=== PATIENT | female | born 1950 | race African-American/Black ===

== ENCOUNTER 2017-09-16 15:17 | Inpatient (IN) | payer MEDICARE ==
[~2017-09-16] VITALS: Ht 157.5 cm; Wt 97.2 kg
[~2017-09-16 15:17] MED LIST: AMLO10TA2 PO; GEMF600T PO; GLIP5TAB8 PO; LISI40TA PO
[2017-09-16 15:18] VITALS: BP 126/63; PULSE 40; PULSE 70; RESP 17; TEMP 97.5; O2SAT 95
[2017-09-16] MEDS ORDERED: SODIUM CHLOR 0.9% 1000 ML INJ 1,000 ML IV ONE ×2 (17:10→20:15)
[2017-09-16] MEDS ORDERED: MORPHINE SULFATE 4 MG/ML INJ IV PUSH ONE ×2 (17:15→18:00)
[2017-09-16] MEDS ORDERED: ONDANSETRON HCL 4 MG/2 ML VIAL IV PUSH ONE (17:15)
--- NOTE | 2017-09-16 17:17 | PD ---
HPI Chief Complaint: Complaint Time Seen by Provider: 17:02 Travel History International Travel<30 days: No Contact w/Intl Traveler<30days: No Traveled to known affect area: No History of Present Illness HPI 67-year-old female that presents to the ED for evaluation of right flank pain and right lower quadrant abdominal pain with dysuria and polyuria. Per patient she's had this since yesterday. She has a history of polynephritis and urinary tract infections. She denies any surgeries to her abdomen. No history of kidney stones. Per patient the pain radiates from the back to the front. Sharp. Taking Tylenol and Motrin with minimal relief. She has a history of diabetes and hypertension. Other medical issues. She states that the pain currently is 7 out of 10. Sharp. Gets worse when urinating. Denies any vaginal discharge or bowel movement issues. States compliance with her diabetic medications. PFSH Past Medical History Arthritis: No Asthma: No Autoimmune Disease: No Blood Disorders: No Anxiety: No Depression: No Heart Rhythm Problems: No Cancer: No Cardiovascular Problems: Yes High Cholesterol: Yes Chemotherapy: No Chest Pain: No Congestive Heart Failure: No COPD: No Cerebrovascular Accident: No Diabetes: Yes Patient Takes Glucophage: Yes Diminished Hearing: No Endocrine: Yes Gastrointestinal Disorders: Yes GERD: No Genitourinary: Yes (ABDOMINAL PAIN PRESENTLY ON LEFT ) Headaches: Yes Hiatal Hernia: No Heparin Induced Thrombocytopen: No Hypertension: Yes Immune Disorder: No Implanted Vascular Access Dvce: No Kidney Stones: No Musculoskeletal: No Neurologic: Yes Psychiatric: No Reproductive: No Respiratory: No Immunizations Current: No Migraines: No Radiation Therapy: No Renal Failure: No Seizures: No Sickle Cell Disease: No Sleep Apnea: No Thyroid Disease: No Ulcer: No ?: Not Menopausal: Yes Past Surgical History Abdominal Surgery: No AICD: No Arteriovenous Shunt: No Cardiac Surgery: No Section: Yes Ear Surgery: No Endocrine Surgery: No Eye Surgery: No Genitourinary Surgery: No Gynecologic Surgery: Yes ( 1990) Insulin Pump: No Joint Replacement: No Neurologic Surgery: No Oral Surgery: No Pacemaker: No Thoracic Surgery: No Other Surgery: Yes (CSECT) Social History Alcohol Use: No Tobacco Use: No Substance Use: No Allergies-Medications (Allergen,Severity, Reaction): Coded Allergies: metformin (Unverified Allergy, Severe, Numbness, 07/12/17) clonidine (Unverified Allergy, Unknown, 07/12/17) *MDRO Multi-Drug Resistant Organism (Verified Adverse Reaction, Unknown, 11/12/16) MRSA (buttock wound) - 11/2014 Reported Meds & Prescriptions Reported Meds & Active Scripts Active Glipizide 5 Mg Tab 5 Mg PO DAILY Take 30 minutes before a meal Lisinopril 40 Mg Tab 40 Mg PO DAILY Amlodipine (Amlodipine Besylate) 10 Mg Tab 10 Mg PO DAILY Gemfibrozil 600 Mg Tab 300 Mg PO BIDAC Take 30 minutes prior to breakfast and dinner. Review of Systems Except as stated in HPI: all other systems reviewed are Neg Physical Exam Narrative GENERAL: SKIN: Warm and dry. HEAD: Atraumatic. Normocephalic. EYES: Pupils equal and round. No scleral icterus. No injection or drainage. ENT: No nasal bleeding or discharge. Mucous membranes pink and moist. Tongue is midline. No uvula deviation. NECK: Trachea midline. No JVD. CARDIOVASCULAR: Regular rate and rhythm. No murmurs, S3, S4. RESPIRATORY: No accessory muscle use. Clear to auscultation. Breath sounds equal bilaterally. GASTROINTESTINAL: Abdomen soft, non-tender, nondistended. Hepatic and splenic margins not palpable. MUSCULOSKELETAL: Extremities without clubbing, cyanosis, or edema. No obvious deformities. Full range of motion of the upper and lower extremities bilaterally. 2+ pulses bilaterally. 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 NEUROLOGICAL: Awake and alert. No obvious cranial nerve deficits. Motor grossly within normal limits. Five out of 5 muscle strength in the arms and legs. Normal speech. PSYCHIATRIC: Appropriate mood and affect; insight and judgment normal. Data Data Last Documented VS Vital Signs Date Time Temp Pulse Resp B/P (MAP) Pulse Ox O2 Delivery O2 Flow Rate FiO2 09/16/17 17:09 89 18 09/16/17 15:18 97.5 126/63 (84) 95 Orders Orders Complete Blood Count With Diff (09/16/17 17:10) Comprehensive Metabolic Panel (09/16/17 17:10) Urinalysis - C+S If Indicated (09/16/17 17:10) Ecg Monitoring (09/16/17 17:10) Iv Access Insert/Monitor (09/16/17 17:10) Morphine Inj (Morphine Inj) (09/16/17 17:15) Ondansetron Inj (Zofran Inj) (09/16/17 17:15) Sodium Chlor 0.9% 1000 Ml Inj (Ns 1000 M (09/16/17 17:10) Lipase (09/16/17 17:10) Ct Abd/Pel W/O Iv Contrast (09/16/17 ) Labs Laboratory Tests Test 09/16/17 17:22 White Blood Count 19.2 TH/MM3 Red Blood Count 3.85 MIL/MM3 Hemoglobin 11.4 GM/DL Hematocrit 34.8 % Mean Corpuscular Volume 90.5 FL Mean Corpuscular Hemoglobin 29.7 PG Mean Corpuscular Hemoglobin Concent 32.8 % Red Cell Distribution Width 13.3 % Platelet Count 275 TH/MM3 Mean Platelet Volume 8.2 FL Neutrophils (%) (Auto) 94.2 % Lymphocytes (%) (Auto) 3.5 % Monocytes (%) (Auto) 1.5 % Eosinophils (%) (Auto) 0.4 % Basophils (%) (Auto) 0.4 % Neutrophils # (Auto) 18.1 TH/MM3 Lymphocytes # (Auto) 0.7 TH/MM3 Monocytes # (Auto) 0.3 TH/MM3 Eosinophils # (Auto) 0.1 TH/MM3 Basophils # (Auto) 0.1 TH/MM3 CBC Comment AUTO DIFF Differential Total Cells Counted 100 Neutrophils % (Manual) 54 % Band Neutrophils % 35 % Lymphocytes % 4 % Monocytes % 1 % Neutrophils # (Manual) 18.2 TH/MM3 Metamyelocytes 5 % Myelocytes 1 % Differential Comment FINAL DIFF MANUAL Toxic Granulation 1+ Toxic Vacuolation Dohle Bodies PRESENT Platelet Estimate NORMAL Platelet Morphology Comment NORMAL Urine Color BROWN Urine Turbidity CLOUDY Urine pH 5.5 Urine Specific [place] 1.028 Urine Protein 100 mg/dL Urine Glucose (UA) 70 mg/dL Urine Ketones NEG mg/dL Urine Occult Blood MOD Urine Nitrite POS Urine Bilirubin NEG Urine Urobilinogen LESS THAN 2.0 MG/DL Urine Leukocyte Esterase LARGE Urine RBC 33 /hpf Urine WBC /hpf Urine WBC Clumps FEW Urine Squamous Epithelial Cells 8 /hpf Urine Bacteria FEW /hpf Microscopic Urinalysis Comment CULTURE INDICATED Blood Urea Nitrogen 49 MG/DL Creatinine 2.88 MG/DL Random Glucose 579 MG/DL Total Protein 7.4 GM/DL Albumin 2.5 GM/DL Calcium Level 9.4 MG/DL Alkaline Phosphatase 168 U/L Aspartate Amino Transf (AST/SGOT) 40 U/L Alanine Aminotransferase (ALT/SGPT) 33 U/L Total Bilirubin 0.3 MG/DL Sodium Level 127 MEQ/L Potassium Level 4.3 MEQ/L Chloride Level 91 MEQ/L Carbon Dioxide Level 22.5 MEQ/L Anion Gap 14 MEQ/L Estimat Glomerular Filtration Rate 20 ML/MIN Lipase 128 U/L MDM Medical Decision Making Medical Screen Exam Complete: Yes Emergency Medical Condition: Yes Medical Record Reviewed: Yes Interpretation(s) CBC & BMP Diagram 09/16/17 17:22 Total Protein 7.4, Albumin 2.5 L, Calcium Level 9.4, Alkaline Phosphatase 168 H , Aspartate Amino Transf (AST/SGOT) 40 H, Alanine Aminotransferase (ALT/SGPT) 33 , Total Bilirubin 0.3 Last Impressions Abdomen/Pelvis CT 09/16/17 0000 Signed Impressions: Service Date/Time: Saturday, September 16, 2017 17:27 - CONCLUSION: 1. 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 No obstructing stone or mass observed. Air is seen throughout the right kidney parenchyma, collecting system, and into the renal vein. A small amount of air is seen involving the upper pole of the left kidney near the hilum likely extension from air within the inferior vena cava. There is mild hydronephrosis and hydroureter on the right. No obstruction on the left. Corey Millan Jr., MD UA shows UTI Differential Diagnosis Pyelonephritis versus kidney stone versus UTI versus less likely appendicitis Narrative Course 67-year-old female that presents to the ED for evaluation of right flank pain. Patient was properly examined and was found to have signs and symptoms consistent with appears to be possible kidney stone. Labs and imaging were ordered. Patient was given IV pain medications and fluids. Labs and imaging showed UTI what appears to be pyelonephritis. I go called by Dr. Millan for radiology who was concerned about possible gangrene of the tinea recommend a urology consult. I spoke with Dr. Ramirez who agrees to see the patient while the patient is admitted. Patient was admitted to residents who agrees to admission. Patient was started IV antibiotics as per my attending Dr Reese's recommendations. Patient was given IV fluids as well as subcutaneous insulin for her elevated blood sugars. Sepsis Criteria SIRS Criteria (2 or more): WBC > 52093, < 4000 or > 10% bands Diagnosis Primary Impression: Pyelonephritis Additional Impressions: Diabetes mellitus Leukocytosis Qualified Codes: D72.825 - Bandemia Sepsis Qualified Codes: A41.9 - Sepsis, unspecified organism Admitting Information Admitting Physician Requests: Admit Manny Macario Sep 16, 2017 17:17
[2017-09-16 17:35] LABS: AUTOMATED NEUTROPHIL # 18.1 TH/MM3 (1.8-7.7); BASOPHIL # 0.1 TH/MM3 (0-0.2); BASOPHIL % 0.4 % (0.0-2.0); EOSINOPHIL # 0.1 TH/MM3 (0-0.4); EOSINOPHIL % 0.4 % (0.0-4.0); HEMATOCRIT 34.8 % (35.0-46.0); LYMPH % 3.5 % (9.0-44.0); LYMPHOCYTE # 0.7 TH/MM3 (1.0-4.8); MEAN CELL VOLUME 90.5 FL (80.0-100.0); MEAN CORPUSCULAR HEMOGLOBIN 29.7 PG (27.0-34.0); MEAN CORPUSCULAR HGB CONC 32.8 % (32.0-36.0); MONO % 1.5 % (0.0-8.0); NEUT % 94.2 % (16.0-70.0); PLATELET COUNT 275 TH/MM3 (150-450); RED BLOOD COUNT 3.85 MIL/MM3 (4.00-5.30); RED CELL DISTRIBUTION WIDTH 13.3 % (11.6-17.2); WHITE BLOOD COUNT 19.2 TH/MM3 (4.0-11.0)
[2017-09-16 17:39] LABS: HEMO FLAGS AUTO DIFF
[2017-09-16 17:40] LABS: BACTERIA, URINE FEW /hpf; BLOOD, URINE MOD (NEG); COMMENT (UR) CULTURE INDICATED; CULTURE IF INDICATED CULTURE INDICATED; GLUCOSE,URINE 70 mg/dL (NEG); KETONE, URINE NEG (NEG); NITRITE,URINE POS (NEG); PH, URINE 5.5 (5.0-8.5); SQUAMOUS EPITHELIAL CELL URINE 8 /hpf (0-5)
[2017-09-16 18:00] LABS: URINE COLOR BROWN (YELLW/STRAW)
[2017-09-16] MEDS ORDERED: AMPICILLIN-SULBACTAM INJ 3 GM in SODIUM CHLORIDE 0.9% INJ 100 ML IV ONE (18:00)
--- NOTE | 2017-09-16 18:00 | RADRPT ---
EXAM DATE/TIME: 09/16/2017 17:27 [facility] COMPARISON: No previous studies available for comparison. INDICATIONS : Abdominal pain, painful urination. ORAL CONTRAST: No oral contrast ingested. RADIATION DOSE: 8.96 CTDIvol (mGy) MEDICAL HISTORY : Cardiovascular disease. Diabetes SURGICAL HISTORY : None. ENCOUNTER: Initial ACUITY: 1 day PAIN SCALE: 8/10 LOCATION: Right abdominal. TECHNIQUE: Volumetric scanning of the abdomen and pelvis was performed. Using automated exposure control and ad justment of the mA and/or kV according to patient size, radiation dose was kept as low as reasonably achievable to obtain optimal diagnostic quality images. DICOM format image data is available electro nically for review and comparison. FINDINGS: LOWER LUNGS: The visualized lower lungs are clear. LIVER: Homogeneous density without lesion. There is no dilation of the biliary tree. No calcified gallston es. SPLEEN: Normal size without lesion. PANCREAS: Within normal limits. KIDNEYS: The right kidney is enlarged. Air is seen throughout the parenchyma as well as the collecting system. Air is also seen extending into the renal vein reaching the level of the IVC. There is mild strandin g in the adjacent fat surrounding the right kidney. Mild hydronephrosis and hydroureter. No obstructi ng lesion is seen. No obstructing stone. A trace amount of air is seen involving the hilum of the lef t kidney. No air within the parenchyma of the left kidney. No stones involving either kidney. ADRENAL GLANDS: Within normal limits. VASCULAR: There is no aortic aneurysm. BOWEL/MESENTERY: The stomach, small bowel, and colon demonstrate no acute abnormality. There is no free intraperitone al air or fluid. ABDOMINAL WALL: Within normal limits. RETROPERITONEUM: There is no lymphadenopathy. BLADDER: No wall thickening or mass. No stones or air within the lumen. REPRODUCTIVE: Within normal limits. The uterus is anteverted. INGUINAL: There is no lymphadenopathy or hernia. MUSCULOSKELETAL: Within normal limits for patient age. CONCLUSION: 1. 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 No obstructing stone or mass observed . Air is seen throughout the right kidney parenchyma, collecting system, and into the renal vein. A s mall amount of air is seen involving the upper pole of the left kidney near the hilum likely extensio n from air within the inferior vena cava. There is mild hydronephrosis and hydroureter on the right. No obstruction on the left. Corey Millan Jr., MD on September 16, 2017 at 17:45 Board Certified Radiologist. This report was verified electronically.
[2017-09-16 18:13] LABS: ALKALINE PHOSPHATASE 168 U/L (45-117); ALT (GPT) 33 U/L (10-53); ANION GAP 14 MEQ/L (5-15); AST (GOT) 40 U/L (15-37); BICARBONATE 22.5 MEQ/L (21.0-32.0); BLOOD UREA NITROGEN 49 MG/DL (7-18); CHLORIDE 91 MEQ/L (98-107); GLOMERULAR FILTRATION RATE 20 ML/MIN (>89); POTASSIUM 4.3 MEQ/L (3.5-5.1); SODIUM (NA) 127 MEQ/L (136-145); TOTAL BILIRUBIN ADULT 0.3 MG/DL (0.2-1.0)
[2017-09-16 18:23] LABS: BANDS 35 % (0-6); METAMYELOCYTES 5 % (0-1); MYELOCYTES 1 % (0-0); NEUTROPHIL # MANUAL DIFF 18.2 TH/MM3 (1.8-7.7); POLYS (SEG NEUTROPHILS) 54 % (16-70); WBC DIFF SAMPLE 100
[2017-09-16 18:24] LABS: DOHLE BODIES PRESENT (NONE SEEN); PLATELET ESTIMATE SMEAR NORMAL (NORMAL); PLATELET MORPHOLOGY NORMAL (NORMAL); SCAN/DIFF FINAL DIFF MANUAL; TOXIC GRANULATION 1+ (NORMAL)
[2017-09-16] MEDS ORDERED: SODIUM CHLOR 0.9% 1000 ML INJ 1,000 ML IV SCH (18:34)
[2017-09-16] MEDS ORDERED: INSULIN HUMAN REGULAR 1,000 UNITS/10 ML VIAL SQ ONE (18:45)
[2017-09-16 19:01] VITALS: BP 117/62; PULSE 67; RESP 18; O2SAT 98
[2017-09-16] MEDS ORDERED: SODIUM CHLORIDE 0.9% FLUSH 10 ML FLUSH IV FLUSH PRN (19:30)
[2017-09-16] MEDS ORDERED: ECASA81 PO (19:36)
[2017-09-16 19:47] LABS: INTERNATIONAL NORMALIZED RATIO 1.1 RATIO
[2017-09-16 20:00] VITALS: PULSE 72
[2017-09-16] MEDS: CEFEPIME INJ 1,000 MG in SODIUM CHLORIDE 0.9% INJ 100 ML IV SCH (20:03)
[2017-09-16] MEDS ORDERED: GLUCAGON 1 MG/ML VIAL OTHER PRN (20:15)
[2017-09-16] MEDS ORDERED: ONDANSETRON HCL 4 MG/2 ML VIAL IV PUSH PRN (20:15)
[2017-09-16] MEDS ORDERED: DEXTROSE 50% IN WATER 50 ML VIAL(D50) IV PUSH PRN (20:15)
[2017-09-16] MEDS ORDERED: NALOXONE HCL 0.4 MG/ML AMP IV PUSH PRN (20:15)
[2017-09-16 20:30] VITALS: BP 130/60; PULSE 73; RESP 19; TEMP 97.6; O2SAT 95
--- NOTE | 2017-09-16 20:31 | HHI.HP ---
HPI Service Family Medicine Primary Care Physician Unknown Admission Diagnosis peritonsillar abscess, sepsis Diagnoses: International Travel<30 Days: No Contact w/Intl Traveler<30days: No Known Affected Area: No History of Present Illness 67-year-old female with history of poorly controlled diabetes, hypertension presenting with a 2 day history of right-sided abdominal pain. Pain started 2 days ago and was quite severe. She's been taking 2 extra strength Tylenol about every 4 hours as well as ibuprofen extra strength every 6 hours. To keep her pain under good control. She also had 2 episodes of nonbloody, nonbilious vomiting yesterday and 4 episodes today. Her abdominal pain was associated with fevers and chills with a maximum temperature of 101-102 as well as dysuria and urinary frequency. She denies bloody stool, change in stool pattern, incontinence, chest pain, shortness of breath. She has been taking her diabetes medicines as prescribed, but her blood sugar has been ranging in the 200s to 300s at home. She has no history of urinary tract infection, kidney stones, or pyelonephritis. Review of Systems Constitutional: COMPLAINS OF: Fever, Chills Endocrine: DENIES: Heat/cold intolerance Eyes: DENIES: Eye pain, Vision loss Ears, nose, mouth, throat: DENIES: Throat pain, Ear Pain Respiratory: DENIES: Cough, Wheezing, Sputum production, Shortness of breath Cardiovascular: DENIES: Chest pain, Palpitations Gastrointestinal: COMPLAINS OF: Abdominal pain, Nausea, Vomiting, DENIES: Black stools, Bloody stools, Constipation, Diarrhea Genitourinary: COMPLAINS OF: Urinary frequency, Dysuria, DENIES: Abnormal vaginal bleeding, Urinary incontinence, Urgency, Hematuria Musculoskeletal: DENIES: Joint pain, Muscle aches Integumentary: DENIES: Rash Hematologic/lymphatic: DENIES: Bruising Immunologic/allergic: DENIES: Urticaria Neurologic: DENIES: Headache, Localized weakness Psychiatric: DENIES: Confusion, Mood changes Past Family Social History Past Medical History Diabetes HTN Hypertriglyceridemia Past Surgical History C section (1990) Reported Medications Reported Meds & Active Scripts Active Glipizide 5 Mg Tab 5 Mg PO DAILY Take 30 minutes before a meal Lisinopril 40 Mg Tab 40 Mg PO DAILY Amlodipine (Amlodipine Besylate) 10 Mg Tab 10 Mg PO DAILY Gemfibrozil 600 Mg Tab 300 Mg PO BIDAC Take 30 minutes prior to breakfast and dinner. Reported Aspirin DR (Aspirin) 81 Mg Tabdr 81 Mg PO DAILY Allergies: Coded Allergies: metformin (Unverified Allergy, Severe, Numbness, 07/12/17) clonidine (Unverified Allergy, Unknown, 07/12/17) *MDRO Multi-Drug Resistant Organism (Verified Adverse Reaction, Unknown, 11/12/16) MRSA (buttock wound) - 11/2014 Active Ordered Medications Current Medications Medications (Trade) Dose Ordered Sig/Alisha Route Start Time Stop Time Status Last Admin Cefepime HCl 1000 mg/Sodium Chloride 100 ml @ 200 mls/hr Q12H IV 09/16/17 20:00 09/16/17 20:03 (NS Flush) 2 ml UNSCH PRN IV FLUSH 09/16/17 19:30 (NS Flush) 2 ml BID IV FLUSH 09/16/17 21:00 (Norvasc) 10 mg DAILY PO 09/17/17 09:00 (Lopid) 300 mg BIDAC PO 09/17/17 07:00 (Prinivil) 40 mg DAILY PO 09/17/17 09:00 (Ecotrin Ec) 81 mg DAILY PO 09/17/17 09:00 Sodium Chloride 1,000 ml @ 999 mls/hr BOLUS ONCE IV 09/16/17 20:15 09/16/17 21:15 Sodium Chloride 1,000 ml @ 125 mls/hr Q8H IV 09/16/17 20:15 (Tylenol) 650 mg Q6HR PO 09/17/17 00:00 (Roxicodone) 5 mg Q6H PRN PO 09/16/17 20:15 (Roxicodone) 10 mg Q6H PRN PO 09/16/17 20:15 (Narcan Inj) 0.4 mg UNSCH X1 PRN IV PUSH 09/16/17 20:15 10/16/17 20:14 (Zofran Inj) 4 mg Q8HR PRN IV PUSH 09/16/17 20:15 (Levemir Inj) 10 units Q12HR SQ 09/16/17 21:00 (NovoLOG INJ) 8 units TIDAC SQ 09/17/17 08:00 (D50w (Vial) Inj) 50 ml UNSCH PRN IV PUSH 09/16/17 20:15 (Glucagon Inj) 1 mg UNSCH PRN OTHER 09/16/17 20:15 (NovoLOG SUPPLEMENTAL SCALE) 1 ACHS SLIDING SCALE SQ 09/16/17 21:00 (Heparin Inj) 5,000 units Q8HR SQ 09/16/17 22:00 Family History Mom: DM, HTN ( 1998- dialysis) Dad: CAD, CABG, (1987-he was 69 years old) Social History for 29 years. Lives at home with her . Never smoker. Does not drink EtOH. No illicit drug use. Physical Exam Vital Signs Vital Signs Date Time Temp Pulse Resp B/P (MAP) Pulse Ox O2 Delivery O2 Flow Rate FiO2 09/16/17 19:01 67 18 117/62 (80) 98 Nasal Cannula 2.00 09/16/17 17:09 89 18 09/16/17 15:18 97.5 70 17 126/63 (84) 95 Physical Exam GENERAL: Well-developed, well-nourished short tanned elderly white female lying in bed appearing uncomfortable but in no acute distress SKIN: No rashes, ecchymoses or lesions. Cool and dry. HEAD: NC/AT EYES: PERRL. EOMI. No conjunctival injection or drainage. ENT: MMM, OP without erythema, tonsillar swelling, or exudate. NECK: Supple, no lymphadenopathy. No JVD. CARDIOVASCULAR: NRRR. Normal S1/S2. No MRG RESPIRATORY: CTAB. No crackles or wheezes. GASTROINTESTINAL: Abdomen soft, non-distended, tender to palpation in right lower quadrant, right flank. No rebound tenderness. Slight voluntary guarding. No hepato-splenomegaly or palpable masses. GENITOURINARY: CVA tenderness on the right side MUSCULOSKELETAL: Extremities without clubbing, cyanosis, or edema. NEUROLOGICAL: Awake and alert. Cranial nerves II through XII grossly intact. Moves all extremities without difficulty. Normal speech. Laboratory Laboratory Tests Test 09/16/17 17:22 09/16/17 18:12 09/16/17 19:00 White Blood Count 19.2 Red Blood Count 3.85 Hemoglobin 11.4 Hematocrit 34.8 Mean Corpuscular Volume 90.5 Mean Corpuscular Hemoglobin 29.7 Mean Corpuscular Hemoglobin Concent 32.8 Red Cell Distribution Width 13.3 Platelet Count 275 Mean Platelet Volume 8.2 Neutrophils (%) (Auto) 94.2 Lymphocytes (%) (Auto) 3.5 Monocytes (%) (Auto) 1.5 Eosinophils (%) (Auto) 0.4 Basophils (%) (Auto) 0.4 Neutrophils # (Auto) 18.1 Lymphocytes # (Auto) 0.7 Monocytes # (Auto) 0.3 Eosinophils # (Auto) 0.1 Basophils # (Auto) 0.1 CBC Comment AUTO DIFF Differential Total Cells Counted 100 Neutrophils % (Manual) 54 Band Neutrophils % 35 Lymphocytes % 4 Monocytes % 1 Neutrophils # (Manual) 18.2 Metamyelocytes 5 Myelocytes 1 Differential Comment FINAL DIFF MANUAL Toxic Granulation 1+ Toxic Vacuolation Dohle Bodies PRESENT Platelet Estimate NORMAL Platelet Morphology Comment NORMAL Urine Color BROWN Urine Turbidity CLOUDY Urine pH 5.5 Urine Specific [place] 1.028 Urine Protein 100 Urine Glucose (UA) 70 Urine Ketones NEG Urine Occult Blood MOD Urine Nitrite POS Urine Bilirubin NEG Urine Urobilinogen LESS THAN 2.0 Urine Leukocyte Esterase LARGE Urine RBC 33 Urine WBC Urine WBC Clumps FEW Urine Squamous Epithelial Cells 8 Urine Bacteria FEW Microscopic Urinalysis Comment CULTURE INDICATED Blood Urea Nitrogen 49 Creatinine 2.88 Random Glucose 579 Total Protein 7.4 Albumin 2.5 Calcium Level 9.4 Alkaline Phosphatase 168 Aspartate Amino Transf (AST/SGOT) 40 Alanine Aminotransferase (ALT/SGPT) 33 Total Bilirubin 0.3 Sodium Level 127 Potassium Level 4.3 Chloride Level 91 Carbon Dioxide Level 22.5 Anion Gap 14 Estimat Glomerular Filtration Rate 20 Lipase 128 Lactic Acid Level 3.1 Prothrombin Time 12.0 Prothromb Time International Ratio 1.1 Date/Time Source Procedure Growth Status 09/16/17 18:02 Blood Peripheral Aerobic Blood Culture Pending Received 09/16/17 18:02 Blood Peripheral Anaerobic Blood Culture Pending Received 09/16/17 17:22 Urine Clean Catch Urine Culture Pending Worksheet Result Diagram: 09/16/17 1722 09/16/17 1722 Imaging Last Impressions Abdomen/Pelvis CT 09/16/17 0000 Signed Impressions: Service Date/Time: Saturday, September 16, 2017 17:27 - CONCLUSION: 1. 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 No obstructing stone or mass observed. Air is seen throughout the right kidney parenchyma, collecting system, and into the renal vein. A small amount of air is seen involving the upper pole of the left kidney near the hilum likely extension from air within the inferior vena cava. There is mild hydronephrosis and hydroureter on the right. No obstruction on the left. MD Mahesh Diaz Jr. VTE Risk Assessment Caprini VTE Risk Assessment: Mod/High Risk (score >= 2) Caprini Risk Assessment Model Point Value = 1 Point Value = 2 Point Value = 3 Point Value = 5 Age 41-60 Minor surgery BMI > 25 kg/m2 Swollen legs Varicose veins or History of unexplained or recurrent spontaneous Oral contraceptives or hormone replacement Sepsis (< 1 month) Serious lung disease, including pneumonia (< 1 month) Abnormal pulmonary function Acute myocardial infarction Congestive heart failure (< 1 month) History of inflammatory bowel disease Medical patient at bed rest Age 61-74 Arthroscopic surgery Major open surgery (> 45 min) Laparoscopic surgery (> 45 min) Malignancy Confined to bed (> 72 hours) Immobilizing plaster cast Central venous access Age >= 75 History of VTE Family history of VTE Factor V Leiden Prothrombin [id number] Lupus anticoagulant Anticardiolipin antibodies Elevated serum homocysteine Heparin-induced thrombocytopenia Other congenital or acquired thrombophilia Stroke (< 1 month) Elective arthroplasty Hip, pelvis, or leg fracture Acute spinal cord injury (< 1 month) Prophylaxis Regimen Total Risk Factor Score Risk Level Prophylaxis Regimen 0-1 Low Early ambulation 2 Moderate Order ONE of the following: *Sequential Compression Device (SCD) *Heparin 5000 units SQ BID 3-4 Higher Order ONE of the following medications: *Heparin 5000 units SQ TID *Enoxaparin/Lovenox 40 mg SQ daily (WT < 150 kg, CrCl > 30 mL/min) *Enoxaparin/Lovenox 30 mg SQ daily (WT < 150 kg, CrCl > 10-29 mL/min) *Enoxaparin/Lovenox 30 mg SQ BID (WT < 150 kg, CrCl > 30 mL/min) AND/OR *Sequential Compression Device (SCD) 5 or more Highest Order ONE of the following medications: *Heparin 5000 units SQ TID (Preferred with Epidurals) *Enoxaparin/Lovenox 40 mg SQ daily (WT < 150 kg, CrCl > 30 mL/min) *Enoxaparin/Lovenox 30 mg SQ daily (WT < 150 kg, CrCl > 10-29 mL/min) *Enoxaparin/Lovenox 30 mg SQ BID (WT < 150 kg, CrCl > 30 mL/min) AND *Sequential Compression Device (SCD) Assessment and Plan Assessment and Plan 67-year-old female with uncontrolled diabetes and hypertension presenting with: Problem List: (1) Severe sepsis ICD Codes: A41.9 - Sepsis, unspecified organism; R65.20 - Severe sepsis without septic shock Status: Acute Plan: Patient meeting severe sepsis criteria due to leukocytosis, reported elevated temperature at home, and acute kidney injury with lactic acid of 3.[address] exam findings and urinalysis results noted above Status post 1 L bolus of IV normal saline - Repeat lactic acid in 2 hours per sepsis protocol - Given additional 1 L bolus normal saline - IV normal saline at 125 mL/h - Cefepime dosed renally 1 g twice a day for emphysematous pyelonephritis - Urology consult due to emphysematous pyelonephritis for consideration of nephrostomy placement to drain infection - Follow up blood and urine cultures - Repeat CBC, CMP in the morning (2) Emphysematous pyelonephritis ICD Codes: N12 - Tubulo-interstitial nephritis, not specified as acute or chronic Status: Acute Plan: Meeting sepsis criteria, see above - Cefepime as above for antibiotic coverage - Tylenol 650 mg every 6 hours scheduled while awake - Oxycodone 5 and 10 mg every 6 hours for pain scale 3-5 or 6-10, respectively - Zofran 4 mg IV every 8 hours as needed for nausea and vomiting - Control diabetes as below (3) Acute kidney injury ICD Codes: N17.9 - Acute kidney failure, unspecified Status: Acute Plan: Creatinine of 2.88 increased from baseline of about 0.5. Likely due to severe sepsis from urinary source. - IV fluids as above - Trend creatinine daily (4) Diabetes mellitus ICD Codes: E11.9 - Type 2 diabetes mellitus without complications Status: Chronic Plan: Important control at home, glucose running 200s to 300s per patient, greater than 500 on admission No evidence of DKA - Insulin Levemir 10 units twice a day - Insulin aspart 8 units 3 times a day before meals - Medium dose insulin aspart sliding scale with meals - Glucose checks before meals and at bedtime - Diet full liquid with advancement to 2200 ADA consistent carbohydrate patient tolerating well - Consult departmental buyer - Consult case management to assess possible reasons for poor compliance and attendance at office visits (5) Hypertension Status: Chronic Plan: Blood pressure within normal limits on admission - Continue home lisinopril and amlodipine (6) Dyslipidemia ICD Codes: E78.5 - Dyslipidemia Status: Chronic Plan: Continue home fibrate and aspirin (7) FEN/PPX Plan: Fluids: As noted above Electrolytes: Monitor and replete as needed Nutrition: Diet as above for diabetes DVT: Heparin 5000 units subcutaneous 3 times a day CODE STATUS: Full code Physician Certification 2 Midnight Certification Type: Admission for Inpatient Services Order for Inpatient Services The services are ordered in accordance with Medicare regulations or non- Medicare payer requirements, as applicable. In the case of services not specified as inpatient-only, they are appropriately provided as inpatient services in accordance with the 2-midnight benchmark. Estimated LOS (days): 2 days is the estimated time the patient will need to remain in the hospital, assuming treatment plan goals are met and no additional complications. Post-Hospital Plan: Home Kirit Vega MD R2 Sep 16, 2017 20:31
[2017-09-16 20:35] VITALS: BP 121/59
[2017-09-16] MEDS: INSULIN DETEMIR 100 UNITS/ML VIAL SQ SCH (21:11)
[2017-09-16] MEDS: SODIUM CHLORIDE 0.9% FLUSH 10 ML FLUSH IV FLUSH SCH (21:12)
[2017-09-16] MEDS: HEPARIN SODIUM - SQ 10,000 UNITS/ML VIAL SQ SCH (21:13)
[2017-09-16] MEDS: INSULIN ASPART SUPPLEMENTAL SCALE SQ SCH (21:26)
[2017-09-16] MEDS: SODIUM CHLOR 0.9% 1000 ML INJ 1,000 ML IV SCH (21:29)
--- NOTE | 2017-09-16 21:32 | MB ---
cc: LUCIA HUTCHINSON MD DATE OF CONSULTATION 09/16/2017 REASON FOR CONSULTATION 1. Right emphysematous pyelonephritis. 2. Right flank pain. HISTORY OF PRESENT ILLNESS The patient is a 67-year-old Afro-[place] female with history of diabetes, presented to the ED for evaluation of sharp stabbing severe right flank pain radiating to her right lower quadrant for the last 3 days. The pain at its worst was 10/10 in intensity, associated with nausea, vomiting, dysuria and urinary frequency. In the ER she was found to have a white count of 19,000 and a urinary tract infection. Due to the right flank pain she had a CT abdomen and pelvis without contrast done which showed a significant amount of air in the right renal parenchyma and renal pelvis with some air in the IVC and extending in the left renal vein consistent with emphysematous pyelonephritis. She was started on IV antibiotics. Urology was consulted. The patient currently states her pain is slightly better, it is a 9/10 but still having sharp stabbing right upper quadrant pain radiating to her right flank. She has had urinary tract infection in the past but not as severe as this one. Currently she denies fevers or chills or blood in her urine. She denies a history of kidney stones. She denies any previous surgery on her urinary tract. She states her diabetes is well-controlled although in the ER glucose was found to be 579. PAST MEDICAL HISTORY Significant for coronary artery disease, diabetes, hypertension, recurrent urinary tract infections. PAST SURGICAL HISTORY She has had a back in 1990. ALLERGIES METFORMIN AND CLONIDINE. HOME MEDICATIONS 1. Glipizide 5 milligrams p.o. daily. 2. Lisinopril 40 milligrams p.o. daily. 3. Norvasc 10 milligrams p.o. daily. 4. Gemfibrozil 300 milligrams p.o. twice a day. FAMILY HISTORY Denies urolithiasis or genitourinary malignancies. SOCIAL HISTORY Denies smoking, alcohol or illicit drugs. REVIEW OF SYSTEMS See HPI otherwise all systems reviewed, otherwise were negative. PHYSICAL EXAMINATION VITAL SIGNS: Her temperature is 97.5, pulse 67, respiratory 18, BP 117/62, satting 98% on 2 liters of oxygen nasal cannula. GENERAL: In general, she is alert and oriented x3. No apparent distress. Pleasant cooperative female who appears her stated age. HEAD: Head is normocephalic, atraumatic. EYES: No scleral icterus. External extraocular muscles intact. NECK: Supple. Trachea is midline. No JVD. SKIN: No ulcers or rashes. [place] and moist. LUNGS: Clear to auscultation bilaterally. No wheezes, rales or rhonchi. HEART: Regular rhythm. No murmurs, gallops or rubs. ABDOMEN: Soft with some tenderness in the right upper quadrant with no guarding or rigidity. The abdomen is slightly distended with no evidence of any abdominal scarring. GENITOURINARY: She has right CVA tenderness. PELVIC: Examination not ___ at this time. EXTREMITIES: Nontender. No clubbing, cyanosis or edema. PSYCH: Normal affect. NEUROLOGIC: Cranial nerves II-XII intact. Muscles, full range of motion of all four extremities. Strength at 5/5 on all four extremities. LABORATORY DATA Labs show a white count 19.2, hemoglobin 11.4, hematocrit 34.8, platelet count 275, sodium 127, potassium 4.3, chloride 91, bicarb 22.5, BUN 49, creatinine 2.88, glucose 579, lactic acid 3.1. Her urine showed positive nitrate, moderate blood, large leukocyte esterase with glucose present. Her INR was 1.1. IMAGING STUDIES CT abdomen/pelvis without contrast images reviewed. Agree with radiologist report. The patient has a right emphysematous pyelonephritis with mild hydronephrosis. No obvious kidney stones. ASSESSMENT The patient is a 67-year-old female with history of diabetes who presents with right flank pain and white count 19,000. Found to have air in her right kidney consistent with emphysematous pyelonephritis. PLAN On review her CT is appears she has a grade 2 to 3 of emphysematous pyelonephritis which is very serious, potential life-threatening infection, often resulting in a nephrectomy if it does not respond to conservative therapy. Discussed with the interventional radiologist, Dr. Roddy Rose, this evening about placing percutaneous nephrostomy tube initially to help drain the right kidney. However, he thinks due to the amount of air in that kidney it would be a very difficult and also impossible to place a nephrostomy tube at this time. He thought it may be possible to place a nephrostomy tube after placing a stent as the stent could be used to localize the renal pelvis. Therefore, I think it is a reasonable option. We will set her up for cystoscopy, right retrograde pyelogram, right ureteral stent insertion as the first part in draining that right kidney. However, she likely will also need a nephrostomy tube as well following stent placements for maximal drainage. If she does not respond following drainage of the this kidney then she likely will need her right kidney removed. I had a long discussion with the patient regarding this critical situation and she agrees with the above plan. Will make her n.p.o. after midnight and will start her on Cefepime 1 gram IV q. 12 hours and monitor very closely. She will also need to improve her blood sugar control which we will defer to the medicine team. Thank you for this consultation. Lucia Hutchinson MD EMAbigail/ALLYSON /8:22 PM /9:02 PM
[2017-09-16] MEDS: ACETAMINOPHEN 325 MG TAB PO SCH (23:47)
[2017-09-17] VITALS (9 sets, daily range): BP systolic 108–140; BP diastolic 58–63; PULSE 65–93; RESP 18–19; TEMP 97.4–98.5; O2SAT 94–98
[2017-09-17] MEDS: SODIUM CHLOR 0.9% 1000 ML INJ 1,000 ML IV SCH ×3 (03:59→20:38)
[2017-09-17] MEDS ORDERED: LACTATED RINGER'S 1000 ML IV PRN (04:45)
[2017-09-17] MEDS ORDERED: POVIDONE IODINE 5% (ANTISEPSIS KIT) 4 APPLICATIONS EACH NARE PRN (04:45)
[2017-09-17] MEDS ORDERED: CHLORHEXIDINE GLUCONATE 2 % 1 PACK (2 CLOTHS) TOPICAL PRN (04:45)
[2017-09-17] MEDS ORDERED: METOPROLOL TARTRATE 25 MG TAB PO PRN (04:45)
[2017-09-17] MEDS ORDERED: SODIUM CHLORID 0.9% 500 ML IV PRN (04:45)
[2017-09-17] MEDS: HEPARIN SODIUM - SQ 10,000 UNITS/ML VIAL SQ SCH ×3 (05:49→20:39)
[2017-09-17] MEDS: ACETAMINOPHEN 325 MG TAB PO SCH ×4 (05:49→23:48)
[2017-09-17] MEDS: GEMFIBROZIL 600 MG TAB PO SCH ×2 (05:50→17:25)
[2017-09-17 07:09] LABS: AUTOMATED NEUTROPHIL # 16.9 TH/MM3 (1.8-7.7); BASOPHIL # 0.1 TH/MM3 (0-0.2); BASOPHIL % 0.5 % (0.0-2.0); EOSINOPHIL # 0.8 TH/MM3 (0-0.4); EOSINOPHIL % 4.2 % (0.0-4.0); HEMATOCRIT 30.1 % (35.0-46.0); LYMPH % 5.4 % (9.0-44.0); LYMPHOCYTE # 1.1 TH/MM3 (1.0-4.8); MEAN CELL VOLUME 88.1 FL (80.0-100.0); MEAN CORPUSCULAR HEMOGLOBIN 29.4 PG (27.0-34.0); MEAN CORPUSCULAR HGB CONC 33.4 % (32.0-36.0); MONO % 3.4 % (0.0-8.0); NEUT % 86.5 % (16.0-70.0); PLATELET COUNT 248 TH/MM3 (150-450); RED BLOOD COUNT 3.42 MIL/MM3 (4.00-5.30); RED CELL DISTRIBUTION WIDTH 13.5 % (11.6-17.2); WHITE BLOOD COUNT 19.5 TH/MM3 (4.0-11.0)
[2017-09-17 07:11] LABS: HEMO FLAGS AUTO DIFF
[2017-09-17] MEDS: INSULIN ASPART 1,000 UNITS/10 ML VIAL SQ SCH ×3 (07:41→17:34)
[2017-09-17] MEDS: INSULIN ASPART SUPPLEMENTAL SCALE SQ SCH ×4 (07:42→20:15)
--- NOTE | 2017-09-17 08:00 | HHI.PR ---
Subjective Patient symptoms today still having right flank pain, but feels better. Denies fevers, chills, nausea. Dysuria resolved. Objective Vital Signs Vital Signs Date Time Temp Pulse Resp B/P (MAP) Pulse Ox O2 Delivery O2 Flow Rate FiO2 09/17/17 06:49 16 09/17/17 04:57 16 09/17/17 04:00 98.5 89 18 140/58 (85) 95 09/17/17 00:00 98.1 77 18 108/58 (75) 95 09/16/17 20:35 70 17 121/59 (79) 98 Nasal Cannula 2.00 09/16/17 20:30 97.6 73 19 130/60 (83) 95 09/16/17 20:00 72 09/16/17 19:01 67 18 117/62 (80) 98 Nasal Cannula 2.00 09/16/17 17:09 89 18 09/16/17 15:18 97.5 70 17 126/63 (84) 95 Intake & Output 09/17/17 09/17/17 07:00 19:00 Intake Total 0 ml Balance 0 ml Intake Oral 0 ml # Voids 2 # Bowel Movements 0 Result Diagram: 09/17/17 0635 09/16/17 1722 Objective Remarks NAD. A/O x 3 abd soft, distended. Right CVA tenderness. Medications and IVs Current Medications Medications (Trade) Dose Ordered Sig/Alisha Route Start Time Stop Time Status Last Admin Cefepime HCl 1000 mg/Sodium Chloride 100 ml @ 200 mls/hr Q12H IV 09/16/17 20:00 09/16/17 20:03 (NS Flush) 2 ml UNSCH PRN IV FLUSH 09/16/17 19:30 (NS Flush) 2 ml BID IV FLUSH 09/16/17 21:00 09/16/17 21:12 (Norvasc) 10 mg DAILY PO 09/17/17 09:00 (Lopid) 300 mg BIDAC PO 09/17/17 07:00 09/17/17 05:50 (Prinivil) 40 mg DAILY PO 09/17/17 09:00 (Ecotrin Ec) 81 mg DAILY PO 09/17/17 09:00 Sodium Chloride 1,000 ml @ 125 mls/hr Q8H IV 09/16/17 20:15 09/17/17 03:59 (Tylenol) 650 mg Q6HR PO 09/17/17 00:00 09/17/17 05:49 (Roxicodone) 5 mg Q6H PRN PO 09/16/17 20:15 (Roxicodone) 10 mg Q6H PRN PO 09/16/17 20:15 09/17/17 03:57 (Narcan Inj) 0.4 mg UNSCH X1 PRN IV PUSH 09/16/17 20:15 10/16/17 20:14 (Zofran Inj) 4 mg Q8HR PRN IV PUSH 09/16/17 20:15 (Levemir Inj) 10 units Q12HR SQ 09/16/17 21:00 09/16/17 21:11 (NovoLOG INJ) 8 units TIDAC SQ 09/17/17 08:00 (D50w (Vial) Inj) 50 ml UNSCH PRN IV PUSH 09/16/17 20:15 (Glucagon Inj) 1 mg UNSCH PRN OTHER 09/16/17 20:15 (NovoLOG SUPPLEMENTAL SCALE) 1 ACHS SLIDING SCALE SQ 09/16/17 21:00 09/16/17 21:26 (Heparin Inj) 5,000 units Q8HR SQ 09/16/17 22:00 09/17/17 05:49 Lactated Ringer's 1,000 ml @ 30 mls/hr Q24H PRN IV 09/17/17 04:45 09/20/17 04:44 Sodium Chloride 500 ml @ 30 mls/hr [id number] PRN IV 09/17/17 04:45 09/20/17 04:44 (Lopressor) 25 mg [employer] PRN PO 09/17/17 04:45 09/20/17 04:44 (Betadine 5% Antisepsis Kit) 1 applic [employer] PRN EACH NARE 09/17/17 04:45 09/20/17 04:44 (Chlorhexidine 2% Cloth) 3 pack [employer] PRN TOPICAL 09/17/17 04:45 09/20/17 04:44 Assessment and Plan Problem List: (1) Emphysematous pyelonephritis ICD Code: N12 - Tubulo-interstitial nephritis, not specified as acute or chronic Status: Acute Assessment and Plan WBC stable. F/U BMP Cefepime. cultures pending To OR today for cystoscopy, rigtht ureteral stent insertion. Shahram Ramirez MD Sep 17, 2017 08:00
[2017-09-17 08:01] LABS: BANDS 23 % (0-6); NEUTROPHIL # MANUAL DIFF 17.9 TH/MM3 (1.8-7.7); POLYS (SEG NEUTROPHILS) 69 % (16-70); WBC DIFF SAMPLE 100
[2017-09-17 08:02] LABS: PLATELET ESTIMATE SMEAR NORMAL (NORMAL); PLATELET MORPHOLOGY NORMAL (NORMAL); SCAN/DIFF FINAL DIFF MANUAL
[2017-09-17 08:03] LABS: ALKALINE PHOSPHATASE 125 U/L (45-117); ALT (GPT) 45 U/L (10-53); ANION GAP 11 MEQ/L (5-15); AST (GOT) 89 U/L (15-37); BLOOD UREA NITROGEN 54 MG/DL (7-18); CHLORIDE 107 MEQ/L (98-107); GLOMERULAR FILTRATION RATE 22 ML/MIN (>89); MAGNESIUM 1.9 MG/DL (1.5-2.5); POTASSIUM 3.8 MEQ/L (3.5-5.1); SODIUM (NA) 137 MEQ/L (136-145); TOTAL BILIRUBIN ADULT 0.3 MG/DL (0.2-1.0)
[2017-09-17] MEDS: CEFEPIME INJ 1,000 MG in SODIUM CHLORIDE 0.9% INJ 100 ML IV SCH (08:15)
--- NOTE | 2017-09-17 08:45 | PD.OP ---
Operative Report Date of Surgery: Sep 17, 2017 Preoperative Diagnosis: (1) Emphysematous pyelonephritis Postoperative Diagnosis: Procedure: cystoscopy, right ureteral stent insertion Surgeon: Shahram Ramirez Broadcast Operations Engineer(s): N/A Operation and Findings: purulent material drained following ureteral stent placement; urine culture sent May still need nephrostomy tube due to severity of infection Shahram Ramirez MD Sep 17, 2017 08:45
[2017-09-17] MEDS ORDERED: DO NOT ADM ANY ANTICOAGULANT DRUGS PRN (09:45)
[2017-09-17] MEDS ORDERED: SUGAMMADEX SODIUM 200 MG/2 ML VIAL IV PUSH ONE ×2 (09:52)
[2017-09-17] MEDS ORDERED: FAMOTIDINE 20 MG/2 ML VIAL ONE (09:53)
[2017-09-17] MEDS: ASPIRIN EC 81 MG TABEC PO SCH (09:55)
[2017-09-17] MEDS: SODIUM CHLORIDE 0.9% FLUSH 10 ML FLUSH IV FLUSH SCH ×2 (09:56→20:38)
[2017-09-17] MEDS: LISINOPRIL 20 MG TAB PO SCH (09:56)
[2017-09-17] MEDS: INSULIN DETEMIR 100 UNITS/ML VIAL SQ SCH ×2 (10:11→20:40)
[2017-09-17 11:14] LABS: HEMOGLOBIN A1a 0.9 %; HEMOGLOBIN A1b 1.6 %; HEMOGLOBIN Ao 73.9 %; HEMOGLOBIN LA1C 2.4 %; HEMOGLOBIN P3 6.1 %
[2017-09-17] MEDS ORDERED: SODIUM CHLOR 0.9% 1000 ML INJ 1,000 ML IV ONE (11:15)
--- NOTE | 2017-09-17 11:15 | HHI.HP ---
HPI Service Family Medicine Primary Care Physician Unknown Admission Diagnosis perinephric abscess, sepsis Diagnoses: (1) Severe sepsis Diagnosis: Principal (2) Emphysematous pyelonephritis Diagnosis: Principal (3) Acute kidney injury Diagnosis: Principal (4) Diabetes mellitus Diagnosis: Principal (5) Hypertension Diagnosis: Principal (6) Dyslipidemia Diagnosis: Principal (7) FEN/PPX Diagnosis: Principal International Travel<30 Days: No Contact w/Intl Traveler<30days: No Known Affected Area: No History of Present Illness Ms Cohen is a 67-year-old female with history of poorly controlled diabetes, hypertension presenting with a 2 day history of right-sided abdominal pain. Pain started 2 days ago and was quite severe. She's been taking 2 extra strength Tylenol about every 4 hours as well as ibuprofen extra strength every 6 hours. To keep her pain under good control. She also had 2 episodes of nonbloody, nonbilious vomiting the day before yesterday and 4 episodes the day of admission. Her abdominal pain was associated with fevers and chills with a maximum temperature of 101-102 as well as dysuria and urinary frequency. She denies bloody stool, change in stool pattern, incontinence, chest pain, shortness of breath. She has been taking her diabetes medicines as prescribed, but her blood sugar has been ranging in the 200s to 300s at home. She has no history of severe urinary tract infection, kidney stones, or pyelonephritis. She had an elevated lactic acid on admission which is improved now. She has had a procedure this am to help drain her infected kidney. She feels improved overall but her BPs were low especially around the time of the procedure. She received her BP meds including JEANNIE and Norvasc plus had anesthesia with the procedure so that could explain her low BPs but she is septic and bacteremic with 4/4 positive blood cultures for gram negative rods. Her lactic acid is improved this am. Will give 1 liter bolus and spoke to her nurse about her perhaps needing transfer to the unit if her BPs are dropping and she needs closer monitoring. Will hold her BP meds but she already took most of them. She feels improved today with less pain already and no fevers. Review of Systems Other Constitutional: COMPLAINS OF: Fever, Chills Endocrine: DENIES: Heat/cold intolerance Eyes: DENIES: Eye pain, Vision loss Ears, nose, mouth, throat: DENIES: Throat pain, Ear Pain Respiratory: DENIES: Cough, Wheezing, Sputum production, Shortness of breath Cardiovascular: DENIES: Chest pain, Palpitations Gastrointestinal: COMPLAINS OF: Abdominal pain, Nausea, Vomiting, DENIES: Black stools, Bloody stools, Constipation, Diarrhea Genitourinary: COMPLAINS OF: Urinary frequency, Dysuria, DENIES: Abnormal vaginal bleeding, Urinary incontinence, Urgency, Hematuria Musculoskeletal: DENIES: Joint pain, Muscle aches Integumentary: DENIES: Rash Hematologic/lymphatic: DENIES: Bruising Immunologic/allergic: DENIES: Urticaria Neurologic: DENIES: Headache, Localized weakness. slight confusion after her anesthesia with procedure but clearing up now Psychiatric: DENIES: Confusion, Mood changes Past Family Social History Past Medical History Diabetes HTN Hypertriglyceridemia Past Surgical History C section (1990) Allergies: Coded Allergies: metformin (Unverified Allergy, Severe, Numbness, 07/12/17) clonidine (Unverified Allergy, Unknown, 07/12/17) *MDRO Multi-Drug Resistant Organism (Verified Adverse Reaction, Unknown, 11/12/16) MRSA (buttock wound) - 11/2014 Family History Mom: DM, HTN ( 1998- dialysis) Dad: CAD, CABG, (1987-he was 69 years old) Social History for 29 years. Lives at home with her . Never smoker. Does not drink EtOH. No illicit drug use. Physical Exam Vital Signs Vital Signs Date Time Temp Pulse Resp B/P (MAP) Pulse Ox O2 Delivery O2 Flow Rate FiO2 09/17/17 09:40 98.3 89 16 103/58 (73) 96 Nasal Cannula 3 09/17/17 09:30 88 15 99/54 (69) 96 Nasal Cannula 3 09/17/17 09:15 90 15 99/55 (70) 98 Nasal Cannula 4 09/17/17 09:02 98.6 101 16 104/55 (71) 95 Nasal Cannula 4 09/17/17 08:00 98.5 65 18 116/61 (79) 96 09/17/17 06:49 16 09/17/17 04:57 16 09/17/17 04:00 98.5 89 18 140/58 (85) 95 09/17/17 00:00 98.1 77 18 108/58 (75) 95 09/16/17 20:35 70 17 121/59 (79) 98 Nasal Cannula 2.00 09/16/17 20:30 97.6 73 19 130/60 (83) 95 09/16/17 20:00 72 09/16/17 19:01 67 18 117/62 (80) 98 Nasal Cannula 2.00 09/16/17 17:09 89 18 09/16/17 15:18 97.5 70 17 126/63 (84) 95 Physical Exam GENERAL: Well-developed, well-nourished short elderly white female lying in bed appearing comfortable and in no acute distress with brandy appearing urine from jeffers SKIN: No rashes, ecchymoses or lesions. Cool and dry. HEAD: NC/AT EYES: PERRL. EOMI. No conjunctival injection or drainage. ENT: MMM, OP without erythema, tonsillar swelling, or exudate. NECK: Supple, no lymphadenopathy. No JVD. CARDIOVASCULAR: NRRR. Normal S1/S2. No MRG RESPIRATORY: CTAB. No crackles or wheezes. GASTROINTESTINAL: Abdomen soft, non-distended, tender to palpation in right lower quadrant, right flank. No rebound tenderness. Slight voluntary guarding. No hepato-splenomegaly or palpable masses. GENITOURINARY: CVA tenderness on the right side MUSCULOSKELETAL: Extremities without clubbing, cyanosis, or edema. NEUROLOGICAL: Awake and alert. Cranial nerves II through XII grossly intact. Moves all extremities without difficulty. Normal speech. Laboratory Laboratory Tests Test 09/16/17 17:22 09/16/17 18:12 09/16/17 19:00 09/16/17 21:25 White Blood Count 19.2 Red Blood Count 3.85 Hemoglobin 11.4 Hematocrit 34.8 Mean Corpuscular Volume 90.5 Mean Corpuscular Hemoglobin 29.7 Mean Corpuscular Hemoglobin Concent 32.8 Red Cell Distribution Width 13.3 Platelet Count 275 Mean Platelet Volume 8.2 Neutrophils (%) (Auto) 94.2 Lymphocytes (%) (Auto) 3.5 Monocytes (%) (Auto) 1.5 Eosinophils (%) (Auto) 0.4 Basophils (%) (Auto) 0.4 Neutrophils # (Auto) 18.1 Lymphocytes # (Auto) 0.7 Monocytes # (Auto) 0.3 Eosinophils # (Auto) 0.1 Basophils # (Auto) 0.1 CBC Comment AUTO DIFF Differential Total Cells Counted 100 Neutrophils % (Manual) 54 Band Neutrophils % 35 Lymphocytes % 4 Monocytes % 1 Neutrophils # (Manual) 18.2 Metamyelocytes 5 Myelocytes 1 Differential Comment FINAL DIFF MANUAL Toxic Granulation 1+ Toxic Vacuolation Dohle Bodies PRESENT Platelet Estimate NORMAL Platelet Morphology Comment NORMAL Urine Color BROWN Urine Turbidity CLOUDY Urine pH 5.5 Urine Specific [place] 1.028 Urine Protein 100 Urine Glucose (UA) 70 Urine Ketones NEG Urine Occult Blood MOD Urine Nitrite POS Urine Bilirubin NEG Urine Urobilinogen LESS THAN 2.0 Urine Leukocyte Esterase LARGE Urine RBC 33 Urine WBC Urine WBC Clumps FEW Urine Squamous Epithelial Cells 8 Urine Bacteria FEW Microscopic Urinalysis Comment CULTURE INDICATED Blood Urea Nitrogen 49 Creatinine 2.88 Random Glucose 579 Total Protein 7.4 Albumin 2.5 Calcium Level 9.4 Alkaline Phosphatase 168 Aspartate Amino Transf (AST/SGOT) 40 Alanine Aminotransferase (ALT/SGPT) 33 Total Bilirubin 0.3 Sodium Level 127 Potassium Level 4.3 Chloride Level 91 Carbon Dioxide Level 22.5 Anion Gap 14 Estimat Glomerular Filtration Rate 20 Lipase 128 Lactic Acid Level 3.1 3.3 Prothrombin Time 12.0 Prothromb Time International Ratio 1.1 Test 09/17/17 06:35 White Blood Count 19.5 Red Blood Count 3.42 Hemoglobin 10.1 Hematocrit 30.1 Mean Corpuscular Volume 88.1 Mean Corpuscular Hemoglobin 29.4 Mean Corpuscular Hemoglobin Concent 33.4 Red Cell Distribution Width 13.5 Platelet Count 248 Mean Platelet Volume 8.4 Neutrophils (%) (Auto) 86.5 Lymphocytes (%) (Auto) 5.4 Monocytes (%) (Auto) 3.4 Eosinophils (%) (Auto) 4.2 Basophils (%) (Auto) 0.5 Neutrophils # (Auto) 16.9 Lymphocytes # (Auto) 1.1 Monocytes # (Auto) 0.7 Eosinophils # (Auto) 0.8 Basophils # (Auto) 0.1 CBC Comment AUTO DIFF Differential Total Cells Counted 100 Neutrophils % (Manual) 69 Band Neutrophils % 23 Lymphocytes % 6 Monocytes % 2 Neutrophils # (Manual) 17.9 Differential Comment FINAL DIFF MANUAL Platelet Estimate NORMAL Platelet Morphology Comment NORMAL Red Cell Morphology Comment NORMAL Blood Urea Nitrogen 54 Creatinine 2.67 Random Glucose 139 Total Protein 6.4 Albumin 1.9 Calcium Level 8.1 Phosphorus Level 3.9 Magnesium Level 1.9 Alkaline Phosphatase 125 Aspartate Amino Transf (AST/SGOT) 89 Alanine Aminotransferase (ALT/SGPT) 45 Total Bilirubin 0.3 Sodium Level 137 Potassium Level 3.8 Chloride Level 107 Carbon Dioxide Level 19.0 Anion Gap 11 Estimat Glomerular Filtration Rate 22 Lactic Acid Level 1.3 Date/Time Source Procedure Growth Status 09/16/17 18:02 Blood Peripheral Aerobic Blood Culture - Preliminary Gram Negative Jaime Resulted 09/16/17 18:02 Anaerobic Blood Culture - Preliminary Gram Negative Jaime Resulted 09/16/17 17:22 Urine Clean Catch Urine Culture Pending Received Result Diagram: 09/17/17 0635 09/17/17 0635 Imaging Last Impressions Abdomen/Pelvis CT 09/16/17 0000 Signed Impressions: Service Date/Time: Saturday, September 16, 2017 17:27 - CONCLUSION: 1. 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 No obstructing stone or mass observed. Air is seen throughout the right kidney parenchyma, collecting system, and into the renal vein. A small amount of air is seen involving the upper pole of the left kidney near the hilum likely extension from air within the inferior vena cava. There is mild hydronephrosis and hydroureter on the right. No obstruction on the left. Corey Millan Jr., MD Septic Shock Reassessment Heart: Regular rate and rhythm Lungs: Clear Skin: Warm, Dry Caprini VTE Risk Assessment Caprini VTE Risk Assessment: Mod/High Risk (score >= 2) Caprini Risk Assessment Model Point Value = 1 Point Value = 2 Point Value = 3 Point Value = 5 Age 41-60 Minor surgery BMI > 25 kg/m2 Swollen legs Varicose veins or History of unexplained or recurrent spontaneous Oral contraceptives or hormone replacement Sepsis (< 1 month) Serious lung disease, including pneumonia (< 1 month) Abnormal pulmonary function Acute myocardial infarction Congestive heart failure (< 1 month) History of inflammatory bowel disease Medical patient at bed rest Age 61-74 Arthroscopic surgery Major open surgery (> 45 min) Laparoscopic surgery (> 45 min) Malignancy Confined to bed (> 72 hours) Immobilizing plaster cast Central venous access Age >= 75 History of VTE Family history of VTE Factor V Leiden Prothrombin [id number] Lupus anticoagulant Anticardiolipin antibodies Elevated serum homocysteine Heparin-induced thrombocytopenia Other congenital or acquired thrombophilia Stroke (< 1 month) Elective arthroplasty Hip, pelvis, or leg fracture Acute spinal cord injury (< 1 month) Prophylaxis Regimen Total Risk Factor Score Risk Level Prophylaxis Regimen 0-1 Low Early ambulation 2 Moderate Order ONE of the following: *Sequential Compression Device (SCD) *Heparin 5000 units SQ BID 3-4 Higher Order ONE of the following medications: *Heparin 5000 units SQ TID *Enoxaparin/Lovenox 40 mg SQ daily (WT < 150 kg, CrCl > 30 mL/min) *Enoxaparin/Lovenox 30 mg SQ daily (WT < 150 kg, CrCl > 10-29 mL/min) *Enoxaparin/Lovenox 30 mg SQ BID (WT < 150 kg, CrCl > 30 mL/min) AND/OR *Sequential Compression Device (SCD) 5 or more Highest Order ONE of the following medications: *Heparin 5000 units SQ TID (Preferred with Epidurals) *Enoxaparin/Lovenox 40 mg SQ daily (WT < 150 kg, CrCl > 30 mL/min) *Enoxaparin/Lovenox 30 mg SQ daily (WT < 150 kg, CrCl > 10-29 mL/min) *Enoxaparin/Lovenox 30 mg SQ BID (WT < 150 kg, CrCl > 30 mL/min) AND *Sequential Compression Device (SCD) Assessment and Plan Assessment and Plan 67-year-old female with uncontrolled diabetes and hypertension presenting with: Problem List: (1) Severe sepsis ICD Codes: A41.9 - Sepsis, unspecified organism; R65.20 - Severe sepsis without septic shock Status: Acute Plan: Patient meeting severe sepsis criteria due to leukocytosis, reported elevated temperature at home, and acute kidney injury with lactic acid of 3.[address] exam findings and urinalysis results noted above Status post 1 L bolus of IV normal saline in ED, will give one more bolus now making total of 3 - Repeated lactic acid in 2 hours per sepsis protocol, improved with fluids and abx - Given additional 1 L bolus normal saline last night - IV normal saline at 125 mL/h - Cefepime dosed renally 1 g twice a day for emphysematous pyelonephritis - Urology consult due to emphysematous pyelonephritis for consideration of nephrostomy placement to drain infection - Follow up blood and urine cultures, gram negative jaime x 4 blood cultures - Repeat CBC, CMP in the morning (2) Emphysematous pyelonephritis ICD Codes: N12 - Tubulo-interstitial nephritis, not specified as acute or chronic Status: Acute Plan: Meeting sepsis criteria, see above - Cefepime as above for antibiotic coverage - Tylenol 650 mg every 6 hours scheduled while awake - Oxycodone 5 and 10 mg every 6 hours for pain scale 3-5 or 6-10, respectively - Zofran 4 mg IV every 8 hours as needed for nausea and vomiting - Control diabetes as below (3) Acute kidney injury ICD Codes: N17.9 - Acute kidney failure, unspecified Status: Acute Plan: Creatinine of 2.88 increased from baseline of about 0.5. Likely due to severe sepsis from urinary source plus injury to kidney. - IV fluids as above - Trend creatinine daily -hold JEANNIE especially -with low BPs holding other BP meds but definitely hold JEANNIE if she does not improve, consider nephrology consult (4) Diabetes mellitus ICD Codes: E11.9 - Type 2 diabetes mellitus without complications Status: Chronic Plan: Important control at home, glucose running 200s to 300s per patient, greater than 500 on admission probably from sepsis very high glucose No evidence of DKA - Insulin Levemir 10 units twice a day - Insulin aspart 8 units 3 times a day before meals - Medium dose insulin aspart sliding scale with meals - Glucose checks before meals and at bedtime - Diet full liquid with advancement to 2200 ADA consistent carbohydrate patient tolerating well - Consult clinical unit educator - Consult case management to assess possible reasons for poor compliance and attendance at office visits (5) Hypertension Status: Chronic Plan: Blood pressure within normal limits on admission, now low - hold home lisinopril and amlodipine but received today (6) Dyslipidemia ICD Codes: E78.5 - Dyslipidemia Status: Chronic Plan: Continue home fibrate and aspirin (7) FEN/PPX Plan: Fluids: As noted above Electrolytes: Monitor and replete as needed Nutrition: Diet as above for diabetes DVT: Heparin 5000 units subcutaneous 3 times a day CODE STATUS: Full code Desirae Clark MD Sep 17, 2017 11:15
[2017-09-17] MEDS ORDERED: LIDOCAINE HCL 1% PF 5 ML AMPULE OTHER ONE (12:00)
[2017-09-17] MEDS ORDERED: ROCURONIUM INJ 50 MG/5 ML SYRINGE IV PUSH ONE (12:00)
[2017-09-17] MEDS ORDERED: IOHEXOL 350 MG/ML 50 ML BTL (for RAD DIAG) OTHER ONE (12:00)
[2017-09-17] MEDS ORDERED: PROPOFOL 200 MG/20 ML AMP IV ONE (12:00)
[2017-09-17] MEDS ORDERED: PHENYLEPH/NS 1000 MCG/10 ML SYR IV ONE (12:00)
[2017-09-17] MEDS ORDERED: MIDAZOLAM HCL 2 MG/2 ML VIAL IV ONE (12:00)
[2017-09-17] MEDS ORDERED: ONDANSETRON HCL 4 MG/2 ML VIAL IV PUSH ONE (12:00)
[2017-09-17] MEDS ORDERED: ePHEDrine/NS 25 MG/5 ML SYR IV ONE (12:00)
--- NOTE | 2017-09-17 13:07 | PD.CONS ---
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 Records reviewed. Patient is a 67-year-old female, presented to the hospital complaining of three- day history of right-sided abdominal pain, and right flank pain. This was associated with nausea and vomiting as well as frequency and dysuria. She denies any hematuria. In the emergency room she was found to have a white count of 19,000. She has significant pyuria. Creatinine was also elevated. CT of the abdomen and pelvis showed evidence of air in the right kidney, right renal pelvis and also some air extending in the renal vein into the IVC. There is also a small amount of air seen in the hilum of the left kidney. There was some right hydronephrosis and ureter, but no kidney stones seen to cause obstruction. Patient has had prior history of bladder and kidney infection but not this severe. Patient also was found to have very high blood glucose. 2 blood cultures done and are now reported as growing gram-negative rods. Patient underwent surgery, and had cystoscopy and placement of a right ureteral stent. She has been afebrile since admission. Her white count remains elevated at 19,000. Infectious disease consultation has been requested to evaluate the patient with emphysematous pyelonephritis. Review of Systems Constitutional: COMPLAINS OF: Fever, Chills, DENIES: Change in appetite Eyes: DENIES: Eye pain Ears, nose, mouth, throat: DENIES: Nasal discharge, Oral lesions, Throat pain, Ear Pain, Sinus Pain Respiratory: DENIES: Cough, Shortness of breath Cardiovascular: DENIES: Chest pain, Palpitations, Syncope Gastrointestinal: COMPLAINS OF: Abdominal pain, Nausea, Vomiting, DENIES: Diarrhea, Difficulty Swallowing Genitourinary: COMPLAINS OF: Urinary frequency, Dysuria, DENIES: Hematuria Musculoskeletal: COMPLAINS OF: Back pain, DENIES: Joint pain, Joint Swelling Immunologic/allergic: DENIES: Urticaria Neurologic: DENIES: Headache Psychiatric: DENIES: Confusion, Hallucinations Past Family Social History Allergies: Coded Allergies: metformin (Unverified Allergy, Severe, Numbness, 07/12/17) clonidine (Unverified Allergy, Unknown, 07/12/17) *MDRO Multi-Drug Resistant Organism (Verified Adverse Reaction, Unknown, 11/12/16) MRSA (buttock wound) - 11/2014 Past Medical History Diabetes HTN Hypertriglyceridemia CAD Previous episodes of UTI Past Surgical History Caesarian section Reported Medications I attest that I obtained, updated or reviewed the home and current medications. Reported Meds & Active Scripts Active Glipizide 5 Mg Tab 5 Mg PO DAILY Take 30 minutes before a meal Lisinopril 40 Mg Tab 40 Mg PO DAILY Amlodipine (Amlodipine Besylate) 10 Mg Tab 10 Mg PO DAILY Gemfibrozil 600 Mg Tab 300 Mg PO BIDAC Take 30 minutes prior to breakfast and dinner. Reported Aspirin DR (Aspirin) 81 Mg Tabdr 81 Mg PO DAILY Active Ordered Medications Tylenol prn Norvasc Aspirin Cefepime Lopid Heparin Insulin sliding scale Levemir Lopressor Narcan prn Zofran prn Oxycodone prn Family History Mom: DM, HTN ( 1998- dialysis) Dad: CAD, CABG, (1987-he was 69 years old) Social History , lives at home No smoking No alcohol abuse No illicit drugs Physical Exam Vital Signs Vital Signs Date Time Temp Pulse Resp B/P (MAP) Pulse Ox O2 Delivery O2 Flow Rate FiO2 09/17/17 12:00 97.4 83 18 122/63 (82) 96 09/17/17 09:40 98.3 89 16 103/58 (73) 96 Nasal Cannula 3 09/17/17 09:30 88 15 99/54 (69) 96 Nasal Cannula 3 09/17/17 09:15 90 15 99/55 (70) 98 Nasal Cannula 4 09/17/17 09:02 98.6 101 16 104/55 (71) 95 Nasal Cannula 4 09/17/17 08:00 98.5 65 18 116/61 (79) 96 09/17/17 07:35 93 09/17/17 06:49 16 09/17/17 04:57 16 09/17/17 04:00 98.5 89 18 140/58 (85) 95 09/17/17 00:00 98.1 77 18 108/58 (75) 95 09/16/17 20:35 70 17 121/59 (79) 98 Nasal Cannula 2.00 09/16/17 20:30 97.6 73 19 130/60 (83) 95 09/16/17 20:00 72 10/20/17 19:01 67 18 117/62 (80) 98 Nasal Cannula 2.00 09/16/17 17:09 89 18 09/16/17 15:18 97.5 70 17 126/63 (84) 95 Physical Exam GENERAL: Patient is an obese, well-developed female, awake and alert, not in respiratory distress. She does not look toxic appearing at the time my exam SKIN: Warm and dry. No generalized rash, no ecchymoses and no evidence of embolic lesions. HEAD: Atraumatic. Normocephalic. No temporal wasting, or tenderness. EYES: [place] conjunctiva. No petechia or hemorrhage. Pupils equal, round and reactive to light. Extraocular movements full and intact. No scleral icterus. No injection or drainage. EARS, NOSE AND THROAT: Nose without bleeding or purulent nasal discharge. No sinus tenderness. Mucous membranes pink and moist. No oral lesions noted. No exudate. No oral thrush. NECK: Trachea midline. Supple and not tender, no meningeal signs. No nuchal rigidity. CARDIOVASCULAR: Regular rate and rhythm. No murmurs, rubs or gallops heard RESPIRATORY: Clear to auscultation. Breath sounds equal bilaterally. No rales , wheezing or rhonchi ABDOMEN: Patient had her procedure this morning and Im seeing her after that procedure. Soft, non-tender, nondistended. Bowel sounds present and normoactive. No guarding. No rebound. No organomegaly. EXTREMITIES: No clubbing, cyanosis, or edema. No joint effusion, has good ROM. No calf tenderness. Well perfused and warm. NEUROLOGICAL: Awake and alert. Cranial nerves grossly intact. Motor grossly within normal limits. PSYCHIATRIC: Normal affect, calm and cooperative. LINE: No evidence of infection : [place] in place, urine blood tinged Laboratory Laboratory Tests Test 09/16/17 17:22 09/16/17 18:12 09/16/17 19:00 09/16/17 21:25 White Blood Count 19.2 Red Blood Count 3.85 Hemoglobin 11.4 Hematocrit 34.8 Mean Corpuscular Volume 90.5 Mean Corpuscular Hemoglobin 29.7 Mean Corpuscular Hemoglobin Concent 32.8 Red Cell Distribution Width 13.3 Platelet Count 275 Mean Platelet Volume 8.2 Neutrophils (%) (Auto) 94.2 Lymphocytes (%) (Auto) 3.5 Monocytes (%) (Auto) 1.5 Eosinophils (%) (Auto) 0.4 Basophils (%) (Auto) 0.4 Neutrophils # (Auto) 18.1 Lymphocytes # (Auto) 0.7 Monocytes # (Auto) 0.3 Eosinophils # (Auto) 0.1 Basophils # (Auto) 0.1 CBC Comment AUTO DIFF Differential Total Cells Counted 100 Neutrophils % (Manual) 54 Band Neutrophils % 35 Lymphocytes % 4 Monocytes % 1 Neutrophils # (Manual) 18.2 Metamyelocytes 5 Myelocytes 1 Differential Comment FINAL DIFF MANUAL Toxic Granulation 1+ Toxic Vacuolation Dohle Bodies PRESENT Platelet Estimate NORMAL Platelet Morphology Comment NORMAL Urine Color BROWN Urine Turbidity CLOUDY Urine pH 5.5 Urine Specific Aneta 1.028 Urine Protein 100 Urine Glucose (UA) 70 Urine Ketones NEG Urine Occult Blood MOD Urine Nitrite POS Urine Bilirubin NEG Urine Urobilinogen LESS THAN 2.0 Urine Leukocyte Esterase LARGE Urine RBC 33 Urine WBC Urine WBC Clumps FEW Urine Squamous Epithelial Cells 8 Urine Bacteria FEW Microscopic Urinalysis Comment CULTURE INDICATED Blood Urea Nitrogen 49 Creatinine 2.88 Random Glucose 579 Total Protein 7.4 Albumin 2.5 Calcium Level 9.4 Alkaline Phosphatase 168 Aspartate Amino Transf (AST/SGOT) 40 Alanine Aminotransferase (ALT/SGPT) 33 Total Bilirubin 0.3 Sodium Level 127 Potassium Level 4.3 Chloride Level 91 Carbon Dioxide Level 22.5 Anion Gap 14 Estimat Glomerular Filtration Rate 20 Lipase 128 Lactic Acid Level 3.1 3.3 Prothrombin Time 12.0 Prothromb Time International Ratio 1.1 Test 09/17/17 06:35 White Blood Count 19.5 Red Blood Count 3.42 Hemoglobin 10.1 Hematocrit 30.1 Mean Corpuscular Volume 88.1 Mean Corpuscular Hemoglobin 29.4 Mean Corpuscular Hemoglobin Concent 33.4 Red Cell Distribution Width 13.5 Platelet Count 248 Mean Platelet Volume 8.4 Neutrophils (%) (Auto) 86.5 Lymphocytes (%) (Auto) 5.4 Monocytes (%) (Auto) 3.4 Eosinophils (%) (Auto) 4.2 Basophils (%) (Auto) 0.5 Neutrophils # (Auto) 16.9 Lymphocytes # (Auto) 1.1 Monocytes # (Auto) 0.7 Eosinophils # (Auto) 0.8 Basophils # (Auto) 0.1 CBC Comment AUTO DIFF Differential Total Cells Counted 100 Neutrophils % (Manual) 69 Band Neutrophils % 23 Lymphocytes % 6 Monocytes % 2 Neutrophils # (Manual) 17.9 Differential Comment FINAL DIFF MANUAL Platelet Estimate NORMAL Platelet Morphology Comment NORMAL Red Cell Morphology Comment NORMAL Blood Urea Nitrogen 54 Creatinine 2.67 Random Glucose 139 Total Protein 6.4 Albumin 1.9 Calcium Level 8.1 Phosphorus Level 3.9 Magnesium Level 1.9 Alkaline Phosphatase 125 Aspartate Amino Transf (AST/SGOT) 89 Alanine Aminotransferase (ALT/SGPT) 45 Total Bilirubin 0.3 Sodium Level 137 Potassium Level 3.8 Chloride Level 107 Carbon Dioxide Level 19.0 Anion Gap 11 Estimat Glomerular Filtration Rate 22 Lactic Acid Level 1.3 Date/Time Source Procedure Growth Status 09/16/17 18:02 Blood Peripheral Aerobic Blood Culture - Preliminary Gram Negative Jaime Resulted 09/16/17 18:02 Anaerobic Blood Culture - Preliminary Gram Negative Jaime Resulted 09/17/17 08:45 Urine Clean Catch Urine Culture Pending Received Result Diagram: 09/17/17 0635 09/17/17 0635 Imaging RADIOLOGY STUDIES/FILMS REVIEWED Abdomen/Pelvis CT 09/16/17 0000 Signed Impressions: Service Date/Time: Saturday, September 16, 2017 17:27 - CONCLUSION: 1. 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 No obstructing stone or mass observed. Air is seen throughout the right kidney parenchyma, collecting system, and into the renal vein. A small amount of air is seen involving the upper pole of the left kidney near the hilum likely extension from air within the inferior vena cava. There is mild hydronephrosis and hydroureter on the right. No obstruction on the left. Corey Millan Jr., MD Assessment and Plan Assessment and Plan IMPRESSION E coli sepsis due to emphysematous pyelonephritis on R - S/P cysto and R ureteral stent placement Renal insufficiency Diabetes, poorly controlled Leukocytosis RECOMMENDATION Repeat 2 blood cultures today Change cefepime to Zosyn Urology following the patient, and monitoring if any further intervention needed after the procedure this morning Follow cultures and adjust antibiotics accordingly Monitor progress I will determine course of antibiotics once workup and cultures completed I will follow along with you. Thank you for this consultation Discussed Condition With Explained plan to the patient. Discussed with Ann Maria MD Sep 17, 2017 13:07
--- NOTE | 2017-09-17 16:00 | MP ---
cc: LUCIA HUTCHINSON MD DATE OF SURGERY 09/17/17 PREOPERATIVE DIAGNOSIS 1. Right emphysematous pyelonephritis. 2. Right flank pain. 3. Uncontrolled diabetes. POSTOPERATIVE DIAGNOSIS 1. Right emphysematous pyelonephritis. 2. Right flank pain. 3. Uncontrolled diabetes. PROCEDURE PERFORMED 1. Cystourethroscopy. 2. Right ureteral stent insertion. SURGEON MD Ashley. ANESTHESIA General. COMPLICATIONS None. PREOP ANTIBIOTICS Just the Cefepime 1 gram IV. DRAINS 6 x 24 double-J right ureteral stent. SPECIMENS Post stent urine culture ___. BLOOD LOSS Minimal. DISPOSITION Stable, to recovery. INDICATIONS The patient is a 67-year-old Afro-[place] woman with history of diabetes who presented to the ER last night with complaints of right flank pain and nausea for the last 3 days. She was found to have elevated white count 19,000, a creatinine of 2.88. She had a CT of the abdomen and pelvis without contrast done which showed her right kidney consistent with emphysematous pyelonephritis. However, she was relatively stable with no evidence of fevers and she was hemodynamically stable. Discussion with interventional radiology last night who thought placing a percutaneous nephrostomy tube would be very difficult due to the amount of air in her kidney and the patient's body habitus. Therefore, it was decided to undergo stent placement initially to see if that helps improve her clinical condition, drain her kidney and could possibly nephrostomy tube if needed. After risks, benefits alternatives were explained the patient elected to proceed. Informed consent was obtained. DETAILS OF THE PROCEDURE The patient appropriately identified, brought back to the cystoscopy suite where she was laid supine on the cystoscopy table. Proper time-out was performed. Under direction of anesthesiology the patient intubated, induced under general aesthetic. Cefepime 1 gram IV was given within an hour start of the procedure. The patient was then placed in dorsolithotomy position, prepped, draped in normal sterile surgical fashion. A rigid cystoscope was carefully passed into her bladder per urethra without any difficulty. A pancystoscopy was done. Her bladder appeared to be diffusely inflamed but there was no evidence of any tumor, stones, diverticular or trabeculations. The right ureteral orifice was easily identified. Using a guidewire I was then able to pass the wire up into the right kidney with some resistance. I did not do a right retrograde pyelogram due to her presence of infection. At the proximal curl the wire appeared to be curling in the right kidney. I then backloaded a 6 x 24 stent over the wire up into the right kidney. There was good proximal curl seen in the renal pelvis. The wire was then removed and a good curl was seen in the bladder. At this time a significant mild of purulent material was drained from the right ureteral orifice. This urine was then collected and a specimen ____ sent off for culture. The rest of the bladder was drained. A 16-[place] catheter was then placed. This concluded the procedure. The patient was extubated and sent to recovery in stable condition. She will be transferred back to the floor and monitored very closely for sepsis. Will consult infectious disease for further antibiotic recommendations. Will monitor her over the next 24 hours. If she does not improve or worsen she will likely need a percutaneous nephrostomy tube by interventional radiology. Hopefully, will be able to spare her right kidney as sometimes the end result is a nephrectomy. Lucia Hutchinson MD EMAbigail/ALLYSON /8:47 AM /3:33 PM
[2017-09-17] MEDS: PIPERACIL-TAZO 2.25 GM PREMIX 50 ML IV SCH ×2 (17:25→23:45)
[2017-09-18] VITALS: BP 125/59; PULSE 88; RESP 19; TEMP 99.6; O2SAT 97
[2017-09-18] MEDS ORDERED: DEXT 5%-NACL 0.9% 500 ML INJ 500 ML IV ONE (01:30)
--- NOTE | 2017-09-18 01:39 | HHI.PR ---
Addendum to Inpatient Note Addendum Reason: Additional Documentation Additional Information Subjective: Residents were paged regarding patient with blood sugar 81 at midnight with "lethargy". Patient was evaluated at bedside and she does seem to be confused but there is no diaphoresis, tremors, or neurologic signs suggesting hypoglycemia or acute neurologic deficits to suggest stroke. Patient denies having any pain and endorses being sleepy. Objective: Vital signs reviewed and noted to be within normal limits: BP 99.6F, pulse 88 bpm, BP 125/59, O2 sats 97% on room air. Pupils are equal round and reactive to light. EOMI. Cardiovascular exam is within normal limits. Anterior lung [place] are within normal limits on auscultation. Abdomen is auscultated and noted to have hypoactive bowel sounds, and is nontender to palpation. Neuro exam: no facial droop, not fully cooperative with exam. Strength is normal. She is notably confused but no focal deficits noted. [place] is in place and 200 mL of bess colored fluid is noted BSG is 79 on re-evaluation Assessment/Plan: Patient is post-op, with DELLA and possibly suffering anesthesia effects BSG low, not eating much, not low enough to trigger hypoglycemia protocol Did get evening dose of Levemir 10U Will give 500cc d5NS and recheck BSG, monitor closely with neuro checks Will hold AM Levemir for now, hold TID Novolog for now Stefanie Pinzon MD R2 Sep 18, 2017 01:39
[2017-09-18 04:00] VITALS: BP 105/58; PULSE 83; RESP 19; TEMP 98.5; O2SAT 98
[2017-09-18] MEDS: SODIUM CHLOR 0.9% 1000 ML INJ 1,000 ML IV SCH ×3 (06:19→23:46)
[2017-09-18] MEDS: ACETAMINOPHEN 325 MG TAB PO SCH ×3 (06:19→18:00)
[2017-09-18] MEDS: PIPERACIL-TAZO 2.25 GM PREMIX 50 ML IV SCH ×3 (06:20→20:58)
[2017-09-18] MEDS: GEMFIBROZIL 600 MG TAB PO SCH ×2 (06:20→15:42)
[2017-09-18] MEDS: HEPARIN SODIUM - SQ 10,000 UNITS/ML VIAL SQ SCH ×3 (06:24→20:58)
[2017-09-18 08:00] VITALS: BP 132/62; PULSE 86; PULSE 87; RESP 18; TEMP 99.5; O2SAT 93
[2017-09-18] MEDS ORDERED: CEFEPIME INJ 1,000 MG in SODIUM CHLORIDE 0.9% INJ 100 ML IV SCH (08:00)
[2017-09-18] MEDS: INSULIN ASPART SUPPLEMENTAL SCALE SQ SCH ×4 (08:00→20:58)
[2017-09-18] MEDS: ASPIRIN EC 81 MG TABEC PO SCH (09:44)
[2017-09-18] MEDS: SODIUM CHLORIDE 0.9% FLUSH 10 ML FLUSH IV FLUSH SCH ×2 (09:46→20:59)
--- NOTE | 2017-09-18 11:20 | HHI.IDPN ---
Subjective Subjective Remarks Patient is a 67-year-old female, presented to the hospital complaining of three- day history of right-sided abdominal pain, and right flank pain. This was associated with nausea and vomiting as well as frequency and dysuria. She denies any hematuria. In the emergency room she was found to have a white count of 19,000. She has significant pyuria. Creatinine was also elevated. CT of the abdomen and pelvis showed evidence of air in the right kidney, right renal pelvis and also some air extending in the renal vein into the IVC. There is also a small amount of air seen in the hilum of the left kidney. There was some right hydronephrosis and ureter, but no kidney stones seen to cause obstruction. Patient has had prior history of bladder and kidney infection but not this severe. Patient also was found to have very high blood glucose. 2 blood cultures done and are now reported as growing gram-negative rods. Patient underwent surgery, and had cystoscopy and placement of a right ureteral stent. She has been afebrile since admission. Her white count remains elevated at 19,000. Infectious disease consultation has been requested to evaluate the patient with emphysematous pyelonephritis. Notes reviewed Spoke with daughter Problems with lethargy last night A little better today, but still not back to baseline Temps 99+ BC with E coli UC GNR Repeat BC pending Creatinine slightly lower C/O pain R side of abdomen Antibiotics I attest that I obtained, updated or reviewed the home and current medications. Zosyn Current Medications Medications (Trade) Dose Ordered Sig/Alisha Route Start Time Stop Time Status Last Admin (NS Flush) 2 ml UNSCH PRN IV FLUSH 09/16/17 19:30 (NS Flush) 2 ml BID IV FLUSH 09/16/17 21:00 09/18/17 09:46 (Norvasc) 10 mg DAILY PO 09/17/17 09:00 Future Hold 09/18/17 09:44 (Lopid) 300 mg BIDAC PO 09/17/17 07:00 09/18/17 15:42 (Prinivil) 40 mg DAILY PO 09/17/17 09:00 Future Hold 09/17/17 09:56 (Ecotrin Ec) 81 mg DAILY PO 09/17/17 09:00 09/18/17 09:44 Sodium Chloride 1,000 ml @ 125 mls/hr Q8H IV 09/16/17 20:15 09/18/17 06:19 (Tylenol) 650 mg Q6HR PO 09/17/17 00:00 09/18/17 11:49 (Roxicodone) 5 mg Q6H PRN PO 09/16/17 20:15 (Roxicodone) 10 mg Q6H PRN PO 09/16/17 20:15 09/18/17 15:43 (Narcan Inj) 0.4 mg UNSCH X1 PRN IV PUSH 09/16/17 20:15 10/16/17 20:14 (Zofran Inj) 4 mg Q8HR PRN IV PUSH 09/16/17 20:15 (Levemir Inj) 10 units Q12HR SQ 09/16/17 21:00 Future Hold 09/17/17 20:40 (NovoLOG INJ) 8 units TIDAC SQ 09/17/17 08:00 Future Hold 09/17/17 17:34 (D50w (Vial) Inj) 50 ml UNSCH PRN IV PUSH 09/16/17 20:15 (Glucagon Inj) 1 mg UNSCH PRN OTHER 09/16/17 20:15 (NovoLOG SUPPLEMENTAL SCALE) 1 ACHS SLIDING SCALE SQ 09/16/17 21:00 09/17/17 13:05 (Heparin Inj) 5,000 units Q8HR SQ 09/16/17 22:00 09/18/17 13:14 Lactated Ringer's 1,000 ml @ 30 mls/hr Q24H PRN IV 09/17/17 04:45 09/20/17 04:44 Sodium Chloride 500 ml @ 30 mls/hr [id number] PRN IV 09/17/17 04:45 09/20/17 04:44 (Lopressor) 25 mg SAP BW ARCHITECT PRN PO 09/17/17 04:45 09/20/17 04:44 (Betadine 5% Antisepsis Kit) 1 applic SAP BW ARCHITECT PRN EACH NARE 09/17/17 04:45 09/20/17 04:44 (Chlorhexidine 2% Cloth) 3 pack SAP BW ARCHITECT PRN TOPICAL 09/17/17 04:45 09/20/17 04:44 Piperacillin Sod/ Tazobactam Sod 50 ml @ 100 mls/hr Q6H IV 09/18/17 13:00 10/22/17 13:00 Lines PIV Past Medical History Diabetes HTN Hypertriglyceridemia CAD Previous episodes of UTI Past Surgical History Caesarian section Allergies: Coded Allergies: metformin (Unverified Allergy, Severe, Numbness, 07/12/17) clonidine (Unverified Allergy, Unknown, 07/12/17) *MDRO Multi-Drug Resistant Organism (Verified Adverse Reaction, Unknown, 11/12/16) MRSA (buttock wound) - 11/2014 Objective . Vital Signs Date Time Temp Pulse Resp B/P (MAP) Pulse Ox O2 Delivery O2 Flow Rate FiO2 09/18/17 08:00 99.5 86 18 132/62 (85) 93 09/18/17 04:00 98.5 83 19 105/58 (74) 98 09/18/17 00:00 99.6 88 19 125/59 (81) 97 09/17/17 21:18 94 Nasal Cannula 2.00 09/17/17 20:12 88 09/17/17 20:12 88 09/17/17 20:00 98.4 85 19 122/60 (80) 98 09/17/17 16:00 97.8 83 18 115/60 (78) 95 09/17/17 12:00 97.4 83 18 122/63 (82) 96 09/17/17 12:00 94 Nasal Cannula 2.00 . Laboratory Tests Test 09/16/17 17:22 09/17/17 06:35 White Blood Count 19.2 TH/MM3 19.5 TH/MM3 Red Blood Count 3.85 MIL/MM3 3.42 MIL/MM3 Hemoglobin 11.4 GM/DL 10.1 GM/DL Hematocrit 34.8 % 30.1 % Mean Corpuscular Volume 90.5 FL 88.1 FL Mean Corpuscular Hemoglobin 29.7 PG 29.4 PG Mean Corpuscular Hemoglobin Concent 32.8 % 33.4 % Red Cell Distribution Width 13.3 % 13.5 % Platelet Count 275 TH/MM3 248 TH/MM3 Mean Platelet Volume 8.2 FL 8.4 FL Neutrophils (%) (Auto) 94.2 % 86.5 % Lymphocytes (%) (Auto) 3.5 % 5.4 % Monocytes (%) (Auto) 1.5 % 3.4 % Eosinophils (%) (Auto) 0.4 % 4.2 % Basophils (%) (Auto) 0.4 % 0.5 % Neutrophils # (Auto) 18.1 TH/MM3 16.9 TH/MM3 Lymphocytes # (Auto) 0.7 TH/MM3 1.1 TH/MM3 Monocytes # (Auto) 0.3 TH/MM3 0.7 TH/MM3 Eosinophils # (Auto) 0.1 TH/MM3 0.8 TH/MM3 Basophils # (Auto) 0.1 TH/MM3 0.1 TH/MM3 CBC Comment AUTO DIFF AUTO DIFF Differential Total Cells Counted 100 100 Neutrophils % (Manual) 54 % 69 % Band Neutrophils % 35 % 23 % Lymphocytes % 4 % 6 % Monocytes % 1 % 2 % Neutrophils # (Manual) 18.2 TH/MM3 17.9 TH/MM3 Metamyelocytes 5 % Myelocytes 1 % Differential Comment FINAL DIFF MANUAL FINAL DIFF MANUAL Toxic Granulation 1+ Toxic Vacuolation Dohle Bodies PRESENT Platelet Estimate NORMAL NORMAL Platelet Morphology Comment NORMAL NORMAL Red Cell Morphology Comment NORMAL Laboratory Tests Test 09/16/17 17:22 09/16/17 18:12 09/16/17 21:25 09/17/17 06:35 Blood Urea Nitrogen 49 MG/DL 54 MG/DL Creatinine 2.88 MG/DL 2.67 MG/DL Random Glucose 579 MG/DL 139 MG/DL Total Protein 7.4 GM/DL 6.4 GM/DL Albumin 2.5 GM/DL 1.9 GM/DL Calcium Level 9.4 MG/DL 8.1 MG/DL Alkaline Phosphatase 168 U/L 125 U/L Aspartate Amino Transf (AST/SGOT) 40 U/L 89 U/L Alanine Aminotransferase (ALT/SGPT) 33 U/L 45 U/L Total Bilirubin 0.3 MG/DL 0.3 MG/DL Sodium Level 127 MEQ/L 137 MEQ/L Potassium Level 4.3 MEQ/L 3.8 MEQ/L Chloride Level 91 MEQ/L 107 MEQ/L Carbon Dioxide Level 22.5 MEQ/L 19.0 MEQ/L Anion Gap 14 MEQ/L 11 MEQ/L Estimat Glomerular Filtration Rate 20 ML/MIN 22 ML/MIN Lipase 128 U/L Lactic Acid Level 3.1 mmol/L 3.3 mmol/L 1.3 mmol/L Phosphorus Level 3.9 MG/DL Magnesium Level 1.9 MG/DL Hemoglobin A1c 12.2 % Microbiology Date/Time Source Procedure Growth Status 09/17/17 15:12 Blood Peripheral Aerobic Blood Culture - Preliminary NO GROWTH IN 1 DAY Resulted 09/17/17 15:12 Blood Peripheral Anaerobic Blood Culture - Preliminary NO GROWTH IN 1 DAY Resulted 09/17/17 14:59 Blood Peripheral Aerobic Blood Culture - Preliminary NO GROWTH IN 1 DAY Resulted 09/17/17 14:59 Blood Peripheral Anaerobic Blood Culture - Preliminary NO GROWTH IN 1 DAY Resulted 09/16/17 18:02 Blood Peripheral Aerobic Blood Culture - Preliminary Escherichia Coli Resulted 09/16/17 18:02 Anaerobic Blood Culture - Preliminary Escherichia Coli Resulted 09/16/17 18:02 Blood Peripheral Aerobic Blood Culture - Preliminary Escherichia Coli Resulted 09/16/17 18:02 Anaerobic Blood Culture - Preliminary Escherichia Coli Resulted 09/17/17 08:45 Urine Clean Catch Gram Stain - Final Resulted 09/17/17 08:45 Urine Clean Catch Urine Culture Pending Resulted 09/16/17 17:22 Urine Clean Catch Urine Culture - Preliminary Gram Negative Jaime Resulted Imaging Abdomen/Pelvis CT 09/16/17 0000 Signed Impressions: Service Date/Time: Saturday, September 16, 2017 17:27 - CONCLUSION: 1. 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 No obstructing stone or mass observed. Air is seen throughout the right kidney parenchyma, collecting system, and into the renal vein. A small amount of air is seen involving the upper pole of the left kidney near the hilum likely extension from air within the inferior vena cava. There is mild hydronephrosis and hydroureter on the right. No obstruction on the left. Corey Millan Jr., MD Physical Exam GENERAL: awake and alert, not in respiratory distress. Up in chair. Dose off to sleep SKIN: Warm and dry. No generalized rash, no ecchymoses and no evidence of embolic lesions. HEAD: Atraumatic. Normocephalic. No temporal wasting, or tenderness. EYES: [place] conjunctiva. No petechia or hemorrhage. Pupils equal, round and reactive to light. Extraocular movements full and intact. No scleral icterus. No injection or drainage. EARS, NOSE AND THROAT: Nose without bleeding or purulent nasal discharge. No sinus tenderness. Mucous membranes pink and moist. No oral lesions noted. No exudate. No oral thrush. NECK: Trachea midline. Supple and not tender, no meningeal signs. No nuchal rigidity. CARDIOVASCULAR: Regular rate and rhythm. No murmurs, rubs or gallops heard RESPIRATORY: Clear to auscultation. Breath sounds equal bilaterally. No rales , wheezing or rhonchi ABDOMEN: Soft, nondistended, bowel sounds present and normoactive. Mild tenderness on R side, but no guarding. No rebound. NEUROLOGICAL: Awake and alert. Cranial nerves grossly intact. Motor grossly within normal limits. PSYCHIATRIC: Normal affect, calm and cooperative. LINE: No evidence of infection : [place] in place, urine looks clear Assessment & Plan Remarks IMPRESSION E coli sepsis due to emphysematous pyelonephritis on R - S/P cysto and R ureteral stent placement Renal insufficiency Diabetes, poorly controlled Leukocytosis Lethargy, ?could still be from sepsis, ?relative hypoglycemia RECOMMENDATION Continue Zosyn Follow cultures, and adjust antibiotics Monitor progress Repeat labs in AM I will determine course of antibiotics once workup and cultures completed Spoke with daughter ShunAnn MD Sep 18, 2017 11:20
--- NOTE | 2017-09-18 11:39 | HHI.FPPN ---
Subjective Remarks Patient now with a right ureteral stent. Reports less dysuria. Reports no gross hematuria since procedure. Flank and abdominal pain now almost gone. Reports no nausea or vomiting. Had borderline low glucoses overnight, insulin being held except sliding scale insulin. Had some confusion/delirium overnight but clear this morning. Has some lightheadedness with standing. Her insight into diabetes seems poor so we discussed diabetes and its sequelae at length. nursing educator is also consulted. Will attempt to call and update her today. (Eric Bertrand MD R3) Objective Vitals Vital Signs Date Time Temp Pulse Resp B/P (MAP) Pulse Ox O2 Delivery O2 Flow Rate FiO2 09/18/17 08:00 99.5 86 18 132/62 (85) 93 09/18/17 04:00 98.5 83 19 105/58 (74) 98 09/18/17 00:00 99.6 88 19 125/59 (81) 97 09/17/17 21:18 94 Nasal Cannula 2.00 09/17/17 20:12 88 09/17/17 20:12 88 09/17/17 20:00 98.4 85 19 122/60 (80) 98 09/17/17 16:00 97.8 83 18 115/60 (78) 95 09/17/17 12:00 97.4 83 18 122/63 (82) 96 09/17/17 12:00 94 Nasal Cannula 2.00 I/O 09/17/17 09/17/17 09/17/17 09/18/17 09/18/17 09/18/17 07:00 15:00 23:00 07:00 15:00 23:00 Intake Total 0 ml 800 ml 3418 ml 1931 ml Output Total 80 ml 100 ml 650 ml Balance 0 ml 720 ml 3318 ml 1281 ml Intake Oral 0 ml 720 ml 240 ml IV Total 800 ml 2698 ml 1691 ml Output Urine Total 80 ml 100 ml 650 ml # Voids 2 1 # Bowel Movements 0 0 0 (Eric Bertrand MD R3) Result Diagram: 09/17/17 0635 09/17/17 0635 Imaging Last 72 hours Impressions Abdomen/Pelvis CT 09/16/17 0000 Signed Impressions: Service Date/Time: Saturday, September 16, 2017 17:27 - CONCLUSION: 1. 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 No obstructing stone or mass observed. Air is seen throughout the right kidney parenchyma, collecting system, and into the renal vein. A small amount of air is seen involving the upper pole of the left kidney near the hilum likely extension from air within the inferior vena cava. There is mild hydronephrosis and hydroureter on the right. No obstruction on the left. Corey Millan Jr., MD Objective Remarks GENERAL: No distress, sitting up in bed watching TV, eating SKIN: No rashes, ecchymoses or lesions. HEAD: NC/AT EYES: PERRL. EOMI. No conjunctival injection or drainage. ENT: MMM, OP without erythema, tonsillar swelling, or exudate. NECK: Supple, no lymphadenopathy. No JVD. CARDIOVASCULAR: NRRR. Normal S1/S2. No MRG RESPIRATORY: CTAB. No crackles or wheezes. GASTROINTESTINAL: Abdomen soft, non-distended, non-tender now. GENITOURINARY: No CVA tenderness today. MUSCULOSKELETAL: Extremities without clubbing, cyanosis, or edema. NEUROLOGICAL: Awake and alert. Confusion overnight resolved. 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 Now with ureteral stent, may need nephrostomy tube if not significantly improving. Urology and infectious disease are on board. Discharge Planning Pending resolution of sepsis, afebrile, resolved leukocytosis, diabetic education, decent control of diabetes, good outpatient follow up (Eric Bertrand MD R3) Attending Attestation Patient seen and examined. Case reviewed and discussed with the resident team. Agree with plan of care as discussed with me and documented in the resident note. she has some delirium but mild. Per her daughter, "she goes in and out" mentally. She is improved overall with her strength and is sitting up this am. (Desirae Clark MD) Problem List: (1) Emphysematous pyelonephritis ICD Codes: N12 - Tubulo-interstitial nephritis, not specified as acute or chronic Status: Acute Plan: Continued leukocytosis, remains afebrile. Emphysematous pyelonephritis involving the right kidney with mild hydronephrosis. UA with moderate blood, positive nitrites, large leukocyte esterase, few bacteria. Urology on board, she is status post day 1 after ureteral stent on right. Infectious disease also on board, helping to manage antibiotics. Blood culture positive for E.coli, urine with gram negative rods. - Cefepime changed to Zosyn by ID, follow cultures and adjust accordingly. - May require nephrostomy tube if not significantly improving with stent. - Tylenol 650 mg every 6 hours scheduled while awake - Oxycodone 5 and 10 mg every 6 hours for pain scale 3-5 or 6-10, respectively - Zofran 4 mg IV every 8 hours as needed for nausea and vomiting - Control diabetes as below (2) Acute kidney injury ICD Codes: N17.9 - Acute kidney failure, unspecified Status: Acute Plan: Creatinine of 2.88 on admission increased from baseline of about 0.5, improved only slightly today. Likely due to severe sepsis from urinary source plus direct injury to kidney. - IV fluids as above - Monitor renal function - Holding JEANNIE inhibitor currently - Avoid nephrotoxic agents, renally dose medications - Continue normal saline at 125 mls/hr - Will consult nephrology (3) Diabetes mellitus ICD Codes: E11.9 - Type 2 diabetes mellitus without complications Status: Chronic Plan: Very poor control at home, glucose running 200s to 300s per patient, greater than 500 on admission probably from sepsis. A1C 12.2. Has not been taking her oral medications at home and not on insulin. Poor understanding of diabetes. Only on glipizide at home. - Medium dose insulin aspart sliding scale with meals - Glucose checks before meals and at bedtime - Diabetic diet - Consulted clinical staff educator - Consulted case management to assess possible reasons for poor compliance and attendance at office visits (4) Hypertension Status: Chronic Plan: Blood pressures low-normal in setting of sepsis - Hold home lisinopril and amlodipine (5) Dyslipidemia ICD Codes: E78.5 - Dyslipidemia Status: Chronic Plan: Continue home gemfibrozil Not on statin, assess need before discharge (6) FEN/PPX Plan: Fluids: NS at 125 mls/hr Electrolytes: Monitor and replete as needed, monitor renal function Nutrition: Diabetic diet DVT: Heparin 5000 units subcutaneous 3 times a day CODE STATUS: Full code (Eric Bertrand MD R3) Eric Bertrand MD R3 Sep 18, 2017 11:39 Desirae Clark MD Sep 18, 2017 14:19
[2017-09-18 12:00] VITALS: BP 115/61; PULSE 80; RESP 18; TEMP 98.5; O2SAT 96
--- NOTE | 2017-09-18 13:40 | MB ---
cc: ZAMZAM DEL ANGEL MD DATE OF CONSULTATION: 09/18/2017. REASON FOR CONSULTATION: Elevated BUN and creatinine. HISTORY OF PRESENT ILLNESS: This is a 67-year-old female with past medical history of hypertension, diabetes mellitus, hyperlipidemia who came to the hospital with complaint of right-sided abdominal pain and dysuria. I was called to see the patient because of elevated BUN and creatinine. The patient had a creatinine of 2.8 on admission. Previously she had creatinine of 0.4, and this was in 2013. According to the daughter who is sitting at the bedside the patient does not have any known history of renal disease. The patient was found here to have a urinary tract infection and bacteremia in the right kidney. She was found to have pyelonephritis and there was some hydronephrosis and hydroureter. The patient was seen by urology. She had cystoscopy done yesterday with right-sided stent placement. The patient currently has a [place] catheter and she is passing urine. The creatinine today is slightly better at 2.6. The pain in the right side is also slightly better. She has mild nausea. There is no vomiting now. She had nausea and vomiting at home before she came in here. There is no history of diarrhea. She was not taking any nonsteroidal antiinflammatory drugs. PAST MEDICAL HISTORY: 1. Hypertension. 2. Diabetes mellitus. 3. Hyperlipidemia. PAST SURGICAL HISTORY: 1. She just had a cystoscopy done. 2. History of section in the past. REVIEW OF SYSTEMS: The patient denies any nausea or vomiting now. She had nausea and vomiting at home. There is no history of fever. She has right-sided abdominal pain. There is no shortness of breath or chest pain. No palpitations. No history of diarrhea. She has some dysuria at home. There is no history of hematuria. There is no history of renal stones. SOCIAL HISTORY: The patient is . There is no history of smoking or alcoholism. FAMILY HISTORY: Family history is noncontributory. ALLERGIES: She has allergy to clonidine and Metformin. MEDICATIONS: Currently she is on: 1. IV fluids normal saline at 125 /hour. 2. Lopid 300 milligrams twice a day. 3. Aspirin 81 milligrams once a day. 4. Zosyn 2.25 grams IV q. 6 hours. 5. Tylenol as needed. 6. Heparin as needed. 7. Insulin Aspart sliding scale. PHYSICAL EXAMINATION: GENERAL: On examination, the patient is awake and alert and she is sitting in the chair not in acute distress. VITAL SIGNS: Her last blood pressure was 132/62, temperature is 99.5. The lowest recorded blood pressure was 99/54. HEAD, EYES, EARS, NOSE, THROAT: The pupils are mid-constricted. Nonicteric sclerae. Conjunctivae are pale. NECK: The neck is supple. JVD is not elevated. LUNGS: The patient has bilateral decreased air entry with occasional wheezing. HEART: S1 and S2 regular rhythm. ABDOMEN: Abdomen obese, soft and lax. There is no definite tenderness. She has mild tenderness in the right costovertebral angle. EXTREMITIES: She has mild edema. INVESTIGATIONS: White blood cell count is 19.5, hemoglobin 10.1, platelet count of 248,000. Neutrophils 86.5%. Eosinophils 4.2%. Sodium 137, potassium 3.8, chloride 107, bicarbonate 19, BUN 54, creatinine 2.6, glucose 139. Her sugar was 579 two days ago. These labs were all done yesterday. Hemoglobin A1c is 12.2, calcium is 8.1 with phosphorus 3.9. AST 89, ALT 45. Total protein is 6.4, albumin of 1.9. Lactic acid is 1.3. INR 1.1. Urinalysis showing cloudy urine with 100 protein, RBCs 33, WBCs innumerable. Blood culture showing E. Coli. Urine culture showing gram-negative rods. IMAGING STUDIES: CT scan of the abdomen and pelvis was done which shows the right kidney has emphysematous pyelonephritis with dilatation of the right ureteric system and mild hydronephrosis on the right side. ASSESSMENT: 1. Acute kidney injury. 2. Bacteremia. 3. Urinary tract infection and pyelonephritis. 4. Uncontrolled blood sugar with diabetes mellitus. 5. History of hypertension. The patient had a cystoscopy and stenting done yesterday. She has been nonoliguric. The acute kidney injury is a combination of the ATN from the urinary tract infection and the pyelonephritis and bacteremia and possibility of some obstructive uropathy. Now things are improving and she is passing more urine. 1. Continue the antibiotics. 2. Avoid any nephrotoxins. 3. Follow the urine output and the BUN and creatinine. Thank you for the consultation. I will follow the patient while she is in the hospital. Discussed with the daughter at the bedside. MD RAFAELA Adams/JULITO /12:34 PM /1:24 PM
--- NOTE | 2017-09-18 13:49 | HHI.PR ---
Subjective Patient symptoms today feels better. denies flank pain. denies fevers, chills, nausea. Objective Vital Signs Vital Signs Date Time Temp Pulse Resp B/P (MAP) Pulse Ox O2 Delivery O2 Flow Rate FiO2 09/18/17 12:00 98.5 80 18 115/61 (79) 96 09/18/17 08:00 99.5 86 18 132/62 (85) 93 09/18/17 04:00 98.5 83 19 105/58 (74) 98 09/18/17 00:00 99.6 88 19 125/59 (81) 97 09/17/17 21:18 94 Nasal Cannula 2.00 09/17/17 20:12 88 09/17/17 20:12 88 09/17/17 20:00 98.4 85 19 122/60 (80) 98 09/17/17 16:00 97.8 83 18 115/60 (78) 95 Intake & Output 09/18/17 09/18/17 07:00 19:00 Intake Total 1931 ml Output Total 650 ml Balance 1281 ml Intake Oral 240 ml IV Total 1691 ml Output Urine Total 650 ml # Bowel Movements 0 Result Diagram: 09/17/1763409/17/1735 Objective Remarks NAD. A/O x 3 abd soft, distended. jeffers draining light pink, cloudy urine. Medications and IVs Current Medications Medications (Trade) Dose Ordered Sig/Alisha Route Start Time Stop Time Status Last Admin (NS Flush) 2 ml UNSCH PRN IV FLUSH 09/16/17 19:30 (NS Flush) 2 ml BID IV FLUSH 09/16/17 21:00 09/18/17 09:46 (Norvasc) 10 mg DAILY PO 09/17/17 09:00 Future Hold 09/18/17 09:44 (Lopid) 300 mg BIDAC PO 09/17/17 07:00 09/18/17 06:20 (Prinivil) 40 mg DAILY PO 09/17/17 09:00 Future Hold 09/17/17 09:56 (Ecotrin Ec) 81 mg DAILY PO 09/17/17 09:00 09/18/17 09:44 Sodium Chloride 1,000 ml @ 125 mls/hr Q8H IV 09/16/17 20:15 09/18/17 06:19 (Tylenol) 650 mg Q6HR PO 09/17/17 00:00 09/18/17 11:49 (Roxicodone) 5 mg Q6H PRN PO 09/16/17 20:15 (Roxicodone) 10 mg Q6H PRN PO 09/16/17 20:15 09/18/17 09:51 (Narcan Inj) 0.4 mg UNSCH X1 PRN IV PUSH 09/16/17 20:15 10/16/17 20:14 (Zofran Inj) 4 mg Q8HR PRN IV PUSH 09/16/17 20:15 (Levemir Inj) 10 units Q12HR SQ 09/16/17 21:00 Future Hold 09/17/17 20:40 (NovoLOG INJ) 8 units TIDAC SQ 09/17/17 08:00 Future Hold 09/17/17 17:34 (D50w (Vial) Inj) 50 ml UNSCH PRN IV PUSH 09/16/17 20:15 (Glucagon Inj) 1 mg UNSCH PRN OTHER 09/16/17 20:15 (NovoLOG SUPPLEMENTAL SCALE) 1 ACHS SLIDING SCALE SQ 09/16/17 21:00 09/17/17 13:05 (Heparin Inj) 5,000 units Q8HR SQ 09/16/17 22:00 09/18/17 13:14 Lactated Ringer's 1,000 ml @ 30 mls/hr Q24H PRN IV 09/17/17 04:45 09/20/17 04:44 Sodium Chloride 500 ml @ 30 mls/hr [id number] PRN IV 09/17/17 04:45 09/20/17 04:44 (Lopressor) 25 mg TON CYLINDER INSPECTOR PRN PO 09/17/17 04:45 09/20/17 04:44 (Betadine 5% Antisepsis Kit) 1 applic TON CYLINDER INSPECTOR PRN EACH NARE 09/17/17 04:45 09/20/17 04:44 (Chlorhexidine 2% Cloth) 3 pack TON CYLINDER INSPECTOR PRN TOPICAL 09/17/17 04:45 09/20/17 04:44 Piperacillin Sod/ Tazobactam Sod 50 ml @ 100 mls/hr Q6H IV 09/18/17 13:00 09/18/17 13:00 Assessment and Plan Problem List: (1) Emphysematous pyelonephritis ICD Code: N12 - Tubulo-interstitial nephritis, not specified as acute or chronic Status: Acute Assessment and Plan s/p cystoscopy, right ureteral stent insertion -Antibiotics per ID -F/U labs -likely d/c jeffers in A.M. -Repeat CT scan early this week -Monitor closely. Shahram Ramirez MD Sep 18, 2017 13:49
[2017-09-18 16:00] VITALS: BP 144/75; PULSE 82; RESP 18; TEMP 97.6; O2SAT 95
[2017-09-18 19:17] LABS: HEMATOCRIT 28.1 % (35.0-46.0); MEAN CELL VOLUME 90.2 FL (80.0-100.0); MEAN CORPUSCULAR HEMOGLOBIN 29.4 PG (27.0-34.0); MEAN CORPUSCULAR HGB CONC 32.6 % (32.0-36.0); PLATELET COUNT 239 TH/MM3 (150-450); RED BLOOD COUNT 3.11 MIL/MM3 (4.00-5.30); RED CELL DISTRIBUTION WIDTH 14.1 % (11.6-17.2); REVIEW FLAG FINAL; WHITE BLOOD COUNT 13.7 TH/MM3 (4.0-11.0)
[2017-09-18 19:37] LABS: BICARBONATE 17.3 MEQ/L (21.0-32.0); POTASSIUM 3.9 MEQ/L (3.5-5.1)
[2017-09-18 20:00] VITALS: BP 106/75; PULSE 86; PULSE 88; RESP 18; TEMP 99; O2SAT 94
[2017-09-19] VITALS (8 sets, daily range): BP systolic 140–168; BP diastolic 59–73; PULSE 77–87; RESP 16–21; TEMP 98.1–100.6; O2SAT 92–96
[2017-09-19] MEDS: PIPERACIL-TAZO 2.25 GM PREMIX 50 ML IV SCH ×2 (02:27→06:23)
[2017-09-19] MEDS: GEMFIBROZIL 600 MG TAB PO SCH ×2 (06:22→18:13)
[2017-09-19] MEDS: ACETAMINOPHEN 325 MG TAB PO SCH ×5 (06:23→23:24)
[2017-09-19] MEDS: HEPARIN SODIUM - SQ 10,000 UNITS/ML VIAL SQ SCH ×2 (06:23→13:42)
[2017-09-19] MEDS: INSULIN ASPART SUPPLEMENTAL SCALE SQ SCH ×4 (07:45→22:17)
[2017-09-19 08:13] LABS: HEMATOCRIT 28.5 % (35.0-46.0); MEAN CELL VOLUME 90.8 FL (80.0-100.0); MEAN CORPUSCULAR HEMOGLOBIN 29.6 PG (27.0-34.0); MEAN CORPUSCULAR HGB CONC 32.6 % (32.0-36.0); PLATELET COUNT 250 TH/MM3 (150-450); RED BLOOD COUNT 3.13 MIL/MM3 (4.00-5.30); RED CELL DISTRIBUTION WIDTH 14.8 % (11.6-17.2); REVIEW FLAG FINAL; WHITE BLOOD COUNT 12.5 TH/MM3 (4.0-11.0)
[2017-09-19] MEDS: SODIUM CHLORIDE 0.9% FLUSH 10 ML FLUSH IV FLUSH SCH ×2 (08:57→21:00)
[2017-09-19] MEDS: ASPIRIN EC 81 MG TABEC PO SCH (08:57)
[2017-09-19] MEDS: SODIUM CHLOR 0.9% 1000 ML INJ 1,000 ML IV SCH ×2 (09:03→19:00)
[2017-09-19 09:19] LABS: ANION GAP 17 MEQ/L (5-15); AST (GOT) 39 U/L (15-37); BICARBONATE 11.8 MEQ/L (21.0-32.0); BLOOD UREA NITROGEN 58 MG/DL (7-18); CHLORIDE 107 MEQ/L (98-107); GLOMERULAR FILTRATION RATE 26 ML/MIN (>89); POTASSIUM 4.2 MEQ/L (3.5-5.1); SODIUM (NA) 136 MEQ/L (136-145)
[2017-09-19 09:20] LABS: ALT (GPT) 34 U/L (10-53)
[2017-09-19 09:22] LABS: ALKALINE PHOSPHATASE 134 U/L (45-117); TOTAL BILIRUBIN ADULT 0.8 MG/DL (0.2-1.0)
--- NOTE | 2017-09-19 10:43 | HHI.IDPN ---
Subjective Subjective Remarks Patient is a 67-year-old female, presented to the hospital complaining of three- day history of right-sided abdominal pain, and right flank pain. This was associated with nausea and vomiting as well as frequency and dysuria. She denies any hematuria. In the emergency room she was found to have a white count of 19,000. She has significant pyuria. Creatinine was also elevated. CT of the abdomen and pelvis showed evidence of air in the right kidney, right renal pelvis and also some air extending in the renal vein into the IVC. There is also a small amount of air seen in the hilum of the left kidney. There was some right hydronephrosis and ureter, but no kidney stones seen to cause obstruction. Patient has had prior history of bladder and kidney infection but not this severe. Patient also was found to have very high blood glucose. 2 blood cultures done and are now reported as growing gram-negative rods. Patient underwent surgery, and had cystoscopy and placement of a right ureteral stent. She has been afebrile since admission. Her white count remains elevated at 19,000. Infectious disease consultation has been requested to evaluate the patient with emphysematous pyelonephritis. Notes reviewed Spoke with daughter Melodie andres Mental status still not baseline Awake, but still somewhat lethargic, glazes over, confused No new (+) BC BC with E coli UC E coli Creatinine slightly lower WBC better Antibiotics I attest that I obtained, updated or reviewed the home and current medications. Zosyn Current Medications Medications (Trade) Dose Ordered Sig/Alisha Route Start Time Stop Time Status Last Admin (NS Flush) 2 ml UNSCH PRN IV FLUSH 09/16/17 19:30 (NS Flush) 2 ml BID IV FLUSH 09/16/17 21:00 09/18/17 09:46 (Norvasc) 10 mg DAILY PO 09/17/17 09:00 Future Hold 09/18/17 09:44 (Lopid) 300 mg BIDAC PO 09/17/17 07:00 09/19/17 06:22 (Prinivil) 40 mg DAILY PO 09/17/17 09:00 Future Hold 09/17/17 09:56 (Ecotrin Ec) 81 mg DAILY PO 09/17/17 09:00 09/19/17 08:57 Sodium Chloride 1,000 ml @ 125 mls/hr Q8H IV 09/16/17:15 09/19/17 09:03 (Tylenol) 650 mg Q6HR PO 09/17/17 00:00 09/19/17 06:23 (Roxicodone) 5 mg Q6H PRN PO 09/16/17 20:15 (Roxicodone) 10 mg Q6H PRN PO 09/16/17 20:15 09/18/17 15:43 (Narcan Inj) 0.4 mg UNSCH X1 PRN IV PUSH 09/16/17 20:15 10/16/17 20:14 (Zofran Inj) 4 mg Q8HR PRN IV PUSH 09/16/17 20:15 (Levemir Inj) 10 units Q12HR SQ 09/16/17 21:00 Future Hold 09/17/17 20:40 (NovoLOG INJ) 8 units TIDAC SQ 09/17/17 08:00 Future Hold 09/17/17 17:34 (D50w (Vial) Inj) 50 ml UNSCH PRN IV PUSH 09/16/17 20:15 (Glucagon Inj) 1 mg UNSCH PRN OTHER 09/16/17 20:15 (NovoLOG SUPPLEMENTAL SCALE) 1 ACHS SLIDING SCALE SQ 09/16/17 21:00 09/17/17 13:05 (Heparin Inj) 5,000 units Q8HR SQ 09/16/17 22:00 09/19/17 06:23 Lactated Ringer's 1,000 ml @ 30 mls/hr Q24H PRN IV 09/17/17 04:45 09/20/17 04:44 Sodium Chloride 500 ml @ 30 mls/hr [id number] PRN IV 09/17/17 04:45 09/20/17 04:44 (Lopressor) 25 mg TRAVEL DIRECTOR PRN PO 09/17/17 04:45 09/20/17 04:44 (Betadine 5% Antisepsis Kit) 1 applic TRAVEL DIRECTOR PRN EACH NARE 09/17/17 04:45 09/20/17 04:44 (Chlorhexidine 2% Cloth) 3 pack TRAVEL DIRECTOR PRN TOPICAL 09/17/17 04:45 09/20/17 04:44 Piperacillin Sod/ Tazobactam Sod 50 ml @ 100 mls/hr Q6H IV 09/18/17 13:00 09/19/17 06:23 Lines PIV Past Medical History Diabetes HTN Hypertriglyceridemia CAD Previous episodes of UTI Past Surgical History Caesarian section Allergies: Coded Allergies: metformin (Unverified Allergy, Severe, Numbness, 07/12/17) clonidine (Unverified Allergy, Unknown, 07/12/17) *MDRO Multi-Drug Resistant Organism (Verified Adverse Reaction, Unknown, 11/12/16) MRSA (buttock wound) - 11/2014 Objective . Vital Signs Date Time Temp Pulse Resp B/P (MAP) Pulse Ox O2 Delivery O2 Flow Rate FiO2 09/19/17 08:30 Room Air 09/19/17 08:23 92 09/19/17 08:12 84 09/19/17 04:00 99.7 87 18 145/67 (93) 93 09/19/17 04:00 Room Air 09/19/17 00:00 Room Air 09/19/17 00:00 98.4 82 18 143/59 (87) 94 09/18/17 22:10 21 09/18/17 20:00 99.0 86 18 106/75 (85) 94 09/18/17 20:00 Room Air 09/18/17 20:00 88 09/18/17 16:00 97.6 82 18 144/75 (98) 95 09/18/17 12:00 98.5 80 18 115/61 (79) 96 09/19/17 09/19/17 09/20/17 15:00 23:00 07:00 Intake Total 1000 ml Balance 1000 ml IV Total 1000 ml . Laboratory Tests Test 09/18/17 18:38 09/19/17 06:50 White Blood Count 13.7 TH/MM3 12.5 TH/MM3 Red Blood Count 3.11 MIL/MM3 3.13 MIL/MM3 Hemoglobin 9.2 GM/DL 9.3 GM/DL Hematocrit 28.1 % 28.5 % Mean Corpuscular Volume 90.2 FL 90.8 FL Mean Corpuscular Hemoglobin 29.4 PG 29.6 PG Mean Corpuscular Hemoglobin Concent 32.6 % 32.6 % Red Cell Distribution Width 14.1 % 14.8 % Platelet Count 239 TH/MM3 250 TH/MM3 Mean Platelet Volume 8.4 FL 8.5 FL Laboratory Tests Test 09/18/17 18:38 09/19/17 06:50 Blood Urea Nitrogen 55 MG/DL 58 MG/DL Creatinine 2.39 MG/DL 2.27 MG/DL Random Glucose 109 MG/DL 138 MG/DL Calcium Level 8.3 MG/DL 8.5 MG/DL Sodium Level 136 MEQ/L 136 MEQ/L Potassium Level 3.9 MEQ/L 4.2 MEQ/L Chloride Level 106 MEQ/L 107 MEQ/L Carbon Dioxide Level 17.3 MEQ/L 11.8 MEQ/L Anion Gap 13 MEQ/L 17 MEQ/L Estimat Glomerular Filtration Rate 25 ML/MIN 26 ML/MIN Total Protein 6.3 GM/DL Albumin 1.6 GM/DL Alkaline Phosphatase 134 U/L Aspartate Amino Transf (AST/SGOT) 39 U/L Alanine Aminotransferase (ALT/SGPT) 34 U/L Total Bilirubin 0.8 MG/DL Microbiology Date/Time Source Procedure Growth Status 09/17/17 15:12 Blood Peripheral Aerobic Blood Culture - Preliminary NO GROWTH IN 1 DAY Resulted 09/17/17 15:12 Blood Peripheral Anaerobic Blood Culture - Preliminary NO GROWTH IN 1 DAY Resulted 09/17/17 14:59 Blood Peripheral Aerobic Blood Culture - Preliminary NO GROWTH IN 1 DAY Resulted 09/17/17 14:59 Blood Peripheral Anaerobic Blood Culture - Preliminary NO GROWTH IN 1 DAY Resulted 09/16/17 18:02 Blood Peripheral Aerobic Blood Culture - Final Escherichia Coli Complete 09/16/17 18:02 Anaerobic Blood Culture - Final Escherichia Coli Complete 09/16/17 18:02 Blood Peripheral Aerobic Blood Culture - Final Escherichia Coli Complete 09/16/17 18:02 Anaerobic Blood Culture - Final Escherichia Coli Complete 09/17/17 08:45 Urine Clean Catch Gram Stain - Final Complete 09/17/17 08:45 Urine Culture - Final Escherichia Coli Complete 09/16/17 17:22 Urine Clean Catch Urine Culture - Final Escherichia Coli Complete Imaging Abdomen/Pelvis CT 09/16/17 0000 Signed Impressions: Service Date/Time: Saturday, September 16, 2017 17:27 - CONCLUSION: 1. 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 No obstructing stone or mass observed. Air is seen throughout the right kidney parenchyma, collecting system, and into the renal vein. A small amount of air is seen involving the upper pole of the left kidney near the hilum likely extension from air within the inferior vena cava. There is mild hydronephrosis and hydroureter on the right. No obstruction on the left. Corey Millan Jr., MD Physical Exam GENERAL: awake, glazes over at times during conversatio, not in respiratory distress. Confused SKIN: Warm and dry. No generalized rash, no ecchymoses and no evidence of embolic lesions. HEAD: Atraumatic. Normocephalic. No temporal wasting, or tenderness. EYES: Rena Lara conjunctiva. No petechia or hemorrhage. Pupils equal, round and reactive to light. Extraocular movements full and intact. No scleral icterus. No injection or drainage. EARS, NOSE AND THROAT: Nose without bleeding or purulent nasal discharge. No sinus tenderness. Mucous membranes pink and moist. No oral lesions noted. No exudate. No oral thrush. NECK: Trachea midline. Supple and not tender, no meningeal signs. No nuchal rigidity. CARDIOVASCULAR: Regular rate and rhythm. No murmurs, rubs or gallops heard RESPIRATORY: Clear to auscultation. Breath sounds equal bilaterally. No rales , wheezing or rhonchi ABDOMEN: Soft, nondistended, bowel sounds present and normoactive. Mild tenderness on R side, but no guarding. No rebound. NEUROLOGICAL: Awake and alert. Cranial nerves grossly intact. Motor grossly within normal limits. PSYCHIATRIC: Normal affect, calm and cooperative. LINE: No evidence of infection : [place] in place, urine with sediment Assessment & Plan Remarks IMPRESSION E coli sepsis due to emphysematous pyelonephritis on R - S/P cysto and R ureteral stent placement Renal insufficiency Diabetes, poorly controlled Leukocytosis Lethargy, ?could still be from sepsis, ?relative hypoglycemia - ?due to Zosyn RECOMMENDATION Change Zosyn to Rocephin Repeat UA and C/S Repeat CT A/P per urology Follow cultures Monitor progress Monitor mental status Spoke with daughter SherkaushikAnn Garcia MD Sep 19, 2017 10:43
[2017-09-19] MEDS ORDERED: cefTRIAXone INJ 2,000 MG in SODIUM CHLORIDE 0.9% INJ 100 ML IV SCH (13:00)
--- NOTE | 2017-09-19 13:31 | RADRPT ---
EXAM DATE/TIME: 09/19/2017 12:49 CORRECTION Corrected on: September 23, 2017; CORRECTION Corrected on: September 23, 2017; removed neck from location [facility] COMPARISON: No previous studies available for comparison. INDICATIONS : Altered mental status. MEDICAL HISTORY : Hypertension. Diabetes mellitus type 2. SURGICAL HISTORY : section. ENCOUNTER: Subsequent ACUITY: 3 day PAIN SCORE: 0/10 LOCATION: cranial TECHNIQUE: Multiplanar, multisequence MRI of the brain was performed without contrast. IV contrast was not used due to depressed GFR of 26. FINDINGS: CEREBRUM: The ventricles are normal for age. No evidence of midline shift, mass lesion, hemorrhage or acute in farction. No extraaxial fluid collections are seen. The pituitary gland and suprasellar cistern are normal in configuration. WHITE MATTER: No significant signal abnormalities are seen in the white matter. POSTERIOR FOSSA: There is a small area of signal abnormality in the cortex of the lateral mid left cerebellar hemisphe re characterized by T2 prolongation, mild restricted diffusion, and susceptibility artifact. The cer ebellum and brainstem are otherwise intact. The 4th ventricle is midline. The cerebellopontine angle is unremarkable. The cerebellar tonsils are normal in position. DIFFUSION IMAGING: Focal 5 mm area of restricted diffusion in the cortex of the mid left cerebellar hemisphere, confirme d on the ADC map parametric images.. No focal restricted diffusion in the supratentorial brain. EXTRACRANIAL: The visualized portions of the orbits and paranasal sinuses are unremarkable. CONCLUSION: 1. Small acute or subacute left cerebellar cortical nonhemorrhagic infarction. 2. No abnormalities in the supratentorial brain. Corey Coley MD on September 19, 2017 at 13:26 Board Certified Radiologist. This report was verified electronically. Jean Marie Multani on September 23, 2017 at 15:04 Board Certified Radiologist. This report was verified electronically.
[2017-09-19 14:16] LABS: BACTERIA, URINE RARE /hpf; BLOOD, URINE MOD (NEG); COMMENT (UR) CULTURE INDICATED; CULTURE IF INDICATED CULTURE INDICATED; GLUCOSE,URINE NEG (NEG); KETONE, URINE 10 mg/dL (NEG); MUCUS URINE FEW /lpf (OCC); NITRITE,URINE NEG (NEG); SQUAMOUS EPITHELIAL CELL URINE <1 /hpf (0-5); URINE COLOR YELLOW (YELLW/STRAW)
--- NOTE | 2017-09-19 14:44 | HHI.FPPN ---
Subjective Remarks Patient drowsy this morning, slow to respond to questions. Daughter at bedside, stating this is not her baseline. She does answer questions but takes a while to respond and stares off a lot. Dysuria resolved, minimal flank pain compared to admission. Ate breakfast this morning. (Eric Bertrand MD R3) Objective Vitals Vital Signs Date Time Temp Pulse Resp B/P (MAP) Pulse Ox O2 Delivery O2 Flow Rate FiO2 09/19/17 12:00 100.6 83 16 140/73 (95) 95 09/19/17 08:30 Room Air 09/19/17 08:23 92 09/19/17 08:12 84 09/19/17 08:00 98.5 83 16 147/70 (95) 94 09/19/17 04:00 99.7 87 18 145/67 (93) 93 09/19/17 04:00 Room Air 09/19/17 00:00 Room Air 09/19/17 00:00 98.4 82 18 143/59 (87) 94 09/18/17 22:10 21 09/18/17 20:00 99.0 86 18 106/75 (85) 94 09/18/17 20:00 Room Air 09/18/17 20:00 88 09/18/17 16:00 97.6 82 18 144/75 (98) 95 I/O 09/18/17 09/18/17 09/18/17 09/19/17 09/19/17 09/19/17 07:00 15:00 23:00 07:00 15:00 23:00 Intake Total 1931 ml 780 ml 1085 ml 1000 ml Output Total 650 ml 350 ml 600 ml Balance 1281 ml 430 ml 485 ml 1000 ml Intake Oral 240 ml 780 ml 120 ml IV Total 1691 ml 965 ml 1000 ml Output Urine Total 650 ml 350 ml 600 ml # Bowel Movements 0 0 0 (Eric Bertrand MD R3) Result Diagram: 09/19/17 0650 09/19/17 0650 Imaging Last 72 hours Impressions Brain MRI 09/19/17 0000 Signed Impressions: Service Date/Time: Tuesday, September 19, 2017 12:49 - CONCLUSION: 1. Small acute or subacute left cerebellar cortical nonhemorrhagic infarction. 2. No abnormalities in the supratentorial brain. Corey Coley MD Objective Remarks GENERAL: Sitting up in bed, no distress, stares off a lot, slow to respond to questions, knows she's in the hospital at [facility] but takes a long time to answer orientation questions and forgets you've asked a question. SKIN: No rashes, ecchymoses or lesions. HEAD: NC/AT EYES: PERRL. EOMI. No conjunctival injection or drainage. ENT: No nasal discharge, no oral secretions NECK: Supple, no lymphadenopathy. No JVD. CARDIOVASCULAR: RRR, no murmurs, rubs, or gallops, pulses symmetrical. RESPIRATORY: CTAB. No crackles or wheezes. GASTROINTESTINAL: Abdomen soft, non-distended, non-tender to palpation. GENITOURINARY: No CVA tenderness MUSCULOSKELETAL: Extremities without clubbing, cyanosis, or edema. NEUROLOGICAL: Awake, more confused than yesterday, slow to answer questions, drowsy compared to yesterday. Increased difficulty walking to bathroom. Normal strength and sensation peripherally. Symmetrical smile. EOMI. PERRLA. 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 Now with ureteral stent, may need nephrostomy tube if not significantly improving. Urology and infectious disease are on board. Also with delirium and finding of small acute vs. subacute infarction of left cortex of cerebellum. Discharge Planning Pending resolution of sepsis, afebrile, resolved leukocytosis, diabetic education, decent control of diabetes, good outpatient follow up (Eric Bertrand MD R3) Attending Attestation A detailed discussion with Dr Bertrand about patients admission and hospital course was held this morning, patient was then interviewed and examined, Agree with Asssessment and Plan, See new Orders.Case discussed with daughter delirium workup started (French Salter MD) Problem List: (1) Emphysematous pyelonephritis ICD Codes: N12 - Tubulo-interstitial nephritis, not specified as acute or chronic Status: Acute Plan: White count trending down, Tmax 100.6 this afternoon. Emphysematous pyelonephritis involving the right kidney with mild hydronephrosis. UA with moderate blood, positive nitrites, large leukocyte esterase, few bacteria. Urology on board, she is status post day 2 after ureteral stent on right. Infectious disease also on board, helping to manage antibiotics. Blood culture positive for E.coli, urine with gram negative rods. - Cefepime changed to Zosyn by ID, now switched to Ceftriaxone on 09/19 in accordance with sensitivities. - May require nephrostomy tube if not significantly improving with stent. - Tylenol 650 mg every 6 hours scheduled while awake - Oxycodone decreased to 5 mg PRN for pain due to increased delirium. - Zofran 4 mg IV every 8 hours as needed for nausea and vomiting - Control diabetes as below - Will need repeat CT scan of kidneys this week to assess progress of treatment and determine next steps, will defer to urology (2) Acute ischemic stroke ICD Codes: I63.9 - Cerebral infarction, unspecified Status: Acute Plan: MRI brain ordered this morning due to altered mental status, no focal neurological deficit. Small acute versus subacute infarction of the left cerebellar cortex about 5 mm. Discussed finding with radiologist, Dr. Coley. He suggests that the infarction is anywhere from hours to several days old. He suggests that it does not correlate with her symptoms and is likely to not have any neurological effects given its location and size. He suggests it likely came from an end artery as opposed to a major vessel. He suggests the possibility of a small septic emboli as the cause. - On aspirin 81 mg daily - Add a statin, continue gemfibrozil from home - HOB flat, NPO until swallow evaluation, although unlikely to affect her swallowing - ECHO to assess for possible source of embolization - Cardiac monitoring, rule out an arrhythmia. - Has bilateral SCD's and prophylactic heparin. - Check lipid profile. - Stop metoprolol, permissive hypertension for now - Carotid Doppler ordered - Consult neurology. (3) Delirium due to another medical condition ICD Codes: F05 - Delirium due to known physiological condition Status: Acute Plan: Increasing delirium - Blinds open in day, closed at night - Minimal distractions at night - Limit sedating medications, decreased pain medication - Avoid restraints as much as possible - Family by bedside as much as possible - Frequent re-orientation. - Treat underlying illness (4) Acute kidney injury ICD Codes: N17.9 - Acute kidney failure, unspecified Status: Acute Plan: Creatinine of 2.88 on admission increased from baseline of about 0.5, continuing to trend down. - Monitor renal function - Holding JEANNIE inhibitor - Avoid nephrotoxic agents, renally dose medications - Continue normal saline at 125 mls/hr - Nephrology on board (5) Diabetes mellitus ICD Codes: E11.9 - Type 2 diabetes mellitus without complications Status: Chronic Plan: Very poor control at home, glucose running 200s to 300s per patient, greater than 500 on admission probably from sepsis. A1C 12.2. Has not been taking her oral medications at home and not on insulin. Poor understanding of diabetes. Only on glipizide at home. - Decreased to low sliding scale insulin due to borderline low glucoses in hospital. - Glucose checks before meals and at bedtime - Diabetic diet if she passes swallow eval - Consulted tobacco educator - Consulted case management to assess possible reasons for poor compliance and attendance at office visits - Likely will need insulin at home (6) Hypertension Status: Chronic Plan: Blood pressures low-normal in setting of sepsis - Hold home lisinopril and amlodipine - Hold metoprolol given permissive hypertension with acute CVA (7) Dyslipidemia ICD Codes: E78.5 - Dyslipidemia Status: Chronic Plan: Continue home gemfibrozil Started Pravastatin 40 mg daily (8) FEN/PPX Plan: Fluids: NS at 125 mls/hr Electrolytes: Monitor and replace as needed, monitor renal function Nutrition: Diabetic diet DVT: Heparin 5000 units subcutaneous 3 times a day, bilateral SCD's CODE STATUS: Full code (Eric Bertrand MD R3) Eric Bertrand MD R3 Sep 19, 2017 14:44 French Salter MD Sep 20, 2017 14:57
[2017-09-19 18:04] LABS: BLOOD GAS BASE EXCESS -12.4 mmol/L (-2-2); BLOOD GAS CARBOXYHEMOGLOBIN 1.5 % (0-4); BLOOD GAS HCO3 13 mmol/L (22-26); BLOOD GAS METHEMOGLOBIN 1.1 % (0-2); BLOOD GAS O2 HGB SATURATION 92 % (90-100); BLOOD GAS OXYGEN CONTENT 12.6 Vol % (12.0-20.0); BLOOD GAS PCO2 29 mmHg (38-42); BLOOD GAS PO2 83 mmHg (61-120); BLOOD GAS TOTAL HGB 9.6 G/DL (12.0-16.0); TEMP CORR TO 98.6
[2017-09-19 18:06] LABS: CRITICAL VALUE YES; DRAW SITE RT RADIAL; FIO2 21 %; NUMBER OF ARTERIAL PUNCTURES 1; OXYGEN DEVICE ROOM AIR; STAT YES; ULNAR PULSE PRESENT
--- NOTE | 2017-09-19 19:42 | HHI.NPPN ---
Subjective History of Present Illness 67-year-old female with past medical history of hypertension, diabetes mellitus, hyperlipidemia who came to the hospital with complaint of right-sided abdominal pain and dysuria. I was called to see the patient because of elevated BUN and creatinine. The patient had a creatinine of 2.8 on admission. Previously she had creatinine of 0.4, and this was in 2013. Additional Remarks Patient is alert,but not fully oriented. Objective Data Data 09/19/17 09/20/17 19:00 07:00 Intake Total 1000 ml Output Total 850 ml Balance 150 ml IV Total 1000 ml Output Urine Total 850 ml Vital Signs Date Time Temp Pulse Resp B/P (MAP) Pulse Ox O2 Delivery O2 Flow Rate FiO2 09/19/17 16:00 Room Air 09/19/17 16:00 98.2 77 17 141/64 (89) 96 09/19/17 12:00 100.6 83 16 140/73 (95) 95 09/19/17 08:30 Room Air 09/19/17 08:23 92 09/19/17 08:12 84 09/19/17 08:00 98.5 83 16 147/70 (95) 94 09/19/17 04:00 99.7 87 18 145/67 (93) 93 09/19/17 04:00 Room Air 09/19/17 00:00 Room Air 09/19/17 00:00 98.4 82 18 143/59 (87) 94 09/18/17 22:10 21 09/18/17 20:00 99.0 86 18 106/75 (85) 94 09/18/17 20:00 Room Air 09/18/17 20:00 88 -: 09/19/17 0650 09/19/17 0650 Microbiology 09/19/17 Urine Culture, Received Pending Physical Exam General Appearance: No Acute Distress, Comfortable Eyes Eye Exam: Pupils Equal Throat Throat Exam: Oral Mucosa Rentchler & Moist Neck Neck Exam: Neck Supple Pulmonary Resp Exam: Breath Sounds Equal, Rhonchi, Decreased Bases, Diminished Breath Sounds Cardiology CV Exam: Regular, Normal Sinus Rhythm Gastrointestinal/Abdomen GI Exam: Soft, Non-Tender, Bowel Sounds Present Extremeties Extremities Exam: Trace Edema Neurologic Neuro Exam: Alert, Awake Assessment/Plan Assessment Summary: DELLA/Acute Renal Failure Problem List: (1) Essential hypertension ICD Codes: I10 - Essential hypertension Status: Acute (2) Leukocytosis ICD Codes: D72.829 - Leukocytosis Status: Acute (3) Pyelonephritis ICD Codes: N12 - Pyelonephritis Status: Acute (4) Sepsis ICD Codes: A41.9 - Sepsis, unspecified organism Status: Acute (5) Acute kidney injury ICD Codes: N17.9 - Acute kidney failure, unspecified Status: Acute Plan Patient has Acute kidney injury. Differential will be ATN from sepsis/UTI/Pyelonephritis. Also an element of obstructive uropathy. Post cystoscopy and stent placement. Non oliguric. Creatinine is slightly better. Repeat culture still positive. Has E. Coli sepsis. Continue ceftriaxone, ID is following. Cardiology consulted, possible TERRELL. Problem Qualifiers (1) Leukocytosis: Qualified Codes: D72.825 - Bandemia (2) Sepsis: Qualified Codes: A41.9 - Sepsis, unspecified organism Pita Huitron MD Sep 19, 2017 19:42
--- NOTE | 2017-09-19 19:55 | RADRPT ---
EXAM DATE/TIME: 09/19/2017 16:45 [facility] COMPARISON: No previous studies available for comparison. INDICATIONS : Cerebrovascular accident. MEDICAL HISTORY : Hypercholesterolemia. Methicillin-resistant Staphylococcus aureus. Dysuria. Measles. Fever. SURGICAL HISTORY : section. ENCOUNTER: Initial ACUITY: 1 day PAIN SCORE: 0/10 LOCATION: Bilateral neck PEAK SYSTOLIC VELOCITIES (cm/sec): ICA/CCA RATIO: Right: 1.9 Left: 1.4 ICA: Right: 119 Left: 138 CCA: Right: 61 Left: 100 ECA: Right: 130 Left: 116 VERTEBRAL: Right: 76 antegrade Left: 109 antegrade Elevated flow velocities and ICA/CCA ratios have been found to correlate with increased degrees of vessel stenosis, calculated as percentage of diameter relative to a normal segment of distal ICA/CCA FINDINGS: RIGHT CAROTID: Moderate eccentric plaquing at the right carotid bifurcation with mild flow acceleration. LEFT CAROTID: Moderate eccentric plaquing at the left carotid bifurcation with mild flow velocity acceleration VERTEBRAL ARTERIES: Antegrade flow is seen in both vertebral arteries. MISCELLANEOUS: None. CONCLUSION: Moderate disease in the carotid bifurcations bilaterally with subjective measures suggesting stenosis potentially on the order of 50-60% Maycol Merritt MD on September 19, 2017 at 19:51 Board Certified Radiologist. This report was verified electronically.
[2017-09-19 21:37] LABS: FREE T4 0.88 NG/DL (0.76-1.46); TOTAL PROTEIN SPE 6.1 GM/DL (6.0-7.6)
[2017-09-19] MEDS: PRAVASTATIN SOD 40 MG TAB PO SCH (22:16)
--- NOTE | 2017-09-19 22:30 | MB ---
cc: ANDREINA BYERS M.D. DATE OF CONSULTATION 09/19/2017 REASON FOR ADMISSION A 67-year-old with a history of hypertension, insulin dependent diabetes, hypercholesterolemia, I am asked to see her for mental status change. 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 Admitted 09/16/2017 right side abdominal pain, quite severe, some vomiting, temperature to 102, dysuria, urinary frequency, blood sugar in the 200s-300s at home. She was noted to be awake and alert initially when she was admitted on the . At midnight on the she was noted to have some lethargy. She seemed confused. This was postop. She had surgery on the , evidently a purulent material drain and a ureteral stent was placed after cystoscopy. REVIEW OF SYSTEMS Really I cannot get a good one from her. PAST MEDICAL HISTORY 1. Poorly controlled diabetes. 2. Hypertension. 3. Had some low blood pressures postop. 4. Past medical history as above also hypertriglyceridemia. ALLERGIES METFORMIN AND CLONIDINE. FAMILY HISTORY Mother had diabetes, hypertension. Father had CAD and CABG. SOCIAL HISTORY for 29 years. Lives at home with her . Not a smoker. Not a drinker. No drugs. MEDICATIONS Before admission: 1. Glipizide. 2. Lisinopril. 3. Amlodipine. 4. Gemfibrozil. CURRENT MEDICATIONS Her current medications: 1. Pravastatin. 2. Ceftriaxone. 3. Oxycodone which she had one today at 11. 4. Aspirin. 5. Gemfibrozil. PHYSICAL EXAMINATION VITAL SIGNS: On examination afebrile 100.6, 17, 77, 141/64. NECK: No carotid bruits. HEART: Regular rhythm. I did not detect a heart murmur. NEUROLOGIC: Pupils are equal. She seems in a daze. She answers most my questions a yes. She does follow some commands. She can stick out her tongue. She will hold her arms up. She appears to have normal strength in her upper and lower extremities bilaterally. Toes downgoing bilaterally and legs withdraw to Babinski. She seems to feel discomfort throughout. Neck was supple. When I ask her some question she mainly says yes. She cannot or will not tell me the year. LABORATORY DATA White count 12.1, hematocrit 28, platelet count 250. Urinalysis, large amount of leukocyte esterase, some white blood cell clumps. Basic metabolic profile, used to have a normal creatinine. The last one checked that was normal was in 2013. Now creatinine is about 2.88. BUN of 58. GFR 26, hemoglobin A1c 12, calcium is normal. Magnesium normal. LFTs mildly elevated. Initially her sugar was 579 when she came in with a sodium of 127. Albumin 2.5. LDL cholesterol in the past has been high. TSH in the past was normal but that was in 2009. IMAGING The brain MRI shows an acute left small cerebellar infarct. EKG has been sinus rhythm. IMPRESSION Encephalopathy. We will check an EEG in case she could be having subclinical seizures. Stop all narcotics. The cerebellar infarct does not appear to be significant enough that it should her mentation at all. We will check some additional blood work on her. I will be following her with you in the hospital. We will check an echo and some blood cultures make sure she does not have endocarditis. At this point I would recommend having cardiology see her for TERRELL for possible endocarditis with the stroke, it is unclear to me why she would have an infarct at this time. It seems awful coincidental. I note her troponin slightly elevated at 0.24 today. I will put a cardiology consult. Also check an MRA as best as we can without contrast considering her low GFR. ADDENDUM Meningitis could be also considered. We will consider an LP and hold her heparin for now and her aspirin. MD GLO Nava/DHRUV /5:26 PM /10:08 PM
[2017-09-19 23:41] LABS: BICARBONATE 14.3 MEQ/L (21.0-32.0); POTASSIUM 4.2 MEQ/L (3.5-5.1)
[2017-09-20] VITALS (7 sets, daily range): BP systolic 152–180; BP diastolic 65–84; PULSE 71–80; RESP 16–20; TEMP 97.8–99.4; O2SAT 92–99
[2017-09-20] MEDS: SODIUM CHLOR 0.9% 1000 ML INJ 1,000 ML IV SCH ×2 (03:35→12:15)
[2017-09-20] MEDS: ACETAMINOPHEN 325 MG TAB PO SCH ×3 (06:43→23:03)
[2017-09-20] MEDS: GEMFIBROZIL 600 MG TAB PO SCH ×2 (06:43→15:55)
[2017-09-20 07:28] LABS: HEMATOCRIT 27.1 % (35.0-46.0); MEAN CELL VOLUME 91.2 FL (80.0-100.0); MEAN CORPUSCULAR HEMOGLOBIN 30.3 PG (27.0-34.0); MEAN CORPUSCULAR HGB CONC 33.2 % (32.0-36.0); PLATELET COUNT 268 TH/MM3 (150-450); RED BLOOD COUNT 2.97 MIL/MM3 (4.00-5.30); RED CELL DISTRIBUTION WIDTH 14.7 % (11.6-17.2); REVIEW FLAG FINAL; WHITE BLOOD COUNT 10.8 TH/MM3 (4.0-11.0)
[2017-09-20 07:45] LABS: ANION GAP 15 MEQ/L (5-15); AST (GOT) 52 U/L (15-37); BICARBONATE 11.6 MEQ/L (21.0-32.0); CHLORIDE 114 MEQ/L (98-107); GLOMERULAR FILTRATION RATE 31 ML/MIN (>89); POTASSIUM 4.2 MEQ/L (3.5-5.1); SODIUM (NA) 141 MEQ/L (136-145)
[2017-09-20 07:50] LABS: ALKALINE PHOSPHATASE 222 U/L (45-117); ALT (GPT) 49 U/L (10-53); BLOOD UREA NITROGEN 55 MG/DL (7-18); HDL CHOLESTEROL 13.1 MG/DL (40.0-60.0); LDL CHOLESTEROL 151 MG/DL (0-99); TOTAL BILIRUBIN ADULT 0.7 MG/DL (0.2-1.0)
--- NOTE | 2017-09-20 07:54 | HHI.PR ---
Subjective Remarks low grade temp Objective Vital Signs Date Time Temp Pulse Resp B/P (MAP) Pulse Ox O2 Delivery O2 Flow Rate FiO2 09/20/17 04:00 98.1 75 19 153/67 (95) 94 09/20/17 00:00 99.0 80 20 155/70 (98) 93 09/19/17 20:00 98.1 81 21 168/73 (104) 93 09/19/17 20:00 Room Air 09/19/17 20:00 84 09/19/17 16:00 Room Air 09/19/17 16:00 98.2 77 17 141/64 (89) 96 09/19/17 12:00 100.6 83 16 140/73 (95) 95 09/19/17 08:30 Room Air 09/19/17 08:23 92 09/19/17 08:12 84 09/19/17 08:00 98.5 83 16 147/70 (95) 94 I/O 09/19/17 09/19/17 09/19/17 09/20/17 09/20/17 09/20/17 07:00 15:00 23:00 07:00 15:00 23:00 Intake Total 1085 ml 1000 ml 999 ml 1679 ml Output Total 600 ml 850 ml 1200 ml Balance 485 ml 1000 ml 149 ml 479 ml Intake Oral 120 ml 680 ml IV Total 965 ml 1000 ml 999 ml 999 ml Output Urine Total 600 ml 850 ml 1200 ml # Bowel Movements 0 0 Result Diagram: 09/20/17 0623 09/20/17 0623 Objective Remarks much more alert and awake and interactive vff moves all well [facility] [place] year shows me left thumb not aphasic Assessment and Plan Assessment and Plan imp abg 7.28 pH ? from sepsis defer to med team on acidosis probably contributed to ms change i dw cards to do chanell mra echo eeg pend esr >140 probably some endocarditis i do not at this point think meningitis or encephalitis clinically ID on case dep on course about asa or sq heparin at this point much better neuro [place] Sean Joiner MD Sep 20, 2017 07:54
[2017-09-20] MEDS: INSULIN ASPART SUPPLEMENTAL SCALE SQ SCH ×4 (08:00→21:35)
[2017-09-20] MEDS: SODIUM CHLORIDE 0.9% FLUSH 10 ML FLUSH IV FLUSH SCH ×2 (09:00→21:05)
--- NOTE | 2017-09-20 09:48 | MB ---
cc: MAURICE RICHARD DATE OF CONSULTATION 09/20/2017 INDICATION Stroke HISTORY OF PRESENT ILLNESS This 67-year-old female presented initially with right sided abdominal pain, flank pain, associated with nausea, vomiting and dysuria. She was found to have an elevated white count and pyuria. CT of the abdomen did show evidence of air in the right kidney and renal vein. It also showed right hydronephrosis which was thought to be secondary to obstruction and bladder infection. She underwent cystoscopy with right ureter stent placement. 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 She was initially alert and oriented on the , but then on the twenty-first became confused postoperatively. Dr. Joiner of neurology was consulted for further recommendations. MRI of the brain showed a small left cerebellar infarct which was thought to be relatively new within the past few days. In addition, her troponin was elevated 0.24. Cardiology consultation was obtained. There is no prior history of coronary disease. She does have a history of diabetes and hypertension. This morning, she appears to be more alert and oriented. PAST MEDICAL HISTORY 1. Diabetes 2. Hypertension 3. Recurrent urinary tract infections 4. Hyperlipidemia ALLERGIES METFORMIN, CLONIDINE HOME MEDICATIONS 1. Glipizide 2. Lisinopril 3. Norvasc 4. Gemfibrozil FAMILY HISTORY Denies any family history of early coronary disease or sudden cardiac . SOCIAL HISTORY Denies any alcohol, tobacco or drug use. REVIEW OF SYSTEMS A 12-point review of systems was performed and is negative unless otherwise as noted in the history of present illness. PHYSICAL EXAMINATION Temperature 99, pulse 80, blood pressure 145/70 mmHg. GENERAL: Alert and oriented times three in no acute distress. HEENT: Exam shows pupils reactive to light and accommodation. Extraocular movements are intact. NECK: No elevation in venous distension. No thyromegaly or lymphadenopathy. No carotid bruits. LUNGS: Clear to auscultation bilaterally. CARDIOVASCULAR: Regular rate and rhythm. There is a 2/6 crescendo/decrescendo murmur at the right sternal border. ABDOMEN: Exam is nontender and nondistended. Good bowel sounds. No hepatosplenomegaly. EXTREMITIES: Shows no clubbing, cyanosis or edema. Good peripheral pulses. Cranial nerves intact. Motor and sensory grossly intact. LABORATORY DATA WBC 10.8, hemoglobin is 9 down from 10.1 on the , platelet count is 268, INR is 1.1. Sodium 140, potassium 4.2, BUN 57, creatinine 2.23, in comparison to 2.88 back on September 16, troponin is 0.20. Echocardiogram back in 2009 shows normal ejection fraction, moderate tricuspid regurgitation and mild pulmonary hypertension. No electrocardiogram on record. ASSESSMENT 1. Stroke 2. Pyelonephritis 3. Hypertension and hyperlipidemia 4. Elevated troponin PLAN She has a soft aortic murmur, small stroke in the cerebellar region though to be potentially cardioembolic. She is due to have an MRA today. If that is relatively unremarkable, then she will need a transesophageal echocardiogram to rule out cardioembolic event and septic emboli. From an elevated troponin perspective given her increased creatinine, we are not going to proceed with cardiac catheterization. This is likely demand mediated. If she makes a recovery probably consider a Lexiscan. We will follow. MD LOUIE Hill/BARB /7:38 AM /9:35 AM
--- NOTE | 2017-09-20 09:55 | RADRPT ---
EXAM DATE/TIME: 09/20/2017 09:03 [facility] COMPARISON: CT ABDOMEN & PELVIS W/O CONTRAST, September 16, 2017, 17:27. INDICATIONS : Right emphysematous pyelo s/p cystoscopy and right ureteral stent insertion. Evaluate for abscess. ORAL CONTRAST: No oral contrast ingested. RADIATION DOSE: 16.85 CTDIvol (mGy) MEDICAL HISTORY : Cardiovascular disease. Diabetes. SURGICAL HISTORY : section. ENCOUNTER: Initial ACUITY: 1 week PAIN SCALE: 7/10 LOCATION: Right abdomen TECHNIQUE: Volumetric scanning of the abdomen and pelvis was performed. Using automated exposure control and ad justment of the mA and/or kV according to patient size, radiation dose was kept as low as reasonably achievable to obtain optimal diagnostic quality images. DICOM format image data is available electro nically for review and comparison. FINDINGS: Since a previous examination there has been interval placement of a double-J stent on the right. Doub le-J stent is in good position. No hydronephrosis is seen. 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 The majority of the kidney is now comprised of air. A small portion of the po sterior upper pole renal parenchyma remains. No abscess appreciated. Left kidney is unremarkable. The re has been the development of tiny bilateral pleural effusions. Heart is enlarged. CONCLUSION: 1. 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 2. Interval placement of a right-sided double-J stent which is in good position. No hydronephrosis. 3. No abscess. 4. New tiny bilateral pleural effusions. Corey Millan Jr., MD on September 20, 2017 at 9:14 Board Certified Radiologist. This report was verified electronically.
--- NOTE | 2017-09-20 11:45 | RADRPT ---
EXAM DATE/TIME: 09/20/2017 08:19 [facility] COMPARISON: MRI BRAIN W/O CONTRAST, September 19, 2017, 12:49. INDICATIONS : Altered mental status. CVA. MEDICAL HISTORY : Diabetes mellitus type 2. Hypertension. SURGICAL HISTORY : section. Ureteral stent. ENCOUNTER: Subsequent ACUITY: 4-6 days PAIN SCORE: 0/10 LOCATION: head. Please note a normal MRA of the brain does not entirely exclude the possibility of a small aneurysm, nor the possibility of distal intracranial vessel disease. TECHNIQUE: 3D time of flight MRA was performed. Source images, multiplanar STS MIP, and 3D volume MIP reconstru ctions were reviewed. FINDINGS: Current MRA would suggest extensive intracranial vascular disease but appears to be discordant from t findings on the most recent MRI performed one day earlier. Minimal diffusion restriction is identi fied in the left PICA distribution. However, the current MR suggests atherosclerotic irregularity in multiple vascular territories with occlusion of the right MCA as well as the segmental high grade everett nosis/near occlusion in the distal left internal carotid artery. High-grade stenosis with near occlus ion is seen in the left M1 segment as well. In the posterior circulation, patient is left vertebral dominant both vertebrals are patent. There is a weblike stenosis in the mid basilar the basilar is otherwise patent into the posterior cerebral ar teries. Segmental stenosis are identified at the junction of the P1 and P2 segments bilaterally with an additional osteal stenosis of the left P1 segment. CONCLUSION: 1. MRI suggests severe multi-vascular territory disease with short segment occlusion/high-grade steno sis in the distal left internal carotid, the left M1 segment and occlusion of the right MCA territory near its origin. There also appear to be segmental stenoses in the posterior cerebral arteries as we ll. Findings are suggestive of a multi-territory embolic event. 2. However, findings are discordant from the most recent MRI of the brain performed one day earlier w [facility] only showed minimal diffusion restriction in the left PICA distribution. Unless the patient has had a recent cerebrovascular event in the last 24 hours, I would suggest CTA of the intracranial circ ulation for further characterization. Rony Sarabia MD on September 20, 2017 at 11:36 Board Certified Radiologist. This report was verified electronically.
--- NOTE | 2017-09-20 11:49 | RADRPT ---
EXAM DATE/TIME: 09/20/2017 08:19 [place] Corrected on: September 23, 2017; added neck to location [facility] COMPARISON: No previous studies available for comparison. INDICATIONS : Altered mental status. CVA. Stenosis. MEDICAL HISTORY : Diabetes mellitus type 2. Hypertension. SURGICAL HISTORY : section. Ureteral stent. ENCOUNTER: Subsequent ACUITY: 4-6 days PAIN SCORE: 0/10 LOCATION: Percent stenosis is calculated using the diameter of the stenotic region over the diameter of the nor mal distal internal carotid artery. TECHNIQUE: 3D time of flight MRA of the extracranial circulation was performed using a neurovascular coil. Post processing was performed including rotating subvolume maximum intensity projections of each carotid artery, rotating full-volume maximum intensity projections of both carotid arteries, sagittal and cor onal sliding thin-slab reformations of each carotid artery, and left oblique sliding thin slab reform ation through the aortic arch to include the origin of the arch branch vessels. FINDINGS: AORTIC ARCH: Limited visualization of the arch with poor contrast resolution RIGHT CAROTID: Origins of the common carotid artery are not visualized. The carotid bulb has a normal configuration without ulceration or narrowing. The internal carotid artery lumen is smooth without stenosis. The external carotid artery is intact. LEFT CAROTID: Origin of the common carotid artery is not visualized. The carotid bulb has a normal configuration w ithout ulceration or narrowing. The internal carotid artery lumen is smooth without stenosis. The e xternal carotid artery is intact. VERTEBRALS: Limited visualization of the vertebrals. Midportion of both vessels appears to be intact. The proxima l and distal aspect of the muscles are not visualized. CONCLUSION: 1. Technically limited examination with nonvisualization of the arch and distal aspect of the vertebr al/internal. 2. Midportion of the vertebrals and both carotid bifurcations appear to be patent. 3. If there is a clinical concern for significant cervical vascular disease, CTA of the neck vasculat ure may be considered for further characterization. Rony Sarabia MD on September 20, 2017 at 11:43 Board Certified Radiologist. This report was verified electronically.
--- NOTE | 2017-09-20 12:27 | HHI.FPPN ---
Subjective Remarks No acute events reported overnight. Afebrile overnight, last elevated temperature at noon yesterday. White count is trending down. Clinically, the patient appears better than yesterday. She is more alert, and she remembers me from day 1, whereas yesterday I do not think she recognized me. She is answering questions appropriately this morning, and is not as slow to respond. She reports some pain in her right flank but otherwise no pain. She reports no difficulty breathing or chest pain. (Eric Bertrnad MD R3) Objective Vitals Vital Signs Date Time Temp Pulse Resp B/P (MAP) Pulse Ox O2 Delivery O2 Flow Rate FiO2 09/20/17 10:00 93 Room Air 09/20/17 10:00 71 09/20/17 08:00 98.3 72 16 160/70 (100) 94 09/20/17 04:00 98.1 75 19 153/67 (95) 94 09/20/17 00:00 99.0 80 20 155/70 (98) 93 09/19/17 20:00 98.1 81 21 168/73 (104) 93 09/19/17 20:00 Room Air 09/19/17 20:00 84 09/19/17 16:00 Room Air 09/19/17 16:00 98.2 77 17 141/64 (89) 96 I/O 09/19/17 09/19/17 09/19/17 09/20/17 09/20/17 09/20/17 07:00 15:00 23:00 07:00 15:00 23:00 Intake Total 1085 ml 1000 ml 999 ml 1679 ml Output Total 600 ml 850 ml 1200 ml Balance 485 ml 1000 ml 149 ml 479 ml Intake Oral 120 ml 680 ml IV Total 965 ml 1000 ml 999 ml 999 ml Output Urine Total 600 ml 850 ml 1200 ml # Bowel Movements 0 0 (Eric Bertrand MD R3) Result Diagram: 09/20/1762209/20/17622 Imaging Last 72 hours Impressions Abdomen/Pelvis CT 09/20/17599 Signed Impressions: Service Date/Time: Wednesday, September 20, 2017 09:03 - CONCLUSION: 1. 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 2. Interval placement of a right-sided double-J stent which is in good position. No hydronephrosis. 3. No abscess. 4. New tiny bilateral pleural effusions. Corey Millan Jr., MD Carotid Artery Ultrasound 09/19/17 Signed Impressions: Service Date/Time: Tuesday, September 19, 2017 16:45 - CONCLUSION: Moderate disease in the carotid bifurcations bilaterally with subjective measures suggesting stenosis potentially on the order of 50-60%% Maycol Merritt MD Brain MRI 09/19/17 Signed Impressions: Service Date/Time: Tuesday, September 19, 2017 12:49 - CONCLUSION: 1. Small acute or subacute left cerebellar cortical nonhemorrhagic infarction. 2. No abnormalities in the supratentorial brain. Corey Coley MD Objective Remarks GENERAL: Lying flat in bed, no distress, more alert and awake this morning, answering questions appropriately SKIN: No rashes, ecchymoses or lesions. HEAD: NC/AT EYES: No conjunctival injection or drainage. ENT: No nasal discharge, no oral secretions NECK: Supple, no lymphadenopathy. No JVD. CARDIOVASCULAR: RRR, faint systolic murmur, rubs, or gallops, pulses symmetrical. No [place] lesions or [place] nodes, splinter hemorrhages. RESPIRATORY: CTAB. No crackles or wheezes. GASTROINTESTINAL: Abdomen soft, non-distended, non-tender to palpation. GENITOURINARY: Mild CVA tenderness on right. MUSCULOSKELETAL: Extremities without clubbing, cyanosis, or edema. NEUROLOGICAL: Alert more awake and alert today, answering questions appropriately (Eric Bertrand MD R3) A/P Assessment and Plan 67-year-old female with uncontrolled diabetes and hypertension presenting with severe sepsis secondary to grade 2-3 emphysematous pyelonephritis. Now with ureteral stent, may need nephrostomy tube if not significantly improving. Urology and infectious disease are on board. Also with delirium and finding of small acute vs. subacute infarction of left cortex of cerebellum. Currently undergoing workup to rule out a cardioembolic source. Discharge Planning Pending resolution of sepsis, afebrile, resolved leukocytosis, diabetic education, decent control of diabetes, good outpatient follow up (Eric Bertrand MD R3) Attending Attestation A detailed discussion with Dr Bertrand about patients admission and hospital course was held this morning, patient was then interviewed and examined, Agree with Asssessment and Plan, See new Orders.Appreciate consultants input in this complicated case (French Salter MD) Problem List: (1) Emphysematous pyelonephritis ICD Codes: N12 - Tubulo-interstitial nephritis, not specified as acute or chronic Status: Acute Plan: White count trending down, Tmax 100.6 yesterday at noon, otherwise afebrile. Emphysematous pyelonephritis involving the right kidney, repeat CT showing continued severe pyelonephritis but no hydronephrosis. Ureteral stent in place. UA with moderate blood, positive nitrites, large leukocyte esterase, few bacteria. Urology on board, she is status post day 2 after ureteral stent on right. Infectious disease also on board, helping to manage antibiotics. Blood culture positive for E.coli, urine with gram negative rods. - Cefepime changed to Zosyn by ID, now switched to Ceftriaxone on 09/19 in accordance with sensitivities. - May require nephrostomy tube if not significantly improving with stent, will defer to urology. - Tylenol 650 mg every 6 hours scheduled while awake - Hold pain medications due to delirium. - Zofran 4 mg IV every 8 hours as needed for nausea and vomiting - Control diabetes as below (2) Acute ischemic stroke ICD Codes: I63.9 - Cerebral infarction, unspecified Status: Acute Plan: MRI brain ordered 09/19 for altered mental status, some uncoordination with walking. Small acute versus subacute infarction of the left cerebellar cortex about 5 mm. Discussed finding with radiologist, Dr. Coley. He suggests that the infarction is anywhere from hours to several days old. He suggests that it does not correlate with her symptoms and is likely to not have any neurological effects given its location and size. He suggests it likely came from an end artery as opposed to a major vessel. He suggests the possibility of a small septic emboli as the cause. Cardiology consulted, suggesting possibility of cardioembolic or septic emboli. She does have a soft aortic murmur. Head MRA showing severe multi-vascular disease with occlusions and stenoses in multiple territories, suggesting possible embolic event. Carotid doppler suggesting 50-60% stenosis of carotid arteries bilaterally. - On aspirin 81 mg daily - Added a statin, continue gemfibrozil from home - HOB flat, NPO until swallow evaluation - TERRELL to assess for possible source of embolization - Cardiac monitoring, rule out an arrhythmia. - Has bilateral SCD's and prophylactic heparin. - Check lipid profile. - Stop metoprolol, permissive hypertension for now - Consulted neurology, cardiology, infectious disease, appreciate recommendations. (3) Elevated troponin ICD Codes: R74.8 - Abnormal levels of other serum enzymes Plan: Elevated troponin, but remains relatively flat. Cardiology consulted, suggesting likely demand mediated in the context of kidney disease. - May consider Lexiscan depending on recovery. (4) Delirium due to another medical condition ICD Codes: F05 - Delirium due to known physiological condition Status: Acute Plan: Delirium improved today, likely secondary to illness. - Blinds open in day, closed at night - Minimal distractions at night - Limit sedating medications - Avoid restraints as much as possible - Family by bedside as much as possible - Frequent re-orientation. - Treat underlying illness (5) Acute kidney injury ICD Codes: N17.9 - Acute kidney failure, unspecified Status: Acute Plan: Creatinine of 2.88 on admission increased from baseline of about 0.5, continuing to trend down. - Monitor renal function - Holding JEANNIE inhibitor - Avoid nephrotoxic agents, renally dose medications - Continue normal saline at 125 mls/hr - Nephrology on board (6) Diabetes mellitus ICD Codes: E11.9 - Type 2 diabetes mellitus without complications Status: Chronic Plan: Very poor control at home, glucose running 200s to 300s per patient, greater than 500 on admission probably from sepsis. A1C 12.2. Has not been taking her oral medications at home and not on insulin. Poor understanding of diabetes. Only on glipizide at home. - Decreased to low sliding scale insulin due to borderline low glucoses in hospital. - Glucose checks before meals and at bedtime - Diabetic diet if she passes swallow eval - Consulted certified diabetes educator - Consulted case management to assess possible reasons for poor compliance and attendance at office visits - Likely will need insulin at home (7) Hypertension Status: Chronic Plan: Blood pressures low-normal in setting of sepsis - Hold home lisinopril and amlodipine - Hold metoprolol given permissive hypertension with acute CVA (8) Dyslipidemia ICD Codes: E78.5 - Dyslipidemia Status: Chronic Plan: Continue home gemfibrozil Started Pravastatin 40 mg daily (9) FEN/PPX Plan: Fluids: NS at 125 mls/hr Electrolytes: Monitor and replace as needed, monitor renal function Nutrition: Diabetic diet DVT: Heparin 5000 units subcutaneous 3 times a day currently on hold, bilateral SCD's CODE STATUS: Full code (Eric Bertrand MD R3) Eric Bertrand MD R3 Sep 20, 2017 12:27 French Salter MD Sep 20, 2017 15:11
[2017-09-20] MEDS ORDERED: MISCELLANEOUS PHARMACY INFORMATION XX PRN (12:45)
[2017-09-20] MEDS ORDERED: ASP: Other exception documentation: ( ) PRN (12:45)
--- NOTE | 2017-09-20 12:56 | HHI.IDPN ---
Subjective Subjective Remarks Patient is a 67-year-old female, presented to the hospital complaining of three- day history of right-sided abdominal pain, and right flank pain. This was associated with nausea and vomiting as well as frequency and dysuria. She denies any hematuria. In the emergency room she was found to have a white count of 19,000. She has significant pyuria. Creatinine was also elevated. CT of the abdomen and pelvis showed evidence of air in the right kidney, right renal pelvis and also some air extending in the renal vein into the IVC. There is also a small amount of air seen in the hilum of the left kidney. There was some right hydronephrosis and ureter, but no kidney stones seen to cause obstruction. Patient has had prior history of bladder and kidney infection but not this severe. Patient also was found to have very high blood glucose. 2 blood cultures done and are now reported as growing gram-negative rods. Patient underwent surgery, and had cystoscopy and placement of a right ureteral stent. She has been afebrile since admission. Her white count remains elevated at 19,000. Infectious disease consultation has been requested to evaluate the patient with emphysematous pyelonephritis. Notes reviewed Temps low grade Mental status better today Still with R sided abdominal pain Repeat CT A/P - whole R kidney filled with air BC 09/17 now with GNR Repeat UA with pyuria UC repeat pending WBC down to normal Creatinine improving slowly Spoke with daughter Antibiotics I attest that I obtained, updated or reviewed the home and current medications. Rocephin Current Medications Medications (Trade) Dose Ordered Sig/Alisha Route Start Time Stop Time Status Last Admin (NS Flush) 2 ml UNSCH PRN IV FLUSH 09/16/17 19:30 (NS Flush) 2 ml BID IV FLUSH 09/16/17 21:00 09/18/17 09:46 (Norvasc) 10 mg DAILY PO 09/17/17 09:00 Future Hold 09/18/17 09:44 (Lopid) 300 mg BIDAC PO 09/17/17 07:00 09/20/17 06:43 (Prinivil) 40 mg DAILY PO 09/17/17 09:00 Future Hold 09/17/17 09:56 Sodium Chloride 1,000 ml @ 125 mls/hr Q8H IV 09/16/17 20:15 09/20/17 03:35 (Tylenol) 650 mg Q6HR PO 09/17/17 00:00 09/20/17 06:43 (Narcan Inj) 0.4 mg UNSCH X1 PRN IV PUSH 09/16/17 20:15 10/16/17 20:14 (Zofran Inj) 4 mg Q8HR PRN IV PUSH 09/16/17 20:15 (Levemir Inj) 10 units Q12HR SQ 09/16/17 21:00 Future Hold 09/17/17 20:40 (NovoLOG INJ) 8 units TIDAC SQ 09/17/17 08:00 Future Hold 09/17/17 17:34 (D50w (Vial) Inj) 50 ml UNSCH PRN IV PUSH 09/16/17 20:15 (Glucagon Inj) 1 mg UNSCH PRN OTHER 09/16/17 20:15 (NovoLOG SUPPLEMENTAL SCALE) 1 ACHS SLIDING SCALE SQ 09/19/17 12:00 09/19/17 22:17 (Pravachol) 40 mg HS PO 09/19/17 21:00 09/19/17 22:16 (ASP Crit: Other exception documentation) 1 UNSCH X1 PRN XX 09/20/17 12:45 09/21/17 12:44 UNV ([facility] [place] [facility] Information) 1 UNSCH X1 PRN XX 09/20/17 12:45 09/21/17 12:44 UNV Meropenem 1000 mg/ Sodium Chloride 100 ml @ 200 mls/hr Q8H IV 09/20/17 12:45 UNV Lines PIV Past Medical History Diabetes HTN Hypertriglyceridemia CAD Previous episodes of UTI Past Surgical History Caesarian section Allergies: Coded Allergies: metformin (Unverified Allergy, Severe, Numbness, 07/12/17) clonidine (Unverified Allergy, Unknown, 07/12/17) *MDRO Multi-Drug Resistant Organism (Verified Adverse Reaction, Unknown, 11/12/16) MRSA (buttock wound) - 11/2014 Objective . Vital Signs Date Time Temp Pulse Resp B/P (MAP) Pulse Ox O2 Delivery O2 Flow Rate FiO2 09/20/17 10:00 93 Room Air 09/20/17 10:00 71 09/20/17 08:00 98.3 72 16 160/70 (100) 94 09/20/17 04:00 98.1 75 19 153/67 (95) 94 09/20/17 00:00 99.0 80 20 155/70 (98) 93 09/19/17 20:00 98.1 81 21 168/73 (104) 93 09/19/17 20:00 Room Air 09/19/17 20:00 84 09/19/17 16:00 Room Air 09/19/17 16:00 98.2 77 17 141/64 (89) 96 09/20/17 09/20/17 09/21/17 15:00 23:00 07:00 Output Total 850 ml Balance -850 ml Output Urine Total 850 ml # Bowel Movements 1 . Laboratory Tests Test 09/18/17 18:38 09/19/17 06:50 09/19/17 20:12 09/20/17 06:23 White Blood Count 13.7 TH/MM3 12.5 TH/MM3 10.8 TH/MM3 Red Blood Count 3.11 MIL/MM3 3.13 MIL/MM3 2.97 MIL/MM3 Hemoglobin 9.2 GM/DL 9.3 GM/DL 9.0 GM/DL Hematocrit 28.1 % 28.5 % 27.1 % Mean Corpuscular Volume 90.2 FL 90.8 FL 91.2 FL Mean Corpuscular Hemoglobin 29.4 PG 29.6 PG 30.3 PG Mean Corpuscular Hemoglobin Concent 32.6 % 32.6 % 33.2 % Red Cell Distribution Width 14.1 % 14.8 % 14.7 % Platelet Count 239 TH/MM3 250 TH/MM3 268 TH/MM3 Mean Platelet Volume 8.4 FL 8.5 FL 8.1 FL Erythrocyte Sedimentation Rate GREATER THAN 140 mm/hr Laboratory Tests Test 09/18/17 18:38 09/19/17 06:50 09/19/17 12:35 09/19/17 20:12 Blood Urea Nitrogen 55 MG/DL 58 MG/DL 57 MG/DL Creatinine 2.39 MG/DL 2.27 MG/DL 2.23 MG/DL Random Glucose 109 MG/DL 138 MG/DL 145 MG/DL Calcium Level 8.3 MG/DL 8.5 MG/DL 8.3 MG/DL Sodium Level 136 MEQ/L 136 MEQ/L 140 MEQ/L Potassium Level 3.9 MEQ/L 4.2 MEQ/L 4.2 MEQ/L Chloride Level 106 MEQ/L 107 MEQ/L 113 MEQ/L Carbon Dioxide Level 17.3 MEQ/L 11.8 MEQ/L 14.3 MEQ/L Anion Gap 13 MEQ/L 17 MEQ/L 13 MEQ/L Estimat Glomerular Filtration Rate 25 ML/MIN 26 ML/MIN 27 ML/MIN Total Protein 6.3 GM/DL 6.1 GM/DL Albumin 1.6 GM/DL Alkaline Phosphatase 134 U/L Aspartate Amino Transf (AST/SGOT) 39 U/L Alanine Aminotransferase (ALT/SGPT) 34 U/L Total Bilirubin 0.8 MG/DL Troponin I 0.24 NG/ML 0.20 NG/ML Ammonia LESS THAN 10 MCMOL/L Vitamin B12 Level GREATER THAN 2000 PG/ML Free Thyroxine 0.88 NG/DL Thyroid Stimulating Hormone 3rd Gen 0.132 uIU/ML Test 09/20/17 06:23 Blood Urea Nitrogen 55 MG/DL Creatinine 1.98 MG/DL Random Glucose 173 MG/DL Total Protein 6.2 GM/DL Albumin 1.4 GM/DL Calcium Level 8.4 MG/DL Alkaline Phosphatase 222 U/L Aspartate Amino Transf (AST/SGOT) 52 U/L Alanine Aminotransferase (ALT/SGPT) 49 U/L Total Bilirubin 0.7 MG/DL Sodium Level 141 MEQ/L Potassium Level 4.2 MEQ/L Chloride Level 114 MEQ/L Carbon Dioxide Level 11.6 MEQ/L Anion Gap 15 MEQ/L Estimat Glomerular Filtration Rate 31 ML/MIN Triglycerides Level 362 MG/DL Cholesterol Level 236 MG/DL LDL Cholesterol 151 MG/DL HDL Cholesterol 13.1 MG/DL Cholesterol/HDL Ratio 18.01 RATIO Microbiology Date/Time Source Procedure Growth Status 09/20/17 09:59 Blood Peripheral Aerobic Blood Culture Pending Received 09/20/17 09:59 Blood Peripheral Anaerobic Blood Culture Pending Received 09/17/17 15:12 Blood Peripheral Aerobic Blood Culture - Preliminary Gram Negative Jaime Resulted 09/17/17 15:12 Blood Peripheral Anaerobic Blood Culture - Preliminary NO GROWTH IN 3 DAYS Resulted 09/17/17 14:59 Blood Peripheral Aerobic Blood Culture - Preliminary Gram Negative Jaime Resulted 09/17/17 14:59 Blood Peripheral Anaerobic Blood Culture - Preliminary NO GROWTH IN 3 DAYS Resulted 09/19/17 11:55 Urine Catheterized Urine Urine Culture Pending Received Imaging Abdomen/Pelvis CT 09/16/17 0000 Signed Impressions: Service Date/Time: Saturday, September 16, 2017 17:27 - CONCLUSION: 1. 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 No obstructing stone or mass observed. Air is seen throughout the right kidney parenchyma, collecting system, and into the renal vein. A small amount of air is seen involving the upper pole of the left kidney near the hilum likely extension from air within the inferior vena cava. There is mild hydronephrosis and hydroureter on the right. No obstruction on the left. Corey Millan Jr., MD Physical Exam GENERAL: awake, and alert, not in respiratory distress. Not confused SKIN: Warm and dry. No generalized rash, no ecchymoses and no evidence of embolic lesions. HEAD: Atraumatic. Normocephalic. No temporal wasting, or tenderness. EYES: [place] conjunctiva. No petechia or hemorrhage. Pupils equal, round and reactive to light. Extraocular movements full and intact. No scleral icterus. No injection or drainage. EARS, NOSE AND THROAT: Nose without bleeding or purulent nasal discharge. No sinus tenderness. Mucous membranes pink and moist. No oral lesions noted. No exudate. No oral thrush. NECK: Trachea midline. Supple and not tender, no meningeal signs. No nuchal rigidity. CARDIOVASCULAR: Regular rate and rhythm. No murmurs, rubs or gallops heard RESPIRATORY: Clear to auscultation. Breath sounds equal bilaterally. No rales , wheezing or rhonchi ABDOMEN: Soft, nondistended, bowel sounds present and normoactive. Mild tenderness on R side, but no guarding. No rebound. NEUROLOGICAL: Awake and alert. Cranial nerves grossly intact. Motor grossly within normal limits. PSYCHIATRIC: Normal affect, calm and cooperative. LINE: No evidence of infection : [place] in place, urine with sediment Assessment & Plan Remarks IMPRESSION E coli sepsis due to emphysematous pyelonephritis on R - S/P cysto and R ureteral stent placement - CT with progression of air Renal insufficiency Diabetes, poorly controlled Leukocytosis Lethargy, ?could still be from sepsis, ?relative hypoglycemia - ?due to Zosyn - better RECOMMENDATION Change to [place] concerned with progression of air now involving whole R kidney - ?expected post procedure, or progression of infection Follow C/S Change to meropenem Monitor progress Monitor mental status Spoke with daughter Rojas Hoffmannjasmyn Garcia MD Sep 20, 2017 12:56
--- NOTE | 2017-09-20 13:34 | HHI.PR ---
Subjective Patient symptoms today c/o low back pain. Had BM. Denies fevers, nausea Objective Vital Signs Vital Signs Date Time Temp Pulse Resp B/P (MAP) Pulse Ox O2 Delivery O2 Flow Rate FiO2 09/20/17 10:00 93 Room Air 09/20/17 10:00 71 09/20/17 08:00 98.3 72 16 160/70 (100) 94 09/20/17 04:00 98.1 75 19 153/67 (95) 94 09/20/17 00:00 99.0 80 20 155/70 (98) 93 09/19/17 20:00 98.1 81 21 168/73 (104) 93 09/19/17 20:00 Room Air 09/19/17 20:00 84 09/19/17 16:00 Room Air 09/19/17 16:00 98.2 77 17 141/64 (89) 96 Intake & Output 09/20/17 09/20/17 07:00 19:00 Intake Total 1679 ml Output Total 1200 ml 850 ml Balance 479 ml -850 ml Intake Oral 680 ml IV Total 999 ml Output Urine Total 1200 ml 850 ml # Bowel Movements 0 1 Result Diagram: 09/20/1762209/20/17 0623 Imaging Last 24 hours Impressions Neck Magnetic Resonance Angiography 09/20/171735 Signed Impressions: Service Date/Time: Wednesday, September 20, 2017 08:19 - CONCLUSION: 1. Technically limited examination with nonvisualization of the arch and distal aspect of the vertebral/internal. 2. Midportion of the vertebrals and both carotid bifurcations appear to be patent. 3. If there is a clinical concern for significant cervical vascular disease, CTA of the neck vasculature may be considered for further characterization. Rony Sarabia MD Head Magnetic Resonance Angiography 09/20/171735 Signed Impressions: Service Date/Time: Wednesday, September 20, 2017 08:19 - CONCLUSION: 1. MRI suggests severe multi-vascular territory disease with short segment occlusion/high-grade stenosis in the distal left internal carotid, the left M1 segment and occlusion of the right MCA territory near its origin. There also appear to be segmental stenoses in the posterior cerebral arteries as well. Findings are suggestive of a multi-territory embolic event. 2. However, findings are discordant from the most recent MRI of the brain performed one day earlier which only showed minimal diffusion restriction in the left PICA distribution. Unless the patient has had a recent cerebrovascular event in the last 24 hours , I would suggest CTA of the intracranial circulation for further characterization. Rony Sarabia MD Abdomen/Pelvis CT 09/20/17 0600 Signed Impressions: Service Date/Time: Wednesday, September 20, 2017 09:03 - CONCLUSION: 1. 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 2. Interval placement of a right-sided double-J stent which is in good position. No hydronephrosis. 3. No abscess. 4. New tiny bilateral pleural effusions. Corey Millan Jr., MD Objective Remarks NAD. A/O x 3 abd soft, distended. jeffers draining yellow urine Medications and IVs Current Medications Medications (Trade) Dose Ordered Sig/Laisha Route Start Time Stop Time Status Last Admin (NS Flush) 2 ml UNSCH PRN IV FLUSH 09/16/17 19:30 (NS Flush) 2 ml BID IV FLUSH 09/16/17 21:00 09/18/17 09:46 (Norvasc) 10 mg DAILY PO 09/17/17 09:00 Future Hold 09/18/17 09:44 (Lopid) 300 mg BIDAC PO 09/17/17 07:00 09/20/17 06:43 (Prinivil) 40 mg DAILY PO 09/17/17 09:00 Future Hold 09/17/17 09:56 Sodium Chloride 1,000 ml @ 125 mls/hr Q8H IV 09/16/17 20:15 09/20/17 03:35 (Tylenol) 650 mg Q6HR PO 09/17/17 00:00 09/20/17 06:43 (Narcan Inj) 0.4 mg UNSCH X1 PRN IV PUSH 09/16/17 20:15 10/16/17 20:14 (Zofran Inj) 4 mg Q8HR PRN IV PUSH 09/16/17 20:15 (Levemir Inj) 10 units Q12HR SQ 09/16/17 21:00 Future Hold 09/17/17 20:40 (NovoLOG INJ) 8 units TIDAC SQ 09/17/17 08:00 Future Hold 09/17/17 17:34 (D50w (Vial) Inj) 50 ml UNSCH PRN IV PUSH 09/16/17 20:15 (Glucagon Inj) 1 mg UNSCH PRN OTHER 09/16/17 20:15 (NovoLOG SUPPLEMENTAL SCALE) 1 ACHS SLIDING SCALE SQ 09/19/17 12:00 09/19/17 22:17 (Pravachol) 40 mg HS PO 09/19/17 21:00 09/19/17 22:16 (ASP Crit: Other exception documentation) 1 UNSCH X1 PRN XX 09/20/17 12:45 09/21/17 12:44 UNV ([facility] Information) 1 UNSCH X1 PRN XX 09/20/17 12:45 09/21/17 12:44 UNV Meropenem 1000 mg/ Sodium Chloride 100 ml @ 200 mls/hr Q8H IV 09/20/17 12:45 UNV Assessment and Plan Problem List: (1) Emphysematous pyelonephritis ICD Code: N12 - Tubulo-interstitial nephritis, not specified as acute or chronic Status: Acute Assessment and Plan s/p cystoscopy, right ureteral stent insertion -CT Reviewed. Stent in good position. No abscess or hydronephrosis noted. Will take time for gas to clear. No further urological intervention needed at this time. Will monitor closely. would only repeat CT if clinical condition changes -Antibiotics per ID. -WBC normal. -Renal function improving. Shahram Ramirez MD Sep 20, 2017 13:34
--- NOTE | 2017-09-20 15:18 | MG ---
cc: ANDREINA BYERS DALIA M.D. Lab No: [id number] Date: 09/20/2017 : 1950 Age: 67 Sex: F Photic stimulation. EEG is awake, drowsy, asleep. MRI shows small acute and subacute left cerebellar non-hemorrhagic infarcts. Admitted with right flank and lower quadrant pain and then developed some mental status change and confusion. DESCRIPTION OF RECORD The patient is awake during the study. Apparently she does have a 5 Hz background, some eye movement artifact frontal eye [place], but overall symmetrically mildly slow. She tends to fall asleep, roving eye movement. Attenuation is seen. Photic stimulation did show a mild driving response bilaterally. No epileptiform features. IMPRESSION Some mild slowing, may be due to mild encephalopathy versus somnolent state, without any epileptiform features. Clinical correlation. MD KONRAD Bobby/JADIEL /2:44 PM /3:07 PM
[2017-09-20] MEDS: MEROPENEM INJ 1,000 MG in SODIUM CHLORIDE 0.9% INJ 100 ML IV SCH ×2 (15:55→22:58)
--- NOTE | 2017-09-20 18:49 | ECHRPT ---
Indication: CONCLUSIONS Normal left ventricular size. Trace mitral valve regurgitation. mitral annular calcification. No aortic valve regurgitation. No aortic valve stenosis. There is mild tricuspid valve regurgitation. The estimated pulmonary arterial pressure is 42.3 mmHg. BP: / HR: Rhythm: MEASUREMENTS (Male / Female) Normal Values Technical Quality:Good 2D ECHO LV Diastolic Diameter PLAX 4.4 cm 4.2 - 5.9 / 3.9 - 5.3 cm LV Systolic Diameter PLAX 3.2 cm IVS Diastolic Thickness 1.5 cm 0.6 - 1.0 / 0.6 - 0.9 cm LVPW Diastolic Thickness 1.2 cm 0.6 - 1.0 / 0.6 - 0.9 cm LV Relative Wall Thickness 0.6 RV Internal Dim ED PLAX 2.8 cm M-MODE Aortic Root Diameter MM 2.5 cm LA Systolic Diameter MM 3.8 cm LA Ao Ratio MM 1.5 AV Cusp Separation MM 1.7 cm DOPPLER AV Peak Velocity 250.0 cm/s AV Peak Gradient 25.0 mmHg AV Mean Gradient 10.0 mmHg AV Velocity Time Integral 45.9 cm LVOT Peak Velocity 105.0 cm/s LVOT Peak Gradient 4.4 mmHg LVOT Velocity Time Integral 20.9 cm Mitral E Point Velocity 110.0 cm/s Mitral A Point Velocity 98.7 cm/s Mitral E to A Ratio 1.1 LV E' Lateral Velocity 11.2 cm/s Mitral E to LV E' Lateral Ratio 9.8 LV E' Septal Velocity 9.5 cm/s Mitral E to LV E' Septal Ratio 11.6 TR Peak Velocity 284.3 cm/s TR Peak Gradient 32.3 mmHg Right Atrial Pressure 10.0 mmHg Pulmonary Artery Systolic Pressu 42.3 mmHg Right Ventricular Systolic Press 42.3 mmHg FINDINGS LEFT VENTRICLE The left ventricular systolic function is normal with an estimated ejection fraction in the range of 60-65%. Normal left ventricular size. RIGHT VENTRICLE Normal right ventricular size and systolic function. LEFT ATRIUM The left atrial size is normal. RIGHT ATRIUM The right atrial size is normal. ATRIAL SEPTUM Normal atrial septal thickness without atrial level shunting by limited color doppler interrogation. AORTA The aortic root and proximal ascending aorta are normal in size on limited imaging. MITRAL VALVE Structurally normal mitral valve. Trace mitral valve regurgitation. AORTIC VALVE Trileaflet aortic valve. No aortic valve regurgitation. No aortic valve stenosis. TRICUSPID VALVE Structurally normal tricuspid valve. There is mild tricuspid valve regurgitation. The estimated pulmonary arterial pressure is 42.3 mmHg. PULMONARY VALVE No pulmonary valve regurgitation or stenosis. VESSELS The inferior vena cava is normal in size. PERICARDIUM No pericardial effusion. Hussain Connell MD, FACC, [facility] (Electronically Signed) Final Date:20 September 2017 18:47
--- NOTE | 2017-09-20 19:37 | HHI.NPPN ---
Subjective History of Present Illness 67-year-old female with past medical history of hypertension, diabetes mellitus, hyperlipidemia who came to the hospital with complaint of right-sided abdominal pain and dysuria. I was called to see the patient because of elevated BUN and creatinine. The patient had a creatinine of 2.8 on admission. Previously she had creatinine of 0.4, and this was in 2013. Additional Remarks Patient is alert, no SOB, feeling better and now oriented times 2. Objective Data Data 09/20/17 09/21/17 19:00 07:00 Intake Total 1080 ml Output Total 1750 ml Balance -670 ml Intake Oral 1080 ml Output Urine Total 1750 ml # Bowel Movements 3 Vital Signs Date Time Temp Pulse Resp B/P (MAP) Pulse Ox O2 Delivery O2 Flow Rate FiO2 09/20/17 16:00 99.4 74 18 166/79 (108) 99 09/20/17 12:00 98.2 76 20 180/84 (116) 94 09/20/17 10:00 93 Room Air 09/20/17 10:00 71 09/20/17 08:00 98.3 72 16 160/70 (100) 94 09/20/17 04:00 98.1 75 19 153/67 (95) 94 09/20/17 00:00 99.0 80 20 155/70 (98) 93 09/19/17 20:00 98.1 81 21 168/73 (104) 93 09/19/17 20:00 Room Air 09/19/17 20:00 84 -: 09/20/17 0623 09/20/17 0623 Microbiology 09/20/17 Aerobic Blood Culture, Received Pending 09/20/17 Anaerobic Blood Culture, Received Pending 09/20/17 Aerobic Blood Culture, Received Pending 09/20/17 Anaerobic Blood Culture, Received Pending Physical Exam General Appearance: No Acute Distress, Comfortable Eyes Eye Exam: Pupils Equal Throat Throat Exam: Oral Mucosa Mimbres & Moist Neck Neck Exam: Neck Supple Pulmonary Resp Exam: Breath Sounds Equal, Rhonchi, Decreased Bases, Diminished Breath Sounds Cardiology CV Exam: Regular, Normal Sinus Rhythm Gastrointestinal/Abdomen GI Exam: Soft, Non-Tender, Bowel Sounds Present Extremeties Extremities Exam: Trace Edema Neurologic Neuro Exam: Alert, Awake Assessment/Plan Assessment Summary: DELLA/Acute Renal Failure Problem List: (1) Essential hypertension ICD Codes: I10 - Essential hypertension Status: Acute (2) Leukocytosis ICD Codes: D72.829 - Leukocytosis Status: Acute (3) Pyelonephritis ICD Codes: N12 - Pyelonephritis Status: Acute (4) Sepsis ICD Codes: A41.9 - Sepsis, unspecified organism Status: Acute (5) Acute kidney injury ICD Codes: N17.9 - Acute kidney failure, unspecified Status: Acute Plan Patient has Acute kidney injury. Differential will be ATN from sepsis/UTI/Pyelonephritis. Also an element of obstructive uropathy. Post cystoscopy and stent placement. Non oliguric. Creatinine is slightly better. Repeat culture still positive. Has E. Coli sepsis. Continue ceftriaxone, ID is following. Cardiology consult noted. MRA seen, Creatinine is better. Has metabolic acidosis, Lactic acid is normal. Add NaHco3 in the IVF. Problem Qualifiers (1) Leukocytosis: Qualified Codes: D72.825 - Bandemia (2) Sepsis: Qualified Codes: A41.9 - Sepsis, unspecified organism Pita Huitron MD Sep 20, 2017 19:37
[2017-09-20] MEDS: PRAVASTATIN SOD 40 MG TAB PO SCH (21:05)
[2017-09-20] MEDS: SODIUM BICARBONATE 8.4% INJ 75 MEQ in SODIUM CHLOR 0.45% 1000 ML INJ 1,000 ML IV SCH (22:58)
[2017-09-21] VITALS (10 sets, daily range): BP systolic 117–169; BP diastolic 60–80; PULSE 70–79; RESP 16–21; TEMP 97.3–98.8; O2SAT 94–98
[2017-09-21] MEDS: ACETAMINOPHEN 325 MG TAB PO SCH ×2 (00:07→05:10)
[2017-09-21] MEDS ORDERED: METOPROLOL TARTRATE 25 MG TAB PO PRN (03:15)
[2017-09-21] MEDS ORDERED: POVIDONE IODINE 5% (ANTISEPSIS KIT) 4 APPLICATIONS EACH NARE PRN (03:15)
[2017-09-21] MEDS ORDERED: SODIUM CHLORID 0.9% 500 ML IV PRN (03:15)
[2017-09-21] MEDS ORDERED: CHLORHEXIDINE GLUCONATE 2 % 1 PACK (2 CLOTHS) TOPICAL PRN (03:15)
[2017-09-21] MEDS ORDERED: LACTATED RINGER'S 1000 ML IV PRN (03:15)
[2017-09-21] MEDS: MEROPENEM INJ 1,000 MG in SODIUM CHLORIDE 0.9% INJ 100 ML IV SCH ×3 (06:43→23:11)
[2017-09-21] MEDS: GEMFIBROZIL 600 MG TAB PO SCH ×2 (06:43→17:35)
--- NOTE | 2017-09-21 07:22 | HHI.PR ---
Subjective Remarks low grade temp Objective Vital Signs Date Time Temp Pulse Resp B/P (MAP) Pulse Ox O2 Delivery O2 Flow Rate FiO2 09/21/17 00:00 98.1 79 21 158/60 (92) 95 09/20/17 22:30 Room Air 09/20/17 20:00 97.8 73 18 152/65 (94) 93 09/20/17 16:00 99.4 74 18 166/79 (108) 99 09/20/17 12:00 98.2 76 20 180/84 (116) 94 09/20/17 10:00 93 Room Air 09/20/17 10:00 71 09/20/17 08:00 98.3 72 16 160/70 (100) 94 I/O 09/20/17 09/20/17 09/20/17 09/21/17 09/21/17 09/21/17 07:00 15:00 23:00 07:00 15:00 23:00 Intake Total 1679 ml 1080 ml 100 ml Output Total 1200 ml 850 ml 900 ml Balance 479 ml -850 ml 180 ml 100 ml Intake Oral 680 ml 1080 ml IV Total 999 ml 100 ml Output Urine Total 1200 ml 850 ml 900 ml # Bowel Movements 0 1 2 Result Diagram: 09/20/17 0623 09/20/17 0623 Objective Remarks much more alert and awake and interactive ox3 vff moves all well [facility] knows year month not aphasic Assessment and Plan Assessment and Plan imp abg 7.28 pH ? from sepsis defer to med team on acidosis probably contributed to ms change i dw cards to do chanell mra echo eeg pend esr >140 probably some endocarditis i do not at this point think meningitis or encephalitis clinically ID on case dep on course about asa or sq heparin at this point much better neuro tejada ------ 09/21/17 back to nl neuro tejada mra neck echo and eeg nl mra cow poor flow r mca and some dec branch flow could have been mult small emboli will recheck mri creat too high for cta for chanell i restarted asa and get oob keep well hydrated and bp up Sean Joiner MD Sep 21, 2017 07:22
[2017-09-21] MEDS: INSULIN ASPART SUPPLEMENTAL SCALE SQ SCH ×4 (08:00→21:03)
--- NOTE | 2017-09-21 08:37 | PD.CARD.PN ---
Subjective Subjective Remarks alert and oriented. resting comfortably. denies chest pain or sob. (Tigist Brewster) Objective Medications Current Medications Medications (Trade) Dose Ordered Sig/Alisha Route Start Time Stop Time Status Last Admin (NS Flush) 2 ml UNSCH PRN IV FLUSH 09/16/17 19:30 (NS Flush) 2 ml BID IV FLUSH 09/16/17 21:00 09/20/17 21:05 (Norvasc) 10 mg DAILY PO 09/17/17 09:00 Future Hold 09/18/17 09:44 (Lopid) 300 mg BIDAC PO 09/17/17 07:00 09/21/17 06:43 (Prinivil) 40 mg DAILY PO 09/17/17 09:00 Future Hold 09/17/17 09:56 (Tylenol) 650 mg Q6HR PO 09/17/17 00:00 09/21/17 05:10 (Narcan Inj) 0.4 mg UNSCH X1 PRN IV PUSH 09/16/17 20:15 10/16/17 20:14 (Zofran Inj) 4 mg Q8HR PRN IV PUSH 09/16/17 20:15 (Levemir Inj) 10 units Q12HR SQ 09/16/17 21:00 Future Hold 09/17/17 20:40 (NovoLOG INJ) 8 units TIDAC SQ 09/17/17 08:00 Future Hold 09/17/17 17:34 (D50w (Vial) Inj) 50 ml UNSCH PRN IV PUSH 09/16/17 20:15 (Glucagon Inj) 1 mg UNSCH PRN OTHER 09/16/17 20:15 (NovoLOG SUPPLEMENTAL SCALE) 1 ACHS SLIDING SCALE SQ 09/19/17 12:00 09/20/17 21:35 (Pravachol) 40 mg HS PO 09/19/17 21:00 09/20/17 21:05 (ASP Crit: Other exception documentation) 1 UNSCH X1 PRN .XX 09/20/17 12:45 09/21/17 12:44 ([facility] 1 UNSCH X1 PRN XX 09/20/17 12:45 09/21/17 12:44 Meropenem 1000 mg/ Sodium Chloride 100 ml @ 200 mls/hr Q8H IV 09/20/17 15:00 09/21/17 06:43 Sodium Bicarbonate 75 meq/Sodium Chloride 1,075 ml @ 100 mls/hr [id number] IV 09/20/17 21:00 09/20/17 22:58 Lactated Ringer's 1,000 ml @ 30 mls/hr Q24H PRN IV 09/21/17 03:15 09/24/17 03:14 Sodium Chloride 500 ml @ 30 mls/hr [id number] PRN IV 09/21/17 03:15 09/24/17 03:14 (Lopressor) 25 mg WAITER WAITRESS PRN PO 09/21/17 03:15 09/24/17 03:14 (Betadine 5% Antisepsis Kit) 1 applic WAITER WAITRESS PRN EACH NARE 09/21/17 03:15 09/24/17 03:14 (Chlorhexidine 2% Cloth) 3 pack WAITER WAITRESS PRN TOPICAL 09/21/17 03:15 09/24/17 03:14 (Aspirin Chew) 81 mg DAILY PO 09/21/17 09:00 Vital Signs / I&O Vital Signs Date Time Temp Pulse Resp B/P (MAP) Pulse Ox O2 Delivery O2 Flow Rate FiO2 09/21/17 04:00 98.2 70 21 148/65 (92) 96 09/21/17 00:00 98.1 79 21 158/60 (92) 95 09/20/17 22:30 Room Air 09/20/17 20:00 97.8 73 18 152/65 (94) 93 09/20/17 16:00 99.4 74 18 166/79 (108) 99 09/20/17 12:00 98.2 76 20 180/84 (116) 94 09/20/17 10:00 93 Room Air 09/20/17 10:00 71 I/O 09/20/17 09/20/17 09/20/17 09/21/17 09/21/17 09/21/17 07:00 15:00 23:00 07:00 15:00 23:00 Intake Total 1679 ml 1080 ml 100 ml Output Total 1200 ml 850 ml 900 ml 2100 ml Balance 479 ml -850 ml 180 ml -2000 ml Intake Oral 680 ml 1080 ml 0 ml IV Total 999 ml 100 ml Output Urine Total 1200 ml 850 ml 900 ml 2100 ml # Bowel Movements 0 1 2 0 Physical Exam HEAD: Atraumatic. Normocephalic. EYES: Pupils equal and round. . ENT: No nasal bleeding or discharge. Mucous membranes pink and moist. NECK: Trachea midline. No JVD. CARDIOVASCULAR: Regular rate and rhythm. systolic murmur I/ RESPIRATORY: No accessory muscle use. Clear to auscultation. Breath sounds equal bilaterally. GASTROINTESTINAL: Abdomen soft,nondistended. MUSCULOSKELETAL: Extremities without clubbing, cyanosis, or edema. No obvious deformities. NEUROLOGICAL: Awake and alert. No obvious cranial nerve deficits. Normal speech. PSYCHIATRIC: Appropriate mood and affect; insight and judgment normal. Laboratory Laboratory Tests Test 09/20/17 12:45 Lactic Acid Level 0.8 mmol/L Imaging Last 24 hours Impressions Neck Magnetic Resonance Angiography [id number]/20/[id number] Signed Impressions: Service Date/Time: Wednesday, September 20, 2017 08:19 - CONCLUSION: 1. Technically limited examination with nonvisualization of the arch and distal aspect of the vertebral/internal. 2. Midportion of the vertebrals and both carotid bifurcations appear to be patent. 3. If there is a clinical concern for significant cervical vascular disease, CTA of the neck vasculature may be considered for further characterization. Rony Sarabia MD Head Magnetic Resonance Angiography [id number]/20/[id number] Signed Impressions: Service Date/Time: Wednesday, September 20, 2017 08:19 - CONCLUSION: 1. MRI suggests severe multi-vascular territory disease with short segment occlusion/high-grade stenosis in the distal left internal carotid, the left M1 segment and occlusion of the right MCA territory near its origin. There also appear to be segmental stenoses in the posterior cerebral arteries as well. Findings are suggestive of a multi-territory embolic event. 2. However, findings are discordant from the most recent MRI of the brain performed one day earlier which only showed minimal diffusion restriction in the left PICA distribution. Unless the patient has had a recent cerebrovascular event in the last 24 hours , I would suggest CTA of the intracranial circulation for further characterization. 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 CVA- plan for TERRELL today to rule out cardioembolic source carotid stenosis- distal left carotid troponin elevation- likely demand mediated. consider lexiscan. (Tigist Brewster) Assessment and Plan CVA - multivascular distribution. likely cardioembolic? await TERRELL. (Amrit Swan MD) Tigist Brewster Sep 21, 2017 08:37 Amrit Swan MD Sep 21, 2017 08:42
[2017-09-21] MEDS: SODIUM CHLORIDE 0.9% FLUSH 10 ML FLUSH IV FLUSH SCH ×2 (08:41→21:00)
[2017-09-21] MEDS ORDERED: ASPIRIN 81 MG CHEW TAB PO SCH (09:00)
--- NOTE | 2017-09-21 09:38 | HHI.IDPN ---
Subjective Subjective Remarks Patient is a 67-year-old female, presented to the hospital complaining of three- day history of right-sided abdominal pain, and right flank pain. This was associated with nausea and vomiting as well as frequency and dysuria. She denies any hematuria. In the emergency room she was found to have a white count of 19,000. She has significant pyuria. Creatinine was also elevated. CT of the abdomen and pelvis showed evidence of air in the right kidney, right renal pelvis and also some air extending in the renal vein into the IVC. There is also a small amount of air seen in the hilum of the left kidney. There was some right hydronephrosis and ureter, but no kidney stones seen to cause obstruction. Patient has had prior history of bladder and kidney infection but not this severe. Patient also was found to have very high blood glucose. 2 blood cultures done and are now reported as growing gram-negative rods. Patient underwent surgery, and had cystoscopy and placement of a right ureteral stent. She has been afebrile since admission. Her white count remains elevated at 19,000. Infectious disease consultation has been requested to evaluate the patient with emphysematous pyelonephritis. Notes reviewed [facility] low grade Urology notes reviewed For TERRELL today Mental status baseline Still with R sided abdominal pain Repeat CT A/P - whole R kidney filled with air BC 09/17 now with GNR Repeat UA with pyuria UC repeat lower colony count E coli WBC down to normal Creatinine improving slowly Antibiotics I attest that I obtained, updated or reviewed the home and current medications. Meropenem Current Medications Medications (Trade) Dose Ordered Sig/Alisha Route Start Time Stop Time Status Last Admin (NS Flush) 2 ml UNSCH PRN IV FLUSH 09/16/17 19:30 (NS Flush) 2 ml BID IV FLUSH 09/16/17 21:00 09/20/17 21:05 (Norvasc) 10 mg DAILY PO 09/17/17 09:00 Future Hold 09/18/17 09:44 (Lopid) 300 mg BIDAC PO 09/17/17 07:00 09/21/17 06:43 (Prinivil) 40 mg DAILY PO 09/17/17 09:00 Future Hold 09/17/17 09:56 (Tylenol) 650 mg Q6HR PO 09/17/17 00:00 09/21/17 05:10 (Narcan Inj) 0.4 mg UNSCH X1 PRN IV PUSH 09/16/17 20:15 10/16/17 20:14 (Zofran Inj) 4 mg Q8HR PRN IV PUSH 09/16/17 20:15 (Levemir Inj) 10 units Q12HR SQ 09/16/17 21:00 Future Hold 09/17/17 20:40 (NovoLOG INJ) 8 units TIDAC SQ 09/17/17 08:00 Future Hold 09/17/17 17:34 (D50w (Vial) Inj) 50 ml UNSCH PRN IV PUSH 09/16/17 20:15 (Glucagon Inj) 1 mg UNSCH PRN OTHER 09/16/17 20:15 (NovoLOG SUPPLEMENTAL SCALE) 1 ACHS SLIDING SCALE SQ 09/19/17 12:00 09/20/17 21:35 (Pravachol) 40 mg HS PO 09/19/17 21:00 09/20/17 21:05 (ASP Crit: Other exception documentation) 1 UNSCH X1 PRN .XX 09/20/17 12:45 09/21/17 12:44 ([facility] Information) 1 UNSCH X1 PRN XX 09/20/17 12:45 09/21/17 12:44 Meropenem 1000 mg/ Sodium Chloride 100 ml @ 200 mls/hr Q8H IV 09/20/17 15:00 09/21/17 06:43 Sodium Bicarbonate 75 meq/Sodium Chloride 1,075 ml @ 100 mls/hr [id number] IV 09/20/17 21:00 09/20/17 22:58 Lactated Ringer's 1,000 ml @ 30 mls/hr Q24H PRN IV 09/21/17 03:15 09/24/17 03:14 Sodium Chloride 500 ml @ 30 mls/hr [id number] PRN IV 09/21/17 03:15 09/24/17 03:14 (Lopressor) 25 mg LABORER AMM[employer]ITION ASSEMBLY PRN PO 09/21/17 03:15 09/24/17 03:14 (Betadine 5% Antisepsis Kit) 1 applic [employer] PRN EACH NARE 09/21/17 03:15 09/24/17 03:14 (Chlorhexidine 2% Cloth) 3 pack [employer] PRN TOPICAL 09/21/17 03:15 09/24/17 03:14 (Aspirin Chew) 81 mg DAILY PO 09/21/17 09:00 09/21/17 08:39 Lines PIV Past Medical History Diabetes HTN Hypertriglyceridemia CAD Previous episodes of UTI Past Surgical History Caesarian section Allergies: Coded Allergies: metformin (Unverified Allergy, Severe, Numbness, 07/12/17) clonidine (Unverified Allergy, Unknown, 07/12/17) *MDRO Multi-Drug Resistant Organism (Verified Adverse Reaction, Unknown, 11/12/16) MRSA (buttock wound) - 11/2014 Objective . Vital Signs Date Time Temp Pulse Resp B/P (MAP) Pulse Ox O2 Delivery O2 Flow Rate FiO2 09/21/17 08:15 Room Air 09/21/17 08:04 70 09/21/17 08:00 98.8 70 18 166/72 (103) 94 09/21/17 04:00 98.2 70 21 148/65 (92) 96 09/21/17 00:00 98.1 79 21 158/60 (92) 95 09/20/17 22:30 Room Air 09/20/17 20:00 97.8 73 18 152/65 (94) 93 09/20/17 16:00 99.4 74 18 166/79 (108) 99 09/20/17 12:00 98.2 76 20 180/84 (116) 94 09/20/17 10:00 93 Room Air 09/20/17 10:00 71 . Laboratory Tests Test 09/19/17 20:12 09/20/17 06:23 Erythrocyte Sedimentation Rate GREATER THAN 140 mm/hr White Blood Count 10.8 TH/MM3 Red Blood Count 2.97 MIL/MM3 Hemoglobin 9.0 GM/DL Hematocrit 27.1 % Mean Corpuscular Volume 91.2 FL Mean Corpuscular Hemoglobin 30.3 PG Mean Corpuscular Hemoglobin Concent 33.2 % Red Cell Distribution Width 14.7 % Platelet Count 268 TH/MM3 Mean Platelet Volume 8.1 FL Laboratory Tests Test 09/19/17 12:35 09/19/17 20:12 09/20/17 06:23 09/20/17 12:45 Troponin I 0.24 NG/ML 0.20 NG/ML Blood Urea Nitrogen 57 MG/DL 55 MG/DL Creatinine 2.23 MG/DL 1.98 MG/DL Random Glucose 145 MG/DL 173 MG/DL Calcium Level 8.3 MG/DL 8.4 MG/DL Sodium Level 140 MEQ/L 141 MEQ/L Potassium Level 4.2 MEQ/L 4.2 MEQ/L Chloride Level 113 MEQ/L 114 MEQ/L Carbon Dioxide Level 14.3 MEQ/L 11.6 MEQ/L Anion Gap 13 MEQ/L 15 MEQ/L Estimat Glomerular Filtration Rate 27 ML/MIN 31 ML/MIN Ammonia LESS THAN 10 MCMOL/L Total Protein 6.1 GM/DL 6.2 GM/DL Vitamin B12 Level GREATER THAN 2000 PG/ML Free Thyroxine 0.88 NG/DL Thyroid Stimulating Hormone 3rd Gen 0.132 uIU/ML Albumin 1.4 GM/DL Alkaline Phosphatase 222 U/L Aspartate Amino Transf (AST/SGOT) 52 U/L Alanine Aminotransferase (ALT/SGPT) 49 U/L Total Bilirubin 0.7 MG/DL Triglycerides Level 362 MG/DL Cholesterol Level 236 MG/DL LDL Cholesterol 151 MG/DL HDL Cholesterol 13.1 MG/DL Cholesterol/HDL Ratio 18.01 RATIO Lactic Acid Level 0.8 mmol/L Microbiology Date/Time Source Procedure Growth Status 09/20/17 12:45 Blood Peripheral Aerobic Blood Culture Pending Received 09/20/17 12:45 Blood Peripheral Anaerobic Blood Culture Pending Received 09/20/17 09:59 Blood Peripheral Aerobic Blood Culture Pending Received 09/20/17 09:59 Blood Peripheral Anaerobic Blood Culture Pending Received 09/19/17 11:55 Urine Catheterized Urine Urine Culture - Preliminary Escherichia Coli Resulted Imaging Abdomen/Pelvis CT 09/16/17 0000 Signed Impressions: Service Date/Time: Saturday, September 16, 2017 17:27 - CONCLUSION: 1. 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 No obstructing stone or mass observed. Air is seen throughout the right kidney parenchyma, collecting system, and into the renal vein. A small amount of air is seen involving the upper pole of the left kidney near the hilum likely extension from air within the inferior vena cava. There is mild hydronephrosis and hydroureter on the right. No obstruction on the left. Corey Millan Jr., MD Physical Exam GENERAL: awake, and alert, not in respiratory distress. SKIN: Warm and dry. No generalized rash, no ecchymoses and no evidence of embolic lesions. HEAD: Atraumatic. Normocephalic. No temporal wasting, or tenderness. EYES: [place] conjunctiva. No petechia or hemorrhage. Pupils equal, round and reactive to light. Extraocular movements full and intact. No scleral icterus. No injection or drainage. EARS, NOSE AND THROAT: Nose without bleeding or purulent nasal discharge. No sinus tenderness. Mucous membranes pink and moist. No oral lesions noted. No exudate. No oral thrush. NECK: Trachea midline. Supple and not tender, no meningeal signs. No nuchal rigidity. CARDIOVASCULAR: Regular rate and rhythm. No murmurs, rubs or gallops heard RESPIRATORY: Clear to auscultation. Breath sounds equal bilaterally. No rales , wheezing or rhonchi ABDOMEN: Soft, nondistended, bowel sounds present and normoactive. Tenderness on R side, but no guarding. No rebound. NEUROLOGICAL: Awake and alert. Cranial nerves grossly intact. Motor grossly within normal limits. PSYCHIATRIC: Normal affect, calm and cooperative. LINE: No evidence of infection : [place] in place, urine still with sediment Assessment & Plan Remarks IMPRESSION E coli sepsis due to emphysematous pyelonephritis on R - S/P cysto and R ureteral stent placement - CT with progression of air (per urology, it will take a while for air to resolve) - repeat UC with lower colony count E coli, WBC down to normal Renal insufficiency Diabetes, poorly controlled Leukocytosis Lethargy, ?could still be from sepsis, ?relative hypoglycemia - ?due to Zosyn - better RECOMMENDATION Continue Merem for now Monitor progress Follow C/S Monitor mental status For TERRELL today D/W Ann Maria MD Sep 21, 2017 09:38
--- NOTE | 2017-09-21 10:28 | HHI.FPPN ---
Subjective Remarks Patient appearing much better today. She is awake and alert, smiling and waving as we walk in the room. She has mild right flank pain that is better than at admission. She has no chest pain or shortness of breath. She has no abdominal pain, nausea, vomiting, diarrhea. She reports a good appetite, currently NPO for TERRELL today. She is much more lucid and seeming to understand her medical condition somewhat better than before. Spoke with daughter who also suggests she is doing better. She walked down the hallway yesterday. Per daughter, she had a cautious gait. Per patient, she felt a little off balance but overall felt ok. White count trended down to 10.8. Last fever on 09/19. Kidney function improving. Urine culture and blood cultures growing e. coli. (Eirc Bertrand MD R3) Objective Vitals Vital Signs Date Time Temp Pulse Resp B/P (MAP) Pulse Ox O2 Delivery O2 Flow Rate FiO2 09/21/17 08:15 Room Air 09/21/17 08:04 70 09/21/17 08:00 98.8 70 18 166/72 (103) 94 09/21/17 04:00 98.2 70 21 148/65 (92) 96 09/21/17 00:00 98.1 79 21 158/60 (92) 95 09/20/17 22:30 Room Air 09/20/17 20:00 97.8 73 18 152/65 (94) 93 09/20/17 16:00 99.4 74 18 166/79 (108) 99 09/20/17 12:00 98.2 76 20 180/84 (116) 94 I/O 09/20/17 09/20/17 09/20/17 09/21/17 09/21/17 09/21/17 07:00 15:00 23:00 07:00 15:00 23:00 Intake Total 1679 ml 1080 ml 100 ml Output Total 1200 ml 850 ml 900 ml 2100 ml Balance 479 ml -850 ml 180 ml -2000 ml Intake Oral 680 ml 1080 ml 0 ml IV Total 999 ml 100 ml Output Urine Total 1200 ml 850 ml 900 ml 2100 ml # Bowel Movements 0 1 2 0 (Eric Bertrand MD R3) Result Diagram: 09/20/17 0623 09/20/17 0623 Imaging Last 72 hours Impressions Neck Magnetic Resonance Angiography 09/20/171735 Signed Impressions: Service Date/Time: Wednesday, September 20, 2017 08:19 - CONCLUSION: 1. Technically limited examination with nonvisualization of the arch and distal aspect of the vertebral/internal. 2. Midportion of the vertebrals and both carotid bifurcations appear to be patent. 3. If there is a clinical concern for significant cervical vascular disease, CTA of the neck vasculature may be considered for further characterization. Rony Sarabia MD Head Magnetic Resonance Angiography 09/20/171735 Signed Impressions: Service Date/Time: Wednesday, September 20, 2017 08:19 - CONCLUSION: 1. MRI suggests severe multi-vascular territory disease with short segment occlusion/high-grade stenosis in the distal left internal carotid, the left M1 segment and occlusion of the right MCA territory near its origin. There also appear to be segmental stenoses in the posterior cerebral arteries as well. Findings are suggestive of a multi-territory embolic event. 2. However, findings are discordant from the most recent MRI of the brain performed one day earlier which only showed minimal diffusion restriction in the left PICA distribution. Unless the patient has had a recent cerebrovascular event in the last 24 hours , I would suggest CTA of the intracranial circulation for further characterization. Rony Sarabia MD Abdomen/Pelvis CT 09/20/17 0600 Signed Impressions: Service Date/Time: Wednesday, September 20, 2017 09:03 - CONCLUSION: 1. 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 2. Interval placement of a right-sided double-J stent which is in good position. No hydronephrosis. 3. No abscess. 4. New tiny bilateral pleural effusions. Corey Millan Jr., MD Carotid Artery Ultrasound 09/19/17 0000 Signed Impressions: Service Date/Time: Tuesday, September 19, 2017 16:45 - CONCLUSION: Moderate disease in the carotid bifurcations bilaterally with subjective measures suggesting stenosis potentially on the order of 50-60%% Maycol Merritt MD Brain MRI 09/19/17 0000 Signed Impressions: Service Date/Time: Tuesday, September 19, 2017 12:49 - CONCLUSION: 1. Small acute or subacute left cerebellar cortical nonhemorrhagic infarction. 2. No abnormalities in the supratentorial brain. Corey Coley MD Objective Remarks GENERAL: Sitting up in bed, smiling, waving, much more alert and awake. SKIN: No rashes, ecchymoses or lesions. HEAD: NC/AT EYES: No conjunctival injection or drainage. ENT: No nasal discharge, no oral secretions NECK: Supple, no lymphadenopathy. No JVD. CARDIOVASCULAR: RRR, faint systolic murmur, no rubs or gallops, pulses symmetrical. No Janeway lesions or Oslers nodes, no splinter hemorrhages. RESPIRATORY: CTAB. No crackles or wheezes. GASTROINTESTINAL: Abdomen soft, non-distended, non-tender to palpation. GENITOURINARY: Mild CVA tenderness on right, improved MUSCULOSKELETAL: Extremities without clubbing, cyanosis, or edema. NEUROLOGICAL: Awake and alert. Strength and sensation normal peripherally. Mild difficulty with [id number] on left and heel to roger on left. 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 Now with ureteral stent, improving with conservative management. Urology and infectious disease are on board. Also with delirium and finding of small acute vs. subacute infarction of left cortex of cerebellum. Currently undergoing workup to rule out a cardioembolic source. Cardiology and neurology on board. Discharge Planning Pending resolution of sepsis, afebrile, resolved leukocytosis, diabetic education, decent control of diabetes, good outpatient follow up (Eric Bertrand MD R3) Attending Attestation A detailed discussion regarding patients diagnosis was held with Dr Bertrand,Seen and examined EMR reviewed, Agree with contents of note and dianosis, See Orders. Case discussed with daughter. (French Salter MD) Problem List: (1) Emphysematous pyelonephritis ICD Codes: N12 - Tubulo-interstitial nephritis, not specified as acute or chronic Status: Acute Plan: White count back to normal, afebrile overnight. Emphysematous pyelonephritis involving the right kidney, repeat CT showing continued severe pyelonephritis but no hydronephrosis. Ureteral stent in place. UA with moderate blood, positive nitrites, large leukocyte esterase, few bacteria. Urology on board, she is status post ureteral stent on right. Infectious disease also on board, helping to manage antibiotics. Blood culture positive for E.coli, urine with e.coli, colony counts improving. - Cefepime at admission changed to Zosyn, switched to Ceftriaxone on 09/19. Changed to meropenem on 09/20. - Per urology, continue with conservative management. Nephrostomy tube not required at this time. - Tylenol 650 mg every 6 hours PRN for flank pain. - Hold opiate medications due to delirium. - Zofran 4 mg IV every 8 hours as needed for nausea and vomiting - Control diabetes as below - Follow blood and urine cultures. (2) Acute ischemic stroke ICD Codes: I63.9 - Cerebral infarction, unspecified Status: Acute Plan: MRI brain ordered 09/19 for altered mental status, some uncoordination with walking. Small acute versus subacute infarction of the left cerebellar cortex about 5 mm. Discussed finding with radiologist, Dr. Coley. He suggests that the infarction is anywhere from hours to several days old. He suggests that it does not correlate with her symptoms and is likely to not have any neurological effects given its location and size. He suggests it likely came from an end artery as opposed to a major vessel. He suggests the possibility of a small septic emboli as the cause. Cardiology consulted, suggesting possibility of cardioembolic or septic emboli. She does have a soft aortic murmur. Head MRA showing severe multi-vascular disease with occlusions and stenoses in multiple territories, suggesting possible embolic events. Carotid doppler suggesting 50-60% stenosis of carotid arteries bilaterally. EEG with generalized slowing, likely encephalopathy. - On aspirin 81 mg daily - Added a statin, continue gemfibrozil from home - TERRELL on 09/21 to assess for possible source of embolization - Cardiac monitoring, rule out an arrhythmia. - Has bilateral SCD's and prophylactic heparin. - Hold antihypertensives in case of continued ischemic events. - Repeat MRI fo the brain 09/21 pending due to new findings on MRA that do not correlate with original MRI. - Consulted neurology, cardiology, infectious disease, appreciate recommendations. (3) Elevated troponin ICD Codes: R74.8 - Abnormal levels of other serum enzymes Status: Acute Plan: Elevated troponin, but remains relatively flat. Cardiology consulted, suggesting likely demand mediated in the context of kidney disease. - May consider Lexiscan depending on recovery. (4) Delirium due to another medical condition ICD Codes: F05 - Delirium due to known physiological condition Status: Resolved Plan: Delirium improved, likely secondary to illness. - Blinds open in day, closed at night - Minimal distractions at night - Limit sedating medications - Avoid restraints as much as possible - Family by bedside as much as possible - Frequent re-orientation. - Treat underlying illness (5) Acute kidney injury ICD Codes: N17.9 - Acute kidney failure, unspecified Status: Acute Plan: Creatinine of 2.88 on admission increased from baseline of about 0.5, continuing to trend down. - Monitor renal function - Holding JEANNIE inhibitor - Avoid nephrotoxic agents, renally dose medications - Continue normal saline at 125 mls/hr - Nephrology on board (6) Diabetes mellitus ICD Codes: E11.9 - Type 2 diabetes mellitus without complications Status: Chronic Plan: Very poor control at home, glucose running 200s to 300s per patient, greater than 500 on admission probably from sepsis. A1C 12.2. Has not been taking her oral medications at home and not on insulin. Poor understanding of diabetes. Only on glipizide at home. - Decreased to low sliding scale insulin due to borderline low glucoses in hospital. - Glucose checks before meals and at bedtime - Diabetic diet if she passes swallow eval - Consulted learning technologies specialist - Consulted case management to assess possible reasons for poor compliance and attendance at office visits - Likely will need insulin at home (7) Hypertension Status: Chronic Plan: History of hypertension - Hold home lisinopril and amlodipine - Hold metoprolol given permissive hypertension with acute CVA (8) Dyslipidemia ICD Codes: E78.5 - Dyslipidemia Status: Chronic Plan: Continue home gemfibrozil Started Pravastatin 40 mg daily (9) FEN/PPX Plan: Fluids: NS at 125 mls/hr Electrolytes: Monitor and replace as needed, monitor renal function Nutrition: Diabetic diet DVT: Heparin 5000 units subcutaneous 3 times a day currently on hold, bilateral SCD's CODE STATUS: Full code (Eric Bertrand MD R3) Eric Bertrand MD R3 Sep 21, 2017 10:28 French Salter MD Sep 23, 2017 15:10
[2017-09-21] MEDS: ACETAMINOPHEN 325 MG TAB PO PRN ×3 (10:29→23:16)
[2017-09-21 11:39] LABS: ALBUMIN SPE 2.12 GM/DL (3.50-5.00); ALPHA 1 GLOBULIN 0.68 GM/DL (0.11-0.29); ALPHA 2 GLOBULIN 1.27 GM/DL (0.22-1.00); BETA GLOBULINS (SPE) 1.37 GM/DL (0.53-1.03)
[2017-09-21] MEDS ORDERED: PROPOFOL 200 MG/20 ML AMP IV ONE (12:00)
[2017-09-21] MEDS ORDERED: LIDOCAINE HCL 1% PF 5 ML AMPULE OTHER ONE (12:00)
[2017-09-21 13:28] LABS: MEAN CELL VOLUME 88.2 FL (80.0-100.0); MEAN CORPUSCULAR HEMOGLOBIN 29.1 PG (27.0-34.0); PLATELET COUNT 309 TH/MM3 (150-450); RED BLOOD COUNT 3.41 MIL/MM3 (4.00-5.30); RED CELL DISTRIBUTION WIDTH 14.9 % (11.6-17.2); REVIEW FLAG FINAL
[2017-09-21 14:01] LABS: BLOOD UREA NITROGEN 40 MG/DL (7-18); GLOMERULAR FILTRATION RATE 41 ML/MIN (>89)
[2017-09-21 14:02] LABS: ALKALINE PHOSPHATASE 224 U/L (45-117); ALT (GPT) 36 U/L (10-53); ANION GAP 14 MEQ/L (5-15); AST (GOT) 19 U/L (15-37); BICARBONATE 14.6 MEQ/L (21.0-32.0); CHLORIDE 110 MEQ/L (98-107); SODIUM (NA) 139 MEQ/L (136-145); TOTAL BILIRUBIN ADULT 0.5 MG/DL (0.2-1.0)
[2017-09-21] MEDS ORDERED: MISCELLANEOUS NURSING INFORMATION XX PRN (15:00)
--- NOTE | 2017-09-21 17:10 | HHI.NPPN ---
Subjective History of Present Illness 67-year-old female with past medical history of hypertension, diabetes mellitus, hyperlipidemia who came to the hospital with complaint of right-sided abdominal pain and dysuria. I was called to see the patient because of elevated BUN and creatinine. The patient had a creatinine of 2.8 on admission. Previously she had creatinine of 0.4, and this was in 2013. Additional Remarks Patient is alert, no SOB, feeling better and seems to be fully oriented, still not eating well. Objective Data Data Vital Signs Date Time Temp Pulse Resp B/P (MAP) Pulse Ox O2 Delivery O2 Flow Rate FiO2 09/21/17 12:00 98.5 73 16 169/77 (107) 98 09/21/17 10:40 95 21 09/21/17 08:15 Room Air 09/21/17 08:04 70 09/21/17 08:00 98.8 70 18 166/72 (103) 94 09/21/17 04:00 98.2 70 21 148/65 (92) 96 09/21/17 00:00 98.1 79 21 158/60 (92) 95 09/20/17 22:30 Room Air 09/20/17 20:00 97.8 73 18 152/65 (94) 93 -: 09/21/17 1250 09/21/17 1250 Physical Exam General Appearance: No Acute Distress, Comfortable Eyes Eye Exam: Pupils Equal Throat Throat Exam: Oral Mucosa [place] & Moist Neck Neck Exam: Neck Supple Pulmonary Resp Exam: Breath Sounds Equal, Rhonchi, Decreased Bases, Diminished Breath Sounds Cardiology CV Exam: Regular, Normal Sinus Rhythm Gastrointestinal/Abdomen GI Exam: Soft, Non-Tender, Bowel Sounds Present Extremeties Extremities Exam: Trace Edema Neurologic Neuro Exam: Alert, Awake Assessment/Plan Assessment Summary: DELLA/Acute Renal Failure Problem List: (1) Essential hypertension ICD Codes: I10 - Essential hypertension Status: Acute (2) Leukocytosis ICD Codes: D72.829 - Leukocytosis Status: Acute (3) Pyelonephritis ICD Codes: N12 - Pyelonephritis Status: Acute (4) Sepsis ICD Codes: A41.9 - Sepsis, unspecified organism Status: Acute (5) Acute kidney injury ICD Codes: N17.9 - Acute kidney failure, unspecified Status: Acute Plan Patient has Acute kidney injury. Differential will be ATN from sepsis/UTI/Pyelonephritis. Also an element of obstructive uropathy. Post cystoscopy and stent placement. Non oliguric. Creatinine is slightly better. Repeat culture still positive. Has E. Coli sepsis. Continue ceftriaxone, ID is following. Cardiology consult noted. MRA seen, Creatinine is better. Has metabolic acidosis, Lactic acid is normal. Creatinine continue to improve. Hco3 is low, continue IVF and antibiotics. Problem Qualifiers (1) Leukocytosis: Qualified Codes: D72.825 - Bandemia (2) Sepsis: Qualified Codes: A41.9 - Sepsis, unspecified organism Pita Huitron MD Sep 21, 2017 17:10
[2017-09-21] MEDS: SODIUM BICARBONATE 8.4% INJ 75 MEQ in SODIUM CHLOR 0.45% 1000 ML INJ 1,000 ML IV SCH ×2 (17:35→17:51)
--- NOTE | 2017-09-21 17:47 | RADRPT ---
EXAM DATE/TIME: 09/21/2017 16:48 [facility] COMPARISON: MRI BRAIN W/O CONTRAST, September 19, 2017, 12:49. INDICATIONS : CVA. MEDICAL HISTORY : Hypertension. Diabetes mellitus type 2. SURGICAL HISTORY : section. Ureteral stent ENCOUNTER: Subsequent ACUITY: 4-6 days PAIN SCORE: 0/10 LOCATION: cranial TECHNIQUE: Multiplanar, multisequence MRI of the brain was performed without contrast. FINDINGS: MRI on 09/19/17 demonstrated a small focal area of T2 prolongation and restricted diffusion in the la teral left mid cerebellar hemisphere. This focal area is unchanged in size and appearance when courtney red to the prior MR. There are no new focal areas of restricted diffusion in the infratentorial or s upratentorial brain. Ventricles are normal in size. No evidence of cerebral edema, acute blood products, or extra-axial f luid collections. The pituitary is normal in configuration. This was partially orbits and paranasal sinuses is unremarkable. CONCLUSION: Stable size and appearance to the small area of restricted diffusion in the left cerebellum. No new findings. Corey Coley MD on September 21, 2017 at 17:42 Board Certified Radiologist. This report was verified electronically.
--- NOTE | 2017-09-21 20:10 | ECHRPT ---
Indication: CONCLUSIONS Normal left ventricular size and wall thickness. The left ventricular systolic function is normal wi th an estimated ejection fraction in the range of 60-65%. Left ventricular diastolic function parameters a re normal. Atrial septal aneurysm is present (benign finding). A patent foramen ovale is present with a igdr-bl-dlspf shunt demonstrated by color flow Doppler interrogation. Left to right atrial level shunt is observed with agitated saline contrast administration. Normal left atrial appendage size with no evidence of thrombus formation. Structurally normal mitral valve. Trace mitral valve regurgitation. Mitral annular calcification is present. Aortic valve sclerosis is present. Structurally normal tricuspid valve. There is mild to moderate tricuspid valve regurgitation. There is estimated mild pulmonary hypertension present (range 40-50 mmHg). BP: / HR: Rhythm: Sinus MEASUREMENTS (Male / Female) Normal Values Technical Quality:Good DOPPLER TR Peak Velocity 279.0 cm/s Pulmonary Artery Systolic 41.1 mmHg TR Peak Gradient 31.1 mmHg Right Ventricular Systoli 41.1 mmHg Right Atrial Pressure 10.0 mmHg Medications Complications Proc. Components The patient was brought to the diagnostic imaging area in a fasting state after o btaining an informed consent. The posterior pharynx was sprayed with Cetacaine spray and the patient w as administered viscous Xylocaine 2%. The TERRELL probe was passed into the posterior pharynx , mid- esophagus, distal esophagus, and gastric fundus. TERRELL was performed at multiple levels. The patient tolerated the procedure well and there were no complications. The patient was transferred to the floor in satisfactory condition.. FINDINGS LEFT VENTRICLE Normal left ventricular size and wall thickness. The left ventricular systolic function is normal wi th an estimated ejection fraction in the range of 60-65%. Left ventricular diastolic function parameters a re normal. RIGHT VENTRICLE Normal right ventricular size and systolic function. LEFT ATRIUM The left atrial size is normal. RIGHT ATRIUM The right atrial size is normal. ATRIAL APPENDAGES Normal left atrial appendage size with no evidence of thrombus formation. ATRIAL SEPTUM Atrial septal aneurysm is present (benign finding). A patent foramen ovale is present with a pwyr-st-qmukx shunt demonstrated by color flow Doppler interrogation. Left to right atrial level shunt is observed with agitated saline contrast administration. AORTA The aortic root and proximal ascending aorta are normal in size on limited imaging. MITRAL VALVE Structurally normal mitral valve. Trace mitral valve regurgitation. Mitral annular calcification is present. AORTIC VALVE Trileaflet aortic valve. Mild thickening of the aortic valve leaflets. No aortic valve regurgitation. Aortic valve sclerosis is present. No aortic valve stenosis. TRICUSPID VALVE Structurally normal tricuspid valve. There is mild to moderate tricuspid valve regurgitation. There is estimated mild pulmonary hypertension present (range 40-50 mmHg). VESSELS The inferior vena cava is normal in size. PULMONARY VALVE No pulmonary valve regurgitation or stenosis. PERICADIUM No pericardial effusion. Amrit Swan MD, FACC (Electronically Signed) Final Date:21 September 2017 20:09
[2017-09-21] MEDS: PRAVASTATIN SOD 40 MG TAB PO SCH (21:02)
--- NOTE | 2017-09-21 21:05 | EKG ---
Date Performed: 09/21/2017 Time Performed: 10:22:10 PTAGE: 67 years EKG: Sinus rhythm ANTEROSEPTAL MYOCARDIAL INFARCTION , OF INDETERMINATE AGE ABNORMAL ECG PREVIOUS TRACING : 12/12/2009 07.45 Compared to prior tracing no significant change DOCTOR: Morteza Baez Interpretating Date/Time 09/21/2017 21:04:10
[2017-09-22] VITALS (7 sets, daily range): BP systolic 135–191; BP diastolic 74–92; PULSE 70–85; RESP 16–20; TEMP 97.3–98.5; O2SAT 96–98
[2017-09-22] MEDS: ACETAMINOPHEN 325 MG TAB PO PRN ×2 (05:40→21:47)
[2017-09-22] MEDS: SODIUM BICARBONATE 8.4% INJ 75 MEQ in SODIUM CHLOR 0.45% 1000 ML INJ 1,000 ML IV SCH ×2 (05:43→18:33)
[2017-09-22] MEDS: MEROPENEM INJ 1,000 MG in SODIUM CHLORIDE 0.9% INJ 100 ML IV SCH (05:51)
[2017-09-22] MEDS: GEMFIBROZIL 600 MG TAB PO SCH ×2 (05:53→16:03)
--- NOTE | 2017-09-22 08:22 | HHI.PR ---
Subjective Remarks low grade temp Objective Vital Signs Date Time Temp Pulse Resp B/P (MAP) Pulse Ox O2 Delivery O2 Flow Rate FiO2 09/22/17 04:35 98.5 70 16 135/92 (106) 96 Automatic Cuff 09/22/17 01:20 181/83 (115) 178/80 (112) 09/22/17 00:00 97.6 76 18 97 09/21/17 21:21 77 167/76 (106) 09/21/17 21:19 Room Air 09/21/17 20:04 98.7 72 16 168/80 (109) 96 09/21/17 20:00 74 09/21/17 16:00 97.3 70 18 117/80 (92) 98 09/21/17 12:00 98.5 73 16 169/77 (107) 98 09/21/17 10:40 95 21 I/O 09/21/17 09/21/17 09/21/17 09/22/17 09/22/17 09/22/17 07:00 15:00 23:00 07:00 15:00 23:00 Intake Total 100 ml 1000 ml 1897 ml Output Total 2100 ml 1500 ml 1400 ml Balance -2000 ml -500 ml 497 ml Intake Oral 0 ml 0 ml 600 ml IV Total 100 ml 1000 ml 1297 ml Output Urine Total 2100 ml 1500 ml 1400 ml # Bowel Movements 0 1 3 Result Diagram: 09/21/17 1250 09/21/17 1250 Objective Remarks much more alert and awake and interactive ox3 vff moves all well [facility] [place] year month not aphasic exasm normal Assessment and Plan Assessment and Plan imp abg 7.28 pH ? from sepsis defer to med team on acidosis probably contributed to ms change i dw cards to do chanell mra echo eeg pend esr >140 probably some endocarditis i do not at this point think meningitis or encephalitis clinically ID on case dep on course about asa or sq heparin at this point much better neuro tejada ------ 09/21/17 back to nl neuro tejada mra neck echo and eeg nl mra cow poor flow r mca and some dec branch flow could have been mult small emboli will recheck mri creat too high for cta for chanell i restarted asa and get oob keep well hydrated and bp up 09/22/17 sr nl neuro on asa willinc to 325 i started sq heparin today repeat mri no new cva mra a lot of arterial dz labs neg has pfo but at this stage since not on asa at home would just rx with asa check ble for and dvt could of course had developed small pelvic clot with pyelo will have ct reviewed for any of that with rads would not close pfo now or do coumadin for now esr inc but septic and check fu claudia Sean Hawk MD Sep 22, 2017 08:21
[2017-09-22 08:31] LABS: HEMATOCRIT 31.6 % (35.0-46.0); MEAN CELL VOLUME 89.4 FL (80.0-100.0); MEAN CORPUSCULAR HEMOGLOBIN 29.3 PG (27.0-34.0); MEAN CORPUSCULAR HGB CONC 32.8 % (32.0-36.0); PLATELET COUNT 442 TH/MM3 (150-450); RED BLOOD COUNT 3.54 MIL/MM3 (4.00-5.30); RED CELL DISTRIBUTION WIDTH 14.3 % (11.6-17.2); REVIEW FLAG FINAL; WHITE BLOOD COUNT 15.9 TH/MM3 (4.0-11.0)
[2017-09-22] MEDS: SODIUM CHLORIDE 0.9% FLUSH 10 ML FLUSH IV FLUSH SCH ×2 (08:37→21:00)
[2017-09-22] MEDS: INSULIN ASPART SUPPLEMENTAL SCALE SQ SCH ×4 (08:37→22:20)
[2017-09-22 09:11] LABS: BICARBONATE 18.9 MEQ/L (21.0-32.0); POTASSIUM 3.3 MEQ/L (3.5-5.1)
--- NOTE | 2017-09-22 09:55 | RADRPT ---
EXAM DATE/TIME: 09/22/2017 08:57 [facility] COMPARISON: No previous studies available for comparison. INDICATIONS : Bilateral leg swelling. MEDICAL HISTORY : Hypercholesterolemia. Bilateral feet numbness. Abdominal pain. Dysuria. Back pain. Diabetes. MRSA. SURGICAL HISTORY : section. ENCOUNTER: Initial ACUITY: 1 day PAIN SCORE: 1/10 LOCATION: Bilateral leg. TECHNIQUE: Venous ultrasound of the left and right leg was performed from the inguinal ligament to the proximal calf. Real-time, color Doppler and spectral tracing, compression and augmentation techniques were us ed. FINDINGS: RIGHT LEG: There is normal compressibility of the deep venous system from the inguinal region to the proximal ca lf. No echogenic clot is seen in the lumen of the common femoral, femoral, popliteal, and posterior tibial veins. There is a normal response of the venous system to proximal and distal augmentation an d respiration. LEFT LEG: There is normal compressibility of the deep venous system from the inguinal region to the proximal ca lf. No echogenic clot is seen in the lumen of the common femoral, femoral, popliteal, and posterior tibial veins. There is a normal response of the venous system to proximal and distal augmentation an d respiration. CONCLUSION: The study is negative for deep venous thrombosis bilateral lower extremity. Corey Coley MD on September 22, 2017 at 9:53 Board Certified Radiologist. This report was verified electronically.
[2017-09-22 10:10] LABS: ANA SCREEN NEG (NEG)
[2017-09-22] MEDS: ASPIRIN 325 MG TAB PO SCH (10:11)
--- NOTE | 2017-09-22 11:35 | HHI.FPPN ---
Subjective Remarks Patient awake and alert this morning, in good spirits. Improving left cerebellar functions. Eager to work with physical therapy today, wants to get up and into a chair. Flank pain on right side improving. No chest pain or shortness of breath. No calf tenderness. Getting scan for DVT's this morning due to finding of PFO and recent CVA. Has good appetite. (Eric Bertrand MD R3) Objective Vitals Vital Signs Date Time Temp Pulse Resp B/P (MAP) Pulse Ox O2 Delivery O2 Flow Rate FiO2 09/22/17 08:00 71 09/22/17 08:00 97.3 71 18 185/82 (116) 96 Manual Cuff/Auscultation 09/22/17 04:35 98.5 70 16 135/92 (106) 96 Automatic Cuff 09/22/17 01:20 181/83 (115) 178/80 (112) 09/22/17 00:00 97.6 76 18 97 09/21/17 21:21 77 167/76 (106) 09/21/17 21:19 Room Air 09/21/17 20:04 98.7 72 16 168/80 (109) 96 09/21/17 20:00 74 09/21/17 16:00 97.3 70 18 117/80 (92) 98 09/21/17 12:00 98.5 73 16 169/77 (107) 98 I/O 09/21/17 09/21/17 09/21/17 09/22/17 09/22/17 09/22/17 07:00 15:00 23:00 07:00 15:00 23:00 Intake Total 100 ml 1000 ml 1897 ml Output Total 2100 ml 1500 ml 1400 ml Balance -2000 ml -500 ml 497 ml Intake Oral 0 ml 0 ml 600 ml IV Total 100 ml 1000 ml 1297 ml Output Urine Total 2100 ml 1500 ml 1400 ml # Bowel Movements 0 1 3 (Eric Bertrand MD R3) Result Diagram: 09/22/1739 09/22/1739 Imaging Last 72 hours Impressions Lower Extremity Ultrasound 09/22/17 0000 Signed Impressions: Service Date/Time: August 08:57 - CONCLUSION: The study is negative for deep venous thrombosis bilateral lower extremity. Corey Coley MD Brain MRI 09/21/17 0000 Signed Impressions: Service Date/Time: Thursday, September 21, 2017 16:48 - CONCLUSION: Stable size and appearance to the small area of restricted diffusion in the left cerebellum. No new findings. Corey Coley MD Neck Magnetic Resonance Angiography 09/20/171735 Signed Impressions: Service Date/Time: Wednesday, September 20, 2017 08:19 - CONCLUSION: 1. Technically limited examination with nonvisualization of the arch and distal aspect of the vertebral/internal. 2. Midportion of the vertebrals and both carotid bifurcations appear to be patent. 3. If there is a clinical concern for significant cervical vascular disease, CTA of the neck vasculature may be considered for further characterization. Rony Sarabia MD Head Magnetic Resonance Angiography 09/20/171735 Signed Impressions: Service Date/Time: Wednesday, September 20, 2017 08:19 - CONCLUSION: 1. MRI suggests severe multi-vascular territory disease with short segment occlusion/high-grade stenosis in the distal left internal carotid, the left M1 segment and occlusion of the right MCA territory near its origin. There also appear to be segmental stenoses in the posterior cerebral arteries as well. Findings are suggestive of a multi-territory embolic event. 2. However, findings are discordant from the most recent MRI of the brain performed one day earlier which only showed minimal diffusion restriction in the left PICA distribution. Unless the patient has had a recent cerebrovascular event in the last 24 hours , I would suggest CTA of the intracranial circulation for further characterization. Rony Sarabia MD Abdomen/Pelvis CT 09/20/17 0600 Signed Impressions: Service Date/Time: Wednesday, September 20, 2017 09:03 - CONCLUSION: 1. 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 2. Interval placement of a right-sided double-J stent which is in good position. No hydronephrosis. 3. No abscess. 4. New tiny bilateral pleural effusions. Corey Millan Jr., MD Objective Remarks GENERAL: Getting scan for DVT, in good spirits, awake and alert SKIN: No rashes or lesions HEAD: NC/AT EYES: No conjunctival injection or drainage. ENT: No nasal discharge, no oral secretions NECK: Supple, no lymphadenopathy. No JVD. CARDIOVASCULAR: RRR, faint systolic murmur, no rubs or gallops, pulses symmetrical. No [place]ay lesions or [place] nodes, no splinter hemorrhages. RESPIRATORY: CTAB. No crackles or wheezes. GASTROINTESTINAL: Abdomen soft, non-distended, non-tender to palpation. GENITOURINARY: Mild CVA tenderness on right, improved MUSCULOSKELETAL: Extremities without clubbing, cyanosis, or edema. NEUROLOGICAL: Awake and alert. Strength and sensation normal peripherally. Mild difficulty with [id number] on left and heel to roger on left, but improving daily. 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 Now with ureteral stent, improving with conservative management. Urology and infectious disease are on board. Also with initial delirium and finding of small acute vs. subacute infarction of left cortex of cerebellum. Cardiology and neurology on board. Discharge Planning Pending resolution of sepsis, afebrile, resolved leukocytosis, diabetic education, decent control of diabetes, good outpatient follow up, completed workup for stroke (Eric Bertrand MD R3) Attending Attestation A detailed discussion regarding patients diagnosis was held with Dr Bertrand,Seen and examined EMR reviewed, Agree with contents of note and dianosis, See Orders.Mentally feels better (French Salter MD) Problem List: (1) Emphysematous pyelonephritis ICD Codes: N12 - Tubulo-interstitial nephritis, not specified as acute or chronic Status: Acute Plan: White count back to normal, afebrile overnight. Emphysematous pyelonephritis involving the right kidney, repeat CT showing continued severe pyelonephritis but no hydronephrosis. Ureteral stent in place. UA with moderate blood, positive nitrites, large leukocyte esterase, few bacteria. Urology on board, she is status post ureteral stent on right. Infectious disease also on board, helping to manage antibiotics. Blood culture positive for E.coli, urine with e.coli, colony counts improving. - Cefepime at admission changed to Zosyn, switched to Ceftriaxone on 09/19. Changed to meropenem on 09/20. Changed to Ceftriaxone 09/22. - Per urology, continue with conservative management. Nephrostomy tube not required at this time. - Tylenol 650 mg every 6 hours PRN for flank pain. - Hold opiate medications due to delirium. - Zofran 4 mg IV every 8 hours as needed for nausea and vomiting - Control diabetes as below - Follow blood and urine cultures. (2) Acute ischemic stroke ICD Codes: I63.9 - Cerebral infarction, unspecified Status: Acute Plan: MRI brain ordered 09/19 for altered mental status, some uncoordination with walking. Small acute versus subacute infarction of the left cerebellar cortex about 5 mm. Discussed finding with radiologist, Dr. Coley. He suggests that the infarction is anywhere from hours to several days old. He suggests that it does not correlate with her symptoms and is likely to not have any neurological effects given its location and size. He suggests it likely came from an end artery as opposed to a major vessel. He suggests the possibility of a small septic emboli as the cause. Head MRA showing severe multi-vascular disease with occlusions and stenoses in multiple territories, suggesting possible embolic events. However, repeat brain MRI is the same as initial MRI, so not correlated with the findings on the MRA. TERRELL showed a PFO, but no vegetations. Carotid doppler suggesting 50-60% stenosis of carotid arteries bilaterally. EEG with generalized slowing, likely encephalopathy. LE ultrasound to check for DVT (due to PFO) is negative. - Aspirin increased to 325 mg daily - On statin, continue gemfibrozil from home - Cardiac monitoring - Has bilateral SCD's and prophylactic heparin. - Restarted amlodipine, holding lisinopril due to DELLA. - Neurology suggests not closing PFO, will treat with aspirin. No therapeutic anticoagulation recommended for now. - Consulted neurology, cardiology, infectious disease, appreciate recommendations. (3) Elevated troponin ICD Codes: R74.8 - Abnormal levels of other serum enzymes Status: Acute Plan: Elevated troponin, but remained relatively flat. Cardiology consulted, suggesting likely demand mediated in the context of kidney disease. - May consider Lexiscan depending on recovery. (4) Delirium due to another medical condition ICD Codes: F05 - Delirium due to known physiological condition Status: Resolved Plan: Delirium improved, likely secondary to illness. - Blinds open in day, closed at night - Minimal distractions at night - Limit sedating medications - Avoid restraints as much as possible - Family by bedside as much as possible - Frequent re-orientation. - Treat underlying illness (5) Acute kidney injury ICD Codes: N17.9 - Acute kidney failure, unspecified Status: Acute Plan: Creatinine of 2.88 on admission increased from baseline of about 0.5, continuing to trend down. - Monitor renal function - Holding JEANNIE inhibitor - Avoid nephrotoxic agents, renally dose medications - Continue normal saline at 125 mls/hr - Nephrology on board (6) Diabetes mellitus ICD Codes: E11.9 - Type 2 diabetes mellitus without complications Status: Chronic Plan: Very poor control at home, glucose running 200s to 300s per patient, greater than 500 on admission probably from sepsis. A1C 12.2. Has not been taking her oral medications at home and not on insulin. Poor understanding of diabetes. Only on glipizide at home. - Decreased to low sliding scale insulin due to borderline low glucoses in hospital. - Glucose checks before meals and at bedtime - Diabetic diet if she passes swallow eval - Consulted conservation educator - Consulted case management to assess possible reasons for poor compliance and attendance at office visits - Likely will need insulin at home (7) Hypertension Status: Chronic Plan: History of hypertension - Continued amlodipine - Holding lisinopril for DELLA (8) Dyslipidemia ICD Codes: E78.5 - Dyslipidemia Status: Chronic Plan: Continue home gemfibrozil Started Pravastatin 40 mg daily (9) FEN/PPX Plan: Fluids: NS at 125 mls/hr Electrolytes: Monitor and replace as needed, monitor renal function Nutrition: Diabetic diet DVT: Heparin 5000 units subcutaneous 3 times a day currently on hold, bilateral SCD's CODE STATUS: Full code (Eric Bertrand MD R3) Eric Bertrand MD R3 Sep 22, 2017 11:35 French Salter MD Sep 23, 2017 15:13
[2017-09-22 11:38] LABS: RHEUMATOID FACTOR TRIGGER LESS THAN 10.0 IU/ML (0.0-14.9)
--- NOTE | 2017-09-22 12:29 | PD.CARD.PN ---
Subjective Subjective Remarks clinically doing well no events Objective Medications Current Medications Medications (Trade) Dose Ordered Sig/Alisha Route Start Time Stop Time Status Last Admin (NS Flush) 2 ml UNSCH PRN IV FLUSH 09/16/17 19:30 (NS Flush) 2 ml BID IV FLUSH 09/16/17 21:00 09/22/17 08:37 (Norvasc) 10 mg DAILY PO 09/17/17 09:00 Future hold 09/18/17 09:44 (Lopid) 300 mg BIDAC PO 09/17/17 07:00 09/22/17 05:53 (Prinivil) 40 mg DAILY PO 09/17/17 09:00 Future Hold 09/17/17 09:56 (Narcan Inj) 0.4 mg UNSCH X1 PRN IV PUSH 09/16/17 20:15 10/16/17 20:14 (Zofran Inj) 4 mg Q8HR PRN IV PUSH 09/16/17 20:15 (Levemir Inj) 10 units Q12HR SQ 09/16/17 21:00 Future Hold 09/17/17 20:40 (NovoLOG INJ) 8 units TIDAC SQ 09/17/17 08:00 Future Hold 09/17/17 17:34 (D50w (Vial) Inj) 50 ml UNSCH PRN IV PUSH 09/16/17 20:15 (Glucagon Inj) 1 mg UNSCH PRN OTHER 09/16/17 20:15 (NovoLOG SUPPLEMENTAL SCALE) 1 ACHS SLIDING SCALE SQ 09/19/17 12:00 09/22/17 08:37 (Pravachol) 40 mg HS PO 09/19/17 21:00 09/21/17 21:02 Meropenem 1000 mg/ Sodium Chloride 100 ml @ 200 mls/hr Q8H IV 09/20/17 15:00 09/22/17 05:51 Sodium Bicarbonate 75 meq/Sodium Chloride 1,075 ml @ 100 mls/hr [id number] IV 09/20/17 21:00 09/22/17 05:43 Lactated Ringer's 1,000 ml @ 30 mls/hr Q24H PRN IV 09/21/17 03:15 09/24/17 03:14 Sodium Chloride 500 ml @ 30 mls/hr [id number] PRN IV 09/21/17 03:15 09/24/17 03:14 (Lopressor) 25 mg SHAPER MACHINE HAND PRN PO 09/21/17 03:15 09/24/17 03:14 (Betadine 5% Antisepsis Kit) 1 applic SHAPER MACHINE HAND PRN EACH NARE 09/21/17 03:15 09/24/17 03:14 (Chlorhexidine 2% Cloth) 3 pack SHAPER MACHINE HAND PRN TOPICAL 09/21/17 03:15 09/24/17 03:14 Miscellaneous Information 1 UNSCH PRN XX 09/21/17 15:00 09/24/17 14:59 (Heparin Inj) 5,000 units Q8HR SQ 09/22/17 08:30 UNV (Aspirin) 325 mg DAILY PO 09/22/17 09:15 09/22/17 10:11 (Tylenol) 650 mg Q6H PO 09/22/17 10:45 09/22/17 10:46 UNV Vital Signs / I&O Vital Signs Date Time Temp Pulse Resp B/P (MAP) Pulse Ox O2 Delivery O2 Flow Rate FiO2 09/22/17 08:00 71 09/22/17 08:00 97.3 71 18 185/82 (116) 96 Manual Cuff/Auscultation 09/22/17 04:35 98.5 70 16 135/92 (106) 96 Automatic Cuff 09/22/17 01:20 181/83 (115) 178/80 (112) 09/22/17 00:00 97.6 76 18 97 09/21/17 21:21 77 167/76 (106) 09/21/17 21:19 Room Air 09/21/17 20:04 98.7 72 16 168/80 (109) 96 09/21/17 20:00 74 09/21/17 16:00 97.3 70 18 117/80 (92) 98 I/O 09/21/17 09/21/17 09/21/17 09/22/17 09/22/17 09/22/17 07:00 15:00 23:00 07:00 15:00 23:00 Intake Total 100 ml 1000 ml 1897 ml Output Total 2100 ml 1500 ml 1400 ml Balance -2000 ml -500 ml 497 ml Intake Oral 0 ml 0 ml 600 ml IV Total 100 ml 1000 ml 1297 ml Output Urine Total 2100 ml 1500 ml 1400 ml # Bowel Movements 0 1 3 Physical Exam GENERAL: SKIN: Warm and dry. HEAD: Normocephalic. EYES: No scleral icterus. No injection or drainage. NECK: Supple, trachea midline. No JVD or lymphadenopathy. CARDIOVASCULAR: Regular rate and rhythm without murmurs, gallops, or rubs. RESPIRATORY: Breath sounds equal bilaterally. No accessory muscle use. GASTROINTESTINAL: Abdomen soft, non-tender, nondistended. MUSCULOSKELETAL: No cyanosis, or edema. BACK: Nontender without obvious deformity. No CVA tenderness. Laboratory Laboratory Tests Test 09/21/17 12:50 09/22/17 06:39 09/22/17 09:49 White Blood Count 14.0 TH/MM3 15.9 TH/MM3 Red Blood Count 3.41 MIL/MM3 3.54 MIL/MM3 Hemoglobin 9.9 GM/DL 10.4 GM/DL Hematocrit 30.0 % 31.6 % Mean Corpuscular Volume 88.2 FL 89.4 FL Mean Corpuscular Hemoglobin 29.1 PG 29.3 PG Mean Corpuscular Hemoglobin Concent 33.0 % 32.8 % Red Cell Distribution Width 14.9 % 14.3 % Platelet Count 309 TH/MM3 442 TH/MM3 Mean Platelet Volume 7.9 FL 8.3 FL Hematology Comments Blood Urea Nitrogen 40 MG/DL 30 MG/DL Creatinine 1.53 MG/DL 1.23 MG/DL Random Glucose 220 MG/DL 217 MG/DL Total Protein 6.6 GM/DL Albumin 1.5 GM/DL Calcium Level 8.7 MG/DL 8.9 MG/DL Alkaline Phosphatase 224 U/L Aspartate Amino Transf (AST/SGOT) 19 U/L Alanine Aminotransferase (ALT/SGPT) 36 U/L Total Bilirubin 0.5 MG/DL Sodium Level 139 MEQ/L 140 MEQ/L Potassium Level 4.0 MEQ/L 3.3 MEQ/L Chloride Level 110 MEQ/L 108 MEQ/L Carbon Dioxide Level 14.6 MEQ/L 18.9 MEQ/L Anion Gap 14 MEQ/L 13 MEQ/L Estimat Glomerular Filtration Rate 41 ML/MIN 53 ML/MIN Rheumatoid Factor Screen NEGATIVE Rheumatoid Factor Titer IU/ML Imaging Last 24 hours Impressions Lower Extremity Ultrasound 09/22/17 0000 Signed Impressions: Service Date/Time: August 08:57 - CONCLUSION: The study is negative for deep venous thrombosis bilateral lower extremity. Corey Coley MD Assessment and Plan Problem List: (1) Elevated troponin ICD Codes: R74.8 - Abnormal levels of other serum enzymes Status: Acute (2) Acute ischemic stroke ICD Codes: I63.9 - Cerebral infarction, unspecified Status: Acute Assessment and Plan CVA - multivascular distribution. small PFO with shunting not percutaneous closure candidate at this time due to infection Would recommend anticoagulation for prevention if cleared by neurology to do so (low risk of hemorrhagic conversion) then I can FU in OPD for consideration of PFO closure, if she decides to proceed that way will sign off call with further questions. Amrit Swan MD Sep 22, 2017 12:29
[2017-09-22] MEDS: HEPARIN SODIUM - SQ 10,000 UNITS/ML VIAL SQ SCH ×2 (13:43→21:48)
[2017-09-22] MEDS ORDERED: ACETAMINOPHEN 325 MG TAB PO SCH (14:00)
--- NOTE | 2017-09-22 14:32 | HHI.IDPN ---
Subjective Subjective Remarks Patient is a 67-year-old female, presented to the hospital complaining of three- day history of right-sided abdominal pain, and right flank pain. This was associated with nausea and vomiting as well as frequency and dysuria. She denies any hematuria. In the emergency room she was found to have a white count of 19,000. She has significant pyuria. Creatinine was also elevated. CT of the abdomen and pelvis showed evidence of air in the right kidney, right renal pelvis and also some air extending in the renal vein into the IVC. There is also a small amount of air seen in the hilum of the left kidney. There was some right hydronephrosis and ureter, but no kidney stones seen to cause obstruction. Patient has had prior history of bladder and kidney infection but not this severe. Patient also was found to have very high blood glucose. 2 blood cultures done and are now reported as growing gram-negative rods. Patient underwent surgery, and had cystoscopy and placement of a right ureteral stent. She has been afebrile since admission. Her white count remains elevated at 19,000. Infectious disease consultation has been requested to evaluate the patient with emphysematous pyelonephritis. Notes reviewed Temps mckenna Has one new (+) BC with GNR from 09/20 Her urology procedure was done 09/17 TERRELL with PFO Doppler US BLE no DVT Mental status baseline Still with R sided abdominal pain Last CT A/P - whole R kidney filled with air UC repeat lower colony count E coli WBC rising again Creatinine improving slowly Antibiotics I attest that I obtained, updated or reviewed the home and current medications. Meropenem Current Medications Medications (Trade) Dose Ordered Sig/Alisha Route Start Time Stop Time Status Last Admin (NS Flush) 2 ml UNSCH PRN IV FLUSH 09/16/17 19:30 (NS Flush) 2 ml BID IV FLUSH 09/16/17 21:00 09/22/17 08:37 (Norvasc) 10 mg DAILY PO 09/17/17 09:00 Future hold 09/18/17 09:44 (Lopid) 300 mg BIDAC PO 09/17/17 07:00 09/22/17 05:53 (Prinivil) 40 mg DAILY PO 09/17/17 09:00 Future Hold 09/17/17 09:56 (Narcan Inj) 0.4 mg UNSCH X1 PRN IV PUSH 09/16/17 20:15 10/16/17 20:14 (Zofran Inj) 4 mg Q8HR PRN IV PUSH 09/16/17 20:15 (Levemir Inj) 10 units Q12HR SQ 09/16/17 21:00 Future Hold 09/17/17 20:40 (NovoLOG INJ) 8 units TIDAC SQ 09/17/17 08:00 Future Hold 09/17/17 17:34 (D50w (Vial) Inj) 50 ml UNSCH PRN IV PUSH 09/16/17 20:15 (Glucagon Inj) 1 mg UNSCH PRN OTHER 09/16/17 20:15 (NovoLOG SUPPLEMENTAL SCALE) 1 ACHS SLIDING SCALE SQ 09/19/17 12:00 09/22/17 12:35 (Pravachol) 40 mg HS PO 09/19/17 21:00 09/21/17 21:02 Sodium Bicarbonate 75 meq/Sodium Chloride 1,075 ml @ 100 mls/hr [id number] IV 09/20/17 21:00 09/22/17 05:43 Lactated Ringer's 1,000 ml @ 30 mls/hr Q24H PRN IV 09/21/17 03:15 09/24/17 03:14 Sodium Chloride 500 ml @ 30 mls/hr [id number] PRN IV 09/21/17 03:15 09/24/17 03:14 (Lopressor) 25 mg RAILROAD PURCHASING AGENT PRN PO 09/21/17 03:15 09/24/17 03:14 (Betadine 5% Antisepsis Kit) 1 applic RAILROAD PURCHASING AGENT PRN EACH NARE 09/21/17 03:15 09/24/17 03:14 (Chlorhexidine 2% Cloth) 3 pack RAILROAD PURCHASING AGENT PRN TOPICAL 09/21/17 03:15 09/24/17 03:14 Miscellaneous Information 1 UNSCH PRN XX 09/21/17 15:00 09/24/17 14:59 (Heparin Inj) 5,000 units Q8HR SQ 09/22/17 14:00 Future hold 09/22/17 13:43 (Aspirin) 325 mg DAILY PO 09/22/17 09:15 09/22/17 10:11 Meropenem 1000 mg/ Sodium Chloride 100 ml @ 200 mls/hr Q12HR IV 09/22/17 21:00 Lines PIV Past Medical History Diabetes HTN Hypertriglyceridemia CAD Previous episodes of UTI Past Surgical History Caesarian section Allergies: Coded Allergies: metformin (Unverified Allergy, Severe, Numbness, 07/12/17) clonidine (Unverified Allergy, Unknown, 07/12/17) Objective . Vital Signs Date Time Temp Pulse Resp B/P (MAP) Pulse Ox O2 Delivery O2 Flow Rate FiO2 09/22/17 12:00 98.2 75 20 184/74 (110) 97 09/22/17 08:00 71 09/22/17 08:00 97.3 71 18 185/82 (116) 96 Manual Cuff/Auscultation 09/22/17 04:35 98.5 70 16 135/92 (106) 96 Automatic Cuff 09/22/17 01:20 181/83 (115) 178/80 (112) 09/22/17 00:00 97.6 76 18 97 09/21/17 21:21 77 167/76 (106) 09/21/17 21:19 Room Air 09/21/17 20:04 98.7 72 16 168/80 (109) 96 09/21/17 20:00 74 09/21/17 16:00 97.3 70 18 117/80 (92) 98 . Laboratory Tests Test 09/21/17 12:50 09/22/17 06:39 White Blood Count 14.0 TH/MM3 15.9 TH/MM3 Red Blood Count 3.41 MIL/MM3 3.54 MIL/MM3 Hemoglobin 9.9 GM/DL 10.4 GM/DL Hematocrit 30.0 % 31.6 % Mean Corpuscular Volume 88.2 FL 89.4 FL Mean Corpuscular Hemoglobin 29.1 PG 29.3 PG Mean Corpuscular Hemoglobin Concent 33.0 % 32.8 % Red Cell Distribution Width 14.9 % 14.3 % Platelet Count 309 TH/MM3 442 TH/MM3 Mean Platelet Volume 7.9 FL 8.3 FL Hematology Comments Laboratory Tests Test 09/21/17 12:50 09/22/17 06:39 Blood Urea Nitrogen 40 MG/DL 30 MG/DL Creatinine 1.53 MG/DL 1.23 MG/DL Random Glucose 220 MG/DL 217 MG/DL Total Protein 6.6 GM/DL Albumin 1.5 GM/DL Calcium Level 8.7 MG/DL 8.9 MG/DL Alkaline Phosphatase 224 U/L Aspartate Amino Transf (AST/SGOT) 19 U/L Alanine Aminotransferase (ALT/SGPT) 36 U/L Total Bilirubin 0.5 MG/DL Sodium Level 139 MEQ/L 140 MEQ/L Potassium Level 4.0 MEQ/L 3.3 MEQ/L Chloride Level 110 MEQ/L 108 MEQ/L Carbon Dioxide Level 14.6 MEQ/L 18.9 MEQ/L Anion Gap 14 MEQ/L 13 MEQ/L Estimat Glomerular Filtration Rate 41 ML/MIN 53 ML/MIN Microbiology Date/Time Source Procedure Growth Status 09/20/17 12:45 Blood Peripheral Aerobic Blood Culture - Preliminary Gram Negative Jaime Resulted 09/20/17 12:45 Blood Peripheral Anaerobic Blood Culture - Preliminary NO GROWTH IN 2 DAYS Resulted 09/20/17 09:59 Blood Peripheral Aerobic Blood Culture - Preliminary NO GROWTH IN 2 DAYS Resulted 09/20/17 09:59 Blood Peripheral Anaerobic Blood Culture - Preliminary NO GROWTH IN 2 DAYS Resulted Imaging Abdomen/Pelvis CT 09/16/17 0000 Signed Impressions: Service Date/Time: Saturday, September 16, 2017 17:27 - CONCLUSION: 1. 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 No obstructing stone or mass observed. Air is seen throughout the right kidney parenchyma, collecting system, and into the renal vein. A small amount of air is seen involving the upper pole of the left kidney near the hilum likely extension from air within the inferior vena cava. There is mild hydronephrosis and hydroureter on the right. No obstruction on the left. Corey Millan Jr., MD Physical Exam GENERAL: awake, and alert, not in respiratory distress. SKIN: Warm and dry. No generalized rash, no ecchymoses and no evidence of embolic lesions. HEAD: Atraumatic. Normocephalic. No temporal wasting, or tenderness. EYES: [place] conjunctiva. No petechia or hemorrhage. Pupils equal, round and reactive to light. Extraocular movements full and intact. No scleral icterus. No injection or drainage. EARS, NOSE AND THROAT: Nose without bleeding or purulent nasal discharge. Mucous membranes pink and moist. No oral lesions noted. No exudate. No oral thrush. NECK: Trachea midline. Supple and not tender, no meningeal signs. No nuchal rigidity. CARDIOVASCULAR: Regular rate and rhythm. No murmurs, rubs or gallops heard RESPIRATORY: Clear to auscultation. Breath sounds equal bilaterally. No rales , wheezing or rhonchi ABDOMEN: Soft, nondistended, bowel sounds present and normoactive. Tenderness on R side, but no guarding. No rebound. NEUROLOGICAL: Non-focal PSYCHIATRIC: Normal affect, calm and cooperative. LINE: No evidence of infection : [place] in place, urine still with sediment Assessment & Plan Remarks IMPRESSION E coli sepsis due to emphysematous pyelonephritis on R - S/P cysto and R ureteral stent placement - CT with progression of air (per urology, it will take a while for air to resolve) - repeat UC with lower colony count E coli, WBC down to normal - has new (+) BC ?Endocarditis - TERRELL report noted Renal insufficiency Diabetes, poorly controlled Leukocytosis, worsening Lethargy, ?could still be from sepsis, ?relative hypoglycemia - ?due to Zosyn - better RECOMMENDATION Change to Rocephin Repeat BC today and tomorrow Repeat UA and C/S Follow CBC, WBC rising again If WBC continues to rise, consider repeating CT A/P early next week Add Diflucan Monitor progress Follow new C/S Dr Mariza Granda covering for nj 09/23 Dr Griffin covering the weekend Please call ID electronic gluing machine operator if with any ID questions or issues Ann Hoffmann MD Sep 22, 2017 14:32
[2017-09-22] MEDS: cefTRIAXone INJ 2,000 MG in SODIUM CHLORIDE 0.9% INJ 100 ML IV SCH (16:03)
[2017-09-22] MEDS: FLUCONAZOLE 100 MG TAB PO SCH (16:04)
[2017-09-22 16:41] LABS: BACTERIA, URINE OCC /hpf; BLOOD, URINE LARGE (NEG); GLUCOSE,URINE 300 mg/dL (NEG); HYALINE CAST, URINE 4 /lpf (RARE); KETONE, URINE NEG (NEG); MUCUS URINE FEW /lpf (OCC); NITRITE,URINE NEG (NEG); PH, URINE 6.5 (5.0-8.5); SQUAMOUS EPITHELIAL CELL URINE <1 /hpf (0-5); URINE COLOR YELLOW (YELLW/STRAW)
[2017-09-22 16:42] LABS: COMMENT (UR) CATH-CULTURE IND; CULTURE IF INDICATED CATH CULTURE IND
--- NOTE | 2017-09-22 17:21 | HHI.NPPN ---
Subjective History of Present Illness 67-year-old female with past medical history of hypertension, diabetes mellitus, hyperlipidemia who came to the hospital with complaint of right-sided abdominal pain and dysuria. I was called to see the patient because of elevated BUN and creatinine. The patient had a creatinine of 2.8 on admission. Previously she had creatinine of 0.4, and this was in 2013. Additional Remarks Patient is alert, no SOB, feeling better and not in distress. Objective Data Data Vital Signs Date Time Temp Pulse Resp B/P (MAP) Pulse Ox O2 Delivery O2 Flow Rate FiO2 09/22/17 12:00 98.2 75 20 184/74 (110) 97 09/22/17 08:01 Room Air 09/22/17 08:00 71 09/22/17 08:00 97.3 71 18 185/82 (116) 96 Manual Cuff/Auscultation 09/22/17 04:35 98.5 70 16 135/92 (106) 96 Automatic Cuff 09/22/17 01:20 181/83 (115) 178/80 (112) 09/22/17 00:00 97.6 76 18 97 09/21/17 21:21 77 167/76 (106) 09/21/17 21:19 Room Air 09/21/17 20:04 98.7 72 16 168/80 (109) 96 09/21/17 20:00 74 -: 09/22/17 0639 09/22/17 0639 Microbiology 09/22/17 Urine Culture, Received Pending Physical Exam General Appearance: No Acute Distress, Comfortable Eyes Eye Exam: Pupils Equal Throat Throat Exam: Oral Mucosa [place] & Moist Neck Neck Exam: Neck Supple Pulmonary Resp Exam: Breath Sounds Equal, Rhonchi, Decreased Bases, Diminished Breath Sounds Cardiology CV Exam: Regular, Normal Sinus Rhythm Gastrointestinal/Abdomen GI Exam: Soft, Non-Tender, Bowel Sounds Present Extremeties Extremities Exam: Trace Edema Neurologic Neuro Exam: Alert, Awake Assessment/Plan Assessment Summary: DELLA/Acute Renal Failure Problem List: (1) Essential hypertension ICD Codes: I10 - Essential hypertension Status: Acute (2) Leukocytosis ICD Codes: D72.829 - Leukocytosis Status: Acute (3) Pyelonephritis ICD Codes: N12 - Pyelonephritis Status: Acute (4) Sepsis ICD Codes: A41.9 - Sepsis, unspecified organism Status: Acute (5) Acute kidney injury ICD Codes: N17.9 - Acute kidney failure, unspecified Status: Acute Plan Patient has Acute kidney injury. Differential will be ATN from sepsis/UTI/Pyelonephritis. Also an element of obstructive uropathy. Post cystoscopy and stent placement. Non oliguric. Creatinine is slightly better. Repeat culture still positive. Has E. Coli sepsis. Continue ceftriaxone, ID is following. Cardiology consult noted. MRA seen, Creatinine is better. Has metabolic acidosis, Lactic acid is normal. Creatinine continue to improve. Hco3 is low, continue IVF and antibiotics. Follow the urine out put and BMP. Problem Qualifiers (1) Leukocytosis: Qualified Codes: D72.825 - Bandemia (2) Sepsis: Qualified Codes: A41.9 - Sepsis, unspecified organism Pita Huitron MD Sep 22, 2017 17:21
--- NOTE | 2017-09-22 19:24 | HM ---
Date Performed: 09/20/2017 Time Performed: 12:32:00 HOOKUP DATE: 09/20/17 12:32:00 PM Tue ANALYSIS START TIME: 09/20/2017 12:37:00 PM ANALYSIS END TIME: 09/21/2017 12:41:00 PM PATIENT AGE: 67 PATIENT HEIGHT PATIENT WEIGHT DRUG LIST PATIENT DIAGNOSIS: SEPSIS TEST NARRATIVE: The patient's average heart rate was 71 BPM. No episodes of tachycardia wer e noted. No episodes of bradycardia were noted. No pauses exceeding 2.0 seconds were noted. 5 ventricular ectopics, which represented < 1% of the total beat count, were noted. The highest vent ricular ectopic frequency occurred from 12:00 PM to 01:00 PM Tue. During this time 2 VE(s) occurred. Ventricular ectopics were observed as 5 isolated beat(s) only. No couplets or runs were noted. 28 supraventricular ectopics, which represented < 1% of the total beat count, were noted. The highe st supraventricular ectopic frequency occurred from 04:00 PM to 05:00 PM Tue. During this time 3 SVE (s) occurred. No episodes of ST depression (defined as -1.0 mm or more) were noted in channel 1. No episodes of ST depression (defined as -1.0 mm or more) were noted in channel 2. No episodes of S T depression (defined as -1.0 mm or more) were noted in channel 3. TEST INTERPRETATION: Patient undergoes a holter monitor for a stated indication of evaluating se psis, but the study is ordered by a neurology and I expect its to exclude any rhythm disturbances cami t could be associated with neurologic complaints. Patient in Sinus rhythm throughout the monitoring session with just rare isolated PAC's and PVC's. No arrhythmias are noted. No diary is provided. Conclusions: A normal holter monitor without any significant rhythm disturbanc es. No diary provided so its unknown as to whether the patient is symptomatic. Signed by : Ranjana Guthrie
[2017-09-22] MEDS ORDERED: MEROPENEM INJ 1,000 MG in SODIUM CHLORIDE 0.9% INJ 100 ML IV SCH (21:00)
[2017-09-22] MEDS: PRAVASTATIN SOD 40 MG TAB PO SCH (21:46)
[2017-09-23] VITALS (7 sets, daily range): BP systolic 135–193; BP diastolic 71–84; PULSE 74–92; RESP 20; TEMP 98–102.3; O2SAT 94–97
[2017-09-23] MEDS: SODIUM BICARBONATE 8.4% INJ 75 MEQ in SODIUM CHLOR 0.45% 1000 ML INJ 1,000 ML IV SCH (03:43)
[2017-09-23] MEDS: ACETAMINOPHEN 325 MG TAB PO PRN (03:44)
[2017-09-23] MEDS ORDERED: hydrALAZINE HCL 25 MG TAB PO PRN (04:45)
[2017-09-23] MEDS: HEPARIN SODIUM - SQ 10,000 UNITS/ML VIAL SQ SCH ×3 (05:15→21:40)
[2017-09-23] MEDS: GEMFIBROZIL 600 MG TAB PO SCH ×2 (05:15→17:25)
--- NOTE | 2017-09-23 08:14 | HHI.PR ---
Subjective Remarks bp up Objective Vital Signs Date Time Temp Pulse Resp B/P (MAP) Pulse Ox O2 Delivery O2 Flow Rate FiO2 09/23/17 04:00 Room Air 09/23/17 04:00 98.4 74 20 135/77 (96) 96 09/23/17 00:04 98.2 80 20 183/82 (115) 97 09/23/17 00:04 Room Air 09/22/17 20:00 98.5 80 16 191/77 (115) 97 09/22/17 20:00 85 09/22/17 20:00 Room Air 09/22/17 16:00 97.7 72 20 173/80 (111) 98 09/22/17 16:00 Room Air 09/22/17 12:00 Room Air 09/22/17 12:00 98.2 75 20 184/74 (110) 97 I/O 09/22/17 09/22/17 09/22/17 09/23/17 09/23/17 09/23/17 07:00 15:00 23:00 07:00 15:00 23:00 Intake Total 1897 ml 720 ml 360 ml Output Total 1400 ml 1075 ml 1350 ml Balance 497 ml -355 ml -990 ml Intake Oral 600 ml 720 ml 360 ml IV Total 1297 ml Output Urine Total 1400 ml 1075 ml 1350 ml # Bowel Movements 3 3 4 Result Diagram: 09/22/1739 09/22/17 0639 Objective Remarks looks well nl speech walking well she tells me co pain kidney Assessment and Plan Assessment and Plan imp abg 7.28 pH ? from sepsis defer to med team on acidosis probably contributed to ms change i dw cards to do chanell mra echo eeg pend esr >140 probably some endocarditis i do not at this point think meningitis or encephalitis clinically ID on case dep on course about asa or sq heparin at this point much better neuro tejada ------ 09/21/17 back to nl neuro tejada mra neck echo and eeg nl mra cow poor flow r mca and some dec branch flow could have been mult small emboli will recheck mri creat too high for cta for chanell i restarted asa and get oob keep well hydrated and bp up 09/22/17 sr nl neuro on asa willinc to 325 i started sq heparin today repeat mri no new cva mra a lot of arterial dz labs neg has pfo but at this stage since not on asa at home would just rx with asa check ble for and dvt could of course had developed small pelvic clot with pyelo will have ct reviewed for any of that with rads would not close pfo now or do coumadin for now esr inc but septic and check fu claudia la rf 09/23/17 doing well rf neg i dw rads no evidence clot on ct and us ble neg cards wants to anticoag i could go with asa but am ok with anticoag per cards so med team shold start this if felt ok with kidney and dc asa when inr>1.9 oob ok to rx bp to 120/70 not a large cva ok for pain meds for kidneuy pain renal fx getting better she could ? jonas soon Sean Joiner MD Sep 23, 2017 08:14
[2017-09-23 08:32] LABS: AUTOMATED NEUTROPHIL # 14.2 TH/MM3 (1.8-7.7); BASOPHIL # 0.1 TH/MM3 (0-0.2); BASOPHIL % 0.8 % (0.0-2.0); EOSINOPHIL # 0.3 TH/MM3 (0-0.4); EOSINOPHIL % 1.7 % (0.0-4.0); LYMPH % 14.1 % (9.0-44.0); LYMPHOCYTE # 2.6 TH/MM3 (1.0-4.8); MEAN CORPUSCULAR HEMOGLOBIN 29.2 PG (27.0-34.0); MEAN CORPUSCULAR HGB CONC 33.2 % (32.0-36.0); MONO % 5.7 % (0.0-8.0); NEUT % 77.7 % (16.0-70.0); PLATELET COUNT 475 TH/MM3 (150-450); RED BLOOD COUNT 2.95 MIL/MM3 (4.00-5.30); RED CELL DISTRIBUTION WIDTH 14.5 % (11.6-17.2); WHITE BLOOD COUNT 18.3 TH/MM3 (4.0-11.0)
[2017-09-23 08:34] LABS: HEMO FLAGS AUTO DIFF
[2017-09-23 08:51] LABS: BICARBONATE 22.1 MEQ/L (21.0-32.0); POTASSIUM 3.1 MEQ/L (3.5-5.1)
[2017-09-23] MEDS: FLUCONAZOLE 100 MG TAB PO SCH (09:07)
[2017-09-23] MEDS: ASPIRIN 325 MG TAB PO SCH (09:07)
[2017-09-23] MEDS: INSULIN ASPART SUPPLEMENTAL SCALE SQ SCH ×4 (09:08→21:40)
[2017-09-23] MEDS: SODIUM CHLORIDE 0.9% FLUSH 10 ML FLUSH IV FLUSH SCH ×2 (09:09→21:45)
[2017-09-23 09:35] LABS: BANDS 5 % (0-6); EOSINOPHILS 1 % (0-4); NEUTROPHIL # MANUAL DIFF 14.3 TH/MM3 (1.8-7.7); POLYS (SEG NEUTROPHILS) 73 % (16-70); WBC DIFF SAMPLE 100
[2017-09-23 09:37] LABS: PLATELET ESTIMATE SMEAR HIGH (NORMAL); PLATELET MORPHOLOGY NORMAL (NORMAL)
[2017-09-23 09:38] LABS: SCAN/DIFF FINAL DIFF MANUAL
[2017-09-23] MEDS: LACTOBACILLUS ACIDOPHILUS TAB PO SCH ×2 (10:15→21:40)
--- NOTE | 2017-09-23 10:59 | HHI.FPPN ---
Subjective Remarks No events overnight. Remains afebrile. White count starting to increase. Continuing right flank pain and left flank pain as well. No nausea or vomiting. Has some loose stools but not excessive or foul smelling. No calf swelling or tenderness. No shortness of breath, coughing, or sputum production. Awake, alert , looking much better than admission. (Eric Bertrand MD R3) Objective Vitals Vital Signs Date Time Temp Pulse Resp B/P (MAP) Pulse Ox O2 Delivery O2 Flow Rate FiO2 09/23/17 08:00 99.1 78 20 176/77 (110) 95 09/23/17 04:00 Room Air 09/23/17 04:00 98.4 74 20 135/77 (96) 96 09/23/17 00:04 98.2 80 20 183/82 (115) 97 09/23/17 00:04 Room Air 09/22/17 20:00 98.5 80 16 191/77 (115) 97 09/22/17 20:00 85 09/22/17 20:00 Room Air 09/22/17 16:00 97.7 72 20 173/80 (111) 98 09/22/17 16:00 Room Air 09/22/17 12:00 Room Air 09/22/17 12:00 98.2 75 20 184/74 (110) 97 I/O 09/22/17 09/22/17 09/22/17 09/23/17 09/23/17 09/23/17 07:00 15:00 23:00 07:00 15:00 23:00 Intake Total 1897 ml 720 ml 360 ml Output Total 1400 ml 1075 ml 1350 ml Balance 497 ml -355 ml -990 ml Intake Oral 600 ml 720 ml 360 ml IV Total 1297 ml Output Urine Total 1400 ml 1075 ml 1350 ml # Bowel Movements 3 3 4 (Eric Bertrand MD R3) Result Diagram: 09/23/1773709/23/17737 Objective Remarks GENERAL: Sitting up in bed, smiling SKIN: Very small stage 2 sacral ulcer. HEAD: NC/AT EYES: No conjunctival injection or drainage. ENT: No nasal discharge, no oral secretions NECK: Supple, no lymphadenopathy. No JVD. CARDIOVASCULAR: RRR, faint systolic murmur, no rubs or gallops, pulses symmetrical. RESPIRATORY: CTAB. No crackles or wheezes. GASTROINTESTINAL: Abdomen soft, non-distended, non-tender to palpation. GENITOURINARY: Mild CVA tenderness on right, improved MUSCULOSKELETAL: Extremities without clubbing, cyanosis, or edema. NEUROLOGICAL: Awake and alert. 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 Now with ureteral stent, improving with conservative management. Urology and infectious disease are on board. Also with initial delirium and finding of small acute vs. subacute infarction of left cortex of cerebellum. Neurology on board. Discharge Planning Pending resolution of leukocytosis, results of cultures, stable clinically. Will be discharged to [facility], in discussion with Kristin, risk specialist. (Eric Bertrand MD R3) Attending Attestation A detailed discussion regarding patients diagnosis was held with Dr Bertrand,Seen and examied EMR reviewed, Discussed risks of different anticoagulation Agree with contents of note and dianosis, See Orders. (French Salter MD) Problem List: (1) Emphysematous pyelonephritis ICD Codes: N12 - Tubulo-interstitial nephritis, not specified as acute or chronic Status: Acute Plan: White count back to normal, afebrile overnight. Emphysematous pyelonephritis involving the right kidney, repeat CT showing continued severe pyelonephritis but no hydronephrosis. Ureteral stent in place. UA with moderate blood, positive nitrites, large leukocyte esterase, few bacteria. Urology on board, she is status post ureteral stent on right. Infectious disease also on board, helping to manage antibiotics. Blood culture positive for E.coli, urine with e.coli, colony counts improving. - Cefepime at admission changed to Zosyn, switched to Ceftriaxone on 09/19. Changed to meropenem on 09/20. Changed to Ceftriaxone 09/22. - Per urology, continue with conservative management. Nephrostomy tube not required at this time. - Tylenol 650 mg every 6 hours PRN for flank pain. - Hold opiate medications due to delirium. - Zofran 4 mg IV every 8 hours as needed for nausea and vomiting - Control diabetes as below - Follow repeat blood and urine cultures. (2) Acute ischemic stroke ICD Codes: I63.9 - Cerebral infarction, unspecified Status: Acute Plan: MRI brain ordered 09/19 for altered mental status, some uncoordination with walking. Small acute versus subacute infarction of the left cerebellar cortex about 5 mm. Discussed finding with radiologist, Dr. Coley. He suggests that the infarction is anywhere from hours to several days old. He suggests that it does not correlate with her symptoms and is likely to not have any neurological effects given its location and size. He suggests it likely came from an end artery as opposed to a major vessel. He suggests the possibility of a small septic emboli as the cause. Head MRA showing severe multi-vascular disease with occlusions and stenoses in multiple territories, suggesting possible embolic events. However, repeat brain MRI is the same as initial MRI, so not correlated with the findings on the MRA. TERRELL showed a PFO, but no vegetations. Carotid doppler suggesting 50-60% stenosis of carotid arteries bilaterally. EEG with generalized slowing, likely encephalopathy. LE ultrasound to check for DVT (due to PFO) is negative. - Aspirin increased to 325 mg daily - On statin, continue gemfibrozil from home - Cardiac monitoring - Has bilateral SCD's and prophylactic heparin. - Restarted amlodipine, holding lisinopril due to DELLA. - Neurology suggests not closing PFO. - Had long discussion with daughter and patient about anticoagulation given the PFO and possible embolization event. Daughter and patient both would like the treatment to consist only of aspirin for now. - Consulted neurology, cardiology (signed off), infectious disease, appreciate recommendations. (3) Stage 2 skin ulcer of sacral region ICD Codes: L89.152 - Pressure ulcer of sacral region, stage 2 Status: Acute Plan: Very small stage 2 ulcer in sacral region. - Occlusive hydrocolloid dressing daily - Turn every 2 hours - Up in chair as much as possible - Monitor for progression (4) Loose stools ICD Codes: R19.5 - Other fecal abnormalities Status: Acute Plan: Loose stools with new leukocytosis - Check for c.diff - Start Lactinex (5) Elevated troponin ICD Codes: R74.8 - Abnormal levels of other serum enzymes Status: Acute Plan: Elevated troponin, but remained relatively flat. Cardiology consulted, suggesting likely demand mediated in the context of kidney disease. - May consider Lexiscan depending on recovery. (6) Delirium due to another medical condition ICD Codes: F05 - Delirium due to known physiological condition Status: Resolved Plan: Delirium improved, likely secondary to illness. - Blinds open in day, closed at night - Minimal distractions at night - Limit sedating medications, oxycodone 5 mg q8hrs PRN for pain, can hold if needed - Avoid restraints as much as possible - Family by bedside as much as possible - Frequent re-orientation. - Treat underlying illness (7) Acute kidney injury ICD Codes: N17.9 - Acute kidney failure, unspecified Status: Acute Plan: Creatinine of 2.88 on admission increased from baseline of about 0.5, continuing to trend down. - Monitor renal function - Holding JEANNIE inhibitor - Avoid nephrotoxic agents, renally dose medications - Encourage good hydration - Nephrology on board (8) Diabetes mellitus ICD Codes: E11.9 - Type 2 diabetes mellitus without complications Status: Chronic Plan: Very poor control at home, glucose running 200s to 300s per patient, greater than 500 on admission probably from sepsis. A1C 12.2. Has not been taking her oral medications at home and not on insulin. Poor understanding of diabetes. Only on glipizide at home. - Low dose sliding scale insulin. - Starting Levemir 10 units at night. - Glucose checks before meals and at bedtime - Diabetic diet if she passes swallow eval - Consulted public health educator - Consulted case management to assess possible reasons for poor compliance and attendance at office visits - Likely will need insulin at home (9) Hypertension Status: Chronic Plan: History of hypertension - Continued amlodipine - Holding lisinopril for DELLA (10) Dyslipidemia ICD Codes: E78.5 - Dyslipidemia Status: Chronic Plan: Continue home gemfibrozil Started Pravastatin 40 mg daily (11) FEN/PPX Plan: Fluids: Change to PO fluids, DELLA resolving. Electrolytes: Monitor and replace as needed, monitor renal function Nutrition: Diabetic diet DVT: Heparin 5000 units subcutaneous 3 times a day currently on hold, bilateral SCD's CODE STATUS: Full code (Eric Bertrand MD R3) Eric Bertrand MD R3 Sep 23, 2017 10:59 French Salter MD Sep 23, 2017 15:28
--- NOTE | 2017-09-23 11:50 | HHI.NPPN ---
Subjective History of Present Illness 67-year-old female with past medical history of hypertension, diabetes mellitus, hyperlipidemia who came to the hospital with complaint of right-sided abdominal pain and dysuria. I was called to see the patient because of elevated BUN and creatinine. The patient had a creatinine of 2.8 on admission. Previously she had creatinine of 0.4, and this was in 2013. Additional Remarks Patient is alert, no SOB, getting PT and started walking. Objective Data Data Vital Signs Date Time Temp Pulse Resp B/P (MAP) Pulse Ox O2 Delivery O2 Flow Rate FiO2 09/23/17 08:00 99.1 78 20 176/77 (110) 95 09/23/17 04:00 Room Air 09/23/17 04:00 98.4 74 20 135/77 (96) 96 09/23/17 00:04 98.2 80 20 183/82 (115) 97 09/23/17 00:04 Room Air 09/22/17 20:00 98.5 80 16 191/77 (115) 97 09/22/17 20:00 85 09/22/17 20:00 Room Air 09/22/17 16:00 97.7 72 20 173/80 (111) 98 09/22/17 16:00 Room Air 09/22/17 12:00 Room Air 09/22/17 12:00 98.2 75 20 184/74 (110) 97 -: 09/23/17 0738 09/23/17 0738 Microbiology 09/23/17 Aerobic Blood Culture, Received Pending 09/23/17 Anaerobic Blood Culture, Received Pending 09/22/17 Aerobic Blood Culture - Preliminary, Resulted NO GROWTH IN 1 DAY 09/22/17 Anaerobic Blood Culture - Preliminary, Resulted NO GROWTH IN 1 DAY 09/22/17 Urine Culture - Preliminary, Resulted NO GROWTH IN 24 HOURS. Physical Exam General Appearance: No Acute Distress, Comfortable Eyes Eye Exam: Pupils Equal Throat Throat Exam: Oral Mucosa Hasty & Moist Neck Neck Exam: Neck Supple Pulmonary Resp Exam: Breath Sounds Equal, Rhonchi, Decreased Bases, Diminished Breath Sounds Cardiology CV Exam: Regular, Normal Sinus Rhythm Gastrointestinal/Abdomen GI Exam: Soft, Non-Tender, Bowel Sounds Present Extremeties Extremities Exam: Trace Edema Neurologic Neuro Exam: Alert, Awake Assessment/Plan Assessment Summary: DELLA/Acute Renal Failure Problem List: (1) Essential hypertension ICD Codes: I10 - Essential hypertension Status: Acute (2) Leukocytosis ICD Codes: D72.829 - Leukocytosis Status: Acute (3) Pyelonephritis ICD Codes: N12 - Pyelonephritis Status: Acute (4) Sepsis ICD Codes: A41.9 - Sepsis, unspecified organism Status: Acute (5) Acute kidney injury ICD Codes: N17.9 - Acute kidney failure, unspecified Status: Acute Plan Patient has Acute kidney injury. Differential will be ATN from sepsis/UTI/Pyelonephritis. Also an element of obstructive uropathy. Post cystoscopy and stent placement. Non oliguric. Creatinine is slightly better. Repeat culture still positive. Has E. Coli sepsis. Continue ceftriaxone, ID is following. Cardiology consult noted. MRA seen, Creatinine is better. Has metabolic acidosis, Lactic acid is normal. Creatinine continue to improve. Hco3 is better, IVF is stopped. BP is still elevated, on Amlodipine 10 mg daily. I will add Labetalol 100 mg BID. I will sign off from Nephrology, as Creatinine is normalized. Problem Qualifiers (1) Leukocytosis: Qualified Codes: D72.825 - Bandemia (2) Sepsis: Qualified Codes: A41.9 - Sepsis, unspecified organism Pita Huitron MD Sep 23, 2017 11:50
[2017-09-23] MEDS ORDERED: POTASSIUM CHLORIDE 10 MEQ CONTROLLED RELEASE TAB PO ONE (12:00)
[2017-09-23] MEDS: ACETAMINOPHEN 325 MG TAB PO SCH ×2 (12:00→15:47)
--- NOTE | 2017-09-23 13:20 | HHI.PR ---
Subjective Patient symptoms today flank pain improved. denies fevers, chills. Objective Vital Signs Vital Signs Date Time Temp Pulse Resp B/P (MAP) Pulse Ox O2 Delivery O2 Flow Rate FiO2 09/23/17 08:00 99.1 78 20 176/77 (110) 95 09/23/17 04:00 Room Air 09/23/17 04:00 98.4 74 20 135/77 (96) 96 09/23/17 00:04 98.2 80 20 183/82 (115) 97 09/23/17 00:04 Room Air 09/22/17 20:00 98.5 80 16 191/77 (115) 97 09/22/17 20:00 85 09/22/17 20:00 Room Air 09/22/17 16:00 97.7 72 20 173/80 (111) 98 09/22/17 16:00 Room Air Intake & Output 09/23/17 09/23/17 07:00 19:00 Intake Total 360 ml Output Total 1350 ml Balance -990 ml Intake Oral 360 ml Output Urine Total 1350 ml # Bowel Movements 4 Result Diagram: 09/23/1773709/23/1738 Objective Remarks NAD. A/O x 3 abd soft, distended. jeffers draining yellow urine Medications and IVs Current Medications Medications (Trade) Dose Ordered Sig/Alisha Route Start Time Stop Time Status Last Admin (NS Flush) 2 ml UNSCH PRN IV FLUSH 09/16/17 19:30 (NS Flush) 2 ml BID IV FLUSH 09/16/17 21:00 09/23/17 09:09 (Norvasc) 10 mg DAILY PO 09/17/17 09:00 Future hold 09/23/17 09:07 (Lopid) 300 mg BIDAC PO 09/17/17 07:00 09/23/17 05:15 (Prinivil) 40 mg DAILY PO 09/17/17 09:00 Future Hold 09/17/17 09:56 (Narcan Inj) 0.4 mg UNSCH X1 PRN IV PUSH 09/16/17 20:15 10/16/17 20:14 (Zofran Inj) 4 mg Q8HR PRN IV PUSH 09/16/17 20:15 (Levemir Inj) 10 units Q12HR SQ 09/16/17 21:00 Future Hold 09/17/17 20:40 (NovoLOG INJ) 8 units TIDAC SQ 09/17/17 08:00 Future Hold 09/17/17 17:34 (D50w (Vial) Inj) 50 ml UNSCH PRN IV PUSH 09/16/17 20:15 (Glucagon Inj) 1 mg UNSCH PRN OTHER 09/16/17 20:15 (NovoLOG SUPPLEMENTAL SCALE) 1 ACHS SLIDING SCALE SQ 09/19/17 12:00 09/23/17 12:45 (Pravachol) 40 mg HS PO 09/19/17 21:00 09/22/17 21:46 Lactated Ringer's 1,000 ml @ 30 mls/hr Q24H PRN IV 09/21/17 03:15 09/24/17 03:14 Sodium Chloride 500 ml @ 30 mls/hr [id number] PRN IV 09/21/17 03:15 09/24/17 03:14 (Lopressor) 25 mg MANAGER LANGUAGE PRN PO 09/21/17 03:15 09/24/17 03:14 (Betadine 5% Antisepsis Kit) 1 applic MANAGER LANGUAGE PRN EACH NARE 09/21/17 03:15 09/24/17 03:14 (Chlorhexidine 2% Cloth) 3 pack MANAGER LANGUAGE PRN TOPICAL 09/21/17 03:15 09/24/17 03:14 Miscellaneous Information 1 UNSCH PRN XX 09/21/17 15:00 09/24/17 14:59 (Heparin Inj) 5,000 units Q8HR SQ 09/22/17 14:00 Future hold 09/23/17 12:44 (Aspirin) 325 mg DAILY PO 09/22/17 09:15 09/23/17 09:07 Ceftriaxone Sodium 2000 mg/ Sodium Chloride 100 ml @ 200 mls/hr Q24H IV 09/22/17 16:00 09/22/17 16:03 (Diflucan) 100 mg DAILY PO 09/22/17 15:00 09/29/17 14:59 09/23/17 09:07 (Apresoline) 25 mg Q8HR PRN PO 09/23/17 04:45 Future Hold (Levemir Inj) 10 units HS SQ 09/23/17 21:00 (Lactinex) 1 tab Q12HR PO 09/23/17 10:15 (Roxicodone) 5 mg Q8H PRN PO 09/23/17 12:00 09/23/17 12:46 (Tylenol) 650 mg Q6HR PO 09/23/17 12:00 Assessment and Plan Problem List: (1) Emphysematous pyelonephritis ICD Code: 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 ?Antibiotics ?Abscess formation. If WBC continues to rise, would repeat CT. -Would only perform a Right Nephrectomy as a LAST RESORT if her condition warrants it as it carries both a high complication and mortality rate when done in the setting of Emphysematous Pyelonephritis. -d/c Shahram Garcia MD Sep 23, 2017 13:20
[2017-09-23] MEDS: cefTRIAXone INJ 2,000 MG in SODIUM CHLORIDE 0.9% INJ 100 ML IV SCH (17:26)
[2017-09-23] MEDS: PRAVASTATIN SOD 40 MG TAB PO SCH (21:39)
[2017-09-23] MEDS: LABETALOL HCL 100 MG TAB PO SCH (21:40)
[2017-09-23] MEDS: INSULIN DETEMIR 100 UNITS/ML VIAL SQ SCH (21:40)
[2017-09-24] VITALS: BP 140/63; PULSE 70; RESP 20; TEMP 99.6; O2SAT 95
[2017-09-24 04:00] VITALS: BP 150/55; PULSE 80; RESP 20; TEMP 99.1; O2SAT 92
[2017-09-24] MEDS: ACETAMINOPHEN 325 MG TAB PO SCH ×5 (06:00→23:10)
[2017-09-24] MEDS: HEPARIN SODIUM - SQ 10,000 UNITS/ML VIAL SQ SCH ×3 (06:07→22:25)
[2017-09-24 08:00] VITALS: BP 179/77; PULSE 80; PULSE 81; RESP 18; TEMP 99.3; O2SAT 94
[2017-09-24] MEDS: ASPIRIN 325 MG TAB PO SCH (08:23)
[2017-09-24] MEDS: GEMFIBROZIL 600 MG TAB PO SCH ×2 (08:24→17:33)
[2017-09-24] MEDS: LACTOBACILLUS ACIDOPHILUS TAB PO SCH ×2 (08:24→22:24)
[2017-09-24] MEDS: FLUCONAZOLE 100 MG TAB PO SCH (08:24)
[2017-09-24] MEDS: LABETALOL HCL 100 MG TAB PO SCH ×2 (08:24→22:24)
[2017-09-24] MEDS: INSULIN ASPART SUPPLEMENTAL SCALE SQ SCH ×4 (08:25→22:26)
--- NOTE | 2017-09-24 09:20 | HHI.FPPN ---
Subjective Remarks Patient febrile up to 102.3 overnight with elevation in blood pressure to 193/ 84. Patient otherwise feeling well. She states that she is getting stronger every day. She continues to have right flank pain and occasional chest tightness at night. She denies any shortness of breath, chills, or malaise. Objective Vitals Vital Signs Date Time Temp Pulse Resp B/P (MAP) Pulse Ox O2 Delivery O2 Flow Rate FiO2 09/24/17 04:00 Room Air 09/24/17 04:00 99.1 80 20 150/55 (86) 92 09/24/17 00:00 Room Air 09/24/17 00:00 99.6 70 20 140/63 (88) 95 09/23/17 20:00 Room Air 09/23/17 20:00 98.0 84 20 166/71 (102) 95 09/23/17 16:00 102.3 88 20 193/84 (120) 94 09/23/17 14:00 20 09/23/17 13:00 99.3 76 20 174/76 (108) 96 I/O 09/23/17 09/23/17 09/23/17 09/24/17 09/24/17 09/24/17 07:00 15:00 23:00 07:00 15:00 23:00 Intake Total 360 ml 2500 ml 460 ml Output Total 1350 ml 1300 ml 925 ml Balance -990 ml 1200 ml -465 ml Intake Oral 360 ml 1500 ml 460 ml IV Total 1000 ml Output Urine Total 1350 ml 1300 ml 925 ml # Bowel Movements 4 1 Result Diagram: 09/23/17 0738 09/23/17 0738 Imaging Last Impressions Lower Extremity Ultrasound 09/22/17 0000 Signed Impressions: Service Date/Time: August 08:57 - CONCLUSION: The study is negative for deep venous thrombosis bilateral lower extremity. Corey Coley MD Brain MRI 09/21/17 0000 Signed Impressions: Service Date/Time: Thursday, September 21, 2017 16:48 - CONCLUSION: Stable size and appearance to the small area of restricted diffusion in the left cerebellum. No new findings. Corey Coley MD Neck Magnetic Resonance Angiography 09/20/17 1736 Signed Impressions: Service Date/Time: Wednesday, September 20, 2017 08:19 - CONCLUSION: 1. Technically limited examination with nonvisualization of the arch and distal aspect of the vertebral/internal. 2. Midportion of the vertebrals and both carotid bifurcations appear to be patent. 3. If there is a clinical concern for significant cervical vascular disease, CTA of the neck vasculature may be considered for further characterization. Rony Sarabia MD Head Magnetic Resonance Angiography 09/20/17 1736 Signed Impressions: Service Date/Time: Wednesday, September 20, 2017 08:19 - CONCLUSION: 1. MRI suggests severe multi-vascular territory disease with short segment occlusion/high-grade stenosis in the distal left internal carotid, the left M1 segment and occlusion of the right MCA territory near its origin. There also appear to be segmental stenoses in the posterior cerebral arteries as well. Findings are suggestive of a multi-territory embolic event. 2. However, findings are discordant from the most recent MRI of the brain performed one day earlier which only showed minimal diffusion restriction in the left PICA distribution. Unless the patient has had a recent cerebrovascular event in the last 24 hours , I would suggest CTA of the intracranial circulation for further characterization. Rony Sarabia MD Abdomen/Pelvis CT 09/20/17 0600 Signed Impressions: Service Date/Time: Wednesday, September 20, 2017 09:03 - CONCLUSION: 1. 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 2. Interval placement of a right-sided double-J stent which is in good position. No hydronephrosis. 3. No abscess. 4. New tiny bilateral pleural effusions. Corey Millan Jr., MD Carotid Artery Ultrasound 09/19/17 0000 Signed Impressions: Service Date/Time: Tuesday, September 19, 2017 16:45 - CONCLUSION: Moderate disease in the carotid bifurcations bilaterally with subjective measures suggesting stenosis potentially on the order of 50-60%% Maycol Merritt MD Objective Remarks GENERAL: Sitting up in bed, smiling SKIN: Very small stage 2 sacral ulcer. HEAD: NC/AT EYES: No conjunctival injection or drainage. ENT: No nasal discharge, no oral secretions NECK: Supple, no lymphadenopathy. No JVD. CARDIOVASCULAR: RRR, faint systolic murmur, no rubs or gallops, pulses symmetrical. RESPIRATORY: CTAB. No crackles or wheezes. GASTROINTESTINAL: Abdomen soft, non-distended, diffusely tender to palpation. GENITOURINARY: Mild CVA tenderness on right MUSCULOSKELETAL: Extremities without clubbing, cyanosis, or edema. NEUROLOGICAL: Awake and alert. 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 Now with ureteral stent, improving with conservative management. Urology and infectious disease are on board. Also with initial delirium and finding of small acute vs. subacute infarction of left cortex of cerebellum. Neurology on board. Discharge Planning Pending resolution of leukocytosis, results of cultures, stable clinically. Will be discharged to [facility], in discussion with Kristin hospital admissions officer. Problem List: (1) Emphysematous pyelonephritis ICD Codes: N12 - Tubulo-interstitial nephritis, not specified as acute or chronic Status: Acute Plan: White count trending up Febrile to 102.3 overnight. Emphysematous pyelonephritis involving the right kidney, repeat CT showing continued severe pyelonephritis but no hydronephrosis. Ureteral stent in place. UA with moderate blood, positive nitrites, large leukocyte esterase, few bacteria. Urology on board, she is status post ureteral stent on right. Infectious disease also on board, helping to manage antibiotics. Blood culture positive for E.coli, urine with e.coli, colony counts improving. 09/22 urine culture with no growth 09/22 blood cultures no growth in 1 day - Cefepime at admission changed to Zosyn, switched to Ceftriaxone on 09/19. Changed to meropenem on 09/20. Changed to Ceftriaxone 09/22. - Continue Rocephin 2g IV Q24H - Per urology, continue with conservative management. - Will obtain repeat Abd/pelvis CT without contrast today to evaluate for possible abscess formation in setting of increasing leukocytosis and fever - Tylenol 650 mg every 6 hours PRN for flank pain. - Zofran 4 mg IV every 8 hours as needed for nausea and vomiting - Follow repeat blood and urine cultures. (2) Acute ischemic stroke ICD Codes: I63.9 - Cerebral infarction, unspecified Status: Acute Plan: MRI brain ordered 09/19 for altered mental status, some uncoordination with walking. Small acute versus subacute infarction of the left cerebellar cortex about 5 mm. Discussed finding with radiologist, Dr. Coley. He suggests that the infarction is anywhere from hours to several days old. He suggests that it does not correlate with her symptoms and is likely to not have any neurological effects given its location and size, likely came from an end artery as opposed to a major vessel. He suggests the possibility of a small septic emboli as the cause. Head MRA showing severe multi-vascular disease with occlusions and stenoses in multiple territories, suggesting possible embolic events. However, repeat brain MRI is the same as initial MRI, so not correlated with the findings on the MRA. TERRELL showed a PFO, but no vegetations. Carotid Doppler suggesting 50-60% stenosis of carotid arteries bilaterally. EEG with generalized slowing, likely encephalopathy. LE ultrasound to check for DVT (due to PFO) is negative. - Aspirin increased to 325 mg daily - On statin, continue gemfibrozil from home - Cardiac monitoring - Has bilateral SCD's and prophylactic heparin. - Restarted amlodipine, will resume lisinopril initially held for DELLA. - Neurology suggests not closing PFO. - Had long discussion with daughter and patient about anticoagulation given the PFO and possible embolization event. Daughter and patient both would like the treatment to consist only of aspirin for now. - Consulted neurology, cardiology (signed off), infectious disease, appreciate recommendations. (3) Stage 2 skin ulcer of sacral region ICD Codes: L89.152 - Pressure ulcer of sacral region, stage 2 Status: Chronic Plan: Very small stage 2 ulcer in sacral region. - Occlusive hydrocolloid dressing daily - Turn every 2 hours - Up in chair as much as possible - Monitor for progression (4) Loose stools ICD Codes: R19.5 - Other fecal abnormalities Status: Acute Plan: Loose stools with new leukocytosis - Check for c.diff - Start Lactinex (5) Elevated troponin ICD Codes: R74.8 - Abnormal levels of other serum enzymes Status: Acute Plan: Elevated troponin, but remained relatively flat. Cardiology consulted, suggesting likely demand mediated in the context of kidney disease. - May consider Lexiscan depending on recovery. (6) Diabetes mellitus ICD Codes: E11.9 - Type 2 diabetes mellitus without complications Status: Chronic Plan: Very poor control at home, glucose running 200s to 300s per patient, greater than 500 on admission probably from sepsis. A1C 12.2. Has not been taking her oral medications at home and not on insulin. Poor understanding of diabetes. Only on glipizide at home. - Low dose sliding scale insulin. - Levemir 10 units at night. - Glucose checks before meals and at bedtime - Diabetic diet - Consulted trouble shooting mechanic - Consulted case management to assess possible reasons for poor compliance and attendance at office visits - Likely will need insulin at home (7) Hypertension Status: Chronic Plan: History of hypertension - Continued amlodipine and lisinopril (8) Dyslipidemia ICD Codes: E78.5 - Dyslipidemia Status: Chronic Plan: Continue home gemfibrozil Started Pravastatin 40 mg daily (9) FEN/PPX Plan: Fluids: PO Electrolytes: Monitor and replace as needed, monitor renal function Nutrition: Diabetic diet DVT: Heparin 5000 units subcutaneous 3 times a day, bilateral SCD's CODE STATUS: Full code Merari Torres MD, R3 Sep 24, 2017 09:19
[2017-09-24 11:23] LABS: HEMATOCRIT 33.6 % (35.0-46.0); MEAN CELL VOLUME 88.9 FL (80.0-100.0); MEAN CORPUSCULAR HEMOGLOBIN 29.5 PG (27.0-34.0); MEAN CORPUSCULAR HGB CONC 33.2 % (32.0-36.0); PLATELET COUNT 291 TH/MM3 (150-450); RED BLOOD COUNT 3.77 MIL/MM3 (4.00-5.30); RED CELL DISTRIBUTION WIDTH 14.7 % (11.6-17.2); REVIEW FLAG FINAL; WHITE BLOOD COUNT 21.6 TH/MM3 (4.0-11.0)
[2017-09-24 11:25] LABS: BICARBONATE 22.1 MEQ/L (21.0-32.0)
[2017-09-24 12:00] VITALS: BP 162/70; PULSE 77; RESP 18; TEMP 99.4; O2SAT 93
--- NOTE | 2017-09-24 12:43 | RADRPT ---
EXAM DATE/TIME: 09/24/2017 11:24 [facility] COMPARISON: CT ABDOMEN & PELVIS W/O CONTRAST, September 20, 2017, 9:03. INDICATIONS : Abdomen pain; fever, pyelonephritis. ORAL CONTRAST: No oral contrast ingested. RADIATION DOSE: 14.01 CTDIvol (mGy) MEDICAL HISTORY : Cerebrovascular disease. SURGICAL HISTORY : Ureteral stent. ENCOUNTER: Initial ACUITY: 1 day PAIN SCALE: 7/10 LOCATION: Bilateral abdomen TECHNIQUE: Volumetric scanning of the abdomen and pelvis was performed. Using automated exposure control and ad justment of the mA and/or kV according to patient size, radiation dose was kept as low as reasonably achievable to obtain optimal diagnostic quality images. DICOM format image data is available electro nically for review and comparison. FINDINGS: Severe emphysematous pyelonephritis is again noted on the right. There has been interval increase in the Perinephric fluid and air collection surrounding the right kidney compared to 09/20/2017 consist ent with perinephric abscess. Internal ureteral stent is noted on the right. There is no hydronephr osis on the right. Small bilateral pleural effusions with adjacent compressive atelectasis are noted . The uterus is prominent. CONCLUSION: 1. Persistent severe emphysematous pyelonephritis on the right with increase in the size of the collin nephric abscess surrounding the right kidney. 2. Small bilateral pleural effusions with adjacent compressive atelectasis. 3. Enlarged uterus. Daniel Portillo MD on September 24, 2017 at 12:25 Board Certified Radiologist. This report was verified electronically.
[2017-09-24 16:00] VITALS: BP 159/72; PULSE 73; RESP 19; TEMP 98.3; O2SAT 91
[2017-09-24] MEDS: cefTRIAXone INJ 2,000 MG in SODIUM CHLORIDE 0.9% INJ 100 ML IV SCH (17:32)
[2017-09-24 20:00] VITALS: BP 149/70; PULSE 68; PULSE 73; RESP 16; TEMP 99.1; O2SAT 93
[2017-09-24] MEDS: SODIUM CHLORIDE 0.9% FLUSH 10 ML FLUSH IV FLUSH SCH (22:23)
[2017-09-24] MEDS: PRAVASTATIN SOD 40 MG TAB PO SCH (22:24)
[2017-09-24] MEDS: INSULIN DETEMIR 100 UNITS/ML VIAL SQ SCH (22:27)
[2017-09-24] MEDS ORDERED: cefTRIAXone INJ 2,000 MG in SODIUM CHLORIDE 0.9% INJ 100 ML IV ONE (23:45)
[2017-09-25] VITALS: BP 118/57; PULSE 70; RESP 16; TEMP 99.6; O2SAT 93
[2017-09-25 04:00] VITALS: BP 181/79; PULSE 76; RESP 16; TEMP 99; O2SAT 93
[2017-09-25] MEDS ORDERED: ENALAPRILAT 1.25 MG/ML VIAL IV PUSH PRN (05:45)
[2017-09-25] MEDS: GEMFIBROZIL 600 MG TAB PO SCH ×2 (06:35→17:30)
[2017-09-25] MEDS: ACETAMINOPHEN 325 MG TAB PO SCH ×4 (06:35→22:52)
[2017-09-25] MEDS: HEPARIN SODIUM - SQ 10,000 UNITS/ML VIAL SQ SCH ×2 (06:36→12:54)
[2017-09-25 08:00] VITALS: BP 158/74; PULSE 78; PULSE 81; RESP 20; TEMP 99.4; O2SAT 92
[2017-09-25] MEDS: INSULIN ASPART SUPPLEMENTAL SCALE SQ SCH ×4 (08:00→22:43)
[2017-09-25] MEDS: LISINOPRIL 20 MG TAB PO SCH (09:34)
[2017-09-25] MEDS: ASPIRIN 325 MG TAB PO SCH (09:34)
[2017-09-25] MEDS: LACTOBACILLUS ACIDOPHILUS TAB PO SCH ×2 (09:35→22:42)
[2017-09-25] MEDS: SODIUM CHLORIDE 0.9% FLUSH 10 ML FLUSH IV FLUSH SCH ×2 (09:35→22:43)
[2017-09-25] MEDS: LABETALOL HCL 100 MG TAB PO SCH ×2 (09:35→22:42)
[2017-09-25] MEDS: FLUCONAZOLE 100 MG TAB PO SCH (09:35)
--- NOTE | 2017-09-25 09:38 | HHI.FPPN ---
Subjective Remarks Blood pressure elevated overnight into the 180s/70s. Patient doing well overall. She is feeling stronger every day and is feeling more mentally clear. She continues to have right flank pain. She denies any chest pain, shortness of breath, fever, chills, nausea or vomiting. She is tolerating by mouth intake. (Merari Torres MD, R3) Objective Vitals Vital Signs Date Time Temp Pulse Resp B/P (MAP) Pulse Ox O2 Delivery O2 Flow Rate FiO2 09/25/17 04:00 99.0 76 16 181/79 (113) 93 09/25/17 00:00 99.6 70 16 118/57 (77) 93 09/24/17 20:00 68 09/24/17 20:00 Room Air 09/24/17 20:00 99.1 73 16 149/70 (96) 93 09/24/17 16:00 98.3 73 19 159/72 (101) 91 09/24/17 12:00 99.4 77 18 162/70 (100) 93 I/O 09/24/17 09/24/17 09/24/17 09/25/17 09/25/17 09/25/17 07:00 15:00 23:00 07:00 15:00 23:00 Intake Total 460 ml 860 ml Output Total 925 ml 1200 ml 400 ml Balance -465 ml -340 ml -400 ml Intake Oral 460 ml 860 ml Output Urine Total 925 ml 1200 ml 400 ml (Merari Torres MD, R3) Result Diagram: 09/24/1718 09/24/1718 Imaging Last Impressions Abdomen/Pelvis CT 09/24/17 0000 Signed Impressions: Service Date/Time: Sunday, September 24, 2017 11:24 - CONCLUSION: 1. Persistent severe emphysematous pyelonephritis on the right with increase in the size of the perinephric abscess surrounding the right kidney. 2. Small bilateral pleural effusions with adjacent compressive atelectasis. 3. Enlarged uterus. Daniel Portillo MD Lower Extremity Ultrasound 09/22/17 0000 Signed Impressions: Service Date/Time: August 08:57 - CONCLUSION: The study is negative for deep venous thrombosis bilateral lower extremity. Corey Coley MD Brain MRI 09/21/17 0000 Signed Impressions: Service Date/Time: Thursday, September 21, 2017 16:48 - CONCLUSION: Stable size and appearance to the small area of restricted diffusion in the left cerebellum. No new findings. Corey Coley MD Neck Magnetic Resonance Angiography 09/20/[id number] Signed Impressions: Service Date/Time: Wednesday, September 20, 2017 08:19 - CONCLUSION: 1. Technically limited examination with nonvisualization of the arch and distal aspect of the vertebral/internal. 2. Midportion of the vertebrals and both carotid bifurcations appear to be patent. 3. If there is a clinical concern for significant cervical vascular disease, CTA of the neck vasculature may be considered for further characterization. Rony Sarabia MD Head Magnetic Resonance Angiography [id number]/20/[id number] Signed Impressions: Service Date/Time: Wednesday, September 20, 2017 08:19 - CONCLUSION: 1. MRI suggests severe multi-vascular territory disease with short segment occlusion/high-grade stenosis in the distal left internal carotid, the left M1 segment and occlusion of the right MCA territory near its origin. There also appear to be segmental stenoses in the posterior cerebral arteries as well. Findings are suggestive of a multi-territory embolic event. 2. However, findings are discordant from the most recent MRI of the brain performed one day earlier which only showed minimal diffusion restriction in the left PICA distribution. Unless the patient has had a recent cerebrovascular event in the last 24 hours , I would suggest CTA of the intracranial circulation for further characterization. Rony Sarabia MD Carotid Artery Ultrasound 09/19/17 0000 Signed Impressions: Service Date/Time: Tuesday, September 19, 2017 16:45 - CONCLUSION: Moderate disease in the carotid bifurcations bilaterally with subjective measures suggesting stenosis potentially on the order of 50-60%% Maycol Merritt MD Objective Remarks GENERAL: Sitting up in chair, eating breakfast. SKIN: Very small stage 2 sacral ulcer. HEAD: NC/AT EYES: No conjunctival injection or drainage. ENT: No nasal discharge, no oral secretions NECK: Supple, no lymphadenopathy. No JVD. CARDIOVASCULAR: RRR, faint systolic murmur, no rubs or gallops, pulses symmetrical. RESPIRATORY: CTAB. Decreased breath sounds in bases bilaterally. No crackles or wheezes. GASTROINTESTINAL: Abdomen soft, non-distended, diffusely tender to palpation. GENITOURINARY: CVA tenderness on right MUSCULOSKELETAL: Extremities without clubbing, cyanosis, or edema. NEUROLOGICAL: Awake and alert. 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 Now with enlarging perinephric abscess. Urology on board. Also with initial delirium and finding of small acute vs. subacute infarction of left cortex of cerebellum. Neurology on board. Discharge Planning Pending resolution of leukocytosis, results of cultures, stable clinically. Will be discharged to [facility], in discussion with Kristin, mission support specialist. (Merari Torres MD, R3) Attending Attestation A detailed discussion with Dr Torres about patients admission and hospital course,EMR reviewed, Patient seen and examined, agree with assessment and plan, see orders. (French Salter MD) Problem List: (1) Emphysematous pyelonephritis ICD Codes: N12 - Tubulo-interstitial nephritis, not specified as acute or chronic Status: Acute Plan: White count continuing to trend up Afebrile overnight Emphysematous pyelonephritis involving the right kidney, repeat CT on 09/20 showing continued severe emphysematous pyelonephritis on the right with increase in size of the perinephric abscess Urology on board, she is status post ureteral stent on right. Recommend percutaneous drainage of abscess. Will consult IR and hold Heparin this evening in anticipation of percutaneous drainage tomorrow. Infectious disease also on board, helping to manage antibiotics. Blood culture positive for E.coli, urine with e.coli, colony counts improving. 09/22 urine culture with no growth 09/22 and 09/23 blood cultures NGTD - Continue Rocephin 2g IV Q24H (started 09/22) - Tylenol 650 mg every 6 hours PRN for flank pain. - Zofran 4 mg IV every 8 hours as needed for nausea and vomiting - Follow repeat blood and urine cultures. (2) Acute ischemic stroke ICD Codes: I63.9 - Cerebral infarction, unspecified Status: Acute Plan: MRI brain ordered 09/19 for altered mental status, some uncoordination with walking. Small acute versus subacute infarction of the left cerebellar cortex about 5 mm. Discussed finding with radiologist, Dr. Coley. He suggests that the infarction is anywhere from hours to several days old. He suggests that it does not correlate with her symptoms and is likely to not have any neurological effects given its location and size, likely came from an end artery as opposed to a major vessel. He suggests the possibility of a small septic emboli as the cause. Head MRA showing severe multi-vascular disease with occlusions and stenoses in multiple territories, suggesting possible embolic events. However, repeat brain MRI is the same as initial MRI, so not correlated with the findings on the MRA. TERRELL showed a PFO, but no vegetations. Carotid Doppler suggesting 50-60% stenosis of carotid arteries bilaterally. EEG with generalized slowing, likely encephalopathy. LE ultrasound to check for DVT (due to PFO) is negative. - Aspirin increased to 325 mg daily - On statin, continue gemfibrozil from home - Cardiac monitoring - Has bilateral SCD's and prophylactic heparin. - Restarted amlodipine, will resume lisinopril initially held for DELLA. - Neurology suggests not closing PFO. - Had long discussion with daughter and patient about anticoagulation given the PFO and possible embolization event. Daughter and patient both would like the treatment to consist only of aspirin for now. - Consulted neurology, cardiology (signed off), infectious disease, appreciate recommendations. (3) Stage 2 skin ulcer of sacral region ICD Codes: L89.152 - Pressure ulcer of sacral region, stage 2 Status: Chronic Plan: Very small stage 2 ulcer in sacral region. - Occlusive hydrocolloid dressing daily - Turn every 2 hours - Up in chair as much as possible - Monitor for progression (4) Elevated troponin ICD Codes: R74.8 - Abnormal levels of other serum enzymes Status: Acute Plan: Elevated troponin, but remained relatively flat. Cardiology consulted, suggesting likely demand mediated in the context of kidney disease. - May consider Lexiscan depending on recovery. (5) Diabetes mellitus ICD Codes: E11.9 - Type 2 diabetes mellitus without complications Status: Chronic Plan: Very poor control at home. A1C 12.2. Has not been taking her oral medications at home and not on insulin. Poor understanding of diabetes. Only on glipizide at home. - Low dose sliding scale insulin. - Levemir 10 units at night. - Glucose checks before meals and at bedtime - Diabetic diet - Consulted clinical trial educator - Consulted case management to assess possible reasons for poor compliance and attendance at office visits - Likely will need insulin at home (6) Hypertension Status: Chronic Plan: History of hypertension - Continue home dose of amlodipine and lisinopril - Vasotec PRN (7) Dyslipidemia ICD Codes: E78.5 - Dyslipidemia Status: Chronic Plan: Continue home gemfibrozil Started Pravastatin 40 mg daily (8) FEN/PPX Plan: Fluids: PO Electrolytes: Monitor and replace as needed, monitor renal function Nutrition: Diabetic diet DVT: Heparin 5000 units subcutaneous 3 times a day (Hold tonight in anticipation of percutaneous drainage tomorrow), bilateral SCD's CODE STATUS: Full code (Merari Torres MD, R3) Merari Torres MD, R3 Sep 25, 2017 09:38 French Salter MD Sep 27, 2017 10:55
[2017-09-25 10:10] LABS: AUTOMATED NEUTROPHIL # 15.6 TH/MM3 (1.8-7.7); BASOPHIL # 0.2 TH/MM3 (0-0.2); EOSINOPHIL # 0.2 TH/MM3 (0-0.4); EOSINOPHIL % 1.3 % (0.0-4.0); HEMATOCRIT 25.2 % (35.0-46.0); HEMO FLAGS DIFF FINAL; LYMPH % 11.9 % (9.0-44.0); LYMPHOCYTE # 2.3 TH/MM3 (1.0-4.8); MEAN CELL VOLUME 86.9 FL (80.0-100.0); MEAN CORPUSCULAR HEMOGLOBIN 29.4 PG (27.0-34.0); MEAN CORPUSCULAR HGB CONC 33.8 % (32.0-36.0); MONO % 3.8 % (0.0-8.0); PLATELET COUNT 555 TH/MM3 (150-450)
[2017-09-25 10:36] LABS: BICARBONATE 20.9 MEQ/L (21.0-32.0); POTASSIUM 3.1 MEQ/L (3.5-5.1)
[2017-09-25 12:00] VITALS: BP 144/83; PULSE 72; RESP 20; TEMP 98.4; O2SAT 93
--- NOTE | 2017-09-25 13:42 | HHI.PR ---
Subjective Patient symptoms today Urology on-call coverage Contacted by medicine service to discuss recent repeat CT scan findings Essentially the CT scan demonstrated persistence of the severe right emphysematous pyelonephritis as well as increasing perirenal abscess formation Patient is status post right ureteral stent placement on September 17 Objective Vital Signs Vital Signs Date Time Temp Pulse Resp B/P (MAP) Pulse Ox O2 Delivery O2 Flow Rate FiO2 09/25/17 08:00 99.4 78 20 158/74 (102) 92 09/25/17 04:00 99.0 76 16 181/79 (113) 93 09/25/17 00:00 99.6 70 16 118/57 (77) 93 09/24/17 20:00 68 09/24/17 20:00 Room Air 09/24/17 20:00 99.1 73 16 149/70 (96) 93 09/24/17 16:00 98.3 73 19 159/72 (101) 91 Intake & Output 09/25/17 09/25/17 07:00 19:00 Output Total 1600 ml Balance -1600 ml Output Urine Total 1600 ml Result Diagram: 09/25/1790409/25/17904 Objective Remarks Abdomen soft, nondistended, nontender No CVA tenderness No percussion or shake tenderness Medications and IVs Current Medications Medications (Trade) Dose Ordered Sig/Alisha Route Start Time Stop Time Status Last Admin (NS Flush) 2 ml UNSCH PRN IV FLUSH 09/16/17 19:30 (NS Flush) 2 ml BID IV FLUSH 09/16/17 21:00 09/25/17 09:35 (Norvasc) 10 mg DAILY PO 09/17/17 09:00 Future hold 09/25/17 09:34 (Lopid) 300 mg BIDAC PO 09/17/17 07:00 09/25/17 06:35 (Prinivil) 40 mg DAILY PO 09/17/17 09:00 Future hold 09/25/17 09:34 (Narcan Inj) 0.4 mg UNSCH X1 PRN IV PUSH 09/16/17 20:15 10/16/17 20:14 (Zofran Inj) 4 mg Q8HR PRN IV PUSH 09/16/17 20:15 (Levemir Inj) 10 units Q12HR SQ 09/16/17 21:00 Future Hold 09/17/17 20:40 (NovoLOG INJ) 8 units TIDAC SQ 09/17/17 08:00 Future Hold 09/17/17 17:34 (D50w (Vial) Inj) 50 ml UNSCH PRN IV PUSH 09/16/17 20:15 (Glucagon Inj) 1 mg UNSCH PRN OTHER 09/16/17 20:15 (NovoLOG SUPPLEMENTAL SCALE) 1 ACHS SLIDING SCALE SQ 09/19/17 12:00 09/24/17 22:26 (Pravachol) 40 mg HS PO 09/19/17 21:00 09/24/17 22:24 (Heparin Inj) 5,000 units Q8HR SQ 09/22/17 14:00 Future Hold 09/25/17 06:36 (Aspirin) 325 mg DAILY PO 09/22/17 09:15 09/25/17 09:34 Ceftriaxone Sodium 2000 mg/ Sodium Chloride 100 ml @ 200 mls/hr Q24H IV 09/22/17 16:00 09/24/17 17:32 (Diflucan) 100 mg DAILY PO 09/22/17 15:00 09/29/17 14:59 09/25/17 09:35 (Apresoline) 25 mg Q8HR PRN PO 09/23/17 04:45 Future Hold (Levemir Inj) 10 units HS SQ 09/23/17 21:00 09/24/17 22:27 (Lactinex) 1 tab Q12HR PO 09/23/17 10:15 09/25/17 09:35 (Roxicodone) 5 mg Q8H PRN PO 09/23/17 12:00 09/25/17 06:36 (Tylenol) 650 mg Q6HR PO 09/23/17 12:00 09/25/17 12:54 (Trandate) 100 mg Q12HR PO 09/23/17 21:00 09/25/17 09:35 (Duoneb Neb) 1 ampule Q4HR NEB PRN NEB 09/24/17 09:30 (Vasotec Inj) 1.25 mg Q6H PRN IV PUSH 09/25/17 05:45 09/25/17 06:30 Assessment and Plan Problem List: (1) Emphysematous pyelonephritis ICD Code: 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 ?Antibiotics ?Abscess formation. If WBC continues to rise, would repeat CT. -Would only perform a Right Nephrectomy as a LAST RESORT if her condition warrants it as it carries both a high complication and mortality rate when done in the setting of Emphysematous Pyelonephritis. -d/c jeffers September 25, 2017 Urologic impression: Progression of the emphysematous right pyelonephritis despite antibiotic therapy and recent stent placement. Plan: #1 nothing by mouth after midnight. #2 interventional radiology consult for percutaneous drainage. Randolph Patel MD Sep 25, 2017 13:42
[2017-09-25 15:23] LABS: MRSA PCR NEGATIVE (NEGATIVE); STAPH AUREUS PCR POSITIVE (NEGATIVE)
[2017-09-25 16:00] VITALS: BP 163/70; PULSE 74; RESP 20; TEMP 98.4; O2SAT 92
[2017-09-25] MEDS: cefTRIAXone INJ 2,000 MG in SODIUM CHLORIDE 0.9% INJ 100 ML IV SCH (17:30)
[2017-09-25 20:00] VITALS: BP 136/92; PULSE 71; PULSE 84; RESP 21; TEMP 98.2; O2SAT 93
[2017-09-25] MEDS: INSULIN DETEMIR 100 UNITS/ML VIAL SQ SCH (22:42)
[2017-09-25] MEDS: PRAVASTATIN SOD 40 MG TAB PO SCH (22:42)
[2017-09-25 23:53] LABS: THROMBIN TIME FOR LA ND sec (13-19)
[2017-09-26] VITALS (8 sets, daily range): BP systolic 131–159; BP diastolic 55–87; PULSE 70–83; RESP 17–20; TEMP 98–100.6; O2SAT 86–97
[2017-09-26] MEDS: GEMFIBROZIL 600 MG TAB PO SCH ×2 (06:33→16:45)
[2017-09-26] MEDS: ACETAMINOPHEN 325 MG TAB PO SCH ×3 (06:33→18:12)
[2017-09-26 07:09] LABS: HEMATOCRIT 26.2 % (35.0-46.0); MEAN CELL VOLUME 88.3 FL (80.0-100.0); MEAN CORPUSCULAR HGB CONC 32.8 % (32.0-36.0); PLATELET COUNT 629 TH/MM3 (150-450); RED BLOOD COUNT 2.97 MIL/MM3 (4.00-5.30); RED CELL DISTRIBUTION WIDTH 14.5 % (11.6-17.2); REVIEW FLAG FINAL; WHITE BLOOD COUNT 16.4 TH/MM3 (4.0-11.0)
[2017-09-26 07:16] LABS: APTT (PATIENT) 29.3 SEC (24.3-30.1); PROTHROMBIN TIME - PATIENT 11.4 SEC (9.8-11.6)
[2017-09-26 07:43] LABS: BICARBONATE 21.8 MEQ/L (21.0-32.0); POTASSIUM 3.5 MEQ/L (3.5-5.1)
--- NOTE | 2017-09-26 08:37 | HHI.PR ---
Subjective Remarks bp up Objective Vital Signs Date Time Temp Pulse Resp B/P (MAP) Pulse Ox O2 Delivery O2 Flow Rate FiO2 09/26/17 04:00 98.0 77 18 142/74 (96) 97 09/26/17 00:00 98.0 71 20 131/62 (85) 94 09/25/17 20:00 Room Air 09/25/17 20:00 98.2 84 21 136/92 (107) 93 09/25/17 20:00 71 09/25/17 16:00 98.4 74 20 163/70 (101) 92 09/25/17 12:00 98.4 72 20 144/83 (103) 93 I/O 09/25/17 09/25/17 09/25/17 09/26/17 09/26/17 09/26/17 07:00 15:00 23:00 07:00 15:00 23:00 Intake Total 100 ml 100 ml 480 ml Output Total 400 ml Balance -300 ml 100 ml 480 ml Intake Oral 480 ml IV Total 100 ml 100 ml Output Urine Total 400 ml # Voids 5 # Bowel Movements 2 Result Diagram: 09/26/1718 09/26/1718 Objective Remarks looks well nl speech walking well she tells me co pain kidneya little looks totally fine Assessment and Plan Assessment and Plan imp abg 7.28 pH ? from sepsis defer to med team on acidosis probably contributed to ms change i dw cards to do chanell mra echo eeg pend esr >140 probably some endocarditis i do not at this point think meningitis or encephalitis clinically ID on case dep on course about asa or sq heparin at this point much better neuro tejada ------ 09/21/17 back to nl neuro tejada mra neck echo and eeg nl mra cow poor flow r mca and some dec branch flow could have been mult small emboli will recheck mri creat too high for cta for chanell i restarted asa and get oob keep well hydrated and bp up 09/22/17 sr nl neuro on asa willinc to 325 i started sq heparin today repeat mri no new cva mra a lot of arterial dz labs neg has pfo but at this stage since not on asa at home would just rx with asa check ble for and dvt could of course had developed small pelvic clot with pyelo will have ct reviewed for any of that with rads would not close pfo now or do coumadin for now esr inc but septic and check fu claudia la rf 09/23/17 doing well rf neg i dw rads no evidence clot on ct and us ble neg cards wants to anticoag i could go with asa but am ok with anticoag per cards so med team shold start this if felt ok with kidney and dc asa when inr>1.9 oob ok to rx bp to 120/70 not a large cva ok for pain meds for kidneuy pain renal fx getting better she could ? dc soon 09/26/17 bp up a little loks fine neuro tejada pfo some inc kidney? abcess drain or not? med team on case cva small asa for now sq hep dced for ? drain up to med team to restart if ok with kidney cards wanted coumadin Sean Joiner MD Sep 26, 2017 08:37
[2017-09-26] MEDS: ASPIRIN 325 MG TAB PO SCH (09:55)
[2017-09-26] MEDS: INSULIN ASPART SUPPLEMENTAL SCALE SQ SCH ×4 (09:55→21:06)
[2017-09-26] MEDS: SODIUM CHLORIDE 0.9% FLUSH 10 ML FLUSH IV FLUSH SCH ×2 (09:55→21:05)
[2017-09-26] MEDS: LISINOPRIL 20 MG TAB PO SCH (09:55)
[2017-09-26] MEDS: LABETALOL HCL 100 MG TAB PO SCH ×2 (09:55→21:05)
[2017-09-26] MEDS: LACTOBACILLUS ACIDOPHILUS TAB PO SCH ×2 (09:55→21:05)
[2017-09-26] MEDS: FLUCONAZOLE 100 MG TAB PO SCH (09:55)
--- NOTE | 2017-09-26 12:41 | HHI.IDPN ---
Subjective Subjective Remarks Patient is a 67-year-old female, presented to the hospital complaining of three- day history of right-sided abdominal pain, and right flank pain. This was associated with nausea and vomiting as well as frequency and dysuria. She denies any hematuria. In the emergency room she was found to have a white count of 19,000. She has significant pyuria. Creatinine was also elevated. CT of the abdomen and pelvis showed evidence of air in the right kidney, right renal pelvis and also some air extending in the renal vein into the IVC. There is also a small amount of air seen in the hilum of the left kidney. There was some right hydronephrosis and ureter, but no kidney stones seen to cause obstruction. Patient has had prior history of bladder and kidney infection but not this severe. Patient also was found to have very high blood glucose. 2 blood cultures done and are now reported as growing gram-negative rods. Patient underwent surgery, and had cystoscopy and placement of a right ureteral stent. She has been afebrile since admission. Her white count remains elevated at 19,000. Infectious disease consultation has been requested to evaluate the patient with emphysematous pyelonephritis. Notes reviewed Temps low grade Last (+) BC 09/20 with E coli Repeat CT A/P with worsening changes R kidney TERRELL with PFO Still with mild R sided abdominal pain WBC slightly lower To get procedure in radiology dept today [place] removed this weekend, voiding ok Repeat UA with pyuria, C/S negative Antibiotics I attest that I obtained, updated or reviewed the home and current medications. Rocephin Current Medications Medications (Trade) Dose Ordered Sig/Alisha Route Start Time Stop Time Status Last Admin (NS Flush) 2 ml UNSCH PRN IV FLUSH 09/16/17 19:30 (NS Flush) 2 ml BID IV FLUSH 09/16/17 21:00 09/26/17 09:55 (Norvasc) 10 mg DAILY PO 09/17/17 09:00 Future hold 09/26/17 09:55 (Lopid) 300 mg BIDAC PO 09/17/17 07:00 09/26/17 06:33 (Prinivil) 40 mg DAILY PO 09/17/17 09:00 Future hold 09/26/17 09:55 (Narcan Inj) 0.4 mg UNSCH X1 PRN IV PUSH 09/16/17 20:15 10/16/17 20:14 (Zofran Inj) 4 mg Q8HR PRN IV PUSH 09/16/17 20:15 (Levemir Inj) 10 units Q12HR SQ 09/16/17 21:00 Future Hold 09/17/17 20:40 (NovoLOG INJ) 8 units TIDAC SQ 09/17/17 08:00 Future Hold 09/17/17 17:34 (D50w (Vial) Inj) 50 ml UNSCH PRN IV PUSH 09/16/17 20:15 (Glucagon Inj) 1 mg UNSCH PRN OTHER 09/16/17 20:15 (NovoLOG SUPPLEMENTAL SCALE) 1 ACHS SLIDING SCALE SQ 09/19/17 12:00 09/25/17 22:43 (Pravachol) 40 mg HS PO 09/19/17 21:00 09/25/17 22:42 (Heparin Inj) 5,000 units Q8HR SQ 09/22/17 14:00 Future Hold 09/25/17 06:36 (Aspirin) 325 mg DAILY PO 09/22/17 09:15 09/25/17 09:34 Ceftriaxone Sodium 2000 mg/ Sodium Chloride 100 ml @ 200 mls/hr Q24H IV 09/22/17 16:00 09/25/17 17:30 (Diflucan) 100 mg DAILY PO 09/22/17 15:00 09/29/17 14:59 09/26/17 09:55 (Apresoline) 25 mg Q8HR PRN PO 09/23/17 04:45 Future Hold (Levemir Inj) 10 units HS SQ 09/23/17 21:00 09/25/17 22:42 (Lactinex) 1 tab Q12HR PO 09/23/17 10:15 09/26/17 09:55 (Roxicodone) 5 mg Q8H PRN PO 09/23/17 12:00 09/26/17 06:34 (Tylenol) 650 mg Q6HR PO 09/23/17 12:00 09/26/17 06:33 (Trandate) 100 mg Q12HR PO 09/23/17 21:00 09/26/17 09:55 (Duoneb Neb) 1 ampule Q4HR NEB PRN NEB 09/24/17 09:30 (Vasotec Inj) 1.25 mg Q6H PRN IV PUSH 09/25/17 05:45 09/25/17 06:30 Lines PIV Past Medical History Diabetes HTN Hypertriglyceridemia CAD Previous episodes of UTI Past Surgical History Caesarian section Allergies: Coded Allergies: metformin (Unverified Allergy, Severe, Numbness, 07/12/17) clonidine (Unverified Allergy, Unknown, 07/12/17) Objective . Vital Signs Date Time Temp Pulse Resp B/P (MAP) Pulse Ox O2 Delivery O2 Flow Rate FiO2 09/26/17 12:25 98.6 70 18 140/55 (83) 92 09/26/17 10:00 Room Air 09/26/17 10:00 83 09/26/17 08:04 100.6 80 17 153/87 (109) 87 09/26/17 04:00 98.0 77 18 142/74 (96) 97 09/26/17 00:00 98.0 71 20 131/62 (85) 94 09/25/17 20:00 Room Air 09/25/17 20:00 98.2 84 21 136/92 (107) 93 09/25/17 20:00 71 09/25/17 16:00 98.4 74 20 163/70 (101) 92 . Laboratory Tests Test 09/25/17 09:05 09/26/17 06:18 White Blood Count 19.0 TH/MM3 16.4 TH/MM3 Red Blood Count 2.90 MIL/MM3 2.97 MIL/MM3 Hemoglobin 8.5 GM/DL 8.6 GM/DL Hematocrit 25.2 % 26.2 % Mean Corpuscular Volume 86.9 FL 88.3 FL Mean Corpuscular Hemoglobin 29.4 PG 29.0 PG Mean Corpuscular Hemoglobin Concent 33.8 % 32.8 % Red Cell Distribution Width 14.0 % 14.5 % Platelet Count 555 TH/MM3 629 TH/MM3 Mean Platelet Volume 8.1 FL 7.7 FL Neutrophils (%) (Auto) 82.0 % Lymphocytes (%) (Auto) 11.9 % Monocytes (%) (Auto) 3.8 % Eosinophils (%) (Auto) 1.3 % Basophils (%) (Auto) 1.0 % Neutrophils # (Auto) 15.6 TH/MM3 Lymphocytes # (Auto) 2.3 TH/MM3 Monocytes # (Auto) 0.7 TH/MM3 Eosinophils # (Auto) 0.2 TH/MM3 Basophils # (Auto) 0.2 TH/MM3 CBC Comment DIFF FINAL Differential Comment Laboratory Tests Test 09/25/17 09:05 09/26/17 06:18 Blood Urea Nitrogen 20 MG/DL 20 MG/DL Creatinine 0.90 MG/DL 1.19 MG/DL Random Glucose 92 MG/DL 125 MG/DL Calcium Level 8.5 MG/DL 8.2 MG/DL Sodium Level 135 MEQ/L 135 MEQ/L Potassium Level 3.1 MEQ/L 3.5 MEQ/L Chloride Level 101 MEQ/L 103 MEQ/L Carbon Dioxide Level 20.9 MEQ/L 21.8 MEQ/L Anion Gap 13 MEQ/L 10 MEQ/L Estimat Glomerular Filtration Rate 76 ML/MIN 55 ML/MIN Imaging Abdomen/Pelvis CT 09/16/17 0000 Signed Impressions: Service Date/Time: Saturday, September 16, 2017 17:27 - CONCLUSION: 1. 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 No obstructing stone or mass observed. Air is seen throughout the right kidney parenchyma, collecting system, and into the renal vein. A small amount of air is seen involving the upper pole of the left kidney near the hilum likely extension from air within the inferior vena cava. There is mild hydronephrosis and hydroureter on the right. No obstruction on the left. Corey Millan Jr., MD Physical Exam GENERAL: awake, and alert, not in respiratory distress. SKIN: Warm and dry. No generalized rash, no ecchymoses and no evidence of embolic lesions. HEAD: Atraumatic. Normocephalic. No temporal wasting, or tenderness. EYES: [place] conjunctiva. No petechia or hemorrhage. Pupils equal, round and reactive to light. Extraocular movements full and intact. No scleral icterus. No injection or drainage. EARS, NOSE AND THROAT: Nose without bleeding or purulent nasal discharge. Mucous membranes pink and moist. No oral lesions noted. No exudate. No oral thrush. NECK: Trachea midline. Supple and not tender, no meningeal signs. No nuchal rigidity. CARDIOVASCULAR: Regular rate and rhythm. No murmurs, rubs or gallops heard RESPIRATORY: Clear to auscultation. Breath sounds equal bilaterally. No rales , wheezing or rhonchi ABDOMEN: Soft, nondistended, bowel sounds present and normoactive. Tenderness on R side, but no guarding. No rebound. NEUROLOGICAL: Non-focal PSYCHIATRIC: Normal affect, calm and cooperative. LINE: No evidence of infection Assessment & Plan Remarks IMPRESSION E coli sepsis due to emphysematous pyelonephritis on R, worse on last CT - S/P cysto and R ureteral stent placement - CT with progression of air (per urology, it will take a while for air to resolve) - repeat UC with lower colony count E coli, WBC down to normal - has new (+) BC TERRELL with PFO Renal insufficiency Diabetes, poorly controlled Leukocytosis, worsening due to progression of infection in her R kidney Lethargy, ?could still be from sepsis, ?relative hypoglycemia - ?due to Zosyn - better RECOMMENDATION Continue IV Rocephin Follow C/S To have nephrostomy placed on her R kidney - will send new specimen once in Continue Diflucan Follow CBC Monitor temps Monitor progress Explained caro to patient and daughter Ann Hoffmann MD Sep 26, 2017 12:41
--- NOTE | 2017-09-26 12:54 | RADRPT ---
EXAM DATE/TIME: 09/26/2017 00:00 [facility] COMPARISON: CT ABDOMEN & PELVIS W/O CONTRAST, September 24, 2017, 11:24. INDICATIONS : Right perinephric abscess. FINDINGS: Percutaneous abscess drainage is requested. Unfortunately, the right perinephric abscess is not acces sible percutaneously as it is located anterior to the right kidney. CONCLUSION: The right perinephric abscess is not accessible percutaneously due to its anterior position. Daniel Portillo MD on September 26, 2017 at 12:48 Board Certified Radiologist. This report was verified electronically.
--- NOTE | 2017-09-26 13:47 | HHI.FPPN ---
Subjective Remarks No acute events overnight. Patient with temperature up to 100.6 this morning. White count trended down to 16.4 from 2.16 two days ago. Platelets elevated, likely acute phase reactant. Clinically, patient appears well. She is alert, awake, in good spirits. She reports flank pain on right is improving but still present. She has no chest pain or shortness of breath. She has no nausea or vomiting. She has no calf tenderness. Planning for perinephric abscess drainage today. (Eric Bertrand MD R3) Objective Vitals Vital Signs Date Time Temp Pulse Resp B/P (MAP) Pulse Ox O2 Delivery O2 Flow Rate FiO2 09/26/17 12:25 98.6 70 18 140/55 (83) 92 09/26/17 10:00 Room Air 09/26/17 10:00 83 09/26/17 08:04 100.6 80 17 153/87 (109) 87 09/26/17 04:00 98.0 77 18 142/74 (96) 97 09/26/17 00:00 98.0 71 20 131/62 (85) 94 09/25/17 20:00 Room Air 09/25/17 20:00 98.2 84 21 136/92 (107) 93 09/25/17 20:00 71 09/25/17 16:00 98.4 74 20 163/70 (101) 92 I/O 09/25/17 09/25/17 09/25/17 09/26/17 09/26/17 09/26/17 07:00 15:00 23:00 07:00 15:00 23:00 Intake Total 100 ml 100 ml 480 ml Output Total 400 ml Balance -300 ml 100 ml 480 ml Intake Oral 480 ml IV Total 100 ml 100 ml Output Urine Total 400 ml # Voids 5 # Bowel Movements 2 (Eric Bertrand MD R3) Result Diagram: 09/26/1718 09/26/1718 Imaging Last 72 hours Impressions Consultation 09/26/17 0000 Signed Impressions: Service Date/Time: Tuesday, September 26, 2017 00:00 - CONCLUSION: The right perinephric abscess is not accessible percutaneously due to its anterior position. Daniel Portillo MD Abdomen/Pelvis CT 09/24/17 0000 Signed Impressions: Service Date/Time: Saturday, September 24, 2017 11:24 - CONCLUSION: 1. Persistent severe emphysematous pyelonephritis on the right with increase in the size of the perinephric abscess surrounding the right kidney. 2. Small bilateral pleural effusions with adjacent compressive atelectasis. 3. Enlarged uterus. Daniel Portillo MD Objective Remarks GENERAL: Sitting up in bed, no distress, in good spirits SKIN: Very small stage 2 sacral ulcer, not examined today. HEAD: NC/AT EYES: No conjunctival injection or drainage. ENT: No nasal discharge, no oral secretions NECK: Supple, no lymphadenopathy. No JVD. CARDIOVASCULAR: RRR, faint systolic murmur, no rubs or gallops, pulses symmetrical. RESPIRATORY: CTAB. No crackles or wheezes. GASTROINTESTINAL: Abdomen soft, non-distended GENITOURINARY: CVA tenderness on right but improving MUSCULOSKELETAL: Extremities without clubbing, cyanosis, or edema. NEUROLOGICAL: Awake and alert. 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 Now with enlarging perinephric abscess. Urology on board. Also with initial delirium and finding of small acute vs. subacute infarction of left cortex of cerebellum. Neurology on board. Perinephric abscess drainage on 09/26. Discharge Planning Pending resolution of leukocytosis, results of cultures, stable clinically, perinephric abscess drainage. Will be discharged to [facility], in discussion with Kristin, accounts payable specialist. (Eric Bertrand MD R3) Attending Attestation A detailed discussion with Dr Bertrand about patients admission and hospital course ,EMR reviewed, Patient seen and examined, agree with assessment and plan,see orders.Daughter involvrd in decision making (French Salter MD) Problem List: (1) Emphysematous pyelonephritis ICD Codes: N12 - Tubulo-interstitial nephritis, not specified as acute or chronic Status: Acute Plan: White count trending back down Fever this morning low grade Emphysematous pyelonephritis involving the right kidney, repeat CT on 09/20 showing continued severe emphysematous pyelonephritis on the right with increase in size of the perinephric abscess Urology on board, she is status post ureteral stent on right. Recommend percutaneous drainage of abscess. Infectious disease also on board, helping to manage antibiotics. Blood culture positive for E.coli, urine with e.coli, colony counts improving. 09/22 urine culture with no growth 09/22 and 09/23 blood cultures NGTD - Continue Rocephin 2g IV Q24H (started 09/22) - Tylenol 650 mg every 6 hours PRN for flank pain. - Zofran 4 mg IV every 8 hours as needed for nausea and vomiting - Follow repeat blood and urine cultures. - Perinephric abscess drainage 09/26 (2) Acute ischemic stroke ICD Codes: I63.9 - Cerebral infarction, unspecified Status: Acute Plan: MRI brain ordered 09/19 for altered mental status, some uncoordination with walking. Small acute versus subacute infarction of the left cerebellar cortex about 5 mm. Discussed finding with radiologist, Dr. Coley. He suggests that the infarction is anywhere from hours to several days old. He suggests that it does not correlate with her symptoms and is likely to not have any neurological effects given its location and size, likely came from an end artery as opposed to a major vessel. He suggests the possibility of a small septic emboli as the cause. Head MRA showing severe multi-vascular disease with occlusions and stenoses in multiple territories, suggesting possible embolic events. However, repeat brain MRI is the same as initial MRI, so not correlated with the findings on the MRA. TERRELL showed a PFO, but no vegetations. Carotid Doppler suggesting 50-60% stenosis of carotid arteries bilaterally. EEG with generalized slowing, likely encephalopathy. LE ultrasound to check for DVT (due to PFO) is negative. - Aspirin increased to 325 mg daily - On statin, continue gemfibrozil from home - Cardiac monitoring - Has bilateral SCD's and prophylactic heparin. - Restarted amlodipine, will resume lisinopril initially held for DELLA. - Neurology suggests not closing PFO. - Had long discussion with daughter and patient about anticoagulation given the PFO and possible embolization event. Daughter and patient both would like the treatment to consist only of aspirin for now. - Consulted neurology, cardiology (signed off), infectious disease, appreciate recommendations. (3) Stage 2 skin ulcer of sacral region ICD Codes: L89.152 - Pressure ulcer of sacral region, stage 2 Status: Chronic Plan: Very small stage 2 ulcer in sacral region. - Occlusive hydrocolloid dressing daily - Turn every 2 hours - Up in chair as much as possible - Monitor for progression (4) Elevated troponin ICD Codes: R74.8 - Abnormal levels of other serum enzymes Status: Acute Plan: Elevated troponin, but remained relatively flat. Cardiology consulted, suggesting likely demand mediated in the context of kidney disease. - May consider Lexiscan depending on recovery. (5) Diabetes mellitus ICD Codes: E11.9 - Type 2 diabetes mellitus without complications Status: Chronic Plan: Very poor control at home. A1C 12.2. Has not been taking her oral medications at home and not on insulin. Poor understanding of diabetes. Only on glipizide at home. - Low dose sliding scale insulin. - Levemir 10 units at night. - Glucose checks before meals and at bedtime - Diabetic diet - Consulted school vocational educator - Consulted case management to assess possible reasons for poor compliance and attendance at office visits - Likely will need insulin at home (6) Hypertension Status: Chronic Plan: History of hypertension - Continue home dose of amlodipine and lisinopril - Vasotec PRN (7) Dyslipidemia ICD Codes: E78.5 - Dyslipidemia Status: Chronic Plan: Continue home gemfibrozil Started Pravastatin 40 mg daily (8) FEN/PPX Plan: Fluids: NPO for procedure Electrolytes: Monitor and replace as needed, monitor renal function Nutrition: NPO for procedure, diabetic diet after DVT: Heparin 5000 units subcutaneous 3 times a day (Holding for percutaneous drainage, restart afterwards), bilateral SCD's CODE STATUS: Full code (Eric Bertrand MD R3) Eric Bertrand MD R3 Sep 26, 2017 13:46 French Salter MD Sep 27, 2017 11:00
[2017-09-26] MEDS: cefTRIAXone INJ 2,000 MG in SODIUM CHLORIDE 0.9% INJ 100 ML IV SCH (16:46)
[2017-09-26 17:52] LABS: MYELOPEROXIDASE LESS THAN 1.0 AI (<1.0); PROTEINASE-3 LESS THAN 1.0 AI (<1.0)
[2017-09-26] MEDS: PRAVASTATIN SOD 40 MG TAB PO SCH (21:05)
[2017-09-26] MEDS: INSULIN DETEMIR 100 UNITS/ML VIAL SQ SCH (21:06)
[2017-09-26] MEDS: RESP: ALBUTEROL 2.5 MG/IPRATROPIUM 0.5 MG NEB (PRN) NEB (21:43)
[2017-09-27] VITALS (11 sets, daily range): BP systolic 123–147; BP diastolic 58–74; PULSE 62–75; RESP 16–22; TEMP 97.7–99; O2SAT 91–100
[2017-09-27] MEDS: ACETAMINOPHEN 325 MG TAB PO SCH ×4 (00:48→18:18)
[2017-09-27] MEDS: GEMFIBROZIL 600 MG TAB PO SCH ×2 (06:05→17:32)
[2017-09-27 07:49] LABS: HEMATOCRIT 24.7 % (35.0-46.0); MEAN CELL VOLUME 88.8 FL (80.0-100.0); MEAN CORPUSCULAR HGB CONC 32.6 % (32.0-36.0); PLATELET COUNT 634 TH/MM3 (150-450); RED BLOOD COUNT 2.78 MIL/MM3 (4.00-5.30); RED CELL DISTRIBUTION WIDTH 14.6 % (11.6-17.2); REVIEW FLAG FINAL; WHITE BLOOD COUNT 14.1 TH/MM3 (4.0-11.0)
[2017-09-27 08:05] LABS: BICARBONATE 22.7 MEQ/L (21.0-32.0); POTASSIUM 3.3 MEQ/L (3.5-5.1)
[2017-09-27] MEDS: SODIUM CHLORIDE 0.9% FLUSH 10 ML FLUSH IV FLUSH SCH ×2 (09:23→21:28)
[2017-09-27] MEDS: LABETALOL HCL 100 MG TAB PO SCH ×2 (09:23→21:27)
[2017-09-27] MEDS: FLUCONAZOLE 100 MG TAB PO SCH (09:23)
[2017-09-27] MEDS: LISINOPRIL 20 MG TAB PO SCH (09:23)
[2017-09-27] MEDS: LACTOBACILLUS ACIDOPHILUS TAB PO SCH ×2 (09:23→21:27)
[2017-09-27] MEDS: ASPIRIN 325 MG TAB PO SCH (09:23)
[2017-09-27] MEDS: INSULIN ASPART SUPPLEMENTAL SCALE SQ SCH ×4 (09:23→21:28)
--- NOTE | 2017-09-27 11:04 | HHI.FPPN ---
Subjective Remarks Overnight patient had episode of desaturation to the upper 80's and felt wheezy. She improved with 1L via nasal cannula and a DuoNeb treatment. She had no further respiratory issues overnight. She reports no coughing or sputum production. Her last fever was 09/26 at 8:04 of 100.6. White count is continuing to trend down. This morning she has no complaints. No chest pain or shortness of breath. No abdominal pain, nausea, or vomiting. She is mobilizing more and improving her strength. She has right flank pain that is about the same as yesterday. She was due for a percutaneous drainage of perinephric abscess but unfortunately was not able to get it done due to technical difficulties. (Eric Bertrand MD R3) Objective Vitals Vital Signs Date Time Temp Pulse Resp B/P (MAP) Pulse Ox O2 Delivery O2 Flow Rate FiO2 09/27/17 09:29 Nasal Cannula 3.00 09/27/17 09:29 71 09/27/17 08:00 99.0 71 20 130/61 (84) 91 09/27/17 04:00 98.1 73 16 142/64 (90) 95 09/27/17 00:00 98.7 70 18 126/62 (83) 97 09/26/17 21:47 86 Nasal Cannula 09/26/17 21:00 Nasal Cannula 3.00 09/26/17 20:00 98.4 77 18 159/77 (104) 94 09/26/17 20:00 75 09/26/17 16:04 98.7 77 18 144/85 (104) 90 09/26/17 12:25 98.6 70 18 140/55 (83) 92 I/O 09/26/17 09/26/17 09/26/17 09/27/17 09/27/17 09/27/17 07:00 15:00 23:00 07:00 15:00 23:00 Intake Total 480 ml 0 ml 650 ml Balance 480 ml 0 ml 650 ml Intake Oral 480 ml 0 ml 650 ml # Voids 5 3 2 # Bowel Movements 2 1 1 (Eric Bertrand MD R3) Result Diagram: 09/27/17 0712 09/27/17 0712 Imaging Last 72 hours Impressions Consultation 09/26/17 0000 Signed Impressions: Service Date/Time: Danny, September 26, 2017 00:00 - CONCLUSION: The right perinephric abscess is not accessible percutaneously due to its anterior position. Daniel Portillo MD Objective Remarks GENERAL: Sitting up in bed, no distress SKIN: Very small stage 2 sacral ulcer, not examined today. HEAD: NC/AT EYES: No conjunctival injection or drainage. ENT: No nasal discharge, no oral secretions NECK: Supple, no lymphadenopathy. No JVD. CARDIOVASCULAR: RRR, systolic murmur 2/6, no rubs or gallops, pulses symmetrical. RESPIRATORY: CTAB. No crackles or wheezes. GASTROINTESTINAL: Abdomen soft, non-distended GENITOURINARY: CVA tenderness on right but improving MUSCULOSKELETAL: Extremities without clubbing, cyanosis, or edema. NEUROLOGICAL: Awake and alert. Finger to nose on left is improved, heel to roger on left improved. CN intact. Improving strength. Awake and alert. 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 Now with enlarging perinephric abscess. Urology on board. Also with initial delirium and finding of small acute vs. subacute infarction of left cortex of cerebellum. Neurology on board. Perinephric abscess drainage on 09/26. Discharge Planning Pending resolution of leukocytosis, results of cultures, stable clinically, perinephric abscess drainage. Will be discharged to [facility], in discussion with Kristin, dairy management specialist. (Eric Bertrand MD R3) Attending Attestation Dr bertrand and I reviewed EMR and Ct scan, Patient was interviewed and examined,I have reviewed the contents of this note Agree to Assessment and Plan, See Orders (French Salter MD) Problem List: (1) Emphysematous pyelonephritis ICD Codes: N12 - Tubulo-interstitial nephritis, not specified as acute or chronic Status: Acute Plan: White count trending back down Fever low grade on 09/26 Emphysematous pyelonephritis involving the right kidney, repeat CT on 09/20 showing continued severe emphysematous pyelonephritis on the right with increase in size of the perinephric abscess, quite large on CT Urology on board, she is status post ureteral stent on right. Recommend percutaneous drainage of abscess, but unfortunately was not able to drain abscess due to its location. Infectious disease also on board, helping to manage antibiotics. Blood culture positive for E.coli, urine with e.coli, colony counts improving. 09/22 urine culture with no growth 09/22 and 09/23 blood cultures NGTD - Continue Rocephin 2g IV Q24H (started 09/22) - Tylenol 650 mg every 6 hours PRN for flank pain. - Zofran 4 mg IV every 8 hours as needed for nausea and vomiting - Follow repeat blood and urine cultures. - Perinephric abscess drainage recommended but could not be done due to location. Defer to urology regarding next step to drain the abscess, may require surgery for drainage. - Continue to follow clinically and follow for fevers, leukocytosis, inflammatory markers. (2) Acute ischemic stroke ICD Codes: I63.9 - Cerebral infarction, unspecified Status: Acute Plan: MRI brain ordered 09/19 for altered mental status, some uncoordination with walking. Small acute versus subacute infarction of the left cerebellar cortex about 5 mm. Discussed finding with radiologist, Dr. Coley. He suggests that the infarction is anywhere from hours to several days old. He suggests that it does not correlate with her symptoms and is likely to not have any neurological effects given its location and size, likely came from an end artery as opposed to a major vessel. He suggests the possibility of a small septic emboli as the cause. Head MRA showing severe multi-vascular disease with occlusions and stenoses in multiple territories, suggesting possible embolic events. However, repeat brain MRI is the same as initial MRI, so not correlated with the findings on the MRA. TERRELL showed a PFO, but no vegetations. Carotid Doppler suggesting 50-60% stenosis of carotid arteries bilaterally. EEG with generalized slowing, likely encephalopathy. LE ultrasound to check for DVT (due to PFO) is negative. - Aspirin increased to 325 mg daily - On statin, continue gemfibrozil from home - Cardiac monitoring - Has bilateral SCD's and prophylactic heparin. - Restarted amlodipine, will resume lisinopril initially held for DELLA. - Neurology suggests not closing PFO. - Had long discussion with daughter and patient about anticoagulation given the PFO and possible embolization event. Daughter and patient both would like the treatment to consist only of aspirin for now. - Consulted neurology, cardiology (signed off), infectious disease, appreciate recommendations. (3) Stage 2 skin ulcer of sacral region ICD Codes: L89.152 - Pressure ulcer of sacral region, stage 2 Status: Chronic Plan: Very small stage 2 ulcer in sacral region. - Occlusive hydrocolloid dressing daily - Turn every 2 hours - Up in chair as much as possible - Monitor for progression (4) Elevated troponin ICD Codes: R74.8 - Abnormal levels of other serum enzymes Status: Acute Plan: Elevated troponin, but remained relatively flat. Cardiology consulted, suggesting likely demand mediated in the context of kidney disease. - May consider Lexiscan depending on recovery. (5) Diabetes mellitus ICD Codes: E11.9 - Type 2 diabetes mellitus without complications Status: Chronic Plan: Very poor control at home. A1C 12.2. Has not been taking her oral medications at home and not on insulin. Poor understanding of diabetes. Only on glipizide at home. - Low dose sliding scale insulin. - Levemir 10 units at night. - Glucose checks before meals and at bedtime - Diabetic diet - Consulted product safety associate - Consulted case management to assess possible reasons for poor compliance and attendance at office visits - Likely will need insulin at home (6) Hypertension Status: Chronic Plan: History of hypertension - Continue home dose of amlodipine and lisinopril - Vasotec PRN (7) Dyslipidemia ICD Codes: E78.5 - Dyslipidemia Status: Chronic Plan: Continue home gemfibrozil Started Pravastatin 40 mg daily (8) FEN/PPX Plan: Fluids: NPO in case of procedure today, defer to urology Electrolytes: Monitor and replace as needed, monitor renal function Nutrition: NPO in case of procedure procedure, diabetic diet after DVT: Heparin 5000 units subcutaneous 3 times a day (Holding for possible procedure, restart as soon as possible), bilateral SCD's CODE STATUS: Full code (Eric Bertrand MD R3) Eric Bertrand MD R3 Sep 27, 2017 11:04 French Salter MD Sep 28, 2017 15:35
--- NOTE | 2017-09-27 12:20 | HHI.PR ---
Subjective Patient symptoms today c/o flank pain, chills. denies fevers, nausea. Objective Vital Signs Vital Signs Date Time Temp Pulse Resp B/P (MAP) Pulse Ox O2 Delivery O2 Flow Rate FiO2 09/27/17 09:29 Nasal Cannula 3.00 09/27/17 09:29 71 09/27/17 08:00 99.0 71 20 130/61 (84) 91 09/27/17 04:00 98.1 73 16 142/64 (90) 95 09/27/17 00:00 98.7 70 18 126/62 (83) 97 09/26/17 21:47 86 Nasal Cannula 09/26/17 21:00 Nasal Cannula 3.00 09/26/17 20:00 98.4 77 18 159/77 (104) 94 09/26/17 20:00 75 09/26/17 16:04 98.7 77 18 144/85 (104) 90 09/26/17 12:25 98.6 70 18 140/55 (83) 92 Intake & Output 09/27/17 09/27/17 07:00 19:00 Intake Total 650 ml Balance 650 ml Intake Oral 650 ml # Voids 2 # Bowel Movements 1 Result Diagram: 09/27/1771109/27/1712 Objective Remarks NAD. shaky abd soft Right CVA tenderness Medications and IVs Current Medications Medications (Trade) Dose Ordered Sig/Alisha Route Start Time Stop Time Status Last Admin (NS Flush) 2 ml UNSCH PRN IV FLUSH 09/16/17 19:30 (NS Flush) 2 ml BID IV FLUSH 09/16/17 21:00 09/27/17 09:23 (Norvasc) 10 mg DAILY PO 09/17/17 09:00 Future hold 09/27/17 09:23 (Lopid) 300 mg BIDAC PO 09/17/17 07:00 09/26/17 16:45 (Prinivil) 40 mg DAILY PO 09/17/17 09:00 Future hold 09/27/17 09:23 (Narcan Inj) 0.4 mg UNSCH X1 PRN IV PUSH 09/16/17 20:15 10/16/17 20:14 (Zofran Inj) 4 mg Q8HR PRN IV PUSH 09/16/17 20:15 09/26/17 16:45 (Levemir Inj) 10 units Q12HR SQ 09/16/17 21:00 Future Hold 09/17/17 20:40 (NovoLOG INJ) 8 units TIDAC SQ 09/17/17 08:00 Future Hold 09/17/17 17:34 (D50w (Vial) Inj) 50 ml UNSCH PRN IV PUSH 09/16/17 20:15 (Glucagon Inj) 1 mg UNSCH PRN OTHER 09/16/17 20:15 (NovoLOG SUPPLEMENTAL SCALE) 1 ACHS SLIDING SCALE SQ 09/19/17 12:00 09/26/17 21:06 (Pravachol) 40 mg HS PO 09/19/17 21:00 09/26/17 21:05 (Heparin Inj) 5,000 units Q8HR SQ 09/22/17 14:00 Future Hold 09/25/17 06:36 (Aspirin) 325 mg DAILY PO 09/22/17 09:15 09/25/17 09:34 Ceftriaxone Sodium 2000 mg/ Sodium Chloride 100 ml @ 200 mls/hr Q24H IV 09/22/17 16:00 09/26/17 16:46 (Diflucan) 100 mg DAILY PO 09/22/17 15:00 09/29/17 14:59 09/27/17 09:23 (Apresoline) 25 mg Q8HR PRN PO 09/23/17 04:45 Future Hold (Levemir Inj) 10 units HS SQ 09/23/17 21:00 09/26/17 21:06 (Lactinex) 1 tab Q12HR PO 09/23/17 10:15 09/27/17 09:23 (Roxicodone) 5 mg Q8H PRN PO 09/23/17 12:00 09/27/17 09:23 (Tylenol) 650 mg Q6HR PO 09/23/17 12:00 09/27/17 12:16 (Trandate) 100 mg Q12HR PO 09/23/17 21:00 09/27/17 09:23 (Duoneb Neb) 1 ampule Q4HR NEB PRN NEB 09/24/17 09:30 09/26/17 21:43 (Vasotec Inj) 1.25 mg Q6H PRN IV PUSH 09/25/17 05:45 10/29/17 06:30 Assessment and Plan Problem List: (1) Emphysematous pyelonephritis ICD Code: N12 - Tubulo-interstitial nephritis, not specified as acute or chronic Status: Acute Assessment and Plan s/p cystoscopy, right ureteral stent insertion -NPO -To IR today for drainage of right perinephric abscess. D/W Dr. Smith, Shahram Rosario MD Sep 27, 2017 12:20
[2017-09-27] MEDS: DEXT 5%-NACL 0.45% 1000 ML INJ 1,000 ML IV SCH (14:15)
--- NOTE | 2017-09-27 14:21 | HHI.IDPN ---
Subjective Subjective Remarks Patient is a 67-year-old female, presented to the hospital complaining of three- day history of right-sided abdominal pain, and right flank pain. This was associated with nausea and vomiting as well as frequency and dysuria. She denies any hematuria. In the emergency room she was found to have a white count of 19,000. She has significant pyuria. Creatinine was also elevated. CT of the abdomen and pelvis showed evidence of air in the right kidney, right renal pelvis and also some air extending in the renal vein into the IVC. There is also a small amount of air seen in the hilum of the left kidney. There was some right hydronephrosis and ureter, but no kidney stones seen to cause obstruction. Patient has had prior history of bladder and kidney infection but not this severe. Patient also was found to have very high blood glucose. 2 blood cultures done and are now reported as growing gram-negative rods. Patient underwent surgery, and had cystoscopy and placement of a right ureteral stent. She has been afebrile since admission. Her white count remains elevated at 19,000. Infectious disease consultation has been requested to evaluate the patient with emphysematous pyelonephritis. Notes reviewed Temps low grade Did not have IR procedure yesterday - scheduled for today Still with R sided pain Last (+) BC 09/20 with E coli TERRELL with PFO WBC slightly lower Repeat UC negative Antibiotics I attest that I obtained, updated or reviewed the home and current medications. Rocephin Current Medications Medications (Trade) Dose Ordered Sig/Alisha Route Start Time Stop Time Status Last Admin (NS Flush) 2 ml UNSCH PRN IV FLUSH 09/16/17 19:30 (NS Flush) 2 ml BID IV FLUSH 09/16/17 21:00 09/27/17 09:23 (Norvasc) 10 mg DAILY PO 09/17/17 09:00 Future hold 09/27/17 09:23 (Lopid) 300 mg BIDAC PO 09/17/17 07:00 09/26/17 16:45 (Prinivil) 40 mg DAILY PO 09/17/17 09:00 Future hold 09/27/17 09:23 (Narcan Inj) 0.4 mg UNSCH X1 PRN IV PUSH 09/16/17 20:15 10/16/17 20:14 (Zofran Inj) 4 mg Q8HR PRN IV PUSH 09/16/17 20:15 09/26/17 16:45 (Levemir Inj) 10 units Q12HR SQ 09/16/17 21:00 Future Hold 09/17/17 20:40 (NovoLOG INJ) 8 units TIDAC SQ 09/17/17 08:00 Future Hold 09/17/17 17:34 (D50w (Vial) Inj) 50 ml UNSCH PRN IV PUSH 09/16/17 20:15 (Glucagon Inj) 1 mg UNSCH PRN OTHER 09/16/17 20:15 (NovoLOG SUPPLEMENTAL SCALE) 1 ACHS SLIDING SCALE SQ 09/19/17 12:00 09/26/17 21:06 (Pravachol) 40 mg HS PO 09/19/17 21:00 09/26/17 21:05 (Heparin Inj) 5,000 units Q8HR SQ 09/22/17 14:00 Future Hold 09/25/17 06:36 (Aspirin) 325 mg DAILY PO 09/22/17 09:15 09/25/17 09:34 Ceftriaxone Sodium 2000 mg/ Sodium Chloride 100 ml @ 200 mls/hr Q24H IV 09/22/17 16:00 09/26/17 16:46 (Diflucan) 100 mg DAILY PO 09/22/17 15:00 09/29/17 14:59 09/27/17 09:23 (Apresoline) 25 mg Q8HR PRN PO 09/23/17 04:45 Future Hold (Levemir Inj) 10 units HS SQ 09/23/17 21:00 09/26/17 21:06 (Lactinex) 1 tab Q12HR PO 09/23/17 10:15 09/27/17 09:23 (Roxicodone) 5 mg Q8H PRN PO 09/23/17 12:00 09/27/17 09:23 (Tylenol) 650 mg Q6HR PO 09/23/17 12:00 09/27/17 12:16 (Trandate) 100 mg Q12HR PO 09/23/17 21:00 09/27/17 09:23 (Duoneb Neb) 1 ampule Q4HR NEB PRN NEB 09/24/17 09:30 09/26/17 21:43 (Vasotec Inj) 1.25 mg Q6H PRN IV PUSH 09/25/17 05:45 09/25/17 06:30 Dextrose/Sodium Chloride 1,000 ml @ 125 mls/hr Q8H IV 09/27/17 12:30 09/27/17 14:15 Lines PIV Past Medical History Diabetes HTN Hypertriglyceridemia CAD Previous episodes of UTI Past Surgical History Caesarian section Allergies: Coded Allergies: metformin (Unverified Allergy, Severe, Numbness, 07/12/17) clonidine (Unverified Allergy, Unknown, 07/12/17) Objective . Vital Signs Date Time Temp Pulse Resp B/P (MAP) Pulse Ox O2 Delivery O2 Flow Rate FiO2 09/27/17 09:29 Nasal Cannula 3.00 09/27/17 09:29 71 09/27/17 09:28 95 Nasal Cannula 3.00 09/27/17 08:00 99.0 71 20 130/61 (84) 91 09/27/17 04:00 98.1 73 16 142/64 (90) 95 09/27/17 00:00 98.7 70 18 126/62 (83) 97 09/26/17 21:47 86 Nasal Cannula 09/26/17 21:00 Nasal Cannula 3.00 09/26/17 20:00 98.4 77 18 159/77 (104) 94 09/26/17 20:00 75 09/26/17 16:04 98.7 77 18 144/85 (104) 90 . Laboratory Tests Test 09/26/17 06:18 09/27/17 07:12 White Blood Count 16.4 TH/MM3 14.1 TH/MM3 Red Blood Count 2.97 MIL/MM3 2.78 MIL/MM3 Hemoglobin 8.6 GM/DL 8.0 GM/DL Hematocrit 26.2 % 24.7 % Mean Corpuscular Volume 88.3 FL 88.8 FL Mean Corpuscular Hemoglobin 29.0 PG 29.0 PG Mean Corpuscular Hemoglobin Concent 32.8 % 32.6 % Red Cell Distribution Width 14.5 % 14.6 % Platelet Count 629 TH/MM3 634 TH/MM3 Mean Platelet Volume 7.7 FL 7.6 FL Laboratory Tests Test 09/26/17 06:18 09/27/17 07:12 Blood Urea Nitrogen 20 MG/DL 19 MG/DL Creatinine 1.19 MG/DL 1.14 MG/DL Random Glucose 125 MG/DL 105 MG/DL Calcium Level 8.2 MG/DL 8.1 MG/DL Sodium Level 135 MEQ/L 138 MEQ/L Potassium Level 3.5 MEQ/L 3.3 MEQ/L Chloride Level 103 MEQ/L 104 MEQ/L Carbon Dioxide Level 21.8 MEQ/L 22.7 MEQ/L Anion Gap 10 MEQ/L 11 MEQ/L Estimat Glomerular Filtration Rate 55 ML/MIN 58 ML/MIN Imaging Abdomen/Pelvis CT 09/16/17 0000 Signed Impressions: Service Date/Time: Saturday, September 16, 2017 17:27 - CONCLUSION: 1. 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 No obstructing stone or mass observed. Air is seen throughout the right kidney parenchyma, collecting system, and into the renal vein. A small amount of air is seen involving the upper pole of the left kidney near the hilum likely extension from air within the inferior vena cava. There is mild hydronephrosis and hydroureter on the right. No obstruction on the left. Corey Millan Jr., MD Physical Exam GENERAL: awake, and alert, NAD SKIN: Warm and dry. No generalized rash HEAD: Atraumatic. Normocephalic. No temporal wasting, or tenderness. EYES: [place] conjunctiva. No petechia or hemorrhage. Pupils equal, round and reactive to light. No scleral icterus. No injection or drainage. EARS, NOSE AND THROAT: Nose without bleeding or purulent nasal discharge. Mucous membranes pink and moist. No oral lesions noted. NECK: Trachea midline. Supple and not tender, no meningeal signs. No nuchal rigidity. CARDIOVASCULAR: Regular rate and rhythm. No murmurs, rubs or gallops heard RESPIRATORY: Clear to auscultation. Breath sounds equal bilaterally. No rales , wheezing or rhonchi ABDOMEN: Soft, nondistended, bowel sounds present and normoactive. Tenderness on R side, but no guarding. No rebound. NEUROLOGICAL: Non-focal PSYCHIATRIC: Normal affect, calm and cooperative. LINE: No evidence of infection Assessment & Plan Remarks IMPRESSION E coli sepsis due to emphysematous pyelonephritis on R, worse on last CT - S/P cysto and R ureteral stent placement - CT with progression of air (per urology, it will take a while for air to resolve) - repeat UC with lower colony count E coli, WBC down to normal - has new (+) BC TERRELL with PFO Renal insufficiency Diabetes, poorly controlled Leukocytosis, worsening due to progression of infection in her R kidney Lethargy, resolved - ?could still be from sepsis, ?relative hypoglycemia - ?due to Zosyn RECOMMENDATION Continue IV Rocephin Follow C/S To have drain placed in her R kidney today Continue Diflucan Follow CBC Monitor temps Monitor progress Explained caro to patient Ann Hoffmann MD Sep 27, 2017 14:21
[2017-09-27] MEDS ORDERED: MIDAZOLAM HCL 2 MG/2 ML VIAL ONE ×2 (14:43→15:55)
[2017-09-27] MEDS ORDERED: LIDOCAINE 1%/EPINEPHrine 1:100,000 SOLN 20 ML VIAL ONE (15:08)
--- NOTE | 2017-09-27 17:00 | RADRPT ---
EXAM DATE/TIME: 09/27/2017 15:35 [facility] COMPARISON: No previous studies available for comparison. INDICATIONS : Right perirenal abscess. SEDATION TIME: 30 minutes MEDICATION(S): 1.) 4 mg midazolam (Versed) IV 2.) 200 mcg fentanyl (Sublimaze) IV DEVICE(S): 1.) 8 Fr Skater MEDICAL HISTORY : Diabetes mellitus type 2. Renal insufficiency, chronic. Methicillin-resistant Staphylococcus aureus. SURGICAL HISTORY : section. ENCOUNTER: Initial ACUITY: 1 day PAIN SCORE: 6/10 LOCATION: Right flank PROCEDURE : 1. CT guided drainage of the right perinephric abscess drainage and placement of 8 Serbian locking pi gtail catheter. 2. Conscious sedation with continuous EKG and oximetry monitoring. The risks, benefits and alternatives to the procedure were explained and verbal and written consent w as obtained. Using automated exposure control and adjustment of the mA and/or kV according to patient size, radiation dose was kept as low as reasonably achievable to obtain optimal diagnostic quality i mages. The site was prepped in sterile fashion. Full sterile technique was used, including cap, ma sk, sterile gloves and gown and a large sterile sheet. Hand hygiene and 2% chlorhexidine and/or beta dine/alcohol prep was utilized per protocol for cutaneous antisepsis. The skin and subcutaneous tiss ues were infiltrated with local anesthetic solution. DICOM format image data is available electronic ally for review and comparison. Using CT guidance the prescribed site was localized. Drainage was performed using the prescribed cat heter. Approximately 150 cc cloudy, pink, pus-like fluid was drained. The patient tolerated the procedure well and there were no complications. Conscious sedation was per formed with the prescribed dosages and duration as above in the presence of an independent trained ra diology nurse to assist in the monitoring of the patient. EKG and oximetry remained stable throughou t the procedure. The patient tolerated the procedure well and there were no complications. The patient was sent to pos t anesthesia recovery in stable condition. CONCLUSION: Uncomplicated CT-guided drainage of right perinephric abscess with placement of 8 Serbian locking pigt ail catheter yielding approximately 150 cc of cloudy, pink, pus-like fluid which was sent for culture and sensitivity. Daniel Portillo MD on September 27, 2017 at 16:54 Board Certified Radiologist. This report was verified electronically.
[2017-09-27] MEDS: cefTRIAXone INJ 2,000 MG in SODIUM CHLORIDE 0.9% INJ 100 ML IV SCH (17:32)
[2017-09-27] MEDS: PRAVASTATIN SOD 40 MG TAB PO SCH (21:27)
[2017-09-27] MEDS: INSULIN DETEMIR 100 UNITS/ML VIAL SQ SCH (21:28)
[2017-09-28] VITALS (9 sets, daily range): BP systolic 120–158; BP diastolic 58–68; PULSE 60–76; RESP 12–18; TEMP 97.6–98.7; O2SAT 92–97
[2017-09-28] MEDS: DEXT 5%-NACL 0.45% 1000 ML INJ 1,000 ML IV SCH (01:33)
[2017-09-28] MEDS: ACETAMINOPHEN 325 MG TAB PO SCH ×5 (01:33→23:17)
[2017-09-28] MEDS: GEMFIBROZIL 600 MG TAB PO SCH ×2 (06:05→16:43)
[2017-09-28 07:41] LABS: HEMATOCRIT 23.5 % (35.0-46.0); MEAN CELL VOLUME 89.7 FL (80.0-100.0); MEAN CORPUSCULAR HEMOGLOBIN 29.5 PG (27.0-34.0); MEAN CORPUSCULAR HGB CONC 32.9 % (32.0-36.0); PLATELET COUNT 628 TH/MM3 (150-450); RED BLOOD COUNT 2.62 MIL/MM3 (4.00-5.30); RED CELL DISTRIBUTION WIDTH 15.1 % (11.6-17.2); REVIEW FLAG FINAL; WHITE BLOOD COUNT 12.5 TH/MM3 (4.0-11.0)
[2017-09-28] MEDS: INSULIN ASPART SUPPLEMENTAL SCALE SQ SCH ×4 (08:00→20:53)
[2017-09-28] MEDS: LACTOBACILLUS ACIDOPHILUS TAB PO SCH ×2 (08:25→20:48)
[2017-09-28] MEDS: LABETALOL HCL 100 MG TAB PO SCH ×2 (08:25→20:48)
[2017-09-28] MEDS: FLUCONAZOLE 100 MG TAB PO SCH (08:25)
[2017-09-28] MEDS: LISINOPRIL 20 MG TAB PO SCH (08:25)
[2017-09-28] MEDS: ASPIRIN 325 MG TAB PO SCH (08:26)
[2017-09-28] MEDS: SODIUM CHLORIDE 0.9% FLUSH 10 ML FLUSH IV FLUSH SCH ×2 (08:29→20:56)
[2017-09-28 08:30] LABS: WESTERGREN SEDIMENTATION RATE GREATER THAN 140 mm/hr (0-30)
[2017-09-28 08:35] LABS: BICARBONATE 21.6 MEQ/L (21.0-32.0); POTASSIUM 3.3 MEQ/L (3.5-5.1)
[2017-09-28] MEDS ORDERED: POTASSIUM CHLORIDE 10 MEQ CONTROLLED RELEASE TAB PO ONE (09:00)
--- NOTE | 2017-09-28 10:31 | HHI.FPPN ---
Subjective Remarks Resting in bed, no distress, in good spirits. Had nephrostomy tube placement yesterday without complication. 5 oz of pink fluid drained from perinephric abscess. Minimal drainage this morning. Right flank pain is improved. She is afebrile and white count is trending down. Her hgb is also trending down, will continue to monitor and order iron studies and Hemoccult test. Continuing to work with physical therapy. She gets some shortness of breath when she walks. Encouraged use of her incentive spirometer. No chest pain, abdominal pain, nausea, vomiting, diarrhea, has good appetite, no calf tenderness. (Eric Bertrand MD R3) Objective Vitals Vital Signs Date Time Temp Pulse Resp B/P (MAP) Pulse Ox O2 Delivery O2 Flow Rate FiO2 09/28/17 04:00 97.6 60 18 120/58 (78) 94 09/28/17 00:00 97.7 68 18 158/68 (98) 96 09/27/17 20:35 Nasal Cannula 2.00 09/27/17 20:00 68 09/27/17 20:00 98.1 65 16 123/58 (79) 97 09/27/17 20:00 Nasal Cannula 3.00 09/27/17 17:40 98.0 66 16 138/63 (88) 96 09/27/17 17:00 62 16 135/74 (94) 93 09/27/17 16:45 63 16 139/71 (93) 94 09/27/17 16:30 98.8 65 16 133/71 (91) 92 I/O 09/27/17 09/27/17 09/27/17 09/28/17 09/28/17 09/28/17 07:00 15:00 23:00 07:00 15:00 23:00 Intake Total 650 ml 240 ml 1600 ml Output Total 900 ml 50 ml Balance 650 ml -660 ml 1550 ml Intake Oral 650 ml 240 ml 600 ml IV Total 1000 ml Output Urine Total 800 ml Drainage Total 100 ml 50 ml # Voids 2 2 # Bowel Movements 1 0 0 (Eric Bertrand MD R3) Result Diagram: 09/28/17 0700 09/28/17 0700 Imaging Last 72 hours Impressions Retroperitoneal Abscess Drainage 09/27/17 0000 Signed Impressions: Service Date/Time: Wednesday, September 27, 2017 15:35 - CONCLUSION: Uncomplicated CT-guided drainage of right perinephric abscess with placement of 8 Hebrew locking pigtail catheter yielding approximately 150 cc of cloudy, pink, pus- like fluid which was sent for culture and sensitivity. Daniel Portillo MD Consultation 09/26/17 0000 Signed Impressions: Service Date/Time: Tuesday, September 26, 2017 00:00 - CONCLUSION: The right perinephric abscess is not accessible percutaneously due to its anterior position. Daniel Portillo MD Objective Remarks GENERAL: Resting in bed, smiling SKIN: Very small stage 2 sacral ulcer, not examined today. HEAD: NC/AT EYES: No conjunctival injection or drainage. ENT: No nasal discharge, no oral secretions NECK: Supple, no lymphadenopathy. No JVD. CARDIOVASCULAR: RRR, systolic murmur 2/6, no rubs or gallops, pulses symmetrical. RESPIRATORY: CTAB. No crackles or wheezes. GASTROINTESTINAL: Abdomen soft, non-distended GENITOURINARY: CVA tenderness on right improved after nephrostomy tube MUSCULOSKELETAL: Extremities without clubbing, cyanosis, or edema. NEUROLOGICAL: Awake and alert. 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 Now with enlarging perinephric abscess. Urology on board. Also with initial delirium and finding of small acute vs. subacute infarction of left cortex of cerebellum. Neurology on board. Perinephric abscess drainage on 09/[address]. Discharge Planning Pending resolution of leukocytosis, results of cultures, stable clinically, perinephric abscess drainage. Will be discharged to [facility], in discussion with Kristin, rn admissions. (Eric Bertrand MD R3) Attending Attestation Dr bertrand and I reviewed EMR , Patient was interviewed and examined,I have reviewed the contents of this note Agree to Assessment and Plan, See Orders gram neg trupti growind out of aspirate (French Salter MD) Problem List: (1) Emphysematous pyelonephritis ICD Codes: N12 - Tubulo-interstitial nephritis, not specified as acute or chronic Status: Acute Plan: White count trending down Platelets elevated, trending down Fever low grade on 09/26, afebrile since Emphysematous pyelonephritis involving the right kidney, repeat CT on 09/20 showing continued severe emphysematous pyelonephritis on the right with increase in size of the perinephric abscess, quite large on CT Urology on board, she is status post ureteral stent on right. Catheter placed into perinephric abscess on 09/27 Infectious disease also on board, helping to manage antibiotics. Blood culture positive for E.coli, urine with e.coli, colony counts improving. 09/22 urine culture with no growth 09/22 and 09/23 blood cultures NG - Continue Rocephin 2g IV Q24H (started 09/22) - Continue Diflucan 100 mg daily (started 09/22) - Tylenol 650 mg every 6 hours PRN for flank pain. - Zofran 4 mg IV every 8 hours as needed for nausea and vomiting - Perinephric abscess drainage recommended but could not be done due to location. Defer to urology regarding next step to drain the abscess, may require surgery for drainage. - Continue to follow clinically and follow for fevers, leukocytosis, inflammatory markers. (2) Acute ischemic stroke ICD Codes: I63.9 - Cerebral infarction, unspecified Status: Acute Plan: MRI brain ordered 09/19 for altered mental status, some uncoordination with walking. Small acute versus subacute infarction of the left cerebellar cortex about 5 mm. Discussed finding with radiologist, Dr. Coley. He suggests that the infarction is anywhere from hours to several days old. He suggests that it does not correlate with her symptoms and is likely to not have any neurological effects given its location and size, likely came from an end artery as opposed to a major vessel. He suggests the possibility of a small septic emboli as the cause. Head MRA showing severe multi-vascular disease with occlusions and stenoses in multiple territories, suggesting possible embolic events. However, repeat brain MRI is the same as initial MRI, so not correlated with the findings on the MRA. TERRELL showed a PFO, but no vegetations. Carotid Doppler suggesting 50-60% stenosis of carotid arteries bilaterally. EEG with generalized slowing, likely encephalopathy. LE ultrasound to check for DVT (due to PFO) is negative. - Aspirin 325 mg daily - On statin, continue gemfibrozil from home - Cardiac monitoring - Has bilateral SCD's and prophylactic heparin. - Restarted amlodipine, lisinopril - Neurology suggests not closing PFO. - Had long discussion with daughter and patient about anticoagulation given the PFO and possible embolization event. Daughter and patient both would like the treatment to consist only of aspirin for now. - Consulted neurology, cardiology (signed off), infectious disease, appreciate recommendations. (3) Stage 2 skin ulcer of sacral region ICD Codes: L89.152 - Pressure ulcer of sacral region, stage 2 Status: Chronic Plan: Very small stage 2 ulcer in sacral region. - Occlusive hydrocolloid dressing daily - Turn every 2 hours - Up in chair as much as possible - Monitor for progression (4) Elevated troponin ICD Codes: R74.8 - Abnormal levels of other serum enzymes Status: Acute Plan: Elevated troponin, but remained relatively flat. Cardiology consulted, suggesting likely demand mediated in the context of kidney disease. - May consider Lexiscan depending on recovery. (5) Diabetes mellitus ICD Codes: E11.9 - Type 2 diabetes mellitus without complications Status: Chronic Plan: Very poor control at home. A1C 12.2. Has not been taking her oral medications at home and not on insulin. Poor understanding of diabetes. Only on glipizide at home. - Low dose sliding scale insulin. - Levemir 10 units at night. - Glucose checks before meals and at bedtime - Diabetic diet - Consulted educator senior clinical - Consulted case management to assess possible reasons for poor compliance and attendance at office visits - Likely will need insulin at home (6) Hypertension Status: Chronic Plan: History of hypertension - Continue home dose of amlodipine and lisinopril - Vasotec PRN (7) Dyslipidemia ICD Codes: E78.5 - Dyslipidemia Status: Chronic Plan: Continue home gemfibrozil Started Pravastatin 40 mg daily (8) FEN/PPX Plan: Fluids: PO Electrolytes: Monitor and replace as needed, monitor renal function Nutrition: Renal diet DVT: Heparin 5000 units subcutaneous 3 times a day resumed after procedure CODE STATUS: Full code (Eric Bertrand MD R3) Eric Bertrand MD R3 Sep 28, 2017 10:31 French Salter MD Sep 28, 2017 15:45
--- NOTE | 2017-09-28 11:50 | HHI.IDPN ---
Subjective Subjective Remarks Patient is a 67-year-old female, presented to the hospital complaining of three- day history of right-sided abdominal pain, and right flank pain. This was associated with nausea and vomiting as well as frequency and dysuria. She denies any hematuria. In the emergency room she was found to have a white count of 19,000. She has significant pyuria. Creatinine was also elevated. CT of the abdomen and pelvis showed evidence of air in the right kidney, right renal pelvis and also some air extending in the renal vein into the IVC. There is also a small amount of air seen in the hilum of the left kidney. There was some right hydronephrosis and ureter, but no kidney stones seen to cause obstruction. Patient has had prior history of bladder and kidney infection but not this severe. Patient also was found to have very high blood glucose. 2 blood cultures done and are now reported as growing gram-negative rods. Patient underwent surgery, and had cystoscopy and placement of a right ureteral stent. She has been afebrile since admission. Her white count remains elevated at 19,000. Infectious disease consultation has been requested to evaluate the patient with emphysematous pyelonephritis. Notes reviewed Temps better Has drain in R kidney C/S fluid pending Still with R sided pain Last (+) BC 09/20 with E coli TERRELL with PFO WBC lower Repeat UC negative Antibiotics I attest that I obtained, updated or reviewed the home and current medications. Rocephin Current Medications Medications (Trade) Dose Ordered Sig/Alisha Route Start Time Stop Time Status Last Admin (NS Flush) 2 ml UNSCH PRN IV FLUSH 09/16/17 19:30 (NS Flush) 2 ml BID IV FLUSH 09/16/17 21:00 09/28/17 08:29 (Norvasc) 10 mg DAILY PO 09/17/17 09:00 Future hold 09/28/17 08:25 (Lopid) 300 mg BIDAC PO 09/17/17 07:00 09/28/17 06:05 (Prinivil) 40 mg DAILY PO 09/17/17 09:00 Future hold 09/28/17 08:25 (Narcan Inj) 0.4 mg UNSCH X1 PRN IV PUSH 09/16/17 20:15 10/16/17 20:14 (Zofran Inj) 4 mg Q8HR PRN IV PUSH 09/16/17 20:15 09/26/17 16:45 (NovoLOG INJ) 8 units TIDAC SQ 09/17/17 08:00 Future Hold 09/17/17 17:34 (D50w (Vial) Inj) 50 ml UNSCH PRN IV PUSH 09/16/17 20:15 (Glucagon Inj) 1 mg UNSCH PRN OTHER 09/16/17 20:15 (NovoLOG SUPPLEMENTAL SCALE) 1 ACHS SLIDING SCALE SQ 09/19/17 12:00 09/28/17 08:00 (Pravachol) 40 mg HS PO 09/19/17 21:00 09/27/17 21:27 (Heparin Inj) 5,000 units Q8HR SQ 09/22/17 14:00 Future hold 09/25/17 06:36 (Aspirin) 325 mg DAILY PO 09/22/17 09:15 09/28/17 08:26 Ceftriaxone Sodium 2000 mg/ Sodium Chloride 100 ml @ 200 mls/hr Q24H IV 09/22/17 16:00 09/27/17 17:32 (Diflucan) 100 mg DAILY PO 09/22/17 15:00 09/29/17 14:59 09/28/17 08:25 (Apresoline) 25 mg Q8HR PRN PO 09/23/17 04:45 Future Hold (Levemir Inj) 10 units HS SQ 09/23/17 21:00 09/27/17 21:28 (Lactinex) 1 tab Q12HR PO 09/23/17 10:15 09/28/17 08:25 (Roxicodone) 5 mg Q8H PRN PO 09/23/17 12:00 09/28/17 01:33 (Tylenol) 650 mg Q6HR PO 09/23/17 12:00 09/28/17 06:05 (Trandate) 100 mg Q12HR PO 09/23/17 21:00 09/28/17 08:25 (Duoneb Neb) 1 ampule Q4HR NEB PRN NEB 09/24/17 09:30 09/26/17 21:43 (Vasotec Inj) 1.25 mg Q6H PRN IV PUSH 09/25/17 05:45 09/25/17 06:30 Lines PIV Past Medical History Diabetes HTN Hypertriglyceridemia CAD Previous episodes of UTI Past Surgical History Caesarian section Allergies: Coded Allergies: metformin (Unverified Allergy, Severe, Numbness, 07/12/17) clonidine (Unverified Allergy, Unknown, 07/12/17) Objective . Vital Signs Date Time Temp Pulse Resp B/P (MAP) Pulse Ox O2 Delivery O2 Flow Rate FiO2 09/28/17 04:00 97.6 60 18 120/58 (78) 94 09/28/17 00:00 97.7 68 18 158/68 (98) 96 09/27/17 20:35 Nasal Cannula 2.00 09/27/17 20:00 68 09/27/17 20:00 98.1 65 16 123/58 (79) 97 09/27/17 20:00 Nasal Cannula 3.00 09/27/17 17:40 98.0 66 16 138/63 (88) 96 09/27/17 17:00 62 16 135/74 (94) 93 09/27/17 16:45 63 16 139/71 (93) 94 09/27/17 16:30 98.8 65 16 133/71 (91) 92 . Laboratory Tests Test 09/27/17 07:12 09/28/17 07:00 White Blood Count 14.1 TH/MM3 12.5 TH/MM3 Red Blood Count 2.78 MIL/MM3 2.62 MIL/MM3 Hemoglobin 8.0 GM/DL 7.7 GM/DL Hematocrit 24.7 % 23.5 % Mean Corpuscular Volume 88.8 FL 89.7 FL Mean Corpuscular Hemoglobin 29.0 PG 29.5 PG Mean Corpuscular Hemoglobin Concent 32.6 % 32.9 % Red Cell Distribution Width 14.6 % 15.1 % Platelet Count 634 TH/MM3 628 TH/MM3 Mean Platelet Volume 7.6 FL 7.7 FL Erythrocyte Sedimentation Rate GREATER THAN 140 mm/hr Laboratory Tests Test 09/27/17 07:12 09/28/17 07:00 Blood Urea Nitrogen 19 MG/DL 17 MG/DL Creatinine 1.14 MG/DL 1.11 MG/DL Random Glucose 105 MG/DL 242 MG/DL Calcium Level 8.1 MG/DL 8.2 MG/DL Sodium Level 138 MEQ/L 134 MEQ/L Potassium Level 3.3 MEQ/L 3.3 MEQ/L Chloride Level 104 MEQ/L 102 MEQ/L Carbon Dioxide Level 22.7 MEQ/L 21.6 MEQ/L Anion Gap 11 MEQ/L 10 MEQ/L Estimat Glomerular Filtration Rate 58 ML/MIN 60 ML/MIN C-Reactive Protein 25.00 MG/DL Microbiology Date/Time Source Procedure Growth Status 09/27/17 16:00 Fluid Other Gram Stain - Final Resulted 09/27/17 16:00 Fluid Other Body Fluid Culture Pending Resulted Imaging Abdomen/Pelvis CT 09/16/17 0000 Signed Impressions: Service Date/Time: Saturday, September 16, 2017 17:27 - CONCLUSION: 1. 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 No obstructing stone or mass observed. Air is seen throughout the right kidney parenchyma, collecting system, and into the renal vein. A small amount of air is seen involving the upper pole of the left kidney near the hilum likely extension from air within the inferior vena cava. There is mild hydronephrosis and hydroureter on the right. No obstruction on the left. Corey Millan Jr., MD Physical Exam GENERAL: awake, and alert, NAD SKIN: Warm and dry. No generalized rash HEAD: Atraumatic. Normocephalic. No temporal wasting, or tenderness. EYES: [place] conjunctiva. No petechia or hemorrhage. Pupils equal, round and reactive to light. No scleral icterus. EARS, NOSE AND THROAT: Nose without bleeding or purulent nasal discharge. Mucous membranes pink and moist. No oral lesions noted. NECK: Trachea midline. Supple and not tender, no meningeal signs. No nuchal rigidity. CARDIOVASCULAR: Regular rate and rhythm. No murmurs, rubs or gallops heard RESPIRATORY: Clear to auscultation. Breath sounds equal bilaterally. No rales , wheezing or rhonchi ABDOMEN: Soft, nondistended, bowel sounds present and normoactive. Tenderness on R side, but no guarding. No rebound. NEUROLOGICAL: Non-focal PSYCHIATRIC: Normal affect, calm and cooperative. LINE: No evidence of infection Assessment & Plan Remarks IMPRESSION E coli sepsis due to emphysematous pyelonephritis on R, worse on last CT - S/P cysto and R ureteral stent placement - CT with progression of air (per urology, it will take a while for air to resolve) - repeat UC with lower colony count E coli, WBC down to normal - has new (+) BC TERRELL with PFO Renal insufficiency Diabetes, poorly controlled Leukocytosis, worsening due to progression of infection in her R kidney Lethargy, resolved - ?could still be from sepsis, ?relative hypoglycemia - ?due to Zosyn RECOMMENDATION Continue IV Rocephin Follow new C/S Continue Diflucan Follow CBC Monitor temps Monitor progress Explained plan to patient Ann Hoffmann MD Sep 28, 2017 11:50
[2017-09-28] MEDS: HEPARIN SODIUM - SQ 10,000 UNITS/ML VIAL SQ SCH ×2 (13:28→20:52)
[2017-09-28] MEDS: cefTRIAXone INJ 2,000 MG in SODIUM CHLORIDE 0.9% INJ 100 ML IV SCH (16:46)
[2017-09-28] MEDS: INSULIN DETEMIR 100 UNITS/ML VIAL SQ SCH (20:47)
[2017-09-28] MEDS: PRAVASTATIN SOD 40 MG TAB PO SCH (20:48)
[2017-09-29] VITALS (8 sets, daily range): BP systolic 119–164; BP diastolic 61–75; PULSE 55–78; RESP 18–20; TEMP 97.8–98.8; O2SAT 76–97
[2017-09-29] MEDS: HEPARIN SODIUM - SQ 10,000 UNITS/ML VIAL SQ SCH ×3 (05:43→20:18)
[2017-09-29] MEDS: GEMFIBROZIL 600 MG TAB PO SCH ×2 (05:43→15:30)
[2017-09-29] MEDS: ACETAMINOPHEN 325 MG TAB PO SCH ×4 (05:43→23:02)
[2017-09-29] MEDS: INSULIN ASPART SUPPLEMENTAL SCALE SQ SCH ×4 (08:00→20:18)
[2017-09-29] MEDS: LISINOPRIL 20 MG TAB PO SCH (08:28)
[2017-09-29] MEDS: LACTOBACILLUS ACIDOPHILUS TAB PO SCH ×2 (08:28→20:16)
[2017-09-29] MEDS: ASPIRIN 325 MG TAB PO SCH (08:29)
[2017-09-29] MEDS: FLUCONAZOLE 100 MG TAB PO SCH (08:29)
[2017-09-29] MEDS: LABETALOL HCL 100 MG TAB PO SCH ×2 (08:29→20:32)
[2017-09-29] MEDS: SODIUM CHLORIDE 0.9% FLUSH 10 ML FLUSH IV FLUSH SCH ×2 (08:43→20:16)
[2017-09-29 09:14] LABS: HEMATOCRIT 21.9 % (35.0-46.0); MEAN CELL VOLUME 90.5 FL (80.0-100.0); MEAN CORPUSCULAR HEMOGLOBIN 29.6 PG (27.0-34.0); MEAN CORPUSCULAR HGB CONC 32.7 % (32.0-36.0); PLATELET COUNT 637 TH/MM3 (150-450); RED BLOOD COUNT 2.42 MIL/MM3 (4.00-5.30); RED CELL DISTRIBUTION WIDTH 14.8 % (11.6-17.2); REVIEW FLAG FINAL; WHITE BLOOD COUNT 11.8 TH/MM3 (4.0-11.0)
[2017-09-29 09:58] LABS: ANION GAP 10 MEQ/L (5-15); BLOOD UREA NITROGEN 18 MG/DL (7-18); CHLORIDE 104 MEQ/L (98-107); GLOMERULAR FILTRATION RATE 56 ML/MIN (>89); POTASSIUM 3.8 MEQ/L (3.5-5.1); SODIUM (NA) 136 MEQ/L (136-145)
[2017-09-29 10:02] LABS: FERRITIN 1081 NG/ML (8-252); TRANSFERRIN IRON PROFILE 147 MG/DL (200-360)
[2017-09-29 13:30] LABS: HEMATOCRIT 22.6 % (35.0-46.0); REVIEW FLAG FINAL
--- NOTE | 2017-09-29 13:38 | HHI.FPPN ---
Subjective Remarks Patient doing well this morning with no complaints. No fevers overnight. White count continuing to trend down. Hgb trending down, to 7.3 today. Hemoccult negative, patient reports no bleeding. Feels slightly lightheaded with standing. (Eric Bertrand MD R3) Objective Vitals Vital Signs Date Time Temp Pulse Resp B/P (MAP) Pulse Ox O2 Delivery O2 Flow Rate FiO2 09/29/17 04:00 97.8 65 18 130/61 (84) 96 09/29/17 00:00 97.8 72 20 158/72 (100) 93 09/28/17 19:47 98.7 68 12 131/62 (85) 96 09/28/17 19:45 Nasal Cannula 3.00 21 09/28/17 19:45 68 09/28/17 19:00 20 09/28/17 16:05 98.6 67 18 138/61 (86) 92 09/28/17 16:00 97.8 72 16 148/66 (93) 92 I/O 09/28/17 09/28/17 09/28/17 09/29/17 09/29/17 09/29/17 07:00 15:00 23:00 07:00 15:00 23:00 Intake Total 1600 ml 1799 ml 600 ml Output Total 50 ml 60 ml Balance 1550 ml 1739 ml 600 ml Intake Oral 600 ml 1624 ml 600 ml IV Total 1000 ml 175 ml Drainage Total 50 ml 60 ml # Voids 2 5 6 # Bowel Movements 0 4 2 (Eric Bertrand MD R3) Result Diagram: 09/29/17 1301 09/29/17 0820 Objective Remarks GENERAL: Resting in bed, smiling, good spirits, not in pain or distress SKIN: Very small stage 2 sacral ulcer, not examined today. HEAD: NC/AT EYES: No conjunctival injection or drainage. ENT: No nasal discharge, no oral secretions NECK: Supple, no lymphadenopathy. No JVD. CARDIOVASCULAR: RRR, systolic murmur 2/6, no rubs or gallops, pulses symmetrical. RESPIRATORY: CTAB. No crackles or wheezes. GASTROINTESTINAL: Abdomen soft, non-distended GENITOURINARY: CVA tenderness on right improved after nephrostomy tube MUSCULOSKELETAL: Extremities without clubbing, cyanosis, or edema. NEUROLOGICAL: Awake and alert. 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 Now with enlarging perinephric abscess. Urology on board. Also with initial delirium and finding of small acute vs. subacute infarction of left cortex of cerebellum. Neurology on board. Perinephric abscess drainage on 09/[address]. Discharge Planning Pending resolution of leukocytosis, results of cultures, stable clinically, perinephric abscess drainage, stable hemoglobin. [facility] be [facility] to [facility], in discussion with Kristin, global mobility specialist. (Eric Bertrand MD R3) Attending Attestation A detailed discussion about patients admission and hospital course was held with Dr Bertrand this morning, EMR reviewed, patient seen,interviewed and examined , Agree with contents of note and Assessment, See Orders (French Salter MD) Problem List: (1) Anemia ICD Codes: D64.9 - Anemia, unspecified Plan: Anemia with iron studies in pattern of chronic disease. Hemoccult negative. Possibly some acute blood loss from abscess drainage procedure. - Given elevated troponin on admission, will transfuse 1 unit PRBC. - Trial of ferrous sulfate 350 mg bid (2) Emphysematous pyelonephritis ICD Codes: N12 - Tubulo-interstitial nephritis, not specified as acute or chronic Status: Acute Plan: White count trending down Platelets elevated Fever low grade on 09/26, afebrile since Emphysematous pyelonephritis involving the right kidney, repeat CT on 09/20 showing continued severe emphysematous pyelonephritis on the right with increase in size of the perinephric abscess, quite large on CT Urology on board, she is status post ureteral stent on right. Catheter placed into perinephric abscess on 09/27, minimal fluid drainage now Infectious disease also on board, helping to manage antibiotics. Blood culture positive for E.coli, urine with e.coli, colony counts improving. 09/22 urine culture with no growth 09/22 and 09/23 blood cultures NG - Continue Rocephin 2g IV Q24H (started 09/22) - Continue Diflucan 100 mg daily (started 09/22) - Tylenol 650 mg every 6 hours PRN for flank pain. - Zofran 4 mg IV every 8 hours as needed for nausea and vomiting - Defer to urology on renal catheter removal - Continue to follow clinically and follow for fevers, leukocytosis, inflammatory markers. (3) Acute ischemic stroke ICD Codes: I63.9 - Cerebral infarction, unspecified Status: Acute Plan: MRI brain ordered 09/19 for altered mental status, some uncoordination with walking. Small acute versus subacute infarction of the left cerebellar cortex about 5 mm. Discussed finding with radiologist, Dr. Coley. He suggests that the infarction is anywhere from hours to several days old. He suggests that it does not correlate with her symptoms and is likely to not have any neurological effects given its location and size, likely came from an end artery as opposed to a major vessel. He suggests the possibility of a small septic emboli as the cause. Head MRA showing severe multi-vascular disease with occlusions and stenoses in multiple territories, suggesting possible embolic events. However, repeat brain MRI is the same as initial MRI, so not correlated with the findings on the MRA. TERRELL showed a PFO, but no vegetations. Carotid Doppler suggesting 50-60% stenosis of carotid arteries bilaterally. EEG with generalized slowing, likely encephalopathy. LE ultrasound to check for DVT (due to PFO) is negative. - Aspirin 325 mg daily - On statin, continue gemfibrozil from home - Cardiac monitoring - Has bilateral SCD's and prophylactic heparin. - Amlodipine, lisinopril for BP control - Neurology suggests not closing PFO. - Had long discussion with daughter and patient about anticoagulation given the PFO and possible embolization event. Daughter and patient both would like the treatment to consist only of aspirin for now. - Consulted neurology, cardiology (signed off), infectious disease, appreciate recommendations. (4) Stage 2 skin ulcer of sacral region ICD Codes: L89.152 - Pressure ulcer of sacral region, stage 2 Status: Chronic Plan: Very small stage 2 ulcer in sacral region. - Occlusive hydrocolloid dressing daily - Turn every 2 hours - Up in chair as much as possible - Monitor for progression (5) Elevated troponin ICD Codes: R74.8 - Abnormal levels of other serum enzymes Status: Acute Plan: Elevated troponin, but remained relatively flat. Cardiology consulted, suggesting likely demand mediated in the context of kidney disease. - May consider Lexiscan depending on recovery. (6) Diabetes mellitus ICD Codes: E11.9 - Type 2 diabetes mellitus without complications Status: Chronic Plan: Very poor control at home. A1C 12.2. Has not been taking her oral medications at home and not on insulin. Poor understanding of diabetes. Only on glipizide at home. - Low dose sliding scale insulin. - Levemir 10 units at night. - Glucose checks before meals and at bedtime - Diabetic diet - Consulted senior health educator - Consulted case management to assess possible reasons for poor compliance and attendance at office visits - Likely will need insulin at home (7) Hypertension Status: Chronic Plan: History of hypertension - Continue home dose of amlodipine and lisinopril - Vasotec PRN (8) Dyslipidemia ICD Codes: E78.5 - Dyslipidemia Status: Chronic Plan: Continue home gemfibrozil Started Pravastatin 40 mg daily (9) FEN/PPX Plan: Fluids: PO Electrolytes: Monitor and replace as needed, monitor renal function Nutrition: Renal diet DVT: Heparin 5000 units subcutaneous 3 times a day resumed after procedure CODE STATUS: Full code (Eric Bertrand MD R3) Eric Bertrand MD R3 Sep 29, 2017 13:38 French Salter MD Sep 30, 2017 13:29
--- NOTE | 2017-09-29 13:42 | HHI.IDPN ---
Subjective Subjective Remarks Patient is a 67-year-old female, presented to the hospital complaining of three- day history of right-sided abdominal pain, and right flank pain. This was associated with nausea and vomiting as well as frequency and dysuria. She denies any hematuria. In the emergency room she was found to have a white count of 19,000. She has significant pyuria. Creatinine was also elevated. CT of the abdomen and pelvis showed evidence of air in the right kidney, right renal pelvis and also some air extending in the renal vein into the IVC. There is also a small amount of air seen in the hilum of the left kidney. There was some right hydronephrosis and ureter, but no kidney stones seen to cause obstruction. Patient has had prior history of bladder and kidney infection but not this severe. Patient also was found to have very high blood glucose. 2 blood cultures done and are now reported as growing gram-negative rods. Patient underwent surgery, and had cystoscopy and placement of a right ureteral stent. She has been afebrile since admission. Her white count remains elevated at 19,000. Infectious disease consultation has been requested to evaluate the patient with emphysematous pyelonephritis. Notes reviewed Temps ok Has drain in R kidney C/O pain at drain site R sided abdominal pain better Working with PT Desats during ambulation C/S fluid E coli Last (+) BC 09/20 with E coli TERRELL with PFO WBC lower Repeat UC negative Antibiotics I attest that I obtained, updated or reviewed the home and current medications. Rocephin Current Medications Medications (Trade) Dose Ordered Sig/Alisha Route Start Time Stop Time Status Last Admin (NS Flush) 2 ml UNSCH PRN IV FLUSH 09/16/17 19:30 (NS Flush) 2 ml BID IV FLUSH 09/16/17 21:00 09/29/17 08:43 (Norvasc) 10 mg DAILY PO 09/17/17 09:00 Future hold 09/29/17 08:29 (Lopid) 300 mg BIDAC PO 09/17/17 07:00 09/29/17 05:43 (Prinivil) 40 mg DAILY PO 09/17/17 09:00 Future hold 09/29/17 08:28 (Narcan Inj) 0.4 mg UNSCH X1 PRN IV PUSH 09/16/17 20:15 10/16/17 20:14 (Zofran Inj) 4 mg Q8HR PRN IV PUSH 09/16/17 20:15 09/26/17 16:45 (NovoLOG INJ) 8 units TIDAC SQ 09/17/17 08:00 Future Hold 09/17/17 17:34 (D50w (Vial) Inj) 50 ml UNSCH PRN IV PUSH 09/16/17 20:15 (Glucagon Inj) 1 mg UNSCH PRN OTHER 09/16/17 20:15 (NovoLOG SUPPLEMENTAL SCALE) 1 ACHS SLIDING SCALE SQ 09/19/17 12:00 09/29/17 08:00 (Pravachol) 40 mg HS PO 09/19/17 21:00 09/28/17 20:48 (Heparin Inj) 5,000 units Q8HR SQ 09/22/17 14:00 Future hold 09/29/17 05:43 (Aspirin) 325 mg DAILY PO 09/22/17 09:15 09/29/17 08:29 Ceftriaxone Sodium 2000 mg/ Sodium Chloride 100 ml @ 200 mls/hr Q24H IV 09/22/17 16:00 09/28/17 16:46 (Diflucan) 100 mg DAILY PO 09/22/17 15:00 09/29/17 14:59 09/29/17 08:29 (Apresoline) 25 mg Q8HR PRN PO 09/23/17 04:45 Future Hold (Levemir Inj) 10 units HS SQ 09/23/17 21:00 09/28/17 20:47 (Lactinex) 1 tab Q12HR PO 09/23/17 10:15 09/29/17 08:28 (Tylenol) 650 mg Q6HR PO 09/23/17 12:00 09/29/17 05:43 (Trandate) 100 mg Q12HR PO 09/23/17 21:00 09/29/17 08:29 (Duoneb Neb) 1 ampule Q4HR NEB PRN NEB 09/24/17 09:30 09/26/17 21:43 (Vasotec Inj) 1.25 mg Q6H PRN IV PUSH 09/25/17 05:45 09/25/17 06:30 (Roxicodone) 5 mg Q6H PRN PO 09/29/17 14:00 (Ferrous Sulfate) 325 mg BID PO 09/29/17 13:45 UNV Lines PIV Past Medical History Diabetes HTN Hypertriglyceridemia CAD Previous episodes of UTI Past Surgical History Caesarian section Allergies: Coded Allergies: metformin (Unverified Allergy, Severe, Numbness, 07/12/17) clonidine (Unverified Allergy, Unknown, 07/12/17) Objective . Vital Signs Date Time Temp Pulse Resp B/P (MAP) Pulse Ox O2 Delivery O2 Flow Rate FiO2 09/29/17 08:00 97.8 55 18 128/74 (92) 94 09/29/17 04:00 97.8 65 18 130/61 (84) 96 09/29/17 00:00 97.8 72 20 158/72 (100) 93 09/28/17 19:47 98.7 68 12 131/62 (85) 96 09/28/17 19:45 Nasal Cannula 3.00 21 09/28/17 19:45 68 09/28/17 19:00 20 09/28/17 16:05 98.6 67 18 138/61 (86) 92 09/28/17 16:00 97.8 72 16 148/66 (93) 92 . Laboratory Tests Test 09/28/17 07:00 09/29/17 07:20 09/29/17 13:01 White Blood Count 12.5 TH/MM3 11.8 TH/MM3 Red Blood Count 2.62 MIL/MM3 2.42 MIL/MM3 Hemoglobin 7.7 GM/DL 7.2 GM/DL 7.3 GM/DL Hematocrit 23.5 % 21.9 % 22.6 % Mean Corpuscular Volume 89.7 FL 90.5 FL Mean Corpuscular Hemoglobin 29.5 PG 29.6 PG Mean Corpuscular Hemoglobin Concent 32.9 % 32.7 % Red Cell Distribution Width 15.1 % 14.8 % Platelet Count 628 TH/MM3 637 TH/MM3 Mean Platelet Volume 7.7 FL 7.8 FL Erythrocyte Sedimentation Rate GREATER THAN 140 mm/hr Laboratory Tests Test 09/28/17 07:00 09/29/17 08:20 Blood Urea Nitrogen 17 MG/DL 18 MG/DL Creatinine 1.11 MG/DL 1.17 MG/DL Random Glucose 242 MG/DL 192 MG/DL Calcium Level 8.2 MG/DL 8.1 MG/DL Sodium Level 134 MEQ/L 136 MEQ/L Potassium Level 3.3 MEQ/L 3.8 MEQ/L Chloride Level 102 MEQ/L 104 MEQ/L Carbon Dioxide Level 21.6 MEQ/L 22.0 MEQ/L Anion Gap 10 MEQ/L 10 MEQ/L Estimat Glomerular Filtration Rate 60 ML/MIN 56 ML/MIN C-Reactive Protein 25.00 MG/DL Iron Level 17 MCG/DL Total Iron Binding Capacity 206 MCG/DL Percent Iron Saturation 8.3 % Ferritin 1081 NG/ML Microbiology Date/Time Source Procedure Growth Status 09/27/17 16:00 Fluid Other Gram Stain - Final Complete 09/27/17 16:00 Body Fluid Culture - Final Escherichia Coli Complete 09/28/17 13:15 Stool Stool Stool Occult Blood ([facility]ESSEE) - Final HEMOCCULT NEGATIVE Complete Imaging Abdomen/Pelvis CT 09/16/17 0000 Signed Impressions: Service Date/Time: Saturday, September 16, 2017 17:27 - CONCLUSION: 1. 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 No obstructing stone or mass observed. Air is seen throughout the right kidney parenchyma, collecting system, and into the renal vein. A small amount of air is seen involving the upper pole of the left kidney near the hilum likely extension from air within the inferior vena cava. There is mild hydronephrosis and hydroureter on the right. No obstruction on the left. Corey Millan Jr., MD Physical Exam GENERAL: awake, and alert, not in respiratory distress. SKIN: Warm and dry. No generalized rash, no ecchymoses and no evidence of embolic lesions. HEAD: Atraumatic. Normocephalic. No temporal wasting, or tenderness. EYES: [place] conjunctiva. No petechia or hemorrhage. Pupils equal, round and reactive to light. Extraocular movements full and intact. No scleral icterus. No injection or drainage. EARS, NOSE AND THROAT: Nose without bleeding or purulent nasal discharge. Mucous membranes pink and moist. No oral lesions noted. No exudate. No oral thrush. NECK: Trachea midline. Supple and not tender, no meningeal signs. No nuchal rigidity. CARDIOVASCULAR: Regular rate and rhythm. No murmurs, rubs or gallops heard RESPIRATORY: Clear to auscultation. Breath sounds equal bilaterally. No rales , wheezing or rhonchi ABDOMEN: Soft, nondistended, bowel sounds present and normoactive. Tenderness on R side, but no guarding. No rebound. Drain in place, fluid looks like brown and cloudy NEUROLOGICAL: Non-focal PSYCHIATRIC: Normal affect, calm and cooperative. LINE: No evidence of infection Assessment & Plan Remarks IMPRESSION E coli sepsis due to emphysematous pyelonephritis on R, worse on last CT - has perinephric abscess - S/P cysto and R ureteral stent placement TERRELL with PFO Renal insufficiency Diabetes, poorly controlled Leukocytosis, worsening due to progression of infection in her R kidney Lethargy, resolved - ?could still be from sepsis, ?relative hypoglycemia - ?due to Zosyn RECOMMENDATION Continue IV Rocephin Follow new C/S Stop Diflucan Follow CBC Monitor temps Monitor progress Explained plan to patient Ann Hoffmann MD Sep 29, 2017 13:42
[2017-09-29] MEDS ORDERED: SODIUM CHLOR 0.9% 250 ML INJ 250 ML IV ONE (13:45)
--- NOTE | 2017-09-29 13:50 | HHI.DCPOC ---
Discharge Care Plan Diagnosis: (1) Diabetes mellitus (2) Emphysematous pyelonephritis (3) Elevated troponin (4) Acute ischemic stroke (5) Acute kidney injury (6) Stage 2 skin ulcer of sacral region Goals to Promote Your Health * To prevent worsening of your condition and complications * To maintain your health at the optimal level Directions to Meet Your Goals Take your medications as prescribed Follow your dietary instruction Follow activity as directed Keep your appointments as scheduled Take your immunizations and boosters as scheduled If your symptoms worsen call your PCP, if no PCP go to Urgent Care Center or Emergency Room Smoking is Dangerous to Your Health. Avoid second hand smoke Call the 24-hour hour crisis hotline for domestic abuse at Eric Bertrand MD R3 Sep 29, 2017 13:50
[2017-09-29] MEDS ORDERED: FUROSEMIDE 20 MG/2 ML VIAL IV PUSH ONE (14:30)
[2017-09-29] MEDS: FERROUS SULFATE 325 MG (65 MG ELEMENTAL IRON) TAB PO SCH ×2 (14:47→20:34)
[2017-09-29] MEDS: cefTRIAXone INJ 2,000 MG in SODIUM CHLORIDE 0.9% INJ 100 ML IV SCH (15:31)
[2017-09-29] MEDS: PRAVASTATIN SOD 40 MG TAB PO SCH (20:16)
[2017-09-29] MEDS: INSULIN DETEMIR 100 UNITS/ML VIAL SQ SCH (20:17)
[2017-09-30] VITALS (9 sets, daily range): BP systolic 130–164; BP diastolic 61–106; PULSE 65–80; RESP 20; TEMP 97.7–99.5; O2SAT 91–97
[2017-09-30] MEDS: HEPARIN SODIUM - SQ 10,000 UNITS/ML VIAL SQ SCH ×3 (04:28→22:13)
[2017-09-30] MEDS: ACETAMINOPHEN 325 MG TAB PO SCH ×3 (04:29→18:38)
[2017-09-30 04:35] LABS: HEMATOCRIT 24.8 % (35.0-46.0); HEMATOCRIT 24.9 % (35.0-46.0); MEAN CELL VOLUME 90.1 FL (80.0-100.0); MEAN CORPUSCULAR HEMOGLOBIN 29.1 PG (27.0-34.0); MEAN CORPUSCULAR HGB CONC 32.3 % (32.0-36.0); PLATELET COUNT 678 TH/MM3 (150-450); RED BLOOD COUNT 2.77 MIL/MM3 (4.00-5.30); RED CELL DISTRIBUTION WIDTH 14.5 % (11.6-17.2); REVIEW FLAG FINAL; WHITE BLOOD COUNT 12.5 TH/MM3 (4.0-11.0)
[2017-09-30 04:54] LABS: POTASSIUM 3.9 MEQ/L (3.5-5.1)
[2017-09-30] MEDS: INSULIN ASPART SUPPLEMENTAL SCALE SQ SCH ×4 (08:00→20:12)
--- NOTE | 2017-09-30 08:06 | HHI.PR ---
Subjective Remarks bp up Objective Vital Signs Date Time Temp Pulse Resp B/P (MAP) Pulse Ox O2 Delivery O2 Flow Rate FiO2 09/30/17 04:00 Nasal Cannula 2.00 09/30/17 04:00 97.7 68 20 141/65 (90) 97 09/30/17 01:30 98.5 75 20 151/67 (95) 91 09/30/17 00:00 98.8 77 20 164/75 (104) 93 09/30/17 00:00 Nasal Cannula 2.00 09/29/17 23:10 98.8 76 20 164/75 (104) 76 09/29/17 22:50 98.8 78 20 153/65 (94) 92 09/29/17 20:00 Nasal Cannula 2.00 09/29/17 20:00 98.4 73 20 142/65 (90) 96 09/29/17 20:00 70 09/29/17 16:00 98.3 66 18 137/63 (87) 93 09/29/17 12:00 97.8 64 18 119/73 (88) 97 I/O 09/29/17 09/29/17 09/29/17 09/30/17 09/30/17 09/30/17 07:00 15:00 23:00 07:00 15:00 23:00 Intake Total 600 ml 880 ml 715 ml Output Total 600 ml Balance 600 ml 280 ml 715 ml Intake Oral 600 ml 480 ml 240 ml IV Total 100 ml Packed Cells 400 ml Blood Product IV Normal Saline Flush 300 ml 75 ml Output Urine Total 600 ml # Voids 6 3 # Bowel Movements 2 1 3 Result Diagram: 09/30/17 0339 09/30/17 0339 Objective Remarks looks well nl speech walking well she tells me moves all well Assessment and Plan Assessment and Plan imp abg 7.28 pH ? from sepsis defer to med team on acidosis probably contributed to ms change i dw cards to do chanell mra echo eeg pend esr >140 probably some endocarditis i do not at this point think meningitis or encephalitis clinically ID on case dep on course about asa or sq heparin at this point much better neuro tejada ------ 09/21/17 back to nl neuro tejada mra neck echo and eeg nl mra cow poor flow r mca and some dec branch flow could have been mult small emboli will recheck mri creat too high for cta for chanell i restarted asa and get oob keep well hydrated and bp up 09/22/17 sr nl neuro on asa willinc to 325 i started sq heparin today repeat mri no new cva mra a lot of arterial dz labs neg has pfo but at this stage since not on asa at home would just rx with asa check ble for and dvt could of course had developed small pelvic clot with pyelo will have ct reviewed for any of that with rads would not close pfo now or do coumadin for now esr inc but septic and check fu claudia la rf 09/23/17 doing well rf neg i dw rads no evidence clot on ct and us ble neg cards wants to anticoag i could go with asa but am ok with anticoag per cards so med team shold start this if felt ok with kidney and dc asa when inr>1.9 oob ok to rx bp to 120/70 not a large cva ok for pain meds for kidneuy pain renal fx getting better she could ? dc soon 09/26/17 bp up a little loks fine neuro tejada pfo some inc kidney? abcess drain or not? med team on case cva small asa for now sq hep dced for ? drain up to med team to restart if ok with kidney cards wanted coumadin 09/30/17 doing well neuro tejada' family elects asa only could dc heparin if up and around and walking a lot stable neuro fu office Sean Joiner MD Sep 30, 2017 08:06
[2017-09-30] MEDS: FERROUS SULFATE 325 MG (65 MG ELEMENTAL IRON) TAB PO SCH ×2 (09:30→20:11)
[2017-09-30] MEDS: LABETALOL HCL 100 MG TAB PO SCH ×2 (09:31→20:17)
[2017-09-30] MEDS: GEMFIBROZIL 600 MG TAB PO SCH ×2 (09:31→16:14)
[2017-09-30] MEDS: LISINOPRIL 20 MG TAB PO SCH (09:32)
[2017-09-30] MEDS: LACTOBACILLUS ACIDOPHILUS TAB PO SCH ×2 (09:32→20:11)
[2017-09-30] MEDS: SODIUM CHLORIDE 0.9% FLUSH 10 ML FLUSH IV FLUSH SCH ×2 (09:32→20:11)
[2017-09-30] MEDS: ASPIRIN 325 MG TAB PO SCH (09:32)
[2017-09-30] MEDS: RESP: ALBUTEROL 2.5 MG/IPRATROPIUM 0.5 MG NEB (PRN) NEB (12:20)
--- NOTE | 2017-09-30 14:03 | RADRPT ---
EXAM DATE/TIME: 09/30/2017 12:49 [facility] COMPARISON: No previous studies available for comparison. INDICATIONS : Short of breath. MEDICAL HISTORY : Kidney infection SURGICAL HISTORY : Coronary artery stent. ENCOUNTER: Initial ACUITY: 4 - 6 days PAIN SCORE: 0/10 LOCATION: Bilateral chest FINDINGS: The heart is enlarged. Mild increased perihilar interstitial markings are noted consistent with mild congestion and/or scattered atelectasis. CONCLUSION: 1. Cardiomegaly. 2. Mild increased perihilar interstitial markings consistent with mild congestion and/or scattered a telectasis. Daniel Portillo MD on September 30, 2017 at 13:59 Board Certified Radiologist. This report was verified electronically.
--- NOTE | 2017-09-30 15:44 | HHI.FPPN ---
Subjective Remarks Patient sitting up in bed. More short of breath than before. She had desaturation down to 76 percent last night. This morning she is comfortable at rest but when you get her to sit up she becomes more short of breath. She also has more crackles in her lungs today compared to before. No chest pain. No abdominal pain, nausea, vomiting, or diarrhea. No calf tenderness or swelling. She had one unit PRBC yesterday. Discussed possibly she is developing TACO after the transfusion. Hemoglobin responded appropriately. (Eric Bertrand MD R3) Objective Vitals Vital Signs Date Time Temp Pulse Resp B/P (MAP) Pulse Ox O2 Delivery O2 Flow Rate FiO2 09/30/17 12:23 94 Nasal Cannula 2.00 09/30/17 08:01 Nasal Cannula 2.00 09/30/17 07:53 72 09/30/17 04:00 Nasal Cannula 2.00 09/30/17 04:00 97.7 68 20 141/65 (90) 97 09/30/17 01:30 98.5 75 20 151/67 (95) 91 09/30/17 00:00 98.8 77 20 164/75 (104) 93 09/30/17 00:00 Nasal Cannula 2.00 09/29/17 23:10 98.8 76 20 164/75 (104) 76 09/29/17 22:50 98.8 78 20 153/65 (94) 92 09/29/17 20:00 Nasal Cannula 2.00 09/29/17 20:00 98.4 73 20 142/65 (90) 96 09/29/17 20:00 70 09/29/17 16:00 98.3 66 18 137/63 (87) 93 I/O 09/29/17 09/29/17 09/29/17 09/30/17 09/30/17 09/30/17 07:00 15:00 23:00 07:00 15:00 23:00 Intake Total 600 ml 880 ml 715 ml Output Total 600 ml Balance 600 ml 280 ml 715 ml Intake Oral 600 ml 480 ml 240 ml IV Total 100 ml Packed Cells 400 ml Blood Product IV Normal Saline Flush 300 ml 75 ml Output Urine Total 600 ml # Voids 6 3 # Bowel Movements 2 1 3 (Eric Bertrand MD R3) Result Diagram: 09/30/1733809/30/17338 Objective Remarks GENERAL: Resting in bed, more short of breath with exertion, doing better on incentive spirometer SKIN: Stage 2 sacral ulcer is now stage 1, very small HEAD: NC/AT EYES: No conjunctival injection or drainage. ENT: No nasal discharge, no oral secretions NECK: Supple, no lymphadenopathy. No JVD. CARDIOVASCULAR: RRR, systolic murmur 1/6, no rubs or gallops, pulses symmetrical. Murmur decreased. RESPIRATORY: Crackles in lung bases. Short of breath when asked to sit up on side of bed. More short of breath than before. GASTROINTESTINAL: Abdomen soft, non-distended GENITOURINARY: CVA tenderness on right improved after nephrostomy tube MUSCULOSKELETAL: Extremities without clubbing, cyanosis, or edema. NEUROLOGICAL: Awake and alert. 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 Now with enlarging perinephric abscess. Urology on board. Also with initial delirium and finding of small acute vs. subacute infarction of left cortex of cerebellum. Neurology on board. Perinephric abscess drainage on 09/[address]. Discharge Planning Pending resolution of leukocytosis, results of cultures, stable clinically, perinephric abscess drainage, stable hemoglobin. Planning for discharge to an outpatient rehab facility versus SNF. (rEic Bertrand MD R3) Attending Attestation Medical rounds were performed with Dr Britt Bertrand, Patients admission and hospital course were discussed in detail, Patient was seen and examined, Agree with the contents of this note, See Orders. (French Salter MD) Problem List: (1) TACO (transfusion associated circulatory overload) ICD Codes: E87.71 - Transfusion associated circulatory overload Status: Resolved Plan: Evidence of TACO post transfusion, chest x-ray showing evidence of fluid overload, more crackles in lung bases. O2 down to 76 overnight. - Check BNP - Supplemental oxygen - Give Lasix 40 mg IV once, reassess fluid status - Assess daily I's and O's (2) Anemia ICD Codes: D64.9 - Anemia, unspecified Status: Acute Plan: Anemia with iron studies in pattern of chronic disease. Hemoccult negative. Possibly some acute blood loss from abscess drainage procedure. Received 1 unit PRBC on 09/29/17. - Trial of ferrous sulfate 350 mg bid - Continue to monitor hemoglobin daily (3) Emphysematous pyelonephritis ICD Codes: N12 - Tubulo-interstitial nephritis, not specified as acute or chronic Status: Acute Plan: White count stable Platelets elevated Fever low grade on 09/26, afebrile since Emphysematous pyelonephritis involving the right kidney, repeat CT on 09/20 showing continued severe emphysematous pyelonephritis on the right with increase in size of the perinephric abscess, quite large on CT Urology on board, she is status post ureteral stent on right. Catheter placed into perinephric abscess on 09/27, minimal fluid drainage now Infectious disease also on board, helping to manage antibiotics. Blood culture positive for E.coli, urine with e.coli, colony counts improving. 09/22 urine culture with no growth 09/22 and 09/23 blood cultures NG - Continue Rocephin 2g IV Q24H (started 09/22) - Continue Diflucan 100 mg daily (started 09/22) discontinued 09/29/17 - Tylenol 650 mg every 6 hours PRN for flank pain. - Zofran 4 mg IV every 8 hours as needed for nausea and vomiting - Defer to urology on renal catheter removal - Continue to follow clinically and follow for fevers, leukocytosis, inflammatory markers. (4) Acute ischemic stroke ICD Codes: I63.9 - Cerebral infarction, unspecified Status: Acute Plan: MRI brain ordered 09/19 for altered mental status, some uncoordination with walking. Small acute versus subacute infarction of the left cerebellar cortex about 5 mm. Discussed finding with radiologist, Dr. Coley. He suggests that the infarction is anywhere from hours to several days old. He suggests that it does not correlate with her symptoms and is likely to not have any neurological effects given its location and size, likely came from an end artery as opposed to a major vessel. He suggests the possibility of a small septic emboli as the cause. Head MRA showing severe multi-vascular disease with occlusions and stenoses in multiple territories, suggesting possible embolic events. However, repeat brain MRI is the same as initial MRI, so not correlated with the findings on the MRA. TERRELL showed a PFO, but no vegetations. Carotid Doppler suggesting 50-60% stenosis of carotid arteries bilaterally. EEG with generalized slowing, likely encephalopathy. LE ultrasound to check for DVT (due to PFO) is negative. - Aspirin 325 mg daily - On statin, continue gemfibrozil from home - Cardiac monitoring - Has bilateral SCD's and prophylactic heparin. - Amlodipine, lisinopril for BP control - Neurology suggests not closing PFO. - Had long discussion with daughter and patient about anticoagulation given the PFO and possible embolization event. Daughter and patient both would like the treatment to consist only of aspirin for now. - Consulted neurology, cardiology (signed off), infectious disease, appreciate recommendations. (5) Stage 2 skin ulcer of sacral region ICD Codes: L89.152 - Pressure ulcer of sacral region, stage 2 Status: Chronic Plan: Very small stage 2 ulcer in sacral region, downgraded to stage 1 on - Occlusive hydrocolloid dressing daily - Turn every 2 hours - Up in chair as much as possible - Monitor for progression (6) Elevated troponin ICD Codes: R74.8 - Abnormal levels of other serum enzymes Status: Acute Plan: Elevated troponin, but remained relatively flat. Cardiology consulted, suggesting likely demand mediated in the context of kidney disease. - May consider Lexiscan depending on recovery. (7) Diabetes mellitus ICD Codes: E11.9 - Type 2 diabetes mellitus without complications Status: Chronic Plan: Very poor control at home. A1C 12.2. Has not been taking her oral medications at home and not on insulin. Poor understanding of diabetes. Only on glipizide at home. - Low dose sliding scale insulin. - Levemir 10 units at night. - Glucose checks before meals and at bedtime - Diabetic diet - Consulted supervisor mirror fabrication - Consulted case management to assess possible reasons for poor compliance and attendance at office visits - Likely will need insulin at home (8) Hypertension Status: Chronic Plan: History of hypertension - Continue home dose of amlodipine and lisinopril - Vasotec PRN (9) Dyslipidemia ICD Codes: E78.5 - Dyslipidemia Status: Chronic Plan: Continue home gemfibrozil Started Pravastatin 40 mg daily (10) FEN/PPX Status: Acute Plan: Fluids: PO Electrolytes: Monitor and replace as needed, monitor renal function Nutrition: Renal diet DVT: Heparin 5000 units subcutaneous 3 times a day resumed after procedure CODE STATUS: Full code (Eric Bertrand MD R3) Problem Qualifiers (1) Anemia: Qualified Codes: D64.9 - Anemia, unspecified Eric Bertrand MD R3 Sep 30, 2017 15:44 French Salter MD Oct 05, 2017 14:01
[2017-09-30] MEDS ORDERED: FUROSEMIDE 40 MG/4 ML VIAL IV PUSH ONE (15:45)
[2017-09-30] MEDS: cefTRIAXone INJ 2,000 MG in SODIUM CHLORIDE 0.9% INJ 100 ML IV SCH (16:00)
--- NOTE | 2017-09-30 16:22 | HHI.IDPN ---
Subjective Subjective Remarks Patient is a 67-year-old female, presented to the hospital complaining of three- day history of right-sided abdominal pain, and right flank pain. This was associated with nausea and vomiting as well as frequency and dysuria. She denies any hematuria. In the emergency room she was found to have a white count of 19,000. She has significant pyuria. Creatinine was also elevated. CT of the abdomen and pelvis showed evidence of air in the right kidney, right renal pelvis and also some air extending in the renal vein into the IVC. There is also a small amount of air seen in the hilum of the left kidney. There was some right hydronephrosis and ureter, but no kidney stones seen to cause obstruction. Patient has had prior history of bladder and kidney infection but not this severe. Patient also was found to have very high blood glucose. 2 blood cultures done and are now reported as growing gram-negative rods. Patient underwent surgery, and had cystoscopy and placement of a right ureteral stent. She has been afebrile since admission. Her white count remains elevated at 19,000. Infectious disease consultation has been requested to evaluate the patient with emphysematous pyelonephritis. Notes reviewed Temps ok Has drain in R kidney R sided abdominal pain better WBC still up C/S fluid E coli Last (+) BC 09/20 with E coli TERRELL with PFO Antibiotics I attest that I obtained, updated or reviewed the home and current medications. Rocephin Current Medications Medications (Trade) Dose Ordered Sig/Alisha Route Start Time Stop Time Status Last Admin (NS Flush) 2 ml UNSCH PRN IV FLUSH 09/16/17 19:30 (NS Flush) 2 ml BID IV FLUSH 09/16/17 21:00 09/30/17 09:32 (Norvasc) 10 mg DAILY PO 09/17/17 09:00 Future hold 09/30/17 09:30 (Lopid) 300 mg BIDAC PO 09/17/17 07:00 09/30/17 16:14 (Prinivil) 40 mg DAILY PO 09/17/17 09:00 Future hold 09/30/17 09:32 (Narcan Inj) 0.4 mg UNSCH X1 PRN IV PUSH 09/16/17 20:15 10/16/17 20:14 (Zofran Inj) 4 mg Q8HR PRN IV PUSH 09/16/17 20:15 09/26/17 16:45 (NovoLOG INJ) 8 units TIDAC SQ 09/17/17 08:00 Future Hold 09/17/17 17:34 (D50w (Vial) Inj) 50 ml UNSCH PRN IV PUSH 09/16/17 20:15 (Glucagon Inj) 1 mg UNSCH PRN OTHER 09/16/17 20:15 (NovoLOG SUPPLEMENTAL SCALE) 1 ACHS SLIDING SCALE SQ 09/19/17 12:00 09/30/17 12:00 (Pravachol) 40 mg HS PO 09/19/17 21:00 09/29/17 20:16 (Heparin Inj) 5,000 units Q8HR SQ 09/22/17 14:00 Future hold 09/30/17 13:40 (Aspirin) 325 mg DAILY PO 09/22/17 09:15 09/30/17 09:32 Ceftriaxone Sodium 2000 mg/ Sodium Chloride 100 ml @ 200 mls/hr Q24H IV 09/22/17 16:00 09/30/17 16:00 (Apresoline) 25 mg Q8HR PRN PO 09/23/17 04:45 Future Hold (Levemir Inj) 10 units HS SQ 09/23/17 21:00 09/29/17 20:17 (Lactinex) 1 tab Q12HR PO 09/23/17 10:15 09/30/17 09:32 (Tylenol) 650 mg Q6HR PO 09/23/17 12:00 09/30/17 12:10 (Trandate) 100 mg Q12HR PO 09/23/17 21:00 09/30/17 09:31 (Duoneb Neb) 1 ampule Q4HR NEB PRN NEB 09/24/17 09:30 09/30/17 12:20 (Vasotec Inj) 1.25 mg Q6H PRN IV PUSH 09/25/17 05:45 09/25/17 06:30 (Roxicodone) 5 mg Q6H PRN PO 09/29/17 14:00 09/30/17 12:09 (Ferrous Sulfate) 325 mg BID PO 09/29/17 13:45 09/30/17 09:30 Lines PIV Past Medical History Diabetes HTN Hypertriglyceridemia CAD Previous episodes of UTI Past Surgical History Caesarian section Allergies: Coded Allergies: metformin (Unverified Allergy, Severe, Numbness, 07/12/17) clonidine (Unverified Allergy, Unknown, 07/12/17) Objective . Vital Signs Date Time Temp Pulse Resp B/P (MAP) Pulse Ox O2 Delivery O2 Flow Rate FiO2 09/30/17 12:23 94 Nasal Cannula 2.00 09/30/17 08:01 Nasal Cannula 2.00 09/30/17 07:53 72 09/30/17 04:00 Nasal Cannula 2.00 09/30/17 04:00 97.7 68 20 141/65 (90) 97 09/30/17 01:30 98.5 75 20 151/67 (95) 91 09/30/17 00:00 98.8 77 20 164/75 (104) 93 09/30/17 00:00 Nasal Cannula 2.00 09/29/17 23:10 98.8 76 20 164/75 (104) 76 09/29/17 22:50 98.8 78 20 153/65 (94) 92 09/29/17 20:00 Nasal Cannula 2.00 09/29/17 20:00 98.4 73 20 142/65 (90) 96 09/29/17 20:00 70 . Laboratory Tests Test 09/29/17 07:20 09/29/17 13:01 09/30/17 03:39 White Blood Count 11.8 TH/MM3 12.5 TH/MM3 Red Blood Count 2.42 MIL/MM3 2.77 MIL/MM3 Hemoglobin 7.2 GM/DL 7.3 GM/DL 7.9 GM/DL Hematocrit 21.9 % 22.6 % 24.8 % Mean Corpuscular Volume 90.5 FL 90.1 FL Mean Corpuscular Hemoglobin 29.6 PG 29.1 PG Mean Corpuscular Hemoglobin Concent 32.7 % 32.3 % Red Cell Distribution Width 14.8 % 14.5 % Platelet Count 637 TH/MM3 678 TH/MM3 Mean Platelet Volume 7.8 FL 7.4 FL Laboratory Tests Test 09/29/17 08:20 09/30/17 03:39 Blood Urea Nitrogen 18 MG/DL 16 MG/DL Creatinine 1.17 MG/DL 1.17 MG/DL Random Glucose 192 MG/DL 213 MG/DL Calcium Level 8.1 MG/DL 7.9 MG/DL Sodium Level 136 MEQ/L 137 MEQ/L Potassium Level 3.8 MEQ/L 3.9 MEQ/L Chloride Level 104 MEQ/L 104 MEQ/L Carbon Dioxide Level 22.0 MEQ/L 22.0 MEQ/L Anion Gap 10 MEQ/L 11 MEQ/L Estimat Glomerular Filtration Rate 56 ML/MIN 56 ML/MIN Iron Level 17 MCG/DL Total Iron Binding Capacity 206 MCG/DL Percent Iron Saturation 8.3 % Ferritin 1081 NG/ML Microbiology Date/Time Source Procedure Growth Status 09/28/17 13:15 Stool Stool Stool Occult Blood ([facility]) - Final HEMOCCULT NEGATIVE Complete Imaging Abdomen/Pelvis CT 09/16/17 0000 Signed Impressions: Service Date/Time: Saturday, September 16, 2017 17:27 - CONCLUSION: 1. 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 No obstructing stone or mass observed. Air is seen throughout the right kidney parenchyma, collecting system, and into the renal vein. A small amount of air is seen involving the upper pole of the left kidney near the hilum likely extension from air within the inferior vena cava. There is mild hydronephrosis and hydroureter on the right. No obstruction on the left. Corey Millan Jr., MD Physical Exam GENERAL: awake, and alert, not in respiratory distress. SKIN: Warm and dry. No generalized rash, no ecchymoses and no evidence of embolic lesions. HEAD: Atraumatic. Normocephalic. No temporal wasting, or tenderness. EYES: [place] conjunctiva. No petechia or hemorrhage. Pupils equal, round and reactive to light. Extraocular movements full and intact. No scleral icterus. No injection or drainage. EARS, NOSE AND THROAT: Nose without bleeding or purulent nasal discharge. Mucous membranes pink and moist. No oral lesions noted. No exudate. No oral thrush. NECK: Trachea midline. Supple and not tender, no meningeal signs. No nuchal rigidity. CARDIOVASCULAR: Regular rate and rhythm. No murmurs, rubs or gallops heard RESPIRATORY: Clear to auscultation. Breath sounds equal bilaterally. No rales , wheezing or rhonchi ABDOMEN: Soft, nondistended, bowel sounds present and normoactive. Tenderness on R side, but no guarding. No rebound. Drain in place, fluid looks like brown and cloudy NEUROLOGICAL: Non-focal PSYCHIATRIC: Normal affect, calm and cooperative. LINE: No evidence of infection Assessment & Plan Remarks IMPRESSION E coli sepsis due to emphysematous pyelonephritis on R, worse on last CT - has perinephric abscess, has drain in place - S/P cysto and R ureteral stent placement TERRELL with PFO Renal insufficiency Diabetes, poorly controlled Leukocytosis, worsening due to progression of infection in her R kidney Lethargy, resolved - ?could still be from sepsis, ?relative hypoglycemia - ?due to Zosyn RECOMMENDATION Continue IV Rocephin Follow new C/S Follow CBC Monitor temps Monitor progress Possibly repeat CT A/P next week Dr Giuseppe Connell available if needed this weekend Ann Hoffmann MD Sep 30, 2017 16:22
[2017-09-30] MEDS: PRAVASTATIN SOD 40 MG TAB PO SCH (20:11)
[2017-09-30] MEDS: INSULIN DETEMIR 100 UNITS/ML VIAL SQ SCH (20:12)
[2017-09-30 21:29] LABS: HEMATOCRIT 26.3 % (35.0-46.0); REVIEW FLAG FINAL
[2017-10-01] VITALS (8 sets, daily range): BP systolic 133–168; BP diastolic 62–83; PULSE 68–75; RESP 20; TEMP 97.4–98.4; O2SAT 94–97
[2017-10-01] MEDS: HEPARIN SODIUM - SQ 10,000 UNITS/ML VIAL SQ SCH (04:45)
[2017-10-01] MEDS: ACETAMINOPHEN 325 MG TAB PO SCH ×5 (04:46→23:59)
[2017-10-01 07:57] LABS: HEMATOCRIT 24.7 % (35.0-46.0); MEAN CELL VOLUME 89.8 FL (80.0-100.0); MEAN CORPUSCULAR HEMOGLOBIN 29.1 PG (27.0-34.0); MEAN CORPUSCULAR HGB CONC 32.5 % (32.0-36.0); PLATELET COUNT 622 TH/MM3 (150-450); RED BLOOD COUNT 2.75 MIL/MM3 (4.00-5.30); RED CELL DISTRIBUTION WIDTH 14.1 % (11.6-17.2); REVIEW FLAG FINAL; WHITE BLOOD COUNT 12.6 TH/MM3 (4.0-11.0)
[2017-10-01 08:16] LABS: BICARBONATE 22.6 MEQ/L (21.0-32.0); POTASSIUM 3.8 MEQ/L (3.5-5.1)
[2017-10-01] MEDS: LABETALOL HCL 100 MG TAB PO SCH ×2 (09:03→21:54)
[2017-10-01] MEDS: FERROUS SULFATE 325 MG (65 MG ELEMENTAL IRON) TAB PO SCH ×2 (09:03→21:54)
[2017-10-01] MEDS: ASPIRIN 325 MG TAB PO SCH (09:03)
[2017-10-01] MEDS: GEMFIBROZIL 600 MG TAB PO SCH ×2 (09:03→17:58)
[2017-10-01] MEDS: LACTOBACILLUS ACIDOPHILUS TAB PO SCH ×2 (09:03→21:54)
[2017-10-01] MEDS: LISINOPRIL 20 MG TAB PO SCH (09:03)
[2017-10-01] MEDS: INSULIN ASPART SUPPLEMENTAL SCALE SQ SCH ×4 (09:03→21:58)
[2017-10-01] MEDS: SODIUM CHLORIDE 0.9% FLUSH 10 ML FLUSH IV FLUSH SCH ×2 (09:04→21:00)
--- NOTE | 2017-10-01 12:12 | HHI.FPPN ---
Subjective Remarks No acute events. No oxygen desaturations overnight. Breathing much better after she received the Lasix for TACO. TACO event reported to the blood bank. Still with significant nephrostomy output. Has bright red blood last night with a few drops in the toilet bowel but none noted on the stool itself. Repeating hemoccult and monitoring hemoglobin levels. She does not report a history of hemorrhoids. She had a normal colonoscopy 2 years ago per patient and daughter. Flank pain improving somewhat but still present. No chest pain. No abdominal pain, nausea, vomiting, or diarrhea. No calf swelling or tenderness. Objective Vitals Vital Signs Date Time Temp Pulse Resp B/P (MAP) Pulse Ox O2 Delivery O2 Flow Rate FiO2 10/01/17 08:00 98.4 69 20 168/70 (102) 97 10/01/17 04:00 Nasal Cannula 2.00 10/01/17 04:00 98.4 71 20 164/76 (105) 97 10/01/17 00:00 97.4 69 20 133/62 (85) 95 10/01/17 00:00 Nasal Cannula 2.00 09/30/17 20:00 99.0 75 20 155/70 (98) 95 09/30/17 20:00 Nasal Cannula 2.00 09/30/17 20:00 65 09/30/17 16:00 98.4 65 20 130/61 (84) 96 09/30/17 16:00 Nasal Cannula 2.00 09/30/17 12:23 94 Nasal Cannula 2.00 I/O 09/30/17 09/30/17 09/30/17 10/01/17 10/01/17 10/01/17 07:00 15:00 23:00 07:00 15:00 23:00 Intake Total 715 ml 720 ml 240 ml Output Total 90 ml Balance 715 ml 630 ml 240 ml Intake Oral 240 ml 720 ml 240 ml Packed Cells 400 ml Blood Product IV Normal Saline Flush 75 ml Drainage Total 90 ml # Voids 3 2 3 # Bowel Movements 3 2 0 Result Diagram: 10/01/1771710/01/17717 Objective Remarks GENERAL: Much better than yesterday with her breathing, no distress, in good spirits SKIN: Stage 2 sacral ulcer is now stage 1, very small (not examined today) HEAD: NC/AT EYES: No conjunctival injection or drainage. ENT: No nasal discharge, no oral secretions NECK: Supple, no lymphadenopathy. No JVD. CARDIOVASCULAR: RRR, systolic murmur 1/6, no rubs or gallops, pulses symmetrical. RESPIRATORY: Crackles in lung bases but less than yesterday. No shortness of breath today. GASTROINTESTINAL: Abdomen soft, non-distended GENITOURINARY: CVA tenderness on right improved, nephrostomy tube with continued drainage MUSCULOSKELETAL: Extremities without clubbing, cyanosis, or edema. NEUROLOGICAL: Awake and alert. 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 Now with enlarging perinephric abscess. Urology on board. Also with initial delirium and finding of small acute vs. subacute infarction of left cortex of cerebellum. Neurology on board. Perinephric abscess drainage on 09/[address]. Discharge Planning Pending resolution of leukocytosis, results of cultures, stable clinically, perinephric abscess drainage, stable hemoglobin. Planning for discharge to an outpatient rehab facility versus SNF. Problem List: (1) Emphysematous pyelonephritis ICD Codes: N12 - Tubulo-interstitial nephritis, not specified as acute or chronic Status: Acute Plan: White count stable Platelets elevated Afebrile Emphysematous pyelonephritis involving the right kidney, repeat CT on 09/20 showing continued severe emphysematous pyelonephritis on the right with increase in size of the perinephric abscess, quite large on CT Urology on board, she is status post ureteral stent on right. Catheter placed into perinephric abscess on 09/27, minimal fluid drainage now Infectious disease also on board, helping to manage antibiotics. Blood culture positive for E.coli, urine with e.coli, colony counts improving. 09/22 urine culture with no growth E.coli growing from nephrostomy tube 09/22 and 09/23 blood cultures NG - Continue Rocephin 2g IV Q24H (started 09/22) - Diflucan 100 mg daily (started 09/22) discontinued 09/29/17 - Tylenol 650 mg every 6 hours PRN for flank pain. - Zofran 4 mg IV every 8 hours as needed for nausea and vomiting - Defer to urology on renal catheter removal, continues to drain fluid - Repeat CT of kidneys likely next week - Continue to follow clinically and follow for fevers, leukocytosis, inflammatory markers. (2) Bright red blood per rectum ICD Codes: K62.5 - Hemorrhage of anus and rectum Status: Acute Plan: A few drops of bright red blood per rectum noted in toilet bowel, not on stool itself. Negative hemoccult a few days ago. Has stable anemia status post 1 unit PRBC. - Monitor hemoglobin/hematocrit - Recheck hemoccult test - Negative colonoscopy 2 years ago - Does not report a history of hemorrhoids - Further workup depending on hgb/hct trends and hemoccult test (3) TACO (transfusion associated circulatory overload) ICD Codes: E87.71 - Transfusion associated circulatory overload Status: Acute Plan: Evidence of TACO post transfusion with shortness of breath, chest x-ray showing evidence of fluid overload, more crackles in lung bases, elevated BNP, cardiomegaly. Improved significantly with Lasix IV once. Now breathing much improved. - Supplemental oxygen as needed - Repeat Lasix only if needed - Assess daily I's and O's - Reported event to blood bank, workup pending (4) Anemia ICD Codes: D64.9 - Anemia, unspecified Status: Acute Plan: Anemia with iron studies in pattern of chronic disease. Hemoccult negative. Possibly some acute blood loss from abscess drainage procedure. Received 1 unit PRBC on 09/29/17. - Trial of ferrous sulfate 350 mg bid - Continue to monitor hemoglobin daily (5) Acute ischemic stroke ICD Codes: I63.9 - Cerebral infarction, unspecified Status: Acute Plan: MRI brain ordered 09/19 for altered mental status, some uncoordination with walking. Small acute versus subacute infarction of the left cerebellar cortex about 5 mm. Discussed finding with radiologist, Dr. Coley. He suggests that the infarction is anywhere from hours to several days old. He suggests that it does not correlate with her symptoms and is likely to not have any neurological effects given its location and size, likely came from an end artery as opposed to a major vessel. He suggests the possibility of a small septic emboli as the cause. Head MRA showing severe multi-vascular disease with occlusions and stenoses in multiple territories, suggesting possible embolic events. However, repeat brain MRI is the same as initial MRI, so not correlated with the findings on the MRA. TERRELL showed a PFO, but no vegetations. Carotid Doppler suggesting 50-60% stenosis of carotid arteries bilaterally. EEG with generalized slowing, likely encephalopathy. LE ultrasound to check for DVT (due to PFO) is negative. - Aspirin 325 mg daily - On statin, continue gemfibrozil from home - Cardiac monitoring - Has bilateral SCD's and prophylactic heparin. - Amlodipine, lisinopril for BP control - Neurology suggests not closing PFO. - Had long discussion with daughter and patient about anticoagulation given the PFO and possible embolization event. Daughter and patient both would like the treatment to consist only of aspirin for now. - Consulted neurology, cardiology (signed off), infectious disease, appreciate recommendations. (6) Stage 2 skin ulcer of sacral region ICD Codes: L89.152 - Pressure ulcer of sacral region, stage 2 Status: Chronic Plan: Very small stage 2 ulcer in sacral region, downgraded to stage 1 on - Occlusive hydrocolloid dressing daily - Turn every 2 hours - Up in chair as much as possible - Monitor for progression (7) Elevated troponin ICD Codes: R74.8 - Abnormal levels of other serum enzymes Status: Acute Plan: Elevated troponin, but remained relatively flat. Cardiology consulted, suggesting likely demand mediated in the context of kidney disease. - May consider Lexiscan depending on recovery. (8) Diabetes mellitus ICD Codes: E11.9 - Type 2 diabetes mellitus without complications Status: Chronic Plan: Very poor control at home. A1C 12.2. Has not been taking her oral medications at home and not on insulin. Poor understanding of diabetes. Only on glipizide at home. - Low dose sliding scale insulin. - Levemir 10 units at night. - Glucose checks before meals and at bedtime - Diabetic diet - Consulted certified adapted physical educator - Consulted case management to assess possible reasons for poor compliance and attendance at office visits - Likely will need insulin at home (9) Hypertension Status: Chronic Plan: History of hypertension - Continue home dose of amlodipine and lisinopril - Vasotec PRN (10) Dyslipidemia ICD Codes: E78.5 - Dyslipidemia Status: Chronic Plan: Continue home gemfibrozil Started Pravastatin 40 mg daily (11) FEN/PPX Plan: Fluids: PO Electrolytes: Monitor and replace as needed, monitor renal function Nutrition: Renal diet DVT: Stopped heparin due to anemia, blood per rectum, and is much more mobile. Continue with SCD's, encourage ambulation. CODE STATUS: Full code Eric Bertrand MD R3 Oct 01, 2017 12:11
[2017-10-01] MEDS: cefTRIAXone INJ 2,000 MG in SODIUM CHLORIDE 0.9% INJ 100 ML IV SCH (17:58)
[2017-10-01] MEDS: PRAVASTATIN SOD 40 MG TAB PO SCH (21:54)
[2017-10-01] MEDS: INSULIN DETEMIR 100 UNITS/ML VIAL SQ SCH (21:58)
[2017-10-02] VITALS (7 sets, daily range): BP systolic 138–167; BP diastolic 65–81; PULSE 65–82; RESP 18–20; TEMP 97.5–100; O2SAT 94–96
[2017-10-02] MEDS: ACETAMINOPHEN 325 MG TAB PO SCH ×3 (03:32→17:44)
[2017-10-02] MEDS: GEMFIBROZIL 600 MG TAB PO SCH ×2 (06:51→17:44)
[2017-10-02 08:22] LABS: HEMATOCRIT 23.1 % (35.0-46.0); MEAN CELL VOLUME 89.3 FL (80.0-100.0); MEAN CORPUSCULAR HEMOGLOBIN 29.2 PG (27.0-34.0); MEAN CORPUSCULAR HGB CONC 32.7 % (32.0-36.0); PLATELET COUNT 647 TH/MM3 (150-450); RED BLOOD COUNT 2.59 MIL/MM3 (4.00-5.30); RED CELL DISTRIBUTION WIDTH 14.8 % (11.6-17.2); REVIEW FLAG FINAL; WHITE BLOOD COUNT 13.1 TH/MM3 (4.0-11.0)
[2017-10-02 08:41] LABS: BICARBONATE 24.3 MEQ/L (21.0-32.0); POTASSIUM 3.9 MEQ/L (3.5-5.1)
[2017-10-02] MEDS: FERROUS SULFATE 325 MG (65 MG ELEMENTAL IRON) TAB PO SCH ×2 (09:41→20:58)
[2017-10-02] MEDS: LACTOBACILLUS ACIDOPHILUS TAB PO SCH ×2 (09:41→20:58)
[2017-10-02] MEDS: ASPIRIN 325 MG TAB PO SCH (09:41)
[2017-10-02] MEDS: SODIUM CHLORIDE 0.9% FLUSH 10 ML FLUSH IV FLUSH SCH ×2 (09:42→20:59)
[2017-10-02] MEDS: LABETALOL HCL 100 MG TAB PO SCH ×2 (09:42→20:58)
[2017-10-02] MEDS: INSULIN ASPART SUPPLEMENTAL SCALE SQ SCH ×4 (09:42→22:11)
[2017-10-02] MEDS: LISINOPRIL 20 MG TAB PO SCH (09:42)
--- NOTE | 2017-10-02 11:05 | HHI.FPPN ---
Subjective Remarks Sitting up in bed, no distress. Reports breathing is much better. No chest pain or shortness of breath. She has increasing right flank pain since yesterday. Also she has temperature up to 100.0 overnight and her wehite count increased to 13.1 from 12.6. She has no nausea or vomiting. No diarrhea. Her nephrostomy tube continues to drain, about 100 cc's this morning and it was drained early this morning. Objective Vitals Vital Signs Date Time Temp Pulse Resp B/P (MAP) Pulse Ox O2 Delivery O2 Flow Rate FiO2 10/02/17 04:00 100.0 82 20 167/71 (103) 94 10/02/17 00:00 99.4 71 20 142/65 (90) 95 10/01/17 20:01 68 10/01/17 20:00 98.3 75 20 157/71 (99) 96 10/01/17 19:54 Nasal Cannula 2.00 10/01/17 16:00 98.2 73 20 159/83 (108) 94 10/01/17 12:00 98.3 71 20 144/66 (92) 94 I/O 10/01/17 10/01/17 10/01/17 10/02/17 10/02/17 10/02/17 07:00 15:00 23:00 07:00 15:00 23:00 Intake Total 240 ml 1060 ml 480 ml Output Total 50 ml Balance 240 ml 1010 ml 480 ml Intake Oral 240 ml 960 ml 480 ml IV Total 100 ml Drainage Total 50 ml # Voids 3 4 3 # Bowel Movements 0 0 1 Result Diagram: 10/02/1761010/02/17 06 Objective Remarks GENERAL: No distress, increased right flank pain SKIN: Stage 2 sacral ulcer is now stage 1, very small (not examined today) HEAD: NC/AT EYES: No conjunctival injection or drainage. ENT: No nasal discharge, no oral secretions NECK: Supple, no lymphadenopathy. No JVD. CARDIOVASCULAR: RRR, systolic murmur 1/6, no rubs or gallops, pulses symmetrical. RESPIRATORY: Crackles in lung bases but less than yesterday. No shortness of breath today. GASTROINTESTINAL: Abdomen soft, non-distended GENITOURINARY: CVA tenderness on right worse today, nephrostomy tube with continued drainage MUSCULOSKELETAL: Extremities without clubbing, cyanosis, or edema. NEUROLOGICAL: Awake and alert. 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 Now with enlarging perinephric abscess. Urology on board. Also with initial delirium and finding of small acute vs. subacute infarction of left cortex of cerebellum. Neurology on board. Perinephric abscess drainage on 09/[address]. Discharge Planning Pending resolution of leukocytosis, results of cultures, stable clinically, perinephric abscess drainage, stable hemoglobin. Planning for discharge to an outpatient rehab facility versus SNF. Problem List: (1) Emphysematous pyelonephritis ICD Codes: N12 - Tubulo-interstitial nephritis, not specified as acute or chronic Status: Acute Plan: White count with mild increase Platelets elevated, acute phase reaction Temp up to 100.0 overnight Emphysematous pyelonephritis involving the right kidney, repeat CT on 09/20 showing continued severe emphysematous pyelonephritis on the right with increase in size of the perinephric abscess, quite large on CT Urology on board, she is status post ureteral stent on right. Catheter placed into perinephric abscess on 09/27, continuing to drain fluid Infectious disease also on board, helping to manage antibiotics. Blood culture positive for E.coli, urine with e.coli, colony counts improving. 09/22 urine culture with no growth E.coli growing from nephrostomy tube 09/22 and 09/23 blood cultures NG Repeat blood and urine cultures ordered 10/02, pending - Continue Rocephin 2g IV Q24H (started 09/22) - Diflucan 100 mg daily (started 09/22) discontinued 09/29/17 - Tylenol 650 mg every 6 hours PRN for flank pain. - Zofran 4 mg IV every 8 hours as needed for nausea and vomiting - Defer to urology on renal catheter removal, continues to drain fluid - Repeat CT of kidneys likely tomorrow, may be reforming abscess - Continue to follow clinically and follow for fevers, leukocytosis, inflammatory markers. (2) Bright red blood per rectum ICD Codes: K62.5 - Hemorrhage of anus and rectum Status: Acute Plan: A few drops of bright red blood per rectum noted in toilet bowel, not on stool itself. Negative hemoccult a few days ago. Has stable anemia status post 1 unit PRBC. Repeated hemoccult on 10/01, again negative. - Monitor hemoglobin/hematocrit - Negative colonoscopy 2 years ago - Does not report a history of hemorrhoids (3) TACO (transfusion associated circulatory overload) ICD Codes: E87.71 - Transfusion associated circulatory overload Status: Acute Plan: Evidence of TACO post transfusion with shortness of breath, chest x-ray showing evidence of fluid overload, more crackles in lung bases, elevated BNP, cardiomegaly. Improved significantly with Lasix IV once. Now breathing much improved, crackles resolved. - Supplemental oxygen as needed - Repeat Lasix only if needed - Assess daily I's and O's - Reported event to blood bank, workup pending (4) Anemia ICD Codes: D64.9 - Anemia, unspecified Status: Acute Plan: Anemia with iron studies in pattern of chronic disease. Hemoccult negative. Possibly some acute blood loss from abscess drainage procedure. Received 1 unit PRBC on 09/29/17. - Trial of ferrous sulfate 350 mg bid - Continue to monitor hemoglobin daily (5) Acute ischemic stroke ICD Codes: I63.9 - Cerebral infarction, unspecified Status: Acute Plan: MRI brain ordered 09/19 for altered mental status, some uncoordination with walking. Small acute versus subacute infarction of the left cerebellar cortex about 5 mm. Discussed finding with radiologist, Dr. Coley. He suggests that the infarction is anywhere from hours to several days old. He suggests that it does not correlate with her symptoms and is likely to not have any neurological effects given its location and size, likely came from an end artery as opposed to a major vessel. He suggests the possibility of a small septic emboli as the cause. Head MRA showing severe multi-vascular disease with occlusions and stenoses in multiple territories, suggesting possible embolic events. However, repeat brain MRI is the same as initial MRI, so not correlated with the findings on the MRA. TERRELL showed a PFO, but no vegetations. Carotid Doppler suggesting 50-60% stenosis of carotid arteries bilaterally. EEG with generalized slowing, likely encephalopathy. LE ultrasound to check for DVT (due to PFO) is negative. - Aspirin 325 mg daily - On statin, continue gemfibrozil from home - Cardiac monitoring - Has bilateral SCD's and prophylactic heparin. - Amlodipine, lisinopril for BP control - Neurology suggests not closing PFO. - Had long discussion with daughter and patient about anticoagulation given the PFO and possible embolization event. Daughter and patient both would like the treatment to consist only of aspirin for now. - Consulted neurology, cardiology (signed off), infectious disease, appreciate recommendations. (6) Stage 2 skin ulcer of sacral region ICD Codes: L89.152 - Pressure ulcer of sacral region, stage 2 Status: Chronic Plan: Very small stage 2 ulcer in sacral region, downgraded to stage 1 on - Occlusive hydrocolloid dressing daily - Turn every 2 hours - Up in chair as much as possible - Monitor for progression (7) Elevated troponin ICD Codes: R74.8 - Abnormal levels of other serum enzymes Status: Acute Plan: Elevated troponin, but remained relatively flat. Cardiology consulted, suggesting likely demand mediated in the context of kidney disease. - May consider Lexiscan depending on recovery. (8) Diabetes mellitus ICD Codes: E11.9 - Type 2 diabetes mellitus without complications Status: Chronic Plan: Very poor control at home. A1C 12.2. Has not been taking her oral medications at home and not on insulin. Poor understanding of diabetes. Only on glipizide at home. - Low dose sliding scale insulin. - Levemir 10 units at night. - Glucose checks before meals and at bedtime - Diabetic diet - Consulted tool repairer - Consulted case management to assess possible reasons for poor compliance and attendance at office visits - Likely will need insulin at home (9) Hypertension Status: Chronic Plan: History of hypertension - Continue home dose of amlodipine and lisinopril - Vasotec PRN (10) Dyslipidemia ICD Codes: E78.5 - Dyslipidemia Status: Chronic Plan: Continue home gemfibrozil Started Pravastatin 40 mg daily (11) FEN/PPX Plan: Fluids: PO Electrolytes: Monitor and replace as needed, monitor renal function Nutrition: Renal diet DVT: Stopped heparin due to anemia, blood per rectum, and is much more mobile. Continue with SCD's, encourage ambulation. CODE STATUS: Full code Eric Bertrand MD R3 Oct 02, 2017 11:05
--- NOTE | 2017-10-02 11:52 | HHI.FPPN ---
Eric Bertrand MD R3 Oct 02, 2017 11:52
--- NOTE | 2017-10-02 12:10 | HHI.FPPN ---
Addendum to progress note ADDENDUM Reason for addendum: Additonal documentation Additional information OFF SERVICE NOTE Mrs. Cohen is a very pleasant 67 year old female who presented to the ED on with right sided flank pain. Subsequent workup showed severe sepsis, emphysematous pyelonephritis of her right side, acute kidney injury with creatinine up to 2.88, and very uncontrolled type II diabetes mellitus with a glucose of 500 on admission. Urology was consulted on the day of admission. She had a ureteral stent placed on 09/17. White count initially improved back to normal on 09/20. However, she started to have fevers and leukocytosis again and a nephrostomy tube had to be placed for perinephric abscess on 09/22. The catheter remains in her right kidney to date and continues to drain. Urology is still following and we are deferring to them on management of the nephrostomy tube. To date, her white count was improving but today increased slightly with a temperature up to 100.0. She may need a repeat CT of her kidney to assess for reaccumulation of abscess and the catheter may need to be readjusted. I also repeated urine culture and blood cultures today (10/02/17) and those will be pending. On 09/19 she was having altered mental status with increasing confusion and some uncoordination with walking. MRI of the brain was ordered which showed a small acute versus subacute infarction of the left cerebellar cortex about 5 mm. Further workup was negative for any blood clots or cardiac lesions. She is on a statin and gemfibrozil (from home) and aspirin. ECHO did show a PFO. Had long discussion with daughter and patient and they decided on just managing with aspirin only rather than anticoagulation. She has been anemic and required blood transfusion. As a complication she developed TACO with increased shortness of breath, chest x ray showing fluid overload, crackles in the lung bases, cardiomegaly, and elevated BNP. She was given IV Lasix one time and improved significantly. The event was reported to the blood bank. She remains anemic with iron studies suggesting anemia of chronic disease. She is on ferrous sulfate empirically to see if her hgb will improve. Hemoccult X2 has been negative. She did have BRBPR once with just a few drops in the toilet bowel and not on the stool itself, but hemoccult afterwards was negative. We are monitoring hemoglobin daily. She has stage 1 ulcer on her sacrum that needs to be monitored periodically. Suggested turning the patient frequently and to keep her as mobile as possible and out of the bed. She had elevated troponin that remained flat, likely as a result of kidney disease. Cardiology was considering possible Lexiscan depending on her recovery process. Her diabetes is very easy to control. She is getting 10 units Levemir at night and low dose sliding scale. Have discussed multiple times diabetes education. Eric Bertrand MD R3 Oct 02, 2017 12:10
[2017-10-02 14:17] LABS: BACTERIA, URINE MOD /hpf; BLOOD, URINE SMALL (NEG); GLUCOSE,URINE NEG (NEG); KETONE, URINE NEG (NEG); NITRITE,URINE NEG (NEG); SQUAMOUS EPITHELIAL CELL URINE <1 /hpf (0-5); URINE COLOR LIGHT-YELLOW (YELLW/STRAW)
[2017-10-02 14:20] LABS: COMMENT (UR) CATH-CULTURE IND; CULTURE IF INDICATED CATH CULTURE IND
[2017-10-02] MEDS: cefTRIAXone INJ 2,000 MG in SODIUM CHLORIDE 0.9% INJ 100 ML IV SCH (17:44)
[2017-10-02] MEDS: PRAVASTATIN SOD 40 MG TAB PO SCH (20:58)
[2017-10-02] MEDS: INSULIN DETEMIR 100 UNITS/ML VIAL SQ SCH (22:11)
[2017-10-03] VITALS (8 sets, daily range): BP systolic 135–162; BP diastolic 67–95; PULSE 67–76; RESP 19–20; TEMP 97.8–99; O2SAT 95–96
[2017-10-03] MEDS: ACETAMINOPHEN 325 MG TAB PO SCH ×5 (00:08→23:54)
[2017-10-03] MEDS: GEMFIBROZIL 600 MG TAB PO SCH ×2 (06:03→17:22)
[2017-10-03] MEDS: INSULIN ASPART SUPPLEMENTAL SCALE SQ SCH ×4 (08:00→21:32)
[2017-10-03 08:07] LABS: HEMATOCRIT 23.5 % (35.0-46.0); MEAN CELL VOLUME 89.4 FL (80.0-100.0); MEAN CORPUSCULAR HEMOGLOBIN 29.5 PG (27.0-34.0); PLATELET COUNT 629 TH/MM3 (150-450); RED BLOOD COUNT 2.63 MIL/MM3 (4.00-5.30); RED CELL DISTRIBUTION WIDTH 14.4 % (11.6-17.2); REVIEW FLAG FINAL; WHITE BLOOD COUNT 12.6 TH/MM3 (4.0-11.0)
[2017-10-03 08:28] LABS: BICARBONATE 23.5 MEQ/L (21.0-32.0); POTASSIUM 3.8 MEQ/L (3.5-5.1)
[2017-10-03] MEDS: FERROUS SULFATE 325 MG (65 MG ELEMENTAL IRON) TAB PO SCH ×2 (09:10→21:31)
[2017-10-03] MEDS: LISINOPRIL 20 MG TAB PO SCH (09:10)
[2017-10-03] MEDS: SODIUM CHLORIDE 0.9% FLUSH 10 ML FLUSH IV FLUSH SCH ×2 (09:10→21:31)
[2017-10-03] MEDS: LACTOBACILLUS ACIDOPHILUS TAB PO SCH ×2 (09:10→21:31)
[2017-10-03] MEDS: LABETALOL HCL 100 MG TAB PO SCH ×2 (09:10→21:31)
[2017-10-03] MEDS: ASPIRIN 325 MG TAB PO SCH (09:10)
--- NOTE | 2017-10-03 11:36 | HHI.FPPN ---
Subjective Remarks Mrs. Cohen was afebrile with mild HTN (SBP 140's-160's) overnight. Patient reports that she has been doing well working with physical therapy but that she gets fatigued easily. Patient also reports some continued shortness of breath but feels that she is breathing better. Patient reports normal urine output. Patient has continued nephrostomy drainage (100ml overnight per EMR); patient also has continued back pain around area of nephrostomy insertion. Normal oral intake and bowel movements without abdominal pain. (Austin Thompson MD, R3) Objective Vitals Vital Signs Date Time Temp Pulse Resp B/P (MAP) Pulse Ox O2 Delivery O2 Flow Rate FiO2 10/03/17 10:56 76 10/03/17 09:21 Nasal Cannula 1.00 10/03/17 08:00 98.3 71 20 149/75 (99) 95 10/03/17 04:00 98.0 68 20 147/67 (93) 95 10/03/17 01:08 16 10/03/17 01:08 16 10/03/17 00:00 98.3 71 19 162/73 (102) 95 10/02/17 20:00 67 10/02/17 20:00 Nasal Cannula 2.00 10/02/17 20:00 98.3 74 18 161/70 (100) 94 10/02/17 16:00 98.0 73 20 161/73 (102) 94 10/02/17 12:00 97.8 70 20 138/65 (89) 94 I/O 10/02/17 10/02/17 10/02/17 10/03/17 10/03/17 10/03/17 07:00 15:00 23:00 07:00 15:00 23:00 Intake Total 480 ml 1060 ml 240 ml Output Total 50 ml 50 ml Balance 480 ml 1010 ml 190 ml Intake Oral 480 ml 960 ml 240 ml IV Total 100 ml Drainage Total 50 ml 50 ml # Voids 3 4 4 # Bowel Movements 1 2 2 (Austin Thompson MD, R3) Result Diagram: 10/03/17 0715 10/03/17 0715 Imaging Last Impressions Chest X-Ray 09/30/17 0000 Signed Impressions: Service Date/Time: Saturday, September 30, 2017 12:49 - CONCLUSION: 1. Cardiomegaly. 2. Mild increased perihilar interstitial markings consistent with mild congestion and/or scattered atelectasis. Daniel Portillo MD Retroperitoneal Abscess Drainage 09/27/17 Signed Impressions: Service Date/Time: Wednesday, September 27, 2017 15:35 - CONCLUSION: Uncomplicated CT-guided drainage of right perinephric abscess with placement of 8 Austrian locking pigtail catheter yielding approximately 150 cc of cloudy, pink, pus- like fluid which was sent for culture and sensitivity. Daniel Portillo MD Consultation 09/26/17 Signed Impressions: Service Date/Time: Tuesday, September 26, 2017 00:00 - CONCLUSION: The right perinephric abscess is not accessible percutaneously due to its anterior position. Daniel Portillo MD Abdomen/Pelvis CT 09/24/17 Signed Impressions: Service Date/Time: Sunday, September 24, 2017 11:24 - CONCLUSION: 1. Persistent severe emphysematous pyelonephritis on the right with increase in the size of the perinephric abscess surrounding the right kidney. 2. Small bilateral pleural effusions with adjacent compressive atelectasis. 3. Enlarged uterus. Daniel Portillo MD Lower Extremity Ultrasound 09/22/17 Signed Impressions: Service Date/Time: August 08:57 - CONCLUSION: The study is negative for deep venous thrombosis bilateral lower extremity. Corey Coley MD Brain MRI 09/21/17 Signed Impressions: Service Date/Time: Thursday, September 21, 2017 16:48 - CONCLUSION: Stable size and appearance to the small area of restricted diffusion in the left cerebellum. No new findings. Corey Coley MD Neck Magnetic Resonance Angiography 09/20/17 1736 Signed Impressions: Service Date/Time: Wednesday, September 20, 2017 08:19 - CONCLUSION: 1. Technically limited examination with nonvisualization of the arch and distal aspect of the vertebral/internal. 2. Midportion of the vertebrals and both carotid bifurcations appear to be patent. 3. If there is a clinical concern for significant cervical vascular disease, CTA of the neck vasculature may be considered for further characterization. Rony Sarabia MD Head Magnetic Resonance Angiography 09/20/176 Signed Impressions: Service Date/Time: Wednesday, September 20, 2017 08:19 - CONCLUSION: 1. MRI suggests severe multi-vascular territory disease with short segment occlusion/high-grade stenosis in the distal left internal carotid, the left M1 segment and occlusion of the right MCA territory near its origin. There also appear to be segmental stenoses in the posterior cerebral arteries as well. Findings are suggestive of a multi-territory embolic event. 2. However, findings are discordant from the most recent MRI of the brain performed one day earlier which only showed minimal diffusion restriction in the left PICA distribution. Unless the patient has had a recent cerebrovascular event in the last 24 hours , I would suggest CTA of the intracranial circulation for further characterization. Rony Sarabia MD Carotid Artery Ultrasound 09/19/17 0000 Signed Impressions: Service Date/Time: Tuesday, September 19, 2017 16:45 - CONCLUSION: Moderate disease in the carotid bifurcations bilaterally with subjective measures suggesting stenosis potentially on the order of 50-60%% Maycol Merritt MD Objective Remarks GENERAL: No distress, increased right flank pain SKIN: Stage 2 sacral ulcer is now stage 1, very small (not examined today) HEAD: NC/AT EYES: No conjunctival injection or drainage. ENT: No nasal discharge, no oral secretions NECK: Supple, no lymphadenopathy. CARDIOVASCULAR: RRR, systolic murmur 1/6. Normal peripheral perfusion. Mild bilateral LE edema. RESPIRATORY: CTAB; normal rate. GASTROINTESTINAL: Abdomen soft, non-distended GENITOURINARY: CVA tenderness on right persistent, nephrostomy tube with persistent brown/yellowish/clearish drainage MUSCULOSKELETAL: Grossly normal motor function and ROM NEUROLOGICAL: Awake and alert. 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 Now with enlarging perinephric abscess. Urology on board. Also with initial delirium and finding of small acute vs. subacute infarction of left cortex of cerebellum. Neurology on board. Perinephric abscess drainage on 09/[address]. Discharge Planning Pending resolution of leukocytosis, results of cultures, stable clinically, perinephric abscess drainage, stable hemoglobin. Planning for discharge to an outpatient rehab facility versus SNF. (Austin Thompson MD, R3) Attending Attestation Patient seen and examined. Case reviewed and discussed with the resident team. Agree with plan of care as discussed with me and documented in the resident note. saw her when first admitted and she was septic and extremely ill. Much better today (Desirae Clark MD) Problem List: (1) Emphysematous pyelonephritis ICD Codes: N12 - Tubulo-interstitial nephritis, not specified as acute or chronic Status: Acute Plan: White count mildly elevated, stable (WBC 12-13) Platelets elevated, acute phase reaction Temp intermittently mildly elevated to 100F Imaging: Emphysematous pyelonephritis involving the right kidney, repeat CT on 09/20 showing continued severe emphysematous pyelonephritis on the right with increase in size of the perinephric abscess, quite large on CT Catheter placed into perinephric abscess on 09/27, continuing to drain fluid Cultures: E Coli from nephrostomy tube (09/27) E Coli from blood cultures (09/20, 09/17, 09/16) E Coli from urine culture (09/19, 09/16) *Resistant to Ampicillin and Unasyn but otherwise sensitive Subsequent blood and urine cultures: -Urine 10/02 negative x24 hrs -Blood 10/02 negative x24hrs - Continue to follow clinically and follow for fevers, leukocytosis, inflammatory markers. -Consider repeat CT to monitor progress of drainage Urology consulted -status post ureteral stent on right IR consulted -s/p R nephrostomy tube (09/27) Infectious disease also on board, helping to manage antibiotics. - Continue Rocephin 2g IV Q24H (started 09/22) S/p Diflucan 100 mg daily (started 09/22) discontinued 09/29/17 - Tylenol 650 mg every 6 hours PRN for flank pain. - Zofran 4 mg IV every 8 hours as needed for nausea and vomiting (2) Bright red blood per rectum ICD Codes: K62.5 - Hemorrhage of anus and rectum Status: Resolved Plan: A few drops of bright red blood per rectum noted in toilet bowel, not on stool itself. Negative hemoccult a few days ago. Does not report a history of hemorrhoids.Negative colonoscopy 2 years ago Has stable anemia status post 1 unit PRBC. Repeated Hemoccult on 10/01, again negative. - Monitor hemoglobin/hematocrit - If repeat transfusion, have concern due to prior pulmonary congestion/TACO (3) TACO (transfusion associated circulatory overload) ICD Codes: E87.71 - Transfusion associated circulatory overload Status: Resolved Plan: Evidence of TACO post transfusion with shortness of breath, chest x-ray showing evidence of fluid overload, more crackles in lung bases, elevated BNP, cardiomegaly. Improved significantly with Lasix IV once. Now breathing much improved, crackles resolved. - Supplemental oxygen as needed - Repeat Lasix only if needed - Assess daily I's and O's - Reported event to blood bank, workup pending (4) Anemia ICD Codes: D64.9 - Anemia, unspecified Status: Acute Plan: Anemia with iron studies in pattern of chronic disease. Hemoccult negative. Possibly some acute blood loss from abscess drainage procedure. Received 1 unit PRBC on 09/29/17. - Trial of ferrous sulfate 350 mg bid - Continue to monitor hemoglobin daily (5) Acute ischemic stroke ICD Codes: I63.9 - Cerebral infarction, unspecified Status: Acute Plan: Impression: MRI brain ordered 09/19 for altered mental status, some uncoordination with walking: Small acute versus subacute infarction of the left cerebellar cortex about 5 mm. (Dr. Bertrand discussed finding with radiologist, Dr. Coley- estimated from hours to several days old; does not correlate with her symptoms and is likely to not have any neurological effects given its location and size, likely came from an end artery as opposed to a major vessel.Possible small septic emboli as the cause). Head MRA: showing severe multi-vascular disease with occlusions and stenoses in multiple territories, suggesting possible embolic events. Repeat brain MRI is the same as initial MRI, so not correlated with the findings on the MRA. TERRELL showed a PFO, but no vegetations. Carotid Doppler suggesting 50-60% stenosis of carotid arteries bilaterally. EEG with generalized slowing, likely encephalopathy. LE ultrasound to check for DVT (due to PFO) is negative. - Consulted neurology, cardiology (signed off), infectious disease, appreciate recommendations. - Neurology suggests not closing PFO. - Aspirin 325 mg daily -Per discussion between Dr. Bertrand, patient, and her daughter, anticoagulation considered given the PFO and possible embolization event but patient elected to continue ASA at this time - On statin, continue gemfibrozil from home - Cardiac monitoring - Has bilateral SCD's and prophylactic heparin. - Amlodipine, lisinopril for BP control (6) Stage 2 skin ulcer of sacral region ICD Codes: L89.152 - Pressure ulcer of sacral region, stage 2 Status: Chronic Plan: Very small stage 2 ulcer in sacral region, downgraded to stage 1 on - Occlusive hydrocolloid dressing daily - Turn every 2 hours - Up in chair as much as possible - Monitor for progression (7) Elevated troponin ICD Codes: R74.8 - Abnormal levels of other serum enzymes Status: Acute Plan: Elevated troponin, but remained relatively flat. Cardiology consulted, suggesting likely demand mediated in the context of kidney disease. - May consider Lexiscan depending on recovery. (8) Diabetes mellitus ICD Codes: E11.9 - Type 2 diabetes mellitus without complications Status: Chronic Plan: Very poor control at home. A1C 12.2. Has not been taking her oral medications at home and not on insulin. Poor understanding of diabetes. Only on glipizide at home. - Low dose sliding scale insulin. - Levemir 10 units at night. - Glucose checks before meals and at bedtime - Diabetic diet - Consulted reactor technician - Consulted case management to assess possible reasons for poor compliance and attendance at office visits - Likely will need insulin at home (9) Hypertension Status: Chronic Plan: History of hypertension - Continue home dose of amlodipine and lisinopril - Vasotec PRN (10) Dyslipidemia ICD Codes: E78.5 - Dyslipidemia Status: Chronic Plan: Continue home gemfibrozil Started Pravastatin 40 mg daily (11) FEN/PPX Status: Acute Plan: Fluids: PO Electrolytes: Monitor and replace as needed, monitor renal function Nutrition: Renal diet DVT: Stopped heparin due to anemia, blood per rectum, and is much more mobile. Continue with SCD's, encourage ambulation. CODE STATUS: Full code (Austin Thompson MD, R3) Problem Qualifiers (1) Anemia: Qualified Codes: D64.9 - Anemia, unspecified Austin Thompson MD, R3 Oct 03, 2017 11:36 Desirae Clark MD Oct 08, 2017 12:34
[2017-10-03] MEDS: cefTRIAXone INJ 2,000 MG in SODIUM CHLORIDE 0.9% INJ 100 ML IV SCH (17:23)
[2017-10-03] MEDS: PRAVASTATIN SOD 40 MG TAB PO SCH (21:31)
[2017-10-03] MEDS: INSULIN DETEMIR 100 UNITS/ML VIAL SQ SCH (21:32)
[2017-10-04] VITALS (10 sets, daily range): BP systolic 143–190; BP diastolic 65–83; PULSE 67–82; RESP 18–22; TEMP 98.1–99.4; O2SAT 93–95
[2017-10-04] MEDS: RESP: ALBUTEROL 2.5 MG/IPRATROPIUM 0.5 MG NEB (PRN) NEB ×2 (00:15→22:42)
[2017-10-04] MEDS: GEMFIBROZIL 600 MG TAB PO SCH ×2 (05:56→16:51)
[2017-10-04] MEDS: ACETAMINOPHEN 325 MG TAB PO SCH ×4 (05:56→23:57)
[2017-10-04] MEDS: INSULIN ASPART SUPPLEMENTAL SCALE SQ SCH ×4 (08:00→20:44)
[2017-10-04 09:36] LABS: AUTOMATED NEUTROPHIL # 10.4 TH/MM3 (1.8-7.7); BASOPHIL # 0.1 TH/MM3 (0-0.2); EOSINOPHIL # 0.2 TH/MM3 (0-0.4); EOSINOPHIL % 1.4 % (0.0-4.0); HEMATOCRIT 23.7 % (35.0-46.0); HEMO FLAGS DIFF FINAL; LYMPH % 11.6 % (9.0-44.0); LYMPHOCYTE # 1.5 TH/MM3 (1.0-4.8); MEAN CELL VOLUME 89.1 FL (80.0-100.0); MEAN CORPUSCULAR HEMOGLOBIN 29.4 PG (27.0-34.0); MONO % 5.1 % (0.0-8.0); NEUT % 80.9 % (16.0-70.0); PLATELET COUNT 614 TH/MM3 (150-450); RED BLOOD COUNT 2.66 MIL/MM3 (4.00-5.30); WHITE BLOOD COUNT 12.8 TH/MM3 (4.0-11.0)
[2017-10-04] MEDS: SODIUM CHLORIDE 0.9% FLUSH 10 ML FLUSH IV FLUSH SCH ×2 (10:01→20:45)
[2017-10-04 10:02] LABS: POTASSIUM 3.9 MEQ/L (3.5-5.1)
[2017-10-04] MEDS: LACTOBACILLUS ACIDOPHILUS TAB PO SCH ×2 (10:02→20:43)
[2017-10-04] MEDS: LABETALOL HCL 100 MG TAB PO SCH (10:02)
[2017-10-04] MEDS: FERROUS SULFATE 325 MG (65 MG ELEMENTAL IRON) TAB PO SCH ×2 (10:02→20:43)
[2017-10-04] MEDS: ASPIRIN 325 MG TAB PO SCH (10:02)
[2017-10-04] MEDS: LISINOPRIL 20 MG TAB PO SCH (10:03)
--- NOTE | 2017-10-04 10:25 | HHI.FPPN ---
Subjective Remarks Mrs. Cohen was afebrile with HTN overnight (SBP 140's-170's), O2 at 94-95 % on 2 L O2 via NC. Mrs. Cohen was interviewed while ambulating today; she reports that she is doing well overall. Patient ambulating well without increased shortness of breath. Patient reports continued mild nephrostomy output. No new complaints reported. (Austin Thompson MD, R3) Objective Vitals Vital Signs Date Time Temp Pulse Resp B/P (MAP) Pulse Ox O2 Delivery O2 Flow Rate FiO2 10/04/17 09:20 94 Nasal Cannula 2.00 10/04/17 08:00 98.1 76 20 179/77 (111) 94 10/04/17 04:00 99.4 78 22 164/78 (106) 93 10/04/17 00:57 18 10/04/17 00:57 18 10/04/17 00:16 94 Nasal Cannula 2.00 10/04/17 00:00 99.2 74 20 149/80 (103) 95 10/03/17 21:35 Nasal Cannula 1.00 10/03/17 20:33 67 10/03/17 20:00 99.0 72 20 150/70 (96) 95 10/03/17 16:00 97.9 67 20 135/95 (108) 96 10/03/17 12:00 97.8 67 20 142/71 (94) 95 10/03/17 10:56 76 I/O 10/03/17 10/03/17 10/03/17 10/04/17 10/04/17 10/04/17 07:00 15:00 23:00 07:00 15:00 23:00 Intake Total 240 ml 720 ml 720 ml Output Total 50 ml 50 ml Balance 190 ml 670 ml 720 ml Intake Oral 240 ml 720 ml 720 ml Drainage Total 50 ml 50 ml # Voids 4 5 4 # Bowel Movements 2 2 2 (Austin Thompson MD, R3) Result Diagram: 10/04/1716 10/04/17 0816 Imaging Last Impressions Chest X-Ray 09/30/17 0000 Signed Impressions: Service Date/Time: Saturday, September 30, 2017 12:49 - CONCLUSION: 1. Cardiomegaly. 2. Mild increased perihilar interstitial markings consistent with mild congestion and/or scattered atelectasis. Daniel Portillo MD Retroperitoneal Abscess Drainage 09/27/17 Signed Impressions: Service Date/Time: Wednesday, September 27, 2017 15:35 - CONCLUSION: Uncomplicated CT-guided drainage of right perinephric abscess with placement of 8 Polish locking pigtail catheter yielding approximately 150 cc of cloudy, pink, pus- like fluid which was sent for culture and sensitivity. Daniel Portillo MD Consultation 09/26/17 Signed Impressions: Service Date/Time: Tuesday, September 26, 2017 00:00 - CONCLUSION: The right perinephric abscess is not accessible percutaneously due to its anterior position. Daniel Portillo MD Abdomen/Pelvis CT 09/24/17 Signed Impressions: Service Date/Time: Sunday, September 24, 2017 11:24 - CONCLUSION: 1. Persistent severe emphysematous pyelonephritis on the right with increase in the size of the perinephric abscess surrounding the right kidney. 2. Small bilateral pleural effusions with adjacent compressive atelectasis. 3. Enlarged uterus. Daniel Portillo MD Lower Extremity Ultrasound 09/22/17 Signed Impressions: Service Date/Time: August 08:57 - CONCLUSION: The study is negative for deep venous thrombosis bilateral lower extremity. Corey Coley MD Brain MRI 09/21/17 Signed Impressions: Service Date/Time: Thursday, September 21, 2017 16:48 - CONCLUSION: Stable size and appearance to the small area of restricted diffusion in the left cerebellum. No new findings. Corey Coley MD Neck Magnetic Resonance Angiography 09/20/171735 Signed Impressions: Service Date/Time: Wednesday, September 20, 2017 08:19 - CONCLUSION: 1. Technically limited examination with nonvisualization of the arch and distal aspect of the vertebral/internal. 2. Midportion of the vertebrals and both carotid bifurcations appear to be patent. 3. If there is a clinical concern for significant cervical vascular disease, CTA of the neck vasculature may be considered for further characterization. Rony Sarabia MD Head Magnetic Resonance Angiography 09/20/171735 Signed Impressions: Service Date/Time: Wednesday, September 20, 2017 08:19 - CONCLUSION: 1. MRI suggests severe multi-vascular territory disease with short segment occlusion/high-grade stenosis in the distal left internal carotid, the left M1 segment and occlusion of the right MCA territory near its origin. There also appear to be segmental stenoses in the posterior cerebral arteries as well. Findings are suggestive of a multi-territory embolic event. 2. However, findings are discordant from the most recent MRI of the brain performed one day earlier which only showed minimal diffusion restriction in the left PICA distribution. Unless the patient has had a recent cerebrovascular event in the last 24 hours , I would suggest CTA of the intracranial circulation for further characterization. Rony Sarabia MD Carotid Artery Ultrasound 09/19/17 0000 Signed Impressions: Service Date/Time: Tuesday, September 19, 2017 16:45 - CONCLUSION: Moderate disease in the carotid bifurcations bilaterally with subjective measures suggesting stenosis potentially on the order of 50-60%% Maycol Merritt MD Objective Remarks GENERAL: No distress SKIN: Stage 2 sacral ulcer is now stage 1, very small (not examined today) EYES: No conjunctival injection or drainage. CARDIOVASCULAR: No visible distress Mild bilateral LE edema. RESPIRATORY: Normal rate; no visible distress GASTROINTESTINAL: Abdomen soft, non-distended GENITOURINARY: nephrostomy tube with persistent drainage MUSCULOSKELETAL: Grossly normal motor function and ROM NEUROLOGICAL: Awake and alert. 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 Urology on board. Also with initial delirium and finding of small acute vs. subacute infarction of left cortex of cerebellum. Neurology on board. Perinephric abscess drainage on 09/[address]. Discharge Planning Pending resolution of leukocytosis, results of cultures, stable clinically, perinephric abscess drainage, stable hemoglobin. Planning for discharge to an outpatient rehab facility versus SNF. (Austin Thompson MD, R3) Attending Attestation Patient seen and examined. Case reviewed and discussed with the resident team. Agree with plan of care as discussed with me and documented in the resident note. she is planning on going to SNF at [facility] for rehab (Desirae Clark MD) Problem List: (1) Emphysematous pyelonephritis ICD Codes: N12 - Tubulo-interstitial nephritis, not specified as acute or chronic Status: Acute Plan: White count mildly elevated, stable (WBC 12-13) Platelets elevated, acute phase reaction Imaging: Emphysematous pyelonephritis involving the right kidney, repeat CT on 09/20 showing continued severe emphysematous pyelonephritis on the right with increase in size of the perinephric abscess, quite large on CT Catheter placed into perinephric abscess on 09/27, continuing to drain fluid Cultures: E Coli from nephrostomy tube (09/27) E Coli from blood cultures (09/20, 09/17, 09/16) E Coli from urine culture (09/19, 09/16) *Resistant to Ampicillin and Unasyn but otherwise sensitive Subsequent blood and urine cultures: -Urine 10/02 negative x24 hrs -Blood 10/02 negative x24hrs - Continue to follow clinically and follow for fevers, leukocytosis, inflammatory markers. -Consider repeat CT to monitor progress of drainage Urology consulted -status post ureteral stent on right IR consulted -s/p R nephrostomy tube (09/27) Infectious disease also on board, helping to manage antibiotics. - Continue Rocephin 2g IV Q24H (started 09/22) S/p Diflucan 100 mg daily (started 09/22) discontinued 09/29/17 - Tylenol 650 mg every 6 hours PRN for flank pain. - Zofran 4 mg IV every 8 hours as needed for nausea and vomiting (2) Bright red blood per rectum ICD Codes: K62.5 - Hemorrhage of anus and rectum Status: Resolved Plan: A few drops of bright red blood per rectum noted in toilet bowel, not on stool itself. Negative hemoccult a few days ago. Does not report a history of hemorrhoids.Negative colonoscopy 2 years ago Has stable anemia status post 1 unit PRBC. Repeated Hemoccult on 10/01, again negative. - Monitor hemoglobin/hematocrit - If repeat transfusion, have concern due to prior pulmonary congestion/TACO (3) TACO (transfusion associated circulatory overload) ICD Codes: E87.71 - Transfusion associated circulatory overload Status: Resolved Plan: Evidence of TACO post transfusion with shortness of breath, chest x-ray showing evidence of fluid overload, more crackles in lung bases, elevated BNP, cardiomegaly. Improved significantly with Lasix IV once. Now breathing much improved, crackles resolved. - Supplemental oxygen as needed - Repeat Lasix only if needed - Assess daily I's and O's - Reported event to blood bank, workup pending (4) Anemia ICD Codes: D64.9 - Anemia, unspecified Status: Acute Plan: Anemia with iron studies in pattern of chronic disease. Hemoccult negative. Possibly some acute blood loss from abscess drainage procedure. Received 1 unit PRBC on 09/29/17. - Trial of ferrous sulfate 350 mg bid - Continue to monitor hemoglobin daily (5) Acute ischemic stroke ICD Codes: I63.9 - Cerebral infarction, unspecified Status: Acute Plan: Impression: MRI brain ordered 09/19 for altered mental status, some uncoordination with walking: Small acute versus subacute infarction of the left cerebellar cortex about 5 mm. (Dr. Bertrand discussed finding with radiologist, Dr. Coley- estimated from hours to several days old; does not correlate with her symptoms and is likely to not have any neurological effects given its location and size, likely came from an end artery as opposed to a major vessel.Possible small septic emboli as the cause). Head MRA: showing severe multi-vascular disease with occlusions and stenoses in multiple territories, suggesting possible embolic events. Repeat brain MRI is the same as initial MRI, so not correlated with the findings on the MRA. TERRELL showed a PFO, but no vegetations. Carotid Doppler suggesting 50-60% stenosis of carotid arteries bilaterally. EEG with generalized slowing, likely encephalopathy. LE ultrasound to check for DVT (due to PFO) is negative. - Consulted neurology, cardiology (signed off), infectious disease, appreciate recommendations. - Neurology suggests not closing PFO. - Aspirin 325 mg daily -Per discussion between Dr. Bertrand, patient, and her daughter, anticoagulation considered given the PFO and possible embolization event but patient elected to continue ASA at this time - On statin, continue gemfibrozil from home - Cardiac monitoring - Has bilateral SCD's and prophylactic heparin. - Amlodipine, lisinopril for BP control (6) Hypertension Status: Chronic Plan: History of hypertension - Continue home dose of amlodipine and lisinopril -Will increase Labetalol to 200mg BID due to persistent HTN - Vasotec PRN (7) Stage 2 skin ulcer of sacral region ICD Codes: L89.152 - Pressure ulcer of sacral region, stage 2 Status: Chronic Plan: Very small stage 2 ulcer in sacral region, downgraded to stage 1 on - Occlusive hydrocolloid dressing daily - Turn every 2 hours - Up in chair as much as possible - Monitor for progression (8) Elevated troponin ICD Codes: R74.8 - Abnormal levels of other serum enzymes Status: Acute Plan: Elevated troponin, but remained relatively flat. Cardiology consulted, suggesting likely demand mediated in the context of kidney disease. - May consider Lexiscan depending on recovery. (9) Diabetes mellitus ICD Codes: E11.9 - Type 2 diabetes mellitus without complications Status: Chronic Plan: Very poor control at home. A1C 12.2. Has not been taking her oral medications at home and not on insulin. Poor understanding of diabetes. Only on glipizide at home. - Low dose sliding scale insulin. - Levemir 10 units at night. - Glucose checks before meals and at bedtime - Diabetic diet - Consulted staff educator - Consulted case management to assess possible reasons for poor compliance and attendance at office visits - Likely will need insulin at home (10) Dyslipidemia ICD Codes: E78.5 - Dyslipidemia Status: Chronic Plan: Continue home gemfibrozil Started Pravastatin 40 mg daily (11) FEN/PPX Status: Acute Plan: Fluids: PO Electrolytes: Monitor and replace as needed, monitor renal function Nutrition: Renal diet DVT: Stopped heparin due to anemia, blood per rectum, and is much more mobile. Continue with SCD's, encourage ambulation. CODE STATUS: Full code (Austin Thompson MD, R3) Problem Qualifiers (1) Anemia: Qualified Codes: D64.9 - Anemia, unspecified Austin Thompson MD, R3 Oct 04, 2017 10:25 Desirae Clark MD Oct 08, 2017 12:34
--- NOTE | 2017-10-04 12:01 | HHI.IDPN ---
Subjective Subjective Remarks Patient is a 67-year-old female, presented to the hospital complaining of three- day history of right-sided abdominal pain, and right flank pain. This was associated with nausea and vomiting as well as frequency and dysuria. She denies any hematuria. In the emergency room she was found to have a white count of 19,000. She has significant pyuria. Creatinine was also elevated. CT of the abdomen and pelvis showed evidence of air in the right kidney, right renal pelvis and also some air extending in the renal vein into the IVC. There is also a small amount of air seen in the hilum of the left kidney. There was some right hydronephrosis and ureter, but no kidney stones seen to cause obstruction. Patient has had prior history of bladder and kidney infection but not this severe. Patient also was found to have very high blood glucose. 2 blood cultures done and are now reported as growing gram-negative rods. Patient underwent surgery, and had cystoscopy and placement of a right ureteral stent. She has been afebrile since admission. Her white count remains elevated at 19,000. Infectious disease consultation has been requested to evaluate the patient with emphysematous pyelonephritis. Notes reviewed Temps ok Abdominal pain is gone Pain at drain site Drain output is purulent Has drain in R kidney R sided abdominal pain better WBC still up C/S fluid E coli Last (+) BC 09/20 with E coli TERRELL with PFO Antibiotics Rocephin Lines PIV Past Medical History Diabetes HTN Hypertriglyceridemia CAD Previous episodes of UTI Past Surgical History Caesarian section Allergies: Coded Allergies: metformin (Unverified Allergy, Severe, Numbness, 07/12/17) clonidine (Unverified Allergy, Unknown, 07/12/17) Objective . Vital Signs Date Time Temp Pulse Resp B/P (MAP) Pulse Ox O2 Delivery O2 Flow Rate FiO2 10/04/17 09:20 94 Nasal Cannula 2.00 10/04/17 08:00 98.1 76 20 179/77 (111) 94 10/04/17 04:00 99.4 78 22 164/78 (106) 93 10/04/17 00:57 18 10/04/17 00:57 18 10/04/17 00:16 94 Nasal Cannula 2.00 10/04/17 00:00 99.2 74 20 149/80 (103) 95 10/03/17 21:35 Nasal Cannula 1.00 10/03/17 20:33 67 10/03/17 20:00 99.0 72 20 150/70 (96) 95 10/03/17 16:00 97.9 67 20 135/95 (108) 96 10/03/17 12:00 97.8 67 20 142/71 (94) 95 . Laboratory Tests Test 10/03/17 07:15 10/04/17 08:16 White Blood Count 12.6 TH/MM3 12.8 TH/MM3 Red Blood Count 2.63 MIL/MM3 2.66 MIL/MM3 Hemoglobin 7.8 GM/DL 7.8 GM/DL Hematocrit 23.5 % 23.7 % Mean Corpuscular Volume 89.4 FL 89.1 FL Mean Corpuscular Hemoglobin 29.5 PG 29.4 PG Mean Corpuscular Hemoglobin Concent 33.0 % 33.0 % Red Cell Distribution Width 14.4 % 14.0 % Platelet Count 629 TH/MM3 614 TH/MM3 Mean Platelet Volume 6.8 FL 6.9 FL Neutrophils (%) (Auto) 80.9 % Lymphocytes (%) (Auto) 11.6 % Monocytes (%) (Auto) 5.1 % Eosinophils (%) (Auto) 1.4 % Basophils (%) (Auto) 1.0 % Neutrophils # (Auto) 10.4 TH/MM3 Lymphocytes # (Auto) 1.5 TH/MM3 Monocytes # (Auto) 0.6 TH/MM3 Eosinophils # (Auto) 0.2 TH/MM3 Basophils # (Auto) 0.1 TH/MM3 CBC Comment DIFF FINAL Differential Comment Laboratory Tests Test 10/03/17 07:15 10/04/17 08:16 Blood Urea Nitrogen 13 MG/DL 15 MG/DL Creatinine 0.95 MG/DL 0.95 MG/DL Random Glucose 129 MG/DL 147 MG/DL Calcium Level 8.3 MG/DL 8.7 MG/DL Sodium Level 137 MEQ/L 137 MEQ/L Potassium Level 3.8 MEQ/L 3.9 MEQ/L Chloride Level 104 MEQ/L 103 MEQ/L Carbon Dioxide Level 23.5 MEQ/L 23.0 MEQ/L Anion Gap 10 MEQ/L 11 MEQ/L Estimat Glomerular Filtration Rate 71 ML/MIN 71 ML/MIN Microbiology Date/Time Source Procedure Growth Status 10/02/17 16:07 Blood Peripheral Aerobic Blood Culture - Preliminary NO GROWTH IN 2 DAYS Resulted 10/02/17 16:07 Blood Peripheral Anaerobic Blood Culture - Preliminary NO GROWTH IN 2 DAYS Resulted 10/02/17 16:01 Blood Peripheral Aerobic Blood Culture - Preliminary NO GROWTH IN 2 DAYS Resulted 10/02/17 16:01 Blood Peripheral Anaerobic Blood Culture - Preliminary NO GROWTH IN 2 DAYS Resulted 10/02/17 01:00 Stool Stool Stool Occult Blood ([facility]) - Final HEMOCCULT NEGATIVE Complete 10/02/17 13:50 Urine Catheterized Urine Urine Culture - Final NO GROWTH IN 48 HOURS. Complete Imaging Abdomen/Pelvis CT 09/16/17 0000 Signed Impressions: Service Date/Time: Saturday, September 16, 2017 17:27 - CONCLUSION: 1. 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 No obstructing stone or mass observed. Air is seen throughout the right kidney parenchyma, collecting system, and into the renal vein. A small amount of air is seen involving the upper pole of the left kidney near the hilum likely extension from air within the inferior vena cava. There is mild hydronephrosis and hydroureter on the right. No obstruction on the left. Corey Millan Jr., MD Physical Exam GENERAL: awake, and alert, not in respiratory distress. SKIN: Warm and dry. No generalized rash, no ecchymoses and no evidence of embolic lesions. HEAD: Atraumatic. Normocephalic. No temporal wasting, or tenderness. EYES: [place] conjunctiva. No petechia or hemorrhage. Extraocular movements full and intact. No scleral icterus. EARS, NOSE AND THROAT: Nose without bleeding or purulent nasal discharge. Mucous membranes pink and moist. No oral lesions noted. NECK: Trachea midline. Supple and not tender, no meningeal signs. No nuchal rigidity. CARDIOVASCULAR: Regular rate and rhythm. No murmurs, rubs or gallops heard RESPIRATORY: Clear to auscultation. Breath sounds equal bilaterally. No rales , wheezing or rhonchi ABDOMEN: Soft, nondistended, bowel sounds present and normoactive. Not tender. Drain in place, has purulent fluid NEUROLOGICAL: Non-focal PSYCHIATRIC: Normal affect, calm and cooperative. LINE: No evidence of infection Assessment & Plan Remarks IMPRESSION E coli sepsis due to emphysematous pyelonephritis on R, worse on last CT - has perinephric abscess - S/P cysto and R ureteral stent placement TERRELL with PFO Renal insufficiency Diabetes, poorly controlled Leukocytosis, persistent, mild Lethargy, resolved - ?could still be from sepsis, ?relative hypoglycemia - ?due to Zosyn RECOMMENDATION Continue IV Rocephin Repeat UA and C/S Will needs repeat CT A/P to reeval fluid collection Follow CBC Monitor temps Monitor progress Explained plan to patient Ann Hoffmann MD Oct 04, 2017 12:01
[2017-10-04] MEDS: cefTRIAXone INJ 2,000 MG in SODIUM CHLORIDE 0.9% INJ 100 ML IV SCH (16:54)
[2017-10-04 18:17] LABS: BACTERIA, URINE FEW /hpf; BLOOD, URINE SMALL (NEG); COMMENT (UR) CULTURE INDICATED; CULTURE IF INDICATED CULTURE INDICATED; GLUCOSE,URINE NEG (NEG); KETONE, URINE NEG (NEG); NITRITE,URINE NEG (NEG); RENAL EPITHELIAL CELLS <1 /hpf; SQUAMOUS EPITHELIAL CELL URINE 1 /hpf (0-5); URINE COLOR LIGHT-YELLOW (YELLW/STRAW)
[2017-10-04] MEDS ORDERED: TEMAZEPAM 7.5 MG CAP PO PRN (20:15)
[2017-10-04] MEDS: PRAVASTATIN SOD 40 MG TAB PO SCH (20:43)
[2017-10-04] MEDS: LABETALOL HCL 200 MG TAB PO SCH (20:43)
[2017-10-04] MEDS: INSULIN DETEMIR 100 UNITS/ML VIAL SQ SCH (20:44)
--- NOTE | 2017-10-04 23:50 | RADRPT ---
EXAM DATE/TIME: 10/04/2017 23:20 [facility] COMPARISON: CHEST SINGLE AP, September 30, 2017, 12:49. INDICATIONS : Shortness of breath. MEDICAL HISTORY : Hypercholesterolemia. SURGICAL HISTORY : Coronary artery stent. ENCOUNTER: Subsequent ACUITY: 1 week PAIN SCORE: Non-responsive. LOCATION: Bilateral chest FINDINGS: The cardiac silhouette is enlarged in transverse diameter. There are findings of congestive heart zoey lure with interstitial and alveolar opacity bilaterally. This is new when compared with the prior exa m. Small bilateral pleural effusions are identified. CONCLUSION: 1. Cardiomegaly and findings of congestive heart failure. This is new when compared with the prior ex am. Sean Simmons MD on October 04, 2017 at 23:49 Board Certified Radiologist. This report was verified electronically.
[2017-10-05] VITALS (8 sets, daily range): BP systolic 135–153; BP diastolic 62–83; PULSE 63–72; RESP 18–22; TEMP 97.1–99.3; O2SAT 93–97
[2017-10-05] MEDS ORDERED: FUROSEMIDE 40 MG/4 ML VIAL IV PUSH ONE (00:45)
[2017-10-05] MEDS ORDERED: POTASSIUM CHLORIDE 20 MEQ CONTROLLED RELEASE TAB PO ONE (00:45)
--- NOTE | 2017-10-05 01:08 | HHI.PR ---
Addendum to Inpatient Note Addendum Reason: Additional Documentation Additional Information ADDENDUM S: Residents paged regarding shortness of breath and new cough. Patient endorses difficulty breathing since today. She has no chest pain but notes she is needing oxygen now. She denies fevers, chills, n/v. She is urinating in the bathroom without difficulty. O: VS: 99.3F, P72, R22, BP 142/67, Pulse ox 95% on 4L NC. Resp: breathing shallow breaths but no acute distress noted. Rapid ~25/min. Auscultation reveals crackles, soft, at the bases bilaterally L>R. Equal chest expansion. CV: RRR without murmurs. 2+ pulses in distal extremities bilaterally. BACK: mild diaphoresis. Drain noted on right mid-back with bag having light brown fluid of small amount. EXTREMITIES: 1+ edema to mid roger bilaterally. No calf tenderness and negative Nuha's sign. A/P: CXR ordered and showing increased pulmonary edema compared to exam 09/30. She is noted to have needed Lasix after blood transfusion approx 09/30. Echo has been done this hospital stay showing normal EF. Symptoms at this time are mild and likely responsive to one-time Lasix dose. Potassium and creatinine reviewed. * Will give 40mg IV Lasix dose, one time push * Will give 20meq KCl with Lasix given K level 3.9, low normal * BMP ordered for the morning already; will monitor kidney function and potassium levels * Strict I/Os to monitor diuresis * Titrate supplemental O2 for sats >93% and for symptoms * To discuss with Dr. Thompson in the morning Stefanie Pinzon MD R2 Oct 05, 2017 01:08
[2017-10-05] MEDS: ACETAMINOPHEN 325 MG TAB PO SCH ×4 (06:21→17:34)
[2017-10-05 08:30] LABS: AUTOMATED NEUTROPHIL # 8.7 TH/MM3 (1.8-7.7); BASOPHIL # 0.2 TH/MM3 (0-0.2); BASOPHIL % 1.3 % (0.0-2.0); EOSINOPHIL # 0.2 TH/MM3 (0-0.4); EOSINOPHIL % 1.6 % (0.0-4.0); HEMATOCRIT 24.4 % (35.0-46.0); HEMO FLAGS DIFF FINAL; LYMPHOCYTE # 2.2 TH/MM3 (1.0-4.8); MEAN CELL VOLUME 88.8 FL (80.0-100.0); MEAN CORPUSCULAR HEMOGLOBIN 28.9 PG (27.0-34.0); MEAN CORPUSCULAR HGB CONC 32.5 % (32.0-36.0); NEUT % 71.1 % (16.0-70.0); PLATELET COUNT 617 TH/MM3 (150-450); RED BLOOD COUNT 2.75 MIL/MM3 (4.00-5.30); RED CELL DISTRIBUTION WIDTH 14.5 % (11.6-17.2); WHITE BLOOD COUNT 12.2 TH/MM3 (4.0-11.0)
[2017-10-05] MEDS: GEMFIBROZIL 600 MG TAB PO SCH ×2 (08:31→16:01)
[2017-10-05] MEDS: INSULIN ASPART SUPPLEMENTAL SCALE SQ SCH ×4 (08:33→20:39)
[2017-10-05] MEDS: FERROUS SULFATE 325 MG (65 MG ELEMENTAL IRON) TAB PO SCH ×2 (08:33→20:39)
[2017-10-05] MEDS: SODIUM CHLORIDE 0.9% FLUSH 10 ML FLUSH IV FLUSH SCH ×2 (08:33→21:12)
[2017-10-05] MEDS: ASPIRIN 325 MG TAB PO SCH (08:33)
[2017-10-05] MEDS: LACTOBACILLUS ACIDOPHILUS TAB PO SCH ×2 (08:33→20:39)
[2017-10-05] MEDS: LABETALOL HCL 200 MG TAB PO SCH ×2 (08:34→20:39)
[2017-10-05] MEDS: LISINOPRIL 20 MG TAB PO SCH (08:34)
--- NOTE | 2017-10-05 09:19 | HHI.FPPN ---
Subjective Remarks Mrs. Cohen was afebrile with stable vital signs overnight; O2 via NC increased to 4 L due to patient reporting shortness of breath. Per discussion with on-call team, patient was evaluated for shortness of breath. CXR was obtained which was read by Radiology as having increased suggestion of cardiomegaly/suggestion of CHF so 40mg IV Lasix was ordered. Patient described her shortness of breath as a sensation of feeling acutely short of breath and coughing after awaking at night; the sensation worried her. Patient reports that her breathing improved overnight and is now normal; she does not have shortness of breath at this time. Patient does not report chest pain. Patient's back pain has improved significantly after increasing Oxycodone. No chest pain. Patient urinating well without dysuria. (Austin Thompson MD, R3) Objective Vitals Vital Signs Date Time Temp Pulse Resp B/P (MAP) Pulse Ox O2 Delivery O2 Flow Rate FiO2 10/05/17 08:32 18 10/05/17 04:00 98.3 67 22 138/62 (87) 97 10/05/17 04:00 Nasal Cannula 4.00 10/05/17 00:00 Nasal Cannula 4.00 10/05/17 00:00 99.3 72 22 142/67 (92) 96 10/04/17 22:45 93 Nasal Cannula 4.00 10/04/17 20:15 98.2 74 18 152/65 (94) 95 10/04/17 20:00 Nasal Cannula 4.00 10/04/17 17:18 95 Nasal Cannula 1.00 10/04/17 16:30 98.1 82 20 190/83 (118) 95 10/04/17 16:00 98.2 67 20 143/66 (91) 94 10/04/17 12:00 98.6 73 20 151/68 (95) 94 10/04/17 09:20 94 Nasal Cannula 2.00 I/O 10/04/17 10/04/17 10/04/17 10/05/17 10/05/17 10/05/17 07:00 15:00 23:00 07:00 15:00 23:00 Intake Total 720 ml 480 ml 220 ml Output Total 25 ml Balance 720 ml 455 ml 220 ml Intake Oral 720 ml 480 ml 220 ml Drainage Total 25 ml # Voids 4 2 # Bowel Movements 2 3 0 (Austin Thompson MD, R3) Result Diagram: 10/05/17 0711 10/04/17 0816 Imaging Last Impressions Abdomen/Pelvis CT 10/05/17 0000 Signed Impressions: Service Date/Time: Thursday, October 05, 2017 10:11 - CONCLUSION: Abscess drainage catheter in good position. There is no residual air remaining. DTPA renogram may be of benefit to see if there is indeed viable renal tissue remaining on the right. Gold Dorantes MD FACR Chest X-Ray 10/04/17 0000 Signed Impressions: Service Date/Time: Wednesday, October 04, 2017 23:20 - CONCLUSION: 1. Cardiomegaly and findings of congestive heart failure. This is new when compared with the prior exam. Sean Simmons MD Retroperitoneal Abscess Drainage 09/27/17 0000 Signed Impressions: Service Date/Time: Wednesday, September 27, 2017 15:35 - CONCLUSION: Uncomplicated CT-guided drainage of right perinephric abscess with placement of 8 Polish locking pigtail catheter yielding approximately 150 cc of cloudy, pink, pus- like fluid which was sent for culture and sensitivity. Daniel Portillo MD Consultation 09/26/17 0000 Signed Impressions: Service Date/Time: Tuesday, September 26, 2017 00:00 - CONCLUSION: The right perinephric abscess is not accessible percutaneously due to its anterior position. Daniel Portillo MD Lower Extremity Ultrasound 09/22/17 0000 Signed Impressions: Service Date/Time: August 08:57 - CONCLUSION: The study is negative for deep venous thrombosis bilateral lower extremity. Corey Coley MD Brain MRI 09/21/17 0000 Signed Impressions: Service Date/Time: Thursday, September 21, 2017 16:48 - CONCLUSION: Stable size and appearance to the small area of restricted diffusion in the left cerebellum. No new findings. Corey Coley MD Neck Magnetic Resonance Angiography 09/20/17 1736 Signed Impressions: Service Date/Time: Wednesday, September 20, 2017 08:19 - CONCLUSION: 1. Technically limited examination with nonvisualization of the arch and distal aspect of the vertebral/internal. 2. Midportion of the vertebrals and both carotid bifurcations appear to be patent. 3. If there is a clinical concern for significant cervical vascular disease, CTA of the neck vasculature may be considered for further characterization. Rony Sarabia MD Head Magnetic Resonance Angiography 09/20/17 1736 Signed Impressions: Service Date/Time: Wednesday, September 20, 2017 08:19 - CONCLUSION: 1. MRI suggests severe multi-vascular territory disease with short segment occlusion/high-grade stenosis in the distal left internal carotid, the left M1 segment and occlusion of the right MCA territory near its origin. There also appear to be segmental stenoses in the posterior cerebral arteries as well. Findings are suggestive of a multi-territory embolic event. 2. However, findings are discordant from the most recent MRI of the brain performed one day earlier which only showed minimal diffusion restriction in the left PICA distribution. Unless the patient has had a recent cerebrovascular event in the last 24 hours , I would suggest CTA of the intracranial circulation for further characterization. Rony Sarabia MD Carotid Artery Ultrasound 09/19/17 0000 Signed Impressions: Service Date/Time: Tuesday, September 19, 2017 16:45 - CONCLUSION: Moderate disease in the carotid bifurcations bilaterally with subjective measures suggesting stenosis potentially on the order of 50-60%% Maycol Merritt MD Objective Remarks GENERAL: No distress SKIN: Stage 2 sacral ulcer is now stage 1, very small (not examined today) EYES: No conjunctival injection or drainage. CARDIOVASCULAR: No visible distress Mild bilateral LE edema. RESPIRATORY: Normal rate; no visible distress GASTROINTESTINAL: Abdomen soft, non-distended GENITOURINARY: nephrostomy tube with persistent drainage -decreased overnight; 25 ml reported MUSCULOSKELETAL: Grossly normal motor function and ROM NEUROLOGICAL: Awake and alert. 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 Urology on board. Also with initial delirium and finding of small acute vs. subacute infarction of left cortex of cerebellum. Neurology on board. Perinephric abscess drainage on 09/[address]. Discharge Planning Pending resolution of leukocytosis, results of cultures, stable clinically, perinephric abscess drainage, stable hemoglobin. Planning for discharge to an outpatient rehab facility versus SNF. (Austin Thompson MD, R3) Attending Attestation Patient seen and examined. Case reviewed and discussed with the resident team. Agree with plan of care as discussed with me and documented in the resident note. unsure what led to SOB episode and now fine this am (Desirae Clark MD) Problem List: (1) Emphysematous pyelonephritis ICD Codes: N12 - Tubulo-interstitial nephritis, not specified as acute or chronic Status: Acute Plan: - Continue IV antibiotics per ID -Continue Rocephin 2g IV Q24H (started 09/22) -Repeat CT of abdomen/pelvis (10/05) -abscess drainage catheter in good position; no residual air remaining. DTPA renogram may be of benefit to see if viable renal tissue remaining on R -Continue to monitor nephrostomy output -25 ml overnight 10/04 <- 50 ml overnight 10/03 <- 100 ml overnight 10/02 -Continue pain/fever control - Tylenol 650 mg every 6 hours PRN for flank pain. -Oxycodone for pain White count mildly elevated, stable (WBC 12-13) Platelets elevated, acute phase reaction Imaging: Emphysematous pyelonephritis involving the right kidney, repeat CT on 09/20 showing continued severe emphysematous pyelonephritis on the right with increase in size of the perinephric abscess, quite large on CT Urology consulted -status post ureteral stent on right IR consulted -s/p R nephrostomy tube (09/27) Infectious disease also on board, helping to manage antibiotics. Cultures: E Coli from nephrostomy tube (09/27) E Coli from blood cultures (09/20, 09/17, 09/16) E Coli from urine culture (09/19, 09/16) *Resistant to Ampicillin and Unasyn but otherwise sensitive Subsequent blood and urine cultures: -Urine 10/02 negative -Urine 10/04 negative -Blood 10/02 negative x3 days (2) Shortness of breath ICD Codes: R06.02 - Shortness of breath Status: Acute Plan: Impression: Shortness of breath overnight 10/04; CXR read by Radiology as cardiomegaly and findings of CHF; new compared to prior exam. Recent echocardiogram 09/19 with EF of 60- 65 percent. On exam 10/05, patient without suggestion of fluid overload. Review of CXR imaging by myself and Dr. Clark did not seem to show significant interval change of suggestion of pulmonary vascular congestion. -Will continue to monitor and avoid additional diuresis at this time but will plan to restart if additional shortness of breath occurs -Will hold Restoril as shortness of breath was isolated after initial dose last night (3) Anemia ICD Codes: D64.9 - Anemia, unspecified Status: Acute Plan: Anemia with iron studies in pattern of chronic disease. Hemoccult negative. Possibly some acute blood loss from abscess drainage procedure. Received 1 unit PRBC on 09/29/17. - Trial of ferrous sulfate 350 mg bid - Continue to monitor hemoglobin daily (4) Bright red blood per rectum ICD Codes: K62.5 - Hemorrhage of anus and rectum Status: Resolved Plan: A few drops of bright red blood per rectum noted in toilet bowel, not on stool itself. Negative hemoccult a few days ago. Does not report a history of hemorrhoids.Negative colonoscopy 2 years ago Has stable anemia status post 1 unit PRBC. Repeated Hemoccult on 10/01, again negative. - Monitor hemoglobin/hematocrit - If repeat transfusion, have concern due to prior pulmonary congestion/TACO (5) TACO (transfusion associated circulatory overload) ICD Codes: E87.71 - Transfusion associated circulatory overload Status: Resolved Plan: Evidence of TACO post transfusion with shortness of breath, chest x-ray showing evidence of fluid overload, more crackles in lung bases, elevated BNP, cardiomegaly. Improved significantly with Lasix IV once. Now breathing much improved, crackles resolved. - Supplemental oxygen as needed - Repeat Lasix only if needed - Assess daily I's and O's - Reported event to blood bank, workup pending (6) Acute ischemic stroke ICD Codes: I63.9 - Cerebral infarction, unspecified Status: Acute Plan: Impression: MRI brain ordered 09/19 for altered mental status, some uncoordination with walking: Small acute versus subacute infarction of the left cerebellar cortex about 5 mm. (Dr. Bertrand discussed finding with radiologist, Dr. Coley- estimated from hours to several days old; does not correlate with her symptoms and is likely to not have any neurological effects given its location and size, likely came from an end artery as opposed to a major vessel.Possible small septic emboli as the cause). Head MRA: showing severe multi-vascular disease with occlusions and stenoses in multiple territories, suggesting possible embolic events. Repeat brain MRI is the same as initial MRI, so not correlated with the findings on the MRA. TERRELL showed a PFO, but no vegetations. Carotid Doppler suggesting 50-60% stenosis of carotid arteries bilaterally. EEG with generalized slowing, likely encephalopathy. LE ultrasound to check for DVT (due to PFO) is negative. - Consulted neurology, cardiology (signed off), infectious disease, appreciate recommendations. - Neurology suggests not closing PFO. - Aspirin 325 mg daily -Per discussion between Dr. Bertrand, patient, and her daughter, anticoagulation considered given the PFO and possible embolization event but patient elected to continue ASA at this time - On statin, continue gemfibrozil from home - Cardiac monitoring - Has bilateral SCD's and prophylactic heparin. - Amlodipine, lisinopril for BP control (7) Hypertension Status: Chronic Plan: History of hypertension - Continue home dose of amlodipine and lisinopril -Continue Labetalol to 200mg BID due to persistent HTN - Vasotec PRN (8) Stage 2 skin ulcer of sacral region ICD Codes: L89.152 - Pressure ulcer of sacral region, stage 2 Status: Chronic Plan: Very small stage 2 ulcer in sacral region, downgraded to stage 1 on - Occlusive hydrocolloid dressing daily - Turn every 2 hours - Up in chair as much as possible - Monitor for progression (9) Elevated troponin ICD Codes: R74.8 - Abnormal levels of other serum enzymes Status: Acute Plan: Elevated troponin, but remained relatively flat. Cardiology consulted, suggesting likely demand mediated in the context of kidney disease. - May consider Lexiscan depending on recovery. (10) Diabetes mellitus ICD Codes: E11.9 - Type 2 diabetes mellitus without complications Status: Chronic Plan: Very poor control at home. A1C 12.2. Has not been taking her oral medications at home and not on insulin. Poor understanding of diabetes. Only on glipizide at home. - Low dose sliding scale insulin. - Levemir 10 units at night. - Glucose checks before meals and at bedtime - Diabetic diet - Consulted hospital educator - Consulted case management to assess possible reasons for poor compliance and attendance at office visits - Likely will need insulin at home (11) Dyslipidemia ICD Codes: E78.5 - Dyslipidemia Status: Chronic Plan: Continue home gemfibrozil Started Pravastatin 40 mg daily (12) DVT Prophylaxis Status: Acute Plan: DVT: Stopped heparin due to anemia, blood per rectum, and is much more mobile. Continue with SCD's, encourage ambulation. (13) FEN/PPX Status: Acute Plan: Fluids: PO Electrolytes: Monitor and replace as needed, monitor renal function Nutrition: Renal diet CODE STATUS: Full code (Austin Thompson MD, R3) Problem Qualifiers (1) Anemia: Qualified Codes: D64.9 - Anemia, unspecified Austin Thompson MD, R3 Oct 05, 2017 09:19 Desirae Clark MD Oct 08, 2017 12:36
--- NOTE | 2017-10-05 09:34 | HHI.IDPN ---
Subjective Subjective Remarks Patient is a 67-year-old female, presented to the hospital complaining of three- day history of right-sided abdominal pain, and right flank pain. This was associated with nausea and vomiting as well as frequency and dysuria. She denies any hematuria. In the emergency room she was found to have a white count of 19,000. She has significant pyuria. Creatinine was also elevated. CT of the abdomen and pelvis showed evidence of air in the right kidney, right renal pelvis and also some air extending in the renal vein into the IVC. There is also a small amount of air seen in the hilum of the left kidney. There was some right hydronephrosis and ureter, but no kidney stones seen to cause obstruction. Patient has had prior history of bladder and kidney infection but not this severe. Patient also was found to have very high blood glucose. 2 blood cultures done and are now reported as growing gram-negative rods. Patient underwent surgery, and had cystoscopy and placement of a right ureteral stent. She has been afebrile since admission. Her white count remains elevated at 19,000. Infectious disease consultation has been requested to evaluate the patient with emphysematous pyelonephritis. 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 Vital Signs Date Time Temp Pulse Resp B/P (MAP) Pulse Ox O2 Delivery O2 Flow Rate FiO2 10/05/17 08:32 18 10/05/17 04:00 98.3 67 22 138/62 (87) 97 10/05/17 04:00 Nasal Cannula 4.00 10/05/17 00:00 Nasal Cannula 4.00 10/05/17 00:00 99.3 72 22 142/67 (92) 96 10/04/17 22:45 93 Nasal Cannula 4.00 10/04/17 20:15 98.2 74 18 152/65 (94) 95 10/04/17 20:00 Nasal Cannula 4.00 10/04/17 17:18 95 Nasal Cannula 1.00 10/04/17 16:30 98.1 82 20 190/83 (118) 95 10/04/17 16:00 98.2 67 20 143/66 (91) 94 10/04/17 12:00 98.6 73 20 151/68 (95) 94 . Laboratory Tests Test 10/04/17 08:16 10/05/17 07:11 White Blood Count 12.8 TH/MM3 12.2 TH/MM3 Red Blood Count 2.66 MIL/MM3 2.75 MIL/MM3 Hemoglobin 7.8 GM/DL 7.9 GM/DL Hematocrit 23.7 % 24.4 % Mean Corpuscular Volume 89.1 FL 88.8 FL Mean Corpuscular Hemoglobin 29.4 PG 28.9 PG Mean Corpuscular Hemoglobin Concent 33.0 % 32.5 % Red Cell Distribution Width 14.0 % 14.5 % Platelet Count 614 TH/MM3 617 TH/MM3 Mean Platelet Volume 6.9 FL 6.8 FL Neutrophils (%) (Auto) 80.9 % 71.1 % Lymphocytes (%) (Auto) 11.6 % 18.0 % Monocytes (%) (Auto) 5.1 % 8.0 % Eosinophils (%) (Auto) 1.4 % 1.6 % Basophils (%) (Auto) 1.0 % 1.3 % Neutrophils # (Auto) 10.4 TH/MM3 8.7 TH/MM3 Lymphocytes # (Auto) 1.5 TH/MM3 2.2 TH/MM3 Monocytes # (Auto) 0.6 TH/MM3 1.0 TH/MM3 Eosinophils # (Auto) 0.2 TH/MM3 0.2 TH/MM3 Basophils # (Auto) 0.1 TH/MM3 0.2 TH/MM3 CBC Comment DIFF FINAL DIFF FINAL Differential Comment Laboratory Tests Test 10/04/17 08:16 10/05/17 07:11 Blood Urea Nitrogen 15 MG/DL Creatinine 0.95 MG/DL Random Glucose 147 MG/DL Calcium Level 8.7 MG/DL Sodium Level 137 MEQ/L Potassium Level 3.9 MEQ/L Chloride Level 103 MEQ/L Carbon Dioxide Level 23.0 MEQ/L Anion Gap 11 MEQ/L Estimat Glomerular Filtration Rate 71 ML/MIN Microbiology Date/Time Source Procedure Growth Status 10/02/17 16:07 Blood Peripheral Aerobic Blood Culture - Preliminary NO GROWTH IN 2 DAYS Resulted 10/02/17 16:07 Blood Peripheral Anaerobic Blood Culture - Preliminary NO GROWTH IN 2 DAYS Resulted 10/02/17 16:01 Blood Peripheral Aerobic Blood Culture - Preliminary NO GROWTH IN 2 DAYS Resulted 10/02/17 16:01 Blood Peripheral Anaerobic Blood Culture - Preliminary NO GROWTH IN 2 DAYS Resulted 10/04/17 14:00 Urine Clean Catch Urine Culture Pending Received 10/02/17 13:50 Urine Catheterized Urine Urine Culture - Final NO GROWTH IN 48 HOURS. Complete Imaging Abdomen/Pelvis CT 09/16/17 0000 Signed Impressions: Service Date/Time: Saturday, September 16, 2017 17:27 - CONCLUSION: 1. 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 No obstructing stone or mass observed. Air is seen throughout the right kidney parenchyma, collecting system, and into the renal vein. A small amount of air is seen involving the upper pole of the left kidney near the hilum likely extension from air within the inferior vena cava. There is mild hydronephrosis and hydroureter on the right. No obstruction on the left. Corey Millan Jr., MD Physical Exam GENERAL: awake, and alert, not in respiratory distress. SKIN: Warm and dry. No generalized rash, no ecchymoses and no evidence of embolic lesions. HEAD: Atraumatic. Normocephalic. No temporal wasting, or tenderness. EYES: [place]ho conjunctiva. No petechia or hemorrhage. Extraocular movements full and intact. No scleral icterus. EARS, NOSE AND THROAT: Nose without bleeding or purulent nasal discharge. Mucous membranes pink and moist. No oral lesions noted. NECK: Trachea midline. Supple and not tender, no meningeal signs. No nuchal rigidity. CARDIOVASCULAR: Regular rate and rhythm. No murmurs, rubs or gallops heard RESPIRATORY: Clear to auscultation. Breath sounds equal bilaterally. No rales , wheezing or rhonchi ABDOMEN: Soft, nondistended, bowel sounds present and normoactive. Not tender. Drain in place, has purulent fluid NEUROLOGICAL: Non-focal PSYCHIATRIC: Normal affect, calm and cooperative. LINE: No evidence of infection Assessment & Plan Remarks IMPRESSION E coli sepsis due to emphysematous pyelonephritis on R, worse on last CT - has perinephric abscess - S/P cysto and R ureteral stent placement TERRELL with PFO Renal insufficiency Diabetes, poorly controlled Leukocytosis, persistent, mild Lethargy, resolved - ?could still be from sepsis, ?relative hypoglycemia - ?due to Zosyn CHF RECOMMENDATION Continue IV Rocephin Follow new C/S For CT A/P today Follow CBC Monitor temps Monitor progress Explained plan to patient D/W Ann Maria MD Oct 05, 2017 09:34
[2017-10-05 10:13] LABS: BICARBONATE 25.6 MEQ/L (21.0-32.0); POTASSIUM 4.1 MEQ/L (3.5-5.1)
--- NOTE | 2017-10-05 10:36 | RADRPT ---
EXAM DATE/TIME: 10/05/2017 10:11 [facility] COMPARISON: CT ABDOMEN & PELVIS W/O CONTRAST, September 16, 2017, 17:27. CT ABDOMEN & PELVIS W/O CONTRAST, September 20, 2017, 9:03. CT ABDOMEN & PELVIS W/O CONTRAST, September 24, 2017, 11:24. INDICATIONS : History of right perinephric abscess drain ORAL CONTRAST: No oral contrast ingested. RADIATION DOSE: 14.01 CTDIvol (mGy) MEDICAL HISTORY : Diabetes mellitus type 1. Hypertension. SURGICAL HISTORY : section. ENCOUNTER: Initial ACUITY: 1 day PAIN SCALE: 3/10 LOCATION: Right abdomen TECHNIQUE: Volumetric scanning of the abdomen and pelvis was performed. Using automated exposure control and ad justment of the mA and/or kV according to patient size, radiation dose was kept as low as reasonably achievable to obtain optimal diagnostic quality images. DICOM format image data is available electro nically for review and comparison. FINDINGS: There are increasing small bilateral pleural effusions. The liver, spleen, pancreas and adrenals unremarkable Abscess drainage catheter remains in the perinephric abscess that contains air. There is no residual fluid. Double-J stent is in place. The left kidney is unremarkable. Extensive vascular calcifications are evident Prominent uterus is noted. Bladder is unremarkable. CONCLUSION: Abscess drainage catheter in good position. There is no residual air remaining. DTPA renogram may be of benefit to see if there is indeed viable renal tissue remaining on the right. Gold Dorantes MD FACR on October 05, 2017 at 10:32 Board Certified Radiologist. This report was verified electronically.
[2017-10-05] MEDS: cefTRIAXone INJ 2,000 MG in SODIUM CHLORIDE 0.9% INJ 100 ML IV SCH (16:01)
[2017-10-05] MEDS: INSULIN DETEMIR 100 UNITS/ML VIAL SQ SCH (20:38)
[2017-10-05] MEDS: PRAVASTATIN SOD 40 MG TAB PO SCH (20:39)
[2017-10-06] VITALS (7 sets, daily range): BP systolic 132–162; BP diastolic 65–76; PULSE 65–80; RESP 20; TEMP 97.4–98.4; O2SAT 91–96
[2017-10-06] MEDS: ACETAMINOPHEN 325 MG TAB PO SCH ×4 (01:18→17:56)
[2017-10-06 08:20] LABS: AUTOMATED NEUTROPHIL # 9.4 TH/MM3 (1.8-7.7); BASOPHIL # 0.1 TH/MM3 (0-0.2); EOSINOPHIL # 0.3 TH/MM3 (0-0.4); EOSINOPHIL % 2.5 % (0.0-4.0); HEMATOCRIT 23.5 % (35.0-46.0); HEMO FLAGS DIFF FINAL; LYMPH % 16.3 % (9.0-44.0); LYMPHOCYTE # 2.1 TH/MM3 (1.0-4.8); MEAN CELL VOLUME 89.4 FL (80.0-100.0); MEAN CORPUSCULAR HEMOGLOBIN 29.6 PG (27.0-34.0); MEAN CORPUSCULAR HGB CONC 33.1 % (32.0-36.0); MONO % 5.7 % (0.0-8.0); NEUT % 74.5 % (16.0-70.0); PLATELET COUNT 610 TH/MM3 (150-450); RED BLOOD COUNT 2.63 MIL/MM3 (4.00-5.30); RED CELL DISTRIBUTION WIDTH 14.2 % (11.6-17.2); WHITE BLOOD COUNT 12.7 TH/MM3 (4.0-11.0)
[2017-10-06] MEDS: INSULIN ASPART SUPPLEMENTAL SCALE SQ SCH ×4 (08:43→21:35)
[2017-10-06 08:47] LABS: BICARBONATE 23.5 MEQ/L (21.0-32.0); POTASSIUM 4.3 MEQ/L (3.5-5.1)
[2017-10-06] MEDS: FERROUS SULFATE 325 MG (65 MG ELEMENTAL IRON) TAB PO SCH ×2 (08:47→21:34)
[2017-10-06] MEDS: LISINOPRIL 20 MG TAB PO SCH (08:47)
[2017-10-06] MEDS: LACTOBACILLUS ACIDOPHILUS TAB PO SCH ×2 (08:47→21:34)
[2017-10-06] MEDS: LABETALOL HCL 200 MG TAB PO SCH ×3 (08:48→22:08)
[2017-10-06] MEDS: GEMFIBROZIL 600 MG TAB PO SCH ×2 (08:48→16:00)
[2017-10-06] MEDS: ASPIRIN 325 MG TAB PO SCH (08:48)
[2017-10-06] MEDS: SODIUM CHLORIDE 0.9% FLUSH 10 ML FLUSH IV FLUSH SCH ×2 (08:50→21:34)
--- NOTE | 2017-10-06 12:09 | HHI.FPPN ---
Subjective Remarks Patient seen and examined this morning. Medical team. No acute events overnight with vital signs stable. Patient's only complaint today is continued right flank pain at her nephrostomy tube site. She states that it is difficult to lie flat and sleep at night, but her pain has improved since her drain was placed. She reports that the drain reservoir was changed this morning and had "only a small amount of fluid"that was nonbloody. She has had no new episodes of shortness of breath and has no other complaints. She denies any fevers, chills, shortness of breath, chest pain, NVD, abdominal pain, or calf tenderness. (Danie Blankenship MD R2) Objective Vitals Vital Signs Date Time Temp Pulse Resp B/P (MAP) Pulse Ox O2 Delivery O2 Flow Rate FiO2 10/06/17 08:00 97.5 71 20 162/76 (104) 91 10/06/17 08:00 80 10/06/17 07:00 Nasal Cannula 4.00 10/06/17 04:00 Nasal Cannula 4.00 10/06/17 04:00 97.4 70 20 148/68 (94) 95 10/06/17 01:19 162/72 (102) 10/06/17 00:00 Nasal Cannula 4.00 10/05/17 22:47 95 10/05/17 20:00 97.1 66 20 141/63 (89) 95 10/05/17 20:00 Nasal Cannula 4.00 10/05/17 20:00 63 10/05/17 17:31 18 10/05/17 16:06 97.7 64 18 135/62 (86) 93 10/05/17 15:13 20 10/05/17 12:06 97.8 64 18 144/83 (103) 96 I/O 10/05/17 10/05/17 10/05/17 10/06/17 10/06/17 10/06/17 07:00 15:00 23:00 07:00 15:00 23:00 Intake Total 220 ml 480 ml 360 ml Output Total 20 ml Balance 220 ml 460 ml 360 ml Intake Oral 220 ml 480 ml 360 ml Drainage Total 20 ml # Voids 2 6 2 # Bowel Movements 0 1 1 (Danie Blankenship MD R2) Result Diagram: 10/06/1745 10/06/17 0645 Objective Remarks GENERAL: Elderly female lying in bed in no acute distress. SKIN: Stage 2 sacral ulcer is now stage 1, very small (not examined today) HEENT: Atraumatic, normocephalic with EOMI. MMM. No rhinorrhea. No visible LAD or JVD. CARDIOVASCULAR: Regular rate and rhythm with no MGR. 2+ pulses in all 4 extremities. RESPIRATORY: Clear to auscultation bilaterally with no CRW. GASTROINTESTINAL: Abdomen soft, non-distended with positive bowel sounds. No masses appreciated. GENITOURINARY: Nephrostomy tube in place with sterile bandaging at insertion site, CDI. Site mildly tender to palpation. [place] with approximately 10 mL of milky white discharge, no blood or purulence appreciated. MUSCULOSKELETAL: Grossly normal motor function and ROM. NEUROLOGICAL: Awake and alert. No CN defects; no peripheral motor/sensory defects. 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 Urology on board. Also with initial delirium and finding of small acute vs. subacute infarction of left cortex of cerebellum. Neurology on board. Perinephric abscess drainage on 09/[address]. Discharge Planning Pending removal of nephrostomy tube and final infectious disease recommendations. Planning for discharge to [facility], and patient has been accepted.. (Danie Blankenship MD R2) Attending Attestation Patient seen and examined. Case reviewed and discussed with the resident team. Agree with plan of care as discussed with me and documented in the resident note. fortunately no further episodes of SOB or problems (Desirae Clark MD) Problem List: (1) Emphysematous pyelonephritis ICD Codes: N12 - Tubulo-interstitial nephritis, not specified as acute or chronic Status: Acute Plan: - Continue IV antibiotics per ID -Continue Rocephin 2g IV Q24H (started 09/22) -Repeat CT of abdomen/pelvis (10/05) -abscess drainage catheter in good position; no residual air remaining. DTPA renogram may be of benefit to see if viable renal tissue remaining on R -Continue to monitor nephrostomy output -20 ml overnight 10/05 <- 25 ml overnight 10/04 <- 50 ml overnight 10/03 <- 100 ml overnight 10/02 -Continue pain/fever control - Tylenol 650 mg every 6 hours PRN for flank pain. -Oxycodone for pain White count mildly elevated, stable (WBC 12-13) Platelets elevated, acute phase reaction Urology consulted -Status post ureteral stent on right -Discussed with urology, Dr. Ramirez, who will evaluate patient today for likely nephrostomy tube removal, pending approval from infectious disease. IR consulted -s/p R nephrostomy tube (09/27) Infectious disease also on board, helping to manage antibiotics. Cultures: E Coli from nephrostomy tube (09/27) E Coli from blood cultures (09/20, 09/17, 09/16) E Coli from urine culture (09/19, 09/16) *Resistant to Ampicillin and Unasyn but otherwise sensitive Subsequent blood and urine cultures: -Urine 10/02 negative -Urine 10/04 negative -Blood 10/02 negative x4 days (2) Shortness of breath ICD Codes: R06.02 - Shortness of breath Status: Acute Plan: Impression: Shortness of breath overnight 10/04; CXR read by Radiology as cardiomegaly and findings of CHF; new compared to prior exam. Recent echocardiogram 09/19 with EF of 60- 65 percent. On exam 10/05, patient without suggestion of fluid overload. Review of CXR imaging by myself and Dr. Clark did not seem to show significant interval change of suggestion of pulmonary vascular congestion. -Will continue to monitor and avoid additional diuresis at this time, but will plan to restart if additional shortness of breath occurs -Will hold Restoril as shortness of breath was isolated after initial dose last night -Respiratory walk test ordered (3) Anemia ICD Codes: D64.9 - Anemia, unspecified Status: Acute Plan: Anemia with iron studies in pattern of chronic disease. Hemoccult negative. Possibly some acute blood loss from abscess drainage procedure. Received 1 unit PRBC on 09/29/17. - Trial of ferrous sulfate 350 mg bid - Continue to monitor hemoglobin daily (4) Bright red blood per rectum ICD Codes: K62.5 - Hemorrhage of anus and rectum Status: Resolved Plan: A few drops of bright red blood per rectum noted in toilet bowel, not on stool itself. Negative hemoccult a few days ago. Does not report a history of hemorrhoids.Negative colonoscopy 2 years ago Has stable anemia status post 1 unit PRBC. Repeated Hemoccult on 10/01, again negative. - Monitor hemoglobin/hematocrit - If repeat transfusion, have concern due to prior pulmonary congestion/TACO (5) TACO (transfusion associated circulatory overload) ICD Codes: E87.71 - Transfusion associated circulatory overload Status: Resolved Plan: Evidence of TACO post transfusion with shortness of breath, chest x-ray showing evidence of fluid overload, more crackles in lung bases, elevated BNP, cardiomegaly. Improved significantly with Lasix IV once. Now breathing much improved, crackles resolved. - Supplemental oxygen as needed - Repeat Lasix only if needed - Assess daily I's and O's - Reported event to blood bank, workup pending (6) Acute ischemic stroke ICD Codes: I63.9 - Cerebral infarction, unspecified Status: Acute Plan: Impression: MRI brain ordered 09/19 for altered mental status, some uncoordination with walking: Small acute versus subacute infarction of the left cerebellar cortex about 5 mm. (Dr. Bertrand discussed finding with radiologist, Dr. Coley- estimated from hours to several days old; does not correlate with her symptoms and is likely to not have any neurological effects given its location and size, likely came from an end artery as opposed to a major vessel.Possible small septic emboli as the cause). Head MRA: showing severe multi-vascular disease with occlusions and stenoses in multiple territories, suggesting possible embolic events. Repeat brain MRI is the same as initial MRI, so not correlated with the findings on the MRA. TERRELL showed a PFO, but no vegetations. Carotid Doppler suggesting 50-60% stenosis of carotid arteries bilaterally. EEG with generalized slowing, likely encephalopathy. LE ultrasound to check for DVT (due to PFO) is negative. - Consulted neurology, cardiology (signed off), infectious disease, appreciate recommendations. - Neurology suggests not closing PFO. - Aspirin 325 mg daily -Per discussion between Dr. Bertrand, patient, and her daughter, anticoagulation considered given the PFO and possible embolization event but patient elected to continue ASA at this time - On statin, continue gemfibrozil from home - Cardiac monitoring - Has bilateral SCD's and prophylactic heparin. - Amlodipine, lisinopril for BP control (7) Hypertension Status: Chronic Plan: History of hypertension - Continue home dose of amlodipine and lisinopril -Continue Labetalol to 200mg BID due to persistent HTN - Vasotec PRN (8) Stage 2 skin ulcer of sacral region ICD Codes: L89.152 - Pressure ulcer of sacral region, stage 2 Status: Chronic Plan: Very small stage 2 ulcer in sacral region, downgraded to stage 1 on - Occlusive hydrocolloid dressing daily - Turn every 2 hours - Up in chair as much as possible - Monitor for progression (9) Elevated troponin ICD Codes: R74.8 - Abnormal levels of other serum enzymes Status: Acute Plan: Elevated troponin, but remained relatively flat. Cardiology consulted, suggesting likely demand mediated in the context of kidney disease. - May consider Lexiscan depending on recovery. (10) Diabetes mellitus ICD Codes: E11.9 - Type 2 diabetes mellitus without complications Status: Chronic Plan: Very poor control at home. A1C 12.2. Has not been taking her oral medications at home and not on insulin. Poor understanding of diabetes. Only on glipizide at home. - Low dose sliding scale insulin. - Levemir 10 units at night. - Glucose checks before meals and at bedtime - Diabetic diet - Consulted community nutrition educator - Consulted case management to assess possible reasons for poor compliance and attendance at office visits (11) Dyslipidemia ICD Codes: E78.5 - Dyslipidemia Status: Chronic Plan: Continue home gemfibrozil Started Pravastatin 40 mg daily (12) DVT Prophylaxis Status: Acute Plan: DVT: Stopped heparin due to anemia, blood per rectum, and is much more mobile. Continue with SCD's, encourage ambulation. (13) FEN/PPX Status: Acute Plan: Fluids: PO Electrolytes: Monitor and replace as needed, monitor renal function Nutrition: Renal diet CODE STATUS: Full code (Danie Blankenship MD R2) Problem Qualifiers (1) Anemia: Qualified Codes: D64.9 - Anemia, unspecified Danie Blankenship MD R2 Oct 06, 2017 12:09 Desirae Clark MD Oct 08, 2017 12:37
[2017-10-06] MEDS ORDERED: hydrOXYzine HCL 50 MG TAB PO PRN (12:45)
--- NOTE | 2017-10-06 13:14 | HHI.IDPN ---
Subjective Subjective Remarks Patient is a 67-year-old female, presented to the hospital complaining of three- day history of right-sided abdominal pain, and right flank pain. This was associated with nausea and vomiting as well as frequency and dysuria. She denies any hematuria. In the emergency room she was found to have a white count of 19,000. She has significant pyuria. Creatinine was also elevated. CT of the abdomen and pelvis showed evidence of air in the right kidney, right renal pelvis and also some air extending in the renal vein into the IVC. There is also a small amount of air seen in the hilum of the left kidney. There was some right hydronephrosis and ureter, but no kidney stones seen to cause obstruction. Patient has had prior history of bladder and kidney infection but not this severe. Patient also was found to have very high blood glucose. 2 blood cultures done and are now reported as growing gram-negative rods. Patient underwent surgery, and had cystoscopy and placement of a right ureteral stent. She has been afebrile since admission. Her white count remains elevated at 19,000. Infectious disease consultation has been requested to evaluate the patient with emphysematous pyelonephritis. Notes reviewed Temps ok Breathing continues to improve Low output from R PCN Repeat CT shows resolution of perinephric fluid collection Antibiotics Rocephin Lines PIV Past Medical History Diabetes HTN Hypertriglyceridemia CAD Previous episodes of UTI Past Surgical History Caesarian section Allergies: Coded Allergies: metformin (Unverified Allergy, Severe, Numbness, 07/12/17) clonidine (Unverified Allergy, Unknown, 07/12/17) Objective . Vital Signs Date Time Temp Pulse Resp B/P (MAP) Pulse Ox O2 Delivery O2 Flow Rate FiO2 10/06/17 08:00 97.5 71 20 162/76 (104) 91 10/06/17 08:00 80 10/06/17 07:00 Nasal Cannula 4.00 10/06/17 04:00 Nasal Cannula 4.00 10/06/17 04:00 97.4 70 20 148/68 (94) 95 10/06/17 01:19 162/72 (102) 10/06/17 00:00 Nasal Cannula 4.00 10/05/17 22:47 95 10/05/17 20:00 97.1 66 20 141/63 (89) 95 10/05/17 20:00 Nasal Cannula 4.00 10/05/17 20:00 63 10/05/17 17:31 18 10/05/17 16:06 97.7 64 18 135/62 (86) 93 10/05/17 15:13 20 . Laboratory Tests Test 10/05/17 07:11 10/06/17 06:45 White Blood Count 12.2 TH/MM3 12.7 TH/MM3 Red Blood Count 2.75 MIL/MM3 2.63 MIL/MM3 Hemoglobin 7.9 GM/DL 7.8 GM/DL Hematocrit 24.4 % 23.5 % Mean Corpuscular Volume 88.8 FL 89.4 FL Mean Corpuscular Hemoglobin 28.9 PG 29.6 PG Mean Corpuscular Hemoglobin Concent 32.5 % 33.1 % Red Cell Distribution Width 14.5 % 14.2 % Platelet Count 617 TH/MM3 610 TH/MM3 Mean Platelet Volume 6.8 FL 6.8 FL Neutrophils (%) (Auto) 71.1 % 74.5 % Lymphocytes (%) (Auto) 18.0 % 16.3 % Monocytes (%) (Auto) 8.0 % 5.7 % Eosinophils (%) (Auto) 1.6 % 2.5 % Basophils (%) (Auto) 1.3 % 1.0 % Neutrophils # (Auto) 8.7 TH/MM3 9.4 TH/MM3 Lymphocytes # (Auto) 2.2 TH/MM3 2.1 TH/MM3 Monocytes # (Auto) 1.0 TH/MM3 0.7 TH/MM3 Eosinophils # (Auto) 0.2 TH/MM3 0.3 TH/MM3 Basophils # (Auto) 0.2 TH/MM3 0.1 TH/MM3 CBC Comment DIFF FINAL DIFF FINAL Differential Comment Laboratory Tests Test 10/05/17 07:11 10/06/17 06:45 Blood Urea Nitrogen 15 MG/DL 16 MG/DL Creatinine 0.97 MG/DL 1.06 MG/DL Random Glucose 164 MG/DL 148 MG/DL Calcium Level 8.8 MG/DL 8.7 MG/DL Sodium Level 136 MEQ/L 136 MEQ/L Potassium Level 4.1 MEQ/L 4.3 MEQ/L Chloride Level 102 MEQ/L 102 MEQ/L Carbon Dioxide Level 25.6 MEQ/L 23.5 MEQ/L Anion Gap 8 MEQ/L 11 MEQ/L Estimat Glomerular Filtration Rate 70 ML/MIN 63 ML/MIN B-Type Natriuretic Peptide 646 PG/ML Microbiology Date/Time Source Procedure Growth Status 10/04/17 14:00 Urine Clean Catch Urine Culture - Final NO GROWTH IN 48 HOURS. Complete Imaging Abdomen/Pelvis CT 09/16/17 0000 Signed Impressions: Service Date/Time: Saturday, September 16, 2017 17:27 - CONCLUSION: 1. 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 No obstructing stone or mass observed. Air is seen throughout the right kidney parenchyma, collecting system, and into the renal vein. A small amount of air is seen involving the upper pole of the left kidney near the hilum likely extension from air within the inferior vena cava. There is mild hydronephrosis and hydroureter on the right. No obstruction on the left. Corey Millan Jr., MD Physical Exam GENERAL: awake, and alert, not in respiratory distress. SKIN: Warm and dry. No generalized rash, no ecchymoses and no evidence of embolic lesions. HEAD: Atraumatic. Normocephalic. No temporal wasting, or tenderness. EYES: [place] conjunctiva. No petechia or hemorrhage. Extraocular movements full and intact. No scleral icterus. EARS, NOSE AND THROAT: Nose without bleeding or purulent nasal discharge. Mucous membranes pink and moist. No oral lesions noted. NECK: Trachea midline. Supple and not tender, no meningeal signs. No nuchal rigidity. CARDIOVASCULAR: Regular rate and rhythm. No murmurs, rubs or gallops heard RESPIRATORY: Clear to auscultation. Breath sounds equal bilaterally. No rales , wheezing or rhonchi ABDOMEN: Soft, nondistended, bowel sounds present and normoactive. Not tender. Drain in place, has purulent fluid NEUROLOGICAL: Non-focal PSYCHIATRIC: Normal affect, calm and cooperative. LINE: No evidence of infection Assessment & Plan Remarks IMPRESSION E coli sepsis due to emphysematous pyelonephritis on R, worse on last CT - has perinephric abscess - S/P cysto and R ureteral stent placement TERRELL with PFO Renal insufficiency Diabetes, poorly controlled Leukocytosis, persistent, mild Lethargy, resolved - ?could still be from sepsis, ?relative hypoglycemia - ?due to Zosyn CHF, better RECOMMENDATION Start Levaquin Once drain removed, should be ok to D/C home Give 28 days po Levaquin - ordered in [facility] Will need repeat imaging study CT A/P 4-6 weeks as outpatient Renal scan recommended by radiology to determine level of renal function R kidney - will defer to urologist and primary team Explained plan and rec to daughter and patient D/W Ann Claudio MD Oct 06, 2017 13:14
[2017-10-06] MEDS: LEVOFLOXACIN 750 MG TAB PO SCH (14:46)
[2017-10-06] MEDS: cefTRIAXone INJ 2,000 MG in SODIUM CHLORIDE 0.9% INJ 100 ML IV SCH (16:00)
--- NOTE | 2017-10-06 16:47 | HHI.PR ---
Subjective Patient symptoms today c/o right flank pain at drain site. Denies fevers. breathing improved. less SOB. Objective Vital Signs Vital Signs Date Time Temp Pulse Resp B/P (MAP) Pulse Ox O2 Delivery O2 Flow Rate FiO2 10/06/17 12:00 97.7 65 20 132/70 (90) 96 10/06/17 08:10 96 Nasal Cannula 2.00 10/06/17 08:00 97.5 71 20 162/76 (104) 91 10/06/17 08:00 80 10/06/17 07:00 Nasal Cannula 4.00 10/06/17 04:00 Nasal Cannula 4.00 10/06/17 04:00 97.4 70 20 148/68 (94) 95 10/06/17 01:19 162/72 (102) 10/06/17 00:00 Nasal Cannula 4.00 10/05/17 22:47 95 10/05/17 20:00 97.1 66 20 141/63 (89) 95 10/05/17 20:00 Nasal Cannula 4.00 10/05/17 20:00 63 10/05/17 17:31 18 Intake & Output 10/06/17 10/06/17 07:00 19:00 Intake Total 360 ml Balance 360 ml Intake Oral 360 ml # Voids 2 # Bowel Movements 1 Result Diagram: 10/06/1764410/06/17644 Objective Remarks NAD. abd soft scant purulent drainage from drain Medications and IVs Current Medications Medications (Trade) Dose Ordered Sig/Alisha Route Start Time Stop Time Status Last Admin (NS Flush) 2 ml UNSCH PRN IV FLUSH 09/16/17 19:30 (NS Flush) 2 ml BID IV FLUSH 09/16/17 21:00 10/06/17 08:50 (Norvasc) 10 mg DAILY PO 09/17/17 09:00 Future hold 10/06/17 08:48 (Lopid) 300 mg BIDAC PO 09/17/17 07:00 10/06/17 08:48 (Prinivil) 40 mg DAILY PO 09/17/17 09:00 Future hold 10/06/17 08:47 (Narcan Inj) 0.4 mg UNSCH X1 PRN IV PUSH 09/16/17 20:15 10/16/17 20:14 (Zofran Inj) 4 mg Q8HR PRN IV PUSH 09/16/17 20:15 09/26/17 16:45 (NovoLOG INJ) 8 units TIDAC SQ 09/17/17 08:00 Future Hold 09/17/17 17:34 (D50w (Vial) Inj) 50 ml UNSCH PRN IV PUSH 09/16/17 20:15 (Glucagon Inj) 1 mg UNSCH PRN OTHER 09/16/17 20:15 (NovoLOG SUPPLEMENTAL SCALE) 1 ACHS SLIDING SCALE SQ 09/19/17 12:00 10/06/17 12:47 (Pravachol) 40 mg HS PO 09/19/17 21:00 10/05/17 20:39 (Aspirin) 325 mg DAILY PO 09/22/17 09:15 10/06/17 08:48 Ceftriaxone Sodium 2000 mg/ Sodium Chloride 100 ml @ 200 mls/hr Q24H IV 09/22/17 16:00 10/05/17 16:01 (Apresoline) 25 mg Q8HR PRN PO 09/23/17 04:45 Future Hold (Levemir Inj) 10 units HS SQ 09/23/17 21:00 10/05/17 20:38 (Lactinex) 1 tab Q12HR PO 09/23/17 10:15 10/06/17 08:47 (Tylenol) 650 mg Q6HR PO 09/23/17 12:00 10/06/17 12:46 (Duoneb Neb) 1 ampule Q4HR NEB PRN NEB 09/24/17 09:30 10/04/17 22:42 (Vasotec Inj) 1.25 mg Q6H PRN IV PUSH 09/25/17 05:45 09/25/17 06:30 (Roxicodone) 5 mg Q6H PRN PO 09/29/17 14:00 10/04/17 16:50 (Ferrous Sulfate) 325 mg BID PO 09/29/17 13:45 10/06/17 08:47 (Trandate) 200 mg Q12HR PO 10/04/17 21:00 10/06/17 08:48 (Roxicodone) 10 mg Q6H PRN PO 10/04/17 20:15 10/06/17 12:46 (Levaquin) 750 mg DAILY PO 10/06/17 12:45 11/03/17 12:44 10/06/17 14:46 (Atarax) 50 mg HS PRN PO 10/06/17 12:45 Assessment and Plan Problem List: (1) Emphysematous pyelonephritis ICD Code: N12 - Tubulo-interstitial nephritis, not specified as acute or chronic Status: Acute Assessment and Plan s/p cystoscopy, right ureteral stent insertion -Drain removed bedside without issues -Agree with ID for antibiotics x 4 weeks -Will repeat CT in 4 weeks. -Would hold off on Renal Function test at this time. -Ok to d/c home. F/U as outpatient with Urology in 3-[address] Scan prior. -Please call with an questions. Shahram Ramirez MD Oct 06, 2017 16:47
[2017-10-06] MEDS: INSULIN DETEMIR 100 UNITS/ML VIAL SQ SCH (21:00)
[2017-10-06] MEDS: PRAVASTATIN SOD 40 MG TAB PO SCH (21:34)
[2017-10-07] VITALS (9 sets, daily range): BP systolic 135–153; BP diastolic 60–77; PULSE 67–93; RESP 16–20; TEMP 97.4–99.4; O2SAT 92–97
[2017-10-07] MEDS: ACETAMINOPHEN 325 MG TAB PO SCH ×5 (00:52→23:01)
[2017-10-07] MEDS: GEMFIBROZIL 600 MG TAB PO SCH ×2 (06:43→15:56)
[2017-10-07] MEDS: INSULIN ASPART SUPPLEMENTAL SCALE SQ SCH ×4 (08:00→21:37)
[2017-10-07 08:38] LABS: HEMATOCRIT 26.8 % (35.0-46.0); MEAN CELL VOLUME 89.9 FL (80.0-100.0); MEAN CORPUSCULAR HEMOGLOBIN 29.1 PG (27.0-34.0); MEAN CORPUSCULAR HGB CONC 32.4 % (32.0-36.0); PLATELET COUNT 638 TH/MM3 (150-450); RED BLOOD COUNT 2.98 MIL/MM3 (4.00-5.30); RED CELL DISTRIBUTION WIDTH 14.3 % (11.6-17.2); REVIEW FLAG FINAL; WHITE BLOOD COUNT 11.7 TH/MM3 (4.0-11.0)
[2017-10-07] MEDS: FERROUS SULFATE 325 MG (65 MG ELEMENTAL IRON) TAB PO SCH ×2 (09:00→21:35)
[2017-10-07] MEDS: LISINOPRIL 20 MG TAB PO SCH (09:00)
--- NOTE | 2017-10-07 09:25 | HHI.FPPN ---
Subjective Remarks Woke up this morning with 10/10 pain in right flank. Reports that when she gets this pain she has the "shakes." She was also diffusely sweating during this time. She got her pain medications and this resolved. She also felt slightly SOB last night and the resp team placed her back on supplemental O2 (at 4 L). She reports that she is coughing up some clear phlegm. Urinating without difficulty, but remains + fluid balance over past 3 days. Reports walking the halls with PT the past several days and doing fine. When asked if she felt ready to go to a SNF, she said "I think so" and "that would be good." Waiting on morning labs and repeat CXR. (Abran Mojica MD, R3) Objective Vitals Vital Signs Date Time Temp Pulse Resp B/P (MAP) Pulse Ox O2 Delivery O2 Flow Rate FiO2 10/07/17 07:00 99.4 80 16 153/69 (97) 10/07/17 07:00 95 10/07/17 04:00 98.7 70 20 142/60 (87) 92 10/07/17 00:00 98.3 71 20 145/73 (97) 92 10/06/17 21:34 Nasal Cannula 5.00 10/06/17 20:00 Room Air 10/06/17 20:00 72 10/06/17 20:00 98.4 72 20 149/66 (93) 93 10/06/17 16:00 97.5 70 20 137/65 (89) 92 10/06/17 12:00 97.7 65 20 132/70 (90) 96 I/O 10/06/17 10/06/17 10/06/17 10/07/17 10/07/17 10/07/17 07:00 15:00 23:00 07:00 15:00 23:00 Intake Total 360 ml 960 ml 220 ml Output Total 300 ml Balance 360 ml 960 ml -80 ml Intake Oral 360 ml 960 ml 220 ml Output Urine Total 300 ml # Voids 2 3 # Bowel Movements 1 0 0 (Abran Mojica MD, R3) Result Diagram: 10/07/17 0630 10/06/17 0645 Imaging Last 72 hours Impressions Abdomen/Pelvis CT 10/05/17 0000 Signed Impressions: Service Date/Time: WedOctober 05, 2017 10:11 - CONCLUSION: Abscess drainage catheter in good position. There is no residual air remaining. DTPA renogram may be of benefit to see if there is indeed viable renal tissue remaining on the right. Gold Dorantes MD FACR Objective Remarks GENERAL: Elderly female lying in bed in no acute distress. SKIN: Stage 2 sacral ulcer is now stage 1, very small (not examined today) HEENT: Atraumatic, normocephalic with EOMI. MMM. No rhinorrhea. No visible LAD or JVD. CARDIOVASCULAR: Regular rate and rhythm with no MGR. 2+ pulses in all 4 extremities. RESPIRATORY: Clear to auscultation bilaterally with no CRW. GASTROINTESTINAL: Abdomen soft, non-distended with positive bowel sounds. No masses appreciated. GENITOURINARY: Nephrostomy tube removed, sterile bandaging at insertion site. Site mildly tender to palpation. MUSCULOSKELETAL: Grossly normal motor function and ROM. NEUROLOGICAL: Awake and alert. No CN defects; no peripheral motor/sensory defects. 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 Urology on board. Also with initial delirium and finding of small acute vs. subacute infarction of left cortex of cerebellum. Neurology on board. Perinephric abscess drainage on 09/[address]. Discharge Planning Pending removal of nephrostomy tube and final infectious disease recommendations. Planning for discharge to [facility], and patient has been accepted.. (Abran Mojica MD, R3) Attending Attestation Patient seen and examined. Case reviewed and discussed with the resident team. Agree with plan of care as discussed with me and documented in the resident note. 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 DTPA renogram may be of benefit to see if viable renal tissue remaining on R -Nephrostomy tube pulled by urology 10/06. -Continue pain/fever control - Tylenol 650 mg every 6 hours PRN for flank pain. -Oxycodone for pain White count mildly elevated, stable (WBC 12-13) Platelets elevated, acute phase reaction Urology consulted -s/p R nephrostomy tube (09/27) removed (10/06) Infectious disease also on board, helping to manage antibiotics. Cultures: E Coli from nephrostomy tube (09/27) E Coli from blood cultures (09/20, 09/17, 09/16) E Coli from urine culture (09/19, 09/16) *Resistant to Ampicillin and Unasyn but otherwise sensitive Subsequent blood and urine cultures: -Urine 10/02 negative -Urine 10/04 negative -Blood 10/02 negative x4 days 10/07: New subjective fevers and chills, Temp mildly elevated to 99.4 F. Repeat CXR given some subjective SOB and new O2 requirement. CBC stable. Will monitor prior to possible discharge today. (2) Shortness of breath ICD Codes: R06.02 - Shortness of breath Status: Acute Plan: Impression: Shortness of breath overnight 10/04; CXR read by Radiology as cardiomegaly and findings of CHF; new compared to prior exam. Recent echocardiogram 09/19 with EF of 60- 65 percent. On exam 10/05, patient without suggestion of fluid overload. Review of CXR imaging by myself and Dr. Clark did not seem to show significant interval change of suggestion of pulmonary vascular congestion. -Will continue to monitor and avoid additional diuresis at this time, but will plan to restart if additional shortness of breath occurs -Will hold Restoril as shortness of breath was isolated after initial dose last night -Respiratory walk test ordered - satting at 91% without oxygen on RM on exertion. (3) Anemia ICD Codes: D64.9 - Anemia, unspecified Status: Acute Plan: Anemia with iron studies in pattern of chronic disease. Hemoccult negative. Possibly some acute blood loss from abscess drainage procedure. Received 1 unit PRBC on 09/29/17. - Trial of ferrous sulfate 350 mg bid - Continue to monitor hemoglobin daily - stable (4) Bright red blood per rectum ICD Codes: K62.5 - Hemorrhage of anus and rectum Status: Resolved Plan: A few drops of bright red blood per rectum noted in toilet bowel, not on stool itself. Negative hemoccult a few days ago. Does not report a history of hemorrhoids.Negative colonoscopy 2 years ago Has stable anemia status post 1 unit PRBC. Repeated Hemoccult on 10/01, again negative. - Monitor hemoglobin/hematocrit - If repeat transfusion, have concern due to prior pulmonary congestion/TACO (5) TACO (transfusion associated circulatory overload) ICD Codes: E87.71 - Transfusion associated circulatory overload Status: Resolved Plan: Evidence of TACO post transfusion with shortness of breath, chest x-ray showing evidence of fluid overload, more crackles in lung bases, elevated BNP, cardiomegaly. Improved significantly with Lasix IV once. Now breathing much improved, crackles resolved. - Supplemental oxygen as needed - Repeat Lasix only if needed - Assess daily I's and O's - Reported event to blood bank, workup pending (6) Acute ischemic stroke ICD Codes: I63.9 - Cerebral infarction, unspecified Status: Acute Plan: Impression: MRI brain ordered 09/19 for altered mental status, some uncoordination with walking: Small acute versus subacute infarction of the left cerebellar cortex about 5 mm. (Dr. Bertrand discussed finding with radiologist, Dr. Coley- estimated from hours to several days old; does not correlate with her symptoms and is likely to not have any neurological effects given its location and size, likely came from an end artery as opposed to a major vessel.Possible small septic emboli as the cause). Head MRA: showing severe multi-vascular disease with occlusions and stenoses in multiple territories, suggesting possible embolic events. Repeat brain MRI is the same as initial MRI, so not correlated with the findings on the MRA. TERRELL showed a PFO, but no vegetations. Carotid Doppler suggesting 50-60% stenosis of carotid arteries bilaterally. EEG with generalized slowing, likely encephalopathy. LE ultrasound to check for DVT (due to PFO) is negative. - Consulted neurology, cardiology (signed off), infectious disease, appreciate recommendations. - Neurology suggests not closing PFO. - Aspirin 325 mg daily -Per discussion between Dr. Bertrand, patient, and her daughter, anticoagulation considered given the PFO and possible embolization event but patient elected to continue ASA at this time - On statin, continue gemfibrozil from home - Cardiac monitoring - Has bilateral SCD's and prophylactic heparin. - Amlodipine, lisinopril for BP control (7) Hypertension Status: Chronic Plan: History of hypertension - Continue home dose of amlodipine and lisinopril -Continue Labetalol to 200mg BID due to persistent HTN - Vasotec PRN (8) Stage 2 skin ulcer of sacral region ICD Codes: L89.152 - Pressure ulcer of sacral region, stage 2 Status: Chronic Plan: Very small stage 2 ulcer in sacral region, downgraded to stage 1 on - Occlusive hydrocolloid dressing daily - Turn every 2 hours - Up in chair as much as possible - Monitor for progression (9) Elevated troponin ICD Codes: R74.8 - Abnormal levels of other serum enzymes Status: Acute Plan: Elevated troponin, but remained relatively flat. Cardiology consulted, suggesting likely demand mediated in the context of kidney disease. - May consider Lexiscan depending on recovery. (10) Diabetes mellitus ICD Codes: E11.9 - Type 2 diabetes mellitus without complications Status: Chronic Plan: Very poor control at home. A1C 12.2. Has not been taking her oral medications at home and not on insulin. Poor understanding of diabetes. Only on glipizide at home. - Low dose sliding scale insulin. - Levemir 10 units at night. - Glucose checks before meals and at bedtime - Diabetic diet - Consulted breastfeeding educator - Consulted case management to assess possible reasons for poor compliance and attendance at office visits (11) Dyslipidemia ICD Codes: E78.5 - Dyslipidemia Status: Chronic Plan: Continue home gemfibrozil Started Pravastatin 40 mg daily (12) DVT Prophylaxis Status: Acute Plan: DVT: Stopped heparin due to anemia, blood per rectum, and is much more mobile. Continue with SCD's, encourage ambulation. (13) FEN/PPX Status: Acute Plan: Fluids: PO Electrolytes: Monitor and replace as needed, monitor renal function Nutrition: Renal diet CODE STATUS: Full code (Abran Mojica MD, R3) Problem Qualifiers (1) Anemia: Qualified Codes: D64.9 - Anemia, unspecified Abran Mojica MD, R3 Oct 07, 2017 09:25 Desirae Clark MD Oct 08, 2017 12:39
[2017-10-07] MEDS: SODIUM CHLORIDE 0.9% FLUSH 10 ML FLUSH IV FLUSH SCH ×2 (10:06→21:35)
[2017-10-07] MEDS: LEVOFLOXACIN 750 MG TAB PO SCH (10:06)
[2017-10-07] MEDS: LACTOBACILLUS ACIDOPHILUS TAB PO SCH ×2 (10:07→21:35)
[2017-10-07] MEDS: ASPIRIN 325 MG TAB PO SCH (10:07)
[2017-10-07] MEDS: LABETALOL HCL 200 MG TAB PO SCH ×2 (10:07→21:36)
[2017-10-07 10:12] LABS: BICARBONATE 20.5 MEQ/L (21.0-32.0); POTASSIUM 4.8 MEQ/L (3.5-5.1)
--- NOTE | 2017-10-07 11:15 | RADRPT ---
EXAM DATE/TIME: 10/07/2017 10:43 [facility] COMPARISON: CHEST SINGLE AP, October 04, 2017, 23:20. INDICATIONS : Cough. MEDICAL HISTORY : Hypertension. Diabetes mellitus type II. SURGICAL HISTORY : section. Coronary artery stent. ENCOUNTER: Subsequent ACUITY: 2 weeks PAIN SCORE: 0/10 LOCATION: Bilateral chest FINDINGS: Portable AP view of the chest demonstrates a normal-sized cardiac silhouette. Left basilar pleural-pa renchymal opacity remains present. The small right basilar opacity has decreased. No pneumothorax is visualized. Bones demonstrate no acute finding. CONCLUSION: Decreased right basilar opacity with likely some residual atelectasis. Left basilar opacity is stable and likely represents pleural effusion with atelectasis and/or airspace consolidation. Maycol Clark MD on October 07, 2017 at 11:13 Board Certified Radiologist. This report was verified electronically.
[2017-10-07] MEDS ORDERED: FUROSEMIDE 20 MG/2 ML VIAL IV PUSH ONE (11:30)
[2017-10-07] MEDS ORDERED: LEVA750T9 PO (11:34)
--- NOTE | 2017-10-07 11:37 | HHI.IDPN ---
Subjective Subjective Remarks Patient is a 67-year-old female, presented to the hospital complaining of three- day history of right-sided abdominal pain, and right flank pain. This was associated with nausea and vomiting as well as frequency and dysuria. She denies any hematuria. In the emergency room she was found to have a white count of 19,000. She has significant pyuria. Creatinine was also elevated. CT of the abdomen and pelvis showed evidence of air in the right kidney, right renal pelvis and also some air extending in the renal vein into the IVC. There is also a small amount of air seen in the hilum of the left kidney. There was some right hydronephrosis and ureter, but no kidney stones seen to cause obstruction. Patient has had prior history of bladder and kidney infection but not this severe. Patient also was found to have very high blood glucose. 2 blood cultures done and are now reported as growing gram-negative rods. Patient underwent surgery, and had cystoscopy and placement of a right ureteral stent. She has been afebrile since admission. Her white count remains elevated at 19,000. Infectious disease consultation has been requested to evaluate the patient with emphysematous pyelonephritis. Notes reviewed Temps occ 99+ Breathing same, still requiring O2 CXR a little better Drain removed Repeat CT shows resolution of perinephric fluid collection Antibiotics Rocephin Levaquin Lines PIV Past Medical History Diabetes HTN Hypertriglyceridemia CAD Previous episodes of UTI Past Surgical History Caesarian section Allergies: Coded Allergies: metformin (Unverified Allergy, Severe, Numbness, 07/12/17) clonidine (Unverified Allergy, Unknown, 07/12/17) Objective . Vital Signs Date Time Temp Pulse Resp B/P (MAP) Pulse Ox O2 Delivery O2 Flow Rate FiO2 10/07/17 10:55 95 Nasal Cannula 5.00 10/07/17 07:00 99.4 80 16 153/69 (97) 10/07/17 07:00 95 10/07/17 04:00 98.7 70 20 142/60 (87) 92 10/07/17 00:00 98.3 71 20 145/73 (97) 92 10/06/17 21:34 Nasal Cannula 5.00 10/06/17 20:00 Room Air 10/06/17 20:00 72 10/06/17 20:00 98.4 72 20 149/66 (93) 93 10/06/17 16:00 97.5 70 20 137/65 (89) 92 10/06/17 12:00 97.7 65 20 132/70 (90) 96 . Laboratory Tests Test 10/06/17 06:45 10/07/17 06:30 White Blood Count 12.7 TH/MM3 11.7 TH/MM3 Red Blood Count 2.63 MIL/MM3 2.98 MIL/MM3 Hemoglobin 7.8 GM/DL 8.7 GM/DL Hematocrit 23.5 % 26.8 % Mean Corpuscular Volume 89.4 FL 89.9 FL Mean Corpuscular Hemoglobin 29.6 PG 29.1 PG Mean Corpuscular Hemoglobin Concent 33.1 % 32.4 % Red Cell Distribution Width 14.2 % 14.3 % Platelet Count 610 TH/MM3 638 TH/MM3 Mean Platelet Volume 6.8 FL 6.9 FL Neutrophils (%) (Auto) 74.5 % Lymphocytes (%) (Auto) 16.3 % Monocytes (%) (Auto) 5.7 % Eosinophils (%) (Auto) 2.5 % Basophils (%) (Auto) 1.0 % Neutrophils # (Auto) 9.4 TH/MM3 Lymphocytes # (Auto) 2.1 TH/MM3 Monocytes # (Auto) 0.7 TH/MM3 Eosinophils # (Auto) 0.3 TH/MM3 Basophils # (Auto) 0.1 TH/MM3 CBC Comment DIFF FINAL Differential Comment Laboratory Tests Test 10/06/17 06:45 10/07/17 06:30 Blood Urea Nitrogen 16 MG/DL 17 MG/DL Creatinine 1.06 MG/DL 1.20 MG/DL Random Glucose 148 MG/DL 86 MG/DL Calcium Level 8.7 MG/DL 9.2 MG/DL Sodium Level 136 MEQ/L 137 MEQ/L Potassium Level 4.3 MEQ/L 4.8 MEQ/L Chloride Level 102 MEQ/L 103 MEQ/L Carbon Dioxide Level 23.5 MEQ/L 20.5 MEQ/L Anion Gap 11 MEQ/L 14 MEQ/L Estimat Glomerular Filtration Rate 63 ML/MIN 55 ML/MIN Microbiology Date/Time Source Procedure Growth Status 10/04/17 14:00 Urine Clean Catch Urine Culture - Final NO GROWTH IN 48 HOURS. Complete Imaging Abdomen/Pelvis CT 09/16/17 0000 Signed Impressions: Service Date/Time: Saturday, September 16, 2017 17:27 - CONCLUSION: 1. 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 No obstructing stone or mass observed. Air is seen throughout the right kidney parenchyma, collecting system, and into the renal vein. A small amount of air is seen involving the upper pole of the left kidney near the hilum likely extension from air within the inferior vena cava. There is mild hydronephrosis and hydroureter on the right. No obstruction on the left. Corey Millan Jr., MD Physical Exam GENERAL: awake, and alert, not in respiratory distress. SKIN: Warm and dry. No generalized rash, no ecchymoses and no evidence of embolic lesions. HEAD: Atraumatic. Normocephalic. No temporal wasting, or tenderness. EYES: [place] conjunctiva. No petechia or hemorrhage. Extraocular movements full and intact. No scleral icterus. EARS, NOSE AND THROAT: Nose without bleeding or purulent nasal discharge. Mucous membranes pink and moist. No oral lesions noted. NECK: Trachea midline. Supple and not tender, no meningeal signs. No nuchal rigidity. CARDIOVASCULAR: Regular rate and rhythm. No murmurs, rubs or gallops heard RESPIRATORY: Clear to auscultation. Breath sounds equal bilaterally. No rales , wheezing or rhonchi ABDOMEN: Soft, nondistended, bowel sounds present and normoactive. Not tender. NEUROLOGICAL: Non-focal PSYCHIATRIC: Normal affect, calm and cooperative. LINE: No evidence of infection Assessment & Plan Remarks IMPRESSION E coli sepsis due to emphysematous pyelonephritis on R, worse on last CT - has perinephric abscess - S/P cysto and R ureteral stent placement TERRELL with PFO Renal insufficiency Diabetes, poorly controlled Leukocytosis, persistent, mild Lethargy, resolved - ?could still be from sepsis, ?relative hypoglycemia - ?due to Zosyn CHF, better RECOMMENDATION Continue Levaquin Give 28 days po Levaquin - ordered in [place] - Rx printed Stop Rocephin Will need repeat imaging study CT A/P 4-6 weeks as outpatient Renal scan recommended by radiology to determine level of renal function R kidney - will defer to urologist and primary team Explained plan and rec to daughter and patient Stable for D/C from ID standpoint Ann Hoffmann MD Oct 07, 2017 11:37
[2017-10-07] MEDS: PRAVASTATIN SOD 40 MG TAB PO SCH (21:35)
[2017-10-07] MEDS: INSULIN DETEMIR 100 UNITS/ML VIAL SQ SCH (21:36)
[2017-10-08] VITALS: BP 137/65; PULSE 71; RESP 16; TEMP 98.1; O2SAT 93
[2017-10-08 04:00] VITALS: BP 157/71; PULSE 79; RESP 16; TEMP 98.2; O2SAT 95
[2017-10-08 06:35] LABS: AUTOMATED NEUTROPHIL # 7.1 TH/MM3 (1.8-7.7); BASOPHIL # 0.1 TH/MM3 (0-0.2); BASOPHIL % 1.1 % (0.0-2.0); EOSINOPHIL # 0.4 TH/MM3 (0-0.4); EOSINOPHIL % 4.1 % (0.0-4.0); HEMATOCRIT 24.9 % (35.0-46.0); HEMO FLAGS DIFF FINAL; LYMPHOCYTE # 2.1 TH/MM3 (1.0-4.8); MEAN CORPUSCULAR HEMOGLOBIN 29.5 PG (27.0-34.0); MEAN CORPUSCULAR HGB CONC 33.1 % (32.0-36.0); MONO % 8.9 % (0.0-8.0); NEUT % 65.9 % (16.0-70.0); PLATELET COUNT 586 TH/MM3 (150-450); RED CELL DISTRIBUTION WIDTH 14.1 % (11.6-17.2); WHITE BLOOD COUNT 10.7 TH/MM3 (4.0-11.0)
[2017-10-08] MEDS: ACETAMINOPHEN 325 MG TAB PO SCH ×2 (06:42→12:44)
[2017-10-08] MEDS: GEMFIBROZIL 600 MG TAB PO SCH (06:42)
[2017-10-08 06:44] LABS: BICARBONATE 27.6 MEQ/L (21.0-32.0); POTASSIUM 4.2 MEQ/L (3.5-5.1)
[2017-10-08] MEDS: SODIUM CHLORIDE 0.9% FLUSH 10 ML FLUSH IV FLUSH SCH (07:24)
[2017-10-08 08:00] VITALS: BP 130/74; PULSE 71; RESP 20; TEMP 97.5; O2SAT 96
[2017-10-08] MEDS: INSULIN ASPART SUPPLEMENTAL SCALE SQ SCH ×2 (08:00→12:00)
[2017-10-08 08:26] VITALS: O2SAT 96
[2017-10-08] MEDS: LABETALOL HCL 200 MG TAB PO SCH (09:11)
[2017-10-08] MEDS: LACTOBACILLUS ACIDOPHILUS TAB PO SCH (09:11)
[2017-10-08] MEDS: LEVOFLOXACIN 750 MG TAB PO SCH (09:11)
[2017-10-08] MEDS: FERROUS SULFATE 325 MG (65 MG ELEMENTAL IRON) TAB PO SCH (09:11)
[2017-10-08] MEDS: LISINOPRIL 20 MG TAB PO SCH (09:11)
[2017-10-08] MEDS: ASPIRIN 325 MG TAB PO SCH (09:12)
--- NOTE | 2017-10-08 09:57 | HHI.FPPN ---
Subjective Remarks Patient seen and examined this morning. Afebrile vital signs stable. She reports that she is ready to leave the hospital and is excited to go to rehabilitation. She has no complaints at this time. (Nikolas Pozo MD, R3) Objective Vitals Vital Signs Date Time Temp Pulse Resp B/P (MAP) Pulse Ox O2 Delivery O2 Flow Rate FiO2 10/08/17 08:00 97.5 71 20 130/74 (92) 96 10/08/17 04:00 98.2 79 16 157/71 (99) 95 10/08/17 00:00 98.1 71 16 137/65 (89) 93 10/07/17 22:00 67 10/07/17 20:00 98.2 70 16 135/63 (87) 97 10/07/17 20:00 Nasal Cannula 2.00 10/07/17 20:00 67 10/07/17 16:00 97.4 71 18 137/77 (97) 96 10/07/17 12:00 98.2 71 18 149/67 (94) 96 10/07/17 10:55 95 Nasal Cannula 5.00 10/07/17 10:00 2.00 I/O 10/07/17 10/07/17 10/07/17 10/08/17 10/08/17 10/08/17 07:00 15:00 23:00 07:00 15:00 23:00 Intake Total 220 ml 720 ml Output Total 300 ml Balance -80 ml 720 ml Intake Oral 220 ml 720 ml Output Urine Total 300 ml # Voids 3 1 # Bowel Movements 0 0 (Nikolas Pozo MD, R3) Result Diagram: 10/08/17 0518 10/08/17 0518 Imaging Last Impressions Chest X-Ray 10/07/17 0000 Signed Impressions: Service Date/Time: Saturday, October 07, 2017 10:43 - CONCLUSION: Decreased right basilar opacity with likely some residual atelectasis. Left basilar opacity is stable and likely represents pleural effusion with atelectasis and/ or airspace consolidation. Maycol Clark MD Abdomen/Pelvis CT 10/05/17 0000 Signed Impressions: Service Date/Time: Thursday, October 05, 2017 10:11 - CONCLUSION: Abscess drainage catheter in good position. There is no residual air remaining. DTPA renogram may be of benefit to see if there is indeed viable renal tissue remaining on the right. Gold Dorantes MD FACR Retroperitoneal Abscess Drainage 09/27/17 Signed Impressions: Service Date/Time: Wednesday, September 27, 2017 15:35 - CONCLUSION: Uncomplicated CT-guided drainage of right perinephric abscess with placement of 8 Niuean locking pigtail catheter yielding approximately 150 cc of cloudy, pink, pus- like fluid which was sent for culture and sensitivity. Daniel Portillo MD Consultation 09/26/17 Signed Impressions: Service Date/Time: Tuesday, September 26, 2017 00:00 - CONCLUSION: The right perinephric abscess is not accessible percutaneously due to its anterior position. Daniel Portillo MD Lower Extremity Ultrasound 09/22/17 Signed Impressions: Service Date/Time: August 08:57 - CONCLUSION: The study is negative for deep venous thrombosis bilateral lower extremity. Corey Coley MD Brain MRI 09/21/17 Signed Impressions: Service Date/Time: Thursday, September 21, 2017 16:48 - CONCLUSION: Stable size and appearance to the small area of restricted diffusion in the left cerebellum. No new findings. Corey Coley MD Neck Magnetic Resonance Angiography 09/20/[id number] Signed Impressions: Service Date/Time: Wednesday, September 20, 2017 08:19 - CONCLUSION: 1. Technically limited examination with nonvisualization of the arch and distal aspect of the vertebral/internal. 2. Midportion of the vertebrals and both carotid bifurcations appear to be patent. 3. If there is a clinical concern for significant cervical vascular disease, CTA of the neck vasculature may be considered for further characterization. Rony Sarabia MD Head Magnetic Resonance Angiography [id number]/20/[id number] Signed Impressions: Service Date/Time: Wednesday, September 20, 2017 08:19 - CONCLUSION: 1. MRI suggests severe multi-vascular territory disease with short segment occlusion/high-grade stenosis in the distal left internal carotid, the left M1 segment and occlusion of the right MCA territory near its origin. There also appear to be segmental stenoses in the posterior cerebral arteries as well. Findings are suggestive of a multi-territory embolic event. 2. However, findings are discordant from the most recent MRI of the brain performed one day earlier which only showed minimal diffusion restriction in the left PICA distribution. Unless the patient has had a recent cerebrovascular event in the last 24 hours , I would suggest CTA of the intracranial circulation for further characterization. Rony Sarabia MD Carotid Artery Ultrasound 09/19/17 0000 Signed Impressions: Service Date/Time: Tuesday, September 19, 2017 16:45 - CONCLUSION: Moderate disease in the carotid bifurcations bilaterally with subjective measures suggesting stenosis potentially on the order of 50-60%% Maycol Merritt MD Objective Remarks GENERAL: Elderly female lying in bed in no acute distress. SKIN: Stage 2 sacral ulcer is now stage 1, very small (not examined today) HEENT: Atraumatic, normocephalic with EOMI. MMM. No rhinorrhea. No visible LAD or JVD. CARDIOVASCULAR: Regular rate and rhythm with no MGR. 2+ pulses in all 4 extremities. RESPIRATORY: Clear to auscultation bilaterally with no CRW. GASTROINTESTINAL: Abdomen soft, non-distended with positive bowel sounds. No masses appreciated. GENITOURINARY: Nephrostomy tube removed, sterile bandaging at insertion site. Site mildly tender to palpation. MUSCULOSKELETAL: Grossly normal motor function and ROM. NEUROLOGICAL: Awake and alert. No CN defects; no peripheral motor/sensory defects. Medications and IVs Current Medications Medications (Trade) Dose Ordered Sig/Alisha Route Start Time Stop Time Status Last Admin (NS Flush) 2 ml UNSCH PRN IV FLUSH 09/16/17 19:30 (NS Flush) 2 ml BID IV FLUSH 09/16/17 21:00 10/08/17 07:24 (Norvasc) 10 mg DAILY PO 09/17/17 09:00 Future hold 10/08/17 09:11 (Lopid) 300 mg BIDAC PO 09/17/17 07:00 10/08/17 06:42 (Prinivil) 40 mg DAILY PO 09/17/17 09:00 Future hold 10/08/17 09:11 (Narcan Inj) 0.4 mg UNSCH X1 PRN IV PUSH 09/16/17 20:15 10/16/17 20:14 (Zofran Inj) 4 mg Q8HR PRN IV PUSH 09/16/17 20:15 09/26/17 16:45 (NovoLOG INJ) 8 units TIDAC SQ 09/17/17 08:00 Future Hold 09/17/17 17:34 (D50w (Vial) Inj) 50 ml UNSCH PRN IV PUSH 09/16/17 20:15 (Glucagon Inj) 1 mg UNSCH PRN OTHER 09/16/17 20:15 (NovoLOG SUPPLEMENTAL SCALE) 1 ACHS SLIDING SCALE SQ 09/19/17 12:00 10/07/17 21:37 (Pravachol) 40 mg HS PO 09/19/17 21:00 10/07/17 21:35 (Aspirin) 325 mg DAILY PO 09/22/17 09:15 10/08/17 09:12 (Apresoline) 25 mg Q8HR PRN PO 09/23/17 04:45 Future Hold (Levemir Inj) 10 units HS SQ 09/23/17 21:00 10/07/17 21:36 (Lactinex) 1 tab Q12HR PO 09/23/17 10:15 10/08/17 09:11 (Tylenol) 650 mg Q6HR PO 09/23/17 12:00 10/08/17 06:42 (Duoneb Neb) 1 ampule Q4HR NEB PRN NEB 09/24/17 09:30 10/04/17 22:42 (Vasotec Inj) 1.25 mg Q6H PRN IV PUSH 09/25/17 05:45 09/25/17 06:30 (Ferrous Sulfate) 325 mg BID PO 09/29/17 13:45 10/08/17 09:11 (Trandate) 200 mg Q12HR PO 10/04/17 21:00 10/08/17 09:11 (Levaquin) 750 mg DAILY PO 10/06/17 12:45 11/03/17 12:44 10/08/17 09:11 (Atarax) 50 mg HS PRN PO 10/06/17 12:45 10/06/17 22:08 (Roxicodone) 10 mg Q4H PRN PO 10/07/17 10:30 10/08/17 06:42 (Roxicodone) 5 mg Q4H PRN PO 10/07/17 10:30 (Nikolas Pozo MD, R3) A/P Assessment and Plan 67-year-old female with uncontrolled diabetes and hypertension presenting with severe sepsis secondary to 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 Urology on board. Also with initial delirium and finding of small acute vs. subacute infarction of left cortex of cerebellum. Neurology on board. Perinephric abscess drainage on 09/[address]. Discharge Planning Planning for discharge to [facility], and patient has been accepted, anticipate discharge today (Nikolas Pozo MD, R3) Attending Attestation Patient seen and examined. Case reviewed and discussed with the resident team. Agree with plan of care as discussed with me and documented in the resident note. 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 DTPA renogram may be of benefit to see if viable renal tissue remaining on R -Nephrostomy tube pulled by urology 10/06. -Continue pain/fever control - Tylenol 650 mg every 6 hours PRN for flank pain. -Oxycodone for pain White count mildly elevated, stable (WBC 12-13) Platelets elevated, acute phase reaction Urology consulted -s/p R nephrostomy tube (09/27) removed (10/06) Infectious disease also on board, helping to manage antibiotics. Cultures: E Coli from nephrostomy tube (09/27) E Coli from blood cultures (09/20, 09/17, 09/16) E Coli from urine culture (09/19, 09/16) *Resistant to Ampicillin and Unasyn but otherwise sensitive Subsequent blood and urine cultures: -Urine 10/02 negative -Urine 10/04 negative -Blood 10/02 negative x4 days (2) Shortness of breath ICD Codes: R06.02 - Shortness of breath Status: Acute Plan: Resolved. She denied any shortness of breath this morning and was breathing on room air. -Will continue to monitor and avoid additional diuresis at this time, but will plan to restart if additional shortness of breath occurs -Respiratory walk test ordered - satting at 91% without oxygen on RM on exertion. (3) Anemia ICD Codes: D64.9 - Anemia, unspecified Status: Acute Plan: Anemia with iron studies in pattern of chronic disease. Hemoccult negative. Possibly some acute blood loss from abscess drainage procedure. Received 1 unit PRBC on 09/29/17. - Trial of ferrous sulfate 350 mg bid - Continue to monitor hemoglobin daily - stable (4) Bright red blood per rectum ICD Codes: K62.5 - Hemorrhage of anus and rectum Status: Resolved Plan: - Monitor hemoglobin/hematocrit - If repeat transfusion, have concern due to prior pulmonary congestion/TACO (5) TACO (transfusion associated circulatory overload) ICD Codes: E87.71 - Transfusion associated circulatory overload Status: Resolved Plan: Evidence of TACO post transfusion with shortness of breath, chest x-ray showing evidence of fluid overload, more crackles in lung bases, elevated BNP, cardiomegaly. Improved significantly with Lasix IV once. Now breathing much improved, crackles resolved. - Supplemental oxygen as needed - Repeat Lasix only if needed - Assess daily I's and O's - Reported event to blood bank, workup pending (6) Acute ischemic stroke ICD Codes: I63.9 - Cerebral infarction, unspecified Status: Acute Plan: Impression: MRI brain ordered 09/19 for altered mental status, some uncoordination with walking: Small acute versus subacute infarction of the left cerebellar cortex about 5 mm. (Dr. Bertrand discussed finding with radiologist, Dr. Coley- estimated from hours to several days old; does not correlate with her symptoms and is likely to not have any neurological effects given its location and size, likely came from an end artery as opposed to a major vessel.Possible small septic emboli as the cause). Head MRA: showing severe multi-vascular disease with occlusions and stenoses in multiple territories, suggesting possible embolic events. Repeat brain MRI is the same as initial MRI, so not correlated with the findings on the MRA. TERRELL showed a PFO, but no vegetations. Carotid Doppler suggesting 50-60% stenosis of carotid arteries bilaterally. EEG with generalized slowing, likely encephalopathy. LE ultrasound to check for DVT (due to PFO) is negative. - Consulted neurology, cardiology (signed off), infectious disease, appreciate recommendations. - Neurology suggests not closing PFO. - Aspirin 325 mg daily -Per discussion between Dr. Bertrand, patient, and her daughter, anticoagulation considered given the PFO and possible embolization event but patient elected to continue ASA at this time - On statin, continue gemfibrozil from home - Cardiac monitoring - Has bilateral SCD's and prophylactic heparin. - Amlodipine, lisinopril for BP control (7) Hypertension Status: Chronic Plan: History of hypertension - Continue home dose of amlodipine and lisinopril -Continue Labetalol to 200mg BID due to persistent HTN - Vasotec PRN (8) Stage 2 skin ulcer of sacral region ICD Codes: L89.152 - Pressure ulcer of sacral region, stage 2 Status: Chronic Plan: Very small stage 2 ulcer in sacral region, downgraded to stage 1 on - Occlusive hydrocolloid dressing daily - Turn every 2 hours - Up in chair as much as possible - Monitor for progression (9) Elevated troponin ICD Codes: R74.8 - Abnormal levels of other serum enzymes Status: Acute Plan: Elevated troponin, but remained relatively flat. Cardiology consulted, suggesting likely demand mediated in the context of kidney disease. - May consider Lexiscan depending on recovery. (10) Diabetes mellitus ICD Codes: E11.9 - Type 2 diabetes mellitus without complications Status: Chronic Plan: Very poor control at home. A1C 12.2. Has not been taking her oral medications at home and not on insulin. Poor understanding of diabetes. Only on glipizide at home. - Low dose sliding scale insulin. - Levemir 10 units at night. - Glucose checks before meals and at bedtime - Diabetic diet - Consulted paraeducator - Consulted case management to assess possible reasons for poor compliance and attendance at office visits (11) Dyslipidemia ICD Codes: E78.5 - Dyslipidemia Status: Chronic Plan: Continue home gemfibrozil Started Pravastatin 40 mg daily (12) DVT Prophylaxis Status: Acute Plan: DVT: Stopped heparin due to anemia, blood per rectum, and is much more mobile. Continue with SCD's, encourage ambulation. (13) FEN/PPX Status: Acute Plan: Fluids: PO Electrolytes: Monitor and replace as needed, monitor renal function Nutrition: Renal diet CODE STATUS: Full code (Nikolas Pozo MD, R3) Problem Qualifiers (1) Anemia: Qualified Codes: D64.9 - Anemia, unspecified Nikolas Pozo MD, R3 Oct 08, 2017 09:57 Desirae Clark MD Oct 08, 2017 12:41
[2017-10-08] MEDS ORDERED: FERR325T20 PO (10:07)
[2017-10-08] MEDS ORDERED: LEVEMIR SQ (10:07)
[2017-10-08] MEDS ORDERED: NOVOLOGSS SQ (10:07)
[2017-10-08] MEDS ORDERED: OXYC-395 PO (10:07)
[2017-10-08] MEDS ORDERED: PRAV40TA PO (10:09)
--- NOTE | 2017-10-08 10:13 | HHI.DS ---
Discharge Summary Admission Date Sep 16, 2017 at 17:36 Discharge Date: Oct 08, 2017 Admitting Diagnosis perinephric abscess, sepsis (1) Emphysematous pyelonephritis Diagnosis: Principal Plan: - Transition to PO Levaquin (28 days total) as outpatient, Cleared by ID for D/C -Discontinued Rocephin -K and for 20 days total -Repeat CT of abdomen/pelvis (10/05) -abscess drainage catheter in good position; no residual air remaining. DTPA renogram may be of benefit to see if viable renal tissue remaining on R -Nephrostomy tube pulled by urology 10/06. -Continue pain/fever control - Tylenol 650 mg every 6 hours PRN for flank pain. -Oxycodone for pain White count mildly elevated, stable (WBC 12-13) Platelets elevated, acute phase reaction Urology consulted -s/p R nephrostomy tube (09/27) removed (10/06) Infectious disease also on board, helping to manage antibiotics. Cultures: E Coli from nephrostomy tube (09/27) E Coli from blood cultures (09/20, 09/17, 09/16) E Coli from urine culture (09/19, 09/16) *Resistant to Ampicillin and Unasyn but otherwise sensitive Subsequent blood and urine cultures: -Urine 10/02 negative -Urine 10/04 negative -Blood 10/02 negative x4 days ICD Codes: N12 - Tubulo-interstitial nephritis, not specified as acute or chronic Status: Acute (2) Shortness of breath Diagnosis: Secondary Plan: Resolved. She denied any shortness of breath this morning and was breathing on room air. -Will continue to monitor and avoid additional diuresis at this time, but will plan to restart if additional shortness of breath occurs -Respiratory walk test ordered - satting at 91% without oxygen on RM on exertion. ICD Codes: R06.02 - Shortness of breath Status: Acute (3) Anemia Diagnosis: Secondary Plan: Anemia with iron studies in pattern of chronic disease. Hemoccult negative. Possibly some acute blood loss from abscess drainage procedure. Received 1 unit PRBC on 09/29/17. - Trial of ferrous sulfate 350 mg bid - Continue to monitor hemoglobin daily - stable ICD Codes: D64.9 - Anemia, unspecified Status: Acute (4) Bright red blood per rectum Diagnosis: Secondary Plan: - Monitor hemoglobin/hematocrit - If repeat transfusion, have concern due to prior pulmonary congestion/TACO ICD Codes: K62.5 - Hemorrhage of anus and rectum Status: Resolved (5) TACO (transfusion associated circulatory overload) Diagnosis: Secondary Plan: Evidence of TACO post transfusion with shortness of breath, chest x-ray showing evidence of fluid overload, more crackles in lung bases, elevated BNP, cardiomegaly. Improved significantly with Lasix IV once. Now breathing much improved, crackles resolved. - Supplemental oxygen as needed - Repeat Lasix only if needed - Assess daily I's and O's - Reported event to blood bank, workup pending ICD Codes: E87.71 - Transfusion associated circulatory overload Status: Resolved (6) Acute ischemic stroke Diagnosis: Principal Plan: Impression: MRI brain ordered 09/19 for altered mental status, some uncoordination with walking: Small acute versus subacute infarction of the left cerebellar cortex about 5 mm. (Dr. Bertrand discussed finding with radiologist, Dr. Coley- estimated from hours to several days old; does not correlate with her symptoms and is likely to not have any neurological effects given its location and size, likely came from an end artery as opposed to a major vessel.Possible small septic emboli as the cause). Head MRA: showing severe multi-vascular disease with occlusions and stenoses in multiple territories, suggesting possible embolic events. Repeat brain MRI is the same as initial MRI, so not correlated with the findings on the MRA. TERRELL showed a PFO, but no vegetations. Carotid Doppler suggesting 50-60% stenosis of carotid arteries bilaterally. EEG with generalized slowing, likely encephalopathy. LE ultrasound to check for DVT (due to PFO) is negative. - Consulted neurology, cardiology (signed off), infectious disease, appreciate recommendations. - Neurology suggests not closing PFO. - Aspirin 325 mg daily -Per discussion between Dr. Bertrand, patient, and her daughter, anticoagulation considered given the PFO and possible embolization event but patient elected to continue ASA at this time - On statin, continue gemfibrozil from home - Cardiac monitoring - Has bilateral SCD's and prophylactic heparin. - Amlodipine, lisinopril for BP control ICD Codes: I63.9 - Cerebral infarction, unspecified Status: Acute (7) Hypertension Diagnosis: Secondary Plan: History of hypertension - Continue home dose of amlodipine and lisinopril -Continue Labetalol to 200mg BID due to persistent HTN - Vasotec PRN Status: Chronic (8) Stage 2 skin ulcer of sacral region Diagnosis: Secondary Plan: Very small stage 2 ulcer in sacral region, downgraded to stage 1 on - Occlusive hydrocolloid dressing daily - Turn every 2 hours - Up in chair as much as possible - Monitor for progression ICD Codes: L89.152 - Pressure ulcer of sacral region, stage 2 Status: Chronic (9) Elevated troponin Diagnosis: Secondary Plan: Elevated troponin, but remained relatively flat. Cardiology consulted, suggesting likely demand mediated in the context of kidney disease. - May consider Lexiscan depending on recovery. ICD Codes: R74.8 - Abnormal levels of other serum enzymes Status: Acute (10) Diabetes mellitus Diagnosis: Secondary Plan: Very poor control at home. A1C 12.2. Has not been taking her oral medications at home and not on insulin. Poor understanding of diabetes. Only on glipizide at home. - Low dose sliding scale insulin. - Levemir 10 units at night. - Glucose checks before meals and at bedtime - Diabetic diet - Consulted assistant health educator - Consulted case management to assess possible reasons for poor compliance and attendance at office visits ICD Codes: E11.9 - Type 2 diabetes mellitus without complications Status: Chronic (11) Dyslipidemia Diagnosis: Secondary Plan: Continue home gemfibrozil Started Pravastatin 40 mg daily ICD Codes: E78.5 - Dyslipidemia Status: Chronic (12) DVT Prophylaxis Diagnosis: Secondary Plan: DVT: Stopped heparin due to anemia, blood per rectum, and is much more mobile. Continue with SCD's, encourage ambulation. Status: Acute (13) FEN/PPX Diagnosis: Secondary Plan: Fluids: PO Electrolytes: Monitor and replace as needed, monitor renal function Nutrition: Renal diet CODE STATUS: Full code Status: Acute Brief History Ms Cohen is a 67-year-old female with history of poorly controlled diabetes, hypertension presenting with a 2 day history of right-sided abdominal pain. Pain started 2 days ago and was quite severe. She's been taking 2 extra strength Tylenol about every 4 hours as well as ibuprofen extra strength every 6 hours. To keep her pain under good control. She also had 2 episodes of nonbloody, nonbilious vomiting the day before yesterday and 4 episodes the day of admission. Her abdominal pain was associated with fevers and chills with a maximum temperature of 101-102 as well as dysuria and urinary frequency. She denies bloody stool, change in stool pattern, incontinence, chest pain, shortness of breath. She has been taking her diabetes medicines as prescribed, but her blood sugar has been ranging in the 200s to 300s at home. She has no history of severe urinary tract infection, kidney stones, or pyelonephritis. She had an elevated lactic acid on admission which is improved now. She has had a procedure this am to help drain her infected kidney. She feels improved overall but her BPs were low especially around the time of the procedure. She received her BP meds including JEANNIE and Norvasc plus had anesthesia with the procedure so that could explain her low BPs but she is septic and bacteremic with 4/4 positive blood cultures for gram negative rods. Her lactic acid is improved this am. Will give 1 liter bolus and spoke to her nurse about her perhaps needing transfer to the unit if her BPs are dropping and she needs closer monitoring. Will hold her BP meds but she already took most of them. She feels improved today with less pain already and no fevers. CBC/BMP: 10/08/1718 10/08/1718 Significant Findings Laboratory Tests Test 10/06/17 06:45 10/07/17 06:30 10/08/17 05:18 White Blood Count 12.7 TH/MM3 (4.0-11.0) 11.7 TH/MM3 (4.0-11.0) Red Blood Count 2.63 MIL/MM3 (4.00-5.30) 2.98 MIL/MM3 (4.00-5.30) 2.80 MIL/MM3 (4.00-5.30) Hemoglobin 7.8 GM/DL (11.6-15.3) 8.7 GM/DL (11.6-15.3) 8.3 GM/DL (11.6-15.3) Hematocrit 23.5 % (35.0-46.0) 26.8 % (35.0-46.0) 24.9 % (35.0-46.0) Platelet Count 610 TH/MM3 (150-450) 638 TH/MM3 (150-450) 586 TH/MM3 (150-450) Mean Platelet Volume 6.8 FL (7.0-11.0) 6.9 FL (7.0-11.0) 6.9 FL (7.0-11.0) Neutrophils (%) (Auto) 74.5 % (16.0-70.0) Neutrophils # (Auto) 9.4 TH/MM3 (1.8-7.7) Creatinine 1.06 MG/DL (0.50-1.00) 1.20 MG/DL (0.50-1.00) 1.33 MG/DL (0.50-1.00) Random Glucose 148 MG/DL (74-106) Estimat Glomerular Filtration Rate 63 ML/MIN (>89) 55 ML/MIN (>89) 48 ML/MIN (>89) Carbon Dioxide Level 20.5 MEQ/L (21.0-32.0) Monocytes (%) (Auto) 8.9 % (0.0-8.0) Eosinophils (%) (Auto) 4.1 % (0.0-4.0) Monocytes # (Auto) 1.0 TH/MM3 (0-0.9) Imaging Last Impressions Chest X-Ray 10/07/17 0000 Signed Impressions: Service Date/Time: Saturday, October 07, 2017 10:43 - CONCLUSION: Decreased right basilar opacity with likely some residual atelectasis. Left basilar opacity is stable and likely represents pleural effusion with atelectasis and/ or airspace consolidation. Maycol Clark MD Abdomen/Pelvis CT 10/05/17 0000 Signed Impressions: Service Date/Time: Thursday, October 05, 2017 10:11 - CONCLUSION: Abscess drainage catheter in good position. There is no residual air remaining. DTPA renogram may be of benefit to see if there is indeed viable renal tissue remaining on the right. Gold Dorantes MD FACR Retroperitoneal Abscess Drainage 09/27/17 0000 Signed Impressions: Service Date/Time: Wednesday, September 27, 2017 15:35 - CONCLUSION: Uncomplicated CT-guided drainage of right perinephric abscess with placement of 8 [place] locking pigtail catheter yielding approximately 150 cc of cloudy, pink, pus- like fluid which was sent for culture and sensitivity. Daniel Portillo MD Consultation 09/26/17 0000 Signed Impressions: Service Date/Time: Tuesday, September 26, 2017 00:00 - CONCLUSION: The right perinephric abscess is not accessible percutaneously due to its anterior position. Daniel Portillo MD Lower Extremity Ultrasound 09/22/17 0000 Signed Impressions: Service Date/Time: August 08:57 - CONCLUSION: The study is negative for deep venous thrombosis bilateral lower extremity. Corey Coley MD Brain MRI 09/21/17 Signed Impressions: Service Date/Time: Thursday, September 21, 2017 16:48 - CONCLUSION: Stable size and appearance to the small area of restricted diffusion in the left cerebellum. No new findings. Corey Coley MD Neck Magnetic Resonance Angiography 09/20/176 Signed Impressions: Service Date/Time: Wednesday, September 20, 2017 08:19 - CONCLUSION: 1. Technically limited examination with nonvisualization of the arch and distal aspect of the vertebral/internal. 2. Midportion of the vertebrals and both carotid bifurcations appear to be patent. 3. If there is a clinical concern for significant cervical vascular disease, CTA of the neck vasculature may be considered for further characterization. Rony Sarabia MD Head Magnetic Resonance Angiography 09/20/176 Signed Impressions: Service Date/Time: Wednesday, September 20, 2017 08:19 - CONCLUSION: 1. MRI suggests severe multi-vascular territory disease with short segment occlusion/high-grade stenosis in the distal left internal carotid, the left M1 segment and occlusion of the right MCA territory near its origin. There also appear to be segmental stenoses in the posterior cerebral arteries as well. Findings are suggestive of a multi-territory embolic event. 2. However, findings are discordant from the most recent MRI of the brain performed one day earlier which only showed minimal diffusion restriction in the left PICA distribution. Unless the patient has had a recent cerebrovascular event in the last 24 hours , I would suggest CTA of the intracranial circulation for further characterization. Rony Sarabia MD Carotid Artery Ultrasound 09/19/17 0000 Signed Impressions: Service Date/Time: Tuesday, September 19, 2017 16:45 - CONCLUSION: Moderate disease in the carotid bifurcations bilaterally with subjective measures suggesting stenosis potentially on the order of 50-60%% Maycol Merritt MD PE at Discharge GENERAL: Elderly female lying in bed in no acute distress. SKIN: Stage 2 sacral ulcer is now stage 1, very small (not examined today) HEENT: Atraumatic, normocephalic with EOMI. MMM. No rhinorrhea. No visible LAD or JVD. CARDIOVASCULAR: Regular rate and rhythm with no MGR. 2+ pulses in all 4 extremities. RESPIRATORY: Clear to auscultation bilaterally with no CRW. GASTROINTESTINAL: Abdomen soft, non-distended with positive bowel sounds. No masses appreciated. GENITOURINARY: Nephrostomy tube removed, sterile bandaging at insertion site. Site mildly tender to palpation. MUSCULOSKELETAL: Grossly normal motor function and ROM. NEUROLOGICAL: Awake and alert. No CN defects; no peripheral motor/sensory defects. Hospital Course Patient was admitted on 09/16/17 for severe sepsis due to pyelonephritis. She required a long course of antibiotics. She formed an abscess that had to be drained by nephrostomy tube placement. Multiple specialists and to work with this patient due to her chronic illnesses consisting of cardiac, neurologic, urology and infectious disease. It took several days for her to fully recover to the point where she was stable enough for discharge to long-term facility with hopes for continued rehabilitation and improvement in current state of health. She was transitioned by mouth antibiotics that will be continued for 28 days on Levaquin. Pt Condition on Discharge: Stable Discharge Disposition: Discharge to SNF Discharge Instructions DIET: Follow Instructions for: Diabetic Diet Activities you can perform: Regular-No Restrictions Follow up Referrals: Cardiology - 1 Week Neurology - 1 Week PCP Follow-up - 1 Week Urology - 1 Week New Medications: Levofloxacin (Levaquin) 750 Mg Tablet 750 MG PO DAILY for Infection for 28 Days, #28 TAB 0 Refills Ferrous Sulfate (Ferosul) 325 Mg (65 Mg Iron) Tablet 325 MG PO BID, #60 Insulin Aspart Inj (Novolog Inj) 100 Unit/Ml Inj 100 UNIT SQ ACHS SLIDING SCALE, #1 INJECTION Insulin Detemir Inj (Levemir Inj) 1,000 unit/ 10 ML Vial 10 UNITS SQ HS, #1 INJECTION Do not mix with any other Insulin. Oxycodone (Oxycodone) 10 Mg Tab 10 MG PO Q4H PRN for PAIN 6-10, #60 TAB Pravastatin (Pravachol) 40 Mg Tab 40 MG PO HS, #30 TAB Continued Medications: Amlodipine (Amlodipine) 10 Mg Tab 10 MG PO DAILY for Blood Pressure Management, #60 TAB [address] (Aspirin DR) 81 Mg Tabdr 81 MG PO DAILY, TAB 0 Refills Gemfibrozil (Gemfibrozil) 600 Mg Tab 300 MG PO BIDAC, #60 TAB 1 Refill Take 30 minutes prior to breakfast and dinner. Lisinopril (Lisinopril) 40 Mg Tab 40 MG PO DAILY for Blood Pressure Management, #60 TAB 5 Refills Discontinued Medications: Glipizide (Glipizide) 5 Mg Tab 5 MG PO DAILY for Blood Sugar Management, #60 TAB 4 Refills Take 30 minutes before a meal Nikolas Pozo MD, R3 Oct 08, 2017 10:13
[2017-10-08 12:00] VITALS: BP 148/63; PULSE 70; RESP 20; TEMP 97.8; O2SAT 95
== END 2017-10-08 13:53 | DRG 871 ==
LOC: NEPE 15:17 → NEDA 17:36 → N04A 20:27 → N04B 09-18 07:58
PROVIDERS: ADMIT Family Medicine; ATTEND Family Medicine
PROC: 0T9B70Z Drainage of Bladder with Drainage Device, Via Natural or Artificial Opening (ICD-10-PCS; 2017-09-17)
PROC: 0T768DZ Dilation of Right Ureter with Intraluminal Device, Via Natural or Artificial Opening Endoscopic (ICD-10-PCS; principal; 2017-09-17 08:01)
PROC: B246ZZ4 Ultrasonography of Right and Left Heart, Transesophageal (ICD-10-PCS; 2017-09-21)
PROC: 0W9H30Z Drainage of Retroperitoneum with Drainage Device, Percutaneous Approach (ICD-10-PCS; 2017-09-27)
PROC: 30233N1 Transfusion of Nonautologous Red Blood Cells into Peripheral Vein, Percutaneous Approach (ICD-10-PCS; 2017-09-30)
DX: A41.51 Sepsis due to Escherichia coli [E. coli] (principal); N17.0 Acute kidney failure with tubular necrosis; I63.9 Cerebral infarction, unspecified; I11.0 Hypertensive heart disease with heart failure; L89.152 Pressure ulcer of sacral region, stage 2; G93.40 Encephalopathy, unspecified; E87.2 Acidosis; I50.9 Heart failure, unspecified; N15.1 Renal and perinephric abscess; N13.6 Pyonephrosis; Q21.1 Atrial septal defect; K62.5 Hemorrhage of anus and rectum; D62 Acute posthemorrhagic anemia; E11.65 Type 2 diabetes mellitus with hyperglycemia; R30.0 Dysuria; E78.1 Pure hyperglyceridemia; I25.10 Atherosclerotic heart disease of native coronary artery without angina pectoris; I65.23 Occlusion and stenosis of bilateral carotid arteries; Z86.14 Personal history of Methicillin resistant Staphylococcus aureus infection; Z83.3 Family history of diabetes mellitus; Z82.49 Family history of ischemic heart disease and other diseases of the circulatory system; R65.20 Severe sepsis without septic shock; Z79.84 Long term (current) use of oral hypoglycemic drugs; Z87.440 Personal history of urinary (tract) infections; Z95.5 Presence of coronary angioplasty implant and graft; R74.8 Abnormal levels of other serum enzymes; E87.71 Transfusion associated circulatory overload; Y84.8 Other medical procedures as the cause of abnormal reaction of the patient, or of later complication, without mention of misadventure at the time of the procedure; Z16.11 Resistance to penicillins; D64.9 Anemia, unspecified
CPT/HCPCS: 36430; 36600; 49406; 70544; 70547; 70551; 71010; 74176; 74420; 76937; 80048; 80053; 80061; 81001; 82140; 82272; 82607; 82728; 82805; 82948; 83036; 83540; 83550; 83605; 83690; 83735; 83880; 83921; 84100; 84165; 84425; 84439; 84443; 84484; 85007; 85014; 85018; 85025; 85027; 85610; 85613; 85652; 85730; 86021; 86038; 86078; 86140; 86430; 86592; 86850; 86880; 86900; 86901; 86920; 87040; 87070; 87077; 87086; 87186; 87205; 87640; 87641; 93005; 93225; 93226; 93306; 93312; 93320; 93325; 93880; 93970; 94150; 94620; 94640; 94664; 95819; 96374; C1729; C1769; C2617; J0295; J0692; J0696; J1644; J1815; J1940; J2185; J2250; J2270; J2370; J2405; J2543; J3010; J7030; J7042; P9016; Q9967

== ENCOUNTER 2017-10-10 18:36 | Inpatient (IN) | payer MEDICARE ==
[2017-10-10] VITALS (8 sets, daily range): BP systolic 106–161; BP diastolic 55–78; PULSE 80–102; RESP 18–22; TEMP 98.7–99.3; O2SAT 95–100
[~2017-10-10] VITALS: Ht 162.6 cm; Wt 86.6 kg
[~2017-10-10 18:36] MED LIST changes: +ECASA81 PO; +FERR325T20 PO; -GLIP5TAB8 PO; +LEVA750T9 PO; +LEVEMIR SQ; +NOVOLOGSS SQ; +OXYC-395 PO; +PRAV40TA PO
[2017-10-10] MEDS ORDERED: AZITHROMYCIN INJ 500 MG in SODIUM CHLOR 0.9% 250 ML INJ 250 ML IV STA (18:51)
[2017-10-10] MEDS ORDERED: PIPERACIL-TAZO 4.5 GM PREMIX 100 ML IV STA (18:51)
[2017-10-10] MEDS ORDERED: SODIUM CHLORIDE 0.9% FLUSH 10 ML FLUSH IVF PRN (19:00)
--- NOTE | 2017-10-10 19:14 | PD ---
HPI Chief Complaint: Respiratory Symptoms Time Seen by Provider: 19:10 Travel History International Travel<30 days: No Contact w/Intl Traveler<30days: No Traveled to known affect area: No History of Present Illness HPI The patient is a 67year old female who presents to the [facility] emergency department with a history of shortness of breath that became worse today. She was discharged from the hospital 2 days ago after a diagnosis of a cerebellar blood clot, "hole in her heart", and a kidney infection with sepsis requiring a 3 week admission to the hospital. She had a stent placed in her ureter and required a tube to drain the infection in the kidney that has been discontinued. Discharged to the rehab facility on 2L nc O2 PRN. The patient reports that she's had a cough productive of clear sputum. The patient has peripheral edema, however she reports that this is been improved compared to previously. She denies having any chest pain or chest pressure. The patient did have a fever with a MAXIMUM TEMPERATURE of 101 at the senior care prior to arrival again today. The patient is currently on continued antibiotic of Levaquin. She denies having any vomiting or diarrhea. On review of systems otherwise, the patient denies having any neck pain, abdominal pain, new urinary symptoms, or neurologic symptoms. The patient's O2 saturations reportedly at the senior care were down as low as into the 60s. [facility] Past Medical History Narrative Medical The patient's past medical history is significant for a history of diabetes mellitus, hyperlipidemia, hypertension, recent emphysematous pyelonephritis with sepsis, the patient was diagnosed with subacute cerebellar infarct and underwent TERRELL that showed a patent foramen ovale. It was recommended that the patient go on anticoagulation. The patient preferred to stay on aspirin and according to the record was going to continue on an adult aspirin daily. From reviewing the records the patient developed transfusion associated circulatory overload with fluid overload an elevated BNP on workup. The patient's TERRELL revealed a normal ejection fraction of 65%. The patient improved with treatment of Lasix. The patient has a history of anemia status post 1 unit of packed red blood cells being administered. She was Hemoccult negative. Progression of her anemia was thought to be related to baseline level of anemia from chronic disease and possibly some acute blood loss from abscess drainage procedure. Possibly related to this anemia, the patient was discharged to rehabilitation on iron, as well as a low-dose aspirin instead of the adult aspirin. Arthritis: No Asthma: No Autoimmune Disease: No Blood Disorders: No Anxiety: No Depression: No Heart Rhythm Problems: No Cancer: No Cardiovascular Problems: Yes High Cholesterol: Yes Chemotherapy: No Chest Pain: No Congestive Heart Failure: No COPD: No Cerebrovascular Accident: No Diabetes: Yes Patient Takes Glucophage: No Diminished Hearing: No Endocrine: Yes Gastrointestinal Disorders: Yes GERD: No Genitourinary: No Headaches: Yes Hiatal Hernia: No Heparin Induced Thrombocytopen: No Hypertension: No Immune Disorder: No Implanted Vascular Access Dvce: No Kidney Stones: No Musculoskeletal: No Neurologic: Yes Psychiatric: No Reproductive: No Respiratory: Yes Immunizations Current: No Migraines: No Radiation Therapy: No Renal Failure: No Seizures: No Sickle Cell Disease: No Sleep Apnea: No Thyroid Disease: No Ulcer: No Influenza Vaccination: Yes Menopausal: Yes Past Surgical History Narrative Surgical The patient's past surgical history is significant for ureteral stent placement , drainage of kidney related abscess, 1. Abdominal Surgery: No AICD: No Arteriovenous Shunt: No Cardiac Surgery: No Section: Yes Ear Surgery: No Endocrine Surgery: No Eye Surgery: No Genitourinary Surgery: No Gynecologic Surgery: Yes ( 1990) Insulin Pump: No Joint Replacement: No Neurologic Surgery: No Oral Surgery: No Pacemaker: No Thoracic Surgery: No Other Surgery: Yes (CSECT) Social History Alcohol Use: No Tobacco Use: No Substance Use: No Allergies-Medications (Allergen,Severity, Reaction): Coded Allergies: metformin (Unverified Allergy, Severe, Numbness, 10/10/17) clonidine (Unverified Allergy, Unknown, 10/10/17) Reported Meds & Prescriptions Reported Meds & Active Scripts Active Pravachol (Pravastatin) 40 Mg Tab 40 Mg PO HS Levemir Inj (Insulin Detemir) 1,000 unit/ 10 ML Vial 10 Units SQ HS Do not mix with any other Insulin. Novolog Inj (Insulin Aspart) 100 Unit/Ml Inj 100 Unit SQ ACHS SLIDING SCALE Oxycodone (Oxycodone HCl) 10 Mg Tab 10 Mg PO Q4H PRN Ferosul (Ferrous Sulfate) 325 Mg (65 Mg Iron) Tablet 325 Mg PO BID Levaquin (Levofloxacin) 750 Mg Tablet 750 Mg PO DAILY 28 Days Lisinopril 40 Mg Tab 40 Mg PO DAILY Amlodipine (Amlodipine Besylate) 10 Mg Tab 10 Mg PO DAILY Gemfibrozil 600 Mg Tab 300 Mg PO BIDAC Take 30 minutes prior to breakfast and dinner. Reported Aspirin DR (Aspirin) 81 Mg Tabdr 81 Mg PO DAILY Review of Systems Except as stated in HPI: all other systems reviewed are Neg General / Constitutional: No: Fever Eyes: No: Visual changes HENT: Positive: Congestion, No: Headaches Cardiovascular: Positive: Dyspnea on exertion, Edema, No: Chest Pain or Discomfort Respiratory: Positive: Cough, Shortness of Breath Gastrointestinal: No: Abdominal Pain Genitourinary: No: Dysuria Musculoskeletal: No: Pain Skin: No Rash Neurologic: No: Weakness, Focal Abnormalities, Change in Mentation, Slurred Speech, Sensory Disturbance Psychiatric: No: Depression Endocrine: No: Polydipsia Hematologic/Lymphatic: No: Easy Bruising Physical Exam Narrative General: The patient is a well-developed well-nourished female in no acute distress. Head and Neck exam: Head is normocephalic atraumatic. Eyes: EOMI, pupils are equal round and reactive to light. Nose: Midline septum with pink mucous membranes Mouth: Dentition unremarkable. Moist mucus membranes. Posterior oropharynx is not erythematous. No tonsillar hypertrophy. Uvula midline. Airway patent. Neck: No palpable lymphadenopathy. No nuchal rigidity. No thyromegaly. Cardiovascular: Sinus tachycardia in the low 100s with a 1/6 systolic murmur, no gallops or rubs. No pulse deficit to the extremities and simultaneous auscultation and palpation of her radial artery. Lungs: Decreased breath sounds in the bases, no wheezes, rhonchi, or crackles are audible. Abdomen: Soft, without tenderness to palpation in all 4 quadrants of the abdomen. No guarding, rebound, or rigidity. Normal bowel sounds are audible. No tenderness on palpation of McBurney's point. Extremities: No clubbing or cyanosis. The patient has 1+ pitting edema bilateral lower extremities. 2+ pulses in all 4 extremities. Less than 3 second capillary refill. Back: No spinous process tenderness to palpation. No costovertebral angle tenderness to palpation. Neurologic Exam: The patient has generalized weakness, no gross focal abnormalities. Skin Exam: No rash noted. Intact skin that is warm and mildly diaphoretic. Data Data Last Documented VS Vital Signs Date Time Temp Pulse Resp B/P (MAP) Pulse Ox O2 Delivery O2 Flow Rate FiO2 10/10/17 20:10 81 20 118/78 (91) 98 Nasal Cannula 5.00 10/10/17 18:47 99.3 Orders Orders Complete Blood Count With Diff (10/10/17 18:50) Comprehensive Metabolic Panel (10/10/17 18:50) B-Type Natriuretic Peptide (10/10/17 18:50) Act Partial Throm Time (Ptt) (10/10/17 18:50) Prothrombin Time / Inr (Pt) (10/10/17 18:50) Ckmb (Isoenzyme) Profile (10/10/17 18:50) Troponin I (10/10/17 18:50) Blood Culture (10/10/17 18:50) Iv Access Insert/Monitor (10/10/17 18:50) Electrocardiogram (10/10/17 18:50) Ecg Monitoring (10/10/17 18:50) Oximetry (10/10/17 18:50) Oxygen Administration (10/10/17 18:50) Chest, Single Ap (10/10/17 18:50) Sodium Chloride 0.9% Flush (Ns Flush) (10/10/17 19:00) Lactic Acid Sepsis Protocol (10/10/17 18:51) Piperacil-Tazo 4.5 Gm Premix (Zosyn 4.5 (10/10/17 18:51) Azithromycin Inj (Zithromax Inj) (10/10/17 18:51) Urinalysis - C+S If Indicated (10/10/17 18:52) Ct Pulmonary Angiogram (10/10/17 19:36) Morphine Inj (Morphine Inj) (10/10/17 20:45) Ondansetron Inj (Zofran Inj) (10/10/17 20:45) Furosemide Inj (Lasix Inj) (10/10/17 20:45) Iohexol 350 Inj (Omnipaque 350 Inj) (10/10/17 21:05) Admit Order (Ed Use Only) (10/10/17 21:29) Labs Laboratory Tests Test 10/10/17 19:10 10/10/17 19:32 White Blood Count 22.4 TH/MM3 Red Blood Count 3.03 MIL/MM3 Hemoglobin 8.6 GM/DL Hematocrit 26.9 % Mean Corpuscular Volume 88.6 FL Mean Corpuscular Hemoglobin 28.3 PG Mean Corpuscular Hemoglobin Concent 31.9 % Red Cell Distribution Width 14.3 % Platelet Count 750 TH/MM3 Mean Platelet Volume 7.2 FL Neutrophils (%) (Auto) 74.0 % Lymphocytes (%) (Auto) 16.9 % Monocytes (%) (Auto) 6.2 % Eosinophils (%) (Auto) 0.9 % Basophils (%) (Auto) 2.0 % Neutrophils # (Auto) 16.6 TH/MM3 Lymphocytes # (Auto) 3.8 TH/MM3 Monocytes # (Auto) 1.4 TH/MM3 Eosinophils # (Auto) 0.2 TH/MM3 Basophils # (Auto) 0.5 TH/MM3 CBC Comment AUTO DIFF Differential Comment AUTO DIFF CONFIRMED Platelet Estimate HIGH Platelet Morphology Comment NORMAL Prothrombin Time 12.6 SEC Prothromb Time International Ratio 1.1 RATIO Activated Partial Thromboplast Time 29.3 SEC Blood Urea Nitrogen 14 MG/DL Creatinine 1.24 MG/DL Random Glucose 227 MG/DL Total Protein 7.3 GM/DL Albumin 1.9 GM/DL Calcium Level 9.4 MG/DL Alkaline Phosphatase 149 U/L Aspartate Amino Transf (AST/SGOT) 20 U/L Alanine Aminotransferase (ALT/SGPT) 9 U/L Total Bilirubin 0.2 MG/DL Sodium Level 132 MEQ/L Potassium Level 4.4 MEQ/L Chloride Level 98 MEQ/L Carbon Dioxide Level 22.2 MEQ/L Anion Gap 12 MEQ/L Estimat Glomerular Filtration Rate 53 ML/MIN Total Creatine Kinase 27 U/L Troponin I 0.10 NG/ML B-Type Natriuretic Peptide 964 PG/ML Lactic Acid Level 1.1 mmol/L [facility] Medical Decision Making Medical Screen Exam Complete: Yes Emergency Medical Condition: Yes Medical Record Reviewed: Yes Interpretation(s) Last Impressions Chest X-Ray 10/10/17 1850 Signed Impressions: Service Date/Time: Tuesday, October 10, 2017 19:11 - CONCLUSION: Worsening diffuse process such as edema with bibasilar areas of consolidation or atelectasis. Some degree of pleural effusion cannot be excluded. Maycol Nance MD Differential Diagnosis Pneumonia, versus new-onset congestive heart failure, versus pulmonary embolism Narrative Course During the course of the patients emergency department visit, the patients history, examination, and differential diagnosis were reviewed with the patient. The patient was placed on a cardiac rehabilitation program director with oximetry and frequent blood pressure monitoring. The patient had IV access obtained and blood work sent for analysis. The patient will have an ECG done. The patient had blood cultures 2 collected, lactic acid drawn. The patient's ECG done on arrival shows a sinus rhythm heart rate of 85, QRS duration is 89 ms, QTC 419 ms T waves are inverted in V2. No other acute abnormality. No acute ST segment elevation. The patient was initially provided Zosyn and azithromycin for broad-spectrum antibiotic coverage for possible underlying pulmonary source of sepsis. The patients laboratory studies were reviewed and remarkable for a white count of 22.4 which is increased compared to previously, hemoglobin 8.6 which is stable compared to previously, platelets 750, neutrophils 74, CMP is remarkable for sodium of 132, creatinine of 1.24 which is improved compared to previously, glucose 227, alkaline phosphatase 149, ALT 9, CPK 27, troponin I 0.10, albumin 1.9, BNP is 964, lactic acid 1.1, PT 12.6, PTT 29.3. Radiology studies were reviewed and remarkable for a chest x-ray that shows worsening diffuse process such as edema with bibasilar areas of consolidation or atelectasis, some degree of pleural effusion cannot be excluded. A CTA to rule out pulmonary embolism has also been ordered. The patients results were discussed with the patient, including the plan of care. I explained that further testing and/ or monitoring is indicated based on the patients history, examination, and/ or laboratory findings. Therefore, I recommended admission for additional evaluation. The patient expressed understanding and was agreeable with this plan. The patient was admitted to the hospital in guarded condition and sent to a bed under the care of the [facility] service. Physician Communication Physician Communication The patient's case including history, pertinent physical examination findings, and laboratory studies were discussed with []. It was agreed that the patient would be admitted to the [] hospitalist service. Diagnosis Primary Impression: Shortness of breath Additional Impressions: Hypoxemia Pulmonary edema Qualified Codes: J81.0 - Acute pulmonary edema Leukocytosis Qualified Codes: D72.829 - Elevated white blood cell count, unspecified Admitting Information Admitting Physician Requests: Admit Marcia Shabazz MD Oct 10, 2017 19:14
[2017-10-10 20:15] LABS: AUTOMATED NEUTROPHIL # 16.6 TH/MM3 (1.8-7.7); BASOPHIL # 0.5 TH/MM3 (0-0.2); EOSINOPHIL # 0.2 TH/MM3 (0-0.4); EOSINOPHIL % 0.9 % (0.0-4.0); HEMATOCRIT 26.9 % (35.0-46.0); LYMPH % 16.9 % (9.0-44.0); LYMPHOCYTE # 3.8 TH/MM3 (1.0-4.8); MEAN CELL VOLUME 88.6 FL (80.0-100.0); MEAN CORPUSCULAR HEMOGLOBIN 28.3 PG (27.0-34.0); MEAN CORPUSCULAR HGB CONC 31.9 % (32.0-36.0); MONO % 6.2 % (0.0-8.0); PLATELET COUNT 750 TH/MM3 (150-450); RED BLOOD COUNT 3.03 MIL/MM3 (4.00-5.30); RED CELL DISTRIBUTION WIDTH 14.3 % (11.6-17.2); WHITE BLOOD COUNT 22.4 TH/MM3 (4.0-11.0)
--- NOTE | 2017-10-10 20:16 | RADRPT ---
EXAM DATE/TIME: 10/10/2017 19:11 [facility] COMPARISON: CHEST SINGLE AP, October 07, 2017, 10:43. INDICATIONS : Short of breath. MEDICAL HISTORY : None. SURGICAL HISTORY : None. ENCOUNTER: [facility] ACUITY: 2 weeks PAIN SCORE: 0/10 LOCATION: Bilateral chest FINDINGS: The heart size is borderline enlarged. The lungs demonstrate diffuse mixed interstitial and alveolar consolidation with the alveolar consolidation being worse at the bases. There is silhouetting of the hemidiaphragms. The bony structures are intact. CONCLUSION: Worsening diffuse process such as edema with bibasilar areas of consolidation or atelectasis. Some de gree of pleural effusion cannot be excluded. Maycol Nance MD on October 10, 2017 at 20:07 Board Certified Radiologist. This report was verified electronically.
[2017-10-10 20:18] LABS: HEMO FLAGS AUTO DIFF
[2017-10-10 20:26] LABS: ALT (GPT) 9 U/L (10-53); ANION GAP 12 MEQ/L (5-15); AST (GOT) 20 U/L (15-37); BICARBONATE 22.2 MEQ/L (21.0-32.0); BLOOD UREA NITROGEN 14 MG/DL (7-18); CHLORIDE 98 MEQ/L (98-107); GLOMERULAR FILTRATION RATE 53 ML/MIN (>89); POTASSIUM 4.4 MEQ/L (3.5-5.1); SODIUM (NA) 132 MEQ/L (136-145)
[2017-10-10 20:37] LABS: ALKALINE PHOSPHATASE 149 U/L (45-117); TOTAL BILIRUBIN ADULT 0.2 MG/DL (0.2-1.0)
[2017-10-10 20:40] LABS: APTT (PATIENT) 29.3 SEC (24.3-30.1); INTERNATIONAL NORMALIZED RATIO 1.1 RATIO; PROTHROMBIN TIME - PATIENT 12.6 SEC (9.8-11.6)
[2017-10-10 20:41] LABS: CREATINE KINASE 27 U/L (26-192)
[2017-10-10] MEDS ORDERED: MORPHINE SULFATE 4 MG/ML INJ IV PUSH ONE (20:45)
[2017-10-10] MEDS ORDERED: ONDANSETRON HCL 4 MG/2 ML VIAL IV PUSH ONE (20:45)
[2017-10-10] MEDS ORDERED: FUROSEMIDE 100 MG/10 ML VIAL IV PUSH ONE (20:45)
[2017-10-10] MEDS ORDERED: IOHEXOL 350 MG/ML 10 ML VIAL (for RAD DIAG) IVCONTRAST ONE (21:05)
[2017-10-10 21:25] LABS: PLATELET ESTIMATE SMEAR HIGH (NORMAL); PLATELET MORPHOLOGY NORMAL (NORMAL); SCAN/DIFF AUTO DIFF CONFIRMED
[2017-10-10] MEDS ORDERED: ASPIRIN 81 MG CHEW TAB CHEW ONE (21:45)
[2017-10-10] MEDS ORDERED: NITROGLYCERIN 2% OINT 1 GM PACKET TOPICAL ONE (21:45)
--- NOTE | 2017-10-10 22:16 | RADRPT ---
EXAM DATE/TIME: 10/10/2017 20:59 [facility] COMPARISON: CHEST SINGLE AP, October 07, 2017, 10:43. CHEST SINGLE AP, October 10, 2017, 19:11. INDICATIONS : Shortness of breath and cough. IV CONTRAST: 75 cc Omnipaque 350 (iohexol) IV RADIATION DOSE: 23.03 CTDIvol (mGy) MEDICAL HISTORY : Cardiovascular disease. Diabetes. SURGICAL HISTORY : None. ENCOUNTER: Initial ACUITY: 1 day PAIN SCALE: 0/10 LOCATION: chest TECHNIQUE: Volumetric scanning of the chest was performed using a pulmonary embolism protocol MIP images were re constructed. Using automated exposure control and adjustment of the mA and/or kV according to patien t size, radiation dose was kept as low as reasonably achievable to obtain optimal diagnostic quality images. DICOM format image data is available electronically for review and comparison. Follow-up recommendations for detected pulmonary nodules are based at a minimum on nodule size and pa tient risk factors according to Fleischner Society Guidelines. FINDINGS: PULMONARY ARTERIES: No filling defects are seen in the pulmonary arteries through the segmental level. LUNGS: There are mild to moderate bilateral pleural effusions with accompanying areas of atelectasis or cons olidation at the lower lobes bilaterally. There is some mosaic perfusion pattern to the remaining asp ects of the lungs which may reflect some edema. PLEURAE: There mild to moderate bilateral pleural effusions. MEDIASTINUM: There nonspecific mildly prominent lymph nodes seen throughout the mediastinum including the prevascu lar, AP window, subcarinal, right paratracheal and precarinal regions. Coronary artery calcifications are present. MUSCULOSKELETAL: Within normal limits for patient age. MISCELLANEOUS: The visualized upper abdominal organs demonstrate no acute abnormality. CONCLUSION: 1. No pulmonary loss. 2. Mild to moderate bilateral pleural effusions with accompanying areas of atelectasis or consolidati on of the lower lobes. 3. Mosaic perfusion pattern seen throughout the lungs likely related to mild edema. Maycol Nance MD on October 10, 2017 at 22:10 Board Certified Radiologist. This report was verified electronically.
[2017-10-10 22:29] LABS: BACTERIA, URINE OCC /hpf; BLOOD, URINE SMALL (NEG); COMMENT (UR) CULTURE INDICATED; CULTURE IF INDICATED CULTURE INDICATED; GLUCOSE,URINE NEG (NEG); KETONE, URINE NEG (NEG); MUCUS URINE FEW /lpf (OCC); NITRITE,URINE NEG (NEG); PH, URINE 5.5 (5.0-8.5); SQUAMOUS EPITHELIAL CELL URINE <1 /hpf (0-5); URINE COLOR LIGHT-YELLOW (YELLW/STRAW)
--- NOTE | 2017-10-10 22:34 | HHI.HP ---
[facility] Service Family Medicine Primary Care Physician Wade Garcia , R3 MD Lloyd Admission Diagnosis Pulmonary edema, leukocytosis, hypoxemia, UTI Diagnoses: Chief Complaint: shortness of breath International Travel<30 Days: No Contact w/Intl Traveler<30days: No History of Present Illness Patient is a 67-year-old female with history of diabetes, hypertension and recent hospitalization from pyelonephritis who presents today for shortness of breath. She is accompanied by daughter and father. Of note, daughter is health care surrogate. Patient states that she was having worsening shortness of breath since being discharged 2 days ago. Did state that she was having some breathing difficulties towards the end of her admission, but was discharged home. Sectioning was done on October 07, which did show some fluid in the left lung. She was also discharged home on oxygen, was a new requirement. She was sent to rehabilitation on discharge due to mild stroke during admission. He thinks she' s been running fevers at night. Blood sugars have also been elevated recently as well. She states that she had temperature of 103 in the long term. He also states that her oxygen saturation went down to 60%. Endorses occasional chest tightness. Having a cough productive of clear phlegm. One episode of nausea before she came here. No history of lung disease. 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 She was on IV antibiotics and had a stent placed. Nephrostomy tube was removed. She was sent home on oral antibiotics. Review of Systems Constitutional: DENIES: Fever, Weight gain, Weight loss, Chills Cardiovascular: COMPLAINS OF: Lower Extremity Edema, DENIES: Chest pain, Palpitations Gastrointestinal: COMPLAINS OF: Abdominal pain, Nausea, DENIES: Bloody stools, Constipation, Vomiting Genitourinary: DENIES: Urgency, Hematuria, Dysuria Musculoskeletal: COMPLAINS OF: Joint pain, Muscle aches, Back pain Integumentary: DENIES: Abnormal pigmentation, Rash Hematologic/lymphatic: DENIES: Bruising, Lymphadenopathy Immunologic/allergic: DENIES: Eczema, Urticaria Neurologic: COMPLAINS OF: Headache, DENIES: Localized weakness, Paresthesias Past Family Social History Past Medical History DM HTN HLD PFO emphysematous pyelonephritis/perinephrinic abscess Past Surgical History C section (1990) Reported Medications Reported Meds & Active Scripts Active Pravachol (Pravastatin) 40 Mg Tab 40 Mg PO HS Levemir Inj (Insulin Detemir) 1,000 unit/ 10 ML Vial 10 Units SQ HS Do not mix with any other Insulin. Novolog Inj (Insulin Aspart) 100 Unit/Ml Inj 100 Unit SQ ACHS SLIDING SCALE Oxycodone (Oxycodone HCl) 10 Mg Tab 10 Mg PO Q4H PRN Ferosul (Ferrous Sulfate) 325 Mg (65 Mg Iron) Tablet 325 Mg PO BID Levaquin (Levofloxacin) 750 Mg Tablet 750 Mg PO DAILY 28 Days Lisinopril 40 Mg Tab 40 Mg PO DAILY Amlodipine (Amlodipine Besylate) 10 Mg Tab 10 Mg PO DAILY Gemfibrozil 600 Mg Tab 300 Mg PO BIDAC Take 30 minutes prior to breakfast and dinner. Tylenol 500mg q6H Reported Aspirin DR (Aspirin) 81 Mg Tabdr 81 Mg PO DAILY Allergies: Coded Allergies: metformin (Unverified Allergy, Severe, Numbness, 10/10/17) clonidine (Unverified Allergy, Unknown, 10/10/17) Active Ordered Medications Active Medications Aspirin (Aspirin Chew) 162 mg ONCE ONCE CHEW Last administered on 10/10/17 21 :51; Admin Dose 162 MG; Start 10/10/17 at 21:45; Stop 10/10/17 at 21:46; Status DC Azithromycin 500 mg/Sodium Chloride 250 ml @ 250 mls/hr ONCE STAT IV Last administered on 10/10/17 20:43; Admin Dose 250 MLS/HR; Start 10/10/17 at 18: 51; Stop 10/10/17 at 19:50; Status DC Furosemide (Lasix Inj) 60 mg ONCE ONCE IV PUSH Last administered on 10/10/17 20:44; Admin Dose 60 MG; Start 10/10/17 at 20:45; Stop 10/10/17 at 20:46; Status DC Iohexol (Omnipaque 350 Inj) 75 ml STK-MED ONCE IVCONTRAST Last administered on 10/10/17 21:05; Admin Dose 75 ML; Start 10/10/17 at 21:05; Stop 10/10/17 at 21:06; Status DC Morphine Sulfate (Morphine Inj) 4 mg ONCE ONCE IV PUSH Last administered on 20:44; Admin Dose 4 MG; Start 10/10/17 at 20:45; Stop 10/10/17 at 20: 46; Status DC Nitroglycerin (Nitroglycerin 2% Oint) 1 inch ONCE ONCE TOPICAL Last administered on 10/10/17 21:51; Admin Dose 1 INCH; Start 10/10/17 at 21:45; Stop 10/10/17 at 21:46; Status DC Ondansetron HCl (Zofran Inj) 4 mg ONCE ONCE IV PUSH Last administered on 20:44; Admin Dose 4 MG; Start 10/10/17 at 20:45; Stop 10/10/17 at 20:46; Status DC Piperacillin Sod/ Tazobactam Sod 100 ml @ 200 mls/hr ONCE STAT IV Last administered on 10/10/17 19:59; Admin Dose 200 MLS/HR; Start 10/10/17 at 18: 51; Stop 10/10/17 at 19:20; Status DC Sodium Chloride (NS Flush) 2 ml UNSCH PRN IVF; Start 10/10/17 at 19:00 Family History Father-heart disease Mother-DM, HTN Grandma-cancer Social History Before last hospitalization, worked and fully independent; in [place] [facility] for rehab now Tobacco: never Alcohol: never Illicit drug use: never Physical Exam Vital Signs Vital Signs Date Time Temp Pulse Resp B/P (MAP) Pulse Ox O2 Delivery O2 Flow Rate FiO2 10/10/17 22:07 98.7 10/10/17 21:52 81 18 106/55 (72) 95 Nasal Cannula 4.00 10/10/17 20:10 81 20 118/78 (91) 98 Nasal Cannula 5.00 10/10/17 19:47 81 22 130/60 (83) 100 Non-Rebreather 15.00 10/10/17 19:46 100 Non-Rebreather 15.00 10/10/17 19:46 100 Non-Rebreather 15.00 10/10/17 18:47 102 22 98 Non-Rebreather 15.00 10/10/17 18:47 99.3 102 22 161/74 (103) 98 Non-Rebreather 15.00 10/10/17 18:39 99.3 102 22 161/74 (103) 97 Physical Exam GENERAL: This is a well-nourished, well-developed patient, in no apparent distress. SKIN: No rashes, ecchymoses or lesions. Cool and dry. Sacrum evaluated, minimal redness from previous ulcer documented HEAD: Atraumatic. Normocephalic. No temporal or scalp tenderness. EYES: Pupils equal round and reactive. Extraocular motions intact. No scleral icterus. No injection or drainage. ENT: Throat without erythema, tonsillar hypertrophy or exudate. Uvula midline. Airway patent. NECK: Trachea midline. No JVD or lymphadenopathy. Supple, nontender. CARDIOVASCULAR: Regular rate and rhythm without murmurs, gallops, or rubs. RESPIRATORY: Decreased breath sounds overall. No wheezes or crackles appreciated. BACK: no CVA tenderness GASTROINTESTINAL: Abdomen soft, non-tender, nondistended. No hepato-splenomegaly , or palpable masses. No guarding. MUSCULOSKELETAL: Extremities without clubbing, cyanosis. 1+ edema bilateral lower extremities. NEUROLOGICAL: Awake and alert. Motor and sensory grossly within normal limits. Normal speech. Laboratory Laboratory Tests Test 10/10/17 19:10 10/10/17 19:32 10/10/17 22:00 White Blood Count 22.4 Red Blood Count 3.03 Hemoglobin 8.6 Hematocrit 26.9 Mean Corpuscular Volume 88.6 Mean Corpuscular Hemoglobin 28.3 Mean Corpuscular Hemoglobin Concent 31.9 Red Cell Distribution Width 14.3 Platelet Count 750 Mean Platelet Volume 7.2 Neutrophils (%) (Auto) 74.0 Lymphocytes (%) (Auto) 16.9 Monocytes (%) (Auto) 6.2 Eosinophils (%) (Auto) 0.9 Basophils (%) (Auto) 2.0 Neutrophils # (Auto) 16.6 Lymphocytes # (Auto) 3.8 Monocytes # (Auto) 1.4 Eosinophils # (Auto) 0.2 Basophils # (Auto) 0.5 CBC Comment AUTO DIFF Differential Comment AUTO DIFF CONFIRMED Platelet Estimate HIGH Platelet Morphology Comment NORMAL Prothrombin Time 12.6 Prothromb Time International Ratio 1.1 Activated Partial Thromboplast Time 29.3 Blood Urea Nitrogen 14 Creatinine 1.24 Random Glucose 227 Total Protein 7.3 Albumin 1.9 Calcium Level 9.4 Alkaline Phosphatase 149 Aspartate Amino Transf (AST/SGOT) 20 Alanine Aminotransferase (ALT/SGPT) 9 Total Bilirubin 0.2 Sodium Level 132 Potassium Level 4.4 Chloride Level 98 Carbon Dioxide Level 22.2 Anion Gap 12 Estimat Glomerular Filtration Rate 53 Total Creatine Kinase 27 Troponin I 0.10 B-Type Natriuretic Peptide 964 Lactic Acid Level 1.1 Date/Time Source Procedure Growth Status 10/10/17 19:10 Blood Peripheral Aerobic Blood Culture Pending Received 10/10/17 19:10 Blood Peripheral Anaerobic Blood Culture Pending Received Result Diagram: 10/10/17190910/10/171909 Imaging Last Impressions CT Angiography 10/10/17 193 Signed Impressions: Service Date/Time: Tuesday, October 10, 2017 20:59 - CONCLUSION: 1. No pulmonary loss. 2. Mild to moderate bilateral pleural effusions with accompanying areas of atelectasis or consolidation of the lower lobes. 3. Mosaic perfusion pattern seen throughout the lungs likely related to mild edema. Maycol Nance MD Chest X-Ray 10/10/[id number] Signed Impressions: Service Date/Time: Tuesday, October 10, 2017 19:11 - CONCLUSION: Worsening diffuse process such as edema with bibasilar areas of consolidation or atelectasis. Some degree of pleural effusion cannot be excluded. Maycol Nance MD Septic Shock Reassessment Heart: Regular rate and rhythm Lungs: Diminished Skin: Warm, Dry Peripheral Pulses: Bounding Right Radial Bounding Left Radial Bounding Right Popliteal Bounding Left Popliteal Bounding Right Dorsalis Pedis Bounding Left Dorsalis Pedis Bounding Right Posterior Tibial Bounding Left Posterior Tibial Capillary Refill: <2 seconds Caprini VTE Risk Assessment Caprini VTE Risk Assessment: Mod/High Risk (score >= 2) Caprini Risk Assessment Model Point Value = 1 Point Value = 2 Point Value = 3 Point Value = 5 Age 41-60 Minor surgery BMI > 25 kg/m2 Swollen legs Varicose veins or History of unexplained or recurrent spontaneous Oral contraceptives or hormone replacement Sepsis (< 1 month) Serious lung disease, including pneumonia (< 1 month) Abnormal pulmonary function Acute myocardial infarction Congestive heart failure (< 1 month) History of inflammatory bowel disease Medical patient at bed rest Age 61-74 Arthroscopic surgery Major open surgery (> 45 min) Laparoscopic surgery (> 45 min) Malignancy Confined to bed (> 72 hours) Immobilizing plaster cast Central venous access Age >= 75 History of VTE Family history of VTE Factor V Leiden Prothrombin [id number] Lupus anticoagulant Anticardiolipin antibodies Elevated serum homocysteine Heparin-induced thrombocytopenia Other congenital or acquired thrombophilia Stroke (< 1 month) Elective arthroplasty Hip, pelvis, or leg fracture Acute spinal cord injury (< 1 month) Prophylaxis Regimen Total Risk Factor Score Risk Level Prophylaxis Regimen 0-1 Low Early ambulation 2 Moderate Order ONE of the following: *Sequential Compression Device (SCD) *Heparin 5000 units SQ BID 3-4 Higher Order ONE of the following medications: *Heparin 5000 units SQ TID *Enoxaparin/Lovenox 40 mg SQ daily (WT < 150 kg, CrCl > 30 mL/min) *Enoxaparin/Lovenox 30 mg SQ daily (WT < 150 kg, CrCl > 10-29 mL/min) *Enoxaparin/Lovenox 30 mg SQ BID (WT < 150 kg, CrCl > 30 mL/min) AND/OR *Sequential Compression Device (SCD) 5 or more Highest Order ONE of the following medications: *Heparin 5000 units SQ TID (Preferred with Epidurals) *Enoxaparin/Lovenox 40 mg SQ daily (WT < 150 kg, CrCl > 30 mL/min) *Enoxaparin/Lovenox 30 mg SQ daily (WT < 150 kg, CrCl > 10-29 mL/min) *Enoxaparin/Lovenox 30 mg SQ BID (WT < 150 kg, CrCl > 30 mL/min) AND *Sequential Compression Device (SCD) Assessment and Plan Assessment and Plan 67-year-old female with history of diabetes and hypertension with recent hospitalization presents with shortness of breath. Found to have pleural effusions in lungs and leukocytosis. Will admit for workup. Code Status Full Discussed Condition With Dr. Shabazz Problem List: (1) Sepsis ICD Codes: A41.9 - Sepsis, unspecified organism Status: Acute Plan: Patient with tachycardia 102 and tachypnea 22 on admission. WBC 22.4, meets SIRS criteria. Likely source of infection, includes pneumonia or UTI. Lactic acid 1.1. No signs of organ dysfunction. -Zosyn 4.5g q6H -Azithromycin 500mg daily -Blood cultures pending -UA culture pending (2) Shortness of breath ICD Codes: R06.02 - Shortness of breath Status: Acute Plan: Patient with worsening shortness of breath for the last week, during hospitalization and worsening upon discharge. No history of lung disease Chest x-ray: Worsening diffuse process such as edema with bibasilar areas of consolidation or atelectasis. CTA: Mild to moderate bilateral pleural effusions with a combination areas of atelectasis or consolidation of the lower lobes. As a perfusion pattern likely related to mild edema. Echocardiogram on 09/19/17 shows ejection fraction of 65%; BNP ~1000 on admission WBC 22.4, elevated from 10.7 two days ago. Possible pneumonia vs pleural effusion causing symptoms Given 60mg IV Lasix in ED -Monitor vitals -May need additional diuresis -Oxygen PRN -Monitor fluid status with I/O -Antibiotics as above to cover for HCAP -Legionella antigen (3) UTI (urinary tract infection) ICD Codes: N39.0 - Urinary tract infection, site not specified Plan: UA shows moderate leukocyte esterase, 33 done greasy, occasional bacteria. Zosyn to cover for possible UTI Urine culture pending (4) Anemia ICD Codes: D64.9 - Anemia, unspecified Status: Acute Plan: Hemoglobin of 8.6 on admission. Up from 8.3 on discharge 2 days ago. Today's show anemia chronic disease on admission. -Continue oral iron therapy trial (5) Hypertension Status: Chronic Plan: Blood pressure 161/74 arrival. Trend down to within normal limits. -Continue home Norvasc and lisinopril. (6) Diabetes mellitus ICD Codes: E11.9 - Type 2 diabetes mellitus without complications Status: Chronic Plan: Patient on home Levemir and sliding scale Hemoglobin A1c 12.2 on last admission -Regular accuchecks -Continue home Levemir -Low dose sliding scale novolog (7) Dyslipidemia ICD Codes: E78.5 - Dyslipidemia Status: Chronic Plan: Continue home pravastatin (8) FEN Status: Acute Plan: Fluids: tolerating PO, cautious while pt fluid overloaded Electrolytes: wnl, continue to monitor Nutrition: diabetic diet DVT ppx: Heparin 5000u q12H Physician Certification 2 Midnight Certification Type: Admission for Inpatient Services Order for Inpatient Services The services are ordered in accordance with Medicare regulations or non- Medicare payer requirements, as applicable. In the case of services not specified as inpatient-only, they are appropriately provided as inpatient services in accordance with the 2-midnight benchmark. Estimated LOS (days): 3 days is the estimated time the patient will need to remain in the hospital, assuming treatment plan goals are met and no additional complications. Post-Hospital Plan: Long-Term/CUSTODIAL Problem Qualifiers (1) Sepsis: Qualified Codes: A41.9 - Sepsis, unspecified organism (2) UTI (urinary tract infection): Qualified Codes: N39.0 - Urinary tract infection, site not specified (3) Anemia: Qualified Codes: D64.9 - Anemia, unspecified Sesar Bobo MD, R2 Oct 10, 2017 22:34
[2017-10-10] MEDS ORDERED: ACETAMINOPHEN 325 MG TAB PO PRN (23:30)
[2017-10-10] MEDS ORDERED: DEXTROSE 50% IN WATER 50 ML VIAL(D50) IV PUSH PRN (23:30)
[2017-10-10] MEDS ORDERED: MAGNESIUM HYDROXIDE SUSP 30 ML CUP PO PRN (23:30)
[2017-10-10] MEDS ORDERED: LACTULOSE SYRUP 20 GM/30 ML CUP PO PRN (23:30)
[2017-10-10] MEDS ORDERED: GLUCAGON 1 MG/ML VIAL OTHER PRN (23:30)
[2017-10-10] MEDS ORDERED: NALOXONE HCL 0.4 MG/ML AMP IV PUSH PRN (23:30)
[2017-10-10] MEDS ORDERED: SODIUM CHLORIDE 0.9% FLUSH 10 ML FLUSH IV FLUSH PRN (23:30)
[2017-10-10] MEDS ORDERED: BISACODYL 10 MG SUPP RECTAL PRN (23:30)
[2017-10-10] MEDS ORDERED: SENNOSIDES 8.6 MG TAB PO PRN (23:30)
[2017-10-11] VITALS (16 sets, daily range): BP systolic 128–148; BP diastolic 66–83; PULSE 62–94; RESP 16–20; TEMP 97.3–101.6; O2SAT 93–97
[2017-10-11] MEDS ORDERED: PILL SPLITTER OTHER PRN (00:45)
[2017-10-11] MEDS ORDERED: PIPERACIL-TAZO 4.5 GM PREMIX 100 ML IV SCH (01:00)
[2017-10-11] MEDS: PIPERACIL-TAZO 4.5 GM PREMIX 100 ML IV SCH ×4 (03:10→20:59)
[2017-10-11 03:59] LABS: ALT (GPT) 11 U/L (10-53); ANION GAP 10 MEQ/L (5-15); AST (GOT) 15 U/L (15-37); BLOOD UREA NITROGEN 18 MG/DL (7-18); CHLORIDE 99 MEQ/L (98-107); GLOMERULAR FILTRATION RATE 48 ML/MIN (>89); POTASSIUM 4.7 MEQ/L (3.5-5.1); SODIUM (NA) 135 MEQ/L (136-145)
[2017-10-11 04:03] LABS: ALKALINE PHOSPHATASE 127 U/L (45-117); TOTAL BILIRUBIN ADULT 0.2 MG/DL (0.2-1.0)
[2017-10-11 06:57] LABS: AUTOMATED NEUTROPHIL # 11.8 TH/MM3 (1.8-7.7); BASOPHIL # 0.1 TH/MM3 (0-0.2); BASOPHIL % 0.4 % (0.0-2.0); EOSINOPHIL # 0.2 TH/MM3 (0-0.4); EOSINOPHIL % 1.1 % (0.0-4.0); HEMATOCRIT 25.8 % (35.0-46.0); HEMO FLAGS DIFF FINAL; LYMPH % 13.4 % (9.0-44.0); MEAN CORPUSCULAR HEMOGLOBIN 29.4 PG (27.0-34.0); MEAN CORPUSCULAR HGB CONC 33.4 % (32.0-36.0); MONO % 4.9 % (0.0-8.0); NEUT % 80.2 % (16.0-70.0); PLATELET COUNT 612 TH/MM3 (150-450); RED BLOOD COUNT 2.93 MIL/MM3 (4.00-5.30); RED CELL DISTRIBUTION WIDTH 13.8 % (11.6-17.2); WHITE BLOOD COUNT 14.7 TH/MM3 (4.0-11.0)
[2017-10-11] MEDS: GEMFIBROZIL 600 MG TAB PO SCH ×2 (07:00→15:36)
[2017-10-11] MEDS: FERROUS SULFATE 325 MG (65 MG ELEMENTAL IRON) TAB PO SCH ×2 (09:39→21:00)
[2017-10-11] MEDS: ASPIRIN EC 81 MG TABEC PO SCH (09:39)
[2017-10-11] MEDS: LISINOPRIL 20 MG TAB PO SCH (09:39)
[2017-10-11] MEDS: DOCUSATE SODIUM 50 MG/SENNA 8.6 MG TAB PO SCH ×2 (09:39→20:59)
[2017-10-11] MEDS: SODIUM CHLORIDE 0.9% FLUSH 10 ML FLUSH IV FLUSH SCH ×2 (09:40→20:59)
[2017-10-11] MEDS: INSULIN ASPART SUPPLEMENTAL SCALE SQ SCH ×4 (09:40→21:26)
--- NOTE | 2017-10-11 10:10 | HHI.FPPN ---
Subjective Remarks Mrs. Cohen was afebrile with stable vital signs overnight. Patient provided summary of her history, stating that she felt as if she couldn't breathe at rehabilitation facility/"couldn't catch breath", she was also coughing with clear sputum production. Patient noted temperature up to 103F at rehabilitation facility. patient's roommate was sick with a cough. Patient does not report other concerns such has difficulty with urination, bowel abnormalities, abdominal pain, back pain, or chest pain. Patient reports that she feels as if she is breathing better since being hospitalized and receiving diuresis. Patient reports her prior nephrostomy wound has healed without complication or persistent pain. (Austin Thompson MD, R3) Objective Vitals Vital Signs Date Time Temp Pulse Resp B/P (MAP) Pulse Ox O2 Delivery O2 Flow Rate FiO2 10/11/17 08:00 63 10/11/17 07:15 97.4 78 16 139/67 (91) 97 10/11/17 03:30 97.6 65 18 138/66 (90) 97 10/11/17 00:30 97.5 65 18 128/69 (88) 95 10/11/17 00:10 10/10/17 23:05 80 18 118/78 (91) 98 Nasal Cannula 3.00 10/10/17 22:07 98.7 10/10/17 21:52 81 18 106/55 (72) 95 Nasal Cannula 4.00 10/10/17 20:10 81 20 118/78 (91) 98 Nasal Cannula 5.00 10/10/17 19:47 81 22 130/60 (83) 100 Non-Rebreather 15.00 10/10/17 19:46 100 Non-Rebreather 15.00 10/10/17 19:46 100 Non-Rebreather 15.00 10/10/17 18:47 102 22 98 Non-Rebreather 15.00 10/10/17 18:47 99.3 102 22 161/74 (103) 98 Non-Rebreather 15.00 10/10/17 18:39 99.3 102 22 161/74 (103) 97 I/O 10/10/17 10/10/17 10/10/17 10/11/17 10/11/17 10/11/17 07:00 15:00 23:00 07:00 15:00 23:00 Intake Total 730 ml Output Total 100 ml Balance 630 ml Intake Oral 30 ml IV Total 700 ml Output Urine Total 100 ml # Voids 1 # Bowel Movements 1 (Austin Thompson MD, R3) Result Diagram: 10/11/17 0600 10/11/[address] Angiography 10/10/17 1936 Signed Impressions: Service Date/Time: Tuesday, October 10, 2017 20:59 - CONCLUSION: 1. No pulmonary loss. 2. Mild to moderate bilateral pleural effusions with accompanying areas of atelectasis or consolidation of the lower lobes. 3. Mosaic perfusion pattern seen throughout the lungs likely related to mild edema. Maycol Nance MD Chest X-Ray 10/10/17 1850 Signed Impressions: Service Date/Time: Tuesday, October 10, 2017 19:11 - CONCLUSION: Worsening diffuse process such as edema with bibasilar areas of consolidation or atelectasis. Some degree of pleural effusion cannot be excluded. Maycol Nance MD Objective Remarks GENERAL: no apparent distress. SKIN: No lesions. prior R nephrostomy incision appears well healed without erythema or drainage EYES: Pupils equal round and reactive. CARDIOVASCULAR: Regular rate and rhythm without murmurs. Normal peripheral perfusion RESPIRATORY: Decreased breath sounds overall. No wheezes or crackles appreciated to auscultation. GASTROINTESTINAL: Abdomen soft, non-tender, nondistended.No guarding. MUSCULOSKELETAL: 1+ edema bilateral lower extremities. NEUROLOGICAL: Awake and alert. Motor and sensory function grossly within normal limits. Normal speech. (Austin Thompson MD, R3) A/P Assessment and Plan 67-year-old female with history of diabetes and hypertension with recent hospitalization presents with shortness of breath. Found to have pleural effusions in lungs and leukocytosis. Will admit for workup. (Austin Thompson MD, R3) Attending Attestation Medical rounds were conducted with Dr Susan Thompson this morning, EMR reviewed, Patient interviewed and examined with resident, Agree to contents of this note, See Orders (French Salter MD) Problem List: (1) Sepsis ICD Codes: A41.9 - Sepsis, unspecified organism Status: Acute Plan: Patient meets SIRS criteria with tachycardia (HR 102) and tachypnea (RR) 22 on admission, WBC 22.4. Likely source of infection is suspected pulmonary etiology such as pneumonia; suspect that UTI is less likely due to lack of urinary symptoms, lack of back pain, and closure of nephrostomy tube site. Lactic acid 1.1. No signs of organ dysfunction. -Blood cultures pending -UA culture pending Continue empiric antibiotic therapy: -Zosyn 4.5g q6H -Azithromycin 500mg daily (2) Shortness of breath ICD Codes: R06.02 - Shortness of breath Status: Acute Plan: -Continue to monitor O2 saturations, RR, and provide O2 PRN -Will continue empiric treatment for HCAP: -Continue Zosyn -Continue Azithromycin for rehabilitation facility while awaiting legionella urinary antigen -Will hold Vancomycin at this time but will plan to start if concern for MRSA risk grows -Will repeat CXR (PA/LAT) -Will continue diuresis -S/P Lasix 60mg IV in ED -Will start Lasix 20mg PO daily along with 10mg KCl Patient with worsening shortness of breath for the last week, during hospitalization and worsening upon discharge. No history of lung disease. Fever at rehabilitation facility with reported Tmax 103F. Suspect possible pneumonia Chest x-ray: Worsening diffuse process such as edema with bibasilar areas of consolidation or atelectasis. CTA: Mild to moderate bilateral pleural effusions with a combination areas of atelectasis or consolidation of the lower lobes. As a perfusion pattern likely related to mild edema. Echocardiogram on 09/19/17 shows ejection fraction of 65%; BNP ~1000 on admission WBC 22.4, elevated from 10.7 two days ago. Given 60mg IV Lasix in ED Strep pneumo and Legionella urinary antigen pending Blood cultures pending Sputum cultures pending (3) Pneumonia ICD Codes: J18.9 - Pneumonia, unspecified organism Status: Acute Plan: Impression: Clinical concern for pneumonia due to shortness of breath/PE impression in association with reported T103 affect home; patient met SIRS criteria on admission -Continue management as above (4) Anemia ICD Codes: D64.9 - Anemia, unspecified Status: Acute Plan: Hemoglobin of 8.6 on admission. Up from 8.3 on discharge 2 days ago. Today's show anemia chronic disease on admission. -Continue oral iron therapy trial (5) Hypertension Status: Chronic Plan: Blood pressure 161/74 arrival. Trend down to within normal limits. -Continue home Norvasc and lisinopril. (6) Abnormal urinalysis ICD Codes: R82.90 - Unspecified abnormal findings in urine Plan: Impression: UA shows moderate leukocyte esterase, 33 WBC, occasional bacteria. -Zosyn to cover for possible UTI -Urine culture pending (7) Diabetes mellitus ICD Codes: E11.9 - Type 2 diabetes mellitus without complications Status: Chronic Plan: Patient on home Levemir and sliding scale Hemoglobin A1c 12.2 on last admission -Regular accuchecks -Continue home Levemir -Low dose sliding scale novolog (8) Dyslipidemia ICD Codes: E78.5 - Dyslipidemia Status: Chronic Plan: Continue home pravastatin (9) FEN Status: Acute Plan: Fluids: tolerating PO, cautious while pt fluid overloaded Electrolytes: wnl, continue to monitor Nutrition: diabetic diet DVT ppx: Heparin 5000u q12H (Austin Thompson MD, R3) Problem Qualifiers (1) Sepsis: Qualified Codes: A41.9 - Sepsis, unspecified organism (2) Pneumonia: Qualified Codes: J18.9 - Pneumonia, unspecified organism (3) Anemia: Qualified Codes: D64.9 - Anemia, unspecified Austin Thompson MD, R3 Oct 11, 2017 10:10 French Salter MD Oct 14, 2017 13:49
[2017-10-11] MEDS ORDERED: FUROSEMIDE 20 MG TAB PO SCH (10:15)
--- NOTE | 2017-10-11 12:09 | RADRPT ---
EXAM DATE/TIME: 10/11/2017 11:49 [facility] COMPARISON: CHEST SINGLE AP, October 10, 2017, 19:11. CHEST PA & LAT, December 12, 2009, 20:33. INDICATIONS : Short of breath MEDICAL HISTORY : Hypertension. Diabetes SURGICAL HISTORY : section. Coronary artery stent. ENCOUNTER: Subsequent ACUITY: 2 weeks PAIN SCORE: 0/10 LOCATION: chest FINDINGS: PA and lateral views of the chest demonstrate cardiomegaly with small pleural effusions and interstit ial edema. The cardiomediastinal contours are unremarkable. Osseous structures are intact. CONCLUSION: Cardiomegaly with interstitial edema and small pleural effusions. Mild CHF and significantly improved from previous study. Carlos Triplett MD on October 11, 2017 at 12:07 Board Certified Radiologist. This report was verified electronically.
[2017-10-11] MEDS: ONDANSETRON HCL 4 MG/2 ML VIAL IVP PRN ×2 (12:21→23:07)
--- NOTE | 2017-10-11 14:11 | EKG ---
Date Performed: 10/10/2017 Time Performed: 23:45:20 PTAGE: 67 years EKG: Sinus rhythm SEPTAL MYOCARDIAL INFARCTION ABNORMAL ECG PREVIOUS TRACING : 10/10/2017 19.27 DOCTOR: Jack Riley Interpretating Date/Time 10/11/2017 14:06:03
--- NOTE | 2017-10-11 14:18 | EKG ---
Date Performed: 10/10/2017 Time Performed: 19:27:24 PTAGE: 67 years EKG: Sinus rhythm SEPTAL MYOCARDIAL INFARCTION ABNORMAL ECG PREVIOUS TRACING : 09/21/2017 10.22 Compared to prior tracing no significant change DOCTOR: Jack Riley Interpretating Date/Time 10/11/2017 14:12:24
[2017-10-11] MEDS: AZITHROMYCIN 250 MG TAB PO SCH (18:56)
[2017-10-11] MEDS: PRAVASTATIN SOD 40 MG TAB PO SCH (20:59)
[2017-10-11] MEDS: LACTOBACILLUS ACIDOPHILUS TAB PO SCH (20:59)
[2017-10-11] MEDS: FUROSEMIDE 20 MG TAB PO SCH (21:00)
[2017-10-11] MEDS: INSULIN DETEMIR 100 UNITS/ML VIAL SQ SCH (21:00)
[2017-10-11] MEDS: HEPARIN SODIUM - SQ 10,000 UNITS/ML VIAL SQ SCH (23:06)
[2017-10-12] VITALS (10 sets, daily range): BP systolic 126–160; BP diastolic 63–82; PULSE 68–84; RESP 16–20; TEMP 97.7–99.9; O2SAT 95–97
[2017-10-12] MEDS: PIPERACIL-TAZO 4.5 GM PREMIX 100 ML IV SCH ×3 (03:20→14:33)
[2017-10-12] MEDS: GEMFIBROZIL 600 MG TAB PO SCH ×2 (05:26→17:04)
[2017-10-12] MEDS: INSULIN ASPART SUPPLEMENTAL SCALE SQ SCH ×4 (08:00→21:00)
[2017-10-12] MEDS ORDERED: POTASSIUM CHLORIDE 10 MEQ CONTROLLED RELEASE TAB PO SCH (09:00)
[2017-10-12] MEDS: FERROUS SULFATE 325 MG (65 MG ELEMENTAL IRON) TAB PO SCH ×2 (09:26→22:12)
[2017-10-12] MEDS: LACTOBACILLUS ACIDOPHILUS TAB PO SCH ×2 (09:26→22:12)
[2017-10-12] MEDS: DOCUSATE SODIUM 50 MG/SENNA 8.6 MG TAB PO SCH ×2 (09:26→21:00)
[2017-10-12] MEDS: FUROSEMIDE 20 MG TAB PO SCH (09:26)
[2017-10-12] MEDS: ASPIRIN EC 81 MG TABEC PO SCH (09:26)
[2017-10-12] MEDS: POTASSIUM CHLORIDE 20 MEQ CONTROLLED RELEASE TAB PO SCH (09:27)
[2017-10-12] MEDS: LISINOPRIL 20 MG TAB PO SCH (09:27)
[2017-10-12] MEDS: SODIUM CHLORIDE 0.9% FLUSH 10 ML FLUSH IV FLUSH SCH ×2 (09:28→22:15)
[2017-10-12] MEDS ORDERED: PNEUMOCOCCAL POLYVALENT INJ 25 MCG/0.5 ML SYR IM ONE (10:00)
[2017-10-12 10:07] LABS: AUTOMATED NEUTROPHIL # 7.8 TH/MM3 (1.8-7.7); BASOPHIL # 0.1 TH/MM3 (0-0.2); BASOPHIL % 0.9 % (0.0-2.0); EOSINOPHIL # 0.5 TH/MM3 (0-0.4); EOSINOPHIL % 3.8 % (0.0-4.0); HEMATOCRIT 24.4 % (35.0-46.0); HEMO FLAGS DIFF FINAL; LYMPH % 21.1 % (9.0-44.0); LYMPHOCYTE # 2.6 TH/MM3 (1.0-4.8); MEAN CELL VOLUME 86.9 FL (80.0-100.0); MEAN CORPUSCULAR HGB CONC 32.2 % (32.0-36.0); MONO % 10.7 % (0.0-8.0); NEUT % 63.5 % (16.0-70.0); PLATELET COUNT 631 TH/MM3 (150-450); RED BLOOD COUNT 2.81 MIL/MM3 (4.00-5.30); RED CELL DISTRIBUTION WIDTH 14.3 % (11.6-17.2); WHITE BLOOD COUNT 12.2 TH/MM3 (4.0-11.0)
[2017-10-12 10:37] LABS: BICARBONATE 27.8 MEQ/L (21.0-32.0); POTASSIUM 3.9 MEQ/L (3.5-5.1)
--- NOTE | 2017-10-12 11:09 | HHI.FPPN ---
Subjective Remarks Mrs. Cohen was febrile to 101.6F with stable vital signs overnight. Patient feels that she is having some back pain and cough but is otherwise doing well. Patient reports that her cough is productive of phlegm, and she sometimes vomits due to cough but denies vomiting food. Patient's back pain is not severe but is worse with coughing. Patient reports improvement in breathing overall/less shortness of breath. No chest pain or abdominal pain. Normal urination and bowel movements; no pain with urination. (Austin Thompson MD, R3) Objective Vitals Vital Signs Date Time Temp Pulse Resp B/P (MAP) Pulse Ox O2 Delivery O2 Flow Rate FiO2 10/12/17 08:06 97.8 70 18 137/68 (91) 97 10/12/17 04:00 97.7 71 18 132/82 (99) 97 10/12/17 00:30 98.7 10/12/17 00:11 78 10/12/17 00:00 99.9 72 18 126/66 (86) 96 10/11/17 22:50 Nasal Cannula 3.00 10/11/17 22:00 76 10/11/17 21:00 82 10/11/17 20:00 74 10/11/17 20:00 101.6 91 20 148/70 (96) 97 10/11/17 19:00 93 Nasal Cannula 3.00 10/11/17 19:00 82 10/11/17 19:00 99.2 85 18 143/79 (100) 93 10/11/17 18:59 78 10/11/17 16:00 74 10/11/17 15:00 3.00 10/11/17 15:00 98.9 76 18 148/77 (100) 93 10/11/17 15:00 77 10/11/17 14:00 71 10/11/17 13:00 70 10/11/17 12:00 3.00 10/11/17 12:00 94 I/O 10/11/17 10/11/17 10/11/17 10/12/17 10/12/17 10/12/17 07:00 15:00 23:00 07:00 15:00 23:00 Intake Total 480 ml 440 ml Output Total 500 ml 300 ml Balance -20 ml 140 ml Intake Oral 480 ml 240 ml IV Total 200 ml Output Urine Total 500 ml 300 ml Stool Total 0 ml # Bowel Movements 0 (Austin Thompson MD, R3) Result Diagram: 10/12/17 0938 10/12/17 0938 Imaging Last Impressions Chest X-Ray 10/11/17 0000 Signed Impressions: Service Date/Time: Wednesday, October 11, 2017 11:49 - CONCLUSION: Cardiomegaly with interstitial edema and small pleural effusions. Mild CHF and significantly improved from previous study. Carlos Triplett MD CT Angiography 10/10/17 1936 Signed Impressions: Service Date/Time: Tuesday, October 10, 2017 20:59 - CONCLUSION: 1. No pulmonary loss. 2. Mild to moderate bilateral pleural effusions with accompanying areas of atelectasis or consolidation of the lower lobes. 3. Mosaic perfusion pattern seen throughout the lungs likely related to mild edema. Maycol Nance MD Objective Remarks GENERAL: no apparent distress. SKIN: No lesions. prior R nephrostomy incision appears well healed without erythema or drainage EYES: Pupils equal round and reactive. EOM grossly intact CARDIOVASCULAR: Regular rate and rhythm without murmurs. Normal peripheral perfusion RESPIRATORY: Decreased breath sounds overall. Mild R lung crackling to auscultation Back: No CVA tenderness GASTROINTESTINAL: Abdomen soft, non-tender, nondistended.No guarding. MUSCULOSKELETAL: 1+ edema bilateral lower extremities. NEUROLOGICAL: Awake and alert. Motor and sensory function grossly within normal limits. Normal speech. (Austin Thompson MD, R3) A/P Assessment and Plan 67-year-old female with history of diabetes and hypertension with recent hospitalization for pyelonephritis/renal abscess presents with shortness of breath: (Austin Thompson MD, R3) Attending Attestation EMR reviewed Patients hospital course discussed in detail with Dr Thompson Patient seen and examined Agree with contents of this note See Orders Daughter Mariya involved with decision making (French Salter MD) Problem List: (1) Sepsis ICD Codes: A41.9 - Sepsis, unspecified organism Status: Acute Plan: 10/12: WBC count 12.2 <- 14.7 (10/11). Stable VS with resolution of tachycardia and tachypnea Continue empiric antibiotic therapy: -Zosyn 4.5g q6H -Azithromycin 500mg daily Patient meets SIRS criteria with tachycardia (HR 102) and tachypnea (RR) 22 on admission, WBC 22.4. Likely source of infection is suspected pulmonary etiology such as pneumonia; suspect that UTI is less likely due to lack of urinary symptoms, lack of back pain, and closure of nephrostomy tube site. Lactic acid 1.1. No signs of organ dysfunction. -Blood cultures negative x2 days -Urine culture pending: Group D enterococcus -susceptibility tomorrow (2) Shortness of breath ICD Codes: R06.02 - Shortness of breath Status: Acute Plan: -Continue to monitor O2 saturations, RR, and provide O2 PRN -Will continue diuresis -S/P Lasix 60mg IV in ED -Continue Lasix 20mg PO BID along with 20mg KCl -Will continue empiric treatment for possible HCAP: -Continue Zosyn -Continue Azithromycin for rehabilitation facility while awaiting legionella urinary antigen -Will hold Vancomycin at this time but will plan to start if concern for MRSA risk grows Patient with worsening shortness of breath for the last week, during hospitalization and worsening upon discharge. No history of lung disease. Fever at rehabilitation facility with reported Tmax 103F. Suspect possible pneumonia Chest x-ray: Cardiomegaly with interstitial edema and small pleural effusions. Mild CHF; significantly improved CTA: Mild to moderate bilateral pleural effusions with a combination areas of atelectasis or consolidation of the lower lobes. As a perfusion pattern likely related to mild edema. Echocardiogram on 09/19/17 shows ejection fraction of 65%; BNP ~1000 on admission Strep pneumo and Legionella urinary antigen pending Blood cultures negative x2 days Sputum cultures pending (3) Pneumonia ICD Codes: J18.9 - Pneumonia, unspecified organism Status: Acute Plan: Impression: Clinical concern for pneumonia due to shortness of breath/PE impression in association with reported T103 affect home; patient met SIRS criteria on admission -Continue management as above (4) UTI (urinary tract infection) ICD Codes: N39.0 - Urinary tract infection, site not specified Status: Acute Plan: Impression: UA shows moderate leukocyte esterase, 33 WBC, occasional bacteria. Urine culture initially with group D enterococcus >100,000K units -Zosyn to cover for possible UTI -Will check renal US (5) DELLA (acute kidney injury) ICD Codes: N17.9 - Acute kidney failure, unspecified Status: Acute Plan: Impression: Cr 1.124 on admission -> 2.56 today (10/12). Patient has been receiving lasix diuresis in response to suspected fluid overload -Will check urine eosinophils -Will check renal US -Will hold Lisinopril -Will attempt to avoid contrast agents -Will hold Lasix and consider restarting at 20 mg daily assuming Cr stable (6) Anemia ICD Codes: D64.9 - Anemia, unspecified Status: Acute Plan: Impression: Hemoglobin of 8.6 on admission-> 8 10/12; stable since last hospitalization. Suspect secondary to anemia of chronic disease -Continue oral iron therapy (7) Hypertension Status: Chronic Plan: Blood pressure 161/74 arrival. Intermittent HTN since admission -Continue home Norvasc and lisinopril. (8) Diabetes mellitus ICD Codes: E11.9 - Type 2 diabetes mellitus without complications Status: Chronic Plan: Patient on home Levemir and sliding scale Hemoglobin A1c 12.2 on last admission -Regular accuchecks -Continue home Levemir -Low dose sliding scale novolog (9) Dyslipidemia ICD Codes: E78.5 - Dyslipidemia Status: Chronic Plan: Continue home pravastatin (10) FEN Status: Acute Plan: Fluids: tolerating PO, cautious while pt fluid overloaded Electrolytes: wnl, continue to monitor Nutrition: diabetic diet DVT ppx: Heparin 5000u q12H (Austin Thompson MD, R3) Problem Qualifiers (1) Sepsis: Qualified Codes: A41.9 - Sepsis, unspecified organism (2) Pneumonia: Qualified Codes: J18.9 - Pneumonia, unspecified organism (3) Anemia: Qualified Codes: D64.9 - Anemia, unspecified Austin Thompson MD, R3 Oct 12, 2017 11:09 French Salter MD Oct 14, 2017 14:03
[2017-10-12] MEDS: HEPARIN SODIUM - SQ 10,000 UNITS/ML VIAL SQ SCH (13:29)
[2017-10-12] MEDS ORDERED: hydrALAZINE HCL 10 MG TAB PO PRN (14:00)
--- NOTE | 2017-10-12 16:20 | RADRPT ---
EXAM DATE/TIME: 10/12/2017 15:05 [facility] COMPARISON: CT ABDOMEN & PELVIS W/O CONTRAST, September 20, 2017, 9:03. CT ABDOMEN & PELVIS W/O CONTRAST, September 24, 2017, 11:24. CT ABDOMEN & PELVIS W/O CONTRAST, October 05, 2017, 10:11. CT PULMONARY ANGIOGRAM , October 10, 2017, 20:59. INDICATIONS : Abnormal lab values. Recent perinephric abscess with drain. MEDICAL HISTORY : Hypercholesterolemia. MRSA. Diabetes. SURGICAL HISTORY : section. Renal stent. Abscess drain, right kidney. ENCOUNTER: Initial ACUITY: 1 day PAIN SCORE: 0/10 LOCATION: Bilateral flank MEASUREMENTS: RIGHT KIDNEY: 13.8 x 7.1 x 6.9 cm LEFT KIDNEY: 10.8 x 6.7 x 5.5 cm FINDINGS: RIGHT KIDNEY: Extensive shadowing totally obscures the mid to lower pole. The shadowing is relating to air within t he kidney or directly adjacent to the kidney when correlated to the prior CT. The visualized upper po le is unremarkable. No hydronephrosis involving the upper pole. No fluid surrounding the upper pole o f the kidney. The renal pelvis and lower pole are completely obscured. LEFT KIDNEY: Renal cortex is normal in thickness and echotexture. No hydronephrosis, stone, or mass. BLADDER: Within normal limits given the degree of distension. CONCLUSION: 1. Total obscuration of the mid and lower pole of the right kidney secondary to air either within the kidney itself or directly adjacent to the kidney. No abscess seen involving the upper pole. 2. Left kidney is unremarkable. Corey Millan Jr., MD on October 12, 2017 at 16:11 Board Certified Radiologist. This report was verified electronically.
[2017-10-12] MEDS: AZITHROMYCIN 250 MG TAB PO SCH (17:04)
[2017-10-12] MEDS: PRAVASTATIN SOD 40 MG TAB PO SCH (22:11)
[2017-10-12] MEDS: LABETALOL HCL 100 MG TAB PO SCH (22:11)
[2017-10-12] MEDS: INSULIN DETEMIR 100 UNITS/ML VIAL SQ SCH (22:16)
[2017-10-12] MEDS: PIPERACIL-TAZO 2.25 GM PREMIX 50 ML IV SCH (23:15)
[2017-10-13] VITALS (9 sets, daily range): BP systolic 102–154; BP diastolic 54–67; PULSE 63–87; RESP 16–20; TEMP 98–99.9; O2SAT 95–98
[2017-10-13] MEDS: HEPARIN SODIUM - SQ 10,000 UNITS/ML VIAL SQ SCH ×3 (01:02→22:49)
[2017-10-13] MEDS: PIPERACIL-TAZO 2.25 GM PREMIX 50 ML IV SCH ×4 (03:00→22:17)
[2017-10-13] MEDS: ONDANSETRON HCL 4 MG/2 ML VIAL IVP PRN (06:15)
[2017-10-13] MEDS: GEMFIBROZIL 600 MG TAB PO SCH ×2 (06:19→16:00)
[2017-10-13] MEDS: INSULIN ASPART SUPPLEMENTAL SCALE SQ SCH ×4 (08:00→22:19)
[2017-10-13] MEDS: LABETALOL HCL 100 MG TAB PO SCH ×2 (08:16→22:18)
[2017-10-13] MEDS: LACTOBACILLUS ACIDOPHILUS TAB PO SCH ×2 (08:16→22:20)
[2017-10-13] MEDS: ASPIRIN EC 81 MG TABEC PO SCH (08:17)
[2017-10-13] MEDS: FERROUS SULFATE 325 MG (65 MG ELEMENTAL IRON) TAB PO SCH (08:17)
[2017-10-13] MEDS: POTASSIUM CHLORIDE 20 MEQ CONTROLLED RELEASE TAB PO SCH (08:17)
[2017-10-13] MEDS: DOCUSATE SODIUM 50 MG/SENNA 8.6 MG TAB PO SCH ×2 (08:17→21:00)
[2017-10-13] MEDS: SODIUM CHLORIDE 0.9% FLUSH 10 ML FLUSH IV FLUSH SCH ×2 (08:18→22:17)
[2017-10-13] MEDS ORDERED: FUROSEMIDE 20 MG TAB PO SCH (09:00)
--- NOTE | 2017-10-13 10:51 | RADRPT ---
EXAM DATE/TIME: 10/13/2017 09:53 [facility] COMPARISON: CT ABSCESS DRAINAGE BRUNO/RETRO, September 27, 2017, 15:35. CT ABDOMEN & PELVIS W/O CONTRAST, October 05, 2017, 10:11. INDICATIONS : Right flank pain. ORAL CONTRAST: No oral contrast ingested. RADIATION DOSE: 20.92 CTDIvol (mGy) MEDICAL HISTORY : Renal calculi. Diabetes mellitus type 2. SURGICAL HISTORY : Right renal stent. ENCOUNTER: Subsequent ACUITY: 2 weeks PAIN SCALE: 7/10 LOCATION: Right flank TECHNIQUE: Volumetric scanning of the abdomen and pelvis was performed. Using automated exposure control and ad justment of the mA and/or kV according to patient size, radiation dose was kept as low as reasonably achievable to obtain optimal diagnostic quality images. DICOM format image data is available electro nically for review and comparison. FINDINGS: LOWER LUNGS: Small to moderate-sized bilateral pleural effusions with adjacent compressive atelectasis are again n oted and stable. LIVER: Liver is mildly enlarged. Homogeneous density without lesion. There is no dilation of the biliary tr ee. No calcified gallstones. SPLEEN: Normal size without lesion. PANCREAS: Within normal limits. KIDNEYS: The previously noted right perinephric drain has been removed. There has been interval development of small perinephric fluid collection status post drain removal. Perfusion defects are noted within bot h kidneys suggesting bilateral pyelonephritis (right much worse than left). 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 Right interna l ureteral stent appears to be adequate in position. ADRENAL GLANDS: Within normal limits. VASCULAR: There is no aortic aneurysm. BOWEL/MESENTERY: The stomach, small bowel, and colon demonstrate no acute abnormality. There is no free intraperitone al air or fluid. ABDOMINAL WALL: Within normal limits. RETROPERITONEUM: There is no lymphadenopathy. BLADDER: No wall thickening or mass. REPRODUCTIVE: Within normal limits. INGUINAL: There is no lymphadenopathy or hernia. MUSCULOSKELETAL: Within normal limits for patient age. CONCLUSION: 1. Previously noted right perinephric drain has been removed. There has been interval development of small perinephric fluid collection status post drain removal. Perfusion defects are noted within both kidneys suggesting bilateral pyelonephritis (right much worse than left). 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 2. Anasarca is noted. 3. Stable mild to moderate-sized bilateral pleural effusions with adjacent compressive atelectasis. Daniel Portillo MD on October 13, 2017 at 10:40 Board Certified Radiologist. This report was verified electronically.
--- NOTE | 2017-10-13 11:08 | HHI.FPPN ---
Subjective Remarks Mrs. Cohen was afebrile with stable vital signs overnight. Patient reports increased weakness this morning; patient feels worse than yesterday. Patient continues to cough but has not been expectorating sputum. Patient continues to urinate. Patient has mildly increased R back pain. (Austin Thompson MD, R3) Objective Vitals Vital Signs Date Time Temp Pulse Resp B/P (MAP) Pulse Ox O2 Delivery O2 Flow Rate FiO2 10/13/17 08:55 71 10/13/17 08:00 96 Nasal Cannula 2.00 10/13/17 07:45 98.4 75 16 144/65 (91) 97 10/13/17 06:34 10/13/17 04:00 99.8 77 20 149/60 (89) 96 10/13/17 00:00 99.9 75 20 133/60 (84) 95 10/12/17 22:09 96 Nasal Cannula 2.00 10/12/17 20:00 72 10/12/17 20:00 99.5 76 16 135/63 (87) 96 10/12/17 20:00 Nasal Cannula 2.00 10/12/17 16:27 99.0 84 20 158/72 (100) 95 10/12/17 12:11 98.0 81 20 160/73 (102) 95 I/O 10/12/17 10/12/17 10/12/17 10/13/17 10/13/17 10/13/17 07:00 15:00 23:00 07:00 15:00 23:00 Intake Total 440 ml 600 ml 220 ml Output Total 300 ml 280 ml Balance 140 ml 600 ml -60 ml Intake Oral 240 ml 600 ml 220 ml IV Total 200 ml Output Urine Total 300 ml 280 ml # Voids 2 # Bowel Movements 0 1 1 (Austin Thompson MD, R3) Result Diagram: 10/12/17 0938 10/12/17 0938 Imaging Last Impressions Abdomen/Pelvis CT 10/13/17 0000 Signed Impressions: Service Date/Time: September 09:53 - CONCLUSION: 1. Previously noted right perinephric drain has been removed. There has been interval development of small perinephric fluid collection status post drain removal. Perfusion defects are noted within both kidneys suggesting bilateral pyelonephritis (right much worse than left). 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 2. Anasarca is noted. 3. Stable mild to moderate-sized bilateral pleural effusions with adjacent compressive atelectasis. Daniel Portillo MD Renal Ultrasound 10/12/17 0000 Signed Impressions: Service Date/Time: Thursday, October 12, 2017 15:05 - CONCLUSION: 1. Total obscuration of the mid and lower pole of the right kidney secondary to air either within the kidney itself or directly adjacent to the kidney. No abscess seen involving the upper pole. 2. Left kidney is unremarkable. Corey Millan Jr., MD Chest X-Ray 10/11/17 0000 Signed Impressions: Service Date/Time: Wednesday, October 11, 2017 11:49 - CONCLUSION: Cardiomegaly with interstitial edema and small pleural effusions. Mild CHF and significantly improved from previous study. Carlos Triplett MD CT Angiography 10/10/17 1936 Signed Impressions: Service Date/Time: Tuesday, October 10, 2017 20:59 - CONCLUSION: 1. No pulmonary loss. 2. Mild to moderate bilateral pleural effusions with accompanying areas of atelectasis or consolidation of the lower lobes. 3. Mosaic perfusion pattern seen throughout the lungs likely related to mild edema. Maycol Nance MD Objective Remarks GENERAL: no apparent distress. SKIN: No lesions. EYES: Pupils equal round and reactive. EOM grossly intact CARDIOVASCULAR: Regular rate and rhythm without murmurs. Normal peripheral perfusion RESPIRATORY: Decreased breath sounds overall. Mild R lung crackling to auscultation GASTROINTESTINAL: Abdomen soft, non-tender, nondistended.No guarding. MUSCULOSKELETAL: 1+ edema bilateral lower extremities. NEUROLOGICAL: Awake and alert. Motor and sensory function grossly within normal limits. Normal speech. (Austin Thompson MD, R3) A/P Assessment and Plan 67-year-old female with history of diabetes and hypertension with recent hospitalization for pyelonephritis/renal abscess presents with shortness of breath: (Austin Thompson MD, R3) Attending Attestation Patient seen and examined. Case reviewed and discussed with the resident team( DR Thompson). Agree with plan of care as discussed with me and documented in the resident note. Patient nauseated will hold iron to see if improves (French Salter MD) Problem List: (1) Sepsis ICD Codes: A41.9 - Sepsis, unspecified organism Status: Acute Plan: 10/12: WBC count 12.2 <- 14.7 (10/11). Stable VS with resolution of tachycardia and tachypnea Continue empiric antibiotic therapy: -Zosyn 4.5g q6H -Azithromycin 500mg daily Patient meets SIRS criteria with tachycardia (HR 102) and tachypnea (RR) 22 on admission, WBC 22.4. Likely source of infection is suspected pulmonary etiology such as pneumonia; suspect that UTI is less likely due to lack of urinary symptoms, lack of back pain, and closure of nephrostomy tube site. Lactic acid 1.1. No signs of organ dysfunction. -Blood cultures negative x2 days -Urine culture pending: Group D enterococcus -susceptibility tomorrow (2) Pyelonephritis ICD Codes: N12 - Pyelonephritis Status: Acute Plan: Impression: UA shows moderate leukocyte esterase, 33 WBC, occasional bacteria. Recent emphysematous pyelonephritis (ureteral stent placed; R nephrostomy tube placed 09/27 and subsequently removed 10/05/2017) Urine culture initially with group D enterococcus >100,000K units Renal US- total obscuration of mid/lower pole of R kidney secondary to air w/in kidney or adjacent to kidney CT A/P- prior nephritic drain removed; interval development of small perinephric fluid collection s/p drain removal. Perfusion defects w/in both kidneys suggesting bilateral pyelonephritis (R much worse than L). Persistent air w/in the R collecting system indicating emphysematous R pyelonephritis. Anasarca noted; stable mild/moderate bilateral pleural effusions with adjacent compressive atelectasis Urine culture- enterococcus; susceptibilities pending -Continue Zosyn while awaiting susceptibilities -Urology consulted: -Continue IV antibiotics; consider ID consult -IV hydration -No surgical intervention needed at this time (3) Shortness of breath ICD Codes: R06.02 - Shortness of breath Status: Acute Plan: -Continue to monitor O2 saturations, RR, and provide O2 PRN -Continue incentive spirometry -Will continue diuresis -S/P Lasix 60mg IV in ED -Continue Lasix 20mg PO daily with 20mg KCl (decreased due to DELLA) -Will continue empiric treatment for possible HCAP: -Continue Zosyn -Continue Azithromycin for rehabilitation facility -Consult Cardiology -Pulmonary etiologies of SOB work-up recommended due to recent reassuring echo -Will discuss PFO closure in the future -Consult Pulmonology Patient with worsening shortness of breath for the last week, during hospitalization and worsening upon discharge. No history of lung disease. Fever at rehabilitation facility with reported Tmax 103F. Suspect possible pneumonia Chest x-ray: Cardiomegaly with interstitial edema and small pleural effusions. Mild CHF; significantly improved CTA: Mild to moderate bilateral pleural effusions with a combination areas of atelectasis or consolidation of the lower lobes. As a perfusion pattern likely related to mild edema. Echocardiogram on 09/19/17 shows ejection fraction of 65%; BNP ~1000 on admission Strep pneumo and Legionella urinary antigen negative Blood cultures negative x3 days Sputum cultures pending (4) DELLA (acute kidney injury) ICD Codes: N17.9 - Acute kidney failure, unspecified Status: Acute Plan: Impression: Cr 1.124 on admission -> 2.56(10/12)-> 3.79 (10/13). Patient has been receiving lasix diuresis in response to suspected fluid overload Urine eosinophils 2-5 Renal US with air in/around R kidney -Will hold Lisinopril -Will decrease Lasix to 20mg daily -Will attempt to avoid contrast agents -Will consult Nephrology (5) Anemia ICD Codes: D64.9 - Anemia, unspecified Status: Acute Plan: Impression: Hemoglobin of 8.6 on admission-> 8 (10/12) -> 7.4 (10/13); stable since last hospitalization. Suspect secondary to anemia of chronic disease -Continue oral iron therapy -Will plan to transfuse if Hgb <7 (6) Hypertension Status: Chronic Plan: Blood pressure 161/74 arrival. Intermittent HTN since admission -Continue home Norvasc and lisinopril (7) Diabetes mellitus ICD Codes: E11.9 - Type 2 diabetes mellitus without complications Status: Chronic Plan: Patient on home Levemir and sliding scale Hemoglobin A1c 12.2 on last admission -Regular accuchecks -Continue home Levemir -Low dose sliding scale novolog (8) Dyslipidemia ICD Codes: E78.5 - Dyslipidemia Status: Chronic Plan: Continue home pravastatin (9) FEN Status: Acute Plan: Fluids: tolerating PO, cautious while pt fluid overloaded Electrolytes: wnl, continue to monitor Nutrition: diabetic diet DVT ppx: Heparin 5000u q12H (Austin Thompson MD, R3) Problem Qualifiers (1) Sepsis: Qualified Codes: A41.9 - Sepsis, unspecified organism (2) Anemia: Qualified Codes: D64.9 - Anemia, unspecified Austin Thompson MD, R3 Oct 13, 2017 11:08 French Salter MD Oct 14, 2017 14:12
[2017-10-13 11:27] LABS: AUTOMATED NEUTROPHIL # 9.5 TH/MM3 (1.8-7.7); BASOPHIL # 0.1 TH/MM3 (0-0.2); BASOPHIL % 0.8 % (0.0-2.0); EOSINOPHIL # 0.2 TH/MM3 (0-0.4); EOSINOPHIL % 1.6 % (0.0-4.0); HEMATOCRIT 22.7 % (35.0-46.0); HEMO FLAGS DIFF FINAL; LYMPH % 15.1 % (9.0-44.0); LYMPHOCYTE # 1.9 TH/MM3 (1.0-4.8); MEAN CELL VOLUME 86.5 FL (80.0-100.0); MEAN CORPUSCULAR HEMOGLOBIN 28.2 PG (27.0-34.0); MEAN CORPUSCULAR HGB CONC 32.6 % (32.0-36.0); MONO % 6.5 % (0.0-8.0); PLATELET COUNT 614 TH/MM3 (150-450); RED BLOOD COUNT 2.63 MIL/MM3 (4.00-5.30); RED CELL DISTRIBUTION WIDTH 14.3 % (11.6-17.2); WHITE BLOOD COUNT 12.5 TH/MM3 (4.0-11.0)
[2017-10-13] MEDS: FUROSEMIDE 20 MG/2 ML VIAL IV PUSH SCH (11:30)
[2017-10-13 11:54] LABS: BICARBONATE 23.5 MEQ/L (21.0-32.0); POTASSIUM 4.9 MEQ/L (3.5-5.1)
--- NOTE | 2017-10-13 15:36 | PD.CONS ---
HPI Service Cardiology Consult Requested By Dr. Thompson Primary Care Physician Susanna Mcbride MD History of Present Illness 67-year-old female with past mental history of DM, HTN, and recent hospitalization for pyelonephritis and CVA who presented for shortness of breath. The patient was recently discharged to rehabilitation. She has been having some shortness of breath so she presented back to the hospital. So far during hospitalization she states her shortness of breath has improved. Currently she is only getting short of breath whenever she is in pain. She had some swelling in her legs which she states is improved during hospitalization. She denies any chest pain. She did have a TERRELL on previous admission which showed normal EF, PFO, mild pulmonary hypertension. Chest imaging during this admission has shown some bibasilar edema and effusion. (Jack Cardenas) Review of Systems Consitutional: COMPLAINS OF: Chills Respiratory: COMPLAINS OF: Shortness of breath Cardiovascular: DENIES: Chest pain Otherwise negative except as stated in the history of present illness (Jack Cardenas) Past Family Social History Allergies: Coded Allergies: metformin (Unverified Allergy, Severe, Numbness, 10/10/17) clonidine (Unverified Allergy, Unknown, 10/10/17) Past Medical History DM HTN HLD PFO emphysematous pyelonephritis/perinephrinic abscess Stroke Past Surgical History C section (1990) Reported Medications Reported Meds & Active Scripts Active Pravachol (Pravastatin) 40 Mg Tab 40 Mg PO HS Levemir Inj (Insulin Detemir) 1,000 unit/ 10 ML Vial 10 Units SQ HS Do not mix with any other Insulin. Novolog Inj (Insulin Aspart) 100 Unit/Ml Inj 100 Unit SQ ACHS SLIDING SCALE Oxycodone (Oxycodone HCl) 10 Mg Tab 10 Mg PO Q4H PRN Ferosul (Ferrous Sulfate) 325 Mg (65 Mg Iron) Tablet 325 Mg PO BID Levaquin (Levofloxacin) 750 Mg Tablet 750 Mg PO DAILY 28 Days Lisinopril 40 Mg Tab 40 Mg PO DAILY Amlodipine (Amlodipine Besylate) 10 Mg Tab 10 Mg PO DAILY Gemfibrozil 600 Mg Tab 300 Mg PO BIDAC Take 30 minutes prior to breakfast and dinner. Reported Aspirin DR (Aspirin) 81 Mg Tabdr 81 Mg PO DAILY Active Ordered Medications Current Medications Medications (Trade) Dose Ordered Sig/Alisha Route Start Time Stop Time Status Last Admin (NS Flush) 2 ml UNSCH PRN IV FLUSH 10/10/17 23:30 (NS Flush) 2 ml BID IV FLUSH 10/11/17 09:00 10/13/17 08:18 (Tylenol) 650 mg Q4H PRN PO 10/10/17 23:30 10/11/17 23:07 (Zofran Inj) 4 mg Q6H PRN IVP 10/10/17 23:30 10/13/17 06:15 (Heparin Inj) 5,000 units Q12H SQ 10/12/17 00:00 10/13/17 12:00 (Narcan Inj) 0.4 mg UNSCH PRN IV PUSH 10/10/17 23:30 (Bridgette-Colace) 1 tab BID PO 10/11/17 09:00 10/12/17 09:26 (Milk Of Magnesia Liq) 30 ml Q12H PRN PO 10/10/17 23:30 (Senokot) 17.2 mg Q12H PRN PO 10/10/17 23:30 (Dulcolax Supp) 10 mg DAILY PRN RECTAL 10/10/17 23:30 (Lactulose Liq) 30 ml DAILY PRN PO 10/10/17 23:30 (Zithromax) 500 mg Q24H PO 10/11/17 19:00 10/12/17 17:04 (Norvasc) 10 mg DAILY PO 10/11/17 09:00 10/13/17 08:16 (Ecotrin Ec) 81 mg DAILY PO 10/11/17 09:00 10/13/17 08:17 (Ferrous Sulfate) 325 mg BID PO 10/11/17 09:00 Future Hold 10/13/17 08:17 (Lopid) 300 mg BIDAC PO 10/11/17 07:00 10/12/17 17:04 (Levemir Inj) 10 units HS SQ 10/11/17 21:00 10/12/17 22:16 (Roxicodone) 10 mg Q4H PRN PO 10/10/17 23:30 10/13/17 14:22 (Pravachol) 40 mg HS PO 10/11/17 21:00 10/12/17 22:11 (Prinivil) 40 mg DAILY PO 10/11/17 09:00 Future Hold 10/12/17 09:27 (D50w (Vial) Inj) 50 ml UNSCH PRN IV PUSH 10/10/17 23:30 (Glucagon Inj) 1 mg UNSCH PRN OTHER 10/10/17 23:30 (NovoLOG SUPPLEMENTAL SCALE) 1 ACHS SLIDING SCALE SQ 10/11/17 08:00 10/13/17 12:00 (Pill Splitter) 1 ea UNSCH PRN OTHER 10/11/17 00:45 (Lactinex) 1 tab Q12HR PO 10/11/17 21:00 10/13/17 08:16 (KCl) 20 meq DAILY PO 10/12/17 09:00 10/13/17 08:17 (Apresoline) 10 mg Q8HR PRN PO 10/12/17 14:00 Piperacillin Sod/ Tazobactam Sod 50 ml @ 100 mls/hr Q6H IV 10/12/17 21:00 10/13/17 08:27 (Trandate) 100 mg Q12HR PO 10/12/17 21:00 10/13/17 08:16 (Lasix Inj) 20 mg DAILY IV PUSH 10/13/17 11:30 (Bactroban Nasal 2% Oint) 1 applic BID EACH NARE 10/13/17 21:00 Family History Father-heart disease Mother-DM, HTN Grandma-cancer Social History Before last hospitalization, worked and fully independent; in [place] for rehab now Tobacco: never Alcohol: never Illicit drug use: never (Jack Cardenas) Physical Exam Vital Signs Vital Signs Date Time Temp Pulse Resp B/P (MAP) Pulse Ox O2 Delivery O2 Flow Rate FiO2 10/13/17 11:29 98.0 66 16 102/54 (70) 95 10/13/17 08:55 71 10/13/17 08:05 95 Nasal Cannula 3.00 10/13/17 08:00 96 Nasal Cannula 2.00 10/13/17 07:45 98.4 75 16 144/65 (91) 97 10/13/17 06:34 10/13/17 04:00 99.8 77 20 149/60 (89) 96 10/13/17 00:00 99.9 75 20 133/60 (84) 95 10/12/17 22:09 96 Nasal Cannula 2.00 10/12/17 20:00 72 10/12/17 20:00 99.5 76 16 135/63 (87) 96 10/12/17 20:00 Nasal Cannula 2.00 10/12/17 16:27 99.0 84 20 158/72 (100) 95 Physical Exam GENERAL: Well-developed well-nourished. Currently having chills, otherwise in no acute distress. Satting well on 2 L O2. NECK: No JVD or carotid bruits. CARDIOVASCULAR: Regular rate and rhythm. No murmur appreciated. RESPIRATORY: No accessory muscle use. Clear to auscultation. Diminished breath sounds bilateral bases. MUSCULOSKELETAL: No clubbing or cyanosis. No pitting edema. NEUROLOGICAL: Awake and alert. Normal speech. PSYCHIATRIC: Appropriate mood and affect. Laboratory Laboratory Tests Test 10/12/17 16:00 10/13/17 10:29 Urine Eosinophils 2-5 White Blood Count 12.5 Red Blood Count 2.63 Hemoglobin 7.4 Hematocrit 22.7 Mean Corpuscular Volume 86.5 Mean Corpuscular Hemoglobin 28.2 Mean Corpuscular Hemoglobin Concent 32.6 Red Cell Distribution Width 14.3 Platelet Count 614 Mean Platelet Volume 6.5 Neutrophils (%) (Auto) 76.0 Lymphocytes (%) (Auto) 15.1 Monocytes (%) (Auto) 6.5 Eosinophils (%) (Auto) 1.6 Basophils (%) (Auto) 0.8 Neutrophils # (Auto) 9.5 Lymphocytes # (Auto) 1.9 Monocytes # (Auto) 0.8 Eosinophils # (Auto) 0.2 Basophils # (Auto) 0.1 CBC Comment DIFF FINAL Differential Comment Blood Urea Nitrogen 27 Creatinine 3.79 Random Glucose 145 Calcium Level 8.3 Sodium Level 133 Potassium Level 4.9 Chloride Level 97 Carbon Dioxide Level 23.5 Anion Gap 13 Estimat Glomerular Filtration Rate 14 Date/Time Source Procedure Growth Status 10/10/17 19:10 Blood Peripheral Aerobic Blood Culture - Preliminary NO GROWTH IN 3 DAYS Resulted 10/10/17 19:10 Blood Peripheral Anaerobic Blood Culture - Preliminary NO GROWTH IN 3 DAYS Resulted 10/12/17 16:00 Urine Clean Catch Streptococcus pneumoniae Antigen (M - Final PRESUMPTIVE NEGATIVE FOR STREPTOCOCCU... Complete (Jack Cardenas) Result Diagram: 10/13/17 1029 10/13/17 1029 Imaging Last Impressions Abdomen/Pelvis CT 10/13/17 0000 Signed Impressions: Service Date/Time: September 09:53 - CONCLUSION: 1. Previously noted right perinephric drain has been removed. There has been interval development of small perinephric fluid collection status post drain removal. Perfusion defects are noted within both kidneys suggesting bilateral pyelonephritis (right much worse than left). 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 2. Anasarca is noted. 3. Stable mild to moderate-sized bilateral pleural effusions with adjacent compressive atelectasis. Daniel Portillo MD Renal Ultrasound 10/12/17 0000 Signed Impressions: Service Date/Time: Thursday, October 12, 2017 15:05 - CONCLUSION: 1. Total obscuration of the mid and lower pole of the right kidney secondary to air either within the kidney itself or directly adjacent to the kidney. No abscess seen involving the upper pole. 2. Left kidney is unremarkable. Corey Millan Jr., MD Chest X-Ray 10/11/17 0000 Signed Impressions: Service Date/Time: Wednesday, October 11, 2017 11:49 - CONCLUSION: Cardiomegaly with interstitial edema and small pleural effusions. Mild CHF and significantly improved from previous study. Carlos Triplett MD CT Angiography 10/10/17 1936 Signed Impressions: Service Date/Time: Tuesday, October 10, 2017 20:59 - CONCLUSION: 1. No pulmonary loss. 2. Mild to moderate bilateral pleural effusions with accompanying areas of atelectasis or consolidation of the lower lobes. 3. Mosaic perfusion pattern seen throughout the lungs likely related to mild edema. Maycol Nance MD (Jack Cardenas) Assessment and Plan Assessment and Plan 67-year-old female with past medical history of DM, HTN, and recent hospitalization for pyelonephritis who presented for shortness of breath Shortness of breath: Bibasilar edema and small effusions seen on chest imaging. Diuresis on hold with kidney injury. Echocardiograms with no signs of CHF. Would recommend further workup of pulmonary etiologies of shortness of breath. PFO: Will discuss with the patient regarding closure of PFO in the future. Discussed Condition With Dr. Swan (Jack Cardenas) Assessment and Plan agree with above. SOB more pulmonary than cardiac. given ARF. DC lasix. continue current care. CVA - not good anticoagulation candidate. Not good candidate for PFO closure due to infection. Likely cardioembolic source. asa should be 325 mg daily. ? anemia w/u (Amrti Swan MD) Jack Cardenas Oct 13, 2017 15:36 Amrit Swan MD Oct 14, 2017 10:45
--- NOTE | 2017-10-13 15:51 | PD.CONS ---
HPI Service Urology Consult Requested By Reason for Consult Pyelonephritis Primary Care Physician Susanna Mcbride MD Diagnosis: History of Present Illness 67 yo female h/o DM, right emphysematous pyelonephritis s/p cystoscopy, right ureteral stent insertion with subsequent percutaneous drainage of a perinephric abscess was admitted from rehab facility with SOB, fever 103, lower abdominal pain. During work up, she was found to have a WBC over 20,000 and had a CTA done to r/o PE which showed bilateral pleural effusions, possible pneumonia. She was admitted and started on antibiotics. Her Creatinine has steadily risen since admission. Due to her history, Urology was consulted for further evaluation. A CT was done earlier today which was consistent with bilateral pyelonephritis, but no evidence of hydronephrosis or abscess. She feels better than when she cam in 2 days ago. She continues to have diffuse lower abdominal pain, radiating to her back. Denies chills, chest apin, trouble breathing, dysuria, hematuria. She has occasional nausea. Review of Systems Constitutional: COMPLAINS OF: Fever, DENIES: Diaphoretic episodes, Fatigue, Weight gain, Weight loss, Chills, Dizziness, Change in appetite, Night Sweats Endocrine: DENIES: Abnorml menstrual pattern, Heat/cold intolerance, Polydipsia , Polyuria, Polyphagia Eyes: DENIES: Blurred vision, Diplopia, Eye inflammation, Eye pain, Vision loss , Photosensitivity, Double Vision Ears, nose, mouth, throat: DENIES: Tinnitus, Hearing loss, Vertigo, Nasal discharge, Oral lesions, Throat pain, Hoarseness, Ear Pain, Running Nose, Epistaxis, Sinus Pain, Toothache, Odynophagia Respiratory: DENIES: Apneas, Cough, Snoring, Wheezing, Hemoptysis, Sputum production, Shortness of breath Cardiovascular: DENIES: Chest pain, Palpitations, Syncope, Dyspnea on Exertion , PND, Lower Extremity Edema, Orthopnea, Claudication Gastrointestinal: COMPLAINS OF: Abdominal pain, Nausea, DENIES: Black stools, Bloody stools, Constipation, Diarrhea, Vomiting, Difficulty Swallowing, Anorexia Genitourinary: DENIES: Abnormal vaginal bleeding, Dysmenorrhea, Dyspareunia, Sexual dysfunction, Urinary frequency, Urinary incontinence, Urgency, Hematuria , Dysuria, Nocturia, Vaginal discharge Musculoskeletal: DENIES: Joint pain, Muscle aches, Stiffness, Joint Swelling, Back pain, Neck pain Integumentary: DENIES: Abnormal pigmentation, Pruritus, Rash, Nail changes, Breast masses, Breast skin changes, Nipple discharge Hematologic/lymphatic: DENIES: Bruising, Lymphadenopathy Immunologic/allergic: DENIES: Eczema, Urticaria Neurologic: DENIES: Abnormal gait, Headache, Localized weakness, Paresthesias, Seizures, Speech Problems, Tremor, Poor Balance Psychiatric: DENIES: Anxiety, Confusion, Mood changes, Depression, Hallucinations, Agitation, Suicidal Ideation, Homicidal Ideation, Delusions Past Family Social History Past Medical History DM, emphysematous pyelonephritis, perinephric abscess, HTN, hyperlipidemia Past Surgical History cystoscopy, right ureteral stent insertion Allergies: Coded Allergies: metformin (Unverified Allergy, Severe, Numbness, 10/10/17) clonidine (Unverified Allergy, Unknown, 10/10/17) Active Ordered Medications Insulin, Zosyn, Hydralazine Family History Denies urolithiasis, malignancies Social History denies tobacco, alcohol, drugs Physical Exam Vital Signs Date Time Temp Pulse Resp B/P (MAP) Pulse Ox O2 Delivery O2 Flow Rate FiO2 10/13/17 11:29 98.0 66 16 102/54 (70) 95 10/13/17 08:55 71 10/13/17 08:05 95 Nasal Cannula 3.00 10/13/17 08:00 96 Nasal Cannula 2.00 10/13/17 07:45 98.4 75 16 144/65 (91) 97 10/13/17 06:34 10/13/17 04:00 99.8 77 20 149/60 (89) 96 10/13/17 00:00 99.9 75 20 133/60 (84) 95 10/12/17 22:09 96 Nasal Cannula 2.00 10/12/17 20:00 72 10/12/17 20:00 99.5 76 16 135/63 (87) 96 10/12/17 20:00 Nasal Cannula 2.00 10/12/17 16:27 99.0 84 20 158/72 (100) 95 Physical Exam GENERAL: This is a well-nourished, well-developed patient, in no apparent distress. SKIN: No rashes, ecchymoses or lesions. Cool and dry. HEAD: Atraumatic. Normocephalic. No temporal or scalp tenderness. EYES: Pupils equal round and reactive. Extraocular motions intact. No scleral icterus. No injection or drainage. ENT: Nose without bleeding, purulent drainage or septal hematoma. Throat without erythema, tonsillar hypertrophy or exudate. Uvula midline. Airway patent. NECK: Trachea midline. No JVD or lymphadenopathy. Supple, nontender, no meningeal signs. CARDIOVASCULAR: Regular rate and rhythm without murmurs, gallops, or rubs. RESPIRATORY: Clear to auscultation. Breath sounds equal bilaterally. No wheezes , rales, or rhonchi. GASTROINTESTINAL: Abdomen soft, non-tender, nondistended. No hepato-splenomegaly , or palpable masses. No guarding. GENITOURINARY: No CVA tenderness. Pelvic Exam not indicated. MUSCULOSKELETAL: Extremities without clubbing, cyanosis, or edema. No joint tenderness, effusion, or edema noted. No calf tenderness. Negative Homans sign bilaterally. NEUROLOGICAL: Awake and alert. Cranial nerves II through XII intact. Motor and sensory grossly within normal limits. Five out of 5 muscle strength in all muscle groups. Normal speech. Lab results reviewed: Yes Laboratory Tests Test 10/12/17 16:00 10/13/17 10:29 Urine Eosinophils 2-5 White Blood Count 12.5 Red Blood Count 2.63 Hemoglobin 7.4 Hematocrit 22.7 Mean Corpuscular Volume 86.5 Mean Corpuscular Hemoglobin 28.2 Mean Corpuscular Hemoglobin Concent 32.6 Red Cell Distribution Width 14.3 Platelet Count 614 Mean Platelet Volume 6.5 Neutrophils (%) (Auto) 76.0 Lymphocytes (%) (Auto) 15.1 Monocytes (%) (Auto) 6.5 Eosinophils (%) (Auto) 1.6 Basophils (%) (Auto) 0.8 Neutrophils # (Auto) 9.5 Lymphocytes # (Auto) 1.9 Monocytes # (Auto) 0.8 Eosinophils # (Auto) 0.2 Basophils # (Auto) 0.1 CBC Comment DIFF FINAL Differential Comment Blood Urea Nitrogen 27 Creatinine 3.79 Random Glucose 145 Calcium Level 8.3 Sodium Level 133 Potassium Level 4.9 Chloride Level 97 Carbon Dioxide Level 23.5 Anion Gap 13 Estimat Glomerular Filtration Rate 14 Date/Time Source Procedure Growth Status 10/10/17 19:10 Blood Peripheral Aerobic Blood Culture - Preliminary NO GROWTH IN 3 DAYS Resulted 10/10/17 19:10 Blood Peripheral Anaerobic Blood Culture - Preliminary NO GROWTH IN 3 DAYS Resulted 10/12/17 16:00 Urine Clean Catch Streptococcus pneumoniae Antigen (M - Final PRESUMPTIVE NEGATIVE FOR STREPTOCOCCU... Complete Result Diagram: 10/13/17 1029 10/13/17 1029 Personally reviewed images: Yes (bilateral pyelonephritis; no abscess or hydronephrosis seen; right ureteral stent in good position) Imaging Last Impressions Abdomen/Pelvis CT 10/13/17 0000 Signed Impressions: Service Date/Time: September 09:53 - CONCLUSION: 1. Previously noted right perinephric drain has been removed. There has been interval development of small perinephric fluid collection status post drain removal. Perfusion defects are noted within both kidneys suggesting bilateral pyelonephritis (right much worse than left). 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 2. Anasarca is noted. 3. Stable mild to moderate-sized bilateral pleural effusions with adjacent compressive atelectasis. Daniel Portillo MD Renal Ultrasound 10/12/17 0000 Signed Impressions: Service Date/Time: Thursday, October 12, 2017 15:05 - CONCLUSION: 1. Total obscuration of the mid and lower pole of the right kidney secondary to air either within the kidney itself or directly adjacent to the kidney. No abscess seen involving the upper pole. 2. Left kidney is unremarkable. Corey Millan Jr., MD Chest X-Ray 10/11/17 0000 Signed Impressions: Service Date/Time: Wednesday, October 11, 2017 11:49 - CONCLUSION: Cardiomegaly with interstitial edema and small pleural effusions. Mild CHF and significantly improved from previous study. Carlos Triplett MD CT Angiography 10/10/17 1936 Signed Impressions: Service Date/Time: Tuesday, October 10, 2017 20:59 - CONCLUSION: 1. No pulmonary loss. 2. Mild to moderate bilateral pleural effusions with accompanying areas of atelectasis or consolidation of the lower lobes. 3. Mosaic perfusion pattern seen throughout the lungs likely related to mild edema. Maycol Nance MD Assessment and Plan Problem List: (1) Pyelonephritis ICD Code: N12 - Pyelonephritis Status: Acute (2) DELLA (acute kidney injury) ICD Code: N17.9 - Acute kidney failure, unspecified Status: Acute Assessment and Plan Continue IV antibiotics, cultures pending. Consider ID consult. IV Hydration DELLA likely from infection. No surgical intervention needed at this time. Thank you for this consult. Shahram Ramirez MD Oct 13, 2017 15:51
[2017-10-13] MEDS ORDERED: FUROSEMIDE 40 MG/4 ML VIAL ONE (16:31)
[2017-10-13] MEDS: AZITHROMYCIN 250 MG TAB PO SCH (18:17)
[2017-10-13] MEDS: PRAVASTATIN SOD 40 MG TAB PO SCH (22:18)
[2017-10-13] MEDS: INSULIN DETEMIR 100 UNITS/ML VIAL SQ SCH (22:19)
--- NOTE | 2017-10-13 22:33 | MB ---
cc: ZAMZAM DEL ANGEL MD DATE OF CONSULTATION: 10/13/2017 REASON FOR CONSULTATION Elevated BUN and creatinine for evaluation. HISTORY OF PRESENT ILLNESS This is an 67-year-old female with a past medical history of hypertension, diabetes mellitus, history of pyelonephritis with perinephric abscess who was admitted with complaint of worsening shortness of breath. I was called to see the patient because of elevated BUN and creatinine. The patient has a history of acute kidney injury before, and she was seen by me when she was admitted last month and had acute kidney injury. Her creatinine was as high as 2.8 and it improved to 0.9, and this time she was admitted with a creatinine of 1.2 and it has gone up now to 3.7. The patient has been diagnosed with a urinary tract infection and pneumonia, and she was complaining of shortness of breath and she has been getting antibiotics. Urine culture grew group D Enterococcus and she has been on azithromycin and Zosyn. The patient was on lisinopril which has been stopped when the creatinine has increased. She denies any nausea or vomiting. Her breathing is slightly better. No history of diarrhea. She still has some dysuria. The patient was seen by Urology. PAST MEDICAL HISTORY 1. Diabetes mellitus. 2. Hypertension. 3. History of acute kidney injury. 4. History of pyelonephritis. 5. History of stroke. PAST SURGICAL HISTORY History of section. REVIEW OF SYSTEMS The patient denied weakness, feeling tired. Has dysuria and has some mild lower abdominal pain. Her breathing is better. She has mild cough which is mainly dry. There is no chest pain and palpitation. No nausea or vomiting. No history of diarrhea. She still has some dysuria. There is no history of hematuria. SOCIAL HISTORY There is no history of smoking, no alcoholism. FAMILY HISTORY Noncontributory. ALLERGIES SHE HAS ALLERGY TO CLONIDINE AND METFORMIN. MEDICATIONS Currently she is on following medications. 1. Bridgette-Colace one tablet b.i.d. 2. Lopid 300 mg b.i.d. 3. Amlodipine 10 mg once a day. 4. Aspirin 81 mg daily. 5. Potassium chloride 20 mg once a day. 6. Furosemide 20 mg IV once a day. 7. Levemir 10 units subcu q.h.s. 8. Pravachol 40 mg q.h.s. 9. Heparin 5000 units subcu q.12 hours. 10. Lactinex one tablet q.12 hours. 11. Trandate 100 mg q.12 hours. 12. Zithromax 500 mg 500 mg q.24 hours. 13. Zosyn 2.25 grams IV q.6 hours. 14. Insulin sliding scale. 15. Tylenol as needed. 16. Zofran as needed. 17. Narcan as needed. PHYSICAL EXAMINATION GENERAL: The patient is awake and alert. She is not in acute distress. VITAL SIGNS: Her last blood pressure is 109/66, temperature is 98.2, oxygen saturation 97% on nasal cannula. There is no documented hypotensive episode in the last few days. HEENT: Pupils are mid constricted. Nonicteric sclerae. Conjunctivae are pale. NECK: Supple. JVD is not elevated. LUNGS: The patient has bilateral decreased air entry with scattered wheezing. HEART: S1, S2, regular. ABDOMEN: The abdomen is distended, soft, lax. There is mild tenderness in the suprapubic area. There is no rebound or rigidity. Bowel sounds positive. EXTREMITIES: She has 1+ leg edema. INVESTIGATIONS WBC count is 12.5, hemoglobin 7.4, platelet count 614, neutrophils 76%. Sodium 133, potassium 4.9, chloride 97, bicarb 23.5, BUN 27, creatinine 3.79, and glucose 145, calcium is 8.3, AST and ALT normal, alkaline phosphatase 127, trop-I is 0.13, total protein 6.7, albumin of 1.8. INR is 1.1. Urinalysis showing protein of 100 with RBC 10, WBC 33. Immunology was done during last admission showing XANDER was negative and ANCA was negative. Rheumatoid factor was also negative. Urine culture growing group D Enterococcus. IMAGING STUDIES The patient had a CT scan of the abdomen and pelvis done today without IV contrast and it shows that the right perinephric drain has been removed. There is interval development of a small perinephric fluid collection. Possible bilateral pyelonephritis. Possibly emphysematous pyelonephritis in the right side. Anasarca. Stable [id number] sized pleural effusion with atelectasis. Ultrasound of the kidney was done yesterday and it shows there is total obscuration of the mid and lower pole of the right kidney secondary to air within the kidney. No abscess seen. Left kidney is unremarkable. ASSESSMENT 1. Urinary tract infection and pyelonephritis. 2. Acute kidney injury. 3. Hypertension. 4. Fluid overload with anasarca and pleural effusion. 5. Severe anemia. PLAN The patient has a urinary tract infection and possible pyelonephritis and group D Enterococcus. She is getting antibiotic. The patient has been nonoliguric and developed mild acute kidney injury. The acute kidney injury most likely from the ATN from infection or pyelonephritis. The air in and around the kidney could be from the retroperitoneal abscess drainage which was done during last admission. At present I agree with continuing the antibiotic, she is on Lasix. If the creatinine continues to increase, then I will hold the Lasix and potassium and also avoid any nephrotoxins. We will check the urine eosinophils also and avoid any nephrotoxins and follow the urine output and BUN and creatinine. Thank you for the consultation and I will follow the patient while she is in the hospital. MD RAFAELA Adams/ARON /9:27 PM /9:43 PM
[2017-10-13] MEDS: MUPIROCIN 2% OINT 1 APPLIC/GM SYR EACH NARE SCH (22:48)
[2017-10-14] VITALS (7 sets, daily range): BP systolic 104–136; BP diastolic 56–70; PULSE 65–73; RESP 18–21; TEMP 98–99.2; O2SAT 92–99
[2017-10-14] MEDS: PIPERACIL-TAZO 2.25 GM PREMIX 50 ML IV SCH ×4 (02:26→21:25)
[2017-10-14] MEDS: GEMFIBROZIL 600 MG TAB PO SCH ×2 (06:33→15:22)
[2017-10-14 07:46] LABS: AUTOMATED NEUTROPHIL # 7.6 TH/MM3 (1.8-7.7); BASOPHIL # 0.1 TH/MM3 (0-0.2); BASOPHIL % 0.9 % (0.0-2.0); EOSINOPHIL # 0.5 TH/MM3 (0-0.4); EOSINOPHIL % 4.4 % (0.0-4.0); HEMO FLAGS DIFF FINAL; LYMPH % 17.6 % (9.0-44.0); MEAN CORPUSCULAR HGB CONC 33.3 % (32.0-36.0); MONO % 9.5 % (0.0-8.0); NEUT % 67.6 % (16.0-70.0); PLATELET COUNT 539 TH/MM3 (150-450); RED BLOOD COUNT 2.64 MIL/MM3 (4.00-5.30); RED CELL DISTRIBUTION WIDTH 14.2 % (11.6-17.2); WHITE BLOOD COUNT 11.2 TH/MM3 (4.0-11.0)
--- NOTE | 2017-10-14 07:49 | PD.CARD.PN ---
Subjective Subjective Remarks No chest pain. Shortness of breath and leg swelling have significantly improved during admission. Overall feels improved today. (Jack Cardenas) Objective Medications Current Medications Medications (Trade) Dose Ordered Sig/Alisha Route Start Time Stop Time Status Last Admin (NS Flush) 2 ml UNSCH PRN IV FLUSH 10/10/17 23:30 (NS Flush) 2 ml BID IV FLUSH 10/11/17 09:00 10/13/17 22:17 (Tylenol) 650 mg Q4H PRN PO 10/10/17 23:30 10/11/17 23:07 (Zofran Inj) 4 mg Q6H PRN IVP 10/10/17 23:30 10/13/17 06:15 (Heparin Inj) 5,000 units Q12H SQ 10/12/17 00:00 10/13/17 22:49 (Narcan Inj) 0.4 mg UNSCH PRN IV PUSH 10/10/17 23:30 (Bridgette-Colace) 1 tab BID PO 10/11/17 09:00 10/12/17 09:26 (Milk Of Magnesia Liq) 30 ml Q12H PRN PO 10/10/17 23:30 (Senokot) 17.2 mg Q12H PRN PO 10/10/17 23:30 (Dulcolax Supp) 10 mg DAILY PRN RECTAL 10/10/17 23:30 (Lactulose Liq) 30 ml DAILY PRN PO 10/10/17 23:30 (Zithromax) 500 mg Q24H PO 10/11/17 19:00 10/13/17 18:17 (Norvasc) 10 mg DAILY PO 10/11/17 09:00 10/13/17 08:16 (Ecotrin Ec) 81 mg DAILY PO 10/11/17 09:00 10/13/17 08:17 (Ferrous Sulfate) 325 mg BID PO 10/11/17 09:00 Future Hold 10/13/17 08:17 (Lopid) 300 mg BIDAC PO 10/11/17 07:00 10/14/17 06:33 (Levemir Inj) 10 units HS SQ 10/11/17 21:00 10/13/17 22:19 (Roxicodone) 10 mg Q4H PRN PO 10/10/17 23:30 10/14/17 06:33 (Pravachol) 40 mg HS PO 10/11/17 21:00 10/13/17 22:18 (Prinivil) 40 mg DAILY PO 10/11/17 09:00 Future Hold 10/12/17 09:27 (D50w (Vial) Inj) 50 ml UNSCH PRN IV PUSH 10/10/17 23:30 (Glucagon Inj) 1 mg UNSCH PRN OTHER 10/10/17 23:30 (NovoLOG SUPPLEMENTAL SCALE) 1 ACHS SLIDING SCALE SQ 10/11/17 08:00 10/13/17 22:19 (Pill Splitter) 1 ea UNSCH PRN OTHER 10/11/17 00:45 (Lactinex) 1 tab Q12HR PO 10/11/17 21:00 10/13/17 22:20 (KCl) 20 meq DAILY PO 10/12/17 09:00 10/13/17 08:17 (Apresoline) 10 mg Q8HR PRN PO 10/12/17 14:00 Piperacillin Sod/ Tazobactam Sod 50 ml @ 100 mls/hr Q6H IV 10/12/17 21:00 10/14/17 02:26 (Trandate) 100 mg Q12HR PO 10/12/17 21:00 10/13/17 22:18 (Lasix Inj) 20 mg DAILY IV PUSH 10/13/17 11:30 10/13/17 11:30 (Bactroban Nasal 2% Oint) 1 applic BID EACH NARE 10/13/17 21:00 10/13/17 22:48 Vital Signs / I&O Vital Signs Date Time Temp Pulse Resp B/P (MAP) Pulse Ox O2 Delivery O2 Flow Rate FiO2 10/14/17 04:00 98.5 65 21 104/56 (72) 98 10/14/17 00:00 98.0 72 19 136/70 (92) 99 10/13/17 20:00 98.4 67 19 144/67 (92) 96 10/13/17 20:00 Nasal Cannula 2.00 10/13/17 19:48 97 Nasal Cannula 10/13/17 16:06 98.2 63 20 109/66 (80) 98 10/13/17 11:29 98.0 66 16 102/54 (70) 95 10/13/17 08:55 71 10/13/17 08:05 95 Nasal Cannula 3.00 10/13/17 08:00 96 Nasal Cannula 2.00 10/13/17 07:45 98.4 75 16 144/65 (91) 97 I/O 10/13/17 10/13/17 10/13/17 10/14/17 10/14/17 10/14/17 07:00 15:00 23:00 07:00 15:00 23:00 Intake Total 220 ml 600 ml 240 ml Output Total 280 ml 400 ml Balance -60 ml 600 ml -160 ml Intake Oral 220 ml 600 ml 240 ml Output Urine Total 280 ml 400 ml # Voids 3 # Bowel Movements 1 2 0 Physical Exam GENERAL: Well-developed well-nourished. In no acute distress. Appears in better spirits today. NECK: No carotid bruits. No JVD. CARDIOVASCULAR: Regular rate and rhythm. No murmur appreciated. RESPIRATORY: No accessory muscle use. Clear to auscultation. Breath sounds equal bilaterally. MUSCULOSKELETAL: No clubbing or cyanosis. No edema. NEUROLOGICAL: Awake and alert. Normal speech. Laboratory Laboratory Tests Test 10/13/17 10:29 10/14/17 02:30 10/14/17 06:20 10/14/17 06:30 White Blood Count 12.5 TH/MM3 Red Blood Count 2.63 MIL/MM3 Hemoglobin 7.4 GM/DL Hematocrit 22.7 % Mean Corpuscular Volume 86.5 FL Mean Corpuscular Hemoglobin 28.2 PG Mean Corpuscular Hemoglobin Concent 32.6 % Red Cell Distribution Width 14.3 % Platelet Count 614 TH/MM3 Mean Platelet Volume 6.5 FL Neutrophils (%) (Auto) 76.0 % Lymphocytes (%) (Auto) 15.1 % Monocytes (%) (Auto) 6.5 % Eosinophils (%) (Auto) 1.6 % Basophils (%) (Auto) 0.8 % Neutrophils # (Auto) 9.5 TH/MM3 Lymphocytes # (Auto) 1.9 TH/MM3 Monocytes # (Auto) 0.8 TH/MM3 Eosinophils # (Auto) 0.2 TH/MM3 Basophils # (Auto) 0.1 TH/MM3 CBC Comment DIFF FINAL Differential Comment Blood Urea Nitrogen 27 MG/DL Creatinine 3.79 MG/DL Random Glucose 145 MG/DL Calcium Level 8.3 MG/DL Sodium Level 133 MEQ/L Potassium Level 4.9 MEQ/L Chloride Level 97 MEQ/L Carbon Dioxide Level 23.5 MEQ/L Anion Gap 13 MEQ/L Estimat Glomerular Filtration Rate 14 ML/MIN Urine Eosinophils 0-2 /HPF (Jack Cardenas) Assessment and Plan Assessment and Plan 67-year-old female with past medical history of DM, HTN, and recent hospitalization for pyelonephritis who presented for shortness of breath Shortness of breath: Bibasilar edema and small effusions seen on chest imaging. Diuresis decreased with kidney injury, caution with diuresis. Previous echocardiograms with no signs of CHF. Recommended further workup of pulmonary etiologies of shortness of breath, pulmonology consulted. PFO: Discussed with the patient regarding closure of PFO in the future. Discussed Condition With Dr. Swan (Jack Cardenas) Assessment and Plan SOB - improved. No CHF. DC diuretic. monitor Cr CVA - probable cardioembolic from PFO. not candidate for closure or anticoagulation now. asa 325 anemia - Hb down to 7's. need probable GI evaluation vs chronic dz will sign off call with further questions (Amrit Swan MD) Jack Cardenas Oct 14, 2017 07:49 Amrit Swan MD Oct 14, 2017 10:55
[2017-10-14 07:54] LABS: BICARBONATE 22.9 MEQ/L (21.0-32.0); POTASSIUM 4.8 MEQ/L (3.5-5.1)
[2017-10-14] MEDS: INSULIN ASPART SUPPLEMENTAL SCALE SQ SCH ×4 (08:00→21:00)
[2017-10-14] MEDS: DOCUSATE SODIUM 50 MG/SENNA 8.6 MG TAB PO SCH ×2 (08:19→21:00)
[2017-10-14] MEDS: LACTOBACILLUS ACIDOPHILUS TAB PO SCH ×2 (08:19→21:25)
[2017-10-14] MEDS: ASPIRIN EC 81 MG TABEC PO SCH (08:19)
[2017-10-14] MEDS: POTASSIUM CHLORIDE 20 MEQ CONTROLLED RELEASE TAB PO SCH (08:19)
[2017-10-14] MEDS: MUPIROCIN 2% OINT 1 APPLIC/GM SYR EACH NARE SCH ×2 (08:20→21:25)
[2017-10-14] MEDS: SODIUM CHLORIDE 0.9% FLUSH 10 ML FLUSH IV FLUSH SCH ×2 (08:20→21:25)
[2017-10-14] MEDS: FUROSEMIDE 20 MG/2 ML VIAL IV PUSH SCH (08:20)
[2017-10-14] MEDS: LABETALOL HCL 100 MG TAB PO SCH ×2 (10:52→21:25)
[2017-10-14] MEDS: HEPARIN SODIUM - SQ 10,000 UNITS/ML VIAL SQ SCH ×2 (14:09→22:48)
--- NOTE | 2017-10-14 16:31 | HHI.FPPN ---
Subjective Remarks Mrs. Cohen was afebrile with stable vital signs overnight; patient's saturations have been ~92% on 2 L NC O2. Patient accompanied by her daughter who was at bedside. She reports continued weakness patient reports continued weakness and fatigue. Patient does not report chest pain or shortness of breath. Patient reports decreased urination. Patient patient reports mild general discomfort but no intense back pain. She reports improvement in lower extremity edema. (Austin Thompson MD, R3) Objective Vitals Vital Signs Date Time Temp Pulse Resp B/P (MAP) Pulse Ox O2 Delivery O2 Flow Rate FiO2 10/14/17 16:23 18 10/14/17 15:52 93 Nasal Cannula 2.00 10/14/17 12:00 98.6 70 18 110/60 (77) 93 10/14/17 11:00 Nasal Cannula 2.00 10/14/17 08:00 Nasal Cannula 2.00 10/14/17 08:00 98.3 68 18 111/62 (78) 92 10/14/17 04:00 98.5 65 21 104/56 (72) 98 10/14/17 00:00 98.0 72 19 136/70 (92) 99 10/13/17 20:00 98.4 67 19 144/67 (92) 96 10/13/17 20:00 Nasal Cannula 2.00 10/13/17 19:48 97 Nasal Cannula I/O 10/13/17 10/13/17 10/13/17 10/14/17 10/14/17 10/14/17 07:00 15:00 23:00 07:00 15:00 23:00 Intake Total 220 ml 600 ml 240 ml Output Total 280 ml 400 ml Balance -60 ml 600 ml -160 ml Intake Oral 220 ml 600 ml 240 ml Output Urine Total 280 ml 400 ml # Voids 3 # Bowel Movements 1 2 0 (Austin Thompson MD, R3) Result Diagram: 10/14/17 0630 10/14/17 0620 Imaging Last Impressions Abdomen/Pelvis CT 10/13/17 0000 Signed Impressions: Service Date/Time: September 09:53 - CONCLUSION: 1. Previously noted right perinephric drain has been removed. There has been interval development of small perinephric fluid collection status post drain removal. Perfusion defects are noted within both kidneys suggesting bilateral pyelonephritis (right much worse than left). 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 2. Anasarca is noted. 3. Stable mild to moderate-sized bilateral pleural effusions with adjacent compressive atelectasis. Daniel Portillo MD Renal Ultrasound 10/12/17 0000 Signed Impressions: Service Date/Time: Thursday, October 12, 2017 15:05 - CONCLUSION: 1. Total obscuration of the mid and lower pole of the right kidney secondary to air either within the kidney itself or directly adjacent to the kidney. No abscess seen involving the upper pole. 2. Left kidney is unremarkable. Corey Millan Jr., MD Chest X-Ray 10/11/17 0000 Signed Impressions: Service Date/Time: Wednesday, October 11, 2017 11:49 - CONCLUSION: Cardiomegaly with interstitial edema and small pleural effusions. Mild CHF and significantly improved from previous study. Carlos Triplett MD CT Angiography 10/10/17 1936 Signed Impressions: Service Date/Time: Tuesday, October 10, 2017 20:59 - CONCLUSION: 1. No pulmonary loss. 2. Mild to moderate bilateral pleural effusions with accompanying areas of atelectasis or consolidation of the lower lobes. 3. Mosaic perfusion pattern seen throughout the lungs likely related to mild edema. Maycol Nance MD Objective Remarks GENERAL: no apparent distress. SKIN: No lesions. EYES: Pupils equal round and reactive. EOM grossly intact CARDIOVASCULAR: Regular rate and rhythm without murmurs. Normal peripheral perfusion RESPIRATORY: Decreased breath sounds overall. Mild R lung crackling to auscultation GASTROINTESTINAL: Abdomen soft, non-tender, nondistended.No guarding. MUSCULOSKELETAL: Minimal to no edema in bilateral lower extremities. NEUROLOGICAL: Awake and alert. Motor and sensory function grossly within normal limits. Normal speech. (Austin Thompson MD, R3) A/P Assessment and Plan 67-year-old female with history of diabetes and hypertension with recent hospitalization for pyelonephritis/renal abscess presents with shortness of breath: (Austin Thompson MD, R3) Attending Attestation Patient seen and examined with Dr Thompson. Case reviewed and discussed with the resident team. Agree with plan of care as discussed with me and documented in the resident note. (French Salter MD) Problem List: (1) Sepsis ICD Codes: A41.9 - Sepsis, unspecified organism Status: Resolved Plan: 10/12: WBC count 12.2 <- 14.7 (10/11). Stable VS with resolution of tachycardia and tachypnea 10/14: Decreasing leukocytosis (WBC 12.2 10/13-> 11.2 10/14); stable vital signs Continue empiric antibiotic therapy: -Zosyn 4.5g q6H -Azithromycin 500mg daily Patient met SIRS criteria with tachycardia (HR 102) and tachypnea (RR) 22 on admission, WBC 22.4. Likely source of infection is suspected pulmonary etiology such as pneumonia; suspect that UTI is less likely due to lack of urinary symptoms, lack of back pain, and closure of nephrostomy tube site. Lactic acid 1.1. No signs of organ dysfunction. -Blood cultures negative x2 days -Urine culture pending: Group D enterococcus -Resistant to Ampicillin, Ciprofloxacin, PCN, tetracycline, Vancomycin (2) Pyelonephritis ICD Codes: N12 - Pyelonephritis Status: Acute Plan: Impression: UA shows moderate leukocyte esterase, 33 WBC, occasional bacteria. Recent emphysematous pyelonephritis (ureteral stent placed; R nephrostomy tube placed 09/27 and subsequently removed 10/05/2017) Urine culture initially with group D enterococcus >100,000K units Renal US- total obscuration of mid/lower pole of R kidney secondary to air w/in kidney or adjacent to kidney CT A/P- prior nephritic drain removed; interval development of small perinephric fluid collection s/p drain removal. Perfusion defects w/in both kidneys suggesting bilateral pyelonephritis (R much worse than L). Persistent air w/in the R collecting system indicating emphysematous R pyelonephritis. Anasarca noted; stable mild/moderate bilateral pleural effusions with adjacent compressive atelectasis Urine culture- enterococcus; sensitive to Daptomycin, Linezolid, Nitrofurantoin but resistant to other tested organisms Continue antibiotic therapy: -Continue Zosyn -Consult ID for VRE -Urology consulted: -Continue IV antibiotics; consider ID consult -IV hydration -No surgical intervention needed at this time (3) Shortness of breath ICD Codes: R06.02 - Shortness of breath Status: Acute Plan: -Continue to monitor O2 saturations, RR, and provide O2 PRN -Continue incentive spirometry -Will continue diuresis -S/P Lasix 60mg IV in ED -Continue Lasix 20mg PO daily with 20mg KCl (decreased due to DELLA) -Will continue empiric treatment for possible HCAP: -Continue Zosyn -Continue Azithromycin for rehabilitation facility -Consult Cardiology -Pulmonary etiologies of SOB work-up recommended due to recent reassuring echo -Start ASA 325mg daily due to PFO likely causing recent CVA -Will discuss PFO closure in the future -Consult Pulmonology Patient with worsening shortness of breath for the last week, during hospitalization and worsening upon discharge. No history of lung disease. Fever at rehabilitation facility with reported Tmax 103F. Suspect possible pneumonia Chest x-ray: Cardiomegaly with interstitial edema and small pleural effusions. Mild CHF; significantly improved CTA: Mild to moderate bilateral pleural effusions with a combination areas of atelectasis or consolidation of the lower lobes. As a perfusion pattern likely related to mild edema. Echocardiogram on 09/19/17 shows ejection fraction of 65%; BNP ~1000 on admission Strep pneumo and Legionella urinary antigen negative Blood cultures negative x3 days Sputum cultures pending (4) DELLA (acute kidney injury) ICD Codes: N17.9 - Acute kidney failure, unspecified Status: Acute Plan: Impression: Increasing Cr during hospitalization: Cr 1.124 on admission - > 2.56(10/12)-> 3.79 (10/13)-> 4.53 (10/14) Patient has been receiving lasix diuresis in response to suspected fluid overload Urine eosinophils 2-5 Renal US with air in/around R kidney -Will hold Lisinopril -Will decrease Lasix to 20mg daily -Will attempt to avoid contrast agents -Nephrology consulted (5) Anemia ICD Codes: D64.9 - Anemia, unspecified Status: Acute Plan: Impression: Hemoglobin of 8.6 on admission-> 8 (10/12) -> 7.4 (10/13) -> 7.7 (10/14); stable since last hospitalization. Suspect secondary to anemia of chronic disease -Continue oral iron therapy -Will plan to transfuse if Hgb <7 (6) Hypertension Status: Chronic Plan: Blood pressure 161/74 arrival. Intermittent HTN since admission -Continue home Norvasc and lisinopril (7) Diabetes mellitus ICD Codes: E11.9 - Type 2 diabetes mellitus without complications Status: Chronic Plan: Patient on home Levemir and sliding scale Hemoglobin A1c 12.2 on last admission -Regular accuchecks -Continue home Levemir -Low dose sliding scale novolog (8) Dyslipidemia ICD Codes: E78.5 - Dyslipidemia Status: Chronic Plan: Continue home pravastatin (9) FEN Status: Acute Plan: Fluids: tolerating PO, cautious while pt fluid overloaded Electrolytes: wnl, continue to monitor Nutrition: diabetic diet DVT ppx: Heparin 5000u q12H (Austin Thompson MD, R3) Problem Qualifiers (1) Sepsis: Qualified Codes: A41.9 - Sepsis, unspecified organism (2) Anemia: Qualified Codes: D64.9 - Anemia, unspecified Austin Thompson MD, R3 Oct 14, 2017 16:31 French Salter MD Oct 21, 2017 17:33
--- NOTE | 2017-10-14 17:15 | RADRPT ---
EXAM DATE/TIME: 10/14/2017 16:58 [facility] COMPARISON: CHEST PA & LAT, October 11, 2017, 11:49. CHEST SINGLE AP, October 10, 2017, 19:11. INDICATIONS : Short of breath. MEDICAL HISTORY : Hypercholesterolemia. MRSA. Diabetes. SURGICAL HISTORY : section. Renal stent. Abscess drain, right kidney. ENCOUNTER: Subsequent ACUITY: 4 - 6 days PAIN SCORE: 0/10 LOCATION: Bilateral chest FINDINGS: A single AP erect view of the chest was obtained and demonstrates patchy opacity at the left lung bas e with blunting of the left costophrenic angle. There is mild thickening of the minor fissure on the right. The heart size remains at the upper limits of normal. There is no perihilar edema. Overlying o xygen tubing and electrocardiogram leads are present. The bony thorax remains intact. CONCLUSION: Left lower lobe opacity and left effusion. Eric Petty MD on October 14, 2017 at 17:12 Board Certified Radiologist. This report was verified electronically.
--- NOTE | 2017-10-14 17:16 | HHI.NPPN ---
Subjective History of Present Illness 67-year-old female with a past medical history of hypertension, diabetes mellitus, history of pyelonephritis with perinephric abscess who was admitted with complaint of worsening shortness of breath. I was called to see the patient because of elevated BUN and creatinine. The patient has a history of acute kidney injury before, and she was seen by me when she was admitted last month and had acute kidney injury. Additional Remarks Patient is alert, has mild lower abd. pain, no SOB. Review of Systems General Constitutional: Fatigue Cardiovascular Cardiac: [place] Gastrointestinal Gastrointestinal: Abdominal Pain, Nausea & Vomiting Objective Data Data 10/14/17 10/15/17 19:00 07:00 Intake Total 100 ml Balance 100 ml IV Total 100 ml Vital Signs Date Time Temp Pulse Resp B/P (MAP) Pulse Ox O2 Delivery O2 Flow Rate FiO2 10/14/17 16:23 18 10/14/17 15:52 93 Nasal Cannula 2.00 10/14/17 12:00 98.6 70 18 110/60 (77) 93 10/14/17 11:00 Nasal Cannula 2.00 10/14/17 08:00 Nasal Cannula 2.00 10/14/17 08:00 98.3 68 18 111/62 (78) 92 10/14/17 04:00 98.5 65 21 104/56 (72) 98 10/14/17 00:00 98.0 72 19 136/70 (92) 99 10/13/17 20:00 98.4 67 19 144/67 (92) 96 10/13/17 20:00 Nasal Cannula 2.00 10/13/17 19:48 97 Nasal Cannula -: 10/14/17 0630 10/14/17 0620 Physical Exam General Appearance: No Acute Distress, Comfortable Eyes Eye Exam: Pupils Equal Throat Throat Exam: Oral Mucosa [place] & Moist Neck Neck Exam: Neck Supple Pulmonary Resp Exam: Breath Sounds Equal, No Distress, Rhonchi, Decreased Bases Cardiology CV Exam: Regular, Normal Sinus Rhythm Gastrointestinal/Abdomen GI Exam: Soft, Non-Tender, Bowel Sounds Present, Distended Extremeties Extremities Exam: Trace Edema Neurologic Neuro Exam: Alert, Awake, Oriented Psychiatric Psych Exam: Appropriate Responses Assessment/Plan Assessment Summary: DELLA/Acute Renal Failure Problem List: (1) Essential hypertension ICD Codes: I10 - Essential hypertension Status: Acute (2) Obesity (BMI 30.0-34.9) ICD Codes: E66.9 - Obesity (BMI 30.0-34.9) Status: Chronic (3) Leukocytosis ICD Codes: D72.829 - Leukocytosis Status: Acute (4) Diabetes mellitus ICD Codes: E11.9 - Type 2 diabetes mellitus without complications Status: Chronic (5) Anemia ICD Codes: D64.9 - Anemia, unspecified Status: Acute (6) UTI (urinary tract infection) ICD Codes: N39.0 - Urinary tract infection, site not specified (7) Pyelonephritis ICD Codes: N12 - Pyelonephritis Status: Acute (8) DELLA (acute kidney injury) ICD Codes: N17.9 - Acute kidney failure, unspecified Status: Acute Plan Patient has mild chronic kidney disease and develop DELLA. Most likely ATN due to infection. Has been non oliguric. BP is stable. Creatinine increase to 4.5. Continue antibiotics, on Levaquin and Zyvox. Follow the culture results.Avoid Nephrotoxins. Problem Qualifiers (1) Leukocytosis: Qualified Codes: D72.829 - Elevated white blood cell count, unspecified (2) Anemia: Qualified Codes: D64.9 - Anemia, unspecified (3) UTI (urinary tract infection): Qualified Codes: N39.0 - Urinary tract infection, site not specified Pita Huitron MD Oct 14, 2017 17:16
[2017-10-14] MEDS: AZITHROMYCIN 250 MG TAB PO SCH (17:49)
[2017-10-14 18:38] LABS: BLOOD GAS BASE EXCESS -0.8 mmol/L (-2-2); BLOOD GAS CARBOXYHEMOGLOBIN 1.2 % (0-4); BLOOD GAS HCO3 24 mmol/L (22-26); BLOOD GAS METHEMOGLOBIN 0.9 % (0-2); BLOOD GAS O2 HGB SATURATION 96 % (90-100); BLOOD GAS OXYGEN CONTENT 10.5 Vol % (12.0-20.0); BLOOD GAS PCO2 42 mmHg (38-42); BLOOD GAS PO2 110 mmHg (61-120); BLOOD GAS TOTAL HGB 7.7 G/DL (12.0-16.0); CRITICAL VALUE NO; DRAW SITE LT RADIAL; LITER FLOW 2 L/M; OXYGEN DEVICE NASAL CANNULA; TEMP CORR TO 98.6
[2017-10-14 18:39] LABS: NUMBER OF ARTERIAL PUNCTURES 1; STAT NO; ULNAR PULSE PRESENT
--- NOTE | 2017-10-14 18:53 | MB ---
cc: Callie SLATER M.D. DATE OF CONSULTATION: 10/14/2017. REASON FOR CONSULTATION: Respiratory insufficiency and pulmonary infiltrates. HISTORY OF PRESENT ILLNESS: This is a 67-year-old white female who is overweight and has a history of diabetes, hypertension and recent hospital stay with pyelonephritis who was readmitted with shortness of breath, wheezing and hypoxemia. The patient apparently had mild pulmonary edema and bibasilar effusions with infiltrates and has had a previous history for diabetes mellitus and hypertension and has had bronchitis in the remote past. She denies any significant history of smoking in the past and recently received IV antibiotic therapy and also had a stent placed for pyelonephritis and a nephrostomy tube has been had been placed which was removed since this admission. The patient has been treated for pulmonary edema and a CT angiogram that was done on 10/10 showed no evidence of pulmonary emboli but had moderate pleural effusions with atelectasis and consolidation for that injury. The patient has been on IV antibiotic therapy and presently on Zosyn and Zithromax and urine cultures have been sent and apparently she was found to have Enterococcus VRE and an infectious disease consultation is being requested. PAST MEDICAL HISTORY: The patient's past medical history has included: 1. History for urinary tract infections. 2. Pyelonephritis. 3. History of perinephric abscess. 4. History of diabetes mellitus. 5. Hypertension. 6. Hyperlipidemia. PAST SURGICAL HISTORY: Her surgical history includes: 1. section. HABITS: The patient does not smoke. No history of alcohol. ALLERGIES: 1. METFORMIN. 2. CLONIDINE. MEDICATION LIST: 1. Levemir injections 10 units at bedtime. 2. Prevacid 40 milligrams at bedtime. 3. Levaquin 750 milligrams daily. 4. Amlodipine 10 milligrams daily. 5. Gemfibrozil 600 milligrams twice a day. 6. Lisinopril 40 milligrams a day. FAMILY HISTORY: Noncontributory. REVIEW OF SYSTEMS: The patient is overweight. She has leg swelling. She has lower abdominal discomfort. She has headaches. She has cough and postnasal drip. She has wheezing. She has some epigastric distress and nausea. The other review of systems is negative. PHYSICAL EXAMINATION: GENERAL: This is a moderately obese middle-aged white female who is alert, anxious and in no acute distress. VITAL SIGNS: Blood pressure is 128/80, pulse is 82, respirations are 16, temperature 98.2. HEAD, EYES, EARS, NOSE, THROAT: Head normocephalic. The pupils are reactive and equal. Tongue is moist. Throat is clear. Nasal mucosa injected. NECK: No bruits. No thyroid enlargement. No lymphadenopathy. CHEST: Equal movements with percussion note resonant throughout with basilar crackles with occasional wheeze bilaterally. HEART: The heart sounds are irregular. S1 and S2 with no murmur. ABDOMEN: Abdomen soft and protuberant with mild epigastric tenderness. Bowel sounds are active. No organomegaly. EXTREMITIES: Edema 1+ with decreased pulses. NEUROLOGIC: Reflexes are 1+ with no gross motor deficits. Cranial nerves are grossly intact. RECTAL: Rectal exam is deferred. SKIN: No lesions. IMPRESSION: 1. Bibasilar pulmonary infiltrates with pleural effusion. 2. Pulmonary edema, resolving. 3. Urinary tract infection and VRE. 4. Hypertension. 5. Diabetes mellitus type 2. 6. History of pyelonephritis. PLAN: 1. The patient has been placed on nebulized DuoNeb solution four times a day and incentive spirometry every 2 hours. 2. We will get a bedside pulmonary function study and a blood gas study. 3. The patient's oxygen will be weaned down to maintain saturations over 92%. 4. Antibiotic coverage will be continued as ordered. 5. The patient will probably need diuretics to clear some fluid and potassium replacement therapy. 6. Ultrasound examination of the chest will be obtained to evaluate the pleural effusions, and if there is significant effusion, we will do a thoracentesis and send the fluid for studies. Thank you for this consultation. MD ITZEL Ansari/JULITO /6:24 PM /6:38 PM
[2017-10-14] MEDS: RESP: ALBUTEROL 2.5 MG/IPRATROPIUM 0.5 MG NEB (SCH) NEB (19:55)
[2017-10-14] MEDS: INSULIN DETEMIR 100 UNITS/ML VIAL SQ SCH (21:00)
[2017-10-14] MEDS: PRAVASTATIN SOD 40 MG TAB PO SCH (21:25)
--- NOTE | 2017-10-14 21:52 | RADRPT ---
EXAM DATE/TIME: 10/14/2017 20:27 [facility] COMPARISON: No previous studies available for comparison. INDICATIONS : Pleural effusion. MEDICAL HISTORY : Hypercholesterolemia. Methicillin-resistant Staphylococcus aureus. Numbness bilateral feet. Diabete s. Measles. SURGICAL HISTORY : section. Right kidney stent. ENCOUNTER: Initial ACUITY: 1 day PAIN SCORE: 2/10 LOCATION: Left chest MEASUREMENTS: SKIN TO PARIETAL PLEURA: 2.6 cm SKIN TO MAX SAFE DEPTH: 3.8 cm ESTIMATED FLUID VOLUME: 408 cc FLUID COMPOSITION: simple FINDINGS: Pleural effusion as above. A iftikhar was placed on the skin surface superficial to the pleural fluid col lection. CONCLUSION: Left pleural effusion. Maycol Nance MD on October 14, 2017 at 21:50 Board Certified Radiologist. This report was verified electronically.
--- NOTE | 2017-10-14 21:53 | RADRPT ---
EXAM DATE/TIME: 10/14/2017 20:30 [place] COMPARISON: No previous studies available for comparison. INDICATIONS : Pleural effusion. MEDICAL HISTORY : Hypercholesterolemia. Methicillin-resistant Staphylococcus aureus. Numbness bilateral feet. Diabete s. Measles. SURGICAL HISTORY : section. Right kidney stent. ENCOUNTER: Initial ACUITY: 1 day PAIN SCORE: 2/10 LOCATION: Right chest MEASUREMENTS: SKIN TO PARIETAL PLEURA: 2.7 cm SKIN TO MAX SAFE DEPTH: 3.4 cm ESTIMATED FLUID VOLUME: 249 cc FLUID COMPOSITION: simple FINDINGS: Pleural effusion as above. A iftikhar was placed on the skin surface superficial to the pleural fluid col lection. CONCLUSION: Mild right pleural effusion Maycol Nance MD on October 14, 2017 at 21:51 Board Certified Radiologist. This report was verified electronically.
[2017-10-14 23:21] LABS: BLOOD, URINE SMALL (NEG); GLUCOSE,URINE NEG (NEG); KETONE, URINE NEG (NEG); NITRITE,URINE NEG (NEG); PH, URINE 5.5 (5.0-8.5); URINE COLOR LIGHT-YELLOW (YELLW/STRAW)
[2017-10-14 23:47] LABS: BACTERIA, URINE OCC /hpf; COMMENT (UR) CULTURE INDICATED; CULTURE IF INDICATED CULTURE INDICATED; RBC, URINE 0-3 /hpf (0-3); SQUAMOUS EPITHELIAL CELL URINE > 8 /hpf (0-5)
[2017-10-15] VITALS (10 sets, daily range): BP systolic 120–167; BP diastolic 58–77; PULSE 62–79; RESP 18–21; TEMP 98.3–98.8; O2SAT 94–98
[2017-10-15] MEDS: PIPERACIL-TAZO 2.25 GM PREMIX 50 ML IV SCH ×2 (03:18→08:21)
[2017-10-15] MEDS: GEMFIBROZIL 600 MG TAB PO SCH ×2 (06:02→16:20)
[2017-10-15 07:47] LABS: BICARBONATE 23.6 MEQ/L (21.0-32.0); POTASSIUM 4.5 MEQ/L (3.5-5.1)
[2017-10-15 07:50] LABS: AUTOMATED NEUTROPHIL # 6.2 TH/MM3 (1.8-7.7); BASOPHIL # 0.1 TH/MM3 (0-0.2); BASOPHIL % 1.1 % (0.0-2.0); EOSINOPHIL # 0.5 TH/MM3 (0-0.4); HEMATOCRIT 25.4 % (35.0-46.0); HEMO FLAGS DIFF FINAL; LYMPH % 24.8 % (9.0-44.0); LYMPHOCYTE # 2.6 TH/MM3 (1.0-4.8); MEAN CELL VOLUME 87.3 FL (80.0-100.0); MEAN CORPUSCULAR HEMOGLOBIN 28.2 PG (27.0-34.0); MEAN CORPUSCULAR HGB CONC 32.3 % (32.0-36.0); MONO % 9.9 % (0.0-8.0); NEUT % 59.2 % (16.0-70.0); PLATELET COUNT 618 TH/MM3 (150-450); RED BLOOD COUNT 2.91 MIL/MM3 (4.00-5.30); RED CELL DISTRIBUTION WIDTH 14.3 % (11.6-17.2); WHITE BLOOD COUNT 10.5 TH/MM3 (4.0-11.0)
[2017-10-15] MEDS: INSULIN ASPART SUPPLEMENTAL SCALE SQ SCH ×4 (08:00→21:00)
[2017-10-15] MEDS: RESP: ALBUTEROL 2.5 MG/IPRATROPIUM 0.5 MG NEB (SCH) NEB ×4 (08:08→19:53)
[2017-10-15] MEDS: SODIUM CHLORIDE 0.9% FLUSH 10 ML FLUSH IV FLUSH SCH ×2 (08:21→21:22)
[2017-10-15] MEDS: POTASSIUM CHLORIDE 20 MEQ CONTROLLED RELEASE TAB PO SCH (08:21)
[2017-10-15] MEDS: LACTOBACILLUS ACIDOPHILUS TAB PO SCH ×3 (08:21→21:21)
[2017-10-15] MEDS: LABETALOL HCL 100 MG TAB PO SCH ×2 (08:21→21:21)
[2017-10-15] MEDS: ASPIRIN EC 325 MG TABEC PO SCH (08:21)
[2017-10-15] MEDS: DOCUSATE SODIUM 50 MG/SENNA 8.6 MG TAB PO SCH ×2 (08:21→21:21)
[2017-10-15] MEDS: MUPIROCIN 2% OINT 1 APPLIC/GM SYR EACH NARE SCH ×2 (08:22→21:21)
--- NOTE | 2017-10-15 09:45 | PD.CONS ---
History of Present Illness Service Infectious disease Consult Requested By Dr Jay Wheeler Reason for Consult Evaluate patient with UTI Primary Care Physician Susanna Mcbride MD Diagnoses: History of Present Illness Patient seen and examined. Records reviewed. Patient is a 67-year-old female, known to me from her last hospitalization, came from the rehabilitation facility, brought into the hospital for evaluation of shortness of breath. She was also found to have fevers up to 103. She also had mentioned pain in her right lower back. 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 She had Escherichia coli in the blood and Escherichia coli in the urine. She underwent cystoscopy and placement of a ureteric stent. Patient however did not improved, and developed a perinephric fluid collection, underwent placement of a percutaneous drain to the right kidney. A culture from that also grew Escherichia coli. Patient improved from that infection, and she was switched over to oral Levaquin after being on IV antibiotic during her hospitalization. The plan was for her to get Levaquin for another 28 days, and urology was supposed to do follow-up and do imaging studies sleep duration she also had some shortness of breath which was felt to be related to fluid. She was better from her breathing problem when she was discharged to the rehabilitation facility. She came back this time complaining of shortness of breath. Patient was diuresed, and currently states her breathing is better. She was also found to have urinary tract infection, and her urine culture grew VRE. She has not been febrile. Her initial WBC was 22,000, and it's down to normal. Patient has been on IV Zosyn, and was switched to Zyvox yesterday. He is not complaining of any dysuria. Of note is that her renal function has been progressively worsening. Urine for eosinophils are positive. CT of the abdomen and pelvis showing presence of air in the right kidney which has improved, but there is a new perinephric fluid collection that was seen. There is also some findings of UTI on the left kidney. She is also complaining of pain on her right lower back. A shunt has very minimal congestion or cough. Infectious disease consultation has been requested to evaluate the patient. Review of Systems Constitutional: COMPLAINS OF: Fever, Change in appetite, DENIES: Chills Eyes: DENIES: Eye pain Ears, nose, mouth, throat: DENIES: Nasal discharge, Oral lesions, Throat pain, Ear Pain Respiratory: COMPLAINS OF: Cough, Shortness of breath, DENIES: Hemoptysis, Sputum production Cardiovascular: COMPLAINS OF: Chest pain, Lower Extremity Edema, DENIES: Dyspnea on Exertion Gastrointestinal: COMPLAINS OF: Nausea, Vomiting, DENIES: Abdominal pain, Diarrhea, Difficulty Swallowing Genitourinary: DENIES: Urinary frequency, Hematuria, Dysuria Musculoskeletal: COMPLAINS OF: Back pain Integumentary: DENIES: Rash Hematologic/lymphatic: DENIES: Lymphadenopathy Neurologic: DENIES: Headache, Localized weakness Psychiatric: DENIES: Hallucinations Past Family Social History Allergies: Coded Allergies: metformin (Unverified Allergy, Severe, Numbness, 10/10/17) clonidine (Unverified Allergy, Unknown, 10/10/17) Past Medical History Diabetes Hypertension Hypertriglyceridemia CAD Previous episodes of UTI Recent 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 Reported Meds & Active Scripts Active Pravachol (Pravastatin) 40 Mg Tab 40 Mg PO HS Levemir Inj (Insulin Detemir) 1,000 unit/ 10 ML Vial 10 Units SQ HS Do not mix with any other Insulin. Novolog Inj (Insulin Aspart) 100 Unit/Ml Inj 100 Unit SQ ACHS SLIDING SCALE Oxycodone (Oxycodone HCl) 10 Mg Tab 10 Mg PO Q4H PRN Ferosul (Ferrous Sulfate) 325 Mg (65 Mg Iron) Tablet 325 Mg PO BID Levaquin (Levofloxacin) 750 Mg Tablet 750 Mg PO DAILY 28 Days Lisinopril 40 Mg Tab 40 Mg PO DAILY Amlodipine (Amlodipine Besylate) 10 Mg Tab 10 Mg PO DAILY Gemfibrozil 600 Mg Tab 300 Mg PO BIDAC Take 30 minutes prior to breakfast and dinner. Reported Aspirin DR (Aspirin) 81 Mg Tabdr 81 Mg PO DAILY Active Ordered Medications Zosyn Current Medications Medications (Trade) Dose Ordered Sig/Alisha Route Start Time Stop Time Status Last Admin (NS Flush) 2 ml UNSCH PRN IV FLUSH 10/10/17 23:30 (NS Flush) 2 ml BID IV FLUSH 10/11/17 09:00 10/15/17 08:21 (Tylenol) 650 mg Q4H PRN PO 10/10/17 23:30 10/11/17 23:07 (Zofran Inj) 4 mg Q6H PRN IVP 10/10/17 23:30 10/13/17 06:15 (Heparin Inj) 5,000 units Q12H SQ 10/12/17 00:00 10/14/17 22:48 (Narcan Inj) 0.4 mg UNSCH PRN IV PUSH 10/10/17 23:30 (Bridgette-Colace) 1 tab BID PO 10/11/17 09:00 10/15/17 08:21 (Milk Of Magnesia Liq) 30 ml Q12H PRN PO 10/10/17 23:30 (Senokot) 17.2 mg Q12H PRN PO 10/10/17 23:30 (Dulcolax Supp) 10 mg DAILY PRN RECTAL 10/10/17 23:30 (Lactulose Liq) 30 ml DAILY PRN PO 10/10/17 23:30 (Zithromax) 500 mg Q24H PO 10/11/17 19:00 10/14/17 17:49 (Norvasc) 10 mg DAILY PO 10/11/17 09:00 10/15/17 08:21 (Ferrous Sulfate) 325 mg BID PO 10/11/17 09:00 Future Hold 10/13/17 08:17 (Lopid) 300 mg BIDAC PO 10/11/17 07:00 10/15/17 06:02 (Levemir Inj) 10 units HS SQ 10/11/17 21:00 10/14/17 21:00 (Roxicodone) 10 mg Q4H PRN PO 10/10/17 23:30 10/15/17 06:03 (Pravachol) 40 mg HS PO 10/11/17 21:00 10/14/17 21:25 (Prinivil) 40 mg DAILY PO 10/11/17 09:00 Future Hold 10/12/17 09:27 (D50w (Vial) Inj) 50 ml UNSCH PRN IV PUSH 10/10/17 23:30 (Glucagon Inj) 1 mg UNSCH PRN OTHER 10/10/17 23:30 (NovoLOG SUPPLEMENTAL SCALE) 1 ACHS SLIDING SCALE SQ 10/11/17 08:00 10/13/17 22:19 (Pill Splitter) 1 ea UNSCH PRN OTHER 10/11/17 00:45 (Lactinex) 1 tab Q12HR PO 10/11/17 21:00 10/14/17 21:25 (KCl) 20 meq DAILY PO 10/12/17 09:00 10/15/17 08:21 (Apresoline) 10 mg Q8HR PRN PO 10/12/17 14:00 Piperacillin Sod/ Tazobactam Sod 50 ml @ 100 mls/hr Q6H IV 10/12/17 21:00 10/15/17 08:21 (Trandate) 100 mg Q12HR PO 10/12/17 21:00 10/15/17 08:21 (Bactroban Nasal 2% Oint) 1 applic BID EACH NARE 10/13/17 21:00 10/15/17 08:22 (Ecotrin Ec) 325 mg DAILY PO 10/15/17 09:00 10/15/17 08:21 (Duoneb Neb) 1 ampule QID NEB NEB 10/14/17 20:00 10/15/17 08:08 Family History Family history of diabetes, hypertension, and heart disease Social History Came from the assisted No smoking No alcohol abuse Oh illicit drugs Physical Exam Vital Signs Vital Signs Date Time Temp Pulse Resp B/P (MAP) Pulse Ox O2 Delivery O2 Flow Rate FiO2 10/15/17 08:11 97 Nasal Cannula 3.00 10/15/17 04:00 98.3 69 21 121/58 (79) 98 10/15/17 00:00 98.8 73 18 120/59 (79) 95 10/14/17 21:00 70 10/14/17 20:00 Nasal Cannula 3.00 10/14/17 20:00 99.2 73 19 116/59 (78) 97 10/14/17 16:23 18 10/14/17 15:52 93 Nasal Cannula 2.00 10/14/17 15:00 Nasal Cannula 2.00 10/14/17 12:00 98.6 70 18 110/60 (77) 93 10/14/17 11:00 Nasal Cannula 2.00 Physical Exam GENERAL: Patient is a well-nourished, well-developed female, awake and alert , not in respiratory distress. SKIN: Warm and dry. No generalized rash, no ecchymoses and no evidence of embolic lesions. HEAD: Atraumatic. Normocephalic. No temporal wasting, or tenderness. EYES: [place] conjunctiva. No petechia or hemorrhage. Pupils equal, round and reactive to light. Extraocular movements full and intact. No scleral icterus. No injection or drainage. EARS, NOSE AND THROAT: Nose without bleeding or purulent nasal discharge. No sinus tenderness. Mucous membranes pink and moist. No oral lesions noted. No exudate. No oral thrush. NECK: Trachea midline. Supple and not tender, no meningeal signs CARDIOVASCULAR: Regular rate and rhythm. No murmurs, rubs or gallops heard RESPIRATORY: Clear to auscultation. Breath sounds equal bilaterally. No rales , wheezing or rhonchi. Decreased breath sounds at the bases ABDOMEN: Soft, non-tender, nondistended. Bowel sounds present and normoactive. No guarding. No rebound. No organomegaly. BACK: No spine tenderness, tender on palpation R paraspinal area EXTREMITIES: No clubbing, cyanosis, or edema.No joint effusion, has good ROM. No calf tenderness. Well perfused and warm. NEUROLOGICAL: Awake and alert. Cranial nerves grossly intact. Motor grossly within normal limits. PSYCHIATRIC: Normal affect, calm and cooperative. LINE: No evidence of infection Laboratory Laboratory Tests Test 10/14/17 18:28 10/14/17 22:50 10/15/17 06:09 Blood Gas Puncture Site LT RADIAL Blood Gas Patient Temperature 98.6 Blood Gas HCO3 24 Blood Gas Base Excess -0.8 Blood Gas Oxygen Saturation 96 Arterial Blood pH 7.37 Arterial Blood Partial Pressure CO2 42 Arterial Blood Partial Pressure O2 110 Arterial Blood Oxygen Content 10.5 Arterial Blood Carboxyhemoglobin 1.2 Arterial Blood Methemoglobin 0.9 Blood Gas Hemoglobin 7.7 Oxygen Delivery Device NASAL CANNULA Blood Gas Liter Flow 2 Urine Color LIGHT-YELLOW Urine Turbidity HAZY Urine pH 5.5 Urine Specific [place] 1.013 Urine Protein 30 Urine Glucose (UA) NEG Urine Ketones NEG Urine Occult Blood SMALL Urine Nitrite NEG Urine Bilirubin NEG Urine Urobilinogen LESS THAN 2.0 Urine Leukocyte Esterase LARGE Urine RBC 0-3 Urine WBC 25-49 Urine Squamous Epithelial Cells > 8 Urine Bacteria OCC Microscopic Urinalysis Comment CULTURE INDICATED White Blood Count 10.5 Red Blood Count 2.91 Hemoglobin 8.2 Hematocrit 25.4 Mean Corpuscular Volume 87.3 Mean Corpuscular Hemoglobin 28.2 Mean Corpuscular Hemoglobin Concent 32.3 Red Cell Distribution Width 14.3 Platelet Count 618 Mean Platelet Volume 6.4 Neutrophils (%) (Auto) 59.2 Lymphocytes (%) (Auto) 24.8 Monocytes (%) (Auto) 9.9 Eosinophils (%) (Auto) 5.0 Basophils (%) (Auto) 1.1 Neutrophils # (Auto) 6.2 Lymphocytes # (Auto) 2.6 Monocytes # (Auto) 1.0 Eosinophils # (Auto) 0.5 Basophils # (Auto) 0.1 CBC Comment DIFF FINAL Differential Comment Blood Urea Nitrogen 35 Creatinine 4.69 Random Glucose 97 Calcium Level 8.4 Sodium Level 132 Potassium Level 4.5 Chloride Level 96 Carbon Dioxide Level 23.6 Anion Gap 12 Estimat Glomerular Filtration Rate 11 Date/Time Source Procedure Growth Status 10/10/17 19:10 Blood Peripheral Aerobic Blood Culture - Preliminary NO GROWTH IN 4 DAYS Resulted 10/10/17 19:10 Blood Peripheral Anaerobic Blood Culture - Preliminary NO GROWTH IN 4 DAYS Resulted 10/14/17 22:50 Urine Clean Catch Urine Culture Pending Received Result Diagram: 10/15/17 0609 10/15/17 0609 Imaging RADIOLOGY STUDIES/FILMS REVIEWED Chest X-Ray 10/14/17 0000 Signed Impressions: Service Date/Time: Saturday, October 14, 2017 16:58 - CONCLUSION: Left lower lobe opacity and left effusion. Eric Petty MD Chest Ultrasound 10/14/17 0000 Signed Impressions: Service Date/Time: Saturday, October 14, 2017 20:30 - CONCLUSION: Mild right pleural effusion Maycol Nance MD Abdomen/Pelvis CT 10/13/17 0000 Signed Impressions: Service Date/Time: September 09:53 - CONCLUSION: 1. Previously noted right perinephric drain has been removed. There has been interval development of small perinephric fluid collection status post drain removal. Perfusion defects are noted within both kidneys suggesting bilateral pyelonephritis (right much worse than left). 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 2. Anasarca is noted. 3. Stable mild to moderate-sized bilateral pleural effusions with adjacent compressive atelectasis. Daniel Portillo MD Renal Ultrasound 10/12/17 0000 Signed Impressions: Service Date/Time: Thursday, October 12, 2017 15:05 - CONCLUSION: 1. Total obscuration of the mid and lower pole of the right kidney secondary to air either within the kidney itself or directly adjacent to the kidney. No abscess seen involving the upper pole. 2. Left kidney is unremarkable. Corey Millan Jr., MD CT Angiography 10/10/17 1936 Signed Impressions: Service Date/Time: Tuesday, October 10, 2017 20:59 - CONCLUSION: 1. No pulmonary loss. 2. Mild to moderate bilateral pleural effusions with accompanying areas of atelectasis or consolidation of the lower lobes. 3. Mosaic perfusion pattern seen throughout the lungs likely related to mild edema. Maycol Nance MD Assessment and Plan Assessment and Plan IMPRESSION Episode of SOB, ?fluid, ?CHF - better - clinically does not like an infectious process Hx empyhsematous pyelonephritis and R perinephric abscess - S/P placement of ureteral stent and percutaneous drainage of the abscess, C/S with E coli UTI, with VRE Worsening renal function - urine (+) eos - ?due to infection - no evidence of obstruction on CT RECOMMENDATION D/C Zosyn Change back to Levaquin Stop Zithromax Zyvox Follow new C/S Renal following for worsening renal function Monitor progress I will follow along with you Thank you for this consultation Discussed Condition With Explained plan to the patient Ann Hoffmann MD Oct 15, 2017 09:45
[2017-10-15] MEDS: LINEZOLID 600 MG TAB PO SCH ×2 (10:43→21:21)
[2017-10-15] MEDS: LEVOFLOXACIN 500 MG TAB PO SCH (10:43)
[2017-10-15] MEDS: HEPARIN SODIUM - SQ 10,000 UNITS/ML VIAL SQ SCH ×2 (12:36→23:04)
--- NOTE | 2017-10-15 13:50 | HHI.FPPN ---
Subjective Remarks Mrs. Cohen was afebrile with stable vital signs overnight. Per EMR; 2 BM overnight, 100ml urine output overnight. Mrs. Cohen reports continued weakness today. Patient also reports continued lower abdominal pain. Patient has been urinating several times a day. Patient reports improvement in breathing overnight; no cough, sputum production, or chest pain. (Austin Thompson MD, R3) Objective Vitals Vital Signs Date Time Temp Pulse Resp B/P (MAP) Pulse Ox O2 Delivery O2 Flow Rate FiO2 10/15/17 08:20 97 Nasal Cannula 3.00 10/15/17 08:11 97 Nasal Cannula 3.00 10/15/17 08:00 62 10/15/17 04:00 98.3 69 21 121/58 (79) 98 10/15/17 00:00 98.8 73 18 120/59 (79) 95 10/14/17 21:00 70 10/14/17 20:00 Nasal Cannula 3.00 10/14/17 20:00 99.2 73 19 116/59 (78) 97 10/14/17 16:23 18 10/14/17 15:52 93 Nasal Cannula 2.00 10/14/17 15:00 Nasal Cannula 2.00 I/O 10/14/17 10/14/17 10/14/17 10/15/17 10/15/17 10/15/17 07:00 15:00 23:00 07:00 15:00 23:00 Intake Total 240 ml 50 ml 300 ml 660 ml 100 ml Output Total 400 ml 401 ml 650 ml Balance -160 ml 50 ml -101 ml 10 ml 100 ml Intake Oral 240 ml 250 ml 660 ml IV Total 50 ml 50 ml 100 ml Output Urine Total 400 ml 400 ml 650 ml Stool Total 1 ml # Bowel Movements 0 1 (Austin Thompson MD, R3) Result Diagram: 10/15/17 0609 10/15/17 0609 Imaging Last Impressions Chest X-Ray 10/14/17 0000 Signed Impressions: Service Date/Time: Saturday, October 14, 2017 16:58 - CONCLUSION: Left lower lobe opacity and left effusion. Eric Petty MD Chest Ultrasound 10/14/17 0000 Signed Impressions: Service Date/Time: Saturday, October 14, 2017 20:30 - CONCLUSION: Mild right pleural effusion Maycol Nance MD Abdomen/Pelvis CT 10/13/17 0000 Signed Impressions: Service Date/Time: September 09:53 - CONCLUSION: 1. Previously noted right perinephric drain has been removed. There has been interval development of small perinephric fluid collection status post drain removal. Perfusion defects are noted within both kidneys suggesting bilateral pyelonephritis (right much worse than left). 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 2. Anasarca is noted. 3. Stable mild to moderate-sized bilateral pleural effusions with adjacent compressive atelectasis. Daniel Portillo MD Renal Ultrasound 10/12/17 0000 Signed Impressions: Service Date/Time: Thursday, October 12, 2017 15:05 - CONCLUSION: 1. Total obscuration of the mid and lower pole of the right kidney secondary to air either within the kidney itself or directly adjacent to the kidney. No abscess seen involving the upper pole. 2. Left kidney is unremarkable. Corey Millan Jr., MD CT Angiography 10/10/171935 Signed Impressions: Service Date/Time: Tuesday, October 10, 2017 20:59 - CONCLUSION: 1. No pulmonary loss. 2. Mild to moderate bilateral pleural effusions with accompanying areas of atelectasis or consolidation of the lower lobes. 3. Mosaic perfusion pattern seen throughout the lungs likely related to mild edema. Maycol Nance MD Objective Remarks GENERAL: no apparent distress. SKIN: No lesions. EYES: Pupils equal round and reactive. EOM grossly intact CARDIOVASCULAR: Regular rate and rhythm without murmurs. Normal peripheral perfusion RESPIRATORY: Decreased breath sounds. Mild crackling to auscultation. Normal rate GASTROINTESTINAL: Abdomen soft, non-tender, nondistended. No guarding. MUSCULOSKELETAL: Minimal to no edema in bilateral lower extremities. NEUROLOGICAL: Awake and alert. Motor and sensory function grossly within normal limits. Normal speech. (Austin Thompson MD, R3) A/P Assessment and Plan 67-year-old female with history of diabetes and hypertension with recent hospitalization for pyelonephritis/renal abscess presented with shortness of breath: (Austin Thompson MD, R3) Attending Attestation Patient seen and examined with Dr Thompson. Case reviewed and discussed with the resident team. Agree with plan of care as discussed with me and documented in the resident note. (French Salter MD) Problem List: (1) Pyelonephritis ICD Codes: N12 - Pyelonephritis Status: Acute Plan: -ID Consulted: -Stop Zosyn, Azithromycin -Start Levaquin -Start Zyvox -Repeat urine culture/ UA -Urology consulted: -Continue IV antibiotics; consider ID consult -IV hydration -No surgical intervention needed at this time -Nephrology consulted for DELLA Impression: UA shows moderate leukocyte esterase, 33 WBC, occasional bacteria. Recent emphysematous pyelonephritis (ureteral stent placed; R nephrostomy tube placed 09/27 and subsequently removed 10/05/2017) Urine culture initially with group D enterococcus >100,000K units Renal US- total obscuration of mid/lower pole of R kidney secondary to air w/in kidney or adjacent to kidney CT A/P- prior nephritic drain removed; interval development of small perinephric fluid collection s/p drain removal. Perfusion defects w/in both kidneys suggesting bilateral pyelonephritis (R much worse than L). Persistent air w/in the R collecting system indicating emphysematous R pyelonephritis. Anasarca noted; stable mild/moderate bilateral pleural effusions with adjacent compressive atelectasis Urine culture- enterococcus; sensitive to Daptomycin, Linezolid, Nitrofurantoin but resistant to Ampicillin, Ciprofloxacin, PCN, tetracycline, Vancomycin (2) DELLA (acute kidney injury) ICD Codes: N17.9 - Acute kidney failure, unspecified Status: Acute Plan: Impression: Increasing Cr during hospitalization: Cr 1.124 on admission - > 2.56(10/12)-> 3.79 (10/13)-> 4.53 (10/14) -> 4.69 (10/15) Patient has been receiving lasix diuresis in response to suspected fluid overload Urine eosinophils 2-5 Renal US with air in/around R kidney -Will hold Lisinopril -Will decrease Lasix to 20mg daily -Will attempt to avoid contrast agents -Nephrology consulted (3) Shortness of breath ICD Codes: R06.02 - Shortness of breath Status: Acute Plan: -Continue to monitor O2 saturations, RR, and provide O2 PRN -Continue incentive spirometry -ID consulted -Will discontinue empiric treatment with Zosyn and Azithromycin and start Levaquin and Zyvox for pyelonephritis -Cardiology consulted -DC diuresis -Pulmonary etiologies of SOB work-up recommended due to recent reassuring echo -Start ASA 325mg daily due to PFO likely causing recent CVA -Will discuss PFO closure in the future -Pulmonology consulted -Continue duonebs, incentive spirometry -ABG, bedside PFTs -Maintain sats at 92% -US chest to evaluate effusions; will do thoracentesis if needed Patient with worsening shortness of breath for the last week, during hospitalization and worsening upon discharge. No history of lung disease. Fever at rehabilitation facility with reported Tmax 103F. Suspect possible pneumonia Chest x-ray: Cardiomegaly with interstitial edema and small pleural effusions. Mild CHF; significantly improved CTA: Mild to moderate bilateral pleural effusions with a combination areas of atelectasis or consolidation of the lower lobes. As a perfusion pattern likely related to mild edema. Echocardiogram on 09/19/17 shows ejection fraction of 65%; BNP ~1000 on admission Strep pneumo and Legionella urinary antigen negative Blood cultures negative x5 days Sputum cultures pending (4) Sepsis ICD Codes: A41.9 - Sepsis, unspecified organism Status: Resolved Plan: 10/12: WBC count 12.2 <- 14.7 (10/11). Stable VS with resolution of tachycardia and tachypnea 10/14: Decreasing leukocytosis (WBC 12.2 10/13-> 11.2 10/14); stable vital signs 10/15: Stable vital signs. Leukocytosis resolved Continue empiric antibiotic therapy: -Zosyn 4.5g q6H -Azithromycin 500mg daily Patient met SIRS criteria with tachycardia (HR 102) and tachypnea (RR) 22 on admission, WBC 22.4. Likely source of infection is suspected pulmonary etiology such as pneumonia; suspect that UTI is less likely due to lack of urinary symptoms, lack of back pain, and closure of nephrostomy tube site. Lactic acid 1.1. No signs of organ dysfunction. -Blood cultures negative x2 days -Urine culture pending: Group D enterococcus -Resistant to Ampicillin, Ciprofloxacin, PCN, tetracycline, Vancomycin (5) Anemia ICD Codes: D64.9 - Anemia, unspecified Status: Acute Plan: Impression: Hemoglobin of 8.6 on admission-> 8 (10/12) -> 7.4 (10/13) -> 7.7 (11/17) -> 8.2 (10/15); stable since last hospitalization. Suspect secondary to anemia of chronic disease -Continue oral iron therapy -Will plan to transfuse if Hgb <7 (6) Hypertension Status: Chronic Plan: Blood pressure 161/74 arrival. Intermittent HTN since admission -Continue home Norvasc and lisinopril (7) Diabetes mellitus ICD Codes: E11.9 - Type 2 diabetes mellitus without complications Status: Chronic Plan: Patient on home Levemir and sliding scale Hemoglobin A1c 12.2 on last admission -Regular accuchecks -Continue home Levemir -Low dose sliding scale novolog (8) Dyslipidemia ICD Codes: E78.5 - Dyslipidemia Status: Chronic Plan: Continue home pravastatin (9) FEN Status: Acute Plan: Fluids: tolerating PO, cautious while pt fluid overloaded Electrolytes: wnl, continue to monitor Nutrition: diabetic diet DVT ppx: Heparin 5000u q12H (Austin Thompson MD, R3) Problem Qualifiers (1) Sepsis: Qualified Codes: A41.9 - Sepsis, unspecified organism (2) Anemia: Qualified Codes: D64.9 - Anemia, unspecified Austin Thompson MD, R3 Oct 15, 2017 13:50 French Salter MD Oct 21, 2017 17:40
--- NOTE | 2017-10-15 16:26 | HHI.NPPN ---
Subjective Additional Remarks Feels tired today Objective Data Data 10/15/17 10/16/17 19:00 07:00 Intake Total 100 ml Balance 100 ml IV Total 100 ml Vital Signs Date Time Temp Pulse Resp B/P (MAP) Pulse Ox O2 Delivery O2 Flow Rate FiO2 10/15/17 16:02 70 10/15/17 12:00 68 10/15/17 12:00 98.6 67 20 130/60 (83) 95 10/15/17 08:20 97 Nasal Cannula 3.00 10/15/17 08:11 97 Nasal Cannula 3.00 10/15/17 08:00 62 10/15/17 08:00 98.5 70 20 147/67 (93) 98 10/15/17 04:00 98.3 69 21 121/58 (79) 98 10/15/17 00:00 98.8 73 18 120/59 (79) 95 10/14/17 21:00 70 10/14/17 20:00 Nasal Cannula 3.00 10/14/17 20:00 99.2 73 19 116/59 (78) 97 10/14/17 16:23 18 -: 10/15/17 0609 10/15/17 0609 Microbiology 10/14/17 Urine Culture - Preliminary, Resulted NO GROWTH IN 24 HOURS. Physical Exam General Appearance: Well Developed, Well Nourished, No Acute Distress Throat Throat Exam: Oral Mucosa [place] & Moist Neck Neck Exam: Neck Supple Pulmonary Resp Exam: Clear Bilaterally Cardiology CV Exam: Regular, Normal Sinus Rhythm Gastrointestinal/Abdomen GI Exam: Soft, Non-Tender, Bowel Sounds Present Musculoskeletal MS Exam: Joints Intact, Normal Gait Integumentary Skin Exam: Dry, Intact Extremeties Extremities Exam: No Edema Neurologic Neuro Exam: Alert, Awake, Oriented, Speech Clear Assessment/Plan Problem List: (1) DELLA (acute kidney injury) ICD Codes: N17.9 - Acute kidney failure, unspecified Status: Acute (2) Pyelonephritis ICD Codes: N12 - Pyelonephritis Status: Acute (3) Sepsis ICD Codes: A41.9 - Sepsis, unspecified organism Status: Resolved (4) Hypertension Status: Chronic Plan ASSESSMENT 1. Urinary tract infection and pyelonephritis. 2. Acute kidney injury. 3. Hypertension. 4. Fluid overload with anasarca and pleural effusion. 5. Severe anemia. History of emphysematous pyelonephritis, previous ureteral stent and abscess drainige. Presents on this admission with bilateral pylonephritis and Group D enterococcus On Zyvox and Levaquin, following with ID. DELLA with non-oliguric ATN from infection or pyelonephritis. The air in and around the kidney could be from the retroperitoneal abscess drainage which was done during last admission. 0-2 urine eosinophills present, with possibility of interstitial nephritis/ infection. Creatinine has been trending higher; however improving UOP with 1L UOP/24 hours. Creatinine 1.1 on admission and up to 4.69 now. K+, HCO3 stable. Patient has been on lasix PO for anasarca, which was stopped with DELLA. Lisinopril was held. Tolerating PO intake. Continue to monitor. May need HD if worsening labs/ volume status - however incresaed UOP is encouraging. Continue to monitor. Renal dose medications and avoid nephrotoxins as possible. Problem Qualifiers (1) Sepsis: Qualified Codes: A41.9 - Sepsis, unspecified organism Gerard Washington MD Oct 15, 2017 16:26
[2017-10-15] MEDS: AZITHROMYCIN 250 MG TAB PO SCH (18:10)
[2017-10-15] MEDS: PRAVASTATIN SOD 40 MG TAB PO SCH (21:21)
[2017-10-15] MEDS: INSULIN DETEMIR 100 UNITS/ML VIAL SQ SCH (21:21)
[2017-10-16] VITALS (8 sets, daily range): BP systolic 119–157; BP diastolic 60–65; PULSE 68–76; RESP 16–20; TEMP 98–98.7; O2SAT 93–97
[2017-10-16] MEDS: GEMFIBROZIL 600 MG TAB PO SCH ×2 (05:43→10:32)
[2017-10-16] MEDS: INSULIN ASPART SUPPLEMENTAL SCALE SQ SCH ×4 (08:00→20:34)
[2017-10-16] MEDS: RESP: ALBUTEROL 2.5 MG/IPRATROPIUM 0.5 MG NEB (SCH) NEB ×4 (08:19→21:03)
[2017-10-16] MEDS: SODIUM CHLORIDE 0.9% FLUSH 10 ML FLUSH IV FLUSH SCH ×2 (09:00→20:33)
[2017-10-16 09:33] LABS: HEMATOCRIT 25.3 % (35.0-46.0); MEAN CELL VOLUME 85.5 FL (80.0-100.0); MEAN CORPUSCULAR HGB CONC 32.8 % (32.0-36.0); PLATELET COUNT 662 TH/MM3 (150-450); RED BLOOD COUNT 2.96 MIL/MM3 (4.00-5.30); RED CELL DISTRIBUTION WIDTH 14.4 % (11.6-17.2); WHITE BLOOD COUNT 12.9 TH/MM3 (4.0-11.0)
[2017-10-16 09:45] LABS: HEMO FLAGS AUTO DIFF
[2017-10-16 09:57] LABS: POTASSIUM 4.6 MEQ/L (3.5-5.1)
[2017-10-16] MEDS: FERROUS SULFATE 325 MG (65 MG ELEMENTAL IRON) TAB PO SCH ×2 (10:22→20:32)
[2017-10-16] MEDS: DOCUSATE SODIUM 50 MG/SENNA 8.6 MG TAB PO SCH ×2 (10:22→20:32)
[2017-10-16] MEDS: MUPIROCIN 2% OINT 1 APPLIC/GM SYR EACH NARE SCH ×2 (10:22→20:33)
[2017-10-16] MEDS: LACTOBACILLUS ACIDOPHILUS TAB PO SCH ×2 (10:23→20:31)
[2017-10-16] MEDS: ASPIRIN EC 325 MG TABEC PO SCH (10:23)
[2017-10-16] MEDS: LABETALOL HCL 100 MG TAB PO SCH ×2 (10:23→20:32)
[2017-10-16] MEDS: LINEZOLID 600 MG TAB PO SCH ×2 (10:25→20:31)
[2017-10-16] MEDS: HEPARIN SODIUM - SQ 10,000 UNITS/ML VIAL SQ SCH ×2 (10:31→23:51)
[2017-10-16] MEDS: ACETAMINOPHEN 325 MG TAB PO SCH ×2 (10:32→20:32)
[2017-10-16 10:41] LABS: EOSINOPHILS 3 % (0-4); NEUTROPHIL # MANUAL DIFF 8.6 TH/MM3 (1.8-7.7); POLYS (SEG NEUTROPHILS) 67 % (16-70); WBC DIFF SAMPLE 100
[2017-10-16 10:42] LABS: PLATELET ESTIMATE SMEAR HIGH (NORMAL); PLATELET MORPHOLOGY NORMAL (NORMAL); SCAN/DIFF FINAL DIFF MANUAL
--- NOTE | 2017-10-16 11:16 | HHI.IDPN ---
Subjective Subjective Remarks Patient is a 67-year-old female, known to me from her last hospitalization, came from the rehabilitation facility, brought into the hospital for evaluation of shortness of breath. She was also found to have fevers up to 103. She also had mentioned pain in her right lower back. 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 She had Escherichia coli in the blood and Escherichia coli in the urine. She underwent cystoscopy and placement of a ureteric stent. Patient however did not improved, and developed a perinephric fluid collection, underwent placement of a percutaneous drain to the right kidney. A culture from that also grew Escherichia coli. Patient improved from that infection, and she was switched over to oral Levaquin after being on IV antibiotic during her hospitalization. The plan was for her to get Levaquin for another 28 days, and urology was supposed to do follow-up and do imaging studies sleep duration she also had some shortness of breath which was felt to be related to fluid. She was better from her breathing problem when she was discharged to the rehabilitation facility. She came back this time complaining of shortness of breath. Patient was diuresed, and currently states her breathing is better. She was also found to have urinary tract infection, and her urine culture grew VRE. She has not been febrile. Her initial WBC was 22,000, and it's down to normal. Patient has been on IV Zosyn, and was switched to Zyvox yesterday. He is not complaining of any dysuria. Of note is that her renal function has been progressively worsening. Urine for eosinophils are positive. CT of the abdomen and pelvis showing presence of air in the right kidney which has improved, but there is a new perinephric fluid collection that was seen. There is also some findings of UTI on the left kidney. She is also complaining of pain on her right lower back. A shunt has very minimal congestion or cough. Infectious disease consultation has been requested to evaluate the patient. Notes reviewed She's afebrile Some ointment was placed in her nares and she is experiencing some shortness of breath. Back pain on the right distal main Creatinine slightly lower Has good urine output Repeat urine culture before Zyvox started is negative so far Antibiotics Zyvox Levaquin Lines PIV Past Medical History Diabetes Hypertension Hypertriglyceridemia CAD Previous episodes of UTI Recent episode of emphysematous pyelonephritis with perinephric abscess Past Surgical History Cystoscopy and ureteral stent to the right Percutaneous drainage of a perinephric abscess section Allergies: Coded Allergies: metformin (Unverified Allergy, Severe, Numbness, 10/10/17) clonidine (Unverified Allergy, Unknown, 10/10/17) Objective . Vital Signs Date Time Temp Pulse Resp B/P (MAP) Pulse Ox O2 Delivery O2 Flow Rate FiO2 10/16/17 08:19 97 Nasal Cannula 2.00 10/16/17 04:00 98.5 70 16 134/61 (85) 96 10/16/17 00:00 98.3 70 16 119/62 (81) 96 10/15/17 20:08 70 10/15/17 20:00 Nasal Cannula 2.00 10/15/17 20:00 98.5 75 18 136/63 (87) 95 10/15/17 19:53 94 Nasal Cannula 2.00 10/15/17 16:02 70 10/15/17 16:00 98.7 79 20 167/77 (107) 94 10/15/17 12:00 68 10/15/17 12:00 98.6 67 20 130/60 (83) 95 . Laboratory Tests Test 10/15/17 06:09 10/16/17 09:20 White Blood Count 10.5 TH/MM3 12.9 TH/MM3 Red Blood Count 2.91 MIL/MM3 2.96 MIL/MM3 Hemoglobin 8.2 GM/DL 8.3 GM/DL Hematocrit 25.4 % 25.3 % Mean Corpuscular Volume 87.3 FL 85.5 FL Mean Corpuscular Hemoglobin 28.2 PG 28.0 PG Mean Corpuscular Hemoglobin Concent 32.3 % 32.8 % Red Cell Distribution Width 14.3 % 14.4 % Platelet Count 618 TH/MM3 662 TH/MM3 Mean Platelet Volume 6.4 FL 5.9 FL Neutrophils (%) (Auto) 59.2 % Lymphocytes (%) (Auto) 24.8 % Monocytes (%) (Auto) 9.9 % Eosinophils (%) (Auto) 5.0 % Basophils (%) (Auto) 1.1 % Neutrophils # (Auto) 6.2 TH/MM3 Lymphocytes # (Auto) 2.6 TH/MM3 Monocytes # (Auto) 1.0 TH/MM3 Eosinophils # (Auto) 0.5 TH/MM3 Basophils # (Auto) 0.1 TH/MM3 CBC Comment DIFF FINAL AUTO DIFF Differential Comment FINAL DIFF MANUAL Differential Total Cells Counted 100 Neutrophils % (Manual) 67 % Lymphocytes % 21 % Monocytes % 9 % Eosinophils % 3 % Neutrophils # (Manual) 8.6 TH/MM3 Platelet Estimate HIGH Platelet Morphology Comment NORMAL Red Cell Morphology Comment NORMAL Laboratory Tests Test 10/15/17 06:09 10/16/17 09:20 Blood Urea Nitrogen 35 MG/DL 31 MG/DL Creatinine 4.69 MG/DL 4.30 MG/DL Random Glucose 97 MG/DL 83 MG/DL Calcium Level 8.4 MG/DL 8.4 MG/DL Sodium Level 132 MEQ/L 131 MEQ/L Potassium Level 4.5 MEQ/L 4.6 MEQ/L Chloride Level 96 MEQ/L 95 MEQ/L Carbon Dioxide Level 23.6 MEQ/L 24.0 MEQ/L Anion Gap 12 MEQ/L 12 MEQ/L Estimat Glomerular Filtration Rate 11 ML/MIN 13 ML/MIN Microbiology Date/Time Source Procedure Growth Status 10/14/17 22:50 Urine Clean Catch Urine Culture - Preliminary NO GROWTH IN 24 HOURS. Resulted Imaging RADIOLOGY STUDIES/FILMS REVIEWED Last Impressions Chest X-Ray 10/14/17 0000 Signed Impressions: Service Date/Time: Saturday, October 14, 2017 16:58 - CONCLUSION: Left lower lobe opacity and left effusion. Eric Petty MD Chest Ultrasound 10/14/17 0000 Signed Impressions: Service Date/Time: Saturday, October 14, 2017 20:30 - CONCLUSION: Mild right pleural effusion Maycol Nance MD Abdomen/Pelvis CT 10/13/17 0000 Signed Impressions: Service Date/Time: September 09:53 - CONCLUSION: 1. Previously noted right perinephric drain has been removed. There has been interval development of small perinephric fluid collection status post drain removal. Perfusion defects are noted within both kidneys suggesting bilateral pyelonephritis (right much worse than left). 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 2. Anasarca is noted. 3. Stable mild to moderate-sized bilateral pleural effusions with adjacent compressive atelectasis. Daniel Portillo MD Renal Ultrasound 10/12/17 0000 Signed Impressions: Service Date/Time: Thursday, October 12, 2017 15:05 - CONCLUSION: 1. Total obscuration of the mid and lower pole of the right kidney secondary to air either within the kidney itself or directly adjacent to the kidney. No abscess seen involving the upper pole. 2. Left kidney is unremarkable. Corey Millan Jr., MD CT Angiography 10/10/171935 Signed Impressions: Service Date/Time: Tuesday, October 10, 2017 20:59 - CONCLUSION: 1. No pulmonary loss. 2. Mild to moderate bilateral pleural effusions with accompanying areas of atelectasis or consolidation of the lower lobes. 3. Mosaic perfusion pattern seen throughout the lungs likely related to mild edema. Maycol Nance MD Physical Exam GENERAL: awake and alert, looks dyspneic at rest SKIN: Warm and dry. No generalized rash, no ecchymoses and no evidence of embolic lesions. HEAD: Atraumatic. Normocephalic. No temporal wasting, or tenderness. EYES: Price conjunctiva. No petechia or hemorrhage. Pupils equal, round and reactive to light. Extraocular movements full and intact. No scleral icterus. No injection or drainage. EARS, NOSE AND THROAT: Nose without bleeding or purulent nasal discharge. No sinus tenderness. Mucous membranes pink and moist. No oral lesions noted. No exudate. No oral thrush. NECK: Trachea midline. Supple and not tender, no meningeal signs CARDIOVASCULAR: Regular rate and rhythm. No murmurs, rubs or gallops heard RESPIRATORY: Clear to auscultation. Breath sounds equal bilaterally. No rales , wheezing or rhonchi. Decreased breath sounds at the bases ABDOMEN: Soft, non-tender, nondistended. Bowel sounds present and normoactive. No guarding. No rebound. No organomegaly. BACK: No spine tenderness, tender on palpation R paraspinal area EXTREMITIES: No clubbing, cyanosis, or edema.No joint effusion, has good ROM. No calf tenderness. Well perfused and warm. NEUROLOGICAL: Awake and alert. Cranial nerves grossly intact. Motor grossly within normal limits. PSYCHIATRIC: Normal affect, calm and cooperative. LINE: No evidence of infection Assessment & Plan Remarks IMPRESSION Episode of SOB, ?fluid, ?CHF - better - clinically does not like an infectious process Hx empyhsematous pyelonephritis and R perinephric abscess - S/P placement of ureteral stent and percutaneous drainage of the abscess, C/S with E coli UTI, with VRE Worsening renal function - urine (+) eos - ?due to infection - no evidence of obstruction on CT RECOMMENDATION Continue Levaquin - would like to continue as planned for her initial problem with E coli sepsis Continue Zyvox Follow new C/S Renal following for worsening renal function Monitor progress Explained plan to the patient Ann Hoffmann MD Oct 16, 2017 11:16
--- NOTE | 2017-10-16 12:06 | HHI.FPPN ---
Subjective Remarks Mrs. Cohen was afebrile with stable vital signs overnight (max SBP 157, O2 saturations >93% on 2 L NC O2). Mrs. Cohen reports that she is doing ok this morning; patient has continued lower abdominal pain and back pain; patient's back pain waxes/wanes and occurs on both L and R side. Patient reports 1 BM yesterday. Patient reports that she has been voiding frequently and that she has sometimes voided without keeping urine for output monitoring. No chest pain, shortness of breath. (Austin Thompson MD, R3) Objective Vitals Vital Signs Date Time Temp Pulse Resp B/P (MAP) Pulse Ox O2 Delivery O2 Flow Rate FiO2 10/16/17 08:19 97 Nasal Cannula 2.00 10/16/17 08:00 98.0 76 20 157/65 (95) 93 10/16/17 04:00 98.5 70 16 134/61 (85) 96 10/16/17 00:00 98.3 70 16 119/62 (81) 96 10/15/17 20:08 70 10/15/17 20:00 Nasal Cannula 2.00 10/15/17 20:00 98.5 75 18 136/63 (87) 95 10/15/17 19:53 94 Nasal Cannula 2.00 10/15/17 16:02 70 10/15/17 16:00 98.7 79 20 167/77 (107) 94 I/O 10/15/17 10/15/17 10/15/17 10/16/17 10/16/17 10/16/17 07:00 15:00 23:00 07:00 15:00 23:00 Intake Total 660 ml 100 ml 840 ml 600 ml Output Total 650 ml 1300 ml 600 ml Balance 10 ml 100 ml -460 ml 0 ml Intake Oral 660 ml 840 ml 600 ml IV Total 100 ml Output Urine Total 650 ml 1300 ml 600 ml # Bowel Movements 1 1 (Austin Thompson MD, R3) Result Diagram: 10/16/1720 10/16/1720 Imaging Last Impressions Chest X-Ray 10/14/17 0000 Signed Impressions: Service Date/Time: Saturday, October 14, 2017 16:58 - CONCLUSION: Left lower lobe opacity and left effusion. Eric Petty MD Chest Ultrasound 10/14/17 0000 Signed Impressions: Service Date/Time: Saturday, October 14, 2017 20:30 - CONCLUSION: Mild right pleural effusion Maycol Nance MD Abdomen/Pelvis CT 10/13/17 0000 Signed Impressions: Service Date/Time: September 09:53 - CONCLUSION: 1. Previously noted right perinephric drain has been removed. There has been interval development of small perinephric fluid collection status post drain removal. Perfusion defects are noted within both kidneys suggesting bilateral pyelonephritis (right much worse than left). 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 2. Anasarca is noted. 3. Stable mild to moderate-sized bilateral pleural effusions with adjacent compressive atelectasis. Daniel Portillo MD Renal Ultrasound 10/12/17 0000 Signed Impressions: Service Date/Time: Thursday, October 12, 2017 15:05 - CONCLUSION: 1. Total obscuration of the mid and lower pole of the right kidney secondary to air either within the kidney itself or directly adjacent to the kidney. No abscess seen involving the upper pole. 2. Left kidney is unremarkable. Corey Millan Jr., MD CT Angiography 10/10/17 1936 Signed Impressions: Service Date/Time: Tuesday, October 10, 2017 20:59 - CONCLUSION: 1. No pulmonary loss. 2. Mild to moderate bilateral pleural effusions with accompanying areas of atelectasis or consolidation of the lower lobes. 3. Mosaic perfusion pattern seen throughout the lungs likely related to mild edema. Maycol Nance MD Objective Remarks GENERAL: no apparent distress. SKIN: No lesions. EYES: Pupils equal round and reactive. EOM grossly intact CARDIOVASCULAR: Regular rate and rhythm; 2/6 systolic murmur at left sternal border. Normal peripheral perfusion RESPIRATORY: Decreased breath sounds at bilateral bases. Mild inspiratory crackling bilaterally to auscultation. Normal rate GASTROINTESTINAL: Abdomen mildly/moderately tender to palpation in lower quadrants bilaterally. Pain appeared worst midline in suprapubic area. Back: CVA tenderness to percussion bilaterally; worse on R. MUSCULOSKELETAL: Minimal edema in bilateral lower extremities. Somewhat weak when transferring to sitting position for exam NEUROLOGICAL: Awake and alert. Cranial nerves grossly normal. Cerebellar- heel/ roger coordination intact bilaterally. Motor and sensory function grossly within normal limits. Normal speech. (Austin Thompson MD, R3) A/P Assessment and Plan 67-year-old female with history of diabetes and hypertension with recent hospitalization for pyelonephritis/renal abscess presented with shortness of breath: Seen and discussed with Dr. Connell (Austin Thompson MD, R3) Attending Attestation Medical rounds were conducted with Dr. Thompson this morning. EMR reviewed. Patient interviewed and examined with resident, orders and disposition discussed. Agree to content of this note, Sariah Connell M.D. (Sariah Connell MD) Problem List: (1) Pyelonephritis ICD Codes: N12 - Pyelonephritis Status: Acute Plan: -ID Consulted: ID consulted: -Continue Levaquin 500mg q48hrs (10/15-) -Continue Zyvox 600mg BID (10/15-) -Urology consulted: -Continue IV antibiotics -IV hydration -No surgical intervention needed at this time -Nephrology consulted for DELLA -Pain control -Will reduce Oxycodone to 5mg q6hrs -Discussed with pharmacy; will give an additional PRN 5mg evening dose so that patient may take 10mg in evenings -Will start Tylenol 650mg BID scheduled Impression: UA shows moderate leukocyte esterase, 33 WBC, occasional bacteria. Recent emphysematous pyelonephritis ((E Coli pansensitive with exception to Ampicillin/Unasyn) -> ureteral stent placed; R nephrostomy tube placed 09/27 and subsequently removed 10/05/2017) Urine culture initially with group D enterococcus >100,000K units Renal US- total obscuration of mid/lower pole of R kidney secondary to air w/in kidney or adjacent to kidney CT A/P- prior nephritic drain removed; interval development of small perinephric fluid collection s/p drain removal. Perfusion defects w/in both kidneys suggesting bilateral pyelonephritis (R much worse than L). Persistent air w/in the R collecting system indicating emphysematous R pyelonephritis. Anasarca noted; stable mild/moderate bilateral pleural effusions with adjacent compressive atelectasis Urine culture (10/10/2017)- enterococcus; sensitive to Daptomycin, Linezolid, Nitrofurantoin but resistant to Ampicillin, Ciprofloxacin, PCN, tetracycline, Vancomycin Urine culture (10/14/2017)- < 10K gram + bj Antibiotic History: Zosyn (10/11-10/15) Azithromycin (10/10-10/15) (2) DELLA (acute kidney injury) ICD Codes: N17.9 - Acute kidney failure, unspecified Status: Acute Plan: 10/16: Cr 4.30 <- 4.69 (10/15) <-- 1.24 (10/10). 700 ml urine output overnight -Attempt to limit nephrotoxins and adjust renally excreted medications - Lisinopril held - Furosemide held - Gemfibrozil reduced to 300mg daily -Pravastatin reduced to 10mg daily -Will attempt to avoid contrast agents -Nephrology consulted -Suspect DELLA with non-oliguric ATN from infection/pyelonephritis. 0-2 urine eosinophils present -Continue to monitor. Increased UOP reassuring Impression: Patient with current emphysematous pyelonephritis and is s/p nephrostomy placement (09/27- 10/05 removal) and ureteral stent placed. Increasing Cr during hospitalization: Cr 1.124 on admission (10/10). Patient received Lasix diuresis during hospitalization (60mg IV 10/10, 20mg PO 10/11, 20mg IV 10/13-10/14). Patient also received Zosyn (10/10- 10/15). Urine eosinophils 2-5 (3) Shortness of breath ICD Codes: R06.02 - Shortness of breath Status: Acute Plan: -Continue to monitor O2 saturations, RR, and provide O2 PRN -Continue incentive spirometry -ID consulted -Continue Levaquin and Zyvox for pyelonephritis -Cardiology consulted -Diuresis discontinued -Pulmonary etiologies of SOB work-up recommended due to recent reassuring echo -Start ASA 325mg daily due to PFO likely causing recent CVA -Will discuss PFO closure in the future -Pulmonology consulted -Continue duonebs, incentive spirometry -ABG, bedside PFTs -Maintain sats at 92% -US chest to evaluate effusions; will do thoracentesis if needed Patient with worsening shortness of breath for the last week, during hospitalization and worsening upon discharge. No history of lung disease. Fever at rehabilitation facility with reported Tmax 103F. Suspect possible pneumonia Chest x-ray: Cardiomegaly with interstitial edema and small pleural effusions. Mild CHF; significantly improved CTA: Mild to moderate bilateral pleural effusions with a combination areas of atelectasis or consolidation of the lower lobes. As a perfusion pattern likely related to mild edema. Echocardiogram on 09/19/17 shows ejection fraction of 65%; BNP ~1000 on admission Strep pneumo and Legionella urinary antigen negative Blood cultures negative x5 days (4) Sepsis ICD Codes: A41.9 - Sepsis, unspecified organism Status: Resolved Plan: 10/12: WBC count 12.2 <- 14.7 (10/11). Stable VS with resolution of tachycardia and tachypnea 10/14: Decreasing leukocytosis (WBC 12.2 10/13-> 11.2 10/14); stable vital signs 10/15: Stable vital signs. Leukocytosis resolved 10/16: Stable vital signs. Mild leukocytosis; WBC 12.9K ID consulted: -Continue Levaquin 500mg q48hrs (10/15-) -Continue Zyvox 600mg BID (10/15-) Patient met SIRS criteria with tachycardia (HR 102) and tachypnea (RR) 22 on admission, WBC 22.4. Lactic acid 1.1. Shortness of breath on admission with recent emphysematous pyelonephritis (E Coli pansensitive with exception to Ampicillin/Unasyn) w/ nephrostomy placement -Blood cultures (10/10)- negative x5 days -Urine culture (10/10): Group D enterococcus -Resistant to Ampicillin, Ciprofloxacin, PCN, tetracycline, Vancomycin -Urine culture (10/14): <10K gram + bj Antibiotic History: Zosyn (10/11-10/15) Azithromycin (10/10-10/15) (5) Anemia ICD Codes: D64.9 - Anemia, unspecified Status: Acute Plan: Impression: Hemoglobin of 8.6 on admission-> 8 (10/12) -> 7.4 (10/13) -> 7.7 (10/14) -> 8.2 (10/15)-> 8.3 (10/16); stable since last hospitalization. Suspect secondary to anemia of chronic disease with prior iron deficiency ( ferritin 1081, iron 17, TIBC 206) -Continue oral iron therapy -Will plan to transfuse if Hgb <7 (6) Hypertension Status: Chronic Plan: -Hold home Lisinopril due to DELLA -Continue Labetalol 100mg BID -Continue Amlodipine 10mg daily Impression: History of HTN; intermittent HTN during hospitalization (7) Diabetes mellitus ICD Codes: E11.9 - Type 2 diabetes mellitus without complications Status: Chronic Plan: -Regular Accuchecks -Continue home Levemir 10mg HS -Low dose sliding scale Novolog (patient has generally been using 0-3 U) Impression: Patient on home Levemir and sliding scale. Hemoglobin A1c 12.2 on last admission (8) Dyslipidemia ICD Codes: E78.5 - Dyslipidemia Status: Chronic Plan: Continue home pravastatin -Will reduce dosage from 40mg- 10mg daily due to low GFR/DELLA (9) FEN Status: Acute Plan: Fluids: tolerating PO, cautious while pt fluid overloaded Electrolytes: wnl, continue to monitor Nutrition: diabetic diet DVT ppx: Heparin 5000u q12H (Austin Thompson MD, R3) Problem Qualifiers (1) Sepsis: Qualified Codes: A41.9 - Sepsis, unspecified organism (2) Anemia: Qualified Codes: D64.9 - Anemia, unspecified Austin Thompson MD, R3 Oct 16, 2017 12:06 Sariah Connell MD Oct 16, 2017 12:36
--- NOTE | 2017-10-16 13:20 | HHI.NPPN ---
Subjective Additional Remarks No acute complaints, walked with walker today. Objective Data Data Vital Signs Date Time Temp Pulse Resp B/P (MAP) Pulse Ox O2 Delivery O2 Flow Rate FiO2 10/16/17 08:19 97 Nasal Cannula 2.00 10/16/17 08:00 98.0 76 20 157/65 (95) 93 10/16/17 04:00 98.5 70 16 134/61 (85) 96 10/16/17 00:00 98.3 70 16 119/62 (81) 96 10/15/17 20:08 70 10/15/17 20:00 Nasal Cannula 2.00 10/15/17 20:00 98.5 75 18 136/63 (87) 95 10/15/17 19:53 94 Nasal Cannula 2.00 10/15/17 16:02 70 10/15/17 16:00 98.7 79 20 167/77 (107) 94 -: 10/16/17 0920 10/16/17 0920 Physical Exam General Appearance: Well Developed, Well Nourished, No Acute Distress Throat Throat Exam: Oral Mucosa [place] & Moist Neck Neck Exam: Neck Supple Pulmonary Resp Exam: Clear Bilaterally Cardiology CV Exam: Regular, Normal Sinus Rhythm Gastrointestinal/Abdomen GI Exam: Soft, Non-Tender, Bowel Sounds Present Musculoskeletal MS Exam: Joints Intact, Normal Gait Integumentary Skin Exam: Dry, Intact Extremeties Extremities Exam: No Edema Neurologic Neuro Exam: Alert, Awake, Oriented, Speech Clear Assessment/Plan Problem List: (1) DELLA (acute kidney injury) ICD Codes: N17.9 - Acute kidney failure, unspecified Status: Acute (2) Pyelonephritis ICD Codes: N12 - Pyelonephritis Status: Acute (3) Sepsis ICD Codes: A41.9 - Sepsis, unspecified organism Status: Resolved (4) Hypertension Status: Chronic Plan ASSESSMENT 1. Urinary tract infection and pyelonephritis. 2. Acute kidney injury. 3. Hypertension. 4. Fluid overload with anasarca and pleural effusion. 5. Severe anemia. History of emphysematous pyelonephritis, previous ureteral stent and abscess drainige. Presents on this admission with bilateral pylonephritis and Group D enterococcus On Zyvox and Levaquin, following with ID. DELLA with non-oliguric ATN from infection or pyelonephritis. The air in and around the kidney could be from the retroperitoneal abscess drainage which was done during last admission. 0-2 urine eosinophills present, with possibility of interstitial nephritis/ infection. Creatinine had been trending higher; however 4.6 -> 4.3 today Improving UOP with 1.9L UOP/24 hours. Creatinine 1.1 on admission K+, HCO3 stable. Patient has been on lasix PO for anasarca, which was stopped with DELLA. Lisinopril was held. Tolerating PO intake. Continue to monitor. Increased UOP is encouraging. Continue to monitor. Renal dose medications and avoid nephrotoxins as possible. Problem Qualifiers (1) Sepsis: Qualified Codes: A41.9 - Sepsis, unspecified organism Gerard Washington MD Oct 16, 2017 13:20
[2017-10-16] MEDS: PRAVASTATIN SOD 10 MG TAB PO SCH (20:32)
[2017-10-16] MEDS: INSULIN DETEMIR 100 UNITS/ML VIAL SQ SCH (20:34)
[2017-10-17] VITALS (8 sets, daily range): BP systolic 119–154; BP diastolic 60–66; PULSE 60–75; RESP 14–18; TEMP 97.4–98.9; O2SAT 93–99
[2017-10-17 05:07] LABS: AUTOMATED NEUTROPHIL # 5.8 TH/MM3 (1.8-7.7); BASOPHIL # 0.1 TH/MM3 (0-0.2); BASOPHIL % 1.2 % (0.0-2.0); EOSINOPHIL # 0.5 TH/MM3 (0-0.4); EOSINOPHIL % 4.7 % (0.0-4.0); HEMATOCRIT 22.4 % (35.0-46.0); HEMO FLAGS DIFF FINAL; LYMPH % 25.4 % (9.0-44.0); LYMPHOCYTE # 2.5 TH/MM3 (1.0-4.8); MEAN CELL VOLUME 85.1 FL (80.0-100.0); MEAN CORPUSCULAR HEMOGLOBIN 28.2 PG (27.0-34.0); MEAN CORPUSCULAR HGB CONC 33.1 % (32.0-36.0); MONO % 10.7 % (0.0-8.0); PLATELET COUNT 636 TH/MM3 (150-450); RED BLOOD COUNT 2.63 MIL/MM3 (4.00-5.30); RED CELL DISTRIBUTION WIDTH 14.4 % (11.6-17.2); WHITE BLOOD COUNT 9.9 TH/MM3 (4.0-11.0)
[2017-10-17 05:28] LABS: POTASSIUM 4.2 MEQ/L (3.5-5.1)
[2017-10-17] MEDS: INSULIN ASPART SUPPLEMENTAL SCALE SQ SCH ×4 (08:00→20:31)
[2017-10-17] MEDS: FERROUS SULFATE 325 MG (65 MG ELEMENTAL IRON) TAB PO SCH ×2 (08:33→20:29)
[2017-10-17] MEDS: ASPIRIN EC 325 MG TABEC PO SCH (08:33)
[2017-10-17] MEDS: MUPIROCIN 2% OINT 1 APPLIC/GM SYR EACH NARE SCH ×2 (08:33→20:29)
[2017-10-17] MEDS: LACTOBACILLUS ACIDOPHILUS TAB PO SCH ×2 (08:33→20:30)
[2017-10-17] MEDS: ACETAMINOPHEN 325 MG TAB PO SCH ×2 (08:34→20:29)
[2017-10-17] MEDS: GEMFIBROZIL 600 MG TAB PO SCH (08:34)
[2017-10-17] MEDS: DOCUSATE SODIUM 50 MG/SENNA 8.6 MG TAB PO SCH ×2 (08:34→20:30)
[2017-10-17] MEDS: LINEZOLID 600 MG TAB PO SCH ×2 (08:34→20:29)
[2017-10-17] MEDS: LABETALOL HCL 100 MG TAB PO SCH ×2 (08:35→20:28)
[2017-10-17] MEDS: SODIUM CHLORIDE 0.9% FLUSH 10 ML FLUSH IV FLUSH SCH ×2 (08:41→20:30)
[2017-10-17] MEDS: RESP: ALBUTEROL 2.5 MG/IPRATROPIUM 0.5 MG NEB (SCH) NEB ×3 (09:46→19:51)
--- NOTE | 2017-10-17 10:38 | HHI.FPPN ---
Subjective Remarks Mrs. Cohen was afebrile with stable vital signs overnight (saturating >95% on 2 L O2 via NC). Per EMR, 700ml urine output overnight. Mrs. Cohen reports that she is doing ok today; patient does not report chest pain or shortness of breath. Patient reports improved abdominal pain. Patient had normal bowel movement overnight. Patient reports improved urination. Patient has continued mild back pain. Patient also reports new presence of pain to the L of her anus which she suspects may be a pressure ulcer. (Austin Thompson MD, R3) Objective Vitals Vital Signs Date Time Temp Pulse Resp B/P (MAP) Pulse Ox O2 Delivery O2 Flow Rate FiO2 10/17/17 09:47 98 Nasal Cannula 2.00 10/17/17 08:45 Nasal Cannula 2.00 10/17/17 08:06 98.2 64 17 141/65 (90) 97 10/17/17 04:00 Nasal Cannula 2.00 10/17/17 04:00 98.3 60 16 119/60 (79) 99 10/17/17 00:00 Nasal Cannula 2.00 10/17/17 00:00 97.4 70 17 154/65 (94) 96 10/16/17 21:04 95 Nasal Cannula 2.00 10/16/17 20:38 Nasal Cannula 2.00 Humidified 10/16/17 20:00 98.6 76 16 141/61 (87) 97 10/16/17 16:00 98.7 68 18 131/60 (83) 97 10/16/17 12:00 98.7 68 18 131/60 (83) 97 I/O 10/16/17 10/16/17 10/16/17 10/17/17 10/17/17 10/17/17 07:00 15:00 23:00 07:00 15:00 23:00 Intake Total 600 ml 1440 ml 900 ml Output Total 600 ml 700 ml Balance 0 ml 1440 ml 200 ml Intake Oral 600 ml 1440 ml 900 ml Output Urine Total 600 ml 700 ml # Voids 4 1 # Bowel Movements 1 (Austin Thompson MD, R3) Result Diagram: 10/17/17 0440 10/17/17 0440 Imaging Last Impressions Chest X-Ray 10/14/17 0000 Signed Impressions: Service Date/Time: Saturday, October 14, 2017 16:58 - CONCLUSION: Left lower lobe opacity and left effusion. Eric Petty MD Chest Ultrasound 10/14/17 0000 Signed Impressions: Service Date/Time: Saturday, October 14, 2017 20:30 - CONCLUSION: Mild right pleural effusion Maycol Nance MD Abdomen/Pelvis CT 10/13/17 0000 Signed Impressions: Service Date/Time: September 09:53 - CONCLUSION: 1. Previously noted right perinephric drain has been removed. There has been interval development of small perinephric fluid collection status post drain removal. Perfusion defects are noted within both kidneys suggesting bilateral pyelonephritis (right much worse than left). 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 2. Anasarca is noted. 3. Stable mild to moderate-sized bilateral pleural effusions with adjacent compressive atelectasis. Daniel Portillo MD Renal Ultrasound 10/12/17 0000 Signed Impressions: Service Date/Time: Thursday, October 12, 2017 15:05 - CONCLUSION: 1. Total obscuration of the mid and lower pole of the right kidney secondary to air either within the kidney itself or directly adjacent to the kidney. No abscess seen involving the upper pole. 2. Left kidney is unremarkable. Corey Millan Jr., MD CT Angiography 10/10/171935 Signed Impressions: Service Date/Time: Tuesday, October 10, 2017 20:59 - CONCLUSION: 1. No pulmonary loss. 2. Mild to moderate bilateral pleural effusions with accompanying areas of atelectasis or consolidation of the lower lobes. 3. Mosaic perfusion pattern seen throughout the lungs likely related to mild edema. Maycol Nance MD Objective Remarks GENERAL: no apparent distress. SKIN: No lesions. EYES: Pupils equal round and reactive. CARDIOVASCULAR: Regular rate and rhythm; 2/6 systolic murmur at left sternal border. Normal peripheral perfusion RESPIRATORY: Decreased breath sounds at bilateral bases. Continued minimal inspiratory crackling bilaterally to auscultation; seems less noticeable than on prior exam. Normal rate GASTROINTESTINAL: Abdomen mildly/moderately tender to palpation in lower quadrants bilaterally; improved Back: CVA tenderness to percussion bilaterally MUSCULOSKELETAL: Minimal edema in bilateral lower extremities distally. NEUROLOGICAL: Awake and alert. Cranial nerves grossly normal. Motor and sensory function grossly within normal limits. Normal speech. (Chotas,Austin N MD, R3) A/P Assessment and Plan 67-year-old female with history of diabetes and hypertension with recent hospitalization for pyelonephritis/renal abscess presented with shortness of breath: Discussed with Dr. Connell (Austin Thompson MD, R3) Attending Attestation Patient seen and examined. Patient cooperating with physical therapy, brighter demeanor today .Case reviewed and discussed with Dr Thompson. Agree with plan of care as discussed with me and documented in the resident note. (Sariah Connell MD) Problem List: (1) Pyelonephritis ICD Codes: N12 - Pyelonephritis Status: Acute Plan: -ID Consulted: ID consulted: -Continue Levaquin 500mg q48hrs (10/15-) -Continue Zyvox 600mg BID (10/15-) -Urology consulted: -Continue IV antibiotics -IV hydration -No surgical intervention needed at this time -Nephrology consulted for DELLA -Pain control -Continue Oxycodone to 5mg q6hrs; patient instructed that she has an additional PRN 5mg evening dose so that patient may take 10mg in evenings -Will start Tylenol 650mg BID scheduled Impression: UA shows moderate leukocyte esterase, 33 WBC, occasional bacteria. Recent emphysematous pyelonephritis ((E Coli pansensitive with exception to Ampicillin/Unasyn) -> ureteral stent placed; R nephrostomy tube placed 09/27 and subsequently removed 10/05/2017) Urine culture initially with group D enterococcus >100,000K units Renal US- total obscuration of mid/lower pole of R kidney secondary to air w/in kidney or adjacent to kidney CT A/P- prior nephritic drain removed; interval development of small perinephric fluid collection s/p drain removal. Perfusion defects w/in both kidneys suggesting bilateral pyelonephritis (R much worse than L). Persistent air w/in the R collecting system indicating emphysematous R pyelonephritis. Anasarca noted; stable mild/moderate bilateral pleural effusions with adjacent compressive atelectasis Urine culture (10/10/2017)- enterococcus; sensitive to Daptomycin, Linezolid, Nitrofurantoin but resistant to Ampicillin, Ciprofloxacin, PCN, tetracycline, Vancomycin Urine culture (10/14/2017)- < 10K gram + bj Antibiotic History: Zosyn (10/11-10/15) Azithromycin (10/10-10/15) (2) DELLA (acute kidney injury) ICD Codes: N17.9 - Acute kidney failure, unspecified Status: Acute Plan: 10/17: Cr 3.85 <- 4.30 (10/16) <- 4.69 (10/15) <-- 1.24 (10/10) -Attempt to limit nephrotoxins and adjust renally excreted medications - Lisinopril held - Furosemide held - Gemfibrozil reduced to 300mg daily -Pravastatin reduced to 10mg daily -Will attempt to avoid contrast agents -Nephrology consulted -Suspect DELLA with non-oliguric ATN from infection/pyelonephritis. 0-2 urine eosinophils present -Continue to monitor. Increased UOP reassuring Impression: Increasing Cr during hospitalization: Cr 1.124 on admission Patient has been receiving Lasix diuresis and Zosyn since admission; recently treated for emphysematous Urine eosinophils 2-5 -> 0-2 (3) Shortness of breath ICD Codes: R06.02 - Shortness of breath Status: Acute Plan: -Continue to monitor O2 saturations, RR, and provide O2 PRN -Continue incentive spirometry -ID consulted -Continue Levaquin and Zyvox for pyelonephritis -Cardiology consulted -Diuresis discontinued -Pulmonary etiologies of SOB work-up recommended due to recent reassuring echo -Start ASA 325mg daily due to PFO likely causing recent CVA -Will discuss PFO closure in the future -Pulmonology consulted -Continue duonebs, incentive spirometry -ABG, bedside PFTs -Maintain sats at 92% -US chest to evaluate effusions; will do thoracentesis if needed Patient with worsening shortness of breath for the last week, during hospitalization and worsening upon discharge. No history of lung disease. Fever at rehabilitation facility with reported Tmax 103F. Suspect possible pneumonia Chest x-ray: Cardiomegaly with interstitial edema and small pleural effusions. Mild CHF; significantly improved CTA: Mild to moderate bilateral pleural effusions with a combination areas of atelectasis or consolidation of the lower lobes. As a perfusion pattern likely related to mild edema. Echocardiogram on 09/19/17 shows ejection fraction of 65%; BNP ~1000 on admission Strep pneumo and Legionella urinary antigen negative Blood cultures negative x5 days (4) Sepsis ICD Codes: A41.9 - Sepsis, unspecified organism Status: Resolved Plan: 10/12: WBC count 12.2 <- 14.7 (10/11). Stable VS with resolution of tachycardia and tachypnea 10/14: Decreasing leukocytosis (WBC 12.2 10/13-> 11.2 10/14); stable vital signs 10/15: Stable vital signs. Leukocytosis resolved 10/16: Stable vital signs. Mild leukocytosis; WBC 12.9K 10/17: Stable vital signs. WBC 9.9 ID consulted: -Continue Levaquin 500mg q48hrs (10/15-) -Continue Zyvox 600mg BID (10/15-) Patient met SIRS criteria with tachycardia (HR 102) and tachypnea (RR) 22 on admission, WBC 22.4. Lactic acid 1.1. Shortness of breath on admission with recent emphysematous pyelonephritis (E Coli pansensitive with exception to Ampicillin/Unasyn) w/ nephrostomy placement -Blood cultures (10/10)- negative x5 days -Urine culture (10/10): Group D enterococcus -Resistant to Ampicillin, Ciprofloxacin, PCN, tetracycline, Vancomycin -Urine culture (10/14): <10K gram + bj Antibiotic History: Zosyn (10/11-10/15) Azithromycin (10/10-10/15) (5) Anemia ICD Codes: D64.9 - Anemia, unspecified Status: Acute Plan: Impression: Hemoglobin of 8.6 on admission-> 8 (10/12) -> 7.4 (10/13) -> 7.7 (10/14) -> 8.2 (10/15)-> 8.3 (10/16) -> 7.4 (10/17); stable since last hospitalization. Suspect secondary to anemia of chronic disease with prior iron deficiency (ferritin 1081, iron 17, TIBC 206) -Continue oral iron therapy -Multivitamin initiated -Will plan to transfuse if Hgb <7 (6) Hypertension Status: Chronic Plan: -Hold home Lisinopril due to DELLA -Continue Labetalol 100mg BID -Continue Amlodipine 10mg daily -Hydralazine 10mg q8hrs PRN Impression: History of HTN; intermittent HTN during hospitalization (7) Diabetes mellitus ICD Codes: E11.9 - Type 2 diabetes mellitus without complications Status: Chronic Plan: -Regular Accuchecks -Continue home Levemir 10mg HS -Low dose sliding scale Novolog (patient has generally been using 0-3 U) Impression: Patient on home Levemir and sliding scale. Hemoglobin A1c 12.2 on last admission (8) Dyslipidemia ICD Codes: E78.5 - Dyslipidemia Status: Chronic Plan: Continue home Pravastatin -Dosage reduced to 10mg daily due to low GFR/DELLA (9) FEN Status: Acute Plan: Fluids: tolerating PO, cautious while pt fluid overloaded Electrolytes: wnl, continue to monitor Nutrition: diabetic diet DVT ppx: Heparin 5000U q12H (Austin Thompson MD, R3) Problem Qualifiers (1) Sepsis: Qualified Codes: A41.9 - Sepsis, unspecified organism (2) Anemia: Qualified Codes: D64.9 - Anemia, unspecified Austin Thompson MD, R3 Oct 17, 2017 10:38 Sariah Connell MD Oct 17, 2017 13:25
[2017-10-17] MEDS: LEVOFLOXACIN 500 MG TAB PO SCH (11:39)
[2017-10-17] MEDS: HEPARIN SODIUM - SQ 10,000 UNITS/ML VIAL SQ SCH (11:51)
--- NOTE | 2017-10-17 13:22 | HHI.IDPN ---
Subjective Subjective Remarks Patient is a 67-year-old female, known to me from her last hospitalization, came from the rehabilitation facility, brought into the hospital for evaluation of shortness of breath. She was also found to have fevers up to 103. She also had mentioned pain in her right lower back. 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 She had Escherichia coli in the blood and Escherichia coli in the urine. She underwent cystoscopy and placement of a ureteric stent. Patient however did not improved, and developed a perinephric fluid collection, underwent placement of a percutaneous drain to the right kidney. A culture from that also grew Escherichia coli. Patient improved from that infection, and she was switched over to oral Levaquin after being on IV antibiotic during her hospitalization. The plan was for her to get Levaquin for another 28 days, and urology was supposed to do follow-up and do imaging studies sleep duration she also had some shortness of breath which was felt to be related to fluid. She was better from her breathing problem when she was discharged to the rehabilitation facility. She came back this time complaining of shortness of breath. Patient was diuresed, and currently states her breathing is better. She was also found to have urinary tract infection, and her urine culture grew VRE. She has not been febrile. Her initial WBC was 22,000, and it's down to normal. Patient has been on IV Zosyn, and was switched to Zyvox yesterday. He is not complaining of any dysuria. Of note is that her renal function has been progressively worsening. Urine for eosinophils are positive. CT of the abdomen and pelvis showing presence of air in the right kidney which has improved, but there is a new perinephric fluid collection that was seen. There is also some findings of UTI on the left kidney. She is also complaining of pain on her right lower back. A shunt has very minimal congestion or cough. Infectious disease consultation has been requested to evaluate the patient. Notes reviewed Temps ok Breathing better Working with PT Creatinine slightly lower Has good urine output Repeat urine culture before Zyvox with mixed bj Antibiotics Zyvox Levaquin Lines PIV Past Medical History Diabetes Hypertension Hypertriglyceridemia CAD Previous episodes of UTI Recent episode of emphysematous pyelonephritis with perinephric abscess Past Surgical History Cystoscopy and ureteral stent to the right Percutaneous drainage of a perinephric abscess section Allergies: Coded Allergies: metformin (Unverified Allergy, Severe, Numbness, 10/10/17) clonidine (Unverified Allergy, Unknown, 10/10/17) Objective . Vital Signs Date Time Temp Pulse Resp B/P (MAP) Pulse Ox O2 Delivery O2 Flow Rate FiO2 10/17/17 12:26 97.8 64 18 131/60 (83) 96 10/17/17 12:18 Nasal Cannula 2.00 10/17/17 09:47 98 Nasal Cannula 2.00 10/17/17 08:45 Nasal Cannula 2.00 10/17/17 08:06 98.2 64 17 141/65 (90) 97 10/17/17 04:00 Nasal Cannula 2.00 10/17/17 04:00 98.3 60 16 119/60 (79) 99 10/17/17 00:00 Nasal Cannula 2.00 10/17/17 00:00 97.4 70 17 154/65 (94) 96 10/16/17 21:04 95 Nasal Cannula 2.00 10/16/17 20:38 Nasal Cannula 2.00 Humidified 10/16/17 20:00 98.6 76 16 141/61 (87) 97 10/16/17 16:00 98.7 68 18 131/60 (83) 97 . Laboratory Tests Test 10/16/17 09:20 10/17/17 04:40 White Blood Count 12.9 TH/MM3 9.9 TH/MM3 Red Blood Count 2.96 MIL/MM3 2.63 MIL/MM3 Hemoglobin 8.3 GM/DL 7.4 GM/DL Hematocrit 25.3 % 22.4 % Mean Corpuscular Volume 85.5 FL 85.1 FL Mean Corpuscular Hemoglobin 28.0 PG 28.2 PG Mean Corpuscular Hemoglobin Concent 32.8 % 33.1 % Red Cell Distribution Width 14.4 % 14.4 % Platelet Count 662 TH/MM3 636 TH/MM3 Mean Platelet Volume 5.9 FL 6.1 FL CBC Comment AUTO DIFF DIFF FINAL Differential Total Cells Counted 100 Neutrophils % (Manual) 67 % Lymphocytes % 21 % Monocytes % 9 % Eosinophils % 3 % Neutrophils # (Manual) 8.6 TH/MM3 Differential Comment FINAL DIFF MANUAL Platelet Estimate HIGH Platelet Morphology Comment NORMAL Red Cell Morphology Comment NORMAL Neutrophils (%) (Auto) 58.0 % Lymphocytes (%) (Auto) 25.4 % Monocytes (%) (Auto) 10.7 % Eosinophils (%) (Auto) 4.7 % Basophils (%) (Auto) 1.2 % Neutrophils # (Auto) 5.8 TH/MM3 Lymphocytes # (Auto) 2.5 TH/MM3 Monocytes # (Auto) 1.1 TH/MM3 Eosinophils # (Auto) 0.5 TH/MM3 Basophils # (Auto) 0.1 TH/MM3 Laboratory Tests Test 10/16/17 09:20 10/17/17 04:40 Blood Urea Nitrogen 31 MG/DL 27 MG/DL Creatinine 4.30 MG/DL 3.85 MG/DL Random Glucose 83 MG/DL 102 MG/DL Calcium Level 8.4 MG/DL 8.2 MG/DL Sodium Level 131 MEQ/L 132 MEQ/L Potassium Level 4.6 MEQ/L 4.2 MEQ/L Chloride Level 95 MEQ/L 98 MEQ/L Carbon Dioxide Level 24.0 MEQ/L 25.0 MEQ/L Anion Gap 12 MEQ/L 9 MEQ/L Estimat Glomerular Filtration Rate 13 ML/MIN 14 ML/MIN Microbiology Date/Time Source Procedure Growth Status 10/14/17 22:50 Urine Clean Catch Urine Culture - Final <10,000 CFU/ML GRAM POSITIVE BJ Complete Imaging RADIOLOGY STUDIES/FILMS REVIEWED Last Impressions Chest X-Ray 10/14/17 0000 Signed Impressions: Service Date/Time: Saturday, October 14, 2017 16:58 - CONCLUSION: Left lower lobe opacity and left effusion. Eric Petty MD Chest Ultrasound 10/14/17 0000 Signed Impressions: Service Date/Time: Saturday, October 14, 2017 20:30 - CONCLUSION: Mild right pleural effusion Maycol Nance MD Abdomen/Pelvis CT 10/13/17 0000 Signed Impressions: Service Date/Time: September 09:53 - CONCLUSION: 1. Previously noted right perinephric drain has been removed. There has been interval development of small perinephric fluid collection status post drain removal. Perfusion defects are noted within both kidneys suggesting bilateral pyelonephritis (right much worse than left). 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 2. Anasarca is noted. 3. Stable mild to moderate-sized bilateral pleural effusions with adjacent compressive atelectasis. Daniel Portillo MD Renal Ultrasound 10/12/17 0000 Signed Impressions: Service Date/Time: Thursday, October 12, 2017 15:05 - CONCLUSION: 1. Total obscuration of the mid and lower pole of the right kidney secondary to air either within the kidney itself or directly adjacent to the kidney. No abscess seen involving the upper pole. 2. Left kidney is unremarkable. Corey Millan Jr., MD CT Angiography 10/10/17 1936 Signed Impressions: Service Date/Time: Tuesday, October 10, 2017 20:59 - CONCLUSION: 1. No pulmonary loss. 2. Mild to moderate bilateral pleural effusions with accompanying areas of atelectasis or consolidation of the lower lobes. 3. Mosaic perfusion pattern seen throughout the lungs likely related to mild edema. Maycol Nance MD Physical Exam GENERAL: awake and alert, looks comfortable, working with PT SKIN: Warm and dry. No generalized rash, no ecchymoses and no evidence of embolic lesions. HEAD: Atraumatic. Normocephalic. No temporal wasting, or tenderness. EYES: [place] conjunctiva. No petechia or hemorrhage. Pupils equal, round and reactive to light. Extraocular movements full and intact. No scleral icterus. No injection or drainage. EARS, NOSE AND THROAT: Nose without bleeding or purulent nasal discharge. No sinus tenderness. Mucous membranes pink and moist. No oral lesions noted. No exudate. No oral thrush. NECK: Trachea midline. Supple and not tender, no meningeal signs CARDIOVASCULAR: Regular rate and rhythm. No murmurs, rubs or gallops heard RESPIRATORY: Clear to auscultation. Breath sounds equal bilaterally. No rales , wheezing or rhonchi. Decreased breath sounds at the bases ABDOMEN: Soft, non-tender, nondistended. Bowel sounds present and normoactive. No guarding. No rebound. No organomegaly. BACK: No spine tenderness, tender on palpation R paraspinal area EXTREMITIES: No clubbing, cyanosis, or edema.No joint effusion, has good ROM. No calf tenderness. Well perfused and warm. NEUROLOGICAL: Awake and alert. Cranial nerves grossly intact. Motor grossly within normal limits. PSYCHIATRIC: Normal affect, calm and cooperative. LINE: No evidence of infection Assessment & Plan Remarks IMPRESSION Episode of SOB, ?fluid, ?CHF - better - clinically does not like an infectious process Hx empyhsematous pyelonephritis and R perinephric abscess - S/P placement of ureteral stent and percutaneous drainage of the abscess, C/S with E coli UTI, with VRE Worsening renal function - urine (+) eos - ?due to infection - no evidence of obstruction on CT - creatinine decreasing RECOMMENDATION Continue Levaquin - would like to continue as planned for her initial problem with E coli sepsis Continue Zyvox Follow new C/S Monitor progress Spoke with daughter Ann Hoffmann MD Oct 17, 2017 13:22
--- NOTE | 2017-10-17 16:48 | HHI.NPPN ---
Subjective History of Present Illness 67-year-old female with a past medical history of hypertension, diabetes mellitus, history of pyelonephritis with perinephric abscess who was admitted with complaint of worsening shortness of breath. I was called to see the patient because of elevated BUN and creatinine. The patient has a history of acute kidney injury before, and she was seen by me when she was admitted last month and had acute kidney injury. Additional Remarks Patient is alert, has mild lower abd. pain, eating well, not in distress. Review of Systems General Constitutional: Fatigue Cardiovascular Cardiac: OSBORNE Gastrointestinal Gastrointestinal: Abdominal Pain, Nausea & Vomiting Objective Data Data Vital Signs Date Time Temp Pulse Resp B/P (MAP) Pulse Ox O2 Delivery O2 Flow Rate FiO2 10/17/17 16:16 Nasal Cannula 2.00 10/17/17 12:26 97.8 64 18 131/60 (83) 96 10/17/17 12:18 Nasal Cannula 2.00 10/17/17 09:47 98 Nasal Cannula 2.00 10/17/17 08:45 Nasal Cannula 2.00 10/17/17 08:06 98.2 64 17 141/65 (90) 97 10/17/17 04:00 Nasal Cannula 2.00 10/17/17 04:00 98.3 60 16 119/60 (79) 99 10/17/17 00:00 Nasal Cannula 2.00 10/17/17 00:00 97.4 70 17 154/65 (94) 96 10/16/17 21:04 95 Nasal Cannula 2.00 10/16/17 20:38 Nasal Cannula 2.00 Humidified 10/16/17 20:00 98.6 76 16 141/61 (87) 97 -: 10/17/17 0440 10/17/17 0440 Physical Exam General Appearance: No Acute Distress, Comfortable Eyes Eye Exam: Pupils Equal Throat Throat Exam: Oral Mucosa [place] & Moist Neck Neck Exam: Neck Supple Pulmonary Resp Exam: Breath Sounds Equal, No Distress, Rhonchi, Decreased Bases Cardiology CV Exam: Regular, Normal Sinus Rhythm Gastrointestinal/Abdomen GI Exam: Soft, Non-Tender, Bowel Sounds Present, Distended Musculoskeletal MS Exam: Joints Intact, Normal Gait Integumentary Skin Exam: Dry, Intact Extremeties Extremities Exam: Trace Edema Neurologic Neuro Exam: Alert, Awake, Oriented Psychiatric Psych Exam: Appropriate Responses Assessment/Plan Assessment Summary: DELLA/Acute Renal Failure Problem List: (1) Essential hypertension ICD Codes: I10 - Essential hypertension Status: Acute (2) Obesity (BMI 30.0-34.9) ICD Codes: E66.9 - Obesity (BMI 30.0-34.9) Status: Chronic (3) Leukocytosis ICD Codes: D72.829 - Leukocytosis Status: Acute (4) Diabetes mellitus ICD Codes: E11.9 - Type 2 diabetes mellitus without complications Status: Chronic (5) Anemia ICD Codes: D64.9 - Anemia, unspecified Status: Acute (6) UTI (urinary tract infection) ICD Codes: N39.0 - Urinary tract infection, site not specified (7) Pyelonephritis ICD Codes: N12 - Pyelonephritis Status: Acute (8) EDLLA (acute kidney injury) ICD Codes: N17.9 - Acute kidney failure, unspecified Status: Acute Plan Patient has mild chronic kidney disease and develop DELLA. Most likely ATN due to infection. Has been non oliguric. BP is stable. Creatinine improving and it is 3.8. Continue antibiotics, on Levaquin and Zyvox. Follow the culture results.Avoid Nephrotoxins. Problem Qualifiers (1) Leukocytosis: Qualified Codes: D72.829 - Elevated white blood cell count, unspecified (2) Anemia: Qualified Codes: D64.9 - Anemia, unspecified (3) UTI (urinary tract infection): Qualified Codes: N39.0 - Urinary tract infection, site not specified Pita Huitron MD Oct 17, 2017 16:48
--- NOTE | 2017-10-17 18:41 | HHI.PR ---
Subjective Remarks Seems better today. On O2 2L. No fever. On antibiotics per ID.Output was marginal. CR 3.2 Objective Vital Signs Date Time Temp Pulse Resp B/P (MAP) Pulse Ox O2 Delivery O2 Flow Rate FiO2 10/17/17 17:40 Nasal Cannula 2.00 10/17/17 16:16 Nasal Cannula 2.00 10/17/17 16:06 98.9 72 18 136/64 (88) 95 10/17/17 12:26 97.8 64 18 131/60 (83) 96 10/17/17 12:18 Nasal Cannula 2.00 10/17/17 09:47 98 Nasal Cannula 2.00 10/17/17 08:45 Nasal Cannula 2.00 10/17/17 08:06 98.2 64 17 141/65 (90) 97 10/17/17 04:00 Nasal Cannula 2.00 10/17/17 04:00 98.3 60 16 119/60 (79) 99 10/17/17 00:00 Nasal Cannula 2.00 10/17/17 00:00 97.4 70 17 154/65 (94) 96 10/16/17 21:04 95 Nasal Cannula 2.00 10/16/17 20:38 Nasal Cannula 2.00 Humidified 10/16/17 20:00 98.6 76 16 141/61 (87) 97 I/O 10/16/17 10/16/17 10/16/17 10/17/17 10/17/17 10/17/17 07:00 15:00 23:00 07:00 15:00 23:00 Intake Total 600 ml 1440 ml 900 ml 600 ml Output Total 600 ml 700 ml 1200 ml Balance 0 ml 1440 ml 200 ml -600 ml Intake Oral 600 ml 1440 ml 900 ml 600 ml Output Urine Total 600 ml 700 ml 1200 ml # Voids 4 1 # Bowel Movements 1 0 Result Diagram: 10/17/1743910/17/17439 Objective Remarks GENERAL: This is a moderately obese middle-aged white female who is alert, anxious and in no acute distress. HEAD, EYES, EARS, NOSE, THROAT: Head normocephalic. The pupils are reactive and equal. Tongue is moist. Throat is clear. Nasal mucosa injected. NECK: No bruits. No thyroid enlargement. No lymphadenopathy. CHEST: Equal movements with percussion note resonant throughout with basilar crackles with occasional wheeze bilaterally. HEART: The heart sounds are irregular. S1 and S2 with no murmur. ABDOMEN: Abdomen soft and protuberant with mild epigastric tenderness. Bowel sounds are active. No organomegaly. EXTREMITIES: Edema 1+ with decreased pulses. NEUROLOGIC: Reflexes are 1+ with no gross motor deficits. Cranial nerves are grossly intact. RECTAL: Rectal exam is deferred. SKIN: No lesions. Assessment and Plan Assessment and Plan IMPRESSION: 1. Bibasilar pulmonary infiltrates with pleural effusion. 2. Pulmonary edema, resolving. 3. Urinary tract infection and VRE. 4. Hypertension. 5. Diabetes mellitus type 2. 6. History of pyelonephritis.DELLA. 7. Chronic Kidney Disease Plan : 1. Continue O2 at 2 L. 2. Continue antibiotics per ID 3. Nebs qid , duoneb. 4. Will hold off on thoracentesis if she is Diuresing . 5. Rpt Chest X ray.CBC,BMP. Callie Mcneil MD Oct 17, 2017 18:40
[2017-10-17] MEDS: PRAVASTATIN SOD 10 MG TAB PO SCH (20:30)
[2017-10-17] MEDS: MULTIVITAMIN TAB PO SCH (20:31)
[2017-10-17] MEDS: INSULIN DETEMIR 100 UNITS/ML VIAL SQ SCH (20:31)
[2017-10-18] VITALS (7 sets, daily range): BP systolic 130–154; BP diastolic 59–87; PULSE 65–82; RESP 16–20; TEMP 97.3–98.3; O2SAT 95–96
[2017-10-18] MEDS: HEPARIN SODIUM - SQ 10,000 UNITS/ML VIAL SQ SCH ×2 (01:13→12:14)
[2017-10-18 05:32] LABS: AUTOMATED NEUTROPHIL # 7.7 TH/MM3 (1.8-7.7); BASOPHIL # 0.1 TH/MM3 (0-0.2); BASOPHIL % 0.9 % (0.0-2.0); EOSINOPHIL # 0.5 TH/MM3 (0-0.4); EOSINOPHIL % 4.5 % (0.0-4.0); HEMATOCRIT 25.3 % (35.0-46.0); HEMO FLAGS DIFF FINAL; LYMPH % 19.8 % (9.0-44.0); LYMPHOCYTE # 2.4 TH/MM3 (1.0-4.8); MEAN CELL VOLUME 85.5 FL (80.0-100.0); MEAN CORPUSCULAR HEMOGLOBIN 28.3 PG (27.0-34.0); MONO % 9.8 % (0.0-8.0); PLATELET COUNT 709 TH/MM3 (150-450); RED BLOOD COUNT 2.96 MIL/MM3 (4.00-5.30); RED CELL DISTRIBUTION WIDTH 14.2 % (11.6-17.2); WHITE BLOOD COUNT 11.9 TH/MM3 (4.0-11.0)
[2017-10-18 06:06] LABS: BICARBONATE 24.9 MEQ/L (21.0-32.0); POTASSIUM 3.9 MEQ/L (3.5-5.1)
[2017-10-18] MEDS: ONDANSETRON HCL 4 MG/2 ML VIAL IVP PRN (07:41)
[2017-10-18] MEDS: LABETALOL HCL 100 MG TAB PO SCH ×2 (07:42→20:09)
[2017-10-18] MEDS: DOCUSATE SODIUM 50 MG/SENNA 8.6 MG TAB PO SCH ×2 (07:42→20:09)
[2017-10-18] MEDS: RESP: ALBUTEROL 2.5 MG/IPRATROPIUM 0.5 MG NEB (SCH) NEB ×3 (07:42→15:39)
[2017-10-18] MEDS: MULTIVITAMIN TAB PO SCH (07:43)
[2017-10-18] MEDS: GEMFIBROZIL 600 MG TAB PO SCH (07:43)
[2017-10-18] MEDS: ASPIRIN EC 325 MG TABEC PO SCH (07:43)
[2017-10-18] MEDS: FERROUS SULFATE 325 MG (65 MG ELEMENTAL IRON) TAB PO SCH ×2 (07:43→20:08)
[2017-10-18] MEDS: LINEZOLID 600 MG TAB PO SCH ×2 (07:43→20:09)
[2017-10-18] MEDS: MUPIROCIN 2% OINT 1 APPLIC/GM SYR EACH NARE SCH ×2 (07:44→20:08)
[2017-10-18] MEDS: LACTOBACILLUS ACIDOPHILUS TAB PO SCH ×2 (07:44→20:10)
[2017-10-18] MEDS: ACETAMINOPHEN 325 MG TAB PO SCH ×2 (07:44→21:10)
[2017-10-18] MEDS: SODIUM CHLORIDE 0.9% FLUSH 10 ML FLUSH IV FLUSH SCH ×2 (07:44→20:08)
[2017-10-18] MEDS: INSULIN ASPART SUPPLEMENTAL SCALE SQ SCH ×4 (07:50→20:39)
--- NOTE | 2017-10-18 08:57 | HHI.NPPN ---
Subjective History of Present Illness 67-year-old female with a past medical history of hypertension, diabetes mellitus, history of pyelonephritis with perinephric abscess who was admitted with complaint of worsening shortness of breath. I was called to see the patient because of elevated BUN and creatinine. The patient has a history of acute kidney injury before, and she was seen by me when she was admitted last month and had acute kidney injury. Additional Remarks Patient is alert, lower abd. pain increase today, eating well, no SOB. Review of Systems General Constitutional: Fatigue Cardiovascular Cardiac: OSB[place]NE Gastrointestinal Gastrointestinal: Abdominal Pain, Nausea & Vomiting Objective Data Data Vital Signs Date Time Temp Pulse Resp B/P (MAP) Pulse Ox O2 Delivery O2 Flow Rate FiO2 10/18/17 04:00 97.9 67 16 153/70 (97) 95 10/18/17 00:00 97.3 65 16 130/60 (83) 95 10/17/17 20:15 Nasal Cannula 2.00 10/17/17 20:00 98.8 75 14 143/66 (91) 93 10/17/17 19:53 96 Nasal Cannula 2.00 10/17/17 17:40 Nasal Cannula 2.00 10/17/17 16:16 Nasal Cannula 2.00 10/17/17 16:06 98.9 72 18 136/64 (88) 95 10/17/17 12:26 97.8 64 18 131/60 (83) 96 10/17/17 12:18 Nasal Cannula 2.00 10/17/17 09:47 98 Nasal Cannula 2.00 -: 10/18/17 0425 10/18/17 042 Physical Exam General Appearance: No Acute Distress, Comfortable Eyes Eye Exam: Pupils Equal Throat Throat Exam: Oral Mucosa [place] & Moist Neck Neck Exam: Neck Supple Pulmonary Resp Exam: Breath Sounds Equal, No Distress, Rhonchi, Decreased Bases Cardiology CV Exam: Regular, Normal Sinus Rhythm Gastrointestinal/Abdomen GI Exam: Soft, Non-Tender, Bowel Sounds Present, Distended Musculoskeletal MS Exam: Joints Intact, Normal Gait Integumentary Skin Exam: Dry, Intact Extremeties Extremities Exam: Trace Edema Neurologic Neuro Exam: Alert, Awake, Oriented Psychiatric Psych Exam: Appropriate Responses Assessment/Plan Assessment Summary: DELLA/Acute Renal Failure Problem List: (1) Essential hypertension ICD Codes: I10 - Essential hypertension Status: Acute (2) Obesity (BMI 30.0-34.9) ICD Codes: E66.9 - Obesity (BMI 30.0-34.9) Status: Chronic (3) Leukocytosis ICD Codes: D72.829 - Leukocytosis Status: Acute (4) Diabetes mellitus ICD Codes: E11.9 - Type 2 diabetes mellitus without complications Status: Chronic (5) Anemia ICD Codes: D64.9 - Anemia, unspecified Status: Acute (6) UTI (urinary tract infection) ICD Codes: N39.0 - Urinary tract infection, site not specified (7) Pyelonephritis ICD Codes: N12 - Pyelonephritis Status: Acute (8) DELLA (acute kidney injury) ICD Codes: N17.9 - Acute kidney failure, unspecified Status: Acute Plan Patient has mild chronic kidney disease and develop DELLA. Most likely ATN due to infection. Has been non oliguric. BP is stable. Creatinine improving and now it is 3.2. Continue antibiotics, on Levaquin and Zyvox. Follow the culture results.Avoid Nephrotoxins. Get Bladder scan, post void. Problem Qualifiers (1) Leukocytosis: Qualified Codes: D72.829 - Elevated white blood cell count, unspecified (2) Anemia: Qualified Codes: D64.9 - Anemia, unspecified (3) UTI (urinary tract infection): Qualified Codes: N39.0 - Urinary tract infection, site not specified Pita Huitron MD Oct 18, 2017 08:57
--- NOTE | 2017-10-18 09:38 | RADRPT ---
EXAM DATE/TIME: 10/18/2017 09:10 [facility] COMPARISON: CHEST SINGLE AP, October 14, 2017, 16:58. INDICATIONS : Effusions, short of breath. MEDICAL HISTORY : Hypercholesterolemia. Methicillin-resistant Staphylococcus aureus. Numbness bilateral feet. Diabetes. Measles. SURGICAL HISTORY : section. Right kidney stent. ENCOUNTER: Initial ACUITY: 1 week PAIN SCORE: 0/10 LOCATION: chest FINDINGS: PA and lateral views of the chest demonstrate the lungs to be symmetrically aerated without evidence of mass, or infiltrate. Question a small left pleural effusion. The cardia silhouette remains widened . Stable fluid in the right minor fissure. Osseous structures are intact. CONCLUSION: Stable single view of the chest. Left small pleural effusion with persistent cardiomegaly Amrit Gutierres MD on October 18, 2017 at 9:35 Board Certified Radiologist. This report was verified electronically.
--- NOTE | 2017-10-18 11:29 | PD.WCN.NOT ---
Wound Consult Description: Received consult from Doctor Jay COOPER R3 for pressure ulcer of L buttock Communicated with: RN Keiry Martin and Call placed to Doctor Jay for orders Recommendation: Please cleanse buttock gently with soap and water and pat dry. Apply Calazime barrier cream over moisture related breakdown to L buttock BID and PRN and leave open to air. Additional Information: Patient seen on for evaluation of possible pressure ulcer to L buttock. Patient able to turn self without assistance for wound assessment. L buttock presents with resolving partial thickness skin loss that measures ~2cm x ~1cm. Wound is dry and and has no active drainage or odor. Cleaned wound with normal saline and pat dry. Left buttock wound open to air. RN to apply Calazime barrier cream when supplies obtained. Patient verbalizes understanding of the importance to offload pressure from kim prominences. Patient reports repositioning self in bed often. Mel[facility]ikh [facility] Oct 18, 2017 11:29
--- NOTE | 2017-10-18 11:43 | HHI.FPPN ---
Subjective Remarks Mrs. Cohen was afebrile with stable vital signs overnight. Patient reports increased R flank/back pain overnight and increased lower abdominal pain this morning. Patient also reports increased fatigue yesterday and today. Patient states that she did make gains Patient reports that she has been voiding and stooling normally. No chest pain or shortness of breath. (Austin Thompson MD, R3) Objective Vitals Vital Signs Date Time Temp Pulse Resp B/P (MAP) Pulse Ox O2 Delivery O2 Flow Rate FiO2 10/18/17 08:00 97.6 69 20 154/64 (94) 96 10/18/17 04:00 97.9 67 16 153/70 (97) 95 10/18/17 00:00 97.3 65 16 130/60 (83) 95 10/17/17 20:15 Nasal Cannula 2.00 10/17/17 20:00 98.8 75 14 143/66 (91) 93 10/17/17 19:53 96 Nasal Cannula 2.00 10/17/17 17:40 Nasal Cannula 2.00 10/17/17 16:16 Nasal Cannula 2.00 10/17/17 16:06 98.9 72 18 136/64 (88) 95 10/17/17 12:26 97.8 64 18 131/60 (83) 96 10/17/17 12:18 Nasal Cannula 2.00 I/O 10/17/17 10/17/17 10/17/17 10/18/17 10/18/17 10/18/17 07:00 15:00 23:00 07:00 15:00 23:00 Intake Total 900 ml 600 ml 480 ml Output Total 700 ml 1200 ml 1550 ml Balance 200 ml -600 ml -1070 ml Intake Oral 900 ml 600 ml 480 ml Output Urine Total 700 ml 1200 ml 1550 ml # Voids 1 # Bowel Movements 1 0 1 (Austin Thompson MD, R3) Result Diagram: 10/18/1742410/18/17424 Imaging Last Impressions Chest X-Ray 10/18/17 0600 Signed Impressions: Service Date/Time: Wednesday, October 18, 2017 09:10 - CONCLUSION: Stable single view of the chest. Left small pleural effusion with persistent cardiomegaly Amrit Gutierres MD Chest Ultrasound 10/14/17 0000 Signed Impressions: Service Date/Time: Saturday, October 14, 2017 20:30 - CONCLUSION: Mild right pleural effusion Maycol Nance MD Abdomen/Pelvis CT 10/13/17 0000 Signed Impressions: Service Date/Time: September 09:53 - CONCLUSION: 1. Previously noted right perinephric drain has been removed. There has been interval development of small perinephric fluid collection status post drain removal. Perfusion defects are noted within both kidneys suggesting bilateral pyelonephritis (right much worse than left). 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 2. Anasarca is noted. 3. Stable mild to moderate-sized bilateral pleural effusions with adjacent compressive atelectasis. Daniel Portillo MD Renal Ultrasound 10/12/17 0000 Signed Impressions: Service Date/Time: Thursday, October 12, 2017 15:05 - CONCLUSION: 1. Total obscuration of the mid and lower pole of the right kidney secondary to air either within the kidney itself or directly adjacent to the kidney. No abscess seen involving the upper pole. 2. Left kidney is unremarkable. Corey Millan Jr., MD CT Angiography 10/10/17 1936 Signed Impressions: Service Date/Time: Tuesday, October 10, 2017 20:59 - CONCLUSION: 1. No pulmonary loss. 2. Mild to moderate bilateral pleural effusions with accompanying areas of atelectasis or consolidation of the lower lobes. 3. Mosaic perfusion pattern seen throughout the lungs likely related to mild edema. Maycol Nance MD Objective Remarks GENERAL: no apparent distress. SKIN: No lesions. EYES: Pupils equal round and reactive. CARDIOVASCULAR: Regular rate and rhythm; 2/6 systolic murmur at left sternal border. Normal peripheral perfusion RESPIRATORY: Only anterior lung laguna auscultated due to patient comfortable in bed and fatigued; normal rate without audible wheezing or crackles GASTROINTESTINAL: Abdomen mildly/moderately tender to palpation in lower quadrants bilaterally; improved Back: CVA percussion deferred today; continued R back pain which is worse from yesterday MUSCULOSKELETAL: Minimal edema in bilateral lower extremities distally NEUROLOGICAL: Awake and alert. Cranial nerves grossly normal. Motor and sensory function grossly within normal limits. Normal speech. (Austin Thompson MD, R3) A/P Assessment and Plan Mrs. Cohen is a 67-year-old female with: Discussed with Dr. Connell Discharge Planning Anticipate discharge back to [facility] 10/19 (Austin Thompson MD, R3) Attending Attestation Patient seen and examined. Case reviewed and discussed with Dr Thompson. Agree with plan of care as discussed with me and documented in the resident note. (Sariah Connell MD) Problem List: (1) Pyelonephritis ICD Codes: N12 - Pyelonephritis Status: Acute Plan: -ID Consulted: -Continue Levaquin 500mg q48hrs (10/15-) -Continue Zyvox 600mg BID (10/15-) -Urology consulted: -Continue IV antibiotics -No surgical intervention needed at this time -Nephrology consulted for DELLA -Pain control -Continue Oxycodone to 5mg q6hrs; patient instructed that she has an additional PRN 5mg evening dose so that patient may take 10mg in evenings -Continue scheduled Tylenol 650mg BID Impression: UA shows moderate leukocyte esterase, 33 WBC, occasional bacteria. Recent emphysematous pyelonephritis ((E Coli pansensitive with exception to Ampicillin/Unasyn) -> ureteral stent placed; R nephrostomy tube placed 09/27 and subsequently removed 10/05/2017) Urine culture initially with group D enterococcus >100,000K units Renal US- total obscuration of mid/lower pole of R kidney secondary to air w/in kidney or adjacent to kidney CT A/P- prior nephritic drain removed; interval development of small perinephric fluid collection s/p drain removal. Perfusion defects w/in both kidneys suggesting bilateral pyelonephritis (R much worse than L). Persistent air w/in the R collecting system indicating emphysematous R pyelonephritis. Anasarca noted; stable mild/moderate bilateral pleural effusions with adjacent compressive atelectasis Urine culture (10/10/2017)- enterococcus; sensitive to Daptomycin, Linezolid, Nitrofurantoin but resistant to Ampicillin, Ciprofloxacin, PCN, tetracycline, Vancomycin Urine culture (10/14/2017)- < 10K gram + bj Antibiotic History: Zosyn (10/11-10/15) Azithromycin (10/10-10/15) (2) DELLA (acute kidney injury) ICD Codes: N17.9 - Acute kidney failure, unspecified Status: Acute Plan: 10/18: Cr 3.26 <- 3.85 (10/17) <- 4.30 (10/16) <- 4.69 (10/15) <-- 1.24 ( 10/10) -Attempt to limit nephrotoxins and adjust renally excreted medications - Lisinopril held - Furosemide held - Gemfibrozil reduced to 300mg daily -Pravastatin reduced to 10mg daily -Will attempt to avoid contrast agents -Nephrology consulted -Suspect DELLA with non-oliguric ATN from infection/pyelonephritis. -Post void bladder scan - 174 ml residual -Discussed with Nephrology 10/18; assuming reassuring Cr can consider discharge 10/19 Impression: Patient with current emphysematous pyelonephritis and is s/p nephrostomy placement (09/27- 10/05 removal) and ureteral stent placed. Increasing Cr during hospitalization: Cr 1.124 on admission (10/10). Patient received Lasix diuresis during hospitalization (60mg IV 10/10, 20mg PO 10/11, 20mg IV 10/13-10/14). Patient also received Zosyn (10/10- 10/15). Urine eosinophils 2-5 -> 0-2 (3) Shortness of breath ICD Codes: R06.02 - Shortness of breath Status: Acute Plan: 10/18: Continued stable respirations on 2L O2 via NC. CXR 10/18 with small L pleural effusion, persistent cardiomegaly -Continue to monitor O2 saturations, RR, and provide O2 PRN -Continue incentive spirometry -ID consulted -Continue Levaquin and Zyvox for pyelonephritis -Cardiology consulted -Diuresis discontinued -Pulmonary etiologies of SOB work-up recommended due to recent reassuring echo -Continue ASA 325mg daily due to PFO likely causing recent CVA -Will discuss PFO closure in the future -Pulmonology consulted -Continue Duonebs, incentive spirometry -ABG, bedside PFTs obtained -Maintain sats at 92% -US chest to evaluate effusions performed; no need for thoracentesis Patient with worsening shortness of breath for the last week, during hospitalization and worsening upon discharge. No history of lung disease. Fever at rehabilitation facility with reported Tmax 103F. Suspect possible pneumonia CXR 10/11: Cardiomegaly with interstitial edema and small pleural effusions. Mild CHF; significantly improved CXR 10/18: small L pleural effusion, persistent cardiomegaly CTA: Mild to moderate bilateral pleural effusions with a combination areas of atelectasis or consolidation of the lower lobes. As a perfusion pattern likely related to mild edema. Echocardiogram on 09/19/17 shows ejection fraction of 65%; BNP ~1000 on admission ABG 10/14: pH 7.37, CO2 42, HCO3 24 Strep pneumo and Legionella urinary antigen negative Blood cultures negative x5 days (4) Sepsis ICD Codes: A41.9 - Sepsis, unspecified organism Status: Resolved Plan: 10/12: WBC count 12.2 <- 14.7 (10/11). Stable VS with resolution of tachycardia and tachypnea 10/14: Decreasing leukocytosis (WBC 12.2 10/13-> 11.2 10/14); stable vital signs 10/15: Stable vital signs. Leukocytosis resolved 10/16: Stable vital signs. Mild leukocytosis; WBC 12.9K 10/17: Stable vital signs. WBC 9.9 10/18: Worsening pain but stable vital signs. WBC 11.9 ID consulted: -Continue Levaquin 500mg q48hrs (10/15-) -Continue Zyvox 600mg BID (10/15-) Patient met SIRS criteria with tachycardia (HR 102) and tachypnea (RR) 22 on admission, WBC 22.4. Lactic acid 1.1. Shortness of breath on admission with recent emphysematous pyelonephritis (E Coli pansensitive with exception to Ampicillin/Unasyn) w/ nephrostomy placement -Blood cultures (10/10)- negative x5 days -Urine culture (10/10): Group D enterococcus -Resistant to Ampicillin, Ciprofloxacin, PCN, tetracycline, Vancomycin -Urine culture (10/14): <10K gram + bj Antibiotic History: Zosyn (10/11-10/15) Azithromycin (10/10-10/15) (5) Anemia ICD Codes: D64.9 - Anemia, unspecified Status: Acute Plan: Impression: Hemoglobin of 8.6 on admission-> 8 (10/12) -> .... 7.4 (10/17 ) -> 8.4 (10/18) ; stable since last hospitalization. Suspect secondary to anemia of chronic disease with prior iron deficiency (ferritin 1081, iron 17, TIBC 206) -Continue oral iron therapy -Multivitamin initiated -Will plan to transfuse if Hgb <7 (6) Hypertension Status: Chronic Plan: -Continue Labetalol 100mg BID -Continue Amlodipine 10mg daily -Hydralazine 10mg q8hrs PRN - Lisinopril held due to DELLA Impression: History of HTN; intermittent HTN during hospitalization (7) Diabetes mellitus ICD Codes: E11.9 - Type 2 diabetes mellitus without complications Status: Chronic Plan: -Regular Accuchecks -Continue home Levemir 10mg HS -Low dose sliding scale Novolog (patient has generally been using 0-3 U) Impression: Patient on home Levemir and sliding scale. Hemoglobin A1c 12.2 on last admission (8) Dyslipidemia ICD Codes: E78.5 - Dyslipidemia Status: Chronic Plan: Continue home Pravastatin -Dosage reduced to 10mg daily due to low GFR/DELLA (9) Buttock abrasion ICD Codes: S30.810A - Abrasion of lower back and pelvis, initial encounter Plan: -Wound care nurse consulted -Calazime barrier cream recommended for protection -Patient counselled regarding pressure offloading Impression: L buttock skin injury visualized on exam 10/17 2x1cm skin thickness loss on Wound care measurement (10) FEN Status: Acute Plan: Fluids: tolerating PO Electrolytes: wnl, continue to monitor Nutrition: diabetic diet DVT ppx: Heparin 5000U q12H (Austin Thompsno MD, R3) Problem Qualifiers (1) Sepsis: Qualified Codes: A41.9 - Sepsis, unspecified organism (2) Anemia: Qualified Codes: D64.9 - Anemia, unspecified (3) Buttock abrasion: Qualified Codes: S30.810A - Abrasion of lower back and pelvis, initial encounter Austin Thompson MD, R3 Oct 18, 2017 11:43 Sariah Connell MD Oct 18, 2017 17:08
--- NOTE | 2017-10-18 13:00 | HHI.IDPN ---
Subjective Subjective Remarks Patient is a 67-year-old female, known to me from her last hospitalization, came from the rehabilitation facility, brought into the hospital for evaluation of shortness of breath. She was also found to have fevers up to 103. She also had mentioned pain in her right lower back. 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 She had Escherichia coli in the blood and Escherichia coli in the urine. She underwent cystoscopy and placement of a ureteric stent. Patient however did not improved, and developed a perinephric fluid collection, underwent placement of a percutaneous drain to the right kidney. A culture from that also grew Escherichia coli. Patient improved from that infection, and she was switched over to oral Levaquin after being on IV antibiotic during her hospitalization. The plan was for her to get Levaquin for another 28 days, and urology was supposed to do follow-up and do imaging studies sleep duration she also had some shortness of breath which was felt to be related to fluid. She was better from her breathing problem when she was discharged to the rehabilitation facility. She came back this time complaining of shortness of breath. Patient was diuresed, and currently states her breathing is better. She was also found to have urinary tract infection, and her urine culture grew VRE. She has not been febrile. Her initial WBC was 22,000, and it's down to normal. Patient has been on IV Zosyn, and was switched to Zyvox yesterday. He is not complaining of any dysuria. Of note is that her renal function has been progressively worsening. Urine for eosinophils are positive. CT of the abdomen and pelvis showing presence of air in the right kidney which has improved, but there is a new perinephric fluid collection that was seen. There is also some findings of UTI on the left kidney. She is also complaining of pain on her right lower back. A shunt has very minimal congestion or cough. Infectious disease consultation has been requested to evaluate the patient. Notes reviewed Temps ok Breathing better Creatinine slightly lower Has good urine output Repeat urine culture before Zyvox with mixed bj Antibiotics Zyvox Levaquin Lines PIV Past Medical History Diabetes Hypertension Hypertriglyceridemia CAD Previous episodes of UTI Recent episode of emphysematous pyelonephritis with perinephric abscess Past Surgical History Cystoscopy and ureteral stent to the right Percutaneous drainage of a perinephric abscess section Allergies: Coded Allergies: metformin (Unverified Allergy, Severe, Numbness, 10/10/17) clonidine (Unverified Allergy, Unknown, 10/10/17) Objective . Vital Signs Date Time Temp Pulse Resp B/P (MAP) Pulse Ox O2 Delivery O2 Flow Rate FiO2 10/18/17 12:25 97.8 70 20 131/59 (83) 96 10/18/17 11:46 96 Nasal Cannula 2.00 10/18/17 08:00 97.6 69 20 154/64 (94) 96 10/18/17 04:00 97.9 67 16 153/70 (97) 95 10/18/17 00:00 97.3 65 16 130/60 (83) 95 10/17/17 20:15 Nasal Cannula 2.00 10/17/17 20:00 98.8 75 14 143/66 (91) 93 10/17/17 19:53 96 Nasal Cannula 2.00 10/17/17 17:40 Nasal Cannula 2.00 10/17/17 16:16 Nasal Cannula 2.00 10/17/17 16:06 98.9 72 18 136/64 (88) 95 . Laboratory Tests Test 10/17/17 04:40 10/18/17 04:25 White Blood Count 9.9 TH/MM3 11.9 TH/MM3 Red Blood Count 2.63 MIL/MM3 2.96 MIL/MM3 Hemoglobin 7.4 GM/DL 8.4 GM/DL Hematocrit 22.4 % 25.3 % Mean Corpuscular Volume 85.1 FL 85.5 FL Mean Corpuscular Hemoglobin 28.2 PG 28.3 PG Mean Corpuscular Hemoglobin Concent 33.1 % 33.0 % Red Cell Distribution Width 14.4 % 14.2 % Platelet Count 636 TH/MM3 709 TH/MM3 Mean Platelet Volume 6.1 FL 6.3 FL Neutrophils (%) (Auto) 58.0 % 65.0 % Lymphocytes (%) (Auto) 25.4 % 19.8 % Monocytes (%) (Auto) 10.7 % 9.8 % Eosinophils (%) (Auto) 4.7 % 4.5 % Basophils (%) (Auto) 1.2 % 0.9 % Neutrophils # (Auto) 5.8 TH/MM3 7.7 TH/MM3 Lymphocytes # (Auto) 2.5 TH/MM3 2.4 TH/MM3 Monocytes # (Auto) 1.1 TH/MM3 1.2 TH/MM3 Eosinophils # (Auto) 0.5 TH/MM3 0.5 TH/MM3 Basophils # (Auto) 0.1 TH/MM3 0.1 TH/MM3 CBC Comment DIFF FINAL DIFF FINAL Differential Comment Laboratory Tests Test 10/17/17 04:40 10/18/17 04:25 Blood Urea Nitrogen 27 MG/DL 26 MG/DL Creatinine 3.85 MG/DL 3.26 MG/DL Random Glucose 102 MG/DL 73 MG/DL Calcium Level 8.2 MG/DL 8.8 MG/DL Sodium Level 132 MEQ/L 132 MEQ/L Potassium Level 4.2 MEQ/L 3.9 MEQ/L Chloride Level 98 MEQ/L 97 MEQ/L Carbon Dioxide Level 25.0 MEQ/L 24.9 MEQ/L Anion Gap 9 MEQ/L 10 MEQ/L Estimat Glomerular Filtration Rate 14 ML/MIN 17 ML/MIN Imaging RADIOLOGY STUDIES/FILMS REVIEWED Chest X-Ray 10/18/17 0600 Signed Impressions: Service Date/Time: Wednesday, October 18, 2017 09:10 - CONCLUSION: Stable single view of the chest. Left small pleural effusion with persistent cardiomegaly Amrit Gutierres MD Chest X-Ray 10/14/17 0000 Signed Impressions: Service Date/Time: Saturday, October 14, 2017 16:58 - CONCLUSION: Left lower lobe opacity and left effusion. Eric Petty MD Chest Ultrasound 10/14/17 0000 Signed Impressions: Service Date/Time: Saturday, October 14, 2017 20:30 - CONCLUSION: Mild right pleural effusion Maycol Nance MD Abdomen/Pelvis CT 10/13/17 0000 Signed Impressions: Service Date/Time: September 09:53 - CONCLUSION: 1. Previously noted right perinephric drain has been removed. There has been interval development of small perinephric fluid collection status post drain removal. Perfusion defects are noted within both kidneys suggesting bilateral pyelonephritis (right much worse than left). 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 2. Anasarca is noted. 3. Stable mild to moderate-sized bilateral pleural effusions with adjacent compressive atelectasis. Daniel Portillo MD Renal Ultrasound 10/12/17 0000 Signed Impressions: Service Date/Time: Thursday, October 12, 2017 15:05 - CONCLUSION: 1. Total obscuration of the mid and lower pole of the right kidney secondary to air either within the kidney itself or directly adjacent to the kidney. No abscess seen involving the upper pole. 2. Left kidney is unremarkable. Corey Millan Jr., MD CT Angiography 10/10/17 1936 Signed Impressions: Service Date/Time: Tuesday, October 10, 2017 20:59 - CONCLUSION: 1. No pulmonary loss. 2. Mild to moderate bilateral pleural effusions with accompanying areas of atelectasis or consolidation of the lower lobes. 3. Mosaic perfusion pattern seen throughout the lungs likely related to mild edema. Maycol Nance MD Physical Exam GENERAL: awake and alert, looks comfortable SKIN: Warm and dry. No generalized rash, no ecchymoses and no evidence of embolic lesions. HEAD: Atraumatic. Normocephalic. No temporal wasting, or tenderness. EYES: [place] conjunctiva. No petechia or hemorrhage. Pupils equal, round and reactive to light. Extraocular movements full and intact. No scleral icterus. No injection or drainage. EARS, NOSE AND THROAT: Nose without bleeding or purulent nasal discharge. No sinus tenderness. Mucous membranes pink and moist. No oral lesions noted. No exudate. No oral thrush. NECK: Trachea midline. Supple and not tender, no meningeal signs CARDIOVASCULAR: Regular rate and rhythm. No murmurs, rubs or gallops heard RESPIRATORY: Clear to auscultation. Breath sounds equal bilaterally. No rales , wheezing or rhonchi. Decreased breath sounds at the bases ABDOMEN: Soft, non-tender, nondistended. Bowel sounds present and normoactive. No guarding. No rebound. No organomegaly. BACK: No spine tenderness, tender on palpation R paraspinal area EXTREMITIES: No clubbing, cyanosis, or edema.No joint effusion, has good ROM. No calf tenderness. Well perfused and warm. NEUROLOGICAL: Grossly non-focal PSYCHIATRIC: Normal affect, calm and cooperative. LINE: No evidence of infection Assessment & Plan Remarks IMPRESSION Episode of SOB, ?fluid, ?CHF - better - clinically does not like an infectious process Hx empyhsematous pyelonephritis and R perinephric abscess - S/P placement of ureteral stent and percutaneous drainage of the abscess, C/S with E coli UTI, with VRE Renal insufficiency - urine (+) eos - ?due to infection - no evidence of obstruction on CT - creatinine decreasing RECOMMENDATION Continue Levaquin - would like to continue as planned for her initial problem with E coli sepsis - give Levaquin until Oct 8 Continue Zyvox, possibly 14 days Monitor progress Seems to be stabilizing from ID standpoint Ann Hoffmann MD Oct 18, 2017 13:00
--- NOTE | 2017-10-18 18:08 | HHI.PR ---
Subjective Remarks Seems better today. On O2 2L.Chest Xray shows only a small left Effusion. Output better and renal profile is better.. On antibiotics per ID. CR 3.2 Objective Vital Signs Date Time Temp Pulse Resp B/P (MAP) Pulse Ox O2 Delivery O2 Flow Rate FiO2 10/18/17 16:00 Nasal Cannula 2.00 10/18/17 16:00 98.3 74 20 148/65 (92) 96 10/18/17 12:25 97.8 70 20 131/59 (83) 96 10/18/17 12:00 Nasal Cannula 2.00 10/18/17 11:46 96 Nasal Cannula 2.00 10/18/17 08:00 97.6 69 20 154/64 (94) 96 10/18/17 07:15 Nasal Cannula 2.00 10/18/17 04:00 97.9 67 16 153/70 (97) 95 10/18/17 00:00 97.3 65 16 130/60 (83) 95 10/17/17 20:15 Nasal Cannula 2.00 10/17/17 20:00 98.8 75 14 143/66 (91) 93 10/17/17 19:53 96 Nasal Cannula 2.00 I/O 10/17/17 10/17/17 10/17/17 10/18/17 10/18/17 10/18/17 07:00 15:00 23:00 07:00 15:00 23:00 Intake Total 900 ml 600 ml 480 ml 240 ml Output Total 700 ml 1200 ml 1550 ml 1850 ml Balance 200 ml -600 ml -1070 ml -1610 ml Intake Oral 900 ml 600 ml 480 ml 240 ml Output Urine Total 700 ml 1200 ml 1550 ml 1850 ml Bladder Scan Volume Amount 174 ml # Voids 1 0 # Bowel Movements 1 0 1 Result Diagram: 10/18/1742410/18/17424 Objective Remarks GENERAL: This is a moderately obese middle-aged white female who is alert, anxious and in no acute distress. HEAD, EYES, EARS, NOSE, THROAT: Head normocephalic. The pupils are reactive and equal. Tongue is moist. Throat is clear. NECK: No bruits. No thyroid enlargement. No lymphadenopathy. CHEST: Equal movements with basilar crackles with occasional wheeze bilaterally. HEART: The heart sounds are irregular. S1 and S2 with no murmur. ABDOMEN: Abdomen soft and protuberant with mild epigastric tenderness. Bowel sounds are active. No organomegaly. EXTREMITIES: Edema 1+ with decreased pulses. NEUROLOGIC: Reflexes are 1+ with no gross motor deficits. Cranial nerves are grossly intact. RECTAL: Rectal exam is deferred. SKIN: No lesions. Assessment and Plan Assessment and Plan IMPRESSION: 1. Bibasilar pulmonary infiltrates with pleural effusion. 2. Pulmonary edema, resolving. 3. Urinary tract infection and VRE. 4. Hypertension. 5. Diabetes mellitus type 2. 6. History of pyelonephritis.DELLA. 7. Chronic Kidney Disease Plan : 1. Continue O2 at 2 L. 2. Continue antibiotics per ID 3. Cont Nebs qid , duoneb. 4. Will hold off on thoracentesis for now. 5. CBC,BMP. Callie Mcneil MD Oct 18, 2017 18:08
[2017-10-18] MEDS: PRAVASTATIN SOD 10 MG TAB PO SCH (20:09)
[2017-10-18] MEDS: INSULIN DETEMIR 100 UNITS/ML VIAL SQ SCH (21:10)
[2017-10-19] VITALS: BP 136/63; PULSE 73; RESP 18; TEMP 98.3; O2SAT 95
[2017-10-19] MEDS: HEPARIN SODIUM - SQ 10,000 UNITS/ML VIAL SQ SCH ×2 (00:16→12:37)
[2017-10-19 04:00] VITALS: BP 130/61; PULSE 74; RESP 20; TEMP 98.8; O2SAT 96
[2017-10-19 05:48] LABS: AUTOMATED NEUTROPHIL # 7.6 TH/MM3 (1.8-7.7); BASOPHIL # 0.1 TH/MM3 (0-0.2); BASOPHIL % 0.9 % (0.0-2.0); EOSINOPHIL # 0.5 TH/MM3 (0-0.4); EOSINOPHIL % 4.2 % (0.0-4.0); HEMATOCRIT 23.6 % (35.0-46.0); HEMO FLAGS DIFF FINAL; LYMPH % 23.4 % (9.0-44.0); LYMPHOCYTE # 2.8 TH/MM3 (1.0-4.8); MEAN CELL VOLUME 84.6 FL (80.0-100.0); MEAN CORPUSCULAR HEMOGLOBIN 28.8 PG (27.0-34.0); MONO % 8.9 % (0.0-8.0); NEUT % 62.6 % (16.0-70.0); PLATELET COUNT 653 TH/MM3 (150-450); RED BLOOD COUNT 2.78 MIL/MM3 (4.00-5.30); RED CELL DISTRIBUTION WIDTH 14.4 % (11.6-17.2); WHITE BLOOD COUNT 12.2 TH/MM3 (4.0-11.0)
[2017-10-19 06:13] LABS: BICARBONATE 25.8 MEQ/L (21.0-32.0)
[2017-10-19 08:00] VITALS: BP 175/71; PULSE 71; RESP 18; TEMP 97.9; O2SAT 98
[2017-10-19] MEDS: INSULIN ASPART SUPPLEMENTAL SCALE SQ SCH ×2 (08:00→12:00)
[2017-10-19] MEDS: MUPIROCIN 2% OINT 1 APPLIC/GM SYR EACH NARE SCH (09:00)
[2017-10-19] MEDS: LABETALOL HCL 100 MG TAB PO SCH (09:10)
[2017-10-19] MEDS: MULTIVITAMIN TAB PO SCH (09:10)
[2017-10-19] MEDS: ASPIRIN EC 325 MG TABEC PO SCH (09:10)
[2017-10-19] MEDS: GEMFIBROZIL 600 MG TAB PO SCH (09:10)
[2017-10-19] MEDS: LEVOFLOXACIN 500 MG TAB PO SCH (09:10)
[2017-10-19] MEDS: LINEZOLID 600 MG TAB PO SCH (09:11)
[2017-10-19] MEDS: ACETAMINOPHEN 325 MG TAB PO SCH (09:11)
[2017-10-19] MEDS: DOCUSATE SODIUM 50 MG/SENNA 8.6 MG TAB PO SCH (09:11)
[2017-10-19] MEDS: FERROUS SULFATE 325 MG (65 MG ELEMENTAL IRON) TAB PO SCH (09:11)
[2017-10-19] MEDS: LACTOBACILLUS ACIDOPHILUS TAB PO SCH (09:11)
[2017-10-19] MEDS: SODIUM CHLORIDE 0.9% FLUSH 10 ML FLUSH IV FLUSH SCH (09:12)
[2017-10-19 12:00] VITALS: BP 153/69; PULSE 74; RESP 18; TEMP 97.9; O2SAT 96
[2017-10-19] MEDS ORDERED: RESP: ALBUTEROL 2.5 MG/IPRATROPIUM 0.5 MG NEB (SCH) NEB (12:00)
--- NOTE | 2017-10-19 12:12 | HHI.DCPOC ---
Discharge Care Plan Diagnosis: (1) Emphysematous pyelonephritis (2) Shortness of breath (3) DELLA (acute kidney injury) Goals to Promote Your Health * To prevent worsening of your condition and complications * To maintain your health at the optimal level Directions to Meet Your Goals Take your medications as prescribed Follow your dietary instruction Follow activity as directed Keep your appointments as scheduled Take your immunizations and boosters as scheduled If your symptoms worsen call your PCP, if no PCP go to Urgent Care Center or Emergency Room Smoking is Dangerous to Your Health. Avoid second hand smoke Call the 24-hour hour crisis hotline for domestic abuse at Austin Thompson MD, R3 Oct 19, 2017 12:12
[2017-10-19] MEDS ORDERED: Albuterol-Ipratropium Neb NEB (12:29)
[2017-10-19] MEDS ORDERED: LABE100T2 PO (12:29)
[2017-10-19] MEDS ORDERED: PERI PO (12:29)
[2017-10-19] MEDS ORDERED: THERTAB15 PO (12:29)
[2017-10-19] MEDS ORDERED: NOVOLOGSS SQ (12:29)
[2017-10-19] MEDS ORDERED: LACT PO (12:29)
[2017-10-19] MEDS ORDERED: GEMF600 PO (12:29)
[2017-10-19] MEDS ORDERED: ASPI325T33 PO (12:29)
[2017-10-19] MEDS ORDERED: ZYVO600T PO (12:29)
[2017-10-19] MEDS ORDERED: OXYC-392 PO ×2 (12:29)
[2017-10-19] MEDS ORDERED: ACET325T15 PO (12:29)
[2017-10-19] MEDS ORDERED: BACTOIN EACH NARE (12:29)
[2017-10-19] MEDS ORDERED: PRAV10TA PO (12:29)
--- NOTE | 2017-10-19 12:45 | HHI.PR ---
Subjective Remarks Seems better today. Off O2 sat 94. Chest Xray shows only a small left Effusion.No need for Tap. Output better and renal profile is better. . On antibiotics per ID. CR is better. Objective Vital Signs Date Time Temp Pulse Resp B/P (MAP) Pulse Ox O2 Delivery O2 Flow Rate FiO2 10/19/17 12:00 97.9 74 18 153/69 (97) 96 10/19/17 08:00 97.9 71 18 175/71 (105) 98 10/19/17 04:12 Nasal Cannula 2.00 Humidified 10/19/17 04:00 98.8 74 20 130/61 (84) 96 10/19/17 00:00 98.3 73 18 136/63 (87) 95 10/19/17 00:00 Nasal Cannula 2.00 Humidified 10/18/17 20:00 Nasal Cannula 2.00 Humidified 10/18/17 20:00 98.0 82 20 139/87 (104) 96 10/18/17 16:00 Nasal Cannula 2.00 10/18/17 16:00 98.3 74 20 148/65 (92) 96 I/O 10/18/17 10/18/17 10/18/17 10/19/17 10/19/17 10/19/17 07:00 15:00 23:00 07:00 15:00 23:00 Intake Total 480 ml 240 ml 400 ml Output Total 1550 ml 1850 ml 850 ml Balance -1070 ml -1610 ml -450 ml Intake Oral 480 ml 240 ml 400 ml Output Urine Total 1550 ml 1850 ml 850 ml Bladder Scan Volume Amount 174 ml # Voids 0 # Bowel Movements 1 0 Result Diagram: 10/19/1715 10/19/17 0515 Objective Remarks GENERAL: This is a moderately obese middle-aged white female who is alert, anxious and in no acute distress. HEAD, EYES, EARS, NOSE, THROAT: Head normocephalic. The pupils are reactive and equal. Tongue is moist. Throat is clear. NECK: No bruits. No thyroid enlargement. No lymphadenopathy. CHEST: Equal movements with basilar crackles . HEART: The heart sounds are irregular. S1 and S2 with no murmur. ABDOMEN: Abdomen soft and protuberant with no tenderness. Bowel sounds are active. No organomegaly. EXTREMITIES: Edema 1+ with decreased pulses. NEUROLOGIC: Reflexes are 1+ with no gross motor deficits. Cranial nerves are grossly intact. RECTAL: Rectal exam is deferred. SKIN: No lesions. Assessment and Plan Assessment and Plan IMPRESSION: 1. Bibasilar pulmonary infiltrates with pleural effusion.Resolving 2. Pulmonary edema, resolving. 3. Urinary tract infection and VRE. 4. Hypertension. 5. Diabetes mellitus type 2. 6. History of pyelonephritis.DELLA. 7. Chronic Kidney Disease Plan : 1. D/C O2 if sat >92. 2. Continue antibiotics per ID 3. Cont Nebs qid , duoneb.PRN 4. NO thoracentesis for now. 5. To rehab and will see as OP in 3 weeks Callie Mcneil MD Oct 19, 2017 12:45
--- NOTE | 2017-10-19 12:48 | HHI.FPPN ---
Subjective Remarks Mrs. Cohen was afebrile with stable VS overnight (isolated SBP 175 this morning ; otherwise normotensive). O2 saturations >95% on 2 L O2 via NC. Mrs. Cohen reports that she feels better today than yesterday with improved energy; patient was able to ambulate 180 feet with physical therapy. Patient does not report chest pain or shortness of breath. Patient reports improvement in abdominal pain after a bowel movement last night. Patient has continued R side pain but states that it is tolerable; patient rates her pain as 6/10 in severity. Patient continues to urinate well. (Austin Thompson MD, R3) Objective Vitals Vital Signs Date Time Temp Pulse Resp B/P (MAP) Pulse Ox O2 Delivery O2 Flow Rate FiO2 10/19/17 12:00 97.9 74 18 153/69 (97) 96 10/19/17 08:00 97.9 71 18 175/71 (105) 98 10/19/17 04:12 Nasal Cannula 2.00 Humidified 10/19/17 04:00 98.8 74 20 130/61 (84) 96 10/19/17 00:00 98.3 73 18 136/63 (87) 95 10/19/17 00:00 Nasal Cannula 2.00 Humidified 10/18/17 20:00 Nasal Cannula 2.00 Humidified 10/18/17 20:00 98.0 82 20 139/87 (104) 96 10/18/17 16:00 Nasal Cannula 2.00 10/18/17 16:00 98.3 74 20 148/65 (92) 96 I/O 10/18/17 10/18/17 10/18/17 10/19/17 10/19/17 10/19/17 07:00 15:00 23:00 07:00 15:00 23:00 Intake Total 480 ml 240 ml 400 ml Output Total 1550 ml 1850 ml 850 ml Balance -1070 ml -1610 ml -450 ml Intake Oral 480 ml 240 ml 400 ml Output Urine Total 1550 ml 1850 ml 850 ml Bladder Scan Volume Amount 174 ml # Voids 0 # Bowel Movements 1 0 (Austin Thompson MD, R3) Result Diagram: 10/19/1715 10/19/17 0515 Imaging Last Impressions Chest X-Ray 10/18/17 06 Signed Impressions: Service Date/Time: Wednesday, October 18, 2017 09:10 - CONCLUSION: Stable single view of the chest. Left small pleural effusion with persistent cardiomegaly Amrit Gutierres MD Chest Ultrasound 10/14/17 0000 Signed Impressions: Service Date/Time: Saturday, October 14, 2017 20:30 - CONCLUSION: Mild right pleural effusion Maycol Nance MD Abdomen/Pelvis CT 10/13/17 0000 Signed Impressions: Service Date/Time: September 09:53 - CONCLUSION: 1. Previously noted right perinephric drain has been removed. There has been interval development of small perinephric fluid collection status post drain removal. Perfusion defects are noted within both kidneys suggesting bilateral pyelonephritis (right much worse than left). 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 2. Anasarca is noted. 3. Stable mild to moderate-sized bilateral pleural effusions with adjacent compressive atelectasis. Daniel Portillo MD Renal Ultrasound 10/12/17 0000 Signed Impressions: Service Date/Time: Thursday, October 12, 2017 15:05 - CONCLUSION: 1. Total obscuration of the mid and lower pole of the right kidney secondary to air either within the kidney itself or directly adjacent to the kidney. No abscess seen involving the upper pole. 2. Left kidney is unremarkable. Corey Millan Jr., MD CT Angiography 10/10/171935 Signed Impressions: Service Date/Time: Tuesday, October 10, 2017 20:59 - CONCLUSION: 1. No pulmonary loss. 2. Mild to moderate bilateral pleural effusions with accompanying areas of atelectasis or consolidation of the lower lobes. 3. Mosaic perfusion pattern seen throughout the lungs likely related to mild edema. Maycol Nance MD Objective Remarks GENERAL: no apparent distress. SKIN: No lesions. EYES: Pupils equal round and reactive. CARDIOVASCULAR: Regular rate and rhythm; 2/6 systolic murmur at left sternal border. Normal peripheral perfusion RESPIRATORY: Only anterior lung laguna auscultated due to patient comfortable in bed and fatigued; normal rate without audible wheezing or crackles GASTROINTESTINAL: Mild tenderness to palpation in lower quadrants bilaterally; improved Back: CVA percussion deferred today; continued R back pain which is worse from yesterday MUSCULOSKELETAL: Minimal edema in bilateral lower extremities distally NEUROLOGICAL: Awake and alert. Cranial nerves grossly normal. Motor and sensory function grossly within normal limits. Normal speech. (Austin Thompson MD, R3) A/P Assessment and Plan Mrs. Cohen is a 67-year-old female with: Discussed with Dr. Connell Discharge Planning Planned discharge back to [facility] 10/19 (Austin Thompson MD, R3) Attending Attestation Patient seen and examined. Case reviewed and discussed with Dr Thompson. Agree with plan of care as discussed with me and documented in the resident note. (Sariah Connell MD) Problem List: (1) Pyelonephritis ICD Codes: N12 - Pyelonephritis Status: Acute Plan: -ID Consulted: -Continue Levaquin 500mg q48hrs (10/15-10/28) -Levaquin initially renally dosed for Cr clearance <20; patient with current improvement in DELLA (current Cr clearance 27 10/19) which will likely bring Cr clearance >40 and cause need for daily -Continue Zyvox 600mg BID (10/15-11/04) -f/u with ID as outpatient -Urology consulted: -No surgical intervention needed at this time -Will f/u with Urology near completion of antibiotic therapy -Nephrology consulted for DELLA -f/u in 1 week -Pain control -Continue Oxycodone to 5mg q6hrs; additional PRN 5mg evening dose so that patient may take 10mg in evenings -Continue scheduled Tylenol 650mg BID Impression: UA shows moderate leukocyte esterase, 33 WBC, occasional bacteria. Recent emphysematous pyelonephritis ((E Coli pansensitive with exception to Ampicillin/Unasyn) -> ureteral stent placed; R nephrostomy tube placed 09/27 and subsequently removed 10/05/2017) Urine culture initially with group D enterococcus >100,000K units Renal US- total obscuration of mid/lower pole of R kidney secondary to air w/in kidney or adjacent to kidney CT A/P- prior nephritic drain removed; interval development of small perinephric fluid collection s/p drain removal. Perfusion defects w/in both kidneys suggesting bilateral pyelonephritis (R much worse than L). Persistent air w/in the R collecting system indicating emphysematous R pyelonephritis. Anasarca noted; stable mild/moderate bilateral pleural effusions with adjacent compressive atelectasis Urine culture (10/10/2017)- enterococcus; sensitive to Daptomycin, Linezolid, Nitrofurantoin but resistant to Ampicillin, Ciprofloxacin, PCN, tetracycline, Vancomycin Urine culture (10/14/2017)- < 10K gram + bj Antibiotic History: Zosyn (10/11-10/15) Azithromycin (10/10-10/15) (2) DELLA (acute kidney injury) ICD Codes: N17.9 - Acute kidney failure, unspecified Status: Acute Plan: 10/19: Cr 2.74 <- 3.26 (10/18) <- 3.85 (10/17) <- 4.30 (10/16) <- 4.69 ( 10/15) <-- 1.24 (10/10) -Nephrology consulted -Suspect DELLA with non-oliguric ATN from infection/pyelonephritis. -Post void bladder scan - 174 ml residual -Discussed with Nephrology 10/19; due to downtrending Cr patient stable to discharge to [facility] -Will repeat Cr 10/21 so results can be available for Nephrology follow-up -Attempt to limit nephrotoxins and adjust renally excreted medications - Lisinopril held - Furosemide held - Gemfibrozil reduced to 300mg daily -Pravastatin reduced to 10mg daily Impression: Patient with current emphysematous pyelonephritis and is s/p nephrostomy placement (09/27- 10/05 removal) and ureteral stent placed. Increasing Cr during hospitalization: Cr 1.124 on admission (10/10). Patient received Lasix diuresis during hospitalization (60mg IV 10/10, 20mg PO 10/11, 20mg IV 10/13-10/14). Patient also received Zosyn (10/10- 10/15). Urine eosinophils 2-5 -> 0-2 (3) Shortness of breath ICD Codes: R06.02 - Shortness of breath Status: Acute Plan: 10/18: Continued stable respirations on 2L O2 via NC. CXR 10/18 with small L pleural effusion, persistent cardiomegaly 10/19: Patient breathing well. Patient completed walk test without need for home O2 -Continue to monitor O2 saturations, RR, and provide O2 PRN -Continue incentive spirometry -ID consulted -Continue Levaquin and Zyvox for pyelonephritis until treatment completed -Cardiology consulted -Pulmonary etiologies of SOB work-up recommended due to recent reassuring echo -Continue ASA 325mg daily due to PFO likely causing recent CVA -Will discuss PFO closure in the future -Pulmonology consulted -Continue Duonebs, incentive spirometry -ABG, bedside PFTs obtained; reassuring -Maintain sats at 92% -US chest to evaluate effusions performed -No need for thoracentesis Patient with worsening shortness of breath for the last week, during hospitalization and worsening upon discharge. No history of lung disease. Fever at rehabilitation facility with reported Tmax 103F. Suspect possible pneumonia CXR 10/11: Cardiomegaly with interstitial edema and small pleural effusions. Mild CHF; significantly improved CXR 10/18: small L pleural effusion, persistent cardiomegaly CTA: Mild to moderate bilateral pleural effusions with a combination areas of atelectasis or consolidation of the lower lobes. As a perfusion pattern likely related to mild edema. Echocardiogram on 09/19/17 shows ejection fraction of 65%; BNP ~1000 on admission ABG 10/14: pH 7.37, CO2 42, HCO3 24 Strep pneumo and Legionella urinary antigen negative Blood cultures negative x5 days (4) Sepsis ICD Codes: A41.9 - Sepsis, unspecified organism Status: Resolved Plan: 10/19: Improved pain; WBC 12.2. Patient with stable vital signs and has not met SIRS since 10/11 ID consulted: -Continue Levaquin 500mg q48hrs (10/15-10/28) -Recommend dosage adjustment based on Cr clearance improvement -Continue Zyvox 600mg BID (10/15-11/04) Patient met SIRS criteria with tachycardia (HR 102) and tachypnea (RR) 22 on admission, WBC 22.4. Lactic acid 1.1. Shortness of breath on admission with recent emphysematous pyelonephritis (E Coli pansensitive with exception to Ampicillin/Unasyn) w/ nephrostomy placement -Blood cultures (10/10)- negative x5 days -Urine culture (10/10): Group D enterococcus -Resistant to Ampicillin, Ciprofloxacin, PCN, tetracycline, Vancomycin -Urine culture (10/14): <10K gram + bj Antibiotic History: Zosyn (10/11-10/15) Azithromycin (10/10-10/15) (5) Anemia ICD Codes: D64.9 - Anemia, unspecified Status: Acute Plan: Impression: Hemoglobin of 8.6 on admission-> 8 (10/12) -> .... 7.4 (10/17 ) -> 8.4 (10/18) -> 8 (10/19) ; stable since last hospitalization. Suspect secondary to anemia of chronic disease with prior iron deficiency (ferritin 1081 , iron 17, TIBC 206) -Continue oral iron therapy -Multivitamin initiated -Will plan to transfuse if Hgb <7 (6) Hypertension Status: Chronic Plan: -Continue Labetalol 100mg BID -Continue Amlodipine 10mg daily - Lisinopril held due to DELLA Impression: History of HTN; intermittent HTN during hospitalization (7) Diabetes mellitus ICD Codes: E11.9 - Type 2 diabetes mellitus without complications Status: Chronic Plan: -Regular Accuchecks -Continue home Levemir 10mg HS -Low dose sliding scale Novolog (patient has generally been using 0-3 U) Impression: Patient on home Levemir and sliding scale. Hemoglobin A1c 12.2 on last admission (8) Dyslipidemia ICD Codes: E78.5 - Dyslipidemia Status: Chronic Plan: Continue home Pravastatin -Dosage reduced to 10mg daily due to low GFR/DELLA (9) Buttock abrasion ICD Codes: S30.810A - Abrasion of lower back and pelvis, initial encounter Plan: -Wound care nurse consulted -Calazime barrier cream recommended for protection -Patient counselled regarding pressure offloading -Discharge instructions acknowledged wound (10/19) Impression: L buttock skin injury visualized on exam 10/17 2x1cm skin thickness loss on Wound care measurement (10) FEN Status: Acute Plan: Fluids: tolerating PO Electrolytes: wnl, continue to monitor Nutrition: diabetic diet DVT ppx: Heparin 5000U q12H while in hospital (Austin Thompson MD, R3) Problem Qualifiers (1) Sepsis: Qualified Codes: A41.9 - Sepsis, unspecified organism (2) Anemia: Qualified Codes: D64.9 - Anemia, unspecified (3) Buttock abrasion: Qualified Codes: S30.810A - Abrasion of lower back and pelvis, initial encounter Austin Thompson MD, R3 Oct 19, 2017 12:48 Sariah Connell MD Oct 19, 2017 13:23
[2017-10-19] MEDS ORDERED: LEVA500T33 PO (14:35)
--- NOTE | 2017-10-19 18:48 | HHI.NPPN ---
Subjective History of Present Illness 67-year-old female with a past medical history of hypertension, diabetes mellitus, history of pyelonephritis with perinephric abscess who was admitted with complaint of worsening shortness of breath. I was called to see the patient because of elevated BUN and creatinine. The patient has a history of acute kidney injury before, and she was seen by me when she was admitted last month and had acute kidney injury. Additional Remarks Patient is alert, feeling better, abd. pain improved, seen in AM. Review of Systems General Constitutional: Fatigue Cardiovascular Cardiac: [place] Gastrointestinal Gastrointestinal: Abdominal Pain, Nausea & Vomiting Objective Data Data Vital Signs Date Time Temp Pulse Resp B/P (MAP) Pulse Ox O2 Delivery O2 Flow Rate FiO2 10/19/17 12:00 97.9 74 18 153/69 (97) 96 10/19/17 08:00 97.9 71 18 175/71 (105) 98 10/19/17 08:00 Nasal Cannula 2.00 10/19/17 04:12 Nasal Cannula 2.00 Humidified 10/19/17 04:00 98.8 74 20 130/61 (84) 96 10/19/17 00:00 98.3 73 18 136/63 (87) 95 10/19/17 00:00 Nasal Cannula 2.00 Humidified 10/18/17 20:00 Nasal Cannula 2.00 Humidified 10/18/17 20:00 98.0 82 20 139/87 (104) 96 -: 10/19/17 0515 10/19/17 0515 Physical Exam General Appearance: No Acute Distress, Comfortable Eyes Eye Exam: Pupils Equal Throat Throat Exam: Oral Mucosa [place] & Moist Neck Neck Exam: Neck Supple Pulmonary Resp Exam: Breath Sounds Equal, No Distress, Rhonchi, Decreased Bases Cardiology CV Exam: Regular, Normal Sinus Rhythm Gastrointestinal/Abdomen GI Exam: Soft, Non-Tender, Bowel Sounds Present, Distended Musculoskeletal MS Exam: Joints Intact, Normal Gait Integumentary Skin Exam: Dry, Intact Extremeties Extremities Exam: Trace Edema Neurologic Neuro Exam: Alert, Awake, Oriented Psychiatric Psych Exam: Appropriate Responses Assessment/Plan Assessment Summary: DELLA/Acute Renal Failure Problem List: (1) Essential hypertension ICD Codes: I10 - Essential hypertension Status: Acute (2) Obesity (BMI 30.0-34.9) ICD Codes: E66.9 - Obesity (BMI 30.0-34.9) Status: Chronic (3) Leukocytosis ICD Codes: D72.829 - Leukocytosis Status: Acute (4) Diabetes mellitus ICD Codes: E11.9 - Type 2 diabetes mellitus without complications Status: Chronic (5) Anemia ICD Codes: D64.9 - Anemia, unspecified Status: Acute (6) UTI (urinary tract infection) ICD Codes: N39.0 - Urinary tract infection, site not specified (7) Pyelonephritis ICD Codes: N12 - Pyelonephritis Status: Acute (8) DELLA (acute kidney injury) ICD Codes: N17.9 - Acute kidney failure, unspecified Status: Acute Plan Patient has mild chronic kidney disease and develop DELLA. Most likely ATN due to infection. Has been non oliguric. BP is stable. Creatinine improving and now it is 2.6 Continue antibiotics, on Levaquin and Zyvox. Follow the culture results.Avoid Nephrotoxins. For D/C, to follow in 2 weeks. Problem Qualifiers (1) Leukocytosis: Qualified Codes: D72.829 - Elevated white blood cell count, unspecified (2) Anemia: Qualified Codes: D64.9 - Anemia, unspecified (3) UTI (urinary tract infection): Qualified Codes: N39.0 - Urinary tract infection, site not specified Pita Huitron MD Oct 19, 2017 18:48
== END 2017-10-19 16:00 | DRG 871 ==
LOC: NEPC 18:36 → NEDA 21:31 → HCIS 10-11 00:29 → N04B 10-11 22:47
PROVIDERS: ADMIT Family Medicine; ATTEND Family Medicine
DX: A41.9 Sepsis, unspecified organism (principal); J18.9 Pneumonia, unspecified organism; N17.9 Acute kidney failure, unspecified; E11.22 Type 2 diabetes mellitus with diabetic chronic kidney disease; I50.9 Heart failure, unspecified; I12.9 Hypertensive chronic kidney disease with stage 1 through stage 4 chronic kidney disease, or unspecified chronic kidney disease; D63.8 Anemia in other chronic diseases classified elsewhere; S30.91XA Unspecified superficial injury of lower back and pelvis, initial encounter; Q21.1 Atrial septal defect; N12 Tubulo-interstitial nephritis, not specified as acute or chronic; N18.2 Chronic kidney disease, stage 2 (mild); Z79.4 Long term (current) use of insulin; E66.9 Obesity, unspecified; Z68.32 Body mass index [BMI] 32.0-32.9, adult; Z23 Encounter for immunization; I25.10 Atherosclerotic heart disease of native coronary artery without angina pectoris; Y95 Nosocomial condition; Z86.73 Personal history of transient ischemic attack (TIA), and cerebral infarction without residual deficits; Z16.11 Resistance to penicillins; E78.5 Hyperlipidemia, unspecified; B95.2 Enterococcus as the cause of diseases classified elsewhere; X58.XXXA Exposure to other specified factors, initial encounter; Y92.230 Patient room in hospital as the place of occurrence of the external cause
CPT/HCPCS: 36600; 71010; 71020; 71275; 74176; 76604; 76775; 76937; 80048; 80053; 81001; 82550; 82805; 82948; 83605; 83880; 84484; 85007; 85025; 85027; 85610; 85730; 87040; 87077; 87086; 87186; 87205; 87449; 90732; 93005; 94060; 94150; 94620; 94640; 94664; 96365; 96367; 96375; J0456; J1644; J1815; J1940; J2270; J2405; J2543; J7050; Q9967

== ENCOUNTER 2017-10-25 20:18 | Emergency (ER) | payer MEDICARE ==
[~2017-10-25] VITALS: Ht 157.5 cm; Wt 80.0 kg
[~2017-10-25 20:18] MED LIST changes: +ACET325T15 PO; +ASPI325T33 PO; +Albuterol-Ipratropium Neb NEB; +BACTOIN EACH NARE; -ECASA81 PO; +GEMF600 PO; -GEMF600T PO; +LABE100T2 PO; +LACT PO; +LEVA500T33 PO; -LEVA750T9 PO; -LISI40TA PO; +OXYC-392 PO; -OXYC-395 PO; +PERI PO; +PRAV10TA PO; -PRAV40TA PO; +THERTAB15 PO; +ZYVO600T PO
[2017-10-25 20:30] VITALS: BP 188/96; PULSE 90; RESP 16; TEMP 98.6; O2SAT 98
[2017-10-25 21:37] VITALS: BP 214/93; PULSE 98; RESP 16; TEMP 98.5; O2SAT 98
--- NOTE | 2017-10-25 21:37 | PD ---
HPI Chief Complaint: GI Complaint Time Seen by Provider: 21:30 Travel History International Travel<30 days: No Contact w/Intl Traveler<30days: No Traveled to known affect area: No History of Present Illness HPI 67-year-old female with history of hypertension, diabetes, recent admission for pulmonary edema, pyelonephritis, DELLA, and perinephric abscess, sent in from her long term/rehabilitation facility at [facility] for evaluation of nausea, vomiting, and generalized shakes. Patient has had these symptoms for the last 3 days. She occasionally has some episodes of vomiting. She is also having some mild abdominal cramping. No chest pain or dyspnea. She is not sure if she has had fevers. PFSH Past Medical History Arthritis: No Asthma: No Autoimmune Disease: No Blood Disorders: No Anxiety: No Depression: No Heart Rhythm Problems: No Cancer: No Cardiovascular Problems: Yes High Cholesterol: Yes Chemotherapy: No Chest Pain: No Congestive Heart Failure: No COPD: No Cerebrovascular Accident: No Diabetes: Yes Patient Takes Glucophage: No Diminished Hearing: No Endocrine: Yes Gastrointestinal Disorders: Yes (abdominal pain on right) GERD: No Genitourinary: No Headaches: Yes Hiatal Hernia: No Heparin Induced Thrombocytopen: No Hypertension: No Immune Disorder: No Implanted Vascular Access Dvce: No Kidney Stones: No Musculoskeletal: No Neurologic: Yes Psychiatric: No Reproductive: No Respiratory: Yes Immunizations Current: No Migraines: No Radiation Therapy: No Renal Failure: No Seizures: No Sickle Cell Disease: No Sleep Apnea: No Thyroid Disease: No Ulcer: No Tetanus Vaccination: < 5 Years Influenza Vaccination: Yes Menopausal: Yes Past Surgical History Abdominal Surgery: No AICD: No Arteriovenous Shunt: No Cardiac Surgery: No Section: Yes Ear Surgery: No Endocrine Surgery: No Eye Surgery: No Genitourinary Surgery: Yes (STENT RIGHT KIDNEY- 3 WEEKS AGO) Gynecologic Surgery: Yes ( 1990) Insulin Pump: No Joint Replacement: No Neurologic Surgery: No Oral Surgery: No Pacemaker: No Thoracic Surgery: No Other Surgery: Yes (CSECT) Social History Alcohol Use: No Tobacco Use: No Substance Use: No Allergies-Medications (Allergen,Severity, Reaction): Coded Allergies: metformin (Unverified Allergy, Severe, Numbness, 10/25/17) clonidine (Unverified Allergy, Unknown, 10/25/17) Reported Meds & Prescriptions Reported Meds & Active Scripts Active Levaquin (Levofloxacin) 500 Mg Tablet 500 Mg PO Q48H Take every other day starting 10/21. PLEASE REMIND YOUR PHYSICIANS THAT DOSAGE SHOULD BE ADJUSTED BASED ON KIDNEYS [Albuterol-Ipratropium Neb] 1 AMPULE Nebu 1 Ampule NEB BID NEB Acidophilus/l-Sporogenes (Lactobacillus Acidophilus) 35 Million Cell-25 Million Cell Tab 1 Tab PO Q12HR Pravastatin 10 Mg Tab 10 Mg PO DAILY Thera Tablet (Multivitamin with Folic Acid) 400 Mcg Tablet 1 Tab PO DAILY Novolog Inj (Insulin Aspart) 100 Unit/Ml Inj 1 Unit SQ ACHS SLIDING SCALE Gnp Senna Plus 8.6-50 mg (Sennosides-Docusate Sodium) 8.6 Mg-50 Mg Tab 1 Tab PO BID Bactroban Nasal Oint (Mupirocin Nasal Oint) 2% Oint 1 Applic EACH NARE BID Single-use tubes. Eq Acetaminophen (Acetaminophen) 325 Mg Tab 650 Mg PO BID Oxycodone (Oxycodone HCl) 5 Mg Tab 5 Mg PO Q6H PRN Oxycodone (Oxycodone HCl) 5 Mg Tab 5 Mg PO HS PRN Aspirin EC (Aspirin) 325 Mg Tabdr 325 Mg PO DAILY Labetalol (Labetalol HCl) 100 Mg Tab 100 Mg PO Q12HR Lopid (Gemfibrozil) 600 Mg Tab 300 Mg PO DAILY Take 30 minutes prior to meal Zyvox (Linezolid) 600 Mg Tab 600 Mg PO Q12HR Levemir Inj (Insulin Detemir) 1,000 unit/ 10 ML Vial 10 Units SQ HS Do not mix with any other Insulin. Ferosul (Ferrous Sulfate) 325 Mg (65 Mg Iron) Tablet 325 Mg PO BID Amlodipine (Amlodipine Besylate) 10 Mg Tab 10 Mg PO DAILY Review of Systems Except as stated in HPI: all other systems reviewed are Neg Physical Exam Narrative GENERAL: Well-developed, well-nourished, overweight, comfortable, no apparent distress. SKIN: Focused skin assessment warm/dry. No rash. HEAD: Atraumatic. Normocephalic. EYES: Pupils equal and round. No scleral icterus. No injection or drainage. ENT: No nasal bleeding or discharge. Mucous membranes pink and moist. NECK: Trachea midline. No JVD. CARDIOVASCULAR: Regular rate and rhythm. RESPIRATORY: No accessory muscle use. Clear to auscultation. Breath sounds equal bilaterally. GASTROINTESTINAL: Abdomen soft, non-tender, nondistended. MUSCULOSKELETAL: No obvious deformities. No clubbing. No cyanosis. No edema. NEUROLOGICAL: Awake and alert. No obvious cranial nerve deficits. Motor grossly within normal limits. Normal speech. PSYCHIATRIC: Appropriate mood and affect; insight and judgment normal. Data Data Last Documented VS Vital Signs Date Time Temp Pulse Resp B/P (MAP) Pulse Ox O2 Delivery O2 Flow Rate FiO2 10/25/17 22:36 84 16 189/83 (118) 99 Room Air 10/25/17 21:37 98.5 Orders Orders Complete Blood Count With Diff (10/25/17 21:31) Comprehensive Metabolic Panel (10/25/17 21:31) Prothrombin Time / Inr (Pt) (10/25/17 21:31) Act Partial Throm Time (Ptt) (10/25/17 21:31) Urinalysis - C+S If Indicated (10/25/17 21:31) Iv Access Insert/Monitor (10/25/17 21:31) Ecg Monitoring (10/25/17 21:31) Oximetry (10/25/17 21:31) Ondansetron Inj (Zofran Inj) (10/25/17 21:45) Sodium Chloride 0.9% Flush (Ns Flush) (10/25/17 21:45) Cath For Specimen (10/25/17 22:19) Urine Culture (10/25/17 22:40) Potassium Chloride (Kcl) (10/25/17 23:15) Labs Laboratory Tests Test 10/25/17 21:40 10/25/17 22:40 White Blood Count 10.6 TH/MM3 Red Blood Count 3.17 MIL/MM3 Hemoglobin 9.0 GM/DL Hematocrit 26.9 % Mean Corpuscular Volume 84.8 FL Mean Corpuscular Hemoglobin 28.4 PG Mean Corpuscular Hemoglobin Concent 33.5 % Red Cell Distribution Width 15.1 % Platelet Count 353 TH/MM3 Mean Platelet Volume 5.9 FL Neutrophils (%) (Auto) 60.8 % Lymphocytes (%) (Auto) 29.7 % Monocytes (%) (Auto) 5.6 % Eosinophils (%) (Auto) 2.7 % Basophils (%) (Auto) 1.2 % Neutrophils # (Auto) 6.4 TH/MM3 Lymphocytes # (Auto) 3.1 TH/MM3 Monocytes # (Auto) 0.6 TH/MM3 Eosinophils # (Auto) 0.3 TH/MM3 Basophils # (Auto) 0.1 TH/MM3 CBC Comment DIFF FINAL Differential Comment Prothrombin Time 12.0 SEC Prothromb Time International Ratio 1.1 RATIO Activated Partial Thromboplast Time 27.3 SEC Blood Urea Nitrogen 14 MG/DL Creatinine 1.26 MG/DL Random Glucose 134 MG/DL Total Protein 6.6 GM/DL Albumin 2.0 GM/DL Calcium Level 7.8 MG/DL Alkaline Phosphatase 78 U/L Aspartate Amino Transf (AST/SGOT) 13 U/L Alanine Aminotransferase (ALT/SGPT) LESS THAN 6 U/L Total Bilirubin 0.3 MG/DL Sodium Level 139 MEQ/L Potassium Level 3.0 MEQ/L Chloride Level 107 MEQ/L Carbon Dioxide Level 22.5 MEQ/L Anion Gap 10 MEQ/L Estimat Glomerular Filtration Rate 52 ML/MIN Urine Color LIGHT-YELLOW Urine Turbidity CLEAR Urine pH 6.5 Urine Specific Roberts 1.009 Urine Protein 100 mg/dL Urine Glucose (UA) NEG mg/dL Urine Ketones NEG mg/dL Urine Occult Blood MOD Urine Nitrite NEG Urine Bilirubin NEG Urine Urobilinogen LESS THAN 2.0 MG/DL Urine Leukocyte Esterase LARGE Urine RBC 68 /hpf Urine WBC 33 /hpf Urine Squamous Epithelial Cells <1 /hpf Urine Bacteria RARE /hpf Urine Mucus FEW /lpf Microscopic Urinalysis Comment CULTURE INDICATED MDM Medical Decision Making Medical Screen Exam Complete: Yes Emergency Medical Condition: Yes Differential Diagnosis Nausea, dehydration, UTI, pyelonephritis, metabolic abnormality Narrative Course Vital signs reviewed. CBC is remarkable for hemoglobin 9, hematocrit 26.9 which is slightly improved from her baseline. CMP is remarkable for creatinine 1.26, GFR 52 which is significantly improved even since being discharged last week. Potassium is 3.0 which was replaced orally. UA shows 100 protein, moderate occult blood, large leukocyte esterase, 60 RBCs, 33 wbc's, rare bacteria. Patient was given IV Zofran and is feeling much improved. With the patient and the patient's family were made aware of all findings. She is tolerating clear liquids orally. She is on Zyvox at the long term as the UTI that grew out during her most recent admission was sensitive to linezolid. Her abdominal exam is benign. She is stable for discharge back to her long term with follow-up with her primary care physician this week. I will give her prescription for Zofran. Patient informed on when to return to the emergency department. She verbalizes understanding and agreement with plan. Diagnosis Primary Impression: Nausea and vomiting Qualified Codes: R11.2 - Nausea with vomiting, unspecified Referrals: Primary Care Physician 1 day Additional Instructions: Follow-up with your primary care physician in the next 1-2 days. Stay hydrated with plenty of fluids. Return to the emergency department for worsening symptoms or any other concerns. Scripts Ondansetron Odt (Zofran Odt) 4 Mg Tab 4 MG SL Q8HR Y for Nausea/Vomiting, #20 TAB 0 Refills Prov: Jean-Paul Frazier MD 10/25/17 Disposition: 03 DISCHARGE TO SNF Condition: Stable Jean-Paul Frazier MD Oct 25, 2017 21:37
[2017-10-25] MEDS ORDERED: ONDANSETRON HCL 4 MG/2 ML VIAL IVP ONE (21:45)
[2017-10-25] MEDS ORDERED: SODIUM CHLORIDE 0.9% FLUSH 10 ML FLUSH IV FLUSH PRN (21:45)
[2017-10-25 22:17] LABS: AUTOMATED NEUTROPHIL # 6.4 TH/MM3 (1.8-7.7); BASOPHIL # 0.1 TH/MM3 (0-0.2); BASOPHIL % 1.2 % (0.0-2.0); EOSINOPHIL # 0.3 TH/MM3 (0-0.4); EOSINOPHIL % 2.7 % (0.0-4.0); HEMATOCRIT 26.9 % (35.0-46.0); HEMO FLAGS DIFF FINAL; LYMPH % 29.7 % (9.0-44.0); LYMPHOCYTE # 3.1 TH/MM3 (1.0-4.8); MEAN CELL VOLUME 84.8 FL (80.0-100.0); MEAN CORPUSCULAR HEMOGLOBIN 28.4 PG (27.0-34.0); MEAN CORPUSCULAR HGB CONC 33.5 % (32.0-36.0); MONO % 5.6 % (0.0-8.0); NEUT % 60.8 % (16.0-70.0); PLATELET COUNT 353 TH/MM3 (150-450); RED BLOOD COUNT 3.17 MIL/MM3 (4.00-5.30); RED CELL DISTRIBUTION WIDTH 15.1 % (11.6-17.2); WHITE BLOOD COUNT 10.6 TH/MM3 (4.0-11.0)
[2017-10-25 22:18] LABS: APTT (PATIENT) 27.3 SEC (24.3-30.1); INTERNATIONAL NORMALIZED RATIO 1.1 RATIO
[2017-10-25 22:26] LABS: ALT (GPT) LESS THAN 6 U/L (10-53)
[2017-10-25 22:27] LABS: ANION GAP 10 MEQ/L (5-15); AST (GOT) 13 U/L (15-37); BICARBONATE 22.5 MEQ/L (21.0-32.0); BLOOD UREA NITROGEN 14 MG/DL (7-18); CHLORIDE 107 MEQ/L (98-107); GLOMERULAR FILTRATION RATE 52 ML/MIN (>89); SODIUM (NA) 139 MEQ/L (136-145)
[2017-10-25 22:28] LABS: ALKALINE PHOSPHATASE 78 U/L (45-117); TOTAL BILIRUBIN ADULT 0.3 MG/DL (0.2-1.0)
[2017-10-25 22:36] VITALS: BP 189/83; PULSE 84; RESP 16; O2SAT 99
[2017-10-25 23:02] LABS: BACTERIA, URINE RARE /hpf; BLOOD, URINE MOD (NEG); COMMENT (UR) CULTURE INDICATED; CULTURE IF INDICATED CULTURE INDICATED; GLUCOSE,URINE NEG (NEG); KETONE, URINE NEG (NEG); MUCUS URINE FEW /lpf (OCC); NITRITE,URINE NEG (NEG); PH, URINE 6.5 (5.0-8.5); SQUAMOUS EPITHELIAL CELL URINE <1 /hpf (0-5); URINE COLOR LIGHT-YELLOW (YELLW/STRAW)
[2017-10-25] MEDS ORDERED: POTASSIUM CHLORIDE 20 MEQ CONTROLLED RELEASE TAB PO ONE (23:15)
[2017-10-25] MEDS ORDERED: ZOFR4TAB3 SL (23:18)
== END 2017-10-26 06:20 ==
LOC: NEPD 20:18
DX: R11.2 Nausea with vomiting, unspecified (principal); N39.0 Urinary tract infection, site not specified; B96.5 Pseudomonas (aeruginosa) (mallei) (pseudomallei) as the cause of diseases classified elsewhere; E78.00 Pure hypercholesterolemia, unspecified; E11.9 Type 2 diabetes mellitus without complications; I10 Essential (primary) hypertension; Z16.23 Resistance to quinolones and fluoroquinolones
CPT/HCPCS: 80053; 81001; 85025; 85610; 85730; 87077; 87086; 87186; 96374; 99284; J2405

== ENCOUNTER 2017-11-01 08:09 | Inpatient (IN) | payer MEDICARE ==
[~2017-11-01] VITALS: Ht 157.5 cm; Wt 74.5 kg
[2017-11-01] VITALS (9 sets, daily range): BP systolic 136–195; BP diastolic 62–87; PULSE 89–119; RESP 16–23; TEMP 97–101.9; O2SAT 91–100
[~2017-11-01 08:09] MED LIST changes: +ZOFR4TAB3 SL
[2017-11-01] MEDS ORDERED: MORPHINE SULFATE 4 MG/ML INJ IV PUSH ONE (08:30)
[2017-11-01] MEDS ORDERED: SODIUM CHLORIDE 0.9% FLUSH 10 ML FLUSH IVF PRN (08:30)
--- NOTE | 2017-11-01 08:39 | PD ---
HPI Chief Complaint: Cardiac Complaint Time Seen by Provider: 08:18 Travel History International Travel<30 days: No Contact w/Intl Traveler<30days: No Traveled to known affect area: No History of Present Illness HPI This is a 67-year-old female who has a history of recurrent emphysematous pyelonephritis and congestive heart failure was had multiple recent admissions who presents to the emergency department having had onset of chest discomfort last night, constant, severe, described as sharp in the left side and then tightness in the center of her chest, worse with deep breathing feeling like she can't take a deep breath. She feels short of breath and anxious. She has had some productive cough with clear sputum. She has had some subjective fevers and chills. She's not had any urinary symptoms. She says she was starting to feel better after her discharge from the hospital and she had been doing physical therapy at [facility]. PFSH Past Medical History Arthritis: No Asthma: No Autoimmune Disease: No Blood Disorders: No Anxiety: No Depression: No Heart Rhythm Problems: No Cancer: No Cardiovascular Problems: Yes High Cholesterol: Yes Chemotherapy: No Chest Pain: No Congestive Heart Failure: No COPD: No Cerebrovascular Accident: No Diabetes: Yes Patient Takes Glucophage: No Diminished Hearing: No Endocrine: Yes Gastrointestinal Disorders: Yes (abdominal pain on right) GERD: No Genitourinary: No Headaches: Yes Hiatal Hernia: No Heparin Induced Thrombocytopen: No Hypertension: No Immune Disorder: No Implanted Vascular Access Dvce: No Kidney Stones: No Musculoskeletal: No Neurologic: Yes Psychiatric: No Reproductive: No Respiratory: Yes Immunizations Current: No Migraines: No Radiation Therapy: No Renal Failure: No Seizures: No Sickle Cell Disease: No Sleep Apnea: No Thyroid Disease: No Ulcer: No ?: Not Menopausal: Yes Past Surgical History Abdominal Surgery: No AICD: No Arteriovenous Shunt: No Cardiac Surgery: No Section: Yes Ear Surgery: No Endocrine Surgery: No Eye Surgery: No Genitourinary Surgery: Yes (STENT RIGHT KIDNEY) Gynecologic Surgery: Yes ( 1990) Insulin Pump: No Joint Replacement: No Neurologic Surgery: No Oral Surgery: No Pacemaker: No Thoracic Surgery: No Other Surgery: Yes (CSECT) Social History Alcohol Use: No Tobacco Use: No Substance Use: No Allergies-Medications (Allergen,Severity, Reaction): Coded Allergies: metformin (Unverified Allergy, Severe, Numbness, 11/01/17) clonidine (Unverified Allergy, Unknown, 11/01/17) Reported Meds & Prescriptions Reported Meds & Active Scripts Active Zofran Odt (Ondansetron Odt) 4 Mg Tab 4 Mg SL Q8HR PRN Levaquin (Levofloxacin) 500 Mg Tablet 500 Mg PO Q48H Take every other day starting 10/21. PLEASE REMIND YOUR PHYSICIANS THAT DOSAGE SHOULD BE ADJUSTED BASED ON KIDNEYS Pravastatin 10 Mg Tab 10 Mg PO DAILY Thera Tablet (Multivitamin with Folic Acid) 400 Mcg Tablet 1 Tab PO DAILY Novolog Inj (Insulin Aspart) 100 Unit/Ml Inj 1 Unit SQ ACHS SLIDING SCALE Gnp Senna Plus 8.6-50 mg (Sennosides-Docusate Sodium) 8.6 Mg-50 Mg Tab 1 Tab PO BID Bactroban Nasal Oint (Mupirocin Nasal Oint) 2% Oint 1 Applic EACH NARE BID Single-use tubes. Eq Acetaminophen (Acetaminophen) 325 Mg Tab 650 Mg PO BID Oxycodone (Oxycodone HCl) 5 Mg Tab 5 Mg PO Q6H PRN Aspirin EC (Aspirin) 325 Mg Tabdr 325 Mg PO DAILY Labetalol (Labetalol HCl) 100 Mg Tab 100 Mg PO Q12HR Lopid (Gemfibrozil) 600 Mg Tab 300 Mg PO DAILY Take 30 minutes prior to meal Zyvox (Linezolid) 600 Mg Tab 600 Mg PO Q12HR Levemir Inj (Insulin Detemir) 1,000 unit/ 10 ML Vial 10 Units SQ HS Do not mix with any other Insulin. Ferosul (Ferrous Sulfate) 325 Mg (65 Mg Iron) Tablet 325 Mg PO BID Amlodipine (Amlodipine Besylate) 10 Mg Tab 10 Mg PO DAILY Reported Duoneb (Ipratropium-Albuterol Neb) 0.5-2.5 Mg/3 Ml Neb 3 Ml NEB BID Review of Systems Except as stated in HPI: all other systems reviewed are Neg Physical Exam Narrative GENERAL: Uncomfortable appearing. SKIN: Focused skin assessment warm and dry. HEAD: Atraumatic. Normocephalic. EYES: Pupils equal and round. No injection or drainage. ENT: Moist mucous membranes NECK: Trachea midline. CARDIOVASCULAR: Regular rate and rhythm. No murmur appreciated. No edema. RESPIRATORY: Rales in the left lower lung base. Mild tachypnea. GASTROINTESTINAL: Abdomen soft, non-tender, nondistended. MUSCULOSKELETAL: No obvious deformities. NEUROLOGICAL: Awake and alert. No obvious cranial nerve deficits. Moving all extremities. PSYCHIATRIC: Appropriate mood and affect; insight and judgment normal. Data Data Last Documented VS Vital Signs Date Time Temp Pulse Resp B/P (MAP) Pulse Ox O2 Delivery O2 Flow Rate FiO2 11/01/17 10:00 99 Nasal Cannula 2.00 11/01/17 09:59 17 11/01/17 08:25 101.0 110 154/76 (102) Orders Orders Complete Blood Count With Diff (11/01/17 08:26) Comprehensive Metabolic Panel (11/01/17 08:26) B-Type Natriuretic Peptide (11/01/17 08:26) Act Partial Throm Time (Ptt) (11/01/17 08:26) Prothrombin Time / Inr (Pt) (11/01/17 08:26) Troponin I (11/01/17 08:26) Urinalysis - C+S If Indicated (11/01/17 08:26) Blood Culture (11/01/17 08:26) Iv Access Insert/Monitor (11/01/17 08:26) Ecg Monitoring (11/01/17 08:26) Oximetry (11/01/17 08:26) Oxygen Administration (11/01/17 08:26) Chest, Single Ap (11/01/17 08:26) Ct Pulmonary Angiogram (11/01/17 08:26) Sodium Chloride 0.9% Flush (Ns Flush) (11/01/17 08:30) Morphine Inj (Morphine Inj) (11/01/17 08:30) Iohexol 350 Inj (Omnipaque 350 Inj) (11/01/17 09:57) Lactic Acid (11/01/17 10:26) Furosemide Inj (Lasix Inj) (11/01/17 10:45) Linezolid 600 Mg Premix (Zyvox 600 Mg Pr (11/01/17 10:45) Admit Order (Ed Use Only) (11/01/17 11:15) Labs Laboratory Tests Test 11/01/17 08:35 11/01/17 08:36 11/01/17 09:40 11/01/17 10:22 B-Type Natriuretic Peptide 594 PG/ML Blood Urea Nitrogen 19 MG/DL Creatinine 1.31 MG/DL Random Glucose 269 MG/DL Total Protein 8.1 GM/DL Albumin 2.6 GM/DL Calcium Level 9.1 MG/DL Alkaline Phosphatase 95 U/L Aspartate Amino Transf (AST/SGOT) 26 U/L Alanine Aminotransferase (ALT/SGPT) 8 U/L Total Bilirubin 0.4 MG/DL Sodium Level 133 MEQ/L Potassium Level 4.3 MEQ/L Chloride Level 100 MEQ/L Carbon Dioxide Level 21.5 MEQ/L Anion Gap 12 MEQ/L Estimat Glomerular Filtration Rate 49 ML/MIN Troponin I 0.30 NG/ML Prothrombin Time 11.4 SEC Prothromb Time International Ratio 1.1 RATIO Activated Partial Thromboplast Time 25.0 SEC White Blood Count 9.9 TH/MM3 Red Blood Count 2.81 MIL/MM3 Hemoglobin 7.8 GM/DL Hematocrit 23.5 % Mean Corpuscular Volume 83.5 FL Mean Corpuscular Hemoglobin 27.9 PG Mean Corpuscular Hemoglobin Concent 33.4 % Red Cell Distribution Width 15.4 % Platelet Count 186 TH/MM3 Mean Platelet Volume 7.4 FL Neutrophils (%) (Auto) 70.8 % Lymphocytes (%) (Auto) 23.0 % Monocytes (%) (Auto) 4.3 % Eosinophils (%) (Auto) 0.6 % Basophils (%) (Auto) 1.3 % Neutrophils # (Auto) 7.0 TH/MM3 Lymphocytes # (Auto) 2.3 TH/MM3 Monocytes # (Auto) 0.4 TH/MM3 Eosinophils # (Auto) 0.1 TH/MM3 Basophils # (Auto) 0.1 TH/MM3 CBC Comment DIFF FINAL Differential Comment Test 11/01/17 11:00 Lactic Acid Level 1.6 mmol/L [facility] Medical Decision Making Medical Screen Exam Complete: Yes Emergency Medical Condition: Yes Interpretation(s) Fever, tachycardia, hypertensive No leukocytosis Anemia Renal insufficiency Troponin is 0.3 elevated from prior BNP is 594 Last 24 hours Impressions Chest X-Ray 11/01/17825 Signed Impressions: Service Date/Time: Wednesday, November 01, 2017 08:44 - CONCLUSION: No acute disease. Gold Dorantes MD FACR CT Angiography 11/01/17825 Signed Impressions: Service Date/Time: Wednesday, November 01, 2017 09:54 - CONCLUSION: 1. Moderate congestive failure with trace bilateral pleural effusions 2. Right hilar and mediastinal adenopathy, nonspecific but deserves followup. Gold Dorantes MD FACR Differential Diagnosis Pneumonia, congestive heart failure, pulmonary embolism, pleural effusion, myocardial infarction Narrative Course This is a 67-year-old female who presents to the emergency department with chest discomfort and shortness of breath on the left side of her chest that started overnight. She is a complex history with recent admissions for pyelonephritis and congestive heart failure. She is placed in a monitor and an IV was established. She was found to be mildly hypoxic and febrile. Chest x- ray demonstrates volume overloaded BNP is elevated with an elevated troponin. She was given 20 mg of IV Lasix. She also appears to be septic with a fever and tachycardia. I suspect her source is urine similar to past. She was given a dose of IV linezolid but a pink ID consult is warranted as she has been on outpatient antibiotics and failed. Diagnosis Primary Impression: Sepsis Qualified Codes: A41.9 - Sepsis, unspecified organism Additional Impression: Congestive heart failure Qualified Codes: I50.9 - Heart failure, unspecified Admitting Information Admitting Physician Requests: it Rozina Grove MD Nov 01, 2017 08:39
[2017-11-01 09:09] LABS: GLOMERULAR FILTRATION RATE 49 ML/MIN (>89)
[2017-11-01 09:27] LABS: ALKALINE PHOSPHATASE 95 U/L (45-117); ALT (GPT) 8 U/L (10-53); TOTAL BILIRUBIN ADULT 0.4 MG/DL (0.2-1.0)
[2017-11-01 09:28] LABS: ANION GAP 12 MEQ/L (5-15); AST (GOT) 26 U/L (15-37); BICARBONATE 21.5 MEQ/L (21.0-32.0); BLOOD UREA NITROGEN 19 MG/DL (7-18); CHLORIDE 100 MEQ/L (98-107); POTASSIUM 4.3 MEQ/L (3.5-5.1); SODIUM (NA) 133 MEQ/L (136-145)
--- NOTE | 2017-11-01 09:46 | RADRPT ---
EXAM DATE/TIME: 11/01/2017 08:44 [facility] COMPARISON: CHEST SINGLE AP, October 14, 2017, 16:58. INDICATIONS : Chest pain and cough. MEDICAL HISTORY : Hypercholesterolemia. Methicillin-resistant Staphylococcus aureus. Numbness bilateral feet. Krystina betes. Measles. SURGICAL HISTORY : None. section. Right kidney stent. ENCOUNTER: Initial ACUITY: 1 day PAIN SCORE: 3/10 LOCATION: Bilateral chest FINDINGS: A single view of the chest demonstrates the lungs to be symmetrically aerated without evidence of mas s, infiltrate or effusion. The cardiomediastinal contours are unremarkable. Osseous structures are intact. CONCLUSION: No acute disease. Gold Dorantes MD FACR on November 01, 2017 at 9:43 Board Certified Radiologist. This report was verified electronically.
[2017-11-01] MEDS ORDERED: IOHEXOL 350 MG/ML 10 ML VIAL (for RAD DIAG) IVCONTRAST ONE (09:57)
--- NOTE | 2017-11-01 10:05 | RADRPT ---
EXAM DATE/TIME: 11/01/2017 09:54 [facility] COMPARISON: CT PULMONARY ANGIOGRAM, October 10, 2017, 20:59. INDICATIONS : Chest pain and shortness of breath. IV CONTRAST: 75 cc Omnipaque 350 (iohexol) IV RADIATION DOSE: 23.21 CTDIvol (mGy) MEDICAL HISTORY : Cardiovascular disease. SURGICAL HISTORY : section. ENCOUNTER: Initial ACUITY: 1 day PAIN SCALE: 2/10 LOCATION: chest TECHNIQUE: Volumetric scanning of the chest was performed using a pulmonary embolism protocol MIP images were re constructed. Using automated exposure control and adjustment of the mA and/or kV according to patien t size, radiation dose was kept as low as reasonably achievable to obtain optimal diagnostic quality images. DICOM format image data is available electronically for review and comparison. Follow-up recommendations for detected pulmonary nodules are based at a minimum on nodule size and pa tient risk factors according to Fleischner Society Guidelines. FINDINGS: There is moderate congestive failure and interstitial edema. There is cardiomegaly, biventricular wi thout pericardial effusion. There is no evidence for central pulmonary emboli There is nonspecific mediastinal and right hilar adenopathy. The adenopathy is abnormal base: Number but not size The hilum is indeterminate There are no suspicious lung lesions identified Upper abdomen visualized is unremarkable. CONCLUSION: 1. Moderate congestive failure with trace bilateral pleural effusions 2. Right hilar and mediastinal adenopathy, nonspecific but deserves followup. Gold Dorantes MD FACR on November 01, 2017 at 10:00 Board Certified Radiologist. This report was verified electronically.
[2017-11-01 10:29] LABS: INTERNATIONAL NORMALIZED RATIO 1.1 RATIO; PROTHROMBIN TIME - PATIENT 11.4 SEC (9.8-11.6)
[2017-11-01 10:38] LABS: BASOPHIL # 0.1 TH/MM3 (0-0.2); BASOPHIL % 1.3 % (0.0-2.0); EOSINOPHIL # 0.1 TH/MM3 (0-0.4); EOSINOPHIL % 0.6 % (0.0-4.0); HEMATOCRIT 23.5 % (35.0-46.0); HEMO FLAGS DIFF FINAL; LYMPHOCYTE # 2.3 TH/MM3 (1.0-4.8); MEAN CELL VOLUME 83.5 FL (80.0-100.0); MEAN CORPUSCULAR HEMOGLOBIN 27.9 PG (27.0-34.0); MEAN CORPUSCULAR HGB CONC 33.4 % (32.0-36.0); MONO % 4.3 % (0.0-8.0); NEUT % 70.8 % (16.0-70.0); PLATELET COUNT 186 TH/MM3 (150-450); RED BLOOD COUNT 2.81 MIL/MM3 (4.00-5.30); RED CELL DISTRIBUTION WIDTH 15.4 % (11.6-17.2); WHITE BLOOD COUNT 9.9 TH/MM3 (4.0-11.0)
[2017-11-01] MEDS ORDERED: LINEZOLID 600 MG PREMIX 300 ML IV ONE (10:45)
[2017-11-01] MEDS ORDERED: FUROSEMIDE 20 MG/2 ML VIAL IV PUSH ONE (10:45)
--- NOTE | 2017-11-01 11:38 | HHI.FPPN ---
Objective Vitals Vital Signs Date Time Temp Pulse Resp B/P (MAP) Pulse Ox O2 Delivery O2 Flow Rate FiO2 11/01/17 10:00 99 Nasal Cannula 2.00 11/01/17 09:59 17 11/01/17 08:25 101.0 110 22 154/76 (102) 100 Nasal Cannula 2.00 11/01/17 08:17 115 Room Air 11/01/17 08:10 100.3 119 22 173/75 (107) 91 Room Air Result Diagram: 11/01/17 1022 11/01/17 0836 Kacey Clark MD R1 Nov 01, 2017 11:38
[2017-11-01] MEDS ORDERED: NALOXONE HCL 0.4 MG/ML AMP IV PUSH PRN (11:45)
[2017-11-01] MEDS ORDERED: SODIUM CHLORIDE 0.9% FLUSH 10 ML FLUSH IV FLUSH PRN (11:45)
[2017-11-01] MEDS ORDERED: IPRASOL NEB (12:15)
[2017-11-01] MEDS ORDERED: PILL SPLITTER OTHER PRN (12:45)
[2017-11-01] MEDS: RESP: ALBUTEROL 2.5 MG/IPRATROPIUM 0.5 MG NEB (SCH) NEB ×2 (12:56→19:10)
[2017-11-01] MEDS: FERROUS SULFATE 325 MG (65 MG ELEMENTAL IRON) TAB PO SCH ×2 (13:36→21:50)
[2017-11-01] MEDS: ASPIRIN EC 325 MG TABEC PO SCH (13:36)
[2017-11-01] MEDS: LEVOFLOXACIN 500 MG TAB PO SCH (13:36)
[2017-11-01] MEDS: LABETALOL HCL 100 MG TAB PO SCH ×2 (13:36→21:50)
[2017-11-01] MEDS: HEPARIN SODIUM - SQ 10,000 UNITS/ML VIAL SQ SCH (13:37)
[2017-11-01] MEDS: GEMFIBROZIL 600 MG TAB PO SCH (13:37)
[2017-11-01] MEDS: SODIUM CHLORIDE 0.9% FLUSH 10 ML FLUSH IV FLUSH SCH ×2 (13:37→21:50)
[2017-11-01] MEDS: SODIUM CHLOR 0.9% 1000 ML INJ 1,000 ML IV SCH ×3 (13:37→22:15)
[2017-11-01] MEDS: INSULIN ASPART SUPPLEMENTAL SCALE SQ SCH ×3 (13:48→21:00)
[2017-11-01] MEDS: ONDANSETRON HCL 4 MG/2 ML VIAL IVP PRN (14:21)
--- NOTE | 2017-11-01 14:26 | HHI.HP ---
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 Patient reports that she woke up at 2am this morning with tightness in her chest and gasping for air. She states the tightness is located on her right side of her chest and radiates turns to a sharp 9/10 pain as it radiates to the left side underneath her left breast. She reports that the pain is worse with deep breaths and with coughing. The SOB and chest pain is slightly better with sitting up. She endorses nausea, TURNER, dizziness, and had 2 episodes of nonbloody vomiting yesterday. She also endorses fever and chills. She endorses b/l flank pain, but reports that the pain has been improving. She denies dysuria. She was recently discharged on 10/19 with Levaquin and Zyvox. She reports being compliant with her medications. She was discharged from [facility] for rehab 1 day ago. Review of Systems Constitutional: COMPLAINS OF: Fever, Chills, DENIES: Fatigue Eyes: DENIES: Blurred vision Ears, nose, mouth, throat: DENIES: Throat pain Respiratory: COMPLAINS OF: Cough, Shortness of breath Cardiovascular: COMPLAINS OF: Chest pain, Orthopnea, DENIES: Palpitations, Lower Extremity Edema Gastrointestinal: COMPLAINS OF: Nausea, Vomiting, DENIES: Abdominal pain Genitourinary: DENIES: Urinary frequency, Urgency, Dysuria Musculoskeletal: DENIES: Joint pain Neurologic: COMPLAINS OF: Headache, DENIES: Localized weakness, Paresthesias Psychiatric: DENIES: Confusion Past Family Social History Past Medical History DM HTN HLD PFO emphysematous pyelonephritis/perinephrinic abscess Past Surgical History C section (1990) Allergies: Coded Allergies: metformin (Unverified Allergy, Severe, Numbness, 11/01/17) clonidine (Unverified Allergy, Unknown, 11/01/17) Family History Father-heart disease Mother-DM, HTN Grandma-cancer Social History Recently discharged from [facility] for rehab. Prior to last hospitalization, patient worked and was fully independent. Tobacco: never Alcohol: never Illicit drug use: never Physical Exam Vital Signs Vital Signs Date Time Temp Pulse Resp B/P (MAP) Pulse Ox O2 Delivery O2 Flow Rate FiO2 11/01/17 13:34 100.5 109 16 194/84 (120) 95 Nasal Cannula 2.00 11/01/17 12:57 95 21 11/01/17 12:24 100.0 99 22 179/77 (111) 94 Nasal Cannula 2.00 11/01/17 10:00 99 Nasal Cannula 2.00 11/01/17 09:59 17 11/01/17 08:25 101.0 110 22 154/76 (102) 100 Nasal Cannula 2.00 11/01/17 08:17 115 Room Air 11/01/17 08:10 100.3 119 22 173/75 (107) 91 Room Air Physical Exam GENERAL: pleasant lady lying in bed in slight discomfort SKIN: Mucous membranes slightly dry HEAD: Atraumatic. Normocephalic. No temporal or scalp tenderness. EYES: Pupils equal round and reactive. Extraocular motions intact. No scleral icterus. No injection or drainage. ENT: Nose without bleeding, purulent drainage or septal hematoma. Throat without erythema, tonsillar hypertrophy or exudate. Uvula midline. Airway patent. NECK: Trachea midline. No JVD or lymphadenopathy. Supple, nontender, no meningeal signs. CARDIOVASCULAR: Regular rate and rhythm without murmurs, gallops, or rubs. Capillary refill < 2 secs. RESPIRATORY: Moderate crackles in b/l lung bases GASTROINTESTINAL: Abdomen soft, non-tender, nondistended. No hepato-splenomegaly , or palpable masses. No guarding. MUSCULOSKELETAL: No lower extremity edema. B/l calves mildly tender to palpation. NEUROLOGICAL: Awake and alert. Cranial nerves II through XII intact. Motor and sensory grossly within normal limits. Five out of 5 muscle strength in all muscle groups. Normal speech. Laboratory Laboratory Tests Test 11/01/17 08:35 11/01/17 08:36 11/01/17 09:40 11/01/17 10:22 B-Type Natriuretic Peptide 594 Blood Urea Nitrogen 19 Creatinine 1.31 Random Glucose 269 Total Protein 8.1 Albumin 2.6 Calcium Level 9.1 Alkaline Phosphatase 95 Aspartate Amino Transf (AST/SGOT) 26 Alanine Aminotransferase (ALT/SGPT) 8 Total Bilirubin 0.4 Sodium Level 133 Potassium Level 4.3 Chloride Level 100 Carbon Dioxide Level 21.5 Anion Gap 12 Estimat Glomerular Filtration Rate 49 Troponin I 0.30 Prothrombin Time 11.4 Prothromb Time International Ratio 1.1 Activated Partial Thromboplast Time 25.0 White Blood Count 9.9 Red Blood Count 2.81 Hemoglobin 7.8 Hematocrit 23.5 Mean Corpuscular Volume 83.5 Mean Corpuscular Hemoglobin 27.9 Mean Corpuscular Hemoglobin Concent 33.4 Red Cell Distribution Width 15.4 Platelet Count 186 Mean Platelet Volume 7.4 Neutrophils (%) (Auto) 70.8 Lymphocytes (%) (Auto) 23.0 Monocytes (%) (Auto) 4.3 Eosinophils (%) (Auto) 0.6 Basophils (%) (Auto) 1.3 Neutrophils # (Auto) 7.0 Lymphocytes # (Auto) 2.3 Monocytes # (Auto) 0.4 Eosinophils # (Auto) 0.1 Basophils # (Auto) 0.1 CBC Comment DIFF FINAL Differential Comment Test 11/01/17 11:00 Lactic Acid Level 1.6 Date/Time Source Procedure Growth Status 11/01/17 08:35 Blood Peripheral Aerobic Blood Culture Pending Received 11/01/17 08:35 Blood Peripheral Anaerobic Blood Culture Pending Received Result Diagram: 11/01/17 1022 11/01/17 0836 Septic Shock Reassessment Heart: Regular rate and rhythm Lungs: Crackles Skin: Dry Peripheral Pulses: Bounding Right Radial Bounding Left Radial Bounding Right Popliteal Bounding Left Popliteal Bounding Right Dorsalis Pedis Bounding Left Dorsalis Pedis Bounding Right Posterior Tibial Bounding Left Posterior Tibial Capillary Refill: <2 seconds Caprini VTE Risk Assessment Caprini VTE Risk Assessment: Mod/High Risk (score >= 2) Caprini Risk Assessment Model Point Value = 1 Point Value = 2 Point Value = 3 Point Value = 5 Age 41-60 Minor surgery BMI > 25 kg/m2 Swollen legs Varicose veins or History of unexplained or recurrent spontaneous Oral contraceptives or hormone replacement Sepsis (< 1 month) Serious lung disease, including pneumonia (< 1 month) Abnormal pulmonary function Acute myocardial infarction Congestive heart failure (< 1 month) History of inflammatory bowel disease Medical patient at bed rest Age 61-74 Arthroscopic surgery Major open surgery (> 45 min) Laparoscopic surgery (> 45 min) Malignancy Confined to bed (> 72 hours) Immobilizing plaster cast Central venous access Age >= 75 History of VTE Family history of VTE Factor V Leiden Prothrombin [id number] Lupus anticoagulant Anticardiolipin antibodies Elevated serum homocysteine Heparin-induced thrombocytopenia Other congenital or acquired thrombophilia Stroke (< 1 month) Elective arthroplasty Hip, pelvis, or leg fracture Acute spinal cord injury (< 1 month) Prophylaxis Regimen Total Risk Factor Score Risk Level Prophylaxis Regimen 0-1 Low Early ambulation 2 Moderate Order ONE of the following: *Sequential Compression Device (SCD) *Heparin 5000 units SQ BID 3-4 Higher Order ONE of the following medications: *Heparin 5000 units SQ TID *Enoxaparin/Lovenox 40 mg SQ daily (WT < 150 kg, CrCl > 30 mL/min) *Enoxaparin/Lovenox 30 mg SQ daily (WT < 150 kg, CrCl > 10-29 mL/min) *Enoxaparin/Lovenox 30 mg SQ BID (WT < 150 kg, CrCl > 30 mL/min) AND/OR *Sequential Compression Device (SCD) 5 or more Highest Order ONE of the following medications: *Heparin 5000 units SQ TID (Preferred with Epidurals) *Enoxaparin/Lovenox 40 mg SQ daily (WT < 150 kg, CrCl > 30 mL/min) *Enoxaparin/Lovenox 30 mg SQ daily (WT < 150 kg, CrCl > 10-29 mL/min) *Enoxaparin/Lovenox 30 mg SQ BID (WT < 150 kg, CrCl > 30 mL/min) AND *Sequential Compression Device (SCD) Assessment and Plan Assessment and Plan 67 yr old F w/ PMH of HTN, T2DM, CHF, and 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 Admitted for ACS r/o, sepsis most likely secondary to pyelonephritis, and CHF exacerbation. Code Status Full code Discussed Condition With Dr. Desai and Dr. Marlow Problem List: (1) Sepsis ICD Codes: A41.9 - Sepsis, unspecified organism Status: Resolved Plan: Patient with fever of 101 and tachycardia 99-11 on admission. Likely source of infection includes pyelonephritis despite abx treatment Lactic acid 1.6. No signs of organ dysfunction. WBC wnl UA and urine culture pending Blood cultures collected s/p 1x of Linezolid in ED Continue Linezolid 600mg IV q12h (10/15-11/04) and Levaquin 600mg PO q48h (10/15 -10/28) MIVF of 140mls/hr, will provide extra dose of lasix if needed due to CHF ID consulted, appreciate recs (2) Pyelonephritis ICD Codes: N12 - Pyelonephritis Status: Acute Plan: Please see plan above (3) Chest pain ICD Codes: R07.9 - Chest pain, unspecified Status: Acute Plan: Pleuritic chest pain. ACS r/o Troponin 0.30, 0.50 EKG sinus tachycardia Continue to trend troponin and EKG Consider Cardiology consult if needed (4) Congestive heart failure ICD Codes: I50.9 - Heart failure, unspecified Status: Acute Plan: s/p 1 dose of lasix in ED CXR no acute disease CTA revealed moderate congestive failure with trace b/l pleural effusions. Right hilar and mediastinal adenopathy, nonspecific but deserves followup BNP 594 Will consider giving dose of lasix and decreasing MIVF if patient clinically worsens (5) Anemia ICD Codes: D64.9 - Anemia, unspecified Status: Acute Plan: Hb of 7.6 on admission. Suspect secondary to anemia of chronic disease with prior iron deficiency. Continue to monitor Will plan to transfuse if Hb <7 (6) Diabetes mellitus ICD Codes: E11.9 - Type 2 diabetes mellitus without complications Status: Chronic Plan: -Held home insulin -Low dose SS (7) Hypertension Status: Chronic Plan: -Continue home meds: Amlodipine, Labetalol (8) Dyslipidemia ICD Codes: E78.5 - Dyslipidemia Status: Chronic Plan: -Continue home Pravastatin (9) Nutrition, metabolism, and development symptoms ICD Codes: R63.8 - Other symptoms and signs concerning food and fluid intake Physician Certification 2 Midnight Certification Type: Admission for Inpatient Services Order for Inpatient Services The services are ordered in accordance with Medicare regulations or non- Medicare payer requirements, as applicable. In the case of services not specified as inpatient-only, they are appropriately provided as inpatient services in accordance with the 2-midnight benchmark. Estimated LOS (days): 2 2 days is the estimated time the patient will need to remain in the hospital, assuming treatment plan goals are met and no additional complications. Post-Hospital Plan: Home Problem Qualifiers (1) Sepsis: Qualified Codes: A41.9 - Sepsis, unspecified organism (2) Congestive heart failure: Qualified Codes: I50.9 - Heart failure, unspecified Kacey Clark MD R1 Nov 01, 2017 14:26
--- NOTE | 2017-11-01 14:34 | HHI.FPPN ---
Subjective Remarks patient seen and examined, discussed with the medicine team. This is a 67-year-old female who was recently hospitalized for pyelonephritis and also recently given a diagnosis of congestive heart failure, with known hypertension and diabetes on insulin. She has been at home on Levaquin and linezolid for her pyelonephritis, and she does have a right renal stent. This morning at 2 AM, she awoke with shortness of breath and chest pain that she characterizes as tightness which started on the right side of her chest and radiated to the left. It was 10 out of 10 this morning and associated with worsening when she coughs or takes a deep breath. She's also had vomiting twice on the day prior to admission and she remains nauseated and vomiting when seen now. She's felt fever and chills. When she was initially seen, her blood pressure was 173/75, respirations 22, she was febrile at 101, and tachycardic and 119. She was satting 91% on 2 L of oxygen. Thus, she met sepsis criteria. Please see history and physical examination for this admission for additional historical details. She complains of nausea, inability to eat, unable to take her pills until she has something for her nausea. Still with chest pain and tightness 9 out of 10. Objective Vitals Vital Signs Date Time Temp Pulse Resp B/P (MAP) Pulse Ox O2 Delivery O2 Flow Rate FiO2 11/01/17 13:34 100.5 109 16 194/84 (120) 95 Nasal Cannula 2.00 11/01/17 12:57 95 21 11/01/17 12:24 100.0 99 22 179/77 (111) 94 Nasal Cannula 2.00 11/01/17 10:00 99 Nasal Cannula 2.00 11/01/17 09:59 17 11/01/17 08:25 101.0 110 22 154/76 (102) 100 Nasal Cannula 2.00 11/01/17 08:17 115 Room Air 11/01/17 08:10 100.3 119 22 173/75 (107) 91 Room Air I/O 10/31/17 10/31/17 10/31/17 11/01/17 11/01/17 11/01/17 07:00 15:00 23:00 07:00 15:00 23:00 Intake Total 300 ml Balance 300 ml Intake IV Total 300 ml Result Diagram: 11/01/17 1022 11/01/17 0836 Other Results Laboratory Tests Test 11/01/17 08:35 11/01/17 08:36 11/01/17 09:40 11/01/17 10:22 B-Type Natriuretic Peptide 594 PG/ML Blood Urea Nitrogen 19 MG/DL Creatinine 1.31 MG/DL Random Glucose 269 MG/DL Total Protein 8.1 GM/DL Albumin 2.6 GM/DL Calcium Level 9.1 MG/DL Alkaline Phosphatase 95 U/L Aspartate Amino Transf (AST/SGOT) 26 U/L Alanine Aminotransferase (ALT/SGPT) 8 U/L Total Bilirubin 0.4 MG/DL Sodium Level 133 MEQ/L Potassium Level 4.3 MEQ/L Chloride Level 100 MEQ/L Carbon Dioxide Level 21.5 MEQ/L Anion Gap 12 MEQ/L Estimat Glomerular Filtration Rate 49 ML/MIN Troponin I 0.30 NG/ML Prothrombin Time 11.4 SEC Prothromb Time International Ratio 1.1 RATIO Activated Partial Thromboplast Time 25.0 SEC White Blood Count 9.9 TH/MM3 Red Blood Count 2.81 MIL/MM3 Hemoglobin 7.8 GM/DL Hematocrit 23.5 % Mean Corpuscular Volume 83.5 FL Mean Corpuscular Hemoglobin 27.9 PG Mean Corpuscular Hemoglobin Concent 33.4 % Red Cell Distribution Width 15.4 % Platelet Count 186 TH/MM3 Mean Platelet Volume 7.4 FL Neutrophils (%) (Auto) 70.8 % Lymphocytes (%) (Auto) 23.0 % Monocytes (%) (Auto) 4.3 % Eosinophils (%) (Auto) 0.6 % Basophils (%) (Auto) 1.3 % Neutrophils # (Auto) 7.0 TH/MM3 Lymphocytes # (Auto) 2.3 TH/MM3 Monocytes # (Auto) 0.4 TH/MM3 Eosinophils # (Auto) 0.1 TH/MM3 Basophils # (Auto) 0.1 TH/MM3 CBC Comment DIFF FINAL Differential Comment Test 11/01/17 11:00 Lactic Acid Level 1.6 mmol/L Imaging Last Impressions Chest X-Ray 11/01/17825 Signed Impressions: Service Date/Time: Wednesday, November 01, 2017 08:44 - CONCLUSION: No acute disease. Gold Dorantes MD FACR CT Angiography 11/01/17825 Signed Impressions: Service Date/Time: Wednesday, November 01, 2017 09:54 - CONCLUSION: 1. Moderate congestive failure with trace bilateral pleural effusions 2. Right hilar and mediastinal adenopathy, nonspecific but deserves followup. Gold Dorantes MD FACR Objective Remarks GENERAL: Alert, in distress with nausea, complaining of chest discomfort 9 out of 10. SKIN: No rashes, ecchymoses or lesions. Warm and dry. HEAD: NC/AT EYES: PERRL. EOMI. No conjunctival injection or drainage. ENT: Mucous membranes slightly dry, OP without erythema, tonsillar swelling, or exudate. NECK: Supple, no lymphadenopathy. No JVD. CARDIOVASCULAR: Regular rate but tachycardic. Normal S1/S2. No MRG RESPIRATORY: Distant breath sounds, slightly coarse GASTROINTESTINAL: Abdomen soft, non-distended, non-tender. No hepato- splenomegaly or palpable masses. MUSCULOSKELETAL: Extremities without clubbing, cyanosis, or edema. NEUROLOGICAL: Awake and alert. Cranial nerves II through XII grossly intact. Moves all extremities without difficulty. Normal speech. A/P Assessment and Plan 67-year-old female with recent hospitalization for pyelonephritis, has been at home on Levaquin and linezolid, who presents with sudden onset of shortness of breath and chest discomfort associated with nausea this morning. She also presents with elevated blood pressure, tachypnea, tachycardia, and fever. See orders. Attending Attestation Patient seen and examined. Case reviewed and discussed with the resident team. Agree with plan of care as discussed with me and documented in the resident note. Margret Desai MD Nov 01, 2017 14:34
[2017-11-01] MEDS ORDERED: MORPHINE SULFATE 4 MG/ML INJ IV PUSH PRN (16:15)
[2017-11-01 16:33] LABS: BACTERIA, URINE OCC /hpf; BLOOD, URINE MOD (NEG); COMMENT (UR) CULTURE INDICATED; CULTURE IF INDICATED CULTURE INDICATED; GLUCOSE,URINE TRACE mg/dL (NEG); HYALINE CAST, URINE 1 /lpf (RARE); KETONE, URINE NEG (NEG); NITRITE,URINE NEG (NEG); URINE COLOR LIGHT-YELLOW (YELLW/STRAW)
[2017-11-01] MEDS ORDERED: MAGNESIUM HYDROXIDE SUSP 30 ML CUP PO PRN (16:45)
[2017-11-01] MEDS ORDERED: SENNOSIDES 8.6 MG TAB PO PRN (16:45)
[2017-11-01] MEDS ORDERED: BISACODYL 10 MG SUPP RECTAL PRN (16:45)
[2017-11-01] MEDS ORDERED: LACTULOSE SYRUP 20 GM/30 ML CUP PO PRN (16:45)
[2017-11-01] MEDS: ACETAMINOPHEN 325 MG TAB PO PRN (17:10)
--- NOTE | 2017-11-01 18:02 | MB ---
cc: GALINA SHARIF MD DATE OF CONSULTATION 11/01/[address] Marlow. REASON FOR CONSULTATION The patient re-admitted for sepsis. Appreciate antibiotic therapy. HISTORY OF PRESENT ILLNESS This is a 67-year-old white female who had a history of recent emphysematous pyelonephritis and right perinephric abscess. The patient was treated in the hospital and discharged on October 19 on antibiotics. She was discharged to shelter facility. Her prior cultures grew Enterococcus durans / hirae VRE. She was evaluated by infectious disease specialty and treated with oral antibiotics and discharged on Zyvox and Levaquin with plans to continue treatment until November 04 with Levaquin. She was also due to continue the Zyvox for 14 days from 10/18/2017. The patient states that she was doing well. She was discharged from the rehab facility the day before she came to the emergency department. She developed fever, nausea, vomiting and sudden shortness of breath. 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 She states that she has cough with mostly clear sputum. She notes also mild headache. Her temperature is still elevated at 101.9. The white blood cell count is normal. The chest x-ray was performed and it showed no acute disease. A CT angiography shows moderate congestive failure and trace bilateral pleural effusions and right hilar and mediastinal adenopathy. Currently she is in no acute distress. PAST MEDICAL HISTORY 1. Diabetes mellitus. 2. Hypertension. 3. Hyperlipidemia. 4. Pyelonephritis. 5. Perinephric abscess. ALLERGIES METFORMIN AND CLONIDINE. MEDICATIONS 1. Linezolid. 2. Levaquin. 3. Pravachol. 4. Lactulose. 5. Aspirin. 6. Ferrous sulfate. 7. Lopid. 8. Trandate. 9. Heparin subcutaneous. SOCIAL HISTORY No tobacco and no alcohol. No illicit drugs. FAMILY HISTORY Noncontributory. REVIEW OF SYSTEMS Pertinents mentioned above history of present illness. PHYSICAL EXAMINATION GENERAL: This is a pleasant well-developed female in no acute distress. VITAL SIGNS: Temperature 101.9, BP 195/87, respirations 20, heart rate 104. HEENT: Head atraumatic. Extraocular movements grossly intact, pupils reactive to light. No icterus. Oropharynx moist mucosa without lesions. NECK: Supple without adenopathy. LUNGS: Decreased breath sounds bilateral. HEART: Regular S1-S2 without murmurs. ABDOMEN: Bowel sounds present, soft, no tenderness appreciated. No masses palpable. RECTAL: Not performed. EXTREMITIES: No clubbing, cyanosis or edema. SKIN: No rash. NEUROLOGIC: No gross focal findings. LABORATORY DATA WBC 9.9, platelets 186, 70% neutrophils, hemoglobin 7.8. Creatinine 1.31, BUN 19. Sodium 133, AST 26, ALT 8. Urinalysis revealed 30 white cells. IMPRESSION 1. Sepsis probably secondary to urinary infection. 2. Abnormal urinalysis indicating urine infection. 3. Shortness of breath and cough. Rule out pneumonia. 4. History of perinephric abscess. RECOMMENDATIONS 1. Continue linezolid. 2. Continue Levaquin. 3. Try to obtain sputum for culture. A sputum culture will be ordered. 4. Monitor blood culture and urine culture. Thank you this consultation. The patient's progress will monitored and antibiotics will be adjusted if necessary. Galina Sharif MD FD/DHRUV /5:15 PM /5:36 PM KYEON
[2017-11-01] MEDS: DOCUSATE SODIUM 50 MG/SENNA 8.6 MG TAB PO SCH (21:00)
--- NOTE | 2017-11-01 21:38 | EKG ---
Date Performed: 11/01/2017 Time Performed: 21:01:26 PTAGE: 67 years EKG: Sinus rhythm SEPTAL MYOCARDIAL INFARCTION , OF INDETERMINATE AGE ABNORMAL ECG PREVIOUS TRACING : 11/01/2017 14.50 Compared to prior tracing no significant change DOCTOR: Morteza Baez Interpretating Date/Time 11/01/2017 21:37:19
--- NOTE | 2017-11-01 21:49 | EKG ---
Date Performed: 11/01/2017 Time Performed: 14:50:33 PTAGE: 67 years EKG: SINUS TACHYCARDIA NONSPECIFIC ST & T-WAVE ABNORMALITY ABNORMAL RHYTHM ECG PREVIOUS TRACING : 11/01/2017 08.29 Compared to prior tracing no significant change DOCTOR: Morteza Baez Interpretating Date/Time 11/01/2017 21:48:01
[2017-11-01] MEDS: LINEZOLID 600 MG PREMIX 300 ML IV SCH (21:56)
--- NOTE | 2017-11-01 22:31 | EKG ---
Date Performed: 11/01/2017 Time Performed: 08:29:53 PTAGE: 67 years EKG: SINUS TACHYCARDIA SEPTAL MYOCARDIAL INFARCTION ABNORMAL ECG Compared to the PREVIOUS TRACING rate faster DOCTOR: Morteza Baez Interpretating Date/Time 11/01/2017 22:30:08
[2017-11-02] VITALS (11 sets, daily range): BP systolic 117–159; BP diastolic 65–87; PULSE 85–101; RESP 18–20; TEMP 98.3–100.6; O2SAT 91–98
[2017-11-02] MEDS: HEPARIN SODIUM - SQ 10,000 UNITS/ML VIAL SQ SCH ×3 (00:03→23:20)
[2017-11-02] MEDS ORDERED: RESP: ALBUTEROL 2.5 MG/IPRATROPIUM 0.5 MG NEB (PRN) NEB (00:45)
--- NOTE | 2017-11-02 01:01 | RADRPT ---
EXAM DATE/TIME: 11/02/2017 00:44 [facility] COMPARISON: CT PULMONARY ANGIOGRAM, November 01, 2017, 9:54. CHEST SINGLE AP, November 01, 2017, 8:44. INDICATIONS : Congestion. Abnormal CT pulmonary angiogram demonstrating small pleural effusions. MEDICAL HISTORY : Cardiovascular disease. SURGICAL HISTORY : section. ENCOUNTER: Initial ACUITY: 1 day PAIN SCORE: 0/10 LOCATION: Bilateral chest FINDINGS: A single view of the chest demonstrates the lungs to be symmetrically aerated without evidence of mas s, infiltrate or effusion. There is mild patchy opacity at the right lung base. The known small effus ions are not visualized. There are multiple electrocardiogram leads. The cardiomediastinal contours a re unremarkable. Osseous structures are intact. CONCLUSION: 1. Mild patchy opacity at the right lung base. 2. The known small pleural effusions seen on the CT angiogram are not visualized. Eric Petty MD on November 02, 2017 at 0:58 Board Certified Radiologist. This report was verified electronically.
[2017-11-02] MEDS: ONDANSETRON HCL 4 MG/2 ML VIAL IVP PRN ×4 (03:17→23:20)
[2017-11-02] MEDS: SODIUM CHLOR 0.9% 1000 ML INJ 1,000 ML IV SCH ×3 (03:40→21:16)
[2017-11-02 07:41] LABS: AUTOMATED NEUTROPHIL # 4.4 TH/MM3 (1.8-7.7); BASOPHIL # 0.1 TH/MM3 (0-0.2); BASOPHIL % 1.1 % (0.0-2.0); EOSINOPHIL % 0.2 % (0.0-4.0); HEMATOCRIT 21.3 % (35.0-46.0); HEMO FLAGS DIFF FINAL; LYMPH % 34.6 % (9.0-44.0); LYMPHOCYTE # 2.7 TH/MM3 (1.0-4.8); MEAN CELL VOLUME 83.2 FL (80.0-100.0); MEAN CORPUSCULAR HEMOGLOBIN 28.3 PG (27.0-34.0); MEAN CORPUSCULAR HGB CONC 34.1 % (32.0-36.0); MONO % 7.1 % (0.0-8.0); PLATELET COUNT 164 TH/MM3 (150-450); RED BLOOD COUNT 2.55 MIL/MM3 (4.00-5.30); RED CELL DISTRIBUTION WIDTH 15.2 % (11.6-17.2); WHITE BLOOD COUNT 7.8 TH/MM3 (4.0-11.0)
[2017-11-02 08:09] LABS: BICARBONATE 23.1 MEQ/L (21.0-32.0); POTASSIUM 3.9 MEQ/L (3.5-5.1)
[2017-11-02] MEDS: FERROUS SULFATE 325 MG (65 MG ELEMENTAL IRON) TAB PO SCH ×2 (08:36→21:16)
[2017-11-02] MEDS: DOCUSATE SODIUM 50 MG/SENNA 8.6 MG TAB PO SCH ×2 (08:36→21:16)
[2017-11-02] MEDS: ASPIRIN EC 325 MG TABEC PO SCH (08:36)
[2017-11-02] MEDS: LABETALOL HCL 100 MG TAB PO SCH ×2 (08:37→21:16)
[2017-11-02] MEDS: PRAVASTATIN SOD 10 MG TAB PO SCH (08:37)
[2017-11-02] MEDS: GEMFIBROZIL 600 MG TAB PO SCH (08:37)
[2017-11-02] MEDS: SODIUM CHLORIDE 0.9% FLUSH 10 ML FLUSH IV FLUSH SCH ×2 (08:37→20:56)
[2017-11-02] MEDS: INSULIN ASPART SUPPLEMENTAL SCALE SQ SCH ×4 (09:01→20:57)
[2017-11-02] MEDS ORDERED: FUROSEMIDE 20 MG/2 ML VIAL IV PUSH ONE ×2 (10:30→19:00)
[2017-11-02] MEDS: LINEZOLID 600 MG PREMIX 300 ML IV SCH (11:00)
--- NOTE | 2017-11-02 11:21 | HHI.FPPN ---
Subjective Remarks Resident paged overnight, pt complaining of congestion. Repeat CXR ordered and revealed mild patchy opacity at right lung base. Fluids were decreased from 140mls/hr to 116mls/hr. Patient lying in bed this AM. Currently on 2L O2 NC. She complains that she is having more wheezing this AM and worsen SOB. She endorses nausea. She denies vomiting, CP, and abdominal pain. Last BM was 2 days ago. She reports no blood in her stools. She has been afebrile since 16:00 yesterday. (Kacey Clark MD R1) Objective Vitals Vital Signs Date Time Temp Pulse Resp B/P (MAP) Pulse Ox O2 Delivery O2 Flow Rate FiO2 11/02/17 08:00 100.2 96 20 138/87 (104) 94 11/02/17 07:00 Nasal Cannula 3.00 11/02/17 04:00 98.3 87 18 142/65 (90) 98 11/02/17 04:00 85 11/02/17 00:00 89 11/02/17 00:00 98.4 87 18 154/67 (96) 97 11/01/17 21:00 Nasal Cannula 2.00 11/01/17 20:00 98.6 89 18 136/62 (86) 97 11/01/17 20:00 90 11/01/17 19:10 96 Nasal Cannula 2.00 11/01/17 18:48 97.0 93 20 139/63 (88) 93 11/01/17 18:45 11/01/17 15:51 101.9 104 23 195/87 (123) 94 Nasal Cannula 2.00 11/01/17 13:34 100.5 109 16 194/84 (120) 95 Nasal Cannula 2.00 11/01/17 12:57 95 21 11/01/17 12:24 100.0 99 22 179/77 (111) 94 Nasal Cannula 2.00 I/O 11/01/17 11/01/17 11/01/17 11/02/17 11/02/17 11/02/17 07:00 15:00 23:00 07:00 15:00 23:00 Intake Total 300 ml 300 ml 240 ml Output Total 400 ml Balance 300 ml 300 ml -160 ml Intake Oral 240 ml IV Total 300 ml 300 ml Output Urine Total 400 ml # Bowel Movements 0 (Kacey Clark MD R1) Result Diagram: 11/02/17 0700 11/02/17 0700 Objective Remarks GENERAL: lying in bed, on 2 L O2 NC, mild discomfort with breathing SKIN: No rashes, ecchymoses or lesions. Warm and dry. HEAD: NC/AT EYES: PERRL. EOMI. No conjunctival injection or drainage. ENT: Mucous membranes moist, OP without erythema, tonsillar swelling, or exudate. NECK: Supple, no lymphadenopathy. No JVD. CARDIOVASCULAR: RRR, no m/r/g RESPIRATORY: wheezing throughout GASTROINTESTINAL: Abdomen soft, non-distended, non-tender. No hepato- splenomegaly or palpable masses. MUSCULOSKELETAL: Extremities without clubbing, cyanosis, or edema. NEUROLOGICAL: Awake and alert. Cranial nerves II through XII grossly intact. Moves all extremities without difficulty. Normal speech. 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 Admitted for ACS r/o, CHF exacerbation, sepsis most likely secondary to pyelonephritis vs pneumonia. (Kacey Clark MD R1) Attending Attestation Patient seen and examined. Case reviewed and discussed with the resident team. Agree with plan of care as discussed with me and documented in the resident note. (Margret Desai MD) Problem List: (1) Sepsis ICD Codes: A41.9 - Sepsis, unspecified organism Status: Resolved Plan: Patient with fever of 101 and tachycardia 99-11 on admission. Likely source of infection includes pyelonephritis Lactic acid 1.6. No signs of organ dysfunction. WBC wnl UA revealed moderate leukocyte esterase, bacteria, RBC and WBC Urine culture pending Blood cultures collected s/p 1x of Linezolid in ED MIVF of 116mls/hr ID consulted, recs appreciated Continue Linezolid 600mg IV q12h (10/15-11/04) and Levaquin 600mg PO q48h (10/15 -10/28) Possible pneumonia, sputum culture revealed normal bj, consider pulmonary eval (2) Pyelonephritis ICD Codes: N12 - Pyelonephritis Status: Acute Plan: Please see plan above (3) Chest pain ICD Codes: R07.9 - Chest pain, unspecified Status: Acute Plan: Pleuritic chest pain. ACS r/o Troponin 0.30, 0.50, 0.59 EKG sinus tachycardia Cardiology consulted, recs appreciated Symptoms more likely pulmonary than cardiac. Be cautious with aggressive diuresis given her last hospitalization she bumped the Cr quickly. Elevated troponin, unclear etiology. Consider lexiscan once breathing improves. Not likely candidate for invasive strategy or intervention given anemia. (4) Congestive heart failure ICD Codes: I50.9 - Heart failure, unspecified Status: Acute Plan: s/p 1 dose of lasix in ED CXR no acute disease CTA revealed moderate congestive failure with trace b/l pleural effusions. Right hilar and mediastinal adenopathy, nonspecific but deserves followup BNP 594 (5) Anemia ICD Codes: D64.9 - Anemia, unspecified Status: Acute Plan: Hb of 7.8 on admission. Hb decreased to 7.2, 6.8. Transfuse 1 unit of PRBC, H& H post transfusion to follow. Hemoccult positive, performed in room on 11/02. GI consulted, recs appreciated. EGD and colonoscopy when respiratory status improved and pt able to tolerate bowel prep Notify GI of active bleeding (6) Diabetes mellitus ICD Codes: E11.9 - Type 2 diabetes mellitus without complications Status: Chronic Plan: -Held home insulin -Low dose SS (7) Hypertension Status: Chronic Plan: -Continue home meds: Amlodipine, Labetalol (8) Dyslipidemia ICD Codes: E78.5 - Dyslipidemia Status: Chronic Plan: -Continue home Pravastatin and gemfibrozil (9) Nutrition, metabolism, and development symptoms ICD Codes: R63.8 - Other symptoms and signs concerning food and fluid intake Plan: Diet: Diabetic Diet 1800 ADA cons Carb Electrolytes: monitor and replace as needed Fluids: MIVF 116mls/hr vitals q4h, monitor I & Os DVT ppx: heparin 5000 units sq 12h (Kacey Clark MD R1) Problem Qualifiers (1) Sepsis: Qualified Codes: A41.9 - Sepsis, unspecified organism (2) Congestive heart failure: Qualified Codes: I50.9 - Heart failure, unspecified Kacey Clark MD R1 Nov 02, 2017 11:21 Margret Desai MD Nov 03, 2017 09:06
--- NOTE | 2017-11-02 11:30 | MB ---
cc: MAURICE RICHARD DATE OF CONSULTATION: 11/02/2017 REASON FOR CONSULTATION Congestive heart failure. HISTORY OF PRESENT ILLNESS This is a 67-year-old female. She has a history of hypertension, type 2 diabetes and pyelonephritis. She was recently admitted in the early part of September and was discharged late September with a similar type presentation. She initially presented with some pyelonephritis and shortness of breath thought to be secondary to pneumonia and congestive heart failure. She was also diagnosed at that time with a stroke and underwent transesophageal echocardiogram which showed no valvular abnormalities with normal ejection fraction, but a patent foramen ovale. We elected to treat conservatively given her anemia and infection with plans for potential percutaneous closure in the future. She now presents with progressive shortness of breath and some tightness in her chest, gasping for air. She was discharged initially on Levaquin and Zyvox to [facility]. She presented with fever, productive cough, sputum and probable sepsis. We are consulted given CAT scan showed interstitial edema and there is a question of whether she has congestive heart failure contributing to her symptoms. PAST MEDICAL HISTORY 1. Diabetes. 2. Hypertension. 3. Hyperlipidemia. 4. Patent foramen ovale. 5. Perinephric abscess with pyelonephritis. ALLERGIES 1. METFORMIN. 2. CLONIDINE. FAMILY HISTORY Denies any family history of early coronary artery disease or sudden cardiac . SOCIAL HISTORY Denies any alcohol, tobacco or drug use. REVIEW OF SYSTEMS A 12-point review of systems was performed and negative unless otherwise noted in the history of present illness. PHYSICAL EXAMINATION VITAL SIGNS: Temperature 100.2, pulse 96, blood pressure 138/87 mmHg. GENERAL: Alert and oriented x3, in no acute distress. HEENT: Pupils reactive to light and accommodation. Extraocular movements are intact. NECK: No jugular venous distention. No thyromegaly. No lymphadenopathy. No carotid bruits. LUNGS: Clear to auscultation bilaterally. Diffuse end-expiratory wheeze. Some minimal bibasilar crackles. CARDIOVASCULAR: Without murmurs, rubs or gallops. ABDOMEN: Nontender, nondistended. Good bowel sounds. No hepatosplenomegaly. EXTREMITIES: No clubbing, cyanosis or edema. Good peripheral pulses. NEUROLOGIC: Cranial nerves intact. Motor and sensory grossly intact. LABORATORY WBC 7.8, hemoglobin 7.2, platelet count 164. INR is 1.1. Sodium 134, potassium 3.9, BUN 21, creatinine 1.40. Troponin 0.56. Prior troponin at discharge was 0.13 on October 11. It peaked as high as 0.24 on September 19. ELECTROCARDIOGRAM Electrocardiogram is sinus rhythm, nonspecific ST-T wave abnormality. ASSESSMENT 1. Shortness of breath. 2. Probable sepsis. 3. Prior history of stroke with patent foramen ovale. PLAN SOB - This is a similar presentation to her last hospitalization. Ejection fraction is normal. No significant valvular abnormalities. She does have some mild pulmonary hypertension. I think her symptoms are more pulmonary than they are cardiac. She may have a component of some mild diastolic dysfunction in the setting of some renal insufficiency contributing, but I would be cautious with aggressive diuresis given her last hospitalization she bumped the creatinine quickly. She has significant wheeze and productive cough more consistent with pulmonary infectious etiology with reactive airway disease. CVA - Will continue with conservative approach from her cardioembolic stroke perspective given her ongoing anemia and infectious issues. As mentioned earlier at some point in the future we could consider endovascular closure device but right now it would be contraindicated. Will follows. Elevated Trop - unclear etiology. likely demand mediated in setting of CRI. multiple risk factors. Consider lexiscan once breathing improves. Not likely candidate for invasive strategy or intervention though given anemia. Anemia - ? chronic kidney disease. Needs evaluation. MD LOUIE Hill/JADIEL /11:05 AM /11:15 AM KEYON
[2017-11-02] MEDS ORDERED: RESP: ALBUTEROL 2.5 MG/IPRATROPIUM 0.5 MG NEB (SCH) NEB (12:00)
[2017-11-02] MEDS: RESP: ALBUTEROL 2.5 MG/IPRATROPIUM 0.5 MG NEB (SCH) NEB ×4 (12:01→21:33)
[2017-11-02] MEDS ORDERED: PROCHLORPERAZINE MALEATE 10 MG TAB PO ONE (12:15)
--- NOTE | 2017-11-02 13:35 | HHI.IDPN ---
Note Infectious Disease Note Patient feels ill. Has cough and feels SOB. C/O chest pain and upper back pain. Has congested airway noises. Still has fever. History of recent emphysematous pyelonephritis and right perinephric abscess. PAST MEDICAL HISTORY 1. Diabetes mellitus. 2. Hypertension. 3. Hyperlipidemia. 4. Pyelonephritis. 5. Perinephric abscess. ALLERGIES METFORMIN AND CLONIDINE. ANTIBIOTICS 1. Linezolid. 2. Levaquin. OBJECTIVE: Vital Signs Date Time Temp Pulse Resp B/P (MAP) Pulse Ox O2 Delivery O2 Flow Rate FiO2 11/02/17 12:46 91 Nasal Cannula 3.00 11/02/17 12:00 99.2 89 20 155/66 (95) 93 11/02/17 08:00 100.2 96 20 138/87 (104) 94 11/02/17 07:00 Nasal Cannula 3.00 11/02/17 04:00 98.3 87 18 142/65 (90) 98 11/02/17 04:00 85 11/02/17 00:00 89 11/02/17 00:00 98.4 87 18 154/67 (96) 97 11/01/17 21:00 Nasal Cannula 2.00 11/01/17 20:00 98.6 89 18 136/62 (86) 97 11/01/17 20:00 90 11/01/17 19:10 96 Nasal Cannula 2.00 11/01/17 18:48 97.0 93 20 139/63 (88) 93 11/01/17 18:45 11/01/17 15:51 101.9 104 23 195/87 (123) 94 Nasal Cannula 2.00 11/01/17 13:34 100.5 109 16 194/84 (120) 95 Nasal Cannula 2.00 Laboratory Tests Test 11/01/17 10:22 11/02/17 07:00 White Blood Count 9.9 TH/MM3 7.8 TH/MM3 Red Blood Count 2.81 MIL/MM3 2.55 MIL/MM3 Hemoglobin 7.8 GM/DL 7.2 GM/DL Hematocrit 23.5 % 21.3 % Mean Corpuscular Volume 83.5 FL 83.2 FL Mean Corpuscular Hemoglobin 27.9 PG 28.3 PG Mean Corpuscular Hemoglobin Concent 33.4 % 34.1 % Red Cell Distribution Width 15.4 % 15.2 % Platelet Count 186 TH/MM3 164 TH/MM3 Mean Platelet Volume 7.4 FL 7.5 FL Neutrophils (%) (Auto) 70.8 % 57.0 % Lymphocytes (%) (Auto) 23.0 % 34.6 % Monocytes (%) (Auto) 4.3 % 7.1 % Eosinophils (%) (Auto) 0.6 % 0.2 % Basophils (%) (Auto) 1.3 % 1.1 % Neutrophils # (Auto) 7.0 TH/MM3 4.4 TH/MM3 Lymphocytes # (Auto) 2.3 TH/MM3 2.7 TH/MM3 Monocytes # (Auto) 0.4 TH/MM3 0.6 TH/MM3 Eosinophils # (Auto) 0.1 TH/MM3 0.0 TH/MM3 Basophils # (Auto) 0.1 TH/MM3 0.1 TH/MM3 CBC Comment DIFF FINAL DIFF FINAL Differential Comment Laboratory Tests Test 11/01/17 08:35 11/01/17 08:36 11/01/17 11:00 11/01/17 15:50 B-Type Natriuretic Peptide 594 PG/ML Blood Urea Nitrogen 19 MG/DL Creatinine 1.31 MG/DL Random Glucose 269 MG/DL Total Protein 8.1 GM/DL Albumin 2.6 GM/DL Calcium Level 9.1 MG/DL Alkaline Phosphatase 95 U/L Aspartate Amino Transf (AST/SGOT) 26 U/L Alanine Aminotransferase (ALT/SGPT) 8 U/L Total Bilirubin 0.4 MG/DL Sodium Level 133 MEQ/L Potassium Level 4.3 MEQ/L Chloride Level 100 MEQ/L Carbon Dioxide Level 21.5 MEQ/L Anion Gap 12 MEQ/L Estimat Glomerular Filtration Rate 49 ML/MIN Troponin I 0.30 NG/ML 0.50 NG/ML Lactic Acid Level 1.6 mmol/L Test 11/01/17 20:10 11/02/17 07:00 Troponin I 0.56 NG/ML Blood Urea Nitrogen 21 MG/DL Creatinine 1.40 MG/DL Random Glucose 196 MG/DL Calcium Level 8.2 MG/DL Sodium Level 134 MEQ/L Potassium Level 3.9 MEQ/L Chloride Level 101 MEQ/L Carbon Dioxide Level 23.1 MEQ/L Anion Gap 10 MEQ/L Estimat Glomerular Filtration Rate 46 ML/MIN B-Type Natriuretic Peptide 540 PG/ML Microbiology Date/Time Source Procedure Growth Status 11/01/17 08:35 Blood Peripheral Aerobic Blood Culture - Preliminary NO GROWTH IN 1 DAY Resulted 11/01/17 08:35 Blood Peripheral Anaerobic Blood Culture - Preliminary NO GROWTH IN 1 DAY Resulted 11/01/17 08:30 Blood Peripheral Aerobic Blood Culture - Preliminary NO GROWTH IN 1 DAY Resulted 11/01/17 08:30 Blood Peripheral Anaerobic Blood Culture - Preliminary NO GROWTH IN 1 DAY Resulted 11/01/17 18:09 Sputum Expectorated Sputum Gram Stain - Final Resulted 11/01/17 18:09 Sputum Expectorated Sputum Sputum Culture - Preliminary HEAVY GROWTH NORMAL RESPIRATORY BJ... Resulted 11/01/17 15:50 Urine Random Urine Urine Culture Pending Received IMAGING: Chest X-Ray 11/02/17 0000 Signed Impressions: Service Date/Time: Thursday, November 02, 2017 00:44 - CONCLUSION: 1. Mild patchy opacity at the right lung base. 2. The known small pleural effusions seen on the CT angiogram are not visualized. Eric Petty MD CT Angiography 11/01/17825 Signed Impressions: Service Date/Time: Wednesday, November 01, 2017 09:54 - CONCLUSION: 1. Moderate congestive failure with trace bilateral pleural effusions 2. Right hilar and mediastinal adenopathy, nonspecific but deserves followup. Gold Dorantes MD FACR PHYSICAL EXAMINATION GENERAL: No acute distress. HEENT: Head atraumatic. Extraocular movements grossly intact, pupils reactive to light. No icterus. Oropharynx moist mucosa without lesions. NECK: Supple without adenopathy. LUNGS: Coarse rhonchi. HEART: Regular S1-S2 without murmurs. ABDOMEN: Bowel sounds present, soft, no tenderness. EXTREMITIES: No clubbing, cyanosis or edema. SKIN: No rash. NEUROLOGIC: No gross focal findings. IMPRESSION 1. Sepsis probably secondary to urinary infection. 2. Abnormal urinalysis indicating urine infection. 3. Shortness of breath and cough. Rule out pneumonia. Probable CHF. Sputum culture has normal bj. 4. History of perinephric abscess. RECOMMENDATIONS 1. Continue linezolid. 2. Continue Levaquin. 3. Monitor blood culture and urine culture. 4. Consider pulmonary eval. Nikita Griffin MD Nov 02, 2017 13:35
--- NOTE | 2017-11-02 13:42 | PD.CONS ---
HPI History of Present Illness This is a 67 year old female with hx DM2, CHF, HTN who presented with chest pain , n/v. She is being treated for sepsis 2/2 pyelonephritis and PNA. GI has been consulted for heme pos stool and drop in hgb from 7.8 to 7.2. She denies kaushik blood in stool, black tarry stool, hematemesis, abd pain. She is having n /v currently. She has no prior hx ulcers or GIB. Last colonoscopy with Dr Pichardo in 2015 was normal and she was told she didnt need another for 10y. Not on blodo thinners, no NSAIDs. (Beth Khalil) PFSH Past Medical History DM2 CHF HTN pyelonephritis Past Surgical History c section (Beth Khalil) Coded Allergies: metformin (Unverified Allergy, Severe, Numbness, 11/01/17) clonidine (Unverified Allergy, Unknown, 11/01/17) Family History prostate ca DM HTN Social History no toxic habits (Beth Khalil) Review of Systems Constitutional: DENIES: Fatigue Eyes: DENIES: Blurred vision Ears, nose, mouth, throat: DENIES: Hearing loss Respiratory: COMPLAINS OF: Cough, DENIES: Hemoptysis Cardiovascular: DENIES: Chest pain Gastrointestinal: COMPLAINS OF: Nausea, Vomiting, DENIES: Abdominal pain, Black stools, Bloody stools, Constipation, Diarrhea, Hematemesis Genitourinary: DENIES: Hematuria Musculoskeletal: DENIES: Joint Swelling Integumentary: DENIES: Pruritus Hematologic/lymphatic: DENIES: Bruising Neurologic: DENIES: Abnormal gait Psychiatric: DENIES: Confusion (Beth Khalil) GI Exam Vitals I&O Vital Signs Date Time Temp Pulse Resp B/P (MAP) Pulse Ox O2 Delivery O2 Flow Rate FiO2 11/02/17 12:46 91 Nasal Cannula 3.00 11/02/17 12:00 99.2 89 20 155/66 (95) 93 11/02/17 08:00 100.2 96 20 138/87 (104) 94 11/02/17 07:00 Nasal Cannula 3.00 11/02/17 04:00 98.3 87 18 142/65 (90) 98 11/02/17 04:00 85 11/02/17 00:00 89 11/02/17 00:00 98.4 87 18 154/67 (96) 97 11/01/17 21:00 Nasal Cannula 2.00 11/01/17 20:00 98.6 89 18 136/62 (86) 97 11/01/17 20:00 90 11/01/17 19:10 96 Nasal Cannula 2.00 11/01/17 18:48 97.0 93 20 139/63 (88) 93 11/01/17 18:45 11/01/17 15:51 101.9 104 23 195/87 (123) 94 Nasal Cannula 2.00 I/O 11/01/17 11/01/17 11/01/17 11/02/17 11/02/17 11/02/17 06:59 14:59 22:59 06:59 14:59 22:59 Intake Total 300 ml 300 ml 240 ml Output Total 400 ml Balance 300 ml 300 ml -160 ml Intake Oral 240 ml IV Total 300 ml 300 ml Output Urine Total 400 ml # Bowel Movements 0 Imaging Last Impressions Chest X-Ray 11/02/17 0000 Signed Impressions: Service Date/Time: Thursday, November 02, 2017 00:44 - CONCLUSION: 1. Mild patchy opacity at the right lung base. 2. The known small pleural effusions seen on the CT angiogram are not visualized. Eric Petty MD CT Angiography 11/01/17 0826 Signed Impressions: Service Date/Time: Wednesday, November 01, 2017 09:54 - CONCLUSION: 1. Moderate congestive failure with trace bilateral pleural effusions 2. Right hilar and mediastinal adenopathy, nonspecific but deserves followup. Gold Dorantes MD FACR Laboratory Test 11/01/17 15:50 11/01/17 20:10 11/02/17 07:00 Urine Color LIGHT-YELLOW Urine Turbidity CLEAR Urine pH 6.0 Urine Specific [place] 1.020 Urine Protein 100 mg/dL Urine Glucose (UA) TRACE mg/dL Urine Ketones NEG mg/dL Urine Occult Blood MOD Urine Nitrite NEG Urine Bilirubin NEG Urine Urobilinogen LESS THAN 2.0 MG/DL Urine Leukocyte Esterase MOD Urine RBC 61 /hpf Urine WBC 30 /hpf Urine WBC Clumps RARE Urine Bacteria OCC /hpf Urine Hyaline Casts 1 /lpf Microscopic Urinalysis Comment CULTURE INDICATED Troponin I 0.50 NG/ML 0.56 NG/ML White Blood Count 7.8 TH/MM3 Red Blood Count 2.55 MIL/MM3 Hemoglobin 7.2 GM/DL Hematocrit 21.3 % Mean Corpuscular Volume 83.2 FL Mean Corpuscular Hemoglobin 28.3 PG Mean Corpuscular Hemoglobin Concent 34.1 % Red Cell Distribution Width 15.2 % Platelet Count 164 TH/MM3 Mean Platelet Volume 7.5 FL Neutrophils (%) (Auto) 57.0 % Lymphocytes (%) (Auto) 34.6 % Monocytes (%) (Auto) 7.1 % Eosinophils (%) (Auto) 0.2 % Basophils (%) (Auto) 1.1 % Neutrophils # (Auto) 4.4 TH/MM3 Lymphocytes # (Auto) 2.7 TH/MM3 Monocytes # (Auto) 0.6 TH/MM3 Eosinophils # (Auto) 0.0 TH/MM3 Basophils # (Auto) 0.1 TH/MM3 CBC Comment DIFF FINAL Differential Comment Blood Urea Nitrogen 21 MG/DL Creatinine 1.40 MG/DL Random Glucose 196 MG/DL Calcium Level 8.2 MG/DL Sodium Level 134 MEQ/L Potassium Level 3.9 MEQ/L Chloride Level 101 MEQ/L Carbon Dioxide Level 23.1 MEQ/L Anion Gap 10 MEQ/L Estimat Glomerular Filtration Rate 46 ML/MIN B-Type Natriuretic Peptide 540 PG/ML Date/Time Source Procedure Growth Status 11/01/17 08:35 Blood Peripheral Aerobic Blood Culture - Preliminary NO GROWTH IN 1 DAY Resulted 11/01/17 08:35 Blood Peripheral Anaerobic Blood Culture - Preliminary NO GROWTH IN 1 DAY Resulted 11/01/17 18:09 Sputum Expectorated Sputum Gram Stain - Final Resulted 11/01/17 18:09 Sputum Expectorated Sputum Sputum Culture - Preliminary HEAVY GROWTH NORMAL RESPIRATORY ECTOR... Resulted 11/01/17 15:50 Urine Random Urine Urine Culture Pending Received Physical Examination HEENT: PERRL; normocephalic; atraumatic; no jaundice. CHEST: rhonchi CARDIAC: RRR ABDOMEN: Soft, nondistended, nontender; no hepatosplenomegaly; bowel sounds are present in all four quadrants. EXTREMITIES: No clubbing, cyanosis, or edema. SKIN: Normal; no rash; no jaundice. FIRST BEATER: No focal deficits; alert and oriented times three. (Beth Khalil) Assessment and Plan Plan ASSESSMENT - anemia - normocytic. hgb 7.8 on admission and mild drop today. looking back , this is close to her baseline. SHe did receive a blood transfusion 2 months ago when here for pyelonephritis. No obvious bleed but stool is heme pos. last colonoscopy 2016 normal. no hx GIB - sepsis 2/2 pyelonephritis, PNA, CHF, chest pain - per primary. CTA showed right hilar and mediastinal adenopathy nonspecific PLAN - EGD and colonoscopy when respiratory status improved and pt able to tolerate bowel prep - monitor HH - transfuse as needed - notify GI of active bleeding - supportive care This pt seen by myself and Jennifer and this note is written on his behalf (Beth Khalil) Physician Comments Seen and examined with PAOLA, no active bleeding reported. EGD/Colonoscopy when stable from pulmonary standpoint. Continue to monitor labs. Thank you (Marina Almanza MD) Beth Khalil Nov 02, 2017 13:42 Marina Almanza MD Nov 02, 2017 16:58
[2017-11-02 18:33] LABS: REVIEW FLAG FINAL
[2017-11-02 18:36] LABS: HEMATOCRIT 20.2 % (35.0-46.0)
[2017-11-02] MEDS ORDERED: SODIUM CHLOR 0.9% 250 ML INJ 250 ML IV ONE (19:00)
--- NOTE | 2017-11-02 20:42 | MB ---
cc: ZAMZAM DEL ANGEL MD DATE OF CONSULTATION: 11/02/2017 REASON FOR CONSULTATION: Elevated BUN and creatinine for evaluation. HISTORY OF PRESENT ILLNESS This is a 67-year-old female known to me from before with past medical history of hypertension, diabetes mellitus, ischemic heart disease, congestive heart failure, came to the hospital with complaint of cough and shortness of breath. I was called to see the patient because of elevated BUN and creatinine. The patient has history of acute kidney injury and she was recently discharged. At that time her creatinine was as high as 4.6 and it was improving, when she was discharged it was 2.7. There is one reading of 1.2 of creatinine and this time she came in with creatinine of 1.3 to 1.4. The patient has a history of urinary tract infection with recurrent E. Coli and the last time she had enterococcus. The patient has been followed by infectious disease. This time she came in here mainly because of worsening shortness of breath and cough. The last time she was here she also had nephrostomy placed and it was removed before she was discharged. She also has some chest pain when she came in here. There was some chest tightness, retrosternal. Her breathing has been better. Chest pain is improved and she still has mild cough. There is no history of nausea, vomiting. The patient was at [facility] for the rehab after she was discharged the last time. She denies any nausea or vomiting. There is no history of diarrhea. She occasionally has dysuria, has been passing good urine. PAST MEDICAL HISTORY: Hypertension, diabetes mellitus, ischemic heart disease, congestive heart failure, history of recurrent urinary tract infection, history of acute kidney injury, and pyelonephritis. PAST SURGICAL HISTORY History of nephrostomy placement and section. REVIEW OF SYSTEMS Denies any history of fever. No headache, dizziness or blurring of vision. The patient denies any chest pain, now chest pain has improved. She has mild shortness of breath, she has cough which is mainly dry. There is no nausea or vomiting. No history of diarrhea. SOCIAL HISTORY The patient currently came here from the nursing facility. She has no history of smoking or alcoholism. FAMILY HISTORY: Noncontributory. ALLERGIES CLONIDINE AND METFORMIN. MEDICATIONS Currently she is on following medications: 1. IV fluid. Normal saline at 116 per hour. 2. Bridgette-Colace 1 tablet b.i.d. 3. Ferrous sulfate 325 mg b.i.d. 4. Amlodipine 10 mg daily. 5. Aspirin at 25 milligrams daily. 6. Lopid 600 milligrams daily. 7. Pravachol 10 mg daily. 8. DuoNeb nebulizer. 9. Linezolid q12 hours, 600 milligrams. 10. Trandate 100 milligrams q12 hours. 11. Levaquin 500 milligrams q48 hours. 12. Insulin Aspart sliding scale. 13. Roxicodone as needed. 14. Lactulose as needed. PHYSICAL EXAMINATION: The patient is awake, alert, not in acute distress. VITAL SIGNS: Blood pressure 117/73, temperature 100.6, oxygen saturation three liters nasal cannula, 91 to 94%. HEENT: Pupils are mid constricted. Nonicteric sclera, conjunctiva pale. Neck: Supple. JVD is not elevated. Lungs: The patient has bilateral good air entry with occasional wheezing. Heart: S1-S2. Regular rhythm. Abdomen: Soft, lax. There is no tenderness. Bowel sounds positive. Extremities: There is mild edema in the legs. INVESTIGATIONS: WBC count is 7.8, hemoglobin 7.2, repeat hemoglobin of 6.8. Platelet count of 164, neutrophils 57%, sodium 134, potassium 3.9, chloride 101, bicarb 23, BUN 21, creatinine 1.4, glucose 196. Calcium 8.2, BNP is 540. Urinalysis showing that there is moderate RBCs of 61 and WBC of 30. The urine culture showing immature growth. Immunology done in August it was negative with XANDER and ___ negative. Rheumatoid factor was also negative. ASSESSMENT/PLAN 1. Acute kidney injury with mild to chronic kidney disease. 2. Recurrent urinary tract infection. 3. Recent history of pyelonephritis and sepsis. 4. Anemia. 5. Congestive heart failure. 6. Diabetes mellitus. 7. Hypertension. The patient has elevated creatinine. Her baseline is probably 1.2 to 1.3 and slightly elevated from her baseline. She has history of pyelonephritis with perinephric abscess drainage in August. It looks like she still has some infection. Infectious Disease is following. She is getting antibiotics. Urine culture should be followed up. Continue the hydration and the antibiotics. Avoid any nephrotoxins. Thank you for the consultation. I will follow the patient with you while in the hospital. MD RAFAELA Adams/CHELSEA /6:53 PM /8:01 PM
[2017-11-03] VITALS (10 sets, daily range): BP systolic 125–155; BP diastolic 64–72; PULSE 81–104; RESP 18–20; TEMP 98.5–100.1; O2SAT 92–99
[2017-11-03] MEDS: LINEZOLID 600 MG PREMIX 300 ML IV SCH ×2 (01:40→12:41)
[2017-11-03 03:47] LABS: HEMATOCRIT 23.9 % (35.0-46.0); MEAN CORPUSCULAR HEMOGLOBIN 27.9 PG (27.0-34.0); MEAN CORPUSCULAR HGB CONC 33.2 % (32.0-36.0); PLATELET COUNT 175 TH/MM3 (150-450); RED BLOOD COUNT 2.84 MIL/MM3 (4.00-5.30); RED CELL DISTRIBUTION WIDTH 15.4 % (11.6-17.2); REVIEW FLAG FINAL; WHITE BLOOD COUNT 10.4 TH/MM3 (4.0-11.0)
[2017-11-03 04:06] LABS: BICARBONATE 23.2 MEQ/L (21.0-32.0); POTASSIUM 3.6 MEQ/L (3.5-5.1)
[2017-11-03] MEDS: RESP: ALBUTEROL 2.5 MG/IPRATROPIUM 0.5 MG NEB (SCH) NEB ×4 (04:45→22:15)
[2017-11-03] MEDS: SODIUM CHLOR 0.9% 1000 ML INJ 1,000 ML IV SCH (05:26)
--- NOTE | 2017-11-03 08:48 | PD.CARD.PN ---
Subjective Subjective Remarks Patient had worsening shortness of breath overnight. She complains of chest congestion and cough productive with yellow sputum, no specific chest pain. She received blood transfusion overnight. (Jack Cardenas) Objective Medications Current Medications Medications (Trade) Dose Ordered Sig/Alisha Route Start Time Stop Time Status Last Admin (NS Flush) 2 ml UNSCH PRN IV FLUSH 11/01/17 11:45 (NS Flush) 2 ml BID IV FLUSH 11/01/17 11:45 11/01/17 21:50 (Heparin Inj) 5,000 units Q12H SQ 11/01/17 12:00 11/02/17 23:20 (Narcan Inj) 0.4 mg UNSCH PRN IV PUSH 11/01/17 11:45 (Bridgette-Colace) 1 tab BID PO 11/01/17 21:00 11/02/17 21:16 (NovoLOG SUPPLEMENTAL SCALE) 1 ACHS SLIDING SCALE SQ 11/01/17 12:00 11/02/17 17:01 (Norvasc) 10 mg DAILY PO 11/01/17 12:30 11/02/17 08:37 (Ecotrin Ec) 325 mg DAILY PO 11/01/17 12:30 11/02/17 08:36 (Ferrous Sulfate) 325 mg BID PO 11/01/17 12:30 11/02/17 21:16 (Lopid) 300 mg DAILY PO 11/01/17 12:30 11/02/17 08:37 (Trandate) 100 mg Q12HR PO 11/01/17 12:30 11/02/17 21:16 (Levaquin) 500 mg Q48H PO 11/01/17 13:00 11/01/17 13:36 (Roxicodone) 5 mg Q6H PRN PO 11/01/17 11:45 11/02/17 23:19 (Pravachol) 10 mg DAILY PO 11/02/17 09:00 11/02/17 08:37 Linezolid 300 ml @ 300 mls/hr Q12H IV 11/01/17 23:00 11/03/17 01:40 Sodium Chloride 1,000 ml @ 116 mls/hr Q8H38M IV 11/01/17 12:15 11/02/17 21:16 (Pill Splitter) 1 ea UNSCH PRN OTHER 11/01/17 12:45 (Zofran Inj) 4 mg Q6H PRN IVP 11/01/17 14:15 11/02/17 23:20 (Morphine Inj) 4 mg Q3H PRN IV PUSH 11/01/17 16:15 (Tylenol) 650 mg Q6H PRN PO 11/01/17 16:45 11/01/17 17:10 (Milk Of Magnesia Liq) 30 ml Q12H PRN PO 11/01/17 16:45 (Senokot) 17.2 mg Q12H PRN PO 11/01/17 16:45 11/01/17 17:09 (Dulcolax Supp) 10 mg DAILY PRN RECTAL 11/01/17 16:45 (Lactulose Liq) 30 ml DAILY PRN PO 11/01/17 16:45 (Duoneb Neb) 1 ampule Q6HR NEB NEB 11/02/17 12:00 11/05/17 11:59 11/03/17 08:18 Sodium Chloride 250 ml @ 15 mls/hr ONCE ONCE IV 11/02/17 19:00 11/03/17 11:39 11/02/17 22:21 Vital Signs / I&O Vital Signs Date Time Temp Pulse Resp B/P (MAP) Pulse Ox O2 Delivery O2 Flow Rate FiO2 11/03/17 08:20 92 Nasal Cannula 4.00 11/03/17 04:00 98.9 91 18 151/72 (98) 92 11/03/17 01:50 98.6 88 20 152/69 (96) 94 11/03/17 01:49 98.6 88 20 152/69 94 11/03/17 00:31 22 11/03/17 00:00 90 11/02/17 22:36 99.0 101 20 153/72 95 11/02/17 22:13 99.0 100 20 159/74 94 11/02/17 21:35 94 Nasal Cannula 3.00 11/02/17 21:23 99.0 96 20 141/65 (90) 94 11/02/17 20:00 88 11/02/17 20:00 Nasal Cannula 3.00 11/02/17 16:00 100.6 99 20 117/73 (88) 94 11/02/17 12:46 91 Nasal Cannula 3.00 11/02/17 12:00 99.2 89 20 155/66 (95) 93 I/O 11/02/17 11/02/17 11/02/17 11/03/17 11/03/17 11/03/17 07:00 15:00 23:00 07:00 15:00 23:00 Intake Total 240 ml 3018 ml 1007 ml Output Total 400 ml 1600 ml 1350 ml Balance -160 ml 1418 ml -343 ml Intake Oral 240 ml 840 ml 120 ml IV Total 2173 ml 552 ml Packed Cells 310 ml Blood Product IV Normal Saline Flush 5 ml 25 ml Output Urine Total 400 ml 1600 ml 1350 ml # Bowel Movements 0 1 0 Physical Exam GENERAL: Well-developed well-nourished. Mildly uncomfortable secondary to dyspnea. NECK: No carotid bruits. No JVD. CARDIOVASCULAR: Regular rate and rhythm. No murmur appreciated. RESPIRATORY: No accessory muscle use. Diffuse coarse wheezing in all lung [place].. MUSCULOSKELETAL: No clubbing or cyanosis. Trace lower extremity edema. NEUROLOGICAL: Awake and alert. Normal speech. Laboratory Laboratory Tests Test 11/02/17 17:21 11/03/17 03:26 Hemoglobin 6.8 GM/DL 7.9 GM/DL Hematocrit 20.2 % 23.9 % White Blood Count 10.4 TH/MM3 Red Blood Count 2.84 MIL/MM3 Mean Corpuscular Volume 84.0 FL Mean Corpuscular Hemoglobin 27.9 PG Mean Corpuscular Hemoglobin Concent 33.2 % Red Cell Distribution Width 15.4 % Platelet Count 175 TH/MM3 Mean Platelet Volume 7.1 FL Blood Urea Nitrogen 25 MG/DL Creatinine 1.66 MG/DL Random Glucose 195 MG/DL Calcium Level 7.9 MG/DL Sodium Level 135 MEQ/L Potassium Level 3.6 MEQ/L Chloride Level 101 MEQ/L Carbon Dioxide Level 23.2 MEQ/L Anion Gap 11 MEQ/L Estimat Glomerular Filtration Rate 38 ML/MIN Imaging Last Impressions Chest X-Ray 11/02/17 0000 Signed Impressions: Service Date/Time: Thursday, November 02, 2017 00:44 - CONCLUSION: 1. Mild patchy opacity at the right lung base. 2. The known small pleural effusions seen on the CT angiogram are not visualized. Eric Petty MD CT Angiography 11/01/17 0826 Signed Impressions: Service Date/Time: Wednesday, November 01, 2017 09:54 - CONCLUSION: 1. Moderate congestive failure with trace bilateral pleural effusions 2. Right hilar and mediastinal adenopathy, nonspecific but deserves followup. Gold Dorantes MD FACR (Jack Cardenas) Assessment and Plan Assessment and Plan 67-year-old female with a past medical history of HTN, DM, pyelonephritis who presented with shortness of breath and chest congestion. Shortness of breath/chest congestion: Seems more pulmonary with wheezing and productive cough. Chest imaging showed mild patchy opacity in the right lung base and known small pleural effusions. Recommend pulmonary evaluation and treatment for underlying pneumonia/reactive airway disease. Caution with aggressive diuresis at this time with kidney injury and previous normal systolic function on echocardiograms. History of CVA/PFO: At some point in the future could consider endovascular closure device, but contraindicated at this time with ongoing anemia and infection. Elevated troponin: Likely demand mediated secondary to anemia and renal injury. No specific cardiac complaints. Could consider Lexiscan was breathing improves, although this time not a candidate for any Cardiac intervention with anemia and infection. Anemia: Possibly of chronic disease. Status post transfusion overnight with some improvement. (Jack Cardenas) Assessment and Plan agree with above. lexiscan GI following for endoscopy once cleared SOB more pulmonary. mild diastolic CHF. gentle diuresis CVA/PFO - outpatient discussion on endovascular closure once infection and anemia issues resolved (Amrit Swan MD) Jack Cardenas Nov 03, 2017 08:47 Amrit Swan MD Nov 03, 2017 09:43
[2017-11-03] MEDS: DOCUSATE SODIUM 50 MG/SENNA 8.6 MG TAB PO SCH ×2 (08:53→20:55)
[2017-11-03] MEDS: PRAVASTATIN SOD 10 MG TAB PO SCH (08:53)
[2017-11-03] MEDS: FERROUS SULFATE 325 MG (65 MG ELEMENTAL IRON) TAB PO SCH ×2 (08:53→20:55)
[2017-11-03] MEDS: LABETALOL HCL 100 MG TAB PO SCH ×2 (08:53→20:55)
[2017-11-03] MEDS: GEMFIBROZIL 600 MG TAB PO SCH (08:53)
[2017-11-03] MEDS: ASPIRIN EC 325 MG TABEC PO SCH (08:54)
[2017-11-03] MEDS: INSULIN ASPART SUPPLEMENTAL SCALE SQ SCH ×4 (08:54→20:55)
--- NOTE | 2017-11-03 11:28 | HHI.FPPN ---
Subjective Remarks Patient received 1 unit of PRBC overnight for Hbg of 6.8. Post-transfusion Hbg 7.9. Patient reports not sleeping well last night due to congestion and wheezing. She reports that the Duoneb breathing treatments help to alleviate her symptoms. On 4L 02 NC. She also reports that she is mildly constipated. Last BM was 2 days ago. She denies CP, abdominal pain, N/V, and diarrhea. Afebrile. VSS. (Kacey Clark MD R1) Objective Vitals Vital Signs Date Time Temp Pulse Resp B/P (MAP) Pulse Ox O2 Delivery O2 Flow Rate FiO2 11/03/17 08:20 92 Nasal Cannula 4.00 11/03/17 04:00 98.9 91 18 151/72 (98) 92 11/03/17 01:50 98.6 88 20 152/69 (96) 94 11/03/17 01:49 98.6 88 20 152/69 94 11/03/17 00:31 22 11/03/17 00:00 90 11/02/17 22:36 99.0 101 20 153/72 95 11/02/17 22:13 99.0 100 20 159/74 94 11/02/17 21:35 94 Nasal Cannula 3.00 11/02/17 21:23 99.0 96 20 141/65 (90) 94 11/02/17 20:00 88 11/02/17 20:00 Nasal Cannula 3.00 11/02/17 16:00 100.6 99 20 117/73 (88) 94 11/02/17 12:46 91 Nasal Cannula 3.00 11/02/17 12:00 99.2 89 20 155/66 (95) 93 I/O 11/02/17 11/02/17 11/02/17 11/03/17 11/03/17 11/03/17 07:00 15:00 23:00 07:00 15:00 23:00 Intake Total 240 ml 3018 ml 1007 ml Output Total 400 ml 1600 ml 1350 ml Balance -160 ml 1418 ml -343 ml Intake Oral 240 ml 840 ml 120 ml IV Total 2173 ml 552 ml Packed Cells 310 ml Blood Product IV Normal Saline Flush 5 ml 25 ml Output Urine Total 400 ml 1600 ml 1350 ml # Bowel Movements 0 1 0 (Kacey Clark MD R1) Result Diagram: 11/03/17 0326 11/03/17 0326 Objective Remarks GENERAL: lying in bed, on 4 L O2 NC, pleasant SKIN: No rashes, ecchymoses or lesions. Warm and dry. HEAD: NC/AT EYES: PERRL. EOMI. No conjunctival injection or drainage. ENT: Mucous membranes moist, OP without erythema, tonsillar swelling, or exudate. NECK: Supple, no lymphadenopathy. No JVD. CARDIOVASCULAR: RRR, no m/r/g RESPIRATORY: moderate wheezing throughout GASTROINTESTINAL: Abdomen soft, non-distended, non-tender. No hepato- splenomegaly or palpable masses. MUSCULOSKELETAL: Trace edema in lower extremities NEUROLOGICAL: Awake and alert. Oriented x3. 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 Admitted for ACS r/o, CHF exacerbation, sepsis most likely secondary to pyelonephritis vs pneumonia. Discharge Planning Home health PT (Kacey Clark MD R1) Attending Attestation Patient seen and examined. Case reviewed and discussed with the resident team. Agree with plan of care as discussed with me and documented in the resident note. (Margret Desai MD) Problem List: (1) Sepsis ICD Codes: A41.9 - Sepsis, unspecified organism Status: Resolved Plan: Patient with fever of 101 and tachycardia 99-11 on admission. Likely source of infection includes pyelonephritis Lactic acid 1.6. No signs of organ dysfunction. WBC wnl UA revealed moderate leukocyte esterase, bacteria, RBC and WBC Blood cultures collected s/p 1x of Linezolid in ED ID consulted, appreciate recs Preliminary urine culture shows pseudomonas species Sputum gram stain and culture showed normal bj Discontinued Linezolid 600mg IV q12h (10/15-11/03) and Levaquin 600mg PO q48h (-11/03) Start Zosyn 3.375 GM q6h (2) Pyelonephritis ICD Codes: N12 - Pyelonephritis Status: Acute Plan: Elevated creatinine 1.31 upon admission. Cr today is 1.66. Baseline is 1.2-1.3. Preliminary urine culture shows Pseudomonas. Please see plan above (3) Chest pain ICD Codes: R07.9 - Chest pain, unspecified Status: Acute Plan: Pleuritic chest pain. ACS r/o Troponin 0.30, 0.50, 0.59 EKG sinus tachycardia Cardiology consulted, recs appreciated History of CVA/PRO: consider endovascular closure device in the future, contraindicated at this time with ongoing anemia and infection Symptoms more likely pulmonary than cardiac. Be cautious with aggressive diuresis given her last hospitalization she bumped the Cr quickly. Elevated troponin. Likely demand mediated secondary to anemia and renal injury. Consider lexiscan once breathing improves. Not likely candidate for invasive strategy or intervention given anemia. (4) Congestive heart failure ICD Codes: I50.9 - Heart failure, unspecified Status: Acute Plan: s/p 1 dose of lasix in ED CXR no acute disease CTA revealed moderate congestive failure with trace b/l pleural effusions. Right hilar and mediastinal adenopathy, nonspecific but deserves followup BNP 594 strict I & Os (5) Anemia ICD Codes: D64.9 - Anemia, unspecified Status: Acute Plan: s/p 1 unit of RBCs transfusion 11/02 Continue to monitor H/H Hemoccult positive, performed in room on 11/02. GI consulted, recs appreciated. EGD and colonoscopy when respiratory status improved and pt able to tolerate bowel prep Notify GI of active bleeding (6) Diabetes mellitus ICD Codes: E11.9 - Type 2 diabetes mellitus without complications Status: Chronic Plan: -Held home insulin -Low dose SS (7) Hypertension Status: Chronic Plan: -Continue home meds: Amlodipine, Labetalol (8) Dyslipidemia ICD Codes: E78.5 - Dyslipidemia Status: Chronic Plan: -Continue home Pravastatin and gemfibrozil (9) Nutrition, metabolism, and development symptoms ICD Codes: R63.8 - Other symptoms and signs concerning food and fluid intake Plan: Diet: Diabetic Diet 1800 ADA cons Carb Electrolytes: monitor and replace as needed Fluids: None vitals q4h, monitor strict I & Os DVT ppx: heparin 5000 units sq 12h (Kacey Clark MD R1) Problem Qualifiers (1) Sepsis: Qualified Codes: A41.9 - Sepsis, unspecified organism (2) Congestive heart failure: Qualified Codes: I50.9 - Heart failure, unspecified Kacey Clark MD R1 Nov 03, 2017 11:28 Margret Desai MD Nov 03, 2017 14:36
[2017-11-03] MEDS ORDERED: BISACODYL 10 MG SUPP RECTAL ONE (11:30)
[2017-11-03] MEDS: HEPARIN SODIUM - SQ 10,000 UNITS/ML VIAL SQ SCH (12:41)
[2017-11-03] MEDS: LEVOFLOXACIN 500 MG TAB PO SCH (12:41)
[2017-11-03] MEDS: ONDANSETRON HCL 4 MG/2 ML VIAL IVP PRN ×2 (12:50→17:51)
--- NOTE | 2017-11-03 13:54 | HHI.NPPN ---
Subjective History of Present Illness 67-year-old female known to me from before with past medical history of hypertension, diabetes mellitus, ischemic heart disease, congestive heart failure, came to the hospital with complaint of cough and shortness of breath. I was called to see the patient because of elevated BUN and creatinine. The patient has history of acute kidney injury and she was recently discharged. Additional Remarks Patient is alert, has nausea, and mild abd. pain, no SOB. Review of Systems General Constitutional: Fatigue Cardiovascular Cardiac: OSBORNE Gastrointestinal Gastrointestinal: Abdominal Pain, Nausea & Vomiting Objective Data Data Vital Signs Date Time Temp Pulse Resp B/P (MAP) Pulse Ox O2 Delivery O2 Flow Rate FiO2 11/03/17 08:20 92 Nasal Cannula 4.00 11/03/17 04:00 98.9 91 18 151/72 (98) 92 11/03/17 01:50 98.6 88 20 152/69 (96) 94 11/03/17 01:49 98.6 88 20 152/69 94 11/03/17 00:31 22 11/03/17 00:00 90 11/02/17 22:36 99.0 101 20 153/72 95 11/02/17 22:13 99.0 100 20 159/74 94 11/02/17 21:35 94 Nasal Cannula 3.00 11/02/17 21:23 99.0 96 20 141/65 (90) 94 11/02/17 20:00 88 11/02/17 20:00 Nasal Cannula 3.00 11/02/17 16:00 100.6 99 20 117/73 (88) 94 -: 11/03/17 0326 11/03/17 0326 Physical Exam General Appearance: No Acute Distress, Comfortable Eyes Eye Exam: Pupils Equal Throat Throat Exam: Oral Mucosa [place] & Moist Neck Neck Exam: Neck Supple, Trachea Midline Pulmonary Resp Exam: Breath Sounds Equal, No Distress, Rhonchi, Decreased Bases Cardiology CV Exam: Regular, Normal Sinus Rhythm Gastrointestinal/Abdomen GI Exam: Soft, Non-Tender, Bowel Sounds Present Extremeties Extremities Exam: Trace Edema Neurologic Neuro Exam: Alert, Awake, Oriented Psychiatric Psych Exam: Appropriate Responses Assessment/Plan Assessment Summary: DELLA/Acute Renal Failure, Hypertension, CKD Stage III Problem List: (1) UTI (urinary tract infection) ICD Codes: N39.0 - Urinary tract infection, site not specified (2) Essential hypertension ICD Codes: I10 - Essential hypertension Status: Acute (3) Shortness of breath ICD Codes: R06.02 - Shortness of breath Status: Acute (4) Diabetes mellitus ICD Codes: E11.9 - Type 2 diabetes mellitus without complications Status: Chronic (5) Anemia ICD Codes: D64.9 - Anemia, unspecified Status: Acute (6) Hypertension Status: Chronic (7) DELLA (acute kidney injury) ICD Codes: N17.9 - Acute kidney failure, unspecified Status: Acute Plan Patient has slight increase in the Creatinine. Has UTI, on Zosyn, ID following. Hgb is low, transfused. BP is stable. Most likely has ATN causing DELLA. Continue antibiotics. GI is following the patient. Pita Huitron MD Nov 03, 2017 13:54
--- NOTE | 2017-11-03 14:55 | HHI.GIFU ---
Subjective Remarks Pt sitting up in bed eating lunch. Denies N/V/abdominal pain. Has had a formed BM. Denies BRB in stool or dark, tarry stool. She had an episode of severe SOB last night, currently on 4 L NC, does not wear oxygen at home. Due to impaired kidney function, diuresis is difficult at this time. (Isabel Fitzgerald) Objective Vitals I&O Vital Signs Date Time Temp Pulse Resp B/P (MAP) Pulse Ox O2 Delivery O2 Flow Rate FiO2 11/03/17 14:18 20 11/03/17 08:20 92 Nasal Cannula 4.00 11/03/17 04:00 98.9 91 18 151/72 (98) 92 11/03/17 01:50 98.6 88 20 152/69 (96) 94 11/03/17 01:49 98.6 88 20 152/69 94 11/03/17 00:00 90 11/02/17 22:36 99.0 101 20 153/72 95 11/02/17 22:13 99.0 100 20 159/74 94 11/02/17 21:35 94 Nasal Cannula 3.00 11/02/17 21:23 99.0 96 20 141/65 (90) 94 11/02/17 20:00 88 11/02/17 20:00 Nasal Cannula 3.00 11/02/17 16:00 100.6 99 20 117/73 (88) 94 I/O 11/02/17 11/02/17 11/02/17 11/03/17 11/03/17 11/03/17 07:00 15:00 23:00 07:00 15:00 23:00 Intake Total 240 ml 3018 ml 1007 ml Output Total 400 ml 1600 ml 1350 ml Balance -160 ml 1418 ml -343 ml Intake Oral 240 ml 840 ml 120 ml IV Total 2173 ml 552 ml Packed Cells 310 ml Blood Product IV Normal Saline Flush 5 ml 25 ml Output Urine Total 400 ml 1600 ml 1350 ml # Bowel Movements 0 1 0 Laboratory Laboratory Tests Test 11/02/17 17:21 11/03/17 03:26 Hemoglobin 6.8 7.9 Hematocrit 20.2 23.9 White Blood Count 10.4 Red Blood Count 2.84 Mean Corpuscular Volume 84.0 Mean Corpuscular Hemoglobin 27.9 Mean Corpuscular Hemoglobin Concent 33.2 Red Cell Distribution Width 15.4 Platelet Count 175 Mean Platelet Volume 7.1 Blood Urea Nitrogen 25 Creatinine 1.66 Random Glucose 195 Calcium Level 7.9 Sodium Level 135 Potassium Level 3.6 Chloride Level 101 Carbon Dioxide Level 23.2 Anion Gap 11 Estimat Glomerular Filtration Rate 38 Date/Time Source Procedure Growth Status 11/01/17 08:35 Blood Peripheral Aerobic Blood Culture - Preliminary NO GROWTH IN 2 DAYS Resulted 11/01/17 08:35 Blood Peripheral Anaerobic Blood Culture - Preliminary NO GROWTH IN 2 DAYS Resulted 11/01/17 18:09 Sputum Expectorated Sputum Gram Stain - Final Complete 11/01/17 18:09 Sputum Expectorated Sputum Sputum Culture - Final HEAVY GROWTH NORMAL RESPIRATORY ECTOR Complete 11/01/17 15:50 Urine Random Urine Urine Culture - Preliminary Pseudomonas Species Resulted Imaging Last Impressions Chest X-Ray 11/02/17 0000 Signed Impressions: Service Date/Time: Thursday, November 02, 2017 00:44 - CONCLUSION: 1. Mild patchy opacity at the right lung base. 2. The known small pleural effusions seen on the CT angiogram are not visualized. Eric Petty MD CT Angiography 11/01/17 0826 Signed Impressions: Service Date/Time: Wednesday, November 01, 2017 09:54 - CONCLUSION: 1. Moderate congestive failure with trace bilateral pleural effusions 2. Right hilar and mediastinal adenopathy, nonspecific but deserves followup. Gold Dorantes MD FACR Physical Exam HEENT:Normocephalic; atraumatic CHEST: Diffuse wheezing CARDIAC: RRR ABDOMEN: Soft, obese, nontender; no hepatosplenomegaly; bowel sounds active x 4. SKIN: Normal; no rash; no jaundice. GRINDER SET UP OPERATOR: No focal deficits; alert and oriented times three. (Isabel Fitzgerald) Assessment and Plan Plan ASSESSMENT - Anemia - normocytic. Hemoccult (+) stool. hgb 7.8 on admission- currently 7.9 /23.9 S/P 1 U PRBC. History of anemia during previous admission for pyelonephritis. Last colonoscopy 2016 normal. Denies history of GIB. would recommend EGD/colonoscopy when respiratory status improves and able to tolerate bowel prep. - Sepsis 2/2 pyelonephritis, PNA, CHF, chest pain - per attending PLAN - MEREDITH - EGD and colonoscopy when respiratory status improves and pt able to tolerate bowel prep - Monitor HH - Transfuse as needed - Notify GI of active bleeding - Supportive care This patient has been seen and examined by myself and Dr. Almanza and this note is written on his behalf (Isabel Fitzgerald) Physician Comments Seen and examined with UPHOLSTERY HANDLER, gi espinoza on hold till respiratory status improves. Monitor labs. (Marina Almanza MD) Isabel Fitzgerald Nov 03, 2017 14:55 Marina Almanza MD Nov 03, 2017 16:13
--- NOTE | 2017-11-03 16:29 | HHI.IDPN ---
Note Infectious Disease Note Patient feels same. Has cough and congestion. (+) SOB. Low grade fever. Urine culture has pseudomonas. History of recent emphysematous pyelonephritis and right perinephric abscess. PAST MEDICAL HISTORY 1. Diabetes mellitus. 2. Hypertension. 3. Hyperlipidemia. 4. Pyelonephritis. 5. Perinephric abscess. ALLERGIES METFORMIN AND CLONIDINE. ANTIBIOTICS 1. Linezolid. 2. Levaquin. OBJECTIVE: Vital Signs Date Time Temp Pulse Resp B/P (MAP) Pulse Ox O2 Delivery O2 Flow Rate FiO2 11/03/17 14:18 20 11/03/17 14:00 Nasal Cannula 3.00 11/03/17 12:00 100.1 85 20 155/72 (99) 95 11/03/17 08:20 92 Nasal Cannula 4.00 11/03/17 08:00 98.5 104 18 125/64 (84) 94 11/03/17 04:00 98.9 91 18 151/72 (98) 92 11/03/17 01:50 98.6 88 20 152/69 (96) 94 11/03/17 01:49 98.6 88 20 152/69 94 11/03/17 00:00 90 11/02/17 22:36 99.0 101 20 153/72 95 11/02/17 22:13 99.0 100 20 159/74 94 11/02/17 21:35 94 Nasal Cannula 3.00 11/02/17 21:23 99.0 96 20 141/65 (90) 94 11/02/17 20:00 88 11/02/17 20:00 Nasal Cannula 3.00 Laboratory Tests Test 11/02/17 07:00 11/02/17 17:21 11/03/17 03:26 White Blood Count 7.8 TH/MM3 10.4 TH/MM3 Red Blood Count 2.55 MIL/MM3 2.84 MIL/MM3 Hemoglobin 7.2 GM/DL 6.8 GM/DL 7.9 GM/DL Hematocrit 21.3 % 20.2 % 23.9 % Mean Corpuscular Volume 83.2 FL 84.0 FL Mean Corpuscular Hemoglobin 28.3 PG 27.9 PG Mean Corpuscular Hemoglobin Concent 34.1 % 33.2 % Red Cell Distribution Width 15.2 % 15.4 % Platelet Count 164 TH/MM3 175 TH/MM3 Mean Platelet Volume 7.5 FL 7.1 FL Neutrophils (%) (Auto) 57.0 % Lymphocytes (%) (Auto) 34.6 % Monocytes (%) (Auto) 7.1 % Eosinophils (%) (Auto) 0.2 % Basophils (%) (Auto) 1.1 % Neutrophils # (Auto) 4.4 TH/MM3 Lymphocytes # (Auto) 2.7 TH/MM3 Monocytes # (Auto) 0.6 TH/MM3 Eosinophils # (Auto) 0.0 TH/MM3 Basophils # (Auto) 0.1 TH/MM3 CBC Comment DIFF FINAL Differential Comment Laboratory Tests Test 11/01/17 20:10 11/02/17 07:00 11/03/17 03:26 Troponin I 0.56 NG/ML Blood Urea Nitrogen 21 MG/DL 25 MG/DL Creatinine 1.40 MG/DL 1.66 MG/DL Random Glucose 196 MG/DL 195 MG/DL Calcium Level 8.2 MG/DL 7.9 MG/DL Sodium Level 134 MEQ/L 135 MEQ/L Potassium Level 3.9 MEQ/L 3.6 MEQ/L Chloride Level 101 MEQ/L 101 MEQ/L Carbon Dioxide Level 23.1 MEQ/L 23.2 MEQ/L Anion Gap 10 MEQ/L 11 MEQ/L Estimat Glomerular Filtration Rate 46 ML/MIN 38 ML/MIN B-Type Natriuretic Peptide 540 PG/ML Microbiology Date/Time Source Procedure Growth Status 11/01/17 08:35 Blood Peripheral Aerobic Blood Culture - Preliminary NO GROWTH IN 2 DAYS Resulted 11/01/17 08:35 Blood Peripheral Anaerobic Blood Culture - Preliminary NO GROWTH IN 2 DAYS Resulted 11/01/17 08:30 Blood Peripheral Aerobic Blood Culture - Preliminary NO GROWTH IN 2 DAYS Resulted 11/01/17 08:30 Blood Peripheral Anaerobic Blood Culture - Preliminary NO GROWTH IN 2 DAYS Resulted 11/01/17 18:09 Sputum Expectorated Sputum Gram Stain - Final Complete 11/01/17 18:09 Sputum Expectorated Sputum Sputum Culture - Final HEAVY GROWTH NORMAL RESPIRATORY BJ Complete 11/01/17 15:50 Urine Random Urine Urine Culture - Preliminary Pseudomonas Species Resulted IMAGING: Chest X-Ray 11/02/17 0000 Signed Impressions: Service Date/Time: Thursday, November 02, 2017 00:44 - CONCLUSION: 1. Mild patchy opacity at the right lung base. 2. The known small pleural effusions seen on the CT angiogram are not visualized. Eric Petty MD CT Angiography 11/01/17 0826 Signed Impressions: Service Date/Time: Wednesday, November 01, 2017 09:54 - CONCLUSION: 1. Moderate congestive failure with trace bilateral pleural effusions 2. Right hilar and mediastinal adenopathy, nonspecific but deserves followup. Gold Dorantes MD FACR PHYSICAL EXAMINATION GENERAL: No acute distress. HEENT: Head atraumatic. Extraocular movements grossly intact, pupils reactive to light. No icterus. Oropharynx moist mucosa without lesions. NECK: Supple without adenopathy. LUNGS: Coarse bilateral rhonchi. HEART: Regular S1-S2 without murmurs. ABDOMEN: Bowel sounds present, soft, no tenderness. EXTREMITIES: No clubbing, cyanosis or edema. SKIN: No rash. NEUROLOGIC: No gross focal findings. IMPRESSION 1. Sepsis probably secondary to urinary infection. 2. UTI - pseudomonas. 3. Shortness of breath and cough. Rule out pneumonia. Probable CHF. Sputum culture has normal bj. 4. History of perinephric abscess. RECOMMENDATIONS 1. Stop linezolid. 2. Stop Levaquin. 3. Treat with Zosyn IV. 4. Urine culture sensitivity. Nikita Griffin MD Nov 03, 2017 16:29
[2017-11-03] MEDS: PIPERACIL-TAZO 3.375 GM PREMIX 50 ML IV SCH ×2 (17:51→22:31)
[2017-11-03] MEDS: SODIUM CHLORIDE 0.9% FLUSH 10 ML FLUSH IV FLUSH SCH (20:56)
[2017-11-04] VITALS (10 sets, daily range): BP systolic 114–169; BP diastolic 59–80; PULSE 72–91; RESP 18–20; TEMP 97.9–98.8; O2SAT 96–99
[2017-11-04] MEDS: HEPARIN SODIUM - SQ 10,000 UNITS/ML VIAL SQ SCH ×2 (00:38→11:20)
[2017-11-04] MEDS: ONDANSETRON HCL 4 MG/2 ML VIAL IVP PRN ×2 (00:48→11:20)
[2017-11-04] MEDS: RESP: ALBUTEROL 2.5 MG/IPRATROPIUM 0.5 MG NEB (SCH) NEB ×5 (03:48→21:05)
[2017-11-04] MEDS: PIPERACIL-TAZO 3.375 GM PREMIX 50 ML IV SCH ×4 (05:37→21:19)
--- NOTE | 2017-11-04 07:35 | PD.CARD.PN ---
Subjective Subjective Remarks Patient still with a lot of chest congestion and shortness of breath, however slightly improved overnight, continues with productive cough. She denies any chest pain. Nothing by mouth for Lexiscan today. Objective Medications Current Medications Medications (Trade) Dose Ordered Sig/Alisha Route Start Time Stop Time Status Last Admin (NS Flush) 2 ml UNSCH PRN IV FLUSH 11/01/17 11:45 (NS Flush) 2 ml BID IV FLUSH 11/01/17 11:45 11/03/17 20:56 (Heparin Inj) 5,000 units Q12H SQ 11/01/17 12:00 11/04/17 00:38 (Narcan Inj) 0.4 mg UNSCH PRN IV PUSH 11/01/17 11:45 (Bridgette-Colace) 1 tab BID PO 11/01/17 21:00 11/03/17 20:55 (NovoLOG SUPPLEMENTAL SCALE) 1 ACHS SLIDING SCALE SQ 11/01/17 12:00 11/03/17 17:00 (Norvasc) 10 mg DAILY PO 11/01/17 12:30 11/03/17 08:53 (Ecotrin Ec) 325 mg DAILY PO 11/01/17 12:30 11/03/17 08:54 (Ferrous Sulfate) 325 mg BID PO 11/01/17 12:30 11/03/17 20:55 (Lopid) 300 mg DAILY PO 11/01/17 12:30 11/03/17 08:53 (Trandate) 100 mg Q12HR PO 11/01/17 12:30 11/03/17 20:55 (Roxicodone) 5 mg Q6H PRN PO 11/01/17 11:45 11/04/17 00:48 (Pravachol) 10 mg DAILY PO 11/02/17 09:00 11/03/17 08:53 (Pill Splitter) 1 ea UNSCH PRN OTHER 11/01/17 12:45 (Zofran Inj) 4 mg Q6H PRN IVP 11/01/17 14:15 11/04/17 00:48 (Morphine Inj) 4 mg Q3H PRN IV PUSH 11/01/17 16:15 11/03/17 17:52 (Tylenol) 650 mg Q6H PRN PO 11/01/17 16:45 11/01/17 17:10 (Milk Of Magnesia Liq) 30 ml Q12H PRN PO 11/01/17 16:45 (Senokot) 17.2 mg Q12H PRN PO 11/01/17 16:45 11/01/17 17:09 (Lactulose Liq) 30 ml DAILY PRN PO 11/01/17 16:45 (Duoneb Neb) 1 ampule Q6HR NEB NEB 11/02/17 12:00 11/05/17 11:59 11/04/17 03:48 Piperacillin Sod/ Tazobactam Sod 50 ml @ 100 mls/hr Q6H IV 11/03/17 16:00 11/04/17 05:37 Vital Signs / I&O Vital Signs Date Time Temp Pulse Resp B/P (MAP) Pulse Ox O2 Delivery O2 Flow Rate FiO2 11/04/17 04:00 98.7 76 18 134/70 (91) 99 11/04/17 00:00 97.9 72 20 124/69 (87) 99 11/03/17 22:17 99 Nasal Cannula 3.00 11/03/17 21:07 Nasal Cannula 4.00 11/03/17 20:03 81 11/03/17 20:00 98.5 82 20 147/70 (95) 99 11/03/17 14:18 20 11/03/17 14:00 Nasal Cannula 3.00 11/03/17 12:00 100.1 85 20 155/72 (99) 95 11/03/17 08:20 92 Nasal Cannula 4.00 11/03/17 08:00 98.5 104 18 125/64 (84) 94 I/O 11/03/17 11/03/17 11/03/17 11/04/17 11/04/17 11/04/17 07:00 15:00 23:00 07:00 15:00 23:00 Intake Total 1007 ml 540 ml 50 ml Output Total 1350 ml 250 ml 900 ml Balance -343 ml 290 ml -850 ml Intake Oral 120 ml 540 ml IV Total 552 ml 50 ml Packed Cells 310 ml Blood Product IV Normal Saline Flush 25 ml Output Urine Total 1350 ml 250 ml 900 ml # Bowel Movements 0 0 2 Physical Exam GENERAL: Well-developed well-nourished. In no acute distress. NECK: No carotid bruits. No JVD. CARDIOVASCULAR: Regular rate and rhythm. No murmur appreciated. RESPIRATORY: No accessory muscle use. Diffuse coarse wheezing and rhonchi in all lung [place].. MUSCULOSKELETAL: No clubbing or cyanosis. No edema. NEUROLOGICAL: Awake and alert. Normal speech. Imaging Last Impressions Chest X-Ray 11/02/17 0000 Signed Impressions: Service Date/Time: Thursday, November 02, 2017 00:44 - CONCLUSION: 1. Mild patchy opacity at the right lung base. 2. The known small pleural effusions seen on the CT angiogram are not visualized. Eric Petty MD CT Angiography 11/01/17 0826 Signed Impressions: Service Date/Time: Wednesday, November 01, 2017 09:54 - CONCLUSION: 1. Moderate congestive failure with trace bilateral pleural effusions 2. Right hilar and mediastinal adenopathy, nonspecific but deserves followup. Gold Dorantes MD FACR Assessment and Plan Assessment and Plan 67-year-old female with a past medical history of HTN, DM, pyelonephritis who presented with shortness of breath and chest congestion. Shortness of breath/chest congestion: Seems more pulmonary with wheezing and productive cough. Chest imaging showed mild patchy opacity in the right lung base and known small pleural effusions. Recommend pulmonary evaluation and treatment for underlying pneumonia/reactive airway disease. Caution with aggressive diuresis at this time with kidney injury and previous normal systolic function on echocardiograms. History of CVA/PFO: At some point in the future could consider endovascular closure device, but contraindicated at this time with ongoing anemia and infection. Elevated troponin: Likely demand mediated secondary to anemia and renal injury. No specific cardiac complaints. Check Lexiscan, although probably not a candidate for any cardiac intervention with anemia and infection at this time. Anemia: Possibly of chronic disease. Status post transfusion 11/03 with improvement. GI following. Jack Cardenas Nov 04, 2017 07:35
[2017-11-04] MEDS: INSULIN ASPART SUPPLEMENTAL SCALE SQ SCH ×4 (08:00→21:00)
[2017-11-04 08:24] LABS: HEMATOCRIT 23.7 % (35.0-46.0); MEAN CELL VOLUME 84.5 FL (80.0-100.0); MEAN CORPUSCULAR HEMOGLOBIN 27.5 PG (27.0-34.0); MEAN CORPUSCULAR HGB CONC 32.5 % (32.0-36.0); PLATELET COUNT 151 TH/MM3 (150-450); RED BLOOD COUNT 2.81 MIL/MM3 (4.00-5.30); RED CELL DISTRIBUTION WIDTH 15.4 % (11.6-17.2); REVIEW FLAG FINAL; WHITE BLOOD COUNT 7.1 TH/MM3 (4.0-11.0)
[2017-11-04 08:55] LABS: BICARBONATE 24.3 MEQ/L (21.0-32.0); POTASSIUM 3.4 MEQ/L (3.5-5.1)
--- NOTE | 2017-11-04 09:05 | HHI.FPPN ---
Subjective Remarks No acute events overnight. Afebrile, vitals stable. Patient seen and examined this afternoon following her nuclear stress testing. She reports nausea and coughing up mucus. No episodes of emesis. Denies worsening SOB. No fevers or chills. Although she was having nausea earlier she is tolerating her diet. Denies dysuria. Objective Vitals Vital Signs Date Time Temp Pulse Resp B/P (MAP) Pulse Ox O2 Delivery O2 Flow Rate FiO2 11/04/17 08:06 98.8 88 19 169/80 (109) 98 11/04/17 04:00 98.7 76 18 134/70 (91) 99 11/04/17 00:00 97.9 72 20 124/69 (87) 99 11/03/17 22:17 99 Nasal Cannula 3.00 11/03/17 21:07 Nasal Cannula 4.00 11/03/17 20:03 81 11/03/17 20:00 98.5 82 20 147/70 (95) 99 11/03/17 14:18 20 11/03/17 14:00 Nasal Cannula 3.00 11/03/17 12:00 100.1 85 20 155/72 (99) 95 I/O 11/03/17 11/03/17 11/03/17 11/04/17 11/04/17 11/04/17 07:00 15:00 23:00 07:00 15:00 23:00 Intake Total 1007 ml 540 ml 50 ml Output Total 1350 ml 250 ml 900 ml Balance -343 ml 290 ml -850 ml Intake Oral 120 ml 540 ml IV Total 552 ml 50 ml Packed Cells 310 ml Blood Product IV Normal Saline Flush 25 ml Output Urine Total 1350 ml 250 ml 900 ml # Bowel Movements 0 0 2 Result Diagram: 11/04/1774211/04/1743 Objective Remarks GENERAL: lying in bed, pleasant SKIN: No rashes, ecchymoses or lesions. Warm and dry. HEAD: NC/AT EYES: EOMI. No conjunctival injection or drainage. ENT: Mucous membranes moist, OP without erythema, tonsillar swelling, or exudate. NECK: Supple, no lymphadenopathy. No JVD. CARDIOVASCULAR: RRR, no m/r/g RESPIRATORY: moderate wheezing throughout, faint bibasilar crackles GASTROINTESTINAL: Abdomen soft, non-distended, non-tender. No hepato- splenomegaly or palpable masses. MUSCULOSKELETAL: Trace pre-tibial lower extremity edema NEUROLOGICAL: Awake and alert. Oriented x3. 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 Admitted for ACS r/o, CHF exacerbation, sepsis most likely secondary to pyelonephritis vs pneumonia. Discharge Planning Unclear timetable of this time Anticipate home health care for physical therapy Problem List: (1) Sepsis ICD Codes: A41.9 - Sepsis, unspecified organism Status: Resolved Plan: Patient meeting sepsis criteria on admission Likely source of infection includes pyelonephritis Lactic acid 1.6 UA revealed moderate leukocyte esterase, bacteria, RBC and WBC Blood cultures no growth after 3 days ID consulted, appreciate recs Urine culture growing Pseudomonas species Sputum gram stain and culture showed normal bj Discontinued Linezolid 600mg IV q12h (10/15-11/03) and Levaquin 600mg PO q48h (-11/03) Started Zosyn 3.375 gm IV q6h (11/03) (2) Pyelonephritis ICD Codes: N12 - Pyelonephritis Status: Acute Plan: Plan as above Monitor renal function (3) Congestive heart failure ICD Codes: I50.9 - Heart failure, unspecified Status: Acute Plan: CXR no acute disease CTA revealed moderate congestive failure with trace b/l pleural effusions. Right hilar and mediastinal adenopathy, nonspecific but deserves followup BNP 594 Last echo: TERRELL from 09/21 showing normal left ventricular systolic function with an estimated EF of 60-65% Possibly diastolic component contributing to failure Monitor I/Os Cautious diuresis given DELLA and patient developing DELLA during her recent hospitalization Give Lasix 20 mg po x1 today 11/04 (4) Chest pain ICD Codes: R07.9 - Chest pain, unspecified Status: Resolved Plan: Pleuritic chest pain. ACS r/o Troponin 0.30, 0.50, 0.59 EKG sinus tachycardia Cardiology consulted, recs appreciated History of CVA/PRO: consider endovascular closure device in the future, contraindicated at this time with ongoing anemia and infection Symptoms more likely pulmonary than cardiac. Be cautious with aggressive diuresis given her last hospitalization she bumped the Cr quickly. Elevated troponin. Likely demand mediated secondary to anemia and renal injury. Consider lexiscan once breathing improves. Not likely candidate for invasive strategy or intervention given anemia. (5) Anemia ICD Codes: D64.9 - Anemia, unspecified Status: Acute Plan: s/p 1 unit of RBCs transfusion 11/02 Continue to monitor H/H Hemoccult positive, performed in room on 11/02. GI consulted, recs appreciated. EGD and colonoscopy when respiratory status improved and pt able to tolerate bowel prep (6) Diabetes mellitus ICD Codes: E11.9 - Type 2 diabetes mellitus without complications Status: Chronic Plan: -Held home insulin -Low dose ISS (7) Hypertension Status: Chronic Plan: -Continue home amlodipine and labetalol (8) Dyslipidemia ICD Codes: E78.5 - Dyslipidemia Status: Chronic Plan: - Continue home pravastatin and gemfibrozil (9) Nutrition, metabolism, and development symptoms ICD Codes: R63.8 - Other symptoms and signs concerning food and fluid intake Plan: Diet: 1800 ADA Electrolytes: monitor and replete as needed Fluids: None DVT ppx: heparin 5000 units sq 12h Problem Qualifiers (1) Sepsis: Qualified Codes: A41.9 - Sepsis, unspecified organism (2) Congestive heart failure: Qualified Codes: I50.9 - Heart failure, unspecified Ephraim Marlow MD R2 Nov 04, 2017 09:04
[2017-11-04] MEDS ORDERED: REGADENOSON INJ 0.4 MG/5 ML SYR ONE (09:17)
[2017-11-04] MEDS: ASPIRIN EC 325 MG TABEC PO SCH (11:25)
[2017-11-04] MEDS: LABETALOL HCL 100 MG TAB PO SCH ×2 (11:26→21:17)
[2017-11-04] MEDS: PRAVASTATIN SOD 10 MG TAB PO SCH (11:26)
[2017-11-04] MEDS: FERROUS SULFATE 325 MG (65 MG ELEMENTAL IRON) TAB PO SCH ×2 (11:26→21:51)
[2017-11-04] MEDS: SODIUM CHLORIDE 0.9% FLUSH 10 ML FLUSH IV FLUSH SCH ×2 (11:26→21:51)
[2017-11-04] MEDS: GEMFIBROZIL 600 MG TAB PO SCH (11:26)
[2017-11-04] MEDS: DOCUSATE SODIUM 50 MG/SENNA 8.6 MG TAB PO SCH ×2 (11:27→21:17)
--- NOTE | 2017-11-04 11:31 | RADRPT ---
EXAM DATE/TIME: 11/03/2017 12:01 [facility] COMPARISON: No previous studies available for comparison. INDICATIONS : Chest pain and shortness of breath. Angina. DOSE: 30.2 mCi Tc99m Myoview at stress. 32 mCi Tc99m Myoview at rest. 0.4 mg Lexiscan STRESS SYMPTOMS: Dyspnea and tired feeling. EJECTION FRACTION: 62% MEDICAL HISTORY : Diabetes mellitus type 2. Congestive heart failure. Hypertension. SURGICAL HISTORY : section. ENCOUNTER: Initial ACUITY: 2 days PAIN SCALE: 4/10 LOCATION: Left chest TECHNIQUE: The patient underwent pharmacologic stress with infusion of prescribed dose. Continuous ECG tracing was monitored during stress. Gated SPECT imaging was performed after stress and conventional SPECT i maging was performed at rest. The examination was performed on a SPECT/CT scanner, both attenuation and non-corrected datasets were reviewed. FINDINGS: DISTRIBUTION: The maximum perfused segment at stress is in the septal wall. PERFUSION STUDY: There is a small size moderate severity fixed defect directly at the apex with a normal wall motion. No reversible ischemic segments are identified. GATED STUDY: There is intact wall motion and thickening without hypokinetic or dyskinetic segments. CONCLUSION: 1. Small fixed defect at the apex. No reversible ischemic segments are identified RISK CATEGORY: Low (<1% Annual Mortality Rate) Sean Simmons MD on November 04, 2017 at 11:27 Board Certified Radiologist. This report was verified electronically.
[2017-11-04] MEDS ORDERED: FUROSEMIDE 20 MG TAB PO ONE (15:00)
[2017-11-04] MEDS ORDERED: POTASSIUM CHLORIDE 10 MEQ CONTROLLED RELEASE TAB PO ONE (15:00)
[2017-11-04] MEDS ORDERED: RESP: ALBUTEROL 2.5 MG/3 ML NEB (PRN) NEB (15:00)
--- NOTE | 2017-11-04 15:09 | HHI.GIFU ---
Subjective Remarks Pt continues to have SOB, still on 4 L NC. Reports she had her stress test done today. Also complaining of nausea and vomiting, unable to eat due to early satiety. Denies abdominal pain. Reports small BM. (Isabel Fitzgerald) Objective Vitals I&O Vital Signs Date Time Temp Pulse Resp B/P (MAP) Pulse Ox O2 Delivery O2 Flow Rate FiO2 11/04/17 12:06 98.5 91 20 161/72 (101) 98 11/04/17 12:06 84 11/04/17 12:00 98 Nasal Cannula 3.00 Humidified 11/04/17 11:45 99 Nasal Cannula 3.00 11/04/17 08:06 98.8 88 19 169/80 (109) 98 11/04/17 08:04 79 11/04/17 08:00 98 Nasal Cannula 4.00 Humidified 11/04/17 04:00 98.7 76 18 134/70 (91) 99 11/04/17 00:00 97.9 72 20 124/69 (87) 99 11/03/17 22:17 99 Nasal Cannula 3.00 11/03/17 21:07 Nasal Cannula 4.00 11/03/17 20:03 81 11/03/17 20:00 98.5 82 20 147/70 (95) 99 I/O 11/03/17 11/03/17 11/03/17 11/04/17 11/04/17 11/04/17 07:00 15:00 23:00 07:00 15:00 23:00 Intake Total 1007 ml 540 ml 50 ml Output Total 1350 ml 250 ml 900 ml Balance -343 ml 290 ml -850 ml Intake Oral 120 ml 540 ml IV Total 552 ml 50 ml Packed Cells 310 ml Blood Product IV Normal Saline Flush 25 ml Output Urine Total 1350 ml 250 ml 900 ml # Bowel Movements 0 0 2 Laboratory Laboratory Tests Test 11/04/17 07:43 White Blood Count 7.1 Red Blood Count 2.81 Hemoglobin 7.7 Hematocrit 23.7 Mean Corpuscular Volume 84.5 Mean Corpuscular Hemoglobin 27.5 Mean Corpuscular Hemoglobin Concent 32.5 Red Cell Distribution Width 15.4 Platelet Count 151 Mean Platelet Volume 7.3 Blood Urea Nitrogen 24 Creatinine 1.63 Random Glucose 133 Calcium Level 8.3 Sodium Level 134 Potassium Level 3.4 Chloride Level 101 Carbon Dioxide Level 24.3 Anion Gap 9 Estimat Glomerular Filtration Rate 38 Date/Time Source Procedure Growth Status 11/01/17 08:35 Blood Peripheral Aerobic Blood Culture - Preliminary NO GROWTH IN 3 DAYS Resulted 11/01/17 08:35 Blood Peripheral Anaerobic Blood Culture - Preliminary NO GROWTH IN 3 DAYS Resulted 11/01/17 18:09 Sputum Expectorated Sputum Gram Stain - Final Complete 11/01/17 18:09 Sputum Expectorated Sputum Sputum Culture - Final HEAVY GROWTH NORMAL RESPIRATORY ECTOR Complete 11/01/17 15:50 Urine Random Urine Urine Culture - Final Pseudomonas Aeruginosa Complete Imaging Last Impressions Myocardial Perfusion Scan Nuc Med 11/03/17 0000 Signed Impressions: Service Date/Time: October 12:01 - CONCLUSION: 1. Small fixed defect at the apex. No reversible ischemic segments are identified RISK CATEGORY: Low (<1%% Annual Mortality Rate) Sean Simmons MD Chest X-Ray 11/02/17 0000 Signed Impressions: Service Date/Time: Thursday, November 02, 2017 00:44 - CONCLUSION: 1. Mild patchy opacity at the right lung base. 2. The known small pleural effusions seen on the CT angiogram are not visualized. Eric Petty MD CT Angiography 11/01/17 0826 Signed Impressions: Service Date/Time: Wednesday, November 01, 2017 09:54 - CONCLUSION: 1. Moderate congestive failure with trace bilateral pleural effusions 2. Right hilar and mediastinal adenopathy, nonspecific but deserves followup. Gold Dorantes MD FACR Physical Exam HEENT:Normocephalic; atraumatic CHEST: Diffuse rales CARDIAC: RRR ABDOMEN: Soft, obese, nontender; no hepatosplenomegaly; bowel sounds active x 4. SKIN: Normal; no rash; no jaundice. BUSINESS INFORMATION CONSULTANT: No focal deficits; alert and oriented times three. (Isabel Fitzgerald DIRECTOR OF PLANT OPERATIONS) Assessment and Plan Plan ASSESSMENT - Anemia - Normocytic. Hemoccult (+) stool. hgb 7.8 on admission- currently 7.7 /23.7 S/P 1 U PRBC. History of anemia during previous admission for pyelonephritis. Last colonoscopy 2016 normal. Denies history of GIB. Would recommend EGD/colonoscopy. Per cardiology notes, they think the SOB might be related to respiratory cause. Diuresis difficult due to impaired kidney function. Stress test done today. Awaiting clearance from pulmonology and cardiology. Depending on pts status, will plan for EGD/colonoscopy Tuesday if able. - Early satiety- ?gastroparesis due to early satiety and nausea/vomiting after small meals. Risk factor includes DM. Will order GES to evaluate. - Sepsis 2/2 pyelonephritis, PNA, CHF, chest pain - per attending PLAN - Gastric emptying study - [facility] - EGD and colonoscopy when respiratory status improves- possibly Tuesday if able - Monitor HH - Transfuse as needed - Notify GI of active bleeding - Supportive care This patient has been seen and examined by myself and Dr. Almanza and this note is written on his behalf (Isabel Fitzgerald) Physician Comments Seen and examined with PAOLA, gi espinoza on hold pending improvement in pulmonary status. GES ordered for tuesday. Monitor labs (Marina Almanza MD) Isabel Fitzgerald Nov 04, 2017 15:09 Marina Almanza MD Nov 04, 2017 16:36
[2017-11-04] MEDS ORDERED: POLYETHYLENE GLYCOL 17 GM PKG PO ONE (15:15)
--- NOTE | 2017-11-04 16:04 | HHI.IDPN ---
Note Infectious Disease Note Patient feels same. Has cough and congestion. (+) SOB. Has nausea. Afebrile. Urine culture has pseudomonas. History of recent emphysematous pyelonephritis and right perinephric abscess. PAST MEDICAL HISTORY 1. Diabetes mellitus. 2. Hypertension. 3. Hyperlipidemia. 4. Pyelonephritis. 5. Perinephric abscess. ALLERGIES METFORMIN AND CLONIDINE. ANTIBIOTICS Zosyn. OBJECTIVE: Vital Signs Date Time Temp Pulse Resp B/P (MAP) Pulse Ox O2 Delivery O2 Flow Rate FiO2 11/04/17 15:33 98 Nasal Cannula 3.00 11/04/17 12:06 98.5 91 20 161/72 (101) 98 11/04/17 12:06 84 11/04/17 12:00 98 Nasal Cannula 3.00 Humidified 11/04/17 11:45 99 Nasal Cannula 3.00 11/04/17 08:06 98.8 88 19 169/80 (109) 98 11/04/17 08:04 79 11/04/17 08:00 98 Nasal Cannula 4.00 Humidified 11/04/17 04:00 98.7 76 18 134/70 (91) 99 11/04/17 00:00 97.9 72 20 124/69 (87) 99 11/03/17 22:17 99 Nasal Cannula 3.00 11/03/17 21:07 Nasal Cannula 4.00 11/03/17 20:03 81 11/03/17 20:00 98.5 82 20 147/70 (95) 99 Laboratory Tests Test 11/02/17 17:21 11/03/17 03:26 11/04/17 07:43 Hemoglobin 6.8 GM/DL 7.9 GM/DL 7.7 GM/DL Hematocrit 20.2 % 23.9 % 23.7 % White Blood Count 10.4 TH/MM3 7.1 TH/MM3 Red Blood Count 2.84 MIL/MM3 2.81 MIL/MM3 Mean Corpuscular Volume 84.0 FL 84.5 FL Mean Corpuscular Hemoglobin 27.9 PG 27.5 PG Mean Corpuscular Hemoglobin Concent 33.2 % 32.5 % Red Cell Distribution Width 15.4 % 15.4 % Platelet Count 175 TH/MM3 151 TH/MM3 Mean Platelet Volume 7.1 FL 7.3 FL Laboratory Tests Test 11/03/17 03:26 11/04/17 07:43 Blood Urea Nitrogen 25 MG/DL 24 MG/DL Creatinine 1.66 MG/DL 1.63 MG/DL Random Glucose 195 MG/DL 133 MG/DL Calcium Level 7.9 MG/DL 8.3 MG/DL Sodium Level 135 MEQ/L 134 MEQ/L Potassium Level 3.6 MEQ/L 3.4 MEQ/L Chloride Level 101 MEQ/L 101 MEQ/L Carbon Dioxide Level 23.2 MEQ/L 24.3 MEQ/L Anion Gap 11 MEQ/L 9 MEQ/L Estimat Glomerular Filtration Rate 38 ML/MIN 38 ML/MIN Microbiology Date/Time Source Procedure Growth Status 11/01/17 18:09 Sputum Expectorated Sputum Gram Stain - Final Complete 11/01/17 18:09 Sputum Expectorated Sputum Sputum Culture - Final HEAVY GROWTH NORMAL RESPIRATORY BJ Complete Microbiology Date/Time Source Procedure Growth Status 11/01/17 08:35 Blood Peripheral Aerobic Blood Culture - Preliminary NO GROWTH IN 2 DAYS Resulted 11/01/17 08:35 Blood Peripheral Anaerobic Blood Culture - Preliminary NO GROWTH IN 2 DAYS Resulted 11/01/17 08:30 Blood Peripheral Aerobic Blood Culture - Preliminary NO GROWTH IN 2 DAYS Resulted 11/01/17 08:30 Blood Peripheral Anaerobic Blood Culture - Preliminary NO GROWTH IN 2 DAYS Resulted 11/01/17 18:09 Sputum Expectorated Sputum Gram Stain - Final Complete 11/01/17 18:09 Sputum Expectorated Sputum Sputum Culture - Final HEAVY GROWTH NORMAL RESPIRATORY BJ Complete 11/01/17 15:50 Urine Random Urine Urine Culture - Preliminary Pseudomonas Species Resulted IMAGING: Myocardial Perfusion Scan Nuc Med 11/03/17 0000 Signed Impressions: Service Date/Time: October 12:01 - CONCLUSION: 1. Small fixed defect at the apex. No reversible ischemic segments are identified RISK CATEGORY: Low (<1%% Annual Mortality Rate) Sean Simmons MD Chest X-Ray 11/02/17 0000 Signed Impressions: Service Date/Time: Thursday, November 02, 2017 00:44 - CONCLUSION: 1. Mild patchy opacity at the right lung base. 2. The known small pleural effusions seen on the CT angiogram are not visualized. Eric Petty MD CT Angiography 11/01/17 0826 Signed Impressions: Service Date/Time: Wednesday, November 01, 2017 09:54 - CONCLUSION: 1. Moderate congestive failure with trace bilateral pleural effusions 2. Right hilar and mediastinal adenopathy, nonspecific but deserves followup. Gold Dorantes MD FACR PHYSICAL EXAMINATION GENERAL: No acute distress. HEENT: Head atraumatic. Extraocular movements grossly intact, pupils reactive to light. No icterus. Oropharynx moist mucosa without lesions. NECK: Supple without adenopathy. LUNGS: Coarse bilateral rhonchi. HEART: Regular S1-S2 without murmurs. ABDOMEN: Bowel sounds present, soft, no tenderness. EXTREMITIES: No clubbing, cyanosis or edema. SKIN: No rash. NEUROLOGIC: No gross focal findings. IMPRESSION 1. Sepsis probably secondary to urinary infection. 2. UTI - pseudomonas. 3. Shortness of breath and cough. Probable CHF. ? COPD. Sputum culture has normal bj. 4. History of perinephric abscess. RECOMMENDATIONS Continue Zosyn IV. Consider pulmonary consult. Nikita Griffin MD Nov 04, 2017 16:04
--- NOTE | 2017-11-04 21:59 | HHI.NPPN ---
Subjective History of Present Illness 67-year-old female known to me from before with past medical history of hypertension, diabetes mellitus, ischemic heart disease, congestive heart failure, came to the hospital with complaint of cough and shortness of breath. I was called to see the patient because of elevated BUN and creatinine. The patient has history of acute kidney injury and she was recently discharged. Additional Remarks Patient is alert, has nausea, abd. pain is better, no SOB, not in distress. Review of Systems General Constitutional: Fatigue Cardiovascular Cardiac: [place] Gastrointestinal Gastrointestinal: Abdominal Pain, Nausea & Vomiting Objective Data Data 11/04/17 11/05/17 19:00 07:00 Intake Total 430 ml Balance 430 ml Intake Oral 380 ml IV Total 50 ml # Voids 1 # Bowel Movements 2 Vital Signs Date Time Temp Pulse Resp B/P (MAP) Pulse Ox O2 Delivery O2 Flow Rate FiO2 11/04/17 16:27 78 11/04/17 16:06 98.6 81 20 146/63 (90) 99 11/04/17 16:00 99 Humidified 3.00 11/04/17 15:33 98 Nasal Cannula 3.00 11/04/17 12:06 98.5 91 20 161/72 (101) 98 11/04/17 12:06 84 11/04/17 12:00 98 Nasal Cannula 3.00 Humidified 11/04/17 11:45 99 Nasal Cannula 3.00 11/04/17 08:06 98.8 88 19 169/80 (109) 98 11/04/17 08:04 79 11/04/17 08:00 98 Nasal Cannula 4.00 Humidified 11/04/17 04:00 98.7 76 18 134/70 (91) 99 11/04/17 00:00 97.9 72 20 124/69 (87) 99 11/03/17 22:17 99 Nasal Cannula 3.00 -: 11/04/17 0743 11/04/17 0743 Physical Exam General Appearance: No Acute Distress, Comfortable Eyes Eye Exam: Pupils Equal Throat Throat Exam: Oral Mucosa [place] & Moist Neck Neck Exam: Neck Supple, Trachea Midline Pulmonary Resp Exam: Breath Sounds Equal, No Distress, Rhonchi, Decreased Bases Cardiology CV Exam: Regular, Normal Sinus Rhythm Gastrointestinal/Abdomen GI Exam: Soft, Non-Tender, Bowel Sounds Present Extremeties Extremities Exam: Trace Edema Neurologic Neuro Exam: Alert, Awake, Oriented Psychiatric Psych Exam: Appropriate Responses Assessment/Plan Assessment Summary: DELLA/Acute Renal Failure, Hypertension, CKD Stage III Problem List: (1) UTI (urinary tract infection) ICD Codes: N39.0 - Urinary tract infection, site not specified (2) Essential hypertension ICD Codes: I10 - Essential hypertension Status: Acute (3) Shortness of breath ICD Codes: R06.02 - Shortness of breath Status: Acute (4) Diabetes mellitus ICD Codes: E11.9 - Type 2 diabetes mellitus without complications Status: Chronic (5) Anemia ICD Codes: D64.9 - Anemia, unspecified Status: Acute (6) Hypertension Status: Chronic (7) DELLA (acute kidney injury) ICD Codes: N17.9 - Acute kidney failure, unspecified Status: Acute Plan Patient most likely has ATN causing DELLA. Has UTI, on Zosyn, ID following. Hgb is low, transfused. BP is stable. Continue antibiotics. GI is following the patient. Creatinine is almost same, 1.6, K is low and replaced. For Gastric emptying study. Pita Huitron MD Nov 04, 2017 21:59
[2017-11-05] VITALS (14 sets, daily range): BP systolic 133–160; BP diastolic 62–74; PULSE 75–84; RESP 18–21; TEMP 97.7–99.4; O2SAT 97–100
[2017-11-05] MEDS: HEPARIN SODIUM - SQ 10,000 UNITS/ML VIAL SQ SCH ×2 (00:35→13:20)
[2017-11-05] MEDS: RESP: ALBUTEROL 2.5 MG/IPRATROPIUM 0.5 MG NEB (SCH) NEB ×2 (04:51→10:19)
[2017-11-05] MEDS: PIPERACIL-TAZO 3.375 GM PREMIX 50 ML IV SCH ×4 (05:09→21:09)
[2017-11-05 06:45] LABS: HEMATOCRIT 22.4 % (35.0-46.0); MEAN CELL VOLUME 83.3 FL (80.0-100.0); MEAN CORPUSCULAR HEMOGLOBIN 27.7 PG (27.0-34.0); MEAN CORPUSCULAR HGB CONC 33.2 % (32.0-36.0); PLATELET COUNT 162 TH/MM3 (150-450); RED BLOOD COUNT 2.68 MIL/MM3 (4.00-5.30); RED CELL DISTRIBUTION WIDTH 15.4 % (11.6-17.2); REVIEW FLAG FINAL; WHITE BLOOD COUNT 7.7 TH/MM3 (4.0-11.0)
[2017-11-05 07:03] LABS: BICARBONATE 24.4 MEQ/L (21.0-32.0); POTASSIUM 3.6 MEQ/L (3.5-5.1)
[2017-11-05] MEDS: INSULIN ASPART SUPPLEMENTAL SCALE SQ SCH ×4 (07:56→21:00)
--- NOTE | 2017-11-05 08:59 | PD.CARD.PN ---
Subjective Subjective Remarks Chest congestion, productive cough, and shortness of breath mostly unchanged. Had some right calf tightness overnight. Objective Medications Current Medications Medications (Trade) Dose Ordered Sig/Alisha Route Start Time Stop Time Status Last Admin (NS Flush) 2 ml UNSCH PRN IV FLUSH 11/01/17 11:45 (NS Flush) 2 ml BID IV FLUSH 11/01/17 11:45 11/04/17 21:51 (Heparin Inj) 5,000 units Q12H SQ 11/01/17 12:00 11/05/17 00:35 (Narcan Inj) 0.4 mg UNSCH PRN IV PUSH 11/01/17 11:45 (Bridgette-Colace) 1 tab BID PO 11/01/17 21:00 11/04/17 21:17 (NovoLOG SUPPLEMENTAL SCALE) 1 ACHS SLIDING SCALE SQ 11/01/17 12:00 11/04/17 17:01 (Norvasc) 10 mg DAILY PO 11/01/17 12:30 11/04/17 11:26 (Ecotrin Ec) 325 mg DAILY PO 11/01/17 12:30 11/04/17 11:25 (Ferrous Sulfate) 325 mg BID PO 11/01/17 12:30 11/04/17 21:51 (Lopid) 300 mg DAILY PO 11/01/17 12:30 11/04/17 11:26 (Trandate) 100 mg Q12HR PO 11/01/17 12:30 11/04/17 21:17 (Roxicodone) 5 mg Q6H PRN PO 11/01/17 11:45 11/04/17 21:17 (Pravachol) 10 mg DAILY PO 11/02/17 09:00 11/04/17 11:26 (Pill Splitter) 1 ea UNSCH PRN OTHER 11/01/17 12:45 (Zofran Inj) 4 mg Q6H PRN IVP 11/01/17 14:15 11/04/17 11:20 (Morphine Inj) 4 mg Q3H PRN IV PUSH 11/01/17 16:15 11/03/17 17:52 (Tylenol) 650 mg Q6H PRN PO 11/01/17 16:45 11/01/17 17:10 (Milk Of Magnesia Liq) 30 ml Q12H PRN PO 11/01/17 16:45 (Senokot) 17.2 mg Q12H PRN PO 11/01/17 16:45 11/01/17 17:09 (Lactulose Liq) 30 ml DAILY PRN PO 11/01/17 16:45 (Duoneb Neb) 1 ampule Q6HR NEB NEB 11/02/17 12:00 11/05/17 11:59 11/05/17 04:51 Piperacillin Sod/ Tazobactam Sod 50 ml @ 100 mls/hr Q6H IV 11/03/17 16:00 11/05/17 05:09 (Albuterol Neb) 2.5 mg Q2HR NEB PRN NEB 11/04/17 15:00 (Compazine) 10 mg Q6H PRN PO 11/04/17 15:00 Vital Signs / I&O Vital Signs Date Time Temp Pulse Resp B/P (MAP) Pulse Ox O2 Delivery O2 Flow Rate FiO2 11/05/17 08:07 98.2 75 21 146/66 (92) 100 11/05/17 04:51 98 Nasal Cannula 4.00 11/05/17 04:00 99.4 84 20 158/70 (99) 98 11/05/17 00:00 99.0 81 20 156/72 (100) 99 11/04/17 20:00 96 Humidified 3.00 11/04/17 20:00 98.5 86 20 114/59 (77) 96 11/04/17 16:27 78 11/04/17 16:06 98.6 81 20 146/63 (90) 99 11/04/17 16:00 99 Humidified 3.00 11/04/17 15:33 98 Nasal Cannula 3.00 11/04/17 12:06 98.5 91 20 161/72 (101) 98 11/04/17 12:06 84 11/04/17 12:00 98 Nasal Cannula 3.00 Humidified 11/04/17 11:45 99 Nasal Cannula 3.00 I/O 11/04/17 11/04/17 11/04/17 11/05/17 11/05/17 11/05/17 07:00 15:00 23:00 07:00 15:00 23:00 Intake Total 50 ml 430 ml 480 ml Output Total 900 ml 1350 ml Balance -850 ml 430 ml -870 ml Intake Oral 380 ml 480 ml IV Total 50 ml 50 ml Output Urine Total 900 ml 1350 ml # Voids 1 # Bowel Movements 2 2 1 Physical Exam GENERAL: Well-developed well-nourished. In no acute distress. NECK: No carotid bruits. No JVD. CARDIOVASCULAR: Regular rate and rhythm. No murmur appreciated. RESPIRATORY: No accessory muscle use. Diffuse coarse wheezing and rhonchi in all lung [place].. MUSCULOSKELETAL: No clubbing or cyanosis. No edema. No calf TTP and Homans sign negative bilaterally. NEUROLOGICAL: Awake and alert. Normal speech. Laboratory Laboratory Tests Test 11/05/17 05:35 White Blood Count 7.7 TH/MM3 Red Blood Count 2.68 MIL/MM3 Hemoglobin 7.4 GM/DL Hematocrit 22.4 % Mean Corpuscular Volume 83.3 FL Mean Corpuscular Hemoglobin 27.7 PG Mean Corpuscular Hemoglobin Concent 33.2 % Red Cell Distribution Width 15.4 % Platelet Count 162 TH/MM3 Mean Platelet Volume 7.6 FL Blood Urea Nitrogen 21 MG/DL Creatinine 1.58 MG/DL Random Glucose 123 MG/DL Calcium Level 8.1 MG/DL Sodium Level 135 MEQ/L Potassium Level 3.6 MEQ/L Chloride Level 101 MEQ/L Carbon Dioxide Level 24.4 MEQ/L Anion Gap 10 MEQ/L Estimat Glomerular Filtration Rate 40 ML/MIN Imaging Last Impressions Myocardial Perfusion Scan [facility] 11/03/17 0000 Signed Impressions: Service Date/Time: October 12:01 - CONCLUSION: 1. Small fixed defect at the apex. No reversible ischemic segments are identified RISK CATEGORY: Low (<1%% Annual Mortality Rate) Sean Simmons MD Chest X-Ray 11/02/17 0000 Signed Impressions: Service Date/Time: Thursday, November 02, 2017 00:44 - CONCLUSION: 1. Mild patchy opacity at the right lung base. 2. The known small pleural effusions seen on the CT angiogram are not visualized. Eric Petty MD CT Angiography 11/01/17 0826 Signed Impressions: Service Date/Time: Wednesday, November 01, 2017 09:54 - CONCLUSION: 1. Moderate congestive failure with trace bilateral pleural effusions 2. Right hilar and mediastinal adenopathy, nonspecific but deserves followup. Gold Dorantes MD FACR Assessment and Plan Assessment and Plan 67-year-old female with a past medical history of HTN, DM, pyelonephritis who presented with shortness of breath and chest congestion. Shortness of breath/chest congestion: Seems more pulmonary with wheezing and productive cough. Chest imaging showed mild patchy opacity in the right lung base and known small pleural effusions. Recommend pulmonary evaluation and treatment for underlying pneumonia/reactive airway disease. Caution with aggressive diuresis at this time with kidney injury and previous normal systolic function on echocardiograms. History of CVA/PFO: At some point in the future could consider endovascular closure device, but contraindicated at this time with ongoing anemia and infection. Elevated troponin: Likely demand mediated secondary to anemia and renal injury. No specific cardiac complaints. Checked Lexiscan which showed small fixed defect at the apex and no reversible ischemic segments identified. Anemia: Possibly of chronic disease. Status post transfusion 11/03 with improvement. GI following. No further cardiac intervention at this time and cardiology will sign off. Please call with any questions. Jack Cardenas Nov 05, 2017 08:59
[2017-11-05] MEDS: PRAVASTATIN SOD 10 MG TAB PO SCH (09:21)
[2017-11-05] MEDS: ASPIRIN EC 325 MG TABEC PO SCH (09:21)
[2017-11-05] MEDS: LABETALOL HCL 100 MG TAB PO SCH ×2 (09:21→21:09)
[2017-11-05] MEDS: SODIUM CHLORIDE 0.9% FLUSH 10 ML FLUSH IV FLUSH SCH ×2 (09:21→21:08)
[2017-11-05] MEDS: DOCUSATE SODIUM 50 MG/SENNA 8.6 MG TAB PO SCH ×2 (09:21→21:09)
[2017-11-05] MEDS: FERROUS SULFATE 325 MG (65 MG ELEMENTAL IRON) TAB PO SCH ×2 (09:21→21:08)
[2017-11-05] MEDS: GEMFIBROZIL 600 MG TAB PO SCH (09:22)
--- NOTE | 2017-11-05 09:25 | HHI.FPPN ---
Subjective Remarks No acute events overnight. Afebrile, vitals stable. Patient seen and examined this AM. Patient sleeping comfortably in bed, nonlabored breathing. Patient denies fevers/chills, CP or pressure, SOB. She states she had been experiencing some nausea following her lexiscan yesterday however yesterday evening and night her nausea lessened. Denies episodes of vomiting. Tolerating diet. Does endorse early satiety. Denies dysuria or hematuria. (Ephraim Marlow MD R2) Objective Vitals Vital Signs Date Time Temp Pulse Resp B/P (MAP) Pulse Ox O2 Delivery O2 Flow Rate FiO2 11/05/17 08:07 98.2 75 21 146/66 (92) 100 11/05/17 08:01 77 11/05/17 08:00 100 Nasal Cannula 4.00 Humidified 11/05/17 04:51 98 Nasal Cannula 4.00 11/05/17 04:00 99.4 84 20 158/70 (99) 98 11/05/17 00:00 99.0 81 20 156/72 (100) 99 11/04/17 20:00 96 Humidified 3.00 11/04/17 20:00 98.5 86 20 114/59 (77) 96 11/04/17 16:27 78 11/04/17 16:06 98.6 81 20 146/63 (90) 99 11/04/17 16:00 99 Humidified 3.00 11/04/17 15:33 98 Nasal Cannula 3.00 11/04/17 12:06 98.5 91 20 161/72 (101) 98 11/04/17 12:06 84 11/04/17 12:00 98 Nasal Cannula 3.00 Humidified 11/04/17 11:45 99 Nasal Cannula 3.00 I/O 11/04/17 11/04/17 11/04/17 11/05/17 11/05/17 11/05/17 07:00 15:00 23:00 07:00 15:00 23:00 Intake Total 50 ml 430 ml 480 ml Output Total 900 ml 1350 ml Balance -850 ml 430 ml -870 ml Intake Oral 380 ml 480 ml IV Total 50 ml 50 ml Output Urine Total 900 ml 1350 ml # Voids 1 # Bowel Movements 2 2 1 (Ephraim Marlow MD R2) Result Diagram: 11/05/1735 11/05/1735 Objective Remarks GENERAL: lying in bed, pleasant SKIN: No rashes, ecchymoses or lesions. Warm and dry. HEAD: NC/AT EYES: EOMI. No conjunctival injection or drainage. ENT: Mucous membranes moist, OP without erythema, tonsillar swelling, or exudate. NECK: Supple, no lymphadenopathy. No JVD. CARDIOVASCULAR: RRR, no m/r/g RESPIRATORY: Moderate wheezing throughout, faint bibasilar crackles still present GASTROINTESTINAL: Abdomen soft, non-distended, non-tender. No hepato- splenomegaly or palpable masses. MUSCULOSKELETAL: Trace pre-tibial lower extremity edema NEUROLOGICAL: Awake and alert. Oriented x3. (Ephraim Marlow MD R2) A/P Assessment and Plan 67 yr old F w/ PMH of HTN, T2DM, and recent hospitalization from emphysematous pyelonephritis (E coli grown in urine culture) (s/p nephrostomy placement 09/27- 10/05), presents with SOB and CP. Admitted for ACS r/o, CHF exacerbation, sepsis most likely secondary to pyelonephritis vs pneumonia. Discharge Planning Unclear timetable of this time Anticipate home health care for physical therapy (Ephraim Marlow MD R2) Attending Attestation Patient seen and examined. Case reviewed and discussed with the resident team. Agree with plan of care as discussed with me and documented in the resident note. (Margret Desai MD) Problem List: (1) Sepsis ICD Codes: A41.9 - Sepsis, unspecified organism Status: Resolved Plan: Patient meeting sepsis criteria on admission Likely source of infection is urinary vs pneumonia Lactic acid 1.6 UA revealed moderate leukocyte esterase, bacteria, RBC and WBC Blood cultures no growth after 3 days ID consulted, appreciate recs Urine culture growing Pseudomonas species Sputum gram stain and culture showed normal bj Discontinued Linezolid 600mg IV q12h (10/15-11/03) and Levaquin 600mg PO q48h (-11/03) Started Zosyn 3.375 gm IV q6h (11/03) (2) Pyelonephritis ICD Codes: N12 - Pyelonephritis Status: Acute Plan: Plan as above Monitor renal function, I/Os (3) Congestive heart failure ICD Codes: I50.9 - Heart failure, unspecified Status: Acute Plan: CXR no acute disease CTA revealed moderate congestive failure with trace b/l pleural effusions. Right hilar and mediastinal adenopathy, nonspecific but deserves followup BNP 594 Last echo: TERRELL from 09/21 showing normal left ventricular systolic function with an estimated EF of 60-65% Possibly diastolic component contributing to failure Monitor I/Os Cautious diuresis given DELLA and patient developing DELLA during her recent hospitalization when being diuresed (4) Chest pain ICD Codes: R07.9 - Chest pain, unspecified Status: Resolved Plan: Pleuritic chest pain. ACS r/o Troponin 0.30, 0.50, 0.59 EKG sinus tachycardia Cardiology consulted, recs appreciated - History of CVA/PRO: consider endovascular closure device in the future, contraindicated at this time with ongoing anemia and infection - Elevated troponins likely demand mediated secondary to anemia and renal injury (5) Anemia ICD Codes: D64.9 - Anemia, unspecified Status: Acute Plan: s/p 1 unit of RBCs transfusion 11/02 Continue to monitor H/H Hemoccult positive on 11/02. GI consulted, recs appreciated EGD and colonoscopy when respiratory status improved and pt able to tolerate bowel prep - Possibly for Wednesday 11/07 Consider transfusion to maintain Hgb > 8.0 Cautious with fluid overload (6) Diabetes mellitus ICD Codes: E11.9 - Type 2 diabetes mellitus without complications Status: Chronic Plan: -Held home insulin -Low dose ISS (7) Hypertension Status: Chronic Plan: -Continue home amlodipine and labetalol (8) Dyslipidemia ICD Codes: E78.5 - Dyslipidemia Status: Chronic Plan: - Continue home pravastatin and gemfibrozil (9) Nutrition, metabolism, and development symptoms ICD Codes: R63.8 - Other symptoms and signs concerning food and fluid intake Plan: Diet: 1800 ADA Electrolytes: monitor and replete as needed Fluids: None DVT ppx: heparin 5000 units sq 12h (Ephraim Marlow MD R2) Problem Qualifiers (1) Sepsis: Qualified Codes: A41.9 - Sepsis, unspecified organism (2) Congestive heart failure: Qualified Codes: I50.9 - Heart failure, unspecified Ephraim Marlow MD R2 Nov 05, 2017 09:25 Margret Desai MD Nov 05, 2017 11:33
[2017-11-05] MEDS: ONDANSETRON HCL 4 MG/2 ML VIAL IVP PRN ×2 (10:06→21:09)
[2017-11-05] MEDS ORDERED: SODIUM CHLOR 0.9% 250 ML INJ 250 ML IV ONE (11:15)
[2017-11-05] MEDS ORDERED: FUROSEMIDE 20 MG/2 ML VIAL IV PUSH ONE ×2 (11:15→20:45)
--- NOTE | 2017-11-05 12:19 | HHI.GIFU ---
Subjective Remarks Sitting up in bed, says she feels better. Ate good breakfast. 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 (Beth Khalil) Objective Vitals I&O Vital Signs Date Time Temp Pulse Resp B/P (MAP) Pulse Ox O2 Delivery O2 Flow Rate FiO2 11/05/17 12:07 97.7 80 20 159/74 (102) 98 11/05/17 10:22 98 Nasal Cannula 3.00 11/05/17 08:07 98.2 75 21 146/66 (92) 100 11/05/17 08:01 77 11/05/17 08:00 100 Nasal Cannula 4.00 Humidified 11/05/17 04:51 98 Nasal Cannula 4.00 11/05/17 04:00 99.4 84 20 158/70 (99) 98 11/05/17 00:00 99.0 81 20 156/72 (100) 99 11/04/17 20:00 96 Humidified 3.00 11/04/17 20:00 98.5 86 20 114/59 (77) 96 11/04/17 16:27 78 11/04/17 16:06 98.6 81 20 146/63 (90) 99 11/04/17 16:00 99 Humidified 3.00 11/04/17 15:33 98 Nasal Cannula 3.00 I/O 11/04/17 11/04/17 11/04/17 11/05/17 11/05/17 11/05/17 07:00 15:00 23:00 07:00 15:00 23:00 Intake Total 50 ml 430 ml 480 ml Output Total 900 ml 1350 ml Balance -850 ml 430 ml -870 ml Intake Oral 380 ml 480 ml IV Total 50 ml 50 ml Output Urine Total 900 ml 1350 ml # Voids 1 # Bowel Movements 2 2 1 1 Laboratory Laboratory Tests Test 11/05/17 05:35 White Blood Count 7.7 Red Blood Count 2.68 Hemoglobin 7.4 Hematocrit 22.4 Mean Corpuscular Volume 83.3 Mean Corpuscular Hemoglobin 27.7 Mean Corpuscular Hemoglobin Concent 33.2 Red Cell Distribution Width 15.4 Platelet Count 162 Mean Platelet Volume 7.6 Blood Urea Nitrogen 21 Creatinine 1.58 Random Glucose 123 Calcium Level 8.1 Sodium Level 135 Potassium Level 3.6 Chloride Level 101 Carbon Dioxide Level 24.4 Anion Gap 10 Estimat Glomerular Filtration Rate 40 Date/Time Source Procedure Growth Status 11/01/17 08:35 Blood Peripheral Aerobic Blood Culture - Preliminary NO GROWTH IN 4 DAYS Resulted 11/01/17 08:35 Blood Peripheral Anaerobic Blood Culture - Preliminary NO GROWTH IN 4 DAYS Resulted 11/01/17 18:09 Sputum Expectorated Sputum Gram Stain - Final Complete 11/01/17 18:09 Sputum Expectorated Sputum Sputum Culture - Final HEAVY GROWTH NORMAL RESPIRATORY ECTOR Complete 11/01/17 15:50 Urine Random Urine Urine Culture - Final Pseudomonas Aeruginosa Complete Physical Exam HEENT:Normocephalic; atraumatic CHEST: wheezes, rales CARDIAC: RRR ABDOMEN: Soft, obese, nontender; no hepatosplenomegaly; bowel sounds active x 4. SKIN: Normal; no rash; no jaundice. 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 (Beth Khalil) Assessment and Plan Plan ASSESSMENT - Anemia - Normocytic. Hemoccult (+) stool. h History of anemia during previous admission for pyelonephritis. Last colonoscopy 2015 normal. Denies history of GIB. cardiology signed off, feel respiratory difficulties pulmonary origin HH subtly trending down - Early satiety- ?gastroparesis due to early satiety and nausea/vomiting after small meals. Risk factor includes DM. tolerated diet today, ate big breakfast - Sepsis 2/2 pyelonephritis, PNA, CHF, chest pain - per attending PLAN - Gastric emptying study - MEREDITH - EGD and colonoscopy when respiratory status improves- early next week - Monitor HH - Transfuse as needed - Notify GI of active bleeding - Supportive care This patient has been seen and examined by myself and Dr. Sanz and this note is written on his behalf (Beth Khalil) Plan Patient was seen and examined, agree with above Notes, gastric emptying study Tuesday,: EGD when stable (Hari Sanz MD) Beth Khalil Nov 05, 2017 12:19 Hari Sanz MD Nov 05, 2017 18:43
--- NOTE | 2017-11-05 16:45 | HHI.NPPN ---
Subjective History of Present Illness 67-year-old female known to me from before with past medical history of hypertension, diabetes mellitus, ischemic heart disease, congestive heart failure, came to the hospital with complaint of cough and shortness of breath. I was called to see the patient because of elevated BUN and creatinine. The patient has history of acute kidney injury and she was recently discharged. Additional Remarks Patient is alert, no SOB, not in distress. Review of Systems General Constitutional: Fatigue Cardiovascular Cardiac: OSBORNE Gastrointestinal Gastrointestinal: Abdominal Pain, Nausea & Vomiting Objective Data Data 11/05/17 11/06/17 18:59 06:59 # Bowel Movements 1 Vital Signs Date Time Temp Pulse Resp B/P (MAP) Pulse Ox O2 Delivery O2 Flow Rate FiO2 11/05/17 16:06 98.0 83 20 133/62 (85) 97 11/05/17 16:00 97 Nasal Cannula 3.00 Humidified 11/05/17 12:17 76 11/05/17 12:07 97.7 80 20 159/74 (102) 98 11/05/17 12:00 98 Nasal Cannula 3.00 Humidified 11/05/17 10:22 98 Nasal Cannula 3.00 11/05/17 08:07 98.2 75 21 146/66 (92) 100 11/05/17 08:01 77 11/05/17 08:00 100 Nasal Cannula 4.00 Humidified 11/05/17 04:51 98 Nasal Cannula 4.00 11/05/17 04:00 99.4 84 20 158/70 (99) 98 11/05/17 00:00 99.0 81 20 156/72 (100) 99 11/04/17 20:00 96 Humidified 3.00 11/04/17 20:00 98.5 86 20 114/59 (77) 96 -: 11/05/17 0535 11/05/17 0535 Physical Exam General Appearance: No Acute Distress, Comfortable Eyes Eye Exam: Pupils Equal Throat Throat Exam: Oral Mucosa [place] & Moist Neck Neck Exam: Neck Supple, Trachea Midline Pulmonary Resp Exam: Breath Sounds Equal, No Distress, Rhonchi, Decreased Bases Cardiology CV Exam: Regular, Normal Sinus Rhythm Gastrointestinal/Abdomen GI Exam: Soft, Non-Tender, Bowel Sounds Present Extremeties Extremities Exam: Trace Edema Neurologic Neuro Exam: Alert, Awake, Oriented Psychiatric Psych Exam: Appropriate Responses Assessment/Plan Assessment Summary: DELLA/Acute Renal Failure, Hypertension, CKD Stage III Problem List: (1) UTI (urinary tract infection) ICD Codes: N39.0 - Urinary tract infection, site not specified (2) Essential hypertension ICD Codes: I10 - Essential hypertension Status: Acute (3) Shortness of breath ICD Codes: R06.02 - Shortness of breath Status: Acute (4) Diabetes mellitus ICD Codes: E11.9 - Type 2 diabetes mellitus without complications Status: Chronic (5) Anemia ICD Codes: D64.9 - Anemia, unspecified Status: Acute (6) Hypertension Status: Chronic (7) DELLA (acute kidney injury) ICD Codes: N17.9 - Acute kidney failure, unspecified Status: Acute Plan Patient most likely has ATN causing DELLA. CR Declined 1.5 Hgb is low, transfused. BP is stable. Continue antibiotics. GI is following the patient. gastric emptying study Alejandra Cannon MD Nov 05, 2017 16:45
[2017-11-06] VITALS (11 sets, daily range): BP systolic 145–172; BP diastolic 66–79; PULSE 67–80; RESP 16–18; TEMP 97.7–99.5; O2SAT 97–100
[2017-11-06] MEDS: HEPARIN SODIUM - SQ 10,000 UNITS/ML VIAL SQ SCH ×2 (01:14→13:46)
[2017-11-06] MEDS: PIPERACIL-TAZO 3.375 GM PREMIX 50 ML IV SCH ×4 (04:29→22:00)
[2017-11-06 08:02] LABS: HEMATOCRIT 26.4 % (35.0-46.0); MEAN CELL VOLUME 83.2 FL (80.0-100.0); MEAN CORPUSCULAR HEMOGLOBIN 27.4 PG (27.0-34.0); MEAN CORPUSCULAR HGB CONC 32.9 % (32.0-36.0); PLATELET COUNT 153 TH/MM3 (150-450); RED BLOOD COUNT 3.17 MIL/MM3 (4.00-5.30); RED CELL DISTRIBUTION WIDTH 15.9 % (11.6-17.2); REVIEW FLAG FINAL; WHITE BLOOD COUNT 7.6 TH/MM3 (4.0-11.0)
[2017-11-06 08:17] LABS: BICARBONATE 25.4 MEQ/L (21.0-32.0); POTASSIUM 3.6 MEQ/L (3.5-5.1)
--- NOTE | 2017-11-06 09:10 | HHI.FPPN ---
Subjective Remarks No acute events overnight. Afebrile, BPs ranging 130s-170s/60s-70s over past 24 hours. Patient seen and examined this AM. Sitting in chair, NAD. Patient states overall she is feeling better. Denies chest pain or pressure, worsening SOB. Denies nausea. Tolerating diet this morning. Objective Vitals Vital Signs Date Time Temp Pulse Resp B/P (MAP) Pulse Ox O2 Delivery O2 Flow Rate FiO2 11/06/17 04:00 69 11/06/17 04:00 Nasal Cannula 3.00 Humidified 11/06/17 04:00 97.7 67 17 159/69 (99) 97 11/06/17 00:00 68 11/06/17 00:00 98.6 80 18 145/66 (92) 97 11/06/17 00:00 Nasal Cannula 3.00 Humidified 11/05/17 21:00 Nasal Cannula 3.00 Humidified 11/05/17 20:00 83 11/05/17 20:00 98.6 81 18 157/67 (97) 97 11/05/17 18:38 97.8 83 20 160/70 98 11/05/17 18:07 98.3 80 20 144/64 98 11/05/17 17:42 98.0 80 20 141/63 97 11/05/17 16:06 98.0 83 20 133/62 (85) 97 11/05/17 16:00 97 Nasal Cannula 3.00 Humidified 11/05/17 16:00 81 11/05/17 12:17 76 11/05/17 12:07 97.7 80 20 159/74 (102) 98 11/05/17 12:00 98 Nasal Cannula 3.00 Humidified 11/05/17 10:22 98 Nasal Cannula 3.00 I/O 11/05/17 11/05/17 11/05/17 11/06/17 11/06/17 11/06/17 07:00 15:00 23:00 07:00 15:00 23:00 Intake Total 480 ml 925 ml 200 ml Output Total 1350 ml 1200 ml Balance -870 ml 925 ml -1000 ml Intake Oral 480 ml 480 ml 200 ml Packed Cells 400 ml Blood Product IV Normal Saline Flush 45 ml Output Urine Total 1350 ml 1200 ml # Voids 3 # Bowel Movements 1 1 2 1 Result Diagram: 11/06/17 0744 11/06/17 0744 Objective Remarks GENERAL: lying in bed, pleasant SKIN: No rashes, ecchymoses or lesions. Warm and dry. HEAD: NC/AT EYES: EOMI. No conjunctival injection or drainage. ENT: Mucous membranes moist, OP without erythema, tonsillar swelling, or exudate. NECK: Supple, no lymphadenopathy. No JVD. CARDIOVASCULAR: RRR, no m/r/g RESPIRATORY: Moderate wheezing throughout, faint bibasilar crackles GASTROINTESTINAL: Abdomen soft, non-distended, non-tender. No hepato- splenomegaly or palpable masses. MUSCULOSKELETAL: Trace pre-tibial lower extremity edema NEUROLOGICAL: Awake and alert. Oriented x3. 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 Admitted for ACS r/o, CHF exacerbation, sepsis most likely secondary to UTI vs pyelonephritis. Discharge Planning Unclear timetable of this time Anticipate discharge to SNF vs home health care for physical therapy Problem List: (1) Sepsis ICD Codes: A41.9 - Sepsis, unspecified organism Status: Resolved Plan: Patient meeting sepsis criteria on admission Likely source of infection being urinary Lactic acid 1.6 on admission UA revealed moderate leukocyte esterase, bacteria, RBC and WBC Blood cultures no growth final ID consulted, appreciate recs Urine culture growing Pseudomonas species, sensitive to Zosyn Sputum gram stain and culture showed normal bj Discontinued Linezolid 600mg IV q12h (10/15-11/03) and Levaquin 600mg PO q48h (-11/03) Started Zosyn 3.375 gm IV q6h (11/03) (2) Pyelonephritis ICD Codes: N12 - Pyelonephritis Status: Acute Plan: Plan as above Continue Zosyn as above Monitor renal function, I/Os (3) Congestive heart failure ICD Codes: I50.9 - Heart failure, unspecified Status: Acute Plan: CXR no acute disease CTA revealed moderate congestive failure with trace b/l pleural effusions. Right hilar and mediastinal adenopathy, nonspecific but deserves followup BNP 594 Last echo: TERRELL from 09/21 showing normal left ventricular systolic function with an estimated EF of 60-65% Possibly diastolic component contributing to failure vs [id number] shunt given patient having PFO Monitor I/Os Cautious diuresis given DELLA and patient developing DELLA during her recent hospitalization when being diuresed (4) Chest pain ICD Codes: R07.9 - Chest pain, unspecified Status: Resolved Plan: Pleuritic chest pain. ACS r/o Troponin 0.30, 0.50, 0.59 EKG sinus tachycardia Cardiology consulted, recs appreciated - History of CVA/PRO: consider endovascular closure device in the future, contraindicated at this time with ongoing anemia and infection - Elevated troponins likely demand mediated secondary to anemia and renal injury Nuclear stress testing demonstrating small fixed defect at the apex, no reversible ischemic segment identified (5) Anemia ICD Codes: D64.9 - Anemia, unspecified Status: Acute Plan: s/p 1 unit of RBCs transfusion 11/02, additional 1 unit on 11/05 Continue to monitor H/H, uptrending appropriately s/p 1 unit PRBCs 11/05 Hemoccult positive on 11/02 GI consulted EGD and colonoscopy when respiratory status improved and pt able to tolerate bowel prep - Possibly early this week Consider transfusion to maintain Hgb > 8.0 Cautious with fluid overload Continue ferrous sulfate 325 mg bid Continue protonix 40 mg po daily (6) Diabetes mellitus ICD Codes: E11.9 - Type 2 diabetes mellitus without complications Status: Chronic Plan: -Held home insulin -Low dose ISS -BSBG ranging 128-158 over past 24 hours -Continue accuchecks ACHS (7) Hypertension Status: Chronic Plan: -Continue home amlodipine and labetalol (8) Dyslipidemia ICD Codes: E78.5 - Dyslipidemia Status: Chronic Plan: - Continue home pravastatin and gemfibrozil (9) Nutrition, metabolism, and development symptoms ICD Codes: R63.8 - Other symptoms and signs concerning food and fluid intake Plan: Diet: 1800 ADA Electrolytes: monitor and replete as needed Fluids: None DVT ppx: heparin 5000 units sq q12h GI ppx: Protonix 40 mg po daily Problem Qualifiers (1) Sepsis: Qualified Codes: A41.9 - Sepsis, unspecified organism (2) Congestive heart failure: Qualified Codes: I50.9 - Heart failure, unspecified Ephraim Marlow MD R2 Nov 06, 2017 09:10
[2017-11-06] MEDS: FERROUS SULFATE 325 MG (65 MG ELEMENTAL IRON) TAB PO SCH ×2 (09:16→20:38)
[2017-11-06] MEDS: ASPIRIN EC 325 MG TABEC PO SCH (09:16)
[2017-11-06] MEDS: LABETALOL HCL 100 MG TAB PO SCH ×2 (09:16→20:38)
[2017-11-06] MEDS: GEMFIBROZIL 600 MG TAB PO SCH (09:16)
[2017-11-06] MEDS: PRAVASTATIN SOD 10 MG TAB PO SCH (09:16)
[2017-11-06] MEDS: DOCUSATE SODIUM 50 MG/SENNA 8.6 MG TAB PO SCH ×2 (09:16→20:40)
[2017-11-06] MEDS: INSULIN ASPART SUPPLEMENTAL SCALE SQ SCH ×4 (09:19→20:40)
[2017-11-06] MEDS: SODIUM CHLORIDE 0.9% FLUSH 10 ML FLUSH IV FLUSH SCH ×2 (09:19→20:40)
--- NOTE | 2017-11-06 13:59 | HHI.NPPN ---
Subjective History of Present Illness 67-year-old female known to me from before with past medical history of hypertension, diabetes mellitus, ischemic heart disease, congestive heart failure, came to the hospital with complaint of cough and shortness of breath. I was called to see the patient because of elevated BUN and creatinine. The patient has history of acute kidney injury and she was recently discharged. Additional Remarks Patient is alert, no SOB, not in distress. Review of Systems General Constitutional: Fatigue Cardiovascular Cardiac: [place]NE Gastrointestinal Gastrointestinal: Abdominal Pain, Nausea & Vomiting Objective Data Data Vital Signs Date Time Temp Pulse Resp B/P (MAP) Pulse Ox O2 Delivery O2 Flow Rate FiO2 11/06/17 12:07 98.7 74 18 167/76 (106) 100 11/06/17 10:04 99 Nasal Cannula 2.00 11/06/17 08:07 98.7 72 18 172/79 (110) 99 11/06/17 08:00 68 11/06/17 04:00 69 11/06/17 04:00 Nasal Cannula 3.00 Humidified 11/06/17 04:00 97.7 67 17 159/69 (99) 97 11/06/17 00:00 68 11/06/17 00:00 98.6 80 18 145/66 (92) 97 11/06/17 00:00 Nasal Cannula 3.00 Humidified 11/05/17 21:00 Nasal Cannula 3.00 Humidified 11/05/17 20:00 83 11/05/17 20:00 98.6 81 18 157/67 (97) 97 11/05/17 18:38 97.8 83 20 160/70 98 11/05/17 18:07 98.3 80 20 144/64 98 11/05/17 17:42 98.0 80 20 141/63 97 11/05/17 16:06 98.0 83 20 133/62 (85) 97 11/05/17 16:00 97 Nasal Cannula 3.00 Humidified 11/05/17 16:00 81 -: 11/06/17 0744 11/06/17 0744 Physical Exam General Appearance: No Acute Distress, Comfortable Eyes Eye Exam: Pupils Equal Throat Throat Exam: Oral Mucosa [place] & Moist Neck Neck Exam: Neck Supple, Trachea Midline Pulmonary Resp Exam: Breath Sounds Equal, No Distress, Rhonchi, Decreased Bases Cardiology CV Exam: Regular, Normal Sinus Rhythm Gastrointestinal/Abdomen GI Exam: Soft, Non-Tender, Bowel Sounds Present Extremeties Extremities Exam: Trace Edema Neurologic Neuro Exam: Alert, Awake, Oriented Psychiatric Psych Exam: Appropriate Responses Assessment/Plan Assessment Summary: DELLA/Acute Renal Failure, Hypertension, CKD Stage III Problem List: (1) UTI (urinary tract infection) ICD Codes: N39.0 - Urinary tract infection, site not specified (2) Essential hypertension ICD Codes: I10 - Essential hypertension Status: Acute (3) Shortness of breath ICD Codes: R06.02 - Shortness of breath Status: Acute (4) Diabetes mellitus ICD Codes: E11.9 - Type 2 diabetes mellitus without complications Status: Chronic (5) Anemia ICD Codes: D64.9 - Anemia, unspecified Status: Acute (6) Hypertension Status: Chronic (7) DELLA (acute kidney injury) ICD Codes: N17.9 - Acute kidney failure, unspecified Status: Acute Plan Patient most likely has ATN causing DELLA. CR Declined 1.37 Hgb is low, transfused. BP is stable. Continue antibiotics. GI is following the patient. gastric emptying study Dr. Huitron to follow Alejandra Cannon MD Nov 06, 2017 13:59
[2017-11-06] MEDS: PANTOPRAZOLE SOD 40 MG DELAYED RELEASE TAB PO SCH (14:43)
[2017-11-06] MEDS: ONDANSETRON HCL 4 MG/2 ML VIAL IVP PRN ×2 (14:44→20:39)
--- NOTE | 2017-11-06 16:34 | HHI.GIFU ---
Subjective Remarks Patient in no apparent distress. States she is feeling better. Denies nausea or vomiting. Tolerating diet. (Ashley Dumont) Objective Vitals I&O Vital Signs Date Time Temp Pulse Resp B/P (MAP) Pulse Ox O2 Delivery O2 Flow Rate FiO2 11/06/17 16:07 99.0 79 17 166/77 (106) 100 11/06/17 12:07 98.7 74 18 167/76 (106) 100 11/06/17 12:00 72 11/06/17 10:04 99 Nasal Cannula 2.00 11/06/17 08:07 98.7 72 18 172/79 (110) 99 11/06/17 08:00 68 11/06/17 04:00 69 11/06/17 04:00 Nasal Cannula 3.00 Humidified 11/06/17 04:00 97.7 67 17 159/69 (99) 97 11/06/17 00:00 68 11/06/17 00:00 98.6 80 18 145/66 (92) 97 11/06/17 00:00 Nasal Cannula 3.00 Humidified 11/05/17 21:00 Nasal Cannula 3.00 Humidified 11/05/17 20:00 83 11/05/17 20:00 98.6 81 18 157/67 (97) 97 11/05/17 18:38 97.8 83 20 160/70 98 11/05/17 18:07 98.3 80 20 144/64 98 11/05/17 17:42 98.0 80 20 141/63 97 I/O 11/05/17 11/05/17 11/05/17 11/06/17 11/06/17 11/06/17 07:00 15:00 23:00 07:00 15:00 23:00 Intake Total 480 ml 925 ml 200 ml Output Total 1350 ml 1200 ml Balance -870 ml 925 ml -1000 ml Intake Oral 480 ml 480 ml 200 ml Packed Cells 400 ml Blood Product IV Normal Saline Flush 45 ml Output Urine Total 1350 ml 1200 ml # Voids 3 # Bowel Movements 1 1 2 1 Laboratory Laboratory Tests Test 11/06/17 07:44 White Blood Count 7.6 Red Blood Count 3.17 Hemoglobin 8.7 Hematocrit 26.4 Mean Corpuscular Volume 83.2 Mean Corpuscular Hemoglobin 27.4 Mean Corpuscular Hemoglobin Concent 32.9 Red Cell Distribution Width 15.9 Platelet Count 153 Mean Platelet Volume 7.2 Blood Urea Nitrogen 18 Creatinine 1.37 Random Glucose 130 Calcium Level 8.3 Sodium Level 137 Potassium Level 3.6 Chloride Level 104 Carbon Dioxide Level 25.4 Anion Gap 8 Estimat Glomerular Filtration Rate 47 Date/Time Source Procedure Growth Status 11/01/17 08:35 Blood Peripheral Aerobic Blood Culture - Final NO GROWTH IN 5 DAYS Complete 11/01/17 08:35 Blood Peripheral Anaerobic Blood Culture - Final NO GROWTH IN 5 DAYS Complete 11/01/17 18:09 Sputum Expectorated Sputum Gram Stain - Final Complete 11/01/17 18:09 Sputum Expectorated Sputum Sputum Culture - Final HEAVY GROWTH NORMAL RESPIRATORY ECTOR Complete 11/01/17 15:50 Urine Random Urine Urine Culture - Final Pseudomonas Aeruginosa Complete Imaging Last Impressions Myocardial Perfusion Scan Nuc Med 11/03/17 0000 Signed Impressions: Service Date/Time: October 12:01 - CONCLUSION: 1. Small fixed defect at the apex. No reversible ischemic segments are identified RISK CATEGORY: Low (<1%% Annual Mortality Rate) Sean Simmons MD Chest X-Ray 11/02/17 0000 Signed Impressions: Service Date/Time: Thursday, November 02, 2017 00:44 - CONCLUSION: 1. Mild patchy opacity at the right lung base. 2. The known small pleural effusions seen on the CT angiogram are not visualized. Erci Petty MD CT Angiography 11/01/17 0826 Signed Impressions: Service Date/Time: Wednesday, November 01, 2017 09:54 - CONCLUSION: 1. Moderate congestive failure with trace bilateral pleural effusions 2. Right hilar and mediastinal adenopathy, nonspecific but deserves followup. Gold Dorantes MD FACR Physical Exam HEENT: Normocephalic; atraumatic CHEST: Diffuse wheezing. CARDIAC: RRR ABDOMEN: Soft, obese, nontender, nondistended; no hepatosplenomegaly; bowel sounds active x 4. SKIN: Normal; no rash; no jaundice. PRODUCTION ADMINISTRATOR: No focal deficits; alert and oriented times three. (Ashley Dumont) Assessment and Plan Plan ASSESSMENT: - Anemia, Hemoccult (+) stool. History of anemia during previous admission for pyelonephritis. Last colonoscopy 2016 normal. Denies history of GIB. Cardiology signed off, feel respiratory difficulties are of pulmonary origin. HH 8.7/26.4. - Early satiety, ?gastroparesis due to early satiety and nausea/vomiting after small meals. Risk factor includes DM. - Sepsis, pyelonephritis, PNA, DM, HTN, CHF, chest pain; per attending PLAN: - Gastric emptying study Tuesday - Continue PPI - MEREDITH - EGD and colonoscopy when respiratory status improves- early next week - Monitor HH - Transfuse as needed - Notify GI of active bleeding - Supportive care - Further recommendations to follow based on results of above. This patient has been seen and examined by myself and Dr. Sanz and this note is written on his behalf (Ashley Dumont) Plan Patient was seen and examined agree with above-noted, gastric emptying study tomorrow (Hari Sanz MD) Ashley Dumont Nov 06, 2017 16:34 Hari Sanz MD Nov 06, 2017 16:56
[2017-11-07] VITALS (7 sets, daily range): BP systolic 156–176; BP diastolic 69–85; PULSE 66–91; RESP 17–20; TEMP 97.9–98.9; O2SAT 97–100
[2017-11-07] MEDS: HEPARIN SODIUM - SQ 10,000 UNITS/ML VIAL SQ SCH ×2 (00:02→12:52)
[2017-11-07] MEDS: PIPERACIL-TAZO 3.375 GM PREMIX 50 ML IV SCH ×5 (03:42→22:17)
[2017-11-07] MEDS: ONDANSETRON HCL 4 MG/2 ML VIAL IVP PRN (03:42)
[2017-11-07 07:24] LABS: HEMATOCRIT 24.7 % (35.0-46.0); MEAN CELL VOLUME 82.7 FL (80.0-100.0); MEAN CORPUSCULAR HGB CONC 33.8 % (32.0-36.0); PLATELET COUNT 169 TH/MM3 (150-450); RED BLOOD COUNT 2.98 MIL/MM3 (4.00-5.30); RED CELL DISTRIBUTION WIDTH 15.3 % (11.6-17.2); REVIEW FLAG FINAL; WHITE BLOOD COUNT 9.4 TH/MM3 (4.0-11.0)
[2017-11-07 07:54] LABS: BICARBONATE 26.3 MEQ/L (21.0-32.0); POTASSIUM 3.5 MEQ/L (3.5-5.1)
[2017-11-07] MEDS: INSULIN ASPART SUPPLEMENTAL SCALE SQ SCH ×4 (08:00→20:44)
[2017-11-07] MEDS: PANTOPRAZOLE SOD 40 MG DELAYED RELEASE TAB PO SCH (08:26)
[2017-11-07] MEDS: DOCUSATE SODIUM 50 MG/SENNA 8.6 MG TAB PO SCH ×2 (09:00→20:44)
[2017-11-07] MEDS: FERROUS SULFATE 325 MG (65 MG ELEMENTAL IRON) TAB PO SCH ×2 (09:23→20:42)
[2017-11-07] MEDS: GEMFIBROZIL 600 MG TAB PO SCH (09:23)
[2017-11-07] MEDS: ASPIRIN EC 325 MG TABEC PO SCH (09:24)
[2017-11-07] MEDS: LABETALOL HCL 100 MG TAB PO SCH ×2 (09:24→20:42)
[2017-11-07] MEDS: PRAVASTATIN SOD 10 MG TAB PO SCH (09:24)
[2017-11-07] MEDS: SODIUM CHLORIDE 0.9% FLUSH 10 ML FLUSH IV FLUSH SCH ×2 (09:24→20:43)
[2017-11-07] MEDS: PROCHLORPERAZINE MALEATE 10 MG TAB PO PRN (09:30)
[2017-11-07] MEDS ORDERED: METOCLOPRAMIDE HCL 10 MG/2 ML VIAL ONE (11:24)
--- NOTE | 2017-11-07 12:27 | RADRPT ---
EXAM DATE/TIME: 11/07/2017 09:59 [facility] COMPARISON: No previous studies available for comparison. INDICATIONS : Abdominal pain with nausea and vomiting. DOSE: 1.1 mCi Tc99m Sulfur Colloid Labeled Whole egg PO MEDICATONS: 1.) 5 mg Reglan IV at 90 minutes IMAGIN hrs MEDICAL HISTORY : Hypertension. Diabetes mellitus type 2. Congestive heart failure. SURGICAL HISTORY : section. ENCOUNTER: Initial ACUITY: 3 days PAIN SCALE: 4/10 LOCATION: Abdomen. TECHNIQUE: Following the oral ingestion of radiotracer-labeled meal, dynamic sequential images in the KYRGYZ projec tion were acquired with simultaneous computer acquisition. The data set was decay-corrected. FINDINGS: LAG PHASE: There is a 10 minutes before onset of gastric emptying. EMPTYING: Gastric emptying kinetics are linear. The decay-corrected, back-extrapolated half-time of emptying i s greater than 120 minutes minutes. (Normal for this lab is 45- 90 minutes.) INTERVENTION: Reglan at 90 minutes with no change in the emptying kinetics. CONCLUSION: Severe gastroparesis. Rony Sarabia MD on November 07, 2017 at 12:23 Board Certified Radiologist. This report was verified electronically.
--- NOTE | 2017-11-07 13:50 | HHI.FPPN ---
Subjective Remarks Patient is doing well her gastric emptying study. She is hungry and is planning on ordering food at this time. She does feel a little tired. However , she denies chest pain, nausea, vomiting, shortness of breath. She denies fever, chills. (Wade Desai MD, R3) Objective Vitals Vital Signs Date Time Temp Pulse Resp B/P (MAP) Pulse Ox O2 Delivery O2 Flow Rate FiO2 11/07/17 08:45 Nasal Cannula 2.00 Humidified 11/07/17 08:00 98.5 76 20 176/85 (115) 99 11/07/17 04:00 98.9 76 17 174/74 (107) 98 11/07/17 04:00 72 11/07/17 04:00 Nasal Cannula 2.00 Humidified 11/07/17 00:00 66 11/07/17 00:00 Nasal Cannula 2.00 Humidified 11/07/17 00:00 98.9 73 17 158/70 (99) 97 11/06/17 20:00 70 11/06/17 20:00 97.9 77 18 163/73 (103) 97 11/06/17 20:00 Nasal Cannula 2.00 Humidified 11/06/17 17:49 100 Nasal Cannula 2.00 11/06/17 16:07 99.0 79 17 166/77 (106) 100 11/06/17 16:00 71 I/O 11/06/17 11/06/17 11/06/17 11/07/17 11/07/17 11/07/17 07:00 15:00 23:00 07:00 15:00 23:00 Intake Total 200 ml 480 ml 240 ml Output Total 1200 ml 1800 ml Balance -1000 ml 480 ml -1560 ml Intake Oral 200 ml 480 ml 240 ml Output Urine Total 1200 ml 1800 ml # Voids 2 # Bowel Movements 1 0 1 (Wade Desai MD, R3) Result Diagram: 11/07/17 0611 11/07/17 0611 Imaging Last Impressions Gastric Emptying Nuclear Medicine 11/07/17 0000 Signed Impressions: Service Date/Time: Tuesday, November 07, 2017 09:59 - CONCLUSION: Severe gastroparesis. Rony Sarabia MD Myocardial Perfusion Scan Nuc Med 11/03/17 0000 Signed Impressions: Service Date/Time: October 12:01 - CONCLUSION: 1. Small fixed defect at the apex. No reversible ischemic segments are identified RISK CATEGORY: Low (<1%% Annual Mortality Rate) Sean Simmons MD Chest X-Ray 11/02/17 0000 Signed Impressions: Service Date/Time: Thursday, November 02, 2017 00:44 - CONCLUSION: 1. Mild patchy opacity at the right lung base. 2. The known small pleural effusions seen on the CT angiogram are not visualized. Eric Petty MD CT Angiography 11/01/17 0826 Signed Impressions: Service Date/Time: Wednesday, November 01, 2017 09:54 - CONCLUSION: 1. Moderate congestive failure with trace bilateral pleural effusions 2. Right hilar and mediastinal adenopathy, nonspecific but deserves followup. Gold Dorantes MD FACR Objective Remarks GENERAL: lying in bed, pleasant SKIN: No rashes, ecchymoses or lesions. Warm and dry. HEAD: NC/AT EYES: EOMI. No conjunctival injection or drainage. ENT: Mucous membranes moist, OP without erythema, tonsillar swelling, or exudate. NECK: Supple, no lymphadenopathy. No JVD. CARDIOVASCULAR: RRR, no m/r/g RESPIRATORY: Moderate wheezing throughout, faint bibasilar crackles GASTROINTESTINAL: Abdomen soft, non-distended, non-tender. No hepato- splenomegaly or palpable masses. MUSCULOSKELETAL: Trace pre-tibial lower extremity edema NEUROLOGICAL: Awake and alert. Oriented x3. 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 Admitted for ACS r/o, CHF exacerbation, sepsis most likely secondary to UTI vs pyelonephritis. 11/07/17: Sepsis resolved. Continues treatment for pyelonephritis. Hemoccult positive and continues with anemia. GI consulted for EGD/colonoscopy. Discharge Planning Unclear timetable of this time Anticipate discharge to SNF vs home health care for physical therapy (Wade Desai MD, R3) Attending Attestation Patient seen and examined. Case reviewed and discussed with the resident team. Agree with plan of care as discussed with me and documented in the resident note. (Margret Desai MD) Problem List: (1) Pyelonephritis ICD Codes: N12 - Pyelonephritis Status: Acute Plan: ID consulted, appreciate recs Urine culture growing Pseudomonas species, sensitive to Zosyn Started Zosyn 3.375 gm IV q6h (11/03) Monitor renal function, I/Os History: Discontinued Linezolid 600mg IV q12h (10/15-11/03) and Levaquin 600mg PO q48h (-11/03) Blood culture: negative (2) Anemia ICD Codes: D64.9 - Anemia, unspecified Status: Acute Plan: s/p 1 unit of RBCs transfusion 11/02, additional 1 unit on 11/05 Continue to monitor H/H, uptrending appropriately s/p 1 unit PRBCs 11/05 Hemoccult positive on 11/02 GI consulted EGD and colonoscopy when respiratory status improved and pt able to tolerate bowel prep - Possibly early this week Consider transfusion to maintain Hgb > 8.0 Cautious with fluid overload Continue ferrous sulfate 325 mg bid Continue protonix 40 mg po daily (3) Gastroparesis ICD Codes: K31.84 - Gastroparesis Status: Acute Plan: GI consulted Gastric emptying study 11/07/17: severe gastropareses Likely complication from diabetes Recs per GI (4) Congestive heart failure ICD Codes: I50.9 - Heart failure, unspecified Status: Acute Plan: CXR no acute disease CTA revealed moderate congestive failure with trace b/l pleural effusions. Right hilar and mediastinal adenopathy, nonspecific but deserves followup BNP 594 Last echo: TERRELL from 09/21 showing normal left ventricular systolic function with an estimated EF of 60-65% Possibly diastolic component contributing to failure vs [id number] shunt given patient having PFO Monitor I/Os Cautious diuresis given DELLA and patient developing DELLA during her recent hospitalization when being diuresed (5) Chest pain ICD Codes: R07.9 - Chest pain, unspecified Status: Resolved Plan: Pleuritic chest pain. ACS r/o Troponin 0.30, 0.50, 0.59 EKG sinus tachycardia Cardiology consulted, recs appreciated - History of CVA/PRO: consider endovascular closure device in the future, contraindicated at this time with ongoing anemia and infection - Elevated troponins likely demand mediated secondary to anemia and renal injury Nuclear stress testing demonstrating small fixed defect at the apex, no reversible ischemic segment identified (6) Diabetes mellitus ICD Codes: E11.9 - Type 2 diabetes mellitus without complications Status: Chronic Plan: -Held home insulin -Low dose ISS -Continue accuchecks ACHS (7) Hypertension Status: Chronic Plan: -Continue home amlodipine and labetalol (8) Dyslipidemia ICD Codes: E78.5 - Dyslipidemia Status: Chronic Plan: - Continue home pravastatin and gemfibrozil (9) Nutrition, metabolism, and development symptoms ICD Codes: R63.8 - Other symptoms and signs concerning food and fluid intake Plan: Diet: 1800 ADA Electrolytes: monitor and replete as needed Fluids: None DVT ppx: heparin 5000 units sq q12h GI ppx: Protonix 40 mg po daily (Wade Desai MD, R3) Problem Qualifiers (1) Congestive heart failure: Qualified Codes: I50.9 - Heart failure, unspecified Wade Desai MD, R3 Nov 07, 2017 13:50 Margret Desai MD Nov 07, 2017 14:57
--- NOTE | 2017-11-07 15:14 | HHI.GIFU ---
Subjective Remarks Pt resting in bed, in no apparent distress. She does report improvement in her respiratory status. Still reports occasional congestion, coughing up sputum. She is requesting food, states she is very hungry after being NPO. (Isabel Fitzgerald) Objective Vitals I&O Vital Signs Date Time Temp Pulse Resp B/P (MAP) Pulse Ox O2 Delivery O2 Flow Rate FiO2 11/07/17 12:00 98.7 75 20 165/74 (104) 98 11/07/17 08:45 Nasal Cannula 2.00 Humidified 11/07/17 08:00 98.5 76 20 176/85 (115) 99 11/07/17 04:00 98.9 76 17 174/74 (107) 98 11/07/17 04:00 72 11/07/17 04:00 Nasal Cannula 2.00 Humidified 11/07/17 00:00 66 11/07/17 00:00 Nasal Cannula 2.00 Humidified 11/07/17 00:00 98.9 73 17 158/70 (99) 97 11/06/17 20:00 70 11/06/17 20:00 97.9 77 18 163/73 (103) 97 11/06/17 20:00 Nasal Cannula 2.00 Humidified 11/06/17 17:49 100 Nasal Cannula 2.00 11/06/17 16:07 99.0 79 17 166/77 (106) 100 11/06/17 16:00 71 I/O 11/06/17 11/06/17 11/06/17 11/07/17 11/07/17 11/07/17 07:00 15:00 23:00 07:00 15:00 23:00 Intake Total 200 ml 480 ml 240 ml Output Total 1200 ml 1800 ml Balance -1000 ml 480 ml -1560 ml Intake Oral 200 ml 480 ml 240 ml Output Urine Total 1200 ml 1800 ml # Voids 2 # Bowel Movements 1 0 1 Laboratory Laboratory Tests Test 11/07/17 06:11 White Blood Count 9.4 Red Blood Count 2.98 Hemoglobin 8.3 Hematocrit 24.7 Mean Corpuscular Volume 82.7 Mean Corpuscular Hemoglobin 28.0 Mean Corpuscular Hemoglobin Concent 33.8 Red Cell Distribution Width 15.3 Platelet Count 169 Mean Platelet Volume 7.6 Blood Urea Nitrogen 15 Creatinine 1.25 Random Glucose 137 Calcium Level 8.2 Sodium Level 138 Potassium Level 3.5 Chloride Level 102 Carbon Dioxide Level 26.3 Anion Gap 10 Estimat Glomerular Filtration Rate 52 Date/Time Source Procedure Growth Status 11/01/17 08:35 Blood Peripheral Aerobic Blood Culture - Final NO GROWTH IN 5 DAYS Complete 11/01/17 08:35 Blood Peripheral Anaerobic Blood Culture - Final NO GROWTH IN 5 DAYS Complete 11/01/17 18:09 Sputum Expectorated Sputum Gram Stain - Final Complete 11/01/17 18:09 Sputum Expectorated Sputum Sputum Culture - Final HEAVY GROWTH NORMAL RESPIRATORY ECTOR Complete 11/01/17 15:50 Urine Random Urine Urine Culture - Final Pseudomonas Aeruginosa Complete Imaging Last Impressions Gastric Emptying Nuclear Medicine 11/07/17 0000 Signed Impressions: Service Date/Time: Tuesday, November 07, 2017 09:59 - CONCLUSION: Severe gastroparesis. Rony Sarabia MD Myocardial Perfusion Scan Nuc Med 11/03/17 0000 Signed Impressions: Service Date/Time: October 12:01 - CONCLUSION: 1. Small fixed defect at the apex. No reversible ischemic segments are identified RISK CATEGORY: Low (<1%% Annual Mortality Rate) Sean Simmons MD Chest X-Ray 11/02/17 0000 Signed Impressions: Service Date/Time: Thursday, November 02, 2017 00:44 - CONCLUSION: 1. Mild patchy opacity at the right lung base. 2. The known small pleural effusions seen on the CT angiogram are not visualized. Eric Petty MD CT Angiography 11/01/17 0826 Signed Impressions: Service Date/Time: Wednesday, November 01, 2017 09:54 - CONCLUSION: 1. Moderate congestive failure with trace bilateral pleural effusions 2. Right hilar and mediastinal adenopathy, nonspecific but deserves followup. Gold Dorantes MD FACR Physical Exam HEENT: Normocephalic; atraumatic CHEST: Diminished CARDIAC: RRR ABDOMEN: Soft, obese, nontender, nondistended; no hepatosplenomegaly; bowel sounds active x 4. SKIN: Normal; no rash; no jaundice. CONSERVATION SCIENTIST: No focal deficits; alert and oriented times three. (Isabel Fitzgerald) Assessment and Plan Plan ASSESSMENT - Anemia - Normocytic. Hemoccult (+) stool. hgb 7.8 on admission- currently 8.3 /24.7 S/P 2 U PRBC, last transfusion 11/05. History of anemia during previous admission for pyelonephritis. Last colonoscopy 2016 normal. Denies history of GIB. Spoke with resident on case, who discussed case with her attending, Dr. Desai, and they feel pt is stable enough for EGD /colonoscopy tomorrow. - Early satiety- Risk factor includes DM. Gastric emptying study (11/07) --> Severe gastroparesis. Reglan at 90 minutes with no changes in emptying kinetics. Erythromycin. - Sepsis 2/2 pyelonephritis, PNA, CHF, chest pain - per attending PLAN - EGD/colonoscopy tomorrow - Obtain consents - Clear liquid diet today - GoLYTELY prep - NPO after MN - Start EES - Monitor HH - Transfuse as needed - Notify GI of active bleeding - Supportive care - Further recommendations to follow based on results of above Pt has been seen and examined by myself and Dr. Flores and this note is written on his behalf (Isabel Fitzgerald) Physician Comments Patient seen and examined Agree with above Continue with current supportive care Monitor labs Plan for an EGD and a colonoscopy tomorrow (Juan Flores MD) Isabel Fitzgerald Nov 07, 2017 15:14 Juan Flores MD Nov 07, 2017 21:18
[2017-11-07] MEDS ORDERED: PEG (High)/E-LYTE SOLN 4000 ML BTL PO ONE (16:00)
--- NOTE | 2017-11-07 17:08 | HHI.NPPN ---
Subjective History of Present Illness 67-year-old female known to me from before with past medical history of hypertension, diabetes mellitus, ischemic heart disease, congestive heart failure, came to the hospital with complaint of cough and shortness of breath. I was called to see the patient because of elevated BUN and creatinine. The patient has history of acute kidney injury and she was recently discharged. Additional Remarks Patient is alert, no SOB, not in distress, now NPO for colonoscopy. Review of Systems General Constitutional: Fatigue Cardiovascular Cardiac: [place] Gastrointestinal Gastrointestinal: Abdominal Pain, Nausea & Vomiting Objective Data Data Vital Signs Date Time Temp Pulse Resp B/P (MAP) Pulse Ox O2 Delivery O2 Flow Rate FiO2 11/07/17 16:00 68 11/07/17 14:35 Nasal Cannula 2.00 11/07/17 12:00 98.7 75 20 165/74 (104) 98 11/07/17 08:45 Nasal Cannula 2.00 Humidified 11/07/17 08:00 98.5 76 20 176/85 (115) 99 11/07/17 08:00 91 11/07/17 04:00 98.9 76 17 174/74 (107) 98 11/07/17 04:00 72 11/07/17 04:00 Nasal Cannula 2.00 Humidified 11/07/17 00:00 66 11/07/17 00:00 Nasal Cannula 2.00 Humidified 11/07/17 00:00 98.9 73 17 158/70 (99) 97 11/06/17 20:00 70 11/06/17 20:00 97.9 77 18 163/73 (103) 97 11/06/17 20:00 Nasal Cannula 2.00 Humidified 11/06/17 17:49 100 Nasal Cannula 2.00 -: 11/07/17 0611 11/07/17 0611 Physical Exam General Appearance: No Acute Distress, Comfortable Eyes Eye Exam: Pupils Equal Throat Throat Exam: Oral Mucosa [place] & Moist Neck Neck Exam: Neck Supple, Trachea Midline Pulmonary Resp Exam: Breath Sounds Equal, No Distress, Rhonchi, Decreased Bases Cardiology CV Exam: Regular, Normal Sinus Rhythm Gastrointestinal/Abdomen GI Exam: Soft, Non-Tender, Bowel Sounds Present Extremeties Extremities Exam: Trace Edema Neurologic Neuro Exam: Alert, Awake, Oriented Psychiatric Psych Exam: Appropriate Responses Assessment/Plan Assessment Summary: DELLA/Acute Renal Failure, Hypertension, CKD Stage III Problem List: (1) UTI (urinary tract infection) ICD Codes: N39.0 - Urinary tract infection, site not specified (2) Essential hypertension ICD Codes: I10 - Essential hypertension Status: Acute (3) Shortness of breath ICD Codes: R06.02 - Shortness of breath Status: Acute (4) Diabetes mellitus ICD Codes: E11.9 - Type 2 diabetes mellitus without complications Status: Chronic (5) Anemia ICD Codes: D64.9 - Anemia, unspecified Status: Acute (6) Hypertension Status: Chronic (7) DELLA (acute kidney injury) ICD Codes: N17.9 - Acute kidney failure, unspecified Status: Acute Plan Patient most likely has ATN causing DELLA. Has sever Gastroparesis, GI following. For colonoscopy in AM. BP is stable. Creatinine is improving. Pita Huitron MD Nov 07, 2017 17:07
--- NOTE | 2017-11-07 17:31 | HHI.IDPN ---
Note Infectious Disease Note Patient feels better. Still with cough and congestion. Less SOB. Afebrile. Drinking prep for colonoscopy tomorrow. History of recent emphysematous pyelonephritis and right perinephric abscess. PAST MEDICAL HISTORY 1. Diabetes mellitus. 2. Hypertension. 3. Hyperlipidemia. 4. Pyelonephritis. 5. Perinephric abscess. ALLERGIES METFORMIN AND CLONIDINE. ANTIBIOTICS Zosyn. OBJECTIVE: Vital Signs Date Time Temp Pulse Resp B/P (MAP) Pulse Ox O2 Delivery O2 Flow Rate FiO2 11/07/17 16:00 68 11/07/17 14:35 Nasal Cannula 2.00 11/07/17 12:00 98.7 75 20 165/74 (104) 98 11/07/17 08:45 Nasal Cannula 2.00 Humidified 11/07/17 08:00 98.5 76 20 176/85 (115) 99 11/07/17 08:00 91 11/07/17 04:00 98.9 76 17 174/74 (107) 98 11/07/17 04:00 72 11/07/17 04:00 Nasal Cannula 2.00 Humidified 11/07/17 00:00 66 11/07/17 00:00 Nasal Cannula 2.00 Humidified 11/07/17 00:00 98.9 73 17 158/70 (99) 97 11/06/17 20:00 70 11/06/17 20:00 97.9 77 18 163/73 (103) 97 11/06/17 20:00 Nasal Cannula 2.00 Humidified 11/06/17 17:49 100 Nasal Cannula 2.00 Laboratory Tests Test 11/06/17 07:44 11/07/17 06:11 White Blood Count 7.6 TH/MM3 9.4 TH/MM3 Red Blood Count 3.17 MIL/MM3 2.98 MIL/MM3 Hemoglobin 8.7 GM/DL 8.3 GM/DL Hematocrit 26.4 % 24.7 % Mean Corpuscular Volume 83.2 FL 82.7 FL Mean Corpuscular Hemoglobin 27.4 PG 28.0 PG Mean Corpuscular Hemoglobin Concent 32.9 % 33.8 % Red Cell Distribution Width 15.9 % 15.3 % Platelet Count 153 TH/MM3 169 TH/MM3 Mean Platelet Volume 7.2 FL 7.6 FL Laboratory Tests Test 11/06/17 07:44 11/07/17 06:11 Blood Urea Nitrogen 18 MG/DL 15 MG/DL Creatinine 1.37 MG/DL 1.25 MG/DL Random Glucose 130 MG/DL 137 MG/DL Calcium Level 8.3 MG/DL 8.2 MG/DL Sodium Level 137 MEQ/L 138 MEQ/L Potassium Level 3.6 MEQ/L 3.5 MEQ/L Chloride Level 104 MEQ/L 102 MEQ/L Carbon Dioxide Level 25.4 MEQ/L 26.3 MEQ/L Anion Gap 8 MEQ/L 10 MEQ/L Estimat Glomerular Filtration Rate 47 ML/MIN 52 ML/MIN Microbiology Date/Time Source Procedure Growth Status 11/01/17 08:35 Blood Peripheral Aerobic Blood Culture - Preliminary NO GROWTH IN 2 DAYS Resulted 11/01/17 08:35 Blood Peripheral Anaerobic Blood Culture - Preliminary NO GROWTH IN 2 DAYS Resulted 11/01/17 08:30 Blood Peripheral Aerobic Blood Culture - Preliminary NO GROWTH IN 2 DAYS Resulted 11/01/17 08:30 Blood Peripheral Anaerobic Blood Culture - Preliminary NO GROWTH IN 2 DAYS Resulted 11/01/17 18:09 Sputum Expectorated Sputum Gram Stain - Final Complete 11/01/17 18:09 Sputum Expectorated Sputum Sputum Culture - Final HEAVY GROWTH NORMAL RESPIRATORY BJ Complete 11/01/17 15:50 Urine Random Urine Urine Culture - Preliminary Pseudomonas Species Resulted IMAGING: Gastric Emptying Nuclear Medicine 11/07/17 0000 Signed Impressions: Service Date/Time: Tuesday, November 07, 2017 09:59 - CONCLUSION: Severe gastroparesis. Rony Sarabia MD Myocardial Perfusion Scan Nuc Med 11/03/17 0000 Signed Impressions: Service Date/Time: October 12:01 - CONCLUSION: 1. Small fixed defect at the apex. No reversible ischemic segments are identified RISK CATEGORY: Low (<1%% Annual Mortality Rate) Sean Simmons MD Chest X-Ray 11/02/17 0000 Signed Impressions: Service Date/Time: Thursday, November 02, 2017 00:44 - CONCLUSION: 1. Mild patchy opacity at the right lung base. 2. The known small pleural effusions seen on the CT angiogram are not visualized. Eric Petty MD CT Angiography 11/01/17 0826 Signed Impressions: Service Date/Time: Wednesday, November 01, 2017 09:54 - CONCLUSION: 1. Moderate congestive failure with trace bilateral pleural effusions 2. Right hilar and mediastinal adenopathy, nonspecific but deserves followup. Gold Dorantes MD FACR PHYSICAL EXAMINATION GENERAL: No acute distress. HEENT: Head atraumatic. Extraocular movements grossly intact, pupils reactive to light. No icterus. Oropharynx moist mucosa without lesions. NECK: Supple without adenopathy. LUNGS: Clearer BS at the right. Slight rhonchi at the left base. HEART: Regular S1-S2 without murmurs. ABDOMEN: Bowel sounds present, soft, no tenderness. EXTREMITIES: No clubbing, cyanosis or edema. SKIN: No rash. NEUROLOGIC: No gross focal findings. IMPRESSION 1. Sepsis probably secondary to urinary infection. 2. UTI - pseudomonas. 3. Shortness of breath and cough. Improved. Probable CHF. ? COPD. Sputum culture has normal bj. 4. History of perinephric abscess. RECOMMENDATIONS Continue Zosyn IV until 11/11/17. Nikita Griffin MD Nov 07, 2017 17:31
[2017-11-08] VITALS (8 sets, daily range): BP systolic 99–194; BP diastolic 62–83; PULSE 18–84; RESP 18–20; TEMP 97.9–98.7; O2SAT 96–99
[2017-11-08] MEDS ORDERED: MAGNESIUM CITRATE SOLN 300 ML BTL PO ONE (00:30)
[2017-11-08] MEDS: HEPARIN SODIUM - SQ 10,000 UNITS/ML VIAL SQ SCH ×2 (00:48→15:33)
[2017-11-08] MEDS: PIPERACIL-TAZO 3.375 GM PREMIX 50 ML IV SCH ×4 (04:23→21:52)
[2017-11-08 05:07] LABS: AUTOMATED NEUTROPHIL # 4.5 TH/MM3 (1.8-7.7); BASOPHIL % 0.4 % (0.0-2.0); EOSINOPHIL # 0.6 TH/MM3 (0-0.4); EOSINOPHIL % 5.9 % (0.0-4.0); HEMO FLAGS DIFF FINAL; LYMPH % 35.4 % (9.0-44.0); LYMPHOCYTE # 3.5 TH/MM3 (1.0-4.8); MEAN CELL VOLUME 82.9 FL (80.0-100.0); MEAN CORPUSCULAR HEMOGLOBIN 28.3 PG (27.0-34.0); MEAN CORPUSCULAR HGB CONC 34.1 % (32.0-36.0); MONO % 13.5 % (0.0-8.0); NEUT % 44.8 % (16.0-70.0); PLATELET COUNT 174 TH/MM3 (150-450); RED BLOOD COUNT 3.13 MIL/MM3 (4.00-5.30); RED CELL DISTRIBUTION WIDTH 15.3 % (11.6-17.2)
[2017-11-08 05:19] LABS: ANION GAP 10 MEQ/L (5-15); AST (GOT) 9 U/L (15-37); BICARBONATE 26.9 MEQ/L (21.0-32.0); BLOOD UREA NITROGEN 11 MG/DL (7-18); CHLORIDE 104 MEQ/L (98-107); GLOMERULAR FILTRATION RATE 56 ML/MIN (>89); POTASSIUM 3.2 MEQ/L (3.5-5.1); SODIUM (NA) 141 MEQ/L (136-145)
[2017-11-08 05:20] LABS: ALT (GPT) 9 U/L (10-53)
[2017-11-08 05:22] LABS: ALKALINE PHOSPHATASE 89 U/L (45-117); TOTAL BILIRUBIN ADULT 0.3 MG/DL (0.2-1.0)
[2017-11-08] MEDS ORDERED: LACTATED RINGER'S 1000 ML IV PRN (05:45)
[2017-11-08] MEDS ORDERED: CHLORHEXIDINE GLUCONATE 2 % 1 PACK (2 CLOTHS) TOPICAL PRN (05:45)
[2017-11-08] MEDS ORDERED: SODIUM CHLORID 0.9% 500 ML IV PRN (05:45)
[2017-11-08] MEDS ORDERED: POVIDONE IODINE 5% (ANTISEPSIS KIT) 4 APPLICATIONS EACH NARE PRN (05:45)
[2017-11-08] MEDS ORDERED: MAGNESIUM CITRATE SOLN 300 ML BTL PO SCH (06:00)
[2017-11-08] MEDS ORDERED: POTASSIUM CHLORIDE 10 MEQ CONTROLLED RELEASE TAB PO ONE ×2 (08:00→15:00)
[2017-11-08] MEDS: INSULIN ASPART SUPPLEMENTAL SCALE SQ SCH ×4 (08:00→21:00)
[2017-11-08] MEDS: SODIUM CHLORIDE 0.9% FLUSH 10 ML FLUSH IV FLUSH SCH ×2 (09:00→20:24)
[2017-11-08] MEDS: LABETALOL HCL 100 MG TAB PO SCH ×2 (09:54→20:24)
--- NOTE | 2017-11-08 10:52 | PD.PROCEDR ---
GI Procedure REFERRING PHYSICIAN Dr. Margret Desai PROCEDURE PERFORMED EGD with biopsy followed by colonoscopy with snare polypectomy INDICATION FOR PROCEDURE Anemia, early satiety, guaiac-positive stools PROCEDURE: The procedure, risks and benefits were discussed with Ms. Cohen and informed consent was obtained. Anesthesia sedated her with Diprivan. She was placed in the left lateral decubitus position. EGD: The Pentax videoscope was introduced through the oropharynx and advanced to the second portion of the duodenum under direct visualization. Retroflexion was performed in the stomach. FINDINGS: The esophagus this appeared to be unremarkable and within normal limits The stomach there was some patchy erythema in the antrum with superficial erosions but no ulcerations and no blood or bleeding the rest of the stomach was unremarkable antral biopsies were taken for further evaluation The duodenum this was normal but random biopsies were taken for further evaluation Colonoscopy: The Pentax videoscope was introduced through the rectum and advanced to cecum where the ileocecal valve and appendiceal orifice were identified. Retroflexion was performed in the rectum. Colonic prep was excellent FINDINGS: Colonic withdrawal time greater than 6 minutes as the scope was slowly withdrawn colonic mucosa was carefully inspected the patient was noted to have 2 polyps medium to large in size sessile one in the ascending colon and the other in the sigmoid both were excised and retrieved for further evaluation the first was cold snare technique the second was hot snare technique the patient was also noted to have some mild scattered diverticulosis. Retroflexion in the rectum did reveal grade 1 internal hemorrhoids rectal examination otherwise unremarkable ESTIMATED BLOOD LOSS: None SPECIMENS REMOVED: Gastric, duodenal, colonic biopsies COMPLICATIONS: None IMPRESSION: Erosive gastritis Colon polyps Diverticulosis Internal hemorrhoids PLAN: Await biopsies Try to avoid aspirin and NSAIDs Recommend PPI Colonoscopy in 3 years High fiber diet We will proceed with a small bowel follow-through in order to further assess the small bowel for cause of anemia If small bowel follow-through is negative patient may be discharged from a GI standpoint follow-up with GI as an outpatient Juan Flores MD Nov 08, 2017 10:52
[2017-11-08] MEDS ORDERED: *RESP: ALBUTEROL 2.5 MG/3 ML NEB (PRN) PERIprocedural Use ONLY NEB ONE (11:06)
[2017-11-08] MEDS ORDERED: LIDOCAINE HCL 1% PF 5 ML SYRINGE OTHER ONE (12:00)
[2017-11-08] MEDS ORDERED: DEXAMETHASONE SOD PHOS 4 MG/ML VIAL IV ONE (12:00)
[2017-11-08] MEDS ORDERED: PROPOFOL 200 MG/20 ML AMP IV ONE (12:00)
[2017-11-08] MEDS ORDERED: SUCCINYLCHOLINE CHLORIDE 100 MG/5 ML SYRINGE IV PUSH ONE (12:00)
[2017-11-08] MEDS ORDERED: ONDANSETRON HCL 4 MG/2 ML VIAL IV ONE (12:00)
[2017-11-08] MEDS ORDERED: MORPHINE SULFATE 4 MG/ML INJ IV ONE (12:00)
--- NOTE | 2017-11-08 13:55 | HHI.FPPN ---
Subjective Remarks No acute events overnight. Saw patient this afternoon after EGD/colonoscopy. Pt lying in bed, doing well. She reports that she is breathing better and is able to walk around with less SOB. She denies CP, abdominal pain, and N/V. On 3L O2 NC. Intake total 11/07 : 720ml Output total :1800ml Objective Vitals Vital Signs Date Time Temp Pulse Resp B/P (MAP) Pulse Ox O2 Delivery O2 Flow Rate FiO2 11/08/17 11:50 96 Nasal Cannula 3.00 11/08/17 11:40 97.8 74 16 145/73 (97) 96 Nasal Cannula 2 11/08/17 11:30 76 16 149/75 (99) 95 Nasal Cannula 2 11/08/17 11:15 75 15 147/74 (98) 94 Nasal Cannula 2 11/08/17 11:00 74 15 143/70 (94) 96 Nasal Cannula 3 11/08/17 10:55 99.0 75 12 130/62 (84) 94 Nasal Cannula 3 11/08/17 08:00 98.7 84 20 194/83 (120) 98 11/08/17 04:00 Nasal Cannula 2.00 Humidified 11/08/17 03:57 74 11/08/17 01:56 Nasal Cannula 2.00 11/08/17 00:04 65 11/08/17 00:00 Nasal Cannula 2.00 Humidified 11/08/17 00:00 98.1 18 18 99/62 (74) 99 11/07/17 21:00 Nasal Cannula 2.00 Humidified 11/07/17 20:00 98.7 80 18 156/69 (98) 98 11/07/17 19:53 71 11/07/17 16:00 68 11/07/17 16:00 97.9 71 20 166/69 (101) 100 11/07/17 14:35 Nasal Cannula 2.00 I/O 11/07/17 11/07/17 11/07/17 11/08/17 11/08/17 11/08/17 07:00 15:00 23:00 07:00 15:00 23:00 Intake Total 240 ml 200 ml 50 ml Output Total 1800 ml 1200 ml 1200 ml Balance -1560 ml -1000 ml -1150 ml Intake Oral 240 ml IV Total 200 ml 50 ml Output Urine Total 1800 ml 1200 ml Stool Total 1200 ml # Voids 0 # Bowel Movements 1 2 Result Diagram: 11/08/1742711/08/17427 Objective Remarks GENERAL: lying in bed, pleasant SKIN: No rashes, ecchymoses or lesions. Warm and dry. HEAD: NC/AT EYES: EOMI. No conjunctival injection or drainage. ENT: Mucous membranes moist, OP without erythema, tonsillar swelling, or exudate. NECK: Supple, no lymphadenopathy. No JVD. CARDIOVASCULAR: RRR, no m/r/g RESPIRATORY: Moderate wheezing throughout, faint bibasilar crackles GASTROINTESTINAL: Abdomen soft, non-distended, non-tender. No hepato- splenomegaly or palpable masses. MUSCULOSKELETAL: Trace pre-tibial lower extremity edema NEUROLOGICAL: Awake and alert. Oriented x3. 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 Admitted for ACS r/o, CHF exacerbation, sepsis most likely secondary to UTI vs pyelonephritis. 11/07/17: Sepsis resolved. Continues treatment for pyelonephritis. Hemoccult positive and continues with anemia. GI consulted for EGD/colonoscopy. Discharge Planning Unclear timetable of this time Anticipate discharge to SNF vs home health care for physical therapy Problem List: (1) Pyelonephritis ICD Codes: N12 - Pyelonephritis Status: Acute Plan: ID consulted, appreciate recs Urine culture growing Pseudomonas species, sensitive to Zosyn Continue Zosyn 3.375 gm IV q6h (11/03 until 11/11) Monitor renal function, I/Os History: Discontinued Linezolid 600mg IV q12h (10/15-11/03) and Levaquin 600mg PO q48h (-11/03) Blood culture: negative (2) Anemia ICD Codes: D64.9 - Anemia, unspecified Status: Acute Plan: s/p 1 unit of RBCs transfusion 11/02, additional 1 unit on 11/05 Continue to monitor H/H, uptrending appropriately s/p 1 unit PRBCs 11/05 Hemoccult positive on 11/02 GI consulted, appreciate recommendations EGD/colonoscopy 11/08 revealed erosive gastritis, colon polyps, diverticulosis, and internal hemorrhoids Await biopsies Try to avoid aspirin and NSAIDS Continue protonix 40 mg po daily Colonoscopy in 3 years Proceed with small bowel follow-through in order to further assess the small bowel for cause of anemia If small bowel follow-through is negative patient may be discharged from a GI standpoint. Consider transfusion to maintain Hgb > 8.0 Cautious with fluid overload Continue ferrous sulfate 325 mg bid (3) Gastroparesis ICD Codes: K31.84 - Gastroparesis Status: Acute Plan: GI consulted Gastric emptying study 11/07/17: severe gastroparesis Start Erythromycin 250mg BID Likely complication from diabetes Recs per GI (4) Congestive heart failure ICD Codes: I50.9 - Heart failure, unspecified Status: Acute Plan: CXR no acute disease CTA revealed moderate congestive failure with trace b/l pleural effusions. Right hilar and mediastinal adenopathy, nonspecific but deserves followup BNP 594 Last echo: TERRELL from 09/21 showing normal left ventricular systolic function with an estimated EF of 60-65% Possibly diastolic component contributing to failure vs [id number] shunt given patient having PFO Monitor I/Os Cautious diuresis given DELLA and patient developing DELLA during her recent hospitalization when being diuresed (5) Chest pain ICD Codes: R07.9 - Chest pain, unspecified Status: Resolved Plan: Pleuritic chest pain. ACS r/o Troponin 0.30, 0.50, 0.59 EKG sinus tachycardia Cardiology consulted, recs appreciated - History of CVA/PRO: consider endovascular closure device in the future, contraindicated at this time with ongoing anemia and infection - Elevated troponins likely demand mediated secondary to anemia and renal injury Nuclear stress testing demonstrating small fixed defect at the apex, no reversible ischemic segment identified No further cardiac intervention at this time, cardiology signed off. (6) Diabetes mellitus ICD Codes: E11.9 - Type 2 diabetes mellitus without complications Status: Chronic Plan: -Held home insulin -Low dose ISS -Continue accuchecks ACHS (7) Hypertension Status: Chronic Plan: -Continue home amlodipine 10mg PO daily and labetalol 100mg PO q12h (8) Dyslipidemia ICD Codes: E78.5 - Dyslipidemia Status: Chronic Plan: - Continue home pravastatin 10mg PO daily and gemfibrozil 300mg PO daily (9) Nutrition, metabolism, and development symptoms ICD Codes: R63.8 - Other symptoms and signs concerning food and fluid intake Plan: Diet: 1800 ADA Electrolytes: monitor and replete as needed Fluids: None Strict I & Os DVT ppx: heparin 5000 units sq q12h GI ppx: Protonix 40 mg po daily Problem Qualifiers (1) Congestive heart failure: Qualified Codes: I50.9 - Heart failure, unspecified Kacey Clark MD R1 Nov 08, 2017 13:55
[2017-11-08] MEDS: PANTOPRAZOLE SOD 40 MG DELAYED RELEASE TAB PO SCH (15:14)
[2017-11-08] MEDS: FERROUS SULFATE 325 MG (65 MG ELEMENTAL IRON) TAB PO SCH ×2 (15:15→20:24)
[2017-11-08] MEDS: PRAVASTATIN SOD 10 MG TAB PO SCH (15:15)
[2017-11-08] MEDS: ASPIRIN EC 325 MG TABEC PO SCH (15:15)
[2017-11-08] MEDS: DOCUSATE SODIUM 50 MG/SENNA 8.6 MG TAB PO SCH ×2 (15:15→20:24)
[2017-11-08] MEDS: GEMFIBROZIL 600 MG TAB PO SCH (15:15)
--- NOTE | 2017-11-08 15:17 | RADRPT ---
EXAM DATE/TIME: 11/08/2017 12:54 [facility] COMPARISON: No previous studies available for comparison. INDICATIONS : Anemia. FLUORO TIME: .5 minutes IMAGE COUNT: 13 CONTRAST: Entero Vu 24% Barium Sulfate (24% w/v, 20% w/w) IMAGING TIME(S): 15 min, 30 min, 45 min, 1 hr, 1.5 hrs MEDICAL HISTORY : Hypertension. Diabetes mellitus type II. Congestive heart failure. SURGICAL HISTORY : section. ENCOUNTER: Subsequent ACUITY: 1 week PAIN SCORE: 7/10 LOCATION: Bilateral Abdomen FINDINGS: Preliminary film is unremarkable. The stomach is grossly unremarkable. Examination of the small bowel demonstrates normal mucosal pattern involving the jejunum and ileum. There is no evidence of mass or obstruction. No intraluminal filling defects are identified. Contras t reaches the colon to the small bowel at 90 minutes. Fluoroscopy of the abdomen and terminal ileum d emonstrates no abnormality. CONCLUSION: 1. Unremarkable small bowel. 2. 90 minute transit time. Aman Loza MD on November 08, 2017 at 15:13 Board Certified Radiologist. This report was verified electronically.
--- NOTE | 2017-11-08 15:21 | HHI.NPPN ---
Subjective History of Present Illness 67-year-old female known to me from before with past medical history of hypertension, diabetes mellitus, ischemic heart disease, congestive heart failure, came to the hospital with complaint of cough and shortness of breath. I was called to see the patient because of elevated BUN and creatinine. The patient has history of acute kidney injury and she was recently discharged. Additional Remarks Patient is alert, has mild abd. cramping, seen after the Small Bowel x-ray. Review of Systems General Constitutional: Fatigue Cardiovascular Cardiac: OSB[place]NE Gastrointestinal Gastrointestinal: Abdominal Pain, Nausea & Vomiting Objective Data Data 11/08/17 11/09/17 19:00 07:00 Intake Total 300 ml Balance 300 ml Other 300 ml # Voids 0 Vital Signs Date Time Temp Pulse Resp B/P (MAP) Pulse Ox O2 Delivery O2 Flow Rate FiO2 11/08/17 11:50 96 Nasal Cannula 3.00 11/08/17 11:40 97.8 74 16 145/73 (97) 96 Nasal Cannula 2 11/08/17 11:30 76 16 149/75 (99) 95 Nasal Cannula 2 11/08/17 11:15 75 15 147/74 (98) 94 Nasal Cannula 2 11/08/17 11:00 74 15 143/70 (94) 96 Nasal Cannula 3 11/08/17 10:55 99.0 75 12 130/62 (84) 94 Nasal Cannula 3 11/08/17 08:00 98.7 84 20 194/83 (120) 98 11/08/17 04:00 Nasal Cannula 2.00 Humidified 11/08/17 03:57 74 11/08/17 01:56 Nasal Cannula 2.00 11/08/17 00:04 65 11/08/17 00:00 Nasal Cannula 2.00 Humidified 11/08/17 00:00 98.1 18 18 99/62 (74) 99 11/07/17 21:00 Nasal Cannula 2.00 Humidified 11/07/17 20:00 98.7 80 18 156/69 (98) 98 11/07/17 19:53 71 11/07/17 16:00 68 11/07/17 16:00 97.9 71 20 166/69 (101) 100 -: 11/08/17 0428 11/08/17427 Physical Exam General Appearance: No Acute Distress, Comfortable Eyes Eye Exam: Pupils Equal Throat Throat Exam: Oral Mucosa [place] & Moist Neck Neck Exam: Neck Supple, Trachea Midline Pulmonary Resp Exam: Breath Sounds Equal, No Distress, Rhonchi, Decreased Bases Cardiology CV Exam: Regular, Normal Sinus Rhythm Gastrointestinal/Abdomen GI Exam: Soft, Non-Tender, Bowel Sounds Present Extremeties Extremities Exam: Trace Edema Neurologic Neuro Exam: Alert, Awake, Oriented Psychiatric Psych Exam: Appropriate Responses Assessment/Plan Assessment Summary: DELLA/Acute Renal Failure, Hypertension, CKD Stage III Problem List: (1) UTI (urinary tract infection) ICD Codes: N39.0 - Urinary tract infection, site not specified (2) Essential hypertension ICD Codes: I10 - Essential hypertension Status: Acute (3) Shortness of breath ICD Codes: R06.02 - Shortness of breath Status: Acute (4) Diabetes mellitus ICD Codes: E11.9 - Type 2 diabetes mellitus without complications Status: Chronic (5) Anemia ICD Codes: D64.9 - Anemia, unspecified Status: Acute (6) Hypertension Status: Chronic (7) DELLA (acute kidney injury) ICD Codes: N17.9 - Acute kidney failure, unspecified Status: Acute Plan Patient most likely has ATN causing DELLA. Has sever Gastroparesis, GI following. For colonoscopy in AM. BP is stable. Creatinine continue to improve. Hgb. is low and stable. Pita Huitron MD Nov 08, 2017 15:21
[2017-11-08] MEDS: ERYTHROMYCIN EC 250 MG TABEC PO SCH ×2 (15:29→20:24)
[2017-11-08] MEDS: ONDANSETRON HCL 4 MG/2 ML VIAL IVP PRN (15:34)
[2017-11-09] VITALS (8 sets, daily range): BP systolic 164–187; BP diastolic 70–93; PULSE 66–82; RESP 16–20; TEMP 97.9–98.8; O2SAT 95–100
[2017-11-09] MEDS: HEPARIN SODIUM - SQ 10,000 UNITS/ML VIAL SQ SCH ×2 (00:03→13:26)
[2017-11-09] MEDS: PIPERACIL-TAZO 3.375 GM PREMIX 50 ML IV SCH ×2 (04:09→09:07)
[2017-11-09] MEDS ORDERED: MAGNESIUM CITRATE SOLN 300 ML BTL PO ONE (06:00)
[2017-11-09] MEDS: INSULIN ASPART SUPPLEMENTAL SCALE SQ SCH ×4 (08:00→21:00)
[2017-11-09] MEDS: ASPIRIN EC 325 MG TABEC PO SCH (09:00)
[2017-11-09] MEDS: FERROUS SULFATE 325 MG (65 MG ELEMENTAL IRON) TAB PO SCH ×2 (09:07→21:04)
[2017-11-09] MEDS: PRAVASTATIN SOD 10 MG TAB PO SCH (09:08)
[2017-11-09] MEDS: DOCUSATE SODIUM 50 MG/SENNA 8.6 MG TAB PO SCH ×2 (09:08→21:04)
[2017-11-09] MEDS: ERYTHROMYCIN EC 250 MG TABEC PO SCH ×2 (09:08→21:04)
[2017-11-09] MEDS: GEMFIBROZIL 600 MG TAB PO SCH (09:08)
[2017-11-09] MEDS: PROCHLORPERAZINE MALEATE 10 MG TAB PO PRN (09:08)
[2017-11-09] MEDS: PANTOPRAZOLE SOD 40 MG DELAYED RELEASE TAB PO SCH (09:08)
[2017-11-09] MEDS: SODIUM CHLORIDE 0.9% FLUSH 10 ML FLUSH IV FLUSH SCH ×2 (09:10→21:00)
[2017-11-09] MEDS: LABETALOL HCL 100 MG TAB PO SCH ×2 (09:17→21:04)
--- NOTE | 2017-11-09 10:29 | HHI.NPPN ---
Subjective History of Present Illness 67-year-old female known to me from before with past medical history of hypertension, diabetes mellitus, ischemic heart disease, congestive heart failure, came to the hospital with complaint of cough and shortness of breath. I was called to see the patient because of elevated BUN and creatinine. The patient has history of acute kidney injury and she was recently discharged. Additional Remarks Patient is alert, has mild abd. cramping, seen after the Small Bowel x-ray. Review of Systems General Constitutional: Fatigue Cardiovascular Cardiac: [place]NE Gastrointestinal Gastrointestinal: Abdominal Pain, Nausea & Vomiting Objective Data Data Vital Signs Date Time Temp Pulse Resp B/P (MAP) Pulse Ox O2 Delivery O2 Flow Rate FiO2 11/09/17 08:00 97.9 76 20 187/80 (115) 100 11/09/17 04:00 Nasal Cannula 2.00 Humidified 11/09/17 04:00 98.5 82 18 175/79 (111) 100 11/09/17 04:00 67 11/09/17 00:00 66 11/09/17 00:00 Nasal Cannula 2.00 Humidified 11/09/17 00:00 98.5 66 18 164/74 (104) 99 11/08/17 20:00 Nasal Cannula 2.00 Humidified 11/08/17 20:00 98.0 73 18 144/67 (92) 96 11/08/17 20:00 77 11/08/17 16:00 97.9 76 20 151/68 (95) 98 11/08/17 12:00 98.6 80 20 179/79 (112) 96 11/08/17 11:50 96 Nasal Cannula 3.00 11/08/17 11:40 97.8 74 16 145/73 (97) 96 Nasal Cannula 2 11/08/17 11:30 76 16 149/75 (99) 95 Nasal Cannula 2 11/08/17 11:15 75 15 147/74 (98) 94 Nasal Cannula 2 11/08/17 11:00 74 15 143/70 (94) 96 Nasal Cannula 3 11/08/17 10:55 99.0 75 12 130/62 (84) 94 Nasal Cannula 3 -: 11/08/17 0428 11/08/17 0428 Physical Exam General Appearance: No Acute Distress, Comfortable Eyes Eye Exam: Pupils Equal Throat Throat Exam: Oral Mucosa [place] & Moist Neck Neck Exam: Neck Supple, Trachea Midline Pulmonary Resp Exam: Breath Sounds Equal, No Distress, Rhonchi, Decreased Bases Cardiology CV Exam: Regular, Normal Sinus Rhythm Gastrointestinal/Abdomen GI Exam: Soft, Non-Tender, Bowel Sounds Present Extremeties Extremities Exam: Trace Edema Neurologic Neuro Exam: Alert, Awake, Oriented Psychiatric Psych Exam: Appropriate Responses Assessment/Plan Assessment Summary: DELLA/Acute Renal Failure, Hypertension, CKD Stage III Problem List: (1) UTI (urinary tract infection) ICD Codes: N39.0 - Urinary tract infection, site not specified (2) Essential hypertension ICD Codes: I10 - Essential hypertension Status: Acute (3) Shortness of breath ICD Codes: R06.02 - Shortness of breath Status: Acute (4) Diabetes mellitus ICD Codes: E11.9 - Type 2 diabetes mellitus without complications Status: Chronic (5) Anemia ICD Codes: D64.9 - Anemia, unspecified Status: Acute (6) Hypertension Status: Chronic (7) DELLA (acute kidney injury) ICD Codes: N17.9 - Acute kidney failure, unspecified Status: Acute Plan Patient most likely has ATN causing DELLA. Has sever Gastroparesis, GI following. For colonoscopy in AM. BP is stable. Creatinine continue to improve. Hgb. is low and stable. Pita Huitron MD Nov 09, 2017 10:29
--- NOTE | 2017-11-09 11:42 | HHI.FPPN ---
Subjective Remarks No acute events overnight. Pt lying in bed, very pleasant. On 2L O2 NC. Ate full liquid diet for breakfast, tolerated well. Afebrile. She denies N/V, CP, abdominal pain, and SOB. (Kacey Clark MD R1) Objective Vitals Vital Signs Date Time Temp Pulse Resp B/P (MAP) Pulse Ox O2 Delivery O2 Flow Rate FiO2 11/09/17 08:00 97.9 76 20 187/80 (115) 100 11/09/17 04:00 Nasal Cannula 2.00 Humidified 11/09/17 04:00 98.5 82 18 175/79 (111) 100 11/09/17 04:00 67 11/09/17 00:00 66 11/09/17 00:00 Nasal Cannula 2.00 Humidified 11/09/17 00:00 98.5 66 18 164/74 (104) 99 11/08/17 20:00 Nasal Cannula 2.00 Humidified 11/08/17 20:00 98.0 73 18 144/67 (92) 96 11/08/17 20:00 77 11/08/17 16:00 97.9 76 20 151/68 (95) 98 11/08/17 12:00 98.6 80 20 179/79 (112) 96 11/08/17 11:50 96 Nasal Cannula 3.00 I/O 11/08/17 11/08/17 11/08/17 11/09/17 11/09/17 11/09/17 07:00 15:00 23:00 07:00 15:00 23:00 Intake Total 50 ml 300 ml 390 ml Output Total 1200 ml 800 ml Balance -1150 ml 300 ml 390 ml -800 ml Intake Oral 390 ml IV Total 50 ml Other 300 ml Output Urine Total 800 ml Stool Total 1200 ml # Voids 0 5 # Bowel Movements 3 1 (Kacey Clark MD R1) Result Diagram: 11/08/1742711/08/17427 Objective Remarks GENERAL: lying in bed, pleasant, NAD SKIN: Right arm moderately swollen and bruised from IV access HEAD: NC/AT EYES: EOMI. No conjunctival injection or drainage. ENT: Mucous membranes moist, OP without erythema, tonsillar swelling, or exudate. NECK: Supple, no lymphadenopathy. No JVD. CARDIOVASCULAR: RRR, no m/r/g RESPIRATORY: Moderate wheezing throughout but improved from prior exam, faint bibasilar crackles GASTROINTESTINAL: Abdomen soft, non-distended, non-tender. No hepato- splenomegaly or palpable masses. MUSCULOSKELETAL: No edema noted. NEUROLOGICAL: Awake and alert. Oriented x3. 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 Admitted for ACS r/o, CHF exacerbation, sepsis most likely secondary to UTI vs pyelonephritis. 11/07/17: Sepsis resolved. Continues treatment for pyelonephritis. Hemoccult pos. GI consulted. 11/09/17: Hb stable. Found to have severe gastroparesis, treatment started. EGD/ colonoscopy revealed erosive gastritis, colon polyps, diverticulosis, and internal hemorrhoids. Small bowel follow-through negative. GI signed off, follow -up outpatient. Discharge Planning Unclear timetable of this time Anticipate discharge to SNF vs home health care for physical therapy (Kacey Clark MD R1) Attending Attestation Patient seen and examined. Case reviewed and discussed with the resident team. Agree with plan of care as discussed with me and documented in the resident note. (Margret Desai MD) Problem List: (1) Pyelonephritis ICD Codes: N12 - Pyelonephritis Status: Acute Plan: ID consulted, appreciate recs Urine culture growing Pseudomonas species, sensitive to Zosyn Continue Zosyn 3.375 gm IV q6h (11/03 until 11/11) Monitor renal function, I/Os History: Discontinued Linezolid 600mg IV q12h (10/15-11/03) and Levaquin 600mg PO q48h (-11/03) Blood culture: negative (2) Anemia ICD Codes: D64.9 - Anemia, unspecified Status: Acute Plan: s/p 1 unit of RBCs transfusion 11/02, additional 1 unit on 11/05 Continue to monitor H/H, uptrending appropriately s/p 1 unit PRBCs 11/05 Hemoccult positive on 11/02 GI consulted, appreciate recommendations EGD/colonoscopy 11/08 revealed erosive gastritis, colon polyps, diverticulosis, and internal hemorrhoids Await biopsies Try to avoid aspirin and NSAIDS Continue protonix 40 mg po daily Colonoscopy in 3 years Small bowel follow-through was done to further assess cause of anemia- negative GI signed off, will follow up outpatient Consider transfusion to maintain Hgb > 8.0 Cautious with fluid overload Continue ferrous sulfate 325 mg bid (3) Gastroparesis ICD Codes: K31.84 - Gastroparesis Status: Acute Plan: GI consulted Gastric emptying study 11/07/17: severe gastroparesis Continue Erythromycin 250mg BID Likely complication from diabetes Recs per GI (4) Congestive heart failure ICD Codes: I50.9 - Heart failure, unspecified Status: Acute Plan: CXR no acute disease CTA revealed moderate congestive failure with trace b/l pleural effusions. Right hilar and mediastinal adenopathy, nonspecific but deserves followup BNP 594 Last echo: TERRELL from 09/21 showing normal left ventricular systolic function with an estimated EF of 60-65% Possibly diastolic component contributing to failure vs [id number] shunt given patient having PFO Monitor I/Os Cautious diuresis given DELLA and patient developing DELLA during her recent hospitalization when being diuresed (5) Chest pain ICD Codes: R07.9 - Chest pain, unspecified Status: Resolved Plan: Pleuritic chest pain. ACS r/o Troponin 0.30, 0.50, 0.59 EKG sinus tachycardia Cardiology consulted, recs appreciated - History of CVA/PRO: consider endovascular closure device in the future, contraindicated at this time with ongoing anemia and infection - Elevated troponins likely demand mediated secondary to anemia and renal injury Nuclear stress testing demonstrating small fixed defect at the apex, no reversible ischemic segment identified No further cardiac intervention at this time, cardiology signed off. (6) Diabetes mellitus ICD Codes: E11.9 - Type 2 diabetes mellitus without complications Status: Chronic Plan: -Held home insulin -Low dose ISS -Continue accuchecks ACHS (7) Hypertension Status: Chronic Plan: -Continue home amlodipine 10mg PO daily and labetalol 100mg PO q12h (8) Dyslipidemia ICD Codes: E78.5 - Dyslipidemia Status: Chronic Plan: - Continue home pravastatin 10mg PO daily and gemfibrozil 300mg PO daily (9) Nutrition, metabolism, and development symptoms ICD Codes: R63.8 - Other symptoms and signs concerning food and fluid intake Plan: Diet: Diabetic diet Electrolytes: monitor and replete as needed Fluids: None Strict I & Os DVT ppx: heparin 5000 units sq q12h GI ppx: Protonix 40 mg po daily (Kacey Clark MD R1) Problem Qualifiers (1) Congestive heart failure: Qualified Codes: I50.9 - Heart failure, unspecified Kacey Clark MD R1 Nov 09, 2017 11:42 Margret Desai MD Nov 09, 2017 12:37
[2017-11-09 12:07] LABS: HEMATOCRIT 25.5 % (35.0-46.0); MEAN CELL VOLUME 83.7 FL (80.0-100.0); MEAN CORPUSCULAR HEMOGLOBIN 28.3 PG (27.0-34.0); MEAN CORPUSCULAR HGB CONC 33.8 % (32.0-36.0); PLATELET COUNT 265 TH/MM3 (150-450); RED BLOOD COUNT 3.05 MIL/MM3 (4.00-5.30); RED CELL DISTRIBUTION WIDTH 15.3 % (11.6-17.2); REVIEW FLAG FINAL
[2017-11-09] MEDS ORDERED: ENALAPRILAT 1.25 MG/ML VIAL IV PUSH PRN (12:15)
--- NOTE | 2017-11-09 12:24 | HHI.IDPN ---
Note Infectious Disease Note Patient feels better. Still with cough, less congestion. Less SOB. Afebrile. Notes she is eating well. IV infiltrated into R. forearm. History of recent emphysematous pyelonephritis and right perinephric abscess. PAST MEDICAL HISTORY 1. Diabetes mellitus. 2. Hypertension. 3. Hyperlipidemia. 4. Pyelonephritis. 5. Perinephric abscess. ALLERGIES METFORMIN AND CLONIDINE. ANTIBIOTICS Zosyn. OBJECTIVE: Vital Signs Date Time Temp Pulse Resp B/P (MAP) Pulse Ox O2 Delivery O2 Flow Rate FiO2 11/09/17 08:00 97.9 76 20 187/80 (115) 100 11/09/17 04:00 Nasal Cannula 2.00 Humidified 11/09/17 04:00 98.5 82 18 175/79 (111) 100 11/09/17 04:00 67 11/09/17 00:00 66 11/09/17 00:00 Nasal Cannula 2.00 Humidified 11/09/17 00:00 98.5 66 18 164/74 (104) 99 11/08/17 20:00 Nasal Cannula 2.00 Humidified 11/08/17 20:00 98.0 73 18 144/67 (92) 96 11/08/17 20:00 77 11/08/17 16:00 97.9 76 20 151/68 (95) 98 Laboratory Tests Test 11/08/17 04:28 11/09/17 09:35 White Blood Count 10.0 TH/MM3 11.0 TH/MM3 Red Blood Count 3.13 MIL/MM3 3.05 MIL/MM3 Hemoglobin 8.8 GM/DL 8.6 GM/DL Hematocrit 26.0 % 25.5 % Mean Corpuscular Volume 82.9 FL 83.7 FL Mean Corpuscular Hemoglobin 28.3 PG 28.3 PG Mean Corpuscular Hemoglobin Concent 34.1 % 33.8 % Red Cell Distribution Width 15.3 % 15.3 % Platelet Count 174 TH/MM3 265 TH/MM3 Mean Platelet Volume 7.6 FL 8.0 FL Neutrophils (%) (Auto) 44.8 % Lymphocytes (%) (Auto) 35.4 % Monocytes (%) (Auto) 13.5 % Eosinophils (%) (Auto) 5.9 % Basophils (%) (Auto) 0.4 % Neutrophils # (Auto) 4.5 TH/MM3 Lymphocytes # (Auto) 3.5 TH/MM3 Monocytes # (Auto) 1.3 TH/MM3 Eosinophils # (Auto) 0.6 TH/MM3 Basophils # (Auto) 0.0 TH/MM3 CBC Comment DIFF FINAL Differential Comment Laboratory Tests Test 11/08/17 04:28 Blood Urea Nitrogen 11 MG/DL Creatinine 1.17 MG/DL Random Glucose 136 MG/DL Total Protein 7.2 GM/DL Albumin 2.4 GM/DL Calcium Level 8.1 MG/DL Alkaline Phosphatase 89 U/L Aspartate Amino Transf (AST/SGOT) 9 U/L Alanine Aminotransferase (ALT/SGPT) 9 U/L Total Bilirubin 0.3 MG/DL Sodium Level 141 MEQ/L Potassium Level 3.2 MEQ/L Chloride Level 104 MEQ/L Carbon Dioxide Level 26.9 MEQ/L Anion Gap 10 MEQ/L Estimat Glomerular Filtration Rate 56 ML/MIN Microbiology Date/Time Source Procedure Growth Status 11/01/17 08:35 Blood Peripheral Aerobic Blood Culture - Preliminary NO GROWTH IN 2 DAYS Resulted 11/01/17 08:35 Blood Peripheral Anaerobic Blood Culture - Preliminary NO GROWTH IN 2 DAYS Resulted 11/01/17 08:30 Blood Peripheral Aerobic Blood Culture - Preliminary NO GROWTH IN 2 DAYS Resulted 11/01/17 08:30 Blood Peripheral Anaerobic Blood Culture - Preliminary NO GROWTH IN 2 DAYS Resulted 11/01/17 18:09 Sputum Expectorated Sputum Gram Stain - Final Complete 11/01/17 18:09 Sputum Expectorated Sputum Sputum Culture - Final HEAVY GROWTH NORMAL RESPIRATORY BJ Complete 11/01/17 15:50 Urine Random Urine Urine Culture - Preliminary Pseudomonas Species Resulted IMAGING: Small Bowel X-Ray 11/08/17 0000 Signed Impressions: Service Date/Time: Wednesday, November 08, 2017 12:54 - CONCLUSION: 1. Unremarkable small bowel. 2. 90 minute transit time. Aman Loza MD Gastric Emptying Nuclear Medicine 11/07/17 0000 Signed Impressions: Service Date/Time: Tuesday, November 07, 2017 09:59 - CONCLUSION: Severe gastroparesis. Rony Sarabia MD Myocardial Perfusion Scan Nuc Med 11/03/17 0000 Signed Impressions: Service Date/Time: October 12:01 - CONCLUSION: 1. Small fixed defect at the apex. No reversible ischemic segments are identified RISK CATEGORY: Low (<1%% Annual Mortality Rate) Sean Simmons MD Chest X-Ray 11/02/17 0000 Signed Impressions: Service Date/Time: Thursday, November 02, 2017 00:44 - CONCLUSION: 1. Mild patchy opacity at the right lung base. 2. The known small pleural effusions seen on the CT angiogram are not visualized. Eric Petty MD CT Angiography 11/01/17 0826 Signed Impressions: Service Date/Time: Wednesday, November 01, 2017 09:54 - CONCLUSION: 1. Moderate congestive failure with trace bilateral pleural effusions 2. Right hilar and mediastinal adenopathy, nonspecific but deserves followup. Gold Dorantes MD FACR PHYSICAL EXAMINATION GENERAL: No acute distress. HEENT: Head atraumatic. Extraocular movements grossly intact, pupils reactive to light. No icterus. Oropharynx moist mucosa without lesions. NECK: Supple without adenopathy. LUNGS: Clear BS at the right. Slight rhonchi at the left base. HEART: Regular S1-S2 without murmurs. ABDOMEN: Bowel sounds present, soft, no tenderness. EXTREMITIES: No clubbing, cyanosis. R forearm swelling. No erythema. SKIN: No rash. NEUROLOGIC: No gross focal findings. IMPRESSION 1. Sepsis probably secondary to urinary infection. Improved. 2. UTI - pseudomonas. 3. Shortness of breath and cough. Improved. Probable CHF. ? COPD. Sputum culture has normal bj. 4. History of perinephric abscess. Stable. RECOMMENDATIONS Stop Zosyn. Can be discharged from my standpoint. Nikita Griffin MD Nov 09, 2017 12:24
[2017-11-09] MEDS ORDERED: cloNIDine HCL 0.1 MG TAB PO PRN (17:00)
[2017-11-10] VITALS (9 sets, daily range): BP systolic 141–210; BP diastolic 65–90; PULSE 70–98; RESP 16–20; TEMP 96.8–98.7; O2SAT 95–99
[2017-11-10] MEDS: HEPARIN SODIUM - SQ 10,000 UNITS/ML VIAL SQ SCH ×3 (00:27→22:14)
[2017-11-10 06:56] LABS: HEMATOCRIT 24.3 % (35.0-46.0); MEAN CELL VOLUME 82.7 FL (80.0-100.0); MEAN CORPUSCULAR HEMOGLOBIN 27.1 PG (27.0-34.0); MEAN CORPUSCULAR HGB CONC 32.8 % (32.0-36.0); PLATELET COUNT 327 TH/MM3 (150-450); RED BLOOD COUNT 2.93 MIL/MM3 (4.00-5.30); RED CELL DISTRIBUTION WIDTH 15.4 % (11.6-17.2); REVIEW FLAG FINAL; WHITE BLOOD COUNT 14.3 TH/MM3 (4.0-11.0)
[2017-11-10 07:19] LABS: BICARBONATE 24.7 MEQ/L (21.0-32.0); POTASSIUM 3.6 MEQ/L (3.5-5.1)
[2017-11-10] MEDS: INSULIN ASPART SUPPLEMENTAL SCALE SQ SCH ×4 (08:00→22:18)
[2017-11-10] MEDS: ERYTHROMYCIN EC 250 MG TABEC PO SCH ×2 (08:38→22:14)
[2017-11-10] MEDS: FERROUS SULFATE 325 MG (65 MG ELEMENTAL IRON) TAB PO SCH ×2 (08:38→22:14)
[2017-11-10] MEDS: PANTOPRAZOLE SOD 40 MG DELAYED RELEASE TAB PO SCH (08:38)
[2017-11-10] MEDS: DOCUSATE SODIUM 50 MG/SENNA 8.6 MG TAB PO SCH ×2 (08:38→22:14)
[2017-11-10] MEDS: GEMFIBROZIL 600 MG TAB PO SCH (08:38)
[2017-11-10] MEDS: ASPIRIN EC 325 MG TABEC PO SCH (08:38)
[2017-11-10] MEDS: PRAVASTATIN SOD 10 MG TAB PO SCH (08:38)
[2017-11-10] MEDS: LABETALOL HCL 100 MG TAB PO SCH ×2 (08:38→22:14)
[2017-11-10] MEDS: SODIUM CHLORIDE 0.9% FLUSH 10 ML FLUSH IV FLUSH SCH ×2 (08:39→21:00)
--- NOTE | 2017-11-10 09:22 | HHI.FF ---
Face to Face Verification Diagnosis: (1) UTI (urinary tract infection) (2) Shortness of breath (3) Congestive heart failure (4) Emphysematous pyelonephritis Physical Therapy Order: Evaluate and Treat, Improve ambulation, Strength and gait training I have seen patient Billie Cohen on 11/10/17. My clinical findings support the need for the requested home health care services because: Ltd mobility - disease progression Deconditioned w/ increased weakness I certify that my clinical findings support that this patient is homebound because: Hx COPD- exertion dyspnea/weakness Kacey Clark MD R1 Nov 10, 2017 09:22
--- NOTE | 2017-11-10 09:24 | HHI.FPPN ---
Subjective Remarks No acute events overnight. Afebrile. BPs noted to be elevated ranging 170s-200s/ 70s-90s over past 24 hours. Pulse stable. Patient seen and examined this AM. Patient's only concern is regarding her blood pressure being elevated. She specifically denies chest pain or pressure, SOB, headaches. Tolerating diet without N/V this AM. Ambulating within room. Objective Vitals Vital Signs Date Time Temp Pulse Resp B/P (MAP) Pulse Ox O2 Delivery O2 Flow Rate FiO2 11/10/17 08:00 98.0 78 20 210/90 (130) 95 194/88 (123) 11/10/17 04:00 98 11/10/17 04:00 98.7 75 16 178/81 (113) 98 11/10/17 00:00 70 11/10/17 00:00 98.3 78 16 147/85 (105) 99 11/09/17 20:00 78 11/09/17 20:00 98.8 78 16 180/93 (122) 95 11/09/17 16:00 98.4 82 20 173/70 (104) 97 11/09/17 15:40 99 Nasal Cannula 2.00 11/09/17 12:00 98.4 74 20 176/77 (110) 99 I/O 11/09/17 11/09/17 11/09/17 11/10/17 11/10/17 11/10/17 07:00 15:00 23:00 07:00 15:00 23:00 Intake Total 50 ml 720 ml 720 ml Output Total 800 ml Balance -800 ml 50 ml 720 ml 720 ml Intake Oral 720 ml 720 ml IV Total 50 ml Output Urine Total 800 ml # Voids 4 2 # Bowel Movements 1 1 Result Diagram: 11/10/1761911/10/17619 Objective Remarks GENERAL: Sitting up in bed, pleasant, NAD SKIN: Small areas of ecchymoses from previous IV sites. HEAD: NC/AT EYES: EOMI. No conjunctival injection or drainage. ENT: Mucous membranes moist, OP without erythema, tonsillar swelling, or exudate. NECK: Supple, no lymphadenopathy. No JVD. CARDIOVASCULAR: RRR, no m/r/g RESPIRATORY: Moderate wheezing throughout, faint bibasilar crackles. Equal breath sounds. GASTROINTESTINAL: Abdomen soft, non-distended, non-tender. No hepato- splenomegaly or palpable masses. MUSCULOSKELETAL: No edema noted. NEUROLOGICAL: Awake and alert. Oriented x3. 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 Admitted for ACS r/o, CHF exacerbation, sepsis secondary to UTI vs pyelonephritis. Discharge Planning Anticipate discharge home with [facility] for PT once blood pressure is stabilized Problem List: (1) Pyelonephritis ICD Codes: N12 - Pyelonephritis Status: Acute Plan: ID consulted Urine culture growing Pseudomonas species, sensitive to Zosyn Completed Zosyn 3.375 gm IV q6h (11/03 until 11/09) Monitor renal function, I/Os History: Discontinued Linezolid 600mg IV q12h (10/15-11/03) and Levaquin 600mg PO q48h (-11/03) Blood culture no growth after 5 days (2) Anemia ICD Codes: D64.9 - Anemia, unspecified Status: Acute Plan: s/p 1 unit of RBCs transfusion 11/02, additional 1 unit on 11/05 Continue to monitor H/H, uptrending appropriately s/p 1 unit PRBCs 11/05 Hemoccult positive on 11/02 GI consulted EGD/colonoscopy 11/08 revealed erosive gastritis, colon polyps, diverticulosis, and internal hemorrhoids Biopsies showing duodenal mucosa with features suggestive of peptic duodenitis, mild active chronic gastritis, negative helicobacter; tubular adenoma of both ascending and sigmoid colon polyps Try to avoid aspirin and NSAIDS Continue protonix 40 mg po daily Colonoscopy in 3 years Small bowel follow-through was done to further assess cause of anemia- negative GI signed off, will follow up outpatient Consider transfusion to maintain Hgb > 8.0 Cautious with fluid overload Continue ferrous sulfate 325 mg bid (3) Gastroparesis ICD Codes: K31.84 - Gastroparesis Status: Acute Plan: GI consulted Gastric emptying study 11/07/17: severe gastroparesis Continue Erythromycin 250mg BID Likely complication from diabetes (4) Congestive heart failure ICD Codes: I50.9 - Heart failure, unspecified Status: Acute Plan: CXR no acute disease CTA revealed moderate congestive failure with trace b/l pleural effusions. Right hilar and mediastinal adenopathy, nonspecific but deserves followup BNP 594 Last echo: TERRELL from 09/21 showing normal left ventricular systolic function with an estimated EF of 60-65% Possibly diastolic component contributing to failure vs [id number] shunt given patient having PFO Monitor I/Os Cautious diuresis given DELLA and patient developing DELLA during her recent hospitalization when being diuresed (5) Chest pain ICD Codes: R07.9 - Chest pain, unspecified Status: Resolved Plan: Pleuritic chest pain. ACS r/o Troponin 0.30, 0.50, 0.59 EKG sinus tachycardia Cardiology consulted, recs appreciated - History of CVA/PRO: consider endovascular closure device in the future, contraindicated at this time with ongoing anemia and infection - Elevated troponins likely demand mediated secondary to anemia and renal injury Nuclear stress testing demonstrating small fixed defect at the apex, no reversible ischemic segment identified No further cardiac intervention at this time, cardiology signed off. (6) Diabetes mellitus ICD Codes: E11.9 - Type 2 diabetes mellitus without complications Status: Chronic Plan: -Held home insulin -Low dose ISS -Continue accuchecks ACHS (7) Hypertension Status: Chronic Plan: BP elevated to 210/90 this AM Continue home amlodipine 10mg PO daily and labetalol 100mg PO q12h Start hydralazine 25 mg po tid Clonidine 0.1 mg po q6h prn BP > 180/100 (8) Dyslipidemia ICD Codes: E78.5 - Dyslipidemia Status: Chronic Plan: - Continue home pravastatin 10mg PO daily and gemfibrozil 300mg PO daily (9) Nutrition, metabolism, and development symptoms ICD Codes: R63.8 - Other symptoms and signs concerning food and fluid intake Plan: Diet: Diabetic Electrolytes: monitor and replete as needed Fluids: None DVT ppx: heparin 5000 units sq q12h GI ppx: Protonix 40 mg po daily Problem Qualifiers (1) Congestive heart failure: Qualified Codes: I50.9 - Heart failure, unspecified Ephraim Marlow MD R2 Nov 10, 2017 09:24
[2017-11-10] MEDS: hydrALAZINE HCL 25 MG TAB PO SCH ×3 (11:29→22:14)
--- NOTE | 2017-11-10 17:35 | HHI.NPPN ---
Subjective History of Present Illness 67-year-old female known to me from before with past medical history of hypertension, diabetes mellitus, ischemic heart disease, congestive heart failure, came to the hospital with complaint of cough and shortness of breath. I was called to see the patient because of elevated BUN and creatinine. The patient has history of acute kidney injury and she was recently discharged. Additional Remarks Patient is alert, has mild abd. cramping, seen after the Small Bowel x-ray. Review of Systems General Constitutional: Fatigue Cardiovascular Cardiac: [place]NE Gastrointestinal Gastrointestinal: Abdominal Pain, Nausea & Vomiting Objective Data Data 11/10/17 11/11/17 19:00 07:00 Intake Total 480 ml Balance 480 ml Intake Oral 480 ml # Voids 3 Vital Signs Date Time Temp Pulse Resp B/P (MAP) Pulse Ox O2 Delivery O2 Flow Rate FiO2 11/10/17 16:00 98.5 89 20 182/87 (118) 98 11/10/17 13:35 96 11/10/17 12:00 98.4 81 20 190/80 (116) 96 11/10/17 08:00 Room Air 11/10/17 08:00 98.0 78 20 210/90 (130) 95 194/88 (123) 11/10/17 07:56 77 11/10/17 04:00 98 11/10/17 04:00 98.7 75 16 178/81 (113) 98 11/10/17 00:00 70 11/10/17 00:00 98.3 78 16 147/85 (105) 99 11/09/17 20:00 78 11/09/17 20:00 98.8 78 16 180/93 (122) 95 -: 11/10/17 0620 11/10/17 0620 Physical Exam General Appearance: No Acute Distress, Comfortable Eyes Eye Exam: Pupils Equal Throat Throat Exam: Oral Mucosa [place] & Moist Neck Neck Exam: Neck Supple, Trachea Midline Pulmonary Resp Exam: Breath Sounds Equal, No Distress, Rhonchi, Decreased Bases Cardiology CV Exam: Regular, Normal Sinus Rhythm Gastrointestinal/Abdomen GI Exam: Soft, Non-Tender, Bowel Sounds Present Extremeties Extremities Exam: Trace Edema Neurologic Neuro Exam: Alert, Awake, Oriented Psychiatric Psych Exam: Appropriate Responses Assessment/Plan Assessment Summary: DELLA/Acute Renal Failure, Hypertension, CKD Stage III Problem List: (1) UTI (urinary tract infection) ICD Codes: N39.0 - Urinary tract infection, site not specified (2) Essential hypertension ICD Codes: I10 - Essential hypertension Status: Acute (3) Shortness of breath ICD Codes: R06.02 - Shortness of breath Status: Acute (4) Diabetes mellitus ICD Codes: E11.9 - Type 2 diabetes mellitus without complications Status: Chronic (5) Anemia ICD Codes: D64.9 - Anemia, unspecified Status: Acute (6) Hypertension Status: Chronic (7) DELLA (acute kidney injury) ICD Codes: N17.9 - Acute kidney failure, unspecified Status: Acute Plan Patient most likely has ATN causing DELLA. Has sever Gastroparesis, GI following. For colonoscopy in AM. BP is stable. Creatinine continue to improve. Hgb. is low and stable. Pita Huitron MD Nov 10, 2017 17:35
[2017-11-11] VITALS (9 sets, daily range): BP systolic 110–181; BP diastolic 64–85; PULSE 73–83; RESP 16–20; TEMP 98.6–99.6; O2SAT 96–97
[2017-11-11] MEDS ORDERED: hydrALAZINE HCL 20 MG/ML VIAL IV PUSH ONE (05:30)
[2017-11-11] MEDS: hydrALAZINE HCL 25 MG TAB PO SCH ×3 (05:54→22:40)
[2017-11-11] MEDS: PROCHLORPERAZINE MALEATE 10 MG TAB PO PRN ×3 (05:57→21:32)
[2017-11-11] MEDS: SODIUM CHLORIDE 0.9% FLUSH 10 ML FLUSH IV FLUSH SCH ×2 (07:40→21:00)
[2017-11-11 07:51] LABS: HEMATOCRIT 25.4 % (35.0-46.0); MEAN CELL VOLUME 84.1 FL (80.0-100.0); MEAN CORPUSCULAR HEMOGLOBIN 28.1 PG (27.0-34.0); MEAN CORPUSCULAR HGB CONC 33.4 % (32.0-36.0); PLATELET COUNT 441 TH/MM3 (150-450); RED BLOOD COUNT 3.03 MIL/MM3 (4.00-5.30); RED CELL DISTRIBUTION WIDTH 15.5 % (11.6-17.2); REVIEW FLAG FINAL; WHITE BLOOD COUNT 14.9 TH/MM3 (4.0-11.0)
[2017-11-11 07:54] LABS: BICARBONATE 22.9 MEQ/L (21.0-32.0); POTASSIUM 3.2 MEQ/L (3.5-5.1)
[2017-11-11] MEDS: ASPIRIN EC 325 MG TABEC PO SCH (08:56)
[2017-11-11] MEDS: GEMFIBROZIL 600 MG TAB PO SCH (08:56)
[2017-11-11] MEDS: FERROUS SULFATE 325 MG (65 MG ELEMENTAL IRON) TAB PO SCH ×2 (08:57→21:32)
[2017-11-11] MEDS: ERYTHROMYCIN EC 250 MG TABEC PO SCH ×2 (08:57→21:32)
[2017-11-11] MEDS: LABETALOL HCL 100 MG TAB PO SCH (08:57)
[2017-11-11] MEDS: DOCUSATE SODIUM 50 MG/SENNA 8.6 MG TAB PO SCH ×2 (08:57→21:32)
[2017-11-11] MEDS: PANTOPRAZOLE SOD 40 MG DELAYED RELEASE TAB PO SCH (08:57)
[2017-11-11] MEDS: PRAVASTATIN SOD 10 MG TAB PO SCH (08:57)
[2017-11-11] MEDS: INSULIN ASPART SUPPLEMENTAL SCALE SQ SCH ×4 (08:58→21:00)
[2017-11-11] MEDS ORDERED: POTASSIUM CHLORIDE 10 MEQ CONTROLLED RELEASE TAB PO ONE (09:45)
[2017-11-11] MEDS: LISINOPRIL 20 MG TAB PO SCH (10:07)
--- NOTE | 2017-11-11 13:33 | HHI.FPPN ---
Subjective Remarks Patient doing okay this morning. She feels tired and "a little weak." She denies cp, n/v/d, sob, fevers or chills. Objective Vitals Vital Signs Date Time Temp Pulse Resp B/P (MAP) Pulse Ox O2 Delivery O2 Flow Rate FiO2 11/11/17 12:06 99.6 77 18 153/65 (94) 96 11/11/17 10:48 Room Air 21 11/11/17 10:27 Room Air 21 11/11/17 08:06 98.6 83 18 144/85 (104) 96 11/11/17 04:00 81 11/11/17 04:00 98.8 83 18 181/80 (113) 97 11/11/17 00:00 98.7 83 20 175/77 (109) 97 11/11/17 00:00 73 11/10/17 22:19 Room Air 11/10/17 20:00 96.8 85 18 141/65 (90) 96 11/10/17 20:00 81 11/10/17 16:00 98.5 89 20 182/87 (118) 98 11/10/17 15:54 89 11/10/17 13:35 96 I/O 11/10/17 11/10/17 11/10/17 11/11/17 11/11/17 11/11/17 07:00 15:00 23:00 07:00 15:00 23:00 Intake Total 720 ml 480 ml Balance 720 ml 480 ml Intake Oral 720 ml 480 ml # Voids 2 3 Result Diagram: 11/11/1772011/11/17720 Objective Remarks GENERAL: Sitting up in bed, pleasant, NAD SKIN: Small areas of ecchymoses from previous IV sites. HEAD: NC/AT EYES: EOMI. No conjunctival injection or drainage. ENT: Mucous membranes moist, OP without erythema, tonsillar swelling, or exudate. NECK: Supple, no lymphadenopathy. No JVD. CARDIOVASCULAR: RRR, no m/r/g RESPIRATORY: Moderate wheezing throughout, faint bibasilar crackles. Equal breath sounds. GASTROINTESTINAL: Abdomen soft, non-distended, non-tender. No hepato- splenomegaly or palpable masses. MUSCULOSKELETAL: No edema noted. NEUROLOGICAL: Awake and alert. Oriented x3. 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 Admitted for ACS r/o, CHF exacerbation, sepsis secondary to UTI vs pyelonephritis. Discharge Planning Anticipate discharge home with [facility] for PT once blood pressure is stabilized Problem List: (1) Pyelonephritis ICD Codes: N12 - Pyelonephritis Status: Acute Plan: ID consulted Urine culture growing Pseudomonas species, sensitive to Zosyn Completed Zosyn 3.375 gm IV q6h (11/03 until 11/09) Monitor renal function, I/Os History: Discontinued Linezolid 600mg IV q12h (10/15-11/03) and Levaquin 600mg PO q48h (-11/03) Blood culture no growth after 5 days (2) Anemia ICD Codes: D64.9 - Anemia, unspecified Status: Acute Plan: s/p 1 unit of RBCs transfusion 11/02, additional 1 unit on 11/05 Continue to monitor H/H, uptrending appropriately s/p 1 unit PRBCs 11/05 Hemoccult positive on 11/02 GI consulted EGD/colonoscopy 11/08 revealed erosive gastritis, colon polyps, diverticulosis, and internal hemorrhoids Biopsies showing duodenal mucosa with features suggestive of peptic duodenitis, mild active chronic gastritis, negative helicobacter; tubular adenoma of both ascending and sigmoid colon polyps Try to avoid aspirin and NSAIDS Continue protonix 40 mg po daily Colonoscopy in 3 years Small bowel follow-through was done to further assess cause of anemia- negative GI signed off, will follow up outpatient Consider transfusion to maintain Hgb > 8.0 Cautious with fluid overload Continue ferrous sulfate 325 mg bid (3) Gastroparesis ICD Codes: K31.84 - Gastroparesis Status: Acute Plan: GI consulted Gastric emptying study 11/07/17: severe gastroparesis Continue Erythromycin 250mg BID Likely complication from diabetes (4) Congestive heart failure ICD Codes: I50.9 - Heart failure, unspecified Status: Acute Plan: CXR no acute disease CTA revealed moderate congestive failure with trace b/l pleural effusions. Right hilar and mediastinal adenopathy, nonspecific but deserves followup BNP 594 Last echo: TERRELL from 09/21 showing normal left ventricular systolic function with an estimated EF of 60-65% Possibly diastolic component contributing to failure vs [id number] shunt given patient having PFO Monitor I/Os Cautious diuresis given DELLA and patient developing DELLA during her recent hospitalization when being diuresed (5) Chest pain ICD Codes: R07.9 - Chest pain, unspecified Status: Resolved Plan: Pleuritic chest pain. ACS r/o Troponin 0.30, 0.50, 0.59 EKG sinus tachycardia Cardiology consulted, recs appreciated - History of CVA/PRO: consider endovascular closure device in the future, contraindicated at this time with ongoing anemia and infection - Elevated troponins likely demand mediated secondary to anemia and renal injury Nuclear stress testing demonstrating small fixed defect at the apex, no reversible ischemic segment identified No further cardiac intervention at this time, cardiology signed off. (6) Diabetes mellitus ICD Codes: E11.9 - Type 2 diabetes mellitus without complications Status: Chronic Plan: -Held home insulin -Low dose ISS -Continue accuchecks ACHS (7) Hypertension Status: Chronic Plan: BP improved with Lisinopril 20 mg Continue home amlodipine 10mg PO daily Continue hydralazine 25 mg po tid (8) Dyslipidemia ICD Codes: E78.5 - Dyslipidemia Status: Chronic Plan: - Continue home pravastatin 10mg PO daily and gemfibrozil 300mg PO daily (9) Nutrition, metabolism, and development symptoms ICD Codes: R63.8 - Other symptoms and signs concerning food and fluid intake Plan: Diet: Diabetic Electrolytes: monitor and replete as needed Fluids: None DVT ppx: heparin 5000 units sq q12h GI ppx: Protonix 40 mg po daily Problem Qualifiers (1) Congestive heart failure: Qualified Codes: I50.9 - Heart failure, unspecified Wade Desai MD, R3 Nov 11, 2017 13:33
[2017-11-11] MEDS: HEPARIN SODIUM - SQ 10,000 UNITS/ML VIAL SQ SCH (13:48)
--- NOTE | 2017-11-11 16:52 | HHI.NPPN ---
Subjective History of Present Illness 67-year-old female known to me from before with past medical history of hypertension, diabetes mellitus, ischemic heart disease, congestive heart failure, came to the hospital with complaint of cough and shortness of breath. I was called to see the patient because of elevated BUN and creatinine. The patient has history of acute kidney injury and she was recently discharged. Additional Remarks Patient is alert, abd. pain is better, no SOB. Review of Systems General Constitutional: Fatigue Cardiovascular Cardiac: [place] Gastrointestinal Gastrointestinal: Abdominal Pain, Nausea & Vomiting Objective Data Data Vital Signs Date Time Temp Pulse Resp B/P (MAP) Pulse Ox O2 Delivery O2 Flow Rate FiO2 11/11/17 12:06 99.6 77 18 153/65 (94) 96 11/11/17 10:48 Room Air 21 11/11/17 10:27 Room Air 21 11/11/17 08:06 98.6 83 18 144/85 (104) 96 11/11/17 04:00 81 11/11/17 04:00 98.8 83 18 181/80 (113) 97 11/11/17 00:00 98.7 83 20 175/77 (109) 97 11/11/17 00:00 73 11/10/17 22:19 Room Air 11/10/17 20:00 96.8 85 18 141/65 (90) 96 11/10/17 20:00 81 -: 11/11/17 0721 11/11/17 0721 Physical Exam General Appearance: No Acute Distress, Comfortable Eyes Eye Exam: Pupils Equal Throat Throat Exam: Oral Mucosa [place] & Moist Neck Neck Exam: Neck Supple, Trachea Midline Pulmonary Resp Exam: Breath Sounds Equal, No Distress, Rhonchi, Decreased Bases Cardiology CV Exam: Regular, Normal Sinus Rhythm Gastrointestinal/Abdomen GI Exam: Soft, Non-Tender, Bowel Sounds Present Extremeties Extremities Exam: Trace Edema Neurologic Neuro Exam: Alert, Awake, Oriented Psychiatric Psych Exam: Appropriate Responses Assessment/Plan Assessment Summary: DELLA/Acute Renal Failure, Hypertension, CKD Stage III Problem List: (1) UTI (urinary tract infection) ICD Codes: N39.0 - Urinary tract infection, site not specified (2) Essential hypertension ICD Codes: I10 - Essential hypertension Status: Acute (3) Shortness of breath ICD Codes: R06.02 - Shortness of breath Status: Acute (4) Diabetes mellitus ICD Codes: E11.9 - Type 2 diabetes mellitus without complications Status: Chronic (5) Anemia ICD Codes: D64.9 - Anemia, unspecified Status: Acute (6) Hypertension Status: Chronic (7) DELLA (acute kidney injury) ICD Codes: N17.9 - Acute kidney failure, unspecified Status: Acute Plan Patient most likely has ATN causing DELLA. Has sever Gastroparesis, GI following. For colonoscopy in AM. BP is stable. Creatinine now normalize. I will sign off from Nephrology, call again if needed. Pita Huitron MD Nov 11, 2017 16:52
[2017-11-12] VITALS (9 sets, daily range): BP systolic 137–180; BP diastolic 64–76; PULSE 77–94; RESP 16–18; TEMP 98.7–99.9; O2SAT 94–97
[2017-11-12] MEDS: HEPARIN SODIUM - SQ 10,000 UNITS/ML VIAL SQ SCH ×2 (00:41→11:21)
[2017-11-12] MEDS: hydrALAZINE HCL 25 MG TAB PO SCH ×3 (05:29→20:34)
[2017-11-12] MEDS: PROCHLORPERAZINE MALEATE 10 MG TAB PO PRN ×4 (05:29→20:34)
[2017-11-12] MEDS: SODIUM CHLORIDE 0.9% FLUSH 10 ML FLUSH IV FLUSH SCH ×2 (07:45→20:34)
[2017-11-12] MEDS ORDERED: POTASSIUM CHLORIDE 10 MEQ CAP PO ONE (08:00)
[2017-11-12] MEDS: PANTOPRAZOLE SOD 40 MG DELAYED RELEASE TAB PO SCH (09:03)
[2017-11-12] MEDS: LISINOPRIL 20 MG TAB PO SCH (09:03)
[2017-11-12] MEDS: ERYTHROMYCIN EC 250 MG TABEC PO SCH ×2 (09:03→20:33)
[2017-11-12] MEDS: ASPIRIN EC 325 MG TABEC PO SCH (09:03)
[2017-11-12] MEDS: FERROUS SULFATE 325 MG (65 MG ELEMENTAL IRON) TAB PO SCH ×2 (09:03→20:34)
[2017-11-12] MEDS: DOCUSATE SODIUM 50 MG/SENNA 8.6 MG TAB PO SCH ×2 (09:04→20:34)
[2017-11-12] MEDS: INSULIN ASPART SUPPLEMENTAL SCALE SQ SCH ×4 (09:04→20:33)
[2017-11-12] MEDS: GEMFIBROZIL 600 MG TAB PO SCH (09:04)
[2017-11-12] MEDS: PRAVASTATIN SOD 10 MG TAB PO SCH (09:04)
--- NOTE | 2017-11-12 10:52 | HHI.FPPN ---
Subjective Remarks No acute events overnight. Pt doing well this AM. Pt sitting up on the side of the bed. She reports that she is breathing better and has less wheezing. She tolerated her breakfast well. She denies CP, SOB, abdominal pain, and N/V. (Kacey Clark MD R1) Objective Vitals Vital Signs Date Time Temp Pulse Resp B/P (MAP) Pulse Ox O2 Delivery O2 Flow Rate FiO2 11/12/17 09:14 96 21 11/12/17 08:00 99.3 94 18 166/65 (98) 96 11/12/17 05:44 96 11/12/17 04:00 99.9 91 16 180/76 (110) 94 11/12/17 04:00 77 11/12/17 04:00 Room Air 11/12/17 00:00 98.7 84 16 159/71 (100) 96 11/12/17 00:00 93 11/12/17 00:00 Room Air 11/11/17 21:30 Room Air 11/11/17 20:00 99.1 82 16 110/69 (83) 96 11/11/17 20:00 75 11/11/17 16:25 77 11/11/17 16:06 99.1 79 18 121/64 (83) 96 11/11/17 12:06 99.6 77 18 153/65 (94) 96 11/11/17 12:00 75 I/O 11/11/17 11/11/17 11/11/17 11/12/17 11/12/17 11/12/17 07:00 15:00 23:00 07:00 15:00 23:00 Intake Total 420 ml 480 ml Balance 420 ml 480 ml Intake Oral 420 ml 480 ml # Voids 7 2 # Bowel Movements 1 (Kacey Clark MD R1) Result Diagram: 11/11/1772011/11/17720 Objective Remarks GENERAL: Sitting up in bed, pleasant, NAD SKIN: Small areas of ecchymoses from previous IV sites. HEAD: NC/AT EYES: EOMI. No conjunctival injection or drainage. ENT: Mucous membranes moist, OP without erythema, tonsillar swelling, or exudate. NECK: Supple, no lymphadenopathy. No JVD. CARDIOVASCULAR: RRR, no m/r/g RESPIRATORY: Mild wheezes throughout, improved from prior exam GASTROINTESTINAL: Abdomen soft, non-distended, non-tender. No hepato- splenomegaly or palpable masses. MUSCULOSKELETAL: No edema noted. NEUROLOGICAL: Awake and alert. Oriented x3. 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 Admitted for ACS r/o, CHF exacerbation, sepsis secondary to UTI vs pyelonephritis. Discharge Planning Anticipate discharge home with [facility] for PT once blood pressure is stabilized (Kacey Clark MD R1) Attending Attestation Medical rounds reguarding this patient performed with Dr Mariza Clark this morning, detailed discussion relating to patients hospital course held, patient seen and examined, agree to documentation in this note, See Orders (French Salter MD) Problem List: (1) Pyelonephritis ICD Codes: N12 - Pyelonephritis Status: Acute Plan: ID consulted Urine culture growing Pseudomonas species, sensitive to Zosyn Completed Zosyn 3.375 gm IV q6h (11/03 until 11/09) WBC trending up and temp of 99.9, UA demonstrated large leukocyte esterases and bacteria Urine culture pending Will restart Zosyn 3.375 gm IV q6h Monitor renal function, I/Os History: Discontinued Linezolid 600mg IV q12h (10/15-11/03) and Levaquin 600mg PO q48h (-11/03) Blood culture no growth after 5 days (2) Anemia ICD Codes: D64.9 - Anemia, unspecified Status: Acute Plan: s/p 1 unit of RBCs transfusion 11/02, additional 1 unit on 11/05 Continue to monitor H/H, uptrending appropriately s/p 1 unit PRBCs 11/05 Hemoccult positive on 11/02 GI consulted EGD/colonoscopy 11/08 revealed erosive gastritis, colon polyps, diverticulosis, and internal hemorrhoids Biopsies showing duodenal mucosa with features suggestive of peptic duodenitis, mild active chronic gastritis, negative helicobacter; tubular adenoma of both ascending and sigmoid colon polyps Try to avoid aspirin and NSAIDS Continue protonix 40 mg po daily Colonoscopy in 3 years Small bowel follow-through was done to further assess cause of anemia- negative GI signed off, will follow up outpatient Consider transfusion to maintain Hgb > 8.0 Cautious with fluid overload Continue ferrous sulfate 325 mg bid (3) Gastroparesis ICD Codes: K31.84 - Gastroparesis Status: Acute Plan: GI consulted Gastric emptying study 11/07/17: severe gastroparesis Continue Erythromycin 250mg BID Likely complication from diabetes (4) Congestive heart failure ICD Codes: I50.9 - Heart failure, unspecified Status: Acute Plan: CXR no acute disease CTA revealed moderate congestive failure with trace b/l pleural effusions. Right hilar and mediastinal adenopathy, nonspecific but deserves followup BNP 594 Last echo: TERRELL from 09/21 showing normal left ventricular systolic function with an estimated EF of 60-65% Possibly diastolic component contributing to failure vs [id number] shunt given patient having PFO Monitor I/Os Cautious diuresis given DELLA and patient developing DELLA during her recent hospitalization when being diuresed (5) Chest pain ICD Codes: R07.9 - Chest pain, unspecified Status: Resolved Plan: Pleuritic chest pain. ACS r/o Troponin 0.30, 0.50, 0.59 EKG sinus tachycardia Cardiology consulted, recs appreciated - History of CVA/PRO: consider endovascular closure device in the future, contraindicated at this time with ongoing anemia and infection - Elevated troponins likely demand mediated secondary to anemia and renal injury Nuclear stress testing demonstrating small fixed defect at the apex, no reversible ischemic segment identified No further cardiac intervention at this time, cardiology signed off. (6) Diabetes mellitus ICD Codes: E11.9 - Type 2 diabetes mellitus without complications Status: Chronic Plan: -Held home insulin -Low dose ISS -Continue accuchecks ACHS (7) Hypertension Status: Chronic Plan: BP improved with Lisinopril 20 mg Continue home amlodipine 10mg PO daily Continue hydralazine 25 mg po tid (8) Dyslipidemia ICD Codes: E78.5 - Dyslipidemia Status: Chronic Plan: - Continue home pravastatin 10mg PO daily and gemfibrozil 300mg PO daily (9) Nutrition, metabolism, and development symptoms ICD Codes: R63.8 - Other symptoms and signs concerning food and fluid intake Plan: Diet: Diabetic Electrolytes: monitor and replete as needed Fluids: None DVT ppx: heparin 5000 units sq q12h GI ppx: Protonix 40 mg po daily (Kacey Clark MD R1) Problem Qualifiers (1) Congestive heart failure: Qualified Codes: I50.9 - Heart failure, unspecified Kacey Clark MD R1 Nov 12, 2017 10:52 French Salter MD Nov 13, 2017 10:53
[2017-11-12 11:06] LABS: AUTOMATED NEUTROPHIL # 7.2 TH/MM3 (1.8-7.7); BASOPHIL # 0.1 TH/MM3 (0-0.2); BASOPHIL % 0.5 % (0.0-2.0); EOSINOPHIL # 0.5 TH/MM3 (0-0.4); EOSINOPHIL % 4.1 % (0.0-4.0); HEMATOCRIT 25.3 % (35.0-46.0); HEMO FLAGS DIFF FINAL; LYMPH % 27.9 % (9.0-44.0); LYMPHOCYTE # 3.4 TH/MM3 (1.0-4.8); MEAN CELL VOLUME 84.5 FL (80.0-100.0); MEAN CORPUSCULAR HEMOGLOBIN 27.5 PG (27.0-34.0); MEAN CORPUSCULAR HGB CONC 32.5 % (32.0-36.0); MONO % 8.2 % (0.0-8.0); NEUT % 59.3 % (16.0-70.0); PLATELET COUNT 520 TH/MM3 (150-450); RED BLOOD COUNT 2.99 MIL/MM3 (4.00-5.30); RED CELL DISTRIBUTION WIDTH 15.9 % (11.6-17.2); WHITE BLOOD COUNT 12.2 TH/MM3 (4.0-11.0)
[2017-11-12 11:21] LABS: ALT (GPT) 8 U/L (10-53); ANION GAP 9 MEQ/L (5-15); AST (GOT) 8 U/L (15-37); BICARBONATE 24.2 MEQ/L (21.0-32.0); BLOOD UREA NITROGEN 9 MG/DL (7-18); CHLORIDE 105 MEQ/L (98-107); GLOMERULAR FILTRATION RATE 67 ML/MIN (>89); POTASSIUM 3.5 MEQ/L (3.5-5.1); SODIUM (NA) 138 MEQ/L (136-145)
[2017-11-12 11:24] LABS: ALKALINE PHOSPHATASE 85 U/L (45-117); TOTAL BILIRUBIN ADULT 0.3 MG/DL (0.2-1.0)
[2017-11-12 11:34] LABS: BACTERIA, URINE OCC /hpf; BLOOD, URINE TRACE (NEG); COMMENT (UR) CULTURE INDICATED; CULTURE IF INDICATED CULTURE INDICATED; GLUCOSE,URINE NEG (NEG); HYALINE CAST, URINE 1 /lpf (RARE); KETONE, URINE NEG (NEG); NITRITE,URINE NEG (NEG); SQUAMOUS EPITHELIAL CELL URINE 1 /hpf (0-5); TRANSITIONAL EPI CELLS, URINE <1 /hpf; URINE COLOR YELLOW (YELLW/STRAW)
[2017-11-12] MEDS: PIPERACIL-TAZO 3.375 GM PREMIX 50 ML IV SCH ×2 (17:15→21:59)
[2017-11-13] VITALS (7 sets, daily range): BP systolic 127–156; BP diastolic 61–71; PULSE 72–97; RESP 16–20; TEMP 98.5–100.1; O2SAT 94–97
[2017-11-13] MEDS: HEPARIN SODIUM - SQ 10,000 UNITS/ML VIAL SQ SCH ×3 (00:25→23:47)
[2017-11-13] MEDS: PIPERACIL-TAZO 3.375 GM PREMIX 50 ML IV SCH ×2 (04:35→10:54)
[2017-11-13] MEDS: PROCHLORPERAZINE MALEATE 10 MG TAB PO PRN ×3 (04:58→20:40)
[2017-11-13] MEDS: hydrALAZINE HCL 25 MG TAB PO SCH ×3 (04:59→20:40)
[2017-11-13 07:10] LABS: HEMATOCRIT 22.9 % (35.0-46.0); MEAN CELL VOLUME 83.3 FL (80.0-100.0); MEAN CORPUSCULAR HEMOGLOBIN 28.7 PG (27.0-34.0); MEAN CORPUSCULAR HGB CONC 34.5 % (32.0-36.0); PLATELET COUNT 546 TH/MM3 (150-450); RED BLOOD COUNT 2.74 MIL/MM3 (4.00-5.30); REVIEW FLAG FINAL
[2017-11-13 07:24] LABS: BICARBONATE 23.1 MEQ/L (21.0-32.0); POTASSIUM 3.3 MEQ/L (3.5-5.1)
[2017-11-13] MEDS: INSULIN ASPART SUPPLEMENTAL SCALE SQ SCH ×4 (08:00→20:42)
[2017-11-13] MEDS: FERROUS SULFATE 325 MG (65 MG ELEMENTAL IRON) TAB PO SCH ×2 (08:15→20:40)
[2017-11-13] MEDS: GEMFIBROZIL 600 MG TAB PO SCH (08:15)
[2017-11-13] MEDS: ASPIRIN EC 325 MG TABEC PO SCH (08:16)
[2017-11-13] MEDS: LISINOPRIL 20 MG TAB PO SCH (08:16)
[2017-11-13] MEDS: ERYTHROMYCIN EC 250 MG TABEC PO SCH ×2 (08:16→20:40)
[2017-11-13] MEDS: DOCUSATE SODIUM 50 MG/SENNA 8.6 MG TAB PO SCH ×2 (08:16→20:40)
[2017-11-13] MEDS: PANTOPRAZOLE SOD 40 MG DELAYED RELEASE TAB PO SCH (08:16)
[2017-11-13] MEDS: SODIUM CHLORIDE 0.9% FLUSH 10 ML FLUSH IV FLUSH SCH ×2 (08:17→20:40)
[2017-11-13] MEDS: PRAVASTATIN SOD 10 MG TAB PO SCH (08:17)
--- NOTE | 2017-11-13 10:18 | HHI.FPPN ---
Subjective Remarks No acute events overnight. Pt lying in bed, doing well. No complaints this AM. Afebrile. VSS. Denies CP, SOB, abdominal pain, and N/V. (Kacey Wood MD R1) Objective Vitals Vital Signs Date Time Temp Pulse Resp B/P (MAP) Pulse Ox O2 Delivery O2 Flow Rate FiO2 11/13/17 08:30 Room Air 2.00 21 11/13/17 08:00 99.1 90 18 148/65 (92) 97 11/13/17 04:00 72 11/13/17 04:00 98.8 88 16 156/67 (96) 94 11/13/17 04:00 Room Air 11/13/17 00:00 97 11/13/17 00:00 Room Air 11/13/17 00:00 98.5 84 16 127/61 (83) 94 11/12/17 22:18 21 11/12/17 20:25 Room Air 11/12/17 20:00 92 11/12/17 20:00 98.7 85 17 150/68 (95) 95 11/12/17 16:00 82 11/12/17 16:00 98.9 84 18 137/64 (88) 97 11/12/17 12:09 99.2 79 18 148/66 (93) 94 11/12/17 12:00 82 I/O 11/12/17 11/12/17 11/12/17 11/13/17 11/13/17 11/13/17 07:00 15:00 23:00 07:00 15:00 23:00 Intake Total 480 ml 290 ml 770 ml Balance 480 ml 290 ml 770 ml Intake Oral 480 ml 240 ml 720 ml IV Total 50 ml 50 ml # Voids 2 3 2 # Bowel Movements 0 (Kacey Wood MD R1) Result Diagram: 11/13/17 0620 11/13/17 0520 Objective Remarks GENERAL: pleasant, lying in bed, NAD SKIN: Small areas of ecchymoses from previous IV sites. HEAD: NC/AT EYES: EOMI. No conjunctival injection or drainage. ENT: Mucous membranes moist, OP without erythema, tonsillar swelling, or exudate. NECK: Supple, no lymphadenopathy. No JVD. CARDIOVASCULAR: RRR, no m/r/g RESPIRATORY: Mild wheezes throughout, improved from prior exam GASTROINTESTINAL: Abdomen soft, non-distended, non-tender. No hepato- splenomegaly or palpable masses. MUSCULOSKELETAL: No edema noted. NEUROLOGICAL: Awake and alert. Oriented x3. 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 Admitted for ACS r/o, CHF exacerbation, sepsis secondary to UTI vs pyelonephritis. Discharge Planning Anticipate discharge home with [facility] for PT (Kacey Wood MD R1) Attending Attestation THIS CASE WAS DISCUSSED WITH THE RESIDENT PHYSICIAN,DR Mariza WOOD. I HAVE REVIEWED THE RECORD,PATIENT SEEN AND EXAMINED AND AGREE WITH THE ABOVE NOTE AND PLAN OF CARE WAS DISCUSSED. I HAVE AUTHORIZED THE ORDERS. (French Salter MD) Problem List: (1) Pyelonephritis ICD Codes: N12 - Pyelonephritis Status: Acute Plan: ID consulted, recs appreciated Urine culture growing Pseudomonas species, sensitive to Zosyn Completed 13 day course of Zosyn 3.375 gm IV q6h (11/03 until 11/09) WBC trending up and temp of 99.9, UA demonstrated large leukocyte esterases and bacteria Urine culture pending, will consider reconsulted ID Continue Zosyn 3.375 gm IV q6h (restarted 11/12) Monitor renal function, I/Os History: Discontinued Linezolid 600mg IV q12h (10/15-11/03) and Levaquin 600mg PO q48h (-11/03) Blood culture no growth after 5 days (2) Anemia ICD Codes: D64.9 - Anemia, unspecified Status: Acute Plan: s/p 1 unit of RBCs transfusion 11/02, additional 1 unit on 11/05 Continue to monitor H/H, uptrending appropriately s/p 1 unit PRBCs 11/05 Hemoccult positive on 11/02 GI consulted EGD/colonoscopy 11/08 revealed erosive gastritis, colon polyps, diverticulosis, and internal hemorrhoids Biopsies showing duodenal mucosa with features suggestive of peptic duodenitis, mild active chronic gastritis, negative helicobacter; tubular adenoma of both ascending and sigmoid colon polyps Try to avoid aspirin and NSAIDS Continue Protonix 40 mg po daily Colonoscopy in 3 years Small bowel follow-through was done to further assess cause of anemia- negative GI signed off, will follow up outpatient Consider transfusion to maintain Hgb > 8.0 Cautious with fluid overload Continue ferrous sulfate 325 mg bid (3) Gastroparesis ICD Codes: K31.84 - Gastroparesis Status: Acute Plan: GI consulted Gastric emptying study 11/07/17: severe gastroparesis Continue Erythromycin 250mg BID Likely complication from diabetes (4) Chest pain ICD Codes: R07.9 - Chest pain, unspecified Status: Resolved Plan: Pleuritic chest pain. ACS r/o Troponin 0.30, 0.50, 0.59 EKG sinus tachycardia Cardiology consulted, recs appreciated - History of CVA/PRO: consider endovascular closure device in the future, contraindicated at this time with ongoing anemia and infection - Elevated troponins likely demand mediated secondary to anemia and renal injury Nuclear stress testing demonstrating small fixed defect at the apex, no reversible ischemic segment identified No further cardiac intervention at this time, cardiology signed off. (5) Congestive heart failure ICD Codes: I50.9 - Heart failure, unspecified Status: Acute Plan: CXR no acute disease CTA revealed moderate congestive failure with trace b/l pleural effusions. Right hilar and mediastinal adenopathy, nonspecific but deserves followup BNP 594 Last echo: TERRELL from 09/21 showing normal left ventricular systolic function with an estimated EF of 60-65% Possibly diastolic component contributing to failure vs [id number] shunt given patient having PFO Monitor I/Os Cautious diuresis given DELLA and patient developing DELLA during her recent hospitalization when being diuresed (6) Diabetes mellitus ICD Codes: E11.9 - Type 2 diabetes mellitus without complications Status: Chronic Plan: -Held home insulin -Low dose ISS -Continue accuchecks ACHS (7) Hypertension Status: Chronic Plan: BP improved with Lisinopril 20 mg Continue home amlodipine 10mg PO daily Continue hydralazine 25 mg po tid (8) Dyslipidemia ICD Codes: E78.5 - Dyslipidemia Status: Chronic Plan: - Continue home pravastatin 10mg PO daily and gemfibrozil 300mg PO daily (9) Nutrition, metabolism, and development symptoms ICD Codes: R63.8 - Other symptoms and signs concerning food and fluid intake Plan: Diet: Diabetic Electrolytes: monitor and replete as needed Fluids: None DVT ppx: heparin 5000 units sq q12h GI ppx: Protonix 40 mg po daily (Kacey Wood MD R1) Problem Qualifiers (1) Congestive heart failure: Qualified Codes: I50.9 - Heart failure, unspecified Kacey Wood MD R1 Nov 13, 2017 10:18 French Salter MD Nov 15, 2017 21:14
[2017-11-13] MEDS: ACETAMINOPHEN 325 MG TAB PO PRN (11:40)
[2017-11-13] MEDS ORDERED: PIPERACILLIN/TAZ 3.375 GM VIAL 3.375 GM in SODIUM CHLORIDE 0.9% INJ 50 ML IV SCH (16:00)
[2017-11-13] MEDS: PIPERACILLIN/TAZ 3.375 GM VIAL 3.375 GM in SODIUM CHLORIDE 0.9% INJ 100 ML IV SCH (16:31)
--- NOTE | 2017-11-13 19:27 | HHI.PR ---
Addendum to Inpatient Note Addendum Reason: Additional Documentation Additional Information Off-Service Note: Ms. 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 Urine culture grew Pseudomonas species , sensitive to Zosyn. ID consulted. Patient completed 13 day course fo Zosyn, ID signed off. However, pt WBC started to trend up and pt developed low grade- fever. Repeat UA demonstrated large leukocyte esterases. Preliminary Urine culture shows gram negative rods. Zosyn restarted 11/12. Await final urine culture. Consider reconsulting ID and adjusting abx if needed. Pt also found to be anemic secondary to GI bleed this hospital stay. GI consulted. EGD/ colonoscopy 11/08 revealed erosive gastritis, colon polyps, diverticulosis, and internal hemorrhoids. Biopsies showing duodenal mucosa with features suggestive of peptic duodenitis, mild active chronic gastritis, negative helicobacter; tubular adenoma of both ascending and sigmoid colon polyps. Pt found to have gastroparesis during small-bowel follow through. Pt started on Erythromycin. H/ H has been stable. GI signed off, will follow up outpatient. Cardiology was also consulted for CHF and chest pain. No intervention indicated during this hospital stay. Caution with diuresis. Cardiology signed off, will follow up outpatient. Anticipate discharge home once infection is cleared and BP stabilized. Pt will need home with [facility] for PT upon discharge. Kacey Clark MD R1 Nov 13, 2017 19:27
[2017-11-14] VITALS (10 sets, daily range): BP systolic 140–177; BP diastolic 63–79; PULSE 76–99; RESP 18–21; TEMP 97.9–98.7; O2SAT 96
[2017-11-14] MEDS: PIPERACILLIN/TAZ 3.375 GM VIAL 3.375 GM in SODIUM CHLORIDE 0.9% INJ 100 ML IV SCH ×5 (00:05→23:26)
[2017-11-14] MEDS: hydrALAZINE HCL 25 MG TAB PO SCH ×3 (06:09→21:43)
[2017-11-14] MEDS: PROCHLORPERAZINE MALEATE 10 MG TAB PO PRN ×2 (06:09→20:26)
[2017-11-14 07:11] LABS: HEMATOCRIT 24.9 % (35.0-46.0); MEAN CELL VOLUME 83.5 FL (80.0-100.0); MEAN CORPUSCULAR HGB CONC 33.5 % (32.0-36.0); PLATELET COUNT 710 TH/MM3 (150-450); RED BLOOD COUNT 2.98 MIL/MM3 (4.00-5.30); RED CELL DISTRIBUTION WIDTH 16.2 % (11.6-17.2); REVIEW FLAG FINAL; WHITE BLOOD COUNT 11.1 TH/MM3 (4.0-11.0)
[2017-11-14 07:35] LABS: POTASSIUM 3.3 MEQ/L (3.5-5.1)
[2017-11-14] MEDS: DOCUSATE SODIUM 50 MG/SENNA 8.6 MG TAB PO SCH ×2 (08:06→20:18)
[2017-11-14] MEDS: SODIUM CHLORIDE 0.9% FLUSH 10 ML FLUSH IV FLUSH SCH ×2 (08:06→20:23)
[2017-11-14] MEDS: PRAVASTATIN SOD 10 MG TAB PO SCH (08:06)
[2017-11-14] MEDS: LISINOPRIL 20 MG TAB PO SCH (08:06)
[2017-11-14] MEDS: ASPIRIN EC 325 MG TABEC PO SCH (08:07)
[2017-11-14] MEDS: ERYTHROMYCIN EC 250 MG TABEC PO SCH ×2 (08:07→20:18)
[2017-11-14] MEDS: FERROUS SULFATE 325 MG (65 MG ELEMENTAL IRON) TAB PO SCH ×2 (08:07→20:18)
[2017-11-14] MEDS: GEMFIBROZIL 600 MG TAB PO SCH (08:07)
[2017-11-14] MEDS: PANTOPRAZOLE SOD 40 MG DELAYED RELEASE TAB PO SCH (08:07)
[2017-11-14] MEDS: INSULIN ASPART SUPPLEMENTAL SCALE SQ SCH ×4 (08:44→20:19)
--- NOTE | 2017-11-14 11:26 | HHI.FPPN ---
Subjective Remarks Patient seen and examined today. Reports feeling well, no complaints/concerns. She states she has been walking and moving around well. Denies any fever/chills , nausea/vomiting, chest pain, shortness of breath, dysuria. She feels ready to go home. Objective Vitals Vital Signs Date Time Temp Pulse Resp B/P (MAP) Pulse Ox O2 Delivery O2 Flow Rate FiO2 11/14/17 08:00 98.7 88 18 152/67 (95) 96 11/14/17 04:00 97.9 98 21 177/79 (111) 96 11/14/17 04:00 Room Air 11/14/17 00:00 98.7 88 20 151/67 (95) 96 11/14/17 00:00 79 11/14/17 00:00 Room Air 11/13/17 21:00 Room Air 11/13/17 20:00 86 11/13/17 20:00 100.0 90 20 130/62 (84) 97 11/13/17 16:10 99.2 88 18 150/61 (90) 97 11/13/17 16:00 87 11/13/17 12:00 100.1 95 18 152/71 (98) 96 11/13/17 12:00 96 I/O 11/13/17 11/13/17 11/13/17 11/14/17 11/14/17 11/14/17 07:00 15:00 23:00 07:00 15:00 23:00 Intake Total 770 ml 50 ml 580 ml 340 ml Output Total 1200 ml Balance 770 ml 50 ml -620 ml 340 ml Intake Oral 720 ml 480 ml 240 ml IV Total 50 ml 50 ml 100 ml 100 ml Output Urine Total 1200 ml # Voids 2 3 # Bowel Movements 1 1 Result Diagram: 11/14/17 0625 11/14/17 0625 Objective Remarks GENERAL: pleasant, lying in bed, NAD CARDIOVASCULAR: RRR, no m/r/g RESPIRATORY: CTAB GASTROINTESTINAL: Abdomen soft, non-distended, non-tender. No hepato- splenomegaly or palpable masses. MUSCULOSKELETAL: No edema noted. BACK: No CVA tenderness NEUROLOGICAL: Awake and alert. Oriented x3. 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 Admitted for ACS r/o, CHF exacerbation, sepsis secondary to UTI vs pyelonephritis. Discharge Planning Anticipate discharge home with [facility] for PT Problem List: (1) Pyelonephritis ICD Codes: N12 - Pyelonephritis Status: Acute Plan: Urine culture growing Pseudomonas species, sensitive to Zosyn Completed 13 day course of Zosyn 3.375 gm IV q6h (11/03 until 11/09) -Repeat urine culture (11/12): <10K GNR -Zosyn 3.375 gm IV q6h (restarted 11/12) Monitor renal function, I/Os History: Discontinued Linezolid 600mg IV q12h (10/15-11/03) and Levaquin 600mg PO q48h (-11/03) Blood culture no growth after 5 days (2) Anemia ICD Codes: D64.9 - Anemia, unspecified Status: Acute Plan: s/p 1 unit of RBCs transfusion 11/02, additional 1 unit on 11/05 Continue to monitor H/H, uptrending appropriately s/p 1 unit PRBCs 11/05 Hemoccult positive on 11/02 EGD/colonoscopy 11/08 revealed erosive gastritis, colon polyps, diverticulosis, and internal hemorrhoids Biopsies showing duodenal mucosa with features suggestive of peptic duodenitis, mild active chronic gastritis, negative helicobacter; tubular adenoma of both ascending and sigmoid colon polyps Try to avoid aspirin and NSAIDS Continue Protonix 40 mg po daily Colonoscopy in 3 years Small bowel follow-through was done to further assess cause of anemia- negative GI signed off, will follow up outpatient Consider transfusion to maintain Hgb > 8.0 Cautious with fluid overload Continue ferrous sulfate 325 mg bid (3) Gastroparesis ICD Codes: K31.84 - Gastroparesis Status: Acute Plan: GI consulted Gastric emptying study 11/07/17: severe gastroparesis Continue Erythromycin 250mg BID Likely complication from diabetes (4) Congestive heart failure ICD Codes: I50.9 - Heart failure, unspecified Status: Acute Plan: CXR no acute disease CTA revealed moderate congestive failure with trace b/l pleural effusions. Right hilar and mediastinal adenopathy, nonspecific but deserves followup BNP 594 Last echo: TERRELL from 10/25 showing normal left ventricular systolic function with an estimated EF of 60-65% Possibly diastolic component contributing to failure vs [id number] shunt given patient having PFO Monitor I/Os Cautious diuresis given DELLA and patient developing DELLA during her recent hospitalization when being diuresed (5) Diabetes mellitus ICD Codes: E11.9 - Type 2 diabetes mellitus without complications Status: Chronic Plan: -Held home insulin -Low dose ISS -Continue accuchecks ACHS (6) Hypertension Status: Chronic Plan: BP improved with Lisinopril 20 mg Continue home amlodipine 10mg PO daily Continue hydralazine 25 mg po tid (7) Dyslipidemia ICD Codes: E78.5 - Dyslipidemia Status: Chronic Plan: - Continue home pravastatin 10mg PO daily and gemfibrozil 300mg PO daily (8) Nutrition, metabolism, and development symptoms ICD Codes: R63.8 - Other symptoms and signs concerning food and fluid intake Plan: Diet: Diabetic Electrolytes: monitor and replete as needed Fluids: PO DVT ppx: heparin 5000 units sq q12h GI ppx: Protonix 40 mg po daily Problem Qualifiers (1) Congestive heart failure: Qualified Codes: I50.9 - Heart failure, unspecified Sesar Bobo MD, R2 Nov 14, 2017 11:26
[2017-11-14] MEDS: HEPARIN SODIUM - SQ 10,000 UNITS/ML VIAL SQ SCH ×2 (13:45→23:26)
[2017-11-15] VITALS (7 sets, daily range): BP systolic 138–172; BP diastolic 62–80; PULSE 76–94; RESP 18–21; TEMP 98.1–98.5; O2SAT 93–97
[2017-11-15] MEDS: PIPERACILLIN/TAZ 3.375 GM VIAL 3.375 GM in SODIUM CHLORIDE 0.9% INJ 100 ML IV SCH ×2 (05:26→11:00)
[2017-11-15] MEDS: PROCHLORPERAZINE MALEATE 10 MG TAB PO PRN ×2 (05:29→11:32)
[2017-11-15] MEDS: hydrALAZINE HCL 25 MG TAB PO SCH ×2 (05:29→12:34)
[2017-11-15 07:25] LABS: BASOPHIL # 0.1 TH/MM3 (0-0.2); BASOPHIL % 0.7 % (0.0-2.0); BICARBONATE 21.5 MEQ/L (21.0-32.0); EOSINOPHIL # 0.6 TH/MM3 (0-0.4); EOSINOPHIL % 5.8 % (0.0-4.0); HEMO FLAGS DIFF FINAL; LYMPH % 25.7 % (9.0-44.0); LYMPHOCYTE # 2.7 TH/MM3 (1.0-4.8); MEAN CELL VOLUME 82.4 FL (80.0-100.0); MEAN CORPUSCULAR HEMOGLOBIN 29.2 PG (27.0-34.0); MEAN CORPUSCULAR HGB CONC 35.4 % (32.0-36.0); MONO % 10.9 % (0.0-8.0); NEUT % 56.9 % (16.0-70.0); PLATELET COUNT 747 TH/MM3 (150-450); RED CELL DISTRIBUTION WIDTH 16.4 % (11.6-17.2); WHITE BLOOD COUNT 10.6 TH/MM3 (4.0-11.0)
[2017-11-15 07:26] LABS: POTASSIUM 3.3 MEQ/L (3.5-5.1)
[2017-11-15] MEDS: INSULIN ASPART SUPPLEMENTAL SCALE SQ SCH ×2 (08:00→11:30)
[2017-11-15] MEDS: DOCUSATE SODIUM 50 MG/SENNA 8.6 MG TAB PO SCH (08:16)
[2017-11-15] MEDS: ERYTHROMYCIN EC 250 MG TABEC PO SCH (08:16)
[2017-11-15] MEDS: FERROUS SULFATE 325 MG (65 MG ELEMENTAL IRON) TAB PO SCH (08:16)
[2017-11-15] MEDS: PANTOPRAZOLE SOD 40 MG DELAYED RELEASE TAB PO SCH (08:16)
[2017-11-15] MEDS: PRAVASTATIN SOD 10 MG TAB PO SCH (08:16)
[2017-11-15] MEDS: GEMFIBROZIL 600 MG TAB PO SCH (08:17)
[2017-11-15] MEDS: ASPIRIN EC 325 MG TABEC PO SCH (08:17)
[2017-11-15] MEDS: LISINOPRIL 20 MG TAB PO SCH (08:17)
[2017-11-15] MEDS: SODIUM CHLORIDE 0.9% FLUSH 10 ML FLUSH IV FLUSH SCH (08:18)
[2017-11-15] MEDS: HEPARIN SODIUM - SQ 10,000 UNITS/ML VIAL SQ SCH (11:30)
--- NOTE | 2017-11-15 12:13 | HHI.FPPN ---
Subjective Remarks Patient seen and examined today. She states she is feeling well. No nausea, vomiting, fever, chills, abdominal pain, pain on urination, abnormal urine smell , change in bowel habits. She does states she is urinating more, however she notes that she is taking in significantly more water. She states she has been up and walking as much as she can. No other complaints today and is eager to go home. Objective Vitals Vital Signs Date Time Temp Pulse Resp B/P (MAP) Pulse Ox O2 Delivery O2 Flow Rate FiO2 11/15/17 11:22 94 21 11/15/17 08:20 Room Air 11/15/17 08:00 98.1 91 18 160/75 (103) 94 11/15/17 06:30 19 11/15/17 04:18 76 11/15/17 04:18 76 11/15/17 04:00 98.3 88 19 158/80 (106) 95 11/15/17 00:00 98.5 91 21 138/62 (87) 93 11/14/17 23:55 76 11/14/17 20:17 99 11/14/17 20:15 Room Air 11/14/17 20:00 98.2 94 19 150/70 (96) 96 11/14/17 18:01 98 11/14/17 16:51 98.7 85 18 140/63 (88) 96 11/14/17 13:36 Room Air 2.00 21 I/O 11/14/17 11/14/17 11/14/17 11/15/17 11/15/17 11/15/17 07:00 15:00 23:00 07:00 15:00 23:00 Intake Total 340 ml 100 ml 680 ml Output Total 1500 ml Balance 340 ml 100 ml -820 ml Intake Oral 240 ml 480 ml IV Total 100 ml 100 ml 200 ml Output Urine Total 1500 ml # Voids 3 # Bowel Movements 1 0 Result Diagram: 11/15/1761511/15/1716 Objective Remarks GENERAL: pleasant, lying in bed, NAD CARDIOVASCULAR: RRR, no m/r/g RESPIRATORY: CTAB GASTROINTESTINAL: Abdomen soft, non-distended, non-tender. No hepato- splenomegaly or palpable masses. MUSCULOSKELETAL: No edema noted. BACK: No CVA tenderness NEUROLOGICAL: Awake and alert. Oriented x3. 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 Admitted for ACS r/o, CHF exacerbation, sepsis secondary to UTI vs pyelonephritis. Discharge Planning Anticipate discharge home with [facility] for PT Problem List: (1) Pyelonephritis ICD Codes: N12 - Pyelonephritis Status: Acute Plan: Afebrile, last urine culture showed less than 10,000 gram-negative rods. Currently asymptomatic. Unlikely current infection. History: Discontinued Linezolid 600mg IV q12h (10/15-11/03) and Levaquin 600mg PO q48h (-11/03) Blood culture no growth after 5 days Urine culture growing Pseudomonas species, sensitive to Zosyn Completed 13 day course of Zosyn 3.375 gm IV q6h (11/03 until 11/09) (2) Anemia ICD Codes: D64.9 - Anemia, unspecified Status: Acute Plan: s/p 1 unit of RBCs transfusion 11/02, additional 1 unit on 11/05 Continue to monitor H/H, uptrending appropriately Hemoccult positive on 11/02 EGD/colonoscopy 11/08 revealed erosive gastritis, colon polyps, diverticulosis, and internal hemorrhoids Biopsies showing duodenal mucosa with features suggestive of peptic duodenitis, mild active chronic gastritis, negative helicobacter; tubular adenoma of both ascending and sigmoid colon polyps Try to avoid aspirin and NSAIDS Continue Protonix 40 mg po daily Colonoscopy in 3 years Small bowel follow-through was done to further assess cause of anemia- negative GI signed off, will follow up outpatient Consider transfusion to maintain Hgb > 8.0 Cautious with fluid overload Continue ferrous sulfate 325 mg bid (3) Gastroparesis ICD Codes: K31.84 - Gastroparesis Status: Acute Plan: GI consulted Gastric emptying study 11/07/17: severe gastroparesis Continue Erythromycin 250mg BID Likely complication from diabetes (4) Congestive heart failure ICD Codes: I50.9 - Heart failure, unspecified Status: Acute Plan: CXR no acute disease CTA revealed moderate congestive failure with trace b/l pleural effusions. Right hilar and mediastinal adenopathy, nonspecific but deserves followup BNP 594 Last echo: TERRELL from 09/21 showing normal left ventricular systolic function with an estimated EF of 60-65% Possibly diastolic component contributing to failure vs [id number] shunt given patient having PFO Monitor I/Os Cautious diuresis given DELLA and patient developing DELLA during her recent hospitalization when being diuresed (5) Diabetes mellitus ICD Codes: E11.9 - Type 2 diabetes mellitus without complications Status: Chronic Plan: -Held home insulin -Low dose ISS -Continue accuchecks ACHS (6) Hypertension Status: Chronic Plan: BP improved with Lisinopril 20 mg Continue home amlodipine 10mg PO daily Continue hydralazine 25 mg po tid (7) Dyslipidemia ICD Codes: E78.5 - Dyslipidemia Status: Chronic Plan: - Continue home pravastatin 10mg PO daily and gemfibrozil 300mg PO daily (8) Nutrition, metabolism, and development symptoms ICD Codes: R63.8 - Other symptoms and signs concerning food and fluid intake Plan: Diet: Diabetic Electrolytes: monitor and replete as needed Fluids: PO DVT ppx: heparin 5000 units sq q12h GI ppx: Protonix 40 mg po daily Problem Qualifiers (1) Congestive heart failure: Qualified Codes: I50.9 - Heart failure, unspecified Eric Hopper MD R1 Nov 15, 2017 12:13
[2017-11-15] MEDS ORDERED: PANT40TA3 PO (13:59)
[2017-11-15] MEDS ORDERED: LISI-515 PO (13:59)
--- NOTE | 2017-11-15 14:00 | HHI.DS ---
Discharge Summary Admission Date Nov 01, 2017 at 11:16 Admitting Diagnosis sepsis, chf (1) Pyelonephritis Diagnosis: Principal Plan: Urine culture growing Pseudomonas species, sensitive to Zosyn Completed 13 day course of Zosyn 3.375 gm IV q6h (11/03 until 11/09) -Repeat urine culture (11/12): <10K GNR -Zosyn 3.375 gm IV q6h (restarted 11/12) Monitor renal function, I/Os History: Discontinued Linezolid 600mg IV q12h (10/15-11/03) and Levaquin 600mg PO q48h (-11/03) Blood culture no growth after 5 days ICD Codes: N12 - Pyelonephritis Status: Acute (2) Anemia Diagnosis: Principal Plan: s/p 1 unit of RBCs transfusion 11/02, additional 1 unit on 11/05 Continue to monitor H/H, uptrending appropriately s/p 1 unit PRBCs 11/05 Hemoccult positive on 11/02 EGD/colonoscopy 11/08 revealed erosive gastritis, colon polyps, diverticulosis, and internal hemorrhoids Biopsies showing duodenal mucosa with features suggestive of peptic duodenitis, mild active chronic gastritis, negative helicobacter; tubular adenoma of both ascending and sigmoid colon polyps Try to avoid aspirin and NSAIDS Continue Protonix 40 mg po daily Colonoscopy in 3 years Small bowel follow-through was done to further assess cause of anemia- negative GI signed off, will follow up outpatient Consider transfusion to maintain Hgb > 8.0 Cautious with fluid overload Continue ferrous sulfate 325 mg bid ICD Codes: D64.9 - Anemia, unspecified Status: Acute (3) Gastroparesis Diagnosis: Principal Plan: GI consulted Gastric emptying study 11/07/17: severe gastroparesis Continue Erythromycin 250mg BID Likely complication from diabetes ICD Codes: K31.84 - Gastroparesis Status: Acute (4) Congestive heart failure Diagnosis: Secondary Plan: CXR no acute disease CTA revealed moderate congestive failure with trace b/l pleural effusions. Right hilar and mediastinal adenopathy, nonspecific but deserves followup BNP 594 Last echo: TERRELL from 09/21 showing normal left ventricular systolic function with an estimated EF of 60-65% Possibly diastolic component contributing to failure vs [id number] shunt given patient having PFO Monitor I/Os Cautious diuresis given DELLA and patient developing DELLA during her recent hospitalization when being diuresed ICD Codes: I50.9 - Heart failure, unspecified Status: Acute (5) Diabetes mellitus Diagnosis: Secondary Plan: -Held home insulin -Low dose ISS -Continue accuchecks ACHS ICD Codes: E11.9 - Type 2 diabetes mellitus without complications Status: Chronic (6) Hypertension Diagnosis: Secondary Plan: BP improved with Lisinopril 20 mg Continue home amlodipine 10mg PO daily Continue hydralazine 25 mg po tid Status: Chronic (7) Dyslipidemia Diagnosis: Secondary Plan: - Continue home pravastatin 10mg PO daily and gemfibrozil 300mg PO daily ICD Codes: E78.5 - Dyslipidemia Status: Chronic (8) Nutrition, metabolism, and development symptoms Plan: Diet: Diabetic Electrolytes: monitor and replete as needed Fluids: PO DVT ppx: heparin 5000 units sq q12h GI ppx: Protonix 40 mg po daily ICD Codes: R63.8 - Other symptoms and signs concerning food and fluid intake Brief History 67 yr old F with PMH of HTN, T2DM, CHF, and recent hospitalization from emphysematous pyelonephritis (E coli grown in urine culture)(s/p nephrostomy placement 09/27-10/05) who presents to the ED for SOB and chest pain. Patient reports that she woke up at 2am this morning with tightness in her chest and gasping for air. She states the tightness is located on her right side of her chest and radiates turns to a sharp 9/10 pain as it radiates to the left side underneath her left breast. She reports that the pain is worse with deep breaths and with coughing. The SOB and chest pain is slightly better with sitting up. She endorses nausea, TURNER, dizziness, and had 2 episodes of nonbloody vomiting yesterday. She also endorses fever and chills. She endorses b/l flank pain, but reports that the pain has been improving. She denies dysuria. She was recently discharged on 10/19 with Levaquin and Zyvox. She reports being compliant with her medications. She was discharged from [facility] for rehab 1 day ago. CBC/BMP: 11/15/17 0616 11/15/17 0616 Significant Findings Laboratory Tests Test 11/13/17 05:20 11/13/17 06:20 11/14/17 06:25 11/15/17 06:16 Creatinine 1.12 MG/DL (0.50-1.00) 1.24 MG/DL (0.50-1.00) 1.11 MG/DL (0.50-1.00) Random Glucose 131 MG/DL (74-106) 157 MG/DL (74-106) 144 MG/DL (74-106) Calcium Level 8.4 MG/DL (8.5-10.1) Potassium Level 3.3 MEQ/L (3.5-5.1) 3.3 MEQ/L (3.5-5.1) 3.3 MEQ/L (3.5-5.1) Estimat Glomerular Filtration Rate 59 ML/MIN (>89) 53 ML/MIN (>89) 60 ML/MIN (>89) Red Blood Count 2.74 MIL/MM3 (4.00-5.30) 2.98 MIL/MM3 (4.00-5.30) 2.80 MIL/MM3 (4.00-5.30) Hemoglobin 7.9 GM/DL (11.6-15.3) 8.3 GM/DL (11.6-15.3) 8.2 GM/DL (11.6-15.3) Hematocrit 22.9 % (35.0-46.0) 24.9 % (35.0-46.0) 23.0 % (35.0-46.0) Platelet Count 546 TH/MM3 (150-450) 710 TH/MM3 (150-450) 747 TH/MM3 (150-450) White Blood Count 11.1 TH/MM3 (4.0-11.0) Monocytes (%) (Auto) 10.9 % (0.0-8.0) Eosinophils (%) (Auto) 5.8 % (0.0-4.0) Monocytes # (Auto) 1.2 TH/MM3 (0-0.9) Eosinophils # (Auto) 0.6 TH/MM3 (0-0.4) PE at Discharge GENERAL: pleasant, lying in bed, NAD CARDIOVASCULAR: RRR, no m/r/g RESPIRATORY: CTAB GASTROINTESTINAL: Abdomen soft, non-distended, non-tender. No hepato- splenomegaly or palpable masses. MUSCULOSKELETAL: No edema noted. BACK: No CVA tenderness NEUROLOGICAL: Awake and alert. Oriented x3. Hospital Course Ms. 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 Urine culture grew Pseudomonas species , sensitive to Zosyn. ID consulted. Patient completed 13 day course fo Zosyn, ID signed off. However, pt WBC started to trend up and pt developed low grade- fever. Repeat UA demonstrated large leukocyte esterases. Preliminary Urine culture shows gram negative rods. Zosyn restarted 11/12. Pt also found to be anemic secondary to GI bleed this hospital stay. GI consulted. EGD/colonoscopy 11/08 revealed erosive gastritis, colon polyps, diverticulosis, and internal hemorrhoids. Biopsies showing duodenal mucosa with features suggestive of peptic duodenitis, mild active chronic gastritis, negative helicobacter; tubular adenoma of both ascending and sigmoid colon polyps. Pt found to have gastroparesis during small-bowel follow through. Pt started on Erythromycin. H/ H has been stable. GI signed off, will follow up outpatient. Cardiology was also consulted for CHF and chest pain. No intervention indicated during this hospital stay. Caution with diuresis. Cardiology signed off, will follow up outpatient. H&H had remained stable and patient had remained afebrile prior to discharge. Pt Condition on Discharge: Stable Discharge Disposition: Disch w/ Home Health Serv Discharge Instructions DIET: Follow Instructions for: As Tolerated, No Restrictions Activities you can perform: Regular-No Restrictions Follow up Referrals: Appointment for Follow Up @ GASTROENTEROLOGY Appointment for Follow Up @ UROLOGY Gastroenterology - 1 Week PCP Follow-up - 1 Week PCP Follow-up @ [facility] - 1 Week New Medications: Lisinopril (Lisinopril) 20 Mg Tab 20 MG PO DAILY, #30 TAB Pantoprazole (Pantoprazole) 40 Mg Tab 40 MG PO DAILY, #30 TAB Continued Medications: Acetaminophen (Eq Acetaminophen) 325 Mg Tab 650 MG PO BID, #30 TAB Amlodipine (Amlodipine) 10 Mg Tab 10 MG PO DAILY for Blood Pressure Management, #60 TAB [address] (Aspirin EC) 325 Mg Tabdr 325 MG PO DAILY, #30 TAB Ferrous Sulfate (Ferosul) 325 Mg (65 Mg Iron) Tablet 325 MG PO BID, #60 Gemfibrozil (Lopid) 600 Mg Tab 300 MG PO DAILY, #30 TAB Take 30 minutes prior to meal Insulin Aspart Inj (Novolog Inj) 100 Unit/Ml Inj 1 UNIT SQ ACHS SLIDING SCALE, #1 INJECTION Insulin Detemir Inj (Levemir Inj) 1,000 unit/ 10 ML Vial 10 UNITS SQ HS, #1 INJECTION Do not mix with any other Insulin. Multivitamin with Folic Acid (Thera Tablet) 400 Mcg Tablet 1 TAB PO DAILY, #30 TAB Mupirocin Nasal Oint (Bactroban Nasal Oint) 2% Oint 1 APPLIC EACH NARE BID, #1 TUBE Single-use tubes. Ondansetron Odt (Zofran Odt) 4 Mg Tab 4 MG SL Q8HR PRN for Nausea/Vomiting, #20 TAB 0 Refills Oxycodone (Oxycodone) 5 Mg Tab 5 MG PO Q6H PRN for PAIN SCALE 6 TO 10, #7 TAB Pravastatin (Pravastatin) 10 Mg Tab 10 MG PO DAILY for Cholesterol Management, #30 TAB 0 Refills Sennosides-Docusate Sodium (Gnp Senna Plus 8.6-50 mg) 8.6 Mg-50 Mg Tab 1 TAB PO BID, #60 TAB Discontinued Medications: Labetalol (Labetalol) 100 Mg Tab 100 MG PO Q12HR, #60 TAB Levofloxacin (Levaquin) 500 Mg Tablet 500 MG PO Q48H, #5 TAB Take every other day starting 10/21. PLEASE REMIND YOUR PHYSICIANS THAT DOSAGE SHOULD BE ADJUSTED BASED ON KIDNEYS Linezolid (Zyvox) 600 Mg Tab 600 MG PO Q12HR, #32 TAB Eric Hopper MD R1 Nov 15, 2017 14:00
--- NOTE | 2017-11-15 14:00 | HHI.DCPOC ---
Discharge Care Plan Diagnosis: (1) Gastroparesis (2) UTI (urinary tract infection) Goals to Promote Your Health * To prevent worsening of your condition and complications * To maintain your health at the optimal level Directions to Meet Your Goals Take your medications as prescribed Follow your dietary instruction Follow activity as directed Keep your appointments as scheduled Take your immunizations and boosters as scheduled If your symptoms worsen call your PCP, if no PCP go to Urgent Care Center or Emergency Room Smoking is Dangerous to Your Health. Avoid second hand smoke Call the 24-hour hour crisis hotline for domestic abuse at Eric Hopper MD R1 Nov 15, 2017 14:00
[2017-11-17] MEDS ORDERED: ERYT250T13 PO (12:58)
[2017-11-17] MEDS ORDERED: IPRASOL NEB (12:58)
[2017-11-17] MEDS ORDERED: NEBULIZER1 MI1 (12:58)
== END 2017-11-15 17:00 | disposition home health service (06) | DRG 690 ==
LOC: NEPE 08:09 → NEDA 11:16 → N04B 18:20
PROVIDERS: ADMIT Family Medicine; ATTEND Family Medicine
PROC: 30233N1 Transfusion of Nonautologous Red Blood Cells into Peripheral Vein, Percutaneous Approach (ICD-10-PCS; principal; 2017-11-05)
PROC: 0DB68ZX Excision of Stomach, Via Natural or Artificial Opening Endoscopic, Diagnostic (ICD-10-PCS; 2017-11-08)
PROC: 0DBK8ZX Excision of Ascending Colon, Via Natural or Artificial Opening Endoscopic, Diagnostic (ICD-10-PCS; 2017-11-08)
PROC: 0DBN8ZX Excision of Sigmoid Colon, Via Natural or Artificial Opening Endoscopic, Diagnostic (ICD-10-PCS; 2017-11-08)
PROC: 0DB98ZX Excision of Duodenum, Via Natural or Artificial Opening Endoscopic, Diagnostic (ICD-10-PCS; 2017-11-08 09:55)
DX: N12 Tubulo-interstitial nephritis, not specified as acute or chronic (principal); N17.0 Acute kidney failure with tubular necrosis; I13.0 Hypertensive heart and chronic kidney disease with heart failure and stage 1 through stage 4 chronic kidney disease, or unspecified chronic kidney disease; I50.30 Unspecified diastolic (congestive) heart failure; J44.0 Chronic obstructive pulmonary disease with (acute) lower respiratory infection; K92.2 Gastrointestinal hemorrhage, unspecified; E11.22 Type 2 diabetes mellitus with diabetic chronic kidney disease; Q21.1 Atrial septal defect; E11.43 Type 2 diabetes mellitus with diabetic autonomic (poly)neuropathy; K31.84 Gastroparesis; I27.20 Pulmonary hypertension, unspecified; N18.3 Chronic kidney disease, stage 3 (moderate); E78.5 Hyperlipidemia, unspecified; R59.0 Localized enlarged lymph nodes; D63.8 Anemia in other chronic diseases classified elsewhere; Z86.73 Personal history of transient ischemic attack (TIA), and cerebral infarction without residual deficits; I25.9 Chronic ischemic heart disease, unspecified; Z87.440 Personal history of urinary (tract) infections; B96.5 Pseudomonas (aeruginosa) (mallei) (pseudomallei) as the cause of diseases classified elsewhere; K63.5 Polyp of colon; K64.8 Other hemorrhoids; K57.30 Diverticulosis of large intestine without perforation or abscess without bleeding; K29.60 Other gastritis without bleeding; K59.00 Constipation, unspecified; D64.89 Other specified anemias; Z79.4 Long term (current) use of insulin; K29.50 Unspecified chronic gastritis without bleeding
CPT/HCPCS: 36430; 71010; 71275; 74250; 76937; 78264; 78452; 80048; 80053; 81001; 82948; 83605; 83880; 84484; 85014; 85018; 85025; 85027; 85610; 85730; 86850; 86900; 86901; 86920; 87040; 87070; 87077; 87086; 87186; 87205; 88305; 88312; 93005; 93017; 94620; 94640; 94664; 96365; 96375; A9502; A9541; J0330; J1100; J1644; J1815; J1940; J2020; J2270; J2405; J2543; J2765; J2785; J3010; J7030; J7050; J7120; J7613; P9016; Q0164; Q9967

== ENCOUNTER 2017-11-21 05:19 | Emergency (ER) | payer MEDICARE ==
[~2017-11-21] VITALS: Ht 157.5 cm; Wt 72.0 kg
[~2017-11-21 05:19] MED LIST changes: -Albuterol-Ipratropium Neb NEB; +ERYT250T13 PO; +IPRASOL NEB; -LABE100T2 PO; -LACT PO; -LEVA500T33 PO; +LISI-515 PO; +NEBULIZER1 MI1; +PANT40TA3 PO; -ZYVO600T PO
[2017-11-21 05:20] VITALS: BP 184/78; PULSE 92; RESP 16; TEMP 97.7; O2SAT 98
--- NOTE | 2017-11-21 05:53 | PD ---
HPI Chief Complaint: Complaint Time Seen by Provider: 05:32 Travel History International Travel<30 days: No Contact w/Intl Traveler<30days: No Traveled to known affect area: No History of Present Illness HPI This is a 67-year-old female who has a history of recent hospitalization for pyelonephritis who presents to the emergency department with 1 day of dysuria, urinary urgency and frequency, constant, moderate severity associated with lower abdominal cramping. She denies any fevers or chills and denies any nausea or vomiting. She is concerned that she's been in the hospital over the past few months for pyelonephritis. She is currently off antibiotic therapy. PFSH Past Medical History Arthritis: No Asthma: No Autoimmune Disease: No Blood Disorders: No Anxiety: No Depression: No Heart Rhythm Problems: No Cancer: No Cardiovascular Problems: Yes High Cholesterol: Yes Chemotherapy: No Chest Pain: Yes (with this admission ) Congestive Heart Failure: Yes (with previous admission ) COPD: No Cerebrovascular Accident: No Diabetes: Yes Patient Takes Glucophage: No Diminished Hearing: No Endocrine: Yes Gastrointestinal Disorders: Yes (abdominal pain on right) GERD: No Genitourinary: Yes Headaches: Yes Hiatal Hernia: No Heparin Induced Thrombocytopen: No Hypertension: Yes Immune Disorder: No Implanted Vascular Access Dvce: No Kidney Stones: No Musculoskeletal: No Neurologic: Yes Psychiatric: No Reproductive: No Respiratory: Yes Immunizations Current: No Migraines: No Radiation Therapy: No Renal Failure: No Seizures: No Sickle Cell Disease: No Sleep Apnea: No Thyroid Disease: No Ulcer: No Menopausal: Yes Past Surgical History Abdominal Surgery: No AICD: No Arteriovenous Shunt: No Cardiac Surgery: No Section: Yes Ear Surgery: No Endocrine Surgery: No Eye Surgery: No Genitourinary Surgery: Yes (STENT RIGHT KIDNEY) Gynecologic Surgery: Yes ( 1990) Insulin Pump: No Joint Replacement: No Neurologic Surgery: No Oral Surgery: No Pacemaker: No Thoracic Surgery: No Other Surgery: Yes (CSECT) Social History Alcohol Use: No Tobacco Use: No Substance Use: No Allergies-Medications (Allergen,Severity, Reaction): Coded Allergies: metformin (Verified Allergy, Severe, Numbness, 11/21/17) clonidine (Verified Allergy, Unknown, 11/21/17) chest pain Reported Meds & Prescriptions Reported Meds & Active Scripts Active Erythromycin Base 250 Mg Tab 250 Mg PO BID Nebulizer 1 Mis Mis Ea .ROUTE DIRECTED Duoneb (Ipratropium-Albuterol Neb) 0.5-2.5 Mg/3 Ml Neb 3 Ml NEB BID Pantoprazole (Pantoprazole Sodium) 40 Mg Tab 40 Mg PO DAILY Lisinopril 20 Mg Tab 20 Mg PO DAILY Zofran Odt (Ondansetron Odt) 4 Mg Tab 4 Mg SL Q8HR PRN Pravastatin 10 Mg Tab 10 Mg PO DAILY Thera Tablet (Multivitamin with Folic Acid) 400 Mcg Tablet 1 Tab PO DAILY Novolog Inj (Insulin Aspart) 100 Unit/Ml Inj 1 Unit SQ ACHS SLIDING SCALE Gnp Senna Plus 8.6-50 mg (Sennosides-Docusate Sodium) 8.6 Mg-50 Mg Tab 1 Tab PO BID Bactroban Nasal Oint (Mupirocin Nasal Oint) 2% Oint 1 Applic EACH NARE BID Single-use tubes. Eq Acetaminophen (Acetaminophen) 325 Mg Tab 650 Mg PO BID Oxycodone (Oxycodone HCl) 5 Mg Tab 5 Mg PO Q6H PRN Aspirin EC (Aspirin) 325 Mg Tabdr 325 Mg PO DAILY Lopid (Gemfibrozil) 600 Mg Tab 300 Mg PO DAILY Take 30 minutes prior to meal Levemir Inj (Insulin Detemir) 1,000 unit/ 10 ML Vial 10 Units SQ HS Do not mix with any other Insulin. Ferosul (Ferrous Sulfate) 325 Mg (65 Mg Iron) Tablet 325 Mg PO BID Amlodipine (Amlodipine Besylate) 10 Mg Tab 10 Mg PO DAILY Review of Systems Except as stated in HPI: all other systems reviewed are Neg Physical Exam Narrative GENERAL:Well appearing, no acute distress SKIN: Focused skin assessment warm and dry. HEAD: Atraumatic. Normocephalic. EYES: Pupils equal and round. No injection or drainage. ENT: Moist mucous membranes NECK: Trachea midline. CARDIOVASCULAR: Regular rate and rhythm. No murmur appreciated. RESPIRATORY: Clear to auscultation. Breath sounds equal bilaterally. GASTROINTESTINAL: Abdomen soft, mildly tender to palpation in the suprapubic region with no rebound or guarding. : No CVA tenderness. MUSCULOSKELETAL: No obvious deformities. NEUROLOGICAL: Awake and alert. No obvious cranial nerve deficits. Moving all extremities. PSYCHIATRIC: Appropriate mood and affect; insight and judgment normal. Data Data Last Documented VS Vital Signs Date Time Temp Pulse Resp B/P (MAP) Pulse Ox O2 Delivery O2 Flow Rate FiO2 11/21/17 05:20 97.7 92 16 184/78 (113) 98 Orders Orders Complete Blood Count With Diff (11/21/17 05:36) Basic Metabolic Panel (Bmp) (11/21/17 05:36) Urinalysis - C+S If Indicated (11/21/17 05:36) Potassium Chloride Powder (Kcl Powder) (11/21/17 06:45) Cephalexin (Keflex) (11/21/17 06:45) Labs Laboratory Tests Test 11/21/17 05:40 White Blood Count 12.5 TH/MM3 Red Blood Count 3.49 MIL/MM3 Hemoglobin 9.8 GM/DL Hematocrit 29.1 % Mean Corpuscular Volume 83.2 FL Mean Corpuscular Hemoglobin 28.1 PG Mean Corpuscular Hemoglobin Concent 33.8 % Red Cell Distribution Width 17.0 % Platelet Count 755 TH/MM3 Mean Platelet Volume 6.7 FL Neutrophils (%) (Auto) 52.6 % Lymphocytes (%) (Auto) 34.7 % Monocytes (%) (Auto) 5.8 % Eosinophils (%) (Auto) 5.7 % Basophils (%) (Auto) 1.2 % Neutrophils # (Auto) 6.6 TH/MM3 Lymphocytes # (Auto) 4.3 TH/MM3 Monocytes # (Auto) 0.7 TH/MM3 Eosinophils # (Auto) 0.7 TH/MM3 Basophils # (Auto) 0.1 TH/MM3 CBC Comment DIFF FINAL Differential Comment Urine Color COLORLESS Urine Turbidity CLEAR Urine pH 6.5 Urine Specific [place] 1.003 Urine Protein 100 mg/dL Urine Glucose (UA) NEG mg/dL Urine Ketones NEG mg/dL Urine Occult Blood SMALL Urine Nitrite NEG Urine Bilirubin NEG Urine Urobilinogen LESS THAN 2.0 MG/DL Urine Leukocyte Esterase MOD Urine RBC 1 /hpf Urine WBC 8 /hpf Urine Squamous Epithelial Cells <1 /hpf Microscopic Urinalysis Comment CULT NOT INDICATED Blood Urea Nitrogen 17 MG/DL Creatinine 1.07 MG/DL Random Glucose 203 MG/DL Calcium Level 8.8 MG/DL Sodium Level 133 MEQ/L Potassium Level 2.9 MEQ/L Chloride Level 100 MEQ/L Carbon Dioxide Level 21.1 MEQ/L Anion Gap 12 MEQ/L Estimat Glomerular Filtration Rate 62 ML/MIN MDM Medical Decision Making Medical Screen Exam Complete: Yes Emergency Medical Condition: Yes Interpretation(s) Afebrile Mild leukocytosis Mild hypokalemia 8 white blood cells in the urine with moderate leukocyte esterase Differential Diagnosis Urinary tract infection, pyelonephritis, sepsis Narrative Course This is a 67-year-old female who presents to the emergency department with dysuria, frequency and urgency. She's had recurrent urinary tract infections and a recent admission for pyelonephritis. Labs demonstrate a mild leukocytosis and hypokalemia. I think patient is appropriate for outpatient management. I will treat her empirically with Keflex. Otherwise she is nontoxic appearing and I think she can follow-up with her primary care physician. Diagnosis Primary Impression: UTI (urinary tract infection) Qualified Codes: N30.00 - Acute cystitis without hematuria Patient Instructions: General Instructions Additional Instructions: If you develop fever, persistent vomiting, back pain, or inability to eat return to the emergency department as your urine infection may have progressed to a kidney infection. Complete your antibiotics as prescribed. Stay well hydrated with Gatorade or water. Followup with your primary care physician in 2-3 days if your symptoms have not resolved. Med/Other Pt SpecificInfo: Prescription(s) given Scripts Cephalexin (Keflex) 500 Mg Cap 500 MG PO Q12H for Infection for 7 Days, #14 CAP 0 Refills Prov: Rozina Grove MD 11/21/17 Disposition: 01 DISCHARGE HOME Condition: Stable Rozina Grove MD Nov 21, 2017 05:53
[2017-11-21 06:08] LABS: AUTOMATED NEUTROPHIL # 6.6 TH/MM3 (1.8-7.7); BASOPHIL # 0.1 TH/MM3 (0-0.2); BASOPHIL % 1.2 % (0.0-2.0); EOSINOPHIL # 0.7 TH/MM3 (0-0.4); EOSINOPHIL % 5.7 % (0.0-4.0); HEMATOCRIT 29.1 % (35.0-46.0); HEMOGLOBIN 9.8 GM/DL (11.6-15.3); LYMPH % 34.7 % (9.0-44.0); LYMPHOCYTE # 4.3 TH/MM3 (1.0-4.8); MEAN CELL VOLUME 83.2 FL (80.0-100.0); MEAN CORPUSCULAR HEMOGLOBIN 28.1 PG (27.0-34.0); MEAN CORPUSCULAR HGB CONC 33.8 % (32.0-36.0); MEAN PLATELET VOLUME 6.7 FL (7.0-11.0); MONO % 5.8 % (0.0-8.0); MONOCYTE # 0.7 TH/MM3 (0-0.9); NEUT % 52.6 % (16.0-70.0); PLATELET COUNT 755 TH/MM3 (150-450); RED BLOOD COUNT 3.49 MIL/MM3 (4.00-5.30); WHITE BLOOD COUNT 12.5 TH/MM3 (4.0-11.0)
[2017-11-21 06:13] LABS: BILIRUBIN, URINE NEG (NEG); BLOOD, URINE SMALL (NEG); GLUCOSE,URINE NEG (NEG); KETONE, URINE NEG (NEG); NITRITE,URINE NEG (NEG); PH, URINE 6.5 (5.0-8.5); SQUAMOUS EPITHELIAL CELL URINE <1 /hpf (0-5); URINE COLOR COLORLESS (YELLW/STRAW); URINE LEUKOCYTE ESTERASE MOD (NEG)
[2017-11-21 06:30] LABS: BICARBONATE 21.1 MEQ/L (21.0-32.0); CALCIUM 8.8 MG/DL (8.5-10.1); CREATININE 1.07 MG/DL (0.50-1.00)
[2017-11-21] MEDS ORDERED: CEPH-460 PO (06:43)
[2017-11-21] MEDS ORDERED: CEPHALEXIN MONOHYDRATE 500 MG CAP PO ONE (06:45)
[2017-11-21] MEDS ORDERED: POTASSIUM CHLORIDE 20 MEQ PWD PACKET PO ONE (06:45)
== END 2017-11-21 07:04 | disposition home or self-care (01) ==
LOC: NEPC 05:19
DX: N30.00 Acute cystitis without hematuria (principal); E87.6 Hypokalemia; E78.00 Pure hypercholesterolemia, unspecified; I11.0 Hypertensive heart disease with heart failure; I50.9 Heart failure, unspecified; E11.9 Type 2 diabetes mellitus without complications
CPT/HCPCS: 80048; 81001; 85025; 99283

== ENCOUNTER 2017-11-26 06:05 | Inpatient (IN) | payer MEDICARE ==
[~2017-11-26] VITALS: Ht 157.5 cm; Wt 73.7 kg
[2017-11-26] VITALS (9 sets, daily range): BP systolic 155–211; BP diastolic 71–89; PULSE 75–98; RESP 16–18; TEMP 98.2–99; O2SAT 97–99
[~2017-11-26 06:05] MED LIST changes: +CEPH-460 PO
--- NOTE | 2017-11-26 07:09 | PD ---
HPI Chief Complaint: Complaint Time Seen by Provider: 06:55 Travel History International Travel<30 days: No Contact w/Intl Traveler<30days: No Traveled to known affect area: No History of Present Illness HPI This is a 67-year-old female with history of hypertension, diabetes mellitus, dyslipidemia, previous acute ischemic stroke, presents today with complaints of urinary frequency and dysuria. The patient has had multiple UTIs. She's had multiple resistant UTIs which resulted in hospitalization in the past. She denies any fevers, chills. She states that she was seen on for a urinary tract infection and started on Keflex. She reports the Keflex was prescribed twice daily however over the last 2 days she's noted return of dysuria. She states that she switched her antibiotics to 4 times a day and it improved however she still is having dysuria. There is no flank pain. There is no nausea vomiting diarrhea. There are no other complaints at the time my examination. PFSH Past Medical History Arthritis: No Asthma: No Autoimmune Disease: No Blood Disorders: No Anxiety: No Depression: No Heart Rhythm Problems: No Cancer: No Cardiovascular Problems: Yes High Cholesterol: Yes Chemotherapy: No Chest Pain: Yes Congestive Heart Failure: Yes COPD: No Cerebrovascular Accident: No Diabetes: Yes Patient Takes Glucophage: No Diminished Hearing: No Endocrine: Yes Gastrointestinal Disorders: Yes GERD: No Genitourinary: Yes Headaches: Yes Hiatal Hernia: No Heparin Induced Thrombocytopen: No Hypertension: Yes Immune Disorder: No Implanted Vascular Access Dvce: No Kidney Stones: No Musculoskeletal: No Neurologic: Yes Psychiatric: No Reproductive: No Respiratory: Yes Immunizations Current: No Migraines: No Radiation Therapy: No Renal Failure: No Seizures: No Sickle Cell Disease: No Sleep Apnea: No Thyroid Disease: No Ulcer: No Menopausal: Yes Past Surgical History Abdominal Surgery: No AICD: No Arteriovenous Shunt: No Cardiac Surgery: No Section: Yes Ear Surgery: No Endocrine Surgery: No Eye Surgery: No Genitourinary Surgery: Yes (STENT RIGHT KIDNEY) Gynecologic Surgery: Yes ( 1990) Insulin Pump: No Joint Replacement: No Neurologic Surgery: No Oral Surgery: No Pacemaker: No Thoracic Surgery: No Other Surgery: Yes (CSECT) Social History Alcohol Use: No Tobacco Use: No Substance Use: No Allergies-Medications (Allergen,Severity, Reaction): Coded Allergies: metformin (Verified Allergy, Severe, Numbness, 11/26/17) clonidine (Verified Allergy, Unknown, 11/26/17) chest pain Reported Meds & Prescriptions Reported Meds & Active Scripts Active Keflex (Cephalexin) 500 Mg Cap 500 Mg PO Q12H 7 Days Erythromycin Base 250 Mg Tab 250 Mg PO BID Nebulizer 1 Mis Mis Ea .ROUTE DIRECTED Duoneb (Ipratropium-Albuterol Neb) 0.5-2.5 Mg/3 Ml Neb 3 Ml NEB BID Pantoprazole (Pantoprazole Sodium) 40 Mg Tab 40 Mg PO DAILY Lisinopril 20 Mg Tab 20 Mg PO DAILY Zofran Odt (Ondansetron Odt) 4 Mg Tab 4 Mg SL Q8HR PRN Pravastatin 10 Mg Tab 10 Mg PO DAILY Thera Tablet (Multivitamin with Folic Acid) 400 Mcg Tablet 1 Tab PO DAILY Novolog Inj (Insulin Aspart) 100 Unit/Ml Inj 1 Unit SQ ACHS SLIDING SCALE Gnp Senna Plus 8.6-50 mg (Sennosides-Docusate Sodium) 8.6 Mg-50 Mg Tab 1 Tab PO BID Bactroban Nasal Oint (Mupirocin Nasal Oint) 2% Oint 1 Applic EACH NARE BID Single-use tubes. Eq Acetaminophen (Acetaminophen) 325 Mg Tab 650 Mg PO BID Oxycodone (Oxycodone HCl) 5 Mg Tab 5 Mg PO Q6H PRN Aspirin EC (Aspirin) 325 Mg Tabdr 325 Mg PO DAILY Lopid (Gemfibrozil) 600 Mg Tab 300 Mg PO DAILY Take 30 minutes prior to meal Levemir Inj (Insulin Detemir) 1,000 unit/ 10 ML Vial 10 Units SQ HS Do not mix with any other Insulin. Ferosul (Ferrous Sulfate) 325 Mg (65 Mg Iron) Tablet 325 Mg PO BID Amlodipine (Amlodipine Besylate) 10 Mg Tab 10 Mg PO DAILY Review of Systems Except as stated in HPI: all other systems reviewed are Neg General / Constitutional: No: Fever, Chills HENT: No: Headaches, Lightheadedness Cardiovascular: No: Chest Pain or Discomfort, Palpitations Respiratory: No: Cough, Shortness of Breath Gastrointestinal: No: Nausea, Vomiting, Diarrhea, Abdominal Pain Genitourinary: Positive: Frequency, Dysuria, No: Incontinence Musculoskeletal: No: Weakness, Pain Neurologic: No: Weakness, Dizziness, Headache Physical Exam Narrative GENERAL: Well-nourished, well-developed patient, in no acute respiratory distress. SKIN: Focused skin assessment warm/dry. HEAD: Normocephalic/atraumatic. EYES: No scleral icterus. No injection or drainage. NECK: Supple, trachea midline. CARDIOVASCULAR: Regular rate and rhythm without murmurs, gallops, or rubs. RESPIRATORY: Breath sounds equal bilaterally. No accessory muscle use. GASTROINTESTINAL: Abdomen soft, non-tender, nondistended. MUSCULOSKELETAL: No cyanosis, or edema. BACK: No CVA tenderness bilaterally. NEUROLOGICAL: Awake and alert. Cranial nerves II through XII intact. Motor grossly within normal limits. Five out of 5 muscle strength in all muscle groups. Normal speech. Data Data Last Documented VS Vital Signs Date Time Temp Pulse Resp B/P (MAP) Pulse Ox O2 Delivery O2 Flow Rate FiO2 11/26/17 09:56 82 17 211/88 (129) 99 Room Air 11/26/17 06:17 98.6 Orders Orders Complete Blood Count With Diff (11/26/17 07:03) Basic Metabolic Panel (Bmp) (11/26/17 07:03) Urinalysis - C+S If Indicated (11/26/17 07:03) Iv Access Insert/Monitor (11/26/17 07:03) Urine Culture (11/26/17 07:15) Ceftriaxone Inj (Rocephin Inj) (11/26/17 08:30) Sodium Chlorid 0.9% 500 Ml Inj (Ns 500 M (11/26/17 08:30) Lisinopril (Prinivil) (11/26/17 10:00) Amlodipine (Norvasc) (11/26/17 10:00) Admit Order (Ed Use Only) (11/26/17 10:28) Labs Laboratory Tests Test 11/26/17 07:15 11/26/17 07:30 Urine Color LIGHT-YELLOW Urine Turbidity CLEAR Urine pH 6.5 Urine Specific [place] 1.009 Urine Protein 300 mg/dL Urine Glucose (UA) 70 mg/dL Urine Ketones NEG mg/dL Urine Occult Blood MOD Urine Nitrite NEG Urine Bilirubin NEG Urine Urobilinogen LESS THAN 2.0 MG/DL Urine Leukocyte Esterase MOD Urine RBC 22 /hpf Urine WBC 39 /hpf Urine Squamous Epithelial Cells <1 /hpf Urine Transitional Epithelial Cells <1 /hpf Urine Amorphous Sediment OCC Urine Bacteria RARE /hpf Microscopic Urinalysis Comment CULTURE INDICATED White Blood Count 11.3 TH/MM3 Red Blood Count 3.27 MIL/MM3 Hemoglobin 9.3 GM/DL Hematocrit 27.6 % Mean Corpuscular Volume 84.5 FL Mean Corpuscular Hemoglobin 28.6 PG Mean Corpuscular Hemoglobin Concent 33.8 % Red Cell Distribution Width 18.2 % Platelet Count 472 TH/MM3 Mean Platelet Volume 6.9 FL Neutrophils (%) (Auto) 52.9 % Lymphocytes (%) (Auto) 34.8 % Monocytes (%) (Auto) 6.6 % Eosinophils (%) (Auto) 4.4 % Basophils (%) (Auto) 1.3 % Neutrophils # (Auto) 6.0 TH/MM3 Lymphocytes # (Auto) 3.9 TH/MM3 Monocytes # (Auto) 0.7 TH/MM3 Eosinophils # (Auto) 0.5 TH/MM3 Basophils # (Auto) 0.1 TH/MM3 CBC Comment DIFF FINAL Differential Comment Blood Urea Nitrogen 19 MG/DL Creatinine 1.23 MG/DL Random Glucose 225 MG/DL Calcium Level 9.1 MG/DL Sodium Level 134 MEQ/L Potassium Level 3.4 MEQ/L Chloride Level 101 MEQ/L Carbon Dioxide Level 21.3 MEQ/L Anion Gap 12 MEQ/L Estimat Glomerular Filtration Rate 53 ML/MIN [facility] Medical Decision Making Medical Screen Exam Complete: Yes Emergency Medical Condition: Yes Differential Diagnosis Recurrent cystitis versus bladder irritation versus urinary frequency Narrative Course Asked 7-year-old female presents with recurrent cystitis symptoms. The patient' s had previous cystitis. She's had complications with a urinary tract infection that ended up being complicated pyelonephritis. She is concerned that since this antibiotics do not seem to be working that this could spread to her kidneys and have another episode like previous. She denies any fevers, chills. The patient's white blood count slightly elevated. Her urine is grossly infected. The patient also has acute kidney injury. She's been started on Rocephin. She's been given a 500 cc bolus. Given the fact that she' s had previous serious urinary tract related infections, I will bring the patient into the hospital for IVD antibiotics. The case was discussed with the senior resident for the medical service. Will place patient in observation status at this point and have case management evaluate for possible inpatient admission. The patient's blood pressure was elevated and she did not take her antihypertensives. We did give her her 20 mg of lisinopril and 10 mg of amlodipine. Diagnosis Primary Impression: UTI, failed outpatient antibiotics. Additional Impressions: DELLA (acute kidney injury) Anemia Diabetes mellitus Hypertension Dyslipidemia History of CVA (cerebrovascular accident) Admitting Information Admitting Physician Requests: Observation Denis Horvath MD Nov 26, 2017 07:09
[2017-11-26 07:44] LABS: BASOPHIL # 0.1 TH/MM3 (0-0.2); BASOPHIL % 1.3 % (0.0-2.0); EOSINOPHIL # 0.5 TH/MM3 (0-0.4); EOSINOPHIL % 4.4 % (0.0-4.0); HEMATOCRIT 27.6 % (35.0-46.0); HEMOGLOBIN 9.3 GM/DL (11.6-15.3); LYMPH % 34.8 % (9.0-44.0); LYMPHOCYTE # 3.9 TH/MM3 (1.0-4.8); MEAN CELL VOLUME 84.5 FL (80.0-100.0); MEAN CORPUSCULAR HEMOGLOBIN 28.6 PG (27.0-34.0); MEAN CORPUSCULAR HGB CONC 33.8 % (32.0-36.0); MEAN PLATELET VOLUME 6.9 FL (7.0-11.0); MONO % 6.6 % (0.0-8.0); MONOCYTE # 0.7 TH/MM3 (0-0.9); NEUT % 52.9 % (16.0-70.0); PLATELET COUNT 472 TH/MM3 (150-450); RED BLOOD COUNT 3.27 MIL/MM3 (4.00-5.30); RED CELL DISTRIBUTION WIDTH 18.2 % (11.6-17.2); WHITE BLOOD COUNT 11.3 TH/MM3 (4.0-11.0)
[2017-11-26 07:56] LABS: AMORPHOUS SEDIMENT, URINE OCC; BACTERIA, URINE RARE /hpf; BILIRUBIN, URINE NEG (NEG); BLOOD, URINE MOD (NEG); GLUCOSE,URINE 70 mg/dL (NEG); KETONE, URINE NEG (NEG); NITRITE,URINE NEG (NEG); PH, URINE 6.5 (5.0-8.5); SQUAMOUS EPITHELIAL CELL URINE <1 /hpf (0-5); TRANSITIONAL EPI CELLS, URINE <1 /hpf; URINE COLOR LIGHT-YELLOW (YELLW/STRAW); URINE LEUKOCYTE ESTERASE MOD (NEG)
[2017-11-26 07:57] LABS: BICARBONATE 21.3 MEQ/L (21.0-32.0); CALCIUM 9.1 MG/DL (8.5-10.1); CREATININE 1.23 MG/DL (0.50-1.00)
[2017-11-26] MEDS ORDERED: cefTRIAXone INJ 1,000 MG in SODIUM CHLORIDE 0.9% INJ 100 ML IV ONE (08:30)
[2017-11-26] MEDS ORDERED: SODIUM CHLORID 0.9% 500 ML INJ 500 ML IV ONE (08:30)
[2017-11-26] MEDS ORDERED: LISINOPRIL 20 MG TAB PO ONE (10:00)
--- NOTE | 2017-11-26 10:45 | HHI.HP ---
[facility] Service Family Medicine Primary Care Physician Wade Garcia , Susanna Desai MD Admission Diagnosis uti, failed outpatient abx, dm, htn, acute kidney injury, anemia Diagnoses: Chief Complaint: dysuria International Travel<30 Days: No Contact w/Intl Traveler<30days: No History of Present Illness 67-year-old female with history of hypertension, diabetes, previous strokes presents with dysuria. Patient states that dysuria and urinary frequency started on Sanju earlier this week. At that time, she presented to the emergency department and was diagnosed with a UTI and started on Keflex. He states that initially her symptoms improved, however she increased the frequency of taking the Keflex up to 4 times a day, although prescribed twice daily. Otherwise, she denies any other symptoms. No hematuria. No fever/chills, nausea/vomiting, chest pain, shortness of breath. No back pain. Does have some lower abdominal pain. Of note, she was recently discharged due to sepsis and pyelonephritis. She is status post nephrostomy in the past. Her last UTI was due to Pseudomonas, and was resistant to several medications. At last hospitalization, she was started on Zosyn for the UTI. Review of Systems Constitutional: DENIES: Fever, Weight loss, Chills, Dizziness Eyes: DENIES: Eye pain, Vision loss Ears, nose, mouth, throat: DENIES: Hearing loss, Throat pain, Running Nose Respiratory: DENIES: Cough, Shortness of breath Cardiovascular: DENIES: Chest pain, Palpitations, Syncope Gastrointestinal: COMPLAINS OF: Abdominal pain, Constipation, DENIES: Black stools, Bloody stools, Diarrhea, Nausea, Vomiting Genitourinary: COMPLAINS OF: Urinary frequency, Urgency, Dysuria, DENIES: Hematuria Integumentary: DENIES: Abnormal pigmentation, Rash Hematologic/lymphatic: DENIES: Bruising, Lymphadenopathy Neurologic: DENIES: Headache, Paresthesias, Tremor Psychiatric: DENIES: Confusion, Mood changes, Depression Past Family Social History Past Medical History DM HTN HLD PFO/CHF emphysematous pyelonephritis/perinephrinic abscess multiple UTIs Past Surgical History C section (1990) Nephrostomy 2016 Reported Medications Reported Meds & Active Scripts Active Keflex (Cephalexin) 500 Mg Cap 500 Mg PO Q12H 7 Days Erythromycin Base 250 Mg Tab 250 Mg PO BID Nebulizer 1 Mis Mis Ea .ROUTE DIRECTED Duoneb (Ipratropium-Albuterol Neb) 0.5-2.5 Mg/3 Ml Neb 3 Ml NEB BID Pantoprazole (Pantoprazole Sodium) 40 Mg Tab 40 Mg PO DAILY Lisinopril 20 Mg Tab 20 Mg PO DAILY Zofran Odt (Ondansetron Odt) 4 Mg Tab 4 Mg SL Q8HR PRN Pravastatin 10 Mg Tab 10 Mg PO DAILY Thera Tablet (Multivitamin with Folic Acid) 400 Mcg Tablet 1 Tab PO DAILY Novolog Inj (Insulin Aspart) 100 Unit/Ml Inj 1 Unit SQ ACHS SLIDING SCALE Gnp Senna Plus 8.6-50 mg (Sennosides-Docusate Sodium) 8.6 Mg-50 Mg Tab 1 Tab PO BID Bactroban Nasal Oint (Mupirocin Nasal Oint) 2% Oint 1 Applic EACH NARE BID Single-use tubes. Eq Acetaminophen (Acetaminophen) 325 Mg Tab 650 Mg PO BID Aspirin EC (Aspirin) 325 Mg Tabdr 325 Mg PO DAILY Lopid (Gemfibrozil) 600 Mg Tab 300 Mg PO DAILY Take 30 minutes prior to meal Levemir Inj (Insulin Detemir) 1,000 unit/ 10 ML Vial 10 Units SQ HS Do not mix with any other Insulin. Ferosul (Ferrous Sulfate) 325 Mg (65 Mg Iron) Tablet 325 Mg PO BID Amlodipine (Amlodipine Besylate) 10 Mg Tab 10 Mg PO DAILY Allergies: Coded Allergies: metformin (Verified Allergy, Severe, Numbness, 11/26/17) clonidine (Verified Allergy, Unknown, 11/26/17) chest pain Active Ordered Medications Active Medications Amlodipine Besylate (Norvasc) 10 mg ONCE ONCE PO Last administered on 10:00; Admin Dose 10 MG; Start 11/26/17 at 10:00; Stop 11/26/17 at 10:01 ; Status DC Ceftriaxone Sodium 1000 mg/ Sodium Chloride 100 ml @ 200 mls/hr ONCE ONCE IV Last administered on 11/26/17 08:41; Admin Dose 200 MLS/HR; Start 11/26/17 at 08:30; Stop 11/26/17 at 08:59; Status DC Lisinopril (Prinivil) 20 mg ONCE ONCE PO Last administered on 11/26/17 10:00 ; Admin Dose 20 MG; Start 11/26/17 at 10:00; Stop 11/26/17 at 10:01; Status DC Sodium Chloride 500 ml @ 500 mls/hr BOLUS ONCE IV Last administered on t 08:41; Admin Dose 500 MLS/HR; Start 11/26/17 at 08:30; Stop 11/26/17 at 09:29; Status DC Family History Father-heart disease Mother-DM, HTN Grandma-cancer Social History Lives at home with . Home health was prescribed at d/c, but cleared from their standpoint. Tobacco: never Alcohol: never Illicit drug use: never Physical Exam Vital Signs Vital Signs Date Time Temp Pulse Resp B/P (MAP) Pulse Ox O2 Delivery O2 Flow Rate FiO2 11/26/17 09:56 82 17 211/88 (129) 99 Room Air 11/26/17 06:17 98.6 84 18 172/75 (107) 98 Physical Exam GENERAL: This is a well-nourished, well-developed patient, in no apparent distress. SKIN: No rashes, ecchymoses or lesions. Cool and dry. HEAD: Atraumatic. Normocephalic. No temporal or scalp tenderness. EYES: Pupils equal round and reactive. Extraocular motions intact. No scleral icterus. No injection or drainage. ENT: Throat without erythema, tonsillar hypertrophy or exudate. Uvula midline. Airway patent. NECK: Trachea midline. No JVD or lymphadenopathy. Supple, nontender. CARDIOVASCULAR: Regular rate and rhythm without murmurs, gallops, or rubs. RESPIRATORY: Clear to auscultation. Breath sounds equal bilaterally. No wheezes , rales, or rhonchi. GASTROINTESTINAL: Abdomen soft, tender to palpation in lower-mid abdominal area. No rebound tenderness. No masses appreciated. MUSCULOSKELETAL: Extremities without clubbing, cyanosis, or edema. No joint tenderness, effusion, or edema noted. No calf tenderness. BACK: No CVA tenderness bilaterally NEUROLOGICAL: Awake and alert. Motor and sensory grossly within normal limits. Normal speech. Laboratory Laboratory Tests Test 11/26/17 07:15 11/26/17 07:30 Urine Color LIGHT-YELLOW Urine Turbidity CLEAR Urine pH 6.5 Urine Specific [place] 1.009 Urine Protein 300 Urine Glucose (UA) 70 Urine Ketones NEG Urine Occult Blood MOD Urine Nitrite NEG Urine Bilirubin NEG Urine Urobilinogen LESS THAN 2.0 Urine Leukocyte Esterase MOD Urine RBC 22 Urine WBC 39 Urine Squamous Epithelial Cells <1 Urine Transitional Epithelial Cells <1 Urine Amorphous Sediment OCC Urine Bacteria RARE Microscopic Urinalysis Comment CULTURE INDICATED White Blood Count 11.3 Red Blood Count 3.27 Hemoglobin 9.3 Hematocrit 27.6 Mean Corpuscular Volume 84.5 Mean Corpuscular Hemoglobin 28.6 Mean Corpuscular Hemoglobin Concent 33.8 Red Cell Distribution Width 18.2 Platelet Count 472 Mean Platelet Volume 6.9 Neutrophils (%) (Auto) 52.9 Lymphocytes (%) (Auto) 34.8 Monocytes (%) (Auto) 6.6 Eosinophils (%) (Auto) 4.4 Basophils (%) (Auto) 1.3 Neutrophils # (Auto) 6.0 Lymphocytes # (Auto) 3.9 Monocytes # (Auto) 0.7 Eosinophils # (Auto) 0.5 Basophils # (Auto) 0.1 CBC Comment DIFF FINAL Differential Comment Blood Urea Nitrogen 19 Creatinine 1.23 Random Glucose 225 Calcium Level 9.1 Sodium Level 134 Potassium Level 3.4 Chloride Level 101 Carbon Dioxide Level 21.3 Anion Gap 12 Estimat Glomerular Filtration Rate 53 Date/Time Source Procedure Growth Status 11/26/17 07:15 Urine Clean Catch Urine Culture Pending Received Result Diagram: 11/26/17 0730 11/26/1730 Caprini VTE Risk Assessment Caprini VTE Risk Assessment: Mod/High Risk (score >= 2) Caprini Risk Assessment Model Point Value = 1 Point Value = 2 Point Value = 3 Point Value = 5 Age 41-60 Minor surgery BMI > 25 kg/m2 Swollen legs Varicose veins or History of unexplained or recurrent spontaneous Oral contraceptives or hormone replacement Sepsis (< 1 month) Serious lung disease, including pneumonia (< 1 month) Abnormal pulmonary function Acute myocardial infarction Congestive heart failure (< 1 month) History of inflammatory bowel disease Medical patient at bed rest Age 61-74 Arthroscopic surgery Major open surgery (> 45 min) Laparoscopic surgery (> 45 min) Malignancy Confined to bed (> 72 hours) Immobilizing plaster cast Central venous access Age >= 75 History of VTE Family history of VTE Factor V Leiden Prothrombin [id number] Lupus anticoagulant Anticardiolipin antibodies Elevated serum homocysteine Heparin-induced thrombocytopenia Other congenital or acquired thrombophilia Stroke (< 1 month) Elective arthroplasty Hip, pelvis, or leg fracture Acute spinal cord injury (< 1 month) Prophylaxis Regimen Total Risk Factor Score Risk Level Prophylaxis Regimen 0-1 Low Early ambulation 2 Moderate Order ONE of the following: *Sequential Compression Device (SCD) *Heparin 5000 units SQ BID 3-4 Higher Order ONE of the following medications: *Heparin 5000 units SQ TID *Enoxaparin/Lovenox 40 mg SQ daily (WT < 150 kg, CrCl > 30 mL/min) *Enoxaparin/Lovenox 30 mg SQ daily (WT < 150 kg, CrCl > 10-29 mL/min) *Enoxaparin/Lovenox 30 mg SQ BID (WT < 150 kg, CrCl > 30 mL/min) AND/OR *Sequential Compression Device (SCD) 5 or more Highest Order ONE of the following medications: *Heparin 5000 units SQ TID (Preferred with Epidurals) *Enoxaparin/Lovenox 40 mg SQ daily (WT < 150 kg, CrCl > 30 mL/min) *Enoxaparin/Lovenox 30 mg SQ daily (WT < 150 kg, CrCl > 10-29 mL/min) *Enoxaparin/Lovenox 30 mg SQ BID (WT < 150 kg, CrCl > 30 mL/min) AND *Sequential Compression Device (SCD) Assessment and Plan Assessment and Plan 67 y/o female with history of hypertension, diabetes, multiple drug-resistant UTIs in the past presents with dysuria and urinary frequency. Found to have a UTI. No signs of pyelonephritis at this time. We'll admit for IV antibiotics and observation. Code Status Full Discussed Condition With Dr. Horvath Problem List: (1) UTI (urinary tract infection) ICD Codes: N39.0 - Urinary tract infection, site not specified Plan: UA shows moderate leukocyte esterase, 39 WBC, rare bacteria. Symptomatic with dysuria and urinary frequency. Afebrile, WBC mildly elevated to 11.3. No signs of pyelonephritis at this time. Given 1g Rocephin in ED -Continue Rocephin for empiric treatment -Consider broadening antibiotics if worsening -Urine culture pending -Blood cultures pending -IV fluids (2) Anemia ICD Codes: D64.9 - Anemia, unspecified Status: Acute Plan: Hgb of 9.3 on admission. MCV 84.5. History of iron deficiency anemia. No signs of active bleeding at this time. Was 8.2 several weeks ago. -Monitor CBCs -Monitor for signs of bleeding -Continue home Iron (3) DELLA (acute kidney injury) ICD Codes: N17.9 - Acute kidney failure, unspecified Status: Acute Plan: Creatinine of 1.23 on admission. Elevated during last admission. Did decrease to a low of 0.94 a few weeks ago. -Monitor BNPs -Avoid nephrotoxic agents -IV fluids (4) Hypertension Status: Chronic Plan: BP 172/75 on admission. Increased to 211/88. -Increase home lisinopril to 30mg daily -Continue home amlodipine 10mg daily -Vasotec PRN (5) Diabetes mellitus ICD Codes: E11.9 - Type 2 diabetes mellitus without complications Status: Chronic Plan: Hold home insulin -Low dose sliding scale while inpatient -Regular accuchecks (6) FEN Status: Acute Plan: Fluids: NS @ 100mls/hr (CHF noted on previous chart, but cardiology consult suggested likely due to pulmonary function. Normal EF on last echo) Electrolytes: monitor and replace PRN Nutrition: Diabetic diet DVT ppx: lovenox Problem Qualifiers (1) UTI (urinary tract infection): Qualified Codes: N30.00 - Acute cystitis without hematuria (2) Anemia: Qualified Codes: D50.9 - Iron deficiency anemia, unspecified Sesar Bobo MD, R2 Nov 26, 2017 10:45
[2017-11-26] MEDS ORDERED: ACETAMINOPHEN 325 MG TAB PO PRN (11:15)
[2017-11-26] MEDS ORDERED: BISACODYL 10 MG SUPP RECTAL PRN (11:15)
[2017-11-26] MEDS ORDERED: hydrALAZINE HCL 20 MG/ML VIAL IV PUSH ONE (11:15)
[2017-11-26] MEDS ORDERED: LACTULOSE SYRUP 20 GM/30 ML CUP PO PRN (11:15)
[2017-11-26] MEDS ORDERED: MAGNESIUM HYDROXIDE SUSP 30 ML CUP PO PRN (11:15)
[2017-11-26] MEDS ORDERED: DEXTROSE 50% IN WATER 50 ML VIAL(D50) IV PUSH PRN (11:15)
[2017-11-26] MEDS ORDERED: ONDANSETRON HCL 4 MG/2 ML VIAL IVP PRN (11:15)
[2017-11-26] MEDS ORDERED: SENNOSIDES 8.6 MG TAB PO PRN (11:15)
[2017-11-26] MEDS ORDERED: SODIUM CHLORIDE 0.9% FLUSH 10 ML FLUSH IV FLUSH PRN (11:15)
[2017-11-26] MEDS ORDERED: NALOXONE HCL 0.4 MG/ML AMP IV PUSH PRN (11:15)
[2017-11-26] MEDS ORDERED: GLUCAGON 1 MG/ML VIAL OTHER PRN (11:15)
[2017-11-26] MEDS: INSULIN ASPART SUPPLEMENTAL SCALE SQ SCH ×3 (12:00→22:16)
[2017-11-26] MEDS: ENOXAPARIN SODIUM 40 MG/0.4 ML SYRINGE SQ SCH (12:43)
[2017-11-26] MEDS ORDERED: MORPHINE SULFATE 2 MG/ML INJ IV PUSH PRN (14:00)
[2017-11-26] MEDS ORDERED: KETOROLAC TROMETHAMINE 30 MG/ML (IVP) VIAL IV PUSH PRN ×2 (14:00)
[2017-11-26] MEDS: SODIUM CHLOR 0.9% 1000 ML INJ 1,000 ML IV SCH (14:08)
[2017-11-26] MEDS: ACETAMINOPHEN/HYDROcodone 325 MG/7.5 MG TAB PO PRN (14:47)
[2017-11-26] MEDS ORDERED: ERYTHROMYCIN BASE 250 MG PO SCH (21:00)
[2017-11-26] MEDS: DOCUSATE SODIUM 50 MG/SENNA 8.6 MG TAB PO SCH (22:15)
[2017-11-26] MEDS: FERROUS SULFATE 325 MG (65 MG ELEMENTAL IRON) TAB PO SCH (22:16)
[2017-11-26] MEDS: SODIUM CHLORIDE 0.9% FLUSH 10 ML FLUSH IV FLUSH SCH (22:16)
[2017-11-27] VITALS (8 sets, daily range): BP systolic 146–197; BP diastolic 68–86; PULSE 76–90; RESP 16–18; TEMP 97.7–98.9; O2SAT 93–98
[2017-11-27] MEDS: SODIUM CHLOR 0.9% 1000 ML INJ 1,000 ML IV SCH ×3 (01:13→18:00)
[2017-11-27] MEDS: ACETAMINOPHEN/HYDROcodone 325 MG/7.5 MG TAB PO PRN ×4 (01:23→22:19)
[2017-11-27] MEDS: ENALAPRILAT 1.25 MG/ML VIAL IV PUSH PRN (05:23)
[2017-11-27] MEDS: INSULIN ASPART SUPPLEMENTAL SCALE SQ SCH ×4 (08:00→22:19)
[2017-11-27 08:25] LABS: AUTOMATED NEUTROPHIL # 6.3 TH/MM3 (1.8-7.7); BASOPHIL # 0.1 TH/MM3 (0-0.2); BASOPHIL % 1.2 % (0.0-2.0); EOSINOPHIL # 0.4 TH/MM3 (0-0.4); EOSINOPHIL % 3.3 % (0.0-4.0); HEMATOCRIT 26.5 % (35.0-46.0); HEMOGLOBIN 8.9 GM/DL (11.6-15.3); LYMPH % 32.1 % (9.0-44.0); LYMPHOCYTE # 3.4 TH/MM3 (1.0-4.8); MEAN CELL VOLUME 84.8 FL (80.0-100.0); MEAN CORPUSCULAR HEMOGLOBIN 28.4 PG (27.0-34.0); MEAN CORPUSCULAR HGB CONC 33.5 % (32.0-36.0); MEAN PLATELET VOLUME 7.2 FL (7.0-11.0); MONO % 4.2 % (0.0-8.0); MONOCYTE # 0.5 TH/MM3 (0-0.9); NEUT % 59.2 % (16.0-70.0); PLATELET COUNT 465 TH/MM3 (150-450); RED BLOOD COUNT 3.12 MIL/MM3 (4.00-5.30); RED CELL DISTRIBUTION WIDTH 18.2 % (11.6-17.2); WHITE BLOOD COUNT 10.7 TH/MM3 (4.0-11.0)
[2017-11-27 08:52] LABS: BICARBONATE 21.5 MEQ/L (21.0-32.0); CALCIUM 8.6 MG/DL (8.5-10.1); CREATININE 1.17 MG/DL (0.50-1.00)
[2017-11-27] MEDS ORDERED: cefTRIAXone INJ 1,000 MG in SODIUM CHLORIDE 0.9% INJ 100 ML IV SCH (09:00)
[2017-11-27] MEDS ORDERED: LISINOPRIL 20 MG TAB PO SCH (09:00)
[2017-11-27] MEDS: DOCUSATE SODIUM 50 MG/SENNA 8.6 MG TAB PO SCH ×2 (09:00→21:33)
[2017-11-27] MEDS: FERROUS SULFATE 325 MG (65 MG ELEMENTAL IRON) TAB PO SCH ×2 (09:00→21:33)
[2017-11-27] MEDS: MULTIVITAMIN TAB PO SCH (09:00)
[2017-11-27] MEDS: LISINOPRIL 20 MG TAB PO SCH (09:01)
[2017-11-27] MEDS: ASPIRIN EC 325 MG TABEC PO SCH (09:02)
[2017-11-27] MEDS: PANTOPRAZOLE SOD 40 MG DELAYED RELEASE TAB PO SCH (09:02)
[2017-11-27] MEDS: PRAVASTATIN SOD 10 MG TAB PO SCH (09:02)
[2017-11-27] MEDS: GEMFIBROZIL 600 MG TAB PO SCH (09:03)
[2017-11-27] MEDS: SODIUM CHLORIDE 0.9% FLUSH 10 ML FLUSH IV FLUSH SCH ×2 (09:05→21:00)
--- NOTE | 2017-11-27 09:14 | HHI.FPPN ---
Subjective Remarks 67-year-old female with history of hospitalization 2 months ago for sepsis and pyelonephritis with [id number] Pseudomonas, presents after failing outpatient therapy for a UTI. She began experiencing dysuria on November 21 and came into the ER where they prescribed her antibiotics and discharged her. Patient felt better for 2 days then began experiencing severe symptoms again on the third day. She experiences constant cramping and occasional sharp pelvic pains of a 4 out of 10 in severity. She also experiences burning with urination. She states the symptoms have not gotten better after the administration of IV antibiotics yesterday. She denies any fever/chills. She denies any chest pain/shortness of breath/dizziness. Patient states she also started experiencing itching and irritation around the vaginal area along with clumpy white discharge. She has had yeast infections before and she believes this is an additional yeast infection. (Monika Saha MD R2) Objective Vitals Vital Signs Date Time Temp Pulse Resp B/P (MAP) Pulse Ox O2 Delivery O2 Flow Rate FiO2 11/27/17 07:57 98.9 79 18 159/75 (103) 93 11/27/17 05:51 197/86 (123) 11/27/17 04:43 98.1 77 18 196/77 (116) 98 11/26/17 23:37 98.2 92 18 170/79 (109) 98 11/26/17 19:55 98 11/26/17 19:47 86 18 189/82 (117) 98 11/26/17 14:39 99.0 98 18 155/71 (99) 98 11/26/17 13:15 11/26/17 13:10 75 171/74 (106) 11/26/17 12:44 79 16 180/79 (112) 97 Room Air 11/26/17 10:30 82 17 194/89 (124) 98 Room Air 11/26/17 09:56 82 17 211/88 (129) 99 Room Air I/O 11/26/17 11/26/17 11/26/17 11/27/17 11/27/17 11/27/17 06:59 14:59 22:59 06:59 14:59 22:59 # Voids 1 2 # Bowel Movements 1 (Monika Saha MD R2) Result Diagram: 11/27/17 0810 11/27/17 0810 Objective Remarks GENERAL: This is a well-nourished, well-developed patient, in no apparent distress. SKIN: No rashes, ecchymoses or lesions. Cool and dry. HEAD: Atraumatic. Normocephalic. No temporal or scalp tenderness. EYES: Pupils equal round and reactive. Extraocular motions intact. No scleral icterus. No injection or drainage. ENT: Throat without erythema, tonsillar hypertrophy or exudate. Uvula midline. Airway patent. NECK: Trachea midline. No JVD or lymphadenopathy. Supple, nontender. CARDIOVASCULAR: Regular rate and rhythm without murmurs, gallops, or rubs. RESPIRATORY: Clear to auscultation. Breath sounds equal bilaterally. No wheezes , rales, or rhonchi. GASTROINTESTINAL: Abdomen soft, tender to palpation in lower-mid abdominal area. No rebound tenderness. No masses appreciated. MUSCULOSKELETAL: Extremities without clubbing, cyanosis, or edema. No joint tenderness, effusion, or edema noted. No calf tenderness. BACK: No CVA tenderness bilaterally NEUROLOGICAL: Awake and alert. Motor and sensory grossly within normal limits. Normal speech. (Monika Saha MD R2) A/P Assessment and Plan 67 y/o female with history of hypertension, diabetes, multiple drug-resistant UTIs in the past presents with UTI that failed outpatient therapy. No signs of sepsis or pyelonephritis at this time Discharge Planning Pending results of urine culture and symptomatic improvement (Monika Saha MD R2) Attending Attestation Patient seen and examined. Case reviewed and discussed with the resident team. Agree with plan of care as discussed with me and documented in the resident note. she reported she was diagnosed with a UTI on [place] ans was taking her antibiotic BID but then felt more sxs after 2 days and took her antibiotics every 6 hours. She is very concerned because she never had UTIs regularly but now seems to have them very often. She reports she leans forward and pushes suprapubic to be sure her bladder drains. I discussed a Urogynecologist and she is happy to see someone as an outpt. (Desirae Clark MD) Problem List: (1) Yeast infection of the vagina ICD Codes: B37.3 - Candidiasis of vulva and vagina Status: Acute Plan: Likely vaginal candidiasis; broad-spectrum antibiotic use, burning, irritation, thick white cottage cheese discharge, no odor Vaginal candidiasis versus BV versus Trichomonas Patient has used miconazole/Monistat vaginal tab before Start Monistat- 7 2% cream now on vagina, and nightly for 7 nights We will do a full pelvic exam and take cultures if no improvement (2) UTI (urinary tract infection) ICD Codes: N39.0 - Urinary tract infection, site not specified Plan: UA shows moderate leukocyte esterase, negative nitrites, 39 WBC, rare bacteria. Symptomatic with dysuria and urinary frequency. Afebrile, WBC 10.7. No signs of pyelonephritis at this time. - Hx: UTI with pseudomonas ; sensitive to cefepime,ceftazidime, gentamicin, imipenem, Zosyn, Tobramycin (treated with Zosyn) - S/p 1g Rocephin x 2 in ED with no symptomatic improvement per pt - Start Zosyn 3.375g IV q6h -Urine culture pending -Blood cultures pending - s/p fluid 500ml fluid bolus - Cont IV fluids @ maintenance; 100mls/hr Will f/u with Urogyn as outpatient (3) Anemia ICD Codes: D64.9 - Anemia, unspecified Status: Acute Plan: Hgb of 9.3 on admission. MCV 84.5. History of iron deficiency anemia. Was 8.2 several weeks ago. -Hb : 9.3, 8.9 -Likely dilutional anemia -Continue home Iron - Follow up CBC tomorrow (4) DELLA (acute kidney injury) ICD Codes: N17.9 - Acute kidney failure, unspecified Status: Acute Plan: Creatinine of 1.23 on admission. Elevated during last admission. Did decrease to a low of 0.94 a few weeks ago. -Creat : 1.23, 1.17 - Creatinine stable -Avoid nephrotoxic agents -IV fluids - Follow-up BMP tomorrow (5) Hypertension Status: Chronic Plan: BP 172/75 on admission. BPmax: 211/88. BP range [159 - 194/74-89] - BP was similar at last hospital admission and per clinic notes -Increase home lisinopril to 30mg daily -Continue home amlodipine 10mg daily -Vasotec 1.25mg q6h IVP for BP >170/100 (given x 1) -Pt on ACEi and CCB - Add 3rd agent; hydrochlorothiazide 12.5 mg daily - f/u BPs Risk for hypokalemia with thiazide - K 3.4 today - Add KCl 40meq now - f/u BMP in AM (6) Diabetes mellitus ICD Codes: E11.9 - Type 2 diabetes mellitus without complications Status: Chronic Plan: Diabetes with long-term insulin use and gastroparesis per clinic notes Accu-Check range 173-249 Hold home insulin -Low dose sliding scale while inpatient -Regular accuchecks (7) FEN Status: Acute Plan: Fluids: NS @ 100mls/hr (CHF noted on previous chart, but cardiology consult suggested likely due to pulmonary function. Normal EF on last echo) Electrolytes: monitor and replace PRN Nutrition: Diabetic diet DVT ppx: lovenox 40 mg every 24hrs (Monika Saha MD R2) Problem Qualifiers (1) UTI (urinary tract infection): Qualified Codes: N30.00 - Acute cystitis without hematuria (2) Anemia: Qualified Codes: D50.9 - Iron deficiency anemia, unspecified Monika Saha MD R2 Nov 27, 2017 09:14 Desirae Clark MD Nov 27, 2017 12:59
[2017-11-27] MEDS ORDERED: POTASSIUM CHLORIDE 10 MEQ CONTROLLED RELEASE TAB PO ONE (10:00)
[2017-11-27] MEDS: HYDROCHLOROTHIAZIDE 12.5 MG CAP PO SCH (10:54)
[2017-11-27] MEDS: PIPERACIL-TAZO 3.375 GM PREMIX 50 ML IV SCH ×3 (10:54→21:33)
[2017-11-27] MEDS ORDERED: MICONAZOLE NITRATE 2% VAG CREAM 45 GM VAGINAL ONE (11:00)
[2017-11-27] MEDS: ENOXAPARIN SODIUM 40 MG/0.4 ML SYRINGE SQ SCH (11:00)
[2017-11-28] MEDS: PIPERACIL-TAZO 3.375 GM PREMIX 50 ML IV SCH ×4 (04:19→21:12)
[2017-11-28] MEDS: SODIUM CHLOR 0.9% 1000 ML INJ 1,000 ML IV SCH (04:19)
[2017-11-28 04:30] VITALS: BP 181/81; PULSE 82; RESP 18; TEMP 99; O2SAT 98
[2017-11-28 07:55] VITALS: BP 166/77; PULSE 84; RESP 16; TEMP 98.8; O2SAT 98
[2017-11-28] MEDS: INSULIN ASPART SUPPLEMENTAL SCALE SQ SCH ×4 (08:00→21:00)
[2017-11-28] MEDS: ACETAMINOPHEN/HYDROcodone 325 MG/7.5 MG TAB PO PRN ×2 (08:29→21:12)
[2017-11-28] MEDS: SODIUM CHLORIDE 0.9% FLUSH 10 ML FLUSH IV FLUSH SCH ×2 (09:00→21:12)
[2017-11-28] MEDS: FERROUS SULFATE 325 MG (65 MG ELEMENTAL IRON) TAB PO SCH ×2 (09:31→21:12)
[2017-11-28] MEDS: GEMFIBROZIL 600 MG TAB PO SCH (09:31)
[2017-11-28] MEDS: PANTOPRAZOLE SOD 40 MG DELAYED RELEASE TAB PO SCH (09:32)
[2017-11-28] MEDS: HYDROCHLOROTHIAZIDE 12.5 MG CAP PO SCH (09:32)
[2017-11-28] MEDS: ASPIRIN EC 325 MG TABEC PO SCH (09:32)
[2017-11-28] MEDS: DOCUSATE SODIUM 50 MG/SENNA 8.6 MG TAB PO SCH ×2 (09:32→21:12)
[2017-11-28] MEDS: LISINOPRIL 20 MG TAB PO SCH (09:33)
[2017-11-28] MEDS: MULTIVITAMIN TAB PO SCH (09:33)
[2017-11-28] MEDS: PRAVASTATIN SOD 10 MG TAB PO SCH (09:34)
--- NOTE | 2017-11-28 10:38 | HHI.FPPN ---
Subjective Remarks Patient in no distress, doing well this morning. Dysuria resolved but also on pain medication. Drinking lots of water. No chest pain, shortness of breath, abdominal pain, nausea, vomiting, diarrhea. No calf tenderness or swelling. Has regular appetite. States she feels good. Urine culture is positive for MDR pseudomonas and infectious disease is being consulted. (Eric Bertrand MD R3) Objective Vitals Vital Signs Date Time Temp Pulse Resp B/P (MAP) Pulse Ox O2 Delivery O2 Flow Rate FiO2 11/28/17 09:39 18 11/28/17 07:55 98.8 84 16 166/77 (106) 98 11/28/17 04:30 99.0 82 18 181/81 (114) 98 11/27/17 23:41 98.6 83 18 160/72 (101) 97 11/27/17 19:49 98.9 82 18 157/68 (97) 98 11/27/17 19:36 98 21 11/27/17 16:02 98.9 76 18 146/69 (94) 98 11/27/17 11:10 97.7 90 16 172/78 (109) 97 I/O 11/27/17 11/27/17 11/27/17 11/28/17 11/28/17 11/28/17 07:00 15:00 23:00 07:00 15:00 23:00 Intake Total 55 ml 1100 ml 50 ml Balance 55 ml 1100 ml 50 ml Intake IV Total 55 ml 1100 ml 50 ml # Voids 3 3 # Bowel Movements 0 (Eric Bertrand MD R3) Result Diagram: 11/27/17 0810 11/27/17 0810 Objective Remarks GENERAL: Sitting in side of bed, positive mood, no distress SKIN: No rashes or lesions HEENT: Normocephalic, no conjunctivitis, no nasal discharge NECK: Supple, no lymphadenopathy, no thyromegaly CARDIOVASCULAR: 2/6 systolic ejection murmur, otherwise regular rate and rhythm , normal pulses and cap refill RESPIRATORY: CTAB, no respiratory distress GASTROINTESTINAL: Soft, nontender, nondistended, normal bowel sounds MUSCULOSKELETAL: No calf swelling or tenderness. BACK: No CVA tenderness NEUROLOGICAL: Awake and alert. Motor and sensory grossly within normal limits. Normal speech. (Eric Bertrand MD R3) A/P Assessment and Plan 67 y/o female with history of hypertension, diabetes, multiple drug-resistant UTIs in the past presents with UTI that failed outpatient therapy with Keflex. No signs of sepsis or pyelonephritis at this time Discharge Planning Pending antibiotic recommendations from infectious disease for MDR pseudomonas UTI, will likely go back home with walker. Has good family support at home. (Eric Bertrand MD R3) Attending Attestation THIS CASE WAS DISCUSSED WITH THE RESIDENT PHYSICIAN DR Britt BERTRAND, PATIENT SEEN AND EXAMINED. I HAVE REVIEWED THE RECORD AND AGREE WITH THE ABOVE NOTE AND PLAN OF CARE WAS DISCUSSED. I HAVE AUTHORIZED THE ORDER FOR ADMISSION TO AN IN- PATIENT STATUS (French Salter MD) Problem List: (1) UTI (urinary tract infection) ICD Codes: N39.0 - Urinary tract infection, site not specified Plan: UA shows moderate leukocyte esterase, negative nitrites, 39 WBC, rare bacteria. Symptomatic with dysuria and urinary frequency, but symptoms resolving with antibiotics. Urine culture with pseudomonas, resistant to multiple antibiotics. Has been afebrile, white count trending down, non-toxic appearing. - Continue Zosyn for pseudomonas coverage. - Consult infectious disease for MDR pseudomonas UTI, appreciate antibiotic recommendations. - Would benefit from long-term antibiotics for recurrent UTI's, she's had multiple UTI's in the last few months. - May benefit from cystoscopy or urodynamic studies as an outpatient, will continue to discuss. (2) Yeast infection of the vagina ICD Codes: B37.3 - Candidiasis of vulva and vagina Status: Acute Plan: Likely vaginal candidiasis; broad-spectrum antibiotic use, burning, irritation, thick white cottage cheese discharge, no odor Vaginal candidiasis versus BV versus Trichomonas Patient has used miconazole/Monistat vaginal tab before Start Monistat- 7 2% cream now on vagina, and nightly for 7 nights, has symptomatic improvement already (3) Anemia ICD Codes: D64.9 - Anemia, unspecified Status: Acute Plan: History of iron deficiency anemia. - Continue home Iron (4) DELLA (acute kidney injury) ICD Codes: N17.9 - Acute kidney failure, unspecified Status: Acute Plan: Creatinine of 1.23 on admission. Elevated during last admission. Did decrease to a low of 0.94 a few weeks ago. - Avoid nephrotoxic agents - Has good PO intake of fluids, will stop IV fluids - Follow renal function (5) Hypertension Status: Chronic Plan: Elevated blood pressures - Lisinopril 30 mg daily - Amlodipine 10 mg daily - HCTZ 12.5 mg daily - Vasotec PRN (6) Diabetes mellitus ICD Codes: E11.9 - Type 2 diabetes mellitus without complications Status: Chronic Plan: Diabetes with long-term insulin use and gastroparesis per clinic notes Accu-Check range 173-249 Hold home insulin -Low dose sliding scale while inpatient -Regular accuchecks (7) FEN Status: Acute Plan: Fluids: PO fluids Electrolytes: monitor and replace PRN Nutrition: Diabetic diet DVT ppx: lovenox 40 mg every 24hrs (Eric Bertrand MD R3) Problem Qualifiers (1) UTI (urinary tract infection): Qualified Codes: N30.00 - Acute cystitis without hematuria (2) Anemia: Qualified Codes: D50.9 - Iron deficiency anemia, unspecified Eric Bertrand MD R3 Nov 28, 2017 10:38 French Salter MD Nov 28, 2017 16:05
[2017-11-28 10:45] VITALS: BP 159/71; PULSE 76; RESP 20; TEMP 98.2; O2SAT 99
[2017-11-28] MEDS: ENOXAPARIN SODIUM 40 MG/0.4 ML SYRINGE SQ SCH (12:15)
[2017-11-28 13:34] LABS: AUTOMATED NEUTROPHIL # 7.3 TH/MM3 (1.8-7.7); BASOPHIL # 0.2 TH/MM3 (0-0.2); BASOPHIL % 1.3 % (0.0-2.0); EOSINOPHIL # 0.9 TH/MM3 (0-0.4); EOSINOPHIL % 6.5 % (0.0-4.0); HEMATOCRIT 27.6 % (35.0-46.0); LYMPH % 30.6 % (9.0-44.0); MEAN CELL VOLUME 85.1 FL (80.0-100.0); MEAN CORPUSCULAR HEMOGLOBIN 27.7 PG (27.0-34.0); MEAN CORPUSCULAR HGB CONC 32.5 % (32.0-36.0); MEAN PLATELET VOLUME 6.9 FL (7.0-11.0); MONO % 5.5 % (0.0-8.0); MONOCYTE # 0.7 TH/MM3 (0-0.9); NEUT % 56.1 % (16.0-70.0); PLATELET COUNT 450 TH/MM3 (150-450); RED BLOOD COUNT 3.24 MIL/MM3 (4.00-5.30); RED CELL DISTRIBUTION WIDTH 18.4 % (11.6-17.2)
[2017-11-28 13:56] LABS: BICARBONATE 23.6 MEQ/L (21.0-32.0); CALCIUM 9.2 MG/DL (8.5-10.1); CREATININE 1.2 MG/DL (0.50-1.00)
[2017-11-28 16:00] VITALS: BP 180/79; PULSE 84; RESP 20; TEMP 98.6; O2SAT 94
--- NOTE | 2017-11-28 16:34 | MB ---
cc: GALINA SHARIF MD DATE OF CONSULTATION 11/28/[address] 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 HISTORY OF PRESENT ILLNESS This is a 67-year-old white female who was recently treated in the hospital for sepsis and urinary tract infection. The patient was admitted to the hospital previously on November 01 and discharged on November 15. During the hospitalization she had urinary tract infection due to Pseudomonas aeruginosa for which she was treated in the hospital. By the time of discharge her urine had less than 10,000 colonies of bacteria on 11/12. The patient went home and she presented again to the emergency department on 11/21 with a complaint of urinary urgency and frequency and dysuria. She reported some low abdominal cramping as well. She had urinalysis which showed 8 white cells. Culture was reported as not indicated. She was put on oral cephalexin. She took the antibiotic however, despite the antibiotic she noted recurrent problems of urinary frequency and dysuria and lower abdominal pain. She has no fever or chills. Currently the patient states that she feels well. However, she states that she still has the lower abdominal pain. Repeat urinalysis performed on 11/26 revealed less than 10,000 colonies of Pseudomonas aeruginosa which is resistant to Levaquin and ciprofloxacin and is only sensitive to intravenous antibiotics. The patient has no fever. White blood cell count is elevated at 13.0. She states that she has stools approximately every other day but no diarrhea. PAST MEDICAL HISTORY 1. Diabetes mellitus. 2. Hypertension. 3. Hyperlipidemia. 4. Congestive heart failure. 5. Multiple urinary tract infections. 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 7. Nephrostomy in 2017. ALLERGIES METFORMIN. CLONIDINE. MEDICATIONS 1. Piperacillin / Tazobactam. 2. Norvasc. 3. Hydrochlorothiazide. 4. Aspirin. 5. Lopid. 6. Theragran. 7. Protonix. 8. Pravachol. 9. Prinivil. 10. Bridgette-Colace. 11. Ferrous sulfate. 12. [place] 5 p.r.n. SOCIAL HISTORY No tobacco, no alcohol. No illicit drugs. FAMILY HISTORY Noncontributory. REVIEW OF SYSTEMS Significant for abdominal pain, otherwise negative on 10-point review. PHYSICAL EXAMINATION GENERAL: This is a well-developed female who is in no acute distress. She is awake and alert and oriented. VITAL SIGNS: Include temperature of 98.2, blood pressure 159/70, respiratory rate 20. Heart rate 76. HEENT: Head is atraumatic. Extraocular movements grossly intact, pupils reactive to light. No icterus. Oropharynx moist mucosa without lesions. NECK: Supple without adenopathy. LUNGS: Clear to auscultation. CARDIOVASCULAR: Regular rate and rhythm without murmurs, rubs or gallops. ABDOMEN: Bowel sounds present, soft, minimal tenderness on palpation of the lower mid abdomen. RECTAL: Not performed. EXTREMITIES: No clubbing or cyanosis or edema. SKIN: No rash. NEUROLOGIC: No gross focal findings. PSYCHIATRIC: The patient is calm and cooperative. LABORATORY DATA WBC 13.0, platelets 450, hemoglobin 9.0, 56% neutrophils, 6% eosinophils, 30% lymphocytes. Creatinine 1.20, BUN 17, estimated GFR 55. IMPRESSION Recurrent urinary tract infection due to Pseudomonas. Organism is resistant to Levaquin. The colony count is less than 10,000 but she is symptomatic. She does have a history of emphysematous pyelonephritis. It is not clear whether she had a defect led to recurrence of the urinary tract infection. I recommend repeating the ultrasound of the kidneys. I will also perform ultrasound of the bladder and continue piperacillin and repeat the urine culture tomorrow. Follow the white blood cell count which has increased slightly today. Thank you for this consultation. The patient's progress will be monitored and further recommendations will be given upon followup if necessary. Galina Sharif MD FD/DHURV /1:48 PM /3:53 PM
[2017-11-28] MEDS: ACETAMINOPHEN/HYDROcodone 325 MG/5 MG TAB PO PRN (16:43)
[2017-11-28 17:12] VITALS: BP 168/70
--- NOTE | 2017-11-28 18:02 | RADRPT ---
EXAM DATE/TIME: 11/28/2017 16:52 [facility] COMPARISON: CT ABDOMEN & PELVIS W/O CONTRAST, October 13, 2017, 9:53. US KIDNEY/RENAL/BLADDER, October 12 7, 15:05. INDICATIONS : Hydronephrosis. MEDICAL HISTORY : Hypercholesterolemia. MRSA. Diabetes. SURGICAL HISTORY : section. Renal stent. Abscess drain, right kidney. ENCOUNTER: Subsequent ACUITY: 2 months PAIN SCORE: 2/10 LOCATION: Bilateral flank MEASUREMENTS: RIGHT KIDNEY: 12.6 x 7.3 x 7.5 cm LEFT KIDNEY: 10.3 x 5.6 x 6.9 cm FINDINGS: The left renal pelvis is slightly dilated. Again noted is an area of fluid and air collection in the right kidney not significantly changed maximum diameter of 7.0 cm. The bladder is not fully distended , however grossly unremarkable. CONCLUSION: No appreciable change in fluid gas collection within the right kidney probably an abscess in the [facility] clinical setting. Laura Echeverria MD on November 28, 2017 at 17:58 Board Certified Radiologist. This report was verified electronically.
[2017-11-28 20:00] VITALS: BP 141/70; PULSE 79; RESP 18; TEMP 98; O2SAT 99
[2017-11-28] MEDS: MICONAZOLE NITRATE 2% VAG CREAM 45 GM VAGINAL SCH (21:13)
[2017-11-29] VITALS: BP 164/84; PULSE 84; RESP 16; TEMP 98; O2SAT 97
[2017-11-29 04:00] VITALS: BP 160/76; PULSE 90; RESP 16; TEMP 98.9; O2SAT 98
[2017-11-29] MEDS: PIPERACIL-TAZO 3.375 GM PREMIX 50 ML IV SCH ×4 (04:09→22:11)
[2017-11-29 08:00] VITALS: BP 198/83; PULSE 86; RESP 18; TEMP 98.2; O2SAT 97
[2017-11-29 08:09] LABS: HEMATOCRIT 26.4 % (35.0-46.0); HEMOGLOBIN 8.8 GM/DL (11.6-15.3); MEAN CELL VOLUME 85.5 FL (80.0-100.0); MEAN CORPUSCULAR HEMOGLOBIN 28.5 PG (27.0-34.0); MEAN CORPUSCULAR HGB CONC 33.3 % (32.0-36.0); MEAN PLATELET VOLUME 7.3 FL (7.0-11.0); PLATELET COUNT 443 TH/MM3 (150-450); RED BLOOD COUNT 3.09 MIL/MM3 (4.00-5.30); RED CELL DISTRIBUTION WIDTH 18.1 % (11.6-17.2); WHITE BLOOD COUNT 10.8 TH/MM3 (4.0-11.0)
[2017-11-29 08:18] LABS: CALCIUM 9.7 MG/DL (8.5-10.1); CREATININE 1.22 MG/DL (0.50-1.00)
[2017-11-29] MEDS: INSULIN ASPART SUPPLEMENTAL SCALE SQ SCH ×4 (08:21→21:00)
[2017-11-29] MEDS: SODIUM CHLORIDE 0.9% FLUSH 10 ML FLUSH IV FLUSH SCH ×2 (08:21→22:12)
[2017-11-29] MEDS: DOCUSATE SODIUM 50 MG/SENNA 8.6 MG TAB PO SCH ×2 (08:22→22:11)
[2017-11-29] MEDS: FERROUS SULFATE 325 MG (65 MG ELEMENTAL IRON) TAB PO SCH ×2 (08:22→22:11)
[2017-11-29] MEDS: ASPIRIN EC 325 MG TABEC PO SCH (08:22)
[2017-11-29] MEDS: GEMFIBROZIL 600 MG TAB PO SCH (08:22)
[2017-11-29] MEDS: LISINOPRIL 20 MG TAB PO SCH (08:23)
[2017-11-29] MEDS: MULTIVITAMIN TAB PO SCH (08:23)
[2017-11-29] MEDS: PANTOPRAZOLE SOD 40 MG DELAYED RELEASE TAB PO SCH (08:23)
[2017-11-29] MEDS: PRAVASTATIN SOD 10 MG TAB PO SCH (08:23)
[2017-11-29] MEDS: HYDROCHLOROTHIAZIDE 12.5 MG CAP PO SCH (08:23)
[2017-11-29] MEDS: ACETAMINOPHEN/HYDROcodone 325 MG/7.5 MG TAB PO PRN ×3 (08:46→22:11)
--- NOTE | 2017-11-29 11:06 | HHI.FPPN ---
Subjective Remarks Sitting on side of bed, no distress. Has pain over the bladder, but nowhere else. Does not have flank tenderness. Dysuria is resolved. Does not report urinary urgency. No chest pain or shortness of breath. No nausea or vomiting. No calf tenderness or swelling. (Eric Bertrand MD R3) Objective Vitals Vital Signs Date Time Temp Pulse Resp B/P (MAP) Pulse Ox O2 Delivery O2 Flow Rate FiO2 11/29/17 08:00 98.2 86 18 198/83 (121) 97 11/29/17 04:00 Room Air 11/29/17 04:00 98.9 90 16 160/76 (104) 98 11/29/17 00:00 98.0 84 16 164/84 (110) 97 11/28/17 20:00 98.0 79 18 141/70 (93) 99 11/28/17 20:00 Room Air 11/28/17 17:12 168/70 (102) 11/28/17 16:00 98.6 84 20 180/79 (112) 94 I/O 11/28/17 11/28/17 11/28/17 11/29/17 11/29/17 11/29/17 07:00 15:00 23:00 07:00 15:00 23:00 Intake Total 50 ml 530 ml 50 ml Output Total 1000 ml Balance 50 ml -470 ml 50 ml Intake Oral 480 ml IV Total 50 ml 50 ml 50 ml Output Urine Total 1000 ml # Voids 3 2 (Eric Bertrand MD R3) Result Diagram: 11/29/17 0744 11/29/17 0744 Imaging Last 72 hours Impressions Renal Ultrasound 11/28/17 0000 Signed Impressions: Service Date/Time: Tuesday, November 28, 2017 16:52 - CONCLUSION: No appreciable change in fluid gas collection within the right kidney probably an abscess in the appropriate clinical setting. Laura Echeverria MD Objective Remarks GENERAL: Sitting up on the side of the bed, not in any distress, pleasant demeanor SKIN: No rashes or lesions HEENT: Normocephalic, no conjunctivitis, no nasal discharge NECK: Supple, no lymphadenopathy, no thyromegaly CARDIOVASCULAR: 2/6 systolic ejection murmur, otherwise regular rate and rhythm , normal pulses and cap refill RESPIRATORY: CTAB, no respiratory distress GASTROINTESTINAL: Mild tenderness to palpation over the bladder MUSCULOSKELETAL: No calf swelling or tenderness. BACK: No CVA tenderness NEUROLOGICAL: Awake and alert. Motor and sensory grossly within normal limits. Normal speech. (Eric Bertrand MD R3) A/P Assessment and Plan 67 y/o female with history of hypertension, diabetes, multiple drug-resistant UTIs in the past presents with UTI that failed outpatient therapy with Keflex. No signs of sepsis or pyelonephritis at this time Discharge Planning Pending antibiotic recommendations from infectious disease for MDR pseudomonas UTI, will likely go back home with walker. Has good family support at home. If she needs intermediate IV antibiotics this will need to be set up for her. (Eric Bertrand MD R3) Attending Attestation THIS CASE WAS DISCUSSED WITH THE RESIDENT PHYSICIANS. I HAVE REVIEWED THE RECORD , PATIENT SEEN AND EXAMINED AND AGREE WITH THE ABOVE NOTE AND PLAN OF CARE WAS DISCUSSED. I HAVE AUTHORIZED THE ORDER SET (French Salter MD) Problem List: (1) UTI (urinary tract infection) ICD Codes: N39.0 - Urinary tract infection, site not specified Plan: UA shows moderate leukocyte esterase, negative nitrites, 39 WBC, rare bacteria. Symptomatic with dysuria and urinary frequency, but symptoms resolving with antibiotics. Urine culture with pseudomonas, resistant to multiple oral antibiotics. Tye count of pseudomonas is <10K. Has been afebrile, white count trending down, non-toxic appearing. - Continue Zosyn for pseudomonas coverage. - Consulted infectious disease for MDR pseudomonas UTI, appreciate antibiotic recommendations. - Would benefit from long-term antibiotics for recurrent UTI's, she's had multiple UTI's in the last few months. - May benefit from cystoscopy or urodynamic studies as an outpatient, will continue to discuss. - Obtain a post-void residual volume to assess for urinary retention. - Repeat UA and culture. - Has 7 cm possible renal abscess. Will discuss finding with radiology and obtain recommendations for further imaging. May require drainage if it is indeed an abscess. (2) Yeast infection of the vagina ICD Codes: B37.3 - Candidiasis of vulva and vagina Status: Acute Plan: Likely vaginal candidiasis; broad-spectrum antibiotic use, burning, irritation, thick white cottage cheese discharge, no odor Vaginal candidiasis versus BV versus Trichomonas Patient has used miconazole/Monistat vaginal tab before Start Monistat- 7 2% cream now on vagina, and nightly for 7 nights, has symptomatic improvement (3) Anemia ICD Codes: D64.9 - Anemia, unspecified Status: Acute Plan: History of iron deficiency anemia. - Continue home Iron (4) DELLA (acute kidney injury) ICD Codes: N17.9 - Acute kidney failure, unspecified Status: Acute Plan: Creatinine of 1.23 on admission. Elevated during last admission. Did decrease to a low of 0.94 a few weeks ago. - Avoid nephrotoxic agents - Has good PO intake of fluids, will stop IV fluids - Follow renal function (5) Hypertension Status: Chronic Plan: Elevated blood pressures - Lisinopril 30 mg daily - Amlodipine 10 mg daily - HCTZ 12.5 mg daily - Vasotec PRN (6) Diabetes mellitus ICD Codes: E11.9 - Type 2 diabetes mellitus without complications Status: Chronic Plan: Diabetes with long-term insulin use and gastroparesis per clinic notes - Hold home insulin - Low dose sliding scale while inpatient - Regular accuchecks (7) FEN Status: Acute Plan: Fluids: PO fluids Electrolytes: monitor and replace PRN Nutrition: Diabetic diet DVT ppx: lovenox 40 mg every 24hrs (Eric Bertrand MD R3) Problem Qualifiers (1) UTI (urinary tract infection): Qualified Codes: N30.00 - Acute cystitis without hematuria (2) Anemia: Qualified Codes: D50.9 - Iron deficiency anemia, unspecified Eric Bertrand MD R3 Nov 29, 2017 11:06 French Salter MD Nov 30, 2017 15:43
[2017-11-29 12:00] VITALS: BP 170/73; PULSE 87; RESP 20; TEMP 98.6; O2SAT 97
[2017-11-29] MEDS: ENOXAPARIN SODIUM 40 MG/0.4 ML SYRINGE SQ SCH (12:39)
--- NOTE | 2017-11-29 12:49 | HHI.IDPN ---
Note Infectious Disease Note Patient feels stressed about being sick. No new complaints. Afebrile. Ultrasound re[port noted. AST MEDICAL HISTORY 1. Diabetes mellitus. 2. Hypertension. 3. Hyperlipidemia. 4. Congestive heart failure. 5. Multiple urinary tract infections. 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 7. Nephrostomy in 2017. ALLERGIES METFORMIN. CLONIDINE. ANTIBIOTICS: Piperacillin / Tazobactam. Current Medications Medications (Trade) Dose Ordered Sig/Alisha Route PRN Reason Start Time Stop Time Status Last Admin Dose Admin Sodium Chloride (NS Flush) 2 ml UNSCH PRN IV FLUSH FLUSH AFTER USING IV ACCESS 11/26/17 11:15 Sodium Chloride (NS Flush) 2 ml BID IV FLUSH 11/26/17 21:00 11/29/17 08:21 Acetaminophen (Tylenol) 650 mg Q4H PRN PO TEMP > 100.4 11/26/17 11:15 Ondansetron HCl (Zofran Inj) 4 mg Q6H PRN IVP NAUSEA OR VOMITING 11/26/17 11:15 Enoxaparin Sodium (Lovenox Inj) 40 mg Q24H SQ 11/26/17 12:00 11/29/17 12:39 Naloxone HCl (Narcan Inj) 0.4 mg UNSCH PRN IV PUSH SEE LABEL COMMENTS 11/26/17 11:15 Senna/Docusate Sodium (Bridgette-Colace) 1 tab BID PO 11/26/17 21:00 11/29/17 08:22 Magnesium Hydroxide (Milk Of Magnesia Liq) 30 ml Q12H PRN PO Mild constipation 11/26/17 11:15 11/28/17 16:55 Sennosides (Senokot) 17.2 mg Q12H PRN PO Moderate constipation 11/26/17 11:15 Bisacodyl (Dulcolax Supp) 10 mg DAILY PRN RECTAL SEVERE CONSITIPATION 11/26/17 11:15 Lactulose (Lactulose Liq) 30 ml DAILY PRN PO SEVERE CONSITIPATION 11/26/17 11:15 Amlodipine Besylate (Norvasc) 10 mg DAILY PO 11/27/17 09:00 11/29/17 08:23 Aspirin (Ecotrin Ec) 325 mg DAILY PO 11/27/17 09:00 11/29/17 08:22 Ferrous Sulfate (Ferrous Sulfate) 325 mg BID PO 11/26/17 21:00 11/29/17 08:22 Gemfibrozil (Lopid) 300 mg DAILY PO 11/27/17 09:00 11/29/17 08:22 Multivitamins (Theragran) 1 tab DAILY PO 11/27/17 09:00 11/29/17 08:23 Pantoprazole Sodium (Protonix) 40 mg DAILY PO 11/27/17 09:00 11/29/17 08:23 Pravastatin Sodium (Pravachol) 10 mg DAILY PO 11/27/17 09:00 11/29/17 08:23 Patient Own Medication PT OWN MED: (Erythromycin Base 250 MG) BID PO 11/26/17 21:00 Future Hold Dextrose (D50w (Vial) Inj) 50 ml UNSCH PRN IV PUSH HYPOGLYCEMIA-SEE COMMENTS 11/26/17 11:15 Glucagon (Glucagon Inj) 1 mg UNSCH PRN OTHER HYPOGLYCEMIA-SEE COMMENTS 11/26/17 11:15 Insulin Aspart (NovoLOG SUPPLEMENTAL SCALE) 1 ACHS SLIDING SCALE SQ 11/26/17 12:00 11/29/17 12:38 Lisinopril (Prinivil) 30 mg DAILY PO 11/27/17 09:00 11/29/17 08:23 Enalaprilat (Vasotec Inj) 1.25 mg Q6H PRN IV PUSH SEE LABEL COMMENTS 11/26/17 14:00 11/27/17 05:23 Morphine Sulfate (Morphine Inj) 2 mg Q3H PRN IV PUSH BREAKTHROUGH PAIN 11/26/17 14:00 Acetaminophen/ Hydrocodone Bitart ([place] 5-325 Mg) 1 tab Q4H PRN PO PAIN SCALE 3 TO 5 11/26/17 14:15 11/28/17 16:43 Acetaminophen/ Hydrocodone Bitart ([place] 7.5-325 Mg) 1 tab Q4H PRN PO PAIN SCALE 6 TO 10 11/26/17 14:15 11/29/17 08:46 Piperacillin Sod/ Tazobactam Sod 50 ml @ 100 mls/hr Q6H IV 11/27/17 10:00 11/29/17 10:14 Miconazole Nitrate (Monistat 7 Vag Cream) 1 appl HS VAGINAL 11/28/17 21:00 12/03/17 21:01 11/28/17 21:13 Hydrochlorothiazide (Microzide) 12.5 mg DAILY PO 11/27/17 10:00 11/29/17 08:23 OBJECTIVE: Vital Signs Date Time Temp Pulse Resp B/P (MAP) Pulse Ox O2 Delivery O2 Flow Rate FiO2 11/29/17 08:00 98.2 86 18 198/83 (121) 97 11/29/17 04:00 Room Air 11/29/17 04:00 98.9 90 16 160/76 (104) 98 11/29/17 00:00 98.0 84 16 164/84 (110) 97 11/28/17 20:00 98.0 79 18 141/70 (93) 99 11/28/17 20:00 Room Air 11/28/17 17:12 168/70 (102) 11/28/17 16:00 98.6 84 20 180/79 (112) 94 Laboratory Tests Test 11/28/17 13:18 11/29/17 07:44 White Blood Count 13.0 TH/MM3 10.8 TH/MM3 Red Blood Count 3.24 MIL/MM3 3.09 MIL/MM3 Hemoglobin 9.0 GM/DL 8.8 GM/DL Hematocrit 27.6 % 26.4 % Mean Corpuscular Volume 85.1 FL 85.5 FL Mean Corpuscular Hemoglobin 27.7 PG 28.5 PG Mean Corpuscular Hemoglobin Concent 32.5 % 33.3 % Red Cell Distribution Width 18.4 % 18.1 % Platelet Count 450 TH/MM3 443 TH/MM3 Mean Platelet Volume 6.9 FL 7.3 FL Neutrophils (%) (Auto) 56.1 % Lymphocytes (%) (Auto) 30.6 % Monocytes (%) (Auto) 5.5 % Eosinophils (%) (Auto) 6.5 % Basophils (%) (Auto) 1.3 % Neutrophils # (Auto) 7.3 TH/MM3 Lymphocytes # (Auto) 4.0 TH/MM3 Monocytes # (Auto) 0.7 TH/MM3 Eosinophils # (Auto) 0.9 TH/MM3 Basophils # (Auto) 0.2 TH/MM3 CBC Comment DIFF FINAL Differential Comment Laboratory Tests Test 11/28/17 13:18 11/29/17 07:44 Blood Urea Nitrogen 17 MG/DL 17 MG/DL Creatinine 1.20 MG/DL 1.22 MG/DL Random Glucose 174 MG/DL 168 MG/DL Calcium Level 9.2 MG/DL 9.7 MG/DL Sodium Level 138 MEQ/L 138 MEQ/L Potassium Level 3.5 MEQ/L 3.7 MEQ/L Chloride Level 105 MEQ/L 105 MEQ/L Carbon Dioxide Level 23.6 MEQ/L 23.0 MEQ/L Anion Gap 9 MEQ/L 10 MEQ/L Estimat Glomerular Filtration Rate 55 ML/MIN 54 ML/MIN Microbiology Date/Time Source Procedure Growth Status 11/26/17 17:00 Blood Peripheral Aerobic Blood Culture - Preliminary NO GROWTH IN 3 DAYS Resulted 11/26/17 17:00 Blood Peripheral Anaerobic Blood Culture - Preliminary NO GROWTH IN 3 DAYS Resulted 11/26/17 16:45 Blood Peripheral Aerobic Blood Culture - Preliminary NO GROWTH IN 3 DAYS Resulted 11/26/17 16:45 Blood Peripheral Anaerobic Blood Culture - Preliminary NO GROWTH IN 3 DAYS Resulted PHYSICAL EXAMINATION GENERAL: No acute distress. She is awake and alert and oriented. HEENT: Head is atraumatic. Extraocular movements grossly intact, pupils reactive to light. No icterus. Oropharynx moist mucosa without lesions. NECK: Supple without adenopathy. LUNGS: Clear to auscultation. CARDIOVASCULAR: Regular rate and rhythm without murmurs, rubs or gallops. ABDOMEN: Bowel sounds present, soft, minimal tenderness on palpation of the lower mid abdomen. No flank tenderness. EXTREMITIES: No clubbing or cyanosis or edema. SKIN: No rash. NEUROLOGIC: No gross focal findings. PSYCHIATRIC: Calm and cooperative. Stressed about the finding on ultrasound. IMPRESSION Recurrent urinary tract infection due to Pseudomonas. resistant to levaquin. Abnormal ultrasound of the right kidney with air/fluid level. ? abscess. RECOMMENDATION: Continue Zosyn IV. Obtain CT of the abdomen/pelvis to evaluate the right kidney fluid collection. Discussed with radiologist. Radiological drainage if feasible. Repeat urine culture. Nikita Griffin MD Nov 29, 2017 12:49
[2017-11-29] MEDS ORDERED: IOHEXOL 350 MG/ML 10 ML VIAL (for RAD DIAG) IVCONTRAST ONE (15:06)
--- NOTE | 2017-11-29 15:15 | RADRPT ---
EXAM DATE/TIME: 11/29/2017 14:41 [facility] COMPARISON: CT ABDOMEN & PELVIS W/O CONTRAST, October 13, 2017, 9:53. US KIDNEY/RENAL/B LADDER, November 28, 2017, 16:52. INDICATIONS : Abscess evaluate drainage. IV CONTRAST: 76 cc Omnipaque 350 (iohexol) IV ORAL CONTRAST: No oral contrast ingested. RADIATION DOSE: 10.27 CTDIvol (mGy) MEDICAL HISTORY : Cardiovascular disease. Hypertension. Diabetes mellitus type 2. SURGICAL HISTORY : Nephrectomy, right. ENCOUNTER: Subsequent ACUITY: 2 months PAIN SCALE: 0/10 LOCATION: Right Abdomen TECHNIQUE: Volumetric scanning of the abdomen and pelvis was performed. Using automated exposure control and adjustment of the mA and/or kV according to patient size, radiation dose was kept as low as reasonably achievable to obtain optimal diagnostic quality images. DICOM format image data is av ailable electronically for review and comparison. FINDINGS: CT Abdomen: There is an approximate 7.7 cm fluid and gas collection in the right kidney highly suspic ious for abscess. This is amenable to percutaneous guided drainage slightly larger since the prior CT examination from 10/13/2017. There appears to be better enhancement of right kidney since the prior examination and overall improvement in pyelonephritis, however the above abscess persists and appears slightly larger. There are additional cysts in both kidneys. Tiny pericardial effusion is seen. The liver, spleen, pancreas, adrenals are unremarkable. There is no evidence for any appreciable patholog ical adenopathy, free fluid, or bowel obstruction. Double J stent is present on the right side with proximal tip overlapping the kidney and distal tip overlapping the bladder. No definite calcified sto kulwinder are identified adjacent to the stent. CT pelvis: There is no evidence for mass, abscess formation, or any significant adenopathy within the pelvis. CONCLUSION: There is slight increase in size of the gas and fluid collection in the right kidney which has the appearance of an abscess and amenable to percutaneous guided drainage. There is however overall better enhancement of the right kidney since the prior study probably improvement in pyelone phritis. Laura Echeverria MD on November 29, 2017 at 15:06 Board Certified Radiologist. This report was verified electronically.
[2017-11-29 15:46] LABS: BACTERIA, URINE OCC /hpf; BILIRUBIN, URINE NEG (NEG); BLOOD, URINE SMALL (NEG); GLUCOSE,URINE TRACE mg/dL (NEG); KETONE, URINE NEG (NEG); NITRITE,URINE NEG (NEG); SQUAMOUS EPITHELIAL CELL URINE 1 /hpf (0-5); TRANSITIONAL EPI CELLS, URINE <1 /hpf; URINE COLOR LIGHT-YELLOW (YELLW/STRAW); URINE LEUKOCYTE ESTERASE LARGE (NEG)
[2017-11-29 16:00] VITALS: BP 181/76; PULSE 89; RESP 20; TEMP 99; O2SAT 96
--- NOTE | 2017-11-29 16:19 | MB ---
cc: LUCIA HUTCHINSON MD DATE OF CONSULTATION 11/29/2017 REASONS FOR CONSULTATION 1. Possible right renal abscess. 2. History of emphysematous pyelonephritis. 3. Urinary tract infection. HISTORY OF THE PRESENT ILLNESS The patient is a 67-year-old -[place] female with a history of diabetes and emphysematous pyelonephritis with associated perinephric abscess status post percutaneous drainage in the fall of last year, was admitted on 11/26/2017 after complaining of dysuria, urinary frequency for about 5 days. She went to the ER [facility], was diagnosed with urinary tract infection and was started on Keflex. Initially this was improved, however, her urinary frequency increased and she made persistent dysuria. ___ she denied any fever or chills, nausea or vomiting, flank pain or hematuria. Due to her past history she was then subsequently admitted and started on IV antibiotics for her urinary tract infection. She was seen by infectious disease who recommended a renal ultrasound which showed a possible renal abscess with air surrounding the kidney. A CT of the abdomen and pelvis with and without contrast was subsequently ordered which showed a 7 cm fluid collection in the anterior portion of the right upper pole of her kidney consistent with a renal abscess. Urology was consulted for these findings. Currently the patient is denies any flank pain, fever or chills. She just however, complains of lower abdominal pain. She also has urgency and frequency. Her diabetes has been better controlled over the past month as well. REVIEW OF SYSTEMS See history of present illness. Otherwise all systems reviewed are negative. PAST MEDICAL HISTORY Significant for: 1. Diabetes. 2. Hypertension. 3. Emphysematous pyelonephritis. 4. Urinary tract infections. PAST SURGICAL HISTORY 1. She had a . 2. Cystoscopy with stent placement. 3. Percutaneous drainage of perinephric abscess. MEDICATIONS Include: 1. Lisinopril. 2. NovoLog. 3. Aspirin. 4. Norvasc. 5. Pravastatin. ALLERGIES METFORMIN, CLONIDINE, ROCEPHIN. FAMILY HISTORY Denies urolithiasis, urinary malignancies. SOCIAL HISTORY Lives at home with her . Denies illicit drug, tobacco or alcohol use. PHYSICAL EXAMINATION VITAL SIGNS: Temperature 98.6, pulse 87, respiratory rate 20, blood pressure 170/73, sating 97% on room air. GENERAL: She is alert and oriented times three. In no apparent distress. Pleasant and cooperative. Appears to be her stated age. HEENT: Head is normocephalic, atraumatic. Extraocular muscles intact. No scleral icterus. NECK: Supple. Trachea is midline. No JVD. SKIN: No ulcers or rashes are visible. Mucous membranes are pink and moist. LUNGS: Clear to auscultation bilaterally. No wheezes, rales or rhonchi. HEART: Regular rhythm. No murmurs, gallops or rubs. ABDOMEN: Soft, nontender. Nondistended. Positive bowel sounds. GENITOURINARY: No CVA tenderness bilaterally. PELVIC: Examination not indicated at this time. EXTREMITIES: Nontender. No clubbing, cyanosis, edema. PSYCHIATRIC: Normal affect. Answers questions appropriately. NEUROLOGIC: Cranial nerves II through XII intact. Strength 5/5 in all four extremities. LABORATORY DATA Show a white count of 10.8, hemoglobin 8.8, hematocrit 26.4, platelet count 443. Sodium 138, potassium 3.7, chloride 105, bicarb 23.0, BUN 17, creatinine 1.22, glucose 168. Her urine showed moderate blood, moderate leukocyte esterase. Urine culture grew out Pseudomonas less than 10,000. IMAGING STUDIES CT of the abdomen and pelvis with and without contrast, images reviewed, agree with radiologist's report. The patient has a 7 cm fluid collection in the right kidney consistent with perinephric abscess. PLAN The patient is a 67-year-old -[place] female with a history of diabetes as well as emphysematous pyelonephritis, was admitted with urgency, frequency and found to have a 7 cm right perinephric abscess. PLAN 1. We will have interventional radiology drain this perinephric abscess. 2. Defer antibiotic coverage to infectious disease which is already involved in the case. 3. She will eventually need her stent removed but it is best to drain the abscess first at this time and keep her kidney maximally decompressed due to her past complex urological history. Thank you for this consultation. We will follow along with you. MD NALINI Singer/DHRUV /3:12 PM /3:25 PM
[2017-11-29 18:58] LABS: INTERNATIONAL NORMALIZED RATIO 1.1 RATIO; PROTHROMBIN TIME - PATIENT 10.7 SEC (9.8-11.6)
[2017-11-29 20:00] VITALS: BP 170/80; PULSE 84; RESP 18; TEMP 98.1; O2SAT 97
[2017-11-29] MEDS: MICONAZOLE NITRATE 2% VAG CREAM 45 GM VAGINAL SCH (21:00)
[2017-11-29] MEDS: ENALAPRILAT 1.25 MG/ML VIAL IV PUSH PRN (22:13)
[2017-11-30] VITALS (7 sets, daily range): BP systolic 136–172; BP diastolic 72–96; PULSE 80–93; RESP 16–20; TEMP 97.3–99.2; O2SAT 96–98
[2017-11-30] MEDS: PIPERACIL-TAZO 3.375 GM PREMIX 50 ML IV SCH ×4 (03:56→20:56)
[2017-11-30] MEDS: ACETAMINOPHEN/HYDROcodone 325 MG/7.5 MG TAB PO PRN ×4 (04:37→22:47)
[2017-11-30 06:48] LABS: HEMATOCRIT 26.2 % (35.0-46.0); HEMOGLOBIN 8.9 GM/DL (11.6-15.3); MEAN CELL VOLUME 84.2 FL (80.0-100.0); MEAN CORPUSCULAR HEMOGLOBIN 28.7 PG (27.0-34.0); MEAN PLATELET VOLUME 7.6 FL (7.0-11.0); PLATELET COUNT 469 TH/MM3 (150-450); RED BLOOD COUNT 3.11 MIL/MM3 (4.00-5.30); RED CELL DISTRIBUTION WIDTH 18.2 % (11.6-17.2); WHITE BLOOD COUNT 11.7 TH/MM3 (4.0-11.0)
[2017-11-30 07:07] LABS: BICARBONATE 24.2 MEQ/L (21.0-32.0); CALCIUM 9.8 MG/DL (8.5-10.1); CREATININE 1.38 MG/DL (0.50-1.00)
[2017-11-30] MEDS: INSULIN ASPART SUPPLEMENTAL SCALE SQ SCH ×4 (08:00→20:57)
[2017-11-30] MEDS: FERROUS SULFATE 325 MG (65 MG ELEMENTAL IRON) TAB PO SCH ×2 (09:00→20:56)
[2017-11-30] MEDS: DOCUSATE SODIUM 50 MG/SENNA 8.6 MG TAB PO SCH ×3 (09:00→20:59)
[2017-11-30] MEDS: PANTOPRAZOLE SOD 40 MG DELAYED RELEASE TAB PO SCH (09:00)
[2017-11-30] MEDS: SODIUM CHLORIDE 0.9% FLUSH 10 ML FLUSH IV FLUSH SCH ×2 (09:00→20:56)
[2017-11-30] MEDS: GEMFIBROZIL 600 MG TAB PO SCH (09:00)
[2017-11-30] MEDS: LISINOPRIL 20 MG TAB PO SCH (09:00)
[2017-11-30] MEDS: PRAVASTATIN SOD 10 MG TAB PO SCH (09:00)
[2017-11-30] MEDS: MULTIVITAMIN TAB PO SCH (09:00)
[2017-11-30] MEDS: HYDROCHLOROTHIAZIDE 25 MG TAB PO SCH (09:15)
[2017-11-30] MEDS ORDERED: POTASSIUM CHLORIDE 20 MEQ CONTROLLED RELEASE TAB PO ONE (09:15)
--- NOTE | 2017-11-30 09:45 | HHI.FPPN ---
Subjective Remarks Sitting up in bed, no distress, appears well. Has no complaints this morning. Lower abdominal pain is improved. No dysuria or urgent urination. No flank tenderness. No chest pain or shortness of breath. No nausea, vomiting, diarrhea. Was planning on renal abscess drainage today but may not be able to get due to aspirin use yesterday. (Eric Bertrand MD R3) Objective Vitals Vital Signs Date Time Temp Pulse Resp B/P (MAP) Pulse Ox O2 Delivery O2 Flow Rate FiO2 11/30/17 08:00 99.2 85 20 165/96 (119) 96 11/30/17 07:00 96 Room Air 11/30/17 04:00 98.2 82 16 160/74 (102) 98 11/30/17 00:00 98.0 80 18 164/72 (102) 97 11/29/17 20:00 98.1 84 18 170/80 (110) 97 11/29/17 19:00 97 Room Air 11/29/17 16:00 99.0 89 20 181/76 (111) 96 11/29/17 12:00 98.6 87 20 170/73 (105) 97 I/O 11/29/17 11/29/17 11/29/17 11/30/17 11/30/17 11/30/17 07:00 15:00 23:00 07:00 15:00 23:00 Intake Total 50 ml 480 ml 240 ml Output Total 1350 ml 1000 ml Balance 50 ml -870 ml -760 ml Intake Oral 480 ml 240 ml IV Total 50 ml Output Urine Total 1350 ml 1000 ml # Bowel Movements 1 1 (Eric Bertrand MD R3) Result Diagram: 11/30/17 0406 11/30/17 0409 Imaging Last 72 hours Impressions Abdomen/Pelvis CT 11/29/17 0000 Signed Impressions: Service Date/Time: Wednesday, November 29, 2017 14:41 - CONCLUSION: There is slight increase in size of the gas and fluid collection in the right kidney which has the appearance of an abscess and amenable to percutaneous guided drainage. There is however overall better enhancement of the right kidney since the prior study probably improvement in pyelonephritis. Laura Echeverria MD Renal Ultrasound 11/28/17 0000 Signed Impressions: Service Date/Time: Tuesday, November 28, 2017 16:52 - CONCLUSION: No appreciable change in fluid gas collection within the right kidney probably an abscess in the appropriate clinical setting. Laura Echeverria MD Objective Remarks GENERAL: Sitting up, no distress SKIN: No rashes or lesions HEENT: Normocephalic, no conjunctivitis, no nasal discharge NECK: Supple, no lymphadenopathy, no thyromegaly CARDIOVASCULAR: 2/6 systolic ejection murmur, otherwise regular rate and rhythm , normal pulses and cap refill RESPIRATORY: CTAB, no respiratory distress GASTROINTESTINAL: No tenderness to palpation today, normal bowel sounds MUSCULOSKELETAL: No calf swelling or tenderness. BACK: No CVA tenderness NEUROLOGICAL: Awake and alert. Motor and sensory grossly within normal limits. Normal speech. (Eric Bertrand MD R3) A/P Assessment and Plan 67 y/o female with history of hypertension, diabetes, multiple drug-resistant UTIs in the past presents with UTI that failed outpatient therapy with Keflex. Discharge Planning Pending antibiotic recommendations from infectious disease for MDR pseudomonas UTI, will likely go back home with walker. Has good family support at home. If she needs termination clerk IV antibiotics this will need to be set up for her. Needs renal abscess drained, may get done in the hospital before discharge or may have done as an outpatient. Will defer to urology for that decision. Would benefit from long-term antibiotics for prophylactic protection against recurrent UTI's. (Eric Bertrand MD R3) Attending Attestation THIS CASE WAS DISCUSSED WITH THE RESIDENT PHYSICIANS DR BERTRAND I HAVE REVIEWED THE RECORD, PATIENT SEEN AND EXAMINED AND AGREE WITH THE ABOVE NOTE AND PLAN OF CARE WAS DISCUSSED. I HAVE AUTHORIZED THE ORDER SET (French Salter MD) Problem List: (1) UTI (urinary tract infection) ICD Codes: N39.0 - Urinary tract infection, site not specified Plan: UA shows moderate leukocyte esterase, negative nitrites, 39 WBC, rare bacteria. Symptomatic with dysuria and urinary frequency, but symptoms resolving with antibiotics. Urine culture with pseudomonas, resistant to multiple oral antibiotics. [place] count of pseudomonas is <10K. Has been afebrile, white count trending down, non-toxic appearing. - Continue Zosyn for pseudomonas coverage. - Consulted infectious disease for MDR pseudomonas UTI, appreciate antibiotic recommendations. May require long-term IV antibiotics given resistance of pseudomonas to oral medications, will defer to infectious disease. - Would benefit from long-term antibiotics for recurrent UTI's, she's had multiple UTI's in the last few months. - Follow up repeat urine cultures. - May benefit from cystoscopy or urodynamic studies as an outpatient, will continue to discuss. - Obtain a post-void residual volume to assess for urinary retention. - Has 7 cm possible renal abscess. Will require drainage, consulted urology and interventional radiology. Unfortunately may have to wait at least 4 more days due to recent aspirin use and Lovenox, which are now on hold. May be able to get done as an outpatient, but will defer to urology on that decision. (2) Yeast infection of the vagina ICD Codes: B37.3 - Candidiasis of vulva and vagina Status: Acute Plan: Likely vaginal candidiasis; broad-spectrum antibiotic use, burning, irritation, thick white cottage cheese discharge, no odor Vaginal candidiasis versus BV versus Trichomonas versus vaginal atrophy Patient has used miconazole/Monistat vaginal tab before Started Monistat- 7 2% cream, and nightly for 7 nights, assess for improvement If not improving, will need pelvic exam with wet mount or cultures (3) Anemia ICD Codes: D64.9 - Anemia, unspecified Status: Acute Plan: History of iron deficiency anemia. - Continue home Iron (4) DELLA (acute kidney injury) ICD Codes: N17.9 - Acute kidney failure, unspecified Status: Acute Plan: Creatinine of 1.23 on admission. Elevated during last admission. Did decrease to a low of 0.94 a few weeks ago. - Avoid nephrotoxic agents - Has good PO intake of fluids, will stop IV fluids - Follow renal function - Will give NS at 100 mls/hr for acute renal injury after contrast agent, watch for fluid overload (5) Hypertension Status: Chronic Plan: Elevated blood pressures - Lisinopril 30 mg daily - Amlodipine 10 mg daily - HCTZ 12.5 mg daily, increased to 25 mg daily - Vasotec PRN (6) Diabetes mellitus ICD Codes: E11.9 - Type 2 diabetes mellitus without complications Status: Chronic Plan: Diabetes with long-term insulin use and gastroparesis per clinic notes - Hold home insulin - Low dose sliding scale while inpatient - Regular accuchecks (7) FEN Status: Acute Plan: Fluids: PO fluids plus NS at 100 mls/hr, watch for fluid overload Electrolytes: monitor and replace PRN Nutrition: Diabetic diet DVT ppx: Lovenox on hold for possible renal abscess drainage, apply bilateral SCD's. Aspirin also on hold for procedure. (Eric Bertrand MD R3) Problem Qualifiers (1) UTI (urinary tract infection): Qualified Codes: N30.00 - Acute cystitis without hematuria (2) Anemia: Qualified Codes: D50.9 - Iron deficiency anemia, unspecified Eric Bertrand MD R3 Nov 30, 2017 09:44 French Salter MD Nov 30, 2017 15:54
[2017-11-30] MEDS: SODIUM CHLOR 0.9% 1000 ML INJ 1,000 ML IV SCH ×2 (10:15→20:15)
[2017-11-30] MEDS: PHENAZOPYRIDINE HCL 200 MG TAB PO SCH ×2 (15:00→20:56)
[2017-11-30] MEDS: MICONAZOLE NITRATE 2% VAG CREAM 45 GM VAGINAL SCH (20:57)
[2017-11-30] MEDS: ENALAPRILAT 1.25 MG/ML VIAL IV PUSH PRN (20:59)
[2017-12-01] VITALS (7 sets, daily range): BP systolic 160–196; BP diastolic 72–99; PULSE 74–82; RESP 16–20; TEMP 97.4–98.5; O2SAT 94–97
[2017-12-01] MEDS: PIPERACIL-TAZO 3.375 GM PREMIX 50 ML IV SCH ×4 (03:03→21:11)
[2017-12-01] MEDS: ACETAMINOPHEN/HYDROcodone 325 MG/7.5 MG TAB PO PRN ×5 (03:03→21:11)
[2017-12-01] MEDS: PHENAZOPYRIDINE HCL 200 MG TAB PO SCH ×3 (05:25→21:11)
[2017-12-01] MEDS: INSULIN ASPART SUPPLEMENTAL SCALE SQ SCH ×4 (08:00→21:13)
[2017-12-01 08:47] LABS: HEMATOCRIT 26.9 % (35.0-46.0); HEMOGLOBIN 8.8 GM/DL (11.6-15.3); MEAN CELL VOLUME 86.1 FL (80.0-100.0); MEAN CORPUSCULAR HEMOGLOBIN 28.2 PG (27.0-34.0); MEAN CORPUSCULAR HGB CONC 32.7 % (32.0-36.0); MEAN PLATELET VOLUME 7.4 FL (7.0-11.0); PLATELET COUNT 459 TH/MM3 (150-450); RED BLOOD COUNT 3.12 MIL/MM3 (4.00-5.30); RED CELL DISTRIBUTION WIDTH 18.3 % (11.6-17.2); WHITE BLOOD COUNT 13.7 TH/MM3 (4.0-11.0)
[2017-12-01] MEDS: FERROUS SULFATE 325 MG (65 MG ELEMENTAL IRON) TAB PO SCH ×2 (08:50→21:11)
[2017-12-01] MEDS: SODIUM CHLORIDE 0.9% FLUSH 10 ML FLUSH IV FLUSH SCH ×2 (08:50→21:12)
[2017-12-01] MEDS: GEMFIBROZIL 600 MG TAB PO SCH (08:51)
[2017-12-01] MEDS: DOCUSATE SODIUM 50 MG/SENNA 8.6 MG TAB PO SCH ×2 (08:51→21:11)
[2017-12-01] MEDS: HYDROCHLOROTHIAZIDE 25 MG TAB PO SCH (08:51)
[2017-12-01] MEDS: PRAVASTATIN SOD 10 MG TAB PO SCH (08:51)
[2017-12-01] MEDS: LISINOPRIL 20 MG TAB PO SCH (08:52)
[2017-12-01] MEDS: PANTOPRAZOLE SOD 40 MG DELAYED RELEASE TAB PO SCH (08:52)
[2017-12-01] MEDS: MULTIVITAMIN TAB PO SCH (08:52)
[2017-12-01 09:13] LABS: BICARBONATE 22.9 MEQ/L (21.0-32.0); CALCIUM 9.5 MG/DL (8.5-10.1); CREATININE 1.8 MG/DL (0.50-1.00)
[2017-12-01] MEDS ORDERED: PILL SPLITTER OTHER PRN (14:00)
[2017-12-01] MEDS: METOPROLOL SUCCINATE 25 MG EXTENDED RELEASE TAB PO SCH (14:07)
[2017-12-01] MEDS: SODIUM CHLOR 0.9% 1000 ML INJ 1,000 ML IV SCH ×2 (14:08→16:15)
--- NOTE | 2017-12-01 14:28 | HHI.PR ---
Subjective Patient symptoms today denies any new issues. Denies flank pain, fevers. Objective Vital Signs Vital Signs Date Time Temp Pulse Resp B/P (MAP) Pulse Ox O2 Delivery O2 Flow Rate FiO2 12/01/17 12:00 98.3 80 20 173/99 (123) 96 12/01/17 10:15 97 Room Air 12/01/17 08:00 97.4 81 20 196/86 (122) 97 12/01/17 04:00 Room Air 12/01/17 04:00 97.8 82 18 160/72 (101) 97 12/01/17 00:00 Room Air 12/01/17 00:00 98.5 74 16 176/76 (109) 95 11/30/17 22:35 Room Air 11/30/17 20:00 98.4 93 18 172/84 (113) 97 11/30/17 19:26 16 11/30/17 17:53 97 21 11/30/17 16:00 97.3 85 20 166/77 (106) 97 Intake & Output 12/01/17 12/01/17 07:00 19:00 Intake Total 1340 ml 1050 ml Output Total 1400 ml Balance -60 ml 1050 ml Intake Oral 240 ml IV Total 1100 ml 1050 ml Output Urine Total 1400 ml # Bowel Movements 0 Result Diagram: 12/01/17 0809 12/01/17 0809 Objective Remarks NAD. A/O x 3 abd soft No CVAT Medications and IVs Current Medications Medications (Trade) Dose Ordered Sig/Alisha Route Start Time Stop Time Status Last Admin (NS Flush) 2 ml UNSCH PRN IV FLUSH 11/26/17 11:15 11/30/17 03:56 (NS Flush) 2 ml BID IV FLUSH 11/26/17 21:00 11/30/17 20:56 (Tylenol) 650 mg Q4H PRN PO 11/26/17 11:15 (Zofran Inj) 4 mg Q6H PRN IVP 11/26/17 11:15 (Lovenox Inj) 40 mg Q24H SQ 11/26/17 12:00 Future Hold 11/29/17 12:39 (Narcan Inj) 0.4 mg UNSCH PRN IV PUSH 11/26/17 11:15 (Bridgette-Colace) 1 tab BID PO 11/26/17 21:00 12/01/17 08:51 (Milk Of Magnesia Liq) 30 ml Q12H PRN PO 11/26/17 11:15 11/28/17 16:55 (Senokot) 17.2 mg Q12H PRN PO 11/26/17 11:15 (Dulcolax Supp) 10 mg DAILY PRN RECTAL 11/26/17 11:15 (Lactulose Liq) 30 ml DAILY PRN PO 11/26/17 11:15 (Norvasc) 10 mg DAILY PO 11/27/17 09:00 12/01/17 08:51 (Ecotrin Ec) 325 mg DAILY PO 11/27/17 09:00 Future Hold 11/29/17 08:22 (Ferrous Sulfate) 325 mg BID PO 11/26/17 21:00 12/01/17 08:50 (Lopid) 300 mg DAILY PO 11/27/17 09:00 12/01/17 08:51 (Theragran) 1 tab DAILY PO 11/27/17 09:00 12/01/17 08:52 (Protonix) 40 mg DAILY PO 11/27/17 09:00 12/01/17 08:52 (Pravachol) 10 mg DAILY PO 11/27/17 09:00 12/01/17 08:51 Patient Own Medication PT OWN MED: (Erythromycin Base 250 MG) BID PO 11/26/17 21:00 Future Hold (D50w (Vial) Inj) 50 ml UNSCH PRN IV PUSH 11/26/17 11:15 (Glucagon Inj) 1 mg UNSCH PRN OTHER 11/26/17 11:15 (NovoLOG SUPPLEMENTAL SCALE) 1 ACHS SLIDING SCALE SQ 11/26/17 12:00 12/01/17 11:48 (Prinivil) 30 mg DAILY PO 11/27/17 09:00 12/01/17 08:52 (Vasotec Inj) 1.25 mg Q6H PRN IV PUSH 11/26/17 14:00 11/30/17 20:59 (Morphine Inj) 2 mg Q3H PRN IV PUSH 11/26/17 14:00 ([place] 5-325 Mg) 1 tab Q4H PRN PO 11/26/17 14:15 11/28/17 16:43 ([place] 7.5-325 Mg) 1 tab Q4H PRN PO 11/26/17 14:15 12/01/17 11:39 Piperacillin Sod/ Tazobactam Sod 50 ml @ 100 mls/hr Q6H IV 11/27/17 10:00 12/01/17 09:54 (Monistat 7 Vag Cream) 1 appl HS VAGINAL 11/28/17 21:00 12/03/17 21:01 11/30/17 20:57 (Hydrodiuril) 25 mg DAILY PO 11/30/17 09:15 12/01/17 08:51 Sodium Chloride 1,000 ml @ 100 mls/hr Q10H IV 11/30/17 10:15 12/01/17 14:08 (Pyridium) 200 mg Q8HR PO 11/30/17 15:00 12/01/17 12:29 (Toprol Xl) 12.5 mg DAILY PO 12/01/17 13:15 12/01/17 14:07 (Pill Splitter) 1 ea UNSCH PRN OTHER 12/01/17 14:00 Assessment and Plan Assessment and Plan 67 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 -F/U as outpatient for stent removal Shahram Ramirez MD Dec 01, 2017 14:28
--- NOTE | 2017-12-01 16:45 | HHI.FPPN ---
Subjective Remarks Lying in bed, feeling comfortable. Had bladder spasms yesterday afternoon that have since resolved. Has no complaints this morning. She is nervous about her job, afraid she could lose her job if she does not get out of the hospital soon. No chest pain, shortness of breath, abdominal pain, nausea, vomiting, diarrhea. No calf tenderness. No frequent urination or dysuria. Remains afebrile. Has mild leukocytosis. (Eric Bertrand MD R3) Objective Vitals Vital Signs Date Time Temp Pulse Resp B/P (MAP) Pulse Ox O2 Delivery O2 Flow Rate FiO2 12/01/17 12:00 98.3 80 20 173/99 (123) 96 12/01/17 10:15 97 Room Air 12/01/17 08:00 97.4 81 20 196/86 (122) 97 12/01/17 04:00 Room Air 12/01/17 04:00 97.8 82 18 160/72 (101) 97 12/01/17 00:00 Room Air 12/01/17 00:00 98.5 74 16 176/76 (109) 95 11/30/17 22:35 Room Air 11/30/17 20:00 98.4 93 18 172/84 (113) 97 11/30/17 19:26 16 11/30/17 17:53 97 21 I/O 11/30/17 11/30/17 11/30/17 12/01/17 12/01/17 12/01/17 07:00 15:00 23:00 07:00 15:00 23:00 Intake Total 240 ml 1410 ml 290 ml 1050 ml Output Total 1000 ml 1600 ml 1400 ml Balance -760 ml -190 ml -1110 ml 1050 ml Intake Oral 240 ml 360 ml 240 ml IV Total 1050 ml 50 ml 1050 ml Output Urine Total 1000 ml 1600 ml 1400 ml # Bowel Movements 1 1 0 (Eric Bertrand MD R3) Result Diagram: 12/01/17 0809 12/01/17 0809 Imaging Last 72 hours Impressions Abdomen/Pelvis CT 11/29/17 0000 Signed Impressions: Service Date/Time: Wednesday, November 29, 2017 14:41 - CONCLUSION: There is slight increase in size of the gas and fluid collection in the right kidney which has the appearance of an abscess and amenable to percutaneous guided drainage. There is however overall better enhancement of the right kidney since the prior study probably improvement in pyelonephritis. Laura Echeverria MD Objective Remarks GENERAL: Lying in bed, no distress SKIN: No rashes or lesions HEENT: Normocephalic, no conjunctivitis, no nasal discharge NECK: Supple, no lymphadenopathy, no thyromegaly CARDIOVASCULAR: 2/6 systolic ejection murmur that is somewhat improved, otherwise regular rate and rhythm, normal pulses and cap refill RESPIRATORY: CTAB, no respiratory distress GASTROINTESTINAL: No tenderness to palpation today, normal bowel sounds MUSCULOSKELETAL: No calf swelling or tenderness. BACK: No CVA tenderness NEUROLOGICAL: Awake and alert. (Eric Bertrand MD R3) A/P Assessment and Plan 67 y/o female with history of hypertension, diabetes, multiple drug-resistant UTIs in the past presents with UTI that failed outpatient therapy with Keflex. Found to have persistent right renal abscess. Discharge Planning Pending antibiotic recommendations from infectious disease for MDR pseudomonas UTI, will likely go back home with walker. Has good family support at home. If she needs exterminator termite IV antibiotics this will need to be set up for her. Needs renal abscess drained, may get done in the hospital before discharge or may have done as an outpatient. Will defer to urology for that decision. Would benefit from long-term antibiotics for prophylactic protection against recurrent UTI's. (Eric Bertrand MD R3) Attending Attestation THIS CASE WAS DISCUSSED WITH THE RESIDENT PHYSICIAN Dr Britt Bertrand, Patient seen and examined. I HAVE REVIEWED THE RECORD AND AGREE WITH THE ABOVE NOTE AND PLAN OF CARE WAS DISCUSSED. I HAVE AUTHORIZED THE ORDER SET (French Salter MD) Problem List: (1) UTI (urinary tract infection) ICD Codes: N39.0 - Urinary tract infection, site not specified Plan: UA shows moderate leukocyte esterase, negative nitrites, 39 WBC, rare bacteria. Symptomatic with dysuria and urinary frequency, but symptoms resolving with antibiotics. Urine culture with pseudomonas, resistant to multiple oral antibiotics. [place] count of pseudomonas is <10K. Has been afebrile, mild leukocytosis, non-toxic appearing. - Continue Zosyn for pseudomonas coverage. - Consulted infectious disease for MDR pseudomonas UTI, appreciate antibiotic recommendations. May require long-term IV antibiotics given resistance of pseudomonas to oral medications, will defer to infectious disease. - Would benefit from long-term antibiotics for recurrent UTI's, she's had multiple UTI's in the last few months. - Follow up repeat urine cultures, negative to date. - May benefit from cystoscopy or urodynamic studies as an outpatient, will continue to discuss. - Obtain a post-void residual volume to assess for urinary retention. - Has 7 cm possible renal abscess. Will require drainage, consulted urology and interventional radiology. Unfortunately may have to wait at least 4 more days due to recent aspirin use and Lovenox, which are now on hold. Would be able to get done as an outpatient per urology. (2) Yeast infection of the vagina ICD Codes: B37.3 - Candidiasis of vulva and vagina Status: Acute Plan: Likely vaginal candidiasis; broad-spectrum antibiotic use, burning, irritation, thick white cottage cheese discharge, no odor Vaginal candidiasis versus BV versus Trichomonas versus vaginal atrophy Patient has used miconazole/Monistat vaginal tab before Started Monistat- 7 2% cream, and nightly for 7 nights, assess for improvement If not improving, will need pelvic exam with wet mount or cultures (3) Anemia ICD Codes: D64.9 - Anemia, unspecified Status: Acute Plan: History of iron deficiency anemia. - Continue home Iron (4) DELLA (acute kidney injury) ICD Codes: N17.9 - Acute kidney failure, unspecified Status: Acute Plan: Creatinine of 1.23 on admission. Elevated during last admission. Increased after receiving contrast agent. Did decrease to a low of 0.94 a few weeks ago. - Avoid nephrotoxic agents as much as possible - Continue IV fluids for DELLA, watch for fluid overload - Follow renal function (5) Hypertension Status: Chronic Plan: Elevated blood pressures - Lisinopril 30 mg daily - Amlodipine 10 mg daily - HCTZ 12.5 mg daily, increased to 25 mg daily - Added low dose metoprolol, 12.5 mg daily - Vasotec PRN (6) Diabetes mellitus ICD Codes: E11.9 - Type 2 diabetes mellitus without complications Status: Chronic Plan: Diabetes with long-term insulin use and gastroparesis per clinic notes - Hold home insulin - Low dose sliding scale while inpatient - Regular accuchecks (7) FEN Status: Acute Plan: Fluids: PO fluids plus NS at 100 mls/hr, watch for fluid overload Electrolytes: monitor and replace PRN Nutrition: Diabetic diet DVT ppx: Lovenox on hold for possible renal abscess drainage, apply bilateral SCD's. Aspirin also on hold for procedure. (Eric Bertrand MD R3) Problem Qualifiers (1) UTI (urinary tract infection): Qualified Codes: N30.00 - Acute cystitis without hematuria (2) Anemia: Qualified Codes: D50.9 - Iron deficiency anemia, unspecified Eric Bertrand MD R3 Dec 01, 2017 16:44 French Salter MD Dec 02, 2017 15:27
[2017-12-01] MEDS: ENALAPRILAT 1.25 MG/ML VIAL IV PUSH PRN (17:29)
[2017-12-01] MEDS: MICONAZOLE NITRATE 2% VAG CREAM 45 GM VAGINAL SCH (21:12)
[2017-12-02] VITALS (9 sets, daily range): BP systolic 162–194; BP diastolic 70–90; PULSE 69–77; RESP 16–20; TEMP 97.8–98.8; O2SAT 94–97
[2017-12-02] MEDS: SODIUM CHLOR 0.9% 1000 ML INJ 1,000 ML IV SCH ×3 (00:56→22:15)
[2017-12-02] MEDS: ACETAMINOPHEN/HYDROcodone 325 MG/5 MG TAB PO PRN ×5 (00:56→17:59)
[2017-12-02] MEDS: PIPERACIL-TAZO 3.375 GM PREMIX 50 ML IV SCH ×4 (04:45→23:17)
[2017-12-02] MEDS: PHENAZOPYRIDINE HCL 200 MG TAB PO SCH ×3 (05:17→23:18)
[2017-12-02 07:35] LABS: HEMATOCRIT 26.6 % (35.0-46.0); HEMOGLOBIN 8.8 GM/DL (11.6-15.3); MEAN CELL VOLUME 84.6 FL (80.0-100.0); MEAN CORPUSCULAR HEMOGLOBIN 27.9 PG (27.0-34.0); MEAN PLATELET VOLUME 7.3 FL (7.0-11.0); PLATELET COUNT 478 TH/MM3 (150-450); RED BLOOD COUNT 3.14 MIL/MM3 (4.00-5.30); RED CELL DISTRIBUTION WIDTH 18.1 % (11.6-17.2); WHITE BLOOD COUNT 11.3 TH/MM3 (4.0-11.0)
[2017-12-02] MEDS: INSULIN ASPART SUPPLEMENTAL SCALE SQ SCH ×4 (08:00→23:18)
[2017-12-02 08:01] LABS: BICARBONATE 24.2 MEQ/L (21.0-32.0); CALCIUM 9.3 MG/DL (8.5-10.1); CREATININE 1.87 MG/DL (0.50-1.00)
[2017-12-02] MEDS: PANTOPRAZOLE SOD 40 MG DELAYED RELEASE TAB PO SCH (08:53)
[2017-12-02] MEDS: METOPROLOL SUCCINATE 25 MG EXTENDED RELEASE TAB PO SCH (08:53)
[2017-12-02] MEDS: MULTIVITAMIN TAB PO SCH (08:54)
[2017-12-02] MEDS: DOCUSATE SODIUM 50 MG/SENNA 8.6 MG TAB PO SCH ×2 (08:54→23:18)
[2017-12-02] MEDS: LISINOPRIL 20 MG TAB PO SCH (08:54)
[2017-12-02] MEDS: FERROUS SULFATE 325 MG (65 MG ELEMENTAL IRON) TAB PO SCH ×2 (08:54→21:00)
[2017-12-02] MEDS: PRAVASTATIN SOD 10 MG TAB PO SCH (08:54)
[2017-12-02] MEDS: SODIUM CHLORIDE 0.9% FLUSH 10 ML FLUSH IV FLUSH SCH ×2 (08:55→21:00)
[2017-12-02] MEDS: GEMFIBROZIL 600 MG TAB PO SCH (08:55)
[2017-12-02] MEDS: HYDROCHLOROTHIAZIDE 25 MG TAB PO SCH (08:55)
--- NOTE | 2017-12-02 11:20 | HHI.FPPN ---
Subjective Remarks Sitting up in a chair, no distress. No bladder spasms, no dysuria, no flank pain , no urgent urination. No chest pain or shortness of breath. No abdominal pain, nausea, vomiting, diarrhea. (Eric Bertrand MD R3) Objective Vitals Vital Signs Date Time Temp Pulse Resp B/P (MAP) Pulse Ox O2 Delivery O2 Flow Rate FiO2 12/02/17 09:11 168/90 (116) 12/02/17 08:40 97.8 76 18 96 12/02/17 08:32 Room Air 12/02/17 04:00 98.6 73 17 166/82 (110) 97 12/02/17 04:00 Room Air 12/02/17 00:00 Room Air 12/02/17 00:00 98.8 72 16 162/80 (107) 97 12/01/17 22:23 97 21 12/01/17 21:30 Room Air 12/01/17 20:00 98.3 79 16 178/86 (116) 97 12/01/17 16:00 98.3 77 18 188/85 (119) 94 12/01/17 12:00 98.3 80 20 173/99 (123) 96 I/O 12/01/17 12/01/17 12/01/17 12/02/17 12/02/17 12/02/17 07:00 15:00 23:00 07:00 15:00 23:00 Intake Total 290 ml 1050 ml 770 ml 1599 ml Output Total 1400 ml 1200 ml 900 ml Balance -1110 ml 1050 ml -430 ml 699 ml Intake Oral 240 ml 720 ml 600 ml IV Total 50 ml 1050 ml 50 ml 999 ml Output Urine Total 1400 ml 1200 ml 900 ml # Bowel Movements 0 1 (Eric Bertrand MD R3) Result Diagram: 12/02/17 0547 12/02/17 0547 Objective Remarks GENERAL: Sitting up in chair, comfortable SKIN: No rashes or lesions HEENT: Normocephalic, no conjunctivitis, no nasal discharge NECK: Supple, no lymphadenopathy, no thyromegaly CARDIOVASCULAR: 2/6 systolic ejection murmur, otherwise regular rate and rhythm , normal pulses and cap refill RESPIRATORY: CTAB, no respiratory distress GASTROINTESTINAL: No tenderness to palpation today, normal bowel sounds MUSCULOSKELETAL: No calf swelling or tenderness. BACK: No CVA tenderness NEUROLOGICAL: Awake and alert. (Eric Bertrand MD R3) A/P Assessment and Plan 67 y/o female with history of hypertension, diabetes, multiple drug-resistant UTIs in the past presents with UTI that failed outpatient therapy with Keflex. Found to have persistent right renal abscess. Discharge Planning Pending antibiotic recommendations from infectious disease for MDR pseudomonas UTI, will likely go back home with walker. Has good family support at home. If she needs supervisor glycerin IV antibiotics this will need to be set up for her. Needs renal abscess drained, likely to be done on Tuesday12/05/17. Would benefit from long-term oral antibiotics for prophylactic protection against recurrent UTI's. (Eric Bertrand MD R3) Attending Attestation THIS CASE WAS DISCUSSED WITH THE RESIDENT PHYSICIAN Dr Britt Bertrand, Patient seen and examined. I HAVE REVIEWED THE RECORD AND AGREE WITH THE ABOVE NOTE AND PLAN OF CARE WAS DISCUSSED. I HAVE AUTHORIZED THE ORDER SET (French Salter MD) Problem List: (1) UTI (urinary tract infection) ICD Codes: N39.0 - Urinary tract infection, site not specified Plan: UA shows moderate leukocyte esterase, negative nitrites, 39 WBC, rare bacteria. Symptomatic with dysuria and urinary frequency, but symptoms resolving with antibiotics. Urine culture with pseudomonas, resistant to multiple oral antibiotics. [place] count of pseudomonas is <10K. Has been afebrile, mild leukocytosis, non-toxic appearing. Repeat urine culture negative to date. - Continue Zosyn for pseudomonas coverage. - Consulted infectious disease for MDR pseudomonas UTI, appreciate antibiotic recommendations. May require long-term IV antibiotics given resistance of pseudomonas to oral medications, will defer to infectious disease. - Would benefit from long-term oral antibiotics for recurrent UTI's, she's had multiple UTI's in the last few months. - Follow up repeat urine cultures, negative to date. - May benefit from cystoscopy or urodynamic studies as an outpatient, will continue to discuss. - Obtain a post-void residual volume to assess for urinary retention. - Has 7 cm possible renal abscess. Will require drainage, consulted urology and interventional radiology. Plan to get done on 12/05/17. (2) Yeast infection of the vagina ICD Codes: B37.3 - Candidiasis of vulva and vagina Status: Acute Plan: Likely vaginal candidiasis; broad-spectrum antibiotic use, burning, irritation, thick white cottage cheese discharge, no odor Vaginal candidiasis versus BV versus Trichomonas versus vaginal atrophy Patient has used miconazole/Monistat vaginal tab before Started Monistat- 7 2% cream, and nightly for 7 nights, assess for improvement If not improving, will need pelvic exam with wet mount or cultures (3) Anemia ICD Codes: D64.9 - Anemia, unspecified Status: Acute Plan: History of iron deficiency anemia. - Continue home Iron (4) DELLA (acute kidney injury) ICD Codes: N17.9 - Acute kidney failure, unspecified Status: Acute Plan: Creatinine of 1.23 on admission. Elevated during last admission. Increased acutely after receiving contrast agent. Did decrease to a low of 0.94 a few weeks ago. - Avoid nephrotoxic agents as much as possible - Continue IV fluids for DELLA, watch for fluid overload - Follow renal function (5) Hypertension Status: Chronic Plan: Elevated blood pressures - Lisinopril 30 mg daily - Amlodipine 10 mg daily - HCTZ 12.5 mg daily, increased to 25 mg daily - Added low dose metoprolol, 12.5 mg daily - Vasotec PRN (6) Diabetes mellitus ICD Codes: E11.9 - Type 2 diabetes mellitus without complications Status: Chronic Plan: Diabetes with long-term insulin use and gastroparesis per clinic notes - Hold home insulin - Low dose sliding scale while inpatient - Regular accuchecks (7) FEN Status: Acute Plan: Fluids: PO fluids plus NS at 100 mls/hr, watch for fluid overload Electrolytes: monitor and replace PRN Nutrition: Diabetic diet DVT ppx: Lovenox on hold for possible renal abscess drainage, apply bilateral SCD's. Aspirin also on hold for procedure. (Eric Bertrand MD R3) Problem Qualifiers (1) UTI (urinary tract infection): Qualified Codes: N30.00 - Acute cystitis without hematuria (2) Anemia: Qualified Codes: D50.9 - Iron deficiency anemia, unspecified Eric Bertrand MD R3 Dec 02, 2017 11:20 French Salter MD Dec 02, 2017 15:30
--- NOTE | 2017-12-02 12:59 | HHI.IDPN ---
Note Infectious Disease Note Patient feels okay. No complaints. Afebrile. Awaiting Catheter drainage of kidney abscess. PAST MEDICAL HISTORY 1. Diabetes mellitus. 2. Hypertension. 3. Hyperlipidemia. 4. Congestive heart failure. 5. Multiple urinary tract infections. 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 7. Nephrostomy in 08/2017. ALLERGIES METFORMIN. CLONIDINE. ANTIBIOTICS: Piperacillin / Tazobactam. Current Medications Medications (Trade) Dose Ordered Sig/Alisha Route PRN Reason Start Time Stop Time Status Last Admin Dose Admin Sodium Chloride (NS Flush) 2 ml UNSCH PRN IV FLUSH FLUSH AFTER USING IV ACCESS 11/26/17 11:15 11/30/17 03:56 Sodium Chloride (NS Flush) 2 ml BID IV FLUSH 11/26/17 21:00 12/01/17 21:12 Acetaminophen (Tylenol) 650 mg Q4H PRN PO TEMP > 100.4 11/26/17 11:15 Ondansetron HCl (Zofran Inj) 4 mg Q6H PRN IVP NAUSEA OR VOMITING 11/26/17 11:15 Enoxaparin Sodium (Lovenox Inj) 40 mg Q24H SQ 11/26/17 12:00 Future Hold 11/29/17 12:39 Naloxone HCl (Narcan Inj) 0.4 mg UNSCH PRN IV PUSH SEE LABEL COMMENTS 11/26/17 11:15 Senna/Docusate Sodium (Bridgette-Colace) 1 tab BID PO 11/26/17 21:00 12/02/17 08:54 Magnesium Hydroxide (Milk Of Magnesia Liq) 30 ml Q12H PRN PO Mild constipation 11/26/17 11:15 11/28/17 16:55 Sennosides (Senokot) 17.2 mg Q12H PRN PO Moderate constipation 11/26/17 11:15 Bisacodyl (Dulcolax Supp) 10 mg DAILY PRN RECTAL SEVERE CONSITIPATION 11/26/17 11:15 Lactulose (Lactulose Liq) 30 ml DAILY PRN PO SEVERE CONSITIPATION 11/26/17 11:15 Amlodipine Besylate (Norvasc) 10 mg DAILY PO 11/27/17 09:00 12/02/17 08:53 Aspirin (Ecotrin Ec) 325 mg DAILY PO 11/27/17 09:00 Future Hold 11/29/17 08:22 Ferrous Sulfate (Ferrous Sulfate) 325 mg BID PO 11/26/17 21:00 12/02/17 08:54 Gemfibrozil (Lopid) 300 mg DAILY PO 11/27/17 09:00 12/02/17 08:55 Multivitamins (Theragran) 1 tab DAILY PO 11/27/17 09:00 12/02/17 08:54 Pantoprazole Sodium (Protonix) 40 mg DAILY PO 11/27/17 09:00 12/02/17 08:53 Pravastatin Sodium (Pravachol) 10 mg DAILY PO 11/27/17 09:00 12/02/17 08:54 Patient Own Medication PT OWN MED: (Erythromycin Base 250 MG) BID PO 11/26/17 21:00 Future Hold Dextrose (D50w (Vial) Inj) 50 ml UNSCH PRN IV PUSH HYPOGLYCEMIA-SEE COMMENTS 11/26/17 11:15 Glucagon (Glucagon Inj) 1 mg UNSCH PRN OTHER HYPOGLYCEMIA-SEE COMMENTS 11/26/17 11:15 Insulin Aspart (NovoLOG SUPPLEMENTAL SCALE) 1 ACHS SLIDING SCALE SQ 11/26/17 12:00 12/01/17 21:13 Lisinopril (Prinivil) 30 mg DAILY PO 11/27/17 09:00 12/02/17 08:54 Enalaprilat (Vasotec Inj) 1.25 mg Q6H PRN IV PUSH SEE LABEL COMMENTS 11/26/17 14:00 12/01/17 17:29 Morphine Sulfate (Morphine Inj) 2 mg Q3H PRN IV PUSH BREAKTHROUGH PAIN 11/26/17 14:00 Acetaminophen/ Hydrocodone Bitart ([place] 5-325 Mg) 1 tab Q4H PRN PO PAIN SCALE 3 TO 5 11/26/17 14:15 12/02/17 09:10 Acetaminophen/ Hydrocodone Bitart ([place] 7.5-325 Mg) 1 tab Q4H PRN PO PAIN SCALE 6 TO 10 11/26/17 14:15 12/01/17 21:11 Piperacillin Sod/ Tazobactam Sod 50 ml @ 100 mls/hr Q6H IV 11/27/17 10:00 12/02/17 08:55 Miconazole Nitrate (Monistat 7 Vag Cream) 1 appl HS VAGINAL 1/1/18 21:00 12/03/17 21:01 12/01/17 21:12 Hydrochlorothiazide (Hydrodiuril) 25 mg DAILY PO 11/30/17 09:15 12/02/17 08:55 Sodium Chloride 1,000 ml @ 100 mls/hr Q10H IV 11/30/17 10:15 12/02/17 00:56 Phenazopyridine HCl (Pyridium) 200 mg Q8HR PO 11/30/17 15:00 12/02/17 05:17 Metoprolol Succinate (Toprol Xl) 12.5 mg DAILY PO 12/01/17 13:15 12/02/17 08:53 Miscellaneous (Pill Splitter) 1 ea UNSCH PRN OTHER SEE LABEL COMMENTS 12/01/17 14:00 OBJECTIVE: Vital Signs Date Time Temp Pulse Resp B/P (MAP) Pulse Ox O2 Delivery O2 Flow Rate FiO2 12/02/17 12:49 98.0 73 18 170/90 (116) 95 12/02/17 09:11 168/90 (116) 12/02/17 08:40 97.8 76 18 96 12/02/17 08:32 Room Air 12/02/17 04:00 98.6 73 17 166/82 (110) 97 12/02/17 04:00 Room Air 12/02/17 00:00 Room Air 12/02/17 00:00 98.8 72 16 162/80 (107) 97 12/01/17 22:23 97 21 12/01/17 21:30 Room Air 12/01/17 20:00 98.3 79 16 178/86 (116) 97 12/01/17 16:00 98.3 77 18 188/85 (119) 94 Laboratory Tests Test 12/01/17 08:09 12/02/17 05:47 White Blood Count 13.7 TH/MM3 11.3 TH/MM3 Red Blood Count 3.12 MIL/MM3 3.14 MIL/MM3 Hemoglobin 8.8 GM/DL 8.8 GM/DL Hematocrit 26.9 % 26.6 % Mean Corpuscular Volume 86.1 FL 84.6 FL Mean Corpuscular Hemoglobin 28.2 PG 27.9 PG Mean Corpuscular Hemoglobin Concent 32.7 % 33.0 % Red Cell Distribution Width 18.3 % 18.1 % Platelet Count 459 TH/MM3 478 TH/MM3 Mean Platelet Volume 7.4 FL 7.3 FL Laboratory Tests Test 12/01/17 08:09 12/02/17 05:47 Blood Urea Nitrogen 21 MG/DL 20 MG/DL Creatinine 1.80 MG/DL 1.87 MG/DL Random Glucose 133 MG/DL 131 MG/DL Calcium Level 9.5 MG/DL 9.3 MG/DL Sodium Level 136 MEQ/L 137 MEQ/L Potassium Level 3.7 MEQ/L 3.5 MEQ/L Chloride Level 99 MEQ/L 101 MEQ/L Carbon Dioxide Level 22.9 MEQ/L 24.2 MEQ/L Anion Gap 14 MEQ/L 12 MEQ/L Estimat Glomerular Filtration Rate 34 ML/MIN 33 ML/MIN Microbiology Date/Time Source Procedure Growth Status 11/29/17 15:15 Urine Catheterized Urine Urine Culture - Final NO GROWTH IN 48 HOURS. Complete PHYSICAL EXAMINATION GENERAL: No acute distress. Awake and alert and oriented. HEENT: Extraocular movements grossly intact, pupils reactive to light. No icterus. Oropharynx moist mucosa without lesions. NECK: Supple without adenopathy. LUNGS: Clear to auscultation. CARDIOVASCULAR: Regular rate and rhythm without murmurs, rubs or gallops. ABDOMEN: Bowel sounds present, soft, minimal tenderness on palpation of the lower mid abdomen. No flank tenderness. EXTREMITIES: No clubbing or cyanosis or edema. SKIN: No rash. NEUROLOGIC: No gross focal findings. PSYCHIATRIC: Calm and cooperative. IMPRESSION Recurrent urinary tract infection due to Pseudomonas. resistant to levaquin. R kidney abscess. RECOMMENDATION: Awaiting drainage of kidney abscess. Continue Zosyn IV. Should obtain a culture of the abscess fluid when catheter drainage is done. I will follow the culture. Nikita Griffin MD Dec 02, 2017 12:59
[2017-12-02] MEDS: MICONAZOLE NITRATE 2% VAG CREAM 45 GM VAGINAL SCH (21:00)
[2017-12-02] MEDS: ENALAPRILAT 1.25 MG/ML VIAL IV PUSH PRN (23:18)
[2017-12-02] MEDS: ACETAMINOPHEN/HYDROcodone 325 MG/7.5 MG TAB PO PRN (23:19)
[2017-12-03 00:05] VITALS: BP 194/85; PULSE 71; RESP 20; TEMP 98.3; O2SAT 98
[2017-12-03 04:00] VITALS: BP 176/93; PULSE 81; RESP 18; TEMP 98; O2SAT 97
[2017-12-03] MEDS: PIPERACIL-TAZO 3.375 GM PREMIX 50 ML IV SCH ×4 (04:42→22:08)
[2017-12-03] MEDS: PHENAZOPYRIDINE HCL 200 MG TAB PO SCH ×3 (04:42→22:08)
[2017-12-03] MEDS: SODIUM CHLOR 0.9% 1000 ML INJ 1,000 ML IV SCH ×2 (04:42→18:44)
[2017-12-03] MEDS: ACETAMINOPHEN/HYDROcodone 325 MG/7.5 MG TAB PO PRN ×4 (04:42→22:09)
[2017-12-03 08:00] VITALS: BP 197/88; PULSE 83; RESP 20; TEMP 98.5; O2SAT 95
[2017-12-03] MEDS: INSULIN ASPART SUPPLEMENTAL SCALE SQ SCH ×4 (08:00→22:16)
[2017-12-03] MEDS: MULTIVITAMIN TAB PO SCH (09:10)
[2017-12-03] MEDS: PANTOPRAZOLE SOD 40 MG DELAYED RELEASE TAB PO SCH (09:10)
[2017-12-03] MEDS: LISINOPRIL 20 MG TAB PO SCH (09:10)
[2017-12-03] MEDS: PRAVASTATIN SOD 10 MG TAB PO SCH (09:10)
[2017-12-03] MEDS: FERROUS SULFATE 325 MG (65 MG ELEMENTAL IRON) TAB PO SCH ×2 (09:10→22:08)
[2017-12-03] MEDS: HYDROCHLOROTHIAZIDE 25 MG TAB PO SCH (09:11)
[2017-12-03] MEDS: METOPROLOL SUCCINATE 25 MG EXTENDED RELEASE TAB PO SCH (09:11)
[2017-12-03] MEDS: GEMFIBROZIL 600 MG TAB PO SCH (09:11)
[2017-12-03] MEDS: SODIUM CHLORIDE 0.9% FLUSH 10 ML FLUSH IV FLUSH SCH ×2 (09:11→21:00)
[2017-12-03] MEDS: DOCUSATE SODIUM 50 MG/SENNA 8.6 MG TAB PO SCH ×2 (09:11→22:08)
[2017-12-03 09:23] LABS: HEMATOCRIT 29.5 % (35.0-46.0); HEMOGLOBIN 9.9 GM/DL (11.6-15.3); MEAN CELL VOLUME 85.8 FL (80.0-100.0); MEAN CORPUSCULAR HEMOGLOBIN 28.8 PG (27.0-34.0); MEAN CORPUSCULAR HGB CONC 33.6 % (32.0-36.0); MEAN PLATELET VOLUME 7.2 FL (7.0-11.0); PLATELET COUNT 597 TH/MM3 (150-450); RED BLOOD COUNT 3.44 MIL/MM3 (4.00-5.30); RED CELL DISTRIBUTION WIDTH 17.9 % (11.6-17.2); WHITE BLOOD COUNT 13.5 TH/MM3 (4.0-11.0)
[2017-12-03 09:46] LABS: BICARBONATE 21.4 MEQ/L (21.0-32.0); CALCIUM 9.7 MG/DL (8.5-10.1); CREATININE 1.64 MG/DL (0.50-1.00)
--- NOTE | 2017-12-03 11:13 | HHI.FPPN ---
Subjective Remarks No acute events overnight. Sitting up on the side of bed, no distress. Has good appetite. No bladder spasms, no dysuria, no urgent urination. No flank pain. No chest pain, shortness of breath, abdominal pain. No nausea or vomiting. No calf tenderness or swelling. Objective Vitals Vital Signs Date Time Temp Pulse Resp B/P (MAP) Pulse Ox O2 Delivery O2 Flow Rate FiO2 12/03/17 08:00 98.5 83 20 197/88 (124) 95 12/03/17 04:00 98.0 81 18 176/93 (120) 97 12/03/17 00:05 98.3 71 20 194/85 (121) 98 12/02/17 23:18 194/85 (121) 12/02/17 20:00 98.0 69 18 165/70 (101) 95 12/02/17 20:00 96 Room Air 12/02/17 16:10 98.4 77 20 163/71 (101) 94 12/02/17 15:38 95 12/02/17 12:49 98.0 73 18 170/90 (116) 95 I/O 12/02/17 12/02/17 12/02/17 12/03/17 12/03/17 12/03/17 07:00 15:00 23:00 07:00 15:00 23:00 Intake Total 1599 ml 1485 ml 1300 ml Output Total 900 ml 1000 ml 1550 ml Balance 699 ml 485 ml -250 ml Intake Oral 600 ml 360 ml IV Total 999 ml 1125 ml 1300 ml Output Urine Total 900 ml 1000 ml 1550 ml # Bowel Movements 1 Result Diagram: 12/03/17 0852 12/03/17 0852 Objective Remarks GENERAL: Sitting up on side of bed, no distress SKIN: No rashes or lesions HEENT: Normocephalic, no conjunctivitis, no nasal discharge NECK: Supple, no lymphadenopathy, no thyromegaly CARDIOVASCULAR: 12/03 systolic ejection murmur, otherwise regular rate and rhythm , normal pulses and cap refill RESPIRATORY: CTAB, no respiratory distress GASTROINTESTINAL: No tenderness to palpation, normal bowel sounds MUSCULOSKELETAL: No calf swelling or tenderness. BACK: No CVA tenderness NEUROLOGICAL: Awake and alert. A/P Assessment and Plan 67 y/o female with history of hypertension, diabetes, multiple drug-resistant UTIs in the past presents with UTI that failed outpatient therapy with Keflex. Found to have persistent right renal abscess. Discharge Planning Pending antibiotic recommendations from infectious disease for MDR pseudomonas UTI, will likely go back home with walker. Has good family support at home. 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 Needs renal abscess drained, likely to be done on Tuesday12/05/17. Would benefit from long-term oral antibiotics for prophylactic protection against recurrent UTI's. Problem List: (1) UTI (urinary tract infection) ICD Codes: N39.0 - Urinary tract infection, site not specified Plan: UA shows moderate leukocyte esterase, negative nitrites, 39 WBC, rare bacteria. Symptomatic with dysuria and urinary frequency, but symptoms resolving with antibiotics. Urine culture with pseudomonas, resistant to multiple oral antibiotics. [place] count of pseudomonas is <10K. Has been afebrile, mild leukocytosis, non-toxic appearing. Repeat urine culture negative to date. - Continue Zosyn for pseudomonas coverage. - Consulted infectious disease for MDR pseudomonas UTI, appreciate antibiotic recommendations. May require long-term IV antibiotics given resistance of pseudomonas to oral medications, will defer to infectious disease. - Would benefit from long-term oral antibiotics for recurrent UTI's, she's had multiple UTI's in the last few months. - Follow up repeat urine cultures, negative to date. - May benefit from cystoscopy or urodynamic studies as an outpatient, will continue to discuss. - Obtain a post-void residual volume to assess for urinary retention. - Has 7 cm possible renal abscess. Will require drainage, consulted urology and interventional radiology. Plan to get done on 12/05/17. (2) Yeast infection of the vagina ICD Codes: B37.3 - Candidiasis of vulva and vagina Status: Acute Plan: Likely vaginal candidiasis; broad-spectrum antibiotic use, burning, irritation, thick white cottage cheese discharge, no odor Vaginal candidiasis versus BV versus Trichomonas versus vaginal atrophy Patient has used miconazole/Monistat vaginal tab before Started Monistat- 7 2% cream, and nightly for 7 nights, assess for improvement If not improving, will need pelvic exam with wet mount or cultures (3) Anemia ICD Codes: D64.9 - Anemia, unspecified Status: Acute Plan: History of iron deficiency anemia. - Continue home Iron (4) DELLA (acute kidney injury) ICD Codes: N17.9 - Acute kidney failure, unspecified Status: Acute Plan: Creatinine of 1.23 on admission. Elevated during last admission. Increased acutely after receiving contrast agent. Did decrease to a low of 0.94 a few weeks ago. - Avoid nephrotoxic agents as much as possible - Continue IV fluids for DELLA, watch for fluid overload - Follow renal function (5) Hypertension Status: Chronic Plan: Elevated blood pressures - Lisinopril 30 mg daily - Amlodipine 10 mg daily - HCTZ 12.5 mg daily, increased to 25 mg daily - Added low dose metoprolol, 12.5 mg daily - Vasotec PRN (6) Diabetes mellitus ICD Codes: E11.9 - Type 2 diabetes mellitus without complications Status: Chronic Plan: Diabetes with long-term insulin use and gastroparesis per clinic notes - Hold home insulin - Low dose sliding scale while inpatient - Regular accuchecks (7) FEN Status: Acute Plan: Fluids: PO fluids plus NS at 100 mls/hr, watch for fluid overload Electrolytes: monitor and replace PRN Nutrition: Diabetic diet DVT ppx: Lovenox on hold for possible renal abscess drainage, apply bilateral SCD's. Aspirin also on hold for procedure. Problem Qualifiers (1) UTI (urinary tract infection): Qualified Codes: N30.00 - Acute cystitis without hematuria (2) Anemia: Qualified Codes: D50.9 - Iron deficiency anemia, unspecified Eric Bertrand MD R3 Dec 03, 2017 11:13
[2017-12-03 12:00] VITALS: BP 184/82; PULSE 75; RESP 18; TEMP 98.3; O2SAT 95
[2017-12-03] MEDS: ENALAPRILAT 1.25 MG/ML VIAL IV PUSH PRN (13:33)
[2017-12-03 16:00] VITALS: BP 196/86; PULSE 89; RESP 20; TEMP 97.5; O2SAT 94
[2017-12-03 20:00] VITALS: BP 160/84; PULSE 77; RESP 19; TEMP 98.4; O2SAT 93
[2017-12-03] MEDS: MICONAZOLE NITRATE 2% VAG CREAM 45 GM VAGINAL SCH (21:00)
[2017-12-04] VITALS (7 sets, daily range): BP systolic 132–178; BP diastolic 62–81; PULSE 69–84; RESP 18–20; TEMP 97.4–98.4; O2SAT 94–96
[2017-12-04] MEDS: ACETAMINOPHEN/HYDROcodone 325 MG/7.5 MG TAB PO PRN ×5 (02:38→21:17)
[2017-12-04] MEDS: PIPERACIL-TAZO 3.375 GM PREMIX 50 ML IV SCH ×4 (04:35→21:17)
[2017-12-04] MEDS: ENALAPRILAT 1.25 MG/ML VIAL IV PUSH PRN (06:33)
[2017-12-04] MEDS: SODIUM CHLOR 0.9% 1000 ML INJ 1,000 ML IV SCH ×2 (06:34→15:10)
[2017-12-04] MEDS: PHENAZOPYRIDINE HCL 200 MG TAB PO SCH ×3 (06:34→21:16)
[2017-12-04] MEDS: SODIUM CHLORIDE 0.9% FLUSH 10 ML FLUSH IV FLUSH SCH ×2 (09:00→21:00)
[2017-12-04] MEDS: GEMFIBROZIL 600 MG TAB PO SCH (09:12)
[2017-12-04] MEDS: PRAVASTATIN SOD 10 MG TAB PO SCH (09:13)
[2017-12-04] MEDS: FERROUS SULFATE 325 MG (65 MG ELEMENTAL IRON) TAB PO SCH ×2 (09:13→21:16)
[2017-12-04] MEDS: DOCUSATE SODIUM 50 MG/SENNA 8.6 MG TAB PO SCH ×2 (09:13→21:16)
[2017-12-04] MEDS: METOPROLOL SUCCINATE 25 MG EXTENDED RELEASE TAB PO SCH (09:13)
[2017-12-04] MEDS: HYDROCHLOROTHIAZIDE 25 MG TAB PO SCH (09:14)
[2017-12-04] MEDS: MULTIVITAMIN TAB PO SCH (09:14)
[2017-12-04] MEDS: PANTOPRAZOLE SOD 40 MG DELAYED RELEASE TAB PO SCH (09:14)
[2017-12-04] MEDS: LISINOPRIL 20 MG TAB PO SCH (09:14)
[2017-12-04] MEDS: INSULIN ASPART SUPPLEMENTAL SCALE SQ SCH ×4 (09:23→21:18)
[2017-12-04 09:37] LABS: HEMATOCRIT 26.2 % (35.0-46.0); HEMOGLOBIN 8.8 GM/DL (11.6-15.3); MEAN CELL VOLUME 84.7 FL (80.0-100.0); MEAN CORPUSCULAR HEMOGLOBIN 28.4 PG (27.0-34.0); MEAN CORPUSCULAR HGB CONC 33.5 % (32.0-36.0); MEAN PLATELET VOLUME 7.1 FL (7.0-11.0); PLATELET COUNT 544 TH/MM3 (150-450); RED CELL DISTRIBUTION WIDTH 17.9 % (11.6-17.2); WHITE BLOOD COUNT 11.9 TH/MM3 (4.0-11.0)
[2017-12-04 10:09] LABS: BICARBONATE 23.8 MEQ/L (21.0-32.0); CALCIUM 9.3 MG/DL (8.5-10.1); CREATININE 1.38 MG/DL (0.50-1.00)
--- NOTE | 2017-12-04 10:19 | HHI.FPPN ---
Subjective Remarks Resting in bed, no distress. No chest pain or shortness of breath. No abdominal pain, nausea, vomiting, diarrhea. Had some bladder spasms yesterday but not as bad as before. No dysuria or flank pain. Eager to have renal abscess drained. Objective Vitals Vital Signs Date Time Temp Pulse Resp B/P (MAP) Pulse Ox O2 Delivery O2 Flow Rate FiO2 12/04/17 04:10 18 12/04/17 04:00 98.3 76 18 172/80 (110) 96 12/04/17 00:00 98.4 69 18 148/62 (90) 96 12/03/17 22:10 Room Air 12/03/17 20:00 98.4 77 19 160/84 (109) 93 12/03/17 16:00 97.5 89 20 196/86 (122) 94 12/03/17 12:00 98.3 75 18 184/82 (116) 95 I/O 12/03/17 12/03/17 12/03/17 12/04/17 12/04/17 12/04/17 07:00 15:00 23:00 07:00 15:00 23:00 Intake Total 1300 ml 1050 ml 1290 ml Output Total 1550 ml 925 ml 1200 ml Balance -250 ml 125 ml 90 ml Intake Oral 1000 ml 240 ml IV Total 1300 ml 50 ml 1050 ml Output Urine Total 1550 ml 925 ml 1200 ml # Voids 2 # Bowel Movements 1 2 Result Diagram: 12/04/17 0900 12/04/17 0900 Objective Remarks GENERAL: Resting in bed, no distress SKIN: No rashes or lesions HEENT: Normocephalic, no conjunctivitis, no nasal discharge NECK: Supple, no lymphadenopathy, no thyromegaly CARDIOVASCULAR: 12/03 systolic ejection murmur, otherwise regular rate and rhythm , normal pulses and cap refill RESPIRATORY: CTAB, no respiratory distress GASTROINTESTINAL: No tenderness to palpation, normal bowel sounds MUSCULOSKELETAL: No calf swelling or tenderness. BACK: No CVA tenderness NEUROLOGICAL: Awake and alert. Procedures Pending renal abscess drainage A/P Assessment and Plan 67 y/o female with history of hypertension, diabetes, multiple drug-resistant UTIs in the past presents with UTI that failed outpatient therapy with Keflex. Found to have persistent right renal abscess, pseudomonas UTI. Discharge Planning Pending antibiotic recommendations from infectious disease for MDR pseudomonas UTI, will likely go back home with walker. Has good family support at home. 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 Needs renal abscess drained, likely to be done on Tuesday12/05/17. Would benefit from long-term oral antibiotics for prophylactic protection against recurrent UTI's. Problem List: (1) UTI (urinary tract infection) ICD Codes: N39.0 - Urinary tract infection, site not specified Plan: UA shows moderate leukocyte esterase, negative nitrites, 39 WBC, rare bacteria. Symptomatic with dysuria and urinary frequency, but symptoms resolving with antibiotics. Urine culture with pseudomonas, resistant to multiple oral antibiotics. [place] count of pseudomonas is <10K. Has been afebrile, mild leukocytosis, non-toxic appearing. Repeat urine culture negative. - Continue Zosyn for pseudomonas coverage. - Consulted infectious disease for MDR pseudomonas UTI, appreciate antibiotic recommendations. May require long-term IV antibiotics given resistance of pseudomonas to oral medications, will defer to infectious disease. - Would benefit from long-term oral antibiotics for recurrent UTI's, she's had multiple UTI's in the last few months. - May benefit from cystoscopy or urodynamic studies as an outpatient, will continue to discuss. - Has 7 cm possible renal abscess. Will require drainage, consulted urology and interventional radiology. Plan to get done on 12/05/17. (2) Yeast infection of the vagina ICD Codes: B37.3 - Candidiasis of vulva and vagina Status: Resolved Plan: Likely vaginal candidiasis; broad-spectrum antibiotic use, burning, irritation, thick white cottage cheese discharge, no odor Vaginal candidiasis versus BV versus Trichomonas versus vaginal atrophy Patient has used miconazole/Monistat vaginal tab before Started Monistat- 7 2% cream, and nightly for 7 nights (3) Anemia ICD Codes: D64.9 - Anemia, unspecified Status: Acute Plan: History of iron deficiency anemia. - Continue home Iron (4) DELLA (acute kidney injury) ICD Codes: N17.9 - Acute kidney failure, unspecified Status: Acute Plan: Creatinine of 1.23 on admission. Elevated during last admission. Increased acutely after receiving contrast agent. Trending back down. Did decrease to a low of 0.94 a few weeks ago. - Avoid nephrotoxic agents as much as possible - Continue IV fluids for DELLA, watch for fluid overload - Follow renal function (5) Hypertension Status: Chronic Plan: Elevated blood pressures - Lisinopril 30 mg daily - Amlodipine 10 mg daily - HCTZ 12.5 mg daily, increased to 25 mg daily - Added low dose metoprolol, 12.5 mg daily - Vasotec PRN (6) Diabetes mellitus ICD Codes: E11.9 - Type 2 diabetes mellitus without complications Status: Chronic Plan: Diabetes with long-term insulin use and gastroparesis per clinic notes - Hold home insulin - Low dose sliding scale while inpatient - Regular accuchecks (7) FEN Status: Acute Plan: Fluids: PO fluids plus NS at 100 mls/hr, watch for fluid overload Electrolytes: monitor and replace PRN Nutrition: Diabetic diet, NPO after midnight in case of renal abscess drainage tomorrow. DVT ppx: Lovenox on hold for possible renal abscess drainage, apply bilateral SCD's. Aspirin also on hold for procedure. Problem Qualifiers (1) UTI (urinary tract infection): Qualified Codes: N30.00 - Acute cystitis without hematuria (2) Anemia: Qualified Codes: D50.9 - Iron deficiency anemia, unspecified Eric Bertrand MD R3 Dec 04, 2017 10:19
--- NOTE | 2017-12-04 10:46 | HHI.FPPN ---
Addendum to progress note ADDENDUM Reason for addendum: Additonal documentation Additional information OFF SERVICE NOTE 67 year old female presented on 11/26 with a UTI that failed outpatient treatment with Keflex. Urine culture showed pseudomonas with less than 10K colonies. Repeat urine culture was negative. She was having symptoms of cystitis on admission which have mostly resolved, other than occasional bladder spasms. She has no flank tenderness and no fevers. She appears well clinically. She was recently admitted with emphysematous pyelonephritis and right renal abscess which was drained. Unfortunately, she has a 7 cm renal abscess that has reformed since that drainage and it requires drainage as it is over the threshold for drainage. She will likely get the abscess drained on 12/05/17. Urology and IR are on board. Her aspirin and anticoagulation are on hold, which will need to be resumed after the procedure. Because she has such frequent UTI' s recently, likely secondary to her type II diabetes, she would benefit from a long-term oral antibiotic. In addition, she may require long-term IV antibiotics for pseudomonas UTI, which will be left to the discretion of infectious disease, who is on board. If she does need long-term IV antibiotics, this will need to be set up for her. The pseudomonas isolated in her urine is resistant to typical oral antibiotics. She developed DELLA after receiving contrast agent, but her renal function is trending back down with IV fluids. She needs to be watched carefully for fluid overload while on IV fluids. Her diabetes has been well controlled in the hospital. Her room is on the same floor as her daughter who works in the TIC room. Her daughter likes to be updated regularly about the patient's status. Her name is Mariana. Eric Bertrand MD R3 Dec 04, 2017 10:46
[2017-12-04] MEDS ORDERED: MICONAZOLE NITRATE 2% VAG CREAM 45 GM VAGINAL ONE (15:00)
[2017-12-05] VITALS (12 sets, daily range): BP systolic 142–195; BP diastolic 74–88; PULSE 70–112; RESP 18–22; TEMP 97.9–99.1; O2SAT 91–98
[2017-12-05] MEDS: SODIUM CHLOR 0.9% 1000 ML INJ 1,000 ML IV SCH ×3 (01:40→20:15)
[2017-12-05] MEDS: ACETAMINOPHEN/HYDROcodone 325 MG/7.5 MG TAB PO PRN ×5 (01:41→20:55)
[2017-12-05] MEDS: ENALAPRILAT 1.25 MG/ML VIAL IV PUSH PRN ×2 (04:29→16:53)
[2017-12-05] MEDS: PIPERACIL-TAZO 3.375 GM PREMIX 50 ML IV SCH ×4 (04:29→21:01)
[2017-12-05] MEDS: PHENAZOPYRIDINE HCL 200 MG TAB PO SCH ×3 (05:50→21:00)
[2017-12-05 07:15] LABS: HEMATOCRIT 25.3 % (35.0-46.0); HEMOGLOBIN 8.6 GM/DL (11.6-15.3); MEAN CELL VOLUME 85.6 FL (80.0-100.0); MEAN CORPUSCULAR HGB CONC 33.9 % (32.0-36.0); MEAN PLATELET VOLUME 7.1 FL (7.0-11.0); PLATELET COUNT 578 TH/MM3 (150-450); RED BLOOD COUNT 2.96 MIL/MM3 (4.00-5.30); RED CELL DISTRIBUTION WIDTH 18.2 % (11.6-17.2); WHITE BLOOD COUNT 10.6 TH/MM3 (4.0-11.0)
[2017-12-05 07:34] LABS: BICARBONATE 24.4 MEQ/L (21.0-32.0); CALCIUM 8.9 MG/DL (8.5-10.1); CREATININE 1.28 MG/DL (0.50-1.00)
[2017-12-05] MEDS: INSULIN ASPART SUPPLEMENTAL SCALE SQ SCH ×4 (08:00→22:31)
[2017-12-05] MEDS: DOCUSATE SODIUM 50 MG/SENNA 8.6 MG TAB PO SCH ×2 (09:00→20:56)
[2017-12-05] MEDS: FERROUS SULFATE 325 MG (65 MG ELEMENTAL IRON) TAB PO SCH ×2 (09:00→20:55)
[2017-12-05] MEDS: LISINOPRIL 20 MG TAB PO SCH (10:17)
[2017-12-05] MEDS: METOPROLOL SUCCINATE 25 MG EXTENDED RELEASE TAB PO SCH (10:17)
[2017-12-05] MEDS: SODIUM CHLORIDE 0.9% FLUSH 10 ML FLUSH IV FLUSH SCH ×2 (10:54→20:56)
--- NOTE | 2017-12-05 11:55 | HHI.FPPN ---
Subjective Remarks No acute events overnight. Vital signs unremarkable except for intermittently elevated BP to a high of 180/80s. Patient states that she feels well and has no complaints. Denies chest pain, SOB. Intermittent abdominal pain has been controlled with current medications. (Fani Sosa MD, R3) Objective Vitals Vital Signs Date Time Temp Pulse Resp B/P (MAP) Pulse Ox O2 Delivery O2 Flow Rate FiO2 12/05/17 09:56 95 12/05/17 09:30 98.1 70 20 190/78 (115) 95 12/05/17 06:30 17 12/05/17 04:00 98.0 77 20 182/81 (114) 95 12/05/17 02:00 164/88 (113) 12/05/17 00:00 98.4 70 20 180/77 (111) 94 12/04/17 21:15 Room Air 12/04/17 20:00 97.8 77 20 132/63 (86) 94 12/04/17 19:08 Room Air 12/04/17 16:00 97.4 84 20 170/72 (104) 95 12/04/17 15:59 160/72 (101) 12/04/17 12:00 97.6 74 20 176/81 (112) 95 I/O 12/04/17 12/04/17 12/04/17 12/05/17 12/05/17 12/05/17 07:00 15:00 23:00 07:00 15:00 23:00 Intake Total 1290 ml 2190 ml 1650 ml Output Total 1200 ml 1600 ml Balance 90 ml 590 ml 1650 ml Intake Oral 240 ml 2140 ml 600 ml IV Total 1050 ml 50 ml 1050 ml Output Urine Total 1200 ml 1600 ml # Voids 2 # Bowel Movements 2 1 1 (Fani Sosa MD, R3) Result Diagram: 12/05/1737 12/05/1737 Objective Remarks GEN: Well-developed, well-nourished patient. No acute distress. CV: Regular rate and rhythm without obvious murmurs LUNGS: Clear to auscultation bilaterally. Normal respiratory effort. No wheezes , rales, rhonchi. GI: Soft non distended EXT: No edema. No calf tenderness. NEURO/PSYCH: Awake, alert. Appropriate insight and judgment. Normal speech (Fani Sosa MD, R3) A/P Assessment and Plan 67 y/o female with history of hypertension, diabetes, multiple drug-resistant UTIs in the past presents with UTI that failed outpatient therapy with Keflex. Found to have persistent right renal abscess, pseudomonas UTI. Discharge Planning Few days pending culture results of renal abscess * Will likely go back home with walker. Has good family support at home. * If she needs [facility] IV antibiotics this will need to be set up for her by ID sdw Dr. Salter (Fani Sosa MD, R3) Attending Attestation THIS CASE WAS DISCUSSED WITH THE RESIDENT PHYSICIAN DR Britt SHEPHERD.PATIENT SEEN AND EXAMINED, I HAVE REVIEWED THE RECORD AND AGREE WITH THE ABOVE NOTE AND PLAN OF CARE WAS DISCUSSED. I HAVE AUTHORIZED THE ORDER SET (French Salter MD) Problem List: (1) Renal abscess, right ICD Codes: N15.1 - Renal and perinephric abscess Plan: Prior hx of right emphysematous pyelonephritis and abscess. CT abdomen shows increase in size of gas and fluid collection on the right with appearance of an abscess. -Renal US: no appreciable change in fluid gas collection within the right kidney , probably an abscess -Planned abscess drainage by IR today, 12/05/17 ID consulted: appreciate recommendations * continue Zosyn * awaiting drainage of abscess Medications: * Zosyn (11/27- (2) UTI (urinary tract infection) ICD Codes: N39.0 - Urinary tract infection, site not specified Status: Resolved Plan: 11/26/17 Urine culture with pseudomonas. Resistant to quinolones. Repeat urine culture negative from 11/29/17 -Hx of recurrent UTIs, may benefit from PPX abx (3) Anemia ICD Codes: D64.9 - Anemia, unspecified Status: Acute Plan: History of iron deficiency anemia. - Continue home Iron (4) DELLA (acute kidney injury) ICD Codes: N17.9 - Acute kidney failure, unspecified Status: Acute Plan: Creatinine of 1.23 on admission. Elevated during last admission. Increased acutely after receiving contrast agent. Trending back down. Did decrease to a low of 0.94 a few weeks ago. - Avoid nephrotoxic agents as much as possible - DC fluids tonight after NPO status as pt has good PO intake to continue renal improvement. - Follow renal function (5) Hypertension Status: Chronic Plan: Elevated blood pressures - Increased to Lisinopril 40 mg daily - Amlodipine 10 mg daily - HCTZ 25mg daily - Increase to metoprolol 25mg daily - Vasotec PRN (6) Diabetes mellitus ICD Codes: E11.9 - Type 2 diabetes mellitus without complications Status: Chronic Plan: Diabetes with long-term insulin use and gastroparesis per clinic notes - Hold home insulin - Low dose sliding scale while inpatient - Regular accuchecks (7) FEN Status: Acute Plan: Fluids: PO fluids plus NS at 100 mls/hr, stop at midnight 12/06/17 Electrolytes: monitor and replace PRN Nutrition: Diabetic diet, NPO until after renal abscess drainage on 12/05/17 DVT ppx: Lovenox on hold for renal abscess drainage, apply bilateral SCD's. Aspirin also on hold for procedure. (Fani Sosa MD, R3) Problem Qualifiers (1) UTI (urinary tract infection): Qualified Codes: N30.00 - Acute cystitis without hematuria (2) Anemia: Qualified Codes: D50.9 - Iron deficiency anemia, unspecified Fani Sosa MD, R3 Dec 05, 2017 11:55 French Salter MD Dec 06, 2017 09:53
[2017-12-05] MEDS ORDERED: LIDOCAINE HCL 1% 20 ML VIAL ONE (13:42)
[2017-12-05] MEDS ORDERED: MIDAZOLAM HCL 2 MG/2 ML VIAL ONE (13:53)
--- NOTE | 2017-12-05 15:02 | PD.RAD ---
Post CT Procedure Prog Note Pre Procedure Diagnosis: (1) Renal abscess, right Post Procedure Diagnosis: (1) Renal abscess, right Procedure Date: Dec 05, 2017 Supervising Radiologist: Aman Loza Anesthesia: Local, Conscious Sedation Plan of Activity Patient to Unit: Nursing Unit Patient Condition: Good See PACS Report for procedural detail/treatment Drainage Procedure Procedure 1 Imaging Guidance: CT Side: Right Procedure Type: Abscess Drainage Procedure: Placement Liberian: 14 Drainage: Suction Fluid Removal (CCs): 100 Fluid Description: Purulent Findings: Right renal abscess Aman Loza MD Dec 05, 2017 15:02
--- NOTE | 2017-12-05 15:42 | RADRPT ---
EXAM DATE/TIME: 12/05/2017 14:08 [facility] COMPARISON: CT ABSCESS DRAINAGE BRUNO/RETRO, September 27, 2017, 15:35. INDICATIONS : Right renal abscess. SEDATION TIME: MEDICATION(S): 1.) 3 mg midazolam (Versed) IV 2.) 150 mcg fentanyl (Sublimaze) IV DEVICE(S): 1.) 14 Fr Locking pigtail FLUID: Total volume of 100 cc of cloudy, yellow fluid was removed. Fluid was sent for laboratory ordered studies. MEDICAL HISTORY : Cardiovascular disease. Hypertension. SURGICAL HISTORY : section. Right nephrostomy. ENCOUNTER: Initial ACUITY: 1 day PAIN SCORE: 0/10 LOCATION: Right PROCEDURE: 1.) Conscious sedation with continuous EKG and oximetry monitoring. 2.) EKG and oximetry remained stable throughout the procedure. PROCEDURE : 1. CT guided drainage of the right kidney 2. Conscious sedation with continuous EKG and oximetry monitoring. The risks, benefits and alternatives to the procedure were explained and verbal and written consent w as obtained. Using automated exposure control and adjustment of the mA and/or kV according to patient size, radiation dose was kept as low as reasonably achievable to obtain optimal diagnostic quality i mages. The site was prepped in sterile fashion. Full sterile technique was used, including cap, ma sk, sterile gloves and gown and a large sterile sheet. Hand hygiene and 2% chlorhexidine and/or beta dine/alcohol prep was utilized per protocol for cutaneous antisepsis. The skin and subcutaneous tiss ues were infiltrated with local anesthetic solution. DICOM format image data is available electronic ally for review and comparison. Using CT guidance the prescribed site was localized. Drainage was performed using the prescribed cat heter The patient tolerated the procedure well and there were no complications. Conscious sedation was per formed with the prescribed dosages and duration as above in the presence of an independent trained ra diology nurse to assist in the monitoring of the patient. EKG and oximetry remained stable throughou t the procedure. The patient tolerated the procedure well and there were no complications. The patient was sent to pos t anesthesia recovery in stable condition. CONCLUSION: Uncomplicated CT guided drainage of a right renal abscess. Aman Loza MD on December 05, 2017 at 15:38 Board Certified Radiologist. This report was verified electronically.
[2017-12-05] MEDS: GEMFIBROZIL 600 MG TAB PO SCH (16:35)
[2017-12-05] MEDS: PANTOPRAZOLE SOD 40 MG DELAYED RELEASE TAB PO SCH (16:35)
[2017-12-05] MEDS: PRAVASTATIN SOD 10 MG TAB PO SCH (16:35)
[2017-12-05] MEDS: HYDROCHLOROTHIAZIDE 25 MG TAB PO SCH (16:36)
[2017-12-05] MEDS: MULTIVITAMIN TAB PO SCH (16:36)
[2017-12-05] MEDS ORDERED: METOPROLOL TARTRATE 25 MG TAB PO ONE (18:00)
[2017-12-06] VITALS (7 sets, daily range): BP systolic 105–195; BP diastolic 51–84; PULSE 70–76; RESP 18–20; TEMP 97.4–98.9; O2SAT 90–96
[2017-12-06] MEDS: ACETAMINOPHEN/HYDROcodone 325 MG/7.5 MG TAB PO PRN ×5 (01:16→22:01)
[2017-12-06] MEDS: PIPERACIL-TAZO 3.375 GM PREMIX 50 ML IV SCH ×4 (06:26→22:01)
[2017-12-06] MEDS: PHENAZOPYRIDINE HCL 200 MG TAB PO SCH ×3 (06:26→22:01)
[2017-12-06] MEDS: INSULIN ASPART SUPPLEMENTAL SCALE SQ SCH ×4 (08:00→20:17)
[2017-12-06] MEDS: PRAVASTATIN SOD 10 MG TAB PO SCH (08:52)
[2017-12-06] MEDS: PANTOPRAZOLE SOD 40 MG DELAYED RELEASE TAB PO SCH (08:52)
[2017-12-06] MEDS: FERROUS SULFATE 325 MG (65 MG ELEMENTAL IRON) TAB PO SCH ×2 (08:52→20:18)
[2017-12-06] MEDS: DOCUSATE SODIUM 50 MG/SENNA 8.6 MG TAB PO SCH ×2 (08:52→20:17)
[2017-12-06] MEDS: LISINOPRIL 20 MG TAB PO SCH (08:53)
[2017-12-06] MEDS: MULTIVITAMIN TAB PO SCH (08:53)
[2017-12-06] MEDS: SODIUM CHLORIDE 0.9% 10 ML VIAL IRRIGATION SCH (08:53)
[2017-12-06] MEDS: HYDROCHLOROTHIAZIDE 25 MG TAB PO SCH (08:53)
[2017-12-06] MEDS: METOPROLOL SUCCINATE 25 MG EXTENDED RELEASE TAB PO SCH (08:53)
[2017-12-06] MEDS: GEMFIBROZIL 600 MG TAB PO SCH (08:53)
[2017-12-06] MEDS: SODIUM CHLORIDE 0.9% FLUSH 10 ML FLUSH IV FLUSH SCH ×2 (08:53→20:19)
[2017-12-06 09:02] LABS: BICARBONATE 24.7 MEQ/L (21.0-32.0); CALCIUM 8.7 MG/DL (8.5-10.1); CREATININE 1.22 MG/DL (0.50-1.00)
[2017-12-06] MEDS ORDERED: POTASSIUM CHLORIDE 20 MEQ CONTROLLED RELEASE TAB PO ONE (10:00)
--- NOTE | 2017-12-06 10:23 | HHI.FPPN ---
Subjective Remarks No acute events overnight. Vital signs significant for hypertension with systolic BP around 160-180s. Patient reports that she feels well but does have pain at the site of incision. Pain is well-controlled with current medications. Patient does feel a bit weak and lightheaded as she has not eaten. Patient otherwise has no acute concerns. (Fani Sosa MD, R3) Objective Vitals Vital Signs Date Time Temp Pulse Resp B/P (MAP) Pulse Ox O2 Delivery O2 Flow Rate FiO2 12/06/17 08:35 97.4 76 20 117/57 (77) 93 12/06/17 07:26 18 12/06/17 04:00 98.2 75 18 187/84 (118) 90 12/06/17 00:00 98.6 70 18 105/51 (69) 91 12/05/17 20:00 Room Air 12/05/17 20:00 97.9 76 20 178/77 (110) 93 12/05/17 16:45 98.1 80 20 195/82 (119) 93 12/05/17 16:00 72 18 164/82 (109) 92 12/05/17 15:30 73 18 169/87 (114) 93 12/05/17 15:22 Room Air 21 12/05/17 15:15 70 18 173/85 (114) 91 12/05/17 15:00 98.7 72 18 176/77 (110) 92 12/05/17 12:00 99.0 84 20 176/74 (108) 96 I/O 12/05/17 12/05/17 12/05/17 12/06/17 12/06/17 12/06/17 06:59 14:59 22:59 06:59 14:59 22:59 Intake Total 1650 ml 360 ml 200 ml Output Total 880 ml 75 ml Balance 1650 ml -520 ml 125 ml Intake Oral 600 ml 360 ml 200 ml IV Total 1050 ml Output Urine Total 800 ml Drainage Total 80 ml 75 ml # Voids 1 # Bowel Movements 1 1 0 (Fani Sosa MD, R3) Result Diagram: 12/05/17 0637 12/06/17 0757 Objective Remarks GEN: Well-developed, well-nourished patient. No acute distress. Renal drainage bag recently emptied, reddish-brown tinged color CV: Regular rate and rhythm without obvious murmurs LUNGS: Clear to auscultation bilaterally. Normal respiratory effort. No wheezes , rales, rhonchi. GI: Soft non distended EXT: No edema. No calf tenderness. NEURO/PSYCH: Awake, alert. Appropriate insight and judgment. Normal speech (Fani Sosa MD, R3) A/P Assessment and Plan 67 y/o female with history of hypertension, diabetes, multiple drug-resistant UTIs in the past presents with UTI that failed outpatient therapy with Keflex. Found to have persistent right renal abscess, pseudomonas UTI. Discharge Planning Few days pending culture results of renal abscess * Will likely go back home with walker. Has good family support at home. * If she needs extermination inspector IV antibiotics this will need to be set up for her by ID sdw Dr. Salter (Fani Sosa MD, R3) Attending Attestation Medical rounds were performed with Dr Portillo, Patient was interviewed and examined, Agree with the contents of this note, See Assessment and Plan (French Salter MD) Problem List: (1) Renal abscess, right ICD Codes: N15.1 - Renal and perinephric abscess Status: Acute Plan: Prior hx of right emphysematous pyelonephritis and abscess. CT abdomen shows increase in size of gas and fluid collection on the right with appearance of an abscess. -Renal US: no appreciable change in fluid gas collection within the right kidney , probably an abscess -s/p abscess drainage by IR 12/05/17 -Cultures pending ID consulted: appreciate recommendations * continue Zosyn * awaiting drainage of abscess Medications: * Zosyn (11/27- (2) Hypertension Status: Chronic Plan: Elevated blood pressures - Increased to Lisinopril 40 mg daily - Amlodipine 10 mg daily - HCTZ 25mg daily - Increase to metoprolol 25mg daily - Vasotec PRN (3) UTI (urinary tract infection) ICD Codes: N39.0 - Urinary tract infection, site not specified Status: Resolved Plan: 11/26/17 Urine culture with pseudomonas. Resistant to quinolones. Repeat urine culture negative from 11/29/17 -Hx of recurrent UTIs, may benefit from PPX abx (4) Anemia ICD Codes: D64.9 - Anemia, unspecified Status: Acute Plan: History of iron deficiency anemia. - Continue home Iron (5) DELLA (acute kidney injury) ICD Codes: N17.9 - Acute kidney failure, unspecified Status: Acute Plan: Creatinine of 1.23 on admission. Elevated during last admission. Increased acutely after receiving contrast agent. Trending back down. Did decrease to a low of 0.94 a few weeks ago. - Avoid nephrotoxic agents as much as possible - DC fluids as pt has good PO intake to continue renal improvement. - Follow renal function (6) Diabetes mellitus ICD Codes: E11.9 - Type 2 diabetes mellitus without complications Status: Chronic Plan: Diabetes with long-term insulin use and gastroparesis per clinic notes - Hold home insulin - Low dose sliding scale while inpatient - Regular accuchecks (7) FEN Status: Acute Plan: Fluids: PO fluids Electrolytes: Hypokalemia, replaced with 40Meq Nutrition: Diabetic diet DVT ppx: Lovenox and Aspirin resumed GI PPX: continued home omeprazole (Fani Sosa MD, R3) Problem Qualifiers (1) UTI (urinary tract infection): Qualified Codes: N30.00 - Acute cystitis without hematuria (2) Anemia: Qualified Codes: D50.9 - Iron deficiency anemia, unspecified Fani Sosa MD, R3 Dec 06, 2017 10:23 French Salter MD Dec 07, 2017 14:50
--- NOTE | 2017-12-06 13:02 | HHI.IDPN ---
Note Infectious Disease Note Patient feels okay except for some pain at catheter entry site. No complaints. Afebrile. Catheter placed into R. kidney abscess draining maroon colored fluid. PAST MEDICAL HISTORY 1. Diabetes mellitus. 2. Hypertension. 3. Hyperlipidemia. 4. Congestive heart failure. 5. Multiple urinary tract infections. 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 7. Nephrostomy in 08/2017. ALLERGIES METFORMIN. CLONIDINE. ANTIBIOTICS: Piperacillin / Tazobactam OBJECTIVE: Vital Signs Date Time Temp Pulse Resp B/P (MAP) Pulse Ox O2 Delivery O2 Flow Rate FiO2 12/06/17 12:12 98.2 75 20 195/78 (117) 96 171/74 (106) 12/06/17 11:25 Room Air 12/06/17 08:35 97.4 76 20 117/57 (77) 93 12/06/17 07:26 18 12/06/17 04:00 98.2 75 18 187/84 (118) 90 12/06/17 00:00 98.6 70 18 105/51 (69) 91 12/05/17 20:00 Room Air 12/05/17 20:00 97.9 76 20 178/77 (110) 93 12/05/17 16:45 98.1 80 20 195/82 (119) 93 12/05/17 16:00 72 18 164/82 (109) 92 12/05/17 15:30 73 18 169/87 (114) 93 12/05/17 15:22 Room Air 21 12/05/17 15:15 70 18 173/85 (114) 91 12/05/17 15:00 98.7 72 18 176/77 (110) 92 Laboratory Tests Test 12/05/17 06:37 White Blood Count 10.6 TH/MM3 Red Blood Count 2.96 MIL/MM3 Hemoglobin 8.6 GM/DL Hematocrit 25.3 % Mean Corpuscular Volume 85.6 FL Mean Corpuscular Hemoglobin 29.0 PG Mean Corpuscular Hemoglobin Concent 33.9 % Red Cell Distribution Width 18.2 % Platelet Count 578 TH/MM3 Mean Platelet Volume 7.1 FL Laboratory Tests Test 12/05/17 06:37 12/06/17 07:57 Blood Urea Nitrogen 12 MG/DL 10 MG/DL Creatinine 1.28 MG/DL 1.22 MG/DL Random Glucose 142 MG/DL 145 MG/DL Calcium Level 8.9 MG/DL 8.7 MG/DL Sodium Level 140 MEQ/L 138 MEQ/L Potassium Level 3.1 MEQ/L 2.8 MEQ/L Chloride Level 105 MEQ/L 104 MEQ/L Carbon Dioxide Level 24.4 MEQ/L 24.7 MEQ/L Anion Gap 11 MEQ/L 9 MEQ/L Estimat Glomerular Filtration Rate 51 ML/MIN 54 ML/MIN Microbiology Date/Time Source Procedure Growth Status 12/05/17 14:45 Fluid Other Fungal Smear - Final NO FUNGAL ELEMENTS SEEN. Resulted 12/05/17 14:45 Fluid Other Fungal Culture Pending Resulted 12/05/17 14:45 Fluid Other Acid Fast Stain Pending Received 12/05/17 14:45 Fluid Other Mycobacterial Culture Pending Received 12/05/17 14:45 Fluid Other Gram Stain - Final Resulted 12/05/17 14:45 Fluid Other Body Fluid Culture - Preliminary NO GROWTH IN 24 HOURS. Resulted IMAGING: Retroperitoneal Abscess Drainage 12/05/17 0000 Signed Impressions: Service Date/Time: Tuesday, December 05, 2017 14:08 - CONCLUSION: Uncomplicated CT guided drainage of a right renal abscess. Aman Loza MD Abdomen/Pelvis CT 11/29/17 0000 Signed Impressions: Service Date/Time: Wednesday, November 29, 2017 14:41 - CONCLUSION: There is slight increase in size of the gas and fluid collection in the right kidney which has the appearance of an abscess and amenable to percutaneous guided drainage. There is however overall better enhancement of the right kidney since the prior study probably improvement in pyelonephritis. Laura Echeverria MD Renal Ultrasound 11/28/17 0000 Signed Impressions: Service Date/Time: Tuesday, November 28, 2017 16:52 - CONCLUSION: No appreciable change in fluid gas collection within the right kidney probably an abscess in the appropriate clinical setting. Laura Echeverria MD PHYSICAL EXAMINATION GENERAL: No acute distress. Awake and alert and oriented. HEENT: No icterus. Oropharynx moist mucosa without lesions. NECK: Supple without adenopathy. LUNGS: Clear to auscultation. CARDIOVASCULAR: Regular rate and rhythm without murmurs, rubs or gallops. ABDOMEN: Bowel sounds present, soft, Non tender. EXTREMITIES: No clubbing or cyanosis or edema. SKIN: No rash. NEUROLOGIC: No gross focal findings. PSYCHIATRIC: Calm and cooperative. IMPRESSION Recurrent urinary tract infection due to Pseudomonas. resistant to levaquin. R kidney abscess. Drainage catheter placed 12/05. RECOMMENDATION: Continue Zosyn IV. Follow culture of the abscess fluid. Determination on course of antibiotic based on adequate drainage of the abscess and new culture. If no growth or no new bacteria on culture maintain Zosyn until the drain is removed. Will follow prn. Nikita Griffin MD Dec 06, 2017 13:02
[2017-12-07] VITALS: BP_SYST 126; BP_SYST 185; BP_DIAS 58; BP_DIAS 80; PULSE 75; PULSE 99; RESP 18; TEMP 98.2; TEMP 98.3; O2SAT 94; O2SAT 97
[2017-12-07] MEDS: ACETAMINOPHEN/HYDROcodone 325 MG/7.5 MG TAB PO PRN ×6 (02:10→22:41)
[2017-12-07 04:00] VITALS: BP 178/80; PULSE 65; RESP 18; TEMP 98.5; O2SAT 94
[2017-12-07] MEDS: PIPERACIL-TAZO 3.375 GM PREMIX 50 ML IV SCH ×4 (04:11→21:07)
[2017-12-07] MEDS: ENALAPRILAT 1.25 MG/ML VIAL IV PUSH PRN (04:12)
[2017-12-07] MEDS: PHENAZOPYRIDINE HCL 200 MG TAB PO SCH (06:07)
[2017-12-07] MEDS: INSULIN ASPART SUPPLEMENTAL SCALE SQ SCH ×4 (08:00→21:00)
[2017-12-07 08:06] VITALS: BP 166/72; PULSE 79; RESP 16; TEMP 99; O2SAT 94
[2017-12-07] MEDS: SODIUM CHLORIDE 0.9% 10 ML VIAL IRRIGATION SCH (09:00)
[2017-12-07] MEDS: HYDROCHLOROTHIAZIDE 25 MG TAB PO SCH (09:08)
[2017-12-07] MEDS: FERROUS SULFATE 325 MG (65 MG ELEMENTAL IRON) TAB PO SCH ×2 (09:08→21:07)
[2017-12-07] MEDS: GEMFIBROZIL 600 MG TAB PO SCH (09:08)
[2017-12-07] MEDS: MULTIVITAMIN TAB PO SCH (09:08)
[2017-12-07] MEDS: LISINOPRIL 20 MG TAB PO SCH (09:08)
[2017-12-07] MEDS: PANTOPRAZOLE SOD 40 MG DELAYED RELEASE TAB PO SCH (09:08)
[2017-12-07] MEDS: PRAVASTATIN SOD 10 MG TAB PO SCH (09:09)
[2017-12-07] MEDS: METOPROLOL SUCCINATE 25 MG EXTENDED RELEASE TAB PO SCH (09:09)
[2017-12-07] MEDS: DOCUSATE SODIUM 50 MG/SENNA 8.6 MG TAB PO SCH ×2 (09:09→21:07)
[2017-12-07] MEDS: SODIUM CHLORIDE 0.9% FLUSH 10 ML FLUSH IV FLUSH SCH ×2 (09:19→21:00)
[2017-12-07] MEDS: ASPIRIN EC 325 MG TABEC PO SCH (09:20)
[2017-12-07 10:33] LABS: BICARBONATE 23.9 MEQ/L (21.0-32.0); CREATININE 1.2 MG/DL (0.50-1.00)
[2017-12-07] MEDS: ENOXAPARIN SODIUM 40 MG/0.4 ML SYRINGE SQ SCH (10:34)
--- NOTE | 2017-12-07 11:26 | HHI.FPPN ---
Subjective Remarks No acute events overnight. Vital signs unremarkable except for continued elevation in BP. Patient is otherwise asymptomatic and states that she is feeling well with no acute complaints. Denies chest pain, SOB. (Fani Sosa MD, R3) Objective Vitals Vital Signs Date Time Temp Pulse Resp B/P (MAP) Pulse Ox O2 Delivery O2 Flow Rate FiO2 12/07/17 11:06 Room Air 12/07/17 04:00 98.5 65 18 178/80 (112) 94 12/07/17 00:00 98.3 99 18 185/80 (115) 94 12/06/17 20:00 Room Air 21 12/06/17 20:00 98.9 74 18 167/74 (105) 92 12/06/17 17:29 98.8 71 20 152/66 (94) 94 12/06/17 17:26 96 21 12/06/17 12:12 98.2 75 20 195/78 (117) 96 171/74 (106) 12/06/17 11:25 Room Air I/O 12/06/17 12/06/17 12/06/17 12/07/17 12/07/17 12/07/17 07:00 15:00 23:00 07:00 15:00 23:00 Intake Total 200 ml 720 ml 50 ml Output Total 75 ml 900 ml 50 ml Balance 125 ml -180 ml 0 ml Intake Oral 200 ml 720 ml IV Total 50 ml Output Urine Total 900 ml Drainage Total 75 ml 50 ml # Voids 1 # Bowel Movements 0 1 (Fani Sosa MD, R3) Result Diagram: 12/05/17 0637 12/07/17 0835 Objective Remarks GEN: Well-developed, well-nourished patient. No acute distress. CV: Regular rate and rhythm without obvious murmurs LUNGS: Clear to auscultation bilaterally. Normal respiratory effort. No wheezes , rales, rhonchi. GI: non distended EXT: No edema. No calf tenderness. NEURO/PSYCH: Awake, alert. Appropriate insight and judgment. Normal speech (Fani Sosa MD, R3) A/P Assessment and Plan 67 y/o female with history of hypertension, diabetes, multiple drug-resistant UTIs in the past presents with UTI that failed outpatient therapy with Keflex. Found to have persistent right renal abscess, pseudomonas UTI. Discharge Planning 1-2 more days pending culture results of renal abscess * Will likely go back home with walker. Has good family support at home. * If she needs correction IV antibiotics this will need to be set up for her by ID sdw Dr. [facility] Attending Attestation Medical rounds were performed with Dr Portillo, Patient was interviewed and examined, Agree with the contents of this note, See Assessment and Plan (French Salter MD) Problem List: (1) Renal abscess, right ICD Codes: N15.1 - Renal and perinephric abscess Status: Acute Plan: Prior hx of right emphysematous pyelonephritis and abscess. CT abdomen shows increase in size of gas and fluid collection on the right with appearance of an abscess. -Renal US: no appreciable change in fluid gas collection within the right kidney , probably an abscess -s/p abscess drainage by IR 12/05/17 -Cultures negative x2days -decreasing drainage output (155-->50) ID consulted: appreciate recommendations * continue Zosyn until cultures are negative * If negative, continue Zosyn until drain is removed Medications: * Zosyn (11/27- (2) Hypertension Status: Chronic Plan: Elevated blood pressures. Will continue with current dose since it was recently increased and patient is currently asymptomatic. - Lisinopril 40 mg daily - Amlodipine 10 mg daily - HCTZ 25mg daily - Metoprolol 25mg daily - Vasotec PRN (3) UTI (urinary tract infection) ICD Codes: N39.0 - Urinary tract infection, site not specified Status: Resolved Plan: 11/26/17 Urine culture with pseudomonas. Resistant to quinolones. Repeat urine culture negative from 11/29/17 -Hx of recurrent UTIs, may benefit from PPX abx (4) Anemia ICD Codes: D64.9 - Anemia, unspecified Status: Acute Plan: History of iron deficiency anemia. - Continue home Iron (5) DELLA (acute kidney injury) ICD Codes: N17.9 - Acute kidney failure, unspecified Status: Acute Plan: Creatinine of 1.23 on admission. Elevated during last admission. Increased acutely after receiving contrast agent. Trending back down. Did decrease to a low of 0.94 a few weeks ago. - Avoid nephrotoxic agents as much as possible - DC fluids as pt has good PO intake to continue renal improvement. - Follow renal function (6) Diabetes mellitus ICD Codes: E11.9 - Type 2 diabetes mellitus without complications Status: Chronic Plan: Diabetes with long-term insulin use and gastroparesis per clinic notes - Hold home insulin - Low dose sliding scale while inpatient - Regular accuchecks (7) FEN Status: Acute Plan: Fluids: PO fluids Electrolytes: Hypokalemia, replaced with 40Meq. Will start daily KCL 20meq Nutrition: Diabetic diet DVT ppx: Lovenox and Aspirin GI PPX: continued home omeprazole (Fani Sosa MD, R3) Problem Qualifiers (1) UTI (urinary tract infection): Qualified Codes: N30.00 - Acute cystitis without hematuria (2) Anemia: Qualified Codes: D50.9 - Iron deficiency anemia, unspecified Fani Sosa MD, R3 Dec 07, 2017 11:26 French Salter MD Dec 07, 2017 14:54
[2017-12-07 12:06] VITALS: BP 171/75; PULSE 72; RESP 16; TEMP 98.6; O2SAT 93
[2017-12-07 16:06] VITALS: BP 168/74; PULSE 76; RESP 16; TEMP 98.8; O2SAT 94
[2017-12-07 20:00] VITALS: BP 153/71; PULSE 66; RESP 16; TEMP 98; O2SAT 95
[2017-12-08] VITALS: BP 156/69; PULSE 73; RESP 16; TEMP 98.3; O2SAT 96
[2017-12-08] MEDS: ACETAMINOPHEN/HYDROcodone 325 MG/7.5 MG TAB PO PRN ×2 (02:37→06:21)
[2017-12-08] MEDS: PIPERACIL-TAZO 3.375 GM PREMIX 50 ML IV SCH ×4 (02:55→22:33)
[2017-12-08 04:00] VITALS: BP 171/77; PULSE 70; RESP 16; TEMP 98.3; O2SAT 95
[2017-12-08] MEDS: ENALAPRILAT 1.25 MG/ML VIAL IV PUSH PRN (04:21)
[2017-12-08 08:00] VITALS: BP_SYST 190; BP_SYST 224; BP_DIAS 86; BP_DIAS 97; PULSE 78; RESP 20; TEMP 97.5; O2SAT 94
[2017-12-08] MEDS: INSULIN ASPART SUPPLEMENTAL SCALE SQ SCH ×4 (08:00→21:00)
[2017-12-08] MEDS: PANTOPRAZOLE SOD 40 MG DELAYED RELEASE TAB PO SCH (09:02)
[2017-12-08] MEDS: PRAVASTATIN SOD 10 MG TAB PO SCH (09:02)
[2017-12-08] MEDS: DOCUSATE SODIUM 50 MG/SENNA 8.6 MG TAB PO SCH ×2 (09:02→21:36)
[2017-12-08] MEDS: MULTIVITAMIN TAB PO SCH (09:02)
[2017-12-08] MEDS: ASPIRIN EC 325 MG TABEC PO SCH (09:02)
[2017-12-08] MEDS: FERROUS SULFATE 325 MG (65 MG ELEMENTAL IRON) TAB PO SCH ×2 (09:02→21:36)
[2017-12-08] MEDS: POTASSIUM CHLORIDE 20 MEQ CONTROLLED RELEASE TAB PO SCH (09:02)
[2017-12-08] MEDS: HYDROCHLOROTHIAZIDE 25 MG TAB PO SCH (09:03)
[2017-12-08] MEDS: GEMFIBROZIL 600 MG TAB PO SCH (09:03)
[2017-12-08] MEDS: LISINOPRIL 20 MG TAB PO SCH (09:03)
[2017-12-08] MEDS: METOPROLOL SUCCINATE 25 MG EXTENDED RELEASE TAB PO SCH (09:03)
[2017-12-08] MEDS: SODIUM CHLORIDE 0.9% FLUSH 10 ML FLUSH IV FLUSH SCH ×2 (09:14→21:00)
[2017-12-08] MEDS: SODIUM CHLORIDE 0.9% 10 ML VIAL IRRIGATION SCH (09:16)
[2017-12-08] MEDS: CARVEDILOL 12.5 MG TAB PO SCH ×2 (10:24→21:36)
[2017-12-08] MEDS: ACETAMINOPHEN/HYDROcodone 325 MG/10 MG TAB PO PRN ×4 (10:24→22:33)
--- NOTE | 2017-12-08 10:54 | HHI.FPPN ---
Subjective Remarks No acute events overnight. Vital signs unremarkable except for continued elevation of BP. Patient remains asymptomatic denies headaches, vision changes. She continues to feel well with no acute concerns. Drain output only 5 cc in last 24 hours (Fani Sosa MD, R3) Objective Vitals Vital Signs Date Time Temp Pulse Resp B/P (MAP) Pulse Ox O2 Delivery O2 Flow Rate FiO2 12/08/17 08:00 97.5 78 20 190/86 (120) 94 224/97 (139) 12/08/17 04:39 Room Air 12/08/17 04:00 98.3 70 16 171/77 (108) 95 12/08/17 00:13 Room Air 12/08/17 00:00 98.3 73 16 156/69 (98) 96 12/07/17 20:00 98.0 66 16 153/71 (98) 95 Manual Cuff/Auscultation 12/07/17 20:00 Room Air 12/07/17 16:06 98.8 76 16 168/74 (105) 94 12/07/17 12:06 98.6 72 16 171/75 (107) 93 12/07/17 11:06 Room Air I/O 12/07/17 12/07/17 12/07/17 12/08/17 12/08/17 12/08/17 07:00 15:00 23:00 07:00 15:00 23:00 Intake Total 50 ml 50 ml 620 ml 410 ml Output Total 50 ml 5 ml Balance 0 ml 50 ml 620 ml 405 ml Intake Oral 520 ml 360 ml IV Total 50 ml 50 ml 100 ml 50 ml Drainage Total 50 ml 5 ml # Voids 6 # Bowel Movements 2 (Fani Sosa MD, R3) Result Diagram: 12/05/17 0637 12/07/17 0835 Objective Remarks GEN: Well-developed, well-nourished patient. No acute distress. No liquid in drain. CV: Regular rate and rhythm without obvious murmurs LUNGS: Clear to auscultation bilaterally. Normal respiratory effort. No wheezes , rales, rhonchi. GI: non distended EXT: No edema. No calf tenderness. NEURO/PSYCH: Awake, alert. Appropriate insight and judgment. Normal speech (Fani Sosa MD, R3) A/P Assessment and Plan 67 y/o female with history of hypertension, diabetes, multiple drug-resistant UTIs in the past presents with UTI that failed outpatient therapy with Keflex. Found to have persistent right renal abscess, pseudomonas UTI. Discharge Planning 1-2 more days pending culture results of renal abscess and repeat renal ultrasound * Will likely go back home with walker. Has good family support at home. sdw Dr. Salter (Fani Sosa MD, R3) Attending Attestation Medical rounds were performed with Dr Fani Sosa, patient seen and examined, Agree with documentation, See Orders (French Salter MD) Problem List: (1) Renal abscess, right ICD Codes: N15.1 - Renal and perinephric abscess Status: Acute Plan: Prior hx of right emphysematous pyelonephritis and abscess. CT abdomen shows increase in size of gas and fluid collection on the right with appearance of an abscess. -Renal US: no appreciable change in fluid gas collection within the right kidney , probably an abscess * Repeat renal ultrasound 12/08/17. If no residual abscess present, can remove drain. If residual abscess still present, will consult urology for recommendations. -s/p abscess drainage by IR 12/05/17 -Cultures negative x3days -decreasing drainage output (155-->50-->5) ID consulted: appreciate recommendations * continue Zosyn until cultures are negative * If negative, continue Zosyn until drain is removed Medications: * Zosyn (11/27- (2) Hypertension Status: Chronic Plan: Elevated blood pressures, difficult to control but patient remains asymptomatic. - Lisinopril 40 mg daily - Amlodipine 10 mg daily - HCTZ 25mg daily - Discontinued Metoprolol 25mg daily - Begin Coreg 12.5MG daily - Vasotec PRN (3) UTI (urinary tract infection) ICD Codes: N39.0 - Urinary tract infection, site not specified Status: Resolved Plan: 11/26/17 Urine culture with pseudomonas. Resistant to quinolones. Repeat urine culture negative from 11/29/17 -Hx of recurrent UTIs, may benefit from PPX abx (4) Anemia ICD Codes: D64.9 - Anemia, unspecified Status: Chronic Plan: History of iron deficiency anemia. - Continue home Iron (5) DELLA (acute kidney injury) ICD Codes: N17.9 - Acute kidney failure, unspecified Status: Acute Plan: Creatinine of 1.23 on admission. Elevated during last admission. Increased acutely after receiving contrast agent. Trending back down. Did decrease to a low of 0.94 a few weeks ago. - Avoid nephrotoxic agents as much as possible - DC fluids as pt has good PO intake to continue renal improvement. - Follow renal function (6) Diabetes mellitus ICD Codes: E11.9 - Type 2 diabetes mellitus without complications Status: Chronic Plan: Diabetes with long-term insulin use and gastroparesis per clinic notes - Hold home insulin - Low dose sliding scale while inpatient - Regular accuchecks (7) FEN Status: Acute Plan: Fluids: PO fluids Electrolytes: Hypokalemia, replaced with 40Meq. daily KCL 20meq Nutrition: Diabetic diet DVT ppx: Lovenox and Aspirin GI PPX: continued home omeprazole (Fani Sosa MD, R3) Problem Qualifiers (1) UTI (urinary tract infection): Qualified Codes: N30.00 - Acute cystitis without hematuria (2) Anemia: Qualified Codes: D50.9 - Iron deficiency anemia, unspecified Fani Sosa MD, R3 Dec 08, 2017 10:54 French Salter MD Dec 09, 2017 14:09
--- NOTE | 2017-12-08 11:22 | RADRPT ---
EXAM DATE/TIME: 12/08/2017 10:13 [facility] COMPARISON: CT ABSCESS DRAINAGE BRUNO/RETRO, December 05, 2017, 14:08. INDICATIONS : Evaluation of abscess status post drainage, right sided, obstruction. MEDICAL HISTORY : Hypercholesterolemia. MRSA. Diabetes. SURGICAL HISTORY : section. Renal stent. Abscess drain, right kidney. ENCOUNTER: [facility] ACUITY: 4-6 days PAIN SCORE: 7/10 LOCATION: Bilateral flank MEASUREMENTS: RIGHT KIDNEY: 12.7 x 6.5 x 5.9 cm LEFT KIDNEY: 10.7 x 5.5 x 6.5 cm FINDINGS: RIGHT KIDNEY: Renal cortex is normal in thickness and normal echotexture. No hydronephrosis, stone, or mass. Comp remy heterogeneous and echogenic area in the right mid kidney measures 3.8 x 5.5 x 3 point recent mete rs. Adjacent catheter seen. LEFT KIDNEY: Renal cortex is normal in thickness and normal echotexture. No hydronephrosis, stone, or mass. BLADDER: Within normal limits given the degree of distension. CONCLUSION: 1. Echogenic area in the right mid kidney consistent with patient's known abscess. It is difficult to compare the abscess size accurately. CT scan is much better for assessment/size of abscess. 2. No definite hydronephrosis. Carlos Triplett MD on December 08, 2017 at 11:17 Board Certified Radiologist. This report was verified electronically.
[2017-12-08 11:47] LABS: CALCIUM 9.1 MG/DL (8.5-10.1); CREATININE 1.16 MG/DL (0.50-1.00)
[2017-12-08 12:00] VITALS: BP 196/88; PULSE 73; RESP 20; TEMP 98.8; O2SAT 95
[2017-12-08 12:13] LABS: AUTOMATED NEUTROPHIL # 5.3 TH/MM3 (1.8-7.7); BASOPHIL # 0.1 TH/MM3 (0-0.2); BASOPHIL % 1.2 % (0.0-2.0); EOSINOPHIL # 0.7 TH/MM3 (0-0.4); EOSINOPHIL % 6.3 % (0.0-4.0); HEMATOCRIT 27.3 % (35.0-46.0); LYMPH % 34.8 % (9.0-44.0); LYMPHOCYTE # 3.6 TH/MM3 (1.0-4.8); MEAN CELL VOLUME 86.8 FL (80.0-100.0); MEAN CORPUSCULAR HEMOGLOBIN 28.8 PG (27.0-34.0); MEAN CORPUSCULAR HGB CONC 33.2 % (32.0-36.0); MEAN PLATELET VOLUME 6.9 FL (7.0-11.0); MONO % 6.6 % (0.0-8.0); MONOCYTE # 0.7 TH/MM3 (0-0.9); NEUT % 51.1 % (16.0-70.0); PLATELET COUNT 663 TH/MM3 (150-450); RED BLOOD COUNT 3.14 MIL/MM3 (4.00-5.30); RED CELL DISTRIBUTION WIDTH 17.9 % (11.6-17.2); WHITE BLOOD COUNT 10.4 TH/MM3 (4.0-11.0)
[2017-12-08] MEDS: ENOXAPARIN SODIUM 40 MG/0.4 ML SYRINGE SQ SCH (12:41)
--- NOTE | 2017-12-08 14:20 | HHI.PR ---
Subjective Patient symptoms today C/o pain at drain site. Denies, fevers, chills, dysuria, urgency or frequency. Objective Vital Signs Vital Signs Date Time Temp Pulse Resp B/P (MAP) Pulse Ox O2 Delivery O2 Flow Rate FiO2 12/08/17 12:00 98.8 73 20 196/88 (124) 95 12/08/17 11:12 21 12/08/17 08:00 Room Air 12/08/17 08:00 97.5 78 20 190/86 (120) 94 224/97 (139) 12/08/17 04:39 Room Air 12/08/17 04:00 98.3 70 16 171/77 (108) 95 12/08/17 00:13 Room Air 12/08/17 00:00 98.3 73 16 156/69 (98) 96 12/07/17 20:00 98.0 66 16 153/71 (98) 95 Manual Cuff/Auscultation 12/07/17 20:00 Room Air 12/07/17 16:06 98.8 76 16 168/74 (105) 94 Intake & Output 12/08/17 12/08/17 06:59 18:59 Intake Total 460 ml 480 ml Output Total 5 ml Balance 455 ml 480 ml Intake Oral 360 ml 480 ml IV Total 100 ml Drainage Total 5 ml # Voids 2 Result Diagram: 12/08/17 1111 12/08/17 1111 Imaging Last 24 hours Impressions Renal Ultrasound 12/08/17 0000 Signed Impressions: Service Date/Time: November 10:13 - CONCLUSION: 1. Echogenic area in the right mid kidney consistent with patient's known abscess. It is difficult to compare the abscess size accurately. CT scan is much better for assessment/size of abscess. 2. No definite hydronephrosis. Carlos Triplett MD Objective Remarks NAD. A/O x 3 abd soft No CVAT right percutaneous drain with brown purulent drainage. Medications and IVs Current Medications Medications (Trade) Dose Ordered Sig/Alisha Route Start Time Stop Time Status Last Admin (NS Flush) 2 ml UNSCH PRN IV FLUSH 11/26/17 11:15 11/30/17 03:56 (NS Flush) 2 ml BID IV FLUSH 11/26/17 21:00 12/08/17 09:14 (Tylenol) 650 mg Q4H PRN PO 11/26/17 11:15 (Zofran Inj) 4 mg Q6H PRN IVP 11/26/17 11:15 (Lovenox Inj) 40 mg Q24H SQ 11/26/17 12:00 Future hold 12/08/17 12:41 (Narcan Inj) 0.4 mg UNSCH PRN IV PUSH 11/26/17 11:15 (Bridgette-Colace) 1 tab BID PO 11/26/17 21:00 12/08/17 09:02 (Milk Of Magnesia Liq) 30 ml Q12H PRN PO 11/26/17 11:15 11/28/17 16:55 (Senokot) 17.2 mg Q12H PRN PO 11/26/17 11:15 (Dulcolax Supp) 10 mg DAILY PRN RECTAL 11/26/17 11:15 (Lactulose Liq) 30 ml DAILY PRN PO 11/26/17 11:15 (Norvasc) 10 mg DAILY PO 11/27/17 09:00 12/08/17 09:02 (Ecotrin Ec) 325 mg DAILY PO 11/27/17 09:00 Future hold 12/08/17 09:02 (Ferrous Sulfate) 325 mg BID PO 11/26/17 21:00 12/08/17 09:02 (Lopid) 300 mg DAILY PO 11/27/17 09:00 12/08/17 09:03 (Theragran) 1 tab DAILY PO 11/27/17 09:00 12/08/17 09:02 (Protonix) 40 mg DAILY PO 11/27/17 09:00 12/08/17 09:02 (Pravachol) 10 mg DAILY PO 11/27/17 09:00 12/08/17 09:02 Patient Own Medication PT OWN MED: (Erythromycin Base 250 MG) BID PO 11/26/17 21:00 Future Hold (D50w (Vial) Inj) 50 ml UNSCH PRN IV PUSH 11/26/17 11:15 (Glucagon Inj) 1 mg UNSCH PRN OTHER 11/26/17 11:15 (NovoLOG SUPPLEMENTAL SCALE) 1 ACHS SLIDING SCALE SQ 11/26/17 12:00 12/08/17 12:41 (Vasotec Inj) 1.25 mg Q6H PRN IV PUSH 11/26/17 14:00 12/08/17 04:21 (Morphine Inj) 2 mg Q3H PRN IV PUSH 11/26/17 14:00 ([place] 5-325 Mg) 1 tab Q4H PRN PO 11/26/17 14:15 12/02/17 17:59 Piperacillin Sod/ Tazobactam Sod 50 ml @ 100 mls/hr Q6H IV 11/27/17 10:00 12/08/17 09:02 (Hydrodiuril) 25 mg DAILY PO 11/30/17 09:15 12/08/17 09:03 (Pyridium) 200 mg Q8HR PO 11/30/17 15:00 Future Hold 12/07/17 06:07 (Pill Splitter) 1 ea UNSCH PRN OTHER 12/01/17 14:00 (Prinivil) 40 mg DAILY PO 12/06/17 09:00 12/08/17 09:03 (NS Inj) 10 ml DAILY IRRIGATION 12/06/17 09:00 12/08/17 09:16 (KCl) 20 meq DAILY PO 12/08/17 09:00 12/08/17 09:02 ([place] 10-325 Mg) 1 tab Q4H PRN PO 12/08/17 09:30 12/08/17 10:24 (Coreg) 12.5 mg Q12HR PO 12/08/17 09:45 12/08/17 10:24 Assessment and Plan Assessment and Plan 67 yo female h/o DM, emphysematous pyelonephritis admitted with urinary frequency, urgency with right perinephric abscess -Renal U/S reviewed. right kidney appears improved compared to prior ultrasound. However, CT is much more accurate. Will obtain CT -If abscess resolved, drain can be removed. -Antibiotics per ID -F/U as outpatient for ureteral stent removal. Shahram Ramirez MD Dec 08, 2017 14:20
[2017-12-08 16:00] VITALS: BP 198/88; PULSE 77; RESP 20; TEMP 98.6; O2SAT 98
--- NOTE | 2017-12-08 16:42 | RADRPT ---
EXAM DATE/TIME: 12/08/2017 14:57 [facility] COMPARISON: CT ABDOMEN & PELVIS W/O CONTRAST, October 13, 2017, 9:53. INDICATIONS : Follow up abcess. ORAL CONTRAST: No oral contrast ingested. RADIATION DOSE: 10.79 CTDIvol (mGy) MEDICAL HISTORY : Hypertension. Diabetes mellitus type 2. SURGICAL HISTORY : Nephrectomy, right. section. ENCOUNTER: Initial ACUITY: 1 day PAIN SCALE: 0/10 LOCATION: Right lower quadrant TECHNIQUE: Volumetric scanning of the abdomen and pelvis was performed. Using automated exposure control and ad justment of the mA and/or kV according to patient size, radiation dose was kept as low as reasonably achievable to obtain optimal diagnostic quality images. DICOM format image data is available electro nically for review and comparison. FINDINGS: LOWER LUNGS: The visualized lower lungs are clear. Dense calcification of the mitral valve annulus LIVER: Homogeneous density without lesion. There is no dilation of the biliary tree. No calcified gallston es. SPLEEN: Normal size without lesion. PANCREAS: Within normal limits. KIDNEYS: Large bore Thorp loop catheter anteriorly at the junction of the upper and midpole of the right kidney appears to be positioned in the far lateral aspect the perinephric abscess. There is still some air collection remaining, however. Double-J stent in the right renal collecting system/ureter. ADRENAL GLANDS: Within normal limits. VASCULAR: There is no aortic aneurysm. BOWEL/MESENTERY: The stomach, small bowel, and colon demonstrate no acute abnormality. There is no free intraperitone al air or fluid. ABDOMINAL WALL: Within normal limits. RETROPERITONEUM: There is no lymphadenopathy. BLADDER: No wall thickening or mass. REPRODUCTIVE: Within normal limits. INGUINAL: There is no lymphadenopathy or hernia. MUSCULOSKELETAL: Within normal limits for patient age. CONCLUSION: 1. Large bore Thorp loop catheter in the presumed parenchymal/perinephric abscess of the right kidney is in the far lateral aspect of the collection. There is still some air density more medially. I have scheduled the patient for manipulation and repositioning of the drain. 2. Double-J stent remains stable in position. 3. Dense calcification of the mitral valve annulus. Rony Sarabia MD on December 08, 2017 at 16:36 Board Certified Radiologist. This report was verified electronically.
[2017-12-08] MEDS ORDERED: SODIUM CHLOR 0.9% 1000 ML INJ 1,000 ML IV SCH (17:00)
[2017-12-08 20:00] VITALS: BP 147/82; PULSE 72; RESP 21; TEMP 98.5; O2SAT 98
[2017-12-09] VITALS: BP 145/67; PULSE 63; RESP 19; TEMP 97.9; O2SAT 94
[2017-12-09] MEDS: ACETAMINOPHEN/HYDROcodone 325 MG/10 MG TAB PO PRN ×6 (02:35→22:53)
[2017-12-09] MEDS: PIPERACIL-TAZO 3.375 GM PREMIX 50 ML IV SCH ×4 (03:42→22:55)
[2017-12-09 04:00] VITALS: BP 124/77; PULSE 60; RESP 20; TEMP 98; O2SAT 98
[2017-12-09 08:00] VITALS: BP 168/72; PULSE 67; RESP 18; TEMP 97; O2SAT 98
[2017-12-09] MEDS: MULTIVITAMIN TAB PO SCH (08:39)
[2017-12-09] MEDS: ASPIRIN EC 325 MG TABEC PO SCH (08:39)
[2017-12-09] MEDS: CARVEDILOL 12.5 MG TAB PO SCH ×2 (08:39→22:51)
[2017-12-09] MEDS: LISINOPRIL 20 MG TAB PO SCH (08:40)
[2017-12-09] MEDS: HYDROCHLOROTHIAZIDE 25 MG TAB PO SCH (08:40)
[2017-12-09] MEDS: POTASSIUM CHLORIDE 20 MEQ CONTROLLED RELEASE TAB PO SCH (08:40)
[2017-12-09] MEDS: DOCUSATE SODIUM 50 MG/SENNA 8.6 MG TAB PO SCH ×2 (08:40→22:52)
[2017-12-09] MEDS: GEMFIBROZIL 600 MG TAB PO SCH (08:40)
[2017-12-09] MEDS: PANTOPRAZOLE SOD 40 MG DELAYED RELEASE TAB PO SCH (08:40)
[2017-12-09] MEDS: SODIUM CHLORIDE 0.9% 10 ML VIAL IRRIGATION SCH (08:41)
[2017-12-09] MEDS: PRAVASTATIN SOD 10 MG TAB PO SCH (08:41)
[2017-12-09] MEDS: INSULIN ASPART SUPPLEMENTAL SCALE SQ SCH ×4 (08:41→22:52)
[2017-12-09] MEDS: FERROUS SULFATE 325 MG (65 MG ELEMENTAL IRON) TAB PO SCH ×2 (08:41→22:51)
[2017-12-09] MEDS: SODIUM CHLORIDE 0.9% FLUSH 10 ML FLUSH IV FLUSH SCH ×2 (08:41→22:51)
--- NOTE | 2017-12-09 10:39 | HHI.FPPN ---
Subjective Remarks No acute events overnight. Vital signs unremarkable. BP is much improved today. Patient did report one episode of orthostatic hypotension but this has since resolved. She does sit up and stand up more slowly to make sure she is not lightheaded. Denies chest pain, SOB. Otherwise patient feels well. (Fani Sosa MD, R3) Objective Vitals Vital Signs Date Time Temp Pulse Resp B/P (MAP) Pulse Ox O2 Delivery O2 Flow Rate FiO2 12/09/17 08:00 97.0 67 18 168/72 (104) 98 12/09/17 04:00 98.0 60 20 124/77 (93) 98 12/09/17 00:00 97.9 63 19 145/67 (93) 94 12/09/17 00:00 Room Air 12/08/17 22:38 Room Air 12/08/17 20:00 98.5 72 21 147/82 (103) 98 12/08/17 16:00 98.6 77 20 198/88 (124) 98 12/08/17 12:00 98.8 73 20 196/88 (124) 95 12/08/17 11:12 21 I/O 12/08/17 12/08/17 12/08/17 12/09/17 12/09/17 12/09/17 07:00 15:00 23:00 07:00 15:00 23:00 Intake Total 410 ml 480 ml 1530 ml Output Total 5 ml 50 ml 750 ml Balance 405 ml 480 ml -50 ml 780 ml Intake Oral 360 ml 480 ml 480 ml IV Total 50 ml 1050 ml Output Urine Total 750 ml Drainage Total 5 ml 50 ml # Voids 2 # Bowel Movements 1 (Fani Sosa MD, R3) Result Diagram: 12/08/17 1111 12/08/17 1111 Objective Remarks GEN: Well-developed, well-nourished patient. No acute distress. CV: Regular rate and rhythm without obvious murmurs LUNGS: Clear to auscultation bilaterally. Normal respiratory effort. No wheezes , rales, rhonchi. GI: non distended EXT: No edema. No calf tenderness. NEURO/PSYCH: Awake, alert. Appropriate insight and judgment. Normal speech (Fani Sosa MD, R3) A/P Assessment and Plan 67 y/o female with history of hypertension, diabetes, multiple drug-resistant UTIs in the past presents with UTI that failed outpatient therapy with Keflex. Found to have persistent right renal abscess, pseudomonas UTI. Discharge Planning Pending Timeline Indeterminate at this time. Issue involves further treatment of renal abscess/drainage. Need to coordinate possible antibiotic change for continued treatment as drain needs to stay in until patient follows up with urology and antibiotics need to be continued until drainage removed. * Will likely go back home with walker. Has good family support at home. * May require home IV antibiotics sdw Dr. Salter (Fani Sosa MD, R3) Attending Attestation Medical rounds were performed with Dr Fani Sosa, patient seen and examined, Agree with documentation, See Orders (French Salter MD) Problem List: (1) Renal abscess, right ICD Codes: N15.1 - Renal and perinephric abscess Status: Acute Plan: Prior hx of right emphysematous pyelonephritis and abscess. Initial CT abdomen shows increase in size of gas and fluid collection on the right with appearance of an abscess. -s/p abscess drainage by IR 12/05/17 -Cultures negative x3days -decreasing drainage output Urology consulted: * Follow up as outpatient for removal * antibiotics per ID * will attempt to reach Dr. Ramirez for anticipated follow up time ID consulted: appreciate recommendations * continue Zosyn until cultures are negative * If negative, continue Zosyn until drain is removed * Called Dr. Thomas: call CM and place PICC line, will give zosyn x1 week at q12 dosing. Pt will need to have close follow up of her renal function Imaging: * Renal US: no appreciable change in fluid gas collection within the right kidney, probably an abscess * Repeat renal ultrasound 12/08/17. If no residual abscess present, can remove drain. If residual abscess still present repeat Abdominal CT s/p drain ordered: Per discussion with radiologist. Catheter is in the lateral aspect of the collection. There appears to be a more loculated aspect of the abscess that is deeper. Do not believe repositioning of the current drain will help with this loculated area. Possibility of placing another drain was considered however it is small in the pocket may not accommodate this drain. Would recommend watching and waiting as long as patient is clinically stable. There is also the consideration of TPA but this is not ideal in solid organs. Medications: * Zosyn (11/27- (2) Hypertension Status: Chronic Plan: Elevated blood pressures, difficult to control but patient remains asymptomatic. BP has begun to improve - Lisinopril 40 mg daily - Amlodipine 10 mg daily - HCTZ 25mg daily - Coreg 12.5MG daily - Vasotec PRN (3) UTI (urinary tract infection) ICD Codes: N39.0 - Urinary tract infection, site not specified Status: Resolved Plan: 11/26/17 Urine culture with pseudomonas. Resistant to quinolones. Repeat urine culture negative from 11/29/17 -Hx of recurrent UTIs, may benefit from PPX abx (4) Anemia ICD Codes: D64.9 - Anemia, unspecified Status: Chronic Plan: History of iron deficiency anemia. - Continue home Iron (5) DELLA (acute kidney injury) ICD Codes: N17.9 - Acute kidney failure, unspecified Status: Acute Plan: Creatinine of 1.23 on admission. Elevated during last admission. Increased acutely after receiving contrast agent. Trending back down and stable - Avoid nephrotoxic agents as much as possible - DC fluids as pt has good PO intake to continue renal improvement. - Follow renal function (6) Diabetes mellitus ICD Codes: E11.9 - Type 2 diabetes mellitus without complications Status: Chronic Plan: Diabetes with long-term insulin use and gastroparesis per clinic notes - Hold home insulin - Low dose sliding scale while inpatient - Regular accuchecks (7) FEN Status: Acute Plan: Fluids: PO fluids Electrolytes: Hypokalemia, replaced with 20Meq. daily KCL 20meq Nutrition: Diabetic diet DVT ppx: Lovenox and Aspirin GI PPX: continued home omeprazole (Fani Sosa MD, R3) Problem Qualifiers (1) UTI (urinary tract infection): Qualified Codes: N30.00 - Acute cystitis without hematuria (2) Anemia: Qualified Codes: D50.9 - Iron deficiency anemia, unspecified Fani Sosa MD, R3 Dec 09, 2017 10:38 French Salter MD Dec 09, 2017 14:13
[2017-12-09 10:50] LABS: BICARBONATE 23.2 MEQ/L (21.0-32.0); CALCIUM 8.8 MG/DL (8.5-10.1); CREATININE 1.34 MG/DL (0.50-1.00)
[2017-12-09 12:00] VITALS: BP 159/68; PULSE 66; RESP 17; TEMP 98.7; O2SAT 93
--- NOTE | 2017-12-09 12:32 | HHI.FF ---
Infusion Therapy Location of Infusion Therapy: Home Health Care IV Infusion Order Patient Information Patient Weight 72.3 kg Diagnosis: Diagnosis kidney abscess. Coded Allergies: metformin (Verified Allergy, Severe, Numbness, 11/26/17) clonidine (Verified Allergy, Unknown, 11/26/17) chest pain Administer Medication Piperacillin/Tazobactam 3.375 grams IV q 6 hours On infusion pump. 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 [] May leave port accessed during therapy. [] May leave peripheral site accessed for duration of therapy. [x] If patient has SOB or respiratory distress, check oxygen saturation. If less than 90% or clinical signs of respiratory distress, administer oxygen at 2 L/min. via nasal cannula and notify physician. [x] Anaphylaxis/Reaction orders: * Stop infusion. * Keep IV line open with saline flush. * Notify physician. * Monitor vital signs every 15 minutes until symptoms resolve. * Check Oxygen saturation; Oxygen at 2 L/min. via nasal cannula if less than 90% or clinical signs of respiratory distress. * Administer diphenhydramine (Benadryl) 25 mg IV STAT, (unless patient has received as pre-med). May repeat once, if necessary. * Solu-Cortef 250 mg IVP over 30-60 seconds, use 100 mg vials for each dissolution. * Epinephrine (1mg/1 ml) 0.3 mg subcutaneously or IVP now with any signs of respiratory distress. * Check with physician for new additional pre-med orders if patient is re- challenged or re-treated. [x] May remove PICC line when treatment complete, after confirming with Physician. [x] If the patient is admitted to the hospital, the ED, or transferred via [facility] , complete transfer form including medication reconciliation order sheet. Laboratory Tests Additional Information BMP Q3 days while on IV antibiotic. Nikita Griffin MD Dec 09, 2017 12:32
[2017-12-09] MEDS: ENOXAPARIN SODIUM 40 MG/0.4 ML SYRINGE SQ SCH (13:05)
[2017-12-09] MEDS ORDERED: POTASSIUM CHLORIDE 20 MEQ CONTROLLED RELEASE TAB PO ONE (13:15)
--- NOTE | 2017-12-09 13:57 | HHI.FF ---
Face to Face Verification Diagnosis: (1) Renal abscess, right (2) DELLA (acute kidney injury) Home Health Nursing Order: Medical education Medication education-adverse effect IV medication administration [place] catheter maintenance (urinary catheter/drain management) I have seen patient Billie Cohen on 12/09/17. My clinical findings support the need for the requested home health care services because: Infection w/ risk of complications Injectable med education/admin I certify that my clinical findings support that this patient is homebound because: Unsafe to leave home unassisted Fani Sosa MD, R3 Dec 09, 2017 13:57
--- NOTE | 2017-12-09 15:45 | HHI.IDPN ---
Note Infectious Disease Note Patient without complaints. Afebrile. Catheter placed into R. kidney abscess draining light brown fluid. Plan is to discharge with the catheter and follow up with urology. PAST MEDICAL HISTORY 1. Diabetes mellitus. 2. Hypertension. 3. Hyperlipidemia. 4. Congestive heart failure. 5. Multiple urinary tract infections. 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 7. Nephrostomy in 08/2017. ALLERGIES METFORMIN. CLONIDINE. ANTIBIOTICS: Piperacillin / Tazobactam OBJECTIVE: Vital Signs Date Time Temp Pulse Resp B/P (MAP) Pulse Ox O2 Delivery O2 Flow Rate FiO2 12/09/17 12:00 98.7 66 17 159/68 (98) 93 12/09/17 08:00 Room Air 12/09/17 08:00 97.0 67 18 168/72 (104) 98 12/09/17 04:00 98.0 60 20 124/77 (93) 98 12/09/17 00:00 97.9 63 19 145/67 (93) 94 12/09/17 00:00 Room Air 12/08/17 22:38 Room Air 12/08/17 20:00 98.5 72 21 147/82 (103) 98 12/08/17 16:00 98.6 77 20 198/88 (124) 98 Laboratory Tests Test 12/08/17 11:11 White Blood Count 10.4 TH/MM3 Red Blood Count 3.14 MIL/MM3 Hemoglobin 9.0 GM/DL Hematocrit 27.3 % Mean Corpuscular Volume 86.8 FL Mean Corpuscular Hemoglobin 28.8 PG Mean Corpuscular Hemoglobin Concent 33.2 % Red Cell Distribution Width 17.9 % Platelet Count 663 TH/MM3 Mean Platelet Volume 6.9 FL Neutrophils (%) (Auto) 51.1 % Lymphocytes (%) (Auto) 34.8 % Monocytes (%) (Auto) 6.6 % Eosinophils (%) (Auto) 6.3 % Basophils (%) (Auto) 1.2 % Neutrophils # (Auto) 5.3 TH/MM3 Lymphocytes # (Auto) 3.6 TH/MM3 Monocytes # (Auto) 0.7 TH/MM3 Eosinophils # (Auto) 0.7 TH/MM3 Basophils # (Auto) 0.1 TH/MM3 CBC Comment DIFF FINAL Differential Comment Laboratory Tests Test 12/08/17 11:11 12/09/17 09:48 Blood Urea Nitrogen 14 MG/DL 16 MG/DL Creatinine 1.16 MG/DL 1.34 MG/DL Random Glucose 178 MG/DL 188 MG/DL Calcium Level 9.1 MG/DL 8.8 MG/DL Sodium Level 133 MEQ/L 134 MEQ/L Potassium Level 3.2 MEQ/L 3.2 MEQ/L Chloride Level 97 MEQ/L 100 MEQ/L Carbon Dioxide Level 22.0 MEQ/L 23.2 MEQ/L Anion Gap 14 MEQ/L 11 MEQ/L Estimat Glomerular Filtration Rate 57 ML/MIN 48 ML/MIN IMAGING: Retroperitoneal Abscess Drainage 12/05/17 0000 Signed Impressions: Service Date/Time: Tuesday, December 05, 2017 14:08 - CONCLUSION: Uncomplicated CT guided drainage of a right renal abscess. Aman Loza MD Abdomen/Pelvis CT 11/29/17 0000 Signed Impressions: Service Date/Time: Wednesday, November 29, 2017 14:41 - CONCLUSION: There is slight increase in size of the gas and fluid collection in the right kidney which has the appearance of an abscess and amenable to percutaneous guided drainage. There is however overall better enhancement of the right kidney since the prior study probably improvement in pyelonephritis. Laura Echeverria MD Renal Ultrasound 11/28/17 0000 Signed Impressions: Service Date/Time: Tuesday, November 28, 2017 16:52 - CONCLUSION: No appreciable change in fluid gas collection within the right kidney probably an abscess in the appropriate clinical setting. Laura Echeverria MD PHYSICAL EXAMINATION GENERAL: No acute distress. Awake and alert and oriented. HEENT: No icterus. Oropharynx moist mucosa without lesions. NECK: Supple without adenopathy. LUNGS: Clear to auscultation. CARDIOVASCULAR: Regular S1S2 without murmurs, rubs or gallops. ABDOMEN: Bowel sounds present, soft, Non tender. EXTREMITIES: No clubbing or cyanosis or edema. SKIN: No rash. NEUROLOGIC: No gross focal findings. PSYCHIATRIC: Calm and cooperative. IMPRESSION Recurrent urinary tract infection due to Pseudomonas. resistant to Levaquin. R kidney abscess. Drainage catheter placed 12/05. RECOMMENDATION: Continue Zosyn IV x 1 more week. Patient can be given antibiotic outpatient. Midline ordered. IV antibiotics written on infusion form. Nikita Griffin MD Dec 09, 2017 15:45
[2017-12-09 18:00] VITALS: BP 116/56; PULSE 68; RESP 18; TEMP 98.5; O2SAT 95
[2017-12-09 20:00] VITALS: BP 133/63; PULSE 66; RESP 20; TEMP 98.4; O2SAT 95
[2017-12-10] VITALS: BP 129/71; PULSE 71; RESP 20; TEMP 98.5; O2SAT 96
[2017-12-10] MEDS: ACETAMINOPHEN/HYDROcodone 325 MG/10 MG TAB PO PRN ×3 (03:01→11:36)
[2017-12-10] MEDS: PIPERACIL-TAZO 3.375 GM PREMIX 50 ML IV SCH ×2 (03:01→10:21)
[2017-12-10 04:00] VITALS: BP 128/68; PULSE 64; RESP 21; TEMP 97.9; O2SAT 98
[2017-12-10] MEDS ORDERED: HYDR-3583 PO (07:10)
[2017-12-10] MEDS ORDERED: CARV12.5 PO (07:10)
[2017-12-10] MEDS ORDERED: POTA20TA5 PO (07:10)
[2017-12-10] MEDS ORDERED: LISI40TA PO (07:10)
[2017-12-10] MEDS ORDERED: HYDR25TA5 PO (07:10)
[2017-12-10 08:00] VITALS: BP 174/80; PULSE 75; RESP 20; TEMP 98.6; O2SAT 93
[2017-12-10] MEDS: INSULIN ASPART SUPPLEMENTAL SCALE SQ SCH (08:00)
[2017-12-10] MEDS: LISINOPRIL 20 MG TAB PO SCH (08:37)
[2017-12-10] MEDS: CARVEDILOL 12.5 MG TAB PO SCH (08:37)
[2017-12-10] MEDS: GEMFIBROZIL 600 MG TAB PO SCH (08:37)
[2017-12-10] MEDS: ASPIRIN EC 325 MG TABEC PO SCH (08:37)
[2017-12-10] MEDS: FERROUS SULFATE 325 MG (65 MG ELEMENTAL IRON) TAB PO SCH (08:38)
[2017-12-10] MEDS: POTASSIUM CHLORIDE 20 MEQ CONTROLLED RELEASE TAB PO SCH (08:38)
[2017-12-10] MEDS: PRAVASTATIN SOD 10 MG TAB PO SCH (08:38)
[2017-12-10] MEDS: DOCUSATE SODIUM 50 MG/SENNA 8.6 MG TAB PO SCH (08:38)
[2017-12-10] MEDS: MULTIVITAMIN TAB PO SCH (08:38)
[2017-12-10] MEDS: PANTOPRAZOLE SOD 40 MG DELAYED RELEASE TAB PO SCH (08:38)
[2017-12-10] MEDS: HYDROCHLOROTHIAZIDE 25 MG TAB PO SCH (08:38)
[2017-12-10] MEDS: SODIUM CHLORIDE 0.9% FLUSH 10 ML FLUSH IV FLUSH SCH (08:39)
[2017-12-10] MEDS: SODIUM CHLORIDE 0.9% 10 ML VIAL IRRIGATION SCH (08:39)
--- NOTE | 2017-12-10 09:12 | HHI.FPPN ---
Subjective Remarks No acute events overnight. Vital signs unremarkable. Blood pressure much improved today. Patient will intermittently become lightheaded but will move slowly as she is aware that both blood pressure medication and pain medication causes theses effects. She is otherwise stable and has no acute concerns today. She feels good and is ready to be [facility]. Objective Vitals Vital Signs Date Time Temp Pulse Resp B/P (MAP) Pulse Ox O2 Delivery O2 Flow Rate FiO2 12/10/17 04:00 97.9 64 21 128/68 (88) 98 12/10/17 00:00 98.5 71 20 129/71 (90) 96 12/09/17 20:00 98.4 66 20 133/63 (86) 95 12/09/17 20:00 Room Air 12/09/17 18:00 98.5 68 18 116/56 (76) 95 12/09/17 12:00 98.7 66 17 159/68 (98) 93 I/O 12/09/17 12/09/17 12/09/17 12/10/17 12/10/17 12/10/17 07:00 15:00 23:00 07:00 15:00 23:00 Intake Total 1530 ml 2400 ml 400 ml Output Total 750 ml 30 ml 1260 ml Balance 780 ml 2370 ml -860 ml Intake Oral 480 ml 2400 ml 400 ml IV Total 1050 ml Output Urine Total 750 ml 1250 ml Drainage Total 30 ml 10 ml # Voids 5 # Bowel Movements 1 2 0 Result Diagram: 12/08/17 1111 12/09/17 0948 Objective Remarks GEN: Well-developed, well-nourished patient. No acute distress. SKIN: Drainage site looks clean and dry. No signs of infection. CV: Regular rate and rhythm without obvious murmurs LUNGS: Clear to auscultation bilaterally. Normal respiratory effort. No wheezes , rales, rhonchi. GI: non distended EXT: No edema. No calf tenderness. NEURO/PSYCH: Awake, alert. Appropriate insight and judgment. Normal speech A/P Assessment and Plan 67 y/o female with history of hypertension, diabetes, multiple drug-resistant UTIs in the past presents with UTI that failed outpatient therapy with Keflex. Found to have persistent right renal abscess, pseudomonas UTI. Discharge Planning [facility] for [facility] [address] Salter Problem List: (1) Renal abscess, right ICD Codes: N15.1 - Renal and perinephric abscess Status: Acute Plan: Prior hx of right emphysematous pyelonephritis and abscess. Initial CT abdomen shows increase in size of gas and fluid collection on the right with appearance of an abscess. -s/p abscess drainage by IR 12/05/17 -Cultures negative x3days -decreasing drainage output Urology consulted: * Follow up as outpatient for removal * antibiotics per ID * Spoke with Dr. Ramirez and updated him about repeat imaging result. Recommended follow up in 2 weeks. ID consulted: appreciate recommendations * continue Zosyn x1 week. is aware that urology follow up is within 2 weeks. * PICC line placed/ordered * close follow up of renal function Imaging: * Renal US: no appreciable change in fluid gas collection within the right kidney, probably an abscess * Repeat renal ultrasound 12/08/17: echogenic area in the righ mid kindey consistent with patient's known abscess. Recommend CT for better assessment * repeat Abdominal CT s/p drain ordered: Per discussion with radiologist. Catheter is in the lateral aspect of the collection. There appears to be a more loculated aspect of the abscess that is deeper. Do not believe repositioning of the current drain will help with this loculated area. Possibility of placing another drain was considered however it is small which may not accommodate this drain. Would recommend watching and waiting as long as patient is clinically stable. There is also the consideration of TPA but this is not ideal in solid organs. Medications: * Zosyn (11/27- (2) Hypertension Status: Chronic Plan: Elevated blood pressures, difficult to control but patient remains asymptomatic. BP has begun to improve - Lisinopril 40 mg daily - Amlodipine 10 mg daily - HCTZ 25mg daily - Coreg 12.5MG daily - Vasotec PRN (3) UTI (urinary tract infection) ICD Codes: N39.0 - Urinary tract infection, site not specified Status: Resolved Plan: 11/26/17 Urine culture with pseudomonas. Resistant to quinolones. Repeat urine culture negative from 11/29/17 -Hx of recurrent UTIs, may benefit from PPX abx (4) Anemia ICD Codes: D64.9 - Anemia, unspecified Status: Chronic Plan: History of iron deficiency anemia. - Continue home Iron (5) DELLA (acute kidney injury) ICD Codes: N17.9 - Acute kidney failure, unspecified Status: Acute Plan: Creatinine of 1.23 on admission. Elevated during last admission. Increased acutely after receiving contrast agent. Trending back down and stable - Avoid nephrotoxic agents as much as possible - DC fluids as pt has good PO intake to continue renal improvement. - Follow renal function (6) Diabetes mellitus ICD Codes: E11.9 - Type 2 diabetes mellitus without complications Status: Chronic Plan: Diabetes with long-term insulin use and gastroparesis per clinic notes - Hold home insulin - Low dose sliding scale while inpatient - Regular accuchecks (7) FEN Status: Acute Plan: Fluids: PO fluids Electrolytes: Hypokalemia. daily KCL 20meq Nutrition: Diabetic diet DVT ppx: Lovenox and Aspirin GI PPX: continued home omeprazole Problem Qualifiers (1) UTI (urinary tract infection): Qualified Codes: N30.00 - Acute cystitis without hematuria (2) Anemia: Qualified Codes: D50.9 - Iron deficiency anemia, unspecified Fani Sosa MD, [facility] Dec 10, 2017 09:12
[2017-12-10 10:50] VITALS: O2SAT 98
--- NOTE | 2017-12-10 11:12 | HHI.DS ---
Discharge Summary Admission Date Nov 28, 2017 at 09:22 Discharge Date: Dec 10, 2017 Admitting Diagnosis uti, failed outpatient abx, dm, htn, acute kidney injury, anemia (1) Renal abscess, right Diagnosis: Principal Plan: Prior hx of right emphysematous pyelonephritis and abscess. Initial CT abdomen shows increase in size of gas and fluid collection on the right with appearance of an abscess. -s/p abscess drainage by IR 12/05/17 -Cultures negative x3days -decreasing drainage output Urology consulted: * Follow up as outpatient for removal * antibiotics per ID * Spoke with Dr. Ramirez and updated him about repeat imaging result. Recommended follow up in 2 weeks. ID consulted: appreciate recommendations * continue Zosyn x1 week. is aware that urology follow up is within 2 weeks. * PICC line placed/ordered * close follow up of renal function Imaging: * Renal US: no appreciable change in fluid gas collection within the right kidney, probably an abscess * Repeat renal ultrasound 12/08/17: echogenic area in the righ mid kindey consistent with patient's known abscess. Recommend CT for better assessment * repeat Abdominal CT s/p drain ordered: Per discussion with radiologist. Catheter is in the lateral aspect of the collection. There appears to be a more loculated aspect of the abscess that is deeper. Do not believe repositioning of the current drain will help with this loculated area. Possibility of placing another drain was considered however it is small which may not accommodate this drain. Would recommend watching and waiting as long as patient is clinically stable. There is also the consideration of TPA but this is not ideal in solid organs. Medications: * Zosyn (11/27- ICD Codes: N15.1 - Renal and perinephric abscess Status: Acute (2) Hypertension Plan: Elevated blood pressures, difficult to control but patient remains asymptomatic. BP has begun to improve - Lisinopril 40 mg daily - Amlodipine 10 mg daily - HCTZ 25mg daily - Coreg 12.5MG daily - Vasotec PRN Status: Chronic (3) UTI (urinary tract infection) Plan: 11/26/17 Urine culture with pseudomonas. Resistant to quinolones. Repeat urine culture negative from 11/29/17 -Hx of recurrent UTIs, may benefit from PPX abx ICD Codes: N39.0 - Urinary tract infection, site not specified Status: Resolved (4) Anemia Plan: History of iron deficiency anemia. - Continue home Iron ICD Codes: D64.9 - Anemia, unspecified Status: Chronic (5) DELLA (acute kidney injury) Plan: Creatinine of 1.23 on admission. Elevated during last admission. Increased acutely after receiving contrast agent. Trending back down and stable - Avoid nephrotoxic agents as much as possible - DC fluids as pt has good PO intake to continue renal improvement. - Follow renal function ICD Codes: N17.9 - Acute kidney failure, unspecified Status: Acute (6) Diabetes mellitus Plan: Diabetes with long-term insulin use and gastroparesis per clinic notes - Hold home insulin - Low dose sliding scale while inpatient - Regular accuchecks ICD Codes: E11.9 - Type 2 diabetes mellitus without complications Status: Chronic (7) FEN Plan: Fluids: PO fluids Electrolytes: Hypokalemia. daily KCL 20meq Nutrition: Diabetic diet DVT ppx: Lovenox and Aspirin GI PPX: continued home omeprazole Status: Acute Consultants Infectious disease Urology Procedures Interventional radiology placed drain for right renal abscess on 12/05/2017 Brief History 67-year-old female with history of hypertension, diabetes, previous strokes presents with dysuria. Patient states that dysuria and urinary frequency started on [place] earlier this week. At that time, she presented to the emergency department and was diagnosed with a UTI and started on Keflex. He states that initially her symptoms improved, however she increased the frequency of taking the Keflex up to 4 times a day, although prescribed twice daily. Otherwise, she denies any other symptoms. No hematuria. No fever/chills, nausea/vomiting, chest pain, shortness of breath. No back pain. Does have some lower abdominal pain. Of note, she was recently discharged due to sepsis and pyelonephritis. She is status post nephrostomy in the past. Her last UTI was due to Pseudomonas, and was resistant to several medications. At last hospitalization, she was started on Zosyn for the UTI. CBC/BMP: 12/08/17 1111 12/09/17 0948 Significant Findings Laboratory Tests Test 12/08/17 11:11 12/09/17 09:48 Red Blood Count 3.14 MIL/MM3 (4.00-5.30) Hemoglobin 9.0 GM/DL (11.6-15.3) Hematocrit 27.3 % (35.0-46.0) Red Cell Distribution Width 17.9 % (11.6-17.2) Platelet Count 663 TH/MM3 (150-450) Mean Platelet Volume 6.9 FL (7.0-11.0) Eosinophils (%) (Auto) 6.3 % (0.0-4.0) Eosinophils # (Auto) 0.7 TH/MM3 (0-0.4) Creatinine 1.16 MG/DL (0.50-1.00) 1.34 MG/DL (0.50-1.00) Random Glucose 178 MG/DL (74-106) 188 MG/DL (74-106) Sodium Level 133 MEQ/L (136-145) 134 MEQ/L (136-145) Potassium Level 3.2 MEQ/L (3.5-5.1) 3.2 MEQ/L (3.5-5.1) Chloride Level 97 MEQ/L (98-107) Estimat Glomerular Filtration Rate 57 ML/MIN (>89) 48 ML/MIN (>89) Imaging Last Impressions Renal Ultrasound 12/08/17 0000 Signed Impressions: Service Date/Time: November 10:13 - CONCLUSION: 1. Echogenic area in the right mid kidney consistent with patient's known abscess. It is difficult to compare the abscess size accurately. CT scan is much better for assessment/size of abscess. 2. No definite hydronephrosis. Carlos Triplett MD Abdomen/Pelvis CT 12/08/17 0000 Signed Impressions: Service Date/Time: November 14:57 - CONCLUSION: 1. Large bore Aromas loop catheter in the presumed parenchymal/perinephric abscess of the right kidney is in the far lateral aspect of the collection. There is still some air density more medially. I have scheduled the patient for manipulation and repositioning of the drain. 2. Double-J stent remains stable in position. 3. Dense calcification of the mitral valve annulus. Rony Sarabia MD Retroperitoneal Abscess Drainage 12/05/17 0000 Signed Impressions: Service Date/Time: Tuesday, December 05, 2017 14:08 - CONCLUSION: Uncomplicated CT guided drainage of a right renal abscess. Aman Loza MD PE at Discharge GEN: Well-developed, well-nourished patient. No acute distress. SKIN: Drainage site looks clean and dry. No signs of infection. CV: Regular rate and rhythm without obvious murmurs LUNGS: Clear to auscultation bilaterally. Normal respiratory effort. No wheezes , rales, rhonchi. GI: non distended EXT: No edema. No calf tenderness. NEURO/PSYCH: Awake, alert. Appropriate insight and judgment. Normal speech Hospital Course 67 year old female presented on 11/26 with a UTI that failed outpatient treatment with Keflex. Urine culture showed pseudomonas. Repeat urine culture was negative. She was recently admitted with emphysematous pyelonephritis and right renal abscess which was drained. Unfortunately, she had a 7 cm renal abscess that had reformed. Abscess was drained by IR on 12/05/2017. Repeat Abdominal CT and US showed continued presence of abscess. Drain will need to be in placed until followed up with urology for removal. Pt will also require continued treatment with Zosyn for one additional week after discharge prior to removal of drain. Of note, patient did developed DELLA after receiving contrast agent, but her renal function improved with IV fluids. BP was also found to be elevated which required medication adjustments but with appropriate response. Patient will be discharged in stable condition to SNF x1 week to complete abx. Pt Condition on Discharge: Stable Discharge Disposition: Discharge to SNF Discharge Instructions DIET: Follow Instructions for: Diabetic Diet Activities you can perform: Regular-No Restrictions Follow up Referrals: PCP Follow-up - 1 Week with Wade Desai MD, [facility] Urology - 2 Weeks with Shahram Ramirez MD New Orders: BASIC METABOLIC PROF - 2-3 Days BASIC METABOLIC PROF - 1 Week New Medications: Lisinopril (Lisinopril) 40 Mg Tab 40 MG PO DAILY for Blood Pressure Management, #30 TAB 0 Refills Carvedilol (Coreg) 12.5 Mg Tab 12.5 MG PO Q12HR, #60 TAB Hydrochlorothiazide (Hydrochlorothiazide) 25 Mg Tab 25 MG PO DAILY, #30 TAB Hydrocodone/Acetaminophen (Hydrocodone-Acetamin 10-325 mg) 10 Mg-325 Mg Tablet 1 TAB PO Q4H PRN for pain, #60 TAB Potassium Chloride Microencaps (Potassium Chloride Microencaps) 20 Meq Tab 20 MEQ PO DAILY, #30 TAB Continued Medications: Amlodipine (Amlodipine) 10 Mg Tab 10 MG PO DAILY for Blood Pressure Management, #60 TAB [address] (Aspirin EC) 325 Mg Tabdr 325 MG PO DAILY, #30 TAB Ferrous Sulfate (Ferosul) 325 Mg (65 Mg Iron) Tablet 325 MG PO BID, #60 Gemfibrozil (Lopid) 600 Mg Tab 300 MG PO DAILY, #30 TAB Take 30 minutes prior to meal Insulin Aspart Inj (Novolog Inj) 100 Unit/Ml Inj 1 UNIT SQ ACHS SLIDING SCALE, #1 INJECTION Ipratropium-Albuterol Neb (Duoneb) 0.5-2.5 Mg/3 Ml Neb 3 ML NEB BID for Breathing Treatment, #30 NEBULE 0 Refills Multivitamin with Folic Acid (Thera Tablet) 400 Mcg Tablet 1 TAB PO DAILY, #30 TAB Pantoprazole (Pantoprazole) 40 Mg Tab 40 MG PO DAILY, #30 TAB Pravastatin (Pravastatin) 10 Mg Tab 10 MG PO DAILY for Cholesterol Management, #30 TAB 0 Refills Sennosides-Docusate Sodium (Gnp Senna Plus 8.6-50 mg) 8.6 Mg-50 Mg Tab 1 TAB PO BID, #60 TAB Discontinued Medications: Acetaminophen (Eq Acetaminophen) 325 Mg Tab 650 MG PO BID, #30 TAB Cephalexin (Keflex) 500 Mg Cap 500 MG PO Q12H for Infection for 7 Days, #14 CAP 0 Refills Erythromycin Base (Erythromycin Base) 250 Mg Tab 250 MG PO BID for Gastroparesis, #60 TAB 0 Refills Insulin Detemir Inj (Levemir Inj) 1,000 unit/ 10 ML Vial 10 UNITS SQ HS, #1 INJECTION Do not mix with any other Insulin. Lisinopril (Lisinopril) 20 Mg Tab 20 MG PO DAILY, #30 TAB Mupirocin Nasal Oint (Bactroban Nasal Oint) 2% Oint 1 APPLIC EACH NARE BID, #1 TUBE Single-use tubes. Ondansetron Odt (Zofran Odt) 4 Mg Tab 4 MG SL Q8HR PRN for Nausea/Vomiting, #20 TAB 0 Refills Oxycodone (Oxycodone) 5 Mg Tab 5 MG PO Q6H PRN for PAIN SCALE 6 TO 10, #7 TAB Fani Sosa MD, [facility] Dec 10, 2017 11:12
[2017-12-10] MEDS: ENOXAPARIN SODIUM 40 MG/0.4 ML SYRINGE SQ SCH (11:38)
== END 2017-12-10 13:00 | DRG 690 ==
LOC: NEPC 06:05 → NEDA 10:31 → NEPGCP 13:27 → OBSVTOIN 11-28 09:22 → N04A 11-28 10:43 → N04B 12-06 23:40 → UNDODISIN 12-10 13:03
PROVIDERS: ADMIT Family Medicine; ATTEND Family Medicine
PROC: 0T903ZX Drainage of Right Kidney, Percutaneous Approach, Diagnostic (ICD-10-PCS; principal; 2017-12-05)
DX: N15.1 Renal and perinephric abscess (principal); N17.9 Acute kidney failure, unspecified; N39.0 Urinary tract infection, site not specified; B37.3 Candidiasis of vulva and vagina; K31.84 Gastroparesis; I11.0 Hypertensive heart disease with heart failure; E11.43 Type 2 diabetes mellitus with diabetic autonomic (poly)neuropathy; I50.9 Heart failure, unspecified; N32.89 Other specified disorders of bladder; B96.5 Pseudomonas (aeruginosa) (mallei) (pseudomallei) as the cause of diseases classified elsewhere; D50.9 Iron deficiency anemia, unspecified; E87.6 Hypokalemia; Z86.73 Personal history of transient ischemic attack (TIA), and cerebral infarction without residual deficits; Z87.440 Personal history of urinary (tract) infections; Z79.4 Long term (current) use of insulin; E78.5 Hyperlipidemia, unspecified; Z82.49 Family history of ischemic heart disease and other diseases of the circulatory system; Z83.3 Family history of diabetes mellitus; Z80.9 Family history of malignant neoplasm, unspecified
CPT/HCPCS: 36569; 49406; 74176; 74177; 76775; 76937; 80048; 81001; 82948; 85025; 85027; 85610; 87015; 87040; 87070; 87077; 87086; 87102; 87116; 87186; 87205; 87206; 96361; 96365; 96372; 96375; C1729; C1769; G0378; J0360; J0696; J1650; J1815; J2250; J2543; J3010; J7030; J7040; Q9967

== ENCOUNTER 2018-02-01 08:17 | Inpatient (IN) | payer MEDICARE ==
[~2018-02-01] VITALS: Ht 157.5 cm; Wt 67.9 kg
[~2018-02-01 08:17] MED LIST changes: -ACET325T15 PO; -BACTOIN EACH NARE; +CARV12.5 PO; -ERYT250T13 PO; +GABA100C4 PO; +HYDR-3583 PO; +HYDR25TA5 PO; -LEVEMIR SQ; -LISI-515 PO; -OXYC-392 PO; +POTA20TA5 PO; -ZOFR4TAB3 SL
[2018-02-01] MEDS ORDERED: SODIUM CHLORIDE 0.9% FLUSH 10 ML FLUSH IVF PRN (08:30)
[2018-02-01] MEDS ORDERED: SODIUM CHLORID 0.9% 500 ML INJ 500 ML IV ONE (08:30)
[2018-02-01 08:34] VITALS: BP 175/85; PULSE 72; RESP 17; TEMP 97.5; O2SAT 99
--- NOTE | 2018-02-01 08:42 | PD ---
HPI Chief Complaint: General Weakness Time Seen by Provider: 08:30 Travel History International Travel<30 days: No Contact w/Intl Traveler<30days: No Traveled to known affect area: No History of Present Illness HPI Patient is a 67-year-old female presents emergency department for evaluation of generalized weakness worsening over the past 6 hours but really she has been increasingly weak over the past week. She denies any pain denies any chest pain abdominal pain nausea vomiting constipation. She does state that she soiled herself yesterday because she could not get out of bed and walk to the bathroom. Per EMS the patient when they stood her out of bed her legs became weak bilaterally and she tried to lower herself to the ground but they instead lowered her to the stretcher. She denies any fevers. She states this never happened to her before. PFSH Past Medical History Arthritis: No Asthma: No Autoimmune Disease: No Blood Disorders: No Anxiety: No Depression: No Heart Rhythm Problems: Yes (PT STATES, "THEY SAID SOMETIMES MY HEART FLUTTERS") Cancer: No Cardiovascular Problems: Yes High Cholesterol: Yes Chemotherapy: No Chest Pain: Yes Congestive Heart Failure: Yes COPD: No Cerebrovascular Accident: No Diabetes: Yes (TYPE 2) Diminished Hearing: No Endocrine: Yes Gastrointestinal Disorders: Yes GERD: No Genitourinary: Yes (RIGHT NEPHROSTOMY, RECURRENT/COMPLICATED UTIs) Headaches: Yes Hiatal Hernia: No Heparin Induced Thrombocytopen: No Hypertension: Yes Immune Disorder: No Implanted Vascular Access Dvce: No Kidney Stones: No Musculoskeletal: No Neurologic: No Psychiatric: No Reproductive: Yes ( 1990) Respiratory: No Immunizations Current: No Migraines: No Radiation Therapy: No Renal Failure: No Seizures: No Sickle Cell Disease: No Sleep Apnea: No Thyroid Disease: No Ulcer: No Menopausal: Yes Past Surgical History Abdominal Surgery: No AICD: No Arteriovenous Shunt: No Cardiac Surgery: No Section: Yes Ear Surgery: No Endocrine Surgery: No Eye Surgery: No Genitourinary Surgery: Yes (STENT RIGHT KIDNEY) Gynecologic Surgery: Yes ( 1990) Insulin Pump: No Joint Replacement: No Neurologic Surgery: No Oral Surgery: No Pacemaker: No Thoracic Surgery: No Other Surgery: Yes (CSECT) Social History Alcohol Use: No Tobacco Use: No Substance Use: No Allergies-Medications (Allergen,Severity, Reaction): Coded Allergies: metformin (Verified Allergy, Severe, Numbness, 12/22/17) clonidine (Verified Allergy, Unknown, 12/22/17) chest pain Reported Meds & Prescriptions Reported Meds & Active Scripts Active Nebulizer 1 Mis Mis Ea .ROUTE DIRECTED for use with DuoNeb Duoneb (Ipratropium-Albuterol Neb) 0.5-2.5 Mg/3 Ml Neb 3 Ml NEB BID Gabapentin 100 Mg Cap 100 Mg PO HS Hydrochlorothiazide 25 Mg Tab 25 Mg PO DAILY Potassium Chloride Microencaps 20 Meq Tab 20 Meq PO DAILY Coreg (Carvedilol) 12.5 Mg Tab 12.5 Mg PO Q12HR Hydrocodone-Acetamin 10-325 mg (Hydrocodone/Acetaminophen) 10 Mg-325 Mg Tablet 1 Tab PO Q4H PRN Pantoprazole (Pantoprazole Sodium) 40 Mg Tab 40 Mg PO DAILY Pravastatin 10 Mg Tab 10 Mg PO DAILY Thera Tablet (Multivitamin with Folic Acid) 400 Mcg Tablet 1 Tab PO DAILY Novolog Inj (Insulin Aspart) 100 Unit/Ml Inj 1 Unit SQ ACHS SLIDING SCALE Gnp Senna Plus 8.6-50 mg (Sennosides-Docusate Sodium) 8.6 Mg-50 Mg Tab 1 Tab PO BID Aspirin EC (Aspirin) 325 Mg Tabdr 325 Mg PO DAILY Lopid (Gemfibrozil) 600 Mg Tab 300 Mg PO DAILY Take 30 minutes prior to meal Ferosul (Ferrous Sulfate) 325 Mg (65 Mg Iron) Tablet 325 Mg PO BID Amlodipine (Amlodipine Besylate) 10 Mg Tab 10 Mg PO DAILY Review of Systems Except as stated in HPI: all other systems reviewed are Neg Physical Exam Narrative GENERAL: Well-developed, well-nourished, no obvious distress. SKIN: Focused skin assessment warm/dry. HEAD: Atraumatic. Normocephalic. EYES: Pupils equal and round. No scleral icterus. No injection or drainage. ENT: No nasal bleeding or discharge. Mucous membranes pink and dry.. NECK: Trachea midline. No JVD. CARDIOVASCULAR: Regular rate and rhythm. No murmur appreciated. RESPIRATORY: No accessory muscle use. Clear to auscultation. Breath sounds equal bilaterally. GASTROINTESTINAL: Abdomen soft, non-tender, nondistended. Hepatic and splenic margins not palpable. MUSCULOSKELETAL: No obvious deformities. No clubbing. No cyanosis. No edema. NEUROLOGICAL: Awake and alert. Cranial nerves II through XII are grossly intact and nonfocal, 5 out of 5 strength in all 4 extremities. PSYCHIATRIC: Appropriate mood and affect; insight and judgment normal. Data Data Last Documented VS Vital Signs Date Time Temp Pulse Resp B/P (MAP) Pulse Ox O2 Delivery O2 Flow Rate FiO2 02/01/18 13:44 75 17 156/65 (95) 96 Room Air 02/01/18 08:34 97.5 Orders Orders Electrocardiogram (02/01/18 08:30) Ckmb (Isoenzyme) Profile (02/01/18 08:30) Complete Blood Count With Diff (02/01/18 08:30) Comprehensive Metabolic Panel (02/01/18 08:30) Magnesium (Mg) (02/01/18 08:30) Prothrombin Time / Inr (Pt) (02/01/18 08:30) Act Partial Throm Time (Ptt) (02/01/18 08:30) Troponin I (02/01/18 08:30) Chest, Single Ap (02/01/18 08:30) Ecg Monitoring (02/01/18 08:30) Iv Access Insert/Monitor (02/01/18 08:30) Oximetry (02/01/18 08:30) Oxygen Administration (02/01/18 08:30) Sodium Chloride 0.9% Flush (Ns Flush) (02/01/18 08:30) Sodium Chlorid 0.9% 500 Ml Inj (Ns 500 M (02/01/18 08:30) Urinalysis - C+S If Indicated (02/01/18 08:30) Sodium Chlor 0.9% 1000 Ml Inj (Ns 1000 M (02/01/18 10:30) B-Type Natriuretic Peptide (02/01/18 11:49) C Diff Toxin Pcr (02/01/18 11:49) Cath For Specimen (02/01/18 11:50) Troponin I (02/01/18 12:35) Admit Order (Ed Use Only) (02/01/18 ) Labs Laboratory Tests Test 02/01/18 09:39 02/01/18 12:13 White Blood Count 8.4 TH/MM3 Red Blood Count 4.08 MIL/MM3 Hemoglobin 12.4 GM/DL Hematocrit 35.7 % Mean Corpuscular Volume 87.5 FL Mean Corpuscular Hemoglobin 30.4 PG Mean Corpuscular Hemoglobin Concent 34.7 % Red Cell Distribution Width 14.7 % Platelet Count 439 TH/MM3 Mean Platelet Volume 6.8 FL Neutrophils (%) (Auto) 39.4 % Lymphocytes (%) (Auto) 44.1 % Monocytes (%) (Auto) 5.5 % Eosinophils (%) (Auto) 10.0 % Basophils (%) (Auto) 1.0 % Neutrophils # (Auto) 3.3 TH/MM3 Lymphocytes # (Auto) 3.7 TH/MM3 Monocytes # (Auto) 0.5 TH/MM3 Eosinophils # (Auto) 0.8 TH/MM3 Basophils # (Auto) 0.1 TH/MM3 CBC Comment DIFF FINAL Differential Comment Prothrombin Time 10.5 SEC Prothromb Time International Ratio 1.0 RATIO Activated Partial Thromboplast Time 24.0 SEC Blood Urea Nitrogen 81 MG/DL Creatinine 2.25 MG/DL Random Glucose 233 MG/DL Total Protein 8.5 GM/DL Albumin 3.3 GM/DL Calcium Level 10.8 MG/DL Magnesium Level 2.5 MG/DL Alkaline Phosphatase 77 U/L Aspartate Amino Transf (AST/SGOT) 13 U/L Alanine Aminotransferase (ALT/SGPT) 17 U/L Total Bilirubin 0.2 MG/DL Sodium Level 142 MEQ/L Potassium Level 3.7 MEQ/L Chloride Level 116 MEQ/L Carbon Dioxide Level 14.2 MEQ/L Anion Gap 12 MEQ/L Estimat Glomerular Filtration Rate 26 ML/MIN Total Creatine Kinase 21 U/L Troponin I 0.06 NG/ML B-Type Natriuretic Peptide 29 PG/ML Urine Color LIGHT-YELLOW Urine Turbidity CLEAR Urine pH 6.0 Urine Specific Cooter 1.017 Urine Protein 100 mg/dL Urine Glucose (UA) NEG mg/dL Urine Ketones NEG mg/dL Urine Occult Blood TRACE Urine Nitrite NEG Urine Bilirubin NEG Urine Urobilinogen LESS THAN 2.0 MG/DL Urine Leukocyte Esterase SMALL Urine RBC 1 /hpf Urine WBC 4 /hpf Urine Squamous Epithelial Cells <1 /hpf Urine Amorphous Sediment FEW Urine Bacteria OCC /hpf Urine Hyaline Casts 1 /lpf Microscopic Urinalysis Comment CULT NOT INDICATED MDM Medical Decision Making Medical Screen Exam Complete: Yes Emergency Medical Condition: Yes Differential Diagnosis Dehydration, acute kidney injury, failure to thrive, Narrative Course 67-year-old female room to the emergency department for generalized weakness found to have an acute kidney injury, troponin minimally elevated but she certainly has been higher in the past. EKG shows normal sinus rhythm normal axis normal R-wave progression and no concerning ST segment changes reviewed by me. Chest x-ray negative. Electrolytes within normal limits. The patient family arrives and states that the patient has had a general decline in health ever since she had a stroke a few months ago. They states she has not been eating or drinking very well and has been getting weaker and weaker, he states yesterday that they had to ambulate her to the bathroom and no one is home during the day to help her. I discussed with him the results and that I recommended at least observation status for monitoring of her kidneys and they are agreeable. The patient does meet full admission criteria based on her creatinine elevation. Patient was discussed with the residents for admission to . Diagnosis Primary Impression: DELLA (acute kidney injury) Admitting Information Admitting Physician Requests: Admit Condition: Stable Daniel Tapia MD Feb 01, 2018 08:42
[2018-02-01 09:38] VITALS: O2SAT 100
--- NOTE | 2018-02-01 09:47 | RADRPT ---
EXAM DATE/TIME: 02/01/2018 09:23 [place] COMPARISON: SMALL BOWEL SERIES DOUBLE CONTRAST, November 08, 2017, 12:54. INDICATIONS : Weakness, dizziness, nausea. MEDICAL HISTORY : None. SURGICAL HISTORY : None. ENCOUNTER: Initial ACUITY: 4 - 6 days PAIN SCORE: 0/10 LOCATION: Bilateral chest FINDINGS: A single view of the chest demonstrates the lungs to be symmetrically aerated without evidence of mas s, infiltrate or effusion. The cardiomediastinal contours are unremarkable. Osseous structures are intact. CONCLUSION: 1. No acute cardiopulmonary findings. Gerard Dorantes MD on February 01, 2018 at 9:45 Board Certified Radiologist. This report was verified electronically.
[2018-02-01 09:49] LABS: AUTOMATED NEUTROPHIL # 3.3 TH/MM3 (1.8-7.7); BASOPHIL # 0.1 TH/MM3 (0-0.2); EOSINOPHIL # 0.8 TH/MM3 (0-0.4); HEMATOCRIT 35.7 % (35.0-46.0); HEMOGLOBIN 12.4 GM/DL (11.6-15.3); LYMPH % 44.1 % (9.0-44.0); LYMPHOCYTE # 3.7 TH/MM3 (1.0-4.8); MEAN CELL VOLUME 87.5 FL (80.0-100.0); MEAN CORPUSCULAR HEMOGLOBIN 30.4 PG (27.0-34.0); MEAN CORPUSCULAR HGB CONC 34.7 % (32.0-36.0); MEAN PLATELET VOLUME 6.8 FL (7.0-11.0); MONO % 5.5 % (0.0-8.0); MONOCYTE # 0.5 TH/MM3 (0-0.9); NEUT % 39.4 % (16.0-70.0); PLATELET COUNT 439 TH/MM3 (150-450); RED BLOOD COUNT 4.08 MIL/MM3 (4.00-5.30); RED CELL DISTRIBUTION WIDTH 14.7 % (11.6-17.2); WHITE BLOOD COUNT 8.4 TH/MM3 (4.0-11.0)
[2018-02-01 09:57] LABS: PROTHROMBIN TIME - PATIENT 10.5 SEC (9.8-11.6)
[2018-02-01 10:15] LABS: ALBUMIN 3.3 GM/DL (3.4-5.0); AST (GOT) 13 U/L (15-37); BICARBONATE 14.2 MEQ/L (21.0-32.0); BLOOD UREA NITROGEN 81 MG/DL (7-18); CALCIUM 10.8 MG/DL (8.5-10.1); CHLORIDE 116 MEQ/L (98-107); CREATININE 2.25 MG/DL (0.50-1.00); GLOMERULAR FILTRATION RATE 26 ML/MIN (>89); GLUCOSE,RANDOM 233 MG/DL (74-106); MAGNESIUM 2.5 MG/DL (1.5-2.5); SODIUM (NA) 142 MEQ/L (136-145)
[2018-02-01 10:16] LABS: ALT (GPT) 17 U/L (10-53)
[2018-02-01 10:19] LABS: ALKALINE PHOSPHATASE 77 U/L (45-117); TOTAL BILIRUBIN ADULT 0.2 MG/DL (0.2-1.0); TOTAL PROTEIN 8.5 GM/DL (6.4-8.2); TROPONIN I 0.06 NG/ML (0.02-0.05)
[2018-02-01] MEDS ORDERED: SODIUM CHLOR 0.9% 1000 ML INJ 1,000 ML IV ONE (10:30)
[2018-02-01 13:03] LABS: AMORPHOUS SEDIMENT, URINE FEW; BACTERIA, URINE OCC /hpf; BILIRUBIN, URINE NEG (NEG); BLOOD, URINE TRACE (NEG); GLUCOSE,URINE NEG (NEG); HYALINE CAST, URINE 1 /lpf (RARE); KETONE, URINE NEG (NEG); NITRITE,URINE NEG (NEG); SQUAMOUS EPITHELIAL CELL URINE <1 /hpf (0-5); URINE COLOR LIGHT-YELLOW (YELLW/STRAW); URINE LEUKOCYTE ESTERASE SMALL (NEG)
--- NOTE | 2018-02-01 13:35 | EKG ---
Date Performed: 02/01/2018 Time Performed: 09:47:24 PTAGE: 67 years EKG: Sinus rhythm NORMAL ECG PREVIOUS TRACING : 11/01/2017 21.01 DOCTOR: Amrit Swan Interpretating Date/Time 02/01/2018 13:33:45
[2018-02-01 13:44] VITALS: BP 156/65; PULSE 75; RESP 17; O2SAT 96
[2018-02-01 14:00] VITALS: PULSE 63
--- NOTE | 2018-02-01 14:01 | HHI.HP ---
[facility] Service Family Medicine Primary Care Physician Wade Garcia , Susanna Desai MD Admission Diagnosis DELLA, Generalized weakness. Diagnoses: International Travel<30 Days: No Contact w/Intl Traveler<30days: No Known Affected Area: No History of Present Illness This is a 67-year-old female with poorly controlled diabetes with multiple previous complications who presents with weakness which has been increasing over the past month. However, over the past week her weakness has been getting much worse. Patient states that yesterday she could not get out of her chair to walk to the bathroom and she had a bowel movement and urinated on herself. She does live with her , but states that he has to work. She does complain of diabetic neuropathy in her legs which has been ongoing. We recently increased her gabapentin to 400 mg twice a day and she states this is helping. She denies abdominal pain, dysuria, fever, chest pain, shortness of breath. She has not yet been able to get an appointment with a rouge presser as an outpatient. At her last appointment, we had ordered continued physical therapy, but she has not yet been able to go to this. Patient states her appetite has been fair, although she states her daughter would likely say she has been eating and drinking less. Review of Systems Constitutional: DENIES: Fever, Chills Eyes: DENIES: Blurred vision, Diplopia Ears, nose, mouth, throat: DENIES: Tinnitus, Hearing loss, Vertigo Respiratory: DENIES: Apneas, Cough, Sputum production, Shortness of breath Cardiovascular: DENIES: Chest pain, Palpitations, Syncope Gastrointestinal: COMPLAINS OF: Constipation, DENIES: Abdominal pain, Black stools, Bloody stools, Diarrhea Neurologic: COMPLAINS OF: Abnormal gait, DENIES: Headache, Localized weakness, Paresthesias Psychiatric: DENIES: Anxiety, Confusion Past Family Social History Past Medical History DM-poorly controlled, noncompliant HTN HLD Pyelonephritis Gastroparesis Frequent UTI (multi-bug resistant UTI, pseudomonas) Anemia CHF Patent foramen ovale Past Surgical History C sec (1990) Renal abscess Reported Medications Reported Meds & Active Scripts Active Nebulizer 1 Mis Mis Ea .ROUTE DIRECTED for use with DuoNeb Duoneb (Ipratropium-Albuterol Neb) 0.5-2.5 Mg/3 Ml Neb 3 Ml NEB BID Gabapentin 100 Mg Cap 100 Mg PO HS Keflex (Cephalexin) 500 Mg Cap 500 Mg PO Q12H Hydrochlorothiazide 25 Mg Tab 25 Mg PO DAILY Potassium Chloride Microencaps 20 Meq Tab 20 Meq PO DAILY Coreg (Carvedilol) 12.5 Mg Tab 12.5 Mg PO Q12HR Hydrocodone-Acetamin 10-325 mg (Hydrocodone/Acetaminophen) 10 Mg-325 Mg Tablet 1 Tab PO Q4H PRN Pantoprazole (Pantoprazole Sodium) 40 Mg Tab 40 Mg PO DAILY Pravastatin 10 Mg Tab 10 Mg PO DAILY Thera Tablet (Multivitamin with Folic Acid) 400 Mcg Tablet 1 Tab PO DAILY Novolog Inj (Insulin Aspart) 100 Unit/Ml Inj 1 Unit SQ ACHS SLIDING SCALE Gnp Senna Plus 8.6-50 mg (Sennosides-Docusate Sodium) 8.6 Mg-50 Mg Tab 1 Tab PO BID Aspirin EC (Aspirin) 325 Mg Tabdr 325 Mg PO DAILY Lopid (Gemfibrozil) 600 Mg Tab 300 Mg PO DAILY Take 30 minutes prior to meal Ferosul (Ferrous Sulfate) 325 Mg (65 Mg Iron) Tablet 325 Mg PO BID Amlodipine (Amlodipine Besylate) 10 Mg Tab 10 Mg PO DAILY Allergies: Coded Allergies: metformin (Verified Allergy, Severe, Numbness, 12/22/17) clonidine (Verified Allergy, Unknown, 12/22/17) chest pain Active Ordered Medications Active Medications Sodium Chloride 500 ml @ 500 mls/hr ONCE ONCE IV Last administered on at 09:19; Admin Dose 500 MLS/HR; Start 02/01/18 at 08:30; Stop 02/01/18 at 09:29 ; Status DC Sodium Chloride 1,000 ml @ 999 mls/hr BOLUS ONCE IV Last administered on at 10:56; Admin Dose 999 MLS/HR; Start 02/01/18 at 10:30; Stop 02/01/18 at 11:30 ; Status DC Sodium Chloride (NS Flush) 2 ml UNSCH PRN IVF; Start 02/01/18 at 08:30 Family History Mom: DM, HTN ( 1998- dialysis) Dad: CAD, CABG, (1987-he was 69 years old) Social History for 25 years. Only her and in the house; her helps somewhat but he has to work most days; her daughter also helps, but she works as well.. Never smoker. Never alcohol. Never illicit drugs. Physical Exam Vital Signs Vital Signs Date Time Temp Pulse Resp B/P (MAP) Pulse Ox O2 Delivery O2 Flow Rate FiO2 02/01/18 13:44 75 17 156/65 (95) 96 Room Air 02/01/18 09:40 98 Room Air 02/01/18 09:38 100 Room Air 02/01/18 09:38 100 Room Air 02/01/18 08:34 97.5 72 17 175/85 (115) 99 Physical Exam GENERAL: This is a pleasant female, soft-spoken, lying in bed. No acute distress. Appears tired. SKIN: Cool and dry. HEAD: Atraumatic. Normocephalic. No temporal or scalp tenderness. EYES: Pupils equal round and reactive. Extraocular motions intact. No scleral icterus. No injection or drainage. ENT: Nose without bleeding, purulent drainage or septal hematoma. Throat without erythema, tonsillar hypertrophy or exudate. Uvula midline. Airway patent. NECK: Trachea midline. No JVD or lymphadenopathy. Supple, nontender, no meningeal signs. CARDIOVASCULAR: Regular rate and rhythm without murmurs, gallops, or rubs. RESPIRATORY: Clear to auscultation. Breath sounds equal bilaterally. No wheezes , rales, or rhonchi. GASTROINTESTINAL: Abdomen soft, non-tender, nondistended. No hepato-splenomegaly , or palpable masses. No guarding. MUSCULOSKELETAL: Extremities without clubbing, cyanosis, or edema. No joint tenderness, effusion, or edema noted. No calf tenderness. Negative Homans sign bilaterally. NEUROLOGICAL: Awake and alert. Cranial nerves II through XII intact. 3 out of 5 strength bilaterally in the lower extremities. 5 out of 5 strength in the upper extremities. Normal speech. Laboratory Laboratory Tests Test 02/01/18 09:39 02/01/18 12:13 White Blood Count 8.4 Red Blood Count 4.08 Hemoglobin 12.4 Hematocrit 35.7 Mean Corpuscular Volume 87.5 Mean Corpuscular Hemoglobin 30.4 Mean Corpuscular Hemoglobin Concent 34.7 Red Cell Distribution Width 14.7 Platelet Count 439 Mean Platelet Volume 6.8 Neutrophils (%) (Auto) 39.4 Lymphocytes (%) (Auto) 44.1 Monocytes (%) (Auto) 5.5 Eosinophils (%) (Auto) 10.0 Basophils (%) (Auto) 1.0 Neutrophils # (Auto) 3.3 Lymphocytes # (Auto) 3.7 Monocytes # (Auto) 0.5 Eosinophils # (Auto) 0.8 Basophils # (Auto) 0.1 CBC Comment DIFF FINAL Differential Comment Prothrombin Time 10.5 Prothromb Time International Ratio 1.0 Activated Partial Thromboplast Time 24.0 Blood Urea Nitrogen 81 Creatinine 2.25 Random Glucose 233 Total Protein 8.5 Albumin 3.3 Calcium Level 10.8 Magnesium Level 2.5 Alkaline Phosphatase 77 Aspartate Amino Transf (AST/SGOT) 13 Alanine Aminotransferase (ALT/SGPT) 17 Total Bilirubin 0.2 Sodium Level 142 Potassium Level 3.7 Chloride Level 116 Carbon Dioxide Level 14.2 Anion Gap 12 Estimat Glomerular Filtration Rate 26 Total Creatine Kinase 21 Troponin I 0.06 B-Type Natriuretic Peptide 29 Urine Color LIGHT-YELLOW Urine Turbidity CLEAR Urine pH 6.0 Urine Specific Sutter 1.017 Urine Protein 100 Urine Glucose (UA) NEG Urine Ketones NEG Urine Occult Blood TRACE Urine Nitrite NEG Urine Bilirubin NEG Urine Urobilinogen LESS THAN 2.0 Urine Leukocyte Esterase SMALL Urine RBC 1 Urine WBC 4 Urine Squamous Epithelial Cells <1 Urine Amorphous Sediment FEW Urine Bacteria OCC Urine Hyaline Casts 1 Microscopic Urinalysis Comment CULT NOT INDICATED Result Diagram: 02/01/1893802/01/18938 Imaging Last Impressions Chest X-Ray 02/01/18829 Signed Impressions: Service Date/Time: Thursday, February 01, 2018 09:23 - CONCLUSION: 1. No acute cardiopulmonary findings. MD Ade Somersi VTE Risk Assessment Caprini VTE Risk Assessment: Mod/High Risk (score >= 2) Caprini Risk Assessment Model Point Value = 1 Point Value = 2 Point Value = 3 Point Value = 5 Age 41-60 Minor surgery BMI > 25 kg/m2 Swollen legs Varicose veins or History of unexplained or recurrent spontaneous Oral contraceptives or hormone replacement Sepsis (< 1 month) Serious lung disease, including pneumonia (< 1 month) Abnormal pulmonary function Acute myocardial infarction Congestive heart failure (< 1 month) History of inflammatory bowel disease Medical patient at bed rest Age 61-74 Arthroscopic surgery Major open surgery (> 45 min) Laparoscopic surgery (> 45 min) Malignancy Confined to bed (> 72 hours) Immobilizing plaster cast Central venous access Age >= 75 History of VTE Family history of VTE Factor V Leiden Prothrombin 10851H Lupus anticoagulant Anticardiolipin antibodies Elevated serum homocysteine Heparin-induced thrombocytopenia Other congenital or acquired thrombophilia Stroke (< 1 month) Elective arthroplasty Hip, pelvis, or leg fracture Acute spinal cord injury (< 1 month) Prophylaxis Regimen Total Risk Factor Score Risk Level Prophylaxis Regimen 0-1 Low Early ambulation 2 Moderate Order ONE of the following: *Sequential Compression Device (SCD) *Heparin 5000 units SQ BID 3-4 Higher Order ONE of the following medications: *Heparin 5000 units SQ TID *Enoxaparin/Lovenox 40 mg SQ daily (WT < 150 kg, CrCl > 30 mL/min) *Enoxaparin/Lovenox 30 mg SQ daily (WT < 150 kg, CrCl > 10-29 mL/min) *Enoxaparin/Lovenox 30 mg SQ BID (WT < 150 kg, CrCl > 30 mL/min) AND/OR *Sequential Compression Device (SCD) 5 or more Highest Order ONE of the following medications: *Heparin 5000 units SQ TID (Preferred with Epidurals) *Enoxaparin/Lovenox 40 mg SQ daily (WT < 150 kg, CrCl > 30 mL/min) *Enoxaparin/Lovenox 30 mg SQ daily (WT < 150 kg, CrCl > 10-29 mL/min) *Enoxaparin/Lovenox 30 mg SQ BID (WT < 150 kg, CrCl > 30 mL/min) AND *Sequential Compression Device (SCD) Assessment and Plan Assessment and Plan 67-year-old female with history of poorly controlled diabetes presents with DELLA and generalized weakness, unable to get up out of chair. Code Status Full Discussed Condition With Dr. Tapia Problem List: (1) Generalized weakness ICD Codes: R53.1 - Weakness Status: Acute Plan: Increasing generalized weakness over the past week to week and a half. Likely from poorly controlled diabetes and acute on chronic kidney injury. Physical therapy consult Occupational therapy Case management consult, patient may need placement at discharge Sedimentation Rate and CRP now Consider broadening differential to include adrenal insufficiency versus other if no improvement (2) DELLA (acute kidney injury) ICD Codes: N17.9 - Acute kidney failure, unspecified Status: Acute Plan: Acute on chronic kidney injury. Likely from poorly controlled diabetes and hypertension Nephrology consult Normal saline at maintenance rate Careful with nephrotoxic agents (3) Peripheral neuropathy ICD Codes: G62.9 - Polyneuropathy, unspecified Status: Acute Plan: Patient has had benefit from gabapentin We will continue gabapentin 300mg by mouth twice a day Careful with dosing because of kidney injury (4) Hypertension ICD Codes: I10 - Essential (primary) hypertension Status: Chronic Plan: Continue home carvedilol, amlodipine (5) Diabetes mellitus ICD Codes: E11.9 - Type 2 diabetes mellitus without complications Status: Chronic Plan: Diabetes with kidney injury. Noncompliant as an outpatient Sliding scale insulin while inpatient Patient likely would benefit from long-acting insulin as an outpatient if she will be compliant. Hemoglobin A1c ordered now Counseled extensively on the importance of medical compliance (6) Gastroparesis ICD Codes: K31.84 - Gastroparesis Status: Acute Plan: History of gastroparesis. At this point, it is not clear if patient continues to take Reglan or erythromycin as the patient is not sure and does not have a medication list We will continue to evaluate and add medications as needed (7) FEN Status: Acute Plan: Fluids: Normal saline at maintenance rate Electrodes: Monitor and replace as needed Nutrition: Diabetic diet Prophylaxis: Heparin, SCDs Physician Certification 2 Midnight Certification Type: Admission for Inpatient Services Order for Inpatient Services The services are ordered in accordance with Medicare regulations or non- Medicare payer requirements, as applicable. In the case of services not specified as inpatient-only, they are appropriately provided as inpatient services in accordance with the 2-midnight benchmark. Estimated LOS (days): 2 days is the estimated time the patient will need to remain in the hospital, assuming treatment plan goals are met and no additional complications. Post-Hospital Plan: Not yet determined Problem Qualifiers (1) Peripheral neuropathy: Qualified Codes: G62.9 - Polyneuropathy, unspecified (2) Hypertension: Qualified Codes: I10 - Essential (primary) hypertension (3) Diabetes mellitus: Qualified Codes: E11.22 - Type 2 diabetes mellitus with diabetic chronic kidney disease Wade Desai MD, R3 Feb 01, 2018 14:01
[2018-02-01] MEDS: SODIUM CHLOR 0.9% 1000 ML INJ 1,000 ML IV SCH (14:34)
[2018-02-01] MEDS ORDERED: SODIUM CHLORIDE 0.9% FLUSH 10 ML FLUSH IV FLUSH PRN (14:45)
[2018-02-01] MEDS ORDERED: SENNOSIDES 8.6 MG TAB PO PRN (14:45)
[2018-02-01] MEDS ORDERED: LACTULOSE SYRUP 20 GM/30 ML CUP PO PRN (14:45)
[2018-02-01] MEDS ORDERED: NALOXONE HCL 0.4 MG/ML AMP IV PUSH PRN (14:45)
[2018-02-01] MEDS ORDERED: BISACODYL 10 MG SUPP RECTAL PRN (14:45)
[2018-02-01] MEDS ORDERED: ONDANSETRON HCL 4 MG/2 ML VIAL IVP PRN (14:45)
[2018-02-01] MEDS ORDERED: GABAPENTIN 300 MG CAP PO SCH (15:00)
[2018-02-01 15:34] LABS: C-REACTIVE PROTEIN 0.54 MG/DL (0.00-0.30)
[2018-02-01] MEDS: ASPIRIN EC 325 MG TABEC PO SCH (15:46)
[2018-02-01] MEDS: HEPARIN SODIUM - SQ 10,000 UNITS/ML VIAL SQ SCH (15:57)
[2018-02-01 16:00] VITALS: BP 162/62; PULSE 77; RESP 18; O2SAT 100
[2018-02-01 16:43] LABS: HEMOGLOBIN A1C 7.5 % (4.3-6.0)
[2018-02-01] MEDS ORDERED: DEXTROSE 50% IN WATER 50 ML VIAL(D50) IV PUSH PRN (17:15)
[2018-02-01] MEDS ORDERED: GLUCAGON 1 MG/ML VIAL OTHER PRN (17:15)
[2018-02-01 20:00] VITALS: BP 143/66; PULSE 75; RESP 18; TEMP 97.5; O2SAT 96
[2018-02-01] MEDS: SODIUM CHLORIDE 0.9% FLUSH 10 ML FLUSH IV FLUSH SCH (21:00)
[2018-02-01] MEDS: DOCUSATE SODIUM 50 MG/SENNA 8.6 MG TAB PO SCH (21:00)
[2018-02-01] MEDS: ACETAMINOPHEN/HYDROcodone 325 MG/10 MG TAB PO PRN (21:13)
[2018-02-01] MEDS: CARVEDILOL 12.5 MG TAB PO SCH (21:13)
[2018-02-01] MEDS: INSULIN ASPART SUPPLEMENTAL SCALE SQ SCH (21:14)
[2018-02-01 22:34] LABS: SODIUM,RANDOM URINE 41 MEQ/L
[2018-02-01 22:35] LABS: OSMOLALITY,URINE 446 MOSM/KG (300-1300)
[2018-02-02] VITALS (11 sets, daily range): BP systolic 91–169; BP diastolic 50–96; PULSE 56–73; RESP 9–60; TEMP 97.2–98.4; O2SAT 97–100
[2018-02-02] MEDS: ACETAMINOPHEN/HYDROcodone 325 MG/10 MG TAB PO PRN ×4 (01:12→20:50)
[2018-02-02] MEDS: SODIUM CHLOR 0.9% 1000 ML INJ 1,000 ML IV SCH ×2 (01:12→10:34)
[2018-02-02] MEDS: HEPARIN SODIUM - SQ 10,000 UNITS/ML VIAL SQ SCH (05:27)
[2018-02-02 06:57] LABS: AUTOMATED NEUTROPHIL # 2.3 TH/MM3 (1.8-7.7); BASOPHIL # 0.1 TH/MM3 (0-0.2); BASOPHIL % 1.1 % (0.0-2.0); EOSINOPHIL # 1.3 TH/MM3 (0-0.4); EOSINOPHIL % 15.2 % (0.0-4.0); HEMATOCRIT 27.2 % (35.0-46.0); HEMOGLOBIN 9.5 GM/DL (11.6-15.3); LYMPH % 49.1 % (9.0-44.0); LYMPHOCYTE # 4.2 TH/MM3 (1.0-4.8); MEAN CELL VOLUME 87.7 FL (80.0-100.0); MEAN CORPUSCULAR HEMOGLOBIN 30.7 PG (27.0-34.0); MEAN PLATELET VOLUME 6.9 FL (7.0-11.0); MONO % 8.4 % (0.0-8.0); MONOCYTE # 0.7 TH/MM3 (0-0.9); NEUT % 26.2 % (16.0-70.0); PLATELET COUNT 374 TH/MM3 (150-450); RED CELL DISTRIBUTION WIDTH 14.5 % (11.6-17.2); WHITE BLOOD COUNT 8.6 TH/MM3 (4.0-11.0)
[2018-02-02 07:37] LABS: ALBUMIN 2.6 GM/DL (3.4-5.0); ALKALINE PHOSPHATASE 60 U/L (45-117); ALT (GPT) 16 U/L (10-53); AST (GOT) 15 U/L (15-37); BICARBONATE 13.2 MEQ/L (21.0-32.0); BLOOD UREA NITROGEN 62 MG/DL (7-18); CALCIUM 9.4 MG/DL (8.5-10.1); CHLORIDE 120 MEQ/L (98-107); CREATININE 1.84 MG/DL (0.50-1.00); GLOMERULAR FILTRATION RATE 33 ML/MIN (>89); GLUCOSE,RANDOM 167 MG/DL (74-106); SODIUM (NA) 145 MEQ/L (136-145); TOTAL BILIRUBIN ADULT 0.1 MG/DL (0.2-1.0); TOTAL PROTEIN 6.7 GM/DL (6.4-8.2); TROPONIN I 0.09 NG/ML (0.02-0.05)
[2018-02-02] MEDS: RESP: ALBUTEROL 2.5 MG/IPRATROPIUM 0.5 MG NEB (SCH) NEB ×2 (08:00→21:35)
[2018-02-02] MEDS: INSULIN ASPART SUPPLEMENTAL SCALE SQ SCH ×4 (08:00→20:27)
[2018-02-02] MEDS: SODIUM CHLORIDE 0.9% FLUSH 10 ML FLUSH IV FLUSH SCH ×2 (08:58→20:26)
[2018-02-02] MEDS ORDERED: GABAPENTIN 300 MG CAP PO SCH (09:00)
[2018-02-02] MEDS: ASPIRIN EC 325 MG TABEC PO SCH (09:00)
[2018-02-02] MEDS: PRAVASTATIN SOD 10 MG TAB PO SCH (09:00)
[2018-02-02] MEDS: PANTOPRAZOLE SOD 40 MG DELAYED RELEASE TAB PO SCH (09:06)
[2018-02-02] MEDS: CARVEDILOL 12.5 MG TAB PO SCH ×2 (09:07→20:26)
[2018-02-02] MEDS: POTASSIUM CHLORIDE 20 MEQ CONTROLLED RELEASE TAB PO SCH (09:07)
[2018-02-02] MEDS: FERROUS SULFATE 325 MG (65 MG ELEMENTAL IRON) TAB PO SCH ×2 (09:07→20:26)
[2018-02-02] MEDS: GEMFIBROZIL 600 MG TAB PO SCH (09:07)
[2018-02-02] MEDS: DOCUSATE SODIUM 50 MG/SENNA 8.6 MG TAB PO SCH ×2 (09:09→20:26)
--- NOTE | 2018-02-02 09:30 | HHI.HP ---
[facility] Service Family Medicine Primary Care Physician Wade Garcia , Susanna Desai MD Admission Diagnosis DELLA, Generalized weakness. Diagnoses: (1) Generalized weakness Diagnosis: Principal (2) DELLA (acute kidney injury) Diagnosis: Principal (3) Peripheral neuropathy Diagnosis: Principal (4) Hypertension Diagnosis: Principal (5) Diabetes mellitus Diagnosis: Principal (6) Gastroparesis Diagnosis: Principal (7) FEN Diagnosis: Principal International Travel<30 Days: No Contact w/Intl Traveler<30days: No Known Affected Area: No History of Present Illness Ms Cohen is a 67-year-old female with poorly controlled diabetes with multiple previous complications who presents with weakness which has been increasing over the past month. However, over the past week her weakness has been getting much worse. Patient states that yesterday she could not get out of her chair to walk to the bathroom and she had a bowel movement and urinated on herself. She does live with her , but states that he has to work. She does complain of diabetic neuropathy in her legs which has been ongoing. We recently increased her gabapentin to 400 mg twice a day and she states this is helping. She denies abdominal pain, dysuria, fever, chest pain, shortness of breath. She has not yet been able to get an appointment with a computer application developer as an outpatient. At her last appointment, we had ordered continued physical therapy, but she has not yet been able to go to this. Patient states her appetite has been fair, although she states her daughter would likely say she has been eating and drinking less. Per her daughter over the phone, last Tuesday she could walk though slowly compared to her norm. On she had trouble walking where before that she had been independent with toileting and getting around her house. She had to go back to a wheelchair last . On Tuesday, she had trouble feeding herself and was feeling weaker in the arms. She does say her "whole body hurts". Now she cannot speak loudly and states that her breath is weak so she can only speak with very diminished volume. She denies any recent infections or illness. Her also confirmed the history of a one week worsening of ncreasing pain and decreasing strength. Review of Systems ROS Limitations: Poor Historian Constitutional: COMPLAINS OF: Fatigue, DENIES: Fever, Night Sweats Endocrine: DENIES: Polydipsia, Polyuria, Polyphagia Respiratory: DENIES: Cough, Sputum production, Shortness of breath Cardiovascular: DENIES: Chest pain Gastrointestinal: COMPLAINS OF: Diarrhea, DENIES: Abdominal pain, Constipation , Nausea, Vomiting, Difficulty Swallowing, Anorexia Genitourinary: COMPLAINS OF: Urinary incontinence, DENIES: Urinary frequency Musculoskeletal: DENIES: Muscle aches, Joint Swelling Integumentary: DENIES: Rash Neurologic: COMPLAINS OF: Abnormal gait, Localized weakness, Paresthesias, Speech Problems, DENIES: Headache, Seizures, Tremor Other Constitutional: DENIES: Fever, Chills Eyes: DENIES: Blurred vision, Diplopia Ears, nose, mouth, throat: DENIES: Tinnitus, Hearing loss, Vertigo Respiratory: DENIES: Apneas, Cough, Sputum production, Shortness of breath Cardiovascular: DENIES: Chest pain, Palpitations, Syncope Gastrointestinal: COMPLAINS OF: Constipation, DENIES: Abdominal pain, Black stools, Bloody stools, Diarrhea Neurologic: COMPLAINS OF: Abnormal gait, DENIES: Headache, Localized weakness, Paresthesias Psychiatric: DENIES: Anxiety, Confusion Past Family Social History Past Medical History DM-poorly controlled, noncompliant HTN HLD Pyelonephritis Gastroparesis Frequent UTI (multi-bug resistant UTI, pseudomonas) Anemia CHF Patent foramen ovale Past Surgical History C sec (1990) Renal abscess Reported Medications Nebulizer 1 Mis Mis Ea .ROUTE DIRECTED for use with DuoNeb Duoneb (Ipratropium-Albuterol Neb) 0.5-2.5 Mg/3 Ml Neb 3 Ml NEB BID Gabapentin 100 Mg Cap 100 Mg PO HS Keflex (Cephalexin) 500 Mg Cap 500 Mg PO Q12H Hydrochlorothiazide 25 Mg Tab 25 Mg PO DAILY Potassium Chloride Microencaps 20 Meq Tab 20 Meq PO DAILY Coreg (Carvedilol) 12.5 Mg Tab 12.5 Mg PO Q12HR Hydrocodone-Acetamin 10-325 mg (Hydrocodone/Acetaminophen) 10 Mg-325 Mg Tablet 1 Tab PO Q4H PRN Pantoprazole (Pantoprazole Sodium) 40 Mg Tab 40 Mg PO DAILY Pravastatin 10 Mg Tab 10 Mg PO DAILY Thera Tablet (Multivitamin with Folic Acid) 400 Mcg Tablet 1 Tab PO DAILY Novolog Inj (Insulin Aspart) 100 Unit/Ml Inj 1 Unit SQ ACHS SLIDING SCALE Gnp Senna Plus 8.6-50 mg (Sennosides-Docusate Sodium) 8.6 Mg-50 Mg Tab 1 Tab PO BID Aspirin EC (Aspirin) 325 Mg Tabdr 325 Mg PO DAILY Lopid (Gemfibrozil) 600 Mg Tab 300 Mg PO DAILY Take 30 minutes prior to meal Ferosul (Ferrous Sulfate) 325 Mg (65 Mg Iron) Tablet 325 Mg PO BID Amlodipine (Amlodipine Besylate) 10 Mg Tab 10 Mg PO DAILY Allergies: Coded Allergies: metformin (Verified Allergy, Severe, Numbness, 12/22/17) clonidine (Verified Allergy, Unknown, 12/22/17) chest pain Family History Mom: DM, HTN ( 1998- dialysis) Dad: CAD, CABG, (1987-he was 69 years old) Social History for 25 years. Only her and in the house; her helps somewhat but he has to work most days; her daughter also helps, but she works as well.. Never smoker. Never alcohol. Never illicit drugs. Physical Exam Vital Signs Vital Signs Date Time Temp Pulse Resp B/P (MAP) Pulse Ox O2 Delivery O2 Flow Rate FiO2 02/02/18 08:00 98.4 60 60 131/63 (85) 98 02/02/18 04:00 97.2 66 18 160/62 (94) 99 02/02/18 00:00 98.4 73 16 169/74 (105) 97 02/01/18 20:00 97.5 75 18 143/66 (91) 96 02/01/18 16:00 77 18 162/62 (95) 100 Nasal Cannula 2.00 02/01/18 13:44 75 17 156/65 (95) 96 Room Air 02/01/18 09:40 98 Room Air 02/01/18 09:38 100 Room Air 02/01/18 09:38 100 Room Air Physical Exam GENERAL: This is a pleasant female, soft-spoken, lying in bed. No acute distress. Appears tired. reports feeling too weak to speak loudly SKIN: Cool and dry. HEAD: Atraumatic. Normocephalic. No temporal or scalp tenderness. EYES: Pupils equal round and reactive. Extraocular motions intact. No scleral icterus. No injection or drainage. ENT: Nose without bleeding, purulent drainage or septal hematoma. Airway patent. NECK: Trachea midline. No JVD or lymphadenopathy. Supple, nontender, no meningeal signs. CARDIOVASCULAR: Regular rate and rhythm without murmurs, gallops, or rubs. RESPIRATORY: Clear to auscultation. Breath sounds equal bilaterally. No wheezes , rales, or rhonchi. GASTROINTESTINAL: Abdomen soft, non-tender, nondistended. No hepato-splenomegaly , or palpable masses. No guarding. MUSCULOSKELETAL: Extremities without clubbing, cyanosis, or edema. No joint tenderness, effusion, or edema noted. No calf tenderness. Negative Homans sign bilaterally. NEUROLOGICAL: Awake and alert. Cranial nerves II through XII intact. 3 out of 5 strength bilaterally in the lower extremities. 5 out of 5 strength in the upper extremities. Normal speech. diminished ankle reflexes but others present Laboratory Laboratory Tests Test 02/01/18 09:39 02/01/18 12:13 02/01/18 21:12 02/02/18 06:15 White Blood Count 8.4 8.6 Red Blood Count 4.08 3.10 Hemoglobin 12.4 9.5 Hematocrit 35.7 27.2 Mean Corpuscular Volume 87.5 87.7 Mean Corpuscular Hemoglobin 30.4 30.7 Mean Corpuscular Hemoglobin Concent 34.7 35.0 Red Cell Distribution Width 14.7 14.5 Platelet Count 439 374 Mean Platelet Volume 6.8 6.9 Neutrophils (%) (Auto) 39.4 26.2 Lymphocytes (%) (Auto) 44.1 49.1 Monocytes (%) (Auto) 5.5 8.4 Eosinophils (%) (Auto) 10.0 15.2 Basophils (%) (Auto) 1.0 1.1 Neutrophils # (Auto) 3.3 2.3 Lymphocytes # (Auto) 3.7 4.2 Monocytes # (Auto) 0.5 0.7 Eosinophils # (Auto) 0.8 1.3 Basophils # (Auto) 0.1 0.1 CBC Comment DIFF FINAL AUTO DIFF Differential Comment AUTO DIFF CONFIRMED Prothrombin Time 10.5 Prothromb Time International Ratio 1.0 Activated Partial Thromboplast Time 24.0 Blood Urea Nitrogen 81 62 Creatinine 2.25 1.84 Random Glucose 233 167 Total Protein 8.5 6.7 Albumin 3.3 2.6 Calcium Level 10.8 9.4 Magnesium Level 2.5 Alkaline Phosphatase 77 60 Aspartate Amino Transf (AST/SGOT) 13 15 Alanine Aminotransferase (ALT/SGPT) 17 16 Total Bilirubin 0.2 0.1 Sodium Level 142 145 Potassium Level 3.7 3.2 Chloride Level 116 120 Carbon Dioxide Level 14.2 13.2 Anion Gap 12 12 Estimat Glomerular Filtration Rate 26 33 Hemoglobin A1c 7.5 Total Creatine Kinase 21 Troponin I 0.06 0.09 C-Reactive Protein 0.54 B-Type Natriuretic Peptide 29 Urine Color LIGHT-YELLOW Urine Turbidity CLEAR Urine pH 6.0 Urine Specific [place] 1.017 Urine Protein 100 Urine Glucose (UA) NEG Urine Ketones NEG Urine Occult Blood TRACE Urine Nitrite NEG Urine Bilirubin NEG Urine Urobilinogen LESS THAN 2.0 Urine Leukocyte Esterase SMALL Urine RBC 1 Urine WBC 4 Urine Squamous Epithelial Cells <1 Urine Amorphous Sediment FEW Urine Bacteria OCC Urine Hyaline Casts 1 Microscopic Urinalysis Comment CULT NOT INDICATED Urine Osmolality 446 Urine Random Sodium 41 Erythrocyte Sedimentation Rate 61 Platelet Estimate NORMAL Platelet Morphology Comment NORMAL Red Cell Morphology Comment NORMAL Result Diagram: 02/02/1815 02/02/18614 Imaging Last Impressions Chest X-Ray 02/01/18 0830 Signed Impressions: Service Date/Time: Thursday, February 01, 2018 09:23 - CONCLUSION: 1. No acute cardiopulmonary findings. Gerard Dorantes MD Caprini VTE Risk Assessment Caprini VTE Risk Assessment: Mod/High Risk (score >= 2) Caprini Risk Assessment Model Point Value = 1 Point Value = 2 Point Value = 3 Point Value = 5 Age 41-60 Minor surgery BMI > 25 kg/m2 Swollen legs Varicose veins or History of unexplained or recurrent spontaneous Oral contraceptives or hormone replacement Sepsis (< 1 month) Serious lung disease, including pneumonia (< 1 month) Abnormal pulmonary function Acute myocardial infarction Congestive heart failure (< 1 month) History of inflammatory bowel disease Medical patient at bed rest Age 61-74 Arthroscopic surgery Major open surgery (> 45 min) Laparoscopic surgery (> 45 min) Malignancy Confined to bed (> 72 hours) Immobilizing plaster cast Central venous access Age >= 75 History of VTE Family history of VTE Factor V Leiden Prothrombin [id number] Lupus anticoagulant Anticardiolipin antibodies Elevated serum homocysteine Heparin-induced thrombocytopenia Other congenital or acquired thrombophilia Stroke (< 1 month) Elective arthroplasty Hip, pelvis, or leg fracture Acute spinal cord injury (< 1 month) Prophylaxis Regimen Total Risk Factor Score Risk Level Prophylaxis Regimen 0-1 Low Early ambulation 2 Moderate Order ONE of the following: *Sequential Compression Device (SCD) *Heparin 5000 units SQ BID 3-4 Higher Order ONE of the following medications: *Heparin 5000 units SQ TID *Enoxaparin/Lovenox 40 mg SQ daily (WT < 150 kg, CrCl > 30 mL/min) *Enoxaparin/Lovenox 30 mg SQ daily (WT < 150 kg, CrCl > 10-29 mL/min) *Enoxaparin/Lovenox 30 mg SQ BID (WT < 150 kg, CrCl > 30 mL/min) AND/OR *Sequential Compression Device (SCD) 5 or more Highest Order ONE of the following medications: *Heparin 5000 units SQ TID (Preferred with Epidurals) *Enoxaparin/Lovenox 40 mg SQ daily (WT < 150 kg, CrCl > 30 mL/min) *Enoxaparin/Lovenox 30 mg SQ daily (WT < 150 kg, CrCl > 10-29 mL/min) *Enoxaparin/Lovenox 30 mg SQ BID (WT < 150 kg, CrCl > 30 mL/min) AND *Sequential Compression Device (SCD) Assessment and Plan Assessment and Plan 67-year-old female with history of poorly controlled diabetes presents with DELLA and generalized weakness, unable to get up out of chair. Problem List: (1) Generalized weakness ICD Codes: R53.1 - Weakness Status: Acute Plan: Increasing generalized weakness over the past week to week and a half. suspicious for Guillain Hiram as it has a short time course and also elevated protein in hr CSF. She does have reflexes which confuses the issue Physical therapy consult Occupational therapy Case management consult, patient may need placement at discharge Sedimentation Rate and CRP done MRI does not account for her sxs LP shows increased protein will start 3-5 treatments of plasmapheresis tomorrow (2) Respiratory abnormality ICD Codes: J98.9 - Respiratory disorder, unspecified Status: Acute Plan: her vital capacity was .65 of a liter. per calculations she should be approximately 1 liter. If she is too low then many people end up on a ventilator. will order another vital capacity for tomorrow. will need to consult Dressing Room Porter if she is any lower. she will be watched in IMC to be sure she does well with her breathing. she will start plasmapheresis and hopefully will begin to improve (3) DELLA (acute kidney injury) ICD Codes: N17.9 - Acute kidney failure, unspecified Status: Acute Plan: Acute on chronic kidney injury. Likely from poorly controlled diabetes and hypertension Nephrology consulted Normal saline at maintenance rate Careful with nephrotoxic agents (4) Peripheral neuropathy ICD Codes: G62.9 - Polyneuropathy, unspecified Status: Acute Plan: Patient has had benefit from gabapentin We will continue gabapentin 300mg by mouth twice a day Careful with dosing because of kidney injury Per her her pain became very bad just within the past week and could also be related to GB (5) Hypertension ICD Codes: I10 - Essential (primary) hypertension Status: Chronic Plan: Continue home carvedilol, amlodipine (6) Diabetes mellitus ICD Codes: E11.9 - Type 2 diabetes mellitus without complications Status: Chronic Plan: Diabetes with kidney injury. Noncompliant as an outpatient Sliding scale insulin while inpatient Patient likely would benefit from long-acting insulin as an outpatient if she will be compliant. Hemoglobin A1c ordered now Counseled extensively on the importance of medical compliance (7) Gastroparesis ICD Codes: K31.84 - Gastroparesis Status: Acute Plan: History of gastroparesis. At this point, it is not clear if patient continues to take Reglan or erythromycin as the patient is not sure and does not have a medication list We will continue to evaluate and add medications as needed (8) FEN Status: Acute Plan: Fluids: Normal saline at maintenance rate Electrodes: Monitor and replace as needed Nutrition: Diabetic diet Prophylaxis: Heparin, SCDs Problem Qualifiers (1) Peripheral neuropathy: Qualified Codes: G62.9 - Polyneuropathy, unspecified (2) Hypertension: Qualified Codes: I10 - Essential (primary) hypertension (3) Diabetes mellitus: Qualified Codes: E11.22 - Type 2 diabetes mellitus with diabetic chronic kidney disease Desirae Clark MD Feb 02, 2018 09:30
--- NOTE | 2018-02-02 10:32 | PD.CONS ---
HPI Service Nephrology Consult Requested By Dr. Tapia Reason for Consult Acute kidney injury HX of CKD Primary Care Physician Wade Garcia , Susanna Desai MD Review of Systems Constitutional: COMPLAINS OF: Fatigue Past Family Social History Allergies: Coded Allergies: metformin (Verified Allergy, Severe, Numbness, 12/22/17) clonidine (Verified Allergy, Unknown, 12/22/17) chest pain Past Medical History DM-poorly controlled, noncompliant HTN HLD Pyelonephritis Gastroparesis Frequent UTI (multi-bug resistant UTI, pseudomonas) Anemia CHF Patent foramen ovale Past Surgical History C sec (1990) Renal abscess Active Ordered Medications Current Medications Medications (Trade) Dose Ordered Sig/Alisha Route Start Time Stop Time Status Last Admin (Norvasc) 10 mg DAILY PO 02/01/18 14:30 02/02/18 09:07 (Ecotrin Ec) 325 mg DAILY PO 02/01/18 14:30 Future Hold 02/01/18 15:46 (Coreg) 12.5 mg Q12HR PO 02/01/18 21:00 02/02/18 09:07 (Ferrous Sulfate) 325 mg BID PO 02/02/18 09:00 02/02/18 09:07 (Lopid) 300 mg DAILY PO 02/02/18 09:00 02/02/18 09:07 ([place] 10-325 Mg) 1 tab Q4H PRN PO 02/01/18 14:30 02/02/18 05:27 (Duoneb Neb) 1 ampule BID NEB NEB 02/01/18 21:00 (Protonix) 40 mg DAILY PO 02/02/18 09:00 02/02/18 09:06 (KCl) 20 meq DAILY PO 02/02/18 09:00 02/02/18 09:07 (Pravachol) 10 mg DAILY PO 02/02/18 09:00 02/02/18 09:00 Sodium Chloride 1,000 ml @ 100 mls/hr Q10H IV 02/01/18 14:34 02/02/18 01:12 (NS Flush) 2 ml UNSCH PRN IV FLUSH 02/01/18 14:45 (NS Flush) 2 ml BID IV FLUSH 02/01/18 21:00 (Tylenol) 650 mg Q4H PRN PO 02/01/18 14:45 (Zofran Inj) 4 mg Q6H PRN IVP 02/01/18 14:45 (Heparin Inj) 5,000 units Q12H SQ 02/01/18 16:00 Future Hold 02/02/18 05:27 (Narcan Inj) 0.4 mg UNSCH PRN IV PUSH 02/01/18 14:45 (Bridgette-Colace) 1 tab BID PO 02/01/18 21:00 02/02/18 09:09 (Milk Of Magnesia Liq) 30 ml Q12H PRN PO 02/01/18 14:45 (Senokot) 17.2 mg Q12H PRN PO 02/01/18 14:45 (Dulcolax Supp) 10 mg DAILY PRN RECTAL 02/01/18 14:45 (Lactulose Liq) 30 ml DAILY PRN PO 02/01/18 14:45 (Neurontin) 600 mg DAILY PO 02/02/18 09:00 02/02/18 09:08 (D50w (Vial) Inj) 50 ml UNSCH PRN IV PUSH 02/01/18 17:15 (Glucagon Inj) 1 mg UNSCH PRN OTHER 02/01/18 17:15 (NovoLOG SUPPLEMENTAL SCALE) 1 ACHS SLIDING SCALE SQ 02/01/18 21:00 02/02/18 08:00 Family History Mom: DM, HTN ( 1998- dialysis) Dad: CAD, CABG, (1987-he was 69 years old) Social History for 25 years. Only her and in the house; her helps somewhat but he has to work most days; her daughter also helps, but she works as well.. Never smoker. Never alcohol. Never illicit drugs. Physical Exam Vital Signs Vital Signs Date Time Temp Pulse Resp B/P (MAP) Pulse Ox O2 Delivery O2 Flow Rate FiO2 02/02/18 08:00 98.4 60 60 131/63 (85) 98 02/02/18 04:00 97.2 66 18 160/62 (94) 99 02/02/18 00:00 98.4 73 16 169/74 (105) 97 02/01/18 20:00 97.5 75 18 143/66 (91) 96 02/01/18 16:00 77 18 162/62 (95) 100 Nasal Cannula 2.00 02/01/18 13:44 75 17 156/65 (95) 96 Room Air Physical Exam GENERAL: Frail, alert and oriented. SKIN: No rashes, ecchymoses or lesions. Cool and dry. HEAD: Atraumatic. Normocephalic. No temporal or scalp tenderness. EYES: Pupils equal round and reactive. Extraocular motions intact. No scleral icterus. No injection or drainage. ENT: Nose without bleeding, purulent drainage or septal hematoma. Throat without erythema, tonsillar hypertrophy or exudate. Uvula midline. Airway patent. NECK: Trachea midline. No JVD or lymphadenopathy. Supple, nontender, no meningeal signs. CARDIOVASCULAR: Regular rate and rhythm without murmurs, gallops, or rubs. RESPIRATORY: Clear to auscultation. Breath sounds equal bilaterally. No wheezes , rales, or rhonchi. GASTROINTESTINAL: Abdomen soft, non-tender, nondistended. No hepato-splenomegaly , or palpable masses. No guarding. MUSCULOSKELETAL: Extremities without clubbing, cyanosis, or edema. No joint tenderness, effusion, or edema noted. No calf tenderness. Negative Homans sign bilaterally. NEUROLOGICAL: Awake and alert. Delayed speech. Laboratory Laboratory Tests Test 02/01/18 12:13 02/01/18 21:12 02/02/18 06:15 Urine Color LIGHT-YELLOW Urine Turbidity CLEAR Urine pH 6.0 Urine Specific [place] 1.017 Urine Protein 100 Urine Glucose (UA) NEG Urine Ketones NEG Urine Occult Blood TRACE Urine Nitrite NEG Urine Bilirubin NEG Urine Urobilinogen LESS THAN 2.0 Urine Leukocyte Esterase SMALL Urine RBC 1 Urine WBC 4 Urine Squamous Epithelial Cells <1 Urine Amorphous Sediment FEW Urine Bacteria OCC Urine Hyaline Casts 1 Microscopic Urinalysis Comment CULT NOT INDICATED Urine Osmolality 446 Urine Random Sodium 41 Erythrocyte Sedimentation Rate 61 White Blood Count 8.6 Red Blood Count 3.10 Hemoglobin 9.5 Hematocrit 27.2 Mean Corpuscular Volume 87.7 Mean Corpuscular Hemoglobin 30.7 Mean Corpuscular Hemoglobin Concent 35.0 Red Cell Distribution Width 14.5 Platelet Count 374 Mean Platelet Volume 6.9 Neutrophils (%) (Auto) 26.2 Lymphocytes (%) (Auto) 49.1 Monocytes (%) (Auto) 8.4 Eosinophils (%) (Auto) 15.2 Basophils (%) (Auto) 1.1 Neutrophils # (Auto) 2.3 Lymphocytes # (Auto) 4.2 Monocytes # (Auto) 0.7 Eosinophils # (Auto) 1.3 Basophils # (Auto) 0.1 CBC Comment AUTO DIFF Differential Comment AUTO DIFF CONFIRMED Platelet Estimate NORMAL Platelet Morphology Comment NORMAL Red Cell Morphology Comment NORMAL Blood Urea Nitrogen 62 Creatinine 1.84 Random Glucose 167 Total Protein 6.7 Albumin 2.6 Calcium Level 9.4 Alkaline Phosphatase 60 Aspartate Amino Transf (AST/SGOT) 15 Alanine Aminotransferase (ALT/SGPT) 16 Total Bilirubin 0.1 Sodium Level 145 Potassium Level 3.2 Chloride Level 120 Carbon Dioxide Level 13.2 Anion Gap 12 Estimat Glomerular Filtration Rate 33 Troponin I 0.09 Result Diagram: 02/02/1815 02/02/1815 Lidya Gill [facility] Feb 02, 2018 10:32
--- NOTE | 2018-02-02 10:54 | MB ---
cc: Олег Huitron MD DATE OF CONSULT: 02/01/2018 REASON FOR CONSULTATION: Acute kidney injury with elevated BUN and creatinine. HISTORY OF PRESENT ILLNESS: This is a 67-year-old female with past medical history diabetes mellitus, hypertension, ischemic heart disease, history of recurrent urinary tract infection, patient with history of pyelonephritis and acute kidney injury, was brought to the hospital because of generalized weakness and decreased oral intake. I was called to see the patient because of elevated BUN and creatinine. The patient has history of acute kidney injury and she was seen by me when she was here in October. At that time, her creatinine was as high as 4.6, this was in September, and then it improved and the creatinine stayed in a range of 1.1-1.2 most of the time. The patient has the last creatinine of 1.3, which was in November 2017. Now, she came with a creatinine of 1.2. The patient admits that she has not been eating very well for the last week or so. She has been feeling weak and tired. There is no nausea or vomiting. No history of diarrhea. She denies taking any nonsteroidal anti-inflammatory drug. There is no hematuria or dysuria. She did not notice any decrease in the urine output. PAST MEDICAL HISTORY: Hypertension, diabetes mellitus, urinary tract infection with history of pyelonephritis, chronic kidney disease with acute kidney injury, congestive heart failure, anemia, patent foramen ovale. PAST SURGICAL HISTORY: Perinephric fluid collection and drainage with a tube, history of section. REVIEW OF SYSTEMS: There is no history of fever. She has generalized weakness, feeling tired. There has been no nausea, no vomiting, no abdominal pain, no history of diarrhea. Denies any shortness of breath, no chest pain, no palpitation, no dysuria, hematuria, . She has decreased appetite, not eating well. Notice some decrease in the urine output. SOCIAL HISTORY: The patient , here with her . There is no history of smoking, alcohol. FAMILY HISTORY: Noncontributory. ALLERGIES: TO CLONIDINE AND METFORMIN. MEDICATIONS: Currently, she is on the following medications; 1. Normal saline at 100 an hour. 2. Ferrous sulfate 325 milligrams twice a day. 3. Bridgette-Colace 1 tablet twice a day. 4. Amlodipine 10 milligrams once a day. 5. Aspirin 325 milligrams daily. 6. Lopid 300 milligrams once a day. 7. Protonix 40 milligrams daily. 8. Potassium chloride 20 meq p.o. daily. 9. Pravachol 10 milligrams once a day. 10. Neurontin 600 milligrams once a day. 11. DuoNeb nebulizer. 12. Heparin 5,000 units subcutaneous q12h. 13. Coreg 12.5 milligrams q12h. 14. Insulin as per sliding scale. 15. Zofran as needed. PHYSICAL EXAMINATION: GENERAL: The patient is awake, alert. She is not in no acute distress. VITAL SIGNS: Her last blood pressure was 162/62, temperature is 97.5, oxygen saturation on 2 liters of nasal canula 100%. HEENT: Pupils are mid contricted. Nonicteric sclerae. Conjunctiva normal. NECK: Supple. JVD is not elevated. LUNGS: The patient has bilateral good air entry with occasional wheezing. CARDIOVASCULAR: S1, S2, regular rhythm. ABDOMEN: Soft, lax. There is no tenderness. Bowel sounds positive. EXTREMITIES: There is no pedal edema. LABORATORY DATA: WBC count is 8.4, hemoglobin 10.4, platelet count of 439, neutrophils 39.4%. Sodium is 142, potassium 3.7, chloride 116, bicarb 14.2, BUN 81, creatinine 2.25, hemoglobin A1c is 7.5, calcium 10.8, AST 13, ALT 17. C-reactive protein is 0.54, total protein is 8.5, albumin is 3.3. Urinalysis showing protein of 100, a small leukocyte esterase, RBC 1, WBC 4. IMAGING STUDY: The patient had chest x-ray done, which shows lung appears clear. ASSESSMENT AND PLAN: 1. Acute kidney injury. 2. Metabolic acidosis. 3. Hypercalcemia. 4. Generalized weakness and dehydration. 5. Hypertension. 6. Diabetes mellitus. 7. Peripheral neuropathy. The patient has elevated BUN and creatinine, most likely she has underlying prerenal azotemia. I will check the urine sodium osmolality. She also has a low bicarbonate, which should improve with the improvement in the renal function. If it is not getting better than I would add the bicarb and IV fluid. I will order nephrotoxins, follow the urine output and the BUN, creatinine. Encourage overall intake. Thank you for the consultation. I will follow the patient while she is in the hospital. MD RAFAELA Adams/LUZ MARINA , 09:19 PM , 10:04 PM
--- NOTE | 2018-02-02 12:38 | PD.RAD ---
Post Procedure Progress Note Pre Procedure Diagnosis: (1) Generalized weakness (2) Peripheral neuropathy Post Procedure Diagnosis: (1) Generalized weakness (2) Peripheral neuropathy Procedure Date: Feb 02, 2018 Supervising Radiologist: Gerard Dorantes Estimated blood loss: none Anesthesia: Local Plan of Activity Patient to Unit: Nursing Unit Patient Condition: Poor Additional Comments: LP completed without difficulty. Opening pressure 12cm/h20 20cc of clear csf removed. Full dictated report to follow See PACS Report for procedural detail/treatment Gerard Dorantes MD Feb 02, 2018 12:38
--- NOTE | 2018-02-02 13:21 | HHI.NPPN ---
Subjective History of Present Illness This is a 67-year-old female with past medical history diabetes mellitus, hypertension, ischemic heart disease, history of recurrent urinary tract infection, patient with history of pyelonephritis and acute kidney injury, was brought to the hospital because of generalized weakness and decreased oral intake. I was called to see the patient because of elevated BUN and creatinine. The patient has history of acute kidney injury and she as seen by me when she was here in October. At that time, her creatinine was as high as 4.6, this was in September, and then it improved and the creatinine stayed in a range of 1.1-1.2 most of the time. The patient has the last creatinine of 1.3, which was in November 2017. Now, she came with a creatinine of 1.2. The patient admits that she has not been eating very well for the last week or so.She has been feeling weak and tired. There is no nausea or vomiting. No history of diarrhea. She denies taking any nonsteroidal anti-inflammatory drug. There is no hematuria or dysuria. She did not notice any decrease in the urine output. Additional Remarks Reports poor appetite. Denies any SOB. No edema noted (Lidya Gill) Additional Remarks Patient seen and examined. Creatinine is improving. (Pita Huitron MD) Review of Systems General Constitutional: Fatigue General Remarks weakness (Lidya Gill) Cardiovascular Cardiac Remarks Denies any CP (Lidya Gill) Gastrointestinal GI Remarks Denies any abdominal pain (Lidya Gill) Genitourinary Remarks Denies dysuria (Lidya Gill) Objective Data Data Vital Signs Date Time Temp Pulse Resp B/P (MAP) Pulse Ox O2 Delivery O2 Flow Rate FiO2 02/02/18 08:00 98.4 60 60 131/63 (85) 98 02/02/18 04:00 97.2 66 18 160/62 (94) 99 02/02/18 00:00 98.4 73 16 169/74 (105) 97 02/01/18 20:00 97.5 75 18 143/66 (91) 96 02/01/18 16:00 77 18 162/62 (95) 100 Nasal Cannula 2.00 02/01/18 13:44 75 17 156/65 (95) 96 Room Air (Lidya Gill) -: 02/02/18 0615 02/02/18 0615 Imaging Last Impressions Chest X-Ray 02/01/18 0830 Signed Impressions: Service Date/Time: Thursday, February 01, 2018 09:23 - CONCLUSION: 1. No acute cardiopulmonary findings. Gerard Dorantes MD (Lidya Gill) Physical Exam General Appearance: No Acute Distress (Lidya Gill) Throat Throat Exam: Oral Mucosa [place] & Moist (Lidya Gill) Pulmonary Resp Exam: Clear Bilaterally, Breath Sounds Equal (Lidya Gill) Cardiology CV Exam: Regular (Lidya GlilP) Gastrointestinal/Abdomen GI Exam: Soft (Lidya Gill) Genitourinary Exam: Flank Non-Tender (Lidya Gill) Integumentary Skin Exam: Warm, Dry (Lidya Gill) Extremeties Extremities Exam: No Edema (Lidya Gill) Neurologic Neuro Exam: Alert, Awake Neuro Remarks speech delayed (Lidya Gill) Psychiatric Psych Exam: Appropriate Responses (Lidya Gill) Assessment/Plan Assessment Summary: DELLA/Acute Renal Failure, CKD Stage III Electrolyte Assessment: Hypokalemia Problem List: (1) DELLA (acute kidney injury) ICD Codes: N17.9 - Acute kidney failure, unspecified Status: Acute Plan: Acute kidney injury most likely related to prerenal azotemia with poor intake HCO3 slightly decreased Hypokalemia potassium replacement given. Creatinine is improving Avoid nephrotoxins, Follow the urine output and the BUN, creatinine Encourage overall intake. LP today (2) Generalized weakness ICD Codes: R53.1 - Weakness Status: Acute (3) Peripheral neuropathy ICD Codes: G62.9 - Polyneuropathy, unspecified Status: Acute (4) Diabetes mellitus ICD Codes: E11.9 - Type 2 diabetes mellitus without complications Status: Chronic (5) Hypertension ICD Codes: I10 - Essential (primary) hypertension Status: Chronic (Lidya Gill) Problem Qualifiers (1) Peripheral neuropathy: Qualified Codes: G62.9 - Polyneuropathy, unspecified (2) Diabetes mellitus: Qualified Codes: E11.22 - Type 2 diabetes mellitus with diabetic chronic kidney disease (3) Hypertension: Qualified Codes: I10 - Essential (primary) hypertension Lidya Gill Feb 02, 2018 13:21 Pita Huitron MD Feb 02, 2018 21:33
[2018-02-02] MEDS ORDERED: POTASSIUM CHLORIDE 20 MEQ CONTROLLED RELEASE TAB PO ONE (13:30)
[2018-02-02 13:49] LABS: TOTAL PROTEIN,CSF 121.9 MG/DL (15.0-45.0)
--- NOTE | 2018-02-02 13:53 | RADRPT ---
EXAM DATE/TIME: 02/02/2018 12:47 [facility] COMPARISON: MRI BRAIN W/O CONTRAST, September 21, 2017, 16:48. INDICATIONS : Encephalitis. Progressing weakness. MEDICAL HISTORY : Congestive heart failure. SURGICAL HISTORY : Kidney stent. ENCOUNTER: Subsequent ACUITY: 2 day PAIN SCORE: 0/10 LOCATION: head. TECHNIQUE: Multiplanar, multisequence MRI of the brain was performed without contrast. FINDINGS: CEREBRUM: The ventricles are normal for age. No evidence of midline shift, mass lesion, hemorrhage or acute in farction. No extraaxial fluid collections are seen. The pituitary gland and suprasellar cistern are normal in configuration. WHITE MATTER: Minimal, periventricular white matter changes. POSTERIOR FOSSA: The cerebellum and brainstem are intact. The 4th ventricle is midline. The cerebellopontine angle is unremarkable. The cerebellar tonsils are normal in position. DIFFUSION IMAGING: No focal areas of restricted diffusion are seen. No evidence of acute infarction. EXTRACRANIAL: The visualized portions of the orbits and paranasal sinuses are unremarkable. CONCLUSION: Minimal periventricular white matter changes. Otherwise negative. Rony Sarabia MD on February 02, 2018 at 13:50 Board Certified Radiologist. This report was verified electronically.
--- NOTE | 2018-02-02 14:00 | RADRPT ---
EXAM DATE/TIME: 02/02/2018 13:25 [facility] COMPARISON: No previous studies available for comparison. INDICATIONS : Patient with a hisory of Guillain Leon needs lumbar puncture. MEDICAL HISTORY : High Cholesterol CHF Diabetes Headaches HTN Pyelonephritis Gastroparesis Frequent UTIs Anemia Patent foramen ovale SURGICAL HISTORY : Right kidney stent ENCOUNTER: Initial ACUITY: 1 day PAIN SCORE: 3/10 LOCATION: low back LUMBAR PUNCTURE TIME: 1226 hours FLUORO TIME: 1.7 minutes ACCESS LEVEL: L3-4 OPENING PRESSURE: 12 cm of water CLOSING PRESSURE: Not requested. FLUID: 20 cc of CSF was collected and sent to the laboratory for analysis. PROCEDURE : 1. Fluoroscopic guided lumbar puncture. 2. Recording of opening pressure. The risks, benefits and alternatives to the procedure were explained to the patient and . Verb al and written consent was obtained. The site was prepped in sterile fashion. Full sterile techniqu e was used, including cap, mask, sterile gloves and gown and a large sterile sheet. Hand hygiene and 2% chlorhexidine and/or betadine/alcohol prep was utilized per protocol for cutaneous antisepsis. T he skin and subcutaneous tissues were infiltrated with local anesthetic solution. With fluoroscopic guidance the lumbar thecal sac was punctured at the above level described above and the opening pressure was recorded. The above described fluid was removed without difficulty. The patient tolerated the procedure well and there were no complications. CONCLUSION: Uncomplicated fluoroscopically guided lumbar puncture with pressures as above. Gerard Dorantes MD on February 02, 2018 at 13:58 Board Certified Radiologist. This report was verified electronically.
[2018-02-02 14:12] LABS: CSF LYMPHOCYTES 83 %; CSF MONOCYTES 17 %; CSF NEUTROPHILS 0 %; RBC TUBE #4 8 /MM3; SUPERNATE COLOR TUBE #1 CLEAR (CLEAR); WBC TUBE #4 3 /MM3 (0-10)
--- NOTE | 2018-02-02 14:19 | MB ---
cc: Tessie Dow MD DATE OF CONSULT: 02/02/2018 DATE OF : 1950 AGE: 67-years old. REASON FOR CONSULT: Pain in her legs and weakness. HISTORY OF PRESENT ILLNESS: The patient is a 67-year-old woman with diabetes who has been having weakness for the last couple of weeks. She has been using a walker. Prior to that she states she was not. She actually states she saw a neurologist but cannot tell me who. She stated it was a male as an outpatient. She has denied ever having an EMG/nerve conduction. She has just had her gabapentin increased from 300 to 600 daily and she does not feel there is any improvement. She states her legs feel like pins and needles and burning and due to that she feels like she cannot ambulate. She declines any sensation in her abdomen or in her arms. She denies any diarrhea, any recent vaccinations or upper respiratory infections. After discussion with her attending her weakness has progressed over a week or so to the point of gait difficulty. PAST MEDICAL HISTORY: 1. History of diabetes. 2. Hypertension. 3. Hyperlipidemia. 4. Pyelonephritis. 5. Gastroparesis. 6. Frequent UTIs. 7. Anemia. 8. CHF. 9. PFO. HOME MEDICATIONS: Please refer to JAN. ALLERGIES: METFORMIN. CLONIDINE. PHYSICAL EXAMINATION: VITAL SIGNS: Temperature is 98.4, pulse 60, respiratory rate 60, blood pressure 131/63. GENERAL: She is awake and alert. She is fluent. NEUROLOGIC EXAMINATION: Pupils reactive. Visual laguna full. Face symmetric. Tongue midline. She does not have any facial diplegia. Motor: Upper extremities intact, 5/5. Cerebellar: [id number] - no past pointing. Reflexes are 2+ in the upper extremities, 2-3+ upper extremities with no Ventura sign. No significant atrophy. Lower extremity strength - She can lift them up anti-gravity without difficulty but there is pain, she states, in her feet. She can maintain some resistance. At best she is a 4/5 proximally and distally. There is no foot drop. Toes are neutral. Reflexes are 2-3+ at the knees, trace at the ankles; more difficult to elicit certainly at the ankles because of her positioning causing her more pain but she has good position sense. Pinprick is intact. Light touch is intact. Gait is withheld at this time. She is in the ICU post LP. LABORATORY DATA: Labs are reviewed. Chemistries: Her GFR is 33, glucose 167. Her A1c is 7.5. Albumin 2.6. CBC: Hemoglobin 9.5, platelets 374,000. Sed rate is 61. Her CRP is 0.54. Urine - No culture indicated. Spinal tap unfortunately is still pending. Report serology HSV1 and 2 pending. IMAGING STUDIES: She had a brain MRI. I did not see anything acute but I will await for the radiologic report. IMPRESSION AND PLAN: Lower extremity weakness, more concerning for possible AICD. Neuropathy is still a consideration given her diabetes. I will go ahead and order some neuropathy labs as well as change her gabapentin to 300 mg three times per day. However, we have to monitor her GFR with gabapentin. Other options would be trying her possibly on Lyrica. However, that too will have to be monitored renal dosing as well. In the event that she fails the gabapentin, Cymbalta would be another option, again monitoring her GFR. If gabapentin is marginal but cannot be increased, then I would consider adding low-dose Cymbalta to her regimen. She will need an outpatient EMG/nerve conduction study of her lower extremities and possibly the upper. I think her sed rate is multifactorial. However, at this point we will go ahead and do the lab work. I did change her gabapentin dose. LP results reviewed and after seeing her elevated protein count AICD is certainly possible. I would give a trial of plasmapheresis 3-5 exchanges and see how she does. Discussed with her attending as well as hematolgy. MD KONRAD Bobby/ESTEFANY , 01:42 PM , 02:18 PM KEYON
[2018-02-02 15:39] LABS: THYROXINE (T4) 4.6 MCG/DL (4.8-13.9)
--- NOTE | 2018-02-02 16:26 | OTSOAPIP ---
TIME SESSION COMPLETED: AM TREATMENT TIME: 0 MINS. CHART REVIEWED. RECEIVED ORDERS FROM DR FELY RIVERS, PATIENT HAS UNDERWENT A CHANGE IN MEDICAL STATUS AND WAS TRANSFER TO THE INTENSIVE MEDICAL UNIT. PATIENT WILL REQUIRE RESTART ORDERS WHEN MEDICALLY STABLE PLAN: OCCUPATIONAL THERAPY SIGNING OFF WILL AWAIT NEW ORDERS INTERDISCIPLINARY COMMUNICATION: NURSING WAS INFORMED OF THE ABOVE Therapist: ABISAI BLAKELY OTR/Sunday Signature on file
[2018-02-02] MEDS: GABAPENTIN 300 MG CAP PO SCH (18:00)
[2018-02-02] MEDS ORDERED: CHLORHEXIDINE GLUCONATE 2 % 1 PACK (2 CLOTHS)(extra cloths) TOPICAL PRN (22:45)
[2018-02-03] VITALS (13 sets, daily range): BP systolic 116–149; BP diastolic 57–65; PULSE 58–72; RESP 12–19; TEMP 98–98.6; O2SAT 98–100
[2018-02-03] MEDS: CHLORHEXIDINE GLUCONATE 2 % 1 PACK (2 CLOTHS)(taper/protocol) TOPICAL SCH (04:00)
[2018-02-03] MEDS: ACETAMINOPHEN/HYDROcodone 325 MG/10 MG TAB PO PRN ×3 (04:13→17:21)
[2018-02-03 05:45] LABS: AUTOMATED NEUTROPHIL # 2.8 TH/MM3 (1.8-7.7); BASOPHIL # 0.1 TH/MM3 (0-0.2); BASOPHIL % 1.1 % (0.0-2.0); EOSINOPHIL # 1.2 TH/MM3 (0-0.4); EOSINOPHIL % 15.1 % (0.0-4.0); HEMATOCRIT 30.5 % (35.0-46.0); HEMOGLOBIN 10.5 GM/DL (11.6-15.3); LYMPH % 41.8 % (9.0-44.0); LYMPHOCYTE # 3.4 TH/MM3 (1.0-4.8); MEAN CELL VOLUME 88.6 FL (80.0-100.0); MEAN CORPUSCULAR HEMOGLOBIN 30.7 PG (27.0-34.0); MEAN CORPUSCULAR HGB CONC 34.6 % (32.0-36.0); MEAN PLATELET VOLUME 7.1 FL (7.0-11.0); MONO % 8.3 % (0.0-8.0); MONOCYTE # 0.7 TH/MM3 (0-0.9); NEUT % 33.7 % (16.0-70.0); PLATELET COUNT 392 TH/MM3 (150-450); RED BLOOD COUNT 3.44 MIL/MM3 (4.00-5.30); RED CELL DISTRIBUTION WIDTH 14.4 % (11.6-17.2); WHITE BLOOD COUNT 8.3 TH/MM3 (4.0-11.0)
[2018-02-03 05:52] LABS: PROTHROMBIN TIME - PATIENT 10.4 SEC (9.8-11.6)
[2018-02-03 06:24] LABS: ALBUMIN 2.7 GM/DL (3.4-5.0); ALKALINE PHOSPHATASE 71 U/L (45-117); ALT (GPT) 21 U/L (10-53); AST (GOT) 17 U/L (15-37); BICARBONATE 14.6 MEQ/L (21.0-32.0); BLOOD UREA NITROGEN 51 MG/DL (7-18); CALCIUM 10.2 MG/DL (8.5-10.1); CHLORIDE 120 MEQ/L (98-107); CREATININE 1.57 MG/DL (0.50-1.00); GLOMERULAR FILTRATION RATE 40 ML/MIN (>89); GLUCOSE,RANDOM 132 MG/DL (74-106); SODIUM (NA) 144 MEQ/L (136-145); TOTAL BILIRUBIN ADULT 0.2 MG/DL (0.2-1.0); TOTAL PROTEIN 6.9 GM/DL (6.4-8.2)
[2018-02-03] MEDS: RESP: ALBUTEROL 2.5 MG/IPRATROPIUM 0.5 MG NEB (SCH) NEB ×2 (07:11→20:00)
[2018-02-03] MEDS: INSULIN ASPART SUPPLEMENTAL SCALE SQ SCH ×4 (08:00→22:50)
[2018-02-03] MEDS: DOCUSATE SODIUM 50 MG/SENNA 8.6 MG TAB PO SCH ×2 (08:18→21:05)
[2018-02-03] MEDS: GABAPENTIN 300 MG CAP PO SCH ×3 (08:18→17:21)
[2018-02-03] MEDS: FERROUS SULFATE 325 MG (65 MG ELEMENTAL IRON) TAB PO SCH ×2 (08:18→21:05)
[2018-02-03] MEDS: GEMFIBROZIL 600 MG TAB PO SCH (08:18)
[2018-02-03] MEDS: POTASSIUM CHLORIDE 20 MEQ CONTROLLED RELEASE TAB PO SCH (08:18)
[2018-02-03] MEDS: PANTOPRAZOLE SOD 40 MG DELAYED RELEASE TAB PO SCH (08:18)
[2018-02-03] MEDS: CARVEDILOL 12.5 MG TAB PO SCH ×2 (08:19→21:05)
[2018-02-03] MEDS: SODIUM CHLORIDE 0.9% FLUSH 10 ML FLUSH IV FLUSH SCH ×2 (08:19→21:05)
[2018-02-03] MEDS: PRAVASTATIN SOD 10 MG TAB PO SCH (08:20)
[2018-02-03] MEDS ORDERED: HEPARIN SODIUM - IV 2,000 UNITS/2 ML VIAL IV FLUSH PRN (09:45)
[2018-02-03] MEDS ORDERED: SODIUM CHLORIDE 0.9% FLUSH 10 ML FLUSH IV FLUSH PRN (09:45)
--- NOTE | 2018-02-03 09:47 | PD.RAD ---
Post Procedure Progress Note Pre Procedure Diagnosis: (1) DELLA (acute kidney injury) Post Procedure Diagnosis: (1) DELLA (acute kidney injury) Procedure Date: Feb 03, 2018 Supervising Radiologist: Corey Millan JR Proceduralist/Assist: Casey Amezcua, RT(R), Harjeet Jimenes RT(R) Anesthesia: Local Plan of Activity Patient to Unit: Nursing Unit Patient Condition: Good See PACS Report for procedural detail/treatment Central Venous Access Device Procedure 1 Right Internal Jugular Hemodialysis Catheter Non-Tunneled Placement dual lumen English: 14 Findings: Placed right IJ vascath. In good position and functions well. OK to use. Jr. Monty,Corey Carbone MD Feb 03, 2018 09:47
--- NOTE | 2018-02-03 10:03 | HHI.NPPN ---
Subjective History of Present Illness This is a 67-year-old female with past medical history diabetes mellitus, hypertension, ischemic heart disease, history of recurrent urinary tract infection, patient with history of pyelonephritis and acute kidney injury, was brought to the hospital because of generalized weakness and decreased oral intake. I was called to see the patient because of elevated BUN and creatinine. The patient has history of acute kidney injury and she as seen by me when she was here in October. At that time, her creatinine was as high as 4.6, this was in September, and then it improved and the creatinine stayed in a range of 1.1-1.2 most of the time. The patient has the last creatinine of 1.3, which was in November 2017. Now, she came with a creatinine of 1.2. The patient admits that she has not been eating very well for the last week or so.She has been feeling weak and tired. There is no nausea or vomiting. No history of diarrhea. She denies taking any nonsteroidal anti-inflammatory drug. There is no hematuria or dysuria. She did not notice any decrease in the urine output. Additional Remarks . Has mild SOB. Weakness noted in all four extremities. (Lidya Gill) Review of Systems General Constitutional: Fatigue General Remarks weakness (Lidya Gill) Respiratory Respiratory Remarks mild SOB (Lidya Gill) Cardiovascular Cardiac Remarks Denies any CP (Lidya Gill) Gastrointestinal GI Remarks Denies any abdominal pain (Lidya Gill) Genitourinary Remarks Denies dysuria (Lidya Gill) Objective Data Data Vital Signs Date Time Temp Pulse Resp B/P (MAP) Pulse Ox O2 Delivery O2 Flow Rate FiO2 02/03/18 07:12 99 02/03/18 06:00 59 02/03/18 04:00 98.3 63 19 129/60 (83) 100 02/03/18 04:00 63 02/03/18 02:00 72 02/03/18 00:00 98.6 58 13 116/57 (76) 99 02/03/18 00:00 58 02/02/18 23:39 99 21 02/02/18 22:00 64 02/02/18 20:00 98.4 65 22 154/65 (94) 99 02/02/18 20:00 65 02/02/18 18:00 57 02/02/18 17:00 58 02/02/18 16:00 97.9 57 9 129/60 (83) 99 02/02/18 16:00 56 02/02/18 15:00 56 17 91/50 (64) 99 02/02/18 14:00 63 02/02/18 14:00 98.2 63 16 124/96 (105) 100 (Lidya Gill) -: 02/03/18 0440 02/03/18 0440 Microbiology 02/02/18 Gram Stain - Final, Resulted 02/02/18 CSF Culture - Preliminary, Resulted NO GROWTH IN 24 HOURS. Imaging Last Impressions Lumbar Puncture Fluoroscopy 02/02/18 0000 Signed Impressions: Service Date/Time: January 13:25 - CONCLUSION: Uncomplicated fluoroscopically guided lumbar puncture with pressures as above. Gerard Dorantes MD Brain MRI 02/02/18 0000 Signed Impressions: Service Date/Time: January 12:47 - CONCLUSION: Minimal periventricular white matter changes. Otherwise negative. Rony Sarabia MD Chest X-Ray 02/01/18 0830 Signed Impressions: Service Date/Time: Thursday, February 01, 2018 09:23 - CONCLUSION: 1. No acute cardiopulmonary findings. Gerard Dorantes MD (Lidya Gill) Physical Exam General Appearance: No Acute Distress (Lidya Gill) Throat Throat Exam: Oral Mucosa [place] & Moist (Lidya Gill) Pulmonary Resp Exam: Breath Sounds Equal, Decreased Bases (Lidya Gill) Cardiology CV Exam: Regular (Lidya Gill) Gastrointestinal/Abdomen GI Exam: Soft, Non-Tender, Distended (Lidya Gill) Genitourinary Exam: Flank Non-Tender (Lidya Gill) Integumentary Skin Exam: Warm, Dry (Lidya Gill) Extremeties Extremities Exam: No Edema (Lidya Gill) Neurologic Neuro Exam: Alert, Awake Neuro Remarks speech delayed (Lidya Gill) Assessment/Plan Assessment Summary: DELLA/Acute Renal Failure, CKD Stage III Electrolyte Assessment: Hypokalemia Problem List: (1) DELLA (acute kidney injury) ICD Codes: N17.9 - Acute kidney failure, unspecified Status: Acute Plan: Acute kidney injury most likely related to prerenal azotemia with poor intake Creatinine is improving at 1.57 down from 1.84 Non oliguric Neurology note noted Vas cath placement today and plasmapheresis ordered for 3-5 doses. Avoid nephrotoxins, Follow the urine output and the BUN, creatinine (2) Generalized weakness ICD Codes: R53.1 - Weakness Status: Acute (3) Peripheral neuropathy ICD Codes: G62.9 - Polyneuropathy, unspecified Status: Acute (4) Diabetes mellitus ICD Codes: E11.9 - Type 2 diabetes mellitus without complications Status: Chronic (5) Hypertension ICD Codes: I10 - Essential (primary) hypertension Status: Chronic (Lidya Gill) Problem List: (1) DELLA (acute kidney injury) ICD Codes: N17.9 - Acute kidney failure, unspecified Status: Acute Plan: Acute kidney injury most likely related to prerenal azotemia with poor intake Creatinine is improving at 1.57 down from 1.84 Non oliguric Neurology note noted Vas cath placement today and plasmapheresis ordered for 3-5 doses. Avoid nephrotoxins, Follow the urine output and the BUN, creatinine. Patient seen and examined, agree with above. Started on Plasmapheresis. (2) Generalized weakness ICD Codes: R53.1 - Weakness Status: Acute (3) Peripheral neuropathy ICD Codes: G62.9 - Polyneuropathy, unspecified Status: Acute (4) Diabetes mellitus ICD Codes: E11.9 - Type 2 diabetes mellitus without complications Status: Chronic (5) Hypertension ICD Codes: I10 - Essential (primary) hypertension Status: Chronic (Pita Huitron MD) Problem Qualifiers (1) Peripheral neuropathy: Qualified Codes: G62.9 - Polyneuropathy, unspecified (2) Diabetes mellitus: Qualified Codes: E11.22 - Type 2 diabetes mellitus with diabetic chronic kidney disease (3) Hypertension: Qualified Codes: I10 - Essential (primary) hypertension Lidya Gill Feb 03, 2018 10:03 Pita Huitron MD Feb 04, 2018 09:20
[2018-02-03 10:05] LABS: HSV 1,PCR Negative (Negative)
--- NOTE | 2018-02-03 10:26 | RADRPT ---
EXAM DATE/TIME: 02/03/2018 09:03 [place] COMPARISON: No previous studies available for comparison. INDICATIONS : Patient presents with generalized weakness in need of central venous catheter placement for plasma ex change. MEDICAL HISTORY : DM-poorly controlled, noncompliant HTN HLD Pyelonephritis Gastroparesis Frequent UTI (multi-bug resistant UTI, pseudomonas) Anemia CHF Patent foramen ovale SURGICAL HISTORY : C sec (1990) Renal abscess ENCOUNTER: Subsequent ACUITY: 2 days PAIN SCORE: 0/10 LOCATION: N/A FLUORO TIME: 0.1 minutes IMAGE SERIES: 0 ACCESS: Right internal jugular vein MEDICATION(S): 1.) 2,200 units Heparin IV DEVICE(S): 1.) 14 [place] dual lumen 15 cm Schon catheter PROCEDURE : 1. Ultrasound guided venipuncture. 2. Fluoroscopic guidance. 3. Central line placement. The risks, benefits and alternatives to the procedure were explained and verbal and written consent w as obtained. The site was prepped in sterile fashion. Full sterile technique was used, including ca p, mask, sterile gloves and gown and a large sterile sheet. Hand hygiene and 2% chlorhexidine prep w as utilized per protocol for cutaneous antisepsis with appropriate dry time for site. Sterile gel an d sterile probe cover were utilized for ultrasound guidance. The skin and subcutaneous tissues were infiltrated with local anesthetic solution. A suitable site a jojo the vein was selected with ultrasound and fluoroscopic guidance. A small incision was made. Th e vein was accessed under direct ultrasound visualization using the micropuncture technique. The lorne ropuncture set was exchanged for a 0.035 wire. The tract was dilated. The catheter was advanced int o position under direct fluoroscopic visualization. The catheter was fixed in place with suture and a sterile dressing was applied. The patient tolerated the procedure well and there were no complications. CONCLUSION: Uncomplicated line placement as above. Corey Millan Jr., MD on February 03, 2018 at 10:24 Board Certified Radiologist. This report was verified electronically.
[2018-02-03] MEDS ORDERED: SODIUM CHLORIDE 0.9% 10 ML FLUSH IV FLUSH PRN (10:30)
[2018-02-03] MEDS ORDERED: HEPARIN SODIUM - 1000 UNITS/ML 10 ML VIAL IV FLUSH PRN (10:30)
[2018-02-03] MEDS ORDERED: SODIUM CHLOR 0.9% 1000 ML IV PRN (10:30)
[2018-02-03] MEDS ORDERED: HEPARIN SODIUM - 10,000 UNITS/ML 1ML VIAL IV FLUSH PRN (10:30)
[2018-02-03] MEDS ORDERED: SODIUM CHLOR 0.9% IV SCH (11:00)
[2018-02-03] MEDS ORDERED: ALBUMIN 5% IV SCH (11:00)
[2018-02-03] MEDS ORDERED: CALCIUM GLUCONATE IV SCH (11:00)
--- NOTE | 2018-02-03 12:44 | PD.ONC.PN ---
Subjective Subjective Remarks Afebrile overnight. Patient resting in bed quietly. states she still has the burning sensation in her lower extremities and is unable to ambulate. received vas-cath this AM. Objective Data Date Time Temp Pulse Resp B/P (MAP) Pulse Ox O2 Delivery O2 Flow Rate FiO2 02/03/18 10:00 68 02/03/18 08:00 60 02/03/18 08:00 98.1 60 14 149/64 (92) 100 02/03/18 07:12 99 02/03/18 06:00 59 02/03/18 04:00 98.3 63 19 129/60 (83) 100 02/03/18 04:00 63 02/03/18 02:00 72 02/03/18 00:00 98.6 58 13 116/57 (76) 99 02/03/18 00:00 58 02/02/18 23:39 99 21 02/02/18 22:00 64 02/02/18 20:00 98.4 65 22 154/65 (94) 99 02/02/18 20:00 65 02/02/18 18:00 57 02/02/18 17:00 58 02/02/18 16:00 97.9 57 9 129/60 (83) 99 02/02/18 16:00 56 02/02/18 15:00 56 17 91/50 (64) 99 02/02/18 14:00 63 02/02/18 14:00 98.2 63 16 124/96 (105) 100 02/03/18 02/03/18 02/03/18 07:00 15:00 23:00 Intake Total 240 ml Balance 240 ml Result Diagram: 02/03/1843902/03/18 0440 Laboratory Results Laboratory Tests Test 02/02/18 13:20 02/02/18 14:38 02/03/18 04:40 Nasal Screen MRSA (PCR) MRSA NOT DETECTED Total Protein 6.8 GM/DL 6.9 GM/DL Vitamin B12 Level 967 PG/ML Thyroxine (T4) 4.6 MCG/DL Thyroid Stimulating Hormone 3rd Gen 1.160 uIU/ML White Blood Count 8.3 TH/MM3 Red Blood Count 3.44 MIL/MM3 Hemoglobin 10.5 GM/DL Hematocrit 30.5 % Mean Corpuscular Volume 88.6 FL Mean Corpuscular Hemoglobin 30.7 PG Mean Corpuscular Hemoglobin Concent 34.6 % Red Cell Distribution Width 14.4 % Platelet Count 392 TH/MM3 Mean Platelet Volume 7.1 FL Neutrophils (%) (Auto) 33.7 % Lymphocytes (%) (Auto) 41.8 % Monocytes (%) (Auto) 8.3 % Eosinophils (%) (Auto) 15.1 % Basophils (%) (Auto) 1.1 % Neutrophils # (Auto) 2.8 TH/MM3 Lymphocytes # (Auto) 3.4 TH/MM3 Monocytes # (Auto) 0.7 TH/MM3 Eosinophils # (Auto) 1.2 TH/MM3 Basophils # (Auto) 0.1 TH/MM3 CBC Comment DIFF FINAL Differential Comment Prothrombin Time 10.4 SEC Prothromb Time International Ratio 1.0 RATIO Activated Partial Thromboplast Time 22.4 SEC Blood Urea Nitrogen 51 MG/DL Creatinine 1.57 MG/DL Random Glucose 132 MG/DL Albumin 2.7 GM/DL Calcium Level 10.2 MG/DL Alkaline Phosphatase 71 U/L Aspartate Amino Transf (AST/SGOT) 17 U/L Alanine Aminotransferase (ALT/SGPT) 21 U/L Total Bilirubin 0.2 MG/DL Sodium Level 144 MEQ/L Potassium Level 3.9 MEQ/L Chloride Level 120 MEQ/L Carbon Dioxide Level 14.6 MEQ/L Anion Gap 9 MEQ/L Estimat Glomerular Filtration Rate 40 ML/MIN Culture Results Microbiology Date/Time Source Procedure Growth Status 02/02/18 12:26 Cerebral Spinal Fluid Lumbar Puncture Gram Stain - Final Resulted 02/02/18 12:26 Cerebral Spinal Fluid Lumbar Puncture CSF Culture - Preliminary NO GROWTH IN 24 HOURS. Resulted Imaging Studies Last 24 hours Impressions Catheter Placement X-Ray 02/03/18 0000 Signed Impressions: Service Date/Time: Saturday, February 03, 2018 09:03 - CONCLUSION: Uncomplicated line placement as above. Corey Millan Jr., MD Administered Medications Medications (Trade) Dose Ordered Sig/Alisha Route PRN Reason Start Time Stop Time Status Last Admin Dose Admin Amlodipine Besylate (Norvasc) 10 mg DAILY PO 02/01/18 14:30 02/03/18 08:18 Aspirin (Ecotrin Ec) 325 mg DAILY PO 02/01/18 14:30 Future Hold 02/01/18 15:46 Carvedilol (Coreg) 12.5 mg Q12HR PO 02/01/18 21:00 3/9/18 08:19 Ferrous Sulfate (Ferrous Sulfate) 325 mg BID PO 02/02/18 09:00 02/03/18 08:18 Gemfibrozil (Lopid) 300 mg DAILY PO 02/02/18 09:00 02/03/18 08:18 Acetaminophen/ Hydrocodone Bitart ([place] 10-325 Mg) 1 tab Q4H PRN PO PAIN SCALE 1-10 02/01/18 14:30 02/03/18 11:13 Albuterol/ Ipratropium (Duoneb Neb) 1 ampule BID NEB NEB 02/01/18 21:00 02/03/18 07:11 Pantoprazole Sodium (Protonix) 40 mg DAILY PO 02/02/18 09:00 02/03/18 08:18 Potassium Chloride (KCl) 20 meq DAILY PO 02/02/18 09:00 02/03/18 08:18 Pravastatin Sodium (Pravachol) 10 mg DAILY PO 02/02/18 09:00 02/03/18 08:20 Sodium Chloride 1,000 ml @ 100 mls/hr Q10H IV 02/01/18 14:34 Future Hold 02/02/18 10:34 Sodium Chloride (NS Flush) 2 ml BID IV FLUSH 02/01/18 21:00 02/03/18 08:19 Heparin Sodium (Porcine) (Heparin Inj) 5,000 units Q12H SQ 02/01/18 16:00 Future Hold 02/02/18 05:27 Senna/Docusate Sodium (Bridgette-Colace) 1 tab BID PO 02/01/18 21:00 02/03/18 08:18 Insulin Aspart (NovoLOG SUPPLEMENTAL SCALE) 1 ACHS SLIDING SCALE SQ 02/01/18 21:00 02/02/18 20:27 Miscellaneous Information Patient in critical care unit? Ass... Q361D .XX 02/02/18 22:45 02/02/18 22:45 Chlorhexidine Gluconate (Chlorhexidine 2% Cloth) 3 pack DAILY@04 TOPICAL 02/03/18 04:00 02/07/18 04:01 02/03/18 04:00 Objective Remarks GENERAL: Middle aged female, lying in bed resting in nad. SKIN: Warm and dry. HEAD: Normocephalic. EYES: No injection or drainage. NECK: Supple, trachea midline. CARDIOVASCULAR: Regular rate and rhythm RESPIRATORY: Breath sounds equal bilaterally. No accessory muscle use. GASTROINTESTINAL: Abdomen soft, non-tender, nondistended. EXTREMITIES: No cyanosis NEUROLOGICAL: awake and alert, normal speech. Assessment/Plan Problem List: (1) plasma exchange Plan: -- start plasma exchange today every other day for a total of five treatments. --replace plasma with albumin. --monitor CBC, coags, BMP Assessment 67y/o female with suspected Guillan-[place]. Hematology consulted to arrange plasma exchange. h/o diabetes, hypertension, Plan 1. PEX #1 today 2. monitor CBC, BMP Nupur Ricketts Feb 03, 2018 12:44
[2018-02-03] MEDS: ACETAMINOPHEN 325 MG TAB PO PRN (12:45)
[2018-02-03] MEDS: methylPREDNISolone SOD SUCC 125 MG/2 ML VIAL IV PUSH SCH (13:00)
--- NOTE | 2018-02-03 13:16 | HHI.FPPN ---
Subjective Remarks NAEON. Ms Cohen can move her arms and legs but there is weakness still. No complaints this morning. Heme/Onc placing vas-cath and will do 1st of 5 plasmapheresis today. No CP, SOB, N/V/D, DVT pain. (Kwame aPvon MD R1) Objective Vitals Vital Signs Date Time Temp Pulse Resp B/P (MAP) Pulse Ox O2 Delivery O2 Flow Rate FiO2 02/03/18 10:00 68 02/03/18 08:00 60 02/03/18 08:00 98.1 60 14 149/64 (92) 100 02/03/18 07:12 99 02/03/18 06:00 59 02/03/18 04:00 98.3 63 19 129/60 (83) 100 02/03/18 04:00 63 02/03/18 02:00 72 02/03/18 00:00 98.6 58 13 116/57 (76) 99 02/03/18 00:00 58 02/02/18 23:39 99 21 02/02/18 22:00 64 02/02/18 20:00 98.4 65 22 154/65 (94) 99 02/02/18 20:00 65 02/02/18 18:00 57 02/02/18 17:00 58 02/02/18 16:00 97.9 57 9 129/60 (83) 99 02/02/18 16:00 56 02/02/18 15:00 56 17 91/50 (64) 99 02/02/18 14:00 63 02/02/18 14:00 98.2 63 16 124/96 (105) 100 I/O 02/02/18 02/02/18 02/02/18 02/03/18 02/03/18 02/03/18 06:59 14:59 22:59 06:59 14:59 22:59 Intake Total 480 ml 400 ml 240 ml Output Total 960 ml 300 ml Balance -480 ml 100 ml 240 ml Intake Oral 480 ml 400 ml 240 ml Output Urine Total 960 ml 300 ml # Voids 2 # Bowel Movements 0 0 0 (Kwame Pavon MD R1) Result Diagram: 02/03/18 0440 02/03/18 0440 Imaging Last 48 hours Impressions Catheter Placement X-Ray 02/03/18 0000 Signed Impressions: Service Date/Time: Saturday, February 03, 2018 09:03 - CONCLUSION: Uncomplicated line placement as above. Corey Millan Jr., MD Lumbar Puncture Fluoroscopy 02/02/18 0000 Signed Impressions: Service Date/Time: January 13:25 - CONCLUSION: Uncomplicated fluoroscopically guided lumbar puncture with pressures as above. Gerard Dorantes MD Brain MRI 02/02/18 0000 Signed Impressions: Service Date/Time: January 12:47 - CONCLUSION: Minimal periventricular white matter changes. Otherwise negative. Rony Sarabia MD Procedures Vas-cath placement 02/03/18 Plasmapheresis 02/03/18 Medications and IVs Current Medications Medications (Trade) Dose Ordered Sig/Alisha Route Start Time Stop Time Status Last Admin (Norvasc) 10 mg DAILY PO 02/01/18 14:30 02/03/18 08:18 (Ecotrin Ec) 325 mg DAILY PO 02/01/18 14:30 Future Hold 02/01/18 15:46 (Coreg) 12.5 mg Q12HR PO 02/01/18 21:00 02/03/18 08:19 (Ferrous Sulfate) 325 mg BID PO 02/02/18 09:00 02/03/18 08:18 (Lopid) 300 mg DAILY PO 02/02/18 09:00 02/03/18 08:18 ([place] 10-325 Mg) 1 tab Q4H PRN PO 02/01/18 14:30 02/03/18 11:13 (Duoneb Neb) 1 ampule BID NEB NEB 02/01/18 21:00 02/03/18 07:11 (Protonix) 40 mg DAILY PO 02/02/18 09:00 02/03/18 08:18 (KCl) 20 meq DAILY PO 02/02/18 09:00 02/03/18 08:18 (Pravachol) 10 mg DAILY PO 02/02/18 09:00 02/03/18 08:20 Sodium Chloride 1,000 ml @ 100 mls/hr Q10H IV 02/01/18 14:34 Future Hold 02/02/18 10:34 (NS Flush) 2 ml UNSCH PRN IV FLUSH 02/01/18 14:45 (NS Flush) 2 ml BID IV FLUSH 02/01/18 21:00 02/03/18 08:19 (Tylenol) 650 mg Q4H PRN PO 02/01/18 14:45 02/03/18 12:45 (Zofran Inj) 4 mg Q6H PRN IVP 02/01/18 14:45 (Heparin Inj) 5,000 units Q12H SQ 02/01/18 16:00 Future Hold 02/02/18 05:27 (Narcan Inj) 0.4 mg UNSCH PRN IV PUSH 02/01/18 14:45 (Bridgette-Colace) 1 tab BID PO 02/01/18 21:00 02/03/18 08:18 (Milk Of Magnesia Liq) 30 ml Q12H PRN PO 02/01/18 14:45 (Senokot) 17.2 mg Q12H PRN PO 02/01/18 14:45 (Dulcolax Supp) 10 mg DAILY PRN RECTAL 02/01/18 14:45 (Lactulose Liq) 30 ml DAILY PRN PO 02/01/18 14:45 (D50w (Vial) Inj) 50 ml UNSCH PRN IV PUSH 02/01/18 17:15 (Glucagon Inj) 1 mg UNSCH PRN OTHER 02/01/18 17:15 (NovoLOG SUPPLEMENTAL SCALE) 1 ACHS SLIDING SCALE SQ 02/01/18 21:00 02/03/18 12:00 Miscellaneous Information Patient in critical care unit? Ass... Q361D .XX 02/02/18 22:45 02/02/18 22:45 (Chlorhexidine 2% Cloth) 3 pack DAILY@04 TOPICAL 02/03/18 04:00 02/07/18 04:01 02/03/18 04:00 (Chlorhexidine 2% Cloth) 3 pack UNSCH PRN TOPICAL 02/02/18 22:45 02/07/18 22:31 (NS Flush) UNSCH PRN IV FLUSH 02/03/18 09:45 (Heparin Inj) UNSCH PRN IV FLUSH 02/03/18 09:45 Albumin Human 1,400 ml @ 250 mls/hr Q48H IV 02/03/18 11:00 02/11/18 16:35 (SoluMEDROL INJ) 125 mg Q48H IV PUSH 02/03/18 11:00 02/11/18 11:01 (Pepcid Inj) 20 mg Q48H IV PUSH 02/03/18 11:00 02/11/18 11:01 (Benadryl Inj) 25 mg UNSCH PRN IV PUSH 02/03/18 10:30 02/11/18 23:59 Sodium Chloride 1,000 ml @ 0 mls/hr Q0M PRN IV 02/03/18 10:30 02/11/18 23:59 (Acd Formula Inj) 1,000 ml Q48H OTHER 02/03/18 11:00 02/11/18 11:01 (NS Flush) 10 ml UNSCH PRN IV FLUSH 02/03/18 10:30 02/11/18 23:59 (Heparin Inj) 5,000 units UNSCH PRN IV FLUSH 02/03/18 10:30 02/11/18 23:59 (Heparin Inj) 1,000 units UNSCH PRN IV FLUSH 02/03/18 10:30 02/11/18 23:59 Calcium Gluconate 3 gm/Sodium Chloride 180 ml @ 90 mls/hr Q48H IV 02/03/18 12:00 02/11/18 13:59 (Neurontin) 600 mg TID PO 02/03/18 13:00 UNV (Kwame Pavon MD R1) Urinary Catheter: No (Kwame Pavon MD R1) Vascular Central Line Catheter: Yes Date of Insertion: Feb 03, 2018 Reason for Continuation vac-cath for plasmapheresis (Kwame Pavon MD R1) A/P Assessment and Plan 67-year-old female with history of poorly controlled diabetes presents with DELLA and generalized weakness, unable to get up out of chair. Heme/Onc, neurology and nephrology consulted. 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 Pt seen and dw Dr Clark Discharge Planning Plasmapheresis by Heme/Onc every other day x 5 (start 02/03/18 - tentative completion 02/11/18) (Kwame Pavon MD R1) Attending Attestation Patient seen and examined. Case reviewed and discussed with the resident team. Agree with plan of care as discussed with me and documented in the resident note. she dropped a cup she was holding. her forced vital capacity was 1 liter which is fine. hopefully her sxs turn around with the plasmaphereses (Desirae Clark MD) Problem List: (1) Generalized weakness ICD Codes: R53.1 - Weakness Status: Acute Plan: Increasing generalized weakness over the past week to week and a half. suspicious for Guillain [place] as it has a short time course and also elevated protein in hr CSF. She does have reflexes which confuses the issue Physical therapy consult Occupational therapy Neurology consult Case management consult, patient may need placement at discharge Sedimentation Rate and CRP done CXR no acute process MRI does not account for her sxs LP shows increased protein, normal glucose, few RBCs, normal opening pressure, Gram stain negative for organisms, HSV pending EMG study as outpt Heme-Onc consulted and following recs: -5 treatments of plasmapheresis; vas-cath and start plasmapheresis 02/03/17 - tentative completion 02/11/18 -Daily CBC, BMP, Coags (2) plasma exchange Status: Acute Plan: As above -- Heme/Onc has ordered 5 plasmapheresis treatments spaced every other day; vas-cath has been placed as of 02/03/18 (3) Respiratory abnormality ICD Codes: J98.9 - Respiratory disorder, unspecified Status: Acute Plan: her vital capacity was .65 of a liter. per calculations she should be approximately 1 liter. If she is too low then many people end up on a ventilator. will order another vital capacity for tomorrow. will need to consult [employer] if she is any lower. she will be watched in IMC to be sure she does well with her breathing. she will start plasmapheresis and hopefully will begin to improve FVC wnl this morning -RT to monitor vital capacity (if <65%, tapan COOPER and consider intubation) (4) DELLA (acute kidney injury) ICD Codes: N17.9 - Acute kidney failure, unspecified Status: Acute Plan: Acute on chronic kidney injury. BUN 60 / Cr 2.25 on admit--> 51 / 1.57 today Likely from poorly controlled diabetes and hypertension Nephrology consulted Normal saline at maintenance rate Careful with nephrotoxic agents (5) Peripheral neuropathy ICD Codes: G62.9 - Polyneuropathy, unspecified Status: Acute Plan: Patient has had benefit from gabapentin -Gabapentin 600mg TID (per Dr Joiner, neurology) -Consider low dose Cymbalta Careful with dosing because of kidney injury Per her her pain became very bad just within the past week and could also be related to GB (6) Hypertension ICD Codes: I10 - Essential (primary) hypertension Status: Chronic Plan: Continue home carvedilol, amlodipine (7) Diabetes mellitus ICD Codes: E11.9 - Type 2 diabetes mellitus without complications Status: Chronic Plan: Diabetes with kidney injury. Noncompliant as an outpatient Sliding scale insulin while inpatient Patient likely would benefit from long-acting insulin as an outpatient if she will be compliant. Hemoglobin A1c 7.5 Counseled extensively on the importance of medical compliance (8) Gastroparesis ICD Codes: K31.84 - Gastroparesis Status: Acute Plan: History of gastroparesis. At this point, it is not clear if patient continues to take Reglan or erythromycin as the patient is not sure and does not have a medication list We will continue to evaluate and add medications as needed (9) Anemia ICD Codes: D64.9 - Anemia, unspecified Status: Chronic Plan: Hgb 10.5 today -Continue FeSO4 325mg PO BID (10) FEN Status: Acute Plan: Fluids: Normal saline at maintenance rate Electrodes: Monitor and replace as needed Nutrition: Diabetic diet Prophylaxis: Heparin, SCDs (Kwame Pavon MD R1) Problem Qualifiers (1) Peripheral neuropathy: Qualified Codes: G62.9 - Polyneuropathy, unspecified (2) Hypertension: Qualified Codes: I10 - Essential (primary) hypertension (3) Diabetes mellitus: Qualified Codes: E11.22 - Type 2 diabetes mellitus with diabetic chronic kidney disease (4) Anemia: Qualified Codes: D50.9 - Iron deficiency anemia, unspecified Kwame Pavon MD R1 Feb 03, 2018 13:16 Desirae Clark MD Feb 03, 2018 14:00
--- NOTE | 2018-02-03 14:43 | HHI.PR ---
Subjective Remarks co pain from knees down Objective Vital Signs Date Time Temp Pulse Resp B/P (MAP) Pulse Ox O2 Delivery O2 Flow Rate FiO2 02/03/18 12:00 68 02/03/18 12:00 98.0 68 17 145/64 (91) 99 02/03/18 10:00 68 02/03/18 08:00 60 02/03/18 08:00 98.1 60 14 149/64 (92) 100 02/03/18 07:12 99 02/03/18 06:00 59 02/03/18 04:00 98.3 63 19 129/60 (83) 100 02/03/18 04:00 63 02/03/18 02:00 72 02/03/18 00:00 98.6 58 13 116/57 (76) 99 02/03/18 00:00 58 02/02/18 23:39 99 21 02/02/18 22:00 64 02/02/18 20:00 98.4 65 22 154/65 (94) 99 02/02/18 20:00 65 02/02/18 18:00 57 02/02/18 17:00 58 02/02/18 16:00 97.9 57 9 129/60 (83) 99 02/02/18 16:00 56 02/02/18 15:00 56 17 91/50 (64) 99 I/O 02/02/18 02/02/18 02/02/18 02/03/18 02/03/18 02/03/18 07:00 15:00 23:00 07:00 15:00 23:00 Intake Total 480 ml 400 ml 240 ml Output Total 960 ml 300 ml Balance -480 ml 100 ml 240 ml Intake Oral 480 ml 400 ml 240 ml Output Urine Total 960 ml 300 ml # Voids 2 # Bowel Movements 0 0 0 Result Diagram: 02/03/18 0440 02/03/18 0440 Objective Remarks dtr 1+ bicep bilat nl strength bue and ble pain on touching legs lp inc pro to 120 but is diabetic pinprick intact toes Assessment and Plan Assessment and Plan imp getting rx for possible gbs check mri spine and mma Sean Joiner MD Feb 03, 2018 14:43
[2018-02-03] MEDS: diphenhydrAMINE HCL 50 MG/ML VIAL IV PUSH PRN (16:12)
[2018-02-03] MEDS: ANTICOAGULANT CITRATE DEXTROSE SOLN-A 1L OTHER SCH (17:02)
[2018-02-03] MEDS: CALCIUM GLUCONATE INJ 3 GM in SODIUM CHLORIDE 0.9% INJ 150 ML IV SCH (17:03)
[2018-02-03] MEDS: ALBUMIN 5% IV SCH (17:03)
[2018-02-03 22:10] LABS: ALB/GLOB RATIO (SPE) 0.93 (1.39-2.23)
--- NOTE | 2018-02-03 23:02 | MB ---
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 HISTORY OF PRESENT ILLNESS: This is a 67-year-old female who has a history of diabetes, hypertension, hyperlipidemia, history of gastroparesis and frequent UTIs, CHF and patent foramen ovale who presented to the emergency room with increasing weakness over the past several days. When I saw this patient, she was very drowsy and she was unable to give clear details regarding events before her hospital admission. Apparently she was more awake and alert earlier in the day. I have reviewed her records in the EMR. It appeared that she had become weak to a point where she was unable to get out of the chair or walk to the bathroom and she had a bowel movement and urinated on herself. Most recently her gabapentin was increased to 400 mg twice a day to address her neuropathy. The patient was admitted to the hospital and was evaluated by neurology. An extensive workup was ordered. I have discussed this case with Dr. Desai who called me about the patient and there is concern for AICD versus Guillain-[place]. Neurology is planning to do EMG and nerve conduction studies. The patient had a lumbar puncture which showed elevated protein. Neurology has recommended plasmapheresis. The patient has also been seen by neurologist, Dr. Joiner. The patient has a brain MRI which showed minimal periventricular white matter changes, otherwise there were no acute abnormalities. REVIEW OF SYSTEMS: Unable to be completed due to patient's mental status. She was extremely drowsy. PAST MEDICAL HISTORY: Diabetes type 2, hypertension, hyperlipidemia, peripheral neuropathy, history of recurrent UTIs, anemia, CHF, patent foramen ovale. PAST SURGICAL HISTORY: History of in 1990, history of renal abscesses. SOCIAL HISTORY: She is . She lives with her . She has a daughter. She does not smoke cigarettes. No illicit drug use. No alcohol abuse. FAMILY HISTORY: Significant for diabetes and hypertension on her mom's side and on her father's side there is history of coronary artery disease. MEDICATIONS: Gabapentin 600 mg p.o. t.i.d., Solu-Medrol 125 mg IV q. 48 hours, Pepcid 20 mg IV q. 48 hours, iron sulfate 325 mg p.o. b.i.d., gemfibrozil 300 mg p.o. daily, pantoprazole 40 mg p.o. daily, pravastatin 10 mg p.o. daily, carvedilol 12.5 mg p.o. twice a day, DuoNeb b.i.d. p.r.n., senna and docusate p.r.n., sliding scale insulin, Zofran p.r.n., senna p.r.n. ALLERGIES: SHE IS ALLERGIC TO CLONIDINE AND METFORMIN. PHYSICAL EXAMINATION: VITAL SIGNS: Blood pressure is 143/65, pulse is in the 70s, respiratory rate is 12, temperature is 98.5. GENERAL: Thin acutely ill elderly female who appears quite drowsy. HEENT: Pupils equal, round and reactive to light, EOMI, no thrush, no oral lesions. NECK: Supple, no JVD, no bruits, no lymphadenopathy. CHEST: Clear to auscultation bilaterally. CARDIAC: S1, S2, regular rate and rhythm. ABDOMEN: Soft, nontender, nondistended, bowel sounds are present. EXTREMITIES: Without any edema, erythema, cyanosis. NEUROLOGIC: Decreased strength in bilateral lower extremities. She is able to lift her legs. Strength is 3/5 in both extremities. She is following commands. PSYCHIATRIC: She is drowsy. LYMPHATICS: No lymphadenopathy on exam. IMAGING: Reviewed in the EMR. LABORATORY DATA: Sodium 144, potassium 3.9, chloride is 120, CO2 is 14.6, BUN is 51, creatinine is 1.57, total bilirubin is 0.2, AST is 17, ALT is 21, alkaline phosphatase is 71. Albumin is 2.7. TSH is 1.16. WBC is 8.3, hemoglobin is 10.5, platelet count is 392. MCV is 88.6. PT is 10.4, INR 1, PTT 22.4. HSV PCR is negative. RPR is pending. XANDER is pending. LP shows CSF glucose of 113, total protein is elevated to 121.9. The remaining studies are pending. ASSESSMENT AND PLAN: This is a 67-year-old female with a history of hypertension, diabetes, hyperlipidemia, history of recurrent urinary tract infections, gastroparesis, peripheral neuropathy who was admitted to the hospital with progressive lower extremity weakness. 1. Progressive lower extremity weakness, concern for Guillain-[place] syndrome. I have reviewed neurology's note. They are requesting plasma exchange treatment. We will proceed with these treatments. This was discussed with the patient. A vascath has already been placed. I had discussed this case yesterday with Dr. Desai. She will receive plasma exchange every other day for 3-5 exchanges and then she will be reassessed for further treatments. We will monitor daily labs including CBC and CMP. 2. Mild normocytic anemia. Obtain anemia studies including B12 and folate levels. 3. Acute renal failure. Creatinine is now 1.57 with GFR of 40. 4. History of diabetes. 5. History of peripheral neuropathy. Thank you for allowing me to participate in the care of this patient. Hematology team will continue to follow the patient along. MD SHELTON Murray/rt , 10:12 PM , 11:00 PM
--- NOTE | 2018-02-03 23:19 | RADRPT ---
EXAM DATE/TIME: 02/03/2018 21:39 [facility] COMPARISON: No previous studies available for comparison. INDICATIONS : Weakness. MEDICAL HISTORY : Hypercholesterolemia. Congestive heart failure. SURGICAL HISTORY : Renal stent. ENCOUNTER: Initial ACUITY: 1 day PAIN SCORE: 0/10 LOCATION: Paraspinal TECHNIQUE: Multiplanar, multisequence MRI examination of the cervical spine was performed. FINDINGS: VERTEBRAE: Normal vertebral body height. Homogeneous marrow signal. ALIGNMENT: No evidence of subluxation. CORD: Normal configuration and signal. POST FOSSA: The cerebellar tonsils are normal in position. C2-C3: The thecal sac has a normal configuration. There is no evidence of disc herniation or spinal canal s tenosis. The neural foramina are patent bilaterally. C3-C4: The thecal sac has a normal configuration. There is no evidence of disc herniation or spinal canal s tenosis. The neural foramina are patent bilaterally. C4-C5: The thecal sac has a normal configuration. There is no evidence of disc herniation or spinal canal s tenosis. The neural foramina are patent bilaterally. C5-C6: Right disc protrusion measures 3 mm in AP dimension and causes focal indentation of the thecal sac ne ar the neural foraminal orifice and probably impresses upon the ventral nerve root as it courses thro ugh the bony spinal canal. C6-C7: The thecal sac has a normal configuration. There is no evidence of disc herniation or spinal canal s tenosis. The neural foramina are patent bilaterally. C7-T1: The thecal sac has a normal configuration. There is no evidence of disc herniation or spinal canal s tenosis. The neural foramina are patent bilaterally. CONCLUSION: 1. Mild size right disc protrusion C5-6. 2. No evidence of cord compression. Corey Coley MD on February 03, 2018 at 23:15 Board Certified Radiologist. This report was verified electronically.
--- NOTE | 2018-02-03 23:20 | RADRPT ---
EXAM DATE/TIME: 02/03/2018 21:39 [facility] COMPARISON: No previous studies available for comparison. INDICATIONS : Weakness. MEDICAL HISTORY : Congestive heart failure. Hypercholesterolemia. SURGICAL HISTORY : Renal stent. ENCOUNTER: Initial ACUITY: 1 day PAIN SCORE: 0/10 LOCATION: Paraspinal TECHNIQUE: Multiplanar multisequence MRI of the thoracic spine was performed. FINDINGS: VERTEBRA: Normal vertebral body height. Homogeneous marrow signal. ALIGNMENT: Normal. CORD: Normal size and normal signal characteristics. The conus is at the level of T12. T1-T2: Normal. T2-T3: The thecal sac has a normal diameter. No evidence of disc bulge or protrusion. T3-T4: The thecal sac has a normal diameter. No evidence of disc bulge or protrusion. T4-T5: The thecal sac has a normal diameter. No evidence of disc bulge or protrusion. T5-T6: The thecal sac has a normal diameter. No evidence of disc bulge or protrusion. T6-T7: The thecal sac has a normal diameter. No evidence of disc bulge or protrusion. T7-T8: The thecal sac has a normal diameter. No evidence of disc bulge or protrusion. T8-T9: The thecal sac has a normal diameter. No evidence of disc bulge or protrusion. T9-T10: The thecal sac has a normal diameter. No evidence of disc bulge or protrusion. T10-T11: The thecal sac has a normal diameter. No evidence of disc bulge or protrusion. T11-T12: The thecal sac has a normal diameter. No evidence of disc bulge or protrusion. T12-L1: The thecal sac has a normal diameter. No evidence of disc bulge or protrusion. CONCLUSION: Negative MRI of the thoracic spine. Corey Coley MD on February 03, 2018 at 23:18 Board Certified Radiologist. This report was verified electronically.
--- NOTE | 2018-02-03 23:21 | RADRPT ---
EXAM DATE/TIME: 02/03/2018 21:39 [facility] COMPARISON: No previous studies available for comparison. INDICATIONS : Weakness. MEDICAL HISTORY : Congestive heart failure. Hypercholesterolemia. SURGICAL HISTORY : Renal stent ENCOUNTER: Initial ACUITY: 1 day PAIN SCORE: 0/10 LOCATION: Paraspinal TECHNIQUE: Multiplanar multisequence MRI of the lumbar spine was performed without contrast. FINDINGS: The most caudal appearing lumbar vertebra is numbered as L5. VERTEBRAE: Homogeneous signal. Normal alignment. CONUS: Normal level and configuration. T12-L1: The thecal sac has a normal diameter. No evidence of disc bulge or protrusion. The neural foramina are patent bilaterally. L1-L2: The thecal sac has a normal diameter. No evidence of disc bulge or protrusion. The neural foramina are patent bilaterally. L2-L3: The thecal sac has a normal diameter. No evidence of disc bulge or protrusion. The neural foramina are patent bilaterally. L3-L4: The thecal sac has a normal diameter. No evidence of disc bulge or protrusion. The neural foramina are patent bilaterally. L4-L5: Minimal bulging of the disc causes flattening of ventral margin thecal sac. No disc protrusion. The neural foramina are patent. L5-S1: The thecal sac has a normal diameter. No evidence of disc bulge or protrusion. The neural foramina are patent bilaterally. CONCLUSION: 1. Mild bulging of the L4-5 disc. Otherwise negative exam. Corey Coley MD on February 03, 2018 at 23:18 Board Certified Radiologist. This report was verified electronically.
[2018-02-04] VITALS (14 sets, daily range): BP systolic 117–197; BP diastolic 56–85; PULSE 54–74; RESP 10–14; TEMP 97.9–99.4; O2SAT 97–100
[2018-02-04 01:04] LABS: ENTEROVIRUS PCR RESULT Negative (Negative); ENTEROVIRUS PCR SPEC SOURCE CSF
[2018-02-04] MEDS: CHLORHEXIDINE GLUCONATE 2 % 1 PACK (2 CLOTHS)(taper/protocol) TOPICAL SCH (04:00)
[2018-02-04] MEDS: ACETAMINOPHEN/HYDROcodone 325 MG/10 MG TAB PO PRN ×4 (04:14→17:26)
[2018-02-04] MEDS: RESP: ALBUTEROL 2.5 MG/IPRATROPIUM 0.5 MG NEB (SCH) NEB ×2 (07:53→19:49)
[2018-02-04] MEDS: INSULIN ASPART SUPPLEMENTAL SCALE SQ SCH ×4 (08:00→22:10)
[2018-02-04] MEDS: GABAPENTIN 300 MG CAP PO SCH ×3 (08:28→17:25)
[2018-02-04] MEDS: FERROUS SULFATE 325 MG (65 MG ELEMENTAL IRON) TAB PO SCH ×2 (08:29→21:59)
[2018-02-04] MEDS: GEMFIBROZIL 600 MG TAB PO SCH (08:29)
[2018-02-04] MEDS: POTASSIUM CHLORIDE 20 MEQ CONTROLLED RELEASE TAB PO SCH (08:29)
[2018-02-04] MEDS: CARVEDILOL 12.5 MG TAB PO SCH ×2 (08:29→21:59)
[2018-02-04] MEDS: PANTOPRAZOLE SOD 40 MG DELAYED RELEASE TAB PO SCH (08:29)
[2018-02-04] MEDS: DOCUSATE SODIUM 50 MG/SENNA 8.6 MG TAB PO SCH ×2 (08:29→21:59)
[2018-02-04] MEDS: PRAVASTATIN SOD 10 MG TAB PO SCH (08:30)
[2018-02-04] MEDS: SODIUM CHLORIDE 0.9% FLUSH 10 ML FLUSH IV FLUSH SCH ×2 (08:30→21:59)
--- NOTE | 2018-02-04 08:56 | HHI.FPPN ---
Subjective Remarks NAEON. Ms Cohen received her first plasmapheresis treatment yesterday. She complains of burning pain and numbness in her feet due to peripheral neuropathy. She has been moving her legs in an effort to strengthen them. She becomes tearful about wanting to see her daughter graduate from high school in March. She is scared about dying and her treatment course. Pt is taking PO, voiding, but no BM for last 2-3 days. No problems breathing or CP, N/V/D, DVT pain. (Kwame Pavon MD R1) Objective Vitals Vital Signs Date Time Temp Pulse Resp B/P (MAP) Pulse Ox O2 Delivery O2 Flow Rate FiO2 02/04/18 08:00 99.0 67 12 197/85 (122) 100 02/04/18 07:53 98 02/04/18 06:00 63 02/04/18 04:00 65 02/04/18 04:00 97.9 65 12 167/71 (103) 97 02/04/18 02:00 66 02/04/18 00:00 99.2 74 12 166/70 (102) 99 02/04/18 00:00 74 02/03/18 22:00 72 02/03/18 20:00 69 02/03/18 20:00 98.4 70 14 135/62 (86) 98 02/03/18 18:00 67 02/03/18 16:00 98.5 71 12 143/65 (91) 100 02/03/18 16:00 71 02/03/18 14:00 62 02/03/18 12:00 68 02/03/18 12:00 98.0 68 17 145/64 (91) 99 02/03/18 10:00 68 I/O 02/03/18 02/03/18 02/03/18 02/04/18 02/04/18 02/04/18 07:00 15:00 23:00 07:00 15:00 23:00 Intake Total 240 ml 360 ml 480 ml Output Total 950 ml Balance 240 ml 360 ml -470 ml Intake Oral 240 ml 360 ml 480 ml Output Urine Total 950 ml # Voids 2 2 # Bowel Movements 0 0 (Kwame Pavon MD R1) Result Diagram: 02/03/18 0440 02/03/18 0440 Imaging Last Impressions Lumbar Spine MRI 02/03/18 1156 Signed Impressions: Service Date/Time: Saturday, February 03, 2018 21:39 - CONCLUSION: 1. Mild bulging of the L4-5 disc. Otherwise negative exam. Corey Coley MD Cervical Spine MRI 02/03/18 1156 Signed Impressions: Service Date/Time: Saturday, February 03, 2018 21:39 - CONCLUSION: 1. Mild size right disc protrusion C5-6. 2. No evidence of cord compression. Corey Coley MD Thoracic Spine MRI 02/03/18 0000 Signed Impressions: Service Date/Time: Saturday, February 03, 2018 21:39 - CONCLUSION: Negative MRI of the thoracic spine. Corey Coley MD Catheter Placement X-Ray 02/03/18 0000 Signed Impressions: Service Date/Time: Saturday, February 03, 2018 09:03 - CONCLUSION: Uncomplicated line placement as above. Corey Milaln Jr., MD Lumbar Puncture Fluoroscopy 02/02/18 0000 Signed Impressions: Service Date/Time: January 13:25 - CONCLUSION: Uncomplicated fluoroscopically guided lumbar puncture with pressures as above. Gerard Dorantes MD Brain MRI 02/02/18 0000 Signed Impressions: Service Date/Time: January 12:47 - CONCLUSION: Minimal periventricular white matter changes. Otherwise negative. Rony Sarabia MD Chest X-Ray 02/01/18 0830 Signed Impressions: Service Date/Time: Thursday, February 01, 2018 09:23 - CONCLUSION: 1. No acute cardiopulmonary findings. Gerard Dorantes MD Objective Remarks GENERAL: This is a pleasant middle-aged female, soft-spoken, lying in bed. No acute distress. Appears anxious and tearful at times. SKIN: Cool and dry. No lesions, ecchymoses or rashes. HEAD: Atraumatic. Normocephalic. No temporal or scalp tenderness. EYES: Pupils equal round and reactive. Extraocular motions intact. No scleral icterus. No injection or drainage. ENT: Nose without drainage. Throat without erythema, tonsillar hypertrophy or exudate. Uvula midline. Airway patent. NECK: Trachea midline. No JVD or lymphadenopathy. Supple, nontender, no meningeal signs. CARDIOVASCULAR: Regular rate and rhythm without murmurs, gallops, or rubs. RESPIRATORY: Clear to auscultation. Breath sounds equal bilaterally. No wheezes , rales, or rhonchi. Resting comfortably on RA. (RT found FVC wnl) BACK: no bony abnormalities; surgical scar at right lateral costovertebral margin well-healed, c/d/i, no erythema. GASTROINTESTINAL: Abdomen soft, non-tender, nondistended. No hepato-splenomegaly , or palpable masses. No guarding. MUSCULOSKELETAL: Extremities without clubbing, cyanosis, or edema. No joint tenderness, effusion, or edema noted. No calf tenderness. NEUROLOGICAL: Awake and alert. Cranial nerves II through XII intact. 4/5 strength bilaterally in the lower extremities. 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 Normal speech. Procedures Vas-cath placement 02/03/18 Plasmapheresis 02/03/18 Medications and IVs Current Medications Medications (Trade) Dose Ordered Sig/Alisha Route Start Time Stop Time Status Last Admin (Norvasc) 10 mg DAILY PO 02/01/18 14:30 02/04/18 08:29 (Ecotrin Ec) 325 mg DAILY PO 02/01/18 14:30 Future Hold 02/01/18 15:46 (Coreg) 12.5 mg Q12HR PO 02/01/18 21:00 02/04/18 08:29 (Ferrous Sulfate) 325 mg BID PO 02/02/18 09:00 02/04/18 08:29 (Lopid) 300 mg DAILY PO 02/02/18 09:00 02/04/18 08:29 ([place] 10-325 Mg) 1 tab Q4H PRN PO 02/01/18 14:30 02/04/18 08:28 (Duoneb Neb) 1 ampule BID NEB NEB 02/01/18 21:00 02/04/18 07:53 (Protonix) 40 mg DAILY PO 02/02/18 09:00 02/04/18 08:29 (KCl) 20 meq DAILY PO 02/02/18 09:00 02/04/18 08:29 (Pravachol) 10 mg DAILY PO 02/02/18 09:00 02/04/18 08:30 Sodium Chloride 1,000 ml @ 100 mls/hr Q10H IV 02/01/18 14:34 Future Hold 02/02/18 10:34 (NS Flush) 2 ml UNSCH PRN IV FLUSH 02/01/18 14:45 (NS Flush) 2 ml BID IV FLUSH 02/01/18 21:00 02/04/18 08:30 (Tylenol) 650 mg Q4H PRN PO 02/01/18 14:45 02/03/18 12:45 (Zofran Inj) 4 mg Q6H PRN IVP 02/01/18 14:45 (Heparin Inj) 5,000 units Q12H SQ 02/01/18 16:00 Future Hold 02/02/18 05:27 (Narcan Inj) 0.4 mg UNSCH PRN IV PUSH 02/01/18 14:45 (Bridgette-Colace) 1 tab BID PO 02/01/18 21:00 02/04/18 08:29 (Milk Of Magnesia Liq) 30 ml Q12H PRN PO 02/01/18 14:45 (Senokot) 17.2 mg Q12H PRN PO 02/01/18 14:45 (Dulcolax Supp) 10 mg DAILY PRN RECTAL 02/01/18 14:45 (Lactulose Liq) 30 ml DAILY PRN PO 02/01/18 14:45 (D50w (Vial) Inj) 50 ml UNSCH PRN IV PUSH 02/01/18 17:15 (Glucagon Inj) 1 mg UNSCH PRN OTHER 02/01/18 17:15 (NovoLOG SUPPLEMENTAL SCALE) 1 ACHS SLIDING SCALE SQ 02/01/18 21:00 02/03/18 22:50 Miscellaneous Information Patient in critical care unit? Ass... [id number] .XX 02/02/18 22:45 02/02/18 22:45 (Chlorhexidine 2% Cloth) 3 pack DAILY@04 TOPICAL 02/03/18 04:00 02/07/18 04:01 02/04/18 04:00 (Chlorhexidine 2% Cloth) 3 pack UNSCH PRN TOPICAL 02/02/18 22:45 02/07/18 22:31 (NS Flush) UNSCH PRN IV FLUSH 02/03/18 09:45 (Heparin Inj) UNSCH PRN IV FLUSH 02/03/18 09:45 (SoluMEDROL INJ) 125 mg Q48H IV PUSH 02/03/18 11:00 02/11/18 11:01 02/03/18 13:00 (Pepcid Inj) 20 mg Q48H IV PUSH 02/03/18 11:00 02/11/18 11:01 (Benadryl Inj) 25 mg UNSCH PRN IV PUSH 02/03/18 10:30 02/11/18 23:59 02/03/18 16:12 Sodium Chloride 1,000 ml @ 0 mls/hr Q0M PRN IV 02/03/18 10:30 02/11/18 23:59 (Acd Formula Inj) 1,000 ml Q48H OTHER 02/03/18 11:00 02/11/18 11:01 02/03/18 17:02 (NS Flush) 10 ml UNSCH PRN IV FLUSH 02/03/18 10:30 02/11/18 23:59 (Heparin Inj) 5,000 units UNSCH PRN IV FLUSH 02/03/18 10:30 02/11/18 23:59 (Heparin Inj) 1,000 units UNSCH PRN IV FLUSH 02/03/18 10:30 02/11/18 23:59 Calcium Gluconate 3 gm/Sodium Chloride 180 ml @ 90 mls/hr Q48H IV 02/03/18 12:00 02/11/18 13:59 02/03/18 17:03 (Neurontin) 600 mg TID PO 02/03/18 13:00 02/04/18 08:28 Albumin Human 3,000 ml @ 250 mls/hr Q48H IV 02/03/18 14:00 02/12/18 01:59 02/03/18 17:03 (Kwame Pavon MD R1) Urinary Catheter: No (Kwame Pavon MD R1) Vascular Central Line Catheter: Yes Date of Insertion: Feb 03, 2018 Reason for Continuation Heme/Onc to perform 5 plasmapheresis treatments 02/03 - 02/11 (Kwame Pavon MD R1) A/P Assessment and Plan 67-year-old female with history of poorly controlled diabetes presents with DELLA and generalized weakness, unable to get up out of chair. Heme/Onc, neurology and nephrology consulted. 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 Pt dw Dr Vickey Desai Discharge Planning Plasmapheresis by Heme/Onc every other day x 5 (start 02/03/18 - tentative completion 02/11/18) (Kwame Pavon MD R1) Attending Attestation Patient seen and examined. Case reviewed and discussed with the resident team. Agree with plan of care as discussed with me and documented in the resident note. she was able to stand up for the first time in about 10 days. she is breathing better, normally with her FVC which had been 65% of expected. She was not able to hold a cup yesterday but is fully feeding herself today (Desirae Clark MD) Problem List: (1) Generalized weakness ICD Codes: R53.1 - Weakness Status: Acute Plan: Increasing generalized weakness over the past week to week and a half. Suspicious for Guillain [place] as it has a short time course and also elevated protein in hr CSF. She does have reflexes which confuses the issue Physical therapy consult Occupational therapy Neurology consult Case management consult, patient may need placement at discharge Sedimentation Rate and CRP done CXR no acute process MRI does not account for her sxs LP shows increased protein, normal glucose, few RBCs, normal opening pressure, Gram stain negative for organisms, HSV pending EMG study as outpt Heme-Onc consulted and following recs: -5 treatments of plasmapheresis; vas-cath and start plasmapheresis 02/03/17 - tentative completion 02/11/18 -Daily CBC, BMP, Coags -Improved UE and LE strength today -XANDER and VDRL/RPR labs pending (2) plasma exchange Status: Acute Plan: As above -- Heme/Onc has ordered 5 plasmapheresis treatments spaced every other day; vas-cath has been placed as of 02/03/18 (3) Respiratory abnormality ICD Codes: J98.9 - Respiratory disorder, unspecified Status: Acute Plan: her vital capacity was .65 of a liter. per calculations she should be approximately 1 liter. If she is too low then many people end up on a ventilator. will order another vital capacity for tomorrow. will need to consult Instant Potato Processing Supervisor if she is any lower. she will be watched in IMC to be sure she does well with her breathing. she will start plasmapheresis and hopefully will begin to improve FVC wnl this morning; discussed need for several FVC checks today with nursing and RT -RT to monitor vital capacity (if <65%, tapan COOPER and consider intubation) (4) DELLA (acute kidney injury) ICD Codes: N17.9 - Acute kidney failure, unspecified Status: Acute Plan: Acute on chronic kidney injury. BUN 60 / Cr 2.25 on admit--> 51 / 1.57 on 02/03 - labs pending for today Likely from poorly controlled diabetes and hypertension Nephrology consulted Normal saline at maintenance rate Careful with nephrotoxic agents (5) Peripheral neuropathy ICD Codes: G62.9 - Polyneuropathy, unspecified Status: Acute Plan: Patient has had benefit from gabapentin in past -- complains of burning and numbness in feet this morning -Gabapentin 600mg TID (per Dr Joiner, neurology) -Consider low dose Cymbalta Careful with dosing because of kidney injury Per her her pain became very bad just within the past week and could also be related to GB (6) Hypertension ICD Codes: I10 - Essential (primary) hypertension Status: Chronic Plan: Continue home carvedilol, amlodipine -Start Hydralazine 10mg PO PRN q6h SBP>180 OR DBP>100 (7) Diabetes mellitus ICD Codes: E11.9 - Type 2 diabetes mellitus without complications Status: Chronic Plan: Diabetes with kidney injury. Noncompliant as an outpatient Sliding scale insulin while inpatient Patient likely would benefit from long-acting insulin as an outpatient if she will be compliant. Hemoglobin A1c 7.5 Counseled extensively on the importance of medical compliance (8) Gastroparesis ICD Codes: K31.84 - Gastroparesis Status: Acute Plan: History of gastroparesis. At this point, it is not clear if patient continues to take Reglan or erythromycin as the patient is not sure and does not have a medication list We will continue to evaluate and add medications as needed (9) Anemia ICD Codes: D64.9 - Anemia, unspecified Status: Chronic Plan: Hgb 10.5 today -Continue FeSO4 325mg PO BID (10) FEN Status: Acute Plan: Fluids: Normal saline at maintenance rate Electrodes: Monitor and replace as needed Nutrition: Diabetic diet Prophylaxis: Heparin, SCDs Bowel regimen--one time miralax due to pt complaining of decreased stooling/no BM in last 2-3 days (Kwame Pavon MD R1) Problem Qualifiers (1) Peripheral neuropathy: Qualified Codes: G62.9 - Polyneuropathy, unspecified (2) Hypertension: Qualified Codes: I10 - Essential (primary) hypertension (3) Diabetes mellitus: Qualified Codes: E11.22 - Type 2 diabetes mellitus with diabetic chronic kidney disease (4) Anemia: Qualified Codes: D50.9 - Iron deficiency anemia, unspecified Kwame Pavon MD R1 Feb 04, 2018 08:55 Desirae Clark MD Feb 05, 2018 12:46
[2018-02-04] MEDS ORDERED: POLYETHYLENE GLYCOL 17 GM PKG PO ONE (09:15)
[2018-02-04] MEDS ORDERED: hydrALAZINE HCL 10 MG TAB PO PRN (10:00)
[2018-02-04 11:31] LABS: BASOPHIL % 0.3 % (0.0-2.0); EOSINOPHIL % 0.3 % (0.0-4.0); HEMOGLOBIN 9.7 GM/DL (11.6-15.3); LYMPH % 32.9 % (9.0-44.0); LYMPHOCYTE # 2.8 TH/MM3 (1.0-4.8); MEAN CELL VOLUME 88.6 FL (80.0-100.0); MEAN CORPUSCULAR HEMOGLOBIN 30.6 PG (27.0-34.0); MEAN CORPUSCULAR HGB CONC 34.5 % (32.0-36.0); MEAN PLATELET VOLUME 7.3 FL (7.0-11.0); MONO % 7.3 % (0.0-8.0); MONOCYTE # 0.6 TH/MM3 (0-0.9); NEUT % 59.2 % (16.0-70.0); PLATELET COUNT 338 TH/MM3 (150-450); RED BLOOD COUNT 3.16 MIL/MM3 (4.00-5.30); RED CELL DISTRIBUTION WIDTH 14.3 % (11.6-17.2); WHITE BLOOD COUNT 8.5 TH/MM3 (4.0-11.0)
[2018-02-04 11:41] LABS: INTERNATIONAL NORMALIZED RATIO 1.2 RATIO
--- NOTE | 2018-02-04 11:41 | HHI.NPPN ---
Subjective History of Present Illness This is a 67-year-old female with past medical history diabetes mellitus, hypertension, ischemic heart disease, history of recurrent urinary tract infection, patient with history of pyelonephritis and acute kidney injury, was brought to the hospital because of generalized weakness and decreased oral intake. I was called to see the patient because of elevated BUN and creatinine. The patient has history of acute kidney injury and she as seen by me when she was here in October. At that time, her creatinine was as high as 4.6, this was in September, and then it improved and the creatinine stayed in a range of 1.1-1.2 most of the time. The patient has the last creatinine of 1.3, which was in November 2017. Now, she came with a creatinine of 1.2. The patient admits that she has not been eating very well for the last week or so.She has been feeling weak and tired. There is no nausea or vomiting. No history of diarrhea. She denies taking any nonsteroidal anti-inflammatory drug. There is no hematuria or dysuria. She did not notice any decrease in the urine output. Additional Remarks . Patient is more alert , and now oriented times 2, not in distress. Review of Systems General Constitutional: Fatigue General Remarks weakness Respiratory Respiratory Remarks mild SOB Cardiovascular Cardiac Remarks Denies any CP Gastrointestinal GI Remarks Denies any abdominal pain Genitourinary Remarks Denies dysuria Objective Data Data Vital Signs Date Time Temp Pulse Resp B/P (MAP) Pulse Ox O2 Delivery O2 Flow Rate FiO2 02/04/18 08:00 99.0 67 12 197/85 (122) 100 02/04/18 07:53 98 02/04/18 06:00 63 02/04/18 04:00 65 02/04/18 04:00 97.9 65 12 167/71 (103) 97 02/04/18 02:00 66 02/04/18 00:00 99.2 74 12 166/70 (102) 99 02/04/18 00:00 74 02/03/18 22:00 72 02/03/18 20:00 69 02/03/18 20:00 98.4 70 14 135/62 (86) 98 02/03/18 18:00 67 02/03/18 16:00 98.5 71 12 143/65 (91) 100 02/03/18 16:00 71 02/03/18 14:00 62 02/03/18 12:00 68 02/03/18 12:00 98.0 68 17 145/64 (91) 99 -: 02/04/18 1029 02/03/18 0440 Physical Exam General Appearance: No Acute Distress, Comfortable Throat Throat Exam: Oral Mucosa Carmine & Moist Pulmonary Resp Exam: Breath Sounds Equal, Decreased Bases Cardiology CV Exam: Regular Gastrointestinal/Abdomen GI Exam: Soft, Non-Tender, Distended Genitourinary Exam: Flank Non-Tender Integumentary Skin Exam: Warm, Dry Extremeties Extremities Exam: No Edema Neurologic Neuro Exam: Alert, Awake Psychiatric Psych Exam: Appropriate Responses Assessment/Plan Assessment Summary: DELLA/Acute Renal Failure, CKD Stage III Electrolyte Assessment: Hypokalemia Problem List: (1) DELLA (acute kidney injury) ICD Codes: N17.9 - Acute kidney failure, unspecified Status: Acute Plan: Acute kidney injury most likely related to prerenal azotemia with poor intake Creatinine is improving at 1.57 down from 1.84, today's BMP is still PND. Non oliguric Neurology note noted Vas cath placement today and plasmapheresis ordered for 3-5 doses. Avoid nephrotoxins, Follow the urine output and the BUN, creatinine. Started on Plasmapheresis, next treatment possibly in AM. (2) Generalized weakness ICD Codes: R53.1 - Weakness Status: Acute (3) Peripheral neuropathy ICD Codes: G62.9 - Polyneuropathy, unspecified Status: Acute (4) Diabetes mellitus ICD Codes: E11.9 - Type 2 diabetes mellitus without complications Status: Chronic (5) Hypertension ICD Codes: I10 - Essential (primary) hypertension Status: Chronic Problem Qualifiers (1) Peripheral neuropathy: Qualified Codes: G62.9 - Polyneuropathy, unspecified (2) Diabetes mellitus: Qualified Codes: E11.22 - Type 2 diabetes mellitus with diabetic chronic kidney disease (3) Hypertension: Qualified Codes: I10 - Essential (primary) hypertension Pita Huitron MD Feb 04, 2018 11:41
[2018-02-04 11:56] LABS: BICARBONATE 16.8 MEQ/L (21.0-32.0); CALCIUM 9.4 MG/DL (8.5-10.1); CREATININE 1.43 MG/DL (0.50-1.00)
--- NOTE | 2018-02-04 17:04 | HHI.PR ---
Subjective Remarks co pain from knees down better 04/06 today Objective Vital Signs Date Time Temp Pulse Resp B/P (MAP) Pulse Ox O2 Delivery O2 Flow Rate FiO2 02/04/18 14:00 69 02/04/18 12:00 64 02/04/18 12:00 99.4 64 14 154/67 (96) 98 02/04/18 10:00 67 02/04/18 08:00 99.0 67 12 197/85 (122) 100 02/04/18 08:00 67 02/04/18 07:53 98 02/04/18 06:00 63 02/04/18 04:00 65 02/04/18 04:00 97.9 65 12 167/71 (103) 97 02/04/18 02:00 66 02/04/18 00:00 99.2 74 12 166/70 (102) 99 02/04/18 00:00 74 02/03/18 22:00 72 02/03/18 20:00 69 02/03/18 20:00 98.4 70 14 135/62 (86) 98 02/03/18 18:00 67 I/O 02/03/18 02/03/18 02/03/18 02/04/18 02/04/18 02/04/18 07:00 15:00 23:00 07:00 15:00 23:00 Intake Total 240 ml 360 ml 480 ml Output Total 950 ml Balance 240 ml 360 ml -470 ml Intake Oral 240 ml 360 ml 480 ml Output Urine Total 950 ml # Voids 2 2 # Bowel Movements 0 0 Result Diagram: 02/04/18 1029 02/04/18 1029 Objective Remarks 5/5 ble today moving well Assessment and Plan Assessment and Plan imp getting rx for possible gbs check mri spine c t and ls neg and mma pend med team fu could push up neurontin to [address] dalton caldwell tuesday Sean Joiner MD Feb 04, 2018 17:04
[2018-02-04] MEDS: HEPARIN SODIUM - SQ 10,000 UNITS/ML VIAL SQ SCH (17:25)
[2018-02-04 19:54] LABS: VDRL CSF NON-REACTIVE (NON-REACTVE)
[2018-02-05] VITALS (15 sets, daily range): BP systolic 102–174; BP diastolic 54–82; PULSE 51–70; RESP 13–26; TEMP 98–98.4; O2SAT 90–100
[2018-02-05] MEDS: CHLORHEXIDINE GLUCONATE 2 % 1 PACK (2 CLOTHS)(taper/protocol) TOPICAL SCH (04:00)
[2018-02-05] MEDS: HEPARIN SODIUM - SQ 10,000 UNITS/ML VIAL SQ SCH ×2 (04:13→17:17)
[2018-02-05 04:45] LABS: AUTOMATED NEUTROPHIL # 2.8 TH/MM3 (1.8-7.7); BASOPHIL # 0.1 TH/MM3 (0-0.2); BASOPHIL % 0.9 % (0.0-2.0); EOSINOPHIL # 0.6 TH/MM3 (0-0.4); EOSINOPHIL % 5.9 % (0.0-4.0); HEMATOCRIT 27.1 % (35.0-46.0); HEMOGLOBIN 9.3 GM/DL (11.6-15.3); LYMPH % 56.5 % (9.0-44.0); LYMPHOCYTE # 5.5 TH/MM3 (1.0-4.8); MEAN CELL VOLUME 88.9 FL (80.0-100.0); MEAN CORPUSCULAR HEMOGLOBIN 30.5 PG (27.0-34.0); MEAN CORPUSCULAR HGB CONC 34.3 % (32.0-36.0); MEAN PLATELET VOLUME 7.4 FL (7.0-11.0); MONO % 7.5 % (0.0-8.0); MONOCYTE # 0.7 TH/MM3 (0-0.9); NEUT % 29.2 % (16.0-70.0); PLATELET COUNT 296 TH/MM3 (150-450); RED BLOOD COUNT 3.04 MIL/MM3 (4.00-5.30); RED CELL DISTRIBUTION WIDTH 14.6 % (11.6-17.2); WHITE BLOOD COUNT 9.7 TH/MM3 (4.0-11.0)
[2018-02-05 05:11] LABS: BICARBONATE 15.6 MEQ/L (21.0-32.0); CALCIUM 9.6 MG/DL (8.5-10.1); CREATININE 1.55 MG/DL (0.50-1.00)
[2018-02-05 05:41] LABS: INTERNATIONAL NORMALIZED RATIO 1.1 RATIO; PROTHROMBIN TIME - PATIENT 11.2 SEC (9.8-11.6)
[2018-02-05 05:56] LABS: LYMPHOCYTES 53 % (9-44); MONOCYTES 9 % (0-8); NEUTROPHIL # MANUAL DIFF 3.4 TH/MM3 (1.8-7.7); POLYS (SEG NEUTROPHILS) 35 % (16-70)
[2018-02-05] MEDS: RESP: ALBUTEROL 2.5 MG/IPRATROPIUM 0.5 MG NEB (SCH) NEB (07:37)
[2018-02-05] MEDS: INSULIN ASPART SUPPLEMENTAL SCALE SQ SCH ×4 (08:00→20:29)
[2018-02-05] MEDS: GABAPENTIN 300 MG CAP PO SCH ×2 (08:22→12:00)
[2018-02-05] MEDS: GEMFIBROZIL 600 MG TAB PO SCH (08:22)
[2018-02-05] MEDS: PANTOPRAZOLE SOD 40 MG DELAYED RELEASE TAB PO SCH (08:22)
[2018-02-05] MEDS: POTASSIUM CHLORIDE 20 MEQ CONTROLLED RELEASE TAB PO SCH (08:22)
[2018-02-05] MEDS: CARVEDILOL 12.5 MG TAB PO SCH ×2 (08:22→20:29)
[2018-02-05] MEDS: ACETAMINOPHEN/HYDROcodone 325 MG/10 MG TAB PO PRN ×2 (08:23→17:17)
[2018-02-05] MEDS: PRAVASTATIN SOD 10 MG TAB PO SCH (08:23)
[2018-02-05] MEDS: DOCUSATE SODIUM 50 MG/SENNA 8.6 MG TAB PO SCH ×2 (08:23→20:29)
[2018-02-05] MEDS: FERROUS SULFATE 325 MG (65 MG ELEMENTAL IRON) TAB PO SCH ×2 (08:23→20:29)
[2018-02-05] MEDS: SODIUM CHLORIDE 0.9% FLUSH 10 ML FLUSH IV FLUSH SCH ×2 (08:24→20:30)
--- NOTE | 2018-02-05 11:33 | HHI.NPPN ---
Subjective History of Present Illness This is a 67-year-old female with past medical history diabetes mellitus, hypertension, ischemic heart disease, history of recurrent urinary tract infection, patient with history of pyelonephritis and acute kidney injury, was brought to the hospital because of generalized weakness and decreased oral intake. I was called to see the patient because of elevated BUN and creatinine. The patient has history of acute kidney injury and she as seen by me when she was here in October. At that time, her creatinine was as high as 4.6, this was in September, and then it improved and the creatinine stayed in a range of 1.1-1.2 most of the time. The patient has the last creatinine of 1.3, which was in November 2017. Now, she came with a creatinine of 1.2. The patient admits that she has not been eating very well for the last week or so.She has been feeling weak and tired. There is no nausea or vomiting. No history of diarrhea. She denies taking any nonsteroidal anti-inflammatory drug. There is no hematuria or dysuria. She did not notice any decrease in the urine output. Additional Remarks . Patient is more alert , and now oriented times 3 now, feeling better. Review of Systems General Constitutional: Fatigue General Remarks weakness Respiratory Respiratory Remarks mild SOB Cardiovascular Cardiac Remarks Denies any CP Gastrointestinal GI Remarks Denies any abdominal pain Genitourinary Remarks Denies dysuria Objective Data Data Vital Signs Date Time Temp Pulse Resp B/P (MAP) Pulse Ox O2 Delivery O2 Flow Rate FiO2 02/05/18 10:00 55 02/05/18 08:00 69 02/05/18 08:00 98.0 69 25 174/82 (112) 100 02/05/18 07:38 99 21 02/05/18 06:00 56 02/05/18 04:00 60 02/05/18 04:00 98.4 60 13 165/69 (101) 100 02/05/18 03:00 51 02/05/18 02:00 53 02/05/18 00:00 98.2 60 14 117/56 (76) 99 02/05/18 00:00 60 02/04/18 22:00 61 02/04/18 20:00 98.5 54 10 129/62 (84) 99 02/04/18 20:00 54 02/04/18 19:49 97 02/04/18 18:00 67 02/04/18 16:00 61 02/04/18 16:00 99.2 61 12 117/56 (76) 97 02/04/18 14:00 69 02/04/18 12:00 64 02/04/18 12:00 99.4 64 14 154/67 (96) 98 -: 02/05/18 0350 02/05/18 0350 Physical Exam General Appearance: No Acute Distress, Comfortable Throat Throat Exam: Oral Mucosa Tolstoy & Moist Pulmonary Resp Exam: Breath Sounds Equal, Decreased Bases Cardiology CV Exam: Regular Gastrointestinal/Abdomen GI Exam: Soft, Non-Tender, Distended Genitourinary Exam: Flank Non-Tender Integumentary Skin Exam: Warm, Dry Extremeties Extremities Exam: No Edema Neurologic Neuro Exam: Alert, Awake, Oriented Psychiatric Psych Exam: Appropriate Responses Assessment/Plan Assessment Summary: DELLA/Acute Renal Failure, CKD Stage III Electrolyte Assessment: Hypokalemia Problem List: (1) DELLA (acute kidney injury) ICD Codes: N17.9 - Acute kidney failure, unspecified Status: Acute Plan: Acute kidney injury most likely related to prerenal azotemia with poor intake Creatinine is stable at 1.4-1.5. Non oliguric Neurology note noted Vas cath placement and plasmapheresis ordered for 3-5 doses. Avoid nephrotoxins, Follow the urine output and the BUN, creatinine. Started on Plasmapheresis, next treatment today. Add NaHco3 as Hco3 is low. (2) Generalized weakness ICD Codes: R53.1 - Weakness Status: Acute (3) Peripheral neuropathy ICD Codes: G62.9 - Polyneuropathy, unspecified Status: Acute (4) Diabetes mellitus ICD Codes: E11.9 - Type 2 diabetes mellitus without complications Status: Chronic (5) Hypertension ICD Codes: I10 - Essential (primary) hypertension Status: Chronic Problem Qualifiers (1) Peripheral neuropathy: Qualified Codes: G62.9 - Polyneuropathy, unspecified (2) Diabetes mellitus: Qualified Codes: E11.22 - Type 2 diabetes mellitus with diabetic chronic kidney disease (3) Hypertension: Qualified Codes: I10 - Essential (primary) hypertension Pita Huitron MD Feb 05, 2018 11:33
--- NOTE | 2018-02-05 11:56 | HHI.FPPN ---
Subjective Remarks Patient seen and examined this morning. Temperature 98, pulse ranging between 56-69, respiratory rate ranging between 13-25, blood pressure ranging between 165-174/60-82, pulse ox 100% on room air. Reports that she is feeling stronger today and has very little pain. She is very excited about the improvement that she is gaining and is hoping to get out of the hospital soon. She is in good spirits today and happy that she is feeling better. (Nikolas Pozo MD, R3) Objective Vitals Vital Signs Date Time Temp Pulse Resp B/P (MAP) Pulse Ox O2 Delivery O2 Flow Rate FiO2 02/05/18 10:00 55 02/05/18 08:00 69 02/05/18 08:00 98.0 69 25 174/82 (112) 100 02/05/18 07:38 99 21 02/05/18 06:00 56 02/05/18 04:00 60 02/05/18 04:00 98.4 60 13 165/69 (101) 100 02/05/18 03:00 51 02/05/18 02:00 53 02/05/18 00:00 98.2 60 14 117/56 (76) 99 02/05/18 00:00 60 02/04/18 22:00 61 02/04/18 20:00 98.5 54 10 129/62 (84) 99 02/04/18 20:00 54 02/04/18 19:49 97 02/04/18 18:00 67 02/04/18 16:00 61 02/04/18 16:00 99.2 61 12 117/56 (76) 97 02/04/18 14:00 69 02/04/18 12:00 64 02/04/18 12:00 99.4 64 14 154/67 (96) 98 I/O 02/04/18 02/04/18 02/04/18 02/05/18 02/05/18 02/05/18 07:00 15:00 23:00 07:00 15:00 23:00 Intake Total 480 ml 525 ml 480 ml Output Total 950 ml 1300 ml Balance -470 ml 525 ml -820 ml Intake Oral 480 ml 525 ml 480 ml Output Urine Total 950 ml 1300 ml # Voids 2 2 # Bowel Movements 0 0 (Nikolas Pozo MD, R3) Result Diagram: 02/05/18 0350 02/05/18 0350 Imaging Last Impressions Lumbar Spine MRI 02/03/18 1156 Signed Impressions: Service Date/Time: Saturday, February 03, 2018 21:39 - CONCLUSION: 1. Mild bulging of the L4-5 disc. Otherwise negative exam. Corey Coley MD Cervical Spine MRI 02/03/18 1156 Signed Impressions: Service Date/Time: Saturday, February 03, 2018 21:39 - CONCLUSION: 1. Mild size right disc protrusion C5-6. 2. No evidence of cord compression. Corey Coley MD Thoracic Spine MRI 02/03/18 0000 Signed Impressions: Service Date/Time: Saturday, February 03, 2018 21:39 - CONCLUSION: Negative MRI of the thoracic spine. Corey Coley MD Catheter Placement X-Ray 02/03/18 0000 Signed Impressions: Service Date/Time: Saturday, February 03, 2018 09:03 - CONCLUSION: Uncomplicated line placement as above. Corey Millan Jr., MD Lumbar Puncture Fluoroscopy 02/02/18 0000 Signed Impressions: Service Date/Time: January 13:25 - CONCLUSION: Uncomplicated fluoroscopically guided lumbar puncture with pressures as above. Gerard Dorantes MD Brain MRI 02/02/18 0000 Signed Impressions: Service Date/Time: January 12:47 - CONCLUSION: Minimal periventricular white matter changes. Otherwise negative. Rony Sarabia MD Chest X-Ray 02/01/18 0830 Signed Impressions: Service Date/Time: Thursday, February 01, 2018 09:23 - CONCLUSION: 1. No acute cardiopulmonary findings. Gerard Dorantes MD Objective Remarks GENERAL: This is a pleasant middle-aged female, soft-spoken, lying in bed. No acute distress. Appears anxious and tearful at times. SKIN: Cool and dry. No lesions, ecchymoses or rashes. HEAD: Atraumatic. Normocephalic. No temporal or scalp tenderness. EYES: Pupils equal round and reactive. Extraocular motions intact. No scleral icterus. No injection or drainage. ENT: Nose without drainage. Throat without erythema, tonsillar hypertrophy or exudate. Uvula midline. Airway patent. NECK: Trachea midline. No JVD or lymphadenopathy. Supple, nontender, no meningeal signs. CARDIOVASCULAR: Regular rate and rhythm without murmurs, gallops, or rubs. RESPIRATORY: Clear to auscultation. Breath sounds equal bilaterally. No wheezes , rales, or rhonchi. Resting comfortably on RA. (RT found FVC wnl) BACK: no bony abnormalities; surgical scar at right lateral costovertebral margin well-healed, c/d/i, no erythema. GASTROINTESTINAL: Abdomen soft, non-tender, nondistended. No hepato-splenomegaly , or palpable masses. No guarding. MUSCULOSKELETAL: Extremities without clubbing, cyanosis, or edema. No joint tenderness, effusion, or edema noted. No calf tenderness. NEUROLOGICAL: Awake and alert. Cranial nerves II through XII intact. 4/5 strength bilaterally in the lower extremities. 5/5 clinical informatics specialist strength in UEs. Normal speech. Procedures Vas-cath placement 02/03/18 Plasmapheresis 02/03/18 (Nikolas Pozo MD, R3) Date of Insertion: Feb 03, 2018 (Nikolas Pozo MD, R3) A/P Assessment and Plan 67-year-old female with history of poorly controlled diabetes presents with DELLA and generalized weakness, unable to get up out of chair. Heme/Onc, neurology and nephrology consulted. 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 Pt dw Dr Vickey Desai Discharge Planning Plasmapheresis by Heme/Onc every other day x 5 (start 02/03/18 - tentative completion 02/11/18) (Nikolas Pozo MD, R3) Attending Attestation Patient seen and examined. Case reviewed and discussed with the resident team. Agree with plan of care as discussed with me and documented in the resident note. doing so well will transfer out of [facility]. She is able to walk! She has had a rapid recovery. Unsure how many treatments she will need of plasmapheresis. 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 Reflexes were present which confused the issue Physical therapy consulted Occupational therapy consulted Neurology consulted, recommendations appreciated Case management consult, patient may need placement at discharge Sedimentation Rate and CRP done CXR no acute process MRI does not account for her sxs LP shows increased protein, normal glucose, few RBCs, normal opening pressure, Gram stain negative for organisms, HSV pending EMG study as outpt Heme-Onc consulted and following recs: -5 treatments of plasmapheresis; vas-cath and start plasmapheresis 02/03/17 - tentative completion 02/11/18 -Daily CBC, BMP, Coags -Improved UE and LE strength today -XANDER and VDRL/RPR labs pending (2) plasma exchange Status: Acute Plan: As above -- Heme/Onc has ordered 5 plasmapheresis treatments spaced every other day; vas-cath has been placed as of 02/03/18 (3) Respiratory abnormality ICD Codes: J98.9 - Respiratory disorder, unspecified Status: Acute Plan: her vital capacity was .65 of a liter. per calculations she should be approximately 1 liter. If she is too low then many people end up on a ventilator. will order another vital capacity for tomorrow. will need to consult [facility] if she is any lower. she will be watched in [facility] to be sure she does well with her breathing. she will start plasmapheresis and hopefully will begin to improve FVC wnl this morning; discussed need for several FVC checks today with nursing and RT -RT to monitor vital capacity (if <65%, tapan COOPER and consider intubation) (4) DELLA (acute kidney injury) ICD Codes: N17.9 - Acute kidney failure, unspecified Status: Acute Plan: Acute on chronic kidney injury. BUN 60 / Cr 2.25 on admit--> 41/1.55 today, trending down Likely from poorly controlled diabetes and hypertension Nephrology consulted Normal saline at maintenance rate Careful with nephrotoxic agents (5) Peripheral neuropathy ICD Codes: G62.9 - Polyneuropathy, unspecified Status: Acute Plan: Patient has had benefit from gabapentin in past -- complains of burning and numbness in feet this morning -Gabapentin 600mg TID (per Dr Joiner, neurology) -Consider low dose Cymbalta Careful with dosing because of kidney injury Per her her pain became very bad just within the past week and could also be related to GB (6) Hypertension ICD Codes: I10 - Essential (primary) hypertension Status: Chronic Plan: Continue home carvedilol, amlodipine -Start Hydralazine 10mg PO PRN q6h SBP>180 OR DBP>100 (7) Diabetes mellitus ICD Codes: E11.9 - Type 2 diabetes mellitus without complications Status: Chronic Plan: Diabetes with kidney injury. Noncompliant as an outpatient Sliding scale insulin while inpatient Patient likely would benefit from long-acting insulin as an outpatient if she will be compliant. Hemoglobin A1c 7.5 Counseled extensively on the importance of medical compliance (8) Gastroparesis ICD Codes: K31.84 - Gastroparesis Status: Acute Plan: History of gastroparesis. At this point, it is not clear if patient continues to take Reglan or erythromycin as the patient is not sure and does not have a medication list We will continue to evaluate and add medications as needed (9) Anemia ICD Codes: D64.9 - Anemia, unspecified Status: Chronic Plan: Hgb 10.5 today -Continue FeSO4 325mg PO BID (10) FEN Status: Acute Plan: Fluids: Normal saline at maintenance rate Electrodes: Monitor and replace as needed Nutrition: Diabetic diet Prophylaxis: Heparin, SCDs Bowel regimen-constipation bowel regimen started (Nikolas Pozo MD, R3) Problem Qualifiers (1) Peripheral neuropathy: Qualified Codes: G62.9 - Polyneuropathy, unspecified (2) Hypertension: Qualified Codes: I10 - Essential (primary) hypertension (3) Diabetes mellitus: Qualified Codes: E11.22 - Type 2 diabetes mellitus with diabetic chronic kidney disease (4) Anemia: Qualified Codes: D50.9 - Iron deficiency anemia, unspecified Nikolas Pozo MD, R3 Feb 05, 2018 11:56 Desirae Clark MD Feb 05, 2018 12:48
[2018-02-05] MEDS ORDERED: BISACODYL 10 MG SUPP RECTAL PRN (12:00)
[2018-02-05] MEDS ORDERED: MAGNESIUM HYDROXIDE SUSP 30 ML CUP PO PRN (12:00)
[2018-02-05] MEDS ORDERED: LACTULOSE SYRUP 20 GM/30 ML CUP PO PRN (12:00)
[2018-02-05] MEDS ORDERED: SENNOSIDES 8.6 MG TAB PO PRN (12:00)
[2018-02-05] MEDS ORDERED: DOCUSATE SODIUM 50 MG/SENNA 8.6 MG TAB PO SCH (12:00)
[2018-02-05] MEDS: FAMOTIDINE 20 MG/2 ML VIAL IV PUSH SCH (12:01)
[2018-02-05] MEDS: MAGNESIUM HYDROXIDE SUSP 30 ML CUP PO PRN (13:15)
[2018-02-05] MEDS: SODIUM BICARBONATE 650 MG TAB PO SCH ×2 (13:15→20:29)
[2018-02-05] MEDS: ANTICOAGULANT CITRATE DEXTROSE SOLN-A 1L OTHER SCH (13:25)
--- NOTE | 2018-02-05 15:08 | PD.ONC.PN ---
Subjective Subjective Remarks Afebrile "I cannot believe how much better my strength is in my legs" No bleeding Complaining of constipation Objective Data Date Time Temp Pulse Resp B/P (MAP) Pulse Ox O2 Delivery O2 Flow Rate FiO2 02/05/18 14:00 62 02/05/18 12:00 98.2 70 26 121/57 (78) 90 02/05/18 12:00 70 02/05/18 10:00 55 02/05/18 08:00 69 02/05/18 08:00 98.0 69 25 174/82 (112) 100 02/05/18 07:38 99 21 02/05/18 06:00 56 02/05/18 04:00 60 02/05/18 04:00 98.4 60 13 165/69 (101) 100 02/05/18 03:00 51 02/05/18 02:00 53 02/05/18 00:00 98.2 60 14 117/56 (76) 99 02/05/18 00:00 60 02/04/18 22:00 61 02/04/18 20:00 98.5 54 10 129/62 (84) 99 02/04/18 20:00 54 02/04/18 19:49 97 02/04/18 18:00 67 02/04/18 16:00 61 02/04/18 16:00 99.2 61 12 117/56 (76) 97 02/05/18 02/05/18 02/05/18 07:00 15:00 23:00 Intake Total 480 ml Output Total 1300 ml Balance -820 ml Result Diagram: 02/05/18 03502/05/18 0350 Laboratory Results Laboratory Tests Test 02/05/18 03:50 White Blood Count 9.7 TH/MM3 Red Blood Count 3.04 MIL/MM3 Hemoglobin 9.3 GM/DL Hematocrit 27.1 % Mean Corpuscular Volume 88.9 FL Mean Corpuscular Hemoglobin 30.5 PG Mean Corpuscular Hemoglobin Concent 34.3 % Red Cell Distribution Width 14.6 % Platelet Count 296 TH/MM3 Mean Platelet Volume 7.4 FL Neutrophils (%) (Auto) 29.2 % Lymphocytes (%) (Auto) 56.5 % Monocytes (%) (Auto) 7.5 % Eosinophils (%) (Auto) 5.9 % Basophils (%) (Auto) 0.9 % Neutrophils # (Auto) 2.8 TH/MM3 Lymphocytes # (Auto) 5.5 TH/MM3 Monocytes # (Auto) 0.7 TH/MM3 Eosinophils # (Auto) 0.6 TH/MM3 Basophils # (Auto) 0.1 TH/MM3 CBC Comment AUTO DIFF Differential Total Cells Counted 100 Neutrophils % (Manual) 35 % Lymphocytes % 53 % Monocytes % 9 % Eosinophils % 3 % Neutrophils # (Manual) 3.4 TH/MM3 Differential Comment FINAL DIFF MANUAL Platelet Estimate NORMAL Platelet Morphology Comment NORMAL Red Cell Morphology Comment NORMAL Prothrombin Time 11.2 SEC Prothromb Time International Ratio 1.1 RATIO Activated Partial Thromboplast Time 20.8 SEC Fibrinogen 113 mg/dL Blood Urea Nitrogen 38 MG/DL Creatinine 1.55 MG/DL Random Glucose 126 MG/DL Calcium Level 9.6 MG/DL Sodium Level 142 MEQ/L Potassium Level 4.2 MEQ/L Chloride Level 116 MEQ/L Carbon Dioxide Level 15.6 MEQ/L Anion Gap 10 MEQ/L Estimat Glomerular Filtration Rate 41 ML/MIN Administered Medications Medications (Trade) Dose Ordered Sig/Alisha Route PRN Reason Start Time Stop Time Status Last Admin Dose Admin Amlodipine Besylate (Norvasc) 10 mg DAILY PO 02/01/18 14:30 02/05/18 08:22 Aspirin (Ecotrin Ec) 325 mg DAILY PO 02/01/18 14:30 Future Hold 02/01/18 15:46 Carvedilol (Coreg) 12.5 mg Q12HR PO 02/01/18 21:00 02/05/18 08:22 Ferrous Sulfate (Ferrous Sulfate) 325 mg BID PO 02/02/18 09:00 02/05/18 08:23 Gemfibrozil (Lopid) 300 mg DAILY PO 02/02/18 09:00 02/05/18 08:22 Acetaminophen/ Hydrocodone Bitart (Emery 10-325 Mg) 1 tab Q4H PRN PO PAIN SCALE 1-10 02/01/18 14:30 02/05/18 08:23 Albuterol/ Ipratropium (Duoneb Neb) 1 ampule BID NEB NEB 02/01/18 21:00 02/05/18 07:37 Pantoprazole Sodium (Protonix) 40 mg DAILY PO 02/02/18 09:00 02/05/18 08:22 Potassium Chloride (KCl) 20 meq DAILY PO 02/02/18 09:00 02/05/18 08:22 Pravastatin Sodium (Pravachol) 10 mg DAILY PO 02/02/18 09:00 02/05/18 08:23 Sodium Chloride 1,000 ml @ 100 mls/hr Q10H IV 02/01/18 14:34 Future Hold 02/02/18 10:34 Sodium Chloride (NS Flush) 2 ml BID IV FLUSH 02/01/18 21:00 02/05/18 08:24 Acetaminophen (Tylenol) 650 mg Q4H PRN PO TEMP > 100.4 02/01/18 14:45 02/03/18 12:45 Heparin Sodium (Porcine) (Heparin Inj) 5,000 units Q12H SQ 02/01/18 16:00 Future hold 02/05/18 04:13 Senna/Docusate Sodium (Bridgette-Colace) 1 tab BID PO 02/01/18 21:00 02/05/18 08:23 Magnesium Hydroxide (Milk Of Magndemetrius Liq) 30 ml Q12H PRN PO Mild constipation 02/01/18 14:45 02/05/18 13:15 Insulin Aspart (NovoLOG SUPPLEMENTAL SCALE) 1 ACHS SLIDING SCALE SQ 02/01/18 21:00 02/05/18 12:03 Miscellaneous Information Patient in critical care unit? Ass... [id number] .XX 02/02/18 22:45 02/02/18 22:45 Chlorhexidine Gluconate (Chlorhexidine 2% Cloth) 3 pack DAILY@04 TOPICAL 02/03/18 04:00 02/07/18 04:01 02/05/18 04:00 Methylprednisolone Sodium Succinate (SoluMEDROL INJ) 125 mg Q48H IV PUSH 02/03/18 11:00 02/11/18 11:01 02/03/18 13:00 Famotidine (Pepcid Inj) 20 mg Q48H IV PUSH 02/03/18 11:00 02/11/18 11:01 02/05/18 12:01 Diphenhydramine HCl (Benadryl Inj) 25 mg UNSCH PRN IV PUSH ALLERGIC REACTION 02/03/18 10:30 02/11/18 23:59 02/03/18 16:12 Anticoagulant Citrate Dextose Serene A (Acd Formula Inj) 1,000 ml Q48H OTHER 02/03/18 11:00 02/11/18 11:01 02/03/18 17:02 Calcium Gluconate 3 gm/Sodium Chloride 180 ml @ 90 mls/hr Q48H IV 02/03/18 12:00 02/11/18 13:59 02/03/18 17:03 Albumin Human 3,000 ml @ 250 mls/hr Q48H IV 02/03/18 14:00 02/12/18 01:59 02/03/18 17:03 Sodium Bicarbonate (Sodium Bicarbonate) 650 mg Q12HR PO 02/05/18 12:00 02/05/18 13:15 Objective Remarks GENERAL: Middle aged female, lying in bed in no obvious distress SKIN: Warm and dry. Vas-Cath to right neck. No bruising. HEAD: Normocephalic. EYES: No injection or drainage. NECK: Supple, trachea midline. CARDIOVASCULAR: Regular rate and rhythm RESPIRATORY: Breath sounds equal bilaterally. No accessory muscle use. GASTROINTESTINAL: Abdomen soft, non-tender, nondistended. EXTREMITIES: No cyanosis. No edema NEUROLOGICAL: Increase strength to bilateral lower extremities. Alert and oriented 3. Normal speech. Assessment/Plan Problem List: (1) plasma exchange Status: Acute Plan: --plasma exchange #2 today (every other day for a total of five treatments) --replace plasma with albumin. --monitor CBC, coags, fibrinogen, BMP Assessment 67y/o female with suspected Guillan-[place]. Hematology consulted to arrange plasma exchange. h/o diabetes, hypertension, Plan 1. PEX #2 today 2. Monitor CBC, BMP and coags Attending Statement The exam, history, and the medical decision-making described in the above note were completed with the assistance of the mid-level provider. I reviewed and agree with the findings presented. I attest that I had a [id number] encounter with the patient on the same day, and personally performed and documented my assessment and findings in the medical record. states that her leg weakness has improved after the first Pheresis on tuesday. second pheresis today. coags are Ok. D/W nancy. Margarette Ashby Feb 05, 2018 15:08 Marjorie Steel MD Feb 05, 2018 22:52
[2018-02-05] MEDS: GABAPENTIN 400 MG CAP PO SCH (17:17)
[2018-02-05] MEDS: ALBUMIN 5% IV SCH (21:04)
[2018-02-05] MEDS: CALCIUM GLUCONATE INJ 3 GM in SODIUM CHLORIDE 0.9% INJ 150 ML IV SCH (22:22)
[2018-02-06] VITALS (14 sets, daily range): BP systolic 90–144; BP diastolic 53–65; PULSE 61–88; RESP 16–22; TEMP 97.6–98.7; O2SAT 95–99
[2018-02-06] MEDS: CHLORHEXIDINE GLUCONATE 2 % 1 PACK (2 CLOTHS)(taper/protocol) TOPICAL SCH (04:00)
[2018-02-06] MEDS: HEPARIN SODIUM - SQ 10,000 UNITS/ML VIAL SQ SCH ×2 (04:27→15:21)
[2018-02-06] MEDS: ACETAMINOPHEN/HYDROcodone 325 MG/10 MG TAB PO PRN ×2 (04:28→21:17)
[2018-02-06 04:49] LABS: AUTOMATED NEUTROPHIL # 3.7 TH/MM3 (1.8-7.7); BASOPHIL # 0.1 TH/MM3 (0-0.2); EOSINOPHIL # 0.9 TH/MM3 (0-0.4); EOSINOPHIL % 9.4 % (0.0-4.0); HEMATOCRIT 26.6 % (35.0-46.0); HEMOGLOBIN 9.2 GM/DL (11.6-15.3); LYMPH % 42.3 % (9.0-44.0); LYMPHOCYTE # 3.9 TH/MM3 (1.0-4.8); MEAN CORPUSCULAR HEMOGLOBIN 30.5 PG (27.0-34.0); MEAN CORPUSCULAR HGB CONC 34.7 % (32.0-36.0); MONO % 6.9 % (0.0-8.0); MONOCYTE # 0.6 TH/MM3 (0-0.9); NEUT % 40.4 % (16.0-70.0); PLATELET COUNT 289 TH/MM3 (150-450); RED BLOOD COUNT 3.02 MIL/MM3 (4.00-5.30); RED CELL DISTRIBUTION WIDTH 14.4 % (11.6-17.2); WHITE BLOOD COUNT 9.3 TH/MM3 (4.0-11.0)
[2018-02-06 05:10] LABS: INTERNATIONAL NORMALIZED RATIO 1.4 RATIO; PROTHROMBIN TIME - PATIENT 13.8 SEC (9.8-11.6)
[2018-02-06 05:24] LABS: CALCIUM 8.7 MG/DL (8.5-10.1); CREATININE 1.2 MG/DL (0.50-1.00)
[2018-02-06] MEDS: INSULIN ASPART SUPPLEMENTAL SCALE SQ SCH ×4 (08:37→21:18)
[2018-02-06] MEDS: DOCUSATE SODIUM 50 MG/SENNA 8.6 MG TAB PO SCH ×2 (08:39→21:18)
[2018-02-06] MEDS: SODIUM BICARBONATE 650 MG TAB PO SCH ×2 (08:39→21:18)
[2018-02-06] MEDS: POTASSIUM CHLORIDE 20 MEQ CONTROLLED RELEASE TAB PO SCH (08:40)
[2018-02-06] MEDS: FERROUS SULFATE 325 MG (65 MG ELEMENTAL IRON) TAB PO SCH ×2 (08:40→21:18)
[2018-02-06] MEDS: GEMFIBROZIL 600 MG TAB PO SCH (08:40)
[2018-02-06] MEDS: PANTOPRAZOLE SOD 40 MG DELAYED RELEASE TAB PO SCH (08:40)
[2018-02-06] MEDS: CARVEDILOL 12.5 MG TAB PO SCH ×2 (08:40→21:18)
[2018-02-06] MEDS: PRAVASTATIN SOD 10 MG TAB PO SCH (08:40)
[2018-02-06] MEDS: GABAPENTIN 400 MG CAP PO SCH ×3 (08:41→17:07)
[2018-02-06] MEDS: SODIUM CHLORIDE 0.9% FLUSH 10 ML FLUSH IV FLUSH SCH ×2 (08:41→21:19)
--- NOTE | 2018-02-06 09:58 | HHI.NPPN ---
Subjective History of Present Illness This is a 67-year-old female with past medical history diabetes mellitus, hypertension, ischemic heart disease, history of recurrent urinary tract infection, patient with history of pyelonephritis and acute kidney injury, was brought to the hospital because of generalized weakness and decreased oral intake. I was called to see the patient because of elevated BUN and creatinine. The patient has history of acute kidney injury and she as seen by me when she was here in October. At that time, her creatinine was as high as 4.6, this was in September, and then it improved and the creatinine stayed in a range of 1.1-1.2 most of the time. The patient has the last creatinine of 1.3, which was in November 2017. Now, she came with a creatinine of 1.2. The patient admits that she has not been eating very well for the last week or so.She has been feeling weak and tired. There is no nausea or vomiting. No history of diarrhea. She denies taking any nonsteroidal anti-inflammatory drug. There is no hematuria or dysuria. She did not notice any decrease in the urine output. Additional Remarks . Patient is Alert and oriented in good spirits. (Lidya Gill) Renal Failure: Acute (Pita Huitron MD) Review of Systems Respiratory Respiratory Remarks Denies SOB (Lidya Gill) Cardiovascular Cardiac Remarks Denies any CP (Lidya Gill) Gastrointestinal GI Remarks Denies any abdominal pain (Lidya Gill) Genitourinary Remarks Denies dysuria (Lidya Gill) Objective Data Data Vital Signs Date Time Temp Pulse Resp B/P (MAP) Pulse Ox O2 Delivery O2 Flow Rate FiO2 02/06/18 08:00 65 02/06/18 06:00 62 02/06/18 04:00 61 02/06/18 04:00 98.0 62 22 123/60 (81) 95 02/06/18 02:00 61 02/06/18 00:00 62 02/06/18 00:00 98.0 63 22 119/60 (79) 98 02/05/18 22:00 66 02/05/18 21:48 100 02/05/18 20:00 98.1 64 22 102/54 (70) 100 02/05/18 20:00 64 02/05/18 18:00 66 02/05/18 16:00 98.0 57 13 121/58 (79) 99 02/05/18 16:00 57 02/05/18 14:00 62 02/05/18 12:00 98.2 70 26 121/57 (78) 90 02/05/18 12:00 70 02/05/18 10:00 55 (Lidya Gill) -: 02/06/18 0427 02/06/18 0427 Tubes & Lines: Vas-Cath (Lidya Gill) Physical Exam General Appearance: No Acute Distress, Comfortable (Lidya Gill) Throat Throat Exam: Oral Mucosa [place] & Moist (Lidya Gill) Pulmonary Resp Exam: Breath Sounds Equal, Decreased Bases (Lidya Gill) Cardiology CV Exam: Regular (Lidya Gill) Gastrointestinal/Abdomen GI Exam: Soft, Non-Tender, Distended (Lidya Gill) Genitourinary Exam: Flank Non-Tender (Lidya Gill) Integumentary Skin Exam: Warm, Dry (Lidya Gill) Extremeties Extremities Exam: No Edema (Lidya Gill) Neurologic Neuro Exam: Alert, Awake, Oriented Neuro Remarks speech delayed (Lidya Gill) Psychiatric Psych Exam: Appropriate Responses (Lidya Gill) Assessment/Plan Assessment Summary: DELLA/Acute Renal Failure, CKD Stage III Electrolyte Assessment: Hypokalemia Problem List: (1) DELLA (acute kidney injury) ICD Codes: N17.9 - Acute kidney failure, unspecified Status: Acute Plan: Acute kidney injury most likely related to prerenal azotemia with poor intake Creatinine is stable Non oliguric Neurology note noted Vas cath placed and patient has been receiving plasmapheresis Avoid nephrotoxins, HCO3 improved Follow the urine output and the BUN, creatinine. (2) Generalized weakness ICD Codes: R53.1 - Weakness Status: Acute (3) Peripheral neuropathy ICD Codes: G62.9 - Polyneuropathy, unspecified Status: Acute (4) Diabetes mellitus ICD Codes: E11.9 - Type 2 diabetes mellitus without complications Status: Chronic (5) Hypertension ICD Codes: I10 - Essential (primary) hypertension Status: Chronic Plan: Well controlled (Lidya Gill) Problem List: (1) DELLA (acute kidney injury) ICD Codes: N17.9 - Acute kidney failure, unspecified Status: Acute Plan: Acute kidney injury most likely related to prerenal azotemia with poor intake Creatinine is stable Non oliguric Neurology note noted Vas cath placed and patient has been receiving plasmapheresis Avoid nephrotoxins, HCO3 improved Follow the urine output and the BUN, creatinine. Patient seen and examined, agree with above. Encourage oral intake. (2) Generalized weakness ICD Codes: R53.1 - Weakness Status: Acute (3) Peripheral neuropathy ICD Codes: G62.9 - Polyneuropathy, unspecified Status: Acute (4) Diabetes mellitus ICD Codes: E11.9 - Type 2 diabetes mellitus without complications Status: Chronic (5) Hypertension ICD Codes: I10 - Essential (primary) hypertension Status: Chronic Plan: Well controlled (Pita Huitron MD) Problem Qualifiers (1) Peripheral neuropathy: Qualified Codes: G62.9 - Polyneuropathy, unspecified (2) Diabetes mellitus: Qualified Codes: E11.22 - Type 2 diabetes mellitus with diabetic chronic kidney disease (3) Hypertension: Qualified Codes: I10 - Essential (primary) hypertension Lidya Gill Feb 06, 2018 09:58 Pita Huitron MD Feb 06, 2018 18:42
--- NOTE | 2018-02-06 11:57 | HHI.FPPN ---
Subjective Remarks Patient endorses improvement in strength. Vitals were stable overnight. States she has been using walker and working with PT, no difficulty breathing. Eating well, had a BM. No other complaints. (Miriam Yu MD R1) Objective Vitals Vital Signs Date Time Temp Pulse Resp B/P (MAP) Pulse Ox O2 Delivery O2 Flow Rate FiO2 02/06/18 10:00 67 02/06/18 08:00 97.6 65 18 128/63 (84) 98 02/06/18 08:00 65 02/06/18 06:00 62 02/06/18 04:00 61 02/06/18 04:00 98.0 62 22 123/60 (81) 95 02/06/18 02:00 61 02/06/18 00:00 62 02/06/18 00:00 98.0 63 22 119/60 (79) 98 02/05/18 22:00 66 02/05/18 21:48 100 02/05/18 20:00 98.1 64 22 102/54 (70) 100 02/05/18 20:00 64 02/05/18 18:00 66 02/05/18 16:00 98.0 57 13 121/58 (79) 99 02/05/18 16:00 57 02/05/18 14:00 62 02/05/18 12:00 98.2 70 26 121/57 (78) 90 02/05/18 12:00 70 I/O 02/05/18 02/05/18 02/05/18 02/06/18 02/06/18 02/06/18 07:00 15:00 23:00 07:00 15:00 23:00 Intake Total 480 ml 475 ml 460 ml Output Total 1300 ml 875 ml Balance -820 ml -400 ml 460 ml Intake Oral 480 ml 475 ml 460 ml Output Urine Total 1300 ml 875 ml # Voids 2 2 2 # Bowel Movements 0 0 1 (Miriam Yu MD R1) Result Diagram: 02/06/1842602/06/18426 Objective Remarks GENERAL: This is a pleasant middle-aged female, soft-spoken, lying comfortably in bed. Is smiling and talkative today. SKIN: Cool and dry. EYES: Pupils equal round and reactive. Extraocular motions intact. No scleral icterus. No injection or drainage. NECK: Trachea midline. No JVD or lymphadenopathy. CARDIOVASCULAR: Regular rate and rhythm without murmurs, gallops, or rubs. RESPIRATORY: Clear to auscultation. Breath sounds equal bilaterally. GASTROINTESTINAL: Abdomen soft, non-tender, nondistended. MUSCULOSKELETAL: Extremities without clubbing, cyanosis, or edema. NEUROLOGICAL: Awake and alert. Cranial nerves II through XII intact. 4/5 strength bilaterally in the lower extremities. 5/5 breaker mechanic strength in UEs. Normal speech. Procedures Vas-cath placement 02/03/18 Plasmapheresis 02/03/18 (Miriam Yu MD R1) Date of Insertion: Feb 03, 2018 (Miriam Yu MD R1) A/P Assessment and Plan 67-year-old female with history of poorly controlled diabetes and gastroparesis presents with DELLA and generalized weakness, unable to get up out of chair. Heme/ Onc, neurology and nephrology consulted. 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 Discharge Planning Plasmapheresis by Heme/Onc every other day x 5 (start 02/03/18 - tentative completion 02/11/18) (Miriam Yu MD R1) Attending Attestation Patient seen and examined. Case reviewed and discussed with the resident team. Agree with plan of care as discussed with me and documented in the resident note. 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 Reflexes were present which confused the issue Physical therapy, Occupational therapy, Neurology consulted. Plasmapharesis initiated per Neuro recs Case management consult, patient may need placement at discharge Speech recs mechanical soft diet and thin liquids on d/c Heme-Onc consulted and following recs: -5 treatments of plasmapheresis; vas-cath and start plasmapheresis 02/03/17 - tentative completion 02/11/18 -Daily CBC, BMP, Coags -Improved UE and LE strength today -XANDER and VDRL/RPR labs pending EMG study as outpt (2) plasma exchange Status: Acute Plan: As above -- Heme/Onc has ordered 5 plasmapheresis treatments spaced every other day; vas-cath has been placed as of 02/03/18 s/p 2 treatments today (3) Respiratory abnormality ICD Codes: J98.9 - Respiratory disorder, unspecified Status: Acute Plan: her vital capacity was .65 of a liter. per calculations she should be approximately 1 liter. R 18, satting well on room air. If she is too low then many people end up on a ventilator. will order another vital capacity for tomorrow. will need to consult Craft Artist if she is any lower. she will be watched in IMC to be sure she does well with her breathing. she will start plasmapheresis and hopefully will begin to improve FVC wnl this morning; discussed need for several FVC checks today with nursing and RT -RT to monitor vital capacity (if <65%, page and consider intubation) (4) DELLA (acute kidney injury) ICD Codes: N17.9 - Acute kidney failure, unspecified Status: Resolved Plan: Acute on chronic kidney injury. BUN 60 / Cr 2.25 on admit--> 30/1.2 today , trending down Urine output .875 L DELLA from prerenal azotemia from poor intake, improving with maintenance IVF Nephrology consulted, appreciate recs Avoid nephrotoxic agents (5) Peripheral neuropathy ICD Codes: G62.9 - Polyneuropathy, unspecified Status: Acute Plan: Patient has had benefit from gabapentin in past -- complains of burning and numbness in feet this morning -Gabapentin 600mg TID (per Dr Joiner, neurology) (6) Hypertension ICD Codes: I10 - Essential (primary) hypertension Status: Chronic Plan: Controlled Continue home carvedilol, amlodipine Hydralazine 10mg PO PRN q6h SBP>180 OR DBP>100 (7) Diabetes mellitus ICD Codes: E11.9 - Type 2 diabetes mellitus without complications Status: Chronic Plan: Diabetes with kidney injury. Noncompliant as an outpatient Sliding scale insulin while inpatient Patient likely would benefit from long-acting insulin as an outpatient if she will be compliant. Hemoglobin A1c 7.5 (8) Anemia ICD Codes: D64.9 - Anemia, unspecified Status: Chronic Plan: Hgb 9.2 today -Continue FeSO4 325mg PO BID (9) FEN Status: Acute Plan: Fluids: Normal saline at maintenance rate Electrodes: Monitor and replace as needed Nutrition: Diabetic diet Prophylaxis: Heparin, SCDs Bowel regimen - as needed (Miriam Yu MD R1) Problem Qualifiers (1) Peripheral neuropathy: Qualified Codes: G62.9 - Polyneuropathy, unspecified (2) Hypertension: Qualified Codes: I10 - Essential (primary) hypertension (3) Diabetes mellitus: Qualified Codes: E11.22 - Type 2 diabetes mellitus with diabetic chronic kidney disease (4) Anemia: Qualified Codes: D50.9 - Iron deficiency anemia, unspecified Miriam Yu MD R1 Feb 06, 2018 11:57 Desirae Clark MD Feb 13, 2018 20:57
[2018-02-06] MEDS: ACETAMINOPHEN 325 MG TAB PO PRN (12:23)
[2018-02-06] MEDS: diphenhydrAMINE HCL 50 MG/ML VIAL IV PUSH PRN (12:24)
--- NOTE | 2018-02-06 14:33 | PD.ONC.PN ---
Subjective Subjective Remarks Afebrile overnight. Patient resting in room. reports improvement of symptoms since starting plasma exchange on Tuesday. states pain/burning in feet improved and walking improved. denies bleeding. Objective Data Date Time Temp Pulse Resp B/P (MAP) Pulse Ox O2 Delivery O2 Flow Rate FiO2 02/06/18 14:15 98.6 61 16 112/57 97 02/06/18 13:58 70 140/64 98 02/06/18 13:43 20 02/06/18 13:34 98.6 70 20 90/53 99 02/06/18 12:31 98.7 62 18 136/62 (86) 98 02/06/18 10:00 67 02/06/18 08:00 97.6 65 18 128/63 (84) 98 02/06/18 08:00 65 02/06/18 06:00 62 02/06/18 04:00 61 02/06/18 04:00 98.0 62 22 123/60 (81) 95 02/06/18 02:00 61 02/06/18 00:00 62 02/06/18 00:00 98.0 63 22 119/60 (79) 98 02/05/18 22:00 66 02/05/18 21:48 100 02/05/18 20:00 98.1 64 22 102/54 (70) 100 02/05/18 20:00 64 02/05/18 18:00 66 02/05/18 16:00 98.0 57 13 121/58 (79) 99 02/05/18 16:00 57 02/06/18 02/06/18 02/06/18 07:00 15:00 23:00 Intake Total 460 ml 25 ml Balance 460 ml 25 ml Result Diagram: 02/06/18 0427 02/06/18 0427 Laboratory Results Laboratory Tests Test 02/06/18 04:27 White Blood Count 9.3 TH/MM3 Red Blood Count 3.02 MIL/MM3 Hemoglobin 9.2 GM/DL Hematocrit 26.6 % Mean Corpuscular Volume 88.0 FL Mean Corpuscular Hemoglobin 30.5 PG Mean Corpuscular Hemoglobin Concent 34.7 % Red Cell Distribution Width 14.4 % Platelet Count 289 TH/MM3 Mean Platelet Volume 7.0 FL Neutrophils (%) (Auto) 40.4 % Lymphocytes (%) (Auto) 42.3 % Monocytes (%) (Auto) 6.9 % Eosinophils (%) (Auto) 9.4 % Basophils (%) (Auto) 1.0 % Neutrophils # (Auto) 3.7 TH/MM3 Lymphocytes # (Auto) 3.9 TH/MM3 Monocytes # (Auto) 0.6 TH/MM3 Eosinophils # (Auto) 0.9 TH/MM3 Basophils # (Auto) 0.1 TH/MM3 CBC Comment DIFF FINAL Differential Comment Prothrombin Time 13.8 SEC Prothromb Time International Ratio 1.4 RATIO Activated Partial Thromboplast Time 30.6 SEC Fibrinogen 63 mg/dL Blood Urea Nitrogen 30 MG/DL Creatinine 1.20 MG/DL Random Glucose 170 MG/DL Calcium Level 8.7 MG/DL Sodium Level 143 MEQ/L Potassium Level 4.6 MEQ/L Chloride Level 115 MEQ/L Carbon Dioxide Level 20.0 MEQ/L Anion Gap 8 MEQ/L Estimat Glomerular Filtration Rate 55 ML/MIN Administered Medications Medications (Trade) Dose Ordered Sig/Alisha Route PRN Reason Start Time Stop Time Status Last Admin Dose Admin Amlodipine Besylate (Norvasc) 10 mg DAILY PO 02/01/18 14:30 02/06/18 08:41 Aspirin (Ecotrin Ec) 325 mg DAILY PO 02/01/18 14:30 Future Hold 02/01/18 15:46 Carvedilol (Coreg) 12.5 mg Q12HR PO 02/01/18 21:00 02/06/18 08:40 Ferrous Sulfate (Ferrous Sulfate) 325 mg BID PO 02/02/18 09:00 02/06/18 08:40 Gemfibrozil (Lopid) 300 mg DAILY PO 02/02/18 09:00 02/06/18 08:40 Acetaminophen/ Hydrocodone Bitart ([place] 10-325 Mg) 1 tab Q4H PRN PO PAIN SCALE 1-10 02/01/18 14:30 02/06/18 04:28 Pantoprazole Sodium (Protonix) 40 mg DAILY PO 02/02/18 09:00 02/06/18 08:40 Pravastatin Sodium (Pravachol) 10 mg DAILY PO 02/02/18 09:00 02/06/18 08:40 Sodium Chloride 1,000 ml @ 100 mls/hr Q10H IV 02/01/18 14:34 Future Hold 02/02/18 10:34 Sodium Chloride (NS Flush) 2 ml BID IV FLUSH 02/01/18 21:00 02/06/18 08:41 Acetaminophen (Tylenol) 650 mg Q4H PRN PO TEMP > 100.4 02/01/18 14:45 02/06/18 12:23 Heparin Sodium (Porcine) (Heparin Inj) 5,000 units Q12H SQ 02/01/18 16:00 Future hold 02/06/18 04:27 Senna/Docusate Sodium (Bridgette-Colace) 1 tab BID PO 02/01/18 21:00 02/06/18 08:39 Magnesium Hydroxide (Milk Of Nicolasa Balbuena) 30 ml Q12H PRN PO Mild constipation 02/01/18 14:45 02/05/18 13:15 Insulin Aspart (NovoLOG SUPPLEMENTAL SCALE) 1 ACHS SLIDING SCALE SQ 02/01/18 21:00 02/06/18 12:00 Miscellaneous Information Patient in critical care unit? Ass... [id number] .XX 02/02/18 22:45 02/02/18 22:45 Chlorhexidine Gluconate (Chlorhexidine 2% Cloth) 3 pack DAILY@04 TOPICAL 02/03/18 04:00 02/07/18 04:01 02/05/18 04:00 Methylprednisolone Sodium Succinate (SoluMEDROL INJ) 125 mg Q48H IV PUSH 02/03/18 11:00 02/11/18 11:01 02/03/18 13:00 Famotidine (Pepcid Inj) 20 mg Q48H IV PUSH 02/03/18 11:00 02/11/18 11:01 02/05/18 12:01 Diphenhydramine HCl (Benadryl Inj) 25 mg UNSCH PRN IV PUSH ALLERGIC REACTION 02/03/18 10:30 02/11/18 23:59 02/06/18 12:24 Anticoagulant Citrate Dextose Serene A (Acd Formula Inj) 1,000 ml Q48H OTHER 02/03/18 11:00 02/11/18 11:01 02/03/18 17:02 Calcium Gluconate 3 gm/Sodium Chloride 180 ml @ 90 mls/hr Q48H IV 02/03/18 12:00 02/11/18 13:59 02/05/18 22:22 Albumin Human 3,000 ml @ 250 mls/hr Q48H IV 02/03/18 14:00 02/12/18 01:59 02/05/18 21:04 Sodium Bicarbonate (Sodium Bicarbonate) 650 mg Q12HR PO 02/05/18 12:00 02/06/18 08:39 Gabapentin (Neurontin) 400 mg TID PO 02/05/18 18:00 02/06/18 12:23 Objective Remarks GENERAL: Middle aged female, sitting up in bed in [facility]. SKIN: Warm and dry. HEAD: Normocephalic. EYES: No injection or drainage. NECK: Supple, trachea midline. CARDIOVASCULAR: Regular rate and rhythm RESPIRATORY: Breath sounds equal bilaterally. No accessory muscle use. GASTROINTESTINAL: Abdomen soft, non-tender, nondistended. EXTREMITIES: No cyanosis NEUROLOGICAL: awake and alert, normal speech. moving extremities. Assessment/Plan Problem List: (1) plasma exchange Status: Acute Plan: 02/06--off day today. give cryo 02/05: PEX #2 02/04: off day 02/03: PEX # 1 --replace plasma with albumin. 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 Hematology consulted to arrange plasma exchange. h/o diabetes, hypertension, Plan 1. off day today 2. give 1 unit cryo for fibrinogen less than 100 3. monitor CBC, coags Attending Statement The exam, history, and the medical decision-making described in the above note were completed with the assistance of the mid-level provider. I reviewed and agree with the findings presented. I attest that I had a [id number] encounter with the patient on the same day, and personally performed and documented my assessment and findings in the medical record. feels more alert and awake today eating breakfast when I rounded RN bedside says she has more energy in upper and lower extremities continue plasma exchange every other day Transfuse cryo today for fibrinogen less 100 daily fibrinogen and cbc Nupur Ricketts Feb 06, 2018 14:33 Chilo Wallace MD Feb 06, 2018 22:17
[2018-02-06 14:43] LABS: ANA SCREEN NEG (NEG)
--- NOTE | 2018-02-06 15:20 | HHI.PR ---
Subjective Remarks legs feel stronger had 3 plex on cryoprecipitate for low fibrinogen. O;awake alert breathing ok perrla speech intact face no droop motor ue nl 5/5 le 4/5 dtrs trace to 1+knees neuropathy a/p gbs neuropathy gabapentin plex tomorrow for total 5 if able to receive PT daily Objective Vital Signs Date Time Temp Pulse Resp B/P (MAP) Pulse Ox O2 Delivery O2 Flow Rate FiO2 02/06/18 14:15 98.6 61 16 112/57 97 02/06/18 13:58 70 140/64 98 02/06/18 13:43 20 02/06/18 13:34 98.6 70 20 90/53 99 02/06/18 12:31 98.7 62 18 136/62 (86) 98 02/06/18 10:00 67 02/06/18 08:00 97.6 65 18 128/63 (84) 98 02/06/18 08:00 65 02/06/18 06:00 62 02/06/18 04:00 61 02/06/18 04:00 98.0 62 22 123/60 (81) 95 02/06/18 02:00 61 02/06/18 00:00 62 02/06/18 00:00 98.0 63 22 119/60 (79) 98 02/05/18 22:00 66 02/05/18 21:48 100 02/05/18 20:00 98.1 64 22 102/54 (70) 100 02/05/18 20:00 64 02/05/18 18:00 66 02/05/18 16:00 98.0 57 13 121/58 (79) 99 02/05/18 16:00 57 I/O 02/05/18 02/05/18 02/05/18 02/06/18 02/06/18 02/06/18 07:00 15:00 23:00 07:00 15:00 23:00 Intake Total 480 ml 475 ml 460 ml 25 ml Output Total 1300 ml 875 ml Balance -820 ml -400 ml 460 ml 25 ml Intake Oral 480 ml 475 ml 460 ml Blood Product IV Normal Saline Flush 25 ml Output Urine Total 1300 ml 875 ml # Voids 2 2 2 # Bowel Movements 0 0 1 Result Diagram: 02/06/1842602/06/18426 Assessment and Plan Assessment and Plan a/p gbs neuropathy Tessie Dow MD Feb 06, 2018 15:20
[2018-02-07] VITALS (9 sets, daily range): BP systolic 113–160; BP diastolic 57–77; PULSE 60–93; RESP 17–20; TEMP 97.6–99.1; O2SAT 97–100
[2018-02-07] MEDS: ACETAMINOPHEN/HYDROcodone 325 MG/10 MG TAB PO PRN ×5 (01:23→20:53)
[2018-02-07] MEDS: HEPARIN SODIUM - SQ 10,000 UNITS/ML VIAL SQ SCH ×2 (03:36→16:58)
[2018-02-07] MEDS: CHLORHEXIDINE GLUCONATE 2 % 1 PACK (2 CLOTHS)(taper/protocol) TOPICAL SCH (04:00)
[2018-02-07] MEDS: INSULIN ASPART SUPPLEMENTAL SCALE SQ SCH ×4 (08:00→20:52)
[2018-02-07] MEDS: GABAPENTIN 400 MG CAP PO SCH ×3 (08:20→16:51)
[2018-02-07] MEDS: GEMFIBROZIL 600 MG TAB PO SCH (08:20)
[2018-02-07] MEDS: SODIUM CHLORIDE 0.9% FLUSH 10 ML FLUSH IV FLUSH SCH ×2 (08:20→20:53)
[2018-02-07] MEDS: SODIUM BICARBONATE 650 MG TAB PO SCH ×2 (08:21→20:52)
[2018-02-07] MEDS: FERROUS SULFATE 325 MG (65 MG ELEMENTAL IRON) TAB PO SCH ×2 (08:21→20:53)
[2018-02-07] MEDS: CARVEDILOL 12.5 MG TAB PO SCH ×2 (08:21→20:53)
[2018-02-07] MEDS: PANTOPRAZOLE SOD 40 MG DELAYED RELEASE TAB PO SCH (08:21)
[2018-02-07] MEDS: PRAVASTATIN SOD 10 MG TAB PO SCH (08:22)
[2018-02-07] MEDS: DOCUSATE SODIUM 50 MG/SENNA 8.6 MG TAB PO SCH ×2 (08:22→20:53)
[2018-02-07 09:32] LABS: AUTOMATED NEUTROPHIL # 2.3 TH/MM3 (1.8-7.7); BASOPHIL # 0.1 TH/MM3 (0-0.2); EOSINOPHIL % 12.8 % (0.0-4.0); HEMATOCRIT 28.9 % (35.0-46.0); HEMOGLOBIN 9.9 GM/DL (11.6-15.3); LYMPH % 48.5 % (9.0-44.0); MEAN CELL VOLUME 88.8 FL (80.0-100.0); MEAN CORPUSCULAR HEMOGLOBIN 30.4 PG (27.0-34.0); MEAN CORPUSCULAR HGB CONC 34.2 % (32.0-36.0); MEAN PLATELET VOLUME 7.1 FL (7.0-11.0); MONO % 9.2 % (0.0-8.0); MONOCYTE # 0.8 TH/MM3 (0-0.9); NEUT % 28.5 % (16.0-70.0); PLATELET COUNT 275 TH/MM3 (150-450); RED BLOOD COUNT 3.26 MIL/MM3 (4.00-5.30); RED CELL DISTRIBUTION WIDTH 14.3 % (11.6-17.2); WHITE BLOOD COUNT 8.2 TH/MM3 (4.0-11.0)
[2018-02-07 09:53] LABS: BICARBONATE 21.2 MEQ/L (21.0-32.0); CALCIUM 9.4 MG/DL (8.5-10.1); CREATININE 1.38 MG/DL (0.50-1.00)
--- NOTE | 2018-02-07 12:35 | HHI.NPPN ---
Subjective Renal Failure: Acute History of Present Illness This is a 67-year-old female with past medical history diabetes mellitus, hypertension, ischemic heart disease, history of recurrent urinary tract infection, patient with history of pyelonephritis and acute kidney injury, was brought to the hospital because of generalized weakness and decreased oral intake. I was called to see the patient because of elevated BUN and creatinine. The patient has history of acute kidney injury and she as seen by me when she was here in October. At that time, her creatinine was as high as 4.6, this was in September, and then it improved and the creatinine stayed in a range of 1.1-1.2 most of the time. The patient has the last creatinine of 1.3, which was in November 2017. Now, she came with a creatinine of 1.2. The patient admits that she has not been eating very well for the last week or so.She has been feeling weak and tired. There is no nausea or vomiting. No history of diarrhea. She denies taking any nonsteroidal anti-inflammatory drug. There is no hematuria or dysuria. She did not notice any decrease in the urine output. Additional Remarks . Patient is Alert and oriented in good spirits. Reports needing more PT (Lidya Gill) Review of Systems Respiratory Respiratory Remarks Denies SOB (Lidya Gill) Cardiovascular Cardiac Remarks Denies any CP (Lidya Gill) Gastrointestinal GI Remarks Denies any abdominal pain (Lidya Gill) Genitourinary Remarks Denies dysuria (Lidya Gill) Objective Data Data Vital Signs Date Time Temp Pulse Resp B/P (MAP) Pulse Ox O2 Delivery O2 Flow Rate FiO2 02/07/18 09:36 99 21 02/07/18 08:00 98.0 68 20 160/77 (104) 99 02/07/18 04:00 98.8 62 18 122/59 (80) 97 02/07/18 00:04 65 02/07/18 00:00 99.1 68 18 138/ 100 02/06/18 20:45 21 02/06/18 20:05 88 02/06/18 20:00 98.5 72 20 144/65 (91) 97 02/06/18 16:41 98.6 65 18 136/63 (87) 99 02/06/18 15:00 65 02/06/18 14:15 98.6 61 16 112/57 97 02/06/18 13:58 70 140/64 98 02/06/18 13:43 20 02/06/18 13:34 98.6 70 20 90/53 99 (Lidya Gill) -: 02/07/18 0831 02/07/18 0831 Tubes & Lines: Vas-Cath (Lidya Gill) Physical Exam General Appearance: No Acute Distress, Comfortable (Lidya Gill) Throat Throat Exam: Oral Mucosa [place] & Moist (Lidya Gill) Pulmonary Resp Exam: Breath Sounds Equal, Decreased Bases (Lidya Gill) Cardiology CV Exam: Regular (Lidya Gill) Gastrointestinal/Abdomen GI Exam: Soft, Non-Tender, Distended (Lidya Gill) Genitourinary Exam: Flank Non-Tender (Lidya Gill) Integumentary Skin Exam: Warm, Dry (Lidya Gill) Extremeties Extremities Exam: No Edema (Lidya Gill) Neurologic Neuro Exam: Alert, Awake, Oriented Neuro Remarks speech delayed (Lidya Gill) Psychiatric Psych Exam: Appropriate Responses (Lidya Gill) Assessment/Plan Assessment Summary: DELLA/Acute Renal Failure, CKD Stage III Electrolyte Assessment: Hypokalemia Problem List: (1) DELLA (acute kidney injury) ICD Codes: N17.9 - Acute kidney failure, unspecified Status: Acute Plan: Acute kidney injury most likely related to prerenal azotemia with poor intake Creatinine is stable Non oliguric Vas cath placed and patient has been receiving plasmapheresis Avoid nephrotoxins Creatine is stable at 1.38 today and good UOP Follow the urine output and the BUN, creatinine. Encourage oral intake. Receiving cryoprecipitate today for low fibrinogen level (2) Generalized weakness ICD Codes: R53.1 - Weakness Status: Acute (3) Peripheral neuropathy ICD Codes: G62.9 - Polyneuropathy, unspecified Status: Acute (4) Diabetes mellitus ICD Codes: E11.9 - Type 2 diabetes mellitus without complications Status: Chronic (5) Hypertension ICD Codes: I10 - Essential (primary) hypertension Status: Chronic Plan: Well controlled (Lidya Gill) Problem List: (1) DELLA (acute kidney injury) ICD Codes: N17.9 - Acute kidney failure, unspecified Status: Acute Plan: Acute kidney injury most likely related to prerenal azotemia with poor intake Creatinine is stable Non oliguric Vas cath placed and patient has been receiving plasmapheresis Avoid nephrotoxins Creatine is stable at 1.38 today and good UOP Follow the urine output and the BUN, creatinine. Encourage oral intake. Receiving cryoprecipitate today for low fibrinogen level. Patient seen and examined, agree with above. Creatinine is stable. (2) Generalized weakness ICD Codes: R53.1 - Weakness Status: Acute (3) Peripheral neuropathy ICD Codes: G62.9 - Polyneuropathy, unspecified Status: Acute (4) Diabetes mellitus ICD Codes: E11.9 - Type 2 diabetes mellitus without complications Status: Chronic (5) Hypertension ICD Codes: I10 - Essential (primary) hypertension Status: Chronic Plan: Well controlled (Pita Huitron MD) Problem Qualifiers (1) Peripheral neuropathy: Qualified Codes: G62.9 - Polyneuropathy, unspecified (2) Diabetes mellitus: Qualified Codes: E11.22 - Type 2 diabetes mellitus with diabetic chronic kidney disease (3) Hypertension: Qualified Codes: I10 - Essential (primary) hypertension Lidya Gill Feb 07, 2018 12:35 Pita Huitron MD Feb 07, 2018 20:41
--- NOTE | 2018-02-07 13:07 | HHI.FPPN ---
Subjective Remarks Ms Cohen is so happy to be improved. She thought she would when she became weaker and weaker over time. She is able to walk with a walker but still reports some weakness and needing assistance. She has some remaining issues with balance as well so she is continuing on PT. Per pt she will get 3 more plasmapheresis treatments as she is so improved and these are working well. She still has some remaining pain in her feet up to the ankles but with each treatment, her pain has improved as well. her only other complaint was some constipation. Objective Vitals Vital Signs Date Time Temp Pulse Resp B/P (MAP) Pulse Ox O2 Delivery O2 Flow Rate FiO2 02/07/18 12:00 98.9 60 20 121/58 (79) 99 02/07/18 09:36 99 21 02/07/18 08:00 98.0 68 20 160/77 (104) 99 02/07/18 04:00 98.8 62 18 122/59 (80) 97 02/07/18 00:04 65 02/07/18 00:00 99.1 68 18 138/ 100 02/06/18 20:45 21 02/06/18 20:05 88 02/06/18 20:00 98.5 72 20 144/65 (91) 97 02/06/18 16:41 98.6 65 18 136/63 (87) 99 02/06/18 15:00 65 02/06/18 14:15 98.6 61 16 112/57 97 02/06/18 13:58 70 140/64 98 02/06/18 13:43 20 02/06/18 13:34 98.6 70 20 90/53 99 I/O 02/06/18 02/06/18 02/06/18 02/07/18 02/07/18 02/07/18 07:00 15:00 23:00 07:00 15:00 23:00 Intake Total 460 ml 25 ml 730 ml Output Total 550 ml Balance 460 ml 25 ml 730 ml -550 ml Intake Oral 460 ml 480 ml Cryoprecipitate 250 ml Blood Product IV Normal Saline Flush 25 ml Output Urine Total 550 ml # Voids 2 3 # Bowel Movements 1 0 0 Result Diagram: 02/07/1883002/07/1831 Objective Remarks GENERAL: This is a pleasant, sweet middle-aged female, soft-spoken, lying comfortably in bed. Is smiling and talkative today. this exam report is based on earlier exams as well as today's SKIN: Cool and dry. EYES: Extraocular motions intact. No scleral icterus. No injection or drainage. NECK: Trachea midline. No JVD or lymphadenopathy. CARDIOVASCULAR: Regular rate and rhythm without murmurs, gallops, or rubs. RESPIRATORY: Clear to auscultation. Breath sounds equal bilaterally. GASTROINTESTINAL: Abdomen soft, non-tender, nondistended. MUSCULOSKELETAL: Extremities without clubbing, cyanosis, or edema. NEUROLOGICAL: Awake and alert. Cranial nerves II through XII intact. 4/5 strength bilaterally in the lower extremities. 5/5 tariff compiler strength in UEs. Normal speech. Procedures Vas-cath placement 02/03/18 Plasmapheresis 02/03/18 Urinary Catheter: No Vascular Central Line Catheter: Yes Date of Insertion: Feb 03, 2018 A/P Assessment and Plan 67-year-old female with history of poorly controlled diabetes and gastroparesis presents with DELLA and generalized weakness, unable to get up out of chair. Heme/ Onc, neurology and nephrology consulted. 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 Reflexes were present which confused the issue Physical therapy, Occupational therapy, Neurology consulted. Plasmapheresis initiated per Neuro recs, done by Heme Kasandra her original low forced vital capacity of 65% of normal, became normal with plasmapheresis Case management consulted, patient may need placement at discharge. will see how much improvement she gets over the next week Speech recs mechanical soft diet and thin liquids on d/c Heme-Onc consulted and following recs: -5 treatments of plasmapheresis; vas-cath and start plasmapheresis 02/03/17 - tentative completion 02/11/18 -Daily CBC, BMP, Coags -Improved UE and LE strength today -XANDER and VDRL/RPR labs all normal so far EMG study as outpt she has some labile BPs which can also result from GB. So far they have not been extremely variable but will watch for that. would not overtreat the higher pressers as if she drops the GB can push the pressures or pulse lower (2) plasma exchange Status: Acute Plan: As above -- Heme/Onc has ordered 5 plasmapheresis treatments spaced every other day; vas-cath has been placed as of 02/03/18 s/p 3 treatments with the third to be done today. the last treatment will be the if everything goes by expectations (3) DELLA (acute kidney injury) ICD Codes: N17.9 - Acute kidney failure, unspecified Status: Acute Plan: Acute on chronic kidney injury. BUN 60 / Cr 2.25 on admit--> 30/1.2 trending down Urine output .875 L DELLA from prerenal azotemia from poor intake, improving with maintenance IVF Nephrology consulted, appreciate recs Avoid nephrotoxic agents (4) Peripheral neuropathy ICD Codes: G62.9 - Polyneuropathy, unspecified Status: Acute Plan: Patient has had benefit from gabapentin in past -- complains of burning and numbness in feet this morning -Gabapentin 600mg TID (per Dr Joiner, neurology) suspect this is from her Guillain [place] as she barely had any pain prior to losing the ability to walk. when that happened the pain became unbearable. Now with each plasmapheresis, her pain lessens (5) Hypertension ICD Codes: I10 - Essential (primary) hypertension Status: Chronic Plan: Controlled Continue home carvedilol, amlodipine Hydralazine 10mg PO PRN q6h SBP>180 OR DBP>100 (6) Diabetes mellitus ICD Codes: E11.9 - Type 2 diabetes mellitus without complications Status: Chronic Plan: Diabetes with kidney injury. Noncompliant as an outpatient Sliding scale insulin while inpatient Patient likely would benefit from long-acting insulin as an outpatient if she will be compliant. Hemoglobin A1c 7.5 which is good overall (7) Anemia ICD Codes: D64.9 - Anemia, unspecified Status: Chronic Plan: Hgb 9.2 today -Continue FeSO4 325mg PO BID (8) FEN Status: Acute Plan: Fluids: Normal saline at maintenance rate Electrodes: Monitor and replace as needed Nutrition: Diabetic diet Prophylaxis: Heparin, SCDs Bowel regimen - as needed Problem Qualifiers (1) Peripheral neuropathy: Qualified Codes: G62.9 - Polyneuropathy, unspecified (2) Hypertension: Qualified Codes: I10 - Essential (primary) hypertension (3) Diabetes mellitus: Qualified Codes: E11.22 - Type 2 diabetes mellitus with diabetic chronic kidney disease (4) Anemia: Qualified Codes: D50.9 - Iron deficiency anemia, unspecified Desirae Clark MD Feb 07, 2018 13:07
[2018-02-07] MEDS: CALCIUM GLUCONATE INJ 3 GM in SODIUM CHLORIDE 0.9% INJ 150 ML IV SCH (13:25)
[2018-02-07] MEDS: FAMOTIDINE 20 MG/2 ML VIAL IV PUSH SCH (16:51)
[2018-02-07] MEDS: methylPREDNISolone SOD SUCC 125 MG/2 ML VIAL IV PUSH SCH ×2 (16:52→17:19)
--- NOTE | 2018-02-07 18:54 | PD.ONC.PN ---
Objective Data Date Time Temp Pulse Resp B/P (MAP) Pulse Ox O2 Delivery O2 Flow Rate FiO2 02/07/18 16:00 61 02/07/18 16:00 97.9 93 20 113/57 (75) 99 02/07/18 12:00 98.9 60 20 121/58 (79) 99 02/07/18 12:00 60 02/07/18 09:36 99 21 02/07/18 08:00 98.0 68 20 160/77 (104) 99 02/07/18 04:00 98.8 62 18 122/59 (80) 97 02/07/18 00:04 65 02/07/18 00:00 99.1 68 18 138/ 100 02/06/18 20:45 21 02/06/18 20:05 88 02/06/18 20:00 98.5 72 20 144/65 (91) 97 02/07/18 02/07/18 02/07/18 07:00 15:00 23:00 Intake Total 450 ml Output Total 550 ml 450 ml Balance -550 ml 0 ml Result Diagram: 02/07/18 0831 02/07/18 0831 Laboratory Results Laboratory Tests Test 02/07/18 08:31 White Blood Count 8.2 TH/MM3 Red Blood Count 3.26 MIL/MM3 Hemoglobin 9.9 GM/DL Hematocrit 28.9 % Mean Corpuscular Volume 88.8 FL Mean Corpuscular Hemoglobin 30.4 PG Mean Corpuscular Hemoglobin Concent 34.2 % Red Cell Distribution Width 14.3 % Platelet Count 275 TH/MM3 Mean Platelet Volume 7.1 FL Neutrophils (%) (Auto) 28.5 % Lymphocytes (%) (Auto) 48.5 % Monocytes (%) (Auto) 9.2 % Eosinophils (%) (Auto) 12.8 % Basophils (%) (Auto) 1.0 % Neutrophils # (Auto) 2.3 TH/MM3 Lymphocytes # (Auto) 4.0 TH/MM3 Monocytes # (Auto) 0.8 TH/MM3 Eosinophils # (Auto) 1.0 TH/MM3 Basophils # (Auto) 0.1 TH/MM3 CBC Comment DIFF FINAL Differential Comment Prothrombin Time 10.0 SEC Prothromb Time International Ratio 1.0 RATIO Activated Partial Thromboplast Time 24.0 SEC Fibrinogen 252 mg/dL Blood Urea Nitrogen 28 MG/DL Creatinine 1.38 MG/DL Random Glucose 130 MG/DL Calcium Level 9.4 MG/DL Sodium Level 140 MEQ/L Potassium Level 4.4 MEQ/L Chloride Level 109 MEQ/L Carbon Dioxide Level 21.2 MEQ/L Anion Gap 10 MEQ/L Estimat Glomerular Filtration Rate 46 ML/MIN Administered Medications Medications (Trade) Dose Ordered Sig/Alisha Route PRN Reason Start Time Stop Time Status Last Admin Dose Admin Amlodipine Besylate (Norvasc) 10 mg DAILY PO 02/01/18 14:30 02/07/18 08:20 Aspirin (Ecotrin Ec) 325 mg DAILY PO 02/01/18 14:30 Future Hold 02/01/18 15:46 Carvedilol (Coreg) 12.5 mg Q12HR PO 02/01/18 21:00 02/07/18 08:21 Ferrous Sulfate (Ferrous Sulfate) 325 mg BID PO 02/02/18 09:00 02/07/18 08:21 Gemfibrozil (Lopid) 300 mg DAILY PO 02/02/18 09:00 02/07/18 08:20 Acetaminophen/ Hydrocodone Bitart ([place] 10-325 Mg) 1 tab Q4H PRN PO PAIN SCALE 1-10 02/01/18 14:30 02/07/18 16:15 Pantoprazole Sodium (Protonix) 40 mg DAILY PO 02/02/18 09:00 02/07/18 08:21 Pravastatin Sodium (Pravachol) 10 mg DAILY PO 02/02/18 09:00 02/07/18 08:22 Sodium Chloride 1,000 ml @ 100 mls/hr Q10H IV 02/01/18 14:34 Future Hold 02/02/18 10:34 Sodium Chloride (NS Flush) 2 ml BID IV FLUSH 02/01/18 21:00 02/07/18 08:20 Acetaminophen (Tylenol) 650 mg Q4H PRN PO TEMP > 100.4 02/01/18 14:45 02/06/18 12:23 Heparin Sodium (Porcine) (Heparin Inj) 5,000 units Q12H SQ 02/01/18 16:00 Future hold 02/07/18 16:58 Senna/Docusate Sodium (Bridgette-Colace) 1 tab BID PO 02/01/18 21:00 02/07/18 08:22 Magnesium Hydroxide (Milk Of Magnesia Liq) 30 ml Q12H PRN PO Mild constipation 02/01/18 14:45 02/05/18 13:15 Insulin Aspart (NovoLOG SUPPLEMENTAL SCALE) 1 ACHS SLIDING SCALE SQ 02/01/18 21:00 02/07/18 16:59 Miscellaneous Information Patient in critical care unit? Ass... [id number] .XX 02/02/18 22:45 02/02/18 22:45 Methylprednisolone Sodium Succinate (SoluMEDROL INJ) 125 mg Q48H IV PUSH 02/03/18 11:00 02/11/18 11:01 02/07/18 17:19 Famotidine (Pepcid Inj) 20 mg Q48H IV PUSH 02/03/18 11:00 02/11/18 11:01 02/07/18 16:51 Diphenhydramine HCl (Benadryl Inj) 25 mg UNSCH PRN IV PUSH ALLERGIC REACTION 02/03/18 10:30 02/11/18 23:59 02/06/18 12:24 Anticoagulant Citrate Dextose Serene A (Acd Formula Inj) 1,000 ml Q48H OTHER 02/03/18 11:00 02/11/18 11:01 02/03/18 17:02 Calcium Gluconate 3 gm/Sodium Chloride 180 ml @ 90 mls/hr Q48H IV 02/03/18 12:00 02/11/18 13:59 02/05/18 22:22 Albumin Human 3,000 ml @ 250 mls/hr Q48H IV 02/03/18 14:00 02/12/18 01:59 02/05/18 21:04 Sodium Bicarbonate (Sodium Bicarbonate) 650 mg Q12HR PO 02/05/18 12:00 02/07/18 08:21 Gabapentin (Neurontin) 400 mg TID PO 02/05/18 18:00 02/07/18 16:51 Objective Remarks GENERAL: Well-nourished, well-developed patient. SKIN: Warm and dry. HEAD: Normocephalic. EYES: No scleral icterus. No injection or drainage. NECK: Supple, trachea midline. No JVD or lymphadenopathy. LYMPHATIC: No adenopathy. CARDIOVASCULAR: Regular rate and rhythm without murmurs. RESPIRATORY: Breath sounds equal bilaterally. No accessory muscle use. GASTROINTESTINAL: Abdomen soft, non-tender, nondistended. EXTREMITIES: No cyanosis, or edema. MUSCULOSKELETAL: Adequate muscle tone. NEUROLOGICAL: No obvious focal deficit. Awake, alert, and oriented x3. PSYCHIATRIC: Appropriate mood and affect; insight and judgment normal. Assessment/Plan Problem List: (1) plasma exchange Status: Acute Plan: 02/06--off day today. give cryo 02/05: PEX #2 02/04: off day 02/03: PEX # 1 --replace plasma with albumin. --monitor CBC, coags, fibrinogen, BMP Assessment 67y/o female with suspected Guillan-[place]. Hematology consulted to arrange plasma exchange. h/o diabetes, hypertension, Plan 1. off day today 2. give 1 unit cryo for fibrinogen less than 100 3. monitor CBC, coags Chilo Wallace MD Feb 07, 2018 18:54
[2018-02-08] VITALS (16 sets, daily range): BP systolic 115–161; BP diastolic 56–83; PULSE 56–78; RESP 16–20; TEMP 98–99.3; O2SAT 96–100
[2018-02-08] MEDS: ACETAMINOPHEN/HYDROcodone 325 MG/10 MG TAB PO PRN ×4 (00:50→17:54)
[2018-02-08] MEDS: HEPARIN SODIUM - SQ 10,000 UNITS/ML VIAL SQ SCH ×2 (05:08→17:53)
[2018-02-08] MEDS: INSULIN ASPART SUPPLEMENTAL SCALE SQ SCH ×4 (08:00→21:00)
[2018-02-08] MEDS: DOCUSATE SODIUM 50 MG/SENNA 8.6 MG TAB PO SCH ×2 (08:29→21:44)
[2018-02-08] MEDS: SODIUM CHLORIDE 0.9% FLUSH 10 ML FLUSH IV FLUSH SCH ×2 (08:29→21:45)
[2018-02-08] MEDS: GABAPENTIN 400 MG CAP PO SCH ×3 (08:29→17:53)
[2018-02-08] MEDS: PANTOPRAZOLE SOD 40 MG DELAYED RELEASE TAB PO SCH (08:30)
[2018-02-08] MEDS: GEMFIBROZIL 600 MG TAB PO SCH (08:30)
[2018-02-08] MEDS: FERROUS SULFATE 325 MG (65 MG ELEMENTAL IRON) TAB PO SCH ×2 (08:31→21:44)
[2018-02-08] MEDS: CARVEDILOL 12.5 MG TAB PO SCH ×2 (08:31→21:44)
[2018-02-08 08:51] LABS: AUTOMATED NEUTROPHIL # 5.4 TH/MM3 (1.8-7.7); BASOPHIL % 0.2 % (0.0-2.0); EOSINOPHIL % 0.1 % (0.0-4.0); HEMOGLOBIN 9.3 GM/DL (11.6-15.3); LYMPH % 26.2 % (9.0-44.0); MEAN CELL VOLUME 89.5 FL (80.0-100.0); MEAN CORPUSCULAR HGB CONC 34.6 % (32.0-36.0); MEAN PLATELET VOLUME 7.7 FL (7.0-11.0); MONO % 2.6 % (0.0-8.0); MONOCYTE # 0.2 TH/MM3 (0-0.9); NEUT % 70.9 % (16.0-70.0); PLATELET COUNT 279 TH/MM3 (150-450); RED BLOOD COUNT 3.01 MIL/MM3 (4.00-5.30); RED CELL DISTRIBUTION WIDTH 14.4 % (11.6-17.2); WHITE BLOOD COUNT 7.6 TH/MM3 (4.0-11.0)
[2018-02-08] MEDS: SODIUM BICARBONATE 650 MG TAB PO SCH ×2 (09:05→21:44)
[2018-02-08] MEDS: MAGNESIUM HYDROXIDE SUSP 30 ML CUP PO PRN (09:06)
[2018-02-08] MEDS: PRAVASTATIN SOD 10 MG TAB PO SCH (09:06)
[2018-02-08 09:07] LABS: INTERNATIONAL NORMALIZED RATIO 1.1 RATIO; PROTHROMBIN TIME - PATIENT 11.5 SEC (9.8-11.6)
--- NOTE | 2018-02-08 09:27 | HHI.FPPN ---
Subjective Remarks Patient states she is improving in terms of mobility. Is able to move from bed to chair and bed to commode without assistance. Was able to walk the floor yesterday with the assistance of PT. Is very happy about these results. No other acute Complaints or problems. Received third treatment of plasmapheresis yesterday. (Miriam Yu MD R1) Objective Vitals Vital Signs Date Time Temp Pulse Resp B/P (MAP) Pulse Ox O2 Delivery O2 Flow Rate FiO2 02/08/18 08:00 99.3 69 20 115/59 (77) 96 02/08/18 04:23 98.2 65 17 117/56 (76) 96 02/08/18 03:58 64 02/08/18 00:40 98.0 68 17 126/61 (82) 98 02/08/18 00:03 71 02/07/18 21:34 21 02/07/18 21:03 97.6 70 17 141/66 (91) 97 02/07/18 20:05 73 02/07/18 16:00 61 02/07/18 16:00 97.9 93 20 113/57 (75) 99 02/07/18 12:00 98.9 60 20 121/58 (79) 99 02/07/18 12:00 60 02/07/18 09:36 99 21 I/O 02/07/18 02/07/18 02/07/18 02/08/18 02/08/18 02/08/18 07:00 15:00 23:00 07:00 15:00 23:00 Intake Total 980 ml 240 ml Output Total 550 ml 450 ml 750 ml Balance -550 ml 530 ml -510 ml Intake Oral 450 ml 240 ml IV Total 530 ml Output Urine Total 550 ml 450 ml 750 ml # Bowel Movements 0 0 (Miriam Yu MD R1) Result Diagram: 02/08/18 0650 02/07/18 0831 Objective Remarks GENERAL: This is a pleasant, sweet middle-aged female, soft-spoken, sitting up in chair and eating breakfast. SKIN: Cool and dry. EYES: Extraocular motions intact. No scleral icterus. No injection or drainage. NECK: Trachea midline. No JVD or lymphadenopathy. CARDIOVASCULAR: Regular rate and rhythm without murmurs, gallops, or rubs. RESPIRATORY: Clear to auscultation. Breath sounds equal bilaterally. GASTROINTESTINAL: Abdomen soft, non-tender, nondistended. NEUROLOGICAL: Awake and alert. No focal deficits. 4/5 strength bilaterally in the lower extremities. 5/5 parking lot attendant and cashier strength in UEs. Normal speech. Procedures Vas-cath placement 02/03/18 Plasmapheresis 02/03/18 (Miriam Yu MD R1) Date of Insertion: Feb 03, 2018 (Miriam Yu MD R1) A/P Assessment and Plan 67-year-old female with history of poorly controlled diabetes and gastroparesis presents with DELLA and generalized weakness, unable to get up out of chair. Heme/ Onc, neurology and nephrology consulted. 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 Discharge Planning Plasmapheresis by Heme/Onc every other day x 5 (start 02/03/18 - tentative completion 02/11/18) (Miriam Yu MD R1) Attending Attestation Patient seen and examined. Case reviewed and discussed with the resident team. Agree with plan of care as discussed with me and documented in the resident note. she improves with every treatment (Desirae Clark MD) Problem List: (1) Dizziness ICD Codes: R42 - Dizziness and giddiness Status: Resolved Plan: Has been constant for the last 2-3 months. Patient suspects that has to do with medications because symptom begins after taking medication and resolves before she has to take her next doses in the evening. Feels like the room is spinning. No falls from symptom. 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 Reflexes were present which confused the issue Physical therapy, Occupational therapy, Neurology consulted. Plasmapheresis initiated per Neuro recs, done by Janel Slaughter her original low forced vital capacity of 65% of normal, became normal with plasmapheresis Case management consulted, patient may need placement at discharge. will see how much improvement she gets over the next week Heme-Onc consulted and following recs: -5 treatments of plasmapheresis; vas-cath and start plasmapheresis 02/03/17 - tentative completion 02/11/18 -Daily CBC, BMP, Coags -XANDER and VDRL/RPR labs all normal so far EMG study as outpt she has some labile BPs which can also result from GB. So far they have not been extremely variable but will watch for that. would not overtreat the higher pressers as if she drops the GB can push the pressures or pulse lower (3) plasma exchange Status: Acute Plan: As above -- Heme/Onc has ordered 5 plasmapheresis treatments spaced every other day; vas-cath has been placed as of 02/03/18 Status post 3 treatments. Off day today. the last treatment will be the if everything goes by expectations (4) DELLA (acute kidney injury) ICD Codes: N17.9 - Acute kidney failure, unspecified Status: Resolved Plan: Acute on chronic kidney injury. BUN 60 / Cr 2.25 on admit--> 28/1.35 trending down Urine output .875 L Baseline Mean appears to be 1.2 a stone previous documentation DELLA from prerenal azotemia from poor intake, improving with maintenance IVF Nephrology consulted, appreciate recs Avoid nephrotoxic agents (5) Peripheral neuropathy ICD Codes: G62.9 - Polyneuropathy, unspecified Status: Acute Plan: Patient has had benefit from gabapentin in past -- complains of burning and numbness in feet this morning -Gabapentin 600mg TID (per Dr Joiner, neurology) - suspect this is from her Guillain [place] as she barely had any pain prior to losing the ability to walk. when that happened the pain became unbearable. Now with each plasmapheresis, her pain lessens (6) Hypertension ICD Codes: I10 - Essential (primary) hypertension Status: Chronic Plan: Controlled Continue home carvedilol, amlodipine Hydralazine 10mg PO PRN q6h SBP>180 OR DBP>100 (7) Diabetes mellitus ICD Codes: E11.9 - Type 2 diabetes mellitus without complications Status: Chronic Plan: Diabetes with kidney injury. Noncompliant as an outpatient Sliding scale insulin while inpatient Bedside glucose afternoon 211-233. Fasting glucose of 275 this morning. Start Levemir 7 units hs (8) Anemia ICD Codes: D64.9 - Anemia, unspecified Status: Chronic Plan: Hgb 9.2 today -Continue FeSO4 325mg PO BID (9) FEN Status: Acute Plan: Fluids: None Electrodes: Monitor and replace as needed Nutrition: Diabetic diet Prophylaxis: Heparin, SCDs Bowel regimen - as needed (Miriam Yu MD R1) Problem Qualifiers (1) Peripheral neuropathy: Qualified Codes: G62.9 - Polyneuropathy, unspecified (2) Hypertension: Qualified Codes: I10 - Essential (primary) hypertension (3) Diabetes mellitus: Qualified Codes: E11.22 - Type 2 diabetes mellitus with diabetic chronic kidney disease (4) Anemia: Qualified Codes: D50.9 - Iron deficiency anemia, unspecified Miriam Yu MD R1 Feb 08, 2018 09:27 Desirae Clark MD Feb 13, 2018 21:18
[2018-02-08 09:28] LABS: BICARBONATE 20.7 MEQ/L (21.0-32.0); CALCIUM 8.5 MG/DL (8.5-10.1); CREATININE 1.35 MG/DL (0.50-1.00)
--- NOTE | 2018-02-08 09:46 | HHI.NPPN ---
Subjective Renal Failure: Acute History of Present Illness This is a 67-year-old female with past medical history diabetes mellitus, hypertension, ischemic heart disease, history of recurrent urinary tract infection, patient with history of pyelonephritis and acute kidney injury, was brought to the hospital because of generalized weakness and decreased oral intake. I was called to see the patient because of elevated BUN and creatinine. The patient has history of acute kidney injury and she as seen by me when she was here in October. At that time, her creatinine was as high as 4.6, this was in September, and then it improved and the creatinine stayed in a range of 1.1-1.2 most of the time. The patient has the last creatinine of 1.3, which was in November 2017. Now, she came with a creatinine of 1.2. The patient admits that she has not been eating very well for the last week or so.She has been feeling weak and tired. There is no nausea or vomiting. No history of diarrhea. She denies taking any nonsteroidal anti-inflammatory drug. There is no hematuria or dysuria. She did not notice any decrease in the urine output. Additional Remarks OOB in chair. PT is progressing well. Plasma exchange yesterday. (Lidya Gill) Review of Systems Respiratory Respiratory Remarks Denies SOB (Lidya Gill) Cardiovascular Cardiac Remarks Denies any CP (Lidya Gill) Gastrointestinal GI Remarks Denies any abdominal pain (Lidya Gill) Genitourinary Remarks Denies dysuria (Lidya Gill) Objective Data Data Vital Signs Date Time Temp Pulse Resp B/P (MAP) Pulse Ox O2 Delivery O2 Flow Rate FiO2 02/08/18 08:00 99.3 69 20 115/59 (77) 96 02/08/18 04:23 98.2 65 17 117/56 (76) 96 02/08/18 03:58 64 02/08/18 00:40 98.0 68 17 126/61 (82) 98 02/08/18 00:03 71 02/07/18 21:34 21 02/07/18 21:03 97.6 70 17 141/66 (91) 97 02/07/18 20:05 73 02/07/18 16:00 61 02/07/18 16:00 97.9 93 20 113/57 (75) 99 02/07/18 12:00 98.9 60 20 121/58 (79) 99 02/07/18 12:00 60 (Lidya Gill) -: 02/08/18 0650 02/08/18 0650 Tubes & Lines: Vas-Cath (Lidya Gill) Physical Exam General Appearance: No Acute Distress, Comfortable (Lidya Gill) Throat Throat Exam: Oral Mucosa Shafter & Moist (Lidya Gill) Pulmonary Resp Exam: Breath Sounds Equal, Decreased Bases (Lidya Gill) Cardiology CV Exam: Regular (Lidya Gill) Gastrointestinal/Abdomen GI Exam: Soft, Non-Tender, Distended (Lidya Gill) Genitourinary Exam: Flank Non-Tender (Lidya Gill) Integumentary Skin Exam: Warm, Dry (Lidya Gill) Extremeties Extremities Exam: No Edema (Lidya Gill) Neurologic Neuro Exam: Alert, Awake, Oriented (Lidya Gill) Psychiatric Psych Exam: Appropriate Responses (Lidya Gill) Assessment/Plan Assessment Summary: DELLA/Acute Renal Failure, CKD Stage III Electrolyte Assessment: Hypokalemia Problem List: (1) DELLA (acute kidney injury) ICD Codes: N17.9 - Acute kidney failure, unspecified Status: Acute Plan: Acute kidney injury most likely related to prerenal azotemia with poor intake Creatinine is stable Non oliguric Vas cath placed and patient has been receiving plasmapheresis Avoid nephrotoxins Creatine is stable at 1.35 today and good UOP Follow the urine output and the BUN, creatinine. Encourage oral intake. Next plasma exchange scheduled for tomorrow. (2) Generalized weakness ICD Codes: R53.1 - Weakness Status: Acute (3) Peripheral neuropathy ICD Codes: G62.9 - Polyneuropathy, unspecified Status: Acute (4) Diabetes mellitus ICD Codes: E11.9 - Type 2 diabetes mellitus without complications Status: Chronic (5) Hypertension ICD Codes: I10 - Essential (primary) hypertension Status: Chronic Plan: Well controlled (Lidya Gill) Problem List: (1) DELLA (acute kidney injury) ICD Codes: N17.9 - Acute kidney failure, unspecified Status: Acute Plan: Acute kidney injury most likely related to prerenal azotemia with poor intake Creatinine is stable Non oliguric Vas cath placed and patient has been receiving plasmapheresis Avoid nephrotoxins Creatine is stable at 1.35 today and good UOP Follow the urine output and the BUN, creatinine. Encourage oral intake. Next plasma exchange scheduled for tomorrow. Patient seen and examined, agree with above. Creatinine is stable. (2) Generalized weakness ICD Codes: R53.1 - Weakness Status: Acute (3) Peripheral neuropathy ICD Codes: G62.9 - Polyneuropathy, unspecified Status: Acute (4) Diabetes mellitus ICD Codes: E11.9 - Type 2 diabetes mellitus without complications Status: Chronic (5) Hypertension ICD Codes: I10 - Essential (primary) hypertension Status: Chronic Plan: Well controlled (Pita Huitron MD) Problem Qualifiers (1) Peripheral neuropathy: Qualified Codes: G62.9 - Polyneuropathy, unspecified (2) Diabetes mellitus: Qualified Codes: E11.22 - Type 2 diabetes mellitus with diabetic chronic kidney disease (3) Hypertension: Qualified Codes: I10 - Essential (primary) hypertension Lidya Gill Feb 08, 2018 09:46 Pita Huitron MD Feb 08, 2018 21:57
--- NOTE | 2018-02-08 18:26 | PD.ONC.PN ---
Subjective Subjective Remarks endorses continued improvement in lower extremity strength participating in PT had plasma exchange yesterday without any issues Objective Data Date Time Temp Pulse Resp B/P (MAP) Pulse Ox O2 Delivery O2 Flow Rate FiO2 02/08/18 12:00 98.3 61 20 145/66 (92) 99 02/08/18 12:00 60 02/08/18 08:00 99.3 69 20 115/59 (77) 96 02/08/18 08:00 70 02/08/18 04:23 98.2 65 17 117/56 (76) 96 02/08/18 03:58 64 02/08/18 00:40 98.0 68 17 126/61 (82) 98 02/08/18 00:03 71 02/07/18 21:34 21 02/07/18 21:03 97.6 70 17 141/66 (91) 97 02/07/18 20:05 73 02/08/18 02/08/18 02/08/18 07:00 15:00 23:00 Intake Total 240 ml Output Total 750 ml Balance -510 ml Result Diagram: 02/08/18 0650 02/08/18 0650 Laboratory Results Laboratory Tests Test 02/08/18 06:50 White Blood Count 7.6 TH/MM3 Red Blood Count 3.01 MIL/MM3 Hemoglobin 9.3 GM/DL Hematocrit 27.0 % Mean Corpuscular Volume 89.5 FL Mean Corpuscular Hemoglobin 31.0 PG Mean Corpuscular Hemoglobin Concent 34.6 % Red Cell Distribution Width 14.4 % Platelet Count 279 TH/MM3 Mean Platelet Volume 7.7 FL Neutrophils (%) (Auto) 70.9 % Lymphocytes (%) (Auto) 26.2 % Monocytes (%) (Auto) 2.6 % Eosinophils (%) (Auto) 0.1 % Basophils (%) (Auto) 0.2 % Neutrophils # (Auto) 5.4 TH/MM3 Lymphocytes # (Auto) 2.0 TH/MM3 Monocytes # (Auto) 0.2 TH/MM3 Eosinophils # (Auto) 0.0 TH/MM3 Basophils # (Auto) 0.0 TH/MM3 CBC Comment DIFF FINAL Differential Comment Prothrombin Time 11.5 SEC Prothromb Time International Ratio 1.1 RATIO Activated Partial Thromboplast Time 26.5 SEC Fibrinogen 126 mg/dL Blood Urea Nitrogen 28 MG/DL Creatinine 1.35 MG/DL Random Glucose 275 MG/DL Calcium Level 8.5 MG/DL Sodium Level 137 MEQ/L Potassium Level 4.8 MEQ/L Chloride Level 107 MEQ/L Carbon Dioxide Level 20.7 MEQ/L Anion Gap 9 MEQ/L Estimat Glomerular Filtration Rate 48 ML/MIN Administered Medications Medications (Trade) Dose Ordered Sig/Alisha Route PRN Reason Start Time Stop Time Status Last Admin Dose Admin Amlodipine Besylate (Norvasc) 10 mg DAILY PO 02/01/18 14:30 Future Hold 02/08/18 08:31 Aspirin (Ecotrin Ec) 325 mg DAILY PO 02/01/18 14:30 Future Hold 02/01/18 15:46 Carvedilol (Coreg) 12.5 mg Q12HR PO 02/01/18 21:00 02/08/18 08:31 Ferrous Sulfate (Ferrous Sulfate) 325 mg BID PO 02/02/18 09:00 02/08/18 08:31 Gemfibrozil (Lopid) 300 mg DAILY PO 02/02/18 09:00 02/08/18 08:30 Acetaminophen/ Hydrocodone Bitart ([place] 10-325 Mg) 1 tab Q4H PRN PO PAIN SCALE 1-10 02/01/18 14:30 02/08/18 17:54 Pantoprazole Sodium (Protonix) 40 mg DAILY PO 02/02/18 09:00 02/08/18 08:30 Pravastatin Sodium (Pravachol) 10 mg DAILY PO 02/02/18 09:00 02/08/18 09:06 Sodium Chloride 1,000 ml @ 100 mls/hr Q10H IV 02/01/18 14:34 Future Hold 02/02/18 10:34 Sodium Chloride (NS Flush) 2 ml BID IV FLUSH 02/01/18 21:00 02/08/18 08:29 Acetaminophen (Tylenol) 650 mg Q4H PRN PO TEMP > 100.4 02/01/18 14:45 02/06/18 12:23 Heparin Sodium (Porcine) (Heparin Inj) 5,000 units Q12H SQ 02/01/18 16:00 Future hold 02/08/18 17:53 Senna/Docusate Sodium (Bridgette-Colace) 1 tab BID PO 02/01/18 21:00 02/08/18 08:29 Magnesium Hydroxide (Milk Of Magnesia Liq) 30 ml Q12H PRN PO Mild constipation 02/01/18 14:45 02/08/18 09:06 Insulin Aspart (NovoLOG SUPPLEMENTAL SCALE) 1 ACHS SLIDING SCALE SQ 02/01/18 21:00 02/08/18 17:00 Miscellaneous Information Patient in critical care unit? Ass... Q361D .XX 02/02/18 22:45 02/02/18 22:45 Methylprednisolone Sodium Succinate (SoluMEDROL INJ) 125 mg Q48H IV PUSH 02/03/18 11:00 02/11/18 11:01 02/07/18 17:19 Famotidine (Pepcid Inj) 20 mg Q48H IV PUSH 02/03/18 11:00 02/11/18 11:01 02/07/18 16:51 Diphenhydramine HCl (Benadryl Inj) 25 mg UNSCH PRN IV PUSH ALLERGIC REACTION 02/03/18 10:30 02/11/18 23:59 02/06/18 12:24 Anticoagulant Citrate Dextose Serene A (Acd Formula Inj) 1,000 ml Q48H OTHER 02/03/18 11:00 02/11/18 11:01 02/03/18 17:02 Calcium Gluconate 3 gm/Sodium Chloride 180 ml @ 90 mls/hr Q48H IV 02/03/18 12:00 02/11/18 13:59 02/05/18 22:22 Albumin Human 3,000 ml @ 250 mls/hr Q48H IV 02/03/18 14:00 02/12/18 01:59 02/05/18 21:04 Sodium Bicarbonate (Sodium Bicarbonate) 650 mg Q12HR PO 02/05/18 12:00 02/08/18 09:05 Gabapentin (Neurontin) 400 mg TID PO 02/05/18 18:00 02/08/18 17:53 Objective Remarks GENERAL: nad RESPIRATORY: Breath sounds equal bilaterally. No accessory muscle use. GASTROINTESTINAL: Abdomen soft, non-tender, nondistended. EXTREMITIES: No cyanosis, or edema. MUSCULOSKELETAL: Adequate muscle tone. NEUROLOGICAL: No obvious focal deficit. Awake, alert, and oriented x3. Assessment/Plan Problem List: (1) plasma exchange Status: Acute Plan: 02/06--off day today. give cryo 02/05: PEX #2 3/10: off day 02/03: PEX # 1 --replace plasma with albumin. 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 h/o diabetes, hypertension, Plan 1. GBS responsive to plasma exchange therapy - continues to have improvement in strength - plan for plasma exchange tomorrow - being co-managed with neurology 2. Low fibrinogen - transfuse cryo today - transfuse to keep fibrinogen > 150 - Check daily CBC, coags and fibrinogen Chilo Wallace MD Feb 08, 2018 18:26
[2018-02-08] MEDS ORDERED: ACETAMINOPHEN 325 MG TAB PO PRN (21:00)
[2018-02-08] MEDS ORDERED: diphenhydrAMINE HCL 25 MG CAP PO PRN (21:00)
[2018-02-09] VITALS: PULSE 70
[2018-02-09 04:00] VITALS: BP_SYST 121; BP_SYST 124; BP_DIAS 61; BP_DIAS 68; BP_DIAS 70; PULSE 58; RESP 20; TEMP 97.9; O2SAT 98
[2018-02-09] MEDS: ACETAMINOPHEN/HYDROcodone 325 MG/10 MG TAB PO PRN ×3 (06:13→10:02)
[2018-02-09] MEDS: HEPARIN SODIUM - SQ 10,000 UNITS/ML VIAL SQ SCH ×2 (06:13→16:26)
[2018-02-09 08:00] VITALS: BP 150/68; PULSE 55; PULSE 56; RESP 18; TEMP 98; O2SAT 98
[2018-02-09] MEDS: INSULIN ASPART SUPPLEMENTAL SCALE SQ SCH ×4 (08:00→22:09)
[2018-02-09 08:11] LABS: PROTHROMBIN TIME - PATIENT 10.1 SEC (9.8-11.6)
[2018-02-09 08:17] LABS: AUTOMATED NEUTROPHIL # 3.3 TH/MM3 (1.8-7.7); BASOPHIL # 0.1 TH/MM3 (0-0.2); BASOPHIL % 1.2 % (0.0-2.0); EOSINOPHIL # 0.7 TH/MM3 (0-0.4); EOSINOPHIL % 7.1 % (0.0-4.0); HEMATOCRIT 28.5 % (35.0-46.0); HEMOGLOBIN 9.6 GM/DL (11.6-15.3); LYMPH % 47.9 % (9.0-44.0); LYMPHOCYTE # 4.4 TH/MM3 (1.0-4.8); MEAN CELL VOLUME 89.9 FL (80.0-100.0); MEAN CORPUSCULAR HEMOGLOBIN 30.2 PG (27.0-34.0); MEAN CORPUSCULAR HGB CONC 33.6 % (32.0-36.0); MEAN PLATELET VOLUME 7.4 FL (7.0-11.0); MONO % 7.7 % (0.0-8.0); MONOCYTE # 0.7 TH/MM3 (0-0.9); NEUT % 36.1 % (16.0-70.0); PLATELET COUNT 295 TH/MM3 (150-450); RED BLOOD COUNT 3.17 MIL/MM3 (4.00-5.30); RED CELL DISTRIBUTION WIDTH 14.2 % (11.6-17.2); WHITE BLOOD COUNT 9.2 TH/MM3 (4.0-11.0)
[2018-02-09 08:35] LABS: BICARBONATE 27.7 MEQ/L (21.0-32.0); CALCIUM 9.9 MG/DL (8.5-10.1); CREATININE 1.33 MG/DL (0.50-1.00)
[2018-02-09] MEDS: GABAPENTIN 400 MG CAP PO SCH ×3 (08:40→17:34)
[2018-02-09] MEDS: PANTOPRAZOLE SOD 40 MG DELAYED RELEASE TAB PO SCH (08:40)
[2018-02-09] MEDS: GEMFIBROZIL 600 MG TAB PO SCH (08:40)
[2018-02-09] MEDS: FERROUS SULFATE 325 MG (65 MG ELEMENTAL IRON) TAB PO SCH ×2 (08:40→22:05)
[2018-02-09] MEDS: SODIUM BICARBONATE 650 MG TAB PO SCH ×2 (08:40→22:06)
[2018-02-09] MEDS: DOCUSATE SODIUM 50 MG/SENNA 8.6 MG TAB PO SCH ×2 (08:40→22:05)
[2018-02-09] MEDS: CARVEDILOL 12.5 MG TAB PO SCH ×2 (08:40→22:06)
[2018-02-09] MEDS: SODIUM CHLORIDE 0.9% FLUSH 10 ML FLUSH IV FLUSH SCH ×2 (08:41→22:06)
[2018-02-09] MEDS: PRAVASTATIN SOD 10 MG TAB PO SCH (08:42)
--- NOTE | 2018-02-09 09:54 | HHI.NPPN ---
Subjective Renal Failure: Acute History of Present Illness This is a 67-year-old female with past medical history diabetes mellitus, hypertension, ischemic heart disease, history of recurrent urinary tract infection, patient with history of pyelonephritis and acute kidney injury, was brought to the hospital because of generalized weakness and decreased oral intake. I was called to see the patient because of elevated BUN and creatinine. The patient has history of acute kidney injury and she as seen by me when she was here in October. At that time, her creatinine was as high as 4.6, this was in September, and then it improved and the creatinine stayed in a range of 1.1-1.2 most of the time. The patient has the last creatinine of 1.3, which was in November 2017. Now, she came with a creatinine of 1.2. The patient admits that she has not been eating very well for the last week or so.She has been feeling weak and tired. There is no nausea or vomiting. No history of diarrhea. She denies taking any nonsteroidal anti-inflammatory drug. There is no hematuria or dysuria. She did not notice any decrease in the urine output. Additional Remarks Alert and oriented. Patient is good spirits. Plasmapheresis today. (Lidya Gill) Review of Systems Respiratory Respiratory Remarks Denies SOB (Lidya Gill) Cardiovascular Cardiac Remarks Denies any CP (Lidya Gill) Gastrointestinal GI Remarks Denies any abdominal pain (Lidya Gill) Genitourinary Remarks Denies dysuria (Lidya Gill) Objective Data Data Vital Signs Date Time Temp Pulse Resp B/P (MAP) Pulse Ox O2 Delivery O2 Flow Rate FiO2 02/09/18 08:00 98.0 56 18 150/68 (95) 98 02/09/18 04:00 97.9 58 20 124/70 (88) 98 124/68 (86) 121/61 (81) 02/09/18 01:00 18 02/09/18 00:00 70 02/08/18 23:47 98.2 78 18 128/74 97 02/08/18 23:31 98.1 76 16 136/72 (93) 97 141/82 (101) 138/72 (94) 02/08/18 23:17 98.1 76 16 136/72 97 02/08/18 22:47 98.1 76 16 141/72 99 02/08/18 22:33 98.1 62 16 161/83 100 02/08/18 20:55 98.2 75 18 130/77 (94) 98 121/76 (91) 136/69 (91) 02/08/18 20:00 70 02/08/18 20:00 56 02/08/18 18:54 139/72 (94) 121/68 (85) 116/60 (78) 02/08/18 18:32 60 02/08/18 16:00 98.3 66 20 140/64 (89) 99 02/08/18 12:00 98.3 61 20 145/66 (92) 99 02/08/18 12:00 60 (Lidya Gill) -: 02/09/18 0713 02/09/18 0713 Tubes & Lines: Vas-Cath (Lidya Gill) Physical Exam General Appearance: No Acute Distress, Comfortable (Lidya Gill) Throat Throat Exam: Oral Mucosa [place] & Moist (Lidya Gill) Pulmonary Resp Exam: Breath Sounds Equal, No Distress (Lidya Gill) Cardiology CV Exam: Regular (Lidya Gill) Gastrointestinal/Abdomen GI Exam: Soft, Non-Tender (Lidya Gill) Genitourinary Exam: Flank Non-Tender (Lidya Gill) Integumentary Skin Exam: Warm, Dry (Lidya Gill) Extremeties Extremities Exam: No Edema (Lidya Gill) Neurologic Neuro Exam: Alert, Awake, Oriented (Lidya Gill) Psychiatric Psych Exam: Appropriate Responses (Lidya Gill) Assessment/Plan Assessment Summary: DELLA/Acute Renal Failure, CKD Stage III Electrolyte Assessment: Hypokalemia Problem List: (1) DELLA (acute kidney injury) ICD Codes: N17.9 - Acute kidney failure, unspecified Status: Acute Plan: Acute kidney injury most likely related to prerenal azotemia with poor intake Creatinine is stable Non oliguric Vas cath placed and patient has been receiving plasmapheresis Avoid nephrotoxins Creatine is stable and good UOP Follow the urine output and the BUN, creatinine. Encourage oral intake. Next plasma exchange scheduled for today (2) Generalized weakness ICD Codes: R53.1 - Weakness Status: Acute (3) Peripheral neuropathy ICD Codes: G62.9 - Polyneuropathy, unspecified Status: Acute (4) Diabetes mellitus ICD Codes: E11.9 - Type 2 diabetes mellitus without complications Status: Chronic (5) Hypertension ICD Codes: I10 - Essential (primary) hypertension Status: Chronic Plan: Well controlled (Lidya Gill) Problem List: (1) DELLA (acute kidney injury) ICD Codes: N17.9 - Acute kidney failure, unspecified Status: Acute Plan: Acute kidney injury most likely related to prerenal azotemia with poor intake Creatinine is stable Non oliguric Vas cath placed and patient has been receiving plasmapheresis Avoid nephrotoxins Creatine is stable and good UOP Follow the urine output and the BUN, creatinine. Encourage oral intake. Next plasma exchange scheduled for today. Patient seen and examined, agree with above. Creatinine is stable at 1.3. (2) Generalized weakness ICD Codes: R53.1 - Weakness Status: Acute (3) Peripheral neuropathy ICD Codes: G62.9 - Polyneuropathy, unspecified Status: Acute (4) Diabetes mellitus ICD Codes: E11.9 - Type 2 diabetes mellitus without complications Status: Chronic (5) Hypertension ICD Codes: I10 - Essential (primary) hypertension Status: Chronic Plan: Well controlled (Pita Huitron MD) Problem Qualifiers (1) Peripheral neuropathy: Qualified Codes: G62.9 - Polyneuropathy, unspecified (2) Diabetes mellitus: Qualified Codes: E11.22 - Type 2 diabetes mellitus with diabetic chronic kidney disease (3) Hypertension: Qualified Codes: I10 - Essential (primary) hypertension Lidya Gill Feb 09, 2018 09:54 Pita Huitron MD Feb 09, 2018 14:06
[2018-02-09 10:34] VITALS: O2SAT 99
[2018-02-09 12:00] VITALS: BP 99/55; PULSE 55; PULSE 57; RESP 18; TEMP 97.8; O2SAT 99
[2018-02-09] MEDS: FAMOTIDINE 20 MG/2 ML VIAL IV PUSH SCH (12:19)
[2018-02-09] MEDS: methylPREDNISolone SOD SUCC 125 MG/2 ML VIAL IV PUSH SCH (12:21)
--- NOTE | 2018-02-09 12:33 | HHI.FPPN ---
Subjective Remarks Patient is much improved today. States she doesn't need PT anymore. Is able to walk around the room and on her own with walker. Feels much stronger. Dizziness and lower extremity pain minimal. Doing well. Day #4 of plasmapharesis today. (Miriam Yu MD R1) Objective Vitals Vital Signs Date Time Temp Pulse Resp B/P (MAP) Pulse Ox O2 Delivery O2 Flow Rate FiO2 02/09/18 10:34 99 02/09/18 08:00 98.0 56 18 150/68 (95) 98 02/09/18 04:00 97.9 58 20 124/70 (88) 98 124/68 (86) 121/61 (81) 02/09/18 01:00 18 02/09/18 00:00 70 02/08/18 23:47 98.2 78 18 128/74 97 02/08/18 23:31 98.1 76 16 136/72 (93) 97 141/82 (101) 138/72 (94) 02/08/18 23:17 98.1 76 16 136/72 97 02/08/18 22:47 98.1 76 16 141/72 99 02/08/18 22:33 98.1 62 16 161/83 100 02/08/18 20:55 98.2 75 18 130/77 (94) 98 121/76 (91) 136/69 (91) 02/08/18 20:00 70 02/08/18 20:00 56 02/08/18 18:54 139/72 (94) 121/68 (85) 116/60 (78) 02/08/18 18:32 60 02/08/18 16:00 98.3 66 20 140/64 (89) 99 I/O 02/08/18 02/08/18 02/08/18 02/09/18 02/09/18 02/09/18 07:00 15:00 23:00 07:00 15:00 23:00 Intake Total 240 ml 720 ml 228 ml Output Total 750 ml Balance -510 ml 720 ml 228 ml Intake Oral 240 ml 720 ml Cryoprecipitate 228 ml Output Urine Total 750 ml # Voids 3 2 # Bowel Movements 0 (Miriam Yu MD R1) Result Diagram: 02/09/1871202/09/18712 Objective Remarks GENERAL: This is a pleasant, sweet middle-aged female, soft-spoken, sitting up in chair and eating breakfast. SKIN: Cool and dry. EYES: Extraocular motions intact. No scleral icterus. No injection or drainage. NECK: Trachea midline. No JVD. CARDIOVASCULAR: Regular rate and rhythm without murmurs, gallops, or rubs. RESPIRATORY: Clear to auscultation. Breath sounds equal bilaterally. GASTROINTESTINAL: Abdomen soft, non-tender, nondistended. NEUROLOGICAL: Awake and alert. No focal deficits. 5/5 strength bilaterally in the lower extremities. 5/5 curator herbarium strength in UEs. Normal speech. Procedures Vas-cath placement 02/03/18 Plasmapheresis 02/03/18 (Miriam Yu MD R1) Date of Insertion: Feb 03, 2018 (Miriam Yu MD R1) A/P Assessment and Plan 67-year-old female with history of poorly controlled diabetes and gastroparesis presents with DELLA and generalized weakness, unable to get up out of chair. Heme/ Onc, neurology and nephrology consulted. 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 Discharge Planning Plasmapheresis by Heme/Onc every other day x 5 (start 02/03/18 - tentative completion 02/11/18) (Miriam Yu MD R1) Attending Attestation Patient seen and examined. Case reviewed and discussed with the resident team. Agree with plan of care as discussed with me and documented in the resident note. better and better with each treatment (Desirae Clark MD) Problem List: (1) Dizziness ICD Codes: R42 - Dizziness and giddiness Status: Resolved Plan: Has been constant for the last 2-3 months. Patient suspects that has to do with medications because symptom begins after taking medication and resolves before she has to take her next doses in the evening. Feels like the room is spinning. No falls from symptom. 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 Reflexes were present which confused the issue Physical therapy, Occupational therapy, Neurology consulted. Plasmapheresis initiated per Neuro recs, done by Janel Onc her original low forced vital capacity of 65% of normal, became normal with plasmapheresis Case management consulted, patient may need placement at discharge. will see how much improvement she gets over the next week Improved Day #4 of treatment today Heme-Onc consulted and following recs: -5 treatments of plasmapheresis; vas-cath and start plasmapheresis 02/03/17 - tentative completion 02/11/18 -Daily CBC, BMP, Coags -XANDER and VDRL/RPR labs all normal so far EMG study as outpt she has some labile BPs which can also result from GB. So far they have not been extremely variable but will watch for that. would not overtreat the higher pressers as if she drops the GB can push the pressures or pulse lower Tylenol for pain (3) plasma exchange Status: Acute Plan: As above -- Heme/Onc has ordered 5 plasmapheresis treatments spaced every other day; vas-cath has been placed as of 02/03/18 The last treatment will be the if everything goes by expectations (4) DELLA (acute kidney injury) ICD Codes: N17.9 - Acute kidney failure, unspecified Status: Resolved Plan: Acute on chronic kidney injury. BUN 60 / Cr 2.25 on admit--> 28/1.35 trending down Urine output .875 L Baseline Mean appears to be 1.2 a stone previous documentation DELLA from prerenal azotemia from poor intake, improving with maintenance IVF Nephrology consulted, appreciate recs Avoid nephrotoxic agents (5) Peripheral neuropathy ICD Codes: G62.9 - Polyneuropathy, unspecified Status: Acute Plan: Patient has had benefit from gabapentin in past -- complains of burning and numbness in feet this morning -Gabapentin 600mg TID (per Dr Joiner, neurology) - suspect this is from her Guillain [place] as she barely had any pain prior to losing the ability to walk. when that happened the pain became unbearable. Now with each plasmapheresis, her pain lessens - add Tylenol PRN for pain (6) Hypertension ICD Codes: I10 - Essential (primary) hypertension Status: Chronic Plan: Controlled Continue home carvedilol, amlodipine Hydralazine 10mg PO PRN q6h SBP>180 OR DBP>100 (7) Diabetes mellitus ICD Codes: E11.9 - Type 2 diabetes mellitus without complications Status: Chronic Plan: Diabetes with kidney injury. Noncompliant as an outpatient Sliding scale insulin while inpatient Bedside glucose afternoon 211-233. Fasting glucose of 275 this morning. Start Levemir 7 units hs (8) Anemia ICD Codes: D64.9 - Anemia, unspecified Status: Chronic Plan: Hgb 9.2 today -Continue FeSO4 325mg PO BID (9) FEN Status: Acute Plan: Fluids: None Electrodes: Monitor and replace as needed Nutrition: Diabetic diet Prophylaxis: Heparin, SCDs Bowel regimen - as needed (Miriam Yu MD R1) Problem Qualifiers (1) Peripheral neuropathy: Qualified Codes: G62.9 - Polyneuropathy, unspecified (2) Hypertension: Qualified Codes: I10 - Essential (primary) hypertension (3) Diabetes mellitus: Qualified Codes: E11.22 - Type 2 diabetes mellitus with diabetic chronic kidney disease (4) Anemia: Qualified Codes: D50.9 - Iron deficiency anemia, unspecified Miriam Yu MD R1 Feb 09, 2018 12:33 Desirae Clark MD Feb 13, 2018 20:57
[2018-02-09] MEDS: diphenhydrAMINE HCL 50 MG/ML VIAL IV PUSH PRN (12:41)
[2018-02-09] MEDS: ALBUMIN 5% IV SCH ×2 (13:25→14:50)
--- NOTE | 2018-02-09 15:21 | HHI.FF ---
Face to Face Verification Diagnosis: (1) Guillain Ring syndrome Physical Therapy Order: Evaluate and Treat, Improve ambulation, Strength and gait training Home Health Aide Order: To Assist In: Bathing and personal care I have seen patient Billie Cohen on 02/09/18. My clinical findings support the need for the requested home health care services because: Deconditioned w/ increased weakness Limited ability to care for self High risk of falls I certify that my clinical findings support that this patient is homebound because: Unsteady gait/balance Miriam Yu MD R1 Feb 09, 2018 15:21
[2018-02-09] MEDS: ACETAMINOPHEN 325 MG TAB PO PRN ×2 (16:21→22:05)
[2018-02-09 20:00] VITALS: BP 132/62; PULSE 69; RESP 20; TEMP 98; O2SAT 98
--- NOTE | 2018-02-09 21:41 | PD.ONC.PN ---
Subjective Subjective Remarks see earlier in the day feels tired plasma exchange today says LE weakness has significantly improved Objective Data Date Time Temp Pulse Resp B/P (MAP) Pulse Ox O2 Delivery O2 Flow Rate FiO2 02/09/18 12:00 97.8 57 18 99/55 (70) 99 02/09/18 12:00 55 02/09/18 10:34 99 02/09/18 08:00 55 02/09/18 08:00 98.0 56 18 150/68 (95) 98 02/09/18 04:00 97.9 58 20 124/70 (88) 98 124/68 (86) 121/61 (81) 02/09/18 01:00 18 02/09/18 00:00 70 02/08/18 23:47 98.2 78 18 128/74 97 02/08/18 23:31 98.1 76 16 136/72 (93) 97 141/82 (101) 138/72 (94) 02/08/18 23:17 98.1 76 16 136/72 97 02/08/18 22:47 98.1 76 16 141/72 99 02/08/18 22:33 98.1 62 16 161/83 100 02/09/18 02/09/18 02/09/18 06:59 14:59 22:59 Intake Total 228 ml 720 ml Balance 228 ml 720 ml Result Diagram: 02/09/1813 02/09/18712 Laboratory Results Laboratory Tests Test 02/09/18 07:13 White Blood Count 9.2 TH/MM3 Red Blood Count 3.17 MIL/MM3 Hemoglobin 9.6 GM/DL Hematocrit 28.5 % Mean Corpuscular Volume 89.9 FL Mean Corpuscular Hemoglobin 30.2 PG Mean Corpuscular Hemoglobin Concent 33.6 % Red Cell Distribution Width 14.2 % Platelet Count 295 TH/MM3 Mean Platelet Volume 7.4 FL Neutrophils (%) (Auto) 36.1 % Lymphocytes (%) (Auto) 47.9 % Monocytes (%) (Auto) 7.7 % Eosinophils (%) (Auto) 7.1 % Basophils (%) (Auto) 1.2 % Neutrophils # (Auto) 3.3 TH/MM3 Lymphocytes # (Auto) 4.4 TH/MM3 Monocytes # (Auto) 0.7 TH/MM3 Eosinophils # (Auto) 0.7 TH/MM3 Basophils # (Auto) 0.1 TH/MM3 CBC Comment DIFF FINAL Differential Comment Prothrombin Time 10.1 SEC Prothromb Time International Ratio 1.0 RATIO Activated Partial Thromboplast Time 32.0 SEC Fibrinogen 252 mg/dL Blood Urea Nitrogen 32 MG/DL Creatinine 1.33 MG/DL Random Glucose 167 MG/DL Calcium Level 9.9 MG/DL Sodium Level 137 MEQ/L Potassium Level 4.6 MEQ/L Chloride Level 102 MEQ/L Carbon Dioxide Level 27.7 MEQ/L Anion Gap 7 MEQ/L Estimat Glomerular Filtration Rate 48 ML/MIN Administered Medications Medications (Trade) Dose Ordered Sig/Alisha Route PRN Reason Start Time Stop Time Status Last Admin Dose Admin Amlodipine Besylate (Norvasc) 10 mg DAILY PO 02/01/18 14:30 Future Hold 02/08/18 08:31 Aspirin (Ecotrin Ec) 325 mg DAILY PO 02/01/18 14:30 Future Hold 02/01/18 15:46 Carvedilol (Coreg) 12.5 mg Q12HR PO 02/01/18 21:00 02/09/18 08:40 Ferrous Sulfate (Ferrous Sulfate) 325 mg BID PO 02/02/18 09:00 02/09/18 08:40 Gemfibrozil (Lopid) 300 mg DAILY PO 02/02/18 09:00 02/09/18 08:40 Pantoprazole Sodium (Protonix) 40 mg DAILY PO 02/02/18 09:00 02/09/18 08:40 Pravastatin Sodium (Pravachol) 10 mg DAILY PO 02/02/18 09:00 02/09/18 08:42 Sodium Chloride 1,000 ml @ 100 mls/hr Q10H IV 02/01/18 14:34 Future Hold 02/02/18 10:34 Sodium Chloride (NS Flush) 2 ml BID IV FLUSH 02/01/18 21:00 02/09/18 08:41 Acetaminophen (Tylenol) 650 mg Q4H PRN PO TEMP > 100.4 02/01/18 14:45 02/09/18 16:21 Heparin Sodium (Porcine) (Heparin Inj) 5,000 units Q12H SQ 02/01/18 16:00 Future hold 02/09/18 16:26 Senna/Docusate Sodium (Bridgette-Colace) 1 tab BID PO 02/01/18 21:00 02/09/18 08:40 Magnesium Hydroxide (Milk Of Nicolasa Balbuena) 30 ml Q12H PRN PO Mild constipation 02/01/18 14:45 02/08/18 09:06 Insulin Aspart (NovoLOG SUPPLEMENTAL SCALE) 1 ACHS SLIDING SCALE SQ 02/01/18 21:00 02/09/18 17:00 Miscellaneous Information Patient in critical care unit? Ass... Q361D .XX 02/02/18 22:45 02/02/18 22:45 Methylprednisolone Sodium Succinate (SoluMEDROL INJ) 125 mg Q48H IV PUSH 02/03/18 11:00 02/11/18 11:01 02/09/18 12:21 Famotidine (Pepcid Inj) 20 mg Q48H IV PUSH 02/03/18 11:00 02/11/18 11:01 02/09/18 12:19 Diphenhydramine HCl (Benadryl Inj) 25 mg UNSCH PRN IV PUSH ALLERGIC REACTION 02/03/18 10:30 02/11/18 23:59 02/09/18 12:41 Anticoagulant Citrate Dextose Serene A (Acd Formula Inj) 1,000 ml Q48H OTHER 02/03/18 11:00 02/11/18 11:01 02/05/18 13:25 Heparin Sodium (Porcine) (Heparin Inj) 1,000 units UNSCH PRN IV FLUSH FLUSH AFTER USING IV ACCESS 02/03/18 10:30 02/11/18 23:59 02/09/18 14:49 Calcium Gluconate 3 gm/Sodium Chloride 180 ml @ 90 mls/hr Q48H IV 02/03/18 12:00 02/11/18 13:59 02/07/18 13:25 Albumin Human 3,000 ml @ 250 mls/hr Q48H IV 02/03/18 14:00 02/12/18 01:59 02/09/18 13:25 Sodium Bicarbonate (Sodium Bicarbonate) 650 mg Q12HR PO 02/05/18 12:00 02/09/18 08:40 Gabapentin (Neurontin) 400 mg TID PO 02/05/18 18:00 02/09/18 17:34 Objective Remarks GENERAL: nad LYMPHATIC: No adenopathy. CARDIOVASCULAR: Regular rate and rhythm without murmurs. RESPIRATORY: Breath sounds equal bilaterally. No accessory muscle use. GASTROINTESTINAL: Abdomen soft, non-tender, nondistended. EXTREMITIES: No cyanosis, or edema. Assessment/Plan Problem List: (1) plasma exchange Status: Acute Plan: 02/06--off day today. give cryo 02/05: PEX #2 02/04: off day 02/03: PEX # 1 --replace plasma with albumin. 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 h/o diabetes, hypertension, Plan 1. GBS responsive to plasma exchange therapy - continues to have improvement in strength - plan for plasma exchange today - being co-managed with neurology 2. Low fibrinogen - > 200 today - transfuse to keep fibrinogen > 150 - Check daily CBC, coags and fibrinogen Chilo Wallace MD Feb 09, 2018 21:41
[2018-02-10] VITALS (9 sets, daily range): BP systolic 110–166; BP diastolic 55–70; PULSE 60–71; RESP 16–20; TEMP 97.3–98.6; O2SAT 98–100
[2018-02-10] MEDS ORDERED: ACETAMINOPHEN/HYDROcodone 325 MG/5 MG TAB PO ONE ×2 (00:45→06:15)
[2018-02-10] MEDS: ACETAMINOPHEN 325 MG TAB PO PRN ×2 (04:24→09:15)
[2018-02-10] MEDS: HEPARIN SODIUM - SQ 10,000 UNITS/ML VIAL SQ SCH ×2 (04:24→16:37)
[2018-02-10] MEDS: INSULIN ASPART SUPPLEMENTAL SCALE SQ SCH ×4 (08:00→20:43)
[2018-02-10 08:45] LABS: AUTOMATED NEUTROPHIL # 7.1 TH/MM3 (1.8-7.7); BASOPHIL # 0.1 TH/MM3 (0-0.2); BASOPHIL % 0.6 % (0.0-2.0); EOSINOPHIL % 0.1 % (0.0-4.0); HEMATOCRIT 30.1 % (35.0-46.0); LYMPH % 31.9 % (9.0-44.0); LYMPHOCYTE # 3.7 TH/MM3 (1.0-4.8); MEAN CELL VOLUME 89.5 FL (80.0-100.0); MEAN CORPUSCULAR HEMOGLOBIN 29.7 PG (27.0-34.0); MEAN CORPUSCULAR HGB CONC 33.2 % (32.0-36.0); MEAN PLATELET VOLUME 7.6 FL (7.0-11.0); MONO % 5.7 % (0.0-8.0); MONOCYTE # 0.7 TH/MM3 (0-0.9); NEUT % 61.7 % (16.0-70.0); PLATELET COUNT 298 TH/MM3 (150-450); RED BLOOD COUNT 3.37 MIL/MM3 (4.00-5.30); RED CELL DISTRIBUTION WIDTH 14.2 % (11.6-17.2); WHITE BLOOD COUNT 11.6 TH/MM3 (4.0-11.0)
[2018-02-10 08:58] LABS: INTERNATIONAL NORMALIZED RATIO 1.1 RATIO
[2018-02-10 09:06] LABS: BICARBONATE 21.8 MEQ/L (21.0-32.0); CREATININE 1.33 MG/DL (0.50-1.00)
[2018-02-10] MEDS: CARVEDILOL 12.5 MG TAB PO SCH ×2 (09:13→20:43)
[2018-02-10] MEDS: PANTOPRAZOLE SOD 40 MG DELAYED RELEASE TAB PO SCH (09:13)
[2018-02-10] MEDS: GABAPENTIN 400 MG CAP PO SCH ×3 (09:13→16:34)
[2018-02-10] MEDS: GEMFIBROZIL 600 MG TAB PO SCH (09:13)
[2018-02-10] MEDS: FERROUS SULFATE 325 MG (65 MG ELEMENTAL IRON) TAB PO SCH ×2 (09:13→20:43)
[2018-02-10] MEDS: SODIUM BICARBONATE 650 MG TAB PO SCH ×2 (09:13→20:43)
[2018-02-10] MEDS: DOCUSATE SODIUM 50 MG/SENNA 8.6 MG TAB PO SCH ×2 (09:13→20:43)
[2018-02-10] MEDS: PRAVASTATIN SOD 10 MG TAB PO SCH (09:13)
[2018-02-10] MEDS: SODIUM CHLORIDE 0.9% FLUSH 10 ML FLUSH IV FLUSH SCH ×2 (09:16→20:43)
--- NOTE | 2018-02-10 11:27 | HHI.FPPN ---
Subjective Remarks Ms Cohen had more pain without norco. She required some last night and it will be restarted today. Otherwise she feels great and is walking around everywhere. She has done so well with her activity that she graduated from PT. Her pain is still in her feet but a bit less everyday. Objective Vitals Vital Signs Date Time Temp Pulse Resp B/P (MAP) Pulse Ox O2 Delivery O2 Flow Rate FiO2 02/10/18 08:08 98.6 71 18 146/66 (92) 99 02/10/18 05:24 18 02/10/18 04:00 97.4 62 20 166/70 (102) 99 02/10/18 02:05 16 02/10/18 00:00 98.0 65 20 147/66 (93) 98 02/09/18 20:00 98.0 69 20 132/62 (85) 98 02/09/18 12:00 97.8 57 18 99/55 (70) 99 02/09/18 12:00 55 I/O 02/09/18 02/09/18 02/09/18 02/10/18 02/10/18 02/10/18 07:00 15:00 23:00 07:00 15:00 23:00 Intake Total 228 ml 720 ml Output Total 2 ml Balance 228 ml 720 ml -2 ml Intake Oral 720 ml Cryoprecipitate 228 ml Output Urine Total 2 ml # Voids 2 2 # Bowel Movements 1 Result Diagram: 02/10/18 0757 02/10/18 0757 Objective Remarks GENERAL: This is a pleasant, sweet middle-aged female, soft-spoken, walking around room with her walker and 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 EYES: Extraocular motions intact. No scleral icterus. No injection or drainage. NECK: Trachea midline. No JVD. CARDIOVASCULAR: Regular rate and rhythm without murmurs, gallops, or rubs. RESPIRATORY: Clear to auscultation. Breath sounds equal bilaterally. GASTROINTESTINAL: Abdomen soft, non-tender, nondistended. NEUROLOGICAL: Awake and alert. No focal deficits. 5/5 strength bilaterally in the lower extremities. 5/5 direct marketing analyst strength in UEs. Normal speech. Procedures Vas-cath placement 02/03/18 Plasmapheresis 02/03/18 Urinary Catheter: No Vascular Central Line Catheter: Yes Date of Insertion: Feb 03, 2018 Line: Central Venous Catheter Side: Right Reason for Continuation plasmapheresis A/P Assessment and Plan 67-year-old female with history of poorly controlled diabetes and gastroparesis presents with DELLA and generalized weakness, unable to get up out of chair. Heme/ Onc, neurology and nephrology consulted. 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 Reflexes were present which confused the issue Physical therapy, Occupational therapy, Neurology consulted. Plasmapheresis initiated per Neuro recs, done by Heme Onc her original low forced vital capacity of 65% of normal, became normal with plasmapheresis Case management consulted, patient may need placement at discharge. will see how much improvement she gets over the next week Improved Day #4 of treatment today Heme-Onc consulted and following recs: -5 treatments of plasmapheresis; vas-cath and start plasmapheresis 02/03/17 - tentative completion 02/11/18 -Daily CBC, BMP, Coags -XANDER and VDRL/RPR labs all normal so far EMG study as outpt she has some labile BPs which can also result from GB. So far they have not been extremely variable but will watch for that. would not overtreat the higher pressers as if she drops the GB can push the pressures or pulse lower Tylenol for pain (2) plasma exchange Status: Acute Plan: As above -- Heme/Onc has ordered 5 plasmapheresis treatments spaced every other day; vas-cath has been placed as of 02/03/18 The last treatment will be the if everything goes by expectations. will be able to go home when Heme signs off as she has needed treatment after her last few plasmapheresis. (3) DELLA (acute kidney injury) ICD Codes: N17.9 - Acute kidney failure, unspecified Status: Acute Plan: Acute on chronic kidney injury. BUN 60 / Cr 2.25 on admit--> 28/1.35 trending down Urine output .875 L Baseline Mean appears to be 1.2 per previous documentation DELLA from prerenal azotemia from poor intake, improving with maintenance IVF Nephrology consulted, appreciate recs Avoid nephrotoxic agents (4) Peripheral neuropathy ICD Codes: G62.9 - Polyneuropathy, unspecified Status: Acute Plan: Patient has had benefit from gabapentin in past -- complains of burning and numbness in feet this morning -Gabapentin 600mg TID (per Dr Joiner, neurology) - suspect this is from her Guillain [place] as she barely had any pain prior to losing the ability to walk. when that happened the pain became unbearable. Now with each plasmapheresis, her pain lessens - add Tylenol PRN for pain she still needs norco so added that back (5) Hypertension ICD Codes: I10 - Essential (primary) hypertension Status: Chronic Plan: Controlled Continue home carvedilol, amlodipine Hydralazine 10mg PO PRN q6h SBP>180 OR DBP>100 (6) Diabetes mellitus ICD Codes: E11.9 - Type 2 diabetes mellitus without complications Status: Chronic Plan: Diabetes with kidney injury. Noncompliant as an outpatient Sliding scale insulin while inpatient Bedside glucose afternoon 211-233. Fasting glucose of 275 this morning. Start Levemir 5 units BID she has been receiving solumedrol intermittently. this is making her glucoses go much higher when she gets this. some days she has better control while other days she will have glucoses up to the 300s. (7) Anemia ICD Codes: D64.9 - Anemia, unspecified Status: Chronic Plan: Hgb 9.2 today -Continue FeSO4 325mg PO BID (8) Dizziness ICD Codes: R42 - Dizziness and giddiness Plan: Has been constant for the last 2-3 months. Patient suspects that has to do with medications because symptom begins after taking medication and resolves before she has to take her next doses in the evening. Feels like the room is spinning. No falls from symptom. Improved Discontinued amlodipine Orthostatics wnl Con't to monitor as patient is improving (9) FEN Status: Acute Plan: Fluids: None Electrodes: Monitor and replace as needed Nutrition: Diabetic diet Prophylaxis: Heparin, SCDs Bowel regimen - as needed Problem Qualifiers (1) Peripheral neuropathy: Qualified Codes: G62.9 - Polyneuropathy, unspecified (2) Hypertension: Qualified Codes: I10 - Essential (primary) hypertension (3) Diabetes mellitus: Qualified Codes: E11.22 - Type 2 diabetes mellitus with diabetic chronic kidney disease (4) Anemia: Qualified Codes: D50.9 - Iron deficiency anemia, unspecified Desirae Clakr MD Feb 10, 2018 11:27
[2018-02-10] MEDS: ACETAMINOPHEN/HYDROcodone 325 MG/10 MG TAB PO PRN ×3 (12:40→20:43)
--- NOTE | 2018-02-10 16:34 | HHI.NPPN ---
Subjective Renal Failure: Acute History of Present Illness This is a 67-year-old female with past medical history diabetes mellitus, hypertension, ischemic heart disease, history of recurrent urinary tract infection, patient with history of pyelonephritis and acute kidney injury, was brought to the hospital because of generalized weakness and decreased oral intake. I was called to see the patient because of elevated BUN and creatinine. The patient has history of acute kidney injury and she as seen by me when she was here in October. At that time, her creatinine was as high as 4.6, this was in September, and then it improved and the creatinine stayed in a range of 1.1-1.2 most of the time. The patient has the last creatinine of 1.3, which was in November 2017. Now, she came with a creatinine of 1.2. The patient admits that she has not been eating very well for the last week or so.She has been feeling weak and tired. There is no nausea or vomiting. No history of diarrhea. She denies taking any nonsteroidal anti-inflammatory drug. There is no hematuria or dysuria. She did not notice any decrease in the urine output. Additional Remarks Patient is alert, no SOB, eating well, not in distress. Review of Systems Respiratory Respiratory Remarks Denies SOB Cardiovascular Cardiac Remarks Denies any CP Gastrointestinal GI Remarks Denies any abdominal pain Genitourinary Remarks Denies dysuria Objective Data Data Vital Signs Date Time Temp Pulse Resp B/P (MAP) Pulse Ox O2 Delivery O2 Flow Rate FiO2 02/10/18 12:09 97.9 67 18 133/65 (87) 100 02/10/18 08:08 98.6 71 18 146/66 (92) 99 02/10/18 05:24 18 02/10/18 04:00 97.4 62 20 166/70 (102) 99 02/10/18 02:05 16 02/10/18 00:00 98.0 65 20 147/66 (93) 98 02/09/18 20:00 98.0 69 20 132/62 (85) 98 -: 02/10/18 0757 02/10/18 0757 Tubes & Lines: Vas-Cath Physical Exam General Appearance: No Acute Distress, Comfortable Throat Throat Exam: Oral Mucosa [place] & Moist Pulmonary Resp Exam: Breath Sounds Equal, No Distress Cardiology CV Exam: Regular Gastrointestinal/Abdomen GI Exam: Soft, Non-Tender Genitourinary Exam: Flank Non-Tender Integumentary Skin Exam: Warm, Dry Extremeties Extremities Exam: No Edema Neurologic Neuro Exam: Alert, Awake, Oriented Psychiatric Psych Exam: Appropriate Responses Assessment/Plan Assessment Summary: DELLA/Acute Renal Failure, CKD Stage III Electrolyte Assessment: Hypokalemia Problem List: (1) DELLA (acute kidney injury) ICD Codes: N17.9 - Acute kidney failure, unspecified Status: Acute Plan: Acute kidney injury most likely related to prerenal azotemia with poor intake Creatinine is stable Non oliguric Vas cath placed and patient has been receiving plasmapheresis Avoid nephrotoxins Creatine is stable and good UOP Follow the urine output and the BUN, creatinine. Encourage oral intake. Next plasma exchange scheduled for tomorrow. Creatinine is stable at 1.3. (2) Generalized weakness ICD Codes: R53.1 - Weakness Status: Acute (3) Peripheral neuropathy ICD Codes: G62.9 - Polyneuropathy, unspecified Status: Acute (4) Diabetes mellitus ICD Codes: E11.9 - Type 2 diabetes mellitus without complications Status: Chronic (5) Hypertension ICD Codes: I10 - Essential (primary) hypertension Status: Chronic Plan: Well controlled Problem Qualifiers (1) Peripheral neuropathy: Qualified Codes: G62.9 - Polyneuropathy, unspecified (2) Diabetes mellitus: Qualified Codes: E11.22 - Type 2 diabetes mellitus with diabetic chronic kidney disease (3) Hypertension: Qualified Codes: I10 - Essential (primary) hypertension Pita Huitron MD Feb 10, 2018 16:33
[2018-02-10] MEDS: INSULIN DETEMIR 100 UNITS/ML VIAL SQ SCH (20:43)
[2018-02-10] MEDS ORDERED: ACETAMINOPHEN 325 MG TAB PO PRN (23:45)
[2018-02-10] MEDS ORDERED: diphenhydrAMINE HCL 25 MG CAP PO PRN (23:45)
[2018-02-11] VITALS (7 sets, daily range): BP systolic 98–173; BP diastolic 51–74; PULSE 58–92; RESP 16–20; TEMP 97.5–98.1; O2SAT 97–100
[2018-02-11] MEDS: ACETAMINOPHEN/HYDROcodone 325 MG/10 MG TAB PO PRN ×4 (02:15→16:58)
[2018-02-11] MEDS: HEPARIN SODIUM - SQ 10,000 UNITS/ML VIAL SQ SCH ×2 (04:00→16:00)
[2018-02-11] MEDS: INSULIN ASPART SUPPLEMENTAL SCALE SQ SCH ×3 (08:00→17:00)
[2018-02-11] MEDS: FERROUS SULFATE 325 MG (65 MG ELEMENTAL IRON) TAB PO SCH (08:35)
[2018-02-11] MEDS: GABAPENTIN 400 MG CAP PO SCH ×3 (08:35→17:00)
[2018-02-11] MEDS: CARVEDILOL 12.5 MG TAB PO SCH (08:35)
[2018-02-11] MEDS: GEMFIBROZIL 600 MG TAB PO SCH (08:36)
[2018-02-11] MEDS: PRAVASTATIN SOD 10 MG TAB PO SCH (08:36)
[2018-02-11] MEDS: SODIUM BICARBONATE 650 MG TAB PO SCH (08:36)
[2018-02-11] MEDS: PANTOPRAZOLE SOD 40 MG DELAYED RELEASE TAB PO SCH (08:36)
[2018-02-11] MEDS: DOCUSATE SODIUM 50 MG/SENNA 8.6 MG TAB PO SCH (08:36)
[2018-02-11] MEDS: SODIUM CHLORIDE 0.9% FLUSH 10 ML FLUSH IV FLUSH SCH (08:37)
[2018-02-11] MEDS: INSULIN DETEMIR 100 UNITS/ML VIAL SQ SCH (09:00)
[2018-02-11 09:08] LABS: AUTOMATED NEUTROPHIL # 2.4 TH/MM3 (1.8-7.7); BASOPHIL # 0.1 TH/MM3 (0-0.2); BASOPHIL % 0.9 % (0.0-2.0); EOSINOPHIL # 0.5 TH/MM3 (0-0.4); EOSINOPHIL % 5.7 % (0.0-4.0); HEMOGLOBIN 9.2 GM/DL (11.6-15.3); LYMPH % 56.4 % (9.0-44.0); LYMPHOCYTE # 4.6 TH/MM3 (1.0-4.8); MEAN CELL VOLUME 89.7 FL (80.0-100.0); MEAN CORPUSCULAR HEMOGLOBIN 30.6 PG (27.0-34.0); MEAN CORPUSCULAR HGB CONC 34.2 % (32.0-36.0); MEAN PLATELET VOLUME 7.1 FL (7.0-11.0); MONO % 7.9 % (0.0-8.0); MONOCYTE # 0.6 TH/MM3 (0-0.9); NEUT % 29.1 % (16.0-70.0); PLATELET COUNT 295 TH/MM3 (150-450); RED BLOOD COUNT 3.02 MIL/MM3 (4.00-5.30); RED CELL DISTRIBUTION WIDTH 14.1 % (11.6-17.2); WHITE BLOOD COUNT 8.2 TH/MM3 (4.0-11.0)
[2018-02-11 09:21] LABS: PROTHROMBIN TIME - PATIENT 9.7 SEC (9.8-11.6)
--- NOTE | 2018-02-11 10:17 | PD.ONC.PN ---
Subjective Subjective Remarks Afebrile overnight. Patient resting in bed. she feels much stronger. she is able to ambulate now. burning sensation in legs significantly improved. Objective Data Date Time Temp Pulse Resp B/P (MAP) Pulse Ox O2 Delivery O2 Flow Rate FiO2 02/11/18 08:00 98.0 58 20 148/68 (94) 98 02/11/18 04:00 97.5 64 17 139/65 (89) 99 02/11/18 03:15 16 02/11/18 01:15 98.1 92 16 128/64 100 02/11/18 00:30 97.6 66 16 132/70 99 02/11/18 00:00 97.7 60 16 133/68 99 02/11/18 00:00 97.7 60 16 133/60 (84) 99 02/10/18 23:45 98.1 62 16 132/66 100 02/10/18 23:30 97.3 65 16 132/63 100 02/10/18 20:00 97.9 60 16 110/55 (73) 99 02/10/18 17:34 99 21 02/10/18 16:00 98.4 64 20 140/63 (88) 99 02/10/18 12:09 97.9 67 18 133/65 (87) 100 02/11/18 02/11/18 02/11/18 07:00 15:00 23:00 Intake Total 2103 ml Balance 2103 ml Result Diagram: 02/11/18 0837 02/10/18 0757 Laboratory Results Laboratory Tests Test 02/11/18 08:37 White Blood Count 8.2 TH/MM3 Red Blood Count 3.02 MIL/MM3 Hemoglobin 9.2 GM/DL Hematocrit 27.0 % Mean Corpuscular Volume 89.7 FL Mean Corpuscular Hemoglobin 30.6 PG Mean Corpuscular Hemoglobin Concent 34.2 % Red Cell Distribution Width 14.1 % Platelet Count 295 TH/MM3 Mean Platelet Volume 7.1 FL Neutrophils (%) (Auto) 29.1 % Lymphocytes (%) (Auto) 56.4 % Monocytes (%) (Auto) 7.9 % Eosinophils (%) (Auto) 5.7 % Basophils (%) (Auto) 0.9 % Neutrophils # (Auto) 2.4 TH/MM3 Lymphocytes # (Auto) 4.6 TH/MM3 Monocytes # (Auto) 0.6 TH/MM3 Eosinophils # (Auto) 0.5 TH/MM3 Basophils # (Auto) 0.1 TH/MM3 CBC Comment AUTO DIFF Differential Comment AUTO DIFF CONFIRMED Platelet Estimate NORMAL Platelet Morphology Comment NORMAL Red Cell Morphology Comment NORMAL Prothrombin Time 9.7 SEC Prothromb Time International Ratio 1.0 RATIO Activated Partial Thromboplast Time 25.4 SEC Fibrinogen 274 mg/dL Administered Medications Medications (Trade) Dose Ordered Sig/Alisha Route PRN Reason Start Time Stop Time Status Last Admin Dose Admin Amlodipine Besylate (Norvasc) 10 mg DAILY PO 02/01/18 14:30 Future Hold 02/08/18 08:31 Aspirin (Ecotrin Ec) 325 mg DAILY PO 02/01/18 14:30 Future Hold 02/01/18 15:46 Carvedilol (Coreg) 12.5 mg Q12HR PO 02/01/18 21:00 02/11/18 08:35 Ferrous Sulfate (Ferrous Sulfate) 325 mg BID PO 02/02/18 09:00 02/11/18 08:35 Gemfibrozil (Lopid) 300 mg DAILY PO 02/02/18 09:00 02/11/18 08:36 Pantoprazole Sodium (Protonix) 40 mg DAILY PO 02/02/18 09:00 02/11/18 08:36 Pravastatin Sodium (Pravachol) 10 mg DAILY PO 02/02/18 09:00 02/11/18 08:36 Sodium Chloride 1,000 ml @ 100 mls/hr Q10H IV 02/01/18 14:34 Future Hold 02/02/18 10:34 Sodium Chloride (NS Flush) 2 ml BID IV FLUSH 02/01/18 21:00 02/11/18 08:37 Acetaminophen (Tylenol) 650 mg Q4H PRN PO TEMP > 100.4 02/01/18 14:45 02/10/18 09:15 Heparin Sodium (Porcine) (Heparin Inj) 5,000 units Q12H SQ 02/01/18 16:00 Future hold 02/11/18 04:00 Senna/Docusate Sodium (Bridgette-Colace) 1 tab BID PO 02/01/18 21:00 02/11/18 08:36 Magnesium Hydroxide (Milk Of Magnesia Liq) 30 ml Q12H PRN PO Mild constipation 02/01/18 14:45 02/08/18 09:06 Insulin Aspart (NovoLOG SUPPLEMENTAL SCALE) 1 ACHS SLIDING SCALE SQ 02/01/18 21:00 02/10/18 20:43 Miscellaneous Information Patient in critical care unit? Ass... [id number] .XX 02/02/18 22:45 02/02/18 22:45 Methylprednisolone Sodium Succinate (SoluMEDROL INJ) 125 mg Q48H IV PUSH 02/03/18 11:00 02/11/18 11:01 02/09/18 12:21 Famotidine (Pepcid Inj) 20 mg Q48H IV PUSH 02/03/18 11:00 02/11/18 11:01 02/09/18 12:19 Diphenhydramine HCl (Benadryl Inj) 25 mg UNSCH PRN IV PUSH ALLERGIC REACTION 02/03/18 10:30 02/11/18 23:59 02/09/18 12:41 Anticoagulant Citrate Dextose Serene A (Acd Formula Inj) 1,000 ml Q48H OTHER 02/03/18 11:00 02/11/18 11:01 02/05/18 13:25 Heparin Sodium (Porcine) (Heparin Inj) 1,000 units UNSCH PRN IV FLUSH FLUSH AFTER USING IV ACCESS 02/03/18 10:30 02/11/18 23:59 02/09/18 14:49 Calcium Gluconate 3 gm/Sodium Chloride 180 ml @ 90 mls/hr Q48H IV 02/03/18 12:00 02/11/18 13:59 02/07/18 13:25 Albumin Human 3,000 ml @ 250 mls/hr Q48H IV 02/03/18 14:00 02/12/18 01:59 02/09/18 13:25 Sodium Bicarbonate (Sodium Bicarbonate) 650 mg Q12HR PO 02/05/18 12:00 02/11/18 08:36 Gabapentin (Neurontin) 400 mg TID PO 02/05/18 18:00 02/11/18 08:35 Acetaminophen (Tylenol) 325 mg Q4H PRN PO PAIN SCALE 1 TO 6 02/09/18 12:45 02/10/18 04:24 Acetaminophen/ Hydrocodone Bitart ([place] 10-325 Mg) 1 tab Q4H PRN PO PAIN SCALE 4 TO 10 02/10/18 10:30 02/11/18 05:59 Insulin Detemir (Levemir Inj) 5 units Q12HR SQ 02/10/18 21:00 02/11/18 09:00 Diphenhydramine HCl (Benadryl) 25 mg UNSCH X1 PRN PO PREMED FOR CRYO 02/10/18 23:45 02/11/18 23:44 02/11/18 00:18 Acetaminophen (Tylenol) 650 mg UNSCH X1 PRN PO PREMED FOR CRYO 02/10/18 23:45 02/11/18 23:44 02/11/18 00:19 Objective Remarks GENERAL: Middle aged female, upright in bed in nad SKIN: Warm and dry. vas-cath in place, right neck. HEAD: Normocephalic. EYES: No injection or drainage. NECK: Supple, trachea midline. CARDIOVASCULAR: Regular rate and rhythm RESPIRATORY: Breath sounds equal bilaterally. No accessory muscle use. GASTROINTESTINAL: Abdomen soft, non-tender, nondistended. EXTREMITIES: No cyanosis NEUROLOGICAL: awake, alert. normal speech. moving all extremities. Assessment/Plan Assessment 67y/o female with suspected Guillan-[place] syndrome. Hematology following for plasma exchange. h/o diabetes, hypertension, 02/11: PEX #5 02/10: off day 02/09: PEX #4 02/08: off day 02/07: PEX #3 02/06--off day today. give cryo 02/05: PEX #2 02/04: off day 02/03: PEX # 1 Plan 1. proceed with plasma exchange # 5, last PEX today 2. monitor CBC, BMP, coags, fibrinogen Attending Statement The exam, history, and the medical decision-making described in the above note were completed with the assistance of the mid-level provider. I reviewed and agree with the findings presented. I attest that I had a [id number] encounter with the patient on the same day, and personally performed and documented my assessment and findings in the medical record. doing well and tolerating exchange uneventfully, feels strong and capable of safely returning home where she resides with her . no bleeding associated with or after plasma exchange. once current plasma exchange completed can go home. do not have to wait until tomorrow for discharge. will need catheter removed. Nupur Ricketts Feb 11, 2018 10:17 Zeferino Garcia MD Feb 11, 2018 16:02
[2018-02-11 10:19] LABS: ALKALINE PHOSPHATASE 28 U/L (45-117); ALT (GPT) 17 U/L (10-53); AST (GOT) 15 U/L (15-37); BICARBONATE 27.2 MEQ/L (21.0-32.0); BLOOD UREA NITROGEN 36 MG/DL (7-18); CALCIUM 9.1 MG/DL (8.5-10.1); CHLORIDE 107 MEQ/L (98-107); CREATININE 1.21 MG/DL (0.50-1.00); GLOMERULAR FILTRATION RATE 54 ML/MIN (>89); GLUCOSE,RANDOM 95 MG/DL (74-106); SODIUM (NA) 142 MEQ/L (136-145); TOTAL BILIRUBIN ADULT 0.6 MG/DL (0.2-1.0); TOTAL PROTEIN 6.2 GM/DL (6.4-8.2)
[2018-02-11] MEDS ORDERED: HYDR-3583 PO (10:23)
[2018-02-11] MEDS ORDERED: NEUR400C PO (10:23)
--- NOTE | 2018-02-11 10:25 | HHI.FPPN ---
Subjective Remarks Ms Cohen is all smiles as she is doing so well she doesn't need any PT. Her pain is manageable now and greatly improved in her legs since admission. Her motor strength is basically back to normal. She will have her last plasmapheresis today and may be able to go home today vs tomorrow depending on her Hematologists judgement. She has no complaints at all. Objective Vitals Vital Signs Date Time Temp Pulse Resp B/P (MAP) Pulse Ox O2 Delivery O2 Flow Rate FiO2 02/11/18 08:00 98.0 58 20 148/68 (94) 98 02/11/18 04:00 97.5 64 17 139/65 (89) 99 02/11/18 03:15 16 02/11/18 01:15 98.1 92 16 128/64 100 02/11/18 00:30 97.6 66 16 132/70 99 02/11/18 00:00 97.7 60 16 133/68 99 02/11/18 00:00 97.7 60 16 133/60 (84) 99 02/10/18 23:45 98.1 62 16 132/66 100 02/10/18 23:30 97.3 65 16 132/63 100 02/10/18 20:00 97.9 60 16 110/55 (73) 99 02/10/18 17:34 99 21 02/10/18 16:00 98.4 64 20 140/63 (88) 99 02/10/18 12:09 97.9 67 18 133/65 (87) 100 I/O 02/10/18 02/10/18 02/10/18 02/11/18 02/11/18 02/11/18 07:00 15:00 23:00 07:00 15:00 23:00 Intake Total 480 ml 2103 ml Output Total 2 ml Balance -2 ml 480 ml 2103 ml Intake Oral 480 ml 1830 ml Cryoprecipitate 253 ml Blood Product IV Normal Saline Flush 20 ml Output Urine Total 2 ml # Voids 3 3 # Bowel Movements 1 0 1 Result Diagram: 02/11/18 0837 02/10/18 0757 Objective Remarks GENERAL: This is a pleasant, sweet middle-aged female, soft-spoken, walking around room with her walker and 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 EYES: Extraocular motions intact. No scleral icterus. No injection or drainage. NECK: Trachea midline. No JVD. CARDIOVASCULAR: Regular rate and rhythm without murmurs, gallops, or rubs. RESPIRATORY: Clear to auscultation. Breath sounds equal bilaterally. GASTROINTESTINAL: Abdomen soft, non-tender, nondistended. NEUROLOGICAL: Awake and alert. No focal deficits. 5/5 strength bilaterally in the lower extremities. 5/5 pelt shearer strength in UEs. Normal speech. Procedures Vas-cath placement 02/03/18 Plasmapheresis 02/03/18 Urinary Catheter: No Vascular Central Line Catheter: Yes Assessment to: Remove Date of Insertion: Feb 03, 2018 Line: Central Venous Catheter Side: Right A/P Assessment and Plan 67-year-old female with history of poorly controlled diabetes and gastroparesis presented with DELLA and generalized weakness, unable to get up out of chair. Heme /Onc, neurology and nephrology consulted. Pt with Guillain-[place] Syndrome and getting plasmapheresis x5. Improved nearly completely back to baseline. 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 LP shows increased protein, normal glucose, few RBCs, normal opening pressure. Reflexes were present which confused the issue Physical therapy, Occupational therapy, Neurology consulted. Plasmapheresis initiated per Neuro recs, done by Janel Slaughter her original low forced vital capacity of 65% of normal, became normal with plasmapheresis Case management consulted, doing well no HHC or SNF needed Improved last day treatment today Heme-Onc consulted and following recs: -5 treatments of plasmapheresis; vas-cath and start plasmapheresis 02/03/17 - tentative completion 02/11/18 -Daily CBC, BMP, Coags -XANDER and VDRL/RPR labs all normal so far EMG study as outpt she has some labile BPs which can also result from GB. So far they have not been extremely variable but will watch for that. would not overtreat the higher pressers as if she drops the GB can push the pressures or pulse lower Tylenol for pain plus po norco as needed as she still has neuropathic pain (2) plasma exchange Status: Acute Plan: As above -- Heme/Onc has ordered 5 plasmapheresis treatments spaced every other day; vas-cath has been placed as of 02/03/18 The last treatment will be the 17th if everything goes by expectations. will be able to go home today as Heme signed off (3) DELLA (acute kidney injury) ICD Codes: N17.9 - Acute kidney failure, unspecified Status: Acute Plan: Acute on chronic kidney injury. BUN 60 / Cr 2.25 on admit--> 28/1.35 trending down Urine output .875 L Baseline Mean appears to be 1.2 per previous documentation DELLA from prerenal azotemia from poor intake, improving with maintenance IVF Nephrology consulted, appreciate recs Avoid nephrotoxic agents (4) Peripheral neuropathy ICD Codes: G62.9 - Polyneuropathy, unspecified Status: Acute Plan: Patient has had benefit from gabapentin in past -- complains of burning and numbness in feet this morning -Gabapentin 600mg TID (per Dr Joiner, neurology) - suspect this is from her Guillain [place] as she barely had any pain prior to losing the ability to walk. when that happened the pain became unbearable. Now with each plasmapheresis, her pain lessens - add Tylenol PRN for pain she still needs norco so added that back (5) Hypertension ICD Codes: I10 - Essential (primary) hypertension Status: Chronic Plan: Controlled Continue home carvedilol, amlodipine Hydralazine 10mg PO PRN q6h SBP>180 OR DBP>100 (6) Diabetes mellitus ICD Codes: E11.9 - Type 2 diabetes mellitus without complications Status: Chronic Plan: Diabetes with kidney injury. Sliding scale insulin while inpatient Bedside glucose afternoon 211-233. Fasting glucose of 275 this morning. Start Levemir 5 units BID she has been receiving solumedrol intermittently with plasmapheresis. this is making her glucoses go much higher when she gets this. some days she has better control while other days she will have glucoses up to the 300s. (7) Anemia ICD Codes: D64.9 - Anemia, unspecified Status: Chronic Plan: Hgb 9.2 today -Continue FeSO4 325mg PO BID (8) Dizziness ICD Codes: R42 - Dizziness and giddiness Status: Resolved Plan: Had been constant for the last 2-3 months. Patient suspects that has to do with medications because symptom begins after taking medication and resolves before she has to take her next doses in the evening. Feels like the room is spinning. No falls from symptom. Improved Discontinued amlodipine and she feels better Orthostatics wnl Con't to monitor as patient is improving (9) FEN Status: Acute Plan: Fluids: None Electrodes: Monitor and replace as needed Nutrition: Diabetic diet Prophylaxis: Heparin, SCDs Bowel regimen - as needed Problem Qualifiers (1) Peripheral neuropathy: Qualified Codes: G62.9 - Polyneuropathy, unspecified (2) Diabetes mellitus: (3) Anemia: Qualified Codes: D50.9 - Iron deficiency anemia, unspecified Desirae Clark MD Feb 11, 2018 10:25
--- NOTE | 2018-02-11 11:41 | HHI.PR ---
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 Hayes in 2-3 weeks (2) Hypertension ICD Codes: I10 - Essential (primary) hypertension Status: Chronic (3) Diabetes mellitus ICD Codes: E11.9 - Type 2 diabetes mellitus without complications Status: Chronic Subjective Subjective Comments xcover feels stronger No acute events reported No headache No chest pain No dyspnea Active Medications Current Medications Medications (Trade) Dose Ordered Sig/Alisha Route Start Time Stop Time Status Last Admin (Norvasc) 10 mg DAILY PO 02/01/18 14:30 Future Hold 02/08/18 08:31 (Ecotrin Ec) 325 mg DAILY PO 02/01/18 14:30 Future Hold 02/01/18 15:46 (Coreg) 12.5 mg Q12HR PO 02/01/18 21:00 02/11/18 08:35 (Ferrous Sulfate) 325 mg BID PO 02/02/18 09:00 02/11/18 08:35 (Lopid) 300 mg DAILY PO 02/02/18 09:00 02/11/18 08:36 (Protonix) 40 mg DAILY PO 02/02/18 09:00 02/11/18 08:36 (Pravachol) 10 mg DAILY PO 02/02/18 09:00 02/11/18 08:36 Sodium Chloride 1,000 ml @ 100 mls/hr Q10H IV 02/01/18 14:34 Future Hold 02/02/18 10:34 (NS Flush) 2 ml UNSCH PRN IV FLUSH 02/01/18 14:45 (NS Flush) 2 ml BID IV FLUSH 02/01/18 21:00 02/11/18 08:37 (Tylenol) 650 mg Q4H PRN PO 02/01/18 14:45 02/10/18 09:15 (Zofran Inj) 4 mg Q6H PRN IVP 02/01/18 14:45 (Heparin Inj) 5,000 units Q12H SQ 02/01/18 16:00 Future hold 02/11/18 04:00 (Narcan Inj) 0.4 mg UNSCH PRN IV PUSH 02/01/18 14:45 (Bridgette-Colace) 1 tab BID PO 02/01/18 21:00 02/11/18 08:36 (Milk Of Magnesia Liq) 30 ml Q12H PRN PO 02/01/18 14:45 02/08/18 09:06 (Senokot) 17.2 mg Q12H PRN PO 02/01/18 14:45 (Dulcolax Supp) 10 mg DAILY PRN RECTAL 02/01/18 14:45 (Lactulose Liq) 30 ml DAILY PRN PO 02/01/18 14:45 (D50w (Vial) Inj) 50 ml UNSCH PRN IV PUSH 02/01/18 17:15 (Glucagon Inj) 1 mg UNSCH PRN OTHER 02/01/18 17:15 (NovoLOG SUPPLEMENTAL SCALE) 1 ACHS SLIDING SCALE SQ 02/01/18 21:00 02/10/18 20:43 Miscellaneous Information Patient in critical care unit? Ass... Q361D .XX 02/02/18 22:45 02/02/18 22:45 (NS Flush) UNSCH PRN IV FLUSH 02/03/18 09:45 (Heparin Inj) UNSCH PRN IV FLUSH 02/03/18 09:45 (Benadryl Inj) 25 mg UNSCH PRN IV PUSH 02/03/18 10:30 02/11/18 23:59 02/09/18 12:41 Sodium Chloride 1,000 ml @ 0 mls/hr Q0M PRN IV 02/03/18 10:30 02/11/18 23:59 (NS Flush) 10 ml UNSCH PRN IV FLUSH 02/03/18 10:30 02/11/18 23:59 (Heparin Inj) 5,000 units UNSCH PRN IV FLUSH 02/03/18 10:30 02/11/18 23:59 (Heparin Inj) 1,000 units UNSCH PRN IV FLUSH 02/03/18 10:30 02/11/18 23:59 02/09/18 14:49 Calcium Gluconate 3 gm/Sodium Chloride 180 ml @ 90 mls/hr Q48H IV 02/03/18 12:00 02/11/18 13:59 02/07/18 13:25 Albumin Human 3,000 ml @ 250 mls/hr Q48H IV 02/03/18 14:00 02/12/18 01:59 02/09/18 13:25 (Apresoline) 10 mg Q6HR PRN PO 02/04/18 10:00 (Sodium Bicarbonate) 650 mg Q12HR PO 02/05/18 12:00 02/11/18 08:36 (Neurontin) 400 mg TID PO 02/05/18 18:00 02/11/18 08:35 (Tylenol) 325 mg Q4H PRN PO 02/09/18 12:45 02/10/18 04:24 (Mobile 10-325 Mg) 1 tab Q4H PRN PO 02/10/18 10:30 02/11/18 10:23 (Levemir Inj) 5 units Q12HR SQ 02/10/18 21:00 02/11/18 09:00 (Benadryl) 25 mg UNSCH X1 PRN PO 02/10/18 23:45 02/11/18 23:44 02/11/18 00:18 (Tylenol) 650 mg UNSCH X1 PRN PO 02/10/18 23:45 02/11/18 23:44 02/11/18 00:19 Allergies Allergies Coded Allergies metformin (Verified Allergy, Severe, Numbness, 12/22/17) clonidine (Verified Allergy, Unknown, 12/22/17) Review of Systems All other ROS: ROS reviewed as documented in chart Exam I&O / VS Vital Signs Date Time Temp Pulse Resp B/P (MAP) Pulse Ox O2 Delivery O2 Flow Rate FiO2 02/11/18 08:00 98.0 58 20 148/68 (94) 98 02/11/18 04:00 97.5 64 17 139/65 (89) 99 02/11/18 03:15 16 02/11/18 01:15 98.1 92 16 128/64 100 02/11/18 00:30 97.6 66 16 132/70 99 02/11/18 00:00 97.7 60 16 133/68 99 02/11/18 00:00 97.7 60 16 133/60 (84) 99 02/10/18 23:45 98.1 62 16 132/66 100 02/10/18 23:30 97.3 65 16 132/63 100 02/10/18 20:00 97.9 60 16 110/55 (73) 99 02/10/18 17:34 99 21 02/10/18 16:00 98.4 64 20 140/63 (88) 99 02/10/18 12:09 97.9 67 18 133/65 (87) 100 General: Alert and Oriented, No acute distress Eye: EOMI Respiratory: Non-labored respirations Cardiology: Normal rate Musculoskeletal: ROM Neurologic: Alert, Oriented, Normal motor, CN II-XII intact Psychiatric: Cooperative, Appropriate mood & affect Objective Micro and Labs Laboratory Tests Test 02/11/18 08:37 White Blood Count 8.2 Red Blood Count 3.02 Hemoglobin 9.2 Hematocrit 27.0 Mean Corpuscular Volume 89.7 Mean Corpuscular Hemoglobin 30.6 Mean Corpuscular Hemoglobin Concent 34.2 Red Cell Distribution Width 14.1 Platelet Count 295 Mean Platelet Volume 7.1 Neutrophils (%) (Auto) 29.1 Lymphocytes (%) (Auto) 56.4 Monocytes (%) (Auto) 7.9 Eosinophils (%) (Auto) 5.7 Basophils (%) (Auto) 0.9 Neutrophils # (Auto) 2.4 Lymphocytes # (Auto) 4.6 Monocytes # (Auto) 0.6 Eosinophils # (Auto) 0.5 Basophils # (Auto) 0.1 CBC Comment AUTO DIFF Differential Comment AUTO DIFF CONFIRMED Platelet Estimate NORMAL Platelet Morphology Comment NORMAL Red Cell Morphology Comment NORMAL Prothrombin Time 9.7 Prothromb Time International Ratio 1.0 Activated Partial Thromboplast Time 25.4 Fibrinogen 274 Blood Urea Nitrogen 36 Creatinine 1.21 Random Glucose 95 Total Protein 6.2 Albumin 4.0 Calcium Level 9.1 Alkaline Phosphatase 28 Aspartate Amino Transf (AST/SGOT) 15 Alanine Aminotransferase (ALT/SGPT) 17 Total Bilirubin 0.6 Sodium Level 142 Potassium Level 4.4 Chloride Level 107 Carbon Dioxide Level 27.2 Anion Gap 8 Estimat Glomerular Filtration Rate 54 Date/Time Source Procedure Growth Status 02/02/18 12:26 Cerebral Spinal Fluid Lumbar Puncture Gram Stain - Final Complete 02/02/18 12:26 Cerebral Spinal Fluid Lumbar Puncture CSF Culture - Final NO GROWTH IN 72 HOURS Complete Problem Qualifiers (1) Hypertension: Qualified Codes: I10 - Essential (primary) hypertension (2) Diabetes mellitus: Qualified Codes: E11.22 - Type 2 diabetes mellitus with diabetic chronic kidney disease Froilan Montalvo MD Feb 11, 2018 11:41
--- NOTE | 2018-02-11 12:09 | HHI.DS ---
Discharge Summary Admission Date Feb 01, 2018 at 13:50 Admitting Diagnosis DELLA, Generalized weakness. (1) Guillain Ring syndrome Plan: Guillain [place] is the likely diagnosis at this time.LP shows increased protein, normal glucose, few RBCs, normal opening pressure. Reflexes were present which confused the issue Physical therapy, Occupational therapy, Neurology consulted. Plasmapheresis initiated per Neuro recs, done by Heme Onc her original low forced vital capacity of 65% of normal, became normal with plasmapheresis Case management consulted, doing well no HHC or SNF needed Improved last day treatment today Heme-Onc consulted and following recs: -5 treatments of plasmapheresis; vas-cath and start plasmapheresis 02/03/17 - tentative completion 02/11/18 -Daily CBC, BMP, Coags -XANDER and VDRL/RPR labs all normal so far EMG study as outpt ICD Codes: G61.0 - Guillain-[place] syndrome Status: Acute (2) plasma exchange Plan: As above -- Heme/Onc has ordered 5 plasmapheresis treatments spaced every other day; vas-cath has been placed as of 02/03/18 The last treatment will be the if everything goes by expectations. will be able to go home when Heme signs off as she has needed treatment after her last few plasmapheresis. Status: Acute (3) DELLA (acute kidney injury) Plan: Acute on chronic kidney injury. BUN 60 / Cr 2.25 on admit--> 28/1.35 trending down Urine output .875 L Baseline Mean appears to be 1.2 per previous documentation DELLA from prerenal azotemia from poor intake, improving with maintenance IVF Nephrology consulted, appreciate recs Avoid nephrotoxic agents ICD Codes: N17.9 - Acute kidney failure, unspecified Status: Resolved (4) Peripheral neuropathy Plan: Patient has had benefit from gabapentin in past -- complains of burning and numbness in feet this morning -Gabapentin 600mg TID (per Dr Joiner, neurology) - suspect this is from her Guillain [place] as she barely had any pain prior to losing the ability to walk. when that happened the pain became unbearable. Now with each plasmapheresis, her pain lessens - add Tylenol PRN for pain - still requires norco occasionally ICD Codes: G62.9 - Polyneuropathy, unspecified Status: Acute (5) Hypertension Plan: Controlled Continue home carvedilol, amlodipine Hydralazine 10mg PO PRN q6h SBP>180 OR DBP>100 ICD Codes: I10 - Essential (primary) hypertension Status: Chronic (6) Diabetes mellitus Plan: Diabetes with kidney injury. Sliding scale insulin while inpatient Levemir 5 units BID she has been receiving solumedrol intermittently with plasmapheresis. this is making her glucoses go much higher when she gets this. some days she has better control while other days she will have glucoses up to the 300s. ICD Codes: E11.9 - Type 2 diabetes mellitus without complications Status: Chronic (7) Anemia Plan: -Continue FeSO4 325mg PO BID ICD Codes: D64.9 - Anemia, unspecified Status: Chronic (8) Dizziness Plan: Has been constant for the last 2-3 months. Patient suspects that has to do with medications because symptom begins after taking medication and resolves before she has to take her next doses in the evening. Feels like the room is spinning. No falls from symptom. Improved Discontinued amlodipine Orthostatics wnl Con't to monitor as patient is improving ICD Codes: R42 - Dizziness and giddiness Status: Resolved Consultants Hematology, nephrology, neurology, case management Procedures Vas-cath placement 02/03/18 Plasmapheresis 02/03/18 Brief History Ms Cohen is a 67-year-old female with poorly controlled diabetes with multiple previous complications who presents with weakness which has been increasing over the past month. However, over the past week her weakness has been getting much worse. Patient states that yesterday she could not get out of her chair to walk to the bathroom and she had a bowel movement and urinated on herself. She does live with her , but states that he has to work. She does complain of diabetic neuropathy in her legs which has been ongoing. We recently increased her gabapentin to 400 mg twice a day and she states this is helping. She denies abdominal pain, dysuria, fever, chest pain, shortness of breath. She has not yet been able to get an appointment with a schedule manager as an outpatient. At her last appointment, we had ordered continued physical therapy, but she has not yet been able to go to this. Patient states her appetite has been fair, although she states her daughter would likely say she has been eating and drinking less. Per her daughter over the phone, last Tuesday she could walk though slowly compared to her norm. On she had trouble walking where before that she had been independent with toileting and getting around her house. She had to go back to a wheelchair last . On Tuesday, she had trouble feeding herself and was feeling weaker in the arms. She does say her "whole body hurts". Now she cannot speak loudly and states that her breath is weak so she can only speak with very diminished volume. She denies any recent infections or illness. Her also confirmed the history of a one week worsening of ncreasing pain and decreasing strength. CBC/BMP: 02/11/18 0837 02/11/18 0837 Significant Findings Laboratory Tests Test 02/09/18 07:13 02/10/18 07:57 02/11/18 08:37 Red Blood Count 3.17 MIL/MM3 (4.00-5.30) 3.37 MIL/MM3 (4.00-5.30) 3.02 MIL/MM3 (4.00-5.30) Hemoglobin 9.6 GM/DL (11.6-15.3) 10.0 GM/DL (11.6-15.3) 9.2 GM/DL (11.6-15.3) Hematocrit 28.5 % (35.0-46.0) 30.1 % (35.0-46.0) 27.0 % (35.0-46.0) Lymphocytes (%) (Auto) 47.9 % (9.0-44.0) 56.4 % (9.0-44.0) Eosinophils (%) (Auto) 7.1 % (0.0-4.0) 5.7 % (0.0-4.0) Eosinophils # (Auto) 0.7 TH/MM3 (0-0.4) 0.5 TH/MM3 (0-0.4) Activated Partial Thromboplast Time 32.0 SEC (24.3-30.1) Blood Urea Nitrogen 32 MG/DL (7-18) 33 MG/DL (7-18) 36 MG/DL (7-18) Creatinine 1.33 MG/DL (0.50-1.00) 1.33 MG/DL (0.50-1.00) 1.21 MG/DL (0.50-1.00) Random Glucose 167 MG/DL (74-106) 189 MG/DL (74-106) Estimat Glomerular Filtration Rate 48 ML/MIN (>89) 48 ML/MIN (>89) 54 ML/MIN (>89) White Blood Count 11.6 TH/MM3 (4.0-11.0) Fibrinogen 135 mg/dL (227-377) Prothrombin Time 9.7 SEC (9.8-11.6) Total Protein 6.2 GM/DL (6.4-8.2) Alkaline Phosphatase 28 U/L (45-117) Imaging Last Impressions Lumbar Spine MRI 02/03/18 1156 Signed Impressions: Service Date/Time: Saturday, February 03, 2018 21:39 - CONCLUSION: 1. Mild bulging of the L4-5 disc. Otherwise negative exam. Corey Coley MD Cervical Spine MRI 02/03/18 1156 Signed Impressions: Service Date/Time: Saturday, February 03, 2018 21:39 - CONCLUSION: 1. Mild size right disc protrusion C5-6. 2. No evidence of cord compression. Corey Coley MD Thoracic Spine MRI 02/03/18 0000 Signed Impressions: Service Date/Time: Saturday, February 03, 2018 21:39 - CONCLUSION: Negative MRI of the thoracic spine. Corey Coley MD Catheter Placement X-Ray 02/03/18 Signed Impressions: Service Date/Time: Saturday, February 03, 2018 09:03 - CONCLUSION: Uncomplicated line placement as above. Corey Millan Jr., MD Lumbar Puncture Fluoroscopy 02/02/18 0000 Signed Impressions: Service Date/Time: January 13:25 - CONCLUSION: Uncomplicated fluoroscopically guided lumbar puncture with pressures as above. Gerard Dorantes MD Brain MRI 02/02/18 0000 Signed Impressions: Service Date/Time: January 12:47 - CONCLUSION: Minimal periventricular white matter changes. Otherwise negative. Rony Sarabia MD Chest X-Ray 02/01/18 4330 Signed Impressions: Service Date/Time: Thursday, February 01, 2018 09:23 - CONCLUSION: 1. No acute cardiopulmonary findings. 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 EYES: Extraocular motions intact. No scleral icterus. No injection or drainage. NECK: Trachea midline. No JVD. CARDIOVASCULAR: Regular rate and rhythm without murmurs, gallops, or rubs. RESPIRATORY: Clear to auscultation. Breath sounds equal bilaterally. GASTROINTESTINAL: Abdomen soft, non-tender, nondistended. NEUROLOGICAL: Awake and alert. No focal deficits. 5/5 strength bilaterally in the lower extremities. 5/5 retention manager strength in UEs. Normal speech. Hospital Course 67-year-old female with history of poorly controlled diabetes and gastroparesis presents with DELLA, dizziness, and generalized weakness. Heme/Onc, neurology and nephrology consulted. Pt suspected with Guillain-[place] Syndrome and plasmapheresis for 5 treatments planned via Vas-Cath. Plasmapheresis treatments were given every other day. Patient has been given steroids (prednisone) beforehand. Forced vital capacity was found to be 65% of normal and patient's respiratory function was observed; however this improved with plasmapheresis and patient did not require ventilation assistance. Patient complained of burning and numbness in her feet. Gabapentin 600 mg 3 times a day was continued for her (prescribed by her neurologist). Tylenol and Doland were added to be taken when necessary for pain. For her dizziness, amlodipine was discontinued. Orthotics were found to be within normal limits and her dizziness improved over the course of admission. AK I was observed in labs with a B when of 60, creatinine of 2.25 on admission.It seemed to likely be related to prerenal azotemia associated with poor intake. Nephrotoxins were avoided in patients daily labs were monitored. This improved over the course of admission. Patient worked with PT for strengthening and gait training. Initially patient has motor strength is 3 out of 5 and she was unable to rise by herself from bed. However, she improved to being able to walk across the hospital floor using only a walker which, in her words, was for her sense of insecurity ("just in case"). PT signed off on patient as she improved significantly and no longer required assistance. Patient was discharged home with home health and instructions to follow-up with neurology in 2-3 weeks for further management and possible EMG study. Patient will need to continue physical therapy and to follow up with her PCP within a week. Pt Condition on Discharge: Stable Discharge Disposition: Discharge Home Discharge Instructions DIET: Follow Instructions for: Diabetic Diet Speech Therapy-Diet Recommends: Pureed Activities you can perform: Regular-No Restrictions Follow up Referrals: Neurology - 1 Week PCP Follow-up - 1 Week SNF/[facility]/ with [facility] New Medications: Gabapentin (Neurontin) 400 Mg Cap 400 MG PO TID, #90 CAP 0 Refills Changed Medications: Hydrocodone/Acetaminophen (Hydrocodone-Acetamin 10-325 mg) 10 Mg-325 Mg Tablet 1 TAB PO TID PRN for pain, #15 TAB (Changed from: Q4H; 60) Continued Medications: Aspirin DR (Aspirin EC) 325 Mg Tabdr 325 MG PO DAILY, #30 TAB Carvedilol (Coreg) 12.5 Mg Tab 12.5 MG PO Q12HR, #60 TAB Ferrous Sulfate (Ferosul) 325 Mg (65 Mg Iron) Tablet 325 MG PO BID, #60 Gemfibrozil (Lopid) 600 Mg Tab 300 MG PO DAILY, #30 TAB Take 30 minutes prior to meal Hydrochlorothiazide (Hydrochlorothiazide) 25 Mg Tab 25 MG PO DAILY, #30 TAB Insulin Aspart Inj (Novolog Inj) 100 Unit/Ml Inj 1 UNIT SQ ACHS SLIDING SCALE, #1 INJECTION Ipratropium-Albuterol Neb (Duoneb) 0.5-2.5 Mg/3 Ml Neb 3 ML NEB BID for Breathing Treatment, #30 NEBULE 0 Refills Multivitamin with Folic Acid (Thera Tablet) 400 Mcg Tablet 1 TAB PO DAILY, #30 TAB Pantoprazole (Pantoprazole) 40 Mg Tab 40 MG PO DAILY, #30 TAB Potassium Chloride Microencaps (Potassium Chloride Microencaps) 20 Meq Tab 20 MEQ PO DAILY, #30 TAB Pravastatin (Pravastatin) 10 Mg Tab 10 MG PO DAILY for Cholesterol Management, #30 TAB 0 Refills Sennosides-Docusate Sodium (Gnp Senna Plus 8.6-50 mg) 8.6 Mg-50 Mg Tab 1 TAB PO BID, #60 TAB Discontinued Medications: Amlodipine (Amlodipine) 10 Mg Tab 10 MG PO DAILY for Blood Pressure Management, #60 TAB 4 Refills Gabapentin (Gabapentin) 100 Mg Cap 100 MG PO HS, #30 CAP 0 Refills Miriam Yu MD R1 Feb 11, 2018 12:09
[2018-02-11] MEDS: FAMOTIDINE 20 MG/2 ML VIAL IV PUSH SCH (14:00)
[2018-02-11] MEDS: methylPREDNISolone SOD SUCC 125 MG/2 ML VIAL IV PUSH SCH (14:01)
[2018-02-11] MEDS: CALCIUM GLUCONATE INJ 3 GM in SODIUM CHLORIDE 0.9% INJ 150 ML IV SCH (14:01)
[2018-02-11] MEDS: ANTICOAGULANT CITRATE DEXTROSE SOLN-A 1L OTHER SCH (14:02)
[2018-02-11] MEDS: ALBUMIN 5% IV SCH (14:02)
--- NOTE | 2018-02-11 16:43 | HHI.NPPN ---
Subjective Renal Failure: Acute History of Present Illness This is a 67-year-old female with past medical history diabetes mellitus, hypertension, ischemic heart disease, history of recurrent urinary tract infection, patient with history of pyelonephritis and acute kidney injury, was brought to the hospital because of generalized weakness and decreased oral intake. I was called to see the patient because of elevated BUN and creatinine. The patient has history of acute kidney injury and she as seen by me when she was here in October. At that time, her creatinine was as high as 4.6, this was in September, and then it improved and the creatinine stayed in a range of 1.1-1.2 most of the time. The patient has the last creatinine of 1.3, which was in November 2017. Now, she came with a creatinine of 1.2. The patient admits that she has not been eating very well for the last week or so.She has been feeling weak and tired. There is no nausea or vomiting. No history of diarrhea. She denies taking any nonsteroidal anti-inflammatory drug. There is no hematuria or dysuria. She did not notice any decrease in the urine output. Additional Remarks No acute complaints. Review of Systems Respiratory Respiratory Remarks Denies SOB Cardiovascular Cardiac Remarks Denies any CP Gastrointestinal GI Remarks Denies any abdominal pain Genitourinary Remarks Denies dysuria Objective Data Data Vital Signs Date Time Temp Pulse Resp B/P (MAP) Pulse Ox O2 Delivery O2 Flow Rate FiO2 02/11/18 12:00 97.9 58 20 98/51 (67) 100 02/11/18 08:00 98.0 58 20 148/68 (94) 98 02/11/18 04:00 97.5 64 17 139/65 (89) 99 02/11/18 03:15 16 02/11/18 01:15 98.1 92 16 128/64 100 02/11/18 00:30 97.6 66 16 132/70 99 02/11/18 00:00 97.7 60 16 133/68 99 02/11/18 00:00 97.7 60 16 133/60 (84) 99 02/10/18 23:45 98.1 62 16 132/66 100 02/10/18 23:30 97.3 65 16 132/63 100 02/10/18 20:00 97.9 60 16 110/55 (73) 99 02/10/18 17:34 99 21 -: 02/11/18 0837 02/11/18 0837 Tubes & Lines: Vas-Cath Physical Exam General Appearance: No Acute Distress, Comfortable Throat Throat Exam: Oral Mucosa Sabinal & Moist Pulmonary Resp Exam: Breath Sounds Equal, No Distress Cardiology CV Exam: Regular Gastrointestinal/Abdomen GI Exam: Soft, Non-Tender Genitourinary Exam: Flank Non-Tender Integumentary Skin Exam: Warm, Dry Extremeties Extremities Exam: No Edema Neurologic Neuro Exam: Alert, Awake, Oriented Psychiatric Psych Exam: Appropriate Responses Assessment/Plan Assessment Summary: DELLA/Acute Renal Failure, CKD Stage III Electrolyte Assessment: Hypokalemia Problem List: (1) DELLA (acute kidney injury) ICD Codes: N17.9 - Acute kidney failure, unspecified Status: Resolved Plan: Acute kidney injury most likely related to prerenal azotemia with poor intake Creatinine is stable at 1.2 today. Non oliguric Vas cath placed and patient has been receiving plasmapheresis Avoid nephrotoxins Creatine is stable and good UOP Stable for d/c from renal standpoint (2) Generalized weakness ICD Codes: R53.1 - Weakness Status: Acute (3) Peripheral neuropathy ICD Codes: G62.9 - Polyneuropathy, unspecified Status: Acute (4) Diabetes mellitus ICD Codes: E11.9 - Type 2 diabetes mellitus without complications Status: Chronic (5) Hypertension ICD Codes: I10 - Essential (primary) hypertension Status: Chronic Plan: Well controlled Problem Qualifiers (1) Peripheral neuropathy: Qualified Codes: G62.9 - Polyneuropathy, unspecified (2) Diabetes mellitus: Gerard Washington MD Feb 11, 2018 16:43
== END 2018-02-11 18:35 | disposition home health service (06) | DRG 95 ==
LOC: NEPE 08:17 → NEDA 13:50 → N04A 18:38 → N04B 02-02 11:51 → HIME 02-02 11:52 → N04B 02-06 11:20
PROVIDERS: ADMIT Family Medicine; ATTEND Family Medicine
PROC: 009U3ZX Drainage of Spinal Canal, Percutaneous Approach, Diagnostic (ICD-10-PCS; 2018-02-02)
PROC: 6A551Z3 Pheresis of Plasma, Multiple (ICD-10-PCS; 2018-02-03)
PROC: 05HM33Z Insertion of Infusion Device into Right Internal Jugular Vein, Percutaneous Approach (ICD-10-PCS; 2018-02-03)
PROC: 30233M1 Transfusion of Nonautologous Plasma Cryoprecipitate into Peripheral Vein, Percutaneous Approach (ICD-10-PCS; principal; 2018-02-06)
DX: G61.0 Guillain-Barre syndrome (principal); I13.0 Hypertensive heart and chronic kidney disease with heart failure and stage 1 through stage 4 chronic kidney disease, or unspecified chronic kidney disease; N17.9 Acute kidney failure, unspecified; E11.22 Type 2 diabetes mellitus with diabetic chronic kidney disease; E11.42 Type 2 diabetes mellitus with diabetic polyneuropathy; I50.9 Heart failure, unspecified; K31.84 Gastroparesis; E83.52 Hypercalcemia; Z86.73 Personal history of transient ischemic attack (TIA), and cerebral infarction without residual deficits; N18.3 Chronic kidney disease, stage 3 (moderate); E78.5 Hyperlipidemia, unspecified; Z87.440 Personal history of urinary (tract) infections; Z91.19 Patient's noncompliance with other medical treatment and regimen; I25.9 Chronic ischemic heart disease, unspecified; E11.65 Type 2 diabetes mellitus with hyperglycemia; E87.6 Hypokalemia; Z79.4 Long term (current) use of insulin; K59.00 Constipation, unspecified; D50.9 Iron deficiency anemia, unspecified
CPT/HCPCS: 36430; 36514; 36556; 62270; 70551; 71045; 72141; 72146; 72148; 76937; 77001; 77003; 80048; 80053; 81001; 82550; 82607; 82945; 82948; 83036; 83605; 83615; 83735; 83880; 83921; 83935; 84157; 84165; 84207; 84300; 84425; 84436; 84443; 84484; 85007; 85025; 85027; 85384; 85610; 85652; 85730; 86038; 86140; 86592; 86965; 87070; 87205; 87498; 87529; 87641; 88108; 89051; 93005; 94150; 94640; 96360; 96361; C1752; J0610; J1200; J1644; J1815; J2930; J7030; J7040; P9045; P9612

== ENCOUNTER 2018-04-03 16:38 | Inpatient (IN) | payer MEDICARE ==
[2018-04-03] MEDS: PIPERACIL-TAZO 4.5 GM PREMIX 100 ML IV (18:04)
[2018-04-03 18:34] LABS: AUTOMATED NEUTROPHIL # 2.7 TH/MM3 (1.8-7.7); BASOPHIL # 0.1 TH/MM3 (0-0.2); BASOPHIL % 1.2 % (0.0-2.0); EOSINOPHIL # 0.6 TH/MM3 (0-0.4); HEMATOCRIT 30.5 % (35.0-46.0); HEMO FLAGS DIFF FINAL; HEMOGLOBIN 10.3 GM/DL (11.6-15.3); LYMPH % 50.2 % (9.0-44.0); LYMPHOCYTE # 3.8 TH/MM3 (1.0-4.8); MEAN CELL VOLUME 89.4 FL (80.0-100.0); MEAN CORPUSCULAR HEMOGLOBIN 30.3 PG (27.0-34.0); MEAN CORPUSCULAR HGB CONC 33.8 % (32.0-36.0); MEAN PLATELET VOLUME 7.2 FL (7.0-11.0); MONO % 5.6 % (0.0-8.0); MONOCYTE # 0.4 TH/MM3 (0-0.9); PLATELET COUNT 470 TH/MM3 (150-450); RED BLOOD COUNT 3.41 MIL/MM3 (4.00-5.30); RED CELL DISTRIBUTION WIDTH 13.8 % (11.6-17.2); WHITE BLOOD COUNT 7.6 TH/MM3 (4.0-11.0)
[2018-04-03] MEDS: VANCOMYCIN INJ 1,000 MG in SODIUM CHLOR 0.9% 250 ML INJ 250 ML IV (18:39)
[2018-04-03 18:42] LABS: LACTIC ACID SEPSIS PROTOCOL 0.8 mmol/L (0.4-2.0)
[2018-04-03 19:08] LABS: BLOOD UREA NITROGEN 59 MG/DL (7-18); CREATININE 1.79 MG/DL (0.50-1.00); GLOMERULAR FILTRATION RATE 34 ML/MIN (>89)
[2018-04-03 19:09] LABS: ALBUMIN 3.4 GM/DL (3.4-5.0); ALKALINE PHOSPHATASE 96 U/L (45-117); AST (GOT) 40 U/L (15-37); CALCIUM 10.2 MG/DL (8.5-10.1); GLUCOSE,RANDOM 111 MG/DL (74-106); POTASSIUM 6.6 MEQ/L (3.5-5.1); TOTAL PROTEIN 8.7 GM/DL (6.4-8.2)
[2018-04-03 19:10] LABS: ALT (GPT) 15 U/L (10-53); ANION GAP 9 MEQ/L (5-15); BICARBONATE 20.7 MEQ/L (21.0-32.0); CHLORIDE 106 MEQ/L (98-107); SODIUM (NA) 136 MEQ/L (136-145); TOTAL BILIRUBIN ADULT 0.3 MG/DL (0.2-1.0)
[2018-04-03] MEDS: GADOBENATE DIM PF 529 MG/ML 5 ML VIAL (for RAD MRI) IV (19:46)
[2018-04-03 20:17] LABS: AMORPHOUS SEDIMENT, URINE RARE; BACTERIA, URINE RARE /hpf; BILIRUBIN, URINE NEG (NEG); BLOOD, URINE SMALL (NEG); COMMENT (UR) CATH-CULTURE IND; CULTURE IF INDICATED CATH CULTURE IND; GLUCOSE,URINE NEG (NEG); KETONE, URINE NEG (NEG); NITRITE,URINE NEG (NEG); PH, URINE 5.5 (5.0-8.5); URINE COLOR LIGHT-YELLOW (YELLW/STRAW); URINE LEUKOCYTE ESTERASE LARGE (NEG)
[2018-04-03 20:30] LABS: POTASSIUM 5.1 MEQ/L (3.5-5.1)
[2018-04-03] MEDS: MORPHINE SULFATE 2 MG/ML SYRINGE IV PUSH (20:36)
[2018-04-03] MEDS ORDERED: GLUCAGON 1 MG/ML VIAL OTHER (21:45)
[2018-04-03] MEDS ORDERED: NALOXONE HCL 0.4 MG/ML AMP IV PUSH (21:45)
[2018-04-03] MEDS ORDERED: ONDANSETRON HCL 4 MG/2 ML VIAL IVP (21:45)
[2018-04-03] MEDS ORDERED: DEXTROSE 50% IN WATER 50 ML VIAL(D50) IV PUSH (21:45)
[2018-04-03] MEDS ORDERED: SODIUM CHLORIDE 0.9% FLUSH 10 ML FLUSH IV FLUSH (21:45)
[2018-04-03] MEDS ORDERED: BISACODYL 10 MG SUPP RECTAL (21:45)
[2018-04-03] MEDS ORDERED: MAGNESIUM HYDROXIDE SUSP 30 ML CUP PO (21:45)
[2018-04-03] MEDS ORDERED: LACTULOSE SYRUP 20 GM/30 ML CUP PO (21:45)
[2018-04-03] MEDS ORDERED: Vancomycin Consult Pharmacy 1 EA OTHER (21:45)
[2018-04-03] MEDS ORDERED: RESP: ALBUTEROL 2.5 MG/IPRATROPIUM 0.5 MG NEB (PRN) NEB (22:00)
[2018-04-03] MEDS ORDERED: PILL SPLITTER OTHER (22:00)
[2018-04-03] MEDS: SODIUM CHLOR 0.9% 1000 ML INJ 1,000 ML IV (22:16)
[2018-04-04] MEDS ORDERED: PIPERACIL-TAZO 4.5 GM PREMIX 100 ML IV
[2018-04-04] MEDS: ACETAMINOPHEN 1000 MG/100 ML 100 ML IV ×3 (01:01→10:17)
[2018-04-04] MEDS: SODIUM CHLOR 0.9% 1000 ML INJ 1,000 ML IV ×2 (01:02→13:47)
[2018-04-04] MEDS: PIPERACIL-TAZO 3.375 GM PREMIX 50 ML IV ×5 (01:27→23:52)
[2018-04-04] MEDS ORDERED: VANCOMYCIN INJ 1,000 MG in SODIUM CHLOR 0.9% 250 ML INJ 250 ML IV (06:00)
[2018-04-04 07:06] LABS: AUTOMATED NEUTROPHIL # 2.8 TH/MM3 (1.8-7.7); BASOPHIL # 0.1 TH/MM3 (0-0.2); BASOPHIL % 1.3 % (0.0-2.0); EOSINOPHIL # 0.6 TH/MM3 (0-0.4); EOSINOPHIL % 8.9 % (0.0-4.0); HEMATOCRIT 29.1 % (35.0-46.0); HEMO FLAGS DIFF FINAL; HEMOGLOBIN 9.9 GM/DL (11.6-15.3); LYMPH % 37.3 % (9.0-44.0); LYMPHOCYTE # 2.4 TH/MM3 (1.0-4.8); MEAN CELL VOLUME 87.7 FL (80.0-100.0); MEAN CORPUSCULAR HGB CONC 34.2 % (32.0-36.0); MEAN PLATELET VOLUME 7.1 FL (7.0-11.0); MONO % 7.7 % (0.0-8.0); MONOCYTE # 0.5 TH/MM3 (0-0.9); NEUT % 44.8 % (16.0-70.0); PLATELET COUNT 447 TH/MM3 (150-450); RED BLOOD COUNT 3.31 MIL/MM3 (4.00-5.30); WHITE BLOOD COUNT 6.3 TH/MM3 (4.0-11.0)
[2018-04-04 07:28] LABS: ANION GAP 9 MEQ/L (5-15); BICARBONATE 23.1 MEQ/L (21.0-32.0); BLOOD UREA NITROGEN 57 MG/DL (7-18); CALCIUM 10.1 MG/DL (8.5-10.1); CHLORIDE 110 MEQ/L (98-107); GLOMERULAR FILTRATION RATE 34 ML/MIN (>89); GLUCOSE,RANDOM 93 MG/DL (74-106); POTASSIUM 4.9 MEQ/L (3.5-5.1); SODIUM (NA) 142 MEQ/L (136-145)
[2018-04-04] MEDS: SODIUM CHLORIDE 0.9% FLUSH 10 ML FLUSH IV FLUSH ×2 (08:30→20:49)
[2018-04-04] MEDS: INSULIN ASPART SUPPLEMENTAL SCALE SQ ×4 (08:30→20:51)
[2018-04-04] MEDS: PANTOPRAZOLE SOD 40 MG DELAYED RELEASE TAB PO (08:31)
[2018-04-04] MEDS: GABAPENTIN 400 MG CAP PO ×2 (08:32→20:49)
[2018-04-04] MEDS: HYDROCHLOROTHIAZIDE 25 MG TAB PO (08:32)
[2018-04-04] MEDS: FERROUS SULFATE 325 MG (65 MG ELEMENTAL IRON) TAB PO ×2 (08:32→20:49)
[2018-04-04] MEDS: ASPIRIN EC 325 MG TABEC PO (08:33)
[2018-04-04] MEDS: CARVEDILOL 12.5 MG TAB PO ×2 (08:33→20:49)
[2018-04-04] MEDS: PRAVASTATIN SOD 10 MG TAB PO (08:33)
[2018-04-04] MEDS: SENNOSIDES 8.6 MG TAB PO (08:39)
[2018-04-04] MEDS: MORPHINE SULFATE 4 MG/ML INJ IV ×5 (08:40→22:17)
[2018-04-04 08:52] LABS: WESTERGREN SEDIMENTATION RATE GREATER THAN 140 mm/hr (0-30)
[2018-04-04] MEDS: GEMFIBROZIL 600 MG TAB PO (10:17)
[2018-04-04] MEDS ORDERED: NALOXONE HCL 0.4 MG/ML AMP IV PUSH (11:30)
[2018-04-04] MEDS ORDERED: ACETAMINOPHEN/HYDROcodone 325 MG/5 MG TAB PO (11:30)
[2018-04-04] MEDS: ACETAMINOPHEN/HYDROcodone 325 MG/7.5 MG TAB PO ×2 (13:46→20:49)
[2018-04-04] MEDS: DOCUSATE SODIUM 50 MG/SENNA 8.6 MG TAB PO (20:52)
[2018-04-05] MEDS: MORPHINE SULFATE 4 MG/ML INJ IV ×8 (01:26→23:57)
[2018-04-05] MEDS: ACETAMINOPHEN/HYDROcodone 325 MG/7.5 MG TAB PO ×2 (03:40→09:45)
[2018-04-05] MEDS: PIPERACIL-TAZO 3.375 GM PREMIX 50 ML IV ×2 (05:16→12:57)
[2018-04-05] MEDS: SODIUM CHLOR 0.9% 1000 ML INJ 1,000 ML IV ×3 (05:24→20:46)
[2018-04-05] MEDS: INSULIN ASPART SUPPLEMENTAL SCALE SQ ×4 (08:00→21:00)
[2018-04-05] MEDS: ASPIRIN EC 325 MG TABEC PO (08:23)
[2018-04-05] MEDS: PANTOPRAZOLE SOD 40 MG DELAYED RELEASE TAB PO (08:23)
[2018-04-05] MEDS: COLLAGENASE OINT 30 GM TUBE TOPICAL (08:23)
[2018-04-05] MEDS: GABAPENTIN 400 MG CAP PO ×2 (08:24→21:27)
[2018-04-05] MEDS: CARVEDILOL 12.5 MG TAB PO ×2 (08:24→21:27)
[2018-04-05] MEDS: SODIUM CHLORIDE 0.9% FLUSH 10 ML FLUSH IV FLUSH ×2 (08:24→21:00)
[2018-04-05] MEDS: DOCUSATE SODIUM 50 MG/SENNA 8.6 MG TAB PO ×2 (08:24→21:27)
[2018-04-05] MEDS: PRAVASTATIN SOD 10 MG TAB PO (08:24)
[2018-04-05] MEDS: FERROUS SULFATE 325 MG (65 MG ELEMENTAL IRON) TAB PO ×2 (08:24→21:00)
[2018-04-05] MEDS: GEMFIBROZIL 600 MG TAB PO (08:25)
[2018-04-05 09:39] LABS: BASOPHIL # 0.1 TH/MM3 (0-0.2); BASOPHIL % 1.3 % (0.0-2.0); EOSINOPHIL # 0.5 TH/MM3 (0-0.4); EOSINOPHIL % 6.7 % (0.0-4.0); HEMATOCRIT 28.7 % (35.0-46.0); HEMO FLAGS DIFF FINAL; HEMOGLOBIN 9.7 GM/DL (11.6-15.3); LYMPH % 23.6 % (9.0-44.0); LYMPHOCYTE # 1.9 TH/MM3 (1.0-4.8); MEAN CELL VOLUME 88.5 FL (80.0-100.0); MEAN CORPUSCULAR HGB CONC 33.9 % (32.0-36.0); MEAN PLATELET VOLUME 7.2 FL (7.0-11.0); MONO % 5.9 % (0.0-8.0); MONOCYTE # 0.5 TH/MM3 (0-0.9); NEUT % 62.5 % (16.0-70.0); PLATELET COUNT 422 TH/MM3 (150-450); RED BLOOD COUNT 3.24 MIL/MM3 (4.00-5.30); RED CELL DISTRIBUTION WIDTH 13.9 % (11.6-17.2)
[2018-04-05 09:53] LABS: RANDOM VANCOMYCIN 7.7 COMMENT
[2018-04-05 09:53] LABS: ANION GAP 9 MEQ/L (5-15); BICARBONATE 21.9 MEQ/L (21.0-32.0); BLOOD UREA NITROGEN 43 MG/DL (7-18); CALCIUM 9.7 MG/DL (8.5-10.1); CHLORIDE 111 MEQ/L (98-107); CREATININE 1.68 MG/DL (0.50-1.00); GLOMERULAR FILTRATION RATE 37 ML/MIN (>89); GLUCOSE,RANDOM 90 MG/DL (74-106); POTASSIUM 4.6 MEQ/L (3.5-5.1); SODIUM (NA) 142 MEQ/L (136-145)
[2018-04-05] MEDS ORDERED: ACETAMINOPHEN/HYDROcodone 325 MG/5 MG TAB PO (10:00)
[2018-04-05] MEDS: VANCOMYCIN INJ 1,500 MG in SODIUM CHLORID 0.9% 500 ML INJ 500 ML IV (10:38)
[2018-04-05] MEDS: ACETAMINOPHEN/HYDROcodone 325 MG/10 MG TAB PO ×3 (13:53→21:29)
[2018-04-05] MEDS: ARTIFICIAL TEARS OPTH SOLN 15 ML BTL EACH EYE (14:30)
[2018-04-05] MEDS ORDERED: CHLORHEXIDINE GLUCONATE 2 % 1 PACK (2 CLOTHS) TOPICAL (15:00)
[2018-04-05] MEDS ORDERED: METOPROLOL TARTRATE 25 MG TAB PO (15:00)
[2018-04-05] MEDS ORDERED: SODIUM CHLORID 0.9% 500 ML IV (15:00)
[2018-04-05] MEDS ORDERED: LACTATED RINGER'S 1000 ML IV (15:00)
[2018-04-05] MEDS ORDERED: POVIDONE IODINE 5% (ANTISEPSIS KIT) 4 APPLICATIONS EACH NARE (15:00)
[2018-04-05] MEDS: DAPTOmycin INJ 500 MG in SODIUM CHLORIDE 0.9% INJ 100 ML IV (17:36)
[2018-04-06] MEDS: ACETAMINOPHEN/HYDROcodone 325 MG/10 MG TAB PO ×5 (01:38→20:12)
[2018-04-06] MEDS: SODIUM CHLOR 0.9% 1000 ML INJ 1,000 ML IV ×5 (01:40→19:15)
[2018-04-06] MEDS: MORPHINE SULFATE 4 MG/ML INJ IV ×3 (03:13→20:12)
[2018-04-06 05:24] LABS: AUTOMATED NEUTROPHIL # 3.4 TH/MM3 (1.8-7.7); BASOPHIL # 0.1 TH/MM3 (0-0.2); BASOPHIL % 1.2 % (0.0-2.0); EOSINOPHIL # 0.6 TH/MM3 (0-0.4); EOSINOPHIL % 7.8 % (0.0-4.0); HEMATOCRIT 25.2 % (35.0-46.0); HEMO FLAGS DIFF FINAL; HEMOGLOBIN 8.6 GM/DL (11.6-15.3); LYMPH % 38.1 % (9.0-44.0); LYMPHOCYTE # 2.9 TH/MM3 (1.0-4.8); MEAN CELL VOLUME 88.4 FL (80.0-100.0); MEAN CORPUSCULAR HEMOGLOBIN 30.2 PG (27.0-34.0); MEAN CORPUSCULAR HGB CONC 34.2 % (32.0-36.0); MEAN PLATELET VOLUME 7.1 FL (7.0-11.0); MONO % 8.8 % (0.0-8.0); MONOCYTE # 0.7 TH/MM3 (0-0.9); NEUT % 44.1 % (16.0-70.0); PLATELET COUNT 391 TH/MM3 (150-450); RED BLOOD COUNT 2.85 MIL/MM3 (4.00-5.30); RED CELL DISTRIBUTION WIDTH 13.5 % (11.6-17.2); WHITE BLOOD COUNT 7.7 TH/MM3 (4.0-11.0)
[2018-04-06 05:48] LABS: ANION GAP 11 MEQ/L (5-15); BICARBONATE 20.5 MEQ/L (21.0-32.0); BLOOD UREA NITROGEN 34 MG/DL (7-18); CALCIUM 9.2 MG/DL (8.5-10.1); CHLORIDE 112 MEQ/L (98-107); CREATININE 1.68 MG/DL (0.50-1.00); GLOMERULAR FILTRATION RATE 37 ML/MIN (>89); GLUCOSE,RANDOM 117 MG/DL (74-106); POTASSIUM 4.4 MEQ/L (3.5-5.1); SODIUM (NA) 143 MEQ/L (136-145)
[2018-04-06 06:03] LABS: CREATINE KINASE 31 U/L (26-192)
[2018-04-06] MEDS: SODIUM CHLOR 0.9% 250 ML INJ 250 ML IV (07:43)
[2018-04-06] MEDS: FERROUS SULFATE 325 MG (65 MG ELEMENTAL IRON) TAB PO ×2 (07:43→20:11)
[2018-04-06] MEDS: SODIUM CHLORIDE 0.9% FLUSH 10 ML FLUSH IV FLUSH ×2 (07:43→20:13)
[2018-04-06] MEDS: ASPIRIN EC 325 MG TABEC PO (07:43)
[2018-04-06] MEDS: DOCUSATE SODIUM 50 MG/SENNA 8.6 MG TAB PO ×2 (07:44→20:13)
[2018-04-06] MEDS: GEMFIBROZIL 600 MG TAB PO (07:44)
[2018-04-06] MEDS: GABAPENTIN 400 MG CAP PO ×2 (07:44→20:12)
[2018-04-06] MEDS: PRAVASTATIN SOD 10 MG TAB PO (07:44)
[2018-04-06] MEDS: CARVEDILOL 12.5 MG TAB PO ×2 (07:47→20:12)
[2018-04-06] MEDS: PANTOPRAZOLE SOD 40 MG DELAYED RELEASE TAB PO (07:47)
[2018-04-06] MEDS: COLLAGENASE OINT 30 GM TUBE TOPICAL (07:48)
[2018-04-06] MEDS: INSULIN ASPART SUPPLEMENTAL SCALE SQ ×4 (07:49→20:11)
[2018-04-06 10:11] LABS: RBC COMMENT 1 1
[2018-04-06] MEDS: HEPARIN-NS/PF FLUSH BAG 1,000 ML IV FLUSH (10:17)
[2018-04-06] MEDS: MIDAZOLAM HCL 2 MG/2 ML VIAL ×3 (10:40→12:01)
[2018-04-06] MEDS: HEPARIN SODIUM - IV 10,000 UNITS/10 ML VIAL (10:50)
[2018-04-06] MEDS: ADENOSINE IV SOLN 3 MG/ML 2 ML VIAL (10:53)
[2018-04-06] MEDS: hydrALAZINE HCL 20 MG/ML VIAL (12:02)
[2018-04-06] MEDS ORDERED: IOHEXOL 350 MG/ML 100 ML BTL (for Cath Lab) OTHER (12:38)
[2018-04-06] MEDS ORDERED: IOHEXOL 350 MG/ML 50 ML BTL (for Cath Lab) OTHER (12:38)
[2018-04-06] MEDS: DAPTOmycin INJ 500 MG in SODIUM CHLORIDE 0.9% INJ 100 ML IV (19:55)
[2018-04-06] MEDS: ARTIFICIAL TEARS OPTH SOLN 15 ML BTL EACH EYE (19:55)
[2018-04-07] MEDS: ACETAMINOPHEN/HYDROcodone 325 MG/10 MG TAB PO ×5 (00:30→17:48)
[2018-04-07] MEDS: MORPHINE SULFATE 4 MG/ML INJ IV ×4 (02:56→21:38)
[2018-04-07 06:23] LABS: AUTOMATED NEUTROPHIL # 3.9 TH/MM3 (1.8-7.7); BASOPHIL # 0.1 TH/MM3 (0-0.2); EOSINOPHIL # 0.5 TH/MM3 (0-0.4); EOSINOPHIL % 6.2 % (0.0-4.0); HEMATOCRIT 27.2 % (35.0-46.0); HEMO FLAGS DIFF FINAL; HEMOGLOBIN 9.4 GM/DL (11.6-15.3); LYMPHOCYTE # 3.3 TH/MM3 (1.0-4.8); MEAN CELL VOLUME 86.7 FL (80.0-100.0); MEAN CORPUSCULAR HEMOGLOBIN 29.9 PG (27.0-34.0); MEAN CORPUSCULAR HGB CONC 34.5 % (32.0-36.0); MONOCYTE # 0.7 TH/MM3 (0-0.9); NEUT % 45.8 % (16.0-70.0); PLATELET COUNT 337 TH/MM3 (150-450); RED BLOOD COUNT 3.13 MIL/MM3 (4.00-5.30); RED CELL DISTRIBUTION WIDTH 14.6 % (11.6-17.2); WHITE BLOOD COUNT 8.5 TH/MM3 (4.0-11.0)
[2018-04-07 06:56] LABS: ANION GAP 10 MEQ/L (5-15); CALCIUM 8.6 MG/DL (8.5-10.1); CHLORIDE 113 MEQ/L (98-107); CREATININE 1.34 MG/DL (0.50-1.00); GLOMERULAR FILTRATION RATE 48 ML/MIN (>89); GLUCOSE,RANDOM 97 MG/DL (74-106); POTASSIUM 3.9 MEQ/L (3.5-5.1); SODIUM (NA) 143 MEQ/L (136-145)
[2018-04-07 07:04] LABS: BLOOD UREA NITROGEN 26 MG/DL (7-18)
[2018-04-07] MEDS: INSULIN ASPART SUPPLEMENTAL SCALE SQ ×5 (08:00→21:00)
[2018-04-07] MEDS: PANTOPRAZOLE SOD 40 MG DELAYED RELEASE TAB PO (09:22)
[2018-04-07] MEDS: GEMFIBROZIL 600 MG TAB PO (09:23)
[2018-04-07] MEDS: CARVEDILOL 12.5 MG TAB PO ×2 (09:23→21:46)
[2018-04-07] MEDS: FERROUS SULFATE 325 MG (65 MG ELEMENTAL IRON) TAB PO ×2 (09:24→21:46)
[2018-04-07] MEDS: ARTIFICIAL TEARS OPTH SOLN 15 ML BTL EACH EYE (09:24)
[2018-04-07] MEDS: ASPIRIN EC 325 MG TABEC PO (09:24)
[2018-04-07] MEDS: PRAVASTATIN SOD 10 MG TAB PO (09:24)
[2018-04-07] MEDS: DOCUSATE SODIUM 50 MG/SENNA 8.6 MG TAB PO ×2 (09:24→21:00)
[2018-04-07] MEDS: GABAPENTIN 400 MG CAP PO ×2 (09:24→21:45)
[2018-04-07] MEDS: SODIUM CHLORIDE 0.9% FLUSH 10 ML FLUSH IV FLUSH ×2 (09:28→21:39)
[2018-04-07] MEDS: hydrALAZINE HCL 10 MG TAB PO (13:52)
[2018-04-07] MEDS: HEPARIN SODIUM - SQ 10,000 UNITS/ML VIAL SQ ×2 (13:53→21:42)
[2018-04-07] MEDS: COLLAGENASE OINT 30 GM TUBE TOPICAL (15:54)
[2018-04-07] MEDS: DAPTOmycin INJ 500 MG in SODIUM CHLORIDE 0.9% INJ 100 ML IV (17:48)
[2018-04-08] MEDS: ACETAMINOPHEN/HYDROcodone 325 MG/10 MG TAB PO ×5 (00:20→20:46)
[2018-04-08] MEDS: MORPHINE SULFATE 4 MG/ML INJ IV ×6 (03:54→23:34)
[2018-04-08] MEDS: hydrALAZINE HCL 10 MG TAB PO (04:50)
[2018-04-08] MEDS: HEPARIN SODIUM - SQ 10,000 UNITS/ML VIAL SQ ×3 (06:59→20:47)
[2018-04-08] MEDS: INSULIN ASPART SUPPLEMENTAL SCALE SQ ×4 (07:32→20:47)
[2018-04-08] MEDS: FERROUS SULFATE 325 MG (65 MG ELEMENTAL IRON) TAB PO ×2 (07:34→20:46)
[2018-04-08] MEDS: DOCUSATE SODIUM 50 MG/SENNA 8.6 MG TAB PO ×2 (07:34→20:46)
[2018-04-08 07:35] LABS: AUTOMATED NEUTROPHIL # 4.4 TH/MM3 (1.8-7.7); BASOPHIL # 0.1 TH/MM3 (0-0.2); EOSINOPHIL # 0.6 TH/MM3 (0-0.4); EOSINOPHIL % 6.3 % (0.0-4.0); HEMATOCRIT 26.9 % (35.0-46.0); HEMO FLAGS DIFF FINAL; HEMOGLOBIN 9.3 GM/DL (11.6-15.3); LYMPH % 34.3 % (9.0-44.0); MEAN CELL VOLUME 86.4 FL (80.0-100.0); MEAN CORPUSCULAR HGB CONC 34.7 % (32.0-36.0); MEAN PLATELET VOLUME 7.5 FL (7.0-11.0); MONOCYTE # 0.7 TH/MM3 (0-0.9); NEUT % 50.4 % (16.0-70.0); PLATELET COUNT 337 TH/MM3 (150-450); RED BLOOD COUNT 3.11 MIL/MM3 (4.00-5.30); RED CELL DISTRIBUTION WIDTH 14.2 % (11.6-17.2); WHITE BLOOD COUNT 8.7 TH/MM3 (4.0-11.0)
[2018-04-08] MEDS: PRAVASTATIN SOD 10 MG TAB PO (07:35)
[2018-04-08] MEDS: GABAPENTIN 400 MG CAP PO ×2 (07:35→20:46)
[2018-04-08] MEDS: GEMFIBROZIL 600 MG TAB PO (07:35)
[2018-04-08] MEDS: CARVEDILOL 12.5 MG TAB PO ×2 (07:35→20:46)
[2018-04-08] MEDS: ASPIRIN EC 325 MG TABEC PO (07:35)
[2018-04-08] MEDS: PANTOPRAZOLE SOD 40 MG DELAYED RELEASE TAB PO (07:35)
[2018-04-08] MEDS: SODIUM CHLORIDE 0.9% FLUSH 10 ML FLUSH IV FLUSH ×2 (07:40→20:47)
[2018-04-08 07:55] LABS: ANION GAP 11 MEQ/L (5-15); BICARBONATE 17.9 MEQ/L (21.0-32.0); BLOOD UREA NITROGEN 26 MG/DL (7-18); CALCIUM 8.9 MG/DL (8.5-10.1); CHLORIDE 113 MEQ/L (98-107); CREATININE 1.55 MG/DL (0.50-1.00); GLOMERULAR FILTRATION RATE 41 ML/MIN (>89); GLUCOSE,RANDOM 109 MG/DL (74-106); POTASSIUM 3.8 MEQ/L (3.5-5.1); SODIUM (NA) 142 MEQ/L (136-145)
[2018-04-08] MEDS: COLLAGENASE OINT 30 GM TUBE TOPICAL (11:41)
[2018-04-08] MEDS: LISINOPRIL 10 MG TAB PO (12:24)
[2018-04-08] MEDS: DAPTOmycin INJ 500 MG in SODIUM CHLORIDE 0.9% INJ 100 ML IV (17:28)
[2018-04-08 23:52] LABS: MRSA PCR NEGATIVE (NEGATIVE); STAPH AUREUS PCR NEGATIVE (NEGATIVE)
[2018-04-09] MEDS: ACETAMINOPHEN/HYDROcodone 325 MG/10 MG TAB PO ×4 (00:51→17:07)
[2018-04-09] MEDS: HEPARIN SODIUM - SQ 10,000 UNITS/ML VIAL SQ ×2 (05:02→12:28)
[2018-04-09] MEDS: MORPHINE SULFATE 4 MG/ML INJ IV ×4 (05:05→15:55)
[2018-04-09] MEDS: INSULIN ASPART SUPPLEMENTAL SCALE SQ ×3 (07:40→17:06)
[2018-04-09] MEDS: SODIUM CHLORIDE 0.9% FLUSH 10 ML FLUSH IV FLUSH (08:42)
[2018-04-09] MEDS: CARVEDILOL 12.5 MG TAB PO (08:44)
[2018-04-09] MEDS: PANTOPRAZOLE SOD 40 MG DELAYED RELEASE TAB PO (08:44)
[2018-04-09] MEDS: ASPIRIN EC 325 MG TABEC PO (08:44)
[2018-04-09] MEDS: GABAPENTIN 400 MG CAP PO (08:44)
[2018-04-09] MEDS: LISINOPRIL 10 MG TAB PO ×2 (08:44→11:50)
[2018-04-09] MEDS: PRAVASTATIN SOD 10 MG TAB PO (08:44)
[2018-04-09] MEDS: DOCUSATE SODIUM 50 MG/SENNA 8.6 MG TAB PO (08:45)
[2018-04-09] MEDS: GEMFIBROZIL 600 MG TAB PO (08:45)
[2018-04-09] MEDS: FERROUS SULFATE 325 MG (65 MG ELEMENTAL IRON) TAB PO (08:45)
[2018-04-09] MEDS: COLLAGENASE OINT 30 GM TUBE TOPICAL (08:46)
[2018-04-09] MEDS ORDERED: ADULT - PICC FLUSH PRN FOR HEPARIN ALLERGY OR HIT DIAGNOSIS IV FLUSH ×2 (12:30)
[2018-04-09] MEDS: DAPTOmycin INJ 500 MG in SODIUM CHLORIDE 0.9% INJ 100 ML IV (17:33)
[2018-04-10] MEDS ORDERED: LISINOPRIL 20 MG TAB PO (09:00)
== END 2018-04-09 18:47 | disposition home health service (06) | DRG 253 ==
LOC: HCIS 04-06 12:02 → N05A 04-04 13:11 → HCIS 04-06 17:13 → NEPC 16:38 → NEDA 20:39 → NEPFCDU 22:17
PROC: 047M3ZZ Dilation of Right Popliteal Artery, Percutaneous Approach (ICD-10-PCS; principal; 2018-04-06 10:05)
PROC: B41FYZZ Fluoroscopy of Right Lower Extremity Arteries using Other Contrast (ICD-10-PCS; 2018-04-06 10:05)
PROC: 30233N1 Transfusion of Nonautologous Red Blood Cells into Peripheral Vein, Percutaneous Approach (ICD-10-PCS; 2018-04-06 10:05)
PROC: 05HY33Z Insertion of Infusion Device into Upper Vein, Percutaneous Approach (ICD-10-PCS; 2018-04-06 10:05)
DX: E11.51 Type 2 diabetes mellitus with diabetic peripheral angiopathy without gangrene (principal); I13.0 Hypertensive heart and chronic kidney disease with heart failure and stage 1 through stage 4 chronic kidney disease, or unspecified chronic kidney disease; E11.22 Type 2 diabetes mellitus with diabetic chronic kidney disease; L97.419 Non-pressure chronic ulcer of right heel and midfoot with unspecified severity; K31.84 Gastroparesis; I50.9 Heart failure, unspecified; E11.42 Type 2 diabetes mellitus with diabetic polyneuropathy; M86.8X7 Other osteomyelitis, ankle and foot; Q21.1 Atrial septal defect; B37.49 Other urogenital candidiasis; E11.69 Type 2 diabetes mellitus with other specified complication; E11.621 Type 2 diabetes mellitus with foot ulcer; L97.519 Non-pressure chronic ulcer of other part of right foot with unspecified severity; L03.031 Cellulitis of right toe; E11.43 Type 2 diabetes mellitus with diabetic autonomic (poly)neuropathy; E87.5 Hyperkalemia; N18.3 Chronic kidney disease, stage 3 (moderate); I25.10 Atherosclerotic heart disease of native coronary artery without angina pectoris; E78.5 Hyperlipidemia, unspecified; D63.1 Anemia in chronic kidney disease; Z79.4 Long term (current) use of insulin; Z82.49 Family history of ischemic heart disease and other diseases of the circulatory system; Z83.3 Family history of diabetes mellitus
CPT/HCPCS: 36430; 36569; 37224; 71045; 73660; 73720; 75710; 76937; 80048; 80053; 80202; 81001; 82550; 82948; 83605; 84132; 85025; 85652; 86850; 86900; 86901; 86920; 87040; 87070; 87081; 87086; 87106; 87640; 87641; 93005; 93922; 94150; 96365; 96366; 96375; 97161-GP; 99285-25

== ENCOUNTER → 2018-05-11 | Day surgery (SDC) | payer MEDICARE ==
[~2018-05-11] MED LIST changes: +ACETAMINOPHEN/HYDROcodone 325 MG/10 MG TAB ONE; +ACETAMINOPHEN/HYDROcodone 325 MG/10 MG TAB PO ONE; -AMLO10TA2 PO; -CEPH-460 PO; +CHLORHEXIDINE GLUCONATE 2 % 1 PACK (2 CLOTHS) TOPICAL PRN; +DAPT500P IV; +DEXAMETHASONE SOD PHOS 4 MG/ML VIAL IV ONE; +DO NOT ADM ANY ANTICOAGULANT DRUGS PRN; +FERR325T18 PO; -FERR325T20 PO; -GABA100C4 PO; +GABA400C5 PO; +HEPARIN SODIUM - IV 10,000 UNITS/10 ML VIAL ONE; +HEPARIN-NS/PF INJ 500 ML ONE; +HYDR-3366 PO; -HYDR-3583 PO; -HYDR25TA5 PO; +INSULIN HUMAN REGULAR 1,000 UNITS/10 ML VIAL SQ PRN; +IOHEXOL 300 INJ 50 ML IV ONE; +IOHEXOL 300 MG/ML 50 ML BTL (for RAD DIAG) IVCONTRAST ONE; +IPRASOL INH; -IPRASOL NEB; +LACTATED RINGER'S 1000 ML IV PRN; +LIDOCAINE HCL 1% PF 5 ML SYRINGE OTHER ONE; +LISI10TA3 PO; +METOPROLOL TARTRATE 25 MG TAB PO PRN; +MIDAZOLAM HCL 2 MG/2 ML VIAL ONE; -NEBULIZER1 MI1; +ONDANSETRON HCL 4 MG/2 ML VIAL IV ONE; +PHENYLEPH/NS 1000 MCG/10 ML SYR IV ONE; +PICC Daily Heparin 100 unit/mL Lock Flush IV FLUSH SCH; -POTA20TA5 PO; +POVIDONE IODINE 5% (ANTISEPSIS KIT) 4 APPLICATIONS EACH NARE PRN; +PROPOFOL 200 MG/20 ML AMP IV ONE; +PROTAMINE SULFATE 50 MG/5 ML VIAL ONE; +SODIUM CHLORID 0.9% 500 ML IV PRN; +SODIUM CHLORIDE 0.9% FLUSH 10 ML FLUSH IV FLUSH PRN; +ePHEDrine/NS 25 MG/5 ML SYRINGE IV ONE
--- NOTE | 2018-05-11 10:03 | RADRPT ---
EXAM DATE: 05/11/2018 9:55 AM EDT AGE/SEX: 67 years / Female INDICATIONS: Evaluate for pneumonia, pneumothorax, or any communicable disease. Pre op angiogram. CLINICAL DATA: This is the patient's initial encounter. Patient reports that signs and symptoms have been present for 1 day and indicates a pain score of 0/10. MEDICAL/SURGICAL HISTORY: None. None. COMPARISON: [facility] [place] S[place], 04/03/2018. . FINDINGS: A right-sided PICC line has its tip at the junction of the right subclavian vein and the superior conor a cava. The heart is normal. The pulmonary vascular pattern is normal. The lungs are clear. Degenerat shilo changes are noted throughout the thoracic spine. CONCLUSION: 1. Right-sided PICC line has its tip at the junction of the right subclavian vein and superior vena cava. 2. No focal infiltrate or pulmonary vascular congestion. Electronically signed by: Daniel Portillo MD 05/11/2018 10:02 AM EDT
--- NOTE | 2018-05-11 10:17 | PD.VS.PN ---
Pre-operative Note Pre-operative diagnosis: PAD, R LE Planned procedure: Aortogram w/ R LE angiogram, possible endovascular intervention Interval History: Pt has been feeling well, no problems. No change in medical history that would preclude OR. Labs: Hct 31 plt 493 INR 1.0 creatinine 1.8 Blood: none needed Imaging: Last Impressions Chest X-Ray 05/11/18 0932 Signed Impressions: CONCLUSION: 1. Right-sided PICC line has its tip at the junction of the right subclavian v ein and superior vena cava. 2. No focal infiltrate or pulmonary vascular congestion. Orders: NPO Post-operative destination: PACU Operative site marked: Yes Consent: Informed consent has been obtained from Billie Cohen. I have explained the procedure in detail and discussed the risks, benefits, and potential complications. All questions have been answered. Patient contact information: [phone] Daniel Mauricio MD May 11, 2018 10:17
--- NOTE | 2018-05-11 11:49 | HHI.PR ---
cc: Daniel Mauricio MD Immediate Post Op Note Procedure Date: May 11, 2018 Pre Op Diagnosis: R LE tissue loss, PAD Post Op Diagnosis: R LE tissue loss, PAD Surgeon: Daniel Mauricio Culinary Director(s): none Procedure: Aortogram w/ R LE angiogram L WEB OPERATIONS SPECIALIST Angioseal Findings: occluded distal SFA, popliteal artery AT reconstitution Occluded PT/peroneal Additional Information: Pt will need R WEB OPERATIONS SPECIALIST-AT bypass Complications: none Specimen(s) removed: none Estimated blood loss: 10mL Anesthesia: LMA Drains: None Patient to: PACU Patient Condition: Good Date/Time of Procedure: SEE SURGICAL CARE RECORD Daniel Mauricio MD May 11, 2018 11:49
--- NOTE | 2018-05-11 12:38 | MP ---
cc: Daniel Mauricio MD DATE OF OPERATION: 05/11/2018 PREOPERATIVE DIAGNOSIS: Right lower extremity tissue loss, peripheral vascular disease. POSTOPERATIVE DIAGNOSIS: Right lower extremity tissue loss, peripheral vascular disease. PROCEDURE PERFORMED: 1. Aortogram with right lower extremity angiogram. 2. Left common femoral Angio-Seal. ATTENDING SURGEON: Daniel Mauricio MD ANESTHESIA: General. INDICATIONS FOR PROCEDURE: Mrs. Cohen is an elderly female with right lower extremity tissue loss. She is taken to the operating room for angiographic evaluation and treatment. There is no prior catheterization imaging available for my view and is taken to the operating room since the worsening of her tissue loss. DESCRIPTION OF PROCEDURE: Informed consent was obtained from the patient. She was taken to the operating room and placed supine on the operating table. An appropriate timeout was taken to ensure the patients identity, the operative site and planned procedure. The administration of antibiotics was not necessary since this was a clean procedure without planned implantation of any foreign object. Everyone in the room agreed with timeout and we proceeded. Her bilateral groins were prepped and draped and the left groin was accessed with a 21-gauge micropuncture needle. This was exchanged using Seldinger technique for the micropuncture sheath through which a 0.035 Glidewire was introduced. The micropuncture sheath was exchanged for a 5-Greenlandic sheath and a VCF catheter was placed over the wire and through the sheath and aortogram and pelvic arteriogram was obtained. The Glidewire was reintroduced and navigated down to the left common femoral artery and the VCF catheter was advanced over this and a right lower extremity arteriogram was obtained. The patient was systemically heparinized with 5000 units of IV heparin. A 0.035 Chin wire was introduced down to the SFA and the VCF catheter and 5-Greenlandic sheath removed and a 6-Greenlandic 55 cm Dean sheath was introduced and then a CXI catheter was advanced over the Chin and the Chin was exchanged for a WET CLEANER MACHINE wire. Using the WET CLEANER MACHINE and CXI, we were able to navigate into the occluded popliteal artery and multiple attempts were made to recanalize the popliteal artery into the anterior tibial artery, but these were unsuccessful. The wire, catheter and sheath removed and the groin was closed with an Angio-Seal. There were no complications. I was present and scrubbed for the entire procedure. INTERPRETATION OF IMAGES: The patient has a patent infrarenal aorta, common iliac arteries and external arteries bilaterally with no hemodynamically significant stenoses. The right common femoral and profunda are patent. The SFA is diminutive proximally and then occludes at the adductor canal. The popliteal artery was completely occluded. Profunda based collaterals give rise to the anterior tibial artery, which continues on down to the distal calf into the ankle. The posterior tibial and peroneal artery are occluded. MD AYSHA Estrella/EMY , 12:03 PM , 12:36 PM
[2018-05-11 13:53] VITALS: BP 168/74; PULSE 67; RESP 18; TEMP 98.7; O2SAT 98
--- NOTE | 2018-05-11 18:23 | EKG ---
Date Performed: 05/11/2018 Time Performed: 09:36:59 PTAGE: 67 years EKG: Sinus rhythm NORMAL ECG PREVIOUS TRACING : 04/03/2018 19.59 Since the previous tracing, no significant change noted DOCTOR: Jo Mota Interpretating Date/Time 05/11/2018 18:22:16
== END | disposition home or self-care (01) ==
LOC: HCVO 09:08
PROVIDERS: ATTEND Surgery
DX: I73.9 Peripheral vascular disease, unspecified (principal); E10.9 Type 1 diabetes mellitus without complications; Z79.4 Long term (current) use of insulin; Z79.899 Other long term (current) drug therapy; Z01.810 Encounter for preprocedural cardiovascular examination
CPT/HCPCS: 01916; 36246; 71045; 75710; 82948; 93005; C1769; J1100; J1644; J2250; J2370; J2405; J2720; J3010; J7120; Q9967

== ENCOUNTER 2018-05-24 06:09 | Inpatient (IN) | END 2018-05-27 12:44 | LOC: HCPC 06:09 | PROVIDERS: ADMIT Surgery; ATTEND Surgery ==

== ENCOUNTER 2018-09-24 10:54 | Inpatient (IN) ==
--- NOTE | 2018-09-24 11:40 | ED ---
HPI General Chief complaint: Weakness Stated complaint: general weakness Time Seen by Provider: 09/24/18 11:01 Source: patient and family Mode of arrival: EMS Limitations: no limitations History of Present Illness HPI Narrative: The patient is a 68-year-old female who presents to the emergency department via EMS for generalized weakness. The patient notes a 2-day history of dizziness, worse with standing upright, described as lightheadedness and the room spinning. The patient also complains of generalized lethargy and decreased ability to ambulate. Family notes that the patient has been unable to walk for the last 2 days. The patient also complains of increasing pain to the lower extremities and feet bilaterally secondary to her chronic neuropathy for which she takes gabapentin. She also has mild dysuria but denies any frequency or urgency. The patient denies any headache, chest pain, shortness of breath, nausea, vomiting, abdominal pain, or diarrhea. The patient's primary physician is Dr. Vega. Complaint: Reports generalized weakness Onset (ago): day(s) Duration: constant and progressively worsening Location: Reports generalized Migration: Reports none Severity scale (1-10): 7 Relieving factors: none Exacerbating factors: none Associated symptoms: Reports dysuria Related Data Home Medications Medication Instructions Recorded Confirmed aspirin 325 mg PO DAILY 05/27/18 09/24/18 ferrous sulfate [Iron (ferrous 325 mg PO DAILY 05/27/18 09/24/18 sulfate)] gabapentin 600 mg PO TID 05/27/18 09/24/18 hydrocodone-acetaminophen [[place]] 1 tab PO Q4H PRN 05/27/18 09/24/18 insulin asp prt-insulin aspart 1 sliding scale dose SUB-Q UD 05/27/18 09/24/18 [Novolog Mix 70-30 U-100 Insuln] ipratropium-albuterol 3 ml INHALATION Q6HR PRN 05/27/18 09/24/18 multivitamin with folic acid 1 tab PO DAILY 05/27/18 09/24/18 [Thera] pantoprazole 40 mg PO DAILY 05/27/18 09/24/18 pravastatin 10 mg PO DAILY 05/27/18 09/24/18 sennosides-docusate sodium [Senna 1 tab PO BID 05/27/18 09/24/18 Plus] atorvastatin 40 mg PO DAILY 09/24/18 09/24/18 Allergies Allergy/AdvReac Type Severity Reaction Status Date / Time clonidine AdvReac Severe Chest Pain Verified 05/24/18 07:24 metformin AdvReac Severe Numbness Verified 05/24/18 07:24 Review of Systems ROS: all other systems reviewed are negative [facility] Medical History Medical History 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 (Acute) Anemia (Acute) CHF (congestive heart failure) (Acute) CRI (chronic renal insufficiency) (Acute) Cyst of right kidney (Acute) Diabetes (Acute) Foramen ovale (Acute) Gastroparesis (Acute) HTN (hypertension) (Acute) Neuropathy (Acute) PAD (peripheral artery disease) (Acute) TIA (transient ischemic attack) (Acute) Weakness (Acute) Social History Social History Substance History: No History of Abuse Second Hand Smoke Exposure: No Smoking Status: Never smoker How Often Do You Have a Drink Containing Alcohol: Never Recent Travel in [facility] within the Last 8 Weeks: No Recent Out of Country Travel within the Last 8 Weeks: No Immunization History Tetanus Immunization: <5 Years Exam Narrative Exam Narrative: GENERAL: Awake, alert, pleasant 68-year-old female who appears her stated age and is in no acute respiratory distress. SKIN: Focused skin assessment warm/dry. HEAD: Atraumatic. Normocephalic. EYES: Pupils equal and round. 3 mm bilateral and reactive. EOMs are intact. ENT: No nasal bleeding or discharge. Slightly dry mucous membranes. NECK: Trachea midline. No JVD. CARDIOVASCULAR: Regular rate and rhythm. No murmur appreciated. Heart rate in the 90s. RESPIRATORY: No accessory muscle use. Clear to auscultation. Breath sounds equal bilaterally. GASTROINTESTINAL: Abdomen soft, non-tender, nondistended. No guarding or rigidity. MUSCULOSKELETAL: No obvious deformities. No clubbing. No cyanosis. No edema. NEUROLOGICAL: Awake and alert. No obvious cranial nerve deficits. Motor grossly within normal limits. Normal speech. PSYCHIATRIC: Appropriate mood and affect; insight and judgment normal. Course Initial Documented Vital Signs Temperature 99.4 F 09/24/18 10:58 Pulse Rate 97 H 09/24/18 10:58 Respiratory Rate 15 09/24/18 10:58 Blood Pressure 125/93 H 09/24/18 10:58 Pulse Oximetry 100 09/24/18 10:58 Last Documented Vital Signs Temperature 99.4 F 09/24/18 10:58 Pulse Rate 97 H 09/24/18 10:58 Respiratory Rate 15 09/24/18 10:58 Blood Pressure 125/93 H 09/24/18 10:58 Pulse Oximetry 100 09/24/18 10:58 Medical Decision Making MDM Narrative Medical decision making narrative: IV was established, labs are drawn and sent, and the patient was placed on cardiac telemetry monitoring and continuous pulse oximetry monitoring. EKG was ordered and interpreted. Chest x-ray is obtained. CT of the brain was obtained. CT of the brain is negative. However , the patient's creatinine was elevated at 2.64 with an elevated potassium of 5.5, therefore, the patient was administered a second bolus of IV fluids. The patient has acute kidney injury wing compared to previous creatinines on EMR. The patient's bicarb was also noted to be 9.4, therefore, lactic acid was sent to lab. Lactic acid was normal, anion gap is normal, decreased bicarbonate might be from acute renal injury and underlying UTI. The patient was administer Rocephin for her UTI. The patient will be admitted to the medical service, the residents were paged as the patient's primary physician is Dr. Vega. Medical Screen Exam Complete: Yes Emergency Medical Condition: Yes Differential Diagnosis Differential Diagnosis: Differential diagnosis includes dehydration, orthostatic hypotension, acute kidney injury, CVA, intracranial hemorrhage, hyponatremia, UTI, pneumonia, deconditioning. Lab Data Lab results reviewed: Yes I reviewed the patient's lab results. Result diagrams: 09/24/18 11:25 09/24/18 11:25 Lab Results 09/24/18 09/24/18 09/24/18 Range/Units 11:25 11:25 11:25 WBC 10.1 (4.0-11.0) th/mm3 RBC 3.74 L (4.00-5.30) mil/mm3 Hgb 11.6 (11.6-15.3) gm/dL Hct 36.5 (35.0-46.0) % MCV 97.6 (80.0-100.0) fL MCH 31.1 (27.0-34.0) pg MCHC 31.8 L (32.0-36.0) % RDW 17.8 H (11.6-17.2) % Plt Count 447 (150-450) th/mm3 MPV 6.4 L (7.0-11.0) fL Neut % (Auto) 50.0 (16.0-70.0) % Lymph % (Auto) 40.4 (9.0-44.0) % [place] % (Auto) 6.8 (0.0-8.0) % Eos % (Auto) 1.7 (0.0-4.0) % Baso % (Auto) 1.1 (0.0-2.0) % Neut # (Auto) 5.1 (1.8-7.7) th/mm3 Lymph # (Auto) 4.1 (1.0-4.8) th/mm3 [place] # (Auto) 0.7 (0.0-0.9) th/mm3 Eos # (Auto) 0.2 (0.0-0.4) th/mm3 Baso # (Auto) 0.1 (0.0-0.2) th/mm3 WBC Differential . Differential Comment Auto diff final Sodium 141 (136-145) meq/L Potassium 5.5 H (3.5-5.1) meq/L Chloride 121 H (98-107) meq/L Carbon Dioxide 9.4 L (21.0-32.0) meq/L Anion Gap 11 (5-15) meq/L BUN 64 H (7-18) mg/dL Creatinine 2.64 H (0.50-1.00) mg/dL Estimated GFR 22 L (>89) mL/min Random Glucose 154 H (74-106) mg/dL Lactic Acid (0.4-2.0) mmol/L Calcium 9.5 (8.5-10.1) mg/dL Magnesium 2.6 H (1.5-2.5) mg/dL Total Bilirubin 0.1 L (0.2-1.0) mg/dL AST 10 L (15-37) U/L ALT 23 (10-53) U/L Alkaline Phosphatase 76 (45-117) U/L Total Creatine Kinase 44 (26-192) U/L Troponin I 0.06 H (0.02-0.05) ng/mL B-Natriuretic Peptide 31 (0-100) pg/mL Total Protein 8.2 (6.4-8.2) g/dL Albumin 3.3 L (3.4-5.0) g/dL TSH 0.869 (0.358-3.740) uIU/mL Urine Color (Yellw/Straw) Urine Clarity (Clear) Urine pH (5.0-8.5) Ur Specific [place] (1.002-1.035) Urine Protein (Neg-Trace) mg/dL Urine Glucose (UA) (Negative) mg/dL Urine Ketones (Negative) mg/dL Urine Occult Blood (Negative) Urine Nitrate (Negative) Urine Bilirubin (Negative) Urine Urobilinogen (Less than 2) mg/dL Ur Leukocyte Esterase (Negative) Urine RBC (0-3) /hpf Urine WBC (0-5) /hpf Urine WBC Clumps (None) Urine Bacteria (None) /hpf Micro UA Comment Ur Microscopic Review Urine Culture Comments 09/24/18 09/24/18 Range/Units 12:10 12:40 WBC (4.0-11.0) th/mm3 RBC (4.00-5.30) mil/mm3 Hgb (11.6-15.3) gm/dL Hct (35.0-46.0) % MCV (80.0-100.0) fL MCH (27.0-34.0) pg MCHC (32.0-36.0) % RDW (11.6-17.2) % Plt Count (150-450) th/mm3 MPV (7.0-11.0) fL Neut % (Auto) (16.0-70.0) % Lymph % (Auto) (9.0-44.0) % [place] % (Auto) (0.0-8.0) % Eos % (Auto) (0.0-4.0) % Baso % (Auto) (0.0-2.0) % Neut # (Auto) (1.8-7.7) th/mm3 Lymph # (Auto) (1.0-4.8) th/mm3 [place] # (Auto) (0.0-0.9) th/mm3 Eos # (Auto) (0.0-0.4) th/mm3 Baso # (Auto) (0.0-0.2) th/mm3 WBC Differential Differential Comment Sodium (136-145) meq/L Potassium (3.5-5.1) meq/L Chloride (98-107) meq/L Carbon Dioxide (21.0-32.0) meq/L Anion Gap (5-15) meq/L BUN (7-18) mg/dL Creatinine (0.50-1.00) mg/dL Estimated GFR (>89) mL/min Random Glucose (74-106) mg/dL Lactic Acid 0.6 (0.4-2.0) mmol/L Calcium (8.5-10.1) mg/dL Magnesium (1.5-2.5) mg/dL Total Bilirubin (0.2-1.0) mg/dL AST (15-37) U/L ALT (10-53) U/L Alkaline Phosphatase (45-117) U/L Total Creatine Kinase (26-192) U/L Troponin I (0.02-0.05) ng/mL B-Natriuretic Peptide (0-100) pg/mL Total Protein (6.4-8.2) g/dL Albumin (3.4-5.0) g/dL TSH (0.358-3.740) uIU/mL Urine Color Yellow (Yellw/Straw) Urine Clarity Cloudy H (Clear) Urine pH 5.0 (5.0-8.5) Ur Specific [place] 1.024 (1.002-1.035) Urine Protein 100 H (Neg-Trace) mg/dL Urine Glucose (UA) Negative (Negative) mg/dL Urine Ketones Negative (Negative) mg/dL Urine Occult Blood Large H (Negative) Urine Nitrate Negative (Negative) Urine Bilirubin Negative (Negative) Urine Urobilinogen Less than 2 (Less than 2) mg/dL Ur Leukocyte Esterase Large H (Negative) Urine RBC 53 H (0-3) /hpf Urine WBC (0-5) /hpf Urine WBC Clumps Many H (None) Urine Bacteria Occasional H (None) /hpf Micro UA Comment Culture indicated Ur Microscopic Review Not Reportable Urine Culture Comments Culture indicated Imaging Data Attestation: I personally reviewed and interpreted this imaging study as follows : My impression: Chest x-ray reveals no obvious infiltrates Radiologist's impression: Chest X-Ray 09/24/18 11:22 CONCLUSION: No acute cardiopulmonary abnormality is identified. Head CT 09/24/18 11:22 CONCLUSION: 1. Negative CT Head non contrast. . ECG Data EKG Prior to Arrival: No Attestation: I personally reviewed and interpreted this ECG as follows: Interpretation: EKG reveals sinus rhythm with a rate 89. Inverted T waves noted in lead III and aVF. Discharge Plan Discharge Disposition Patient Disposition: 30 Still Patient Discharge Condition Condition: Stable Discharge Details Diagnosis: Acute kidney injury, Dehydration, Acute hyperkalemia, Acute UTI Physicians Team ED Provider: Lars Franco Primary Care Provider: UNKNOWN, Attending Provider: Shun Haley Status ED Status: Admitted Observation Patient
[2018-09-24] MEDS ORDERED: Acetaminophen 325 MG Tablet PO ONE (11:52)
[2018-09-24 11:57] LABS: Baso # (Auto) 0.1 th/mm3 (0.0-0.2); Baso % (Auto) 1.1 % (0.0-2.0); Eos # (Auto) 0.2 th/mm3 (0.0-0.4); Eos % (Auto) 1.7 % (0.0-4.0); Hematocrit 36.5 % (35.0-46.0); Hemoglobin 11.6 gm/dL (11.6-15.3); Lymph # (Auto) 4.1 th/mm3 (1.0-4.8); Lymph % (Auto) 40.4 % (9.0-44.0); Mean Corpuscular HGB Conc 31.8 % (32.0-36.0); Mean Corpuscular Hemoglobin 31.1 pg (27.0-34.0); Mean Corpuscular Volume 97.6 fL (80.0-100.0); Mean Platelet Volume 6.4 fL (7.0-11.0); Mono # (Auto) 0.7 th/mm3 (0.0-0.9); Mono % (Auto) 6.8 % (0.0-8.0); Neut # (Auto) 5.1 th/mm3 (1.8-7.7); Platelet Count 447 th/mm3 (150-450); Red Blood Count 3.74 mil/mm3 (4.00-5.30); Red Cell Distribution Width 17.8 % (11.6-17.2); White Blood Count 10.1 th/mm3 (4.0-11.0)
[2018-09-24] MEDS ORDERED: Sodium Chlor 0.9% Inj 500 ML IV.SIG SCH ×2 (12:00→13:00)
--- NOTE | 2018-09-24 12:03 | XR ---
EXAM DATE: 09/24/2018 11:46 AM EDT AGE/SEX: 68 years / Female INDICATIONS: Chest pain and shortness of breath. CLINICAL DATA: This is the patient's initial encounter. Patient reports that signs and symptoms have been present for 1 day and indicates a pain score of 4/10. MEDICAL/SURGICAL HISTORY: None. None. COMPARISON: [facility] [place], CHEST SINGLE AP, 05/24/2018. . FINDINGS: Portable AP view of the chest demonstrates a normal-sized cardiac silhouette. No effusion, consolidat ion, or pneumothorax is identified. The bones and soft tissues demonstrate no acute finding. EKG line s overlie the patient and there is mild atelectasis at the lung bases. CONCLUSION: No acute cardiopulmonary abnormality is identified. Electronically signed by: Maycol Clark MD 09/24/2018 12:02 PM EDT
[2018-09-24 12:13] LABS: Alanine Aminotransferase 23 U/L (10-53); Albumin 3.3 g/dL (3.4-5.0); Anion Gap 11 meq/L (5-15); Aspartate Aminotransferase 10 U/L (15-37); Blood Urea Nitrogen 64 mg/dL (7-18); Calcium 9.5 mg/dL (8.5-10.1); Carbon Dioxide 9.4 meq/L (21.0-32.0); Chloride 121 meq/L (98-107); Glomerular Filtration Rate 22 mL/min (>89); Glucose,Random 154 mg/dL (74-106); Magnesium 2.6 mg/dL (1.5-2.5); Potassium 5.5 meq/L (3.5-5.1); Sodium 141 meq/L (136-145)
[2018-09-24 12:23] LABS: Alkaline Phosphatase 76 U/L (45-117); Thyroid Stimulating Hormone 0.869 uIU/mL (0.358-3.740); Total Protein 8.2 g/dL (6.4-8.2); Troponin I 0.06 ng/mL (0.02-0.05)
[2018-09-24 12:30] LABS: Creatine Kinase 44 U/L (26-192)
[2018-09-24 12:38] LABS: Bacteria,Urine Occasional /hpf; Bilirubin,Urine Negative (Negative); Clarity,Urine Cloudy (Clear); Color,Urine Yellow (Yellw/Straw); Glucose,Urine (UA) Negative (Negative); Leukocyte Esterase,Urine Large (Negative); Nitrite,Urine Negative (Negative); Specific Gravity,Urine 1.024 (1.002-1.035)
--- NOTE | 2018-09-24 13:40 | P.HPFP ---
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 (Acute) Anemia CHF (congestive heart failure) CRI (chronic renal insufficiency) Cyst of right kidney Diabetes Foramen ovale Gastroparesis HTN (hypertension) Neuropathy PAD (peripheral artery disease) TIA (transient ischemic attack) Weakness - Tobacco History Second Hand Smoke Exposure: No Smoking Status: Never smoker - Alcohol History How Often Do You Have a Drink Containing Alcohol: Never - Substance Use History Substance History: No History of Abuse - Travel History Recent Travel in the [place] Within the Last 8 Weeks: No Recent Travel Out of the Country Within the Last 8 Weeks: No - Immunization History Tetanus Immunization: <5 Years Medications and Allergies Active Medications: Active Medications Sodium Chloride (Ns Inj) 500 mls @ 0 mls/hr IV.SIG BOLUS LINDA Last Infusion: 09/24/18 12:47 Dose: Infused Sodium Chloride (Ns Inj) 500 mls @ 0 mls/hr IV.SIG BOLUS LINDA Last Admin: 09/24/18 12:48 Dose: 999 mls/hr Sodium Chloride (Ns Flush) 2 ml IV.FLUSH PRN PRN PRN Reason: FLUSH AFTER USING IV ACCESS Allergies Allergy/AdvReac Type Severity Reaction Status Date / Time clonidine AdvReac Severe Chest Pain Verified 05/24/18 07:24 metformin AdvReac Severe Numbness Verified 05/24/18 07:24 Home Medications Medication Instructions Recorded Confirmed Type aspirin 325 mg PO DAILY 05/27/18 09/24/18 History ferrous sulfate [Iron (ferrous 325 mg PO DAILY 05/27/18 09/24/18 History sulfate)] gabapentin 600 mg PO TID 05/27/18 09/24/18 History hydrocodone-acetaminophen [[place]] 1 tab PO Q4H PRN 05/27/18 09/24/18 History insulin asp prt-insulin aspart 1 sliding scale dose SUB-Q UD 05/27/18 09/24/18 History [Novolog Mix 70-30 U-100 Insuln] ipratropium-albuterol 3 ml INHALATION Q6HR PRN 05/27/18 09/24/18 History multivitamin with folic acid 1 tab PO DAILY 05/27/18 09/24/18 History [Thera] pantoprazole 40 mg PO DAILY 05/27/18 09/24/18 History pravastatin 10 mg PO DAILY 05/27/18 09/24/18 History sennosides-docusate sodium [Senna 1 tab PO BID 05/27/18 09/24/18 History Plus] atorvastatin 40 mg PO DAILY 09/24/18 09/24/18 History Exam Vital signs: Vital Signs 09/24/18 10:58 Temperature 99.4 F Pulse Rate 97 H Respiratory Rate 15 Blood Pressure 125/93 H Pulse Oximetry 100 Intake & Output 09/23/18 09/24/18 09/24/18 18:59 06:59 18:59 Intake Total 500 / 500 Balance 500 / 500 Weight 63.503 kg Intake: IV 500 / 500 NS Inj 500 ML @ Wide Open IV. 500 / 500 SIG BOLUS [facility] Rx#:[id number] Results - Labs Result diagrams: 09/24/18 11:25 09/24/18 11:25 Abnormal lab results 09/24/18 09/24/18 09/24/18 Range/Units 11:25 11:25 12:10 RBC 3.74 L (4.00-5.30) mil/mm3 MCHC 31.8 L (32.0-36.0) % RDW 17.8 H (11.6-17.2) % MPV 6.4 L (7.0-11.0) fL Potassium 5.5 H (3.5-5.1) meq/L Chloride 121 H (98-107) meq/L Carbon Dioxide 9.4 L (21.0-32.0) meq/L BUN 64 H (7-18) mg/dL Creatinine 2.64 H (0.50-1.00) mg/dL Estimated GFR 22 L (>89) mL/min Random Glucose 154 H (74-106) mg/dL Magnesium 2.6 H (1.5-2.5) mg/dL Total Bilirubin 0.1 L (0.2-1.0) mg/dL AST 10 L (15-37) U/L Troponin I 0.06 H (0.02-0.05) ng/mL Albumin 3.3 L (3.4-5.0) g/dL Urine Clarity Cloudy H (Clear) Urine Protein 100 H (Neg-Trace) mg/dL Urine Occult Blood Large H (Negative) Ur Leukocyte Esterase Large H (Negative) Urine RBC 53 H (0-3) /hpf Urine WBC Clumps Many H (None) Urine Bacteria Occasional H (None) /hpf Short CBC 09/24/18 Range/Units 11:25 WBC 10.1 (4.0-11.0) th/mm3 Hgb 11.6 (11.6-15.3) gm/dL Hct 36.5 (35.0-46.0) % Plt Count 447 (150-450) th/mm3 BMP 09/24/18 11:25 Sodium 141 Potassium 5.5 H Chloride 121 H Carbon Dioxide 9.4 L BUN 64 H Creatinine 2.64 H Calcium 9.5 Cardiac Enzymes 09/24/18 Range/Units 11:25 Total Creatine Kinase 44 (26-192) U/L Troponin I 0.06 H (0.02-0.05) ng/mL Liver Function 09/24/18 Range/Units 11:25 Total Bilirubin 0.1 L (0.2-1.0) mg/dL AST 10 L (15-37) U/L ALT 23 (10-53) U/L Alkaline Phosphatase 76 (45-117) U/L Albumin 3.3 L (3.4-5.0) g/dL Urine 09/24/18 Range/Units 12:10 Urine Color Yellow (Yellw/Straw) Urine Clarity Cloudy H (Clear) Urine pH 5.0 (5.0-8.5) Ur Specific [place] 1.024 (1.002-1.035) Urine Protein 100 H (Neg-Trace) mg/dL Urine Glucose (UA) Negative (Negative) mg/dL - Imaging Impressions Chest X-Ray 09/24/18 11:22 CONCLUSION: No acute cardiopulmonary abnormality is identified. Caprini VTE Risk Assessment Caprini Risk Assessment Model: Point Value = 1 Point Value = 2 Point Value = 3 Point Value = 5 Age 41-60 Minor surgery BMI > 25 kg/m2 Swollen legs Varicose veins or History of unexplained or recurrent spontaneous Oral contraceptives or hormone replacement Sepsis (< 1 month) Serious lung disease, including pneumonia (< 1 month) Abnormal pulmonary function Acute myocardial infarction Congestive heart failure (< 1 month) History of inflammatory bowel disease Medical patient at bed rest Age 61-74 Arthroscopic surgery Major open surgery (> 45 min) Laparoscopic surgery (> 45 min) Malignancy Confined to bed (> 72 hours) Immobilizing plaster cast Central venous access Age >= 75 History of VTE Family history of VTE Factor V Leiden Prothrombin [id number] Lupus anticoagulant Anticardiolipin antibodies Elevated serum homocysteine Heparin-induced thrombocytopenia Other congenital or acquired thrombophilia Stroke (< 1 month) Elective arthroplasty Hip, pelvis, or leg fracture Acute spinal cord injury (< 1 month) Prophylaxis Regimen: Total Risk Factor Score Risk Level Prophylaxis Regimen 0-1 Low Early ambulation 2 Moderate Order ONE of the following: *Sequential Compression Device (SCD) *Heparin 5000 units SQ BID 3-4 Higher Order ONE of the following medications: *Heparin 5000 units SQ TID *Enoxaparin/Lovenox 40 mg SQ daily (WT < 150 kg, CrCl > 30 mL/min) *Enoxaparin/Lovenox 30 mg SQ daily (WT < 150 kg, CrCl > 10-29 mL/min) *Enoxaparin/Lovenox 30 mg SQ BID (WT < 150 kg, CrCl > 30 mL/min) AND/OR *Sequential Compression Device (SCD) 5 or more Highest Order ONE of the following medications: *Heparin 5000 units SQ TID (Preferred with Epidurals) *Enoxaparin/Lovenox 40 mg SQ daily (WT < 150 kg, CrCl > 30 mL/min) *Enoxaparin/Lovenox 30 mg SQ daily (WT < 150 kg, CrCl > 10-29 mL/min) *Enoxaparin/Lovenox 30 mg SQ BID (WT < 150 kg, CrCl > 30 mL/min) AND *Sequential Compression Device (SCD)
--- NOTE | 2018-09-24 13:43 | CT ---
EXAM DATE: 09/24/2018 1:32 PM EDT AGE/SEX: 68 years / Female INDICATIONS: Weakness, Dizziness CLINICAL DATA: This is the patient's initial encounter. Patient reports that signs and symptoms have been present for 2 days and indicates a pain score of 0/10. MEDICAL/SURGICAL HISTORY: Diabetes. Transient ischemic attack. Neuropathy None. RADIATION DOSE: 56.35 CTDI (mGy) COMPARISON: No prior exams available for comparison. TECHNIQUE: CT of the head without contrast. Using automated exposure control and adjustment of the mA and/or kV according to patient size, radiation dose was kept as low as reasonably achievable to ob tain optimal diagnostic quality images. DICOM format image data is available electronically for revi ew and comparison. FINDINGS: Cerebrum: The ventricles are normal for age. No evidence of midline shift, mass lesion, hemorrhage or acute infarction. No extraaxial fluid collections are seen. Posterior Fossa: The cerebellum and brainstem are intact. The 4th ventricle is midline. The cerebe llopontine angle is unremarkable. Extracranial: The visualized portion of the orbits is intact. Skull: The calvaria is intact. No evidence of skull fracture. CONCLUSION: 1. Negative CT Head non contrast. . Electronically signed by: Amrit Gutierres MD 09/24/2018 1:42 PM EDT
--- NOTE | 2018-09-24 13:48 | P.HPFP ---
History of Present Illness Primary Care Physician: Kirit Vega MD, R3 <Shun Haley - 09/25/18 13:52> Dr. Kirit Vega <Deann Nunez - 09/24/18 15:43> Chief Complaint: Generalized weakness <Deann Nunez 09/24/18 15:14> History of Present Illness: 68-year-old female with history of diabetes and recurrent UTI presented to the ED for worsening generalized weakness for the past 2 days. She states that she is now unable to walk, because of this weakness. She sometimes experiences dizziness and lightheadedness when standing, but she has not had any recent falls. Denies headache, vertigo, loss of consciousness or head trauma. She states this weakness feels similar to the last time she was admitted to the hospital for bladder infection. She denies abdominal pain at this time, but admits to burning with urination and some increased urinary frequency. No notable blood in the urine. She does admit to occasional chills. No fever, nausea, vomiting, abdominal pain, back pain, chest pain, shortness of breath diarrhea or constipation. No sick contacts at home. She has had a history of multiple UTI in the past year and has been hospitalized at least once. She stated that she received IV antibiotics at that time and was discharged to an inpatient rehab facility. She also notes that she has a sacral ulcer from a prior hospital stay which is now well healing and taking care of by a home health nurse. Past medical hx: Healing sacral ulcer DM, diabetic neuropathy CKD PAD TIA Family hx: Mother of DM complications Father of MS Social: Never smoker No EOTH No other drug use PCP: Dr. Kirit Vega <Deann Nunez 09/24/18 15:35> - Diagnosis (1) Generalized weakness (2) Complicated UTI (urinary tract infection) (3) Sacral ulcer (4) Diabetes mellitus with neuropathy (5) Chronic renal insufficiency (6) Peripheral artery disease (7) Nutrition, metabolism, and development symptoms (8) DVT prophylaxis <Deann Nunez 09/24/18 16:43> Inpatient Certification: I certify that the inpatient services were ordered in accordance with Medicare regulations governing the order. This includes certification that hospital inpatient services are reasonable and necessary and in the case of services not specified as inpatient-only under 42 CFR 419.22(n), that they are appropriately provided as inpatient services in accordance to with the 2-midnight benchmark under 43 CFR 412.3(e) <Shun Haley - 09/25/18 13:52> Review of Systems Constitutional: Reports chills, Reports weakness, Denies fever(s), Denies night sweats [facility]> Eyes: Denies blurry vision, Denies change in vision [facility]> Ears, Nose, Mouth, and Throat: Reports dizziness [facility] 09/24/18 14:04> Cardiovascular: Denies chest pain [facility] 09/24/18 14:04> Respiratory: Denies cough, Denies shortness of breath, Denies wheezing <[facility] 09/24/18 14:04> Gastrointestinal: Denies abdominal pain, Denies constipation, Denies loose stools, Denies nausea, Denies vomiting <[facility] 09/24/18 14:04> Genitourinary: Reports painful urination, Denies blood in urine, Denies side pain <[facility] 09/24/18 15:14> Musculoskeletal: Reports muscle weakness, Reports tingling (hx of neuopathy) < [facility] 09/[facility] 14:04> PMFSH - History History Provided By: Patient, Audit Intern / EMT <EnriqueDeann B 09/24/18 13: 48> - Medical History Medical History: Medical History (Last Updated 09/24/18 @ 13:37 by Miriam Yu MD, R2) 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 (Acute) Anemia CHF (congestive heart failure) CRI (chronic renal insufficiency) Cyst of right kidney Diabetes Foramen ovale Gastroparesis HTN (hypertension) Neuropathy PAD (peripheral artery disease) TIA (transient ischemic attack) Weakness <Shun Haley - 09/25/18 13:52> Medical History (Last Updated 09/24/18 @ 13:37 by Miriam Yu MD, R2) 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 (Acute) Anemia CHF (congestive heart failure) CRI (chronic renal insufficiency) Cyst of right kidney Diabetes Foramen ovale Gastroparesis HTN (hypertension) Neuropathy PAD (peripheral artery disease) TIA (transient ischemic attack) Weakness <Deann Nunez 09/24/18 15:25> - Tobacco History Second Hand Smoke Exposure: No <Deann Nunez 09/24/18 13:48> Smoking Status: Never smoker <EnriqueDeann B 09/24/18 13:48> - Alcohol History How Often Do You Have a Drink Containing Alcohol: Never <Deann Nunez 13:48> - Substance Use History Substance History: No History of Abuse <Deann Nunez 09/24/18 13:48> - Travel History Recent Travel in the [facility] [place] Within the Last 8 Weeks: No <Deann Nunez 13:48> Recent Travel Out of the Country Within the Last 8 Weeks: No <Deann Nunez 09/24/18 13:48> - Immunization History Tetanus Immunization: <5 Years <Deann Nunez 09/24/18 13:48> Medications and Allergies Allergies Allergy/AdvReac Type Severity Reaction Status Date / Time clonidine AdvReac Severe Chest Pain Verified 05/24/18 07:24 metformin AdvReac Severe Numbness Verified 05/24/18 07:24 <Shun Haley - 09/25/18 13:52> Home Medications Medication Instructions Recorded Confirmed Type aspirin 325 mg PO DAILY 05/27/18 09/24/18 History ferrous sulfate [Iron (ferrous 325 mg PO DAILY 05/27/18 09/24/18 History sulfate)] gabapentin 600 mg PO TID 05/27/18 09/24/18 History hydrocodone-acetaminophen [[place]] 1 tab PO Q4H PRN 05/27/18 09/24/18 History insulin asp prt-insulin aspart 1 sliding scale dose SUB-Q UD 05/27/18 09/24/18 History [Novolog Mix 70-30 U-100 Insuln] ipratropium-albuterol 3 ml INHALATION Q6HR PRN 05/27/18 09/24/18 History multivitamin with folic acid 1 tab PO DAILY 05/27/18 09/24/18 History [Thera] pantoprazole 40 mg PO DAILY 05/27/18 09/24/18 History pravastatin 10 mg PO DAILY 05/27/18 09/24/18 History sennosides-docusate sodium [Senna 1 tab PO BID 05/27/18 09/24/18 History Plus] atorvastatin 40 mg PO DAILY 09/24/18 09/24/18 History <SudhaShun - 09/25/18 13:52> Active Medications: Active Medications Acetaminophen (Tylenol) 650 mg PO Q4H PRN PRN Reason: Temp > 100.4 Hydrocodone Bitart/Acetaminophen ([place] 10/325) 1 tab PO Q8H PRN PRN Reason: Pain 1-10 Last Admin: 09/25/18 12:02 Dose: 1 tab Al Hydroxide/Mg Hydroxide (Milk Of Magnesia Liq) 30 ml PO Q12H PRN PRN Reason: Mild Constipation Aspirin (Ecotrin) 325 mg PO DAILY [facility] Last Admin: 09/25/18 09:26 Dose: 325 mg Atorvastatin Calcium (Lipitor) 40 mg PO DAILY [facility] Last Admin: 09/25/18 09:26 Dose: 40 mg Dextrose (D50w Vial) 50 ml IV.PUSH UNSCH PRN PRN Reason: PER HYPOGLYCEMIA PROTOCOL Gabapentin (Neurontin) 600 mg PO TID [facility] Last Admin: 09/25/18 12:01 Dose: 600 mg Glucagon (Glucagon Inj) 1 mg OTHER PRN PRN PRN Reason: for Hypoglycemia Protocol Sodium Chloride (Ns Inj) 500 mls @ 0 mls/hr IV.SIG BOLUS [facility] Last Infusion: 09/24/18 12:47 Dose: Infused Sodium Chloride (Ns Inj) 500 mls @ 0 mls/hr IV.SIG BOLUS [facility] Last Infusion: 09/24/18 13:37 Dose: Infused Sodium Chloride (Ns Inj) 1,000 mls @ 110 mls/hr IV.CONT .Q9H6M [facility] Last Admin: 09/25/18 12:00 Dose: 110 mls/hr Ceftriaxone Sodium 1,000 mg/ (Sodium Chloride) 100 mls @ 200 mls/hr IV.SIG Q24H [facility] Last Admin: 09/25/18 12:01 Dose: 200 mls/hr Insulin Aspart (Novolog Insulin Correctional Sugar Inj) 0 unit SQ ACHS LINDA; Protocol Last Admin: 09/25/18 09:25 Dose: Not Given Lactulose (Lactulose Liq) 30 ml PO DAILY PRN PRN Reason: SEVERE CONSITIPATION Ondansetron HCl (Zofran Inj) 4 mg IV.PUSH Q6H PRN PRN Reason: NAUSEA OR VOMITING Last Admin: 09/25/18 09:27 Dose: 4 mg Ptownmed( Multivitamin With Folic Acid 1 Tab) 0 each PO DAILY [facility] Sennosides (Senokot) 17.2 mg PO Q12H PRN PRN Reason: Moderate Constipation Sodium Chloride (Ns Flush) 2 ml IV.FLUSH PRN PRN PRN Reason: FLUSH AFTER USING IV ACCESS Sodium Chloride (Ns Flush) 2 ml IV.FLUSH BID LINDA Last Admin: 09/25/18 09:26 Dose: Not Given <Shun Haley - 09/25/18 13:52> Active Medications Sodium Chloride (Ns Inj) 500 mls @ 0 mls/hr IV.SIG BOLUS LINDA Last Infusion: 09/24/18 12:47 Dose: Infused Sodium Chloride (Ns Inj) 500 mls @ 0 mls/hr IV.SIG BOLUS LINDA Last Infusion: 09/24/18 13:37 Dose: Infused Sodium Chloride (Ns Flush) 2 ml IV.FLUSH PRN PRN PRN Reason: FLUSH AFTER USING IV ACCESS <Deann Nunez - 09/24/18 13:48> Exam Vital signs: Vital Signs 09/24/18 14:14 09/24/18 17:26 09/24/18 17:48 Temperature 98.1 F Pulse Rate 90 79 Respiratory Rate 15 18 16 Blood Pressure 118/86 153/69 H Pulse Oximetry 97 99 09/24/18 17:56 09/24/18 19:30 09/24/18 20:00 Temperature 98 F Pulse Rate 82 87 Respiratory Rate 18 17 Blood Pressure 169/75 H Pulse Oximetry 99 09/24/18 23:30 09/25/18 00:00 09/25/18 04:00 Temperature 97.7 F 98.9 F Pulse Rate 77 82 95 H Respiratory Rate 18 15 Blood Pressure 160/54 H 152/54 H Pulse Oximetry 97 99 09/25/18 08:00 Temperature Pulse Rate Respiratory Rate Blood Pressure Pulse Oximetry 99 Intake & Output 09/24/18 09/25/18 09/25/18 18:59 06:59 18:59 Intake Total 1100 / 1100 1420 / 1420 1000 / 1000 Output Total 1600 / 1600 Balance 1100 / 1100 -180 / -180 1000 / 1000 Weight 65.9 kg 66.2 kg Intake: IV 1100 / 1100 1000 / 1000 1000 / 1000 NS Inj 1,000 ML @ 110 mls/hr IV 1000 / 1000 1000 / 1000 .CONT .Q9H6M LINDA Rx#:[id number] NS Inj 500 ML @ Wide Open IV. 1000 / 1000 SIG BOLUS LINDA Rx#:[id number] Rocephin Inj 1,000 MG In NS Inj 100 / 100 100 ML @ 200 mls/hr IV.SIG ONCE ONE Rx#:[id number] Oral 420 / 420 Output: Urine 1600 / 1600 Other: Date of Last Bowel Movement 09/24/18 09/24/18 Weight On Admission 66 kg <Shun Haley - 09/25/18 13:52> Vital Signs 09/24/18 10:58 Temperature 99.4 F Pulse Rate 97 H Respiratory Rate 15 Blood Pressure 125/93 H Pulse Oximetry 100 Intake & Output 09/23/18 09/24/18 09/24/18 18:59 06:59 18:59 Intake Total 1100 / 1100 Balance 1100 / 1100 Weight 63.503 kg Intake: IV 1100 / 1100 NS Inj 500 ML @ Wide Open IV. 1000 / 1000 SIG BOLUS LINDA Rx#:[id number] Rocephin Inj 1,000 MG In NS Inj 100 / 100 100 ML @ 200 mls/hr IV.SIG ONCE ONE Rx#:[id number] <Deann Nunez - 09/24/18 13:48> Narrative: GENERAL: 68 year old obese F, laying down comfortably in bed, in no acute distress. SKIN: Warm and dry. Small, healing sacral ulcer approximately 1 cm in diameter with skin breakdown. Clean. No active bleeding, discharge, induration or erythema. HEAD: Atraumatic. Normocephalic. EYES: Pupils equal and round. EMOI. No scleral icterus. No injection or drainage. ENT: No nasal bleeding or discharge. Mucous membranes pink, mildly dry. NECK: Trachea midline. No JVD. CARDIOVASCULAR: Regular rate and rhythm. RESPIRATORY: No accessory muscle use. Clear to auscultation. Breath sounds equal bilaterally. GASTROINTESTINAL: Abdomen soft, non-tender, nondistended. Hepatic and splenic margins not palpable. MUSCULOSKELETAL: Extremities without clubbing, cyanosis, or edema. No obvious deformities. NEUROLOGICAL: Awake and alert. No obvious cranial nerve deficits. Motor grossly within normal limits. Five out of 5 muscle strength in the arms and legs. Normal speech. <Deann Nunez - 09/24/18 15:43> Results - Labs Result diagrams: 09/25/18 06:20 09/25/18 06:20 <Shun Haley - 09/25/18 13:52> Abnormal lab results 09/24/18 09/24/18 09/25/18 Range/Units 16:49 19:43 06:20 RBC 2.77 L (4.00-5.30) mil/mm3 Hgb 8.8 L D (11.6-15.3) gm/dL Hct 26.1 L (35.0-46.0) % RDW 17.6 H (11.6-17.2) % MPV 6.6 L (7.0-11.0) fL Sodium (136-145) meq/L Chloride (98-107) meq/L Carbon Dioxide (21.0-32.0) meq/L BUN (7-18) mg/dL Creatinine (0.50-1.00) mg/dL Estimated GFR (>89) mL/min POC Glucose 116 H 160 H (68-110) mg/dl Calcium (8.5-10.1) mg/dL Total Bilirubin (0.2-1.0) mg/dL AST (15-37) U/L Albumin (3.4-5.0) g/dL 09/25/18 Range/Units 06:20 RBC (4.00-5.30) mil/mm3 Hgb (11.6-15.3) gm/dL Hct (35.0-46.0) % RDW (11.6-17.2) % MPV (7.0-11.0) fL Sodium 146 H (136-145) meq/L Chloride 125 H (98-107) meq/L Carbon Dioxide 9.9 L (21.0-32.0) meq/L BUN 52 H (7-18) mg/dL Creatinine 1.95 H (0.50-1.00) mg/dL Estimated GFR 31 L (>89) mL/min POC Glucose (68-110) mg/dl Calcium 8.2 L D (8.5-10.1) mg/dL Total Bilirubin 0.1 L (0.2-1.0) mg/dL AST 6 L (15-37) U/L Albumin 2.6 L D (3.4-5.0) g/dL Short CBC 09/25/18 Range/Units 06:20 WBC 7.8 (4.0-11.0) th/mm3 Hgb 8.8 L D (11.6-15.3) gm/dL Hct 26.1 L (35.0-46.0) % Plt Count 374 (150-450) th/mm3 BMP 09/25/18 06:20 Sodium 146 H Potassium 4.4 D Chloride 125 H Carbon Dioxide 9.9 L BUN 52 H Creatinine 1.95 H Calcium 8.2 L D Liver Function 09/25/18 Range/Units 06:20 Total Bilirubin 0.1 L (0.2-1.0) mg/dL AST 6 L (15-37) U/L ALT 19 (10-53) U/L Alkaline Phosphatase 56 (45-117) U/L Albumin 2.6 L D (3.4-5.0) g/dL <Shun Haley - 09/25/18 13:52> Abnormal lab results 09/24/18 09/24/18 09/24/18 Range/Units 11:25 11:25 12:10 RBC 3.74 L (4.00-5.30) mil/mm3 MCHC 31.8 L (32.0-36.0) % RDW 17.8 H (11.6-17.2) % MPV 6.4 L (7.0-11.0) fL Potassium 5.5 H (3.5-5.1) meq/L Chloride 121 H (98-107) meq/L Carbon Dioxide 9.4 L (21.0-32.0) meq/L BUN 64 H (7-18) mg/dL Creatinine 2.64 H (0.50-1.00) mg/dL Estimated GFR 22 L (>89) mL/min Random Glucose 154 H (74-106) mg/dL Magnesium 2.6 H (1.5-2.5) mg/dL Total Bilirubin 0.1 L (0.2-1.0) mg/dL AST 10 L (15-37) U/L Troponin I 0.06 H (0.02-0.05) ng/mL Albumin 3.3 L (3.4-5.0) g/dL Urine Clarity Cloudy H (Clear) Urine Protein 100 H (Neg-Trace) mg/dL Urine Occult Blood Large H (Negative) Ur Leukocyte Esterase Large H (Negative) Urine RBC 53 H (0-3) /hpf Urine WBC Clumps Many H (None) Urine Bacteria Occasional H (None) /hpf Short CBC 09/24/18 Range/Units 11:25 WBC 10.1 (4.0-11.0) th/mm3 Hgb 11.6 (11.6-15.3) gm/dL Hct 36.5 (35.0-46.0) % Plt Count 447 (150-450) th/mm3 BMP 09/24/18 11:25 Sodium 141 Potassium 5.5 H Chloride 121 H Carbon Dioxide 9.4 L BUN 64 H Creatinine 2.64 H Calcium 9.5 Cardiac Enzymes 09/24/18 Range/Units 11:25 Total Creatine Kinase 44 (26-192) U/L Troponin I 0.06 H (0.02-0.05) ng/mL Liver Function 09/24/18 Range/Units 11:25 Total Bilirubin 0.1 L (0.2-1.0) mg/dL AST 10 L (15-37) U/L ALT 23 (10-53) U/L Alkaline Phosphatase 76 (45-117) U/L Albumin 3.3 L (3.4-5.0) g/dL Urine 09/24/18 Range/Units 12:10 Urine Color Yellow (Yellw/Straw) Urine Clarity Cloudy H (Clear) Urine pH 5.0 (5.0-8.5) Ur Specific [place] 1.024 (1.002-1.035) Urine Protein 100 H (Neg-Trace) mg/dL Urine Glucose (UA) Negative (Negative) mg/dL <Deann Nunez - 09/24/18 13:48> - Imaging Impressions Abdomen/Pelvis CT 09/25/18 00:00 CONCLUSION: 1. Mild indistinctness involving the right renal collecting system and ureter which could indicate infection or inflammatory change. It is noted percutaneous nephrostomy tube and ureteral stent have been removed. There is scarring involving the inferior pole of the right kidney. 2. The left kidney is unremarkable. <Shun Haley - 09/25/18 13:52> Impressions Chest X-Ray 09/24/18 11:22 CONCLUSION: No acute cardiopulmonary abnormality is identified. Head CT 09/24/18 11:22 CONCLUSION: 1. Negative CT Head non contrast. . <Deann Nunez - 09/24/18 13:48> Caprini VTE Risk Assessment Caprini VTE Risk Assessment: Moderate/High Risk (score >= 2) <Deann Nunez - 09/24/18 15:43> Caprini Risk Assessment Model: Point Value = 1 Point Value = 2 Point Value = 3 Point Value = 5 Age 41-60 Minor surgery BMI > 25 kg/m2 Swollen legs Varicose veins or History of unexplained or recurrent spontaneous Oral contraceptives or hormone replacement Sepsis (< 1 month) Serious lung disease, including pneumonia (< 1 month) Abnormal pulmonary function Acute myocardial infarction Congestive heart failure (< 1 month) History of inflammatory bowel disease Medical patient at bed rest Age 61-74 Arthroscopic surgery Major open surgery (> 45 min) Laparoscopic surgery (> 45 min) Malignancy Confined to bed (> 72 hours) Immobilizing plaster cast Central venous access Age >= 75 History of VTE Family history of VTE Factor V Leiden Prothrombin [id number] Lupus anticoagulant Anticardiolipin antibodies Elevated serum homocysteine Heparin-induced thrombocytopenia Other congenital or acquired thrombophilia Stroke (< 1 month) Elective arthroplasty Hip, pelvis, or leg fracture Acute spinal cord injury (< 1 month) <Shun Haley - 09/25/18 13:52> Point Value = 1 Point Value = 2 Point Value = 3 Point Value = 5 Age 41-60 Minor surgery BMI > 25 kg/m2 Swollen legs Varicose veins or History of unexplained or recurrent spontaneous Oral contraceptives or hormone replacement Sepsis (< 1 month) Serious lung disease, including pneumonia (< 1 month) Abnormal pulmonary function Acute myocardial infarction Congestive heart failure (< 1 month) History of inflammatory bowel disease Medical patient at bed rest Age 61-74 Arthroscopic surgery Major open surgery (> 45 min) Laparoscopic surgery (> 45 min) Malignancy Confined to bed (> 72 hours) Immobilizing plaster cast Central venous access Age >= 75 History of VTE Family history of VTE Factor V Leiden Prothrombin [id number] Lupus anticoagulant Anticardiolipin antibodies Elevated serum homocysteine Heparin-induced thrombocytopenia Other congenital or acquired thrombophilia Stroke (< 1 month) Elective arthroplasty Hip, pelvis, or leg fracture Acute spinal cord injury (< 1 month) <Deann Nunez - 09/24/18 13:48> Prophylaxis Regimen: Total Risk Factor Score Risk Level Prophylaxis Regimen 0-1 Low Early ambulation 2 Moderate Order ONE of the following: *Sequential Compression Device (SCD) *Heparin 5000 units SQ BID 3-4 Higher Order ONE of the following medications: *Heparin 5000 units SQ TID *Enoxaparin/Lovenox 40 mg SQ daily (WT < 150 kg, CrCl > 30 mL/min) *Enoxaparin/Lovenox 30 mg SQ daily (WT < 150 kg, CrCl > 10-29 mL/min) *Enoxaparin/Lovenox 30 mg SQ BID (WT < 150 kg, CrCl > 30 mL/min) AND/OR *Sequential Compression Device (SCD) 5 or more Highest Order ONE of the following medications: *Heparin 5000 units SQ TID (Preferred with Epidurals) *Enoxaparin/Lovenox 40 mg SQ daily (WT < 150 kg, CrCl > 30 mL/min) *Enoxaparin/Lovenox 30 mg SQ daily (WT < 150 kg, CrCl > 10-29 mL/min) *Enoxaparin/Lovenox 30 mg SQ BID (WT < 150 kg, CrCl > 30 mL/min) AND *Sequential Compression Device (SCD) <Shun Haley - 09/25/18 13:52> Total Risk Factor Score Risk Level Prophylaxis Regimen 0-1 Low Early ambulation 2 Moderate Order ONE of the following: *Sequential Compression Device (SCD) *Heparin 5000 units SQ BID 3-4 Higher Order ONE of the following medications: *Heparin 5000 units SQ TID *Enoxaparin/Lovenox 40 mg SQ daily (WT < 150 kg, CrCl > 30 mL/min) *Enoxaparin/Lovenox 30 mg SQ daily (WT < 150 kg, CrCl > 10-29 mL/min) *Enoxaparin/Lovenox 30 mg SQ BID (WT < 150 kg, CrCl > 30 mL/min) AND/OR *Sequential Compression Device (SCD) 5 or more Highest Order ONE of the following medications: *Heparin 5000 units SQ TID (Preferred with Epidurals) *Enoxaparin/Lovenox 40 mg SQ daily (WT < 150 kg, CrCl > 30 mL/min) *Enoxaparin/Lovenox 30 mg SQ daily (WT < 150 kg, CrCl > 10-29 mL/min) *Enoxaparin/Lovenox 30 mg SQ BID (WT < 150 kg, CrCl > 30 mL/min) AND *Sequential Compression Device (SCD) <Deann Nunez - 09/24/18 13:48> Assessment and Plan - Assessment (1) Generalized weakness Code(s): R53.1 - Weakness Status: Acute Plan: Patient is complaining of generalized weakness, which has made her bedbound for the past 2 days. Generalized deconditioning versus infection versus electrolyte abnormality versus TIA. CBC within normal limits. CMP showed mild hyperkalemia of 5.5. CT head showed no acute abnormalities. Chest x-ray showed no acute abnormalities. UA showed large occult blood, large leukocyte esterase, innumerable white blood cells, occasional bacteria and many white blood cell clumps. Fall precautions. (2) Complicated UTI (urinary tract infection) Code(s): N39.0 - Urinary tract infection, site not specified Status: Acute Plan: UA showed large occult blood, large leukocyte esterase, innumerable white blood cells, occasional bacteria and many white blood cell clumps, consistent with complicated UTI and pyelonephritis. Patient given 1g Rocephin in the ED. CBC within normal limits, patient remains afebrile. Awaiting urine culture and blood cultures obtained in ED CT abd/pelvis w/o contrast ordered Continue Rocephin 1g IV qDay Tylenol 650 mg PO q6h for pain or fever (3) Sacral ulcer Code(s): L98.429 - Non-pressure chronic ulcer of back with unspecified severity Status: Acute Plan: Shallow sacral ulcer with moderate skin breakdown, approximately 1 cm in diameter. No active bleeding or discharge. Patient is seen by a home health nurse for wound care and dressing changes following a prior hospital stay. Wound ostomy nurse consulted for recommendations on wound care and dressing. Patient repositioning every 2 hours. (4) Diabetes mellitus with neuropathy Code(s): E11.40 - Type 2 diabetes mellitus with diabetic neuropathy, unspecified Status: Acute Plan: Home insulin held. Accuchecks and low dose SSI ordered. Hypoglycemia protocol ordered. Gabapentin 600mg PO TID for diabetic neuropathy. (5) Chronic renal insufficiency Code(s): N18.9 - Chronic kidney disease, unspecified Status: Acute Plan: BUN/Cr 64/2.64 on admission. Cr ~2.0 at baseline. IVF NS at 100 mls/hr at maintenance. Avoid nephrotoxic medications. (6) Peripheral artery disease Code(s): I73.9 - Peripheral vascular disease, unspecified Status: Acute Plan: Continue home atorvasatin. (7) Nutrition, metabolism, and development symptoms Code(s): R63.8 - Other symptoms and signs concerning food and fluid intake Status: Acute Plan: Fluids: NS 110 mls/hr at maintenance Electrolytes: Mild hyperkalemia of 5.5, will continue to monitor and replete as needed. Nutrition: Diabetic diet (8) DVT prophylaxis Status: Acute Plan: SCD and compression hose. <Deann Nunez - 09/24/18 16:43> - Assessment and Plan See the residents documentation for details. I saw and evaluated the patient regarding the east portions of this evaluation and agree with the residents findings and plans as written. Parts of this note were created using [employer] voice recognition software program. While efforts were made to correct any mistakes made by this software, some mistakes, errors, and omissions may remain in the final note that were not caught when the note was originally created. Plan of care was discussed and agreed upon with the patient as specifically documented in the above note. An opportunity to ask questions with explanation was provided. Patient voiced understanding on all information reviewed and discussed. <Shun Haley - 09/25/18 13:52>
[2018-09-24] MEDS ORDERED: MULTIVITAMIN WITH FOLIC ACID PO SCH (14:30)
[2018-09-24] MEDS ORDERED: Dextrose 50% in Water 50 ML Vial IV.PUSH PRN (14:30)
[2018-09-24] MEDS ORDERED: Acetaminophen 325 MG Tablet PO PRN (15:00)
[2018-09-24] MEDS: Insulin NovoLOG Aspart Correctional Sugar Inj SQ SCH ×2 (17:04→20:21)
[2018-09-24] MEDS: Sod Chloride 0.9% Inj 1,000 ML IV.CONT SCH (17:08)
[2018-09-24] MEDS: Gabapentin 300 MG Capsule PO SCH (17:12)
[2018-09-24] MEDS ORDERED: Influenza (Quadrivalent) Vaccine 0.5 ML Syringe IM ONE (18:15)
[2018-09-24] MEDS: Sodium Chloride 0.9% 2 ML Flush BID IV.FLUSH SCH (21:33)
[2018-09-25] MEDS: Sod Chloride 0.9% Inj 1,000 ML IV.CONT SCH ×4 (02:15→20:25)
[2018-09-25 07:48] LABS: Baso # (Auto) 0.1 th/mm3 (0.0-0.2); Baso % (Auto) 0.8 % (0.0-2.0); Eos # (Auto) 0.3 th/mm3 (0.0-0.4); Eos % (Auto) 3.5 % (0.0-4.0); Hematocrit 26.1 % (35.0-46.0); Hemoglobin 8.8 gm/dL (11.6-15.3); Lymph # (Auto) 2.7 th/mm3 (1.0-4.8); Lymph % (Auto) 35.2 % (9.0-44.0); Mean Corpuscular HGB Conc 33.6 % (32.0-36.0); Mean Corpuscular Hemoglobin 31.6 pg (27.0-34.0); Mean Platelet Volume 6.6 fL (7.0-11.0); Mono # (Auto) 0.5 th/mm3 (0.0-0.9); Neut # (Auto) 4.2 th/mm3 (1.8-7.7); Neut % (Auto) 53.5 % (16.0-70.0); Platelet Count 374 th/mm3 (150-450); Red Blood Count 2.77 mil/mm3 (4.00-5.30); Red Cell Distribution Width 17.6 % (11.6-17.2); White Blood Count 7.8 th/mm3 (4.0-11.0)
[2018-09-25 08:23] LABS: Alanine Aminotransferase 19 U/L (10-53); Albumin 2.6 g/dL (3.4-5.0); Alkaline Phosphatase 56 U/L (45-117); Anion Gap 11 meq/L (5-15); Aspartate Aminotransferase 6 U/L (15-37); Blood Urea Nitrogen 52 mg/dL (7-18); Calcium 8.2 mg/dL (8.5-10.1); Carbon Dioxide 9.9 meq/L (21.0-32.0); Chloride 125 meq/L (98-107); Glomerular Filtration Rate 31 mL/min (>89); Glucose,Random 103 mg/dL (74-106); Potassium 4.4 meq/L (3.5-5.1); Sodium 146 meq/L (136-145); Total Protein 6.6 g/dL (6.4-8.2)
[2018-09-25] MEDS ORDERED: [UNRECOGNIZED DRUG - OTHER] PO SCH (09:00)
[2018-09-25] MEDS ORDERED: MULTIVITAMIN WITH FOLIC ACID PO SCH (09:00)
[2018-09-25] MEDS: Insulin NovoLOG Aspart Correctional Sugar Inj SQ SCH ×4 (09:25→20:24)
[2018-09-25] MEDS: Sodium Chloride 0.9% 2 ML Flush BID IV.FLUSH SCH ×2 (09:26→20:24)
[2018-09-25] MEDS: Gabapentin 300 MG Capsule PO SCH ×3 (09:26→17:53)
--- NOTE | 2018-09-25 10:03 | P.PNFP ---
Subjective Interval history: This is a 68 year old female admitted for UTI, with UA suggestive of pyelonephritis, complaining of generalized weakness. Patient seen and examined this morning. She states that she continues to have dysuria and lower abdominal pain, but otherwise has no new complaints. She continues to feel weak. Denies nausea, vomiting, chest pain, shortness of breath or leg swelling. <Deann Nunez - 09/25/18 10:14> Results - Labs Result diagrams: 09/25/18 06:20 09/25/18 06:20 <Shun Haley - 09/25/18 14:10> Abnormal lab results 09/24/18 09/24/18 09/25/18 Range/Units 16:49 19:43 06:20 RBC 2.77 L (4.00-5.30) mil/mm3 Hgb 8.8 L D (11.6-15.3) gm/dL Hct 26.1 L (35.0-46.0) % RDW 17.6 H (11.6-17.2) % MPV 6.6 L (7.0-11.0) fL Sodium (136-145) meq/L Chloride (98-107) meq/L Carbon Dioxide (21.0-32.0) meq/L BUN (7-18) mg/dL Creatinine (0.50-1.00) mg/dL Estimated GFR (>89) mL/min POC Glucose 116 H 160 H (68-110) mg/dl Calcium (8.5-10.1) mg/dL Total Bilirubin (0.2-1.0) mg/dL AST (15-37) U/L Albumin (3.4-5.0) g/dL 09/25/18 Range/Units 06:20 RBC (4.00-5.30) mil/mm3 Hgb (11.6-15.3) gm/dL Hct (35.0-46.0) % RDW (11.6-17.2) % MPV (7.0-11.0) fL Sodium 146 H (136-145) meq/L Chloride 125 H (98-107) meq/L Carbon Dioxide 9.9 L (21.0-32.0) meq/L BUN 52 H (7-18) mg/dL Creatinine 1.95 H (0.50-1.00) mg/dL Estimated GFR 31 L (>89) mL/min POC Glucose (68-110) mg/dl Calcium 8.2 L D (8.5-10.1) mg/dL Total Bilirubin 0.1 L (0.2-1.0) mg/dL AST 6 L (15-37) U/L Albumin 2.6 L D (3.4-5.0) g/dL Short CBC 09/25/18 Range/Units 06:20 WBC 7.8 (4.0-11.0) th/mm3 Hgb 8.8 L D (11.6-15.3) gm/dL Hct 26.1 L (35.0-46.0) % Plt Count 374 (150-450) th/mm3 BMP 09/25/18 06:20 Sodium 146 H Potassium 4.4 D Chloride 125 H Carbon Dioxide 9.9 L BUN 52 H Creatinine 1.95 H Calcium 8.2 L D Liver Function 09/25/18 Range/Units 06:20 Total Bilirubin 0.1 L (0.2-1.0) mg/dL AST 6 L (15-37) U/L ALT 19 (10-53) U/L Alkaline Phosphatase 56 (45-117) U/L Albumin 2.6 L D (3.4-5.0) g/dL <Shun Haley - 09/25/18 14:10> Abnormal lab results 09/24/18 09/24/18 09/24/18 Range/Units 11:25 11:25 12:10 RBC 3.74 L (4.00-5.30) mil/mm3 Hgb (11.6-15.3) gm/dL Hct (35.0-46.0) % MCHC 31.8 L (32.0-36.0) % RDW 17.8 H (11.6-17.2) % MPV 6.4 L (7.0-11.0) fL Sodium (136-145) meq/L Potassium 5.5 H (3.5-5.1) meq/L Chloride 121 H (98-107) meq/L Carbon Dioxide 9.4 L (21.0-32.0) meq/L BUN 64 H (7-18) mg/dL Creatinine 2.64 H (0.50-1.00) mg/dL Estimated GFR 22 L (>89) mL/min POC Glucose (68-110) mg/dl Random Glucose 154 H (74-106) mg/dL Calcium (8.5-10.1) mg/dL Magnesium 2.6 H (1.5-2.5) mg/dL Total Bilirubin 0.1 L (0.2-1.0) mg/dL AST 10 L (15-37) U/L Troponin I 0.06 H (0.02-0.05) ng/mL Albumin 3.3 L (3.4-5.0) g/dL Urine Clarity Cloudy H (Clear) Urine Protein 100 H (Neg-Trace) mg/dL Urine Occult Blood Large H (Negative) Ur Leukocyte Esterase Large H (Negative) Urine RBC 53 H (0-3) /hpf Urine WBC Clumps Many H (None) Urine Bacteria Occasional H (None) /hpf 09/24/18 09/24/18 09/25/18 Range/Units 16:49 19:43 06:20 RBC 2.77 L (4.00-5.30) mil/mm3 Hgb 8.8 L D (11.6-15.3) gm/dL Hct 26.1 L (35.0-46.0) % MCHC (32.0-36.0) % RDW 17.6 H (11.6-17.2) % MPV 6.6 L (7.0-11.0) fL Sodium (136-145) meq/L Potassium (3.5-5.1) meq/L Chloride (98-107) meq/L Carbon Dioxide (21.0-32.0) meq/L BUN (7-18) mg/dL Creatinine (0.50-1.00) mg/dL Estimated GFR (>89) mL/min POC Glucose 116 H 160 H (68-110) mg/dl Random Glucose (74-106) mg/dL Calcium (8.5-10.1) mg/dL Magnesium (1.5-2.5) mg/dL Total Bilirubin (0.2-1.0) mg/dL AST (15-37) U/L Troponin I (0.02-0.05) ng/mL Albumin (3.4-5.0) g/dL Urine Clarity (Clear) Urine Protein (Neg-Trace) mg/dL Urine Occult Blood (Negative) Ur Leukocyte Esterase (Negative) Urine RBC (0-3) /hpf Urine WBC Clumps (None) Urine Bacteria (None) /hpf 09/25/18 Range/Units 06:20 RBC (4.00-5.30) mil/mm3 Hgb (11.6-15.3) gm/dL Hct (35.0-46.0) % MCHC (32.0-36.0) % RDW (11.6-17.2) % MPV (7.0-11.0) fL Sodium 146 H (136-145) meq/L Potassium (3.5-5.1) meq/L Chloride 125 H (98-107) meq/L Carbon Dioxide 9.9 L (21.0-32.0) meq/L BUN 52 H (7-18) mg/dL Creatinine 1.95 H (0.50-1.00) mg/dL Estimated GFR 31 L (>89) mL/min POC Glucose (68-110) mg/dl Random Glucose (74-106) mg/dL Calcium 8.2 L D (8.5-10.1) mg/dL Magnesium (1.5-2.5) mg/dL Total Bilirubin 0.1 L (0.2-1.0) mg/dL AST 6 L (15-37) U/L Troponin I (0.02-0.05) ng/mL Albumin 2.6 L D (3.4-5.0) g/dL Urine Clarity (Clear) Urine Protein (Neg-Trace) mg/dL Urine Occult Blood (Negative) Ur Leukocyte Esterase (Negative) Urine RBC (0-3) /hpf Urine WBC Clumps (None) Urine Bacteria (None) /hpf Short CBC 09/24/18 09/25/18 Range/Units 11:25 06:20 WBC 10.1 7.8 (4.0-11.0) th/mm3 Hgb 11.6 8.8 L D (11.6-15.3) gm/dL Hct 36.5 26.1 L (35.0-46.0) % Plt Count 447 374 (150-450) th/mm3 BMP 09/24/18 09/25/18 11:25 06:20 Sodium 141 146 H Potassium 5.5 H 4.4 D Chloride 121 H 125 H Carbon Dioxide 9.4 L 9.9 L BUN 64 H 52 H Creatinine 2.64 H 1.95 H Calcium 9.5 8.2 L D Cardiac Enzymes 09/24/18 Range/Units 11:25 Total Creatine Kinase 44 (26-192) U/L Troponin I 0.06 H (0.02-0.05) ng/mL Liver Function 09/24/18 09/25/18 Range/Units 11:25 06:20 Total Bilirubin 0.1 L 0.1 L (0.2-1.0) mg/dL AST 10 L 6 L (15-37) U/L ALT 23 19 (10-53) U/L Alkaline Phosphatase 76 56 (45-117) U/L Albumin 3.3 L 2.6 L D (3.4-5.0) g/dL Urine 09/24/18 Range/Units 12:10 Urine Color Yellow (Yellw/Straw) Urine Clarity Cloudy H (Clear) Urine pH 5.0 (5.0-8.5) Ur Specific [place] 1.024 (1.002-1.035) Urine Protein 100 H (Neg-Trace) mg/dL Urine Glucose (UA) Negative (Negative) mg/dL <Deann Nunez - 09/25/18 10:03> - Imaging Impressions Abdomen/Pelvis CT 09/25/18 00:00 CONCLUSION: 1. Mild indistinctness involving the right renal collecting system and ureter which could indicate infection or inflammatory change. It is noted percutaneous nephrostomy tube and ureteral stent have been removed. There is scarring involving the inferior pole of the right kidney. 2. The left kidney is unremarkable. <Shun Haley - 09/25/18 14:10> Impressions Chest X-Ray 09/24/18 11:22 CONCLUSION: No acute cardiopulmonary abnormality is identified. Head CT 09/24/18 11:22 CONCLUSION: 1. Negative CT Head non contrast. . <Deann Nunez - 09/25/18 10:03> Physical Exam Vital signs: Vital Signs 09/24/18 14:14 09/24/18 17:26 09/24/18 17:48 Temperature 98.1 F Pulse Rate 90 79 Respiratory Rate 15 18 16 Blood Pressure 118/86 153/69 H Pulse Oximetry 97 99 09/24/18 17:56 09/24/18 19:30 09/24/18 20:00 Temperature 98 F Pulse Rate 82 87 Respiratory Rate 18 17 Blood Pressure 169/75 H Pulse Oximetry 99 09/24/18 23:30 09/25/18 00:00 09/25/18 04:00 Temperature 97.7 F 98.9 F Pulse Rate 77 82 95 H Respiratory Rate 18 15 Blood Pressure 160/54 H 152/54 H Pulse Oximetry 97 99 09/25/18 08:00 09/25/18 12:00 Temperature 97.8 F 97.5 F L Pulse Rate 86 87 Respiratory Rate 16 16 Blood Pressure 179/72 H 171/65 H Pulse Oximetry 96 96 Intake & Output 09/24/18 09/25/18 09/25/18 18:59 06:59 18:59 Intake Total 1100 / 1100 1420 / 1420 1000 / 1000 Output Total 1600 / 1600 Balance 1100 / 1100 -180 / -180 1000 / 1000 Weight 65.9 kg 66.2 kg Intake: IV 1100 / 1100 1000 / 1000 1000 / 1000 NS Inj 1,000 ML @ 110 mls/hr IV 1000 / 1000 1000 / 1000 .CONT .Q9H6M [facility] Rx#:[id number] NS Inj 500 ML @ Wide Open IV. 1000 / 1000 SIG BOLUS [facility] Rx#:[id number] Rocephin Inj 1,000 MG In NS Inj 100 / 100 100 ML @ 200 mls/hr IV.SIG ONCE ONE Rx#:[id number] Oral 420 / 420 Output: Urine 1600 / 1600 Other: Date of Last Bowel Movement 09/24/18 09/24/18 Weight On Admission 66 kg <Shun Haley - 09/25/18 14:10> Vital Signs 09/24/18 10:58 09/24/18 14:14 09/24/18 17:26 Temperature 99.4 F Pulse Rate 97 H 90 Respiratory Rate 15 15 18 Blood Pressure 125/93 H 118/86 Pulse Oximetry 100 97 09/24/18 17:48 09/24/18 17:56 09/24/18 19:30 Temperature 98.1 F Pulse Rate 79 82 Respiratory Rate 16 18 Blood Pressure 153/69 H Pulse Oximetry 99 09/24/18 20:00 09/24/18 23:30 09/25/18 00:00 Temperature 98 F 97.7 F Pulse Rate 87 77 82 Respiratory Rate 17 18 Blood Pressure 169/75 H 160/54 H Pulse Oximetry 99 97 09/25/18 04:00 Temperature 98.9 F Pulse Rate 95 H Respiratory Rate 15 Blood Pressure 152/54 H Pulse Oximetry 99 Intake & Output 09/24/18 09/25/18 09/25/18 18:59 06:59 18:59 Intake Total 1100 / 1100 1420 / 1420 Output Total 1600 / 1600 Balance 1100 / 1100 -180 / -180 Weight 65.9 kg 66.2 kg Intake: IV 1100 / 1100 1000 / 1000 NS Inj 1,000 ML @ 110 mls/hr IV 1000 / 1000 .CONT .Q9H6M [facility] Rx#:[id number] NS Inj 500 ML @ Wide Open IV. 1000 / 1000 SIG BOLUS [facility] Rx#:[id number] Rocephin Inj 1,000 MG In NS Inj 100 / 100 100 ML @ 200 mls/hr IV.SIG ONCE ONE Rx#:[id number] Oral 420 / 420 Output: Urine 1600 / 1600 Other: Date of Last Bowel Movement 09/24/18 09/24/18 Weight On Admission 66 kg <Deann Nunez - 09/25/18 10:03> Narrative: GENERAL: 68 year old obese F, laying down comfortably in bed, in no acute distress. SKIN: Warm and dry. Small, healing sacral ulcer approximately 1 cm in diameter with skin breakdown. Clean. No active bleeding, discharge, induration or erythema. HEAD: Atraumatic. Normocephalic. ENT: No nasal bleeding or discharge. Mucous membranes pink. CARDIOVASCULAR: Regular rate and rhythm. RESPIRATORY: No accessory muscle use. Clear to auscultation. Breath sounds equal bilaterally. GASTROINTESTINAL: Abdomen soft, nondistended. Mild tenderness to suprapubic region. MUSCULOSKELETAL: Extremities without clubbing, cyanosis, or edema. NEUROLOGICAL: Awake and alert. No obvious cranial nerve deficits. Motor grossly within normal limits. Five out of 5 muscle strength in the arms and legs. <Deann Nunez - 09/25/18 10:14> - Urinary Catheter Management Straight Cath placed during this visit: no <Shun Haley - 09/25/18 14:10> yes, but has since been removed by the nurse <Deann Nunez 09/25/18 10:14> Reason for continuing: Decision to DC catheter <Deann Nunez 09/25/18 10: 03> Insertion date: 09/24/18 <Deann Nunez 09/25/18 10:03> Insertion time: 12:11 <Deann Nunez 09/25/18 10:03> Removal date: 09/24/18 <Deann Nunez 09/25/18 10:03> Removal time: 12:12 <Deann Nunez 09/25/18 10:03> Assessment and Plan - Assessment (1) Generalized weakness Code(s): R53.1 - Weakness Status: Acute Plan: Patient is complaining of generalized weakness, which has made her bedbound for the past 2 days. Generalized deconditioning versus infection versus electrolyte abnormality versus TIA. CBC and CMP overall within normal limits. CT head showed no acute abnormalities. Chest x-ray showed no acute abnormalities. UA showed large occult blood, large leukocyte esterase, innumerable white blood cells, occasional bacteria and many white blood cell clumps. Urine culture pending. Fall precautions. (2) Complicated UTI (urinary tract infection) Code(s): N39.0 - Urinary tract infection, site not specified Status: Acute Plan: UA showed large occult blood, large leukocyte esterase, innumerable white blood cells, occasional bacteria and many white blood cell clumps, consistent with complicated UTI and pyelonephritis. Patient given 1g Rocephin in the ED. CBC within normal limits, patient remains afebrile. Awaiting urine culture and blood cultures obtained in ED CT abd/pelvis w/o contrast ordered Continue Rocephin 1g IV qDay, Day 2 Tylenol 650 mg PO q6h for pain or fever (3) Sacral ulcer Code(s): L98.429 - Non-pressure chronic ulcer of back with unspecified severity Status: Acute Plan: Shallow sacral ulcer with moderate skin breakdown, approximately 1 cm in diameter. No active bleeding or discharge. Patient is seen by a home health nurse for wound care and dressing changes following a prior hospital stay. Wound ostomy nurse consulted for recommendations on wound care and dressing. Patient repositioning every 2 hours. (4) Diabetes mellitus with neuropathy Code(s): E11.40 - Type 2 diabetes mellitus with diabetic neuropathy, unspecified Status: Acute Plan: Home insulin held. Accuchecks and low dose SSI ordered. Hypoglycemia protocol ordered. Gabapentin 600mg PO TID for diabetic neuropathy. (5) Chronic renal insufficiency Code(s): N18.9 - Chronic kidney disease, unspecified Status: Acute Plan: BUN/Cr 64/2.64 on admission. Cr ~2.0 at baseline. IVF NS at 100 mls/hr at maintenance. Avoid nephrotoxic medications. (6) Peripheral artery disease Code(s): I73.9 - Peripheral vascular disease, unspecified Status: Acute Plan: Continue home atorvasatin. (7) Nutrition, metabolism, and development symptoms Code(s): R63.8 - Other symptoms and signs concerning food and fluid intake Status: Acute Plan: Fluids: NS 110 mls/hr at maintenance Electrolytes: No notable electrolyte abnormalities noted, will continue to monitor and replete as needed. Nutrition: Diabetic diet (8) DVT prophylaxis Status: Acute Plan: SCD and compression hose. <Deann Nunez - 09/25/18 10:07> - Assessment and Plan See the residents documentation for details. I saw and evaluated the patient regarding the east portions of this evaluation and agree with the residents findings and plans as written. Parts of this note were created using [employer] voice recognition software program. While efforts were made to correct any mistakes made by this software, some mistakes, errors, and omissions may remain in the final note that were not caught when the note was originally created. Plan of care was discussed and agreed upon with the patient as specifically documented in the above note. An opportunity to ask questions with explanation was provided. Patient voiced understanding on all information reviewed and discussed. <Shun Haley - 09/25/18 14:10>
--- NOTE | 2018-09-25 11:52 | CT ---
EXAM DATE: 09/25/2018 11:33 AM EDT AGE/SEX: 68 years / Female INDICATIONS: Urinary tract infection CLINICAL DATA: This is the patient's initial encounter. Patient reports that signs and symptoms have been present for 1 day and indicates a pain score of 0/10. MEDICAL/SURGICAL HISTORY: Congestive heart failure. Diabetes. Gastroparesis. anemia PAD, TIA , HTN None. RADIATION DOSE: 10.42 CTDI (mGy) COMPARISON: [place], CT ABDOMEN & PELVIS W/O CONTRAST, 12/08/2017. . TECHNIQUE: Multiple contiguous axial images were obtained through the abdomen. Images were obtained using multiple row detector helical technique. Using automated exposure control and adjustment of the mA and/or kV according to patient size, radiation dose was kept as low as reasonably achievable to o btain optimal diagnostic quality images. DICOM format image data is available electronically for rev iew and comparison. FINDINGS: Lower Lungs: The visualized lower lungs are clear. Liver: The liver has a homogeneous density without space-occupying lesion. There is no dilation of th e biliary tree. Spleen: Homogeneous density without enlargement. Pancreas: Unremarkable without mass or calcification. Kidneys: Left kidney remains unremarkable in appearance with no renal calculi or obstruction. In the right kidney the previously noted cutaneous nephrostomy tube and ureteral stent catheter has been re moved. There is scarring involving the inferior pole of the kidney with no renal calculi. There is mi ld inflammatory change and indistinctness of the renal pelvis and proximal ureter. No definite ureter al calculi identified. There are 2 stable calcifications along the right-sided uterus which are shown to be outside the ureter. Adrenal Glands: Unremarkable. Aorta: The aorta and proximal iliac vessels are grossly unremarkable without aneurysmal dilation. Bowel/Mesentery: The bowel loops are grossly unremarkable. The cecum and sigmoid colon have a normal configuration. Abdominal Wall: Intact. Retroperitoneum: No evidence of adenopathy in the retrocrural, para-aortic, or deep pelvic regions. Bladder: Contours are smooth. Reproductive Organs: No abnormal masses or calcifications seen. Inguinal: The inguinal region is unremarkable without evidence of adenopathy. Bony Structures: Unremarkable. CONCLUSION: 1. Mild indistinctness involving the right renal collecting system and ureter which could indicate i nfection or inflammatory change. It is noted percutaneous nephrostomy tube and ureteral stent have be en removed. There is scarring involving the inferior pole of the right kidney. 2. The left kidney is unremarkable. Electronically signed by: Eric Petty MD 09/25/2018 11:51 AM EDT
--- NOTE | 2018-09-25 15:13 | P.PNWCN ---
Wound Care Nurse Consult Description: Consult for Pressure Ulcer of sacral ulcer per Dr Nunez. Communicated with: Patient Katelyn, ELDON Recommendation: Leave Optifoam gentle in place on Left Buttock for 3 days. On 09/28/18 remove Optifoam gentle from left buttock and gently cleanse partial thickness skin loss with Normal Saline and pat dry. Place a new Optifoam gentle over wound bed after skin prepping the periwound with Cavilon skin barrier film. Additional information: Patient seen on [facility] for wound evaluation. Wound/Pressure Injury - Wound Left Buttocks Wound Assessment: Ongoing Is This a Chronic Wound: Yes Requested from Provider a Wound Care Consult: Yes Length (cm): 1 (cm) Width (cm): 1 (cm) Depth (cm): 0.1 (cm) Wound Bed Appearance: [place], Red Wound Bed Appearance: shallow, non draining, no odor noted, open wound margins even with wound bed, closing wound. Dressing Status: Changed Primary Dressing: Optifoam gentle
--- NOTE | 2018-09-25 17:09 | ECG ---
Date Performed: 09/24/2018 Time Performed: 11:09:23 PTAGE: 68 years EKG: Sinus rhythm Nonspecific T wave changes. When compared to previous tracing, nonspecific T wave changes Are now pr esent. ABNORMAL ECG PREVIOUS TRACING : 05/24/2018 06.46 DOCTOR: Sean Pinzon Interpretating Date/Time 09/25/2018 17:07:26
[2018-09-26] MEDS: Sod Chloride 0.9% Inj 1,000 ML IV.CONT SCH ×2 (04:47→13:36)
[2018-09-26 08:07] LABS: Calcium 8.3 mg/dL (8.5-10.1); Carbon Dioxide 11.1 meq/L (21.0-32.0); Potassium 4.2 meq/L (3.5-5.1)
[2018-09-26 08:22] LABS: Baso # (Auto) 0.1 th/mm3 (0.0-0.2); Eos # (Auto) 0.3 th/mm3 (0.0-0.4); Eos % (Auto) 4.7 % (0.0-4.0); Hematocrit 26.6 % (35.0-46.0); Hemoglobin 8.5 gm/dL (11.6-15.3); Lymph # (Auto) 2.7 th/mm3 (1.0-4.8); Lymph % (Auto) 40.9 % (9.0-44.0); Mean Corpuscular HGB Conc 31.9 % (32.0-36.0); Mean Corpuscular Hemoglobin 31.2 pg (27.0-34.0); Mean Corpuscular Volume 97.8 fL (80.0-100.0); Mean Platelet Volume 6.4 fL (7.0-11.0); Mono # (Auto) 0.6 th/mm3 (0.0-0.9); Mono % (Auto) 9.3 % (0.0-8.0); Neut # (Auto) 2.9 th/mm3 (1.8-7.7); Neut % (Auto) 44.1 % (16.0-70.0); Platelet Count 353 th/mm3 (150-450); Red Blood Count 2.73 mil/mm3 (4.00-5.30); Red Cell Distribution Width 17.7 % (11.6-17.2); White Blood Count 6.6 th/mm3 (4.0-11.0)
[2018-09-26] MEDS: Gabapentin 300 MG Capsule PO SCH ×2 (09:37→20:50)
[2018-09-26] MEDS: Insulin NovoLOG Aspart Correctional Sugar Inj SQ SCH ×4 (09:38→20:51)
[2018-09-26] MEDS: Sodium Chloride 0.9% 2 ML Flush BID IV.FLUSH SCH ×2 (09:38→20:52)
--- NOTE | 2018-09-26 10:34 | P.PNFP ---
Subjective Interval history: She is seen and examined this morning with daughter at bedside. Patient states that she is still feeling very weak. Daughter states that she seems to be weaker today than she was yesterday, as she is having trouble moving around the bed to use a bedpan. Per her daughter, patient was able to walk with a walker less than 1 week ago, prior to hospital admission. 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 Patient states that this weakness feels similar to the hospital today. She states that her weakness originally started in her feet and has slowly progressed. 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 She states that she does have numbness and tingling in her feet, but she has a long-standing history of diabetic neuropathy , for which she takes gabapentin. She denies shortness of breath or having trouble taking deep breath. She still complains of mild dysuria. Denies fevers, chills, abdominal pain, chest pain, diarrhea, constipation, leg swelling, or back pain. Results - Labs Result diagrams: 09/26/18 07:29 09/26/18 07:20 Abnormal lab results 09/25/18 09/26/18 09/26/18 Range/Units 17:52 07:20 07:29 RBC 2.73 L (4.00-5.30) mil/mm3 Hgb 8.5 L (11.6-15.3) gm/dL Hct 26.6 L (35.0-46.0) % MCHC 31.9 L (32.0-36.0) % RDW 17.7 H (11.6-17.2) % MPV 6.4 L (7.0-11.0) fL [place] % (Auto) 9.3 H (0.0-8.0) % Eos % (Auto) 4.7 H (0.0-4.0) % Sodium 146 H (136-145) meq/L Chloride 127 H (98-107) meq/L Carbon Dioxide 11.1 L (21.0-32.0) meq/L BUN 39 H (7-18) mg/dL Creatinine 1.54 H (0.50-1.00) mg/dL Estimated GFR 41 L (>89) mL/min POC Glucose 124 H (68-110) mg/dl Calcium 8.3 L (8.5-10.1) mg/dL Short CBC 09/26/18 Range/Units 07:29 WBC 6.6 (4.0-11.0) th/mm3 Hgb 8.5 L (11.6-15.3) gm/dL Hct 26.6 L (35.0-46.0) % Plt Count 353 (150-450) th/mm3 BMP 09/26/18 07:20 Sodium 146 H Potassium 4.2 Chloride 127 H Carbon Dioxide 11.1 L BUN 39 H Creatinine 1.54 H Calcium 8.3 L - Imaging Impressions Abdomen/Pelvis CT 09/25/18 00:00 CONCLUSION: 1. Mild indistinctness involving the right renal collecting system and ureter which could indicate infection or inflammatory change. It is noted percutaneous nephrostomy tube and ureteral stent have been removed. There is scarring involving the inferior pole of the right kidney. 2. The left kidney is unremarkable. Physical Exam Vital signs: Vital Signs 09/25/18 12:00 09/25/18 16:00 09/25/18 20:00 Temperature 97.5 F L 98.0 F 98 F Pulse Rate 87 77 89 Respiratory Rate 16 16 9 L Blood Pressure 171/65 H 162/93 H 167/78 H Pulse Oximetry 96 97 98 09/25/18 20:23 09/26/18 00:00 09/26/18 04:00 Temperature 98.9 F 98.1 F Pulse Rate 81 79 Respiratory Rate 9 L 18 18 Blood Pressure 173/76 H 164/78 H Pulse Oximetry 98 97 09/26/18 08:00 Temperature 97.8 F Pulse Rate 84 Respiratory Rate 18 Blood Pressure 169/101 H Pulse Oximetry 97 Intake & Output 09/25/18 09/26/18 09/26/18 18:59 06:59 18:59 Intake Total 1100 / 1100 2020 / 2019 Output Total 350 / 350 Balance 1100 / 1100 1670 / 1670 Weight 64.1 kg Intake: IV 1100 / 1100 1900 / 1900 NS Inj 1,000 ML @ 110 mls/hr IV 1000 / 1000 1900 / 1900 .CONT .Q9H6M [facility] Rx#:[id number] Rocephin Inj 1,000 MG In NS Inj 100 / 100 100 ML @ 200 mls/hr IV.SIG Q24H [facility] Rx#:[id number] Oral 120 / 120 Output: Urine 350 / 350 Other: # Voids 2 Date of Last Bowel Movement 09/24/18 09/24/18 Narrative: GENERAL: 68 year old obese F, sitting up comfortably in bed, in no acute distress. SKIN: Warm and dry. Small, healing sacral ulcer approximately 1 cm in diameter with skin breakdown. Clean. No active bleeding, discharge, induration or erythema. HEAD: Atraumatic. Normocephalic. ENT: No nasal bleeding or discharge. Mucous membranes pink. CARDIOVASCULAR: Regular rate and rhythm. RESPIRATORY: No accessory muscle use. Clear to auscultation. Breath sounds equal bilaterally. GASTROINTESTINAL: Abdomen soft, nondistended. Mild tenderness to suprapubic region. MUSCULOSKELETAL: Extremities without clubbing, cyanosis, or edema. NEUROLOGICAL: Awake and alert. No obvious cranial nerve deficits. Motor grossly within normal limits. Five out of 5 muscle strength in the arms and legs. - Urinary Catheter Management Straight Cath placed during this visit: yes, but has since been removed by the nurse Reason for continuing: Decision to DC catheter Insertion date: 09/24/18 Insertion time: 12:11 Removal date: 09/24/18 Removal time: 12:12 Assessment and Plan - Assessment (1) Generalized weakness Code(s): R53.1 - Weakness Status: Acute Plan: Patient is complaining of generalized weakness, which has made her bedbound for the past 2 days. Generalized deconditioning versus infection versus electrolyte abnormality versus TIA versus recurrent episode of Guillain [place] syndrome. CBC and CMP overall within normal limits. CT head showed no acute abnormalities. Chest x-ray showed no acute abnormalities. UA showed large occult blood, large leukocyte esterase, innumerable white blood cells, occasional bacteria and many white blood cell clumps. Urine culture shows no growth to date. Neurology consulted, due to patient's hx of Guillain [place]. Fall precautions. (2) Complicated UTI (urinary tract infection) Code(s): N39.0 - Urinary tract infection, site not specified Status: Acute Plan: UA showed large occult blood, large leukocyte esterase, innumerable white blood cells, occasional bacteria and many white blood cell clumps, consistent with complicated UTI and pyelonephritis. Patient given 1g Rocephin in the ED. CBC within normal limits, patient remains afebrile. Urine culture and blood cultures: NGTD for [address] abd/pelvis w/o contrast ordered Continue Rocephin 1g IV qDay, Day 2 Tylenol 650 mg PO q6h for pain or fever (3) Sacral ulcer Code(s): L98.429 - Non-pressure chronic ulcer of back with unspecified severity Status: Acute Plan: Shallow sacral ulcer with moderate skin breakdown, approximately 1 cm in diameter. No active bleeding or discharge. Patient is seen by a home health nurse for wound care and dressing changes following a prior hospital stay. Wound ostomy nurse consulted for recommendations on wound care and dressing. Patient repositioning every 2 hours. (4) Diabetes mellitus with neuropathy Code(s): E11.40 - Type 2 diabetes mellitus with diabetic neuropathy, unspecified Status: Acute Plan: Home insulin held. Accuchecks and low dose SSI ordered. Hypoglycemia protocol ordered. Gabapentin 600mg PO BID for diabetic neuropathy. (5) Chronic renal insufficiency Code(s): N18.9 - Chronic kidney disease, unspecified Status: Acute Plan: BUN/Cr 64/2.64 on admission. Cr ~2.0 at baseline. IVF NS at 100 mls/hr at maintenance. Avoid nephrotoxic medications. (6) History of Guillain-[place] syndrome Code(s): Z86.69 - Personal history of other diseases of the nervous system and sense organs Status: Acute Plan: see plan for generalized weakness above (7) Peripheral artery disease Code(s): I73.9 - Peripheral vascular disease, unspecified Status: Acute Plan: Continue home atorvasatin. (8) Nutrition, metabolism, and development symptoms Code(s): R63.8 - Other symptoms and signs concerning food and fluid intake Status: Acute Plan: Fluids: NS 110 mls/hr at maintenance Electrolytes: No notable electrolyte abnormalities noted, will continue to monitor and replete as needed. Nutrition: Diabetic diet (9) DVT prophylaxis Status: Acute Plan: SCD and compression hose. - Assessment and Plan See the residents documentation for details. I saw and evaluated the patient regarding the east portions of this evaluation and agree with the residents findings and plans as written. Parts of this note were created using [employer] voice recognition software program. While efforts were made to correct any mistakes made by this software, some mistakes, errors, and omissions may remain in the final note that were not caught when the note was originally created. Plan of care was discussed and agreed upon with the patient as specifically documented in the above note. An opportunity to ask questions with explanation was provided. Patient voiced understanding on all information reviewed and discussed.
[2018-09-26] MEDS: amLODIPine 5 MG Tablet PO SCH (13:35)
--- NOTE | 2018-09-26 15:59 | P.CONNEU ---
History of Present Illness Service: Neurology Primary Care Provider: Kirit Vega MD, R3 Chief Complaint: Generalized weakness History of Present Illness: 68-year-old female admitted for UTI generalized weakness. States she has a history of diabetic neuropathy that began over 2 years ago. She is gotten progressively weak in her feet numbness tingling. She is a walker at home. Gotten worse over the past several months. She states whenever she gets infections her symptoms get worse. 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 (Acute) Anemia CHF (congestive heart failure) CRI (chronic renal insufficiency) Cyst of right kidney Diabetes Foramen ovale Gastroparesis HTN (hypertension) Neuropathy PAD (peripheral artery disease) TIA (transient ischemic attack) Weakness - Tobacco History Second Hand Smoke Exposure: No Tobacco Use In Past 30 Days: No Smoking Status: Never smoker - Alcohol History How Often Do You Have a Drink Containing Alcohol: Never - Substance Use History Substance History: No History of Abuse - Travel History Recent Travel in the [place] Within the Last 8 Weeks: No Recent Travel Out of the Country Within the Last 8 Weeks: No - Immunization History Tetanus Immunization: <5 Years Hx Influenza Vaccine This Season: No Medications and Allergies Active Medications: Active Medications Acetaminophen (Tylenol) 650 mg PO Q4H PRN PRN Reason: Temp > 100.4 Hydrocodone Bitart/Acetaminophen ([place] 10/325) 1 tab PO Q8H PRN PRN Reason: Pain 1-10 Last Admin: 09/26/18 06:27 Dose: 1 tab Al Hydroxide/Mg Hydroxide (Milk Of Magnesia Liq) 30 ml PO Q12H PRN PRN Reason: Mild Constipation Amlodipine Besylate (Norvasc) 5 mg PO DAILY [facility] Last Admin: 09/26/18 13:35 Dose: 5 mg Aspirin (Ecotrin) 325 mg PO DAILY [facility] Last Admin: 09/26/18 09:38 Dose: 325 mg Atorvastatin Calcium (Lipitor) 40 mg PO DAILY [facility] Last Admin: 09/26/18 09:38 Dose: 40 mg Ciprofloxacin HCl (Cipro) 500 mg PO Q12HR [facility] Dextrose (D50w Vial) 50 ml IV.PUSH UNSCH PRN PRN Reason: PER HYPOGLYCEMIA PROTOCOL Gabapentin (Neurontin) 600 mg PO BID [facility] Glucagon (Glucagon Inj) 1 mg OTHER PRN PRN PRN Reason: for Hypoglycemia Protocol Insulin Aspart (Novolog Insulin Correctional Sugar Inj) 0 unit SQ ACHS [facility]; Protocol Last Admin: 09/26/18 13:35 Dose: 1 unit Lactulose (Lactulose Liq) 30 ml PO DAILY PRN PRN Reason: SEVERE CONSITIPATION Ondansetron HCl (Zofran Inj) 4 mg IV.PUSH Q6H PRN PRN Reason: NAUSEA OR VOMITING Last Admin: 09/25/18 09:27 Dose: 4 mg Ptownmed( Multivitamin With Folic Acid 1 Tab) 0 each PO DAILY [facility] Sennosides (Senokot) 17.2 mg PO Q12H PRN PRN Reason: Moderate Constipation Sodium Chloride (Ns Flush) 2 ml IV.FLUSH PRN PRN PRN Reason: FLUSH AFTER USING IV ACCESS Sodium Chloride (Ns Flush) 2 ml IV.FLUSH BID [facility] Last Admin: 09/26/18 09:38 Dose: Not Given Allergies Allergy/AdvReac Type Severity Reaction Status Date / Time clonidine AdvReac Severe Chest Pain Verified 05/24/18 07:24 metformin AdvReac Severe Numbness Verified 05/24/18 07:24 Home Medications Medication Instructions Recorded Confirmed Type aspirin 325 mg PO DAILY 05/27/18 09/24/18 History ferrous sulfate [Iron (ferrous 325 mg PO DAILY 05/27/18 09/24/18 History sulfate)] gabapentin 600 mg PO TID 05/27/18 09/24/18 History hydrocodone-acetaminophen [[place]] 1 tab PO Q4H PRN 05/27/18 09/24/18 History insulin asp prt-insulin aspart 1 sliding scale dose SUB-Q UD 05/27/18 09/24/18 History [Novolog Mix 70-30 U-100 Insuln] ipratropium-albuterol 3 ml INHALATION Q6HR PRN 05/27/18 09/24/18 History multivitamin with folic acid 1 tab PO DAILY 05/27/18 09/24/18 History [Thera] pantoprazole 40 mg PO DAILY 05/27/18 09/24/18 History pravastatin 10 mg PO DAILY 05/27/18 09/24/18 History sennosides-docusate sodium [Senna 1 tab PO BID 05/27/18 09/24/18 History Plus] atorvastatin 40 mg PO DAILY 09/24/18 09/24/18 History Exam Vital signs: Vital Signs 09/25/18 16:00 09/25/18 20:00 09/25/18 20:23 Temperature 98.0 F 98 F Pulse Rate 77 89 Respiratory Rate 16 9 L 9 L Blood Pressure 162/93 H 167/78 H Pulse Oximetry 97 98 09/26/18 00:00 09/26/18 04:00 09/26/18 08:00 Temperature 98.9 F 98.1 F 97.8 F Pulse Rate 81 79 84 Respiratory Rate 18 18 18 Blood Pressure 173/76 H 164/78 H 169/101 H Pulse Oximetry 98 97 97 09/26/18 12:00 09/26/18 12:31 Temperature 97.8 F Pulse Rate 75 Respiratory Rate 18 Blood Pressure 164/78 H Pulse Oximetry 99 97 Intake & Output 09/25/18 09/26/18 09/26/18 18:59 06:59 18:59 Intake Total 1100 / 1100 2020 / 2020 1000 / 1000 Output Total 350 / 350 Balance 1100 / 1100 1670 / 1670 1000 / 1000 Weight 64.1 kg Intake: IV 1100 / 1100 1900 / 1900 1000 / 1000 NS Inj 1,000 ML @ 110 mls/hr IV 1000 / 1000 1900 / 1900 1000 / 1000 .CONT .Q9H6M [facility] Rx#:[id number] Rocephin Inj 1,000 MG In NS Inj 100 / 100 100 ML @ 200 mls/hr IV.SIG Q24H [facility] Rx#:[id number] Oral 120 / 120 Output: Urine 350 / 350 Other: # Voids 2 Date of Last Bowel Movement 09/24/18 09/24/18 09/24/18 Narrative: GENERAL: in NAD, SKIN: Warm and dry. HEAD: Atraumatic. Normocephalic. EYES: Pupils equal and round. No scleral icterus. ENT: No nasal bleeding or discharge. Mucous membranes pink and moist. NECK: Trachea midline. No JVD. CARDIOVASCULAR: Regular rate and rhythm. RESPIRATORY: No accessory muscle use. GASTROINTESTINAL: Abdomen soft, non-tender, nondistended. MUSCULOSKELETAL: Extremities without clubbing, cyanosis, or edema. No obvious deformities. NEUROLOGICAL: Awake and alert. No aphasia, fluent articulate, No facial asymmetry, OU 3-2mm, eomi, VFF, No drift, distal foot weakness right greater than left able to raise all 4 extremity gravity however, allodynia and hyperpathia in her feet, reduced light touch stocking distribution, reflexes 1+ plantarflex her no clonus gait not assessed secondary to fall risk PSYCHIATRIC: Appropriate mood and affect; insight and judgment normal. - Constitutional no acute distress - Routine HEENT Exam Head: Present: normocephalic Eye: Present: EOMI Results - Labs CBC & Chem 7: 09/26/18 07:29 09/26/18 07:20 Labs: Laboratory Results - last 24 hr 09/25/18 09/26/18 09/26/18 17:52 07:20 07:29 WBC 6.6 RBC 2.73 L Hgb 8.5 L Hct 26.6 L MCV 97.8 D MCH 31.2 MCHC 31.9 L RDW 17.7 H Plt Count 353 MPV 6.4 L Neut % (Auto) 44.1 Lymph % (Auto) 40.9 [place] % (Auto) 9.3 H Eos % (Auto) 4.7 H Baso % (Auto) 1.0 Neut # (Auto) 2.9 Lymph # (Auto) 2.7 [place] # (Auto) 0.6 Eos # (Auto) 0.3 Baso # (Auto) 0.1 WBC Differential . Differential Comment Auto diff final Sodium 146 H Potassium 4.2 Chloride 127 H Carbon Dioxide 11.1 L Anion Gap 8 BUN 39 H Creatinine 1.54 H Estimated GFR 41 L POC Glucose 124 H Random Glucose 97 Calcium 8.3 L Review/Management - Diagnosis (1) Generalized weakness Code(s): R53.1 - Weakness Status: Acute Current Visit: Yes (2) Complicated UTI (urinary tract infection) Code(s): N39.0 - Urinary tract infection, site not specified Status: Acute Current Visit: Yes (3) Diabetes mellitus with neuropathy Code(s): E11.40 - Type 2 diabetes mellitus with diabetic neuropathy, unspecified Status: Acute Current Visit: Yes (4) Chronic renal insufficiency Code(s): N18.9 - Chronic kidney disease, unspecified Status: Acute Current Visit: Yes (5) Peripheral artery disease Code(s): I73.9 - Peripheral vascular disease, unspecified Status: Acute Current Visit: Yes - Review/Management Plan: 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 She was treated with plasma exchange at that time. 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 Patient is not sure. This could be done in the outpatient setting Recommendations Follow her clinical course with treatment for the UTI suspect she should get better Blood sugar control Pain control seems to be a major factor If her symptoms persist would consider a course of plasma exchange; she would require a Vas-Cath and admission for 5-10 days. IVIG would be an alternative which would be a shorter course of treatment however with her underlying renal failure she is not a candidate for that therapy. Alternatively we can give her IV steroids however would need to monitor her glucose Follow exam
--- NOTE | 2018-09-27 08:55 | P.PNFP ---
Addendum entered and electronically signed by Miriam Yu MD, R2 09/27/18 10 :45: HTN: added amlodipine 5 mg daily yesterday but has resulted in minimal improvement in BP. May be increased outpatient, recommend monitoring. Original Note: Subjective Interval history: Patient states that this AM she feels very constipated. Has not had a BM for the last 5 days. Told nursing yesterday, was given milk of magnesia. States that it usually work but this time it didn't. Having abdominal pain that is diffuse secondary to this. Denies n/v. States weakness is a bit improved today. States she has tingling in her legs that is painful but not more than what she experiences chronically. <Miriam Yu N - 09/27/18 10:45> Results - Labs Result diagrams: 09/26/18 07:29 09/26/18 07:20 <Shun Haley - 09/27/18 11:57> Abnormal lab results 09/26/18 09/27/18 09/27/18 Range/Units 16:27 08:18 11:43 POC Glucose 119 H 119 H 171 H (68-110) mg/dl <Shun Haley - 09/27/18 11:57> Abnormal lab results 09/26/18 09/27/18 Range/Units 16:27 08:18 POC Glucose 119 H 119 H (68-110) mg/dl <Miriam Yu - 09/27/18 08:55> Physical Exam Vital signs: Vital Signs 09/26/18 12:00 09/26/18 12:31 09/26/18 16:00 Temperature 97.8 F 97.9 F Pulse Rate 75 75 Respiratory Rate 18 16 Blood Pressure 164/78 H 192/83 H Pulse Oximetry 99 97 98 09/26/18 20:00 09/27/18 00:00 09/27/18 03:51 Temperature 98.7 F 98.3 F 98 F Pulse Rate 67 74 68 Respiratory Rate 17 18 19 Blood Pressure 147/67 H 136/62 142/64 H Pulse Oximetry 95 95 98 09/27/18 08:00 09/27/18 09:52 Temperature 97.9 F Pulse Rate 75 Respiratory Rate 18 Blood Pressure 182/78 H Pulse Oximetry 98 97 Intake & Output 09/26/18 09/27/1809/27/18 18:59 06:59 18:59 Intake Total 1000 / 1000 Output Total 1999 Balance -1000 Weight 63.7 kg Intake: IV 1000 / 1000 NS Inj 1,000 ML @ 110 mls/hr IV 1000 / 1000 .CONT .Q9H6M [facility] Rx#:[id number] Output: Urine 1999 Other: # Voids 8 Date of Last Bowel Movement 09/24/18 09/24/18 09/24/18 <Shun Haley - 09/27/18 11:57> Vital Signs 09/26/18 12:00 09/26/18 12:31 09/26/18 16:00 Temperature 97.8 F 97.9 F Pulse Rate 75 75 Respiratory Rate 18 16 Blood Pressure 164/78 H 192/83 H Pulse Oximetry 99 97 98 09/26/18 20:00 09/27/18 00:00 09/27/18 03:51 Temperature 98.7 F 98.3 F 98 F Pulse Rate 67 74 68 Respiratory Rate 17 18 19 Blood Pressure 147/67 H 136/62 142/64 H Pulse Oximetry 95 95 98 Intake & Output 09/26/18 09/27/18 09/27/18 18:59 06:59 18:59 Intake Total 1000 / 1000 Output Total 1999 Balance -1000 / 1000 Weight 63.7 kg Intake: IV 1000 / 1000 NS Inj 1,000 ML @ 110 mls/hr IV 1000 / 1000 .CONT .Q9H6M [facility] Rx#:[id number] Output: Urine 1999 Other: # Voids 8 Date of Last Bowel Movement 09/24/18 09/24/18 <Miriam Yu - 09/27/18 08:55> Narrative: GENERAL: This is a pleasant black woman who is lying in bed in mild discomfort, complaining of belly pain from constipation. SKIN: Warm and dry. HEAD: Atraumatic. Normocephalic. NECK: Trachea midline. No JVD. CARDIOVASCULAR: Regular rate and rhythm. RESPIRATORY: No accessory muscle use. GASTROINTESTINAL: Abdomen firm, non-tender, nondistended. MUSCULOSKELETAL: Extremities without clubbing, cyanosis, or edema. NEUROLOGICAL: Awake and alert. Motor strength not assessed this AM. PSYCHIATRIC: Appropriate mood and affect; insight and judgment normal. <Miriam Yu 09/27/18 10:45> - Urinary Catheter Management Straight Cath placed during this visit: no <Shun Haley - 09/27/18 11:57> yes, but has since been removed by the nurse <Miriam Yu N - 09/27/18 10:45> Reason for continuing: Decision to DC catheter <Miriam Yu - 09/27/18 08:55 > Insertion date: 09/24/18 <Miriam Yu - 09/27/18 08:55> Insertion time: 12:11 <Miriam Yu - 09/27/18 08:55> Removal date: 09/24/18 <Miriam Yu - 09/27/18 08:55> Removal time: 12:12 <Miriam Yu N - 09/27/18 08:55> Assessment and Plan - Assessment (1) Generalized weakness Code(s): R53.1 - Weakness Status: Acute Plan: Patient is complaining of generalized weakness, which has made her bedbound for the past 2 days. Generalized deconditioning versus infection recovery versus CIDP. UA suggestive of UTI but urine cx showed no growth. Neurology consulted due to patient's hx of Guillain [place] - From my understanding, if sx last for 4 weeks, it could be CIDP and would inpatient treatment w/plasma exchange, IVIG, or IV steroids. Will plan for outpatient monitoring and further studies w/neurology in 2-4 wks. Spoke w/Dr. Blake pino who agreed to see patient outpatient. PT seeing patient, recommend inpatient rehab for PT and OT. (2) Complicated UTI (urinary tract infection) Code(s): N39.0 - Urinary tract infection, site not specified Status: Acute Plan: S/p Rocephin for 2 days Con't Ciprofloxacin for a total course of abx tx 7 days (3) Sacral ulcer Code(s): L98.429 - Non-pressure chronic ulcer of back with unspecified severity Status: Acute Plan: Shallow sacral ulcer with moderate skin breakdown, approximately 1 cm in diameter. Wound ostomy nurse consulted for recommendations on wound care and dressing. Patient repositioning every 2 hours. (4) Diabetes mellitus with neuropathy Code(s): E11.40 - Type 2 diabetes mellitus with diabetic neuropathy, unspecified Status: Acute Plan: Accuchecks and low dose SSI ordered. Hypoglycemia protocol ordered. Gabapentin 600mg PO BID for diabetic neuropathy. (5) Chronic renal insufficiency Code(s): N18.9 - Chronic kidney disease, unspecified Status: Acute Plan: Stable. Avoid nephrotoxic medications. 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 (8) Nutrition, metabolism, and development symptoms Code(s): R63.8 - Other symptoms and signs concerning food and fluid intake Status: Acute Plan: Fluids: none Electrolytes: PRN Nutrition: Diabetic diet (9) DVT prophylaxis Status: Acute Plan: SCD and compression hose. <Miriam Yu - 09/27/18 10:33> - Attending Attestation See the residents documentation for details. I saw and evaluated the patient regarding the east portions of this evaluation and agree with the residents findings and plans as written. Parts of this note were created using [employer] voice recognition software program. While efforts were made to correct any mistakes made by this software, some mistakes, errors, and omissions may remain in the final note that were not caught when the note was originally created. Plan of care was discussed and agreed upon with the patient as specifically documented in the above note. An opportunity to ask questions with explanation was provided. Patient voiced understanding on all information reviewed and discussed. <Shun Haley - 09/27/18 11:57>
[2018-09-27] MEDS: amLODIPine 5 MG Tablet PO SCH (10:03)
[2018-09-27] MEDS: Ciprofloxacin 500 MG Tablet PO SCH ×2 (10:03→22:11)
[2018-09-27] MEDS: Gabapentin 300 MG Capsule PO SCH ×2 (10:03→22:11)
[2018-09-27] MEDS: Sodium Chloride 0.9% 2 ML Flush BID IV.FLUSH SCH ×2 (10:04→22:12)
[2018-09-27] MEDS: Insulin NovoLOG Aspart Correctional Sugar Inj SQ SCH ×4 (10:04→22:11)
--- NOTE | 2018-09-27 10:17 | P.PNNEU ---
Subjective Subjective Comments: feels stronger, less pain, no cp/dyspnea Active Medications: Active Medications Acetaminophen (Tylenol) 650 mg PO Q4H PRN PRN Reason: Temp > 100.4 Hydrocodone Bitart/Acetaminophen ([place] 10/325) 1 tab PO Q6H PRN PRN Reason: Neuropathic pain 1-10 Last Admin: 09/27/18 05:09 Dose: 1 tab Al Hydroxide/Mg Hydroxide (Milk Of Magnesia Liq) 30 ml PO Q12H PRN PRN Reason: Mild Constipation Last Admin: 09/27/18 02:21 Dose: 30 ml Amlodipine Besylate (Norvasc) 5 mg PO DAILY [facility] Last Admin: 09/27/18 10:03 Dose: 5 mg Aspirin (Ecotrin) 81 mg PO DAILY [facility] Last Admin: 09/27/18 10:03 Dose: 81 mg Atorvastatin Calcium (Lipitor) 40 mg PO DAILY [facility] Last Admin: 09/27/18 10:03 Dose: 40 mg Ciprofloxacin HCl (Cipro) 500 mg PO Q12HR [facility] Last Admin: 09/27/18 10:03 Dose: 500 mg Dextrose (D50w Vial) 50 ml IV.PUSH UNSCH PRN PRN Reason: PER HYPOGLYCEMIA PROTOCOL Gabapentin (Neurontin) 600 mg PO BID [facility] Last Admin: 09/27/18 10:03 Dose: 600 mg Glucagon (Glucagon Inj) 1 mg OTHER PRN PRN PRN Reason: for Hypoglycemia Protocol Insulin Aspart (Novolog Insulin Correctional Sugar Inj) 0 unit SQ ACHS [facility]; Protocol Last Admin: 09/27/18 10:04 Dose: Not Given Lactulose (Lactulose Liq) 30 ml PO DAILY PRN PRN Reason: SEVERE CONSITIPATION Last Admin: 09/27/18 10:02 Dose: 30 ml Ondansetron HCl (Zofran Inj) 4 mg IV.PUSH Q6H PRN PRN Reason: NAUSEA OR VOMITING Last Admin: 09/25/18 09:27 Dose: 4 mg Ptownmed( Multivitamin With Folic Acid 1 Tab) 0 each PO DAILY [facility] Sennosides (Senokot) 17.2 mg PO Q12H PRN PRN Reason: Moderate Constipation Sodium Biphosphate/Sodium Phosphate (Fleets Enema (Adult)) 118 ml RECTAL ONCE ONE Stop: 09/27/18 10:01 Sodium Chloride (Ns Flush) 2 ml IV.FLUSH PRN PRN PRN Reason: FLUSH AFTER USING IV ACCESS Sodium Chloride (Ns Flush) 2 ml IV.FLUSH BID [facility] Last Admin: 09/27/18 10:04 Dose: 2 ml Allergies/Adverse Reactions: Allergies Allergy/AdvReac Type Severity Reaction Status Date / Time clonidine AdvReac Severe Chest Pain Verified 05/24/18 07:24 metformin AdvReac Severe Numbness Verified 05/24/18 07:24 Review of Systems All other systems reviewed negative except as stated in HPI Physical Exam Vital signs: Vital Signs 09/26/18 12:00 09/26/18 12:31 09/26/18 16:00 Temperature 97.8 F 97.9 F Pulse Rate 75 75 Respiratory Rate 18 16 Blood Pressure 164/78 H 192/83 H Pulse Oximetry 99 97 98 09/26/18 20:00 09/27/18 00:00 09/27/18 03:51 Temperature 98.7 F 98.3 F 98 F Pulse Rate 67 74 68 Respiratory Rate 17 18 19 Blood Pressure 147/67 H 136/62 142/64 H Pulse Oximetry 95 95 98 09/27/18 08:00 09/27/18 09:52 Temperature 97.9 F Pulse Rate 75 Respiratory Rate 18 Blood Pressure 182/78 H Pulse Oximetry 98 97 Intake & Output 09/26/18 09/27/18 09/27/18 18:59 06:59 18:59 Intake Total 1000 / 1000 Output Total 1999 Balance -1000 / -1000 Weight 63.7 kg Intake: IV 1000 / 1000 NS Inj 1,000 ML @ 110 mls/hr IV 1000 / 1000 .CONT .Q9H6M [facility] Rx#:[id number] Output: Urine 1999 Other: # Voids 8 Date of Last Bowel Movement 09/24/18 09/24/18 09/24/18 Narrative: GENERAL: in NAD, SKIN: Warm and dry. HEAD: Atraumatic. Normocephalic. EYES: Pupils equal and round. No scleral icterus. ENT: No nasal bleeding or discharge. Mucous membranes pink and moist. NECK: Trachea midline. No JVD. CARDIOVASCULAR: Regular rate and rhythm. RESPIRATORY: No accessory muscle use. GASTROINTESTINAL: Abdomen soft, non-tender, nondistended. MUSCULOSKELETAL: Extremities without clubbing, cyanosis, or edema. No obvious deformities. NEUROLOGICAL: Awake and alert. No aphasia, fluent articulate, No facial asymmetry, OU 3-2mm, eomi, VFF, No drift, distal foot weakness right greater than left-stronger today able to raise all 4 extremity gravity however, allodynia and hyperpathia in her feet, reduced light touch stocking distribution , reflexes 1+ plantarflex her no clonus gait not assessed secondary to fall risk PSYCHIATRIC: Appropriate mood and affect; insight and judgment normal. - Constitutional no acute distress - Routine HEENT Exam Head: Present: normocephalic Eye: Present: EOMI - Urinary Catheter Management Straight Cath placed during this visit: yes, but has since been removed by the nurse Reason for continuing: Decision to DC catheter Insertion date: 09/24/18 Insertion time: 12:11 Removal date: 09/24/18 Removal time: 12:12 Objective Laboratory Results - last 24 hr 09/26/18 09/27/18 16:27 08:18 POC Glucose 119 H 119 H Microbiology 09/24/18 12:45 Aerobic Blood Culture - Preliminary Blood - Peripheral No growth in 2 days Anaerobic Blood Culture - Preliminary No growth in 2 days 09/24/18 12:40 Aerobic Blood Culture - Preliminary Blood - Peripheral No growth in 2 days Anaerobic Blood Culture - Preliminary No growth in 2 days 09/24/18 12:10 Urine Culture - Final Clean Catch Urine No growth in 48 hours Review/Management - Diagnosis (1) Generalized weakness Code(s): R53.1 - Weakness Status: Acute Current Visit: Yes (2) Complicated UTI (urinary tract infection) Code(s): N39.0 - Urinary tract infection, site not specified Status: Acute Current Visit: Yes (3) Diabetes mellitus with neuropathy Code(s): E11.40 - Type 2 diabetes mellitus with diabetic neuropathy, unspecified Status: Acute Current Visit: Yes (4) Chronic renal insufficiency Code(s): N18.9 - Chronic kidney disease, unspecified Status: Acute Current Visit: Yes (5) Peripheral artery disease Code(s): I73.9 - Peripheral vascular disease, unspecified Status: Acute Current Visit: Yes - Review/Management Plan: 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 She was treated with plasma exchange at that time. 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 Patient is not sure. This could be done in the outpatient setting Recommendations stronger today. feels better ok to d/c and outpatient f/u ncv/emg d/w medical
[2018-09-27] MEDS ORDERED: Sod Phosphate/Sod Biphosphate (Adult) Enema 133 ML Bottle RECTAL ONE (10:45)
--- NOTE | 2018-09-28 08:36 | P.PNNEU ---
Subjective Subjective Comments: No cp, no dyspnea, no tompkins, no focal weakness, no vision loss. patient feels a lot stronger Active Medications: Active Medications Acetaminophen (Tylenol) 650 mg PO Q4H PRN PRN Reason: Temp > 100.4 Hydrocodone Bitart/Acetaminophen ([employer] 10/325) 1 tab PO Q6H PRN PRN Reason: Neuropathic pain 1-10 Last Admin: 09/28/18 05:22 Dose: 1 tab Al Hydroxide/Mg Hydroxide (Milk Of Magnesia Liq) 30 ml PO Q12H PRN PRN Reason: Mild Constipation Last Admin: 09/27/18 02:21 Dose: 30 ml Amlodipine Besylate (Norvasc) 5 mg PO DAILY [facility] Last Admin: 09/27/18 10:03 Dose: 5 mg Aspirin (Ecotrin) 81 mg PO DAILY [facility] Last Admin: 09/27/18 10:03 Dose: 81 mg Atorvastatin Calcium (Lipitor) 40 mg PO DAILY [facility] Last Admin: 09/27/18 10:03 Dose: 40 mg Ciprofloxacin HCl (Cipro) 500 mg PO Q12HR [facility] Last Admin: 09/27/18 22:11 Dose: 500 mg Dextrose (D50w Vial) 50 ml IV.PUSH UNSCH PRN PRN Reason: PER HYPOGLYCEMIA PROTOCOL Gabapentin (Neurontin) 600 mg PO BID [facility] Last Admin: 09/27/18 22:11 Dose: 600 mg Glucagon (Glucagon Inj) 1 mg OTHER PRN PRN PRN Reason: for Hypoglycemia Protocol Insulin Aspart (Novolog Insulin Correctional Sugar Inj) 0 unit SQ ACHS [facility]; Protocol Last Admin: 09/27/18 22:11 Dose: 3 unit Lactulose (Lactulose Liq) 30 ml PO DAILY PRN PRN Reason: SEVERE CONSITIPATION Last Admin: 09/27/18 18:39 Dose: 30 ml Ondansetron HCl (Zofran Inj) 4 mg IV.PUSH Q6H PRN PRN Reason: NAUSEA OR VOMITING Last Admin: 09/25/18 09:27 Dose: 4 mg Ptownmed( Multivitamin With Folic Acid 1 Tab) 0 each PO DAILY [facility] Sennosides (Senokot) 17.2 mg PO Q12H PRN PRN Reason: Moderate Constipation Sodium Chloride (Ns Flush) 2 ml IV.FLUSH PRN PRN PRN Reason: FLUSH AFTER USING IV ACCESS Sodium Chloride (Ns Flush) 2 ml IV.FLUSH BID [facility] Last Admin: 09/27/18 22:12 Dose: 2 ml Allergies/Adverse Reactions: Allergies Allergy/AdvReac Type Severity Reaction Status Date / Time clonidine AdvReac Severe Chest Pain Verified 05/24/18 07:24 metformin AdvReac Severe Numbness Verified 05/24/18 07:24 Review of Systems All other systems reviewed negative except as stated in HPI Physical Exam Vital signs: Vital Signs 09/27/18 09:52 09/27/18 12:00 09/27/18 12:25 Temperature 97.9 F Pulse Rate 94 H 102 H Respiratory Rate 17 Blood Pressure 166/83 H 118/65 Pulse Oximetry 97 97 09/27/18 15:56 09/27/18 20:00 09/28/18 00:00 Temperature 98.2 F 99.0 F 98.9 F Pulse Rate 90 94 H 86 Respiratory Rate 18 17 16 Blood Pressure 179/79 H 164/72 H 112/57 L Pulse Oximetry 96 97 96 09/28/18 04:00 Temperature 99.0 F Pulse Rate 77 Respiratory Rate 16 Blood Pressure 134/62 Pulse Oximetry 97 Intake & Output 09/27/18 09/28/18 09/28/18 18:59 06:59 18:59 Intake Total 480 / 480 1150 / 1150 Output Total 600 / 600 Balance -120 / -120 1150 / 1150 Weight 64 kg Intake: Oral 480 / 480 1150 / 1150 Output: Urine 600 / 600 Other: # Incontinent Voids 5 Date of Last Bowel Movement 09/27/18 09/27/18 # Bowel Movements 1 4 Narrative: GENERAL: in NAD, SKIN: Warm and dry. HEAD: Atraumatic. Normocephalic. EYES: Pupils equal and round. No scleral icterus. ENT: No nasal bleeding or discharge. Mucous membranes pink and moist. NECK: Trachea midline. No JVD. CARDIOVASCULAR: Regular rate and rhythm. RESPIRATORY: No accessory muscle use. GASTROINTESTINAL: Abdomen soft, non-tender, nondistended. MUSCULOSKELETAL: Extremities without clubbing, cyanosis, or edema. No obvious deformities. NEUROLOGICAL: Awake and alert. No aphasia, oriented x3 fluent articulate, No facial asymmetry, OU 3-2mm, eomi, VFF, No drift, distal foot weakness right greater than left-stronger today able to raise all 4 extremity gravity however, less allodynia and hyperpathia in her feet, reduced light touch stocking distribution, reflexes 1+ plantarflex her no clonus gait not assessed secondary to fall risk PSYCHIATRIC: Appropriate mood and affect; insight and judgment normal. - Constitutional no acute distress - Routine HEENT Exam Head: Present: normocephalic Eye: Present: EOMI - Urinary Catheter Management Straight Cath placed during this visit: yes, but has since been removed by the nurse Reason for continuing: Decision to DC catheter Insertion date: 09/24/18 Insertion time: 12:11 Removal date: 09/24/18 Removal time: 12:12 Objective Laboratory Results - last 24 hr 09/27/18 09/27/18 09/27/18 08:18 11:43 17:57 POC Glucose 119 H 171 H 172 H 09/27/18 09/28/18 20:25 07:24 POC Glucose 213 H 130 H Microbiology 09/24/18 12:45 Aerobic Blood Culture - Preliminary Blood - Peripheral No growth in 3 days Anaerobic Blood Culture - Preliminary No growth in 3 days 09/24/18 12:40 Aerobic Blood Culture - Preliminary Blood - Peripheral No growth in 3 days Anaerobic Blood Culture - Preliminary No growth in 3 days Review/Management - Diagnosis (1) Generalized weakness Code(s): R53.1 - Weakness Status: Acute Current Visit: Yes (2) Complicated UTI (urinary tract infection) Code(s): N39.0 - Urinary tract infection, site not specified Status: Acute Current Visit: Yes (3) Diabetes mellitus with neuropathy Code(s): E11.40 - Type 2 diabetes mellitus with diabetic neuropathy, unspecified Status: Acute Current Visit: Yes (4) Chronic renal insufficiency Code(s): N18.9 - Chronic kidney disease, unspecified Status: Acute Current Visit: Yes (5) Peripheral artery disease Code(s): I73.9 - Peripheral vascular disease, unspecified Status: Acute Current Visit: Yes - Review/Management Plan: 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 She was treated with plasma exchange at that time. 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 Patient is not sure. This could be done in the outpatient setting Recommendations Strength continues to improve May only require home therapy and so inpatient rehab Defer to physical therapy ok to d/c and outpatient f/u Outpatient Ncv/emg
--- NOTE | 2018-09-28 08:44 | P.PNFP ---
Results - Labs Result diagrams: 09/26/18 07:29 09/26/18 07:20 Abnormal lab results 09/27/18 09/27/18 09/27/18 Range/Units 11:43 17:57 20:25 POC Glucose 171 H 172 H 213 H (68-110) mg/dl 09/28/18 Range/Units 07:24 POC Glucose 130 H (68-110) mg/dl Physical Exam Vital signs: Vital Signs 09/27/18 09:52 09/27/18 12:00 09/27/18 12:25 Temperature 97.9 F Pulse Rate 94 H 102 H Respiratory Rate 17 Blood Pressure 166/83 H 118/65 Pulse Oximetry 97 97 09/27/18 15:56 09/27/18 20:00 09/28/18 00:00 Temperature 98.2 F 99.0 F 98.9 F Pulse Rate 90 94 H 86 Respiratory Rate 18 17 16 Blood Pressure 179/79 H 164/72 H 112/57 L Pulse Oximetry 96 97 96 09/28/18 04:00 Temperature 99.0 F Pulse Rate 77 Respiratory Rate 16 Blood Pressure 134/62 Pulse Oximetry 97 Intake & Output 09/27/18 09/28/18 09/28/18 18:59 06:59 18:59 Intake Total 480 / 480 1150 / 1150 Output Total 600 / 600 Balance -120 / -120 1150 / 1150 Weight 64 kg Intake: Oral 480 / 480 1150 / 1150 Output: Urine 600 / 600 Other: # Incontinent Voids 5 Date of Last Bowel Movement 09/27/18 09/27/18 # Bowel Movements 1 4 - Urinary Catheter Management Straight Cath placed during this visit: yes, but has since been removed by the nurse Reason for continuing: Decision to DC catheter Insertion date: 09/24/18 Insertion time: 12:11 Removal date: 09/24/18 Removal time: 12:12 Assessment and Plan - Assessment (1) Generalized weakness Code(s): R53.1 - Weakness Status: Acute Plan: Patient is complaining of generalized weakness, which has made her bedbound for the past 2 days. Generalized deconditioning versus infection recovery versus CIDP. UA suggestive of UTI but urine cx showed no growth. Neurology consulted due to patient's hx of Guillain [place] - From my understanding, if sx last for 4 weeks, it could be CIDP and would inpatient treatment w/plasma exchange, IVIG, or IV steroids. Will plan for outpatient monitoring and further studies w/neurology in 2-4 wks. Spoke w/Dr. Blake pino AM who agreed to see patient outpatient. PT seeing patient, recommend inpatient rehab for PT and OT. (2) Complicated UTI (urinary tract infection) Code(s): N39.0 - Urinary tract infection, site not specified Status: Acute Plan: S/p Rocephin for 2 days Con't Ciprofloxacin for a total course of abx tx 7 days (3) Sacral ulcer Code(s): L98.429 - Non-pressure chronic ulcer of back with unspecified severity Status: Acute Plan: Shallow sacral ulcer with moderate skin breakdown, approximately 1 cm in diameter. Wound ostomy nurse consulted for recommendations on wound care and dressing. Patient repositioning every 2 hours. (4) Diabetes mellitus with neuropathy Code(s): E11.40 - Type 2 diabetes mellitus with diabetic neuropathy, unspecified Status: Acute Plan: Accuchecks and low dose SSI ordered. Hypoglycemia protocol ordered. Gabapentin 600mg PO BID for diabetic neuropathy. (5) Chronic renal insufficiency Code(s): N18.9 - Chronic kidney disease, unspecified Status: Acute Plan: Stable. Avoid nephrotoxic medications. 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 (8) Nutrition, metabolism, and development symptoms Code(s): R63.8 - Other symptoms and signs concerning food and fluid intake Status: Acute Plan: Fluids: none Electrolytes: PRN Nutrition: Diabetic diet (9) DVT prophylaxis Status: Acute Plan: SCD and compression hose. - Assessment and Plan See the residents documentation for details. I saw and evaluated the patient regarding the east portions of this evaluation and agree with the residents findings and plans as written. Parts of this note were created using [employer] voice recognition software program. While efforts were made to correct any mistakes made by this software, some mistakes, errors, and omissions may remain in the final note that were not caught when the note was originally created. Plan of care was discussed and agreed upon with the patient as specifically documented in the above note. An opportunity to ask questions with explanation was provided. Patient voiced understanding on all information reviewed and discussed.
--- NOTE | 2018-09-28 09:46 | P.PNFP ---
Subjective Interval history: Patient seen and examined this morning. She has no complaints at this time. She states that her constipation resolved yesterday after the fleet enema and she no longer has any abdominal pain. She worked with PT yesterday and was able to sit up on the side of the bed with assistance, which she states she would not have been able to do on admission. Denies dysuria, back pain, nausea, vomiting, leg swelling or pain. <Deann Nunez - 09/28/18 09:46> Results - Labs Result diagrams: 09/26/18 07:29 09/26/18 07:20 <Shun Haley - 09/28/18 09:51> Abnormal lab results 09/27/18 09/27/18 09/27/18 Range/Units 11:43 17:57 20:25 POC Glucose 171 H 172 H 213 H (68-110) mg/dl 09/28/18 Range/Units 07:24 POC Glucose 130 H (68-110) mg/dl <Shun Haley - 09/28/18 09:51> Abnormal lab results 09/27/18 09/27/18 09/27/18 Range/Units 11:43 17:57 20:25 POC Glucose 171 H 172 H 213 H (68-110) mg/dl 09/28/18 Range/Units 07:24 POC Glucose 130 H (68-110) mg/dl <Deann Nunez - 09/28/18 09:46> Physical Exam Vital signs: Vital Signs 09/27/18 09:52 09/27/18 12:00 09/27/18 12:25 Temperature 97.9 F Pulse Rate 94 H 102 H Respiratory Rate 17 Blood Pressure 166/83 H 118/65 Pulse Oximetry 97 97 09/27/18 15:56 09/27/18 20:00 09/28/18 00:00 Temperature 98.2 F 99.0 F 98.9 F Pulse Rate 90 94 H 86 Respiratory Rate 18 17 16 Blood Pressure 179/79 H 164/72 H 112/57 L Pulse Oximetry 96 97 96 09/28/18 04:00 09/28/18 08:00 Temperature 99.0 F 98.1 F Pulse Rate 77 74 Respiratory Rate 16 16 Blood Pressure 134/62 129/59 L Pulse Oximetry 97 98 Intake & Output 09/27/18 09/28/18 09/28/18 18:59 06:59 18:59 Intake Total 480 / 480 1150 / 1150 Output Total 600 / 600 Balance -120 / -120 1150 / 1150 Weight 64 kg Intake: Oral 480 / 480 1150 / 1150 Output: Urine 600 / 600 Other: # Incontinent Voids 5 Date of Last Bowel Movement 09/27/18 09/27/18 # Bowel Movements 1 4 <Shun Haley - 09/28/18 09:51> Vital Signs 09/27/18 09:52 09/27/18 12:00 09/27/18 12:25 Temperature 97.9 F Pulse Rate 94 H 102 H Respiratory Rate 17 Blood Pressure 166/83 H 118/65 Pulse Oximetry 97 97 09/27/18 15:56 09/27/18 20:00 09/28/18 00:00 Temperature 98.2 F 99.0 F 98.9 F Pulse Rate 90 94 H 86 Respiratory Rate 18 17 16 Blood Pressure 179/79 H 164/72 H 112/57 L Pulse Oximetry 96 97 96 09/28/18 04:00 09/28/18 08:00 Temperature 99.0 F 98.1 F Pulse Rate 77 74 Respiratory Rate 16 16 Blood Pressure 134/62 129/59 L Pulse Oximetry 97 98 Intake & Output 09/27/18 09/28/18 09/28/18 18:59 06:59 18:59 Intake Total 480 / 480 1150 / 1150 Output Total 600 / 600 Balance -120 / -120 1150 / 1150 Weight 64 kg Intake: Oral 480 / 480 1150 / 1150 Output: Urine 600 / 600 Other: # Incontinent Voids 5 Date of Last Bowel Movement 09/27/18 09/27/18 # Bowel Movements 1 4 <Deann Nunez - 09/28/18 09:46> Narrative: GENERAL: 68 year old F in NAD, resting comfortably in bed SKIN: Warm and dry. HEAD: Atraumatic. Normocephalic. CARDIOVASCULAR: Regular rate and rhythm. RESPIRATORY: No accessory muscle use. CTAB. GASTROINTESTINAL: Abdomen soft, non-tender, nondistended. MUSCULOSKELETAL: Extremities without clubbing, cyanosis, or edema. No obvious deformities. NEUROLOGICAL: Awake and alert. No aphasia, oriented x3. Distal foot weakness right greater than left-stronger today able to raise all 4 extremity gravity. Decreased hyperesthesia in her feet. <Deann Nunez - 09/28/18 09:46> - Urinary Catheter Management Straight Cath placed during this visit: no <Shun Haley - 09/28/18 09:51> yes, but has since been removed by the nurse <Deann Nunez Tj - 09/28/18 09:46> Reason for continuing: Decision to DC catheter <Deann Nunez - 09/28/18 09: 46> Insertion date: 09/24/18 <Deann Nunez - 09/28/18 09:46> Insertion time: 12:11 <Deann Nunez - 09/28/18 09:46> Removal date: 09/24/18 <Deann Nunez 09/28/18 09:46> Removal time: 12:12 <Deann Nunez - 09/28/18 09:46> Assessment and Plan - Assessment (1) Generalized weakness Code(s): R53.1 - Weakness Status: Acute Plan: Patient is complaining of generalized weakness, which has made her bedbound for the past 2 days. Generalized deconditioning versus infection recovery versus CIDP. UA suggestive of UTI but urine cx showed no growth. Neurology consulted. Will plan for outpatient monitoring and further studies w/ neurology in 2-4 wks. Spoke w/Dr. Lozano who agreed to see patient outpatient. PT seeing patient, recommend inpatient rehab for PT and OT. OT consulted, to see patient. CM awaiting OT consult to start approval process for [facility]. (2) Complicated UTI (urinary tract infection) Code(s): N39.0 - Urinary tract infection, site not specified Status: Acute Plan: S/p Rocephin for 2 days Con't Ciprofloxacin for a total course of abx tx 7 days (3) Sacral ulcer Code(s): L98.429 - Non-pressure chronic ulcer of back with unspecified severity Status: Acute Plan: Shallow sacral ulcer with moderate skin breakdown, approximately 1 cm in diameter. Wound ostomy nurse consulted for recommendations on wound care and dressing. Patient repositioning every 2 hours. (4) Diabetes mellitus with neuropathy Code(s): E11.40 - Type 2 diabetes mellitus with diabetic neuropathy, unspecified Status: Acute Plan: Accuchecks and low dose SSI ordered. Hypoglycemia protocol ordered. Gabapentin 600mg PO BID for diabetic neuropathy, decreased from TID due to patient's CKD. (5) Chronic renal insufficiency Code(s): N18.9 - Chronic kidney disease, unspecified Status: Acute Plan: Avoid nephrotoxic medications. 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 (8) Nutrition, metabolism, and development symptoms Code(s): R63.8 - Other symptoms and signs concerning food and fluid intake Status: Acute Plan: Fluids: none Electrolytes: PRN Nutrition: Diabetic diet (9) DVT prophylaxis Status: Acute Plan: SCD and compression hose. <Deann Nunez - 09/28/18 09:36> - Assessment and Plan Patient stable for discharge to inpatient rehab following OT consult. CM following case. <Deann Nunez - 09/28/18 09:46> - Attending Attestation See the residents documentation for details. I saw and evaluated the patient regarding the east portions of this evaluation and agree with the residents findings and plans as written. Parts of this note were created using [employer] voice recognition software program. While efforts were made to correct any mistakes made by this software, some mistakes, errors, and omissions may remain in the final note that were not caught when the note was originally created. Plan of care was discussed and agreed upon with the patient as specifically documented in the above note. An opportunity to ask questions with explanation was provided. Patient voiced understanding on all information reviewed and discussed. <Shun Haley - 09/28/18 09:51>
[2018-09-28] MEDS: Ciprofloxacin 500 MG Tablet PO SCH ×2 (10:01→20:50)
[2018-09-28] MEDS: amLODIPine 5 MG Tablet PO SCH (10:01)
[2018-09-28] MEDS: Insulin NovoLOG Aspart Correctional Sugar Inj SQ SCH ×4 (10:02→22:28)
[2018-09-28] MEDS: Gabapentin 300 MG Capsule PO SCH ×2 (10:02→20:51)
[2018-09-28] MEDS: Sodium Chloride 0.9% 2 ML Flush BID IV.FLUSH SCH ×2 (10:03→20:52)
[2018-09-29] MEDS: Insulin NovoLOG Aspart Correctional Sugar Inj SQ SCH ×2 (07:50→13:16)
[2018-09-29] MEDS: Ciprofloxacin 500 MG Tablet PO SCH (08:16)
[2018-09-29] MEDS: amLODIPine 5 MG Tablet PO SCH (08:16)
[2018-09-29] MEDS: Gabapentin 300 MG Capsule PO SCH (08:16)
[2018-09-29] MEDS: Sodium Chloride 0.9% 2 ML Flush BID IV.FLUSH SCH (08:16)
--- NOTE | 2018-09-29 13:27 | P.PNFP ---
Subjective Interval history: No new changes. Patient states the bottom of her feet are painful and that she was unable to sleep last night. CM waiting on insurance auth before D/C. Accepted by Doug. <Guy Yuclaudia Montero - 09/29/18 13:37> Results - Labs Result diagrams: 09/26/18 07:29 09/26/18 07:20 <Shun Haley - 09/29/18 14:10> Abnormal lab results 09/28/18 09/29/18 09/29/18 Range/Units 17:17 07:48 12:54 POC Glucose 133 H 118 H 159 H (68-110) mg/dl <Shun Haley - 09/29/18 14:10> Abnormal lab results 09/28/18 09/29/18 09/29/18 Range/Units 17:17 07:48 12:54 POC Glucose 133 H 118 H 159 H (68-110) mg/dl <Guy Yuclaudia Montero - 09/29/18 13:26> Physical Exam Vital signs: Vital Signs 09/28/18 16:00 09/28/18 20:00 09/29/18 00:00 Temperature 97.7 F 97.9 F 98.1 F Pulse Rate 79 71 69 Respiratory Rate 17 18 18 Blood Pressure 132/65 132/63 141/65 H Pulse Oximetry 98 97 97 09/29/18 04:00 09/29/18 08:00 09/29/18 12:00 Temperature 98.5 F 98.7 F 97.4 F L Pulse Rate 65 61 74 Respiratory Rate 18 18 18 Blood Pressure 119/56 L 123/63 128/85 Pulse Oximetry 97 97 97 Intake & Output 09/28/18 09/29/18 09/29/18 18:59 06:59 18:59 Intake Total 480 / 480 1450 / 1450 Output Total 600 / 600 975 / 975 Balance -120 / -120 475 / 475 Weight 63.1 kg Intake: Oral 480 / 480 1450 / 1450 Output: Urine 600 / 600 975 / 975 Other: Date of Last Bowel Movement 09/28/18 09/29/18 # Bowel Movements 1 2 <Shun Haley - 09/29/18 14:10> Vital Signs 09/28/18 16:00 09/28/18 20:00 09/29/18 00:00 Temperature 97.7 F 97.9 F 98.1 F Pulse Rate 79 71 69 Respiratory Rate 18 Blood Pressure 132/65 132/63 141/65 H Pulse Oximetry 98 97 97 09/29/18 04:00 09/29/18 08:00 09/29/18 12:00 Temperature 98.5 F 98.7 F 97.4 F L Pulse Rate 65 61 74 Respiratory Rate 18 Blood Pressure 119/56 L 123/63 128/85 Pulse Oximetry 97 97 97 Intake & Output 09/28/18 09/29/18 09/29/18 18:59 06:59 18:59 Intake Total 480 / 480 1450 / 1450 Output Total 600 / 600 975 / 975 Balance -120 / -120 475 / 475 Weight 63.1 kg Intake: Oral 480 / 480 1450 / 1450 Output: Urine 600 / 600 975 / 975 Other: Date of Last Bowel Movement 09/28/18 09/29/18 # Bowel Movements 1 2 <Miriam Yu - 09/29/18 13:26> Narrative: GENERAL: 68 year old F in NAD, resting comfortably in bed SKIN: Warm and dry. HEAD: Atraumatic. Normocephalic. CARDIOVASCULAR: Regular rate. RESPIRATORY: No accessory muscle use. CTAB. GASTROINTESTINAL: Abdomen nondistended. NEUROLOGICAL: Awake and alert. <Miriam Yu - 09/29/18 13:37> - Urinary Catheter Management Straight Cath placed during this visit: no <Shun Haley - 09/29/18 14:10> yes, but has since been removed by the nurse <Miriam Yu - 09/29/18 13:37> Reason for continuing: Decision to DC catheter <Miriam Yu - 09/29/18 13:26 > Insertion date: 09/24/18 <Miriam Yu - 09/29/18 13:26> Insertion time: 12:11 <Miriam Yu - 09/29/18 13:26> Removal date: 09/24/18 <Miriam Yu - 09/29/18 13:26> Removal time: 12:12 <Miriam Yu 09/29/18 13:26> Assessment and Plan - Assessment (1) Diabetes mellitus with neuropathy Code(s): E11.40 - Type 2 diabetes mellitus with diabetic neuropathy, unspecified Status: Acute Plan: Controlled. Accuchecks and low dose SSI ordered. Hypoglycemia protocol ordered. Gabapentin 600mg PO in the AM, 900 mg PO HS for diabetic neuropathy. - Decreased from TID due to patient's CKD. (2) Generalized weakness Code(s): R53.1 - Weakness Status: Acute Plan: Neurology consulted. Will plan for outpatient monitoring and further studies w/ neurology in 2-4 wks. Spoke w/Dr. Lozano who agreed to see patient outpatient. PT seeing patient, recommend inpatient rehab for PT and OT. OT consulted, to see patient. CM awaiting OT consult to start approval process for [facility]. (3) Complicated UTI (urinary tract infection) Code(s): N39.0 - Urinary tract infection, site not specified Status: Acute Plan: Con't Ciprofloxacin for a total course of abx tx 7 days (4) Sacral ulcer Code(s): L98.429 - Non-pressure chronic ulcer of back with unspecified severity Status: Acute Plan: Shallow sacral ulcer with moderate skin breakdown, approximately 1 cm in diameter. Wound ostomy nurse consulted for recommendations on wound care and dressing. Patient repositioning every 2 hours. (5) Chronic renal insufficiency Code(s): N18.9 - Chronic kidney disease, unspecified Status: Acute Plan: Avoid nephrotoxic medications. 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 (8) Nutrition, metabolism, and development symptoms Code(s): R63.8 - Other symptoms and signs concerning food and fluid intake Status: Acute Plan: Fluids: none Electrolytes: PRN Nutrition: Diabetic diet (9) DVT prophylaxis Status: Acute Plan: SCD and compression hose. <Miriam Yu N - 09/29/18 13:35> - Assessment and Plan Discharge Planning: Cleared for DC. Patient stable for discharge to inpatient rehab following OT consult. CM following case. <Miriam Yu N - 09/29/18 13:37> - Attending Attestation See the residents documentation for details. I saw and evaluated the patient regarding the east portions of this evaluation and agree with the residents findings and plans as written. Parts of this note were created using [employer] voice recognition software program. While efforts were made to correct any mistakes made by this software, some mistakes, errors, and omissions may remain in the final note that were not caught when the note was originally created. Plan of care was discussed and agreed upon with the patient as specifically documented in the above note. An opportunity to ask questions with explanation was provided. Patient voiced understanding on all information reviewed and discussed. <Shun Haley - 09/29/18 14:10>
[2018-09-29] MEDS ORDERED: Gabapentin 300 MG Capsule PO SCH (21:00)
--- NOTE | 2018-09-30 08:08 | P.DS ---
Date of admission: 09/24/18 14:13 Primary care physician: Kirit Vega MD, R3 Brief History from admission: 68-year-old female with history of diabetes and recurrent UTI presented to the ED for worsening generalized weakness for the past 2 days. She states that she is now unable to walk, because of this weakness. She sometimes experiences dizziness and lightheadedness when standing, but she has not had any recent falls. Denies headache, vertigo, loss of consciousness or head trauma. She states this weakness feels similar to the last time she was admitted to the hospital for bladder infection. She denies abdominal pain at this time, but admits to burning with urination and some increased urinary frequency. No notable blood in the urine. She does admit to occasional chills. No fever, nausea, vomiting, abdominal pain, back pain, chest pain, shortness of breath diarrhea or constipation. No sick contacts at home. She has had a history of multiple UTI in the past year and has been hospitalized at least once. She stated that she received IV antibiotics at that time and was discharged to an inpatient rehab facility. She also notes that she has a sacral ulcer from a prior hospital stay which is now well healing and taking care of by a home health nurse. Past medical hx: Healing sacral ulcer DM, diabetic neuropathy CKD PAD TIA Family hx: Mother of DM complications Father of [place] Social: Never smoker No EOTH No other drug use PCP: Dr. 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 Received Rocephin 1 g for two days, then transitioned to PO Levofloxacin for a total course of antibiotics 7 days (no WBC count, no left shift, urine culture grew no bacteria). 1/4 blood cultures grew staph epidermidis, which was determined to be a contaminant. The rest of her work-up ( CBC and CMP overall within normal limits. CT head showed no acute abnormalities. Chest x-ray showed no acute abnormalities). For her weakness, which was thought to be secondary to infection, PT was started. 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 Her Gabapentin dose was adjusted to 600 mg in the AM and 900 mg in the PM to help with symptomatic neuropathy that was interfering with her sleep. Based on PT recommendations, patient was discharged to inpatient [place] for further PT. - Time Spent with Patient Total time spent providing and/or coordinating discharge services: Greater than 30 minutes - Quality: VTE Deep Vein Thrombosis/Pulmonary Embolism Present on Admission: No Exam Vital signs: Vital Signs 09/29/18 12:00 Temperature 97.4 F L Pulse Rate 74 Respiratory Rate 18 Blood Pressure 128/85 Pulse Oximetry 97 Narrative: GENERAL: 68 year old F in NAD, resting comfortably in bed SKIN: Warm and dry. HEAD: Atraumatic. Normocephalic. CARDIOVASCULAR: Regular rate. RESPIRATORY: No accessory muscle use. CTAB. GASTROINTESTINAL: Abdomen nondistended. NEUROLOGICAL: Awake and alert. Results Procedures completed during hospitalization: None Labs on day of discharge: Labs from last 24 hours 09/29/18 12:54 POC Glucose 159 H Preliminary micro results at discharge 09/24/18 12:40 Aerobic Blood Culture - Preliminary Blood - Peripheral Staphylococcus epidermidis - Impressions ITS Impressions Chest X-Ray 09/24/18 11:22 CONCLUSION: No acute cardiopulmonary abnormality is identified. Head CT 09/24/18 11:22 CONCLUSION: 1. Negative CT Head non contrast. . Abdomen/Pelvis CT 09/25/18 00:00 CONCLUSION: 1. Mild indistinctness involving the right renal collecting system and ureter which could indicate infection or inflammatory change. It is noted percutaneous nephrostomy tube and ureteral stent have been removed. There is scarring involving the inferior pole of the right kidney. 2. The left kidney is unremarkable. Discharge Plan - Discharge Disposition Patient Disposition: [facility] Inpatient - Discharge Condition Condition: Stable - Discharge Order Discharge Orders: Discharge Order (Routine); Ordered 09/27/18 Ordered By: Miriam Yu - Discharge Details Anticipated Discharge Date: 09/27/18 - Physicians Team Primary Care Provider: Kirit Vega Attending Provider: Shun Haley Other Providers: Froilan Montalvo MD
[2018-09-30] MEDS ORDERED: Gabapentin 300 MG Capsule PO SCH (09:00)
== END 2018-09-29 14:41 ==
LOC: NEPC 10:54 → NEDA 10:54 → N04 16:52
PROVIDERS: ADMIT Family Medicine; ATTEND Family Medicine

== ENCOUNTER 2019-01-07 14:04 | Inpatient (IN) ==
--- NOTE | 2019-01-07 14:48 | ED ---
HPI General Chief Complaint: Dizziness Stated Complaint: Weakness/Dizziness Complaint Time Seen by Provider: 01/07/19 14:12 Source: patient Mode of arrival: ambulatory Limitations: no limitations History of Present Illness HPI Narrative: The patient is a 68-year-old -Dominican female who presents to the emergency department for dizziness. The patient notes a 2-3- day history of dizziness, described as lightheadedness and generalized weakness. The patient also complains of shortness of breath that is worse with exertion. 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 The patient is followed by the residents, sees Dr. Vega, states Dr. Díaz sent her to the emergency department for evaluation. The patient states she was scheduled to undergo left lower extremity surgery by Dr. Mauricio, vascular surgery, on Tuesday. The patient denies any chest pain, nausea, vomiting, diarrhea, but does note mild suprapubic discomfort. The patient also notes recent incontinence with difficulty making it to the bathroom secondary to incontinence with mild dysuria. The patient denies any new cough, fever, chills, or sweats. Symptoms are moderate and progressive. MD complaint: Reports dizziness Onset (ago): day(s) Timing: gradual onset Description: Reports lightheadedness History of similar episodes: No History of trauma: No Severity: moderate Relieving factors: nothing Exacerbating factors: exertion Associated symptoms: Reports shortness of breath, weakness and other Related Data Home Medications Medication Instructions Recorded Confirmed multivitamin with folic acid 1 tab PO DAILY 05/27/18 01/07/19 [Thera] docusate sodium [Colace] 100 mg PO DAILY 01/02/19 01/07/19 pravastatin 10 mg PO DAILY 01/02/19 01/07/19 diphenhydramine HCl [Benadryl] 25 mg PO DAILY 01/07/19 01/07/19 Previous Rx's Medication Instructions Recorded aspirin 325 mg PO DAILY #30 tab 10/11/18 ferrous sulfate [Iron (ferrous 325 mg PO DAILY #30 tab 10/11/18 sulfate)] hydrocodone-acetaminophen [[place]] 1 tab PO Q6HR PRN #0 tab 10/11/18 pantoprazole 40 mg PO DAILY #30 tab 10/11/18 pregabalin [Lyrica] 75 mg PO BID #60 cap 10/11/18 Allergies Allergy/AdvReac Type Severity Reaction Status Date / Time clonidine AdvReac Severe Chest Pain Verified 01/07/19 14:09 metformin AdvReac Severe Dizziness Verified 01/07/19 14:09 Review of Systems ROS: all other systems reviewed are negative [facility] Medical History Medical History 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 (Acute) Anemia (Acute) CHF (congestive heart failure) (Acute) CKD (chronic kidney disease), stage III (Acute) CRI (chronic renal insufficiency) (Acute) Cyst of right kidney (Acute) Diabetes (Acute) Foramen ovale (Acute) Gastroparesis (Acute) HTN (hypertension) (Acute) MDRO (multiple drug resistant organisms) resistance (Acute ~09/29/18) Neuropathy (Acute) PAD (peripheral artery disease) (Acute) PVD (peripheral vascular disease) (Acute) Pressure ulcer of left heel, unspecified stage (Acute) Risk for falls (Acute) TIA (transient ischemic attack) (Acute) Uses wheelchair (Acute) Weakness (Acute) Wears glasses (Acute) Surgical History Surgical History Hx of section (Acute) Hx of cystoscopy (Acute) Hx of extremity bypass graft (Acute) Family History Family History Father Cardiovascular disease Mother Diabetes Social History Social History Substance History: No History of Abuse Second Hand Smoke Exposure: No Smoking Status: Never smoker How Often Do You Have a Drink Containing Alcohol: Never Hx Recent Travel: No Recent Travel in [facility] within the Last 8 Weeks: No Recent Out of Country Travel within the Last 8 Weeks: No Immunization History Tetanus Immunization: Unsure Exam Narrative Exam Narrative: GENERAL: Awake, alert, pleasant 68-year-old female who appears older than her stated age. SKIN: Focused skin assessment warm/dry. HEAD: Atraumatic. Normocephalic. EYES: Pupils equal and round. Pallor of the lower conjunctive are noted. ENT: No nasal bleeding or discharge. Mucous membranes pink and moist. NECK: Trachea midline. No JVD. CARDIOVASCULAR: Regular, tachycardic with a heart rate of 100. Audible systolic murmur. RESPIRATORY: No accessory muscle use. Clear to auscultation. Breath sounds equal bilaterally. GASTROINTESTINAL: Abdomen soft, mild suprapubic discomfort. MUSCULOSKELETAL: No obvious deformities. Shiny complexion to the lower tibia/ fibula bilaterally. Back: No CVA tenderness. NEUROLOGICAL: Awake and alert. No obvious cranial nerve deficits. Motor grossly within normal limits. Normal speech. PSYCHIATRIC: Appropriate mood and affect; insight and judgment normal. Course Initial Documented Vital Signs Temperature 100.2 F H 01/07/19 14:07 Pulse Rate 101 H 01/07/19 14:07 Respiratory Rate 20 01/07/19 14:07 Blood Pressure 135/63 01/07/19 14:07 Pulse Oximetry 89 L 01/07/19 14:07 Last Documented Vital Signs Temperature 100.2 F H 01/07/19 14:07 Pulse Rate 84 01/07/19 14:09 Respiratory Rate 20 01/07/19 14:09 Blood Pressure 170/72 H 01/07/19 14:09 Pulse Oximetry 92 L 01/07/19 15:08 Medical Decision Making [facility] Narrative Medical decision making narrative: IV was established, labs are drawn and sent, and the patient was placed on cardiac telemetry monitoring and continuous pulse oximetry monitoring. EKG was ordered and interpreted. Chest x-ray was obtained. ABG was ordered. The patient was placed on oxygen via O2 nasal cannula to keep oxygen saturation greater than 90%. The patient was noted to be 88% on 2 L when I entered the room. Chest x-ray was unremarkable. ABG reveals hypoxia with methemoglobin of 9.8. Previous ABGs revealed normal methemoglobin. The patient's oxygen saturation did improve with O2 via nasal cannula. Patient's white count is elevated at 15.1, UA reveals innumerable WBCs with WBC clumps, creatinine 2.86. Therefore, patient was administered Rocephin 1 g intravenously. Patient does meet sepsis criteria with UTI and hypoxia. The patient's primary physician is Dr. Vega with the residents, therefore, the residents were paged for admission. The patient's d-dimer is mildly elevated at 0.64, however, CTA/nuclear med was held until further workup of methemoglobin was performed. The patient also meets sepsis criteria with elevated white count, UTI, and tachycardia. I discussed the patient with the resident who agreed with admission to Dr. Connell. The patient's potassium was 5.6, however, there was hemolysis. Patient will need repeat potassium level in the morning. Medical Screen Exam Complete: Yes Emergency Medical Condition: Yes Differential Diagnosis Differential Diagnosis: Differential diagnosis includes symptomatic anemia, lactic acidosis, hypoxia, sepsis, acute renal failure, pulmonary embolism, pleural effusion, congestive heart failure, pneumonia, DKA, uremia. Lab Data Result diagrams: 01/07/19 14:54 01/07/19 14:54 Lab Results 01/07/19 01/07/19 01/07/19 Range/Units 14:42 14:54 14:54 WBC 15.1 H (4.0-11.0) th/mm3 RBC 3.01 L (4.00-5.30) mil/mm3 Hgb 9.4 L (11.6-15.3) gm/dL Hct 30.3 L (35.0-46.0) % MCV 100.5 H (80.0-100.0) fL MCH 31.2 (27.0-34.0) pg MCHC 31.1 L (32.0-36.0) % RDW 16.0 (11.6-17.2) % Plt Count 549 H (150-450) th/mm3 MPV 7.9 (7.0-11.0) fL Prelim Diff (Auto) Slide review pending Neut % (Auto) 55.7 (16.0-70.0) % Lymph % (Auto) 28.5 (9.0-44.0) % Gregory % (Auto) 8.0 (0.0-8.0) % Eos % (Auto) 6.7 H (0.0-4.0) % Baso % (Auto) 1.1 (0.0-2.0) % Neut # (Auto) 8.4 H (1.8-7.7) th/mm3 Lymph # (Auto) 4.3 (1.0-4.8) th/mm3 Gregory # (Auto) 1.2 H (0.0-0.9) th/mm3 Eos # (Auto) 1.0 H (0.0-0.4) th/mm3 Baso # (Auto) 0.2 (0.0-0.2) th/mm3 WBC Differential Manual diff final Seg Neuts % (Manual) 63 (16-70) % Band Neuts % (Manual) 4 (0-6) % Lymphocytes % (Manual) 20 (9-44) % Monocytes % (Manual) 7 (0-8) % Eosinophils % (Manual) 4 (0-4) % Basophils % (Manual) 2 (0-2) % Abs Neuts (Manual) 10.1 H (1.8-7.7) th/mm3 Differential Comment . Platelet Estimate High H (Normal) Platelet Morphology Normal (Normal) PT (9.8-11.6) sec INR Ratio APTT (23.4-31.7) sec D-Dimer Quant (PE/DVT) (0.00-0.50) mg/L FEU Puncture Site Left radial Patient Temperature 98.6 O2 Saturation 88 L* (90-100) % ABG pH 7.19 L* (7.380-7.420) ABG pCO2 29 L (38-42) mmHg ABG pO2 186 H (61-120) mmHg ABG HCO3 10 L* (22-26) mmol/L ABG O2 Content 10.2 L (12.0-20.0) Vol % ABG Base Excess -16.2 L (-2-2) mmol/L ABG Methemoglobin 9.6 H* (0-2) % Melo Test Present Hemoglobin 7.9 L* (12.0-16.0) G/DL Carboxyhemoglobin 0.2 (0-4) % O2 Delivery Device Nasal cannula Liter Flow 5.00 L/M Critical Value Yes Sodium 142 (136-145) meq/L Potassium 5.6 H (3.5-5.1) meq/L Chloride 119 H (98-107) meq/L Carbon Dioxide 12.2 L (21.0-32.0) meq/L Anion Gap 11 (5-15) meq/L BUN 64 H (7-18) mg/dL Creatinine 2.86 H (0.50-1.00) mg/dL Estimated GFR 16 L (>89) mL/min Random Glucose 160 H (74-106) mg/dL Lactic Acid (0.4-2.0) mmol/L Calcium 8.9 (8.5-10.1) mg/dL Magnesium 2.2 (1.5-2.5) mg/dL Total Bilirubin 0.3 (0.2-1.0) mg/dL AST 30 (15-37) U/L ALT 19 (10-53) U/L Alkaline Phosphatase 94 (45-117) U/L Total Creatine Kinase 75 (26-192) U/L Troponin I 0.05 (0.02-0.05) ng/mL Total Protein 9.1 H (6.4-8.2) g/dL Albumin 3.2 L (3.4-5.0) g/dL Urine Color (Yellw/Straw) Urine Clarity (Clear) Urine pH (5.0-8.5) Ur Specific [place] (1.002-1.035) Urine Protein (Neg-Trace) mg/dL Urine Glucose (UA) (Negative) mg/dL Urine Ketones (Negative) mg/dL Urine Occult Blood (Negative) Urine Nitrate (Negative) Urine Bilirubin (Negative) Urine Ictotest (Negative) Urine Urobilinogen (Less than 2) mg/dL Ur Leukocyte Esterase (Negative) Urine RBC (0-3) /hpf Urine WBC (0-5) /hpf Urine WBC Clumps (None) Ur Squamous Epith Cells (0-5) /hpf Micro UA Comment Ur Microscopic Review Urine Culture Comments Blood Type 01/07/19 01/07/19 01/07/19 Range/Units 15:14 16:40 16:40 WBC (4.0-11.0) th/mm3 RBC (4.00-5.30) mil/mm3 Hgb (11.6-15.3) gm/dL Hct (35.0-46.0) % MCV (80.0-100.0) fL MCH (27.0-34.0) pg MCHC (32.0-36.0) % RDW (11.6-17.2) % Plt Count (150-450) th/mm3 MPV (7.0-11.0) fL Prelim Diff (Auto) Neut % (Auto) (16.0-70.0) % Lymph % (Auto) (9.0-44.0) % Gregory % (Auto) (0.0-8.0) % Eos % (Auto) (0.0-4.0) % Baso % (Auto) (0.0-2.0) % Neut # (Auto) (1.8-7.7) th/mm3 Lymph # (Auto) (1.0-4.8) th/mm3 Gregory # (Auto) (0.0-0.9) th/mm3 Eos # (Auto) (0.0-0.4) th/mm3 Baso # (Auto) (0.0-0.2) th/mm3 WBC Differential Seg Neuts % (Manual) (16-70) % Band Neuts % (Manual) (0-6) % Lymphocytes % (Manual) (9-44) % Monocytes % (Manual) (0-8) % Eosinophils % (Manual) (0-4) % Basophils % (Manual) (0-2) % Abs Neuts (Manual) (1.8-7.7) th/mm3 Differential Comment Platelet Estimate (Normal) Platelet Morphology (Normal) PT 10.0 (9.8-11.6) sec INR 1.0 Ratio APTT 28.7 (23.4-31.7) sec D-Dimer Quant (PE/DVT) 0.64 H (0.00-0.50) mg/L FEU Puncture Site Patient Temperature O2 Saturation (90-100) % ABG pH (7.380-7.420) ABG pCO2 (38-42) mmHg ABG pO2 (61-120) mmHg ABG HCO3 (22-26) mmol/L ABG O2 Content (12.0-20.0) Vol % ABG Base Excess (-2-2) mmol/L ABG Methemoglobin (0-2) % Melo Test Hemoglobin (12.0-16.0) G/DL Carboxyhemoglobin (0-4) % O2 Delivery Device Liter Flow L/M Critical Value Sodium (136-145) meq/L Potassium (3.5-5.1) meq/L Chloride (98-107) meq/L Carbon Dioxide (21.0-32.0) meq/L Anion Gap (5-15) meq/L BUN (7-18) mg/dL Creatinine (0.50-1.00) mg/dL Estimated GFR (>89) mL/min Random Glucose (74-106) mg/dL Lactic Acid 0.7 (0.4-2.0) mmol/L Calcium (8.5-10.1) mg/dL Magnesium (1.5-2.5) mg/dL Total Bilirubin (0.2-1.0) mg/dL AST (15-37) U/L ALT (10-53) U/L Alkaline Phosphatase (45-117) U/L Total Creatine Kinase (26-192) U/L Troponin I (0.02-0.05) ng/mL Total Protein (6.4-8.2) g/dL Albumin (3.4-5.0) g/dL Urine Color [place] (Yellw/Straw) Urine Clarity Turbid H (Clear) Urine pH 5.0 (5.0-8.5) Ur Specific [place] 1.016 (1.002-1.035) Urine Protein 100 H (Neg-Trace) mg/dL Urine Glucose (UA) Negative (Negative) mg/dL Urine Ketones Negative (Negative) mg/dL Urine Occult Blood Moderate H (Negative) Urine Nitrate Positive H (Negative) Urine Bilirubin Negative (Negative) Urine Ictotest Negative (Negative) Urine Urobilinogen 2.0 H (Less than 2) mg/dL Ur Leukocyte Esterase Moderate H (Negative) Urine RBC 45 H (0-3) /hpf Urine WBC (0-5) /hpf Urine WBC Clumps Many H (None) Ur Squamous Epith Cells 2 (0-5) /hpf Micro UA Comment Culture indicated Ur Microscopic Review Not Reportable Urine Culture Comments Culture indicated Blood Type 01/07/19 Range/Units 16:40 WBC (4.0-11.0) th/mm3 RBC (4.00-5.30) mil/mm3 Hgb (11.6-15.3) gm/dL Hct (35.0-46.0) % MCV (80.0-100.0) fL MCH (27.0-34.0) pg MCHC (32.0-36.0) % RDW (11.6-17.2) % Plt Count (150-450) th/mm3 MPV (7.0-11.0) fL Prelim Diff (Auto) Neut % (Auto) (16.0-70.0) % Lymph % (Auto) (9.0-44.0) % Gregory % (Auto) (0.0-8.0) % Eos % (Auto) (0.0-4.0) % Baso % (Auto) (0.0-2.0) % Neut # (Auto) (1.8-7.7) th/mm3 Lymph # (Auto) (1.0-4.8) th/mm3 Gregory # (Auto) (0.0-0.9) th/mm3 Eos # (Auto) (0.0-0.4) th/mm3 Baso # (Auto) (0.0-0.2) th/mm3 WBC Differential Seg Neuts % (Manual) (16-70) % Band Neuts % (Manual) (0-6) % Lymphocytes % (Manual) (9-44) % Monocytes % (Manual) (0-8) % Eosinophils % (Manual) (0-4) % Basophils % (Manual) (0-2) % Abs Neuts (Manual) (1.8-7.7) th/mm3 Differential Comment Platelet Estimate (Normal) Platelet Morphology (Normal) PT (9.8-11.6) sec INR Ratio APTT (23.4-31.7) sec D-Dimer Quant (PE/DVT) (0.00-0.50) mg/L FEU Puncture Site Patient Temperature O2 Saturation (90-100) % ABG pH (7.380-7.420) ABG pCO2 (38-42) mmHg ABG pO2 (61-120) mmHg ABG HCO3 (22-26) mmol/L ABG O2 Content (12.0-20.0) Vol % ABG Base Excess (-2-2) mmol/L ABG Methemoglobin (0-2) % Melo Test Hemoglobin (12.0-16.0) G/DL Carboxyhemoglobin (0-4) % O2 Delivery Device Liter Flow L/M Critical Value Sodium (136-145) meq/L Potassium (3.5-5.1) meq/L Chloride (98-107) meq/L Carbon Dioxide (21.0-32.0) meq/L Anion Gap (5-15) meq/L BUN (7-18) mg/dL Creatinine (0.50-1.00) mg/dL Estimated GFR (>89) mL/min Random Glucose (74-106) mg/dL Lactic Acid (0.4-2.0) mmol/L Calcium (8.5-10.1) mg/dL Magnesium (1.5-2.5) mg/dL Total Bilirubin (0.2-1.0) mg/dL AST (15-37) U/L ALT (10-53) U/L Alkaline Phosphatase (45-117) U/L Total Creatine Kinase (26-192) U/L Troponin I (0.02-0.05) ng/mL Total Protein (6.4-8.2) g/dL Albumin (3.4-5.0) g/dL Urine Color (Yellw/Straw) Urine Clarity (Clear) Urine pH (5.0-8.5) Ur Specific [place] (1.002-1.035) Urine Protein (Neg-Trace) mg/dL Urine Glucose (UA) (Negative) mg/dL Urine Ketones (Negative) mg/dL Urine Occult Blood (Negative) Urine Nitrate (Negative) Urine Bilirubin (Negative) Urine Ictotest (Negative) Urine Urobilinogen (Less than 2) mg/dL Ur Leukocyte Esterase (Negative) Urine RBC (0-3) /hpf Urine WBC (0-5) /hpf Urine WBC Clumps (None) Ur Squamous Epith Cells (0-5) /hpf Micro UA Comment Ur Microscopic Review Urine Culture Comments Blood Type A Positive Imaging Data Radiologist's impression: Chest X-Ray 01/07/19 14:22 CONCLUSION: The lungs are clear. ECG Data EKG Prior to Arrival: No Attestation: I personally reviewed and interpreted this ECG as follows: Interpretation: EKG reveals normal sinus rhythm with a rate 85. Q waves noted in lead III. Discharge Plan Discharge Disposition Patient Disposition: ED Admit(ED Internal Use Only) Discharge Condition Condition: Stable Discharge Order Discharge Orders: ED Use Only Admit Order (Routine); Ordered 01/07/19 Ordered By: Lars Franco Discharge Details Diagnosis: Sepsis, Acute UTI, Methemoglobinemia, Hypoxia Physicians Team ED Provider: Lars Franco Primary Care Provider: Kirit Barry Rxs /Orders / Referrals /Forms Prescriptions: No Action aspirin 325 mg Tablet,Delayed Release (Dr/Ec) 325 mg PO DAILY Qty: 30 RF: 0 pantoprazole 40 mg Tablet,Delayed Release (Dr/Ec) 40 mg PO DAILY Qty: 30 RF: 0 ferrous sulfate [Iron (ferrous sulfate)] 325 mg (65 mg iron) Tablet 325 mg PO DAILY Qty: 30 RF: 0 pregabalin [Lyrica] 75 mg Capsule 75 mg PO BID Qty: 60 RF: 0 hydrocodone-acetaminophen [[place]] 10-325 mg Tablet 1 tab PO Q6HR PRN (Reason: Pain) Qty: 0 RF: 0 multivitamin with folic acid [Thera] 400 mcg Tablet 1 tab PO DAILY RF: 0 pravastatin 10 mg Tablet 10 mg PO DAILY RF: 0 docusate sodium [Colace] 100 mg Capsule 100 mg PO DAILY RF: 0 diphenhydramine HCl [Benadryl] 25 mg Capsule 25 mg PO DAILY RF: 0 Status ED Status: Admitted Patient
[2019-01-07 14:59] LABS: ABG Base Excess -16.2 mmol/L (-2-2); ABG PCO2 29 mmHg (38-42); ABG PO2 186 mmHg (61-120)
--- NOTE | 2019-01-07 15:08 | XR ---
EXAM DATE: 01/07/2019 3:05 PM EST AGE/SEX: 68 years / Female INDICATIONS: Dyspnea CLINICAL DATA: This is the patient's initial encounter. Patient reports that signs and symptoms have been present for 3 days and indicates a pain score of 0/10. MEDICAL/SURGICAL HISTORY: . Diabetes. Hypertension. Congestive heart failure. TIA None. COMPARISON: [facility] – [place], CHEST 1V SINGLE AP, 09/24/2018. . FINDINGS: A single AP view of the chest demonstrates the lungs to be symmetrically aerated without evidence of mass, infiltrate or effusion. The cardiomediastinal contours are unremarkable. Osseous structures a re intact. CONCLUSION: The lungs are clear. Electronically signed by: Corey Millan MD Board Certified Radiologist 01/07/2019 3:07 PM EST
[2019-01-07 15:16] LABS: Baso # (Auto) 0.2 th/mm3 (0.0-0.2); Baso % (Auto) 1.1 % (0.0-2.0); Eos % (Auto) 6.7 % (0.0-4.0); Hematocrit 30.3 % (35.0-46.0); Hemoglobin 9.4 gm/dL (11.6-15.3); Lymph # (Auto) 4.3 th/mm3 (1.0-4.8); Lymph % (Auto) 28.5 % (9.0-44.0); Mean Corpuscular HGB Conc 31.1 % (32.0-36.0); Mean Corpuscular Hemoglobin 31.2 pg (27.0-34.0); Mean Corpuscular Volume 100.5 fL (80.0-100.0); Mean Platelet Volume 7.9 fL (7.0-11.0); Mono # (Auto) 1.2 th/mm3 (0.0-0.9); Neut # (Auto) 8.4 th/mm3 (1.8-7.7); Neut % (Auto) 55.7 % (16.0-70.0); Platelet Count 549 th/mm3 (150-450); Red Blood Count 3.01 mil/mm3 (4.00-5.30); White Blood Count 15.1 th/mm3 (4.0-11.0)
[2019-01-07 15:31] LABS: Alanine Aminotransferase 19 U/L (10-53); Albumin 3.2 g/dL (3.4-5.0); Anion Gap 11 meq/L (5-15); Aspartate Aminotransferase 30 U/L (15-37); Blood Urea Nitrogen 64 mg/dL (7-18); Calcium 8.9 mg/dL (8.5-10.1); Carbon Dioxide 12.2 meq/L (21.0-32.0); Chloride 119 meq/L (98-107); Glomerular Filtration Rate 16 mL/min (>89); Glucose,Random 160 mg/dL (74-106); Magnesium 2.2 mg/dL (1.5-2.5); Potassium 5.6 meq/L (3.5-5.1); Sodium 142 meq/L (136-145)
[2019-01-07 15:36] LABS: Alkaline Phosphatase 94 U/L (45-117); Total Protein 9.1 g/dL (6.4-8.2); Troponin I 0.05 ng/mL (0.02-0.05)
[2019-01-07 15:37] LABS: Creatine Kinase 75 U/L (26-192)
[2019-01-07 15:42] LABS: Bilirubin,Urine Negative (Negative); Clarity,Urine Turbid (Clear); Color,Urine Amber (Yellw/Straw); Glucose,Urine (UA) Negative (Negative); Ictotest,Urine Negative (Negative); Leukocyte Esterase,Urine Moderate (Negative); Nitrite,Urine Positive (Negative); Specific Gravity,Urine 1.016 (1.002-1.035); Squamous Epithelial Cell,Urine 2 /hpf (0-5)
[2019-01-07 15:46] LABS: Eosinophils 4 % (0-4); Lymphocytes 20 % (9-44); Monocytes 7 % (0-8); Platelet Morphology Normal (Normal)
[2019-01-07 17:19] LABS: Activated Partial Thrombo Time 28.7 sec (23.4-31.7)
[2019-01-07 17:21] LABS: D-Dimer 0.64 mg/L FEU (0.00-0.50)
--- NOTE | 2019-01-07 18:15 | P.HPFP ---
History of Present Illness Primary Care Physician: Kirit Vega MD, R3 Chief Complaint: dizzy, short of breath, weakness History of Present Illness: Ms Cohen is a 68 YO female followed by Dr Vega with PMHx CHF, chronic renal insufficiency, DM type 2, PAD s/p RLE bypass surgery, HTN, peripheral neuropathy , recurrent UTIs (MDR, including pseudomonas) and left heel ulcer who presents with report of feeling weak and dizzy since last month when her most recent UTI began. She was given a course of Bactrim for 5 days followed by another 5 days in which she feels like the frequency and urgency and burning/irritation with urination did not improve. She complains that she has been incontinent as she has not been able to make it to the toilet in time and is feeling some lower pelvic pressure due to the infection. [facility] has been coming by her home and noted her O2 sats decreasing yesterday at 88-90% and then again today O2 sats were decreased from 85-88%. I spoke by phone with Luciana from [facility] and instructed her to get the patient to the ED if O2 sats could not be improved. She has a painful chronic left heel diabetic ulcer. She is scheduled for vascular bypass surgery on her LLE by Dr Mauricio on Tuesday and is wondering whether she will be able to get that done. She reports Dr Vega took her off of BP meds recently as she did not need them. Her DM has been well controlled also without insulin. She says her most current A1C is 5. PMHx: 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 Anemia Recurrent UTIs including MDR & pseudomonas CHF (congestive heart failure) CRI (chronic renal insufficiency) Cyst of right kidney Diabetes Foramen ovale Gastroparesis HTN (hypertension) Neuropathy PAD (peripheral artery disease) TIA (transient ischemic attack) Weakness PSurgHx: RLE angiogram (1990) Cystoscopy FamHx: Father -AK x2 and CHF, age 69 Mother - Complications from diabetes and ESRD on HD, age 69 SocHx: No tobacco No EtOH No drugs Lives with her in [place] Originally from [facility] but moved down here 28 years ago Allergies as above; consider adding Bactrim to the list - Diagnosis (1) Hypoxia (2) Methemoglobinemia (3) Complicated UTI (urinary tract infection) (4) Acute on chronic renal failure (5) Generalized weakness (6) Diabetes mellitus with neuropathy (7) Peripheral artery disease (8) Diabetic ulcer of heel (9) Nutrition, metabolism, and development symptoms Inpatient Certification: I certify that the inpatient services were ordered in accordance with Medicare regulations governing the order. This includes certification that hospital inpatient services are reasonable and necessary and in the case of services not specified as inpatient-only under 42 CFR 419.22(n), that they are appropriately provided as inpatient services in accordance to with the 2-midnight benchmark under 43 CFR 412.3(e) Review of Systems Constitutional: Reports fever(s), Reports lack of energy, Reports malaise, Reports weakness, Denies chills Eyes: Denies change in vision Ears, Nose, Mouth, and Throat: Reports dizziness Cardiovascular: Reports shortness of breath, Reports shortness of breath when lying down, Denies chest pain Respiratory: Reports shortness of breath Gastrointestinal: Reports constipation, Denies loose stools, Denies nausea, Denies vomiting Genitourinary: Reports blood in urine, Reports painful urination, Reports pelvic pain, Reports urinary incontinence, Reports urinary urgency Musculoskeletal: Reports numbness (in feet) Skin/Breast: Denies lesions, Denies rash Neurologic: Reports dizziness, Reports tingling/numbness/burning sensations (of feet) PMFSH - History History Provided By: Patient, Family Member - Medical History Medical History: Medical History (Last Reviewed 01/07/19 @ 14:45 by Lars Franco MD) 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 (Acute) Anemia CHF (congestive heart failure) CKD (chronic kidney disease), stage III CRI (chronic renal insufficiency) Cyst of right kidney Diabetes Foramen ovale Gastroparesis HTN (hypertension) MDRO (multiple drug resistant organisms) resistance Onset Date: ~09/29/18 Neuropathy PAD (peripheral artery disease) PVD (peripheral vascular disease) Pressure ulcer of left heel, unspecified stage Risk for falls TIA (transient ischemic attack) Uses wheelchair Weakness Wears glasses - Surgical History Surgical History: Surgical History (Last Reviewed 01/07/19 @ 14:46 by Lars Franco MD) Hx of section Hx of cystoscopy Hx of extremity bypass graft - Family History Family History: Family History (Last Reviewed 01/07/19 @ 14:46 by Lars Franco MD) Father Cardiovascular disease Mother Diabetes - Tobacco History Second Hand Smoke Exposure: No Smoking Status: Never smoker - Alcohol History How Often Do You Have a Drink Containing Alcohol: Never - Substance Use History Substance History: No History of Abuse - Travel History History of Recent Travel: No Recent Travel in the [place] Within the Last 8 Weeks: No Recent Travel Out of the Country Within the Last 8 Weeks: No - Immunization History Tetanus Immunization: Unsure Medications and Allergies Allergies Allergy/AdvReac Type Severity Reaction Status Date / Time clonidine AdvReac Severe Chest Pain Verified 01/07/19 14:09 metformin AdvReac Severe Dizziness Verified 01/07/19 14:09 Home Medications Medication Instructions Recorded Confirmed Type multivitamin with folic acid 1 tab PO DAILY 05/27/18 01/07/19 History [Thera] docusate sodium [Colace] 100 mg PO DAILY 01/02/19 01/07/19 History pravastatin 10 mg PO DAILY 01/02/19 01/07/19 History diphenhydramine HCl [Benadryl] 25 mg PO DAILY 01/07/19 01/07/19 History Exam Vital signs: Vital Signs 01/07/19 14:07 01/07/19 14:09 01/07/19 14:22 Temperature 100.2 F H Pulse Rate 101 H 84 Respiratory Rate 20 20 Blood Pressure 135/63 170/72 H Pulse Oximetry 89 L 90 L 90 L 01/07/19 15:08 Temperature Pulse Rate Respiratory Rate Blood Pressure Pulse Oximetry 92 L Intake & Output 01/06/19 01/07/19 01/07/19 18:59 06:59 18:59 Intake Total 100 / 100 Balance 100 / 100 Weight 68.039 kg Intake: IV 100 / 100 Rocephin Inj 1,000 MG In NS Inj 100 / 100 100 ML @ 200 mls/hr IV.SIG ONCE ONE Rx#:[id number] Narrative: GENERAL: 68 YO female lying flat in bed in NAD with nasal cannula in place. SKIN: Warm and dry. Minor venous stasis skin changes on LLE below the knee. HEAD: Normocephalic. Atraumatic. MMM. Oropharynx clear. EYES: No scleral icterus. No injection or drainage. EOMI/PERRLA. NECK: Supple, trachea midline. No JVD or lymphadenopathy. CARDIOVASCULAR: Mildly tachycardic (90s-100) with regular rhythm without murmurs , gallops, or rubs. RESPIRATORY: Breath sounds equal bilaterally. No accessory muscle use. No increased WOB. On 5L NC. GASTROINTESTINAL: Abdomen soft, non-tender, nondistended. BS+. MUSCULOSKELETAL: No cyanosis, or edema. Left medial heel ulcer covered in bandage that is clean and dry with eschar 2cm x 2cm. No drainage. BACK: Nontender without obvious deformity. Results - Labs Result diagrams: 01/07/19 14:54 01/07/19 14:54 Abnormal lab results 01/07/19 01/07/19 01/07/19 Range/Units 14:42 14:54 14:54 WBC 15.1 H (4.0-11.0) th/mm3 RBC 3.01 L (4.00-5.30) mil/mm3 Hgb 9.4 L (11.6-15.3) gm/dL Hct 30.3 L (35.0-46.0) % MCV 100.5 H (80.0-100.0) fL MCHC 31.1 L (32.0-36.0) % Plt Count 549 H (150-450) th/mm3 Eos % (Auto) 6.7 H (0.0-4.0) % Neut # (Auto) 8.4 H (1.8-7.7) th/mm3 Jenkins # (Auto) 1.2 H (0.0-0.9) th/mm3 Eos # (Auto) 1.0 H (0.0-0.4) th/mm3 Abs Neuts (Manual) 10.1 H (1.8-7.7) th/mm3 Platelet Estimate High H (Normal) D-Dimer Quant (PE/DVT) (0.00-0.50) mg/L FEU O2 Saturation 88 L* (90-100) % ABG pH 7.19 L* (7.380-7.420) ABG pCO2 29 L (38-42) mmHg ABG pO2 186 H (61-120) mmHg ABG HCO3 10 L* (22-26) mmol/L ABG O2 Content 10.2 L (12.0-20.0) Vol % ABG Base Excess -16.2 L (-2-2) mmol/L ABG Methemoglobin 9.6 H* (0-2) % Hemoglobin 7.9 L* (12.0-16.0) G/DL Potassium 5.6 H (3.5-5.1) meq/L Chloride 119 H (98-107) meq/L Carbon Dioxide 12.2 L (21.0-32.0) meq/L BUN 64 H (7-18) mg/dL Creatinine 2.86 H (0.50-1.00) mg/dL Estimated GFR 16 L (>89) mL/min Random Glucose 160 H (74-106) mg/dL Total Protein 9.1 H (6.4-8.2) g/dL Albumin 3.2 L (3.4-5.0) g/dL Urine Clarity (Clear) Urine Protein (Neg-Trace) mg/dL Urine Occult Blood (Negative) Urine Nitrate (Negative) Urine Urobilinogen (Less than 2) mg/dL Ur Leukocyte Esterase (Negative) Urine RBC (0-3) /hpf Urine WBC Clumps (None) 01/07/19 01/07/19 Range/Units 15:14 16:40 WBC (4.0-11.0) th/mm3 RBC (4.00-5.30) mil/mm3 Hgb (11.6-15.3) gm/dL Hct (35.0-46.0) % MCV (80.0-100.0) fL MCHC (32.0-36.0) % Plt Count (150-450) th/mm3 Eos % (Auto) (0.0-4.0) % Neut # (Auto) (1.8-7.7) th/mm3 Jenkins # (Auto) (0.0-0.9) th/mm3 Eos # (Auto) (0.0-0.4) th/mm3 Abs Neuts (Manual) (1.8-7.7) th/mm3 Platelet Estimate (Normal) D-Dimer Quant (PE/DVT) 0.64 H (0.00-0.50) mg/L FEU O2 Saturation (90-100) % ABG pH (7.380-7.420) ABG pCO2 (38-42) mmHg ABG pO2 (61-120) mmHg ABG HCO3 (22-26) mmol/L ABG O2 Content (12.0-20.0) Vol % ABG Base Excess (-2-2) mmol/L ABG Methemoglobin (0-2) % Hemoglobin (12.0-16.0) G/DL Potassium (3.5-5.1) meq/L Chloride (98-107) meq/L Carbon Dioxide (21.0-32.0) meq/L BUN (7-18) mg/dL Creatinine (0.50-1.00) mg/dL Estimated GFR (>89) mL/min Random Glucose (74-106) mg/dL Total Protein (6.4-8.2) g/dL Albumin (3.4-5.0) g/dL Urine Clarity Turbid H (Clear) Urine Protein 100 H (Neg-Trace) mg/dL Urine Occult Blood Moderate H (Negative) Urine Nitrate Positive H (Negative) Urine Urobilinogen 2.0 H (Less than 2) mg/dL Ur Leukocyte Esterase Moderate H (Negative) Urine RBC 45 H (0-3) /hpf Urine WBC Clumps Many H (None) Short CBC 01/07/19 Range/Units 14:54 WBC 15.1 H (4.0-11.0) th/mm3 Hgb 9.4 L (11.6-15.3) gm/dL Hct 30.3 L (35.0-46.0) % Plt Count 549 H (150-450) th/mm3 BMP 01/07/19 14:54 Sodium 142 Potassium 5.6 H Chloride 119 H Carbon Dioxide 12.2 L BUN 64 H Creatinine 2.86 H Calcium 8.9 Cardiac Enzymes 01/07/19 Range/Units 14:54 Total Creatine Kinase 75 (26-192) U/L Troponin I 0.05 (0.02-0.05) ng/mL Liver Function 01/07/19 Range/Units 14:54 Total Bilirubin 0.3 (0.2-1.0) mg/dL AST 30 (15-37) U/L ALT 19 (10-53) U/L Alkaline Phosphatase 94 (45-117) U/L Albumin 3.2 L (3.4-5.0) g/dL Urine 01/07/19 Range/Units 15:14 Urine Color Sydnee (Yellw/Straw) Urine Clarity Turbid H (Clear) Urine pH 5.0 (5.0-8.5) Ur Specific [place] 1.016 (1.002-1.035) Urine Protein 100 H (Neg-Trace) mg/dL Urine Glucose (UA) Negative (Negative) mg/dL - Imaging Impressions Chest X-Ray 01/07/19 14:22 CONCLUSION: The lungs are clear. Caprini VTE Risk Assessment Caprini VTE Risk Assessment: Moderate/High Risk (score >= 2) Assessment and Plan - Assessment (1) Hypoxia Code(s): R09.02 - Hypoxemia Status: Acute (2) Methemoglobinemia Code(s): D74.9 - Methemoglobinemia, unspecified Status: Acute (3) Complicated UTI (urinary tract infection) Code(s): N39.0 - Urinary tract infection, site not specified Status: Acute (4) Acute on chronic renal failure Code(s): N17.9 - Acute kidney failure, unspecified; N18.9 - Chronic kidney disease, unspecified Status: Acute (5) Generalized weakness Code(s): R53.1 - Weakness Status: Acute (6) Diabetes mellitus with neuropathy Code(s): E11.40 - Type 2 diabetes mellitus with diabetic neuropathy, unspecified Status: Acute (7) Peripheral artery disease Code(s): I73.9 - Peripheral vascular disease, unspecified Status: Acute (8) Diabetic ulcer of heel Code(s): E11.621 - Type 2 diabetes mellitus with foot ulcer; L97.409 - Non- pressure chronic ulcer of unspecified heel and midfoot with unspecified severity Status: Chronic (9) Nutrition, metabolism, and development symptoms Code(s): R63.8 - Other symptoms and signs concerning food and fluid intake Status: Acute - Assessment and Plan 68 YO female with PMHx DM type 2, diabetic peripheral neuropathy, anemia, peripheral arterial disease s/p bypass in RLE, GERD, recurrent UTIs and CKD presents meeting sepsis criteria with WBC 15.1, tachycardia, RR at 20 but PaCO2 on ABG 29, temp 100.2, Lactate 0.7 and UTI with UA leuko esterase and nitrate positive, moderate blood, WBC clumps. Additionally, pt presents with Hypoxia and O2 sats in the 80s, macrocytic anemia, methemoglobinemia 9.6%, acute on chronic renal failure, and chronic diabetic left heel ulcer scheduled for surgery on 01/[address] Mauricio. 1. Hypoxia, dizziness and weakness -Pt's O2 sats quickly corrected to 90% on 4L NC and 100% 5L NC after 3 hours -Tachycardia resolved -CXR negative -Supplemental O2, titrate for effect, wean 2. Sepsis 2/2 UTI -Rocephin 1g IV once in ED -Rocephin 1g -Urine cx pending -Blood cx pending -Pt initially hypertensive -Renal/bladder US w/no evidence of hydronephrosis, but posterior bladder wall slightly thickened 3. Recurrent UTIs -Plan as above -Consider Urology consult, per comments in [place] 4. Methemoglobinemia -Repeat ABG -G6PD pending -Consider Methylene Blue IV if G6PD negative -Stop potential offending drugs: pt was recently on Bactrim (Sulfanomides) and on ASA --Holding home ASA 325mg 5. Acute on chronic renal failure -Cr 2.86 with baseline since March of 1.74/BUN 64 -Gentle IVF @ 50 mls/hr (and due to CHF) -Consult nephrology--appreciate recs -Renal diet 6. Diabetes type 2 (Blood glucose 160 on admission) -A1C on 12/07/18 was 5.4 -Accuchecks -Low SSI 7. Macrocytic anemia - unclear etiology (hemolysis? malabsorption from chronic PPI? occult bleed?) -Check B12, Iron profile, Ferritin -Pt states she is non-compliant with Iron sulfate treatment due to constipation -Heme occult -If repeat ABG showing Hgb near 7.0, consider transfusion 8. PAD with LLE Chronic diabetic ulcer -Wound nurse consult -Consult Dr Mauricio, vascular surgery--appreciate recs -Dr Mauricio would like to take to surgery as planned, 01/09/19 -Continue home [place] 10-325 mg q6h PRN/pain 9. Peripheral neuropathy 2/2 diabetes -Continue home Lyrica 75 mg daily 10. Hyperkalemia at 5.6 on admission -Repeat BMP tonight -If elevated with give Ca gluconate x1 -Also, Low SSI as above -EKG NSR 11. 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
[2019-01-07] MEDS ORDERED: Enoxaparin Inj 30 MG/0.3 ML Syringe SQ SCH (19:00)
[2019-01-07] MEDS ORDERED: Dextrose 50% in Water 50 ML Vial IV.PUSH PRN (19:35)
--- NOTE | 2019-01-07 19:56 | US ---
EXAM DATE: 01/07/2019 7:47 PM EST AGE/SEX: 68 years / Female INDICATIONS: Elevated labs. CLINICAL DATA: This is the patient's initial encounter. Patient reports that signs and symptoms have been present for 1 day and indicates a pain score of 0/10. MEDICAL/SURGICAL HISTORY: Renal disease. Renal insufficiency, chronic. Diabetes. Anemia. CHF . HTN. Peripheral vascular disease. TIA. section. Right extremity bypass graft. COMPARISON: [facility] [place], CT ABDOMEN & PELVIS W/O CONTRAST, 12/20/2018. . MEASUREMENTS: Right Kidney:__9.8 x 4.2 x 3.8 cm Left Kidney:__10.2 x 5.5 x 6.0 cm FINDINGS: Right Kidney: Increased echogenicity. No mass or hydronephrosis. Left Kidney: Increased echogenicity. No mass or hydronephrosis. Bladder: Within normal limits given the degree of distension. Other: None. CONCLUSION: 1. No evidence of hydronephrosis. No evidence of obstruction. The bladder wall posteriorly slightly thickened probably related to underdistention. Electronically signed by: Amrit Gutierres MD Board Certified Radiologist 01/07/2019 7:54 PM EST
[2019-01-07] MEDS ORDERED: Sod Chloride 0.9% Inj 1,000 ML IV.CONT SCH (20:00)
[2019-01-07 20:12] LABS: % Iron Saturation 33.7 % (20-50)
[2019-01-07 20:13] LABS: ABG Base Excess -14.9 mmol/L (-2-2); ABG PCO2 33 mmHg (38-42); ABG PO2 142 mmHg (61-120)
[2019-01-07] MEDS ORDERED: Ascorbic Acid 500 MG Tablet PO ONE (20:56)
--- NOTE | 2019-01-07 20:58 | P.CONNP ---
History of Present Illness Service: Nephrology Consult date: 01/07/19 Requesting Physician: Sariah Connell Reason for Consult: Acute on chronic kidney failure Primary Care Provider: Kirit Vega MD, R3 Chief Complaint: dizzy, short of breath, weakness History of Present Illness: Patient is a 68-year-old female with a history of diabetes, chronic kidney disease stage III peripheral vascular disease, bladder issues, urinary tract infection and was given Bactrim and to 5 days, she has been feeling tired and has dizziness and numbness and tingling in her left leg, patient came in with these complaints and has been admitted her creatinine baseline is around 1.7 and currently is 2.8, patient has appointment with Dr. Mauricio for peripheral vascular disease apparently she had angioplasty right leg in April 2018 and was scheduled to undergo her left leg angioplasty She was about to see Dr. Pan Review of Systems Constitutional: Reports fatigue, Reports lack of energy Eyes: Denies blind spots, Denies blurry vision, Denies bulging eyes, Denies change in vision, Denies double vision, Denies discharge, Denies dry eyes, Denies floaters, Denies irritation, Denies itchy eyes, Denies loss of vision, Denies pain, Denies requires corrective lenses, Denies sensitivity to light, Denies other Ears, Nose, Mouth, and Throat: Denies abnormal hearing, Denies bleeding gums, Denies bad breath, Denies change in voice, Denies dental pain, Denies difficulty swallowing, Denies dizziness, Denies dry mouth, Denies ear discharge , Denies ear pain, Denies facial pain, Denies headache(s), Denies hearing loss, Denies hoarseness, Denies lip swelling, Denies nosebleed, Denies mouth lesions, Denies mouth pain, Denies nasal congestion, Denies nasal discharge, Denies nasal obstruction, Denies nasal trauma, Denies neck lump, Denies neck pain, Denies nose pain, Denies pain with swallowing, Denies poor balance, Denies post nasal drip, Denies ringing in the ears, Denies sinus pain, Denies sinus pressure , Denies sore throat, Denies throat swelling, Denies tongue swelling, Denies other Cardiovascular: Reports shortness of breath Respiratory: Reports shortness of breath Gastrointestinal: Reports nausea Genitourinary: Reports painful urination, Reports pelvic pain Musculoskeletal: Reports radiating pain into limb Skin/Breast: Reports other Neurologic: Reports tingling/numbness/burning sensations Psychiatric: Reports anxiety Endocrine: Denies cold intolerance, Denies excessive sweating, Denies flushing, Denies heat intolerance, Denies increased hunger, Denies increased thirst, Denies increased urination, Denies rapid, pounding, or irregular heartbeat, Denies other Hematologic/Lymphatic: Denies easy bleeding, Denies easy bruising, Denies enlarged lymph nodes, Denies other PMFSH - History History Provided By: Patient, Family Member - Medical History Medical History: Medical History (Last Reviewed 01/07/19 @ 20:50 by Alejandra Cannon MD) 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 (Acute) Anemia CHF (congestive heart failure) CKD (chronic kidney disease), stage III CRI (chronic renal insufficiency) Cyst of right kidney Diabetes Foramen ovale Gastroparesis HTN (hypertension) MDRO (multiple drug resistant organisms) resistance Onset Date: ~09/29/18 Neuropathy PAD (peripheral artery disease) PVD (peripheral vascular disease) Pressure ulcer of left heel, unspecified stage Risk for falls TIA (transient ischemic attack) Uses wheelchair Weakness Wears glasses - Surgical History Surgical History: Surgical History (Last Reviewed 01/07/19 @ 20:50 by Alejandra Cannon MD) Hx of section Hx of cystoscopy Hx of extremity bypass graft - Family History Family History: Family History (Last Reviewed 01/07/19 @ 20:50 by Alejandra Cannon MD) Father Cardiovascular disease Mother Diabetes - Social History I have reviewed the patient's Social History: Yes - Tobacco History Second Hand Smoke Exposure: No Smoking Status: Never smoker - Alcohol History How Often Do You Have a Drink Containing Alcohol: Never - Substance Use History Substance History: No History of Abuse - Travel History History of Recent Travel: No Recent Travel in the [place] Within the Last 8 Weeks: No Recent Travel Out of the Country Within the Last 8 Weeks: No - Immunization History Tetanus Immunization: Unsure Medications and Allergies Active Medications: Active Medications Acetaminophen (Tylenol) 650 mg PO Q4H PRN PRN Reason: Temp > 100.4 Hydrocodone Bitart/Acetaminophen ([facility] 10/325) 1 tab PO Q6H PRN PRN Reason: PAIN SCALE 1 TO 10 Dextrose (D50w Vial) 50 ml IV.PUSH UNSCH PRN PRN Reason: PER HYPOGLYCEMIA PROTOCOL Docusate Sodium (Colace) 100 mg PO DAILY LINDA Enoxaparin Sodium (Lovenox Inj) 30 mg SQ Q24H LINDA Stop: 01/08/19 10:00 Glucagon (Glucagon Inj) 1 mg OTHER PRN PRN PRN Reason: for Hypoglycemia Protocol Ceftriaxone Sodium 1,000 mg/ (Sodium Chloride) 100 mls @ 200 mls/hr IV.SIG Q24H LINDA Sodium Chloride (Ns Inj) 1,000 mls @ 50 mls/hr IV.CONT .Q20H LINDA Insulin Aspart (Novolog Insulin [facility] Sugar Inj) 0 unit SQ ACHS LINDA; Protocol Multivitamins (Theragran) 1 tab PO DAILY LINDA Ondansetron HCl (Zofran Inj) 4 mg IV.PUSH Q6H PRN PRN Reason: NAUSEA OR VOMITING Pantoprazole Sodium (Protonix) 40 mg PO DAILY LINDA Pravastatin Sodium (Pravachol) 10 mg PO HS LINDA Pregabalin (Lyrica) 75 mg PO BID LINDA Sodium Chloride (Ns Flush) 2 ml IV.FLUSH BID LINDA Sodium Chloride (Ns Flush) 2 ml IV.FLUSH PRN PRN PRN Reason: FLUSH AFTER USING IV ACCESS Allergies Allergy/AdvReac Type Severity Reaction Status Date / Time clonidine AdvReac Severe Chest Pain Verified 01/07/19 14:09 metformin AdvReac Severe Dizziness Verified 01/07/19 14:09 Home Medications Medication Instructions Recorded Confirmed Type multivitamin with folic acid 1 tab PO DAILY 05/27/18 01/07/19 History [Thera] docusate sodium [Colace] 100 mg PO DAILY 01/02/19 01/07/19 History pravastatin 10 mg PO DAILY 01/02/19 01/07/19 History diphenhydramine HCl [Benadryl] 25 mg PO DAILY 01/07/19 01/07/19 History Exam Vital signs: Vital Signs 01/07/19 14:07 01/07/19 14:09 01/07/19 14:22 Temperature 100.2 F H Pulse Rate 101 H 84 Respiratory Rate 20 20 Blood Pressure 135/63 170/72 H Pulse Oximetry 89 L 90 L 90 L 01/07/19 15:08 01/07/19 18:09 Temperature Pulse Rate 71 Respiratory Rate 16 Blood Pressure Pulse Oximetry 92 L 100 Intake & Output 01/07/19 01/07/19 01/08/19 06:59 18:59 06:59 Intake Total 100 / 100 Balance 100 / 100 Weight 68.039 kg Intake: IV 100 / 100 Rocephin Inj 1,000 MG In NS Inj 100 / 100 100 ML @ 200 mls/hr IV.SIG ONCE ONE Rx#:[id number] Narrative: GENERAL: Well-nourished, well-developed patient. SKIN: Warm and dry. HEAD: Normocephalic. EYES: No scleral icterus. No injection or drainage. NECK: Supple, trachea midline. No JVD or lymphadenopathy. CARDIOVASCULAR: Regular rate and rhythm without murmurs, gallops, or rubs. RESPIRATORY: Breath sounds equal bilaterally. No accessory muscle use. GASTROINTESTINAL: Abdomen soft, non-tender, nondistended. EXTREMITIES: Diminished pulses left side NEUROLOGICAL: Awake, alert, and oriented x 3. Non-focal. Results - Lab Results 01/07/19 14:54 01/07/19 14:54 Most recent lab results ABG pH 7.18 (7.380-7.420) L* 01/07/19 20:03 ABG pCO2 33 mmHg (38-42) L 01/07/19 20:03 ABG pO2 142 mmHg (61-120) H 01/07/19 20:03 ABG HCO3 12 mmol/L (22-26) L* 01/07/19 20:03 Calcium 8.9 mg/dL (8.5-10.1) 01/07/19 14:54 Magnesium 2.2 mg/dL (1.5-2.5) 01/07/19 14:54 Assessment and Plan - Assessment (1) Acute on chronic renal failure Code(s): N17.9 - Acute kidney failure, unspecified; N18.9 - Chronic kidney disease, unspecified Status: Acute Plan: Patient is treated with Bactrim this could be the culprit for acute renal insufficiency, she needs hydration and stopping the medication usually resolved acute renal failure Ultrasound of the kidney did not reveal any obstruction Chronic kidney disease is likely due to diabetes She follows with Dr. 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 Code(s): I70.309 - Unspecified atherosclerosis of unspecified type of bypass graft(s) of the extremities, unspecified extremity Status: Acute Plan: Patient is following with vascular surgery (1) Acute on chronic renal failure Qualifiers: Chronic kidney disease stage: stage 3 (moderate) (2) Diabetes mellitus with neuropathy Qualifiers: Diabetes mellitus type: type 2 Diabetes mellitus [facility] insulin use: with plan consultant use Qualified Code(s): E11.40 - Type 2 diabetes mellitus with diabetic neuropathy, unspecified; Z79.4 - penitentiary (current) use of insulin (3) Hypertension Qualifiers: Hypertension type: essential hypertension Qualified Code(s): I10 - Essential (primary) hypertension
[2019-01-07] MEDS: Pregabalin 75 MG Capsule PO SCH (21:25)
[2019-01-07 21:45] LABS: Calcium 9.1 mg/dL (8.5-10.1); Carbon Dioxide 13.6 meq/L (21.0-32.0)
[2019-01-08] MEDS: Insulin NovoLOG Aspart Correctional Sugar Inj SQ SCH ×5 (00:06→20:43)
[2019-01-08 01:17] LABS: ABG Base Excess -15.9 mmol/L (-2-2); ABG PCO2 32 mmHg (38-42); ABG PO2 178 mmHg (61-120)
[2019-01-08 03:23] LABS: ABG Base Excess -15.7 mmol/L (-2-2); ABG PCO2 32 mmHg (38-42); ABG PO2 174 mmHg (61-120)
--- NOTE | 2019-01-08 03:34 | P.PNADD ---
Addendum to Inpatient Note Reason for Addendum: Additional Documentation Additional information: Follow-up ABG reviewed, which showed minimal improvement from prior with O2 saturation of 87% from 85% and methemoglobin level of 10.2% slightly decreased from 10.4%, following administration of vitamin C 1g PO. Patient was switched from 4 L nasal cannula to 9 L simple mask by respiratory therapy due to low O2 levels on ABG, the patient was not complaining of increased shortness of breath at the time. Patient was resting comfortably without increased work of breathing when delivery method of oxygen was changed and continues to show no signs of respiratory distress at this time. Vital signs otherwise stable. Case was discussed with back stayer, Dr. Chance, recommended administering methylene blue for the mildly symptomatic methemoglobinemia. Symptomatic methemoglobinemia -Continue IV fluids, NS at 50 mls/hr -Methylene blue 50 mg IV push, to be given over 5-10 mins ordered -Follow-up ABG to be performed 1 hour following administration of methylene blue. sdw Dr. Pavon
[2019-01-08] MEDS ORDERED: Methylene Blue Inj 100 MG/10 ML Vial IV.PUSH ONE (04:00)
[2019-01-08] MEDS ORDERED: METHYLENE BLUE IV.PUSH SCH (04:15)
[2019-01-08 06:08] LABS: ABG Base Excess -16.3 mmol/L (-2-2); ABG PCO2 31 mmHg (38-42); ABG PO2 243 mmHg (61-120)
[2019-01-08 07:42] LABS: Baso # (Auto) 0.1 th/mm3 (0.0-0.2); Baso % (Auto) 1.2 % (0.0-2.0); Eos # (Auto) 0.6 th/mm3 (0.0-0.4); Eos % (Auto) 6.7 % (0.0-4.0); Hematocrit 27.1 % (35.0-46.0); Hemoglobin 8.6 gm/dL (11.6-15.3); Lymph # (Auto) 2.5 th/mm3 (1.0-4.8); Mean Corpuscular HGB Conc 31.8 % (32.0-36.0); Mean Corpuscular Hemoglobin 31.8 pg (27.0-34.0); Mean Platelet Volume 7.1 fL (7.0-11.0); Mono # (Auto) 0.6 th/mm3 (0.0-0.9); Mono % (Auto) 7.3 % (0.0-8.0); Neut # (Auto) 4.8 th/mm3 (1.8-7.7); Neut % (Auto) 55.8 % (16.0-70.0); Platelet Count 465 th/mm3 (150-450); Red Blood Count 2.71 mil/mm3 (4.00-5.30); Red Cell Distribution Width 15.8 % (11.6-17.2); White Blood Count 8.6 th/mm3 (4.0-11.0)
[2019-01-08 08:13] LABS: Alanine Aminotransferase 12 U/L (10-53); Albumin 2.9 g/dL (3.4-5.0); Anion Gap 11 meq/L (5-15); Aspartate Aminotransferase 12 U/L (15-37); Blood Urea Nitrogen 61 mg/dL (7-18); Carbon Dioxide 12.5 meq/L (21.0-32.0); Chloride 121 meq/L (98-107); Glomerular Filtration Rate 18 mL/min (>89); Glucose,Random 137 mg/dL (74-106); Potassium 5.3 meq/L (3.5-5.1); Sodium 144 meq/L (136-145)
[2019-01-08 08:15] LABS: Alkaline Phosphatase 86 U/L (45-117); Total Protein 8.2 g/dL (6.4-8.2)
--- NOTE | 2019-01-08 08:44 | P.PNFP ---
Subjective Interval history: Patient was placed on simple mask overnight due to low arterial O2 % noted on ABG, as per prior documentation the patient remained asymptomatic in no respiratory distress. The patient is seen and examined this AM. Remains comfortable. On 9 L O2 via simple mask. No respiratory distress. Lying comfortably in bed. Conversing in complete sentences. The patient reports for about the last month she has not been feeling well. Endorses dysuria as well as urinary urgency and frequency. Also reports left heel pain from a chronic ulcer. Denies drainage from this area. Denies fevers, dyspnea, chest or abdominal pain. <Ephraim Lambert - 01/08/19 10:49> Results - Labs Result diagrams: 01/09/19 04:29 01/09/19 04:29 <Desirae Clark - 01/09/19 11:18> Abnormal lab results 01/08/19 01/08/19 01/08/19 Range/Units 12:20 15:08 17:27 RBC (4.00-5.30) mil/mm3 Hgb (11.6-15.3) gm/dL Hct (35.0-46.0) % MCHC (32.0-36.0) % Plt Count (150-450) th/mm3 [place] % (Auto) (0.0-8.0) % Eos % (Auto) (0.0-4.0) % Eos # (Auto) (0.0-0.4) th/mm3 Chloride 117 H (98-107) meq/L Carbon Dioxide 14.8 L (21.0-32.0) meq/L BUN 58 H (7-18) mg/dL Creatinine 2.53 H (0.50-1.00) mg/dL Estimated GFR 19 L (>89) mL/min POC Glucose 210 H 118 H (68-110) mg/dl Random Glucose 127 H (74-106) mg/dL Albumin (3.4-5.0) g/dL MTS Gel Crossmatch 01/08/19 01/09/19 01/09/19 Range/Units 20:18 02:24 04:29 RBC 2.66 L (4.00-5.30) mil/mm3 Hgb 8.4 L (11.6-15.3) gm/dL Hct 26.5 L (35.0-46.0) % MCHC 31.9 L (32.0-36.0) % Plt Count 477 H (150-450) th/mm3 [place] % (Auto) 9.1 H (0.0-8.0) % Eos % (Auto) 8.4 H (0.0-4.0) % Eos # (Auto) 0.7 H (0.0-0.4) th/mm3 Chloride (98-107) meq/L Carbon Dioxide (21.0-32.0) meq/L BUN (7-18) mg/dL Creatinine (0.50-1.00) mg/dL Estimated GFR (>89) mL/min POC Glucose 162 H 115 H (68-110) mg/dl Random Glucose (74-106) mg/dL Albumin (3.4-5.0) g/dL MTS Gel Crossmatch 01/09/19 01/09/19 Range/Units 04:29 08:12 RBC (4.00-5.30) mil/mm3 Hgb (11.6-15.3) gm/dL Hct (35.0-46.0) % MCHC (32.0-36.0) % Plt Count (150-450) th/mm3 [place] % (Auto) (0.0-8.0) % Eos % (Auto) (0.0-4.0) % Eos # (Auto) (0.0-0.4) th/mm3 Chloride 116 H (98-107) meq/L Carbon Dioxide 15.5 L (21.0-32.0) meq/L BUN 61 H (7-18) mg/dL Creatinine 2.56 H (0.50-1.00) mg/dL Estimated GFR 19 L (>89) mL/min POC Glucose (68-110) mg/dl Random Glucose (74-106) mg/dL Albumin 2.9 L (3.4-5.0) g/dL MTS Gel Crossmatch See Detail Short CBC 01/09/19 Range/Units 04:29 WBC 7.9 (4.0-11.0) th/mm3 Hgb 8.4 L (11.6-15.3) gm/dL Hct 26.5 L (35.0-46.0) % Plt Count 477 H (150-450) th/mm3 BMP 01/08/19 01/09/19 15:08 04:29 Sodium 144 140 Potassium 4.8 4.6 Chloride 117 H 116 H Carbon Dioxide 14.8 L 15.5 L BUN 58 H 61 H Creatinine 2.53 H 2.56 H Calcium 8.9 9.2 Liver Function 01/09/19 Range/Units 04:29 Albumin 2.9 L (3.4-5.0) g/dL <Desirae Clark - 01/09/19 11:18> Abnormal lab results 01/07/19 01/07/19 01/07/19 Range/Units 00:59 14:42 14:54 WBC 15.1 H (4.0-11.0) th/mm3 RBC 3.01 L (4.00-5.30) mil/mm3 Hgb 9.4 L (11.6-15.3) gm/dL Hct 30.3 L (35.0-46.0) % MCV 100.5 H (80.0-100.0) fL MCHC 31.1 L (32.0-36.0) % Plt Count 549 H (150-450) th/mm3 Eos % (Auto) 6.7 H (0.0-4.0) % Neut # (Auto) 8.4 H (1.8-7.7) th/mm3 [place] # (Auto) 1.2 H (0.0-0.9) th/mm3 Eos # (Auto) 1.0 H (0.0-0.4) th/mm3 Abs Neuts (Manual) 10.1 H (1.8-7.7) th/mm3 Platelet Estimate High H (Normal) D-Dimer Quant (PE/DVT) (0.00-0.50) mg/L FEU O2 Saturation 87 L* 88 L* (90-100) % ABG pH 7.16 L* 7.19 L* (7.380-7.420) ABG pCO2 32 L 29 L (38-42) mmHg ABG pO2 178 H 186 H (61-120) mmHg ABG HCO3 11 L* 10 L* (22-26) mmol/L ABG O2 Content 11.4 L 10.2 L (12.0-20.0) Vol % ABG Base Excess -15.9 L -16.2 L (-2-2) mmol/L ABG Methemoglobin 10.2 H* 9.6 H* (0-2) % Hemoglobin 9.0 L 7.9 L* (12.0-16.0) G/DL Potassium (3.5-5.1) meq/L Chloride (98-107) meq/L Carbon Dioxide (21.0-32.0) meq/L BUN (7-18) mg/dL Creatinine (0.50-1.00) mg/dL Estimated GFR (>89) mL/min POC Glucose (68-110) mg/dl Random Glucose (74-106) mg/dL Ferritin (8-252) ng/mL AST (15-37) U/L Total Protein (6.4-8.2) g/dL Albumin (3.4-5.0) g/dL Urine Clarity (Clear) Urine Protein (Neg-Trace) mg/dL Urine Occult Blood (Negative) Urine Nitrate (Negative) Urine Urobilinogen (Less than 2) mg/dL Ur Leukocyte Esterase (Negative) Urine RBC (0-3) /hpf Urine WBC Clumps (None) 01/07/19 01/07/19 01/07/19 Range/Units 14:54 14:54 15:14 WBC (4.0-11.0) th/mm3 RBC (4.00-5.30) mil/mm3 Hgb (11.6-15.3) gm/dL Hct (35.0-46.0) % MCV (80.0-100.0) fL MCHC (32.0-36.0) % Plt Count (150-450) th/mm3 Eos % (Auto) (0.0-4.0) % Neut # (Auto) (1.8-7.7) th/mm3 [place] # (Auto) (0.0-0.9) th/mm3 Eos # (Auto) (0.0-0.4) th/mm3 Abs Neuts (Manual) (1.8-7.7) th/mm3 Platelet Estimate (Normal) D-Dimer Quant (PE/DVT) (0.00-0.50) mg/L FEU O2 Saturation (90-100) % ABG pH (7.380-7.420) ABG pCO2 (38-42) mmHg ABG pO2 (61-120) mmHg ABG HCO3 (22-26) mmol/L ABG O2 Content (12.0-20.0) Vol % ABG Base Excess (-2-2) mmol/L ABG Methemoglobin (0-2) % Hemoglobin (12.0-16.0) G/DL Potassium 5.6 H (3.5-5.1) meq/L Chloride 119 H (98-107) meq/L Carbon Dioxide 12.2 L (21.0-32.0) meq/L BUN 64 H (7-18) mg/dL Creatinine 2.86 H (0.50-1.00) mg/dL Estimated GFR 16 L (>89) mL/min POC Glucose (68-110) mg/dl Random Glucose 160 H (74-106) mg/dL Ferritin 943 H (8-252) ng/mL AST (15-37) U/L Total Protein 9.1 H (6.4-8.2) g/dL Albumin 3.2 L (3.4-5.0) g/dL Urine Clarity Turbid H (Clear) Urine Protein 100 H (Neg-Trace) mg/dL Urine Occult Blood Moderate H (Negative) Urine Nitrate Positive H (Negative) Urine Urobilinogen 2.0 H (Less than 2) mg/dL Ur Leukocyte Esterase Moderate H (Negative) Urine RBC 45 H (0-3) /hpf Urine WBC Clumps Many H (None) 01/07/19 01/07/19 01/07/19 Range/Units 16:40 20:03 20:55 WBC (4.0-11.0) th/mm3 RBC (4.00-5.30) mil/mm3 Hgb (11.6-15.3) gm/dL Hct (35.0-46.0) % MCV (80.0-100.0) fL MCHC (32.0-36.0) % Plt Count (150-450) th/mm3 Eos % (Auto) (0.0-4.0) % Neut # (Auto) (1.8-7.7) th/mm3 [place] # (Auto) (0.0-0.9) th/mm3 Eos # (Auto) (0.0-0.4) th/mm3 Abs Neuts (Manual) (1.8-7.7) th/mm3 Platelet Estimate (Normal) D-Dimer Quant (PE/DVT) 0.64 H (0.00-0.50) mg/L FEU O2 Saturation 86 L* (90-100) % ABG pH 7.18 L* (7.380-7.420) ABG pCO2 33 L (38-42) mmHg ABG pO2 142 H (61-120) mmHg ABG HCO3 12 L* (22-26) mmol/L ABG O2 Content (12.0-20.0) Vol % ABG Base Excess -14.9 L (-2-2) mmol/L ABG Methemoglobin 10.4 H* (0-2) % Hemoglobin 11.1 L (12.0-16.0) G/DL Potassium (3.5-5.1) meq/L Chloride 120 H (98-107) meq/L Carbon Dioxide 13.6 L (21.0-32.0) meq/L BUN 64 H (7-18) mg/dL Creatinine 2.69 H (0.50-1.00) mg/dL Estimated GFR 18 L (>89) mL/min POC Glucose (68-110) mg/dl Random Glucose 145 H (74-106) mg/dL Ferritin (8-252) ng/mL AST (15-37) U/L Total Protein (6.4-8.2) g/dL Albumin (3.4-5.0) g/dL Urine Clarity (Clear) Urine Protein (Neg-Trace) mg/dL Urine Occult Blood (Negative) Urine Nitrate (Negative) Urine Urobilinogen (Less than 2) mg/dL Ur Leukocyte Esterase (Negative) Urine RBC (0-3) /hpf Urine WBC Clumps (None) 01/08/19 01/08/19 01/08/19 Range/Units 00:05 00:59 05:57 WBC (4.0-11.0) th/mm3 RBC (4.00-5.30) mil/mm3 Hgb (11.6-15.3) gm/dL Hct (35.0-46.0) % MCV (80.0-100.0) fL MCHC (32.0-36.0) % Plt Count (150-450) th/mm3 Eos % (Auto) (0.0-4.0) % Neut # (Auto) (1.8-7.7) th/mm3 [place] # (Auto) (0.0-0.9) th/mm3 Eos # (Auto) (0.0-0.4) th/mm3 Abs Neuts (Manual) (1.8-7.7) th/mm3 Platelet Estimate (Normal) D-Dimer Quant (PE/DVT) (0.00-0.50) mg/L FEU O2 Saturation 87 L* (90-100) % ABG pH 7.17 L* 7.17 L* (7.380-7.420) ABG pCO2 32 L 31 L (38-42) mmHg ABG pO2 174 H 243 H (61-120) mmHg ABG HCO3 11 L* 11 L* (22-26) mmol/L ABG O2 Content 10.3 L 10.6 L (12.0-20.0) Vol % ABG Base Excess -15.7 L -16.3 L (-2-2) mmol/L ABG Methemoglobin 10.2 H* 3.4 H* (0-2) % Hemoglobin 8.2 L 7.6 L* (12.0-16.0) G/DL Potassium (3.5-5.1) meq/L Chloride (98-107) meq/L Carbon Dioxide (21.0-32.0) meq/L BUN (7-18) mg/dL Creatinine (0.50-1.00) mg/dL Estimated GFR (>89) mL/min POC Glucose 137 H (68-110) mg/dl Random Glucose (74-106) mg/dL Ferritin (8-252) ng/mL AST (15-37) U/L Total Protein (6.4-8.2) g/dL Albumin (3.4-5.0) g/dL Urine Clarity (Clear) Urine Protein (Neg-Trace) mg/dL Urine Occult Blood (Negative) Urine Nitrate (Negative) Urine Urobilinogen (Less than 2) mg/dL Ur Leukocyte Esterase (Negative) Urine RBC (0-3) /hpf Urine WBC Clumps (None) 01/08/19 01/08/19 Range/Units 07:27 07:27 WBC (4.0-11.0) th/mm3 RBC 2.71 L (4.00-5.30) mil/mm3 Hgb 8.6 L (11.6-15.3) gm/dL Hct 27.1 L (35.0-46.0) % MCV (80.0-100.0) fL MCHC 31.8 L (32.0-36.0) % Plt Count 465 H (150-450) th/mm3 Eos % (Auto) 6.7 H (0.0-4.0) % Neut # (Auto) (1.8-7.7) th/mm3 [place] # (Auto) (0.0-0.9) th/mm3 Eos # (Auto) 0.6 H (0.0-0.4) th/mm3 Abs Neuts (Manual) (1.8-7.7) th/mm3 Platelet Estimate (Normal) D-Dimer Quant (PE/DVT) (0.00-0.50) mg/L FEU O2 Saturation (90-100) % ABG pH (7.380-7.420) ABG pCO2 (38-42) mmHg ABG pO2 (61-120) mmHg ABG HCO3 (22-26) mmol/L ABG O2 Content (12.0-20.0) Vol % ABG Base Excess (-2-2) mmol/L ABG Methemoglobin (0-2) % Hemoglobin (12.0-16.0) G/DL Potassium 5.3 H (3.5-5.1) meq/L Chloride 121 H (98-107) meq/L Carbon Dioxide 12.5 L (21.0-32.0) meq/L BUN 61 H (7-18) mg/dL Creatinine 2.64 H (0.50-1.00) mg/dL Estimated GFR 18 L (>89) mL/min POC Glucose (68-110) mg/dl Random Glucose 137 H (74-106) mg/dL Ferritin (8-252) ng/mL AST 12 L (15-37) U/L Total Protein (6.4-8.2) g/dL Albumin 2.9 L (3.4-5.0) g/dL Urine Clarity (Clear) Urine Protein (Neg-Trace) mg/dL Urine Occult Blood (Negative) Urine Nitrate (Negative) Urine Urobilinogen (Less than 2) mg/dL Ur Leukocyte Esterase (Negative) Urine RBC (0-3) /hpf Urine WBC Clumps (None) Short CBC 01/07/19 01/08/19 Range/Units 14:54 07:27 WBC 15.1 H 8.6 (4.0-11.0) th/mm3 Hgb 9.4 L 8.6 L (11.6-15.3) gm/dL Hct 30.3 L 27.1 L (35.0-46.0) % Plt Count 549 H 465 H (150-450) th/mm3 BMP 01/07/19 01/07/19 01/08/19 14:54 20:55 07:27 Sodium 142 143 144 Potassium 5.6 H 5.0 5.3 H Chloride 119 H 120 H 121 H Carbon Dioxide 12.2 L 13.6 L 12.5 L BUN 64 H 64 H 61 H Creatinine 2.86 H 2.69 H 2.64 H Calcium 8.9 9.1 9.0 Cardiac Enzymes 01/07/19 Range/Units 14:54 Total Creatine Kinase 75 (26-192) U/L Troponin I 0.05 (0.02-0.05) ng/mL Liver Function 01/07/19 01/08/19 Range/Units 14:54 07:27 Total Bilirubin 0.3 0.3 (0.2-1.0) mg/dL AST 30 12 L (15-37) U/L ALT 19 12 (10-53) U/L Alkaline Phosphatase 94 86 (45-117) U/L Albumin 3.2 L 2.9 L (3.4-5.0) g/dL Urine 01/07/19 Range/Units 15:14 Urine Color [place] (Yellw/Straw) Urine Clarity Turbid H (Clear) Urine pH 5.0 (5.0-8.5) Ur Specific [place] 1.016 (1.002-1.035) Urine Protein 100 H (Neg-Trace) mg/dL Urine Glucose (UA) Negative (Negative) mg/dL <Clovisdavid Mullins,Ephraim - 01/08/19 08:44> - Imaging Impressions Abdomen/Bladder Ultrasound 01/07/19 00:00 CONCLUSION: 1. No evidence of hydronephrosis. No evidence of obstruction. The bladder wall posteriorly slightly thickened probably related to underdistention. Chest X-Ray 01/07/19 14:22 CONCLUSION: The lungs are clear. <Ephraim Lambert - 01/08/19 08:44> Physical Exam Vital signs: Vital Signs 01/08/19 12:00 01/08/19 16:00 01/08/19 20:00 Temperature 99.7 F H 98.6 F 98.1 F Pulse Rate 75 70 75 Respiratory Rate 14 15 18 Blood Pressure 138/64 143/60 H 181/75 H Pulse Oximetry 94 L 95 97 01/08/19 21:49 01/08/19 22:50 01/08/19 23:30 Temperature Pulse Rate 71 Respiratory Rate 16 18 Blood Pressure 164/72 H Pulse Oximetry 01/09/19 00:00 01/09/19 02:52 01/09/19 03:25 Temperature 98.7 F Pulse Rate 70 Respiratory Rate 18 18 18 Blood Pressure 152/67 H Pulse Oximetry 96 01/09/19 04:00 Temperature 98.9 F Pulse Rate 83 Respiratory Rate 18 Blood Pressure 141/77 H Pulse Oximetry 96 Intake & Output 01/08/19 01/09/19 01/09/19 18:59 06:59 18:59 Intake Total 630 / 630 220 / 220 1600 / 1600 Output Total 325 / 325 Balance 630 / 630 220 / 220 1275 / 1275 Weight 70.2 kg Intake: IV 350 / 350 100 / 100 NS Inj 1,000 ML @ 50 mls/hr IV. 350 / 350 CONT .Q20H LINDA Rx#:[id number] Rocephin Inj 1,000 MG In NS Inj 100 / 100 100 ML @ 200 mls/hr IV.SIG Q24H LINDA Rx#:[id number] Oral 280 / 280 120 / 120 Anesthesia Amount 1600 / 1600 Output: Estimated Blood Loss 75 / 75 Urine Amount (Catheter) 250 / 250 Indwelling Temp Sensing 250 / 250 Catheter Other: # Voids 4 # Urine Diapers 6 Date of Last Bowel Movement 01/05/19 01/05/19 # Bowel Movements 1 <Desirae Clark - 01/09/19 11:18> Vital Signs 01/07/19 14:07 01/07/19 14:09 01/07/19 14:22 Temperature 100.2 F H Pulse Rate 101 H 84 Respiratory Rate 20 20 Blood Pressure 135/63 170/72 H Pulse Oximetry 89 L 90 L 90 L 01/07/19 15:08 01/07/19 18:09 01/07/19 20:00 Temperature 97.9 F Pulse Rate 71 83 Respiratory Rate 16 22 Blood Pressure 143/62 H Pulse Oximetry 92 L 100 90 L 01/08/19 00:00 01/08/19 01:33 01/08/19 04:00 Temperature 97.7 F 98.1 F Pulse Rate 78 93 H Respiratory Rate 18 18 Blood Pressure 177/70 H 157/56 H Pulse Oximetry 90 L 94 L 93 L Intake & Output 01/07/19 01/08/19 01/08/19 18:59 06:59 18:59 Intake Total 100 / 100 Balance 100 / 100 Weight 68.039 kg 68.6 kg Intake: IV 100 / 100 Rocephin Inj 1,000 MG In NS Inj 100 / 100 100 ML @ 200 mls/hr IV.SIG ONCE ONE Rx#:[id number] Other: # Voids 8 Date of Last Bowel Movement 01/05/19 <[place] ,[facility] - 01/08/19 08:44> Narrative: GENERAL: 68 year old female lying flat in bed in NAD, on simple mask , breathing comfortably in no respiratory distress SKIN: Warm and dry. Minor venous stasis skin changes on LLE below the knee. HEAD: Normocephalic. Atraumatic. MMM. Oropharynx clear. EYES: No scleral icterus. No injection or drainage. EOMI. NECK: Supple, trachea midline. No JVD or lymphadenopathy. CARDIOVASCULAR: Mildly tachycardic (90s-100) with regular rhythm without murmurs , gallops, or rubs. Pedal pulses are non-palpable. RESPIRATORY: Breath sounds equal bilaterally. No accessory muscle use. No increased WOB. GASTROINTESTINAL: Abdomen soft, non-tender, nondistended. BS+. MUSCULOSKELETAL: No cyanosis, or edema. Left medial heel ulcer is clean and dry with 2cm x 2cm eschar, does not appear to have good granulation tissue at the base. No drainage, no surrounding erythema. BACK: Nontender without obvious deformity. <[place] ,Ephraim - 01/08/19 10:49> Assessment and Plan - Assessment (1) Hypoxia Code(s): R09.02 - Hypoxemia Status: Acute (2) Methemoglobinemia Code(s): D74.9 - Methemoglobinemia, unspecified Status: Acute (3) Complicated UTI (urinary tract infection) Code(s): N39.0 - Urinary tract infection, site not specified Status: Acute (4) Acute on chronic renal failure Code(s): N17.9 - Acute kidney failure, unspecified; N18.9 - Chronic kidney disease, unspecified Status: Acute (5) Generalized weakness Code(s): R53.1 - Weakness Status: Chronic (6) Diabetes mellitus with neuropathy Code(s): E11.40 - Type 2 diabetes mellitus with diabetic neuropathy, unspecified Status: Chronic (7) Peripheral artery disease Code(s): I73.9 - Peripheral vascular disease, unspecified Status: Chronic (8) Diabetic ulcer of heel Code(s): E11.621 - Type 2 diabetes mellitus with foot ulcer; L97.409 - Non- pressure chronic ulcer of unspecified heel and midfoot with unspecified severity Status: Chronic (9) Anemia Code(s): D64.9 - Anemia, unspecified Status: Acute (10) Hyperkalemia Code(s): E87.5 - Hyperkalemia Status: Acute (11) Nutrition, metabolism, and development symptoms Code(s): R63.8 - Other symptoms and signs concerning food and fluid intake Status: Acute <Desirae Clark - 01/09/19 11:18> (1) Hypoxia Code(s): R09.02 - Hypoxemia Status: Acute (2) Methemoglobinemia Code(s): D74.9 - Methemoglobinemia, unspecified Status: Acute (3) Complicated UTI (urinary tract infection) Code(s): N39.0 - Urinary tract infection, site not specified Status: Acute (4) Acute on chronic renal failure Code(s): N17.9 - Acute kidney failure, unspecified; N18.9 - Chronic kidney disease, unspecified Status: Acute (5) Generalized weakness Code(s): R53.1 - Weakness Status: Chronic (6) Diabetes mellitus with neuropathy Code(s): E11.40 - Type 2 diabetes mellitus with diabetic neuropathy, unspecified Status: Chronic (7) Peripheral artery disease Code(s): I73.9 - Peripheral vascular disease, unspecified Status: Chronic (8) Diabetic ulcer of heel Code(s): E11.621 - Type 2 diabetes mellitus with foot ulcer; L97.409 - Non- pressure chronic ulcer of unspecified heel and midfoot with unspecified severity Status: Chronic (9) Anemia Code(s): D64.9 - Anemia, unspecified Status: Acute (10) Hyperkalemia Code(s): E87.5 - Hyperkalemia Status: Acute (11) Nutrition, metabolism, and development symptoms Code(s): R63.8 - Other symptoms and signs concerning food and fluid intake Status: Acute <Kandavanam R3,Ephraim - 01/08/19 10:54> - Assessment and Plan 68 YO female with PMHx DM type 2, diabetic peripheral neuropathy, anemia, peripheral arterial disease s/p bypass in RLE, GERD, recurrent UTIs and CKD presented meeting sepsis criteria with WBC 15.1, tachycardia, RR at 20 but PaCO2 on ABG 29, temp 100.2, Lactate 0.7 and UTI with UA leuko esterase and nitrate positive, moderate blood, WBC clumps. Additionally, pt presents with hypoxia and O2 sats in the 80s, macrocytic anemia, methemoglobinemia 9.6%, acute on chronic renal failure, and chronic diabetic left heel ulcer scheduled for surgery on 01/[address] Mauricio. Hypoxia, dizziness and weakness -Consider secondary to methemoglobinemia -O2 sats appropriate on supplemental oxygen -Tachycardia resolved -CXR negative -Continue supplemental O2 to maintain O2 sats > 92%, wean as tolerated -Appreciate PT Sepsis 2/2 UTI -Continue Rocephin 1 gm IV q24h -Follow urine culture and sensitivity -Of note, the patient does have a history of UTI growing Pseudomonas as well as VRE -May consider ID consult pending urine culture results or if patient remains symptomatic despite current therapy -Renal/bladder US w/no evidence of hydronephrosis, but posterior bladder wall slightly thickened Recurrent UTIs -Plan as above -Consider Urology consult, per comments in [place] Methemoglobinemia -Repeat ABG is improved s/p Methylene Blue 50 mg IV -G6PD pending -Stop potential offending drugs: pt was recently on Bactrim (Sulfanomides) and on ASA --Holding home ASA 325mg Acute on chronic renal failure -Cr 2.86 with baseline since March of Cr 1.74 and BUN 64 -Gentle IVF @ 50 mls/hr (and due to CHF) -Consult nephrology--appreciate recs -Renal diet, NPO after MN Diabetes type 2 -A1C on 12/07/18 was 5.4 -Accuchecks -Low SSI Macrocytic anemia -Unclear etiology (hemolysis? malabsorption from chronic PPI? occult bleed?) -Iron profile suggesting anemia of chronic disease -B12 at the upper limits of normal -Pt states she is non-compliant with Iron sulfate treatment due to constipation -Heme occult -If repeat ABG showing Hgb near 7.0, consider transfusion PAD with LLE Chronic diabetic ulcer -Wound nurse consult -Consult Dr. Mauricio, vascular surgery--appreciate recs -Dr. Mauricio would like to take to surgery as planned, 01/09/19 -Continue home [place] 10/325 mg q6h prn pain Peripheral neuropathy 2/2 diabetes -Continue home Lyrica 75 mg daily Hyperkalemia -Likely due to metabolic acidosis and acute kidney unjury -Continue to monitor, will repeat BMP this afternoon -May resolve with resolving metabolic acidosis and improvement of renal function -Consider Ca gluconate or Kayexalate if needed -EKG on admission in NSR FEN/GI/PPx: -Fluids: continue 2 NS with Na HCO3 per nephrology -Electrolytes: Continue to monitor -Nutrition: renal diet; NPO at midnight 01/08 due to surgery 01/09 -GI ppx: continue home Protonix 40 mg PO daily -DVT ppx: Lovenox 40 mg SQ daily; Hold Lovenox after AM dose on 01/08 due to surgery 01/09 <Ephraim Lambert - 01/08/19 10:59> - Attending Attestation The exam, history, and the medical decision-making described in the above note were completed with the assistance of the resident physician. I reviewed and agree with the findings presented. I attest that I had a [id number] encounter with the patient on the same day, and personally performed and documented my assessment and findings in the medical record. pt was speaking in full sentences and comfortable in bed this am. she easily transitioned down to nasal canula and was improving with her oxygenation. suspect this was a result of her bactrim as she did not have any other reason that could be discerned. she is eager to have her surgery tomorrow with dr Mauricio <Desirae Clark - 01/09/19 11:18> <Ephraim Lambert - Last Filed: 01/08/19 10:54> (4) Acute on chronic renal failure Qualifiers: Chronic kidney disease stage: stage 3 (moderate) (6) Diabetes mellitus with neuropathy Qualifiers: Diabetes mellitus type: type 2 Diabetes mellitus retirement insulin use: with retirement use Qualified Code(s): E11.40 - Type 2 diabetes mellitus with diabetic neuropathy, unspecified; Z79.4 - shelter (current) use of insulin (8) Diabetic ulcer of heel Qualifiers: Diabetes mellitus type: type 2 Laterality: left Non-pressure ulcer stage: unspecified non-pressure ulcer stage Qualified Code(s): E11.621 - Type 2 diabetes mellitus with foot ulcer; L97.429 - Non-pressure chronic ulcer of left heel and midfoot with unspecified severity <Desirae Clark - Last Filed: 01/09/19 11:18> (4) Acute on chronic renal failure Qualifiers: Chronic kidney disease stage: stage 3 (moderate) (6) Diabetes mellitus with neuropathy Qualifiers: Diabetes mellitus type: type 2 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: with long term acute care registered nurse use Qualified Code(s): E11.40 - Type 2 diabetes mellitus with diabetic neuropathy, unspecified; 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 <Kashmir MullinsEphraim - Last Filed: 01/08/19 10:54> (4) Acute on chronic renal failure Qualifiers: Chronic kidney disease stage: stage 3 (moderate) (6) Diabetes mellitus with neuropathy Qualifiers: Diabetes mellitus type: type 2 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: with 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 use Qualified Code(s): E11.40 - Type 2 diabetes mellitus with diabetic neuropathy, unspecified; Z79.4 - shelter (current) use of insulin (8) Diabetic ulcer of heel Qualifiers: Diabetes mellitus type: type 2 Laterality: left Non-pressure ulcer stage: unspecified non-pressure ulcer stage Qualified Code(s): E11.621 - Type 2 diabetes mellitus with foot ulcer; L97.429 - Non-pressure chronic ulcer of left heel and midfoot with unspecified severity <Desirae Clark - Last Filed: 01/09/19 11:18> (4) Acute on chronic renal failure Qualifiers: Chronic kidney disease stage: stage 3 (moderate) (6) Diabetes mellitus with neuropathy Qualifiers: Diabetes mellitus type: type 2 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
--- NOTE | 2019-01-08 09:20 | P.CONVS ---
History of Present Illness Service: Vascular Surgery Consult date: 01/08/19 Requesting Physician: Kwame Pavon III R2 Reason for Consult: L LE ischemia Primary Care Provider: Kirit Vega MD, R3 Chief Complaint: dizzy, short of breath, weakness History of Present Illness: 68 yo female well known to me who was scheduled for a LEFT leg bypass on Monday 01/08 but was admitted for SOB and UTI. Pt feels well at present except for LEFT foot pain. Has a history of a RIGHT leg bypass that helped heal a foot wound and she has no RIGHT leg complaints. In terms of her breathing, she denies SOB at present although is on a NRB. 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 (Acute) Anemia CHF (congestive heart failure) CKD (chronic kidney disease), stage III CRI (chronic renal insufficiency) Cyst of right kidney Diabetes Foramen ovale Gastroparesis HTN (hypertension) MDRO (multiple drug resistant organisms) resistance Onset Date: ~09/29/18 Neuropathy PAD (peripheral artery disease) PVD (peripheral vascular disease) Pressure ulcer of left heel, unspecified stage Risk for falls TIA (transient ischemic attack) Uses wheelchair Weakness Wears glasses - Surgical History Surgical History: Surgical History (Last Reviewed 01/08/19 @ 09:19 by Daniel Mauricio MD) Hx of section Hx of cystoscopy Hx of extremity bypass graft - Family History Family History: Family History (Last Reviewed 01/07/19 @ 20:50 by Alejandra Cannon MD) Father Cardiovascular disease Mother Diabetes - Tobacco History Second Hand Smoke Exposure: No Smoking Status: Never smoker - Alcohol History How Often Do You Have a Drink Containing Alcohol: Never - Substance Use History Substance History: No History of Abuse - Travel History History of Recent Travel: No Recent Travel in the [place] Within the Last 8 Weeks: No Recent Travel Out of the Country Within the Last 8 Weeks: No - Immunization History Tetanus Immunization: <5 Years Hx Influenza Vaccine This Season: Yes Medications and Allergies Active Medications: Active Medications Acetaminophen (Tylenol) 650 mg PO Q4H PRN PRN Reason: Temp > 100.4 Hydrocodone Bitart/Acetaminophen ([place] 10/325) 1 tab PO Q6H PRN PRN Reason: PAIN SCALE 1 TO 10 Ascorbic Acid (Vitamin C) 1,000 mg PO DAILY [facility] Dextrose (D50w Vial) 50 ml IV.PUSH UNSCH PRN PRN Reason: PER HYPOGLYCEMIA PROTOCOL Docusate Sodium (Colace) 100 mg PO DAILY [facility] Enoxaparin Sodium (Lovenox Inj) 30 mg SQ Q24H [facility] Stop: 01/08/19 10:00 Last Admin: 01/07/19 21:25 Dose: 30 mg Glucagon (Glucagon Inj) 1 mg OTHER PRN PRN PRN Reason: for Hypoglycemia Protocol Ceftriaxone Sodium 1,000 mg/ (Sodium Chloride) 100 mls @ 200 mls/hr IV.SIG Q24H [facility] Sodium Chloride (Ns Inj) 1,000 mls @ 50 mls/hr IV.CONT .Q20H [facility] Last Admin: 01/07/19 21:30 Dose: 50 mls/hr Insulin Aspart (Novolog Insulin Correctional Sugar Inj) 0 unit SQ ACHS [facility]; Protocol Last Admin: 01/08/19 00:06 Dose: Not Given Multivitamins (Theragran) 1 tab PO DAILY [facility] Ondansetron HCl (Zofran Inj) 4 mg IV.PUSH Q6H PRN PRN Reason: NAUSEA OR VOMITING Pantoprazole Sodium (Protonix) 40 mg PO DAILY [facility] Pravastatin Sodium (Pravachol) 10 mg PO HS [facility] Pregabalin (Lyrica) 75 mg PO BID [facility] Last Admin: 01/07/19 21:25 Dose: 75 mg Sodium Chloride (Ns Flush) 2 ml IV.FLUSH BID [facility] Last Admin: 01/07/19 21:26 Dose: 2 ml Sodium Chloride (Ns Flush) 2 ml IV.FLUSH PRN PRN PRN Reason: FLUSH AFTER USING IV ACCESS Allergies Allergy/AdvReac Type Severity Reaction Status Date / Time clonidine AdvReac Severe Chest Pain Verified 01/07/19 14:09 metformin AdvReac Severe Dizziness Verified 01/07/19 14:09 Home Medications Medication Instructions Recorded Confirmed Type multivitamin with folic acid 1 tab PO DAILY 05/27/18 01/07/19 History [Thera] docusate sodium [Colace] 100 mg PO DAILY 01/02/19 01/07/19 History pravastatin 10 mg PO DAILY 01/02/19 01/07/19 History diphenhydramine HCl [Benadryl] 25 mg PO DAILY 01/07/19 01/07/19 History Physical Exam Vital Signs / I&O: Vital Signs 01/07/19 14:07 01/07/19 14:09 01/07/19 14:22 Temperature 100.2 F H Pulse Rate 101 H 84 Respiratory Rate 20 20 Blood Pressure 135/63 170/72 H Pulse Oximetry 89 L 90 L 90 L 01/07/19 15:08 01/07/19 18:09 01/07/19 20:00 Temperature 97.9 F Pulse Rate 71 83 Respiratory Rate 16 22 Blood Pressure 143/62 H Pulse Oximetry 92 L 100 90 L 01/08/19 00:00 01/08/19 01:33 01/08/19 04:00 Temperature 97.7 F 98.1 F Pulse Rate 78 93 H Respiratory Rate 18 18 Blood Pressure 177/70 H 157/56 H Pulse Oximetry 90 L 94 L 93 L 01/08/19 09:14 Temperature Pulse Rate Respiratory Rate Blood Pressure Pulse Oximetry 92 L Intake & Output 01/07/19 01/08/19 01/08/19 18:59 06:59 18:59 Intake Total 100 / 100 Balance 100 / 100 Weight 68.039 kg 68.6 kg Intake: IV 100 / 100 Rocephin Inj 1,000 MG In NS Inj 100 / 100 100 ML @ 200 mls/hr IV.SIG ONCE ONE Rx#:[id number] Other: # Voids 8 Date of Last Bowel Movement 01/05/19 Neuro: alert, no distress, BAILEY HEENT: NC/AT; on NRB at present Neck: no JVD Heart: reg rate Lungs: clear to bases Vascular: no palpable pedal pulses R LE incisions healed Laboratory Results - last 24 hr 01/07/19 01/07/19 01/07/19 00:59 14:42 14:54 WBC 15.1 H RBC 3.01 L Hgb 9.4 L Hct 30.3 L MCV 100.5 H MCH 31.2 MCHC 31.1 L RDW 16.0 Plt Count 549 H MPV 7.9 Prelim Diff (Auto) Slide review pending Neut % (Auto) 55.7 Lymph % (Auto) 28.5 [place] % (Auto) 8.0 Eos % (Auto) 6.7 H Baso % (Auto) 1.1 Neut # (Auto) 8.4 H Lymph # (Auto) 4.3 [place] # (Auto) 1.2 H Eos # (Auto) 1.0 H Baso # (Auto) 0.2 WBC Differential Manual diff final Seg Neuts % (Manual) 63 Band Neuts % (Manual) 4 Lymphocytes % (Manual) 20 Monocytes % (Manual) 7 Eosinophils % (Manual) 4 Basophils % (Manual) 2 Abs Neuts (Manual) 10.1 H Differential Comment . Platelet Estimate High H Platelet Morphology Normal PT INR APTT D-Dimer Quant (PE/DVT) Puncture Site Right radial Left radial Patient Temperature 98.6 98.6 O2 Saturation 87 L* 88 L* ABG pH 7.16 L* 7.19 L* ABG pCO2 32 L 29 L ABG pO2 178 H 186 H ABG HCO3 11 L* 10 L* ABG O2 Content 11.4 L 10.2 L ABG Base Excess -15.9 L -16.2 L ABG Methemoglobin 10.2 H* 9.6 H* Melo Test Present Present Hemoglobin 9.0 L 7.9 L* Carboxyhemoglobin 0.2 0.2 O2 Delivery Device Nasal cannula Nasal cannula Liter Flow 4.00 5.00 Critical Value Yes Yes Sodium Potassium Chloride Carbon Dioxide Anion Gap BUN Creatinine Estimated GFR POC Glucose Random Glucose Lactic Acid Calcium Magnesium Iron TIBC % Saturation Ferritin Total Bilirubin AST ALT Alkaline Phosphatase Total Creatine Kinase Troponin I B-Natriuretic Peptide Total Protein Albumin Vitamin B12 Urine Color Urine Clarity Urine pH Ur Specific [place] Urine Protein Urine Glucose (UA) Urine Ketones Urine Occult Blood Urine Nitrate Urine Bilirubin Urine Ictotest Urine Urobilinogen Ur Leukocyte Esterase Urine RBC Urine WBC Urine WBC Clumps Ur Squamous Epith Cells Micro UA Comment Ur Microscopic Review Urine Culture Comments Blood Type Antibody Screen 01/07/19 01/07/19 01/07/19 14:54 14:54 14:54 WBC RBC Hgb Hct MCV MCH MCHC RDW Plt Count MPV Prelim Diff (Auto) Neut % (Auto) Lymph % (Auto) [place] % (Auto) Eos % (Auto) Baso % (Auto) Neut # (Auto) Lymph # (Auto) [place] # (Auto) Eos # (Auto) Baso # (Auto) WBC Differential Seg Neuts % (Manual) Band Neuts % (Manual) Lymphocytes % (Manual) Monocytes % (Manual) Eosinophils % (Manual) Basophils % (Manual) Abs Neuts (Manual) Differential Comment Platelet Estimate Platelet Morphology PT INR APTT D-Dimer Quant (PE/DVT) Puncture Site Patient Temperature O2 Saturation ABG pH ABG pCO2 ABG pO2 ABG HCO3 ABG O2 Content ABG Base Excess ABG Methemoglobin Melo Test Hemoglobin Carboxyhemoglobin O2 Delivery Device Liter Flow Critical Value Sodium 142 Potassium 5.6 H Chloride 119 H Carbon Dioxide 12.2 L Anion Gap 11 BUN 64 H Creatinine 2.86 H Estimated GFR 16 L POC Glucose Random Glucose 160 H Lactic Acid Calcium 8.9 Magnesium 2.2 Iron 119 TIBC 353 % Saturation 33.7 Ferritin 943 H Total Bilirubin 0.3 AST 30 ALT 19 Alkaline Phosphatase 94 Total Creatine Kinase 75 Troponin I 0.05 B-Natriuretic Peptide Total Protein 9.1 H Albumin 3.2 L Vitamin B12 921 Urine Color Urine Clarity Urine pH Ur Specific [place] Urine Protein Urine Glucose (UA) Urine Ketones Urine Occult Blood Urine Nitrate Urine Bilirubin Urine Ictotest Urine Urobilinogen Ur Leukocyte Esterase Urine RBC Urine WBC Urine WBC Clumps Ur Squamous Epith Cells Micro UA Comment Ur Microscopic Review Urine Culture Comments Blood Type Antibody Screen 01/07/19 01/07/19 01/07/19 15:14 16:40 16:40 WBC RBC Hgb Hct MCV MCH MCHC RDW Plt Count MPV Prelim Diff (Auto) Neut % (Auto) Lymph % (Auto) [place] % (Auto) Eos % (Auto) Baso % (Auto) Neut # (Auto) Lymph # (Auto) [place] # (Auto) Eos # (Auto) Baso # (Auto) WBC Differential Seg Neuts % (Manual) Band Neuts % (Manual) Lymphocytes % (Manual) Monocytes % (Manual) Eosinophils % (Manual) Basophils % (Manual) Abs Neuts (Manual) Differential Comment Platelet Estimate Platelet Morphology PT 10.0 INR 1.0 APTT 28.7 D-Dimer Quant (PE/DVT) 0.64 H Puncture Site Patient Temperature O2 Saturation ABG pH ABG pCO2 ABG pO2 ABG HCO3 ABG O2 Content ABG Base Excess ABG Methemoglobin Melo Test Hemoglobin Carboxyhemoglobin O2 Delivery Device Liter Flow Critical Value Sodium Potassium Chloride Carbon Dioxide Anion Gap BUN Creatinine Estimated GFR POC Glucose Random Glucose Lactic Acid 0.7 Calcium Magnesium Iron TIBC % Saturation Ferritin Total Bilirubin AST ALT Alkaline Phosphatase Total Creatine Kinase Troponin I B-Natriuretic Peptide Total Protein Albumin Vitamin B12 Urine Color [place] Urine Clarity Turbid H Urine pH 5.0 Ur Specific [place] 1.016 Urine Protein 100 H Urine Glucose (UA) Negative Urine Ketones Negative Urine Occult Blood Moderate H Urine Nitrate Positive H Urine Bilirubin Negative Urine Ictotest Negative Urine Urobilinogen 2.0 H Ur Leukocyte Esterase Moderate H Urine RBC 45 H Urine WBC Urine WBC Clumps Many H Ur Squamous Epith Cells 2 Micro UA Comment Culture indicated Ur Microscopic Review Not Reportable Urine Culture Comments Culture indicated Blood Type Antibody Screen 01/07/19 01/07/19 01/07/19 16:40 16:40 20:03 WBC RBC Hgb Hct MCV MCH MCHC RDW Plt Count MPV Prelim Diff (Auto) Neut % (Auto) Lymph % (Auto) [place] % (Auto) Eos % (Auto) Baso % (Auto) Neut # (Auto) Lymph # (Auto) [place] # (Auto) Eos # (Auto) Baso # (Auto) WBC Differential Seg Neuts % (Manual) Band Neuts % (Manual) Lymphocytes % (Manual) Monocytes % (Manual) Eosinophils % (Manual) Basophils % (Manual) Abs Neuts (Manual) Differential Comment Platelet Estimate Platelet Morphology PT INR APTT D-Dimer Quant (PE/DVT) Puncture Site Left radial Patient Temperature 98.6 O2 Saturation 86 L* ABG pH 7.18 L* ABG pCO2 33 L ABG pO2 142 H ABG HCO3 12 L* ABG O2 Content 13.8 ABG Base Excess -14.9 L ABG Methemoglobin 10.4 H* Melo Test Present Hemoglobin 11.1 L Carboxyhemoglobin 0.1 O2 Delivery Device Nasal cannula Liter Flow 2.00 Critical Value Yes Sodium Potassium Chloride Carbon Dioxide Anion Gap BUN Creatinine Estimated GFR POC Glucose Random Glucose Lactic Acid Calcium Magnesium Iron TIBC % Saturation Ferritin Total Bilirubin AST ALT Alkaline Phosphatase Total Creatine Kinase Troponin I B-Natriuretic Peptide 50 Total Protein Albumin Vitamin B12 Urine Color Urine Clarity Urine pH Ur Specific [place] Urine Protein Urine Glucose (UA) Urine Ketones Urine Occult Blood Urine Nitrate Urine Bilirubin Urine Ictotest Urine Urobilinogen Ur Leukocyte Esterase Urine RBC Urine WBC Urine WBC Clumps Ur Squamous Epith Cells Micro UA Comment Ur Microscopic Review Urine Culture Comments Blood Type A Positive Antibody Screen Negative 01/07/19 01/08/19 01/08/19 20:55 00:05 00:59 WBC RBC Hgb Hct MCV MCH MCHC RDW Plt Count MPV Prelim Diff (Auto) Neut % (Auto) Lymph % (Auto) [place] % (Auto) Eos % (Auto) Baso % (Auto) Neut # (Auto) Lymph # (Auto) [place] # (Auto) Eos # (Auto) Baso # (Auto) WBC Differential Seg Neuts % (Manual) Band Neuts % (Manual) Lymphocytes % (Manual) Monocytes % (Manual) Eosinophils % (Manual) Basophils % (Manual) Abs Neuts (Manual) Differential Comment Platelet Estimate Platelet Morphology PT INR APTT D-Dimer Quant (PE/DVT) Puncture Site Right radial Patient Temperature 98.6 O2 Saturation 87 L* ABG pH 7.17 L* ABG pCO2 32 L ABG pO2 174 H ABG HCO3 11 L* ABG O2 Content 10.3 L ABG Base Excess -15.7 L ABG Methemoglobin 10.2 H* Melo Test Present Hemoglobin 8.2 L Carboxyhemoglobin 0.3 O2 Delivery Device Nasal cannula Liter Flow 4.00 Critical Value Yes Sodium 143 Potassium 5.0 Chloride 120 H Carbon Dioxide 13.6 L Anion Gap 9 BUN 64 H Creatinine 2.69 H Estimated GFR 18 L POC Glucose 137 H Random Glucose 145 H Lactic Acid Calcium 9.1 Magnesium Iron TIBC % Saturation Ferritin Total Bilirubin AST ALT Alkaline Phosphatase Total Creatine Kinase Troponin I B-Natriuretic Peptide Total Protein Albumin Vitamin B12 Urine Color Urine Clarity Urine pH Ur Specific [place] Urine Protein Urine Glucose (UA) Urine Ketones Urine Occult Blood Urine Nitrate Urine Bilirubin Urine Ictotest Urine Urobilinogen Ur Leukocyte Esterase Urine RBC Urine WBC Urine WBC Clumps Ur Squamous Epith Cells Micro UA Comment Ur Microscopic Review Urine Culture Comments Blood Type Antibody Screen 01/08/19 01/08/19 01/08/19 05:57 07:27 07:27 WBC 8.6 RBC 2.71 L Hgb 8.6 L Hct 27.1 L MCV 100.0 MCH 31.8 MCHC 31.8 L RDW 15.8 Plt Count 465 H MPV 7.1 Prelim Diff (Auto) Neut % (Auto) 55.8 Lymph % (Auto) 29.0 [place] % (Auto) 7.3 Eos % (Auto) 6.7 H Baso % (Auto) 1.2 Neut # (Auto) 4.8 Lymph # (Auto) 2.5 [place] # (Auto) 0.6 Eos # (Auto) 0.6 H Baso # (Auto) 0.1 WBC Differential . Seg Neuts % (Manual) Band Neuts % (Manual) Lymphocytes % (Manual) Monocytes % (Manual) Eosinophils % (Manual) Basophils % (Manual) Abs Neuts (Manual) Differential Comment Auto diff final Platelet Estimate Platelet Morphology PT INR APTT D-Dimer Quant (PE/DVT) Puncture Site Right radial Patient Temperature 98.6 O2 Saturation 94 ABG pH 7.17 L* ABG pCO2 31 L ABG pO2 243 H ABG HCO3 11 L* ABG O2 Content 10.6 L ABG Base Excess -16.3 L ABG Methemoglobin 3.4 H* Melo Test Present Hemoglobin 7.6 L* Carboxyhemoglobin 0.6 O2 Delivery Device Simple mask Liter Flow 10.00 Critical Value Yes Sodium 144 Potassium 5.3 H Chloride 121 H Carbon Dioxide 12.5 L Anion Gap 11 BUN 61 H Creatinine 2.64 H Estimated GFR 18 L POC Glucose Random Glucose 137 H Lactic Acid Calcium 9.0 Magnesium Iron TIBC % Saturation Ferritin Total Bilirubin 0.3 AST 12 L ALT 12 Alkaline Phosphatase 86 Total Creatine Kinase Troponin I B-Natriuretic Peptide Total Protein 8.2 D Albumin 2.9 L Vitamin B12 Urine Color Urine Clarity Urine pH Ur Specific [place] Urine Protein Urine Glucose (UA) Urine Ketones Urine Occult Blood Urine Nitrate Urine Bilirubin Urine Ictotest Urine Urobilinogen Ur Leukocyte Esterase Urine RBC Urine WBC Urine WBC Clumps Ur Squamous Epith Cells Micro UA Comment Ur Microscopic Review Urine Culture Comments Blood Type Antibody Screen 01/08/19 08:56 WBC RBC Hgb Hct MCV MCH MCHC RDW Plt Count MPV Prelim Diff (Auto) Neut % (Auto) Lymph % (Auto) [place] % (Auto) Eos % (Auto) Baso % (Auto) Neut # (Auto) Lymph # (Auto) [place] # (Auto) Eos # (Auto) Baso # (Auto) WBC Differential Seg Neuts % (Manual) Band Neuts % (Manual) Lymphocytes % (Manual) Monocytes % (Manual) Eosinophils % (Manual) Basophils % (Manual) Abs Neuts (Manual) Differential Comment Platelet Estimate Platelet Morphology PT INR APTT D-Dimer Quant (PE/DVT) Puncture Site Patient Temperature O2 Saturation ABG pH ABG pCO2 ABG pO2 ABG HCO3 ABG O2 Content ABG Base Excess ABG Methemoglobin Melo Test Hemoglobin Carboxyhemoglobin O2 Delivery Device Liter Flow Critical Value Sodium Potassium Chloride Carbon Dioxide Anion Gap BUN Creatinine Estimated GFR POC Glucose 150 H Random Glucose Lactic Acid Calcium Magnesium Iron TIBC % Saturation Ferritin Total Bilirubin AST ALT Alkaline Phosphatase Total Creatine Kinase Troponin I B-Natriuretic Peptide Total Protein Albumin Vitamin B12 Urine Color Urine Clarity Urine pH Ur Specific [place] Urine Protein Urine Glucose (UA) Urine Ketones Urine Occult Blood Urine Nitrate Urine Bilirubin Urine Ictotest Urine Urobilinogen Ur Leukocyte Esterase Urine RBC Urine WBC Urine WBC Clumps Ur Squamous Epith Cells Micro UA Comment Ur Microscopic Review Urine Culture Comments Blood Type Antibody Screen Microbiology 01/07/19 15:14 Influenza Types A,B Antigen - Final Nasal Wash Negative for FLU A and B antigen Infection due to influenza A or B cannot be ruled out since the antigen present in the sample may be below the detection limit of the test. Impressions Abdomen/Bladder Ultrasound 01/07/19 00:00 CONCLUSION: 1. No evidence of hydronephrosis. No evidence of obstruction. The bladder wall posteriorly slightly thickened probably related to underdistention. Chest X-Ray 01/07/19 14:22 CONCLUSION: The lungs are clear.
[2019-01-08] MEDS: Ascorbic Acid 500 MG Tablet PO SCH (10:30)
[2019-01-08] MEDS: Docusate Sodium 100 MG Capsule PO SCH (10:30)
[2019-01-08] MEDS: Pregabalin 75 MG Capsule PO SCH ×2 (10:30→20:45)
[2019-01-08] MEDS: Sodium Bicarbonate 8.4% Inj 75 MEQ in Sodium Chloride 0.45 % Inj 1,000 ML IV.CONT SCH (12:21)
--- NOTE | 2019-01-08 14:18 | ECG ---
Date Performed: 01/07/2019 Time Performed: 14:24:39 PTAGE: 68 years EKG: Sinus rhythm NORMAL ECG Since the PREVIOUS TRACING , no significant change noted PREVIOUS TRACIN09/24/2018 11.09 DOCTOR: Hussain Connell Interpretating Date/Time 01/08/2019 14:13:17
[2019-01-08 15:46] LABS: Calcium 8.9 mg/dL (8.5-10.1); Carbon Dioxide 14.8 meq/L (21.0-32.0); Potassium 4.8 meq/L (3.5-5.1)
--- NOTE | 2019-01-08 19:57 | P.PNNP ---
Subjective Interval history: Patient was seen, no distress. Patient placed on bicarb drip, CO2 is 12.5. <Marylin Alejo - Last Filed: 01/08/19 19:49> Physical Exam Vital signs: Vital Signs 01/07/19 20:00 01/08/19 00:00 01/08/19 01:33 Temperature 97.9 F 97.7 F Pulse Rate 83 78 Respiratory Rate 22 18 Blood Pressure 143/62 H 177/70 H Pulse Oximetry 90 L 90 L 94 L 01/08/19 04:00 01/08/19 08:00 01/08/19 09:14 Temperature 98.1 F 98.4 F Pulse Rate 93 H 80 Respiratory Rate 18 12 Blood Pressure 157/56 H 116/67 Pulse Oximetry 93 L 96 92 L 01/08/19 12:00 01/08/19 16:00 Temperature 99.7 F H 98.6 F Pulse Rate 75 70 Respiratory Rate 14 15 Blood Pressure 138/64 143/60 H Pulse Oximetry 94 L 95 Intake & Output 01/08/19 01/08/19 01/09/19 06:59 18:59 06:59 Intake Total 630 / 630 100 / 100 Balance 630 / 630 100 / 100 Weight 68.6 kg Intake: IV 350 / 350 100 / 100 NS Inj 1,000 ML @ 50 mls/hr IV. 350 / 350 CONT .Q20H [facility] Rx#:[id number] Rocephin Inj 1,000 MG In NS Inj 100 / 100 100 ML @ 200 mls/hr IV.SIG Q24H [facility] Rx#:[id number] Oral 280 / 280 Other: # Voids 8 # Urine Diapers 6 Date of Last Bowel Movement 01/05/19 01/05/19 Narrative: GENERAL: NAD HEAD: Normocephalic. Atraumatic. MMM. Oropharynx clear. EYES: No scleral icterus. No injection or drainage. EOMI. NECK: Supple, trachea midline. No JVD or lymphadenopathy. CARDIOVASCULAR: regular rhythm without murmurs, gallops, or rubs. RESPIRATORY: Breath sounds equal bilaterally. No accessory muscle use. GASTROINTESTINAL: Abdomen soft, non-tender, nondistended. BS+. MUSCULOSKELETAL: No cyanosis, or edema.y. <Marylin Alejo - Last Filed: 01/08/19 19:49> Vital signs: Vital Signs 01/08/19 08:00 01/08/19 09:14 01/08/19 12:00 Temperature 98.4 F 99.7 F H Pulse Rate 80 75 Respiratory Rate 12 14 Blood Pressure 116/67 138/64 Pulse Oximetry 96 92 L 94 L 01/08/19 16:00 01/08/19 20:00 01/08/19 21:49 Temperature 98.6 F 98.1 F Pulse Rate 70 75 71 Respiratory Rate 15 18 Blood Pressure 143/60 H 181/75 H 164/72 H Pulse Oximetry 95 97 01/08/19 22:50 01/08/19 23:30 01/09/19 00:00 Temperature 98.7 F Pulse Rate 70 Respiratory Rate 16 18 18 Blood Pressure 152/67 H Pulse Oximetry 96 01/09/19 02:52 01/09/19 03:25 01/09/19 04:00 Temperature 98.9 F Pulse Rate 83 Respiratory Rate 18 18 18 Blood Pressure 141/77 H Pulse Oximetry 96 Intake & Output 01/08/19 01/08/19 01/09/19 06:59 18:59 06:59 Intake Total 630 / 630 100 / 100 Balance 630 / 630 100 / 100 Weight 68.6 kg Intake: IV 350 / 350 100 / 100 NS Inj 1,000 ML @ 50 mls/hr IV. 350 / 350 CONT .Q20H [facility] Rx#:[id number] Rocephin Inj 1,000 MG In NS Inj 100 / 100 100 ML @ 200 mls/hr IV.SIG Q24H [facility] Rx#:[id number] Oral 280 / 280 Other: # Voids 8 # Urine Diapers 6 Date of Last Bowel Movement 01/05/19 01/05/19 01/05/19 <Jarred Pan - Last Filed: 01/09/19 06:21> Assessment and Plan - Assessment (1) Acute on chronic renal failure Code(s): N17.9 - Acute kidney failure, unspecified; N18.9 - Chronic kidney disease, unspecified Status: Acute Qualifiers: Chronic kidney disease stage: stage 3 (moderate) Plan: Patient had UTI and was on Bactrim for 10 days which could have caused acute worsening. Baseline Creatinine around 1.7-1.8. Current creatinine is 2.64. Ultrasound of the kidney did not reveal any obstruction or hydronephrosis. Etiology of CKD likely due to diabetic nephropathy. Proteinuria on UA. Placed on Bicarb drip, CO2 12.5. Monitor fluid and electrolytes. Avoid nephrotoxic agents. (2) Diabetes mellitus with neuropathy Code(s): E11.40 - Type 2 diabetes mellitus with diabetic neuropathy, unspecified Status: Chronic Qualifiers: Diabetes mellitus type: type 2 Diabetes mellitus usp insulin use: with usp use Qualified Code(s): E11.40 - Type 2 diabetes mellitus with diabetic neuropathy, unspecified; Z79.4 - manager intermediate (current) use of insulin Plan: Insulin coverage to maintain blood glucose levels between 140 and 180 while hospitalized. (3) Hypertension Code(s): I10 - Essential (primary) hypertension Status: Chronic Qualifiers: Hypertension type: essential hypertension Qualified Code(s): I10 - Essential (primary) hypertension Plan: Patient blood pressure did fluctuate it may need treatment continue to observe (4) Acute UTI Code(s): N39.0 - Urinary tract infection, site not specified Status: Acute Plan: She was given ceftriaxone, follow cultures. 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 Code(s): I70.309 - Unspecified atherosclerosis of unspecified type of bypass graft(s) of the extremities, unspecified extremity Status: Acute Plan: Patient is following with vascular surgery <Marylin Alejo - Last Filed: 01/08/19 19:49> - Assessment (1) Acute on chronic renal failure Code(s): N17.9 - Acute kidney failure, unspecified; N18.9 - Chronic kidney disease, unspecified Status: Acute Qualifiers: Chronic kidney disease stage: stage 3 (moderate) (2) Diabetes mellitus with neuropathy Code(s): E11.40 - Type 2 diabetes mellitus with diabetic neuropathy, unspecified Status: Chronic Qualifiers: Diabetes mellitus type: type 2 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 mellitus termite inspector insulin use: with termite inspector use Qualified Code(s): E11.40 - Type 2 diabetes mellitus with diabetic neuropathy, unspecified; Z79.4 - manager intermediate (current) use of insulin (3) Hypertension Code(s): I10 - Essential (primary) hypertension Status: Chronic Qualifiers: Hypertension type: essential hypertension Qualified Code(s): I10 - Essential (primary) hypertension (4) Acute UTI Code(s): N39.0 - Urinary tract infection, site not specified Status: Acute 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 Agree with above assessment and plan. <Jarred Pan - Last Filed: 01/09/19 06:21>
[2019-01-09 05:31] LABS: Baso # (Auto) 0.1 th/mm3 (0.0-0.2); Baso % (Auto) 1.3 % (0.0-2.0); Eos # (Auto) 0.7 th/mm3 (0.0-0.4); Eos % (Auto) 8.4 % (0.0-4.0); Hematocrit 26.5 % (35.0-46.0); Hemoglobin 8.4 gm/dL (11.6-15.3); Lymph # (Auto) 2.4 th/mm3 (1.0-4.8); Lymph % (Auto) 29.8 % (9.0-44.0); Mean Corpuscular HGB Conc 31.9 % (32.0-36.0); Mean Corpuscular Hemoglobin 31.8 pg (27.0-34.0); Mean Corpuscular Volume 99.7 fL (80.0-100.0); Mean Platelet Volume 7.2 fL (7.0-11.0); Mono # (Auto) 0.7 th/mm3 (0.0-0.9); Mono % (Auto) 9.1 % (0.0-8.0); Neut # (Auto) 4.1 th/mm3 (1.8-7.7); Neut % (Auto) 51.4 % (16.0-70.0); Platelet Count 477 th/mm3 (150-450); Red Blood Count 2.66 mil/mm3 (4.00-5.30); Red Cell Distribution Width 15.5 % (11.6-17.2); White Blood Count 7.9 th/mm3 (4.0-11.0)
[2019-01-09 05:59] LABS: Albumin 2.9 g/dL (3.4-5.0); Calcium 9.2 mg/dL (8.5-10.1); Carbon Dioxide 15.5 meq/L (21.0-32.0); Potassium 4.6 meq/L (3.5-5.1)
[2019-01-09 06:00] LABS: Phosphorus 3.8 mg/dL (2.5-4.9)
[2019-01-09] MEDS ORDERED: Bupivacaine PF 0.5% Inj 10 ML Vial ONE (06:32)
[2019-01-09] MEDS ORDERED: Protamine Sulfate Inj 50 MG/5 ML Vial ONE (06:32)
[2019-01-09] MEDS ORDERED: Heparin 10,000 UNITS/10 ML Vial (for IV use) ONE ×2 (06:32→07:06)
[2019-01-09] MEDS ORDERED: Heparin/NS PF Inj 500 ML ONE (06:33)
[2019-01-09] MEDS ORDERED: Thrombin Topical 20,000 UNIT Spray Kit TOPICAL ONE (06:33)
[2019-01-09] MEDS ORDERED: Chlorhexidine Gluconate 2% 1 Pack (2 Cloths) TOPICAL ONE (06:45)
[2019-01-09] MEDS ORDERED: Sugammadex Inj 200 MG/2 ML Vial IV.PUSH ONE (07:26)
[2019-01-09] MEDS ORDERED: Lidocaine PF 1% Inj 5 ML Syringe OTHER ONE (08:04)
[2019-01-09] MEDS ORDERED: Normosol-R pH 7.4 Inj 1,000 ML IV.CONT ONE (08:04)
[2019-01-09] MEDS ORDERED: Sodium Chlor 0.9% Inj 500 ML IV.CONT ONE (08:04)
[2019-01-09] MEDS ORDERED: Sodium Chlor 0.9% Inj 250 ML IV.CONT ONE (08:04)
[2019-01-09] MEDS ORDERED: Phenylephrine/NS 1000 MCG/10ML Syringe IV.PUSH ONE (08:04)
[2019-01-09] MEDS ORDERED: Esmolol Bolus Inj 100 MG/10 ML Vial IV.PUSH ONE (08:04)
[2019-01-09] MEDS: Pregabalin 75 MG Capsule PO SCH ×2 (09:00→22:32)
[2019-01-09] MEDS: Ascorbic Acid 500 MG Tablet PO SCH (09:00)
[2019-01-09] MEDS: Docusate Sodium 100 MG Capsule PO SCH (09:00)
[2019-01-09] MEDS: Insulin NovoLOG Aspart Correctional Sugar Inj SQ SCH ×4 (09:00→23:31)
[2019-01-09] MEDS ORDERED: Morphine Inj 4 MG/ML Vial IV.PUSH PRN (10:54)
--- NOTE | 2019-01-09 10:54 | P.OP ---
- Preoperative Diagnosis (1) Peripheral artery disease - Postoperative Diagnosis (1) Peripheral artery disease Date of procedure: 01/09/19 Procedure: LEFT fem-BK pop with cryo vein Implants: cryo GSV Anesthesia: GETA Surgeon: Daniel Mauricio MD Janitorial Services Supervisor: Daniel Golden Estimated blood loss (mL): 75 IV fluids (mL): 1,600 Urine output (mL): 250 Pathology: none sent Operation and Findings: Strong distal AT signal after bypass
[2019-01-09] MEDS ORDERED: *morphine SULFATE 4 MG/ML PERIprocedure ONLY ONE (11:28)
[2019-01-09] MEDS ORDERED: fentaNYL Citrate Inj 100 MCG/2 ML Ampul ONE ×2 (11:29)
--- NOTE | 2019-01-09 11:29 | MP ---
cc: Daniel Mauricio MD DATE OF OPERATION: 01/09/2019 PREOPERATIVE DIAGNOSIS: Left lower extremity tissue loss, peripheral vascular disease. POSTOPERATIVE DIAGNOSIS: Left lower extremity tissue loss, peripheral vascular disease. PROCEDURE: Left femoral to below-knee popliteal bypass with cryopreserved vein. ATTENDING SURGEON: Daniel Mauricio MD EMPLOYEE RELATIONS ADMINISTRATOR SURGEON: Daniel Golden. ANESTHESIA: General. INDICATIONS FOR PROCEDURE: Ms. Cohen is a 68-year-old lady, who has severe peripheral arterial occlusive disease. She had a [id number] tibial artery bypass on the right with right tissue loss, and is now being taken to the operating room for left lower extremity bypass. She has no suitable autogenous conduit, so cryopreserved vein was used. DESCRIPTION OF PROCEDURE: Informed consent was obtained of the patient. She was taken to the operating room and placed supine on the operating table. An appropriate timeout was taken to ensure the patient's identity, the operative site, and planned procedure. A gram of vancomycin was administered prior to skin incision and will be discontinued after receiving preoperative dose. Vancomycin was chosen because of the patient's preoperative length of stay. Everyone in the room agreed and we finally proceeded. She was prepped from her navel to her toes. A vertical incision was made in the patient's left groin and carried down through subcutaneous tissue with electrocautery. The common femoral was identified, as well as the proximal profunda and SFA. The below-knee popliteal artery incision was made with an 10 blade. Then, it was deepened and extended down through the subcutaneous tissue with electrocautery. The muscle was divided and retracted off the bones, and retracted posteriorly. The below-knee popliteal artery was identified and dissected free, down to the anterior tibial artery takeoff. A tunnel was then created between these 2, and cryopreserved vein was brought up onto the field, thawed in the usual fashion, flushed, noted to be hemostatic, and passed through the tunnel, taking caution not to twist it. The patient was systemically heparinized with 8000 units of IV heparin and throughout the remainder of the case. ACT was confirmed to be over 250. Proximal and distal control of common femoral artery were obtained with fundal clamps, and a longitudinal arteriotomy was made with an 11 blade, extended with [place] scissors. The vein was spatulated and sewn end-to-side with running 5-0 Prolene suture. At the completion, it was flushed and hemostatic. The clamp was placed on the vein. There was nice Doppler signal in profunda. Proximal and distal control of the below-knee popliteal artery obtained with fundal clamps, and the anterior tibial artery and tibioperoneal trunk with profunda clamps and a longitudinal arteriotomy was made with an 11 blade, extended with [place] scissors. The artery was endarterectomized without difficulty, and the vein was cut to appropriate length, spatulated, and sewn end-to-side with running 6-0 Prolene suture. At the completion, it was flushed and noted to be hemostatic. There was nice Doppler signal in distal anterior tibial artery. The wounds were irrigated and made hemostatic, infiltrated with Marcaine, and closed using 2-0 Polysorb, 3-0 Polysorb, and 4-0 Monocryl. Sponge and needle counts were correct at the end of the case. I was present, scrubbed, and performed the entire procedure. Daniel Mauricio MD RJF/rh/ll , 11:00 AM , 11:07 AM MTDElvira
[2019-01-09] MEDS ORDERED: *morphine SULFATE 10 MG/ML PERIprocedure ONLY ONE (11:41)
--- NOTE | 2019-01-09 13:28 | P.PNWCN ---
Wound Care Nurse Consult Description: Wound care consulted for wound management to left medial heel; chronic diabetic wound with delayed wound healing by Dr. Pavon. Communicated with: Spoke with Dr. Marlow and Courtney GUEVARA for vascular surgery. Recommendation: Consult podiatry due to chronic diabetic wound that may need debridement per Vascular RESEARCH PROFESSOR. Dr. Marlow called and podiatry consult to be ordered. Reconsult wound care if needed. Additional information: Spoke with Courtney GUEVARA for Dr. Mauricio regarding wound to left medial heel. PAOLA believes this wound may need debridement due to appearance of wound bed. Call placed out to Dr. Marlow and awaiting pending podiatry order. Reconsult wound care if needed.
--- NOTE | 2019-01-09 13:39 | P.PNFP ---
Subjective Interval history: No acute events overnight. Remains afebrile, vitals stable. Patient seen and examined this afternoon following her surgery. Patient reports feeling tired after her surgery. States her pain is controlled. Denies fevers, CP, dyspnea, palpitations. Otherwise does not report complaints or concerns. <Ephraim Lambert - 01/09/19 13:39> Results - Labs Result diagrams: 01/10/19 06:09 01/10/19 06:09 <EduardoDesirae Britt - 01/10/19 12:33> Abnormal lab results 01/07/19 01/09/19 01/09/19 Range/Units 20:55 08:12 15:22 RBC (4.00-5.30) mil/mm3 Hgb (11.6-15.3) gm/dL Hct (35.0-46.0) % MCHC (32.0-36.0) % MPV (7.0-11.0) fL [place] % (Auto) (0.0-8.0) % [place] # (Auto) (0.0-0.9) th/mm3 G6PD Greater than 21.0 H (7.0-20.5) U/g Hgb Chloride (98-107) meq/L Carbon Dioxide (21.0-32.0) meq/L BUN (7-18) mg/dL Creatinine (0.50-1.00) mg/dL Estimated GFR (>89) mL/min POC Glucose 117 H (68-110) mg/dl Random Glucose (74-106) mg/dL MTS Gel Crossmatch See Detail 01/09/19 01/10/19 01/10/19 Range/Units 22:47 06:09 06:09 RBC 2.52 L (4.00-5.30) mil/mm3 Hgb 7.9 L (11.6-15.3) gm/dL Hct 25.0 L (35.0-46.0) % MCHC 31.5 L (32.0-36.0) % MPV 6.8 L (7.0-11.0) fL [place] % (Auto) 11.1 H (0.0-8.0) % [place] # (Auto) 1.0 H (0.0-0.9) th/mm3 G6PD (7.0-20.5) U/g Hgb Chloride 117 H (98-107) meq/L Carbon Dioxide 16.0 L (21.0-32.0) meq/L BUN 53 H (7-18) mg/dL Creatinine 2.28 H (0.50-1.00) mg/dL Estimated GFR 21 L (>89) mL/min POC Glucose 175 H (68-110) mg/dl Random Glucose 119 H (74-106) mg/dL MTS Gel Crossmatch 01/10/19 Range/Units 08:05 RBC (4.00-5.30) mil/mm3 Hgb (11.6-15.3) gm/dL Hct (35.0-46.0) % MCHC (32.0-36.0) % MPV (7.0-11.0) fL [place] % (Auto) (0.0-8.0) % [place] # (Auto) (0.0-0.9) th/mm3 G6PD (7.0-20.5) U/g Hgb Chloride (98-107) meq/L Carbon Dioxide (21.0-32.0) meq/L BUN (7-18) mg/dL Creatinine (0.50-1.00) mg/dL Estimated GFR (>89) mL/min POC Glucose 149 H (68-110) mg/dl Random Glucose (74-106) mg/dL MTS Gel Crossmatch Short CBC 01/10/19 Range/Units 06:09 WBC 8.6 (4.0-11.0) th/mm3 Hgb 7.9 L (11.6-15.3) gm/dL Hct 25.0 L (35.0-46.0) % Plt Count 450 (150-450) th/mm3 BMP 01/10/19 06:09 Sodium 144 Potassium 4.7 Chloride 117 H Carbon Dioxide 16.0 L BUN 53 H Creatinine 2.28 H Calcium 8.7 <Desirae Clark - 01/10/19 12:33> Abnormal lab results 01/08/19 01/08/19 01/08/19 Range/Units 15:08 17:27 20:18 RBC (4.00-5.30) mil/mm3 Hgb (11.6-15.3) gm/dL Hct (35.0-46.0) % MCHC (32.0-36.0) % Plt Count (150-450) th/mm3 [place] % (Auto) (0.0-8.0) % Eos % (Auto) (0.0-4.0) % Eos # (Auto) (0.0-0.4) th/mm3 Chloride 117 H (98-107) meq/L Carbon Dioxide 14.8 L (21.0-32.0) meq/L BUN 58 H (7-18) mg/dL Creatinine 2.53 H (0.50-1.00) mg/dL Estimated GFR 19 L (>89) mL/min POC Glucose 118 H 162 H (68-110) mg/dl Random Glucose 127 H (74-106) mg/dL Albumin (3.4-5.0) g/dL MTS Gel Crossmatch 01/09/19 01/09/19 01/09/19 Range/Units 02:24 04:29 04:29 RBC 2.66 L (4.00-5.30) mil/mm3 Hgb 8.4 L (11.6-15.3) gm/dL Hct 26.5 L (35.0-46.0) % MCHC 31.9 L (32.0-36.0) % Plt Count 477 H (150-450) th/mm3 [place] % (Auto) 9.1 H (0.0-8.0) % Eos % (Auto) 8.4 H (0.0-4.0) % Eos # (Auto) 0.7 H (0.0-0.4) th/mm3 Chloride 116 H (98-107) meq/L Carbon Dioxide 15.5 L (21.0-32.0) meq/L BUN 61 H (7-18) mg/dL Creatinine 2.56 H (0.50-1.00) mg/dL Estimated GFR 19 L (>89) mL/min POC Glucose 115 H (68-110) mg/dl Random Glucose (74-106) mg/dL Albumin 2.9 L (3.4-5.0) g/dL MTS Gel Crossmatch 01/09/19 01/09/19 Range/Units 08:12 11:45 RBC (4.00-5.30) mil/mm3 Hgb (11.6-15.3) gm/dL Hct (35.0-46.0) % MCHC (32.0-36.0) % Plt Count (150-450) th/mm3 [place] % (Auto) (0.0-8.0) % Eos % (Auto) (0.0-4.0) % Eos # (Auto) (0.0-0.4) th/mm3 Chloride (98-107) meq/L Carbon Dioxide (21.0-32.0) meq/L BUN (7-18) mg/dL Creatinine (0.50-1.00) mg/dL Estimated GFR (>89) mL/min POC Glucose 112 H (68-110) mg/dl Random Glucose (74-106) mg/dL Albumin (3.4-5.0) g/dL MTS Gel Crossmatch See Detail Short CBC 01/09/19 Range/Units 04:29 WBC 7.9 (4.0-11.0) th/mm3 Hgb 8.4 L (11.6-15.3) gm/dL Hct 26.5 L (35.0-46.0) % Plt Count 477 H (150-450) th/mm3 BMP 01/08/19 01/09/19 15:08 04:29 Sodium 144 140 Potassium 4.8 4.6 Chloride 117 H 116 H Carbon Dioxide 14.8 L 15.5 L BUN 58 H 61 H Creatinine 2.53 H 2.56 H Calcium 8.9 9.2 Liver Function 01/09/19 Range/Units 04:29 Albumin 2.9 L (3.4-5.0) g/dL <[address] - 01/09/19 13:39> Physical Exam Vital signs: Vital Signs 01/09/19 12:35 01/09/19 16:00 01/09/19 20:00 Temperature 98.3 F 101.5 F H Pulse Rate 81 85 96 H Respiratory Rate 16 18 Blood Pressure 162/70 H 130/78 Pulse Oximetry 96 95 01/09/19 20:23 01/09/19 22:00 01/10/19 00:00 Temperature 100.7 F H Pulse Rate 92 H Respiratory Rate 17 18 Blood Pressure 146/63 H Pulse Oximetry 94 L 95 01/10/19 04:00 01/10/19 08:00 01/10/19 08:53 Temperature 99.3 F 100.4 F H Pulse Rate 85 87 Respiratory Rate 18 19 Blood Pressure 163/66 H 168/65 H Pulse Oximetry 96 95 95 Intake & Output 01/09/19 01/10/19 01/10/19 18:59 06:59 18:59 Intake Total 3175 / 3175 120 / 120 Output Total 725 / 725 1700 / 1700 625 / 625 Balance 2450 / 2450 -1700 / -1700 -505 / -505 Weight 74.3 kg Intake: IV 1175 / 1175 Sodium Bicarbonate 8.4% Inj 75 1075 / 1075 MEQ In 1/2 Normal Saline Inj 1, 000 ML @ 42 mls/hr IV.CONT . Q24H [facility] Rx#:[id number] Rocephin Inj 1,000 MG In NS Inj 100 / 100 100 ML @ 200 mls/hr IV.SIG Q24H [facility] Rx#:[id number] Oral 200 / 200 120 / 120 Anesthesia Amount 1800 / 1800 Output: Urine 275 / 275 1100 / 1100 Estimated Blood Loss 75 / 75 Urine Amount (Catheter) 375 / 375 600 / 600 625 / 625 Indwelling Temp Sensing 375 / 375 600 / 600 625 / 625 Catheter Other: Date of Last Bowel Movement 01/05/19 # Bowel Movements 0 0 <Desirae Clark - 01/10/19 12:33> Vital Signs 01/08/19 16:00 01/08/19 20:00 01/08/19 21:49 Temperature 98.6 F 98.1 F Pulse Rate 70 75 71 Respiratory Rate 15 18 Blood Pressure 143/60 H 181/75 H 164/72 H Pulse Oximetry 95 97 01/08/19 22:50 01/08/19 23:30 01/09/19 00:00 Temperature 98.7 F Pulse Rate 70 Respiratory Rate 16 18 18 Blood Pressure 152/67 H Pulse Oximetry 96 01/09/19 02:52 01/09/19 03:25 01/09/19 04:00 Temperature 98.9 F Pulse Rate 83 Respiratory Rate 18 18 18 Blood Pressure 141/77 H Pulse Oximetry 96 01/09/19 11:08 01/09/19 11:15 01/09/19 11:30 Temperature 97.3 F L Pulse Rate 80 74 80 Respiratory Rate 14 16 10 L Blood Pressure 152/65 H 154/66 H 179/77 H Pulse Oximetry 98 99 98 01/09/19 11:45 01/09/19 11:53 01/09/19 12:00 Temperature Pulse Rate 79 Respiratory Rate 10 L 12 Blood Pressure 140/62 Pulse Oximetry 97 96 01/09/19 12:01 01/09/19 12:12 01/09/19 12:31 Temperature 98.4 F 98.0 F Pulse Rate 82 82 81 Respiratory Rate 12 19 Blood Pressure 147/65 H 145/65 H 135/61 Pulse Oximetry 97 97 96 Intake & Output 01/08/19 01/09/19 01/09/19 18:59 06:59 18:59 Intake Total 630 / 630 220 / 220 1800 / 1800 Output Total 450 / 450 Balance 630 / 630 220 / 220 1350 / 1350 Weight 70.2 kg Intake: IV 350 / 350 100 / 100 NS Inj 1,000 ML @ 50 mls/hr IV. 350 / 350 CONT .Q20H [facility] Rx#:[id number] Rocephin Inj 1,000 MG In NS Inj 100 / 100 100 ML @ 200 mls/hr IV.SIG Q24H [facility] Rx#:[id number] Oral 280 / 280 120 / 120 0 / 0 Anesthesia Amount 1800 / 1800 Output: Estimated Blood Loss 75 / 75 Urine Amount (Catheter) 375 / 375 Indwelling Temp Sensing 375 / 375 Catheter Other: # Voids 4 # Urine Diapers 6 Date of Last Bowel Movement 01/05/19 01/05/19 # Bowel Movements 1 <Kandavanam R3,Ephraim - 01/09/19 13:39> Narrative: GENERAL: 68 year old female lying flat in bed in [facility] SKIN: Warm and dry. Minor venous stasis skin changes on LLE below the knee. LLE incision c/d/i HEAD: Normocephalic. Atraumatic. MMM. Oropharynx clear. EYES: No scleral icterus. No injection or drainage. EOMI. NECK: Supple, trachea midline. No JVD or lymphadenopathy. CARDIOVASCULAR: Regular rate and rhythm without murmurs, gallops, or rubs. Left DP and PT pulses are 2+ RESPIRATORY: Breath sounds equal bilaterally. No accessory muscle use. No increased WOB. GASTROINTESTINAL: Abdomen soft, non-tender, nondistended. MUSCULOSKELETAL: No cyanosis, or edema. Left medial heel ulcer is clean and dry with 2cm x 2cm eschar, does not appear to have good granulation tissue at the base. No drainage, no surrounding erythema. BACK: Nontender without obvious deformity. <Kandavanam R3,Ephraim - 01/09/19 13:39> - Urinary Catheter Management Indwelling Temp Sensing Catheter Cath placed during this visit: no <Desirae Clark - 01/10/19 12:33> yes <Kandavanam R3,Ephraim - 01/09/19 13:39> Reason for continuing: Other continuation reason <Kandavanam R3,Ephraim - 01/09 13:39> Insertion date: 01/09/19 <Kandavanam R3,Ephraim - 01/09/19 13:39> Insertion time: 08:30 <Kandavanam R3,Ephraim - 01/09/19 13:39> Assessment and Plan - Assessment (1) Hypoxia Code(s): R09.02 - Hypoxemia Status: Resolved (2) Methemoglobinemia Code(s): D74.9 - Methemoglobinemia, unspecified Status: Resolved (3) Complicated UTI (urinary tract infection) Code(s): N39.0 - Urinary tract infection, site not specified Status: Acute (4) Acute on chronic renal failure Code(s): N17.9 - Acute kidney failure, unspecified; N18.9 - Chronic kidney disease, unspecified Status: Acute (5) Generalized weakness Code(s): R53.1 - Weakness Status: Chronic (6) Diabetes mellitus with neuropathy Code(s): E11.40 - Type 2 diabetes mellitus with diabetic neuropathy, unspecified Status: Chronic (7) Peripheral artery disease Code(s): I73.9 - Peripheral vascular disease, unspecified Status: Chronic (8) Diabetic ulcer of heel Code(s): E11.621 - Type 2 diabetes mellitus with foot ulcer; L97.409 - Non- pressure chronic ulcer of unspecified heel and midfoot with unspecified severity Status: Chronic (9) Anemia Code(s): D64.9 - Anemia, unspecified Status: Chronic (10) Hyperkalemia Code(s): E87.5 - Hyperkalemia Status: Resolved (11) Hypertension Code(s): I10 - Essential (primary) hypertension Status: Chronic (12) Nutrition, metabolism, and development symptoms Code(s): R63.8 - Other symptoms and signs concerning food and fluid intake Status: Acute <Desirae Clark - 01/10/19 12:33> (1) Hypoxia Code(s): R09.02 - Hypoxemia Status: Resolved (2) Methemoglobinemia Code(s): D74.9 - Methemoglobinemia, unspecified Status: Resolved (3) Complicated UTI (urinary tract infection) Code(s): N39.0 - Urinary tract infection, site not specified Status: Acute (4) Acute on chronic renal failure Code(s): N17.9 - Acute kidney failure, unspecified; N18.9 - Chronic kidney disease, unspecified Status: Acute (5) Generalized weakness Code(s): R53.1 - Weakness Status: Chronic (6) Diabetes mellitus with neuropathy Code(s): E11.40 - Type 2 diabetes mellitus with diabetic neuropathy, unspecified Status: Chronic (7) Peripheral artery disease Code(s): I73.9 - Peripheral vascular disease, unspecified Status: Chronic (8) Diabetic ulcer of heel Code(s): E11.621 - Type 2 diabetes mellitus with foot ulcer; L97.409 - Non- pressure chronic ulcer of unspecified heel and midfoot with unspecified severity Status: Chronic (9) Anemia Code(s): D64.9 - Anemia, unspecified Status: Acute (10) Hyperkalemia Code(s): E87.5 - Hyperkalemia Status: Resolved (11) Nutrition, metabolism, and development symptoms Code(s): R63.8 - Other symptoms and signs concerning food and fluid intake Status: Acute <Ephraim Lambert - 01/09/19 13:28> - Assessment and Plan 68 year old female with history of T2DM, diabetic peripheral neuropathy, anemia , peripheral arterial disease s/p bypass in RLE, recurrent UTIs and CKD presented meeting sepsis criteria due to UTI. Additionally, pt presents with hypoxia and O2 sats in the 80s, macrocytic anemia, methemoglobinemia 9.6%, acute on chronic renal failure, and chronic diabetic left heel ulcer scheduled for surgery on 01/[address] Mauricio. Hypoxia, dizziness and weakness -Resolved -Consider secondary to methemoglobinemia -O2 sats remain appropriate on supplemental oxygen -Tachycardia resolved -CXR negative -Continue supplemental O2 to maintain O2 sats > 92%, wean as tolerated -Appreciate PT Sepsis 2/2 UTI -Continue Rocephin 1 gm IV q24h -Urine culture growing 10-50,000 cfus mixed gram positive bj -Of note, the patient does have a history of UTI growing Pseudomonas as well as VRE -Renal/bladder US w/no evidence of hydronephrosis, but posterior bladder wall slightly thickened Recurrent UTIs -Plan as above -Consider Urology consult, per comments in [place] Methemoglobinemia -Repeat ABG is improved s/p Methylene Blue 50 mg IV -G6PD pending -Stop potential offending drugs: pt was recently on Bactrim (Sulfanomides) and on ASA --Holding home ASA 325mg Acute on chronic renal failure -Cr 2.86 with baseline since March of Cr 1.74 and BUN 64 -Gentle IVF at 42 cc/hr with bicarb per nephrology (and due to CHF) -Consult nephrology--appreciate recs Diabetes type 2 -A1C on 12/07/18 was 5.4 -Accuchecks -Low SSI Macrocytic anemia -Unclear etiology (hemolysis? malabsorption from chronic PPI? occult bleed?) -Iron profile suggesting anemia of chronic disease -B12 at the upper limits of normal -Pt states she is non-compliant with iron sulfate treatment due to constipation PAD with LLE Chronic diabetic ulcer -Consult Dr. Mauricio, vascular surgery--appreciate recs --s/p left femoral popliteal bypass surgery on 01/09 -Continue home Langlois 10/325 mg q6h prn pain -Wound nurse consult Peripheral neuropathy 2/2 diabetes -Continue home Lyrica 75 mg daily Hyperkalemia -Resolved -Likely due to metabolic acidosis and acute kidney injury -EKG on admission in [facility] FEN/GI/PPx: -Fluids: continue 1/2 NS with Na HCO3 per nephrology -Electrolytes: Continue to monitor -Nutrition: heart healthy diet -GI ppx: continue home Protonix 40 mg PO daily -DVT ppx: Lovenox 40 mg SQ daily <Kashmir R3,Ephraim - 01/09/19 13:39> - Attending Attestation The exam, history, and the medical decision-making described in the above note were completed with the assistance of the resident physician. I reviewed and agree with the findings presented. unfortunately, I was unable to see her as she was in surgery when I looked for her. <EduardoJesúsDesirae M - 01/10/19 12:33> <Ephraim Lambert - Last Filed: 01/09/19 13:28> (4) Acute on chronic renal failure Qualifiers: Chronic kidney disease stage: stage 3 (moderate) (6) Diabetes mellitus with neuropathy Qualifiers: Diabetes mellitus type: type 2 Diabetes mellitus long-term insulin use: with long-term use Qualified Code(s): E11.40 - Type 2 diabetes mellitus with diabetic neuropathy, unspecified; Z79.4 - retirement (current) use of insulin (8) Diabetic ulcer of heel Qualifiers: Diabetes mellitus type: type 2 Laterality: left Non-pressure ulcer stage: unspecified non-pressure ulcer stage Qualified Code(s): E11.621 - Type 2 diabetes mellitus with foot ulcer; L97.429 - Non-pressure chronic ulcer of left heel and midfoot with unspecified severity <Desirae Clark - Last Filed: 01/10/19 12:33> (4) Acute on chronic renal failure Qualifiers: Chronic kidney disease stage: stage 3 (moderate) (6) Diabetes mellitus with neuropathy Qualifiers: Diabetes mellitus type: type 2 Diabetes mellitus long-term insulin use: with long-term use Qualified Code(s): E11.40 - Type 2 diabetes mellitus with diabetic neuropathy, unspecified; Z79.4 - exterminator (current) use of insulin (8) Diabetic ulcer of heel Qualifiers: Diabetes mellitus type: type 2 Laterality: left Non-pressure ulcer stage: unspecified non-pressure ulcer stage Qualified Code(s): E11.621 - Type 2 diabetes mellitus with foot ulcer; L97.429 - Non-pressure chronic ulcer of left heel and midfoot with unspecified severity <Bebemark Ephraim Mullins - Last Filed: 01/09/19 13:28> (4) Acute on chronic renal failure Qualifiers: Chronic kidney disease stage: stage 3 (moderate) (6) Diabetes mellitus with neuropathy Qualifiers: Diabetes mellitus type: type 2 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: with buttermilk 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 operator use Qualified Code(s): E11.40 - Type 2 diabetes mellitus with diabetic neuropathy, unspecified; Z79.4 - exterminator (current) use of insulin (8) Diabetic ulcer of heel Qualifiers: Diabetes mellitus type: type 2 Laterality: left Non-pressure ulcer stage: unspecified non-pressure ulcer stage Qualified Code(s): E11.621 - Type 2 diabetes mellitus with foot ulcer; L97.429 - Non-pressure chronic ulcer of left heel and midfoot with unspecified severity <Desirae Clark - Last Filed: 01/10/19 12:33> (4) Acute on chronic renal failure Qualifiers: Chronic kidney disease stage: stage 3 (moderate) (6) Diabetes mellitus with neuropathy Qualifiers: Diabetes mellitus type: type 2 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
[2019-01-09] MEDS: Sodium Bicarbonate 8.4% Inj 75 MEQ in Sodium Chloride 0.45 % Inj 1,000 ML IV.CONT SCH (15:22)
--- NOTE | 2019-01-09 16:44 | P.CONPOD ---
History of Present Illness Service: Foot and ankle surgery/podiatry Consult date: 01/09/19 Reason for Consult: Left heel wound Primary Care Provider: Kirit Vega MD, R3 Chief Complaint: dizzy, short of breath, weakness History of Present Illness: Podiatry consulted for this 68-year-old female with diabetes, PAD, hypertension , neuropathy and recurrent UTIs for left medial heel ulcer. Patient reports pain and tenderness to left medial heel ulcer. She is status post vascular intervention. Patient states they have been dressing her ulcer daily. 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 (Acute) Anemia CHF (congestive heart failure) CKD (chronic kidney disease), stage III CRI (chronic renal insufficiency) Cyst of right kidney Diabetes Foramen ovale Gastroparesis HTN (hypertension) MDRO (multiple drug resistant organisms) resistance Onset Date: ~09/29/18 Neuropathy PAD (peripheral artery disease) PVD (peripheral vascular disease) Pressure ulcer of left heel, unspecified stage Risk for falls TIA (transient ischemic attack) Uses wheelchair Weakness Wears glasses - Surgical History Surgical History: Surgical History (Last Reviewed 01/09/19 @ 09:02 by Nicolás Richard) Hx of section Hx of cystoscopy Hx of extremity bypass graft - Family History Family History: Family History (Last Reviewed 01/08/19 @ 15:30 by Lucy Yeung PT) Father Cardiovascular disease Mother Diabetes - Tobacco History Second Hand Smoke Exposure: No Smoking Status: Never smoker - Alcohol History How Often Do You Have a Drink Containing Alcohol: Never - Substance Use History Substance History: No History of Abuse - Travel History History of Recent Travel: No Recent Travel in the [place] Within the Last 8 Weeks: No Recent Travel Out of the Country Within the Last 8 Weeks: No - Immunization History Tetanus Immunization: <5 Years Hx Influenza Vaccine This Season: Yes Medications and Allergies Active Medications: Active Medications Acetaminophen (Tylenol) 650 mg PO Q4H PRN PRN Reason: Temp > 100.4 Hydrocodone Bitart/Acetaminophen ([place] 10/325) 1 tab PO Q4H PRN PRN Reason: Acute Pain 1-5 Last Admin: 01/09/19 02:52 Dose: 1 tab Ascorbic Acid (Vitamin C) 1,000 mg PO DAILY [facility] Last Admin: 01/09/19 09:00 Dose: Not Given Collagenase (Santyl Oint) 1 applicatio TOPICAL DAILY [facility] Dextrose (D50w Vial) 50 ml IV.PUSH UNSCH PRN PRN Reason: PER HYPOGLYCEMIA PROTOCOL Docusate Sodium (Colace) 100 mg PO DAILY [facility] Last Admin: 01/09/19 09:00 Dose: Not Given Glucagon (Glucagon Inj) 1 mg OTHER PRN PRN PRN Reason: for Hypoglycemia Protocol Hydromorphone HCl (Dilaudid) 2 mg PO Q4H PRN PRN Reason: PAIN SCALE 6 TO 10 Ceftriaxone Sodium 1,000 mg/ (Sodium Chloride) 100 mls @ 200 mls/hr IV.SIG Q24H [facility] Last Infusion: 01/08/19 19:09 Dose: Infused Sodium Bicarbonate 75 meq/ (Sodium Chloride) 1,075 mls @ 42 mls/hr IV.CONT .Q24H [facility] Last Admin: 01/09/19 15:22 Dose: 42 mls/hr Lactated Ringer's (Lr 1000 Ml Inj) 1,000 mls @ 30 mls/hr IV.CONT .Q24H ONE Stop: 01/10/19 06:44 Insulin Aspart (Novolog Insulin Correctional Sugar Inj) 0 unit SQ ACHS [facility]; Protocol Last Admin: 01/09/19 09:00 Dose: Not Given Miscellaneous Information (Mis Nursing Information) 0 each OTHER UNSCH PRN PRN Reason: SEE LABEL COMMENTS Stop: 01/10/19 11:00 Morphine Sulfate (Morphine Inj) 2 mg IV.PUSH Q1H PRN PRN Reason: BREAKTHROUGH PAIN Last Admin: 01/09/19 15:19 Dose: 2 mg Multivitamins (Theragran) 1 tab PO DAILY [facility] Last Admin: 01/09/19 09:00 Dose: Not Given Ondansetron HCl (Zofran Inj) 4 mg IV.PUSH Q6H PRN PRN Reason: NAUSEA OR VOMITING Pantoprazole Sodium (Protonix) 40 mg PO DAILY [facility] Last Admin: 01/09/19 09:00 Dose: Not Given Pravastatin Sodium (Pravachol) 10 mg PO HS [facility] Last Admin: 01/08/19 20:44 Dose: 10 mg Pregabalin (Lyrica) 75 mg PO BID [facility] Last Admin: 01/09/19 09:00 Dose: Not Given Sodium Chloride (Ns Flush) 2 ml IV.FLUSH BID [facility] Last Admin: 01/09/19 13:29 Dose: Not Given Sodium Chloride (Ns Flush) 2 ml IV.FLUSH PRN PRN PRN Reason: FLUSH AFTER USING IV ACCESS Allergies Allergy/AdvReac Type Severity Reaction Status Date / Time clonidine AdvReac Severe Chest Pain Verified 01/07/19 14:09 metformin AdvReac Severe Dizziness Verified 01/07/19 14:09 Home Medications Medication Instructions Recorded Confirmed Type multivitamin with folic acid 1 tab PO DAILY 05/27/18 01/07/19 History [Thera] docusate sodium [Colace] 100 mg PO DAILY 01/02/19 01/07/19 History pravastatin 10 mg PO DAILY 01/02/19 01/07/19 History diphenhydramine HCl [Benadryl] 25 mg PO DAILY 01/07/19 01/07/19 History Physical Exam Vital signs: Vital Signs 01/08/19 20:00 01/08/19 21:49 01/08/19 22:50 Temperature 98.1 F Pulse Rate 75 71 Respiratory Rate 18 16 Blood Pressure 181/75 H 164/72 H Pulse Oximetry 97 01/08/19 23:30 01/09/19 00:00 01/09/19 02:52 Temperature 98.7 F Pulse Rate 70 Respiratory Rate 18 18 18 Blood Pressure 152/67 H Pulse Oximetry 96 01/09/19 03:25 01/09/19 04:00 01/09/19 11:08 Temperature 98.9 F 97.3 F L Pulse Rate 83 80 Respiratory Rate 18 18 14 Blood Pressure 141/77 H 152/65 H Pulse Oximetry 96 98 01/09/19 11:15 01/09/19 11:30 01/09/19 11:45 Temperature Pulse Rate 74 80 79 Respiratory Rate 16 10 L 10 L Blood Pressure 154/66 H 179/77 H 140/62 Pulse Oximetry 99 98 97 01/09/19 11:53 01/09/19 12:00 01/09/19 12:01 Temperature 98.4 F Pulse Rate 82 Respiratory Rate 12 12 Blood Pressure 147/65 H Pulse Oximetry 96 97 01/09/19 12:12 01/09/19 12:31 Temperature 98.0 F Pulse Rate 82 81 Respiratory Rate 12 19 Blood Pressure 145/65 H 135/61 Pulse Oximetry 97 96 Intake & Output 01/08/19 01/09/19 01/09/19 18:59 06:59 18:59 Intake Total 630 / 630 220 / 220 2875 / 2875 Output Total 450 / 450 Balance 630 / 630 220 / 220 2425 / 2425 Weight 70.2 kg Intake: IV 350 / 350 100 / 100 1075 / 1075 NS Inj 1,000 ML @ 50 mls/hr IV. 350 / 350 CONT .Q20H [facility] Rx#:[id number] Sodium Bicarbonate 8.4% Inj 75 1075 / 1075 MEQ In 1/2 Normal Saline Inj 1, 000 ML @ 42 mls/hr IV.CONT . Q24H [facility] Rx#:[id number] Rocephin Inj 1,000 MG In NS Inj 100 / 100 100 ML @ 200 mls/hr IV.SIG Q24H [facility] Rx#:[id number] Oral 280 / 280 120 / 120 0 / 0 Anesthesia Amount 1800 / 1800 Output: Estimated Blood Loss 75 / 75 Urine Amount (Catheter) 375 / 375 Indwelling Temp Sensing 375 / 375 Catheter Other: # Voids 4 # Urine Diapers 6 Date of Last Bowel Movement 01/05/19 01/05/19 # Bowel Movements 1 Narrative: SKIN: Left medial heel ulceration HEAD: Atraumatic. EYES: Pupils equal round and reactive. ENT: Airway patent. NECK: Trachea midline. RESPIRATORY: Nonlabored breathing. MUSCULOSKELETAL:. Negative Homans sign bilaterally. NEUROLOGICAL: Awake and alert. Normal speech. Lower extremity physical exam: Vascular: Dorsalis pedis 1 out of 4, posterior tibial 1 out of 4. Capillary refill time within normal limits to digits x5 bilateral foot. Edema present bilateral lower extremity mildly. Neuro: Gross sensation intact to bilateral lower extremity. Pinpoint sensation intact. No hyperalgesia noted to bilateral lower extremity Dermatology: Left medial heel ulceration with fibro-granular base macerated borders and mild surrounding erythema. No probe to bone noted. No malodor noted. Musculoskeletal: Tender to palpation to left medial heel at ulceration site. Results - Labs CBC & Chem 7: 01/09/19 04:29 01/09/19 04:29 Laboratory Results - last 24 hr 01/08/19 01/08/19 01/09/19 17:27 20:18 02:24 WBC RBC Hgb Hct MCV MCH MCHC RDW Plt Count MPV Neut % (Auto) Lymph % (Auto) [place] % (Auto) Eos % (Auto) Baso % (Auto) Neut # (Auto) Lymph # (Auto) [place] # (Auto) Eos # (Auto) Baso # (Auto) WBC Differential Differential Comment Sodium Potassium Chloride Carbon Dioxide Anion Gap BUN Creatinine Estimated GFR POC Glucose 118 H 162 H 115 H Random Glucose Calcium Phosphorus Albumin MTS Gel Crossmatch 01/09/19 01/09/19 01/09/19 04:29 04:29 08:12 WBC 7.9 RBC 2.66 L Hgb 8.4 L Hct 26.5 L MCV 99.7 MCH 31.8 MCHC 31.9 L RDW 15.5 Plt Count 477 H MPV 7.2 Neut % (Auto) 51.4 Lymph % (Auto) 29.8 [place] % (Auto) 9.1 H Eos % (Auto) 8.4 H Baso % (Auto) 1.3 Neut # (Auto) 4.1 Lymph # (Auto) 2.4 [place] # (Auto) 0.7 Eos # (Auto) 0.7 H Baso # (Auto) 0.1 WBC Differential . Differential Comment Auto diff final Sodium 140 Potassium 4.6 Chloride 116 H Carbon Dioxide 15.5 L Anion Gap 9 BUN 61 H Creatinine 2.56 H Estimated GFR 19 L POC Glucose Random Glucose 95 Calcium 9.2 Phosphorus 3.8 Albumin 2.9 L MTS Gel Crossmatch See Detail 01/09/19 01/09/19 11:45 15:22 WBC RBC Hgb Hct MCV MCH MCHC RDW Plt Count MPV Neut % (Auto) Lymph % (Auto) [place] % (Auto) Eos % (Auto) Baso % (Auto) Neut # (Auto) Lymph # (Auto) [place] # (Auto) Eos # (Auto) Baso # (Auto) WBC Differential Differential Comment Sodium Potassium Chloride Carbon Dioxide Anion Gap BUN Creatinine Estimated GFR POC Glucose 112 H 117 H Random Glucose Calcium Phosphorus Albumin MTS Gel Crossmatch Microbiology 01/07/19 16:40 Blood - Peripheral Aerobic Blood Culture - Preliminary No growth in 2 days 01/07/19 16:40 Blood - Peripheral Anaerobic Blood Culture - Preliminary No growth in 2 days 01/07/19 15:14 Clean Catch Urine Urine Culture - Final 10-50,000 cfu/mL mixed gram positive bj (probable contaminants) Assessment and Plan - Plan 68-year-old female with left medial heel ulceration Patient examined and evaluated with all questions answered Dressing changes to be performed daily with Santyl and moist to dry dressing Will obtain x-ray to rule out any bony changes and/or osteomyelitis Possible MRI based on x-ray findings Will sign out care to Dr. Velez
[2019-01-09] MEDS: Collagenase Oint 30 GM Tube TOPICAL SCH (17:20)
[2019-01-10 06:36] LABS: Baso # (Auto) 0.1 th/mm3 (0.0-0.2); Baso % (Auto) 0.8 % (0.0-2.0); Eos # (Auto) 0.2 th/mm3 (0.0-0.4); Eos % (Auto) 2.6 % (0.0-4.0); Hemoglobin 7.9 gm/dL (11.6-15.3); Lymph # (Auto) 2.6 th/mm3 (1.0-4.8); Lymph % (Auto) 29.9 % (9.0-44.0); Mean Corpuscular HGB Conc 31.5 % (32.0-36.0); Mean Corpuscular Hemoglobin 31.3 pg (27.0-34.0); Mean Corpuscular Volume 99.5 fL (80.0-100.0); Mean Platelet Volume 6.8 fL (7.0-11.0); Mono % (Auto) 11.1 % (0.0-8.0); Neut # (Auto) 4.8 th/mm3 (1.8-7.7); Neut % (Auto) 55.6 % (16.0-70.0); Platelet Count 450 th/mm3 (150-450); Red Blood Count 2.52 mil/mm3 (4.00-5.30); Red Cell Distribution Width 15.1 % (11.6-17.2); White Blood Count 8.6 th/mm3 (4.0-11.0)
[2019-01-10 06:53] LABS: Calcium 8.7 mg/dL (8.5-10.1); Potassium 4.7 meq/L (3.5-5.1)
[2019-01-10] MEDS: Insulin NovoLOG Aspart Correctional Sugar Inj SQ SCH ×4 (08:17→21:03)
[2019-01-10] MEDS: Docusate Sodium 100 MG Capsule PO SCH (08:36)
[2019-01-10] MEDS: Ascorbic Acid 500 MG Tablet PO SCH (08:37)
[2019-01-10] MEDS: Acetaminophen 325 MG Tablet PO PRN (08:37)
[2019-01-10] MEDS: Pregabalin 75 MG Capsule PO SCH ×2 (08:37→21:02)
--- NOTE | 2019-01-10 10:00 | P.PNNP ---
Subjective Interval history: underwent left sided Fem-PoP bypass. Low grade fevers today. Renal function is slightly better. Physical Exam Vital signs: Vital Signs 01/09/19 11:08 01/09/19 11:15 01/09/19 11:30 Temperature 97.3 F L Pulse Rate 80 74 80 Respiratory Rate 14 16 10 L Blood Pressure 152/65 H 154/66 H 179/77 H Pulse Oximetry 98 99 98 01/09/19 11:45 01/09/19 11:53 01/09/19 12:00 Temperature Pulse Rate 79 Respiratory Rate 10 L 12 Blood Pressure 140/62 Pulse Oximetry 97 96 01/09/19 12:01 01/09/19 12:12 01/09/19 12:31 Temperature 98.4 F 98.0 F Pulse Rate 82 82 81 Respiratory Rate 12 12 19 Blood Pressure 147/65 H 145/65 H 135/61 Pulse Oximetry 97 97 96 01/09/19 12:35 01/09/19 16:00 01/09/19 20:00 Temperature 98.3 F 101.5 F H Pulse Rate 81 85 96 H Respiratory Rate 16 18 Blood Pressure 162/70 H 130/78 Pulse Oximetry 96 95 01/09/19 20:23 01/09/19 22:00 01/10/19 00:00 Temperature 100.7 F H Pulse Rate 92 H Respiratory Rate 17 18 Blood Pressure 146/63 H Pulse Oximetry 94 L 95 01/10/19 04:00 01/10/19 08:00 01/10/19 08:53 Temperature 99.3 F 100.4 F H Pulse Rate 85 87 Respiratory Rate 18 19 Blood Pressure 163/66 H 168/65 H Pulse Oximetry 96 95 95 Intake & Output 01/09/19 01/10/19 01/10/19 18:59 06:59 18:59 Intake Total 3175 / 3175 120 / 120 Output Total 725 / 725 1700 / 1700 625 / 625 Balance 2450 / 2450 -1700 / -1700 -505 / -505 Weight 74.3 kg Intake: IV 1175 / 1175 Sodium Bicarbonate 8.4% Inj 75 1075 / 1075 MEQ In 1/2 Normal Saline Inj 1, 000 ML @ 42 mls/hr IV.CONT . Q24H [facility] Rx#:[id number] Rocephin Inj 1,000 MG In NS Inj 100 / 100 100 ML @ 200 mls/hr IV.SIG Q24H [facility] Rx#:[id number] Oral 200 / 200 120 / 120 Anesthesia Amount 1800 / 1800 Output: Urine 275 / 275 1100 / 1100 Estimated Blood Loss 75 / 75 Urine Amount (Catheter) 375 / 375 600 / 600 625 / 625 Indwelling Temp Sensing 375 / 375 600 / 600 625 / 625 Catheter Other: Date of Last Bowel Movement 01/05/19 # Bowel Movements 0 0 Narrative: GENERAL: comfortable, low grade fever HEAD: Normocephalic. Atraumatic. MMM. Oropharynx clear. EYES: No scleral icterus. No injection or drainage. EOMI. NECK: Supple, trachea midline. No JVD or lymphadenopathy. CARDIOVASCULAR: Regular rate and rhythm without murmurs, gallops, or rubs. Left DP and PT pulses are 2+ RESPIRATORY: Breath sounds equal bilaterally. No accessory muscle use. GASTROINTESTINAL: Abdomen soft, non-tender, nondistended. MUSCULOSKELETAL: No cyanosis, or edema. Left lower extremity: surgical incision of bypass surgery. Bandage over left foot ulcer. - Urinary Catheter Management Indwelling Temp Sensing Catheter Cath placed during this visit: yes Reason for continuing: Other continuation reason Insertion date: 01/09/19 Insertion time: 08:30 Assessment and Plan - Assessment (1) Acute on chronic renal failure Code(s): N17.9 - Acute kidney failure, unspecified; N18.9 - Chronic kidney disease, unspecified Status: Acute Qualifiers: Chronic kidney disease stage: stage 3 (moderate) Plan: Patient had UTI and was on Bactrim for 10 days which could have caused acute worsening. Baseline Creatinine around 1.7-1.8. Some improvement in renal function today. Ultrasound of the kidney did not reveal any obstruction or hydronephrosis. Etiology of CKD likely due to diabetic nephropathy. Proteinuria on UA. Remains on bicarbonate drip. Monitor fluid and electrolytes. Avoid nephrotoxic agents. (2) Diabetes mellitus with neuropathy Code(s): E11.40 - Type 2 diabetes mellitus with diabetic neuropathy, unspecified Status: Chronic Qualifiers: Diabetes mellitus type: type 2 Diabetes mellitus oysterman insulin use: with oysterman use Qualified Code(s): E11.40 - Type 2 diabetes mellitus with diabetic neuropathy, unspecified; Z79.4 - longterm (current) use of insulin Plan: Insulin coverage to maintain blood glucose levels between 140 and 180 while hospitalized. (3) Hypertension Code(s): I10 - Essential (primary) hypertension Status: Chronic Qualifiers: Hypertension type: essential hypertension Qualified Code(s): I10 - Essential (primary) hypertension Plan: BP is high, start Losartan. (4) Acute UTI Code(s): N39.0 - Urinary tract infection, site not specified Status: Acute Plan: patient remains on Ceftriaxone. 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
--- NOTE | 2019-01-10 10:56 | P.PNFP ---
Subjective Interval history: Febrile up to 101.5 overnight. Patient seen and examined this AM. Denies CP, dyspnea, cough, abdl pain. Has jeffers catheter in place. Denies diarrhea. Reports pain at 8-9/10 of LLE, responds to current pain regimen. States she was on her feet once yesterday. <Bebemark Ephraim Mullins - 01/10/19 10:56> Results - Labs Result diagrams: 01/10/19 06:09 01/10/19 06:09 <Desirae Clark - 01/10/19 12:56> Abnormal lab results 01/07/19 01/09/19 01/09/19 Range/Units 20:55 08:12 15:22 RBC (4.00-5.30) mil/mm3 Hgb (11.6-15.3) gm/dL Hct (35.0-46.0) % MCHC (32.0-36.0) % MPV (7.0-11.0) fL [place] % (Auto) (0.0-8.0) % [place] # (Auto) (0.0-0.9) th/mm3 G6PD Greater than 21.0 H (7.0-20.5) U/g Hgb Chloride (98-107) meq/L Carbon Dioxide (21.0-32.0) meq/L BUN (7-18) mg/dL Creatinine (0.50-1.00) mg/dL Estimated GFR (>89) mL/min POC Glucose 117 H (68-110) mg/dl Random Glucose (74-106) mg/dL MTS Gel Crossmatch See Detail 01/09/19 01/10/19 01/10/19 Range/Units 22:47 06:09 06:09 RBC 2.52 L (4.00-5.30) mil/mm3 Hgb 7.9 L (11.6-15.3) gm/dL Hct 25.0 L (35.0-46.0) % MCHC 31.5 L (32.0-36.0) % MPV 6.8 L (7.0-11.0) fL [place] % (Auto) 11.1 H (0.0-8.0) % [place] # (Auto) 1.0 H (0.0-0.9) th/mm3 G6PD (7.0-20.5) U/g Hgb Chloride 117 H (98-107) meq/L Carbon Dioxide 16.0 L (21.0-32.0) meq/L BUN 53 H (7-18) mg/dL Creatinine 2.28 H (0.50-1.00) mg/dL Estimated GFR 21 L (>89) mL/min POC Glucose 175 H (68-110) mg/dl Random Glucose 119 H (74-106) mg/dL MTS Gel Crossmatch 01/10/19 Range/Units 08:05 RBC (4.00-5.30) mil/mm3 Hgb (11.6-15.3) gm/dL Hct (35.0-46.0) % MCHC (32.0-36.0) % MPV (7.0-11.0) fL [place] % (Auto) (0.0-8.0) % [place] # (Auto) (0.0-0.9) th/mm3 G6PD (7.0-20.5) U/g Hgb Chloride (98-107) meq/L Carbon Dioxide (21.0-32.0) meq/L BUN (7-18) mg/dL Creatinine (0.50-1.00) mg/dL Estimated GFR (>89) mL/min POC Glucose 149 H (68-110) mg/dl Random Glucose (74-106) mg/dL MTS Gel Crossmatch Short CBC 01/10/19 Range/Units 06:09 WBC 8.6 (4.0-11.0) th/mm3 Hgb 7.9 L (11.6-15.3) gm/dL Hct 25.0 L (35.0-46.0) % Plt Count 450 (150-450) th/mm3 BMP 01/10/19 06:09 Sodium 144 Potassium 4.7 Chloride 117 H Carbon Dioxide 16.0 L BUN 53 H Creatinine 2.28 H Calcium 8.7 <Desirae Clark - 01/10/19 12:56> Abnormal lab results 01/07/19 01/09/19 01/09/19 Range/Units 20:55 08:12 11:45 RBC (4.00-5.30) mil/mm3 Hgb (11.6-15.3) gm/dL Hct (35.0-46.0) % MCHC (32.0-36.0) % MPV (7.0-11.0) fL [place] % (Auto) (0.0-8.0) % [place] # (Auto) (0.0-0.9) th/mm3 G6PD Greater than 21.0 H (7.0-20.5) U/g Hgb Chloride (98-107) meq/L Carbon Dioxide (21.0-32.0) meq/L BUN (7-18) mg/dL Creatinine (0.50-1.00) mg/dL Estimated GFR (>89) mL/min POC Glucose 112 H (68-110) mg/dl Random Glucose (74-106) mg/dL MTS Gel Crossmatch See Detail 01/09/19 01/09/19 01/10/19 Range/Units 15:22 22:47 06:09 RBC 2.52 L (4.00-5.30) mil/mm3 Hgb 7.9 L (11.6-15.3) gm/dL Hct 25.0 L (35.0-46.0) % MCHC 31.5 L (32.0-36.0) % MPV 6.8 L (7.0-11.0) fL [place] % (Auto) 11.1 H (0.0-8.0) % [place] # (Auto) 1.0 H (0.0-0.9) th/mm3 G6PD (7.0-20.5) U/g Hgb Chloride (98-107) meq/L Carbon Dioxide (21.0-32.0) meq/L BUN (7-18) mg/dL Creatinine (0.50-1.00) mg/dL Estimated GFR (>89) mL/min POC Glucose 117 H 175 H (68-110) mg/dl Random Glucose (74-106) mg/dL MTS Gel Crossmatch 01/10/19 01/10/19 Range/Units 06:09 08:05 RBC (4.00-5.30) mil/mm3 Hgb (11.6-15.3) gm/dL Hct (35.0-46.0) % MCHC (32.0-36.0) % MPV (7.0-11.0) fL [place] % (Auto) (0.0-8.0) % [place] # (Auto) (0.0-0.9) th/mm3 G6PD (7.0-20.5) U/g Hgb Chloride 117 H (98-107) meq/L Carbon Dioxide 16.0 L (21.0-32.0) meq/L BUN 53 H (7-18) mg/dL Creatinine 2.28 H (0.50-1.00) mg/dL Estimated GFR 21 L (>89) mL/min POC Glucose 149 H (68-110) mg/dl Random Glucose 119 H (74-106) mg/dL MTS Gel Crossmatch Short CBC 01/10/19 Range/Units 06:09 WBC 8.6 (4.0-11.0) th/mm3 Hgb 7.9 L (11.6-15.3) gm/dL Hct 25.0 L (35.0-46.0) % Plt Count 450 (150-450) th/mm3 BMP 01/10/19 06:09 Sodium 144 Potassium 4.7 Chloride 117 H Carbon Dioxide 16.0 L BUN 53 H Creatinine 2.28 H Calcium 8.7 <[facility] R3,Ephraim - 01/10/19 10:56> Physical Exam Vital signs: Vital Signs 01/09/19 16:00 01/09/19 20:00 01/09/19 20:23 Temperature 98.3 F 101.5 F H Pulse Rate 85 96 H Respiratory Rate 16 18 Blood Pressure 162/70 H 130/78 Pulse Oximetry 96 95 94 L 01/09/19 22:00 01/10/19 00:00 01/10/19 04:00 Temperature 100.7 F H 99.3 F Pulse Rate 92 H 85 Respiratory Rate 17 18 18 Blood Pressure 146/63 H 163/66 H Pulse Oximetry 95 96 01/10/19 08:00 01/10/19 08:53 01/10/19 12:00 Temperature 100.4 F H 98.4 F Pulse Rate 87 96 H Respiratory Rate 19 17 Blood Pressure 168/65 H 122/68 Pulse Oximetry 95 95 95 Intake & Output 01/09/19 01/10/19 01/10/19 18:59 06:59 18:59 Intake Total 3175 / 3175 120 / 120 Output Total 725 / 725 1700 / 1700 625 / 625 Balance 2450 / 2450 -1700 / -1700 -505 / -505 Weight 74.3 kg Intake: IV 1175 / 1175 Sodium Bicarbonate 8.4% Inj 75 1075 / 1075 MEQ In 1/2 Normal Saline Inj 1, 000 ML @ 42 mls/hr IV.CONT . Q24H [facility] Rx#:[id number] Rocephin Inj 1,000 MG In NS Inj 100 / 100 100 ML @ 200 mls/hr IV.SIG Q24H [facility] Rx#:[id number] Oral 200 / 200 120 / 120 Anesthesia Amount 1800 / 1800 Output: Urine 275 / 275 1100 / 1100 Estimated Blood Loss 75 / 75 Urine Amount (Catheter) 375 / 375 600 / 600 625 / 625 Indwelling Temp Sensing 375 / 375 600 / 600 625 / 625 Catheter Other: Date of Last Bowel Movement 01/05/19 # Bowel Movements 0 0 <Desirae Clark - 01/10/19 12:56> Vital Signs 01/09/19 11:08 01/09/19 11:15 01/09/19 11:30 Temperature 97.3 F L Pulse Rate 80 74 80 Respiratory Rate 14 16 10 L Blood Pressure 152/65 H 154/66 H 179/77 H Pulse Oximetry 98 99 98 01/09/19 11:45 01/09/19 11:53 01/09/19 12:00 Temperature Pulse Rate 79 Respiratory Rate 10 L 12 Blood Pressure 140/62 Pulse Oximetry 97 96 01/09/19 12:01 01/09/19 12:12 01/09/19 12:31 Temperature 98.4 F 98.0 F Pulse Rate 82 82 81 Respiratory Rate 12 12 19 Blood Pressure 147/65 H 145/65 H 135/61 Pulse Oximetry 97 97 96 01/09/19 12:35 01/09/19 16:00 01/09/19 20:00 Temperature 98.3 F 101.5 F H Pulse Rate 81 85 96 H Respiratory Rate 16 18 Blood Pressure 162/70 H 130/78 Pulse Oximetry 96 95 01/09/19 20:23 01/09/19 22:00 01/10/19 00:00 Temperature 100.7 F H Pulse Rate 92 H Respiratory Rate 17 18 Blood Pressure 146/63 H Pulse Oximetry 94 L 95 01/10/19 04:00 01/10/19 08:00 01/10/19 08:53 Temperature 99.3 F 100.4 F H Pulse Rate 85 87 Respiratory Rate 18 19 Blood Pressure 163/66 H 168/65 H Pulse Oximetry 96 95 95 Intake & Output 01/09/19 01/10/19 01/10/19 18:59 06:59 18:59 Intake Total 3175 / 3175 120 / 120 Output Total 725 / 725 1700 / 1700 625 / 625 Balance 2450 / 2450 -1700 / -1700 -505 / -505 Weight 74.3 kg Intake: IV 1175 / 1175 Sodium Bicarbonate 8.4% Inj 75 1075 / 1075 MEQ In 1/2 Normal Saline Inj 1, 000 ML @ 42 mls/hr IV.CONT . Q24H [facility] Rx#:[id number] Rocephin Inj 1,000 MG In NS Inj 100 / 100 100 ML @ 200 mls/hr IV.SIG Q24H [facility] Rx#:[id number] Oral 200 / 200 120 / 120 Anesthesia Amount 1800 / 1800 Output: Urine 275 / 275 1100 / 1100 Estimated Blood Loss 75 / 75 Urine Amount (Catheter) 375 / 375 600 / 600 625 / 625 Indwelling Temp Sensing 375 / 375 600 / 600 625 / 625 Catheter Other: Date of Last Bowel Movement 01/05/19 # Bowel Movements 0 0 <Ephraim Lambert - 01/10/19 10:56> Narrative: GENERAL: 68 year old female lying flat in bed in NAD SKIN: Warm and dry. Minor venous stasis skin changes on LLE below the knee. LLE incision c/d/i HEAD: Normocephalic. Atraumatic. MMM. Oropharynx clear. EYES: No scleral icterus. No injection or drainage. EOMI. NECK: Supple, trachea midline. No JVD or lymphadenopathy. CARDIOVASCULAR: Regular rate and rhythm without murmurs, gallops, or rubs. Left DP and PT pulses are 2+ RESPIRATORY: Breath sounds equal bilaterally. No accessory muscle use. No increased WOB. GASTROINTESTINAL: Abdomen soft, non-tender, nondistended. MUSCULOSKELETAL: No cyanosis, or edema. Left medial heel ulcer is clean and dry with 2cm x 2cm eschar, does not appear to have good granulation tissue at the base. No drainage, no surrounding erythema. BACK: Nontender without obvious deformity. <Ayaka Lambertsh 01/10/19 10:56> - Urinary Catheter Management Indwelling Temp Sensing Catheter Cath placed during this visit: no <Desirae Clark - 01/10/19 12:56> yes <Kashmir Mullins,Ephraim 01/10/19 10:56> Reason for continuing: Other continuation reason <Bebevanam Susanna,Ephraim 01/10 10:56> Insertion date: 01/09/19 <Bebevanam Susanna,Ephraim 01/10/19 10:56> Insertion time: 08:30 <Bebevanam Susanna,Ephraim 01/10/19 10:56> Assessment and Plan - Assessment (1) Hypoxia Code(s): R09.02 - Hypoxemia Status: Resolved (2) Methemoglobinemia Code(s): D74.9 - Methemoglobinemia, unspecified Status: Resolved (3) Complicated UTI (urinary tract infection) Code(s): N39.0 - Urinary tract infection, site not specified Status: Acute (4) Acute on chronic renal failure Code(s): N17.9 - Acute kidney failure, unspecified; N18.9 - Chronic kidney disease, unspecified Status: Acute (5) Generalized weakness Code(s): R53.1 - Weakness Status: Chronic (6) Diabetes mellitus with neuropathy Code(s): E11.40 - Type 2 diabetes mellitus with diabetic neuropathy, unspecified Status: Chronic (7) Peripheral artery disease Code(s): I73.9 - Peripheral vascular disease, unspecified Status: Chronic (8) Diabetic ulcer of heel Code(s): E11.621 - Type 2 diabetes mellitus with foot ulcer; L97.409 - Non- pressure chronic ulcer of unspecified heel and midfoot with unspecified severity Status: Chronic (9) Anemia Code(s): D64.9 - Anemia, unspecified Status: Chronic (10) Hyperkalemia Code(s): E87.5 - Hyperkalemia Status: Resolved (11) Hypertension Code(s): I10 - Essential (primary) hypertension Status: Chronic (12) Nutrition, metabolism, and development symptoms Code(s): R63.8 - Other symptoms and signs concerning food and fluid intake Status: Acute <Desirae Clark - 01/10/19 12:56> (1) Hypoxia Code(s): R09.02 - Hypoxemia Status: Resolved (2) Methemoglobinemia Code(s): D74.9 - Methemoglobinemia, unspecified Status: Resolved (3) Complicated UTI (urinary tract infection) Code(s): N39.0 - Urinary tract infection, site not specified Status: Acute (4) Acute on chronic renal failure Code(s): N17.9 - Acute kidney failure, unspecified; N18.9 - Chronic kidney disease, unspecified Status: Acute (5) Generalized weakness Code(s): R53.1 - Weakness Status: Chronic (6) Diabetes mellitus with neuropathy Code(s): E11.40 - Type 2 diabetes mellitus with diabetic neuropathy, unspecified Status: Chronic (7) Peripheral artery disease Code(s): I73.9 - Peripheral vascular disease, unspecified Status: Chronic (8) Diabetic ulcer of heel Code(s): E11.621 - Type 2 diabetes mellitus with foot ulcer; L97.409 - Non- pressure chronic ulcer of unspecified heel and midfoot with unspecified severity Status: Chronic (9) Anemia Code(s): D64.9 - Anemia, unspecified Status: Chronic (10) Hyperkalemia Code(s): E87.5 - Hyperkalemia Status: Resolved (11) Hypertension Code(s): I10 - Essential (primary) hypertension Status: Chronic (12) Nutrition, metabolism, and development symptoms Code(s): R63.8 - Other symptoms and signs concerning food and fluid intake Status: Acute <Ayaka Lambertsh - 01/10/19 10:44> - Assessment and Plan 68 year old female with history of T2DM, diabetic peripheral neuropathy, anemia , peripheral arterial disease s/p bypass in RLE, recurrent UTIs and CKD presented meeting sepsis criteria due to UTI. Additionally, pt presents with hypoxia and O2 sats in the 80s, macrocytic anemia, methemoglobinemia 9.6%, acute on chronic renal failure, and chronic diabetic left heel ulcer scheduled for surgery on 01/[address] Mauricio. Fever -Check CXR, may be secondary to atelectasis following surgery vs pneumonia -Remove Jeffers catheter -Tylenol prn -IS to bedside Hypoxia, dizziness and weakness -Resolved -Consider secondary to methemoglobinemia -O2 sats remain appropriate on supplemental oxygen -Tachycardia resolved -CXR negative -Continue supplemental O2 to maintain O2 sats > 92%, wean as tolerated -Appreciate PT Sepsis 2/2 UTI -Urine culture growing 10-50,000 cfus mixed gram positive bj -Discontinue Rocephin -Remove Jeffers today -Renal/bladder US w/no evidence of hydronephrosis, but posterior bladder wall slightly thickened Recurrent UTIs -Plan as above -Consider Urology consult, per comments in [place] Methemoglobinemia -Repeat ABG is improved s/p Methylene Blue 50 mg IV -G6PD just over ULN -Stop potential offending drugs: pt was recently on Bactrim (Sulfanomides) and on ASA --Holding home ASA 325mg Acute on chronic renal failure -Cr 2.86 with baseline since March of Cr 1.74 and BUN 64 -Gentle IVF at 42 cc/hr with bicarb per nephrology (and due to CHF) -Consult nephrology--appreciate recs Diabetes type 2 -A1C on 12/07/18 was 5.4 -Accuchecks -Low SSI Hypertension -Continue Losartan per nephrology Macrocytic anemia -Unclear etiology (hemolysis? malabsorption from chronic PPI? occult bleed?) -Iron profile suggesting anemia of chronic disease -B12 at the upper limits of normal -Pt states she is non-compliant with iron sulfate treatment due to constipation PAD with LLE Chronic diabetic ulcer -Consult Dr. Mauricio, vascular surgery--appreciate recs --s/p left femoral popliteal bypass surgery on 01/09 -Continue home [place] 10/325 mg q6h prn pain -Morphine or Dilaudid prn -Podiatry has been consulted, will f/u x-ray Peripheral neuropathy 2/2 diabetes -Continue home Lyrica 75 mg daily Hyperkalemia -Resolved -Likely due to metabolic acidosis and acute kidney injury -EKG on admission in NSR FEN/GI/PPx: -Fluids: continue 1/2 NS with Na HCO3 per nephrology -Electrolytes: Continue to monitor -Nutrition: heart healthy diet -GI ppx: continue home Protonix 40 mg PO daily -DVT ppx: Lovenox 40 mg SQ daily <Ephraim Lambert - 01/10/19 10:56> - Attending Attestation The exam, history, and the medical decision-making described in the above note were completed with the assistance of the resident physician. I reviewed and agree with the findings presented. I attest that I had a [id number] encounter with the patient on the same day, and personally performed and documented my assessment and findings in the medical record. saw her with her daughter in the room, OT and PT. Her wound is stable with no sign of infection. I changed her dressing. She was able to sit up with PT and I encouraged her to get up. Dr Mauricio said she can get up and walk. She had a fever but it was probably due to atelectasis. will follow. encouraged deep breathing as well. <Desirae Clark - 01/10/19 12:56> <Ephraim Lambert - Last Filed: 01/10/19 10:44> (4) Acute on chronic renal failure Qualifiers: Chronic kidney disease stage: stage 3 (moderate) (6) Diabetes mellitus with neuropathy Qualifiers: Diabetes mellitus type: type 2 Diabetes mellitus supervisor intermediates insulin use: with supervisor intermediates use Qualified Code(s): E11.40 - Type 2 diabetes mellitus with diabetic neuropathy, unspecified; Z79.4 - terminal supervisor (current) use of insulin (8) Diabetic ulcer of heel Qualifiers: Diabetes mellitus type: type 2 Laterality: left Non-pressure ulcer stage: unspecified non-pressure ulcer stage Qualified Code(s): E11.621 - Type 2 diabetes mellitus with foot ulcer; L97.429 - Non-pressure chronic ulcer of left heel and midfoot with unspecified severity <Desirae Clark - Last Filed: 01/10/19 12:56> (4) Acute on chronic renal failure Qualifiers: Chronic kidney disease stage: stage 3 (moderate) (6) Diabetes mellitus with neuropathy Qualifiers: Diabetes mellitus type: type 2 Diabetes mellitus supervisor intermediates insulin use: with supervisor intermediates use Qualified Code(s): E11.40 - Type 2 diabetes mellitus with diabetic neuropathy, unspecified; Z79.4 - care home (current) use of insulin (8) Diabetic ulcer of heel Qualifiers: Diabetes mellitus type: type 2 Laterality: left Non-pressure ulcer stage: unspecified non-pressure ulcer stage Qualified Code(s): E11.621 - Type 2 diabetes mellitus with foot ulcer; L97.429 - Non-pressure chronic ulcer of left heel and midfoot with unspecified severity <Ephraim Lambert - Last Filed: 01/10/19 10:44> (4) Acute on chronic renal failure Qualifiers: Chronic kidney disease stage: stage 3 (moderate) (6) Diabetes mellitus with neuropathy Qualifiers: Diabetes mellitus type: type 2 Diabetes mellitus [facility] insulin use: with [facility] use Qualified Code(s): E11.40 - Type 2 diabetes mellitus with diabetic neuropathy, unspecified; Z79.4 - care home (current) use of insulin (8) Diabetic ulcer of heel Qualifiers: Diabetes mellitus type: type 2 Laterality: left Non-pressure ulcer stage: unspecified non-pressure ulcer stage Qualified Code(s): E11.621 - Type 2 diabetes mellitus with foot ulcer; L97.429 - Non-pressure chronic ulcer of left heel and midfoot with unspecified severity <Desirae Clark - Last Filed: 01/10/19 12:56> (4) Acute on chronic renal failure Qualifiers: Chronic kidney disease stage: stage 3 (moderate) (6) Diabetes mellitus with neuropathy Qualifiers: Diabetes mellitus type: type 2 Diabetes mellitus supervisor intermediates insulin use: with [facility] use Qualified Code(s): E11.40 - Type 2 diabetes mellitus with diabetic neuropathy, unspecified; Z79.4 - care home (current) use of insulin (8) Diabetic ulcer of heel Qualifiers: Diabetes mellitus type: type 2 Laterality: left Non-pressure ulcer stage: unspecified non-pressure ulcer stage Qualified Code(s): E11.621 - Type 2 diabetes mellitus with foot ulcer; L97.429 - Non-pressure chronic ulcer of left heel and midfoot with unspecified severity
[2019-01-10] MEDS ORDERED: Senna/Docusate Sodium 8.6/50 MG Tablet PO ONE (11:03)
--- NOTE | 2019-01-10 11:04 | P.PNVS ---
Subjective Post Op Day #: 1 Procedure: L LE bypass Subjective/Hospital Course: resting comfortably, appropriately sore but foot better Objective Vital Signs / I&O: Vital Signs 01/09/19 11:08 01/09/19 11:15 01/09/19 11:30 Temperature 97.3 F L Pulse Rate 80 74 80 Respiratory Rate 14 16 10 L Blood Pressure 152/65 H 154/66 H 179/77 H Pulse Oximetry 98 99 98 01/09/19 11:45 01/09/19 11:53 01/09/19 12:00 Temperature Pulse Rate 79 Respiratory Rate 10 L 12 Blood Pressure 140/62 Pulse Oximetry 97 96 01/09/19 12:01 01/09/19 12:12 01/09/19 12:31 Temperature 98.4 F 98.0 F Pulse Rate 82 82 81 Respiratory Rate 12 12 19 Blood Pressure 147/65 H 145/65 H 135/61 Pulse Oximetry 97 97 96 01/09/19 12:35 01/09/19 16:00 01/09/19 20:00 Temperature 98.3 F 101.5 F H Pulse Rate 81 85 96 H Respiratory Rate 16 18 Blood Pressure 162/70 H 130/78 Pulse Oximetry 96 95 01/09/19 20:23 01/09/19 22:00 01/10/19 00:00 Temperature 100.7 F H Pulse Rate 92 H Respiratory Rate 17 18 Blood Pressure 146/63 H Pulse Oximetry 94 L 95 01/10/19 04:00 01/10/19 08:00 01/10/19 08:53 Temperature 99.3 F 100.4 F H Pulse Rate 85 87 Respiratory Rate 18 19 Blood Pressure 163/66 H 168/65 H Pulse Oximetry 96 95 95 Intake & Output 01/09/19 01/10/19 01/10/19 18:59 06:59 18:59 Intake Total 3175 / 3175 120 / 120 Output Total 725 / 725 1700 / 1700 625 / 625 Balance 2450 / 2450 -1700 / -1700 -505 / -505 Weight 74.3 kg Intake: IV 1175 / 1175 Sodium Bicarbonate 8.4% Inj 75 1075 / 1075 MEQ In 1/2 Normal Saline Inj 1, 000 ML @ 42 mls/hr IV.CONT . Q24H [facility] Rx#:[id number] Rocephin Inj 1,000 MG In NS Inj 100 / 100 100 ML @ 200 mls/hr IV.SIG Q24H [facility] Rx#:[id number] Oral 200 / 200 120 / 120 Anesthesia Amount 1800 / 1800 Output: Urine 275 / 275 1100 / 1100 Estimated Blood Loss 75 / 75 Urine Amount (Catheter) 375 / 375 600 / 600 625 / 625 Indwelling Temp Sensing 375 / 375 600 / 600 625 / 625 Catheter Other: Date of Last Bowel Movement 01/05/19 # Bowel Movements 0 0 Exam: sitting in bed L groin Prevena in place, groin soft, mildly swollen L calf incision c/d/i strong AT signals distal leg Laboratory Results - last 24 hr 01/07/19 01/09/19 01/09/19 20:55 08:12 11:45 WBC RBC Hgb Hct MCV MCH MCHC RDW Plt Count MPV Neut % (Auto) Lymph % (Auto) [place] % (Auto) Eos % (Auto) Baso % (Auto) Neut # (Auto) Lymph # (Auto) [place] # (Auto) Eos # (Auto) Baso # (Auto) WBC Differential Differential Comment G6PD Greater than 21.0 H Sodium Potassium Chloride Carbon Dioxide Anion Gap BUN Creatinine Estimated GFR POC Glucose 112 H Random Glucose Calcium MTS Gel Crossmatch See Detail 01/09/19 01/09/19 01/10/19 15:22 22:47 06:09 WBC 8.6 RBC 2.52 L Hgb 7.9 L Hct 25.0 L MCV 99.5 MCH 31.3 MCHC 31.5 L RDW 15.1 Plt Count 450 MPV 6.8 L Neut % (Auto) 55.6 Lymph % (Auto) 29.9 [place] % (Auto) 11.1 H Eos % (Auto) 2.6 Baso % (Auto) 0.8 Neut # (Auto) 4.8 Lymph # (Auto) 2.6 [place] # (Auto) 1.0 H Eos # (Auto) 0.2 Baso # (Auto) 0.1 WBC Differential . Differential Comment Auto diff final G6PD Sodium Potassium Chloride Carbon Dioxide Anion Gap BUN Creatinine Estimated GFR POC Glucose 117 H 175 H Random Glucose Calcium MTS Gel Crossmatch 01/10/19 01/10/19 06:09 08:05 WBC RBC Hgb Hct MCV MCH MCHC RDW Plt Count MPV Neut % (Auto) Lymph % (Auto) [place] % (Auto) Eos % (Auto) Baso % (Auto) Neut # (Auto) Lymph # (Auto) [place] # (Auto) Eos # (Auto) Baso # (Auto) WBC Differential Differential Comment G6PD Sodium 144 Potassium 4.7 Chloride 117 H Carbon Dioxide 16.0 L Anion Gap 11 BUN 53 H Creatinine 2.28 H Estimated GFR 21 L POC Glucose 149 H Random Glucose 119 H Calcium 8.7 MTS Gel Crossmatch Microbiology 01/07/19 16:40 Aerobic Blood Culture - Preliminary Blood - Peripheral No growth in 3 days Anaerobic Blood Culture - Preliminary No growth in 3 days 01/07/19 15:14 Urine Culture - Final Clean Catch Urine 10-50,000 cfu/mL mixed gram positive bj (probable contaminants) Assessment and Plan - Plan POD#1 s/p L LE bypass, good signals in foot 1. OOB TC, work with PT and advance ad marleen 2. continue vascular checks q4h 3. [place] out Discharge Planning: from a vascular standpoint, can be discharged in 1-2 days pending mobility needs ASA, statin, and ideally plavix
[2019-01-10] MEDS ORDERED: Enoxaparin Inj 30 MG/0.3 ML Syringe SQ ONE (12:30)
[2019-01-10] MEDS: Sodium Bicarbonate 8.4% Inj 75 MEQ in Sodium Chloride 0.45 % Inj 1,000 ML IV.CONT SCH ×2 (13:29→23:55)
[2019-01-10] MEDS: Collagenase Oint 30 GM Tube TOPICAL SCH (13:32)
--- NOTE | 2019-01-10 15:43 | XR ---
EXAM DATE: 01/10/2019 3:35 PM EST AGE/SEX: 68 years / Female INDICATIONS: . Fever and congestion. CLINICAL DATA: This is the patient's initial encounter. Patient reports that signs and symptoms have been present for 1 day and indicates a pain score of 1/10. MEDICAL/SURGICAL HISTORY: . Diabetes. Hypertension. Congestive heart failure. TIA. None. COMPARISON: No prior exams available for comparison. FINDINGS: AP and lateral views of the chest demonstrate the lungs to be symmetrically aerated without evidence of mass, infiltrate or effusion. The cardiomediastinal contours are unremarkable. Osseous structure s are intact. CONCLUSION: No acute cardiopulmonary disease. Electronically signed by: Amrit Gutierres MD Board Certified Radiologist 01/10/2019 3:41 PM EST
[2019-01-10] MEDS: Senna/Docusate Sodium 8.6/50 MG Tablet PO SCH (21:02)
[2019-01-10] MEDS ORDERED: Bisacodyl 10 MG Supp RECTAL PRN (21:48)
[2019-01-11] MEDS: Acetaminophen 325 MG Tablet PO PRN ×2 (03:53→14:29)
[2019-01-11 05:51] LABS: Baso # (Auto) 0.1 th/mm3 (0.0-0.2); Baso % (Auto) 0.6 % (0.0-2.0); Eos % (Auto) 0.1 % (0.0-4.0); Lymph # (Auto) 1.6 th/mm3 (1.0-4.8); Lymph % (Auto) 11.3 % (9.0-44.0); Mean Corpuscular HGB Conc 31.3 % (32.0-36.0); Mean Corpuscular Hemoglobin 30.6 pg (27.0-34.0); Mean Corpuscular Volume 97.8 fL (80.0-100.0); Mean Platelet Volume 7.3 fL (7.0-11.0); Mono # (Auto) 0.9 th/mm3 (0.0-0.9); Mono % (Auto) 6.2 % (0.0-8.0); Neut # (Auto) 11.5 th/mm3 (1.8-7.7); Neut % (Auto) 81.8 % (16.0-70.0); Platelet Count 463 th/mm3 (150-450); Red Blood Count 2.13 mil/mm3 (4.00-5.30); Red Cell Distribution Width 14.7 % (11.6-17.2); White Blood Count 14.1 th/mm3 (4.0-11.0)
[2019-01-11 06:01] LABS: Hematocrit 20.8 % (35.0-46.0); Hemoglobin 6.5 gm/dL (11.6-15.3)
[2019-01-11 06:19] LABS: Calcium 8.6 mg/dL (8.5-10.1); Carbon Dioxide 18.4 meq/L (21.0-32.0); Potassium 4.1 meq/L (3.5-5.1)
[2019-01-11] MEDS: Ascorbic Acid 500 MG Tablet PO SCH (08:12)
[2019-01-11] MEDS: Pregabalin 75 MG Capsule PO SCH ×2 (08:12→21:08)
[2019-01-11] MEDS: Senna/Docusate Sodium 8.6/50 MG Tablet PO SCH ×2 (08:12→21:07)
[2019-01-11] MEDS: Collagenase Oint 30 GM Tube TOPICAL SCH (08:13)
[2019-01-11] MEDS: Insulin NovoLOG Aspart Correctional Sugar Inj SQ SCH ×4 (08:13→21:09)
[2019-01-11] MEDS ORDERED: Senna/Docusate Sodium 8.6/50 MG Tablet PO SCH (09:00)
--- NOTE | 2019-01-11 09:22 | P.PNNP ---
Subjective Interval history: complains of constipation. Renal function is better. I will stop IVF. Started oral Sodium bicarbonate. Vascular surgery note reviewed. Start Aspirin. Physical Exam Vital signs: Vital Signs 01/10/19 12:00 01/10/19 16:00 01/10/19 20:00 Temperature 98.4 F 98.7 F 99.1 F Pulse Rate 96 H 93 H 105 H Respiratory Rate 17 17 22 Blood Pressure 122/68 124/72 164/81 H Pulse Oximetry 95 95 96 01/11/19 00:00 01/11/19 04:00 01/11/19 07:42 Temperature 99.6 F 102.3 F H 100.3 F H Pulse Rate 102 H 105 H 92 H Respiratory Rate 18 20 24 Blood Pressure 153/65 H 142/65 H 155/56 H Pulse Oximetry 96 94 L 01/11/19 07:46 01/11/19 07:47 01/11/19 08:00 Temperature 98.9 F Pulse Rate 93 H Respiratory Rate 24 17 Blood Pressure 138/60 Pulse Oximetry 94 L 97 Intake & Output 01/10/19 01/11/19 01/11/19 18:59 06:59 18:59 Intake Total 920 / 920 925 / 925 Output Total 1225 / 1225 Balance -305 / -305 925 / 925 Weight 74.3 kg 69.3 kg Intake: IV 500 / 500 575 / 575 Sodium Bicarbonate 8.4% Inj 75 500 / 500 575 / 575 MEQ In 1/2 Normal Saline Inj 1, 000 ML @ 42 mls/hr IV.CONT . Q24H [facility] Rx#:[id number] Oral 420 / 420 350 / 350 Output: Urine 600 / 600 Urine Amount (Catheter) 625 / 625 Indwelling Temp Sensing 625 / 625 Catheter Other: # Voids 4 Date of Last Bowel Movement 01/05/19 01/07/19 # Bowel Movements 0 Narrative: GENERAL: 68 year old female lying flat in bed in NAD HEAD: Normocephalic. Atraumatic. MMM. Oropharynx clear. EYES: No scleral icterus. No injection or drainage. EOMI. NECK: Supple, trachea midline. No JVD or lymphadenopathy. CARDIOVASCULAR: Regular rate and rhythm without murmurs, gallops, or rubs. Left DP and PT pulses are 2+ RESPIRATORY: Breath sounds equal bilaterally. No accessory muscle use. No increased WOB. GASTROINTESTINAL: Abdomen soft, non-tender, nondistended. MUSCULOSKELETAL: No cyanosis, or edema. surgical incision LLE. Ulcer on the foot with dressing. BACK: Nontender without obvious deformity. - Urinary Catheter Management Indwelling Temp Sensing Catheter Cath placed during this visit: yes Reason for continuing: Other continuation reason Insertion date: 01/09/19 Insertion time: 08:30 Assessment and Plan - Assessment (1) Acute on chronic renal failure Code(s): N17.9 - Acute kidney failure, unspecified; N18.9 - Chronic kidney disease, unspecified Status: Acute Qualifiers: Chronic kidney disease stage: stage 3 (moderate) Plan: Patient had UTI and was on Bactrim for 10 days which could have caused acute worsening. Baseline Creatinine around 1.7-1.8. Renal function appears to be improving. Stop IVF. Start oral Sodium bicarbonate. Ultrasound of the kidney did not reveal any obstruction or hydronephrosis. Etiology of CKD likely due to diabetic nephropathy. Proteinuria on UA. Monitor fluid and electrolytes. Avoid nephrotoxic agents. (2) Diabetes mellitus with neuropathy Code(s): E11.40 - Type 2 diabetes mellitus with diabetic neuropathy, unspecified Status: Chronic Qualifiers: Diabetes mellitus type: type 2 Diabetes mellitus mcfp insulin use: with mcfp use Qualified Code(s): E11.40 - Type 2 diabetes mellitus with diabetic neuropathy, unspecified; Z79.4 - long term care pharmacist (current) use of insulin Plan: Insulin coverage to maintain blood glucose levels between 140 and 180 while hospitalized. (3) Hypertension Code(s): I10 - Essential (primary) hypertension Status: Chronic Qualifiers: Hypertension type: essential hypertension Qualified Code(s): I10 - Essential (primary) hypertension Plan: Started Losartan. BP is better. (4) Acute UTI Code(s): N39.0 - Urinary tract infection, site not specified Status: Acute Plan: Ceftriaxone stopped. 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 Consider switching to high intensity statin: Crestor 20 mg PO daily or Lipitor 80 mg PO daily. I have started ASA.
[2019-01-11] MEDS ORDERED: Sodium Chlor 0.9% Inj 250 ML IV.SIG SCH (10:00)
[2019-01-11] MEDS ORDERED: Polyethylene Glycol 3350 17 GM Packet PO ONE (10:15)
--- NOTE | 2019-01-11 10:47 | P.PNFP ---
Subjective Interval history: Overnight patient febrile up to 102.3F. Patient has complaints this morning of constipation. She specifically denies shortness of breath, cough, CP, TURNER or neck pain. Does endorse dysuria but report this is a chronic issue for her. Denies other urinary issues. Has not had a BM in about 4 days. Complains of abdominal fullness. Endorses chills, no subjective fevers. Denies drainage from incision site. Pain is stable in this area. States she sat up on the side of bed once yesterday and worked with physical therapy but otherwise has not been very mobile. <Ephraim Lambert - 01/11/19 10:47> Results - Labs Result diagrams: 01/11/19 04:19 01/11/19 04:19 <Desirae Clark - 01/11/19 10:57> Abnormal lab results 01/09/19 01/10/19 01/10/19 Range/Units 08:12 13:05 17:49 WBC (4.0-11.0) th/mm3 RBC (4.00-5.30) mil/mm3 Hgb (11.6-15.3) gm/dL Hct (35.0-46.0) % MCHC (32.0-36.0) % Plt Count (150-450) th/mm3 Neut % (Auto) (16.0-70.0) % Neut # (Auto) (1.8-7.7) th/mm3 Chloride (98-107) meq/L Carbon Dioxide (21.0-32.0) meq/L BUN (7-18) mg/dL Creatinine (0.50-1.00) mg/dL Estimated GFR (>89) mL/min POC Glucose 242 H 184 H (68-110) mg/dl Random Glucose (74-106) mg/dL MTS Gel Crossmatch See Detail 01/10/19 01/11/19 01/11/19 Range/Units 20:59 04:19 04:19 WBC 14.1 H D (4.0-11.0) th/mm3 RBC 2.13 L (4.00-5.30) mil/mm3 Hgb 6.5 L* (11.6-15.3) gm/dL Hct 20.8 L* (35.0-46.0) % MCHC 31.3 L (32.0-36.0) % Plt Count 463 H (150-450) th/mm3 Neut % (Auto) 81.8 H (16.0-70.0) % Neut # (Auto) 11.5 H (1.8-7.7) th/mm3 Chloride 115 H (98-107) meq/L Carbon Dioxide 18.4 L (21.0-32.0) meq/L BUN 46 H (7-18) mg/dL Creatinine 2.05 H (0.50-1.00) mg/dL Estimated GFR 24 L (>89) mL/min POC Glucose 278 H (68-110) mg/dl Random Glucose 191 H (74-106) mg/dL MTS Gel Crossmatch 01/11/19 Range/Units 07:51 WBC (4.0-11.0) th/mm3 RBC (4.00-5.30) mil/mm3 Hgb (11.6-15.3) gm/dL Hct (35.0-46.0) % MCHC (32.0-36.0) % Plt Count (150-450) th/mm3 Neut % (Auto) (16.0-70.0) % Neut # (Auto) (1.8-7.7) th/mm3 Chloride (98-107) meq/L Carbon Dioxide (21.0-32.0) meq/L BUN (7-18) mg/dL Creatinine (0.50-1.00) mg/dL Estimated GFR (>89) mL/min POC Glucose 208 H (68-110) mg/dl Random Glucose (74-106) mg/dL MTS Gel Crossmatch Short CBC 01/11/19 Range/Units 04:19 WBC 14.1 H D (4.0-11.0) th/mm3 Hgb 6.5 L* (11.6-15.3) gm/dL Hct 20.8 L* (35.0-46.0) % Plt Count 463 H (150-450) th/mm3 BMP 01/11/19 04:19 Sodium 144 Potassium 4.1 Chloride 115 H Carbon Dioxide 18.4 L BUN 46 H Creatinine 2.05 H Calcium 8.6 <Desirae Clark - 01/11/19 10:57> Abnormal lab results 01/09/19 01/10/19 01/10/19 Range/Units 08:12 13:05 17:49 WBC (4.0-11.0) th/mm3 RBC (4.00-5.30) mil/mm3 Hgb (11.6-15.3) gm/dL Hct (35.0-46.0) % MCHC (32.0-36.0) % Plt Count (150-450) th/mm3 Neut % (Auto) (16.0-70.0) % Neut # (Auto) (1.8-7.7) th/mm3 Chloride (98-107) meq/L Carbon Dioxide (21.0-32.0) meq/L BUN (7-18) mg/dL Creatinine (0.50-1.00) mg/dL Estimated GFR (>89) mL/min POC Glucose 242 H 184 H (68-110) mg/dl Random Glucose (74-106) mg/dL MTS Gel Crossmatch See Detail 01/10/19 01/11/19 01/11/19 Range/Units 20:59 04:19 04:19 WBC 14.1 H D (4.0-11.0) th/mm3 RBC 2.13 L (4.00-5.30) mil/mm3 Hgb 6.5 L* (11.6-15.3) gm/dL Hct 20.8 L* (35.0-46.0) % MCHC 31.3 L (32.0-36.0) % Plt Count 463 H (150-450) th/mm3 Neut % (Auto) 81.8 H (16.0-70.0) % Neut # (Auto) 11.5 H (1.8-7.7) th/mm3 Chloride 115 H (98-107) meq/L Carbon Dioxide 18.4 L (21.0-32.0) meq/L BUN 46 H (7-18) mg/dL Creatinine 2.05 H (0.50-1.00) mg/dL Estimated GFR 24 L (>89) mL/min POC Glucose 278 H (68-110) mg/dl Random Glucose 191 H (74-106) mg/dL MTS Gel Crossmatch 01/11/19 Range/Units 07:51 WBC (4.0-11.0) th/mm3 RBC (4.00-5.30) mil/mm3 Hgb (11.6-15.3) gm/dL Hct (35.0-46.0) % MCHC (32.0-36.0) % Plt Count (150-450) th/mm3 Neut % (Auto) (16.0-70.0) % Neut # (Auto) (1.8-7.7) th/mm3 Chloride (98-107) meq/L Carbon Dioxide (21.0-32.0) meq/L BUN (7-18) mg/dL Creatinine (0.50-1.00) mg/dL Estimated GFR (>89) mL/min POC Glucose 208 H (68-110) mg/dl Random Glucose (74-106) mg/dL MTS Gel Crossmatch Short CBC 01/11/19 Range/Units 04:19 WBC 14.1 H D (4.0-11.0) th/mm3 Hgb 6.5 L* (11.6-15.3) gm/dL Hct 20.8 L* (35.0-46.0) % Plt Count 463 H (150-450) th/mm3 BMP 01/11/19 04:19 Sodium 144 Potassium 4.1 Chloride 115 H Carbon Dioxide 18.4 L BUN 46 H Creatinine 2.05 H Calcium 8.6 <Kashmir [address] - 01/11/19 10:47> - Imaging Impressions Chest X-Ray 01/10/19 00:00 CONCLUSION: No acute cardiopulmonary disease. <Desirae Clark - 01/11/19 10:57> Impressions Chest X-Ray 01/10/19 00:00 CONCLUSION: No acute cardiopulmonary disease. <Kashmir ,[facility] - 01/11/19 10:47> Physical Exam Vital signs: Vital Signs 01/10/19 12:00 01/10/19 16:00 01/10/19 20:00 Temperature 98.4 F 98.7 F 99.1 F Pulse Rate 96 H 93 H 105 H Respiratory Rate 17 17 22 Blood Pressure 122/68 124/72 164/81 H Pulse Oximetry 95 95 96 01/11/19 00:00 01/11/19 04:00 01/11/19 07:42 Temperature 99.6 F 102.3 F H 100.3 F H Pulse Rate 102 H 105 H 92 H Respiratory Rate 18 20 24 Blood Pressure 153/65 H 142/65 H 155/56 H Pulse Oximetry 96 94 L 01/11/19 07:46 01/11/19 07:47 01/11/19 08:00 Temperature 98.9 F Pulse Rate 93 H Respiratory Rate 24 17 Blood Pressure 138/60 Pulse Oximetry 94 L 97 Intake & Output 01/10/19 01/11/19 01/11/19 18:59 06:59 18:59 Intake Total 920 / 920 925 / 925 Output Total 1225 / 1225 Balance -305 / -305 925 / 925 Weight 74.3 kg 69.3 kg Intake: IV 500 / 500 575 / 575 Sodium Bicarbonate 8.4% Inj 75 500 / 500 575 / 575 MEQ In 1/2 Normal Saline Inj 1, 000 ML @ 42 mls/hr IV.CONT . Q24H [facility] Rx#:[id number] Oral 420 / 420 350 / 350 Output: Urine 600 / 600 Urine Amount (Catheter) 625 / 625 Indwelling Temp Sensing 625 / 625 Catheter Other: # Voids 4 Date of Last Bowel Movement 01/05/19 01/07/19 # Bowel Movements 0 <Desirae Clark - 01/11/19 10:57> Vital Signs 01/10/19 12:00 01/10/19 16:00 01/10/19 20:00 Temperature 98.4 F 98.7 F 99.1 F Pulse Rate 96 H 93 H 105 H Respiratory Rate 17 17 22 Blood Pressure 122/68 124/72 164/81 H Pulse Oximetry 95 95 96 01/11/19 00:00 01/11/19 04:00 01/11/19 07:42 Temperature 99.6 F 102.3 F H 100.3 F H Pulse Rate 102 H 105 H 92 H Respiratory Rate 18 20 24 Blood Pressure 153/65 H 142/65 H 155/56 H Pulse Oximetry 96 94 L 01/11/19 07:46 01/11/19 07:47 01/11/19 08:00 Temperature 98.9 F Pulse Rate 93 H Respiratory Rate 24 17 Blood Pressure 138/60 Pulse Oximetry 94 L 97 Intake & Output 01/10/19 01/11/19 01/11/19 18:59 06:59 18:59 Intake Total 920 / 920 925 / 925 Output Total 1225 / 1225 Balance -305 / -305 925 / 925 Weight 74.3 kg 69.3 kg Intake: IV 500 / 500 575 / 575 Sodium Bicarbonate 8.4% Inj 75 500 / 500 575 / 575 MEQ In 1/2 Normal Saline Inj 1, 000 ML @ 42 mls/hr IV.CONT . Q24H [facility] Rx#:[id number] Oral 420 / 420 350 / 350 Output: Urine 600 / 600 Urine Amount (Catheter) 625 / 625 Indwelling Temp Sensing 625 / 625 Catheter Other: # Voids 4 Date of Last Bowel Movement 01/05/19 01/07/19 # Bowel Movements 0 <Kashmir MullinsEphraim - 01/11/19 10:47> Narrative: GENERAL: 68 year old female lying flat in bed in [facility] SKIN: Warm and dry. Minor venous stasis skin changes on LLE below the knee. LLE incision c/d/i. HEAD: Normocephalic. Atraumatic. MMM. Oropharynx clear. EYES: No scleral icterus. No injection or drainage. EOMI. NECK: Supple, trachea midline. No JVD or lymphadenopathy. CARDIOVASCULAR: Regular rate and rhythm without murmurs, gallops, or rubs. Left DP and PT pulses are 2+ RESPIRATORY: Breath sounds equal bilaterally. No accessory muscle use. No increased WOB. Bibasilar rales present. No wheezing. GASTROINTESTINAL: Abdomen soft, mild to moderate tenderness throughout, nondistended. No guarding. No rebound tenderness. MUSCULOSKELETAL: No cyanosis, or edema. Left medial heel ulcer is clean and dry with 2cm x 2cm eschar, does not appear to have good granulation tissue at the base; surrounding skin does look to be improving, no necrotic tissue is present. No drainage, no surrounding erythema. BACK: Nontender without obvious deformity. <Ephraim Lambert - 01/11/19 10:47> - Urinary Catheter Management Indwelling Temp Sensing Catheter Cath placed during this visit: no <Desirae Clark - 01/11/19 10:57> yes <Kashmir MullinsEphraim - 01/11/19 10:47> Reason for continuing: Other continuation reason <Kashmir Mullins,Ephraim - 01/11 10:47> Insertion date: 01/09/19 <Kashmir R3,Ephraim - 01/11/19 10:47> Insertion time: 08:30 <Oscaram R3,Ephraim - 01/11/19 10:47> Assessment and Plan - Assessment (1) Anemia Code(s): D64.9 - Anemia, unspecified Status: Acute (2) Peripheral artery disease Code(s): I73.9 - Peripheral vascular disease, unspecified Status: Chronic (3) Diabetic ulcer of heel Code(s): E11.621 - Type 2 diabetes mellitus with foot ulcer; L97.409 - Non- pressure chronic ulcer of unspecified heel and midfoot with unspecified severity Status: Chronic (4) Fever Code(s): R50.9 - Fever, unspecified Status: Acute (5) Hypoxia Code(s): R09.02 - Hypoxemia Status: Resolved (6) Methemoglobinemia Code(s): D74.9 - Methemoglobinemia, unspecified Status: Resolved (7) Complicated UTI (urinary tract infection) Code(s): N39.0 - Urinary tract infection, site not specified Status: Acute (8) Acute on chronic renal failure Code(s): N17.9 - Acute kidney failure, unspecified; N18.9 - Chronic kidney disease, unspecified Status: Acute (9) Generalized weakness Code(s): R53.1 - Weakness Status: Chronic (10) Diabetes mellitus with neuropathy Code(s): E11.40 - Type 2 diabetes mellitus with diabetic neuropathy, unspecified Status: Chronic (11) Hyperkalemia Code(s): E87.5 - Hyperkalemia Status: Resolved (12) Hypertension Code(s): I10 - Essential (primary) hypertension Status: Chronic (13) Nutrition, metabolism, and development symptoms Code(s): R63.8 - Other symptoms and signs concerning food and fluid intake Status: Acute <Desirae Clark - 01/11/19 10:57> (1) Anemia Code(s): D64.9 - Anemia, unspecified Status: Acute (2) Peripheral artery disease Code(s): I73.9 - Peripheral vascular disease, unspecified Status: Chronic (3) Diabetic ulcer of heel Code(s): E11.621 - Type 2 diabetes mellitus with foot ulcer; L97.409 - Non- pressure chronic ulcer of unspecified heel and midfoot with unspecified severity Status: Chronic (4) Fever Code(s): R50.9 - Fever, unspecified Status: Acute (5) Hypoxia Code(s): R09.02 - Hypoxemia Status: Resolved (6) Methemoglobinemia Code(s): D74.9 - Methemoglobinemia, unspecified Status: Resolved (7) Complicated UTI (urinary tract infection) Code(s): N39.0 - Urinary tract infection, site not specified Status: Acute (8) Acute on chronic renal failure Code(s): N17.9 - Acute kidney failure, unspecified; N18.9 - Chronic kidney disease, unspecified Status: Acute (9) Generalized weakness Code(s): R53.1 - Weakness Status: Chronic (10) Diabetes mellitus with neuropathy Code(s): E11.40 - Type 2 diabetes mellitus with diabetic neuropathy, unspecified Status: Chronic (11) Hyperkalemia Code(s): E87.5 - Hyperkalemia Status: Resolved (12) Hypertension Code(s): I10 - Essential (primary) hypertension Status: Chronic (13) Nutrition, metabolism, and development symptoms Code(s): R63.8 - Other symptoms and signs concerning food and fluid intake Status: Acute <Ephraim Lambert - 01/11/19 10:27> - Assessment and Plan 68 year old female with history of PAD s/p bypass in RLE, chronic left medial heel ulcer, T2DM, diabetic peripheral neuropathy, anemia, recurrent UTIs and CKD presented meeting sepsis criteria presumed due to UTI. Additionally, pt presented with hypoxia and O2 sats in the 80s, macrocytic anemia, methemoglobinemia 9.6%, acute on chronic renal failure, and chronic diabetic left heel ulcer. Fever -Continues to be febrile with associated leukocytosis, clinically the patient remains without signs of infection at this time -Exam significant for bibasilar rales likely atelectasis -CXR 01/10 no acute cardiopulmonary disease -Will repeat blood cultures, repeat UA and urine culture -[place] catheter removed 01/10 -Tylenol prn -IS to bedside Macrocytic anemia -Acute on chronic anemia, Hgb 6.5 this AM, mild tachycardia overnight -Will transfuse 2 units PRBCs, repeat H/H s/p transfusion -Not suspecting GI bleed at this time, continue to trend H/H, consider further workup if continues to decline -Iron profile suggesting anemia of chronic disease -B12 at the upper limits of normal -Pt states she is non-compliant with iron sulfate treatment due to constipation Hypoxia, dizziness and weakness -Resolved -Consider secondary to methemoglobinemia -O2 sats remain appropriate on supplemental oxygen -Tachycardia resolved -CXR negative -Continue supplemental O2 to maintain O2 sats > 92%, wean as tolerated -Appreciate PT Sepsis 2/2 UTI -Urine culture from 01/07 growing 10-50,000 cfus mixed gram positive bj -Repeat UA and urine culture as above -Discontinued Rocephin -Renal/bladder US w/no evidence of hydronephrosis, but posterior bladder wall slightly thickened Recurrent UTIs -Plan as above -Consider Urology consult, per comments in [place] Methemoglobinemia -Repeat ABG is improved s/p Methylene Blue 50 mg IV -G6PD just over ULN -Stop potential offending drugs: pt was recently on Bactrim (Sulfanomides) and on ASA --Holding home ASA 325mg Acute on chronic renal failure -Cr 2.86 on admission with baseline since March of Cr 1.74 and BUN 64 -Consult nephrology--appreciate recs --IVF discontinued, started on sodium bicarb -Continue to monitor renal indices Diabetes type 2 -A1C on 12/07/18 was 5.4 -Accuchecks -Low SSI Hypertension -Continue Losartan PAD with LLE Chronic diabetic ulcer -Consult Dr. Mauricio, vascular surgery--appreciate recs --s/p left femoral popliteal bypass surgery on 01/09 --Started on aspirin daily --Transition to medium/high intensity statin -Continue home [place] 10/325 mg q6h prn pain -Morphine or Dilaudid prn -Podiatry has been consulted, will f/u x-ray -OOB to chair TID, continue PT Peripheral neuropathy 2/2 diabetes -Continue home Lyrica 75 mg daily Hyperkalemia -Resolved -Likely due to metabolic acidosis and acute kidney injury -EKG on admission in [facility] FEN/GI/PPx: -Fluids: per PO -Electrolytes: Continue to monitor -Nutrition: heart healthy diet -GI ppx: continue home Protonix 40 mg PO daily -DVT ppx: b/l SCDs <Clovisdavid Ephraim Mullins - 01/11/19 10:47> - Attending Attestation The exam, history, and the medical decision-making described in the above note were completed with the assistance of the resident physician. I reviewed and agree with the findings presented. I attest that I had a [id number] encounter with the patient on the same day, and personally performed and documented my assessment and findings in the medical record. She specifically denies any s/s of local or systemic infection. she does not move much at all and was not using her inspirometer correctly so worked with her to improve her technique. her fevers are most likely from atelectasis so agree with her getting up out of bed and moving more. agree with checking cultures but with her methemoglobinemia will try not to start any unnecessary meds. <EduardoDesirae M - 01/11/19 10:57> <Kashmir MullinsEphraim - Last Filed: 01/11/19 10:27> (3) Diabetic ulcer of heel Qualifiers: Diabetes mellitus type: type 2 Laterality: left Non-pressure ulcer stage: unspecified non-pressure ulcer stage Qualified Code(s): E11.621 - Type 2 diabetes mellitus with foot ulcer; L97.429 - Non-pressure chronic ulcer of left heel and midfoot with unspecified severity (8) Acute on chronic renal failure Qualifiers: Chronic kidney disease stage: stage 3 (moderate) (10) Diabetes mellitus with neuropathy Qualifiers: Diabetes mellitus type: type 2 Diabetes mellitus fpc insulin use: with fpc use Qualified Code(s): E11.40 - Type 2 diabetes mellitus with diabetic neuropathy, unspecified; Z79.4 - detention (current) use of insulin <Desirae Clark - Last Filed: 01/11/19 10:57> (3) Diabetic ulcer of heel Qualifiers: Diabetes mellitus type: type 2 Laterality: left Non-pressure ulcer stage: unspecified non-pressure ulcer stage Qualified Code(s): E11.621 - Type 2 diabetes mellitus with foot ulcer; L97.429 - Non-pressure chronic ulcer of left heel and midfoot with unspecified severity (8) Acute on chronic renal failure Qualifiers: Chronic kidney disease stage: stage 3 (moderate) (10) Diabetes mellitus with neuropathy Qualifiers: Diabetes mellitus type: type 2 Diabetes mellitus fpc insulin use: with fpc use Qualified Code(s): E11.40 - Type 2 diabetes mellitus with diabetic neuropathy, unspecified; Z79.4 - detention (current) use of insulin <Ephraim Lambert - Last Filed: 01/11/19 10:27> (3) Diabetic ulcer of heel Qualifiers: Diabetes mellitus type: type 2 Laterality: left Non-pressure ulcer stage: unspecified non-pressure ulcer stage Qualified Code(s): E11.621 - Type 2 diabetes mellitus with foot ulcer; L97.429 - Non-pressure chronic ulcer of left heel and midfoot with unspecified severity (8) Acute on chronic renal failure Qualifiers: Chronic kidney disease stage: stage 3 (moderate) (10) Diabetes mellitus with neuropathy Qualifiers: Diabetes mellitus type: type 2 Diabetes mellitus manager intermediate insulin use: with manager intermediate use Qualified Code(s): E11.40 - Type 2 diabetes mellitus with diabetic neuropathy, unspecified; Z79.4 - detention (current) use of insulin <Desirae Clark - Last Filed: 01/11/19 10:57> (3) Diabetic ulcer of heel Qualifiers: Diabetes mellitus type: type 2 Laterality: left Non-pressure ulcer stage: unspecified non-pressure ulcer stage Qualified Code(s): E11.621 - Type 2 diabetes mellitus with foot ulcer; L97.429 - Non-pressure chronic ulcer of left heel and midfoot with unspecified severity (8) Acute on chronic renal failure Qualifiers: Chronic kidney disease stage: stage 3 (moderate) (10) Diabetes mellitus with neuropathy Qualifiers: Diabetes mellitus type: type 2 Diabetes mellitus fpc insulin use: with manager intermediate use Qualified Code(s): E11.40 - Type 2 diabetes mellitus with diabetic neuropathy, unspecified; Z79.4 - detention (current) use of insulin
--- NOTE | 2019-01-11 11:51 | XR ---
EXAM DATE: 01/11/2019 11:37 AM EST AGE/SEX: 68 years / Female INDICATIONS: Ulcer on left heel. CLINICAL DATA: This is the patient's subsequent encounter. Patient reports that signs and symptoms h ave been present for 4 - 6 days and indicates a pain score of 9/10. MEDICAL/SURGICAL HISTORY: Diabetes. None. COMPARISON: [facility], FOOT COMPLETE LEFT 3V, 10/03/2018. . FINDINGS: Bony structures are intact and in normal alignment. Osseous density is normal. No cortical destructio n or lucency observed. No soft tissue air. Soft tissues are unremarkable. No radiopaque foreign bodi es seen. CONCLUSION: Negative examination Electronically signed by: Corey Millan MD Board Certified Radiologist 01/11/2019 11:50 AM EST
--- NOTE | 2019-01-11 13:07 | P.PNVS ---
Subjective Post Op Day #: 2 Procedure: L LE bypass Subjective/Hospital Course: 68/F w/ a history of LEFT LE ischemia and tissue loss Pt s/p LEFT lower extremity femoral artery to below the knee popliteal artery distal bypass on 01/09/19 with cryo vein POD 2 Pt resting in bed comfortably w/o c/o pain Pt c/o L groin discomfort - Wound vac in place w/o hematoma or swelling B LE warm w/ motor intact Objective Vital Signs / I&O: Vital Signs 01/10/19 16:00 01/10/19 20:00 01/11/19 00:00 Temperature 98.7 F 99.1 F 99.6 F Pulse Rate 93 H 105 H 102 H Respiratory Rate 17 22 18 Blood Pressure 124/72 164/81 H 153/65 H Pulse Oximetry 95 96 96 01/11/19 04:00 01/11/19 07:42 01/11/19 07:46 Temperature 102.3 F H 100.3 F H Pulse Rate 105 H 92 H Respiratory Rate 20 24 24 Blood Pressure 142/65 H 155/56 H Pulse Oximetry 94 L 01/11/19 07:47 01/11/19 08:00 01/11/19 12:00 Temperature 98.9 F 97.9 F Pulse Rate 93 H 99 H Respiratory Rate 17 19 Blood Pressure 138/60 143/65 H Pulse Oximetry 94 L 97 95 Intake & Output 01/10/19 01/11/19 01/11/19 18:59 06:59 18:59 Intake Total 920 / 920 925 / 925 Output Total 1225 / 1225 Balance -305 / -305 925 / 925 Weight 74.3 kg 69.3 kg Intake: IV 500 / 500 575 / 575 Sodium Bicarbonate 8.4% Inj 75 500 / 500 575 / 575 MEQ In 1/2 Normal Saline Inj 1, 000 ML @ 42 mls/hr IV.CONT . Q[facility]H [facility] Rx#:[id number] Oral 420 / 420 350 / 350 Output: Urine 600 / 600 Urine Amount (Catheter) 625 / 625 Indwelling Temp Sensing 625 / 625 Catheter Other: # Voids 4 Date of Last Bowel Movement 01/05/19 01/07/19 # Bowel Movements 0 Exam: GENERAL: Alert in NAD/Speech clear/GCS 15 SKIN: Warm and dry/Left groin w/ wound vac in place- No hematoma or swelling B LE warm w/ motor intact L LE incision I/C/D Wound to Left ankle stable GASTROINTESTINAL: Abdomen soft, non-tender, nondistended. MUSCULOSKELETAL: No cyanosis, or edema/Strong multiphasic L LE distal signal ( anterior Tibial) Laboratory Results - last 24 hr 01/09/19 01/10/19 01/10/19 08:12 13:05 17:49 WBC RBC Hgb Hct MCV MCH MCHC RDW Plt Count MPV Prelim Diff (Auto) Neut % (Auto) Lymph % (Auto) [place] % (Auto) Eos % (Auto) Baso % (Auto) Neut # (Auto) Lymph # (Auto) [place] # (Auto) Eos # (Auto) Baso # (Auto) WBC Differential Differential Comment Sodium Potassium Chloride Carbon Dioxide Anion Gap BUN Creatinine Estimated GFR POC Glucose 242 H 184 H Random Glucose Calcium MTS Gel Crossmatch See Detail 01/10/19 01/11/19 01/11/19 20:59 04:19 04:19 WBC 14.1 H D RBC 2.13 L Hgb 6.5 L* Hct 20.8 L* MCV 97.8 MCH 30.6 MCHC 31.3 L RDW 14.7 Plt Count 463 H MPV 7.3 Prelim Diff (Auto) [employer] Neut % (Auto) 81.8 H Lymph % (Auto) 11.3 [place] % (Auto) 6.2 Eos % (Auto) 0.1 Baso % (Auto) 0.6 Neut # (Auto) 11.5 H Lymph # (Auto) 1.6 [place] # (Auto) 0.9 Eos # (Auto) 0.0 Baso # (Auto) 0.1 WBC Differential . Differential Comment Auto diff final Sodium 144 Potassium 4.1 Chloride 115 H Carbon Dioxide 18.4 L Anion Gap 11 BUN 46 H Creatinine 2.05 H Estimated GFR 24 L POC Glucose 278 H Random Glucose 191 H Calcium 8.6 MTS Gel Crossmatch 01/11/19 07:51 WBC RBC Hgb Hct MCV MCH MCHC RDW Plt Count MPV Prelim Diff (Auto) Neut % (Auto) Lymph % (Auto) [place] % (Auto) Eos % (Auto) Baso % (Auto) Neut # (Auto) Lymph # (Auto) [place] # (Auto) Eos # (Auto) Baso # (Auto) WBC Differential Differential Comment Sodium Potassium Chloride Carbon Dioxide Anion Gap BUN Creatinine Estimated GFR POC Glucose 208 H Random Glucose Calcium MTS Gel Crossmatch Microbiology 01/07/19 16:40 Aerobic Blood Culture - Preliminary Blood - Peripheral No growth in 4 days Anaerobic Blood Culture - Preliminary No growth in 4 days Assessment and Plan - Plan POD#2 Pt s/p L LE bypass Looks great overall Strong distal signal present Plan Continue neurovascular checks Continue pain control Continue PT- OOB TC/Ambulation w/ PT Courtney Christopher NP [facility] [address] [phone] Discharge Planning: from a vascular standpoint, can be discharged in 1-2 days pending mobility needs ASA, statin, and ideally plavix
[2019-01-11] MEDS: Sodium Bicarbonate 650 MG Tablet PO SCH (21:07)
[2019-01-11 21:51] LABS: Bacteria,Urine Many /hpf; Bilirubin,Urine Negative (Negative); Clarity,Urine Turbid (Clear); Color,Urine Yellow (Yellw/Straw); Glucose,Urine (UA) Negative (Negative); Leukocyte Esterase,Urine Large (Negative); Nitrite,Urine Negative (Negative); Specific Gravity,Urine 1.005 (1.002-1.035); Squamous Epithelial Cell,Urine 1 /hpf (0-5)
[2019-01-12 01:34] LABS: Baso # (Auto) 0.1 th/mm3 (0.0-0.2); Baso % (Auto) 0.8 % (0.0-2.0); Eos # (Auto) 0.3 th/mm3 (0.0-0.4); Eos % (Auto) 1.4 % (0.0-4.0); Hematocrit 25.9 % (35.0-46.0); Hemoglobin 9.5 gm/dL (11.6-15.3); Lymph # (Auto) 2.7 th/mm3 (1.0-4.8); Lymph % (Auto) 15.1 % (9.0-44.0); Mean Corpuscular Hemoglobin 34.3 pg (27.0-34.0); Mean Corpuscular Volume 93.3 fL (80.0-100.0); Mean Platelet Volume 7.2 fL (7.0-11.0); Mono # (Auto) 1.6 th/mm3 (0.0-0.9); Mono % (Auto) 9.2 % (0.0-8.0); Neut % (Auto) 73.5 % (16.0-70.0); Platelet Count 367 th/mm3 (150-450); Red Blood Count 2.77 mil/mm3 (4.00-5.30); Red Cell Distribution Width 16.7 % (11.6-17.2); White Blood Count 17.7 th/mm3 (4.0-11.0)
[2019-01-12 01:35] LABS: Mean Corpuscular HGB Conc 36.8 % (32.0-36.0)
[2019-01-12 01:56] LABS: Albumin 2.4 g/dL (3.4-5.0); Calcium 8.7 mg/dL (8.5-10.1); Carbon Dioxide 23.2 meq/L (21.0-32.0); Phosphorus 2.4 mg/dL (2.5-4.9); Potassium 4.6 meq/L (3.5-5.1)
[2019-01-12 04:10] LABS: Platelet Estimate Normal (Normal); Platelet Morphology Normal (Normal)
--- NOTE | 2019-01-12 08:17 | P.PNFP ---
Subjective Interval history: No acute events overnight. Last fever 102.2F yesterday afternoon. Vitals stable. Patient seen and examined this AM. Reports a couple small BMs yesterday which gave her a little relief but endorses continued constipation. Denies abdl pain. Denies fevers, chills, CP, dyspnea, cough. Denies new urinary symptoms. States her pain is controlled. Otherwise does not report specific complaints or concerns. <Kashmir MullinsEphraim - 01/12/19 13:19> Results - Labs Result diagrams: 01/13/19 10:47 01/12/19 01:20 <Desirae Clark - 01/13/19 17:51> Abnormal lab results 01/12/19 01/13/19 01/13/19 Range/Units 20:15 07:48 10:47 WBC 12.8 H (4.0-11.0) th/mm3 RBC 3.21 L (4.00-5.30) mil/mm3 Hgb 10.1 L (11.6-15.3) gm/dL Hct 30.8 L (35.0-46.0) % [place] % (Auto) 8.8 H (0.0-8.0) % Eos % (Auto) 8.0 H (0.0-4.0) % Neut # (Auto) 8.0 H (1.8-7.7) th/mm3 [place] # (Auto) 1.1 H (0.0-0.9) th/mm3 Eos # (Auto) 1.0 H (0.0-0.4) th/mm3 POC Glucose 208 H 131 H (68-110) mg/dl 01/13/19 01/13/19 Range/Units 12:12 16:37 WBC (4.0-11.0) th/mm3 RBC (4.00-5.30) mil/mm3 Hgb (11.6-15.3) gm/dL Hct (35.0-46.0) % [place] % (Auto) (0.0-8.0) % Eos % (Auto) (0.0-4.0) % Neut # (Auto) (1.8-7.7) th/mm3 [place] # (Auto) (0.0-0.9) th/mm3 Eos # (Auto) (0.0-0.4) th/mm3 POC Glucose 138 H 168 H (68-110) mg/dl Short CBC 01/13/19 Range/Units 10:47 WBC 12.8 H (4.0-11.0) th/mm3 Hgb 10.1 L (11.6-15.3) gm/dL Hct 30.8 L (35.0-46.0) % Plt Count 432 (150-450) th/mm3 <Desirae Clark Britt - 01/13/19 17:51> Abnormal lab results 01/11/19 01/11/19 01/11/19 Range/Units 12:17 12:53 17:35 WBC (4.0-11.0) th/mm3 RBC (4.00-5.30) mil/mm3 Hgb (11.6-15.3) gm/dL Hct (35.0-46.0) % MCH (27.0-34.0) pg MCHC (32.0-36.0) % Neut % (Auto) (16.0-70.0) % [place] % (Auto) (0.0-8.0) % Neut # (Auto) (1.8-7.7) th/mm3 [place] # (Auto) (0.0-0.9) th/mm3 Keratocytes (None) Chloride (98-107) meq/L BUN (7-18) mg/dL Creatinine (0.50-1.00) mg/dL Estimated GFR (>89) mL/min POC Glucose 259 H 209 H (68-110) mg/dl Random Glucose (74-106) mg/dL Phosphorus (2.5-4.9) mg/dL Albumin (3.4-5.0) g/dL Urine Clarity (Clear) Urine Protein (Neg-Trace) mg/dL Urine Occult Blood (Negative) Ur Leukocyte Esterase (Negative) Urine RBC (0-3) /hpf Urine WBC Clumps (None) Urine Bacteria (None) /hpf MTS Gel Crossmatch See Detail 01/11/19 01/11/19 01/12/19 Range/Units 21:06 21:35 01:20 WBC 17.7 H (4.0-11.0) th/mm3 RBC 2.77 L (4.00-5.30) mil/mm3 Hgb 9.5 L D (11.6-15.3) gm/dL Hct 25.9 L (35.0-46.0) % MCH 34.3 H (27.0-34.0) pg MCHC 36.8 H (32.0-36.0) % Neut % (Auto) 73.5 H (16.0-70.0) % [place] % (Auto) 9.2 H (0.0-8.0) % Neut # (Auto) 13.0 H (1.8-7.7) th/mm3 [place] # (Auto) 1.6 H (0.0-0.9) th/mm3 Keratocytes Occ H (None) Chloride (98-107) meq/L BUN (7-18) mg/dL Creatinine (0.50-1.00) mg/dL Estimated GFR (>89) mL/min POC Glucose 215 H (68-110) mg/dl Random Glucose (74-106) mg/dL Phosphorus (2.5-4.9) mg/dL Albumin (3.4-5.0) g/dL Urine Clarity Turbid H (Clear) Urine Protein 30 H (Neg-Trace) mg/dL Urine Occult Blood Moderate H (Negative) Ur Leukocyte Esterase Large H (Negative) Urine RBC 16 H (0-3) /hpf Urine WBC Clumps Many H (None) Urine Bacteria Many H (None) /hpf MTS Gel Crossmatch 01/12/19 Range/Units 01:20 WBC (4.0-11.0) th/mm3 RBC (4.00-5.30) mil/mm3 Hgb (11.6-15.3) gm/dL Hct (35.0-46.0) % MCH (27.0-34.0) pg MCHC (32.0-36.0) % Neut % (Auto) (16.0-70.0) % [place] % (Auto) (0.0-8.0) % Neut # (Auto) (1.8-7.7) th/mm3 [place] # (Auto) (0.0-0.9) th/mm3 Keratocytes (None) Chloride 112 H (98-107) meq/L BUN 51 H (7-18) mg/dL Creatinine 1.99 H (0.50-1.00) mg/dL Estimated GFR 25 L (>89) mL/min POC Glucose (68-110) mg/dl Random Glucose 145 H (74-106) mg/dL Phosphorus 2.4 L (2.5-4.9) mg/dL Albumin 2.4 L (3.4-5.0) g/dL Urine Clarity (Clear) Urine Protein (Neg-Trace) mg/dL Urine Occult Blood (Negative) Ur Leukocyte Esterase (Negative) Urine RBC (0-3) /hpf Urine WBC Clumps (None) Urine Bacteria (None) /hpf MTS Gel Crossmatch Short CBC 01/12/19 Range/Units 01:20 WBC 17.7 H (4.0-11.0) th/mm3 Hgb 9.5 L D (11.6-15.3) gm/dL Hct 25.9 L (35.0-46.0) % Plt Count 367 (150-450) th/mm3 BMP 01/12/19 01:20 Sodium 142 Potassium 4.6 Chloride 112 H Carbon Dioxide 23.2 BUN 51 H Creatinine 1.99 H Calcium 8.7 Liver Function 01/12/19 Range/Units 01:20 Albumin 2.4 L (3.4-5.0) g/dL Urine 01/11/19 Range/Units 21:35 Urine Color Yellow (Yellw/Straw) Urine Clarity Turbid H (Clear) Urine pH 6.0 (5.0-8.5) Ur Specific [place] 1.005 (1.002-1.035) Urine Protein 30 H (Neg-Trace) mg/dL Urine Glucose (UA) Negative (Negative) mg/dL <Kashmir MullinsEphraim - 01/12/19 08:17> - Imaging Impressions Foot X-Ray 01/11/19 00:00 CONCLUSION: Negative examination <Kashmir MullinsEphraim - 01/12/19 08:17> Physical Exam Vital signs: Vital Signs 01/12/19 20:00 01/12/19 20:22 01/12/19 23:48 Temperature 98.7 F Pulse Rate 72 71 61 Respiratory Rate 18 Blood Pressure 118/56 L Pulse Oximetry 96 01/13/19 00:00 01/13/19 00:46 01/13/19 03:53 Temperature 98.1 F 98.8 F Pulse Rate 64 69 70 Respiratory Rate 18 18 Blood Pressure 115/58 L 126/60 Pulse Oximetry 96 96 01/13/19 03:57 01/13/19 08:00 Temperature 97.6 F Pulse Rate 77 78 Respiratory Rate 17 Blood Pressure 177/68 H Pulse Oximetry 97 Intake & Output 01/12/19 01/13/19 01/13/19 18:59 06:59 18:59 Intake Total 250 / 250 Balance 250 / 250 Weight 69.3 kg Intake: IV 250 / 250 Other: Mode Setting Left Groin Continuous # Voids 8 Date of Last Bowel Movement 01/12/19 01/12/19 # Bowel Movements 3 <Desirae Clark M - 01/13/19 17:51> Vital Signs 01/11/19 09:55 01/11/19 12:00 01/11/19 14:16 Temperature 97.9 F 100.7 F H Pulse Rate 99 H 96 H Respiratory Rate 19 Blood Pressure 143/65 H 130/61 Pulse Oximetry 96 95 93 L 01/11/19 14:41 01/11/19 16:00 01/11/19 16:20 Temperature 100.7 F H 100.7 F H 102.2 F H Pulse Rate 95 H 97 H 97 H Respiratory Rate 16 18 17 Blood Pressure 129/64 129/64 134/63 Pulse Oximetry 94 L 96 94 L 01/11/19 18:11 01/11/19 18:12 01/11/19 18:32 Temperature 100.1 F H 100.1 F H 97.9 F Pulse Rate 93 H 93 H 91 H Respiratory Rate 16 16 17 Blood Pressure 129/62 129/62 137/60 Pulse Oximetry 93 L 95 01/11/19 20:00 01/12/19 00:00 01/12/19 04:00 Temperature 99.1 F 98.2 F 98 F Pulse Rate 90 92 H 87 Respiratory Rate 20 18 20 Blood Pressure 142/64 H 156/64 H 132/68 Pulse Oximetry 94 L 95 94 L 01/12/19 07:34 01/12/19 07:39 Temperature 99.1 F 99.1 F Pulse Rate 82 82 Respiratory Rate 16 16 Blood Pressure 148/67 H 148/67 H Pulse Oximetry 94 L 94 L Intake & Output 01/11/19 01/12/19 01/12/19 18:59 06:59 18:59 Intake Total 1960 / 1960 1120 / 1120 Output Total 400 / 400 650 / 650 Balance 1560 / 1560 470 / 470 Weight 73.1 kg Intake: IV 600 / 600 Sodium Bicarbonate 8.4% Inj 75 600 / 600 MEQ In 1/2 Normal Saline Inj 1, 000 ML @ 42 mls/hr IV.CONT . Q24H [facility] Rx#:[id number] Oral 960 / 960 720 / 720 Intake (Blood Product) Amt 400 / 400 400 / 400 Rbc As-3 Leukoreduced Unit 400 / 400 [id number] Rbc As-3 Leukoreduced Unit 0 / 0 400 / 400 [id number] Output: Urine 400 / 400 650 / 650 Other: # Voids 2 # Incontinent Voids 3 Date of Last Bowel Movement 01/11/19 01/11/19 # Bowel Movements 1 2 <Kashmir Mullins,Ephraim - 01/12/19 08:17> Narrative: GENERAL: 68 year old female lying flat in bed in [facility] SKIN: Warm and dry. Minor venous stasis skin changes on LLE below the knee. LLE incision c/d/i. HEAD: Normocephalic. Atraumatic. MMM. Oropharynx clear. EYES: No scleral icterus. No injection or drainage. EOMI. NECK: Supple, trachea midline. No JVD or lymphadenopathy. CARDIOVASCULAR: Regular rate and rhythm without murmurs, gallops, or rubs. Left DP and PT pulses are 2+ RESPIRATORY: Breath sounds equal bilaterally. No accessory muscle use. No increased WOB. Bibasilar rales present. No wheezing. GASTROINTESTINAL: Abdomen soft, mild to moderate tenderness throughout, nondistended. No guarding. No rebound tenderness. MUSCULOSKELETAL: No cyanosis, or edema. Left medial heel ulcer is clean and dry with 2cm x 2cm eschar, does not appear to have good granulation tissue at the base; surrounding skin does look to be improving, no necrotic tissue is present. No drainage, no surrounding erythema. BACK: Nontender without obvious deformity. <Kashmir Mullins,Ephraim - 01/12/19 13:11> - Urinary Catheter Management Indwelling Temp Sensing Catheter Cath placed during this visit: no <Desirae Clark - 01/13/19 17:51> yes <Kashmir Mullins,Ephraim - 01/12/19 13:19> Reason for continuing: Other continuation reason <Kandavanam R3,Ephraim - 01/12 08:17> Insertion date: 01/09/19 <Kandavanam R3,Ephraim - 01/12/19 08:17> Insertion time: 08:30 <Kandavanam R3,Ephraim - 01/12/19 08:17> Assessment and Plan - Assessment (1) Anemia Code(s): D64.9 - Anemia, unspecified Status: Chronic (2) Peripheral artery disease Code(s): I73.9 - Peripheral vascular disease, unspecified Status: Chronic (3) Diabetic ulcer of heel Code(s): E11.621 - Type 2 diabetes mellitus with foot ulcer; L97.409 - Non- pressure chronic ulcer of unspecified heel and midfoot with unspecified severity Status: Chronic (4) Fever Code(s): R50.9 - Fever, unspecified Status: Resolved (5) Hypoxia Code(s): R09.02 - Hypoxemia Status: Resolved (6) Methemoglobinemia Code(s): D74.9 - Methemoglobinemia, unspecified Status: Resolved (7) Complicated UTI (urinary tract infection) Code(s): N39.0 - Urinary tract infection, site not specified Status: Acute (8) Acute on chronic renal failure Code(s): N17.9 - Acute kidney failure, unspecified; N18.9 - Chronic kidney disease, unspecified Status: Acute (9) Generalized weakness Code(s): R53.1 - Weakness Status: Chronic (10) Diabetes mellitus with neuropathy Code(s): E11.40 - Type 2 diabetes mellitus with diabetic neuropathy, unspecified Status: Chronic (11) Hyperkalemia Code(s): E87.5 - Hyperkalemia Status: Resolved (12) Hypertension Code(s): I10 - Essential (primary) hypertension Status: Chronic (13) Nutrition, metabolism, and development symptoms Code(s): R63.8 - Other symptoms and signs concerning food and fluid intake Status: Acute <Desirae Clark - 01/13/19 17:51> (1) Anemia Code(s): D64.9 - Anemia, unspecified Status: Acute (2) Peripheral artery disease Code(s): I73.9 - Peripheral vascular disease, unspecified Status: Chronic (3) Diabetic ulcer of heel Code(s): E11.621 - Type 2 diabetes mellitus with foot ulcer; L97.409 - Non- pressure chronic ulcer of unspecified heel and midfoot with unspecified severity Status: Chronic (4) Fever Code(s): R50.9 - Fever, unspecified Status: Acute (5) Hypoxia Code(s): R09.02 - Hypoxemia Status: Resolved (6) Methemoglobinemia Code(s): D74.9 - Methemoglobinemia, unspecified Status: Resolved (7) Complicated UTI (urinary tract infection) Code(s): N39.0 - Urinary tract infection, site not specified Status: Acute (8) Acute on chronic renal failure Code(s): N17.9 - Acute kidney failure, unspecified; N18.9 - Chronic kidney disease, unspecified Status: Acute (9) Generalized weakness Code(s): R53.1 - Weakness Status: Chronic (10) Diabetes mellitus with neuropathy Code(s): E11.40 - Type 2 diabetes mellitus with diabetic neuropathy, unspecified Status: Chronic (11) Hyperkalemia Code(s): E87.5 - Hyperkalemia Status: Resolved (12) Hypertension Code(s): I10 - Essential (primary) hypertension Status: Chronic (13) Nutrition, metabolism, and development symptoms Code(s): R63.8 - Other symptoms and signs concerning food and fluid intake Status: Acute <Kashmir R3,Ephraim - 01/12/19 13:16> - Assessment and Plan 68 year old female with history of PAD s/p bypass in RLE, chronic left medial heel ulcer, T2DM, diabetic peripheral neuropathy, anemia, recurrent UTIs and CKD presented meeting sepsis criteria presumed due to UTI. Additionally, pt presented with hypoxia and O2 sats in the 80s, macrocytic anemia, methemoglobinemia 9.6%, acute on chronic renal failure, and chronic diabetic left heel ulcer. Fever -Fevers seem to be resolving, WBC continues to uptrend but patient remains clinically without symptoms -Exam significant for bibasilar rales likely atelectasis -CXR 01/10 no acute cardiopulmonary disease -Repeat blood cultures are NG1D -Follow repeat urine cultures -[place] catheter removed 01/10 -Tylenol prn -IS to bedside Macrocytic anemia -Hgb 9.5 s/p 2 units PRBCs -Not suspecting GI bleed at this time, continue to trend H/H, consider further workup if continues to decline -Iron profile suggesting anemia of chronic disease -B12 at the upper limits of normal -Pt states she is non-compliant with iron sulfate treatment due to constipation Hypoxia, dizziness and weakness -Resolved -Consider secondary to methemoglobinemia -O2 sats remain appropriate on supplemental oxygen -Tachycardia resolved -CXR negative -Continue supplemental O2 to maintain O2 sats > 92%, wean as tolerated -Appreciate PT Sepsis 2/2 UTI -Urine culture from 01/07 growing 10-50,000 cfus mixed gram positive bj -Repeat UA and urine culture as above -Discontinued Rocephin -Renal/bladder US w/no evidence of hydronephrosis, but posterior bladder wall slightly thickened Recurrent UTIs -Plan as above -Consider Urology consult, per comments in [place] Methemoglobinemia -Repeat ABG is improved s/p Methylene Blue 50 mg IV -G6PD just over ULN -Stop potential offending drugs: pt was recently on Bactrim (Sulfanomides) and on ASA --Holding home ASA 325mg Acute on chronic renal failure -Cr 2.86 on admission with baseline since March of Cr 1.74 and BUN 64 -Consult nephrology--appreciate recs --IVF discontinued, started on sodium bicarb -Continue to monitor renal indices Diabetes type 2 -A1C on 12/07/18 was 5.4 -Accuchecks -Low SSI Hypertension -Continue Losartan PAD with LLE Chronic diabetic ulcer -Consult Dr. Mauricio, vascular surgery--appreciate recs --s/p left femoral popliteal bypass surgery on 01/09 --Started on aspirin daily --Transition to medium/high intensity statin -Continue home [place] 10/325 mg q6h prn pain -Morphine or Dilaudid prn -Foot x-ray wnl -OOB to chair TID, continue PT Peripheral neuropathy 2/2 diabetes -Continue home Lyrica 75 mg daily Hyperkalemia -Resolved -Likely due to metabolic acidosis and acute kidney injury -EKG on admission in NSR Constipation - Constipation protocol - Continue collin-colace 2 tabs po bid - Miralax or lactulose prn FEN/GI/PPx: -Fluids: per PO -Electrolytes: Continue to monitor -Nutrition: heart healthy diet -GI ppx: continue home Protonix 40 mg PO daily -DVT ppx: b/l SCDs <Kashmir MullinsEphraim - 01/12/19 13:19> - Attending Attestation The exam, history, and the medical decision-making described in the above note were completed with the assistance of the resident physician. I reviewed and agree with the findings presented. I attest that I had a [id number] encounter with the patient on the same day, and personally performed and documented my assessment and findings in the medical record. her fevers were most likely from atelectasis as they are gone now. she is clinically improving daily. unsure why her WBC is up but will follow cultures <Desirae Clark - 01/13/19 17:51> <Kashmir MullinsEphraim - Last Filed: 01/12/19 13:16> (3) Diabetic ulcer of heel Qualifiers: Diabetes mellitus type: type 2 Laterality: left Non-pressure ulcer stage: unspecified non-pressure ulcer stage Qualified Code(s): E11.621 - Type 2 diabetes mellitus with foot ulcer; L97.429 - Non-pressure chronic ulcer of left heel and midfoot with unspecified severity (8) Acute on chronic renal failure Qualifiers: Chronic kidney disease stage: stage 3 (moderate) (10) Diabetes mellitus with neuropathy Qualifiers: Diabetes mellitus type: type 2 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: with farm mechanic apprentice use Qualified Code(s): E11.40 - Type 2 diabetes mellitus with diabetic neuropathy, unspecified; Z79.4 - rn gastroenterology (current) use of insulin <Desirae Clark - Last Filed: 01/13/19 17:51> (3) Diabetic ulcer of heel Qualifiers: Diabetes mellitus type: type 2 Laterality: left Non-pressure ulcer stage: unspecified non-pressure ulcer stage Qualified Code(s): E11.621 - Type 2 diabetes mellitus with foot ulcer; L97.429 - Non-pressure chronic ulcer of left heel and midfoot with unspecified severity (8) Acute on chronic renal failure Qualifiers: Chronic kidney disease stage: stage 3 (moderate) (10) Diabetes mellitus with neuropathy Qualifiers: Diabetes mellitus type: type 2 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: with farm mechanic 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 use Qualified Code(s): E11.40 - Type 2 diabetes mellitus with diabetic neuropathy, unspecified; Z79.4 - rn gastroenterology (current) use of insulin <Ephraim Lambert - Last Filed: 01/12/19 13:16> (3) Diabetic ulcer of heel Qualifiers: Diabetes mellitus type: type 2 Laterality: left Non-pressure ulcer stage: unspecified non-pressure ulcer stage Qualified Code(s): E11.621 - Type 2 diabetes mellitus with foot ulcer; L97.429 - Non-pressure chronic ulcer of left heel and midfoot with unspecified severity (8) Acute on chronic renal failure Qualifiers: Chronic kidney disease stage: stage 3 (moderate) (10) Diabetes mellitus with neuropathy Qualifiers: Diabetes mellitus type: type 2 Diabetes mellitus intermediate insulin use: with farm mechanic apprentice use Qualified Code(s): E11.40 - Type 2 diabetes mellitus with diabetic neuropathy, unspecified; Z79.4 - rn gastroenterology (current) use of insulin <Desirae Clark - Last Filed: 01/13/19 17:51> (3) Diabetic ulcer of heel Qualifiers: Diabetes mellitus type: type 2 Laterality: left Non-pressure ulcer stage: unspecified non-pressure ulcer stage Qualified Code(s): E11.621 - Type 2 diabetes mellitus with foot ulcer; L97.429 - Non-pressure chronic ulcer of left heel and midfoot with unspecified severity (8) Acute on chronic renal failure Qualifiers: Chronic kidney disease stage: stage 3 (moderate) (10) Diabetes mellitus with neuropathy Qualifiers: Diabetes mellitus type: type 2 Diabetes mellitus intermediate insulin use: with farm mechanic apprentice use Qualified Code(s): E11.40 - Type 2 diabetes mellitus with diabetic neuropathy, unspecified; Z79.4 - rn gastroenterology (current) use of insulin
[2019-01-12] MEDS: Insulin NovoLOG Aspart Correctional Sugar Inj SQ SCH ×4 (08:29→20:20)
[2019-01-12] MEDS: Pregabalin 75 MG Capsule PO SCH ×2 (08:30→20:09)
[2019-01-12] MEDS: Collagenase Oint 30 GM Tube TOPICAL SCH (08:30)
[2019-01-12] MEDS: Senna/Docusate Sodium 8.6/50 MG Tablet PO SCH ×2 (08:30→20:21)
[2019-01-12] MEDS: Ascorbic Acid 500 MG Tablet PO SCH (08:30)
[2019-01-12] MEDS: Sodium Bicarbonate 650 MG Tablet PO SCH ×2 (08:30→20:09)
--- NOTE | 2019-01-12 11:24 | P.PNNP ---
Subjective Interval history: Patient was seen, no distress. Patient stated she is constipated. Patients renal function improved, Creatinine is 1.99, which is around her baseline. <Marylin Alejo - Last Filed: 01/12/19 11:20> Physical Exam Vital signs: Vital Signs 01/11/19 12:00 01/11/19 14:16 01/11/19 14:41 Temperature 97.9 F 100.7 F H 100.7 F H Pulse Rate 99 H 96 H 95 H Respiratory Rate 19 16 Blood Pressure 143/65 H 130/61 129/64 Pulse Oximetry 95 93 L 94 L 01/11/19 16:00 01/11/19 16:20 01/11/19 18:11 Temperature 100.7 F H 102.2 F H 100.1 F H Pulse Rate 97 H 97 H 93 H Respiratory Rate 18 17 16 Blood Pressure 129/64 134/63 129/62 Pulse Oximetry 96 94 L 93 L 01/11/19 18:12 01/11/19 18:32 01/11/19 20:00 Temperature 100.1 F H 97.9 F 99.1 F Pulse Rate 93 H 91 H 90 Respiratory Rate 16 17 20 Blood Pressure 129/62 137/60 142/64 H Pulse Oximetry 95 94 L 01/12/19 00:00 01/12/19 04:00 01/12/19 07:34 Temperature 98.2 F 98 F 99.1 F Pulse Rate 92 H 87 82 Respiratory Rate 18 20 16 Blood Pressure 156/64 H 132/68 148/67 H Pulse Oximetry 95 94 L 94 L 01/12/19 07:39 01/12/19 09:05 Temperature 99.1 F Pulse Rate 82 Respiratory Rate 16 Blood Pressure 148/67 H Pulse Oximetry 94 L 96 Intake & Output 01/11/19 01/12/19 01/12/19 18:59 06:59 18:59 Intake Total 1960 / 1960 1120 / 1120 Output Total 400 / 400 650 / 650 Balance 1560 / 1560 470 / 470 Weight 73.1 kg Intake: IV 600 / 600 Sodium Bicarbonate 8.4% Inj 75 600 / 600 MEQ In 1/2 Normal Saline Inj 1, 000 ML @ 42 mls/hr IV.CONT . Q24H [facility] Rx#:[id number] Oral 960 / 960 720 / 720 Intake (Blood Product) Amt 400 / 400 400 / 400 Rbc As-3 Leukoreduced Unit 400 / 400 [id number] Rbc As-3 Leukoreduced Unit 0 / 0 400 / 400 [id number] Output: Urine 400 / 400 650 / 650 Other: # Voids 2 # Incontinent Voids 3 Date of Last Bowel Movement 01/11/19 01/11/19 # Bowel Movements 1 2 Narrative: GENERAL: NAD HEAD: Normocephalic. Atraumatic. EYES: No scleral icterus. No injection or drainage. EOMI. NECK: Supple, trachea midline. No JVD or lymphadenopathy. CARDIOVASCULAR: Regular rate and rhythm without murmurs, gallops, or rubs. RESPIRATORY: Breath sounds equal bilaterally. No accessory muscle use. No wheezing. GASTROINTESTINAL: Abdomen soft, mild tenderness, nondistended. No guarding. MUSCULOSKELETAL: No cyanosis, or edema. BACK: Nontender without obvious deformity. - Urinary Catheter Management Indwelling Temp Sensing Catheter Cath placed during this visit: yes Reason for continuing: Other continuation reason Insertion date: 01/09/19 Insertion time: 08:30 <Marylin Alejo - Last Filed: 01/12/19 11:20> Vital signs: Vital Signs 01/11/19 14:41 01/11/19 16:00 01/11/19 16:20 Temperature 100.7 F H 100.7 F H 102.2 F H Pulse Rate 95 H 97 H 97 H Respiratory Rate 16 18 17 Blood Pressure 129/64 129/64 134/63 Pulse Oximetry 94 L 96 94 L 01/11/19 18:11 01/11/19 18:12 01/11/19 18:32 Temperature 100.1 F H 100.1 F H 97.9 F Pulse Rate 93 H 93 H 91 H Respiratory Rate 16 16 17 Blood Pressure 129/62 129/62 137/60 Pulse Oximetry 93 L 95 01/11/19 20:00 01/12/19 00:00 01/12/19 04:00 Temperature 99.1 F 98.2 F 98 F Pulse Rate 90 92 H 87 Respiratory Rate 20 18 20 Blood Pressure 142/64 H 156/64 H 132/68 Pulse Oximetry 94 L 95 94 L 01/12/19 07:34 01/12/19 07:39 01/12/19 08:00 Temperature 99.1 F 99.1 F Pulse Rate 82 82 84 Respiratory Rate 16 16 16 Blood Pressure 148/67 H 148/67 H Pulse Oximetry 94 L 94 L 01/12/19 09:05 01/12/19 14:00 Temperature 99.1 F Pulse Rate 79 Respiratory Rate 16 Blood Pressure 114/60 Pulse Oximetry 96 93 L Intake & Output 01/11/19 01/12/19 01/12/19 18:59 06:59 18:59 Intake Total 1960 / 1960 1120 / 1120 Output Total 400 / 400 650 / 650 Balance 1560 / 1560 470 / 470 Weight 73.1 kg Intake: IV 600 / 600 Sodium Bicarbonate 8.4% Inj 75 600 / 600 MEQ In 1/2 Normal Saline Inj 1, 000 ML @ 42 mls/hr IV.CONT . Q24H [facility] Rx#:[id number] Oral 960 / 960 720 / 720 Intake (Blood Product) Amt 400 / 400 400 / 400 Rbc As-3 Leukoreduced Unit 400 / 400 [id number] Rbc As-3 Leukoreduced Unit 0 / 0 400 / 400 [id number] Output: Urine 400 / 400 650 / 650 Other: # Voids 2 # Incontinent Voids 3 Date of Last Bowel Movement 01/11/19 01/11/19 01/12/19 # Bowel Movements 1 2 - Urinary Catheter Management Indwelling Temp Sensing Catheter Cath placed during this visit: no <Jarred Pan - Last Filed: 01/12/19 14:34> Assessment and Plan - Assessment (1) Acute on chronic renal failure Code(s): N17.9 - Acute kidney failure, unspecified; N18.9 - Chronic kidney disease, unspecified Status: Acute Qualifiers: Chronic kidney disease stage: stage 3 (moderate) Plan: Patient had UTI and was on Bactrim for 10 days which could have caused acute worsening. Baseline Creatinine around 1.7-1.8. Current creatinine is 1.99. Renal function appears to be improving. Patient on oral Sodium bicarbonate. Ultrasound of the kidney did not reveal any obstruction or hydronephrosis. Etiology of CKD likely due to diabetic nephropathy. Proteinuria on UA. Monitor fluid and electrolytes. Avoid nephrotoxic agents. (2) Diabetes mellitus with neuropathy Code(s): E11.40 - Type 2 diabetes mellitus with diabetic neuropathy, unspecified Status: Chronic Qualifiers: Diabetes mellitus type: type 2 Diabetes mellitus detention insulin use: with detention use Qualified Code(s): E11.40 - Type 2 diabetes mellitus with diabetic neuropathy, unspecified; Z79.4 - terminal supervisor (current) use of insulin Plan: Insulin coverage to maintain blood glucose levels between 140 and 180 while hospitalized. (3) Hypertension Code(s): I10 - Essential (primary) hypertension Status: Chronic Qualifiers: Hypertension type: essential hypertension Qualified Code(s): I10 - Essential (primary) hypertension Plan: On Losartan. Monitor BP. (4) Acute UTI Code(s): N39.0 - Urinary tract infection, site not specified Status: Acute Plan: Ceftriaxone stopped. 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 Consider switching to high intensity statin: Crestor 20 mg PO daily or Lipitor 80 mg PO daily. <Marylin Alejo - Last Filed: 01/12/19 11:20> - Assessment (1) Acute on chronic renal failure Code(s): N17.9 - Acute kidney failure, unspecified; N18.9 - Chronic kidney disease, unspecified Status: Acute Qualifiers: Chronic kidney disease stage: stage 3 (moderate) (2) Diabetes mellitus with neuropathy Code(s): E11.40 - Type 2 diabetes mellitus with diabetic neuropathy, unspecified Status: Chronic Qualifiers: Diabetes mellitus type: type 2 Diabetes mellitus detention insulin use: with lobsterman use Qualified Code(s): E11.40 - Type 2 diabetes mellitus with diabetic neuropathy, unspecified; Z79.4 - nursing home (current) use of insulin (3) Hypertension Code(s): I10 - Essential (primary) hypertension Status: Chronic Qualifiers: Hypertension type: essential hypertension Qualified Code(s): I10 - Essential (primary) hypertension (4) Acute UTI Code(s): N39.0 - Urinary tract infection, site not specified Status: Acute 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 Agree with above assessment and plan. She can be discharged from renal standpoint. <Jarred Pan - Last Filed: 01/12/19 14:34>
[2019-01-12] MEDS: Aspirin 325 MG Tablet PO SCH (12:07)
[2019-01-12] MEDS: Polyethylene Glycol 3350 17 GM Packet PO SCH (14:17)
--- NOTE | 2019-01-12 16:19 | P.PN ---
Physical Exam Vital signs: Vital Signs 01/11/19 16:20 01/11/19 18:11 01/11/19 18:12 Temperature 102.2 F H 100.1 F H 100.1 F H Pulse Rate 97 H 93 H 93 H Respiratory Rate 17 16 16 Blood Pressure 134/63 129/62 129/62 Pulse Oximetry 94 L 93 L 01/11/19 18:32 01/11/19 20:00 01/12/19 00:00 Temperature 97.9 F 99.1 F 98.2 F Pulse Rate 91 H 90 92 H Respiratory Rate 17 20 18 Blood Pressure 137/60 142/64 H 156/64 H Pulse Oximetry 95 94 L 95 01/12/19 04:00 01/12/19 07:34 01/12/19 08:00 Temperature 98 F 99.1 F Pulse Rate 87 82 84 Respiratory Rate 20 16 16 Blood Pressure 132/68 148/67 H Pulse Oximetry 94 L 94 L 01/12/19 09:05 01/12/19 14:00 01/12/19 15:30 Temperature 99.1 F 98.1 F Pulse Rate 79 75 Respiratory Rate 16 18 Blood Pressure 114/60 131/72 Pulse Oximetry 96 93 L 94 L Intake & Output 01/11/19 01/12/19 01/12/19 18:59 06:59 18:59 Intake Total 1960 / 1960 1120 / 1120 Output Total 400 / 400 650 / 650 Balance 1560 / 1560 470 / 470 Weight 73.1 kg Intake: IV 600 / 600 Sodium Bicarbonate 8.4% Inj 75 600 / 600 MEQ In 1/2 Normal Saline Inj 1, 000 ML @ 42 mls/hr IV.CONT . Q24H [facility] Rx#:[id number] Oral 960 / 960 720 / 720 Intake (Blood Product) Amt 400 / 400 400 / 400 Rbc As-3 Leukoreduced Unit 400 / 400 [id number] Rbc As-3 Leukoreduced Unit 0 / 0 400 / 400 [id number] Output: Urine 400 / 400 650 / 650 Other: # Voids 2 # Incontinent Voids 3 Date of Last Bowel Movement 01/11/19 01/11/19 01/12/19 # Bowel Movements 1 2 - Urinary Catheter Management Indwelling Temp Sensing Catheter Cath placed during this visit: yes Reason for continuing: Other continuation reason Insertion date: 01/09/19 Insertion time: 08:30 Results - Labs CBC & Chem 7: 01/12/19 01:20 01/12/19 01:20 Laboratory Results - last 24 hr 01/11/19 01/11/19 01/11/19 12:17 17:35 21:06 WBC RBC Hgb Hct MCV MCH MCHC RDW Plt Count MPV Prelim Diff (Auto) Neut % (Auto) Lymph % (Auto) [place] % (Auto) Eos % (Auto) Baso % (Auto) Neut # (Auto) Lymph # (Auto) [place] # (Auto) Eos # (Auto) Baso # (Auto) WBC Differential Diff Scan Differential Comment Platelet Estimate Platelet Morphology Keratocytes Sodium Potassium Chloride Carbon Dioxide Anion Gap BUN Creatinine Estimated GFR POC Glucose 209 H 215 H Random Glucose Calcium Phosphorus Albumin Urine Color Urine Clarity Urine pH Ur Specific [place] Urine Protein Urine Glucose (UA) Urine Ketones Urine Occult Blood Urine Nitrate Urine Bilirubin Urine Urobilinogen Ur Leukocyte Esterase Urine RBC Urine WBC Urine WBC Clumps Ur Squamous Epith Cells Urine Bacteria Micro UA Comment Ur Microscopic Review Urine Culture Comments Blood Type A Positive Antibody Screen Negative MTS Gel Crossmatch See Detail 01/11/19 01/12/19 01/12/19 21:35 01:20 01:20 WBC 17.7 H RBC 2.77 L Hgb 9.5 L D Hct 25.9 L MCV 93.3 D MCH 34.3 H MCHC 36.8 H RDW 16.7 Plt Count 367 MPV 7.2 Prelim Diff (Auto) Slide review pending Neut % (Auto) 73.5 H Lymph % (Auto) 15.1 [place] % (Auto) 9.2 H Eos % (Auto) 1.4 Baso % (Auto) 0.8 Neut # (Auto) 13.0 H Lymph # (Auto) 2.7 [place] # (Auto) 1.6 H Eos # (Auto) 0.3 Baso # (Auto) 0.1 WBC Differential . Diff Scan Auto diff confirmed Differential Comment . Platelet Estimate Normal Platelet Morphology Normal Keratocytes Occ H Sodium 142 Potassium 4.6 Chloride 112 H Carbon Dioxide 23.2 Anion Gap 7 BUN 51 H Creatinine 1.99 H Estimated GFR 25 L POC Glucose Random Glucose 145 H Calcium 8.7 Phosphorus 2.4 L Albumin 2.4 L Urine Color Yellow Urine Clarity Turbid H Urine pH 6.0 Ur Specific [place] 1.005 Urine Protein 30 H Urine Glucose (UA) Negative Urine Ketones Negative Urine Occult Blood Moderate H Urine Nitrate Negative Urine Bilirubin Negative Urine Urobilinogen Less than 2 Ur Leukocyte Esterase Large H Urine RBC 16 H Urine WBC Urine WBC Clumps Many H Ur Squamous Epith Cells 1 Urine Bacteria Many H Micro UA Comment Culture indicated Ur Microscopic Review Not Reportable Urine Culture Comments Culture indicated Blood Type Antibody Screen MTS Gel Crossmatch 01/12/19 01/12/19 08:22 11:30 WBC RBC Hgb Hct MCV MCH MCHC RDW Plt Count MPV Prelim Diff (Auto) Neut % (Auto) Lymph % (Auto) [place] % (Auto) Eos % (Auto) Baso % (Auto) Neut # (Auto) Lymph # (Auto) [place] # (Auto) Eos # (Auto) Baso # (Auto) WBC Differential Diff Scan Differential Comment Platelet Estimate Platelet Morphology Keratocytes Sodium Potassium Chloride Carbon Dioxide Anion Gap BUN Creatinine Estimated GFR POC Glucose 200 H 227 H Random Glucose Calcium Phosphorus Albumin Urine Color Urine Clarity Urine pH Ur Specific [place] Urine Protein Urine Glucose (UA) Urine Ketones Urine Occult Blood Urine Nitrate Urine Bilirubin Urine Urobilinogen Ur Leukocyte Esterase Urine RBC Urine WBC Urine WBC Clumps Ur Squamous Epith Cells Urine Bacteria Micro UA Comment Ur Microscopic Review Urine Culture Comments Blood Type Antibody Screen MTS Gel Crossmatch Microbiology 01/11/19 21:35 Clean Catch Urine Urine Culture - Preliminary gram negative rods Group D Enterococcus 01/11/19 10:57 Blood - Peripheral Aerobic Blood Culture - Preliminary No growth in 1 day 01/11/19 10:57 Blood - Peripheral Anaerobic Blood Culture - Preliminary No growth in 1 day 01/11/19 10:42 Blood - Peripheral Aerobic Blood Culture - Preliminary No growth in 1 day 01/11/19 10:42 Blood - Peripheral Anaerobic Blood Culture - Preliminary No growth in 1 day 01/07/19 16:40 Blood - Peripheral Aerobic Blood Culture - Final No growth in 5 days 01/07/19 16:40 Blood - Peripheral Anaerobic Blood Culture - Final No growth in 5 days Assessment and Plan - Assessment (1) Diabetic ulcer of heel Code(s): E11.621 - Type 2 diabetes mellitus with foot ulcer; L97.409 - Non- pressure chronic ulcer of unspecified heel and midfoot with unspecified severity Status: Chronic - Plan xray Left heel with no OM PVD OK to d/c per Podiatry f/u with Dr Babcock in 1 week Dressing changes daily left heel with santyl and DSD. (1) Diabetic ulcer of heel Qualifiers: Diabetes mellitus type: type 2 Laterality: left Non-pressure ulcer stage: unspecified non-pressure ulcer stage Qualified Code(s): E11.621 - Type 2 diabetes mellitus with foot ulcer; L97.429 - Non-pressure chronic ulcer of left heel and midfoot with unspecified severity
[2019-01-13] MEDS: Aspirin 325 MG Tablet PO SCH (08:11)
[2019-01-13] MEDS: Pregabalin 75 MG Capsule PO SCH ×2 (08:12→20:49)
[2019-01-13] MEDS: Ascorbic Acid 500 MG Tablet PO SCH (08:12)
[2019-01-13] MEDS: Senna/Docusate Sodium 8.6/50 MG Tablet PO SCH ×2 (08:12→20:49)
[2019-01-13] MEDS: Sodium Bicarbonate 650 MG Tablet PO SCH ×2 (08:12→20:49)
[2019-01-13] MEDS: Polyethylene Glycol 3350 17 GM Packet PO SCH (08:12)
[2019-01-13] MEDS: Insulin NovoLOG Aspart Correctional Sugar Inj SQ SCH ×5 (08:13→20:48)
[2019-01-13] MEDS: Collagenase Oint 30 GM Tube TOPICAL SCH (08:13)
--- NOTE | 2019-01-13 08:14 | P.PNFP ---
Subjective Interval history: No acute events overnight. Afebrile, vitals stable. Patient seen and examined this AM. Patient reports she is feeling well. Specifically denies subjective fevers or chills, dyspnea, cough, CP, abdl pain. Reports her constipation is improved and she feels relieved with this. Denies drainage from surgical sites. Denies new urinary symptoms. <BebeshaylaEphraim Becker - 01/13/19 09:01> Results - Labs Result diagrams: 01/13/19 10:47 01/12/19 01:20 <EduardoDesirae M - 01/13/19 17:52> Abnormal lab results 01/12/19 01/13/19 01/13/19 Range/Units 20:15 07:48 10:47 WBC 12.8 H (4.0-11.0) th/mm3 RBC 3.21 L (4.00-5.30) mil/mm3 Hgb 10.1 L (11.6-15.3) gm/dL Hct 30.8 L (35.0-46.0) % [place] % (Auto) 8.8 H (0.0-8.0) % Eos % (Auto) 8.0 H (0.0-4.0) % Neut # (Auto) 8.0 H (1.8-7.7) th/mm3 [place] # (Auto) 1.1 H (0.0-0.9) th/mm3 Eos # (Auto) 1.0 H (0.0-0.4) th/mm3 POC Glucose 208 H 131 H (68-110) mg/dl 01/13/19 01/13/19 Range/Units 12:12 16:37 WBC (4.0-11.0) th/mm3 RBC (4.00-5.30) mil/mm3 Hgb (11.6-15.3) gm/dL Hct (35.0-46.0) % [place] % (Auto) (0.0-8.0) % Eos % (Auto) (0.0-4.0) % Neut # (Auto) (1.8-7.7) th/mm3 [place] # (Auto) (0.0-0.9) th/mm3 Eos # (Auto) (0.0-0.4) th/mm3 POC Glucose 138 H 168 H (68-110) mg/dl Short CBC 01/13/19 Range/Units 10:47 WBC 12.8 H (4.0-11.0) th/mm3 Hgb 10.1 L (11.6-15.3) gm/dL Hct 30.8 L (35.0-46.0) % Plt Count 432 (150-450) th/mm3 <Desirae Clark - 01/13/19 17:52> Abnormal lab results 01/12/19 01/12/19 01/12/19 Range/Units 08:22 11:30 17:40 POC Glucose 200 H 227 H 140 H (68-110) mg/dl 01/12/19 01/13/19 Range/Units 20:15 07:48 POC Glucose 208 H 131 H (68-110) mg/dl <Bebeshaylafilemon SusannaAyakaEphraim - 01/13/19 08:14> Physical Exam Vital signs: Vital Signs 01/12/19 20:00 01/12/19 20:22 01/12/19 23:48 Temperature 98.7 F Pulse Rate 72 71 61 Respiratory Rate 18 Blood Pressure 118/56 L Pulse Oximetry 96 01/13/19 00:00 01/13/19 00:46 01/13/19 03:53 Temperature 98.1 F 98.8 F Pulse Rate 64 69 70 Respiratory Rate 18 18 Blood Pressure 115/58 L 126/60 Pulse Oximetry 96 96 01/13/19 03:57 01/13/19 08:00 Temperature 97.6 F Pulse Rate 77 78 Respiratory Rate 17 Blood Pressure 177/68 H Pulse Oximetry 97 Intake & Output 01/12/19 01/13/19 01/13/19 18:59 06:59 18:59 Intake Total 250 / 250 Balance 250 / 250 Weight 69.3 kg Intake: IV 250 / 250 Other: Mode Setting Left Groin Continuous # Voids 8 Date of Last Bowel Movement 01/12/19 01/12/19 # Bowel Movements 3 <Desirae Clark - 01/13/19 17:52> Vital Signs 01/12/19 09:05 01/12/19 14:00 01/12/19 15:30 Temperature 99.1 F 98.1 F Pulse Rate 79 75 Respiratory Rate 16 18 Blood Pressure 114/60 131/72 Pulse Oximetry 96 93 L 94 L 02/15/19 20:00 01/12/19 20:22 01/12/19 23:48 Temperature 98.7 F Pulse Rate 72 71 61 Respiratory Rate 18 Blood Pressure 118/56 L Pulse Oximetry 96 01/13/19 00:00 01/13/19 00:46 01/13/19 03:53 Temperature 98.1 F 98.8 F Pulse Rate 64 69 70 Respiratory Rate 18 18 Blood Pressure 115/58 L 126/60 Pulse Oximetry 96 96 01/13/19 03:57 Temperature Pulse Rate 77 Respiratory Rate Blood Pressure Pulse Oximetry Intake & Output 01/12/19 01/13/19 01/13/19 18:59 06:59 18:59 Intake Total 250 / 250 Balance 250 / 250 Weight 69.3 kg Intake: IV 250 / 250 Other: # Voids 8 Date of Last Bowel Movement 01/12/19 01/12/19 # Bowel Movements 3 <Kashmir Mullins,Ephraim - 01/13/19 08:14> Narrative: GENERAL: 68 year old female lying flat in bed in NAD SKIN: Warm and dry. Minor venous stasis skin changes on LLE below the knee. LLE incision c/d/i. HEAD: Normocephalic. Atraumatic. MMM. Oropharynx clear. EYES: No scleral icterus. No injection or drainage. EOMI. NECK: Supple, trachea midline. No JVD or lymphadenopathy. CARDIOVASCULAR: Regular rate and rhythm without murmurs, gallops, or rubs. Left DP and PT pulses are 2+ RESPIRATORY: Breath sounds equal bilaterally. No accessory muscle use. No increased WOB. Bibasilar rales present. No wheezing. GASTROINTESTINAL: Abdomen soft, mild to moderate tenderness throughout, nondistended. No guarding. No rebound tenderness. MUSCULOSKELETAL: No cyanosis, or edema. Left medial heel ulcer is clean and dry with 2cm x 2cm eschar, does not appear to have good granulation tissue at the base; surrounding skin does look to be improving, no necrotic tissue is present. No drainage, no surrounding erythema. BACK: Nontender without obvious deformity. <Kashmir Mullins,Ephraim - 01/13/19 09:01> - Urinary Catheter Management Indwelling Temp Sensing Catheter Cath placed during this visit: no <Desirae Clark - 01/13/19 17:52> yes <Kandavanam R3,Ephraim - 01/13/19 10:36> Reason for continuing: Other continuation reason <Kandavanam R3,Ephraim - 01/13 08:14> Insertion date: 01/09/19 <Kandavanam R3,Ephraim - 01/13/19 08:14> Insertion time: 08:30 <Kandavanam R3,Ephraim - 01/13/19 08:14> Assessment and Plan - Assessment (1) Anemia Code(s): D64.9 - Anemia, unspecified Status: Chronic (2) Peripheral artery disease Code(s): I73.9 - Peripheral vascular disease, unspecified Status: Chronic (3) Diabetic ulcer of heel Code(s): E11.621 - Type 2 diabetes mellitus with foot ulcer; L97.409 - Non- pressure chronic ulcer of unspecified heel and midfoot with unspecified severity Status: Chronic (4) Fever Code(s): R50.9 - Fever, unspecified Status: Resolved (5) Hypoxia Code(s): R09.02 - Hypoxemia Status: Resolved (6) Methemoglobinemia Code(s): D74.9 - Methemoglobinemia, unspecified Status: Resolved (7) Complicated UTI (urinary tract infection) Code(s): N39.0 - Urinary tract infection, site not specified Status: Acute (8) Acute on chronic renal failure Code(s): N17.9 - Acute kidney failure, unspecified; N18.9 - Chronic kidney disease, unspecified Status: Acute (9) Generalized weakness Code(s): R53.1 - Weakness Status: Chronic (10) Diabetes mellitus with neuropathy Code(s): E11.40 - Type 2 diabetes mellitus with diabetic neuropathy, unspecified Status: Chronic (11) Hyperkalemia Code(s): E87.5 - Hyperkalemia Status: Resolved (12) Hypertension Code(s): I10 - Essential (primary) hypertension Status: Chronic (13) Nutrition, metabolism, and development symptoms Code(s): R63.8 - Other symptoms and signs concerning food and fluid intake Status: Acute <Desirae Clark - 01/13/19 17:52> (1) Anemia Code(s): D64.9 - Anemia, unspecified Status: Chronic (2) Peripheral artery disease Code(s): I73.9 - Peripheral vascular disease, unspecified Status: Chronic (3) Diabetic ulcer of heel Code(s): E11.621 - Type 2 diabetes mellitus with foot ulcer; L97.409 - Non- pressure chronic ulcer of unspecified heel and midfoot with unspecified severity Status: Chronic (4) Fever Code(s): R50.9 - Fever, unspecified Status: Resolved (5) Hypoxia Code(s): R09.02 - Hypoxemia Status: Resolved (6) Methemoglobinemia Code(s): D74.9 - Methemoglobinemia, unspecified Status: Resolved (7) Complicated UTI (urinary tract infection) Code(s): N39.0 - Urinary tract infection, site not specified Status: Acute (8) Acute on chronic renal failure Code(s): N17.9 - Acute kidney failure, unspecified; N18.9 - Chronic kidney disease, unspecified Status: Acute (9) Generalized weakness Code(s): R53.1 - Weakness Status: Chronic (10) Diabetes mellitus with neuropathy Code(s): E11.40 - Type 2 diabetes mellitus with diabetic neuropathy, unspecified Status: Chronic (11) Hyperkalemia Code(s): E87.5 - Hyperkalemia Status: Resolved (12) Hypertension Code(s): I10 - Essential (primary) hypertension Status: Chronic (13) Nutrition, metabolism, and development symptoms Code(s): R63.8 - Other symptoms and signs concerning food and fluid intake Status: Acute <Kashmir ,Ephraim - 01/13/19 10:34> - Assessment and Plan 68 year old female with history of PAD s/p bypass in RLE, chronic left medial heel ulcer, T2DM, diabetic peripheral neuropathy, anemia, recurrent UTIs and CKD presented meeting sepsis criteria presumed due to UTI. Additionally, pt presented with hypoxia and O2 sats in the 80s, macrocytic anemia, methemoglobinemia 9.6%, acute on chronic renal failure, and chronic diabetic left heel ulcer. Fever -Fevers resolved, patient remains clinically without symptoms -Continue to trend WBC -Exam significant for bibasilar rales likely atelectasis -CXR 01/10 no acute cardiopulmonary disease -Repeat blood cultures are NG1D -UCx clean catch with group D enterococcus, further ID and susceptibility to follow --Will await sensitivities prior to consideration for treatment as the patient clinically appears without new urinary symptoms, could be treated with oral medication pending sensitivities -[place] catheter removed 01/10 -Tylenol prn -IS to bedside Macrocytic anemia -Hgb 9.5 s/p 2 units PRBCs -Not suspecting GI bleed at this time, continue to trend H/H, consider further workup if continues to decline -Iron profile suggesting anemia of chronic disease -B12 at the upper limits of normal -Pt states she is non-compliant with iron sulfate treatment due to constipation Hypoxia, dizziness and weakness -Resolved -Consider secondary to methemoglobinemia -O2 sats remain appropriate on supplemental oxygen -Tachycardia resolved -CXR negative -Continue supplemental O2 to maintain O2 sats > 92%, wean as tolerated -Appreciate PT Sepsis 2/2 UTI -Urine culture from 01/07 growing 10-50,000 cfus mixed gram positive bj -Repeat UA and urine culture as above -Discontinued Rocephin -Renal/bladder US w/no evidence of hydronephrosis, but posterior bladder wall slightly thickened Recurrent UTIs -Plan as above -Consider Urology consult or UroGyn consult for further evaluation as an outpatient Methemoglobinemia -Repeat ABG is improved s/p Methylene Blue 50 mg IV -G6PD just over ULN -Stop potential offending drugs: pt was recently on Bactrim (Sulfanomides) and on ASA --Holding home ASA 325mg Acute on chronic renal failure -Cr 2.86 on admission with baseline since March of Cr 1.74 and BUN 64 -Consult nephrology--appreciate recs --IVF discontinued, started on sodium bicarb -Continue to monitor renal indices Diabetes type 2 -A1C on 12/07/18 was 5.4 -Accuchecks -Low SSI Hypertension -Continue Losartan PAD with LLE Chronic diabetic ulcer -Consult Dr. Mauricio, vascular surgery--appreciate recs --s/p left femoral popliteal bypass surgery on 01/09 --Started on aspirin daily --Transition to medium/high intensity statin -Continue home [place] 10/325 mg q6h prn pain -Morphine or Dilaudid prn -Foot x-ray wnl -OOB to chair TID, continue PT Peripheral neuropathy 2/2 diabetes -Continue home Lyrica 75 mg daily Hyperkalemia -Resolved -Likely due to metabolic acidosis and acute kidney injury -EKG on admission in NSR Constipation - Resolved - Constipation protocol - Continue collin-colace 2 tabs po bid FEN/GI/PPx: -Fluids: per PO -Electrolytes: Continue to monitor -Nutrition: heart healthy diet -GI ppx: continue home Protonix 40 mg PO daily -DVT ppx: b/l SCDs <Ephraim Lambert - 01/13/19 10:36> - Attending Attestation The exam, history, and the medical decision-making described in the above note were completed with the assistance of the resident physician. I reviewed and agree with the findings presented. I attest that I had a [id number] encounter with the patient on the same day, and personally performed and documented my assessment and findings in the medical record. she is improving and hope for d/c tomorrow <Desirae Clark - 01/13/19 17:52> <Ayaka Lambertsh - Last Filed: 01/13/19 10:34> (3) Diabetic ulcer of heel Qualifiers: Diabetes mellitus type: type 2 Laterality: left Non-pressure ulcer stage: unspecified non-pressure ulcer stage Qualified Code(s): E11.621 - Type 2 diabetes mellitus with foot ulcer; L97.429 - Non-pressure chronic ulcer of left heel and midfoot with unspecified severity (8) Acute on chronic renal failure Qualifiers: Chronic kidney disease stage: stage 3 (moderate) (10) Diabetes mellitus with neuropathy Qualifiers: Diabetes mellitus type: type 2 Diabetes mellitus custodial insulin use: with long distance operator use Qualified Code(s): E11.40 - Type 2 diabetes mellitus with diabetic neuropathy, unspecified; Z79.4 - bed bug exterminator (current) use of insulin <Desirae Clark - Last Filed: 01/13/19 17:52> (3) Diabetic ulcer of heel Qualifiers: Diabetes mellitus type: type 2 Laterality: left Non-pressure ulcer stage: unspecified non-pressure ulcer stage Qualified Code(s): E11.621 - Type 2 diabetes mellitus with foot ulcer; L97.429 - Non-pressure chronic ulcer of left heel and midfoot with unspecified severity (8) Acute on chronic renal failure Qualifiers: Chronic kidney disease stage: stage 3 (moderate) (10) Diabetes mellitus with neuropathy Qualifiers: Diabetes mellitus type: type 2 Diabetes mellitus long distance operator insulin use: with long distance operator use Qualified Code(s): E11.40 - Type 2 diabetes mellitus with diabetic neuropathy, unspecified; Z79.4 - bed bug exterminator (current) use of insulin <Ephraim Lambert - Last Filed: 01/13/19 10:34> (3) Diabetic ulcer of heel Qualifiers: Diabetes mellitus type: type 2 Laterality: left Non-pressure ulcer stage: unspecified non-pressure ulcer stage Qualified Code(s): E11.621 - Type 2 diabetes mellitus with foot ulcer; L97.429 - Non-pressure chronic ulcer of left heel and midfoot with unspecified severity (8) Acute on chronic renal failure Qualifiers: Chronic kidney disease stage: stage 3 (moderate) (10) Diabetes mellitus with neuropathy Qualifiers: Diabetes mellitus type: type 2 Diabetes mellitus long distance operator insulin use: with long distance operator use Qualified Code(s): E11.40 - Type 2 diabetes mellitus with diabetic neuropathy, unspecified; Z79.4 - residential (current) use of insulin <Desirae Clark - Last Filed: 01/13/19 17:52> (3) Diabetic ulcer of heel Qualifiers: Diabetes mellitus type: type 2 Laterality: left Non-pressure ulcer stage: unspecified non-pressure ulcer stage Qualified Code(s): E11.621 - Type 2 diabetes mellitus with foot ulcer; L97.429 - Non-pressure chronic ulcer of left heel and midfoot with unspecified severity (8) Acute on chronic renal failure Qualifiers: Chronic kidney disease stage: stage 3 (moderate) (10) Diabetes mellitus with neuropathy Qualifiers: Diabetes mellitus type: type 2 Diabetes mellitus long distance operator insulin use: with long distance operator use Qualified Code(s): E11.40 - Type 2 diabetes mellitus with diabetic neuropathy, unspecified; Z79.4 - bed bug exterminator (current) use of insulin
[2019-01-13] MEDS ORDERED: Morphine Inj 4 MG/ML Vial IV.PUSH PRN (10:21)
[2019-01-13 11:42] LABS: Baso # (Auto) 0.1 th/mm3 (0.0-0.2); Baso % (Auto) 1.1 % (0.0-2.0); Hematocrit 30.8 % (35.0-46.0); Hemoglobin 10.1 gm/dL (11.6-15.3); Lymph # (Auto) 2.5 th/mm3 (1.0-4.8); Lymph % (Auto) 19.7 % (9.0-44.0); Mean Corpuscular HGB Conc 32.9 % (32.0-36.0); Mean Corpuscular Hemoglobin 31.5 pg (27.0-34.0); Mean Corpuscular Volume 95.9 fL (80.0-100.0); Mean Platelet Volume 7.8 fL (7.0-11.0); Mono # (Auto) 1.1 th/mm3 (0.0-0.9); Mono % (Auto) 8.8 % (0.0-8.0); Neut % (Auto) 62.4 % (16.0-70.0); Platelet Count 432 th/mm3 (150-450); Red Blood Count 3.21 mil/mm3 (4.00-5.30); White Blood Count 12.8 th/mm3 (4.0-11.0)
--- NOTE | 2019-01-13 21:57 | P.PNNP ---
Subjective Interval history: Patient seen in the afternoon, alert, no SOB, not in distress. Physical Exam Vital signs: Vital Signs 01/12/19 23:48 01/13/19 00:00 01/13/19 00:46 Temperature 98.1 F Pulse Rate 61 64 69 Respiratory Rate 18 Blood Pressure 115/58 L Pulse Oximetry 96 01/13/19 03:53 01/13/19 03:57 01/13/19 08:00 Temperature 98.8 F 97.6 F Pulse Rate 70 77 78 Respiratory Rate 18 17 Blood Pressure 126/60 177/68 H Pulse Oximetry 96 97 01/13/19 12:00 01/13/19 16:00 Temperature 97.7 F 98.4 F Pulse Rate 78 77 Respiratory Rate 16 17 Blood Pressure 158/66 H 129/60 Pulse Oximetry 95 95 Intake & Output 01/13/19 01/13/19 01/14/19 06:59 18:59 06:59 Output Total 820 / 820 Balance -820 / -820 Weight 69.3 kg Output: Urine 820 / 820 Other: Mode Setting Left Groin Continuous # Voids 8 Date of Last Bowel Movement 01/12/19 01/13/19 # Bowel Movements 3 2 Narrative: GENERAL: 68 year old female lying flat in bed in NAD SKIN: Warm and dry. Minor venous stasis skin changes on LLE below the knee. LLE incision c/d/i. HEAD: Normocephalic. Atraumatic. MMM. Oropharynx clear. EYES: No scleral icterus. No injection or drainage. EOMI. NECK: Supple, trachea midline. No JVD or lymphadenopathy. CARDIOVASCULAR: Regular rate and rhythm without murmurs, gallops, or rubs. Left DP and PT pulses are 2+ RESPIRATORY: Breath sounds equal bilaterally. No accessory muscle use. No increased WOB. Bibasilar rales present. No wheezing. GASTROINTESTINAL: Abdomen soft, mild to moderate tenderness throughout, nondistended. No guarding. No rebound tenderness. MUSCULOSKELETAL: No cyanosis, or edema. Left medial heel ulcer is clean and dry with 2cm x 2cm eschar, does not appear to have good granulation tissue at the base; surrounding skin does look to be improving, no necrotic tissue is present. No drainage, no surrounding erythema. BACK: Nontender without obvious deformity. - Urinary Catheter Management Indwelling Temp Sensing Catheter Cath placed during this visit: yes Reason for continuing: Other continuation reason Insertion date: 01/09/19 Insertion time: 08:30 Assessment and Plan - Assessment (1) Acute on chronic renal failure Code(s): N17.9 - Acute kidney failure, unspecified; N18.9 - Chronic kidney disease, unspecified Status: Acute Qualifiers: Chronic kidney disease stage: stage 3 (moderate) Plan: Patient had UTI and was on Bactrim for 10 days which could have caused acute worsening. Baseline Creatinine around 1.7-1.8. Current creatinine is 1.99. Renal function appears to be improving. Patient on oral Sodium bicarbonate. Ultrasound of the kidney did not reveal any obstruction or hydronephrosis. Etiology of CKD likely due to diabetic nephropathy. Proteinuria on UA. Monitor fluid and electrolytes. Avoid nephrotoxic agents. Creatinine is improving and now 1.9, getting close to her baseline. (2) Diabetes mellitus with neuropathy Code(s): E11.40 - Type 2 diabetes mellitus with diabetic neuropathy, unspecified Status: Chronic Qualifiers: Diabetes mellitus type: type 2 Diabetes mellitus intermediate school teacher insulin use: with intermediate school teacher use Qualified Code(s): E11.40 - Type 2 diabetes mellitus with diabetic neuropathy, unspecified; Z79.4 - exterminator termite (current) use of insulin Plan: Insulin coverage to maintain blood glucose levels between 140 and 180 while hospitalized. (3) Hypertension Code(s): I10 - Essential (primary) hypertension Status: Chronic Qualifiers: Hypertension type: essential hypertension Qualified Code(s): I10 - Essential (primary) hypertension Plan: On Losartan. Monitor BP. (4) Acute UTI Code(s): N39.0 - Urinary tract infection, site not specified Status: Acute Plan: Ceftriaxone stopped. 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 Consider switching to high intensity statin: Crestor 20 mg PO daily or Lipitor 80 mg PO daily.
--- NOTE | 2019-01-14 08:14 | P.PNFP ---
Subjective Interval history: Febrile overnight to 100.5F. The patient reports increased dysuria now and some urinary frequency. States she otherwise feels ok and is eager to continue with physical therapy. States her pain is controlled. Constipation has resolved. Specifically denies CP, dyspnea, cough, abdl pain, drainage from incision site. <Ephraim Lambert - 01/14/19 08:46> Results - Labs Result diagrams: 01/14/19 06:58 01/12/19 01:20 <EduardoDesirae Britt - 01/14/19 09:49> Abnormal lab results 01/13/19 01/13/19 01/13/19 Range/Units 10:47 12:12 16:37 WBC 12.8 H (4.0-11.0) th/mm3 RBC 3.21 L (4.00-5.30) mil/mm3 Hgb 10.1 L (11.6-15.3) gm/dL Hct 30.8 L (35.0-46.0) % [place] % (Auto) 8.8 H (0.0-8.0) % Eos % (Auto) 8.0 H (0.0-4.0) % Neut # (Auto) 8.0 H (1.8-7.7) th/mm3 [place] # (Auto) 1.1 H (0.0-0.9) th/mm3 Eos # (Auto) 1.0 H (0.0-0.4) th/mm3 POC Glucose 138 H 168 H (68-110) mg/dl 01/13/19 01/14/19 01/14/19 Range/Units 20:46 06:58 07:35 WBC 11.4 H (4.0-11.0) th/mm3 RBC 3.00 L (4.00-5.30) mil/mm3 Hgb 9.3 L (11.6-15.3) gm/dL Hct 28.8 L (35.0-46.0) % [place] % (Auto) 9.5 H (0.0-8.0) % Eos % (Auto) 7.6 H (0.0-4.0) % Neut # (Auto) (1.8-7.7) th/mm3 [place] # (Auto) 1.1 H (0.0-0.9) th/mm3 Eos # (Auto) 0.9 H (0.0-0.4) th/mm3 POC Glucose 224 H 121 H (68-110) mg/dl Short CBC 01/13/19 01/14/19 Range/Units 10:47 06:58 WBC 12.8 H 11.4 H (4.0-11.0) th/mm3 Hgb 10.1 L 9.3 L (11.6-15.3) gm/dL Hct 30.8 L 28.8 L (35.0-46.0) % Plt Count 432 399 (150-450) th/mm3 <Desirae Clark - 01/14/19 09:49> Abnormal lab results 01/13/19 01/13/19 01/13/19 Range/Units 10:47 12:12 16:37 WBC 12.8 H (4.0-11.0) th/mm3 RBC 3.21 L (4.00-5.30) mil/mm3 Hgb 10.1 L (11.6-15.3) gm/dL Hct 30.8 L (35.0-46.0) % [place] % (Auto) 8.8 H (0.0-8.0) % Eos % (Auto) 8.0 H (0.0-4.0) % Neut # (Auto) 8.0 H (1.8-7.7) th/mm3 [place] # (Auto) 1.1 H (0.0-0.9) th/mm3 Eos # (Auto) 1.0 H (0.0-0.4) th/mm3 POC Glucose 138 H 168 H (68-110) mg/dl 01/13/19 01/14/19 Range/Units 20:46 07:35 WBC (4.0-11.0) th/mm3 RBC (4.00-5.30) mil/mm3 Hgb (11.6-15.3) gm/dL Hct (35.0-46.0) % [place] % (Auto) (0.0-8.0) % Eos % (Auto) (0.0-4.0) % Neut # (Auto) (1.8-7.7) th/mm3 [place] # (Auto) (0.0-0.9) th/mm3 Eos # (Auto) (0.0-0.4) th/mm3 POC Glucose 224 H 121 H (68-110) mg/dl Short CBC 01/13/19 Range/Units 10:47 WBC 12.8 H (4.0-11.0) th/mm3 Hgb 10.1 L (11.6-15.3) gm/dL Hct 30.8 L (35.0-46.0) % Plt Count 432 (150-450) th/mm3 <Ephraim Lambert - 01/14/19 08:14> Physical Exam Vital signs: Vital Signs 01/13/19 12:00 01/13/19 16:00 01/13/19 20:00 Temperature 97.7 F 98.4 F 98.2 F Pulse Rate 78 77 104 H Respiratory Rate 16 17 18 Blood Pressure 158/66 H 129/60 158/113 H Pulse Oximetry 95 95 96 01/13/19 21:41 01/13/19 23:55 01/14/19 00:00 Temperature 98.9 F Pulse Rate 70 82 Respiratory Rate 18 Blood Pressure 131/60 147/71 H Pulse Oximetry 97 01/14/19 04:00 Temperature 100.5 F H Pulse Rate 80 Respiratory Rate 18 Blood Pressure 114/55 L Pulse Oximetry 94 L Intake & Output 01/13/19 01/14/19 01/14/19 18:59 06:59 18:59 Intake Total 240 / 240 Output Total 820 / 820 Balance -820 / -820 240 / 240 Weight 69.3 kg Intake: Oral 240 / 240 Output: Urine 820 / 820 Other: Mode Setting Left Groin Continuous Continuous # Voids 3 Date of Last Bowel Movement 01/13/19 # Bowel Movements 2 <Desirae Clark - 01/14/19 09:49> Vital Signs 01/13/19 12:00 01/13/19 16:00 01/13/19 20:00 Temperature 97.7 F 98.4 F 98.2 F Pulse Rate 78 77 104 H Respiratory Rate 16 17 18 Blood Pressure 158/66 H 129/60 158/113 H Pulse Oximetry 95 95 96 01/13/19 21:41 01/13/19 23:55 01/14/19 00:00 Temperature 98.9 F Pulse Rate 70 82 Respiratory Rate 18 Blood Pressure 131/60 147/71 H Pulse Oximetry 97 01/14/19 04:00 Temperature 100.5 F H Pulse Rate 80 Respiratory Rate 18 Blood Pressure 114/55 L Pulse Oximetry 94 L Intake & Output 01/13/19 01/14/19 01/14/19 18:59 06:59 18:59 Intake Total 240 / 240 Output Total 820 / 820 Balance -820 / -820 240 / 240 Weight 69.3 kg Intake: Oral 240 / 240 Output: Urine 820 / 820 Other: Mode Setting Left Groin Continuous Continuous # Voids 3 Date of Last Bowel Movement 01/13/19 # Bowel Movements 2 <Kandavanam R3,Ephraim - 01/14/19 08:14> Narrative: GENERAL: 68 year old female lying flat in bed in [facility] SKIN: Warm and dry. Minor venous stasis skin changes on LLE below the knee. LLE incision c/d/i. HEAD: Normocephalic. Atraumatic. MMM. Oropharynx clear. EYES: No scleral icterus. No injection or drainage. EOMI. NECK: Supple, trachea midline. No JVD or lymphadenopathy. CARDIOVASCULAR: Regular rate and rhythm without murmurs, gallops, or rubs. Left DP and PT pulses are 2+ RESPIRATORY: Breath sounds equal bilaterally. No accessory muscle use. No increased WOB. Bibasilar rales present. No wheezing. GASTROINTESTINAL: Abdomen soft, mild to moderate tenderness throughout, nondistended. No guarding. No rebound tenderness. MUSCULOSKELETAL: No cyanosis, or edema. Left medial heel ulcer is clean and dry with 2cm x 2cm eschar, does not appear to have good granulation tissue at the base; surrounding skin does look to be improving, no necrotic tissue is present. No drainage, no surrounding erythema. BACK: Nontender without obvious deformity. <Kandavanam R3,Ephraim - 01/14/19 08:46> - Urinary Catheter Management Indwelling Temp Sensing Catheter Cath placed during this visit: no <Desirae Clark - 01/14/19 09:49> yes <Kandavanam R3,Ephraim - 01/14/19 08:46> Reason for continuing: Other continuation reason <Kandavanam R3,Ephraim - 01/14 08:14> Insertion date: 01/09/19 <Kandavanam R3,Ephraim - 01/14/19 08:14> Insertion time: 08:30 <Oscaram ,Ephraim - 01/14/19 08:14> Assessment and Plan - Assessment (1) Anemia Code(s): D64.9 - Anemia, unspecified Status: Chronic (2) Peripheral artery disease Code(s): I73.9 - Peripheral vascular disease, unspecified Status: Chronic (3) Diabetic ulcer of heel Code(s): E11.621 - Type 2 diabetes mellitus with foot ulcer; L97.409 - Non- pressure chronic ulcer of unspecified heel and midfoot with unspecified severity Status: Chronic (4) Fever Code(s): R50.9 - Fever, unspecified Status: Resolved (5) Hypoxia Code(s): R09.02 - Hypoxemia Status: Resolved (6) Methemoglobinemia Code(s): D74.9 - Methemoglobinemia, unspecified Status: Resolved (7) Complicated UTI (urinary tract infection) Code(s): N39.0 - Urinary tract infection, site not specified Status: Acute (8) Acute on chronic renal failure Code(s): N17.9 - Acute kidney failure, unspecified; N18.9 - Chronic kidney disease, unspecified Status: Acute (9) Generalized weakness Code(s): R53.1 - Weakness Status: Chronic (10) Diabetes mellitus with neuropathy Code(s): E11.40 - Type 2 diabetes mellitus with diabetic neuropathy, unspecified Status: Chronic (11) Hyperkalemia Code(s): E87.5 - Hyperkalemia Status: Resolved (12) Hypertension Code(s): I10 - Essential (primary) hypertension Status: Chronic (13) Nutrition, metabolism, and development symptoms Code(s): R63.8 - Other symptoms and signs concerning food and fluid intake Status: Acute <Desirae Clark - 01/14/19 09:49> (1) Anemia Code(s): D64.9 - Anemia, unspecified Status: Chronic (2) Peripheral artery disease Code(s): I73.9 - Peripheral vascular disease, unspecified Status: Chronic (3) Diabetic ulcer of heel Code(s): E11.621 - Type 2 diabetes mellitus with foot ulcer; L97.409 - Non- pressure chronic ulcer of unspecified heel and midfoot with unspecified severity Status: Chronic (4) Fever Code(s): R50.9 - Fever, unspecified Status: Resolved (5) Hypoxia Code(s): R09.02 - Hypoxemia Status: Resolved (6) Methemoglobinemia Code(s): D74.9 - Methemoglobinemia, unspecified Status: Resolved (7) Complicated UTI (urinary tract infection) Code(s): N39.0 - Urinary tract infection, site not specified Status: Acute (8) Acute on chronic renal failure Code(s): N17.9 - Acute kidney failure, unspecified; N18.9 - Chronic kidney disease, unspecified Status: Acute (9) Generalized weakness Code(s): R53.1 - Weakness Status: Chronic (10) Diabetes mellitus with neuropathy Code(s): E11.40 - Type 2 diabetes mellitus with diabetic neuropathy, unspecified Status: Chronic (11) Hyperkalemia Code(s): E87.5 - Hyperkalemia Status: Resolved (12) Hypertension Code(s): I10 - Essential (primary) hypertension Status: Chronic (13) Nutrition, metabolism, and development symptoms Code(s): R63.8 - Other symptoms and signs concerning food and fluid intake Status: Acute <Kandashaylaam R3,Ephraim - 01/14/19 08:39> - Assessment and Plan 68 year old female with history of PAD s/p bypass in RLE, chronic left medial heel ulcer, T2DM, diabetic peripheral neuropathy, anemia, recurrent UTIs and CKD presented meeting sepsis criteria presumed due to UTI. Additionally, pt presented with hypoxia and O2 sats in the 80s, macrocytic anemia, methemoglobinemia 9.6%, acute on chronic renal failure, and chronic diabetic left heel ulcer. UTI -UCx 01/11 growing enterococcus faecium VRE, sensitivities reviewed -Will start patient on linezolid 600 mg po q12h for 7-day course at this time -Repeat blood cultures are NG2D -[place] catheter removed 01/10 -Tylenol prn Macrocytic anemia -Hgb stable -s/p 2 units PRBCs given on 01/11 -Not suspecting GI bleed at this time, continue to trend H/H, consider further workup if continues to decline -Iron profile suggesting anemia of chronic disease -B12 at the upper limits of normal -Pt states she is non-compliant with iron sulfate treatment due to constipation Hypoxia, dizziness and weakness -Resolved -Consider secondary to methemoglobinemia -O2 sats remain appropriate on supplemental oxygen -Tachycardia resolved -CXR negative -Continue supplemental O2 to maintain O2 sats > 92%, wean as tolerated -Appreciate PT Sepsis 2/2 UTI -Patient met sepsis criteria presumed due to UTI on admission -Urine culture from 01/07 growing 10-50,000 cfus mixed gram positive bj -Repeat UA and urine culture as above -Renal/bladder US w/no evidence of hydronephrosis, but posterior bladder wall slightly thickened Recurrent UTIs -Plan as above -Consider Urology consult or UroGyn consult for further evaluation as an outpatient Methemoglobinemia -Repeat ABG is improved s/p Methylene Blue 50 mg IV -G6PD just over ULN -Stop potential offending drugs: pt was recently on Bactrim (Sulfanomides) and on ASA --Holding home ASA 325mg Acute on chronic renal failure -Cr 2.86 on admission with baseline since March of Cr 1.74 and BUN 64 -Consult nephrology--appreciate recs --IVF discontinued, started on sodium bicarb -Continue to monitor renal indices Diabetes type 2 -A1C on 12/07/18 was 5.4 -Accuchecks -Low SSI Hypertension -Continue Losartan PAD with LLE Chronic diabetic ulcer -Consult Dr. Mauricio, vascular surgery--appreciate recs --s/p left femoral popliteal bypass surgery on 01/09 --Started on aspirin daily --Transition to medium/high intensity statin --Wound vac to be removed post-op day 7 -Continue home [place] 10/325 mg q6h prn pain -Foot x-ray wnl -OOB to chair TID, continue PT Peripheral neuropathy 2/2 diabetes -Continue home Lyrica 75 mg daily Hyperkalemia -Resolved -Likely due to metabolic acidosis and acute kidney injury -EKG on admission in NSR Constipation - Resolved - Constipation protocol - Continue collin-colace 2 tabs po bid FEN/GI/PPx: -Fluids: per PO -Electrolytes: Continue to monitor -Nutrition: heart healthy diet -GI ppx: continue home protonix -DVT ppx: b/l SCDs <Kashmir Mullins,Ephraim - 01/14/19 08:46> - Attending Attestation The exam, history, and the medical decision-making described in the above note were completed with the assistance of the resident physician. I reviewed and agree with the findings presented. I attest that I had a domy-ng-nuit encounter with the patient on the same day, and personally performed and documented my assessment and findings in the medical record. she is very eager to go to rehab. she is wanting to get up and walk. unfortunately her urine culture showed enterococcus which she had in September when she was treated with linezolid. she can take this po at her SNF, hopefully. the best thing for her clinically is to get her rehab and surgically she is doing very well. <Desirae Clark - 01/14/19 09:49> <Ephraim Lambert - Last Filed: 01/14/19 08:39> (3) Diabetic ulcer of heel Qualifiers: Diabetes mellitus type: type 2 Laterality: left Non-pressure ulcer stage: unspecified non-pressure ulcer stage Qualified Code(s): E11.621 - Type 2 diabetes mellitus with foot ulcer; L97.429 - Non-pressure chronic ulcer of left heel and midfoot with unspecified severity (8) Acute on chronic renal failure Qualifiers: Chronic kidney disease stage: stage 3 (moderate) (10) Diabetes mellitus with neuropathy Qualifiers: Diabetes mellitus type: type 2 Diabetes mellitus terminal supervisor insulin use: with prison use Qualified Code(s): E11.40 - Type 2 diabetes mellitus with diabetic neuropathy, unspecified; Z79.4 - detention (current) use of insulin <Desirae Clark - Last Filed: 01/14/19 09:49> (3) Diabetic ulcer of heel Qualifiers: Diabetes mellitus type: type 2 Laterality: left Non-pressure ulcer stage: unspecified non-pressure ulcer stage Qualified Code(s): E11.621 - Type 2 diabetes mellitus with foot ulcer; L97.429 - Non-pressure chronic ulcer of left heel and midfoot with unspecified severity (8) Acute on chronic renal failure Qualifiers: Chronic kidney disease stage: stage 3 (moderate) (10) Diabetes mellitus with neuropathy Qualifiers: Diabetes mellitus type: type 2 Diabetes mellitus prison insulin use: with prison use Qualified Code(s): E11.40 - Type 2 diabetes mellitus with diabetic neuropathy, unspecified; Z79.4 - detention (current) use of insulin <Ephraim Lambert - Last Filed: 01/14/19 08:39> (3) Diabetic ulcer of heel Qualifiers: Diabetes mellitus type: type 2 Laterality: left Non-pressure ulcer stage: unspecified non-pressure ulcer stage Qualified Code(s): E11.621 - Type 2 diabetes mellitus with foot ulcer; L97.429 - Non-pressure chronic ulcer of left heel and midfoot with unspecified severity (8) Acute on chronic renal failure Qualifiers: Chronic kidney disease stage: stage 3 (moderate) (10) Diabetes mellitus with neuropathy Qualifiers: Diabetes mellitus type: type 2 Diabetes mellitus prison insulin use: with prison use Qualified Code(s): E11.40 - Type 2 diabetes mellitus with diabetic neuropathy, unspecified; Z79.4 - detention (current) use of insulin <Desirae Clark - Last Filed: 01/14/19 09:49> (3) Diabetic ulcer of heel Qualifiers: Diabetes mellitus type: type 2 Laterality: left Non-pressure ulcer stage: unspecified non-pressure ulcer stage Qualified Code(s): E11.621 - Type 2 diabetes mellitus with foot ulcer; L97.429 - Non-pressure chronic ulcer of left heel and midfoot with unspecified severity (8) Acute on chronic renal failure Qualifiers: Chronic kidney disease stage: stage 3 (moderate) (10) Diabetes mellitus with neuropathy Qualifiers: Diabetes mellitus type: type 2 Diabetes mellitus prison insulin use: with prison use Qualified Code(s): E11.40 - Type 2 diabetes mellitus with diabetic neuropathy, unspecified; Z79.4 - detention (current) use of insulin
[2019-01-14] MEDS: Ascorbic Acid 500 MG Tablet PO SCH (08:23)
[2019-01-14] MEDS: Sodium Bicarbonate 650 MG Tablet PO SCH (08:24)
[2019-01-14] MEDS: Insulin NovoLOG Aspart Correctional Sugar Inj SQ SCH ×2 (08:24→12:21)
[2019-01-14] MEDS: Pregabalin 75 MG Capsule PO SCH (08:24)
[2019-01-14] MEDS: Aspirin 325 MG Tablet PO SCH (08:24)
[2019-01-14] MEDS: Senna/Docusate Sodium 8.6/50 MG Tablet PO SCH (08:25)
[2019-01-14] MEDS: Collagenase Oint 30 GM Tube TOPICAL SCH (08:25)
[2019-01-14] MEDS ORDERED: Linezolid 600 MG Tablet PO SCH (09:00)
[2019-01-14 09:23] LABS: Baso # (Auto) 0.1 th/mm3 (0.0-0.2); Baso % (Auto) 0.7 % (0.0-2.0); Eos # (Auto) 0.9 th/mm3 (0.0-0.4); Eos % (Auto) 7.6 % (0.0-4.0); Hematocrit 28.8 % (35.0-46.0); Hemoglobin 9.3 gm/dL (11.6-15.3); Lymph # (Auto) 2.4 th/mm3 (1.0-4.8); Lymph % (Auto) 21.1 % (9.0-44.0); Mean Corpuscular HGB Conc 32.4 % (32.0-36.0); Mean Corpuscular Hemoglobin 31.1 pg (27.0-34.0); Mean Platelet Volume 7.8 fL (7.0-11.0); Mono # (Auto) 1.1 th/mm3 (0.0-0.9); Mono % (Auto) 9.5 % (0.0-8.0); Neut % (Auto) 61.1 % (16.0-70.0); Platelet Count 399 th/mm3 (150-450); Red Cell Distribution Width 16.3 % (11.6-17.2); White Blood Count 11.4 th/mm3 (4.0-11.0)
--- NOTE | 2019-01-14 20:31 | P.PNNP ---
Subjective Interval history: Patient seen in the afternoon, no SOB, feeling better. Physical Exam Vital signs: Vital Signs 01/13/19 21:41 01/13/19 23:55 01/14/19 00:00 Temperature 98.9 F Pulse Rate 70 82 Respiratory Rate 18 Blood Pressure 131/60 147/71 H Pulse Oximetry 97 01/14/19 04:00 01/14/19 08:00 01/14/19 12:00 Temperature 100.5 F H 97.9 F 97.6 F Pulse Rate 80 81 69 Respiratory Rate 18 16 17 Blood Pressure 114/55 L 96/54 L 123/62 Pulse Oximetry 94 L 93 L 96 Intake & Output 01/14/19 01/14/19 01/15/19 06:59 18:59 06:59 Intake Total 240 / 240 Balance 240 / 240 Weight 69.3 kg Intake: Oral 240 / 240 Other: Mode Setting Left Groin Continuous Continuous # Voids 3 Narrative: GENERAL: 68 year old female lying flat in bed in [facility] SKIN: Warm and dry. Minor venous stasis skin changes on LLE below the knee. LLE incision c/d/i. HEAD: Normocephalic. Atraumatic. MMM. Oropharynx clear. EYES: No scleral icterus. No injection or drainage. EOMI. NECK: Supple, trachea midline. No JVD or lymphadenopathy. CARDIOVASCULAR: Regular rate and rhythm without murmurs, gallops, or rubs. Left DP and PT pulses are 2+ RESPIRATORY: Breath sounds equal bilaterally. No accessory muscle use. No increased WOB. Bibasilar rales present. No wheezing. GASTROINTESTINAL: Abdomen soft, mild to moderate tenderness throughout, nondistended. No guarding. No rebound tenderness. MUSCULOSKELETAL: No cyanosis, or edema. Left medial heel ulcer is clean and dry with 2cm x 2cm eschar, does not appear to have good granulation tissue at the base; surrounding skin does look to be improving, no necrotic tissue is present. No drainage, no surrounding erythema. BACK: Nontender without obvious deformity. - Urinary Catheter Management Indwelling Temp Sensing Catheter Cath placed during this visit: yes Reason for continuing: Other continuation reason Insertion date: 01/09/19 Insertion time: 08:30 Assessment and Plan - Assessment (1) Acute on chronic renal failure Code(s): N17.9 - Acute kidney failure, unspecified; N18.9 - Chronic kidney disease, unspecified Status: Acute Qualifiers: Chronic kidney disease stage: stage 3 (moderate) Plan: Patient had UTI and was on Bactrim for 10 days which could have caused acute worsening. Baseline Creatinine around 1.7-1.8. Current creatinine is 1.99. Renal function appears to be improving. Patient on oral Sodium bicarbonate. Ultrasound of the kidney did not reveal any obstruction or hydronephrosis. Etiology of CKD likely due to diabetic nephropathy. Proteinuria on UA. Monitor fluid and electrolytes. Avoid nephrotoxic agents. Creatinine was 1.9, close to her baseline. Now for D/C [facility]. To follow with Dr. Pan. (2) Diabetes mellitus with neuropathy Code(s): E11.40 - Type 2 diabetes mellitus with diabetic neuropathy, unspecified Status: Chronic Qualifiers: Diabetes mellitus type: type 2 Diabetes mellitus fdc insulin use: with fdc use Qualified Code(s): E11.40 - Type 2 diabetes mellitus with diabetic neuropathy, unspecified; Z79.4 - rn long term care (current) use of insulin Plan: Insulin coverage to maintain blood glucose levels between 140 and 180 while hospitalized. (3) Hypertension Code(s): I10 - Essential (primary) hypertension Status: Chronic Qualifiers: Hypertension type: essential hypertension Qualified Code(s): I10 - Essential (primary) hypertension Plan: On Losartan. Monitor BP. (4) Acute UTI Code(s): N39.0 - Urinary tract infection, site not specified Status: Acute Plan: Ceftriaxone stopped. 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 Consider switching to high intensity statin: Crestor 20 mg PO daily or Lipitor 80 mg PO daily.
--- NOTE | 2019-01-15 11:41 | P.DS ---
Date of admission: 01/07/19 17:44 Primary care physician: Kirit Vega MD, R3 Attending physician on discharge: Desirae Clark Anticipated date of discharge: 01/14/19 Brief History from admission: Ms Cohen is a 68 YO female followed by Dr Vega with PMHx CHF, chronic renal insufficiency, DM type 2, PAD s/p RLE bypass surgery, HTN, peripheral neuropathy , recurrent UTIs (MDR, including pseudomonas) and left heel ulcer who presents with report of feeling weak and dizzy since last month when her most recent UTI began. She was given a course of Bactrim for 5 days followed by another 5 days in which she feels like the frequency and urgency and burning/irritation with urination did not improve. She complains that she has been incontinent as she has not been able to make it to the toilet in time and is feeling some lower pelvic pressure due to the infection. [facility] has been coming by her home and noted her O2 sats decreasing yesterday at 88-90% and then again today O2 sats were decreased from 85-88%. I spoke by phone with Ulciana from [facility] and instructed her to get the patient to the ED if O2 sats could not be improved. She has a painful chronic left heel diabetic ulcer. She is scheduled for vascular bypass surgery on her LLE by Dr Mauricio on Tuesday and is wondering whether she will be able to get that done. She reports Dr Vega took her off of BP meds recently as she did not need them. Her DM has been well controlled also without insulin. She says her most current A1C is 5. PMHx: 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 Anemia Recurrent UTIs including MDR & pseudomonas CHF (congestive heart failure) CRI (chronic renal insufficiency) Cyst of right kidney Diabetes Foramen ovale Gastroparesis HTN (hypertension) Neuropathy PAD (peripheral artery disease) TIA (transient ischemic attack) Weakness PSurgHx: RLE angiogram (1990) Cystoscopy FamHx: Father -DC x2 and CHF, age 69 Mother - Complications from diabetes and ESRD on HD, age 69 SocHx: No tobacco No EtOH No drugs Lives with her in [place] Originally from [facility] but moved down here 28 years ago Allergies as above; consider adding Bactrim to the list Patient update on day of discharge: Per a.m. note: Febrile overnight to 100.5F. The patient reports increased dysuria now and some urinary frequency. States she otherwise feels ok and is eager to continue with physical therapy. States her pain is controlled. Constipation has resolved. Specifically denies CP, dyspnea, cough, abdl pain, drainage from incision site. DS: Diagnosis - Discharge Diagnosis (1) Anemia Status: Chronic (2) Peripheral artery disease Status: Chronic (3) Diabetic ulcer of heel Status: Chronic (4) Fever Status: Resolved (5) Hypoxia Status: Resolved (6) Methemoglobinemia Status: Resolved (7) Complicated UTI (urinary tract infection) Status: Acute (8) Acute on chronic renal failure Status: Resolved (9) Generalized weakness Status: Chronic (10) Diabetes mellitus with neuropathy Status: Chronic (11) Hyperkalemia Status: Resolved (12) Hypertension Status: Chronic (13) Nutrition, metabolism, and development symptoms Status: Acute DS: Medications - Discharge Medications Prescriptions: hydrocodone-acetaminophen [Surry] 1 tab PO Q4HR #18 tab ascorbic acid (vitamin C) [Vitamin C] 1,000 mg PO DAILY #30 tab aspirin 325 mg PO DAILY #60 tab atorvastatin 40 mg PO DAILY #60 tab linezolid [Zyvox] 600 mg PO Q12HR #13 tab losartan [Cozaar] 25 mg PO DAILY #60 tab sennosides-docusate sodium [Senna Plus] 2 tab PO BID #60 tab sodium bicarbonate 650 mg PO BID #60 tab DS: Summary Hospital Course: The patient was started on IV Rocephin for treatment of UTI. Vascular surgery was consulted. Patient went for her left lower extremity bypass surgery as previously scheduled with vascular surgery on 01/09. Her pain was controlled postoperatively. She developed intermittent fevers overnight which prompted repeat blood cultures, urine cultures, repeat chest x-ray. Her repeat blood cultures remained with no growth as did her initial blood culture. Repeat chest x-ray was normal. Her urine culture grew enterococcus PCM VRE and the patient was thus started on Zyvox at 600 mg by mouth twice daily. The patient also developed constipation after her surgery given her opioid medications which easily resolved with laxative therapy. The patient worked with physical therapy postoperatively during her hospital stay. [facility] with continuation of Zyvox for 1 week for treatment of her VRE. She is recommended to follow-up with vascular surgery as well as podiatry given her left medial heel ulcer. A foot x-ray was obtained which did not show any signs of osteomyelitis. - Time Spent with Patient Total time spent providing and/or coordinating discharge services: Greater than 30 minutes - Quality: VTE Deep Vein Thrombosis/Pulmonary Embolism Present on Admission: No Exam Vital signs: Vital Signs 01/14/19 12:00 Temperature 97.6 F Pulse Rate 69 Respiratory Rate 17 Blood Pressure 123/62 Pulse Oximetry 96 Intake & Output 01/14/19 01/15/19 01/15/19 18:59 06:59 18:59 Other: Mode Setting Left Groin Continuous Narrative: GENERAL: 68 year old female lying flat in bed in [facility] SKIN: Warm and dry. Minor venous stasis skin changes on LLE below the knee. LLE incision c/d/i. HEAD: Normocephalic. Atraumatic. MMM. Oropharynx clear. EYES: No scleral icterus. No injection or drainage. EOMI. NECK: Supple, trachea midline. No JVD or lymphadenopathy. CARDIOVASCULAR: Regular rate and rhythm without murmurs, gallops, or rubs. Left DP and PT pulses are 2+ RESPIRATORY: Breath sounds equal bilaterally. No accessory muscle use. No increased WOB. Bibasilar rales present. No wheezing. GASTROINTESTINAL: Abdomen soft, mild to moderate tenderness throughout, nondistended. No guarding. No rebound tenderness. MUSCULOSKELETAL: No cyanosis, or edema. Left medial heel ulcer is clean and dry with 2cm x 2cm eschar, does not appear to have good granulation tissue at the base; surrounding skin does look to be improving, no necrotic tissue is present. No drainage, no surrounding erythema. BACK: Nontender without obvious deformity. Results Procedures completed during hospitalization: Left femoral to below-knee popliteal bypass with cryopreserved vein Labs on day of discharge: Labs from last 24 hours 01/14/19 12:09 POC Glucose 217 H Preliminary micro results at discharge 01/11/19 10:57 Aerobic Blood Culture - Preliminary Blood - Peripheral No growth in 4 days Anaerobic Blood Culture - Preliminary No growth in 4 days 01/11/19 10:42 Aerobic Blood Culture - Preliminary Blood - Peripheral No growth in 4 days Anaerobic Blood Culture - Preliminary No growth in 4 days - Impressions ITS Impressions Abdomen/Bladder Ultrasound 01/07/19 00:00 CONCLUSION: 1. No evidence of hydronephrosis. No evidence of obstruction. The bladder wall posteriorly slightly thickened probably related to underdistention. Chest X-Ray 01/10/19 00:00 CONCLUSION: No acute cardiopulmonary disease. Foot X-Ray 01/11/19 00:00 CONCLUSION: Negative examination Discharge Plan - Discharge Disposition Patient Disposition: 03 Discharge to SNF - Discharge Condition Condition: Stable - Discharge Order Discharge Orders: Discharge Order (Routine); Ordered 01/14/19 Ordered By: Navya Turcios R2 - Discharge Details Anticipated Discharge Date: 01/14/19 - Physicians Team Primary Care Provider: Kirit Barry Attending Provider: Desirae Clark Other Providers: Alejandra Cannon MD ; Daniel Mauricio MD ; [facility] ; Beverly Babcock DPM ; [facility] ; [facility]
== END 2019-01-14 14:38 | DRG 854 ==
LOC: NEPC 14:04 → NEDA 17:44 → N07 19:09
PROVIDERS: ADMIT Family Medicine; ATTEND Family Medicine
PROC: [UNRECOGNIZED PROCEDURE] (2019-01-09 08:04)
CPT/HCPCS: 36430; 36600; 71010; 71020; 71045; 71046; 73650; 76775; 76937; 80048; 80053; 80069; 81001; 82550; 82607; 82728; 82805; 82948; 82955; 82962; 83520; 83540; 83550; 83605; 83735; 83880; 84484; 85025; 85379; 85610; 85730; 86850; 86900; 86901; 86923; 87040; 87077; 87086; 87186; 87275; 87276; 87804; 90765; 93005; 94150; 96365; 97110; 97116; 97163; 97166; 97530; 97535; 99285; J0131; J0696; J1100; J1644; J1650; J1815; J1940; J2270; J2370; J2405; J2704; J2720; J3010; J3370; J7030; J7040; J7050; P9016; Q4145